=== PATIENT | male | born 1965 | race Caucasian/White ===

== ENCOUNTER → 2016-04-11 | Outpatient (CLI) | payer BC ==
[~2016-04-11] MED LIST: ALL300 PO; ATV1 PO; CLC/300 PO; COLC0.6T54 PO; CYAN10002 IM; CYCL10TA6 PO; CYNI1000 IM; DICY10CA12 PO; FAMO20TA9 PO; LPT10 PO; METO25TA56 PO; MORP1INJ INJ; MORP1INJ IT; ONDA4TAB4 PO; ONDA4TAB54 PO; OXYC-57 PO
--- NOTE | 2016-04-11 09:17 | DIAGNOSTIC IMAGING REPORT ---
MRI OF THE RIGHT SHOULDER WITHOUT CONTRAST CLINICAL HISTORY: Right shoulder pain. Evaluate for rotator cuff tear. COMPARISON STUDY: Right shoulder radiographs September 26, 2015. TECHNIQUE: Utilizing a 1.5 Genevieve magnet, multiplanar, multi echo imaging of the right shoulder was performed without intravenous or intra-articular contrast. FINDINGS: Alignment of the right shoulder is anatomic. There is no joint effusion. There is a small amount of fluid within the subacromial/subdeltoid bursa. There is moderate AC joint arthritis with joint space narrowing, osteophytosis and capsular hypertrophy. There is mild glenohumeral joint arthritis. There is tendinopathy with suspected partial thickness tear of the proximal long head of biceps tendon. There is a high-grade partial-thickness tear of distal supraspinatus. There is no tendon retraction or muscular atrophy. There is tendinopathy with a suspected mild partial thickness articular surface tear of distal infraspinatus. Teres minor is intact. There is tendinopathy of subscapularis with no full-thickness tear. There is a small amount of fluid within the subcoracoid bursa. The glenoid labrum is slightly truncated. No definite tear is identified on this nonarthrogram exam. IMPRESSION: 1. High-grade partial-thickness tear of distal supraspinatus. No tendon retraction or muscular atrophy. 2. Tendinopathy with suspected mild partial thickness articular surface tear of distal infraspinous. Tendinopathy of subscapularis. 3. Moderate AC joint arthritis and mild glenohumeral joint arthritis. 4. Suspected partial thickness tear of the proximal long head of the biceps tendon. Electronically signed by: Weston Driver M.D. 04/11/2016 9:15 AM
== END | disposition home or self-care (01) ==
LOC: C.MRIBC 07:58
PROVIDERS: ATTEND Orthopaedic Surgery
DX: S46.811A Strain of other muscles, fascia and tendons at shoulder and upper arm level, right arm, initial encounter (principal); X58.XXXA Exposure to other specified factors, initial encounter; M19.011 Primary osteoarthritis, right shoulder

== ENCOUNTER 2016-05-23 16:30 | Emergency (ER) | payer BC ==
[~2016-05-23] VITALS: Ht 190.5 cm; Wt 106.1 kg
[~2016-05-23 16:30] MED LIST changes: -ALL300 PO; -CLC/300 PO; -CYAN10002 IM; -CYCL10TA6 PO; -CYNI1000 IM; -MORP1INJ INJ; -ONDA4TAB4 PO; -ONDA4TAB54 PO
[2016-05-23 16:32] VITALS: TEMP 36.6; Ht 190.5 cm; Wt 106.1 kg
--- NOTE | 2016-05-23 17:12 | DIAGNOSTIC IMAGING REPORT ---
RIGHT KNEE 3 VIEWS CLINICAL HISTORY: right knee pain, swelling Right pain. Edema. COMPARISON: None DISCUSSION: Very small joint effusion. No significant fat fluid level. Moderate degenerative change all major joint compartments. There is no evidence for soft tissue swelling. IMPRESSION: Generalized degenerative change. Very small joint effusion. No acute bony abnormality. Electronically signed by: Brad Jones M.D. 05/23/2016 5:11 PM Dictated Date/Time: 05/23/2016 5:10 PM
--- NOTE | 2016-05-23 17:25 | EMERGENCY ROOM VISIT NOTE ---
ED Visit Note First contact with patient: 17:15 I have personally evaluated and examined this patient. I agree with assessment and plan of Annette Murillo PA-C. Right knee effusion. No known injury though admits that knee pops back regularly. No warmth, erythema nor pain. Not consistent with septic joint. No evidence DVT. History of septic joint and he notes this is nothing like that. Well connected with ortho and wishes to follow up with primary ortho doc. Discussed symptoms requiring RTED.
--- NOTE | 2016-05-23 17:29 | EMERGENCY ROOM VISIT NOTE ---
ED Visit Note First contact with patient: 16:39 CHIEF COMPLAINT: knee pain HISTORY OF PRESENT ILLNESS: This 51-year-old male patient presents to the emergency department ambulatory complaining of pain and swelling in the right knee. The patient states this has been ongoing for several days. The patient states that he is on his feet all day every day. The patient denies any other injuries besides their knee. The patient admits to swelling but denies bruising. There is pain diffusely over the knee. He states that the knee gives out on him frequently. They rate the pain as sharp and 3/10. The patient states they are able to walk on it. No numbness or tingling. No previous injuries to this knee. No ankle, foot or hip pain. REVIEW OF SYSTEMS: A 6 system review of systems was completed with positives and pertinent negatives listed in the HPI. ALLERGIES: See nursing notes MEDICATIONS: See nursing notes PMH: Hypertension, traumatic brain injury, gout, GERD SOCIAL HISTORY: The patient lives with family. He does not smoke PHYSICAL EXAM: Vital Signs: Reviewed Nurse's notes, vital signs stable. GENERAL : This is a 51-year-old male, no acute distress, but appears in pain, well- developed, well-nourished. MENTAL STATUS: Alert, oriented to person place and time, and cooperative. MUSCULOSKELETAL: The right knee is moderately swollen. There is no ecchymosis. There is moderate joint effusion present. The patient is tender diffusely over the knee. There is no joint line tenderness. The patella does not subluxate. Range of motion is intact. Strength of the quads and hamstrings is 5/5. Ector's is negative. Tavares's and Anterior Drawer tests are negative for obvious laxity. There is no obvious laxity with varus and valgus stressing. The foot and toes are warm and well-perfused. Dorsalis pedis pulse 2+. Sensation to pain and light touch is intact. Capillary refill less than 2 seconds. EMERGENCY DEPARTMENT COURSE: I examined the patient. X-rays of the right knee were reviewed by myself and read by radiology and reveal small joint effusion and arthritic change. There is no erythema, warmth, fever to suggest infection. There is no pain with joint loading. This may be related to a ligamentous injury or potentially secondary to arthritis. The patient sees Dr. Rose. He should contact the office tomorrow to schedule a follow-up appointment for further evaluation and management. An Sandeep wrap was placed on the knee. The patient was discharged home in good condition. The patient was also seen and examined by who agrees with the assessment and treatment plan. RIGHT KNEE 3 VIEWS CLINICAL HISTORY: right knee pain, swelling Right pain. Edema. COMPARISON: None DISCUSSION: Very small joint effusion. No significant fat fluid level. Moderate degenerative change all major joint compartments. There is no evidence for soft tissue swelling. IMPRESSION: Generalized degenerative change. Very small joint effusion. No acute bony abnormality. 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 (5) S/P appendectomy Status: Resolved (6) S/P cholecystectomy Permanent Comment: laparoscopic February 2011 [facility] [place] Status: Resolved (7) S/P exploratory laparotomy Permanent Comment: July 2010 [facility] [place] Status: Resolved (8) S/P gastric bypass Permanent Comment: mike en Y July 2010 [facility] [place] Status: Chronic (9) S/p knee ligament repair Status: Chronic (10) S/p lumbar spine surgery x 2 Status: Resolved Current/Historical Medications Scheduled Allopurinol (Allopurinol), 300 MG PO DAILY Atorvastatin (Atorvastatin Calcium), 10 MG PO DAILY Cyanocobalamin (Vitamin B-12 Inj), 1,000 MCG IM [id number] Cyclobenzaprine Hcl (Flexeril), 10 MG PO TID Dicyclomine Hcl (Dicyclomine Hcl), 10 MG PO QID Famotidine (Pepcid), 20 MG PO DAILY Morphine Sulfate (Morphine Sulfate), Unknown Dose IT UD Scheduled PRN Colchicine (Colchicine), 0.6 MG PO for gout Lorazepam (Lorazepam), 1 MG PO DAILY PRN for Anxiety Ondansetron Tab (Zofran), 4 MG PO TID PRN for Nausea Oxycodone/Acetaminophen 5MG/325MG (Percocet 5MG/325MG), 1 TABLET PO Q4H PRN for Pain Allergies Coded Allergies: Penicillins (Verified Allergy, Severe, SWELLING--HAD KEFLEX WITHOUT PROBLEM MULT TIMES, 12/05/15) SWELLING--HAD KEFLEX WITHOUT PROBLEM MULT TIMES PER DR ROBERTS [id number] ADM--AJ Erythromycin (Verified Allergy, Intermediate, HIVES, 12/05/15) Indomethacin (Verified Allergy, Intermediate, hives, 12/05/15) Ibuprofen (Verified Allergy, Unknown, unknown, 12/05/15) pt Ketorolac Tromethamine (Verified Adverse Reaction, Mild, nausea, 12/05/15) Vancomycin (Verified Adverse Reaction, Mild, OTHER, 12/05/15) Fentanyl (Verified Adverse Reaction, Unknown, did not tolerate per pt & , 12/05/15) Vital Signs Date Time Temp Pulse Resp B/P Pulse Ox O2 Delivery O2 Flow Rate FiO2 05/23/16 17:50 73 16 108/76 97 Room Air 05/23/16 16:32 36.6 91 20 137/77 93 Room Air Departure Information Impression Primary Impression: Knee effusion, right Dispostion Home / Self-Care Condition GOOD Referrals Arya Suarez M.D. (PCP) Arya Do V.,D.O. Patient Instructions ED Effusion Knee, My [facility] Additional Instructions Ice and elevate knee for swelling and pain. Wear sandeep wrap when up and about. Tylenol arthritis according to package instructions for pain. Follow-up with Orthopedics for further evaluation and treatment - call for appointment. Return with any redness, swelling, warmth, fevers
[2016-05-23 17:50] VITALS: BP 108/76; PULSE 73; O2SAT 97
[2016-05-23] MEDS ORDERED: CYAN10002 IM (19:05)
[2016-05-23] MEDS ORDERED: CYCL10TA6 PO (21:04)
[2016-05-23] MEDS ORDERED: ONDA4TAB4 PO (21:05)
[2016-05-23] MEDS ORDERED: ALL300 PO (21:42)
== END 2016-05-23 17:45 | disposition home or self-care (01) ==
LOC: C.EDB 16:31 → C.EDD 17:45
DX: M25.461 Effusion, right knee (principal); F41.9 Anxiety disorder, unspecified; M54.9 Dorsalgia, unspecified; G89.29 Other chronic pain; K21.9 Gastro-esophageal reflux disease without esophagitis; M10.9 Gout, unspecified; K57.92 Diverticulitis of intestine, part unspecified, without perforation or abscess without bleeding; Z87.442 Personal history of urinary calculi; Z98.84 Bariatric surgery status; Z79.899 Other long term (current) drug therapy

== ENCOUNTER 2016-12-26 20:16 | Emergency (ER) | payer OTHER, BC ==
[~2016-12-26] VITALS: Ht 190.5 cm; Wt 103.9 kg
[~2016-12-26 20:16] MED LIST changes: +ALL300 PO; +CYAN10002 IM; +CYCL10TA6 PO; -METO25TA56 PO; +ONDA4TAB4 PO
[2016-12-26 21:30] VITALS: TEMP 36.7; Ht 190.5 cm; Wt 103.9 kg
[2016-12-26] MEDS ORDERED: OXYCODONE/ACETAMINOPHEN 5-325 TAB PO ONE (22:45)
[2016-12-26] MEDS ORDERED: ONDA4TAB54 PO (23:08)
[2016-12-26] MEDS ORDERED: MORP1INJ INJ (23:08)
[2016-12-26] MEDS ORDERED: CYNI1000 IM (23:08)
--- NOTE | 2016-12-26 23:57 | EMERGENCY ROOM VISIT NOTE ---
History Report prepared by Tatiana: Gab Ervin Under the Supervision of: Dr. Claire Castaneda D.O. First contact with patient: 22:25 Chief Complaint: BACK PAIN Stated Complaint: BACK PAIN- WC History of Present Illness The patient is a 51 year old male who presents to the Emergency Room with complaints of constant back pain beginning 7 hours ago. He currently rates his discomfort a 5/10 in severity. The patient states that he stepped backwards and his right foot caught a tree root. He reports that he fell flat on his back downhill. The patient notes that he has a history of five back surgeries with several metal implants. He denies mental implants to his neck. The patient states that he also has a morphine pump in place. He reports that he has had it for several years, and it has not been changed. The patient notes that he has Percocet in the event that he needs more medication, but he has not taken anything extra for his current discomfort. He states that when he landed, he was extremely short of breath, and the sides of his neck felt tight. The patient reports that he was able to ambulate after his son helped him up. He denies hitting his head, abdominal pain around his pump, nausea, and numbness weakness in legs. Source of History: patient Onset: seven hours ago Position: back Symptom Intensity: 5/10 Timing: constant Associated Symptoms: + neck pain (tightness), + SOB, No nausea, No abdominal pain, No weakness, No numbness Note: Denies: hitting head Review of Systems See HPI for pertinent positives & negatives. A total of 10 systems reviewed and were otherwise negative. 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 (5) S/P appendectomy (6) S/P cholecystectomy (7) S/P exploratory laparotomy (8) S/P gastric bypass (9) S/p knee ligament repair (10) S/p lumbar spine surgery x 2 Family History Cardiac disorder MOTHER Diabetes mellitus FATHER MOTHER Heart disease Hypertension FATHER MOTHER Kidney disease Kidney stones Social History Smoking Status: Never Smoker Alcohol Use: occasionally Marital Status: Housing Status: lives with family Occupation Status: disabled Current/Historical Medications Scheduled Allopurinol (Allopurinol), 300 MG PO DAILY Atorvastatin (Atorvastatin Calcium), 10 MG PO DAILY Cyanocobalamin (Cyanocobalamin), 1,000 MCG IM Q3MO Cyclobenzaprine Hcl (Flexeril), 10 MG PO TID Dicyclomine Hcl (Dicyclomine Hcl), 10 MG PO QID Famotidine (Pepcid), 20 MG PO DAILY Morphine Sulfate (Morphine Sulfate), Unknown Dose INJ DIRECTED Scheduled PRN Colchicine (Colchicine), 0.6 MG PO for gout Lorazepam (Lorazepam), 1 MG PO DAILY PRN for Anxiety Ondansetron (Ondansetron HCl), 4 MG PO TID PRN for Nausea or Vomiting Oxycodone/Acetaminophen 5MG/325MG (Percocet 5MG/325MG), 1 TABLET PO Q4H PRN for Pain Allergies Coded Allergies: Penicillins (Verified Allergy, Severe, SWELLING--HAD KEFLEX WITHOUT PROBLEM MULT TIMES, 12/26/16) SWELLING--HAD KEFLEX WITHOUT PROBLEM MULT TIMES PER DR ROBERTS [id number] ADM--AJ Erythromycin (Verified Allergy, Intermediate, HIVES, 12/26/16) Indomethacin (Verified Allergy, Intermediate, hives, 12/26/16) Ibuprofen (Verified Allergy, Unknown, unknown, 12/26/16) pt Ketorolac Tromethamine (Verified Adverse Reaction, Mild, nausea, 12/26/16) Vancomycin (Verified Adverse Reaction, Mild, OTHER, 12/26/16) Fentanyl (Verified Adverse Reaction, Unknown, did not tolerate per pt & , 12/26/16) Physical Exam Vital Signs Date Time Temp Pulse Resp B/P (MAP) Pulse Ox O2 Delivery O2 Flow Rate FiO2 12/27/16 00:19 61 17 129/76 99 12/26/16 23:13 62 18 128/71 100 Room Air 12/26/16 21:30 36.7 73 20 136/82 100 Room Air Physical Exam HEENT: Head - normocephalic and atraumatic Pupils are equal, round, and reactive to light. Extraocular eye muscles are intact, and sclera are anicteric. Nose - moist nasal mucosa without discharge. Mouth - moist buccal mucosa. Oropharynx is nonerythematous and there is no tonsillar exudate or edema noted. Neck: Supple; no JVD, nuchal rigidity, cervical lymphadenopathy. Heart: Regular rate and rhythm. There is a normal S1 and S2 with no murmurs, clicks, or gallops appreciated. Lungs: Clear to auscultation bilaterally with no wheezes, rales, or rhonchi. Abdomen: Soft, completely nontender, nondistended, with good bowel sounds. There are no palpable pulsatile masses or hepatosplenomegaly. There is no guarding, rigidity, or rebound noted. Back: Surgical incision appears normal, no specific tenderness to palpation. Extremities: No evidence of cyanosis, clubbing, or edema. There are easily palpable peripheral pulses. Skin: warm and dry with good turgor and no rashes. Medical Decision & Procedures ER Provider Diagnostic Interpretation: CT results as stated below per my review and radiologist interpretation: CT T Spine: No acute fracture. Hardware in the lumbar spine. Degenerative changes in spine. Nephrolithiasis. Cholecystectomy Gastric Bypass. Old granulomatous disease. Spinal catheter/lead. Radiologist: Tory Lanier MD Study ready at 2311 and initial results transmitted at 1969. Medications Administered Medications (Trade) Dose Ordered Sig/Antoinette Route Start Time Stop Time Status Last Admin Dose Admin Oxycodone/ Acetaminophen (Percocet 5-325mg Tab) 2 tab NOW ONCE PO 12/26/16 22:45 12/26/16 22:46 DC 12/26/16 22:43 2 TAB Procedure 2245: Ordered Oxycodone/Acetaminophen 2 tab PO ED Course 2225: Past medical records reviewed. The patient was evaluated in room A12B. A complete history and physical exam was performed. 224: Ordered Oxycodone/Acetaminophen 2 tab PO. The patient went for CT scanning of the thoracic spine as described above. 0005: Upon reevaluation, the patient is resting and only felt slightly better with the Percocet. He states that he does not want anything else for pain. I discussed findings and results with him. He verbalized agreement of the treatment plan. The patient was discharged home. Medical Decision The patient is a 51 year old male who presents to the ED with back pain. Differential diagnosis includes dislodged intrathecal pump, thoracic strain, thoracic spinal fracture. This is a 51 -year-old male patient with a long-standing history of back problems and multiple surgeries. Unfortunately, he suffered a fall backwards onto the back and is now having moderate discomfort. The patient's is concerned that his intrathecal pain pump may have been dislodged as a result of the fall. CT scan of the thoracic spine was essentially unremarkable. Head Trauma GCS Score: 15 Impression Primary Impression: Fall Additional Impression: Mid back pain Scribe Attestation The scribe's documentation has been prepared under my direction and personally reviewed by me in its entirety. I confirm that the note above accurately reflects all work, treatment, procedures, and medical decision making performed by me. Departure Information Dispostion Home / Self-Care Referrals Arya Suarez M.D. (PCP) Forms HOME CARE DOCUMENTATION FORM, IMPORTANT VISIT INFORMATION Patient Instructions My [facility] Additional Instructions Rest. You will be sore. Use percocet as directed. Follow up with docs in [facility] if pain persists Problem Qualifiers Primary Impression: Fall Encounter type: initial encounter Qualified Codes: W19.XXXA - Unspecified fall, initial encounter
[2016-12-27 00:19] VITALS: BP 129/76; PULSE 61; O2SAT 99
--- NOTE | 2016-12-27 08:38 | DIAGNOSTIC IMAGING REPORT ---
CT SCAN OF THE THORACIC SPINE WITHOUT IV CONTRAST CLINICAL HISTORY: Trauma. Intrathecal pump catheter. COMPARISON STUDY: CT scan of the thoracic spine dated 07/14/2014. TECHNIQUE: CT scan of the thoracic spine is performed from the lower cervical spine to the upper lumbar spine. Images are reviewed in the axial, sagittal, and coronal planes. IV contrast was not administered for this examination. A dose lowering technique was utilized adhering to the principles of ALARA. CT DOSE: 1096.25 mGy.cm FINDINGS: The skeletal structures are osteopenic. Vertebral body height and alignment are maintained throughout the lumbar spine. There is no evidence of acute fracture or malalignment. The transverse and spinous processes appear intact. Flowing anterior osteophytes are seen in the mid to lower thoracic region. There is a chronic compression deformity of L1. Fusion hardware in the lumbar spine is partially imaged. No lytic or blastic lesions are identified. The visualized posterior ribs appear intact. Intervertebral disc spaces appear maintained. There is no evidence of large disc herniation. Posterior disc bulges are suggested at T1-T2, T4-T5, T5-T6, T6-T7, and T7-T8. There is no CT evidence of high-grade central canal stenosis. An intrathecal catheter is partially visualized. This enters the central canal posteriorly on the left at the level of L1 and courses superiorly to the level of T10. The catheter is intact as visualized. The paraspinous soft tissues are normal as imaged. Cholecystectomy clips are noted and postoperative changes seen in the stomach. There is a tiny hiatal hernia. Bilateral nonobstructing renal calculi are identified. There is a calcified splenic granuloma. Numerous calcified pulmonary granulomas are identified. The lung parenchyma is otherwise clear as imaged. The heart is enlarged. IMPRESSION: 1. There is no evidence of fracture or malalignment involving the thoracic spine. 2. Osteopenia and mild degenerative change as above. 3. An intrathecal catheter is again noted and detailed above. The catheter is intact as visualized. 4. Numerous bilateral nonobstructing renal calculi are identified. Dictated: 12/27/2016 7:18 AM Transcribed: 12/27/2016 8:44 AM [facility] Electronically signed by: Tamir Brunson M.D. 12/27/2016 8:51 AM Dictated Date/Time: 12/27/2016 7:18 AM
== END 2016-12-27 00:19 | disposition home or self-care (01) ==
LOC: C.EDB 20:17 → C.EDA 12-27 00:19
DX: M54.6 Pain in thoracic spine (principal); M54.2 Cervicalgia; R06.02 Shortness of breath; F41.9 Anxiety disorder, unspecified; I10 Essential (primary) hypertension; K21.9 Gastro-esophageal reflux disease without esophagitis; Z79.899 Other long term (current) drug therapy; Z97.8 Presence of other specified devices; Z87.19 Personal history of other diseases of the digestive system; Z87.442 Personal history of urinary calculi; W01.0XXA Fall on same level from slipping, tripping and stumbling without subsequent striking against object, initial encounter; Z82.49 Family history of ischemic heart disease and other diseases of the circulatory system; Z83.3 Family history of diabetes mellitus; Z84.1 Family history of disorders of kidney and ureter

== ENCOUNTER 2017-02-03 06:55 | Emergency (ER) | payer BC, OTHER ==
[~2017-02-03] VITALS: Ht 190.5 cm; Wt 103.9 kg
[~2017-02-03 06:55] MED LIST changes: -CYAN10002 IM; +CYNI1000 IM; +MORP1INJ INJ; -MORP1INJ IT; -ONDA4TAB4 PO; +ONDA4TAB54 PO
[2017-02-03 07:00] VITALS: TEMP 36.8; Ht 190.5 cm; Wt 103.9 kg
[2017-02-03] MEDS ORDERED: LIDOCAINE HCL 2% JELLY 30 ML TUBE EXT ONE (07:29)
[2017-02-03] MEDS ORDERED: SODIUM CHLORIDE 0.9% 1000ML 1,000 ML IV STA (07:30)
[2017-02-03] MEDS ORDERED: LIDOCAINE HCL 2% JELLY 30 ML TUBE EXT STA (07:30)
--- NOTE | 2017-02-03 07:33 | EMERGENCY ROOM VISIT NOTE ---
History Report prepared by Tatiana: Danya Baumann Under the Supervision of: Dr. Jillian Loving M.D. First contact with patient: 07:05 Chief Complaint: KIDNEY STONE Stated Complaint: KIDNEY STONE, UNABLE TO URINATE History of Present Illness The patient is a 51 year old male who presents to the Emergency Room with complaints of persistent difficulty urinating that began this morning. He currently rates his discomfort as a 6/10 in severity. The patient states that he has a history of kidney stones, noting that he last passed several a few months ago. He states that yesterday he passed three stones without pain. The patient states that this morning he developed discomfort in his penis and notes that it feels similar to his previous kidney stones. He states that it feels like he has a stone stuck in his penis and states that it feels like his bladder is full. The patient's states that the patient has a history of a stent to help pass his stones. She states that the patient follows with [facility]. Source of History: patient, spouse/significant other () Onset: this morning Position: other (global) Symptom Intensity: 6/10 Quality: other (difficulty urinating) Timing: other (persistent) Review of Systems See HPI for pertinent positives & negatives. A total of 10 systems reviewed and were otherwise negative. 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 (5) S/P appendectomy (6) S/P cholecystectomy (7) S/P exploratory laparotomy (8) S/P gastric bypass (9) S/p knee ligament repair (10) S/p lumbar spine surgery x 2 Family History Cardiac disorder MOTHER Diabetes mellitus FATHER MOTHER Heart disease Hypertension FATHER MOTHER Kidney disease Kidney stones Social History Smoking Status: Never Smoker Alcohol Use: occasionally Marital Status: Housing Status: lives with family Occupation Status: disabled Current/Historical Medications Scheduled Allopurinol (Allopurinol), 300 MG PO DAILY Atorvastatin (Atorvastatin Calcium), 10 MG PO DAILY Clindamycin HCl (Clindamycin HCl), 300 MG PO TID Cyanocobalamin (Cyanocobalamin), 1,000 MCG IM Q3MO Cyclobenzaprine Hcl (Flexeril), 10 MG PO TID Dicyclomine Hcl (Dicyclomine Hcl), 10 MG PO QID Famotidine (Pepcid), 20 MG PO DAILY Morphine Sulfate (Morphine Sulfate), Unknown Dose INJ DIRECTED Scheduled PRN Colchicine (Colchicine), 0.6 MG PO for gout Lorazepam (Lorazepam), 1 MG PO DAILY PRN for Anxiety Ondansetron (Ondansetron HCl), 4 MG PO TID PRN for Nausea or Vomiting Oxycodone/Acetaminophen 5MG/325MG (Percocet 5MG/325MG), 1 TABLET PO Q4H PRN for Pain Allergies Coded Allergies: Penicillins (Verified Allergy, Severe, SWELLING--HAD KEFLEX WITHOUT PROBLEM MULT TIMES, 02/03/17) SWELLING--HAD KEFLEX WITHOUT PROBLEM MULT TIMES PER DR ROBERTS [id number] ADM--AJ Erythromycin (Verified Allergy, Intermediate, HIVES, 02/03/17) Indomethacin (Verified Allergy, Intermediate, hives, 02/03/17) Ibuprofen (Verified Allergy, Unknown, unknown, 02/03/17) pt Ketorolac Tromethamine (Verified Adverse Reaction, Mild, nausea, 02/03/17) Vancomycin (Verified Adverse Reaction, Mild, OTHER, 02/03/17) Fentanyl (Verified Adverse Reaction, Unknown, did not tolerate per pt & , 02/03/17) Physical Exam Vital Signs Date Time Temp Pulse Resp B/P (MAP) Pulse Ox O2 Delivery O2 Flow Rate FiO2 02/03/17 10:46 69 12 131/78 97 02/03/17 09:05 58 16 143/79 99 02/03/17 07:00 36.8 79 18 150/85 98 Room Air Physical Exam Vital signs reviewed. General: Well-appearing male, in no significant distress. HEENT: No scleral icterus, PERRLA, neck supple. Atraumatic. Cardiovascular: Regular rate and rhythm, no extra sounds. Pulmonary: Clear to auscultation bilaterally, normal work of breathing. Abdomen: Soft, nontender, nondistended, positive bowel sounds. : Palpable stone approximately 2 cm from the tip of the penis, tender. Musculoskeletal: Atraumatic, no peripheral edema. Neurologic: Patient awake alert and oriented x 3, full strength in all 4 extremities. Cranial nerves 2 through 12 grossly intact. Skin: Warm, dry, no rash Medical Decision & Procedures ER Provider Diagnostic Interpretation: Radiology results as stated below per my review and radiologist interpretation: KUB CLINICAL HISTORY: Flank pain. Dysuria. FINDINGS: 2 AP supine abdominal radiographs are correlated with abdominal CT dated 10/15/2015. There is a nonobstructed abdominal bowel gas pattern. Moderate constipation is observed. There are numerous bilateral nonobstructing renal calculi. Stones measure up to 12 mm. There is no radiographic evidence of ureteral stone. Cholecystectomy clips are identified in the right upper quadrant. A neurostimulator device projects over the left lower abdomen. The skeletal structures are osteopenic. There is evidence of lumbar spinal fusion. IMPRESSION: 1. Nonobstructed abdominal bowel gas pattern noting moderate constipation. 2. Bilateral nonobstructing renal calculi are identified. There is no radiographic evidence of ureteral stone. Electronically signed by: Tamir Brunson M.D. 02/03/2017 8:23 AM Dictated Date/Time: 02/03/2017 8:19 AM EXAMINATION: RENAL ULTRASOUND CLINICAL HISTORY: Difficulty urinating, flank pain, penile pain. COMPARISON STUDY: CT scan dated 10/15/2015 FINDINGS: The right kidney measures 12.2 cm. The left kidney measures 10.9 cm. There is no evidence of hydronephrosis. There are multiple bilateral echogenic shadowing foci consistent with calculi. The largest measures 12 mm the right and 10 mm and the left. No bladder abnormalities are visualized. Bilateral ureteral jets were visualized. IMPRESSION : 1. Bilateral nephrolithiasis 2. No evidence of hydronephrosis Electronically signed by: Ismael Doran M.D. 02/03/2017 8:36 AM Dictated Date/Time: 02/03/2017 8:35 AM Laboratory Results 02/03/17 07:15 Red Blood Count 4.07, Mean Corpuscular Volume 83.5, Mean Corpuscular Hemoglobin 27.0, Mean Corpuscular Hemoglobin Concent 32.4, Mean Platelet Volume 9.8, Neutrophils (%) (Auto) 45.8, Lymphocytes (%) (Auto) 38.6, Monocytes (%) (Auto) 10.1, Eosinophils (%) (Auto) 4.9, Basophils (%) (Auto) 0.4, Neutrophils # (Auto ) 2.23, Lymphocytes # (Auto) 1.88, Monocytes # (Auto) 0.49, Eosinophils # (Auto ) 0.24, Basophils # (Auto) 0.02 02/03/17 07:15 Test 02/03/17 07:15 02/03/17 09:10 White Blood Count 4.87 K/uL (4.8-10.8) Red Blood Count 4.07 M/uL (4.7-6.1) Hemoglobin 11.0 g/dL (14.0-18.0) Hematocrit 34.0 % (42-52) Mean Corpuscular Volume 83.5 fL (80-100) Mean Corpuscular Hemoglobin 27.0 pg (25-34) Mean Corpuscular Hemoglobin Concent 32.4 g/dl (32-36) Platelet Count 208 K/uL (130-400) Mean Platelet Volume 9.8 fL (7.4-10.4) Neutrophils (%) (Auto) 45.8 % Lymphocytes (%) (Auto) 38.6 % Monocytes (%) (Auto) 10.1 % Eosinophils (%) (Auto) 4.9 % Basophils (%) (Auto) 0.4 % Neutrophils # (Auto) 2.23 K/uL (1.4-6.5) Lymphocytes # (Auto) 1.88 K/uL (1.2-3.4) Monocytes # (Auto) 0.49 K/uL (0.11-0.59) Eosinophils # (Auto) 0.24 K/uL (0-0.5) Basophils # (Auto) 0.02 K/uL (0-0.2) RDW Standard Deviation 47.6 fL (36.4-46.3) RDW Coefficient of Variation 15.4 % (11.5-14.5) Immature Granulocyte % (Auto) 0.2 % Immature Granulocyte # (Auto) 0.01 K/uL (0.00-0.02) Anion Gap 7.0 mmol/L (3-11) Est Creatinine Clear Calc Drug Dose 118.6 ml/min Estimated GFR () 106.9 Estimated GFR (Non- 92.2 BUN/Creatinine Ratio 10.2 (10-20) Calcium Level 9.0 mg/dl (8.5-10.1) Total Bilirubin 0.7 mg/dl (0.2-1) Direct Bilirubin 0.2 mg/dl (0-0.2) Aspartate Amino Transf (AST/SGOT) 23 U/L (15-37) Alanine Aminotransferase (ALT/SGPT) 16 U/L (12-78) Alkaline Phosphatase 122 U/L (45-117) Total Protein 7.5 gm/dl (6.4-8.2) Albumin 4.0 gm/dl (3.4-5.0) Urine Color YELLOW Urine Appearance CLEAR (CLEAR) Urine pH 7.0 (4.5-7.5) Urine Specific Parsons 1.011 (1.000-1.030) Urine Protein NEG (NEG) Urine Glucose (UA) NEG (NEG) Urine Ketones NEG (NEG) Urine Occult Blood 2+ (NEG) Urine Nitrite NEG (NEG) Urine Bilirubin NEG (NEG) Urine Urobilinogen NEG (NEG) Urine Leukocyte Esterase NEG (NEG) Urine WBC (Auto) 1-5 /hpf (0-5) Urine RBC (Auto) 10-30 /hpf (0-4) Urine Hyaline Casts (Auto) 0 /lpf (0-5) Urine Epithelial Cells (Auto) 0-5 /lpf (0-5) Urine Bacteria (Auto) NEG (NEG) Laboratory results per my review. Medications Administered Medications (Trade) Dose Ordered Sig/Antoinette Route Start Time Stop Time Status Last Admin Dose Admin Lidocaine HCl (Xylocaine Jelly 2%) 30 ml STMy Fashion Database-MED ONCE EXT 02/03/17 07:29 02/03/17 07:30 DC 02/03/17 07:29 30 ML Sodium Chloride 1,000 ml @ 999 mls/hr Q1H1M STAT IV 02/03/17 07:30 02/03/17 08:30 DC 02/03/17 07:30 999 MLS/HR Morphine Sulfate (MoRPHine SULFATE INJ) 4 mg NOW STAT IV 02/03/17 09:22 02/03/17 09:24 DC 02/03/17 09:38 4 MG Ondansetron HCl (Zofran Inj) 4 mg NOW STAT IV 02/03/17 09:22 02/03/17 09:24 DC 02/03/17 09:38 4 MG ED Course 0718: Past medical records reviewed. The patient was evaluated in room A10. A complete history and physical examination was performed. 0729: Ordered Lidocaine HCl 30 ml EXT, Sodium Chloride 1000 ml @ 999 mls/hr IV. 0922: Ordered Zofran Inj 4 mg IV, Morphine Sulfate 4 mg IV. 1047: I reevaluated the patient and he is resting comfortably. I discussed the exam findings with him and I discussed the treatment plan. He verbalized complete understanding and agreement. He is ready to go home. Medical Decision The patient is a 51 year old male who presents to the ED with complaints of difficulty urinating. Differentials include UTI, urinary obstruction, retained stone, trauma This patient was evaluated and appeared to be in no significant distress. IV access was obtained and laboratory work was drawn. The patient was placed on the hr recruiter and found be in a normal sinus rhythm. He was hydrated with normal saline solution. The patient was given lidocaine jelly for the stone that he believes is in the penis. The patient was able to urinate without significant difficulty. Laboratory work is fairly unrevealing. Imaging studies reveal renal calculi without evidence of obstruction. Patient was advised to use ibuprofen as needed for pain. He will continue to drink plenty of fluids. He will follow-up with urology for continued symptoms. He will return to the ER for worsening of symptoms or any medical concerns. Medication Reconcilliation Current Medication List: was personally reviewed by me Blood Pressure Screening Patient's blood pressure: Elevated blood pressure Blood pressure disposition: Elevated BP felt to be situational, Did not require urgent referral Impression Primary Impression: Ureteral colic Additional Impression: Kidney stone Scribe Attestation The scribe's documentation has been prepared under my direction and personally reviewed by me in its entirety. I confirm that the note above accurately reflects all work, treatment, procedures, and medical decision making performed by me. Departure Information Dispostion Home / Self-Care Referrals Arya Suarez M.D. (PCP) Olena Cardoso MD Forms HOME CARE DOCUMENTATION FORM, IMPORTANT VISIT INFORMATION Patient Instructions My [facility] Additional Instructions Diagnosis: Kidney stone, ureteral colic Please drink plenty of clear fluids. Follow-up with your primary care physician this week for reevaluation. Consider follow-up with Dr. Cardoso of urology, please see information below. Ibuprofen 600 mg every 6 hours as needed for pain with food. Return to the emergency department for worsening of symptoms or any medical concerns. Problem Qualifiers
[2017-02-03 07:36] LABS: BASO % 0.4 %; BASO ABS # 0.02 K/uL (0-0.2); COMPLETE YES; EOS % 4.9 %; IG% 0.2 %; LYMPH % 38.6 %; LYMPH ABS # 1.88 K/uL (1.2-3.4); MEAN CELL VOLUME 83.5 fL (80-100); MEAN CORPUSCULAR HGB CONC 32.4 g/dl (32-36); MEAN PLATELET VOLUME 9.8 fL (7.4-10.4); MONO % 10.1 %; NEUT % 45.8 %; PLATELET COUNT 208 K/uL (130-400); RED BLOOD COUNT 4.07 M/uL (4.7-6.1); WHITE BLOOD COUNT 4.87 K/uL (4.8-10.8)
[2017-02-03 07:43] LABS: BUN/CREATININE RATIO 10.2 (10-20); CREATININE 0.94 mg/dl (0.60-1.40); POTASSIUM 3.7 mmol/L (3.5-5.1)
--- NOTE | 2017-02-03 08:25 | DIAGNOSTIC IMAGING REPORT ---
KUB CLINICAL HISTORY: Flank pain. Dysuria. FINDINGS: 2 AP supine abdominal radiographs are correlated with abdominal CT dated 10/15/2015. There is a nonobstructed abdominal bowel gas pattern. Moderate constipation is observed. There are numerous bilateral nonobstructing renal calculi. Stones measure up to 12 mm. There is no radiographic evidence of ureteral stone. Cholecystectomy clips are identified in the right upper quadrant. A neurostimulator device projects over the left lower abdomen. The skeletal structures are osteopenic. There is evidence of lumbar spinal fusion. IMPRESSION: 1. Nonobstructed abdominal bowel gas pattern noting moderate constipation. 2. Bilateral nonobstructing renal calculi are identified. There is no radiographic evidence of ureteral stone. Electronically signed by: Tamir Brunson M.D. 02/03/2017 8:23 AM Dictated Date/Time: 02/03/2017 8:19 AM
[2017-02-03] MEDS ORDERED: CLC/300 PO (08:32)
--- NOTE | 2017-02-03 08:38 | DIAGNOSTIC IMAGING REPORT ---
EXAMINATION: RENAL ULTRASOUND CLINICAL HISTORY: Difficulty urinating, flank pain, penile pain. COMPARISON STUDY: CT scan dated 10/15/2015 FINDINGS: The right kidney measures 12.2 cm. The left kidney measures 10.9 cm. There is no evidence of hydronephrosis. There are multiple bilateral echogenic shadowing foci consistent with calculi. The largest measures 12 mm the right and 10 mm and the left. No bladder abnormalities are visualized. Bilateral ureteral jets were visualized. IMPRESSION : 1. Bilateral nephrolithiasis 2. No evidence of hydronephrosis Electronically signed by: Ismael Doran M.D. 02/03/2017 8:36 AM Dictated Date/Time: 02/03/2017 8:35 AM
[2017-02-03 09:22] LABS: URINE APPEARANCE CLEAR (CLEAR); URINE BILIRUBIN NEG (NEG); URINE COLOR YELLOW; URINE EPITHELIAL CELL AUTO 0-5 /lpf (0-5); URINE NITRITE NEG (NEG); URINE SPECIFIC GRAVITY 1.011 (1.000-1.030); UROBILINOGEN NEG (NEG); ZZUR CULT IF INDIC CLEAN CATCH NO
[2017-02-03] MEDS ORDERED: MoRPHine SULFATE 4 MG/ML 1 ML CARP\\VIAL IV STA (09:22)
[2017-02-03] MEDS ORDERED: ONDANSETRON INJ 2 MG/ML 2 ML VIAL IV STA (09:22)
[2017-02-03 09:26] LABS: MANUAL MICROSCOPIC REQUIRED? NO; REVIEW REQ? NO
[2017-02-03 10:46] VITALS: BP 131/78; PULSE 69; O2SAT 97
== END 2017-02-03 11:06 | disposition home or self-care (01) ==
LOC: C.EDB 06:56 → C.EDA 11:06
DX: N20.0 Calculus of kidney (principal); N23 Unspecified renal colic; R30.0 Dysuria

== ENCOUNTER 2017-05-25 08:44 | Emergency (ER) | payer BC ==
[~2017-05-25] VITALS: Ht 190.5 cm; Wt 100.8 kg
[~2017-05-25 08:44] MED LIST changes: -ALL300 PO; +CLC/300 PO; -CYNI1000 IM; -LPT10 PO; -MORP1INJ INJ; -OXYC-57 PO
--- NOTE | 2017-05-25 09:09 | EMERGENCY ROOM VISIT NOTE ---
History Report prepared by Tatiana: Jayden Pham Under the Supervision of: Dr. Stefan Cuadra M.D. First contact with patient: 09:00 Chief Complaint: CHEST PAIN Stated Complaint: BURNING PAIN IN CHEST History of Present Illness The patient is a 52 year old male who presents to the Emergency Room with complaints of intermittent left-sided chest pain that started upon waking around 2 hours ago this morning. He states that he does not have the pain right now. He describes the pain as a burning. The patient states that nothing in particular seems to bring the pain on. Per the patient's , the patient was having problems with chest pain a couple years ago, and was seen by Dr. Joy , and was put on Lipitor for calcium buildup that was found by a heart catheterization done 2 years ago. The patient did not have stents put in. He says that he has never smoked, and is not a diabetic. He denies any recent heavy lifting. Source of History: patient, spouse/significant other Onset: 2 hours ago Position: chest (left) Symptom Intensity: does not currently have the pain Quality: burning Timing: intermittent Note: Denies recent heavy lifting. Review of Systems See HPI for pertinent positives & negatives. A total of 10 systems reviewed and were otherwise negative. 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 (5) S/P appendectomy (6) S/P cholecystectomy (7) S/P exploratory laparotomy (8) S/P gastric bypass (9) S/p knee ligament repair (10) S/p lumbar spine surgery x 2 Family History Cardiac disorder MOTHER Diabetes mellitus FATHER MOTHER Heart disease Hypertension FATHER MOTHER Kidney disease Kidney stones Social History Smoking Status: Never Smoker Alcohol Use: occasionally Marital Status: Housing Status: lives with family Occupation Status: disabled Current/Historical Medications Scheduled Allopurinol (Allopurinol), 300 MG PO DAILY Atorvastatin (Lipitor), 10 MG PO DAILY Cyanocobalamin (Cyanocobalamin), 1,000 MCG IM Q3MO Dicyclomine Hcl (Dicyclomine Hcl), 10 MG PO TID Famotidine (Pepcid), 20 MG PO BID Ferrous Sulfate (Ferrous Sulfate), 1 TAB PO BID Morphine Sulfate (Morphine Sulfate), Unknown Dose INJ DIRECTED Multivitamins/Minerals (Mvi With Minerals), 1 TAB PO DAILY Scheduled PRN Colchicine (Colchicine), 0.6 MG PO for gout Cyclobenzaprine Hcl (Flexeril), 10 MG PO TID PRN for spasms Lorazepam (Lorazepam), 1 MG PO TID PRN for Anxiety Oxycodone/Acetaminophen 5MG/325MG (Percocet 5MG/325MG), 1 TABLET PO Q4H PRN for Pain Allergies Coded Allergies: Penicillins (Verified Allergy, Severe, SWELLING--HAD KEFLEX WITHOUT PROBLEM MULT TIMES, 05/25/17) SWELLING--HAD KEFLEX WITHOUT PROBLEM MULT TIMES PER DR ROBERTS [id number] ADM--AJ Erythromycin (Verified Allergy, Intermediate, HIVES, 05/25/17) Indomethacin (Verified Allergy, Intermediate, hives, 05/25/17) Ibuprofen (Verified Allergy, Unknown, unknown, 05/25/17) pt Ketorolac Tromethamine (Verified Adverse Reaction, Mild, nausea, 05/25/17) Vancomycin (Verified Adverse Reaction, Mild, OTHER, 05/25/17) Fentanyl (Verified Adverse Reaction, Unknown, did not tolerate per pt & , 05/25/17) Physical Exam Vital Signs Date Time Temp Pulse Resp B/P (MAP) Pulse Ox O2 Delivery O2 Flow Rate FiO2 05/25/17 12:18 61 141/95 100 Nasal Cannula 2.0 05/25/17 11:50 100 Nasal Cannula 2.0 05/25/17 10:54 71 17 139/97 100 Nasal Cannula 2.0 05/25/17 10:00 56 17 146/93 100 Nasal Cannula 2.0 05/25/17 09:30 61 05/25/17 09:26 100 Nasal Cannula 2.0 05/25/17 09:25 100 Nasal Cannula 2.0 05/25/17 09:17 Room Air 05/25/17 08:55 36.8 64 18 169/88 100 Room Air Physical Exam GENERAL: Patient is a pale-appearing well-nourished 52 year old male. HEAD: Normocephalic atraumatic EYES: Ocular movements intact pupils equal and react to light OROPHARYNX mucous membranes are moist no exudates present no erythema or edema present NECK: Supple no nuchal rigidity CHEST: Good equal expansion LUNGS: Clear and equal to auscultation CARDIAC: Normal S1 and S2 ABDOMEN: Soft nontender no guarding BACK: No CVA tenderness EXTREMITIES: No pain upon palpation normal muscle strength in all groups no clubbing cyanosis or edema NEURO: Patient is following commands and answering questions appropriately. Alert and oriented x3 Cranial Nerves 2-12 grossly intact Medical Decision & Procedures ER Provider Diagnostic Interpretation: X-ray results as stated below per interpretation by me and the radiologist: CHEST ONE VIEW PORTABLE CLINICAL HISTORY: Chest pain. COMPARISON STUDY: Chest radiograph December 05, 2015. FINDINGS: Lung volumes are normal. There is no pneumothorax or pleural effusion. There is no consolidation to suggest pneumonia. Pulmonary vascularity is normal. Cardiomediastinal silhouette is unremarkable. IMPRESSION: No acute cardiopulmonary findings. Electronically signed by: Weston Driver M.D. 05/25/2017 9:33 AM Dictated Date/Time: 05/25/2017 9:32 AM Laboratory Results 05/25/17 09:10 Red Blood Count 4.29, Mean Corpuscular Volume 82.8, Mean Corpuscular Hemoglobin 26.6, Mean Corpuscular Hemoglobin Concent 32.1, Mean Platelet Volume 9.2, Neutrophils (%) (Auto) 51.8, Lymphocytes (%) (Auto) 36.8, Monocytes (%) (Auto) 8.3, Eosinophils (%) (Auto) 2.9, Basophils (%) (Auto) 0.2, Neutrophils # (Auto) 2.32, Lymphocytes # (Auto) 1.65, Monocytes # (Auto) 0.37, Eosinophils # (Auto) 0.13, Basophils # (Auto) 0.01 05/25/17 09:10 Test 05/25/17 09:10 05/25/17 09:17 White Blood Count 4.48 K/uL (4.8-10.8) Red Blood Count 4.29 M/uL (4.7-6.1) Hemoglobin 11.4 g/dL (14.0-18.0) Hematocrit 35.5 % (42-52) Mean Corpuscular Volume 82.8 fL (80-100) Mean Corpuscular Hemoglobin 26.6 pg (25-34) Mean Corpuscular Hemoglobin Concent 32.1 g/dl (32-36) Platelet Count 182 K/uL (130-400) Mean Platelet Volume 9.2 fL (7.4-10.4) Neutrophils (%) (Auto) 51.8 % Lymphocytes (%) (Auto) 36.8 % Monocytes (%) (Auto) 8.3 % Eosinophils (%) (Auto) 2.9 % Basophils (%) (Auto) 0.2 % Neutrophils # (Auto) 2.32 K/uL (1.4-6.5) Lymphocytes # (Auto) 1.65 K/uL (1.2-3.4) Monocytes # (Auto) 0.37 K/uL (0.11-0.59) Eosinophils # (Auto) 0.13 K/uL (0-0.5) Basophils # (Auto) 0.01 K/uL (0-0.2) RDW Standard Deviation 51.3 fL (36.4-46.3) RDW Coefficient of Variation 17.0 % (11.5-14.5) Immature Granulocyte % (Auto) 0.0 % Immature Granulocyte # (Auto) 0.00 K/uL (0.00-0.02) Anion Gap 6.0 mmol/L (3-11) Est Creatinine Clear Calc Drug Dose 128.9 ml/min Estimated GFR () 113.9 Estimated GFR (Non- 98.3 BUN/Creatinine Ratio 8.3 (10-20) Calcium Level 8.7 mg/dl (8.5-10.1) Total Bilirubin 1.1 mg/dl (0.2-1) Direct Bilirubin 0.3 mg/dl (0-0.2) Aspartate Amino Transf (AST/SGOT) 26 U/L (15-37) Alanine Aminotransferase (ALT/SGPT) 23 U/L (12-78) Alkaline Phosphatase 126 U/L (45-117) Total Creatine Kinase 104 U/L (39-308) Creatine Kinase MB 1.4 ng/ml (0.5-3.6) Creatine Kinase MB Ratio 1.3 (0-3.0) Troponin I < 0.015 ng/ml (0-0.045) Total Protein 7.1 gm/dl (6.4-8.2) Albumin 3.9 gm/dl (3.4-5.0) Lipase 89 U/L (73-393) Bedside D-Dimer 427 ng/mlFEU (0-450) Bedside Troponin I < 0.030 ng/ml (0-0.045) Labs reviewed by ED physician. Medications Administered Medications (Trade) Dose Ordered Sig/Antoinette Route Start Time Stop Time Status Last Admin Dose Admin Aspirin (Aspirin Chew) 324 mg NOW STAT PO 05/25/17 09:11 05/25/17 09:13 DC 05/25/17 09:23 324 MG Potassium Chloride (Jessica Ciel Elix) 40 meq NOW STAT PO 05/25/17 10:40 05/25/17 10:41 DC 05/25/17 10:54 40 MEQ ECG Per My Interpretation Indication: chest pain Rate (beats per minute): 55 Rhythm: normal sinus Findings: RBBB, other (no ST elevation or depression) ED Course 0903: Past medical records reviewed. The patient was evaluated in room A9B. A complete history and physical examination was performed. 0911: Ordered Aspirin Chew 324 mg PO. 1040: Ordered Jessica Ciel Elix 40 meq PO. 1133: I discussed the patient's case with Dr. Sukhi [facility] hospitalist, he has agreed to evaluate the patient for further management and care. 1135: Upon reexamination the patient is resting. I discussed results and treatment plan with the patient. He verbalizes agreement and understanding. The patient will be evaluated for further management. Medical Decision Differential diagnosis: Etiologies such as cardiac ischemia, aortic dissection, pulmonary embolism, pneumonia, pneumothorax, musculoskeletal, infections, pericarditis, myocarditis , esophageal rupture, gastrointestinal, as well as others were entertained. This is a 52-year-old male who presents emergency department complaining of left -sided chest pain that is worse with exertion. The patient is not having any chest pain here in the emergency department. His normal EKG as well as CK-MB and troponin. He was given 324 mg of aspirin here in the emergency department. His d-dimer is also negative. The patient wishes to be admitted and observed for a full cardiac workup I did discuss the case with the hospitalist service who agreed to admit the patient. Patient and are in agreement with the treatment plan. Medication Reconcilliation Current Medication List: was personally reviewed by me Blood Pressure Screening Patient's blood pressure: Elevated blood pressure Referred to hospitalist. Consults Time Called: 1130 Consulting Physician: Dr. Sukhi Russo hospitalist Returned Call: [phone] I discussed the patient's case with Dr. Sukhi Russo hospitalist, he has agreed to evaluate the patient for further management and care. Impression Primary Impression: Precordial chest pain Scribe Attestation The scribe's documentation has been prepared under my direction and personally reviewed by me in its entirety. I confirm that the note above accurately reflects all work, treatment, procedures, and medical decision making performed by me. Departure Information Dispostion Being Evaluated By Hospitalist Prescriptions Famotidine (PEPCID) 20 Mg Tab 20 MG PO BID, #20 Prov: Gianluca Isbell MD 05/25/17 Multivitamins/Minerals (MVI WITH MINERALS) Tab 1 TAB PO DAILY, #20 TAB Prov: Gianluca Isbell MD 05/25/17 Cyclobenzaprine Hcl (FLEXERIL) 10 Mg Tab 10 MG PO TID Y for spasms, #14 Prov: Gianluca Isbell MD 05/25/17 Lorazepam (Lorazepam) 1 Mg Tab 1 MG PO TID Y for Anxiety, #10 Prov: Gianluca Isbell MD 05/25/17 Dicyclomine Hcl (DICYCLOMINE HCL) 10 Mg Cap 10 MG PO TID, #10 Prov: Gianluca Isbell MD 05/25/17 Referrals Arya Suarez M.D. (PCP) Patient Instructions My [facility]
[2017-05-25] MEDS ORDERED: ASPIRIN 81 MG CHEW PO STA (09:11)
[2017-05-25 09:21] LABS: BASO % 0.2 %; BASO ABS # 0.01 K/uL (0-0.2); EOS % 2.9 %; EOS ABS # 0.13 K/uL (0-0.5); HEMATOCRIT 35.5 % (42-52); HEMOGLOBIN 11.4 g/dL (14.0-18.0); LYMPH % 36.8 %; LYMPH ABS # 1.65 K/uL (1.2-3.4); MEAN CELL VOLUME 82.8 fL (80-100); MEAN CORPUSCULAR HEMOGLOBIN 26.6 pg (25-34); MEAN CORPUSCULAR HGB CONC 32.1 g/dl (32-36); MEAN PLATELET VOLUME 9.2 fL (7.4-10.4); MONO % 8.3 %; MONO ABS # 0.37 K/uL (0.11-0.59); NEUT % 51.8 %; NEUT ABS # 2.32 K/uL (1.4-6.5); PLATELET COUNT 182 K/uL (130-400); RED CELL DISTRIBUTION WIDTH SD 51.3 fL (36.4-46.3); WHITE BLOOD COUNT 4.48 K/uL (4.8-10.8)
--- NOTE | 2017-05-25 09:34 | DIAGNOSTIC IMAGING REPORT ---
CHEST ONE VIEW PORTABLE CLINICAL HISTORY: Chest pain. COMPARISON STUDY: Chest radiograph December 05, 2015. FINDINGS: Lung volumes are normal. There is no pneumothorax or pleural effusion. There is no consolidation to suggest pneumonia. Pulmonary vascularity is normal. Cardiomediastinal silhouette is unremarkable. IMPRESSION: No acute cardiopulmonary findings. Electronically signed by: Weston Driver M.D. 05/25/2017 9:33 AM Dictated Date/Time: 05/25/2017 9:32 AM
[2017-05-25 09:52] LABS: ALBUMIN 3.9 gm/dl (3.4-5.0); ALT/SGPT 23 U/L (12-78); BLOOD UREA NITROGEN 7 mg/dl (7-18); CALCIUM 8.7 mg/dl (8.5-10.1); CARBON DIOXIDE 32 mmol/L (21-32); CREATININE 0.86 mg/dl (0.60-1.40); GLUCOSE 94 mg/dl (70-99); LIPASE 89 U/L (73-393); POTASSIUM 3.2 mmol/L (3.5-5.1); SODIUM 141 mmol/L (136-145)
[2017-05-25 09:58] LABS: ALKALINE PHOSPHATASE 126 U/L (45-117); AST/SGOT 26 U/L (15-37); CKMB 1.4 ng/ml (0.5-3.6); TOTAL PROTEIN 7.1 gm/dl (6.4-8.2)
[2017-05-25] MEDS ORDERED: POTASSIUM CHLORIDE 20 MEQ/15 ML UDC PO STA (10:40)
[2017-05-25 11:50] VITALS: O2SAT 100; Ht 190.5 cm; Wt 100.8 kg
[2017-05-25] MEDS ORDERED: CYCL10TA6 PO (12:24)
[2017-05-25] MEDS ORDERED: ATV1 PO (12:24)
[2017-05-25] MEDS ORDERED: DICY10CA12 PO (12:24)
[2017-05-25] MEDS ORDERED: MULTTAB PO (12:24)
[2017-05-25] MEDS ORDERED: FAMO20TA9 PO (12:25)
[2017-05-25] MEDS ORDERED: OXYCODONE/ACETAMINOPHEN 5-325 TAB PO PRN (12:30)
[2017-05-25] MEDS ORDERED: MAGNESIUM HYDROXIDE SUSP 30 ML UDC PO PRN (12:30)
[2017-05-25] MEDS ORDERED: NITROGLYCERIN 0.4 MG SL PER TAB CHARGE SL PRN (12:30)
[2017-05-25] MEDS ORDERED: COLCHICINE 0.6 MG TAB PO PRN (12:30)
[2017-05-25] MEDS ORDERED: CYCLOBENZAPRINE HCL 10 MG TAB PO PRN (12:30)
[2017-05-25] MEDS ORDERED: LORAZEPAM 1 MG TAB PO PRN (12:30)
[2017-05-25] MEDS ORDERED: ALUMINUM/MAGNESIUM/SIMETH (MAALOX MAX) 30 ML UDC PO PRN (12:30)
[2017-05-25] MEDS ORDERED: ACETAMINOPHEN 325 MG TAB PO PRN (12:30)
[2017-05-25] MEDS ORDERED: ONDANSETRON INJ 2 MG/ML 2 ML VIAL IV PRN (12:30)
--- NOTE | 2017-05-25 13:09 | HISTORY & PHYSICAL EXAMINATION ---
DATE OF ADMISSION: 05/25/2017 CHIEF COMPLAINT: Chest pain. HISTORY OF PRESENT ILLNESS: This is a 52-year-old male with past medical history significant for hypertension, anxiety, gout, history of gastric bypass, history of spinal surgeries, history of CAD, history of iron deficiency anemia, history of GERD, presents with chest pain. The patient was out shoveling the snow and he noticed a left-sided chest pain and burning kind of sensation, about mild to moderate in severity, not associated any radiation, no sweating, no shortness of breath, no dizziness, no blurred visions. The pain lasted about 1 hour. At that time, his checked his blood pressure, it was high, so they decided to come to the ER. By the time they checked in the ER, the pain has subsided. Currently, resting comfortably and hemodynamically stable. Denies any fever, chills, no cough, no headaches, no earache, no ear drainage. No nasal drainage. No difficulty swallowing. No skin rash, no abdominal pain. Appetite is okay. Normal bowel and bladder movements. No blood in the stool, no blood in the urine. No swelling in the legs. ALLERGIES: IBUPROFEN, INDOCIN, KETOROLAC, NEOMYCIN, AND PENICILLIN. PAST MEDICAL HISTORY: As mentioned above. PAST SURGICAL HISTORY: Amputation of the left second finger, endoscopies, lithotripsy, laparoscopic procedure of the liver, laparoscopic gastric restrictive bypass , diagnostic laparoscopy, laparoscopic cholecystectomy with cholangiography, appendectomy, repair of inguinal hernia, repair of the knee ligament and a spinal fusion surgery. MEDICATIONS: The patient is on allopurinol 300 mg p.o. daily, atorvastatin 10 mg p.o. daily, colchicine 0.6 mg p.o. b.i.d. p.r.n., cyclobenzaprine 10 mg p.o. t.i.d. p.r.n., Bentyl 10 mg p.o. t.i.d., Pepcid 20 mg p.o. b.i.d., ferrous sulfate 325 mg p.o. b.i.d., Ativan 1 mg p.o. q. 8 hours p.r.n.,morphine superintendent pipelines sq per pain management, multivitamins 1 tablet daily, OxyIR 5 mg every 4 hours p.r.n., and vitamin B12 injection. FAMILY HISTORY: Significant for father had diabetes, hypertension. Mother has hypertension, diabetes, and heart disorder. SOCIAL HISTORY: Former smoker, quit in 2016. No alcohol use. No drug use. . 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 REVIEW OF SYMPTOMS: As per HPI. Rest of review of symptoms negative. PHYSICAL EXAMINATION: GENERAL: The patient is of moderate build, not in distress. VITAL SIGNS: Temperature 36.8, pulse 71, respiratory rate 17, blood pressure 113/97, oxygen 100% on 2 liters. HEENT: No pallor, no icterus. Pupils equal, round and reactive to light. NECK: No JVD, no neck masses, no carotid bruits. CARDIOVASCULAR: S1, S2 heard, regular rate and rhythm, no murmur, no gallop. RESPIRATORY SYSTEM: Clear to auscultation bilaterally. No wheezing, no crackles. ABDOMEN: Soft, bowel sounds present. Nontender. No distention. CENTRAL NERVOUS SYSTEM: Cranial nerves II-XII grossly intact, nonfocal. EXTREMITIES: No edema, no erythema. LABORATORY DATA: WBC 4.4, hemoglobin 11.4, hematocrit 35.5, platelets 182. Sodium 142, potassium 3.2, chloride 103, bicarbonate 32, BUN 7, creatinine 0.8, serum glucose 94. Calcium 8.7, total bilirubin 0.1, direct bilirubin 0.3, AST 26, ALT 23, alkaline phosphatase 126, total creatinine kinase 104, troponin 1 less than 0.015. Point of care D-dimer 427. IMAGING DATA: Chest x-ray - no acute cardiopulmonary findings. EKG: Normal sinus rhythm, sinus bradycardia, rate of 55, right bundle branch block, no acute ST changes seen. ASSESSMENT AND PLAN: This is a 52-year-old male who presents with chest pain. 1. History of chest pain, rule out acute coronary syndrome, atypical symptom. History of coronary artery disease. The patient had a stress test 2 years ago . Because of his back pain, he does not want to undergo a treadmill and does not want to do dobutamine stress test. Pain most likely musculoskeletal Observe in tele floor, serial cardiac enzymes, echocardiogram, consult cardiology for further recommendations in a.m. 2. History of gout, continue allopurinol. 3. History of hyperlipidemia. Continue Lipitor. Follow fasting lipid profile. 4. History of chronic back pain. Continue home medications of Flexeril and pain medications. 5. Gastroesophageal reflux disease. Continue Pepcid. 6. history of gastric bypass surgery and history of anemia. Continue iron tablets and vitamin B12 injections as directed. 7. Anxiety, on Ativan p.r.n. 8. Deep venous thrombosis prophylaxis, sequential compression devices. DISPOSITION: Observation tele floor. Expect to discharge home and follow up with his family doctor. Level 1 full code. MTDD
[2017-05-25 13:12] VITALS: BP 138/83; PULSE 65; TEMP 36.9; O2SAT 100
[2017-05-25] MEDS ORDERED: IV FLUIDS COMPLETED PRN (14:15)
[2017-05-25] MEDS: DICYCLOMINE HCL 10 MG CAP PO SCH ×2 (15:14→21:06)
[2017-05-25] MEDS: CYCLOBENZAPRINE HCL 10 MG TAB PO SCH ×2 (15:14→21:05)
[2017-05-25 15:27] VITALS: BP 138/87; PULSE 67; TEMP 36.6; O2SAT 100
[2017-05-25 16:00] VITALS: O2SAT 99
[2017-05-25] MEDS: FERROUS SULFATE 325 MG TAB PO SCH (16:50)
[2017-05-25 19:22] VITALS: BP 143/86; PULSE 67; TEMP 37; O2SAT 98
[2017-05-25] MEDS: FAMOTIDINE 20 MG TAB PO SCH (21:07)
[2017-05-26 00:09] VITALS: BP 144/82; PULSE 57; TEMP 36.6; O2SAT 98
[2017-05-26 03:51] VITALS: BP 119/57; PULSE 53; TEMP 36.7; O2SAT 99
[2017-05-26 04:43] LABS: BASO % 0.6 %; BASO ABS # 0.03 K/uL (0-0.2); EOS % 3.8 %; EOS ABS # 0.19 K/uL (0-0.5); HEMATOCRIT 33.1 % (42-52); HEMOGLOBIN 10.5 g/dL (14.0-18.0); LYMPH % 47.7 %; LYMPH ABS # 2.36 K/uL (1.2-3.4); MEAN CELL VOLUME 82.5 fL (80-100); MEAN CORPUSCULAR HEMOGLOBIN 26.2 pg (25-34); MEAN CORPUSCULAR HGB CONC 31.7 g/dl (32-36); MEAN PLATELET VOLUME 9.9 fL (7.4-10.4); MONO % 8.5 %; MONO ABS # 0.42 K/uL (0.11-0.59); NEUT % 39.4 %; NEUT ABS # 1.95 K/uL (1.4-6.5); PLATELET COUNT 173 K/uL (130-400); WHITE BLOOD COUNT 4.95 K/uL (4.8-10.8)
[2017-05-26 05:18] LABS: BLOOD UREA NITROGEN 7 mg/dl (7-18); CALCIUM 8.5 mg/dl (8.5-10.1); CARBON DIOXIDE 30 mmol/L (21-32); CHOLESTEROL 82 mg/dl (0-200); CREATININE 0.83 mg/dl (0.60-1.40); GLUCOSE 96 mg/dl (70-99); LDL CHOLESTEROL CALCULATED 24 mg/dl; POTASSIUM 3.9 mmol/L (3.5-5.1); SODIUM 141 mmol/L (136-145)
[2017-05-26 07:32] VITALS: BP 145/92; PULSE 63; TEMP 36.3; O2SAT 99
[2017-05-26] MEDS: CYCLOBENZAPRINE HCL 10 MG TAB PO SCH (07:33)
[2017-05-26] MEDS: DICYCLOMINE HCL 10 MG CAP PO SCH (07:33)
[2017-05-26] MEDS: FAMOTIDINE 20 MG TAB PO SCH (07:33)
[2017-05-26] MEDS: FERROUS SULFATE 325 MG TAB PO SCH (07:34)
[2017-05-26] MEDS ORDERED: ALLOPURINOL 300 MG TAB PO SCH (09:00)
[2017-05-26] MEDS ORDERED: CEROVITE ADV FORMULA TAB PO SCH (09:00)
[2017-05-26] MEDS ORDERED: ATORVASTATIN 10 MG TAB PO SCH (09:00)
--- NOTE | 2017-05-26 09:56 | ECHOCARDIOGRAM REPORT ---
*NOTICE TO RECEIVING REPUBLICAN AGENCY This information is strictly Confidential and protected under [place] law. [place] law prohibits you from making any further disclosure of this information unless further disclosure is expressly permitted by the written consent of the person to whom it pertains or is authorized by law. A general authorization for the release of medical or other information is not sufficient for this purpose. Hospital accepts no responsibility if the information is made available to any other person, INCLUDING THE PATIENT. Interpretation Summary * Name: CHRISTIAN ROE Study Date: 05/26/2017 06:56 AM BP: 119/57 mmHg * Patient Location: C.2T\S\S230\S\1 HR: 53 * : 1965 (M/d/yyyy) Gender: Male Height: 75 in * Age: 52 yrs Ethnicity: [place] Weight: 232 lb * Ordering Physician: Gianluca Isbell * Referring Physician: Self, Referred * Performed By: Danya Quintana RDCS * * Reason For Study: CHEST PAIN * BSA: 2.3 m2 * -- Conclusions -- * Normal LV chamber size with mild concentric LVH. * Normal LV systolic function, EF 55-60%. * No segmental left ventricular wall motion abnormalities are noted. * Grade II diastolic dysfunction. * Mild left atrial enlargement. * No significant valvular pathology. Procedure Details * A complete two-dimensional transthoracic echocardiogram was performed (2D, M-mode, Doppler and color flow Doppler). Left Ventricle * The left ventricle is normal in size. * There is mild concentric left ventricular hypertrophy. * Ejection Fraction = 55-60%. * Left ventricular systolic function is normal. * No segmental left ventricular wall motion abnormalities are noted. * The left ventricular wall motion is normal. Right Ventricle * The right ventricular cavity size is normal (basal dimension <4.2 cm in right ventricular apical 4-chamber view). * The right ventricular systolic function is normal as assessed by tricuspid annular plane systolic excursion (TAPSE) (normal >1.5 cm). Atria * The left atrium is mildly dilated. * Right atrial size is normal. * No ASD detected; PFO is not assessed. Mitral Valve * The mitral valve is normal in structure and function. Tricuspid Valve * The tricuspid valve is normal in structure and function. Aortic Valve * The aortic valve is normal in structure and function. Pulmonic Valve * The pulmonary valve is not well seen, but the Doppler examination is normal without significant regurgitation or stenosis. Great Vessels * The aortic root and proximal ascending aorta are normal sized. Pericardium/Pleural * There is no pericardial effusion. Left Ventricular Diastolic Function * Diastolic dysfunction, Grade II (pseudonormalization pattern). MMode 2D Measurements and Calculations IVSd 1.0 cm IVSs 1.6 cm LVIDd 5.7 cm LVIDs 4.0 cm LVPWd 1.1 cm LVPWs 1.9 cm IVS/LVPW 0.96 FS 29.7 % EDV(Teich) 158.4 ml ESV(Teich) 69.5 ml EF(Teich) 56.1 % EDV(cubed) 182.7 ml ESV(cubed) 63.4 ml EF(cubed) 65.3 % % IVS thick 52.9 % % LVPW thick 72.6 % LV mass(C)d 243.2 grams LV mass(C)dI 104.0 grams/m\S\2 LV mass(C)s 291.7 grams LV mass(C)sI 124.8 grams/m\S\2 SV(Teich) 88.9 ml SI(Teich) 38.0 ml/m\S\2 SV(cubed) 119.3 ml SI(cubed) 51.0 ml/m\S\2 Ao root diam 3.5 cm Ao root area 9.7 cm\S\2 LA dimension 4.1 cm LA/Ao 1.2 LVAd ap4 39.3 cm\S\2 LVLd ap4 9.7 cm EDV(MOD-sp4) 132.4 ml EDV(sp4-el) 135.3 ml LVAs ap4 23.4 cm\S\2 LVLs ap4 8.3 cm ESV(MOD-sp4) 57.6 ml ESV(sp4-el) 56.6 ml EF(MOD-sp4) 56.5 % EF(sp4-el) 58.2 % LVAd ap2 38.0 cm\S\2 LVLd ap2 9.7 cm EDV(MOD-sp2) 124.9 ml EDV(sp2-el) 127.2 ml LVAs ap2 22.6 cm\S\2 LVLs ap2 8.1 cm ESV(MOD-sp2) 55.2 ml ESV(sp2-el) 53.5 ml EF(MOD-sp2) 55.8 % EF(sp2-el) 58.0 % LVLd %diff -0.26 % EDV(MOD-bp) 129.3 ml LVLs %diff -2.02 % ESV(MOD-bp) 56.4 ml EF(MOD-bp) 56.4 % SV(MOD-sp4) 74.8 ml SI(MOD-sp4) 32.0 ml/m\S\2 SV(MOD-sp2) 69.7 ml SI(MOD-sp2) 29.8 ml/m\S\2 SV(MOD-bp) 72.9 ml SI(MOD-bp) 31.2 ml/m\S\2 SV(sp4-el) 78.7 ml SI(sp4-el) 33.7 ml/m\S\2 SV(sp2-el) 73.7 ml SI(sp2-el) 31.5 ml/m\S\2 Doppler Measurements and Calculations MV E max carlos 48.3 cm/sec MV A max carlos 44.5 cm/sec MV E/A 1.1 MV dec time 0.20 sec Ao V2 max 135.7 cm/sec Ao max PG 7.4 mmHg Ao max PG (full) 4.1 mmHg LV V1 max PG 3.3 mmHg LV V1 max 90.4 cm/sec TR max carlos 194.9 cm/sec
--- NOTE | 2017-05-26 10:04 | Discharge Instructions ---
Discharge Instructions Date of Service May 26, 2017. Admission Reason for Admission: Chest Pain Discharge Discharge Diagnosis / Problem: chest pain Discharge Goals Goal(s): Decrease discomfort, Improve function Activity Recommendations Activity Limitations: resume your previous activity . Instructions / Follow-Up Instructions / Follow-Up FOLLOWUP WITH FAMILY DOCTOR ON May AT 9:45AM Current Hospital Diet Patient's current hospital diet: Regular Diet, AHA Diet (Heart Healthy) Discharge Diet Recommended Diet: AHA Diet (Heart Healthy) Pending Studies Studies pending at discharge: no Laboratory Results Lipid Panel Test 05/26/17 04:13 Range/Units Triglycerides Level 61 0-150 mg/dl Cholesterol Level 82 0-200 mg/dl HDL Cholesterol 46 mg/dl Cholesterol/HDL Ratio 1.8 LDL Cholesterol, Calculated 24 mg/dl Medical Emergencies . Who to Call and When: Medical Emergencies: If at any time you feel your situation is an emergency, please call 911 immediately. . Non-Emergent Contact Non-Emergency issues call your: Primary Care Provider . . "Provider Documentation" section prepared by Gianluca Isbell. . VTE Core Measure Inpt VTE Proph given/why not?: SCD's
--- NOTE | 2017-05-26 10:14 | CARDIOLOGY CONSULTATION ---
DATE OF CONSULTATION: 05/26/2017 CONSULTATION REQUESTED BY: Dr. Isbell. REASON FOR CONSULTATION: Chest pain. HISTORY OF PRESENT ILLNESS: Mr. Thomas is a very pleasant 52-year-old gentleman who presented to [facility] Emergency Department early in the a.m. of 05/25/2017 with a complaint of chest pain. The patient states that he woke up that morning with burning sensation on his left chest. He is able to point to with 1 finger at his 5th rib lateral clavicular line. He states it was just a burning sensation, he did not think much of it. He went out, got on his tractor, did start moving snow and the pain seemed to worsen while he was on the tractor. He denies it being related to movement or deep inhalation, and he denies any associated symptoms with it. Specifically, he is denying any associated shortness of breath, diaphoresis, nausea, radiation of the discomfort, palpitations, lightheadedness, dizziness or syncope. After he got off the tractor, the discomfort persisted and he came into the Emergency Department. The pain resolved before he came into the Emergency Department and has not recurred since. Currently, he states he feels fine and is anxious to be discharged. PAST SURGICAL HISTORY: 1. Cardiac catheterization in 2014, revealing only extraluminal calcification in the LAD. 2. Appendectomy. 3. Finger amputation. 4. Knee surgery. 5. Seven skull fractures. 6. Spinal fusion. 7. Gastric bypass surgery. 8. Multiple upper endoscopies. 9. Hernia repair. MEDICAL ILLNESSES: 1. Nonobstructive coronary artery disease. 2. History of noncardiac chest pain. 3. Tobacco abuse. 4. Chronic pain. 5. Dyslipidemia. 6. GERD. 7. Anxiety. 8. Hypertension. FAMILY HISTORY: Noncontributory. SOCIAL HISTORY: Denies any cigarette use but is a chronic smokeless tobacco user. Denies any alcohol or recreational drug use. He is and lives at home with his who is present during the examination. REVIEW OF SYSTEMS: As per HPI, all other review of systems reviewed and negative at this time. ALLERGIES: 1. ERYTHROMYCIN. 2. FENTANYL. 3. IBUPROFEN. 4. INDOMETHACIN. 5. KETOROLAC. 6. PENICILLIN. 7. VANCOMYCIN. MEDICATIONS AN OUTPATIENT: 1. Atorvastatin 10 mg daily. 2. Morphine infusion. 3. Oxycodone p.r.n. 4. Ativan p.r.n. 5. Pepcid b.i.d. 6. Flexeril p.r.n. 7. Colchicine b.i.d. PHYSICAL EXAMINATION: VITALS: Temperature 36.3, pulse 63, respiratory rate 12, blood pressure 145/92. GENERAL: Awake, alert, oriented x3, in no acute distress. HEENT: Normocephalic, atraumatic. Pupils equal, round and reactive to light and accommodation. Extraocular muscles intact. Anicteric sclerae. Moist mucous membranes. NECK: No JVD, no bruit. CARDIOVASCULAR: Regular. Positive S4. Normal S1 and S2. No S3. No murmurs, rubs or gallops. PULMONARY: Clear to auscultation bilaterally. No rales, rhonchi or wheezing. ABDOMEN: Bowel sounds x4, soft. No rebound, guarding or tenderness. No organomegaly. EXTREMITIES: No clubbing, cyanosis or edema. +2 pedal pulses bilaterally. SKIN: Warm and dry. MUSCULOSKELETAL: Left 5th rib is stuck in exhalation. TEST RESULTS: A 12-lead EKG performed in the Emergency Department, independently reviewed at this time shows sinus bradycardia at 55 beats per minute, normal axis, right bundle-branch block, no signs of active ischemia, no significant change compared to previous study. LABORATORY STUDIES OF SIGNIFICANCE: Troponin negative x4. CPK of 104. A 2D echocardiogram showed normal LV chamber size with mild concentric left ventricular hypertrophy, normal LV systolic function without regional wall motion abnormality, EF 55-60%, no change compared to previous study. IMPRESSION: 1. Chest pain, noncardiac. 2. History of nonobstructive coronary artery disease. 3. Chronic back pain. RECOMMENDATIONS: It is my pleasure to see Mr. Thomas in consultation today. From a cardiac standpoint, given the fact that his ischemic workup has been negative as well as the fact that his left 5th rib is out of place, I do believe his pain is musculoskeletal in nature, so conservative therapy would be recommended. The patient has not been seen by his primary creasing machine operator, Dr. Joy, in 3 years now. I would recommend outpatient followup with Dr. Joy in the next month. Otherwise, no medication changes will be made today. It is okay to discharge the patient to home from a cardiac standpoint.
[2017-05-26 10:37] VITALS: BP 145/92; PULSE 63; TEMP 36.3; O2SAT 99
--- NOTE | 2017-05-26 18:46 | Progress Note ---
Internal Med Progress Note Date of Service: May 26, 2017. Provider Documentation: SUBJECTIVE: resting comfortably no chest pain or sob no nausea wants to be discharged OBJECTIVE: Vital Signs-as noted below Exam: General-alert and oriented. Not in distress ENT-normal hearing Neck-no neck masses Lungs-cta b/l no wheezing or crackles Heart-s1 and s2 heard regular rate and rhythm no murmurs Abdomen-soft bowel sounds present non tender no distension Extremities-no edema no erythema Neuro-alert and awake moves extremities Lab data as noted below. ASSESSMENT & PLAN: This is a 52-year-old male who presents with chest pain. 1. History of chest pain, rule out acute coronary syndrome, atypical symptom. History of coronary artery disease. The patient had a stress test 2 years ago . Because of his back pain, he does not want to undergo a treadmill and does not want to do dobutamine stress test. Pain most likely musculoskeletal serial CE, EKG and echo unremarkable' seen by cardiology and ok for discharge f/u with cardiology as out patient. 2. History of gout, continue allopurinol. 3. History of hyperlipidemia. Continue Lipitor. LDL and HDL are at goal. 4. History of chronic back pain. Continue home medications of Flexeril and pain medications. 5. Gastroesophageal reflux disease. Continue Pepcid. 6. history of gastric bypass surgery and history of anemia. Continue iron tablets and vitamin B12 injections as directed. 7. Anxiety, on Ativan p.r.n. Discharged home Vital Signs: Date Time Temp Pulse Resp B/P (MAP) Pulse Ox O2 Delivery O2 Flow Rate FiO2 05/26/17 10:37 36.3 63 20 99 Room Air 05/26/17 08:00 Room Air 05/26/17 07:32 36.3 63 20 145/92 (109) 99 05/26/17 04:00 Room Air 05/26/17 03:51 36.7 53 18 119/57 (77) 99 Room Air 05/26/17 00:09 36.6 57 16 144/82 (102) 98 Room Air 05/25/17 23:59 Room Air 05/25/17 20:00 Room Air 05/25/17 19:22 37.0 67 18 143/86 (105) 98 Room Air Lab Results: Results Past 24 Hours Test 05/25/17 20:43 05/26/17 04:13 Range/Units Troponin I < 0.015 < 0.015 0-0.045 ng/ml White Blood Count 4.95 4.8-10.8 K/uL Red Blood Count 4.01 4.7-6.1 M/uL Hemoglobin 10.5 14.0-18.0 g/dL Hematocrit 33.1 42-52 % Mean Corpuscular Volume 82.5 80-100 fL Mean Corpuscular Hemoglobin 26.2 25-34 pg Mean Corpuscular Hemoglobin Concent 31.7 32-36 g/dl Platelet Count 173 130-400 K/uL Mean Platelet Volume 9.9 7.4-10.4 fL Neutrophils (%) (Auto) 39.4 % Lymphocytes (%) (Auto) 47.7 % Monocytes (%) (Auto) 8.5 % Eosinophils (%) (Auto) 3.8 % Basophils (%) (Auto) 0.6 % Neutrophils # (Auto) 1.95 1.4-6.5 K/uL Lymphocytes # (Auto) 2.36 1.2-3.4 K/uL Monocytes # (Auto) 0.42 0.11-0.59 K/uL Eosinophils # (Auto) 0.19 0-0.5 K/uL Basophils # (Auto) 0.03 0-0.2 K/uL RDW Standard Deviation 51.0 36.4-46.3 fL RDW Coefficient of Variation 17.0 11.5-14.5 % Immature Granulocyte % (Auto) 0.0 % Immature Granulocyte # (Auto) 0.00 0.00-0.02 K/uL Sodium Level 141 136-145 mmol/L Potassium Level 3.9 3.5-5.1 mmol/L Chloride Level 106 98-107 mmol/L Carbon Dioxide Level 30 21-32 mmol/L Anion Gap 5.0 3-11 mmol/L Blood Urea Nitrogen 7 7-18 mg/dl Creatinine 0.83 0.60-1.40 mg/dl Est Creatinine Clear Calc Drug Dose 133.6 ml/min Estimated GFR () 115.6 Estimated GFR (Non- 99.8 BUN/Creatinine Ratio 8.1 10-20 Random Glucose 96 70-99 mg/dl Calcium Level 8.5 8.5-10.1 mg/dl Magnesium Level 2.2 1.8-2.4 mg/dl Triglycerides Level 61 0-150 mg/dl Cholesterol Level 82 0-200 mg/dl HDL Cholesterol 46 mg/dl LDL Cholesterol, Calculated 24 mg/dl VLDL Cholesterol, Calculated 12 mg/dl Cholesterol/HDL Ratio 1.8
--- NOTE | 2017-05-26 18:48 | Discharge Summary ---
Discharge Summary Date of Service May 26, 2017. Discharge Summary Admission Date: May 25, 2017 at 12:26 Discharge Date: May 26, 2017 Discharge Disposition: Home Principal Diagnosis: CHEST PAIN Secondary Diagnoses/Problems: hypertension, anxiety, gout, history of gastric bypass, history of spinal surgeries, history of CAD, history of iron deficiency anemia, history of GERD Procedures: CXR: No acute cardiopulmonary findings ECHO: Normal LV chamber size with mild concentric LVH. * Normal LV systolic function, EF 55-60%. * No segmental left ventricular wall motion abnormalities are noted. * Grade II diastolic dysfunction. * Mild left atrial enlargement. * No significant valvular pathology Consultations: CARDIOLOGY Medication Reconciliation Continued Medications: Allopurinol (Allopurinol) 300 Mg Tab 300 MG PO DAILY Atorvastatin (Lipitor) 10 Mg Tab 10 MG PO DAILY Colchicine (Colchicine) 0.6 Mg Tab 0.6 MG PO PRN for gout, TAB Cyanocobalamin (Cyanocobalamin) 1,000 Mcg/Ml Inj 1000 MCG IM Q3MO Cyclobenzaprine Hcl (Flexeril) 10 Mg Tab 10 MG PO TID PRN for spasms, #14 Dicyclomine Hcl (Dicyclomine Hcl) 10 Mg Cap 10 MG PO TID, #10 Famotidine (Pepcid) 20 Mg Tab 20 MG PO BID, #20 Ferrous Sulfate (Ferrous Sulfate) 325 Mg Tab 1 TAB PO BID Lorazepam (Lorazepam) 1 Mg Tab 1 MG PO TID PRN for Anxiety, #10 Morphine Sulfate (Morphine Sulfate) Unknown Strength Inj Unknown Dose INJ DIRECTED CONTINUOUS INFUSION PAIN PUMP. Multivitamins/Minerals (Mvi With Minerals) Tab 1 TAB PO DAILY, #20 TAB Oxycodone/Acetaminophen 5MG/325MG (Percocet 5MG/325MG) Tab 1 TABLET PO Q4H PRN for Pain, TAB PAIN Admission Information HPI (per Admitting provider): This is a 52-year-old male with past medical history significant for hypertension, anxiety, gout, history of gastric bypass, history of spinal surgeries, history of CAD, history of iron deficiency anemia, history of GERD, presents with chest pain. The patient was out shoveling the snow and he noticed a left-sided chest pain and burning kind of sensation, about mild to moderate in severity, not associated any radiation, no sweating, no shortness of breath, no dizziness, no blurred visions. The pain lasted about 1 hour. At that time, his checked his blood pressure, it was high, so they decided to come to the ER. By the time they checked in the ER, the pain has subsided. Currently, resting comfortably and hemodynamically stable. Denies any fever, chills, no cough, no headaches, no earache, no ear drainage. No nasal drainage. No difficulty swallowing. No skin rash, no abdominal pain. Appetite is okay. Normal bowel and bladder movements. No blood in the stool, no blood in the urine. No swelling in the legs. Physical Exam (per Admitting): GENERAL: The patient is of moderate build, not in distress. VITAL SIGNS: Temperature 36.8, pulse 71, respiratory rate 17, blood pressure 113/97, oxygen 100% on 2 liters. HEENT: No pallor, no icterus. Pupils equal, round and reactive to light. NECK: No JVD, no neck masses, no carotid bruits. CARDIOVASCULAR: S1, S2 heard, regular rate and rhythm, no murmur, no gallop. RESPIRATORY SYSTEM: Clear to auscultation bilaterally. No wheezing, no crackles. ABDOMEN: Soft, bowel sounds present. Nontender. No distention. CENTRAL NERVOUS SYSTEM: Cranial nerves II-XII grossly intact, nonfocal. EXTREMITIES: No edema, no erythema. Hospital Course This is a 52-year-old male who presents with chest pain. 1. History of chest pain, rule out acute coronary syndrome, atypical symptom. History of coronary artery disease. The patient had a stress test 2 years ago . Because of his back pain, he does not want to undergo a treadmill and does not want to do dobutamine stress test. Pain most likely musculoskeletal serial CE, EKG and echo unremarkable' seen by cardiology and ok for discharge f/u with cardiology as out patient. 2. History of gout, continue allopurinol. 3. History of hyperlipidemia. Continue Lipitor. LDL and HDL are at goal. 4. History of chronic back pain. Continue home medications of Flexeril and pain medications. 5. Gastroesophageal reflux disease. Continue Pepcid. 6. history of gastric bypass surgery and history of anemia. Continue iron tablets and vitamin B12 injections as directed. 7. Anxiety, on Ativan p.r.n. Discharged home Total time spent on discharge = 35MINUTES This includes examination of the patient, discharge planning, medication reconciliation, and communication with other providers. Discharge Instructions Discharge Instructions Date of Service May 26, 2017. Admission Reason for Admission: Chest Pain Discharge Discharge Diagnosis / Problem: chest pain Discharge Goals Goal(s): Decrease discomfort, Improve function Activity Recommendations Activity Limitations: resume your previous activity . Instructions / Follow-Up Instructions / Follow-Up FOLLOWUP WITH FAMILY DOCTOR ON May AT 9:45AM Current Hospital Diet Patient's current hospital diet: Regular Diet, AHA Diet (Heart Healthy) Discharge Diet Recommended Diet: AHA Diet (Heart Healthy) Pending Studies Studies pending at discharge: no Laboratory Results Lipid Panel Test 05/26/17 04:13 Range/Units Triglycerides Level 61 0-150 mg/dl Cholesterol Level 82 0-200 mg/dl HDL Cholesterol 46 mg/dl Cholesterol/HDL Ratio 1.8 LDL Cholesterol, Calculated 24 mg/dl Medical Emergencies . Who to Call and When: Medical Emergencies: If at any time you feel your situation is an emergency, please call 911 immediately. . Non-Emergent Contact Non-Emergency issues call your: Primary Care Provider . . "Provider Documentation" section prepared by Gianluca Isbell. . VTE Core Measure Inpt VTE Proph given/why not?: SCD's
[2017-08-19] MEDS ORDERED: FERR1TAB62 PO (09:47)
[2017-08-19] MEDS ORDERED: OXYC-57 PO (13:54)
[2017-08-19] MEDS ORDERED: LPT10 PO (15:52)
== END 2017-05-26 11:00 | disposition home or self-care (01) ==
LOC: C.EDB 08:46 → EDBEDREQ 12:26 → C.2T 12:26 → ENRESERV 12:41
PROVIDERS: ADMIT Internal Medicine; ATTEND Internal Medicine
DX: R07.9 Chest pain, unspecified (principal); I10 Essential (primary) hypertension; F41.9 Anxiety disorder, unspecified; M10.9 Gout, unspecified; Z98.84 Bariatric surgery status; Z98.890 Other specified postprocedural states; I25.10 Atherosclerotic heart disease of native coronary artery without angina pectoris; K21.9 Gastro-esophageal reflux disease without esophagitis; M54.9 Dorsalgia, unspecified; G89.29 Other chronic pain; Z79.899 Other long term (current) drug therapy; Z90.89 Acquired absence of other organs; Z87.891 Personal history of nicotine dependence; Z88.1 Allergy status to other antibiotic agents; Z88.0 Allergy status to penicillin; Z88.6 Allergy status to analgesic agent; Z83.3 Family history of diabetes mellitus; Z82.49 Family history of ischemic heart disease and other diseases of the circulatory system

== ENCOUNTER 2017-07-17 19:36 | Emergency (ER) | payer BC ==
[~2017-07-17] VITALS: Ht 190.5 cm; Wt 105.3 kg
[~2017-07-17 19:36] MED LIST changes: -CLC/300 PO; +FERR1TAB62 PO; +LPT10 PO; -ONDA4TAB54 PO; +OXYC-57 PO
[2017-07-17 19:40] VITALS: TEMP 36.6; Ht 190.5 cm; Wt 105.3 kg
[2017-07-17] MEDS ORDERED: ATV/1 PO (20:23)
[2017-07-17] MEDS ORDERED: BNTHP PO (20:23)
[2017-07-17] MEDS ORDERED: CYCL10TA6 PO (20:23)
--- NOTE | 2017-07-17 20:40 | DIAGNOSTIC IMAGING REPORT ---
LEFT WRIST 5 VIEWS HISTORY: left wrist pain, recent redness COMPARISON: None. FINDINGS: There is no acute fracture or dislocation. Diffuse soft tissue swelling. No erosions to suggest osteomyelitis. No radiopaque foreign bodies. Small well-corticated ossific density dorsal to the wrist consistent with an old triquetral fracture. Moderate osteoarthritis within the wrist. There is scapholunate widening with collapse of the capitate. This is consistent with scapholunate advanced collapse. IMPRESSION: 1. No acute fractures within the left wrist. 2. 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 3. Diffuse soft tissue swelling. Electronically signed by: Matt Patel M.D. 07/17/2017 8:38 PM Dictated Date/Time: 07/17/2017 8:35 PM
--- NOTE | 2017-07-17 21:29 | DIAGNOSTIC IMAGING REPORT ---
LEFT UPPER EXTREMITY VENOUS DOPPLER HISTORY: left wrist pain radiating up arm COMPARISON STUDY: None. FINDINGS: The left internal jugular vein is patent. There is normal flow within the left subclavian vein. There is normal flow and compressibility within the left axillary, basilic, brachial, radial, ulnar, and visualized cephalic veins. IMPRESSION: No DVT within the left upper extremity. Electronically signed by: Matt Patel M.D. 07/17/2017 9:28 PM Dictated Date/Time: 07/17/2017 9:28 PM
[2017-07-17] MEDS ORDERED: ALL300 PO (21:42)
[2017-07-17 22:07] VITALS: BP 125/82; PULSE 57; O2SAT 97
--- NOTE | 2017-07-17 22:18 | EMERGENCY ROOM VISIT NOTE ---
ED Visit Note First contact with patient: 19:50 CHIEF COMPLAINT: Chronic left wrist pain HISTORY OF PRESENT ILLNESS: This 52-year-old male patient presents to the emergency department, ambulatory, with his , complaining of pain in the left wrist which has been worsening over the past several days. The patient denies any new injury. He does report a history of chronic pain in the left wrist due to surgery and bone graft at one point. He has been having ongoing pain for several weeks, however it began worsening this week and is now radiating up toward the left forearm and upper arm. He describes the pain as sharp and sporadic, and rates a 8/10. He has pain with rest and with movement. There is tenderness. He denies any numbness or paresthesias. He states his fingertips do feel cold. The pain is aggravated with picking up objects and holding them in the left hand. He does have limited range of motion, but states this is chronic. The patient is chronically on a morphine pump for chronic back pain. He does take Percocet as needed, but has not taken this medication or any OTC medications for the wrist pain. The patient does follow with [facility], but has not contacted them for this flareup. The patient is able to move their wrist. There has been no laceration. The patient denies any injury. The patient is able to move their fingers and elbow without difficulty. The patient does report a short episode of redness earlier this week, but states that has improved. REVIEW OF SYSTEMS: A 6 system review of systems was performed with positives and pertinent negatives in the HPI. ALLERGIES: Erythromycin, fentanyl, ibuprofen, indomethacin, vancomycin, penicillin, Toradol MEDICATIONS: Morphine, Percocet, allopurinol, Lipitor, cyanocobalamin, Flexeril , dicyclomine, Ativan, iron PMH: Chronic back pain, osteoarthritis, chronic wrist pain SOCIAL HISTORY: The patient lives locally with family. He denies drug, alcohol , tobacco use. PHYSICAL EXAM: Vital Signs: Reviewed Nurse's notes, vital signs stable. GENERAL : This is a 52-year-old white male, in no acute distress, but appears to be in pain, well-developed, well-nourished. NEURO: Alert and oriented to person place and time. Normal sensation to light and sharp touch. MUSCULOSKELETAL: There is no obvious significant deformity of the left wrist. There is a surgical scar on the anterior aspect of the left wrist. There is tenderness and edema over the distal radius. There is no snuff box tenderness. Range of motion is mildly limited, however the patient states this is normal. There is no tenderness of the elbow, hand or fingers. Power Press Operator strength 5/5. Radial pulse 2+. SKIN: Normal and intact. The hand is warm and well perfused with capillary refill less than 2 seconds. RADIOLOGY: LEFT WRIST 5 VIEWS HISTORY: left wrist pain, recent redness COMPARISON: None. FINDINGS: There is no acute fracture or dislocation. Diffuse soft tissue swelling. No erosions to suggest osteomyelitis. No radiopaque foreign bodies. Small well-corticated ossific density dorsal to the wrist consistent with an old triquetral fracture. Moderate osteoarthritis within the wrist. There is scapholunate widening with collapse of the capitate. This is consistent with scapholunate advanced collapse. IMPRESSION: 1. No acute fractures within the left wrist. 2. 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 3. Diffuse soft tissue swelling. Electronically signed by: Matt Patel M.D. 07/17/2017 8:38 PM Dictated Date/Time: 07/17/2017 8:35 PM LEFT UPPER EXTREMITY VENOUS DOPPLER HISTORY: left wrist pain radiating up arm COMPARISON STUDY: None. FINDINGS: The left internal jugular vein is patent. There is normal flow within the left subclavian vein. There is normal flow and compressibility within the left axillary, basilic, brachial, radial, ulnar, and visualized cephalic veins. IMPRESSION: No DVT within the left upper extremity. Electronically signed by: Matt Patel M.D. 07/17/2017 9:28 PM Dictated Date/Time: 07/17/2017 9:28 PM EMERGENCY DEPARTMENT COURSE: I examined the patient. I did offer pain medication and the patient declines. An X-ray and ultrasound of the left wrist was reviewed by myself and radiologist and showed no acute fractures, but there was evidence for scapholunate advanced collapse with moderate osteoarthritis within the left wrist. There is no DVT noted on ultrasound. I discussed the the patient and his at bedside. The patient's states "I find it strange that there is no fracture". I again questioned whether there was an injury to precipitate a fracture, and they both declined. I encouraged the patient to follow-up outpatient with orthopedic surgeon, and he was agreeable. I did offer her a wrist splint, and while the patient was hesitant, his convinced him to take the splint. A wrist lacer splint was placed under my direction and the position was satisfactory. Neurovascular status rechecked and intact. Discharge instructions reviewed. The patient was discharged home in good condition. I attest that I have personally reviewed the patient's current medication list. Patient was found to have normal blood pressure on screening and does not require follow-up. Etiologies such as soft tissue injury, fracture, dislocation, neurovascular compromise, DVT, cellulitis, osteoarthritis, carpal tunnel syndrome, osteomyelitis, abscess, septic joint, compartment syndrome, as well as others were entertained. DIAGNOSIS: Left wrist pain The chart was completed utilizing [employer] Speech voice recognition software. Grammatical errors, random word insertions, pronoun errors, and incomplete sentences are an occasional consequence of this system due to software limitations, ambient noise, and hardware issues. Any formal questions or concerns about the content, text, or information contained within the body of this dictation should be directly addressed to the provider for clarification. 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 (5) S/P appendectomy Status: Resolved (6) S/P cholecystectomy Permanent Comment: laparoscopic February 2011 [facility] Status: Resolved (7) S/P exploratory laparotomy Permanent Comment: July 2010 [facility] Status: Resolved (8) S/P gastric bypass Permanent Comment: mike en Y July 2010 [facility] Status: Chronic (9) S/p knee ligament repair Status: Chronic (10) S/p lumbar spine surgery x 2 Status: Resolved Current/Historical Medications Scheduled Allopurinol (Allopurinol), 300 MG PO DAILY Atorvastatin (Lipitor), 10 MG PO DAILY Cyanocobalamin (Cyanocobalamin), 1,000 MCG IM Q3MO Dicyclomine HCl (Dicyclomine HCl), 10 MG PO TID Ferrous Sulfate (Ferrous Sulfate), 325 MG PO BID Morphine Sulfate (Morphine Sulfate), 1 DOSE INJ UD Scheduled PRN Cyclobenzaprine Hcl (Flexeril), 10 MG PO TID PRN for Muscle Spasm Lorazepam (Ativan), 1 MG PO TID PRN for Anxiety Oxycodone/Acetaminophen 5MG/325MG (Percocet 5MG/325MG), 1 TABLET PO Q4H PRN for Pain Allergies Coded Allergies: Penicillins (Verified Allergy, Severe, SWELLING--HAD KEFLEX WITHOUT PROBLEM MULT TIMES, 05/25/17) SWELLING--HAD KEFLEX WITHOUT PROBLEM MULT TIMES PER DR ROBERTS [id number] ADM--AJ Erythromycin (Verified Allergy, Intermediate, HIVES, 05/25/17) Indomethacin (Verified Allergy, Intermediate, hives, 05/25/17) Ibuprofen (Verified Allergy, Unknown, unknown, 05/25/17) pt Ketorolac Tromethamine (Verified Adverse Reaction, Mild, nausea, 05/25/17) Vancomycin (Verified Adverse Reaction, Mild, OTHER, 05/25/17) Fentanyl (Verified Adverse Reaction, Unknown, did not tolerate per pt & , 05/25/17) Vital Signs Date Time Temp Pulse Resp B/P (MAP) Pulse Ox O2 Delivery O2 Flow Rate FiO2 07/17/17 22:07 57 12 125/82 97 Room Air 07/17/17 19:40 36.6 78 18 146/86 100 Room Air Departure Information Impression Primary Impression: Left wrist pain Dispostion Home / Self-Care Condition GOOD Referrals Arya Suarez M.D. (PCP) [facility] Patient Instructions ED Sprain Wrist, My [facility] Additional Instructions He was seen in the emergency department today for chronic left wrist pain. As discussed, ultrasound and x-ray were negative for acute causes of your pain. Use your chronic pain medication for breakthrough pain. Ibuprofen(Motrin, Advil) may be used for fever or pain. Use 600mg every six hours as needed. Take with food. Avoid using more than 2400mg in a 24 hour period. Do not use 2400mg per day for more than three consecutive days without physician direction. Prolonged inappropriate use can lead to stomach upset or ulcers. (AND/OR) Acetaminophen(Tylenol) may be used for fever or pain. Use 1000mg every six hours as needed. Avoid using more than 4000mg in a 24 hour period. Ice compresses for 20 minutes at a time four times daily for 2-3 days. Rest and elevate your injury. Use the splint for comfort. Return to the ER immediately for any numbness, tingling, severe pain, extreme swelling in the extremity or as needed. Call [facility], [phone], tomorrow to arrange follow up for your injury. Follow-up with your primary care physician in 2 to 3 days for a recheck of your current condition.
[2017-07-17] MEDS ORDERED: CYNI1000 IM (23:08)
[2017-07-17] MEDS ORDERED: MORP1INJ INJ (23:08)
== END 2017-07-17 22:25 | disposition home or self-care (01) ==
LOC: C.EDB 19:37 → C.EDD 22:25
DX: M19.032 Primary osteoarthritis, left wrist (principal); G89.29 Other chronic pain; M54.9 Dorsalgia, unspecified; I10 Essential (primary) hypertension; K21.9 Gastro-esophageal reflux disease without esophagitis; Z98.890 Other specified postprocedural states; Z79.899 Other long term (current) drug therapy; Z79.891 Long term (current) use of opiate analgesic; Z88.1 Allergy status to other antibiotic agents; Z88.6 Allergy status to analgesic agent; Z88.8 Allergy status to other drugs, medicaments and biological substances; Z88.0 Allergy status to penicillin

== ENCOUNTER 2017-07-23 16:59 | Emergency (ER) | payer BC ==
[~2017-07-23] VITALS: Ht 190.5 cm; Wt 105.9 kg
[~2017-07-23 16:59] MED LIST changes: +ALL300 PO; +ATV/1 PO; -ATV1 PO; +BNTHP PO; -COLC0.6T54 PO; +CYNI1000 IM; -DICY10CA12 PO; -FAMO20TA9 PO; +MORP1INJ INJ
[2017-07-23 17:06] VITALS: BP 153/84; PULSE 91; TEMP 36.8; O2SAT 98; Ht 190.5 cm; Wt 105.9 kg
--- NOTE | 2017-07-23 17:54 | EMERGENCY ROOM VISIT NOTE ---
ED Visit Note First contact with patient: 17:13 CHIEF COMPLAINT: Head injury 1 hour ago HISTORY OF PRESENT ILLNESS: Patient is a 52-year-old male who presents emergency department accompanied by family for evaluation after he sustained a minor head injury about an hour ago. He states that he was feeling his bird feeder. He reports that the wooden top of the bird feeder which weighs about 6 pounds fell roughly 4-5 feet and hit him on the top of the left side of his head. There was no loss of consciousness. He denies any headache, lightheadedness, dizziness vision changes, difficulty with balance, speech or coordination. He reports a very mild 1/10 pain at the site. He applied ice to the area and the swelling has gone down. He has not used any medications for discomfort. He has a remote history of a skull fracture from a work injury in 2003 which did not require any surgical intervention. He is not presently on any blood thinning medications. REVIEW OF SYSTEMS: Review of systems as per HPI. All other systems reviewed were negative. 10 systems reviewed. PMH: Electronic medical records are reviewed and summarized as above/below. See Problem List. SOCIAL HISTORY: Patient lives at home with his family. Non-smoker. PHYSICAL EXAM: Vital Signs: Reviewed Nurse's notes. GCS: 15 CONSTITUTIONAL: Patient is a pleasant, well-appearing 52-year-old male who is awake and alert and in no acute distress. HEENT: Superficial right-sided linear abrasion noted.. Pupils equal, round, reactive to light and accommodation. EOMs intact without nystagmus. Sclera are anicteric. Tympanic membranes intact, with normal landmarks. External canals are clear. No hemotympanum or Paniagua sign. Oral and nasopharynx are clear. No CSF rhinorrhea. Mucous membranes are moist. NECK: Supple, nontender, no lymphadenopathy. Full range of motion. HEART: Regular rate and rhythm, with normal S1 and S2, no murmur or gallop or rub is heard. LUNGS: Breath sounds equal and clear to auscultation without wheezes, rales, or rhonchi heard. SKIN: No lesions or rash, normal skin turgor. EXTREMITIES: No cyanosis, edema, joint tenderness or swelling. No deformity. NEUROLOGICAL: Alert and oriented x4. Cranial nerves 2 through 12, sensation and strength grossly intact. Gait is normal. Patient is able to toe, heel and tandem walk without difficulty. Negative Romberg, and pronator drift. Finger to nose, finger to finger and rapid alternating movements are intact. Immediate , recent and remote memories are intact. Concentration is normal. ED course: The patient was seen and assessed as above. His old records are reviewed. The patient is essentially asymptomatic, but due to the remote history of the skull fracture and cerebral contusion, family brought him to the emergency department for evaluation. After discussion with them, it was felt that the mechanism of injury was low risk for a skull fracture or any acute bleed and it seems reasonable at this time to defer on the CT scan, the patient prefers this and is in agreement. Verbal and written head injury instructions were outlined with the patient and his family members at length however and they are welcome to return to the emergency department at any point if his symptoms change. They were comfortable with this. Medication reconciliation: I attest that I have personally reviewed the patient' s current medication list. Blood pressure screening: Patient was found to have a slightly elevated blood pressure due to circumstances. I do not believe that the patient requires hypertension monitoring. 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 (5) S/P appendectomy Status: Resolved (6) S/P cholecystectomy Permanent Comment: laparoscopic February 2011 [facility] Status: Resolved (7) S/P exploratory laparotomy Permanent Comment: July 2010 [facility] Status: Resolved (8) S/P gastric bypass Permanent Comment: mike en Y July 2010 [facility] Status: Chronic (9) S/p knee ligament repair Status: Chronic (10) S/p lumbar spine surgery x 2 Status: Resolved Current/Historical Medications Scheduled Allopurinol (Allopurinol), 300 MG PO DAILY Atorvastatin (Lipitor), 10 MG PO DAILY Cyanocobalamin (Cyanocobalamin), 1,000 MCG IM Q3MO Dicyclomine HCl (Dicyclomine HCl), 10 MG PO TID Ferrous Sulfate (Ferrous Sulfate), 325 MG PO BID Morphine Sulfate (Morphine Sulfate), 1 DOSE INJ UD Scheduled PRN Cyclobenzaprine Hcl (Flexeril), 10 MG PO TID PRN for Muscle Spasm Lorazepam (Ativan), 1 MG PO TID PRN for Anxiety Oxycodone/Acetaminophen 5MG/325MG (Percocet 5MG/325MG), 1 TABLET PO Q4H PRN for Pain Allergies Coded Allergies: Penicillins (Verified Allergy, Severe, SWELLING--HAD KEFLEX WITHOUT PROBLEM MULT TIMES, 05/25/17) SWELLING--HAD KEFLEX WITHOUT PROBLEM MULT TIMES PER DR ROBERTS [id number] ADM--AJ Erythromycin (Verified Allergy, Intermediate, HIVES, 05/25/17) Indomethacin (Verified Allergy, Intermediate, hives, 05/25/17) Ibuprofen (Verified Allergy, Unknown, unknown, 05/25/17) pt Ketorolac Tromethamine (Verified Adverse Reaction, Mild, nausea, 05/25/17) Vancomycin (Verified Adverse Reaction, Mild, OTHER, 05/25/17) Fentanyl (Verified Adverse Reaction, Unknown, did not tolerate per pt & , 05/25/17) Vital Signs Date Time Temp Pulse Resp B/P (MAP) Pulse Ox O2 Delivery O2 Flow Rate FiO2 07/23/17 17:06 36.8 91 18 153/84 98 Room Air Departure Information Impression Primary Impression: Scalp contusion Referrals Arya Suarez M.D. (PCP) Patient Instructions My [facility] Additional Instructions Tylenol(acetaminophen) may be used for headaches. Use 1000mg every six hours as needed. Avoid using more than 3000mg in a 24 hour period. Avoid anti-inflammatories such as aspirin, ibuprofen, Alleve, naprosyn, Motrin, or Advil as these can interfere with blood clotting and lead to bleeding within the brain after a traumatic injury. Ice as needed for pain and swelling. Continue current medications. Activity as tolerated. Problems could arise over the next 24 to 48 hours. You should not be left alone and MUST go to the hospital immediately if you: -Have a headache that suddenly gets worse. -Are very drowsy or cannot be woken up from sleep. -Can't recognize people or places. -Have repeated vomiting. -Behave unusually, seemed confused, or start acting irritable. -Have a seizure (arms and legs start jerking uncontrollably). -Have weak or numb arms or legs. -Are unsteady on your feet -Experience slurred speech or difficulty speaking. Problem Qualifiers Primary Impression: Scalp contusion Encounter type: initial encounter Qualified Codes: S00.03XA - Contusion of scalp, initial encounter
== END 2017-07-23 17:59 | disposition home or self-care (01) ==
LOC: C.EDB 17:01 → C.EDD 17:59
DX: S00.03XA Contusion of scalp, initial encounter (principal); W20.8XXA Other cause of strike by thrown, projected or falling object, initial encounter; F41.9 Anxiety disorder, unspecified; K21.9 Gastro-esophageal reflux disease without esophagitis; M10.9 Gout, unspecified; Z88.0 Allergy status to penicillin; Z88.8 Allergy status to other drugs, medicaments and biological substances

== ENCOUNTER 2017-08-13 21:38 | Emergency (ER) | payer BC ==
[~2017-08-13] VITALS: Ht 190.5 cm; Wt 103.5 kg
[~2017-08-13 21:38] MED LIST changes: -ALL300 PO; -CYNI1000 IM; -MORP1INJ INJ
[2017-08-13 21:40] VITALS: TEMP 36.6; Ht 190.5 cm; Wt 103.5 kg
[2017-08-13] MEDS ORDERED: ALL300 PO (21:42)
[2017-08-13] MEDS ORDERED: ONDANSETRON INJ 2 MG/ML 2 ML VIAL IV STA (21:49)
[2017-08-13] MEDS ORDERED: MoRPHine SULFATE 4 MG/ML 1 ML CARP\\VIAL IV STA ×2 (21:49→23:28)
[2017-08-13] MEDS ORDERED: SODIUM CHLORIDE 0.9% 1000ML 1,000 ML IV STA (21:49)
[2017-08-13 22:19] LABS: BASO % 0.2 %; BASO ABS # 0.01 K/uL (0-0.2); EOS % 1.8 %; EOS ABS # 0.08 K/uL (0-0.5); HEMATOCRIT 36.3 % (42-52); HEMOGLOBIN 12.2 g/dL (14.0-18.0); LYMPH % 45.6 %; MEAN CELL VOLUME 85.8 fL (80-100); MEAN CORPUSCULAR HEMOGLOBIN 28.8 pg (25-34); MEAN CORPUSCULAR HGB CONC 33.6 g/dl (32-36); MEAN PLATELET VOLUME 9.3 fL (7.4-10.4); MONO % 10.9 %; MONO ABS # 0.48 K/uL (0.11-0.59); NEUT % 41.5 %; NEUT ABS # 1.82 K/uL (1.4-6.5); PLATELET COUNT 176 K/uL (130-400); RED CELL DISTRIBUTION WIDTH CV 15.6 % (11.5-14.5); RED CELL DISTRIBUTION WIDTH SD 49.7 fL (36.4-46.3); WHITE BLOOD COUNT 4.39 K/uL (4.8-10.8)
[2017-08-13 22:36] LABS: CALCIUM 8.6 mg/dl (8.5-10.1); CREATININE 0.91 mg/dl (0.60-1.40); POTASSIUM 3.7 mmol/L (3.5-5.1)
[2017-08-13] MEDS ORDERED: ATV1 PO (22:37)
[2017-08-13 22:39] LABS: TOTAL PROTEIN 7.2 gm/dl (6.4-8.2)
[2017-08-13] MEDS ORDERED: CYNI1000 IM (23:08)
[2017-08-13] MEDS ORDERED: MORP1INJ INJ (23:08)
[2017-08-13] MEDS ORDERED: OPTIRAY 320 IV PRN (23:15)
--- NOTE | 2017-08-14 00:08 | EMERGENCY ROOM VISIT NOTE ---
ED Visit Note First contact with patient: 21:45 This Patient was discussed with the physician assistant director of plant operations, WILLIE Avila. The pertinent historical and physical exam findings were confirmed. I agree with the studies ordered and with the interpretations of these studies. I agree with the disposition and care plan.
--- NOTE | 2017-08-14 00:35 | EMERGENCY ROOM VISIT NOTE ---
History First contact with patient: 21:45 Chief Complaint: ABDOMINAL PAIN Stated Complaint: SEVERE PAIN RIDE SIDE TO KIDNEY AREA Nursing Triage Summary: patient complains of abdominal pain that wraps around right side to kidney that started around 1500 today and has been getting worse History of Present Illness The patient is a 52 year old male who presents to the Emergency Room with complaints of severe right lower quadrant pain that occasionally radiates to his flank described as severe, 9 out of 10. Patient had bowel perforations before and kidney stones but this feels different. He has had gastric bypass, appendectomy, cholecystectomy lithotripsy and bowel surgeries. Patient denies chest pain, dyspnea, fever, chills, cough, congestion, urinary symptoms, testicular pain, penile pain. No injury to the area. Review of Systems An 10 system review of systems was completed with positives and pertinent negatives listed in the HPI. 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 (5) S/P appendectomy (6) S/P cholecystectomy (7) S/P exploratory laparotomy (8) S/P gastric bypass (9) S/p knee ligament repair (10) S/p lumbar spine surgery x 2 Family History Cardiac disorder MOTHER Diabetes mellitus FATHER MOTHER Heart disease Hypertension FATHER MOTHER Kidney disease Kidney stones Social History Smoking Status: Never Smoker Alcohol Use: occasionally Marital Status: Housing Status: lives with family Occupation Status: disabled Current/Historical Medications Scheduled Allopurinol (Allopurinol), 300 MG PO DAILY Atorvastatin (Lipitor), 10 MG PO DAILY Cyanocobalamin (Cyanocobalamin), 1,000 MCG IM Q3MO Dicyclomine HCl (Dicyclomine HCl), 10 MG PO TID Ferrous Sulfate (Ferrous Sulfate), 325 MG PO BID Morphine Sulfate (Morphine Sulfate), 1 DOSE INJ UD Scheduled PRN Cyclobenzaprine Hcl (Flexeril), 10 MG PO TID PRN for Muscle Spasm Lorazepam (Lorazepam), 1 MG PO TID PRN for Anxiety Oxycodone/Acetaminophen 5MG/325MG (Percocet 5MG/325MG), 1 TABLET PO Q4H PRN for Pain Physical Exam Vital Signs Date Time Temp Pulse Resp B/P (MAP) Pulse Ox O2 Delivery O2 Flow Rate FiO2 08/13/17 23:34 62 20 147/81 100 Room Air 08/13/17 22:10 Room Air 08/13/17 21:40 36.6 76 18 140/90 95 Room Air Physical Exam VITALS: Vitals are noted on the nurse's note and reviewed by myself. Vital signs mildly hypertensive GENERAL: Pleasant male who appears in pain, in no acute distress, nondiaphoretic , well-developed well-nourished. SKIN: The skin was without rashes, erythema, edema, or bruising. There is no tenting of the skin. Capillary reflex less than 2 seconds. HEAD: Normocephalic atraumatic. EARS: External auditory canals clear, tympanic membranes pearly brunson without erythema or effusion bilaterally. EYES: Pupils equal round and reactive to light and accommodation. Conjunctivae without injection, sclerae without icterus. Extraocular movements intact. NOSE: Patent, turbinates without inflammation or discharge. MOUTH: Mucous membranes moist. Pharynx without erythema or exudate. Uvula midline. Airway patent. Tongue does not deviate. NECK: Supple without nuchal rigidity. No lymphadenopathy. No thyromegaly. Cervical spine is nontender. No JVD. HEART: Regular rate and rhythm without murmurs gallops or rubs. LUNGS: Clear to auscultation bilaterally without wheezes, rales or rhonchi. No retractions or accessory muscle use. ABDOMEN: Positive bowel sounds x 4. Normal tympanic percussion. Soft, tender to palpation right lower quadrant, without masses or organomegaly. Velez sign negative. No guarding or rebound tenderness. No CVA tenderness MUSCULOSKELETAL: No muscle atrophy, erythema, or edema noted. NEURO: Patient was alert and oriented to person place and time. Normal sensation to light and sharp touch. No focal neurological deficits. Medical Decision & Procedures Laboratory Results 08/13/17 22:00 Red Blood Count 4.23, Mean Corpuscular Volume 85.8, Mean Corpuscular Hemoglobin 28.8, Mean Corpuscular Hemoglobin Concent 33.6, Mean Platelet Volume 9.3, Neutrophils (%) (Auto) 41.5, Lymphocytes (%) (Auto) 45.6, Monocytes (%) (Auto) 10.9, Eosinophils (%) (Auto) 1.8, Basophils (%) (Auto) 0.2, Neutrophils # (Auto ) 1.82, Lymphocytes # (Auto) 2.00, Monocytes # (Auto) 0.48, Eosinophils # (Auto ) 0.08, Basophils # (Auto) 0.01 08/13/17 22:00 Test 08/13/17 22:00 08/13/17 23:18 White Blood Count 4.39 K/uL (4.8-10.8) Red Blood Count 4.23 M/uL (4.7-6.1) Hemoglobin 12.2 g/dL (14.0-18.0) Hematocrit 36.3 % (42-52) Mean Corpuscular Volume 85.8 fL (80-100) Mean Corpuscular Hemoglobin 28.8 pg (25-34) Mean Corpuscular Hemoglobin Concent 33.6 g/dl (32-36) Platelet Count 176 K/uL (130-400) Mean Platelet Volume 9.3 fL (7.4-10.4) Neutrophils (%) (Auto) 41.5 % Lymphocytes (%) (Auto) 45.6 % Monocytes (%) (Auto) 10.9 % Eosinophils (%) (Auto) 1.8 % Basophils (%) (Auto) 0.2 % Neutrophils # (Auto) 1.82 K/uL (1.4-6.5) Lymphocytes # (Auto) 2.00 K/uL (1.2-3.4) Monocytes # (Auto) 0.48 K/uL (0.11-0.59) Eosinophils # (Auto) 0.08 K/uL (0-0.5) Basophils # (Auto) 0.01 K/uL (0-0.2) RDW Standard Deviation 49.7 fL (36.4-46.3) RDW Coefficient of Variation 15.6 % (11.5-14.5) Immature Granulocyte % (Auto) 0.0 % Immature Granulocyte # (Auto) 0.00 K/uL (0.00-0.02) Anion Gap 5.0 mmol/L (3-11) Est Creatinine Clear Calc Drug Dose 120.9 ml/min Estimated GFR () 110.3 Estimated GFR (Non- 95.2 BUN/Creatinine Ratio 10.1 (10-20) Calcium Level 8.6 mg/dl (8.5-10.1) Total Bilirubin 1.0 mg/dl (0.2-1) Direct Bilirubin 0.3 mg/dl (0-0.2) Aspartate Amino Transf (AST/SGOT) 22 U/L (15-37) Alanine Aminotransferase (ALT/SGPT) 21 U/L (12-78) Alkaline Phosphatase 143 U/L (45-117) Total Protein 7.2 gm/dl (6.4-8.2) Albumin 4.0 gm/dl (3.4-5.0) Lipase 106 U/L (73-393) Urine Color DK YELLOW Urine Appearance CLOUDY (CLEAR) Urine pH 5.0 (4.5-7.5) Urine Specific [place] 1.027 (1.000-1.030) Urine Protein 1+ (NEG) Urine Glucose (UA) NEG (NEG) Urine Ketones NEG (NEG) Urine Occult Blood 3+ (NEG) Urine Nitrite NEG (NEG) Urine Bilirubin NEG (NEG) Urine Urobilinogen NEG (NEG) Urine Leukocyte Esterase SMALL (NEG) Urine WBC (Auto) 5-10 /hpf (0-5) Urine RBC (Auto) >30 /hpf (0-4) Urine Hyaline Casts (Auto) 1-5 /lpf (0-5) Urine Epithelial Cells (Auto) 5-10 /lpf (0-5) Urine Bacteria (Auto) NEG (NEG) Medications Administered Medications (Trade) Dose Ordered Sig/Antoinette Route Start Time Stop Time Status Last Admin Dose Admin Sodium Chloride 1,000 ml @ 999 mls/hr Q1H1M STAT IV 08/13/17 21:49 08/13/17 22:49 DC 08/13/17 22:03 999 MLS/HR Ondansetron HCl (Zofran Inj) 4 mg NOW STAT IV 08/13/17 21:49 08/13/17 21:51 DC 08/13/17 22:03 4 MG Morphine Sulfate (MoRPHine SULFATE INJ) 4 mg NOW STAT IV 08/13/17 21:49 08/13/17 21:51 DC 08/13/17 22:03 4 MG Morphine Sulfate (MoRPHine SULFATE INJ) 4 mg NOW STAT IV 08/13/17 23:28 08/13/17 23:29 DC 08/13/17 23:33 4 MG ED Course Prior records/ancillary studies reviewed. Triage Nursing notes reviewed. Additional history obtained from family. The patient's history was concerning for abdominal pain. Differential diagnosis: Etiologies such as diverticulitis, PUD, biliary pathology, UTI, pancreatitis, obstruction, mesenteric ischemia, aortic pathology, infections, inflammatory bowel disease, renal colic, as well as others were entertained. Physical examination findings: As above. ER treatment provided: Morphine, Zofran, IV fluids On reassessment the patient felt better. Diagnostics interpreted by me: The labs revealed mild anemia. Urine with hematuria without UTI Imaging studies: CT ABDOMEN & PELVIS With Contrast: 5 mm calculus at the distal aspect of the right ureter. Additional adjacent ureteral calculus of similar size. Mild upstream dilatation of the collecting system. Small/punctate nonobstructing right and left renal calyceal calculi. Prior cholecystectomy. No appendicitis, colitis, diverticulitis or bowel obstruction. No free air or free fluid. Evidence of prior gastric bypass surgery. Radiologist: Chad Nascimento M.D. Exam and history seem consistent with right ureteral colic. Patient is to kidney stones in the ureter. He is requesting to leave. He was advised to take medicines as directed and was advised to take the Flomax at night daily until stones pass. He was informed of the Flomax can drop his blood pressure. He was advised to follow-up urology in a few days or here in the ER sooner for severe pain, fevers, vomiting, worsening signs or symptoms or as needed. Using shared decision making process, the patient requested to go home versus admission. I felt this is a reasonable option. He was offered admission. Patient was informed to return to the ER mediate for severe pain, fevers, vomiting, worsening signs or symptoms or as needed. He had no UTI. He was afebrile nontoxic. He is tolerating fluids. No leukocytosis. By the evaluation outlined above emergent etiologies such as appendicitis, diverticulitis, PUD, biliary pathology, UTI, pancreatitis, obstruction, mesenteric ischemia, aortic pathology, infections, inflammatory bowel disease, as well as others were deemed relatively unlikely. The pt informed about the findings as listed above. All questions were answered and pleased with the treatment. Return instructions were outlined and the patient was discharged in stable condition. Outpatient prescription management: Oxy IR, Flomax Referral: The patient was referred back to their primary care physician and Urology for follow-up in 2 to 3 days for a recheck of the current condition. Case reviewed with my attending The chart was completed utilizing [employer] Speech voice recognition software. Grammatical errors, random word insertions, pronoun errors, and incomplete sentences are an occassional consequence of this system due to software limitations, ambient noise, and hardware issues. Any formal questions or concerns about the content, text, or information contained within the body of this dictation should be directly addressed to the physician visitor service assistant for clarification. Medical Decision As above [place] Drug Monitoring Program Search Results: patient reviewed within database, see additional documentation (Chronic narcotic and benzo use) Medication Reconcilliation Current Medication List: was personally reviewed by me Blood Pressure Screening Patient's blood pressure: Elevated blood pressure Blood pressure disposition: Referred to PCP Impression Primary Impression: Renal colic on right side Departure Information Dispostion Home / Self-Care Condition GOOD Referrals Arya Suarez M.D. (PCP) Patient Instructions My [facility] Additional Instructions DO NOT drive, drink alcohol, operate machinery, or perform dangerous activities today. You were given medications in the ER that can affect your ability to safely function or operate a vehicle. Oxycodone Immediate Release (OxyIR) 5mg: Take 1-2 pills every four hours for pain. Avoid alcohol, operating machinery or dangerous equipment, working on ladders or roofs, DRIVING, or situations where being under the influence may be dangerous. It is recommended to use an [id number] stool softener such as Colace, 100mg twice daily while taking this medication to avoid constipation. Zofran 4 mg: Take one every six hours as needed for nausea. Avoid alcohol, operating machinery or dangerous equipment, working on ladders or roofs, DRIVING , or situations where being under the influence may be dangerous. Acetaminophen(Tylenol) may be used for fever or pain. Use 1000mg every six hours as needed. Avoid using more than 3000mg in a 24 hour period. This medication can be taken if you need to drive, work, or perform activities which may be dangerous when taking narcotic pain medication. Flomax 0.4 m tablet at night into the stone passes. This can drop your blood pressure and make you lightheaded. Monitor your blood pressure. Stop this if your blood pressure is low such as systolic lower than 100 which is the top number.Any medication can cause an allergic reaction, stop the pills immediately and return to the ER for rash, hives, breathing difficulties, or swelling. Strain your urine and collect all the stones or debris for the urologists. Rest and avoid strenuous activity until your stone passes and symptoms resolve. Drink plenty of fluids. Continue current medications. Return to the ER for worsening abdominal or back pain, vomiting, fevers, passing out, or as needed. Follow up with urology in 2-3 days, call for an appointment.
[2017-08-14] MEDS ORDERED: TAMS0.4C38 PO (00:37)
[2017-08-14] MEDS ORDERED: OXYC1TAB3 PO (00:37)
[2017-08-14] MEDS ORDERED: ONDA4TAB10 SL (00:37)
[2017-08-14 00:45] VITALS: BP 129/65; PULSE 71; O2SAT 100
[2017-08-14] MEDS ORDERED: ONDANSETRON HOME PACK 4MG OD TAB PO ONE (00:45)
[2017-08-14] MEDS ORDERED: OXYCODONE IR HOME PACK PO ONE (00:45)
[2017-08-14] MEDS ORDERED: TAMSULOSIN HCL 0.4 MG CAP PO ONE (00:45)
--- NOTE | 2017-08-14 07:32 | DIAGNOSTIC IMAGING REPORT ---
ABDOMEN AND PELVIS CT WITH IV CONTRAST CT DOSE: 647.14 mGy.cm HISTORY: severe right lower abdominal pain, hx bowel perforation/stones TECHNIQUE: Multiaxial CT images of the abdomen and pelvis were performed following the use of intravenous contrast. A dose lowering technique was utilized adhering to the principles of ALARA. COMPARISON STUDY: Abdomen and pelvis CT 10/15/2015. FINDINGS: Stable small linear scarlike density within the right middle lobe. No pneumoperitoneum. No pneumatosis. Posterior decompression and fusion within the upper lumbar spine. Cholecystectomy. Prior gastric bypass. The liver, pancreas, spleen, and adrenal glands are unremarkable. No retroperitoneal lymphadenopathy. Electronic stimulator pack noted within the left lower quadrant anterior abdominal wall. No bowel wall thickening or obstruction. No retroperitoneal lymphadenopathy. There is a left retroaortic renal vein. Multiple bilateral renal calculi with the largest on the right measuring 12 mm. No left-sided hydronephrosis. Mild right hydronephrosis secondary to 2 adjacent 5 mm stones within the mid right ureter. The bladder is unremarkable. IMPRESSION: 1. Mild right hydronephrosis secondary to 2 adjacent 5 mm stones within the mid right ureter. 2. Bilateral nephrolithiasis. 3. Prior gastric bypass. 4. No bowel wall thickening or obstruction. Electronically signed by: Matt Patel M.D. 08/14/2017 7:31 AM Dictated Date/Time: 08/14/2017 7:25 AM
== END 2017-08-14 00:50 | disposition home or self-care (01) ==
LOC: C.EDB 21:39
DX: N20.1 Calculus of ureter (principal); R03.0 Elevated blood-pressure reading, without diagnosis of hypertension; K21.9 Gastro-esophageal reflux disease without esophagitis; Z98.84 Bariatric surgery status; Z90.49 Acquired absence of other specified parts of digestive tract; Z90.89 Acquired absence of other organs; Z79.899 Other long term (current) drug therapy

== ENCOUNTER 2017-08-19 20:07 | Emergency (ER) | payer BC ==
[~2017-08-19] VITALS: Ht 190.5 cm; Wt 103.0 kg
[~2017-08-19 20:07] MED LIST changes: -ATV/1 PO; -BNTHP PO; -CYCL10TA6 PO; +ONDA4TAB10 SL; +OXYC1TAB3 PO; +TAMS0.4C38 PO
[2017-08-19 20:09] VITALS: BP 131/78; PULSE 76; TEMP 36.5; O2SAT 100; Ht 190.5 cm; Wt 103.0 kg
[2017-08-19] MEDS ORDERED: DOXYCYCLINE HYCLATE 100 MG CAP PO STA (20:21)
[2017-08-19] MEDS ORDERED: CYCL10TA6 PO (20:23)
[2017-08-19] MEDS ORDERED: DOXY-300 PO (20:23)
[2017-08-19] MEDS ORDERED: BNTHP PO (20:23)
--- NOTE | 2017-08-19 20:23 | EMERGENCY ROOM VISIT NOTE ---
History First contact with patient: 20:14 Chief Complaint: BITE Stated Complaint: TICK BITE History of Present Illness The patient is a 52 year old male who presents to the Emergency Room via private vehicle with complaints of "tick bite". The patient states that he noticed a tick today on his right lower back. Family tried to remove this and only removed part of it. He is unsure how long it was in place. He notes his tetanus is up-to-date. There have been no fevers or chills. Review of Systems A complete 10-point Review of Systems was discussed with the patient, with pertinent positives and negatives listed in the History of Present Illness. All remaining Review of Systems questions can be considered negative unless otherwise specified. 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 (5) S/P appendectomy (6) S/P cholecystectomy (7) S/P exploratory laparotomy (8) S/P gastric bypass (9) S/p knee ligament repair (10) S/p lumbar spine surgery x 2 Family History Cardiac disorder MOTHER Diabetes mellitus FATHER MOTHER Heart disease Hypertension FATHER MOTHER Kidney disease Kidney stones Social History Smoking Status: Never Smoker Alcohol Use: occasionally Marital Status: Housing Status: lives with family Occupation Status: disabled Current/Historical Medications Scheduled Allopurinol (Allopurinol), 300 MG PO DAILY Atorvastatin (Lipitor), 10 MG PO DAILY Cyanocobalamin (Cyanocobalamin), 1,000 MCG IM Q3MO Dicyclomine HCl (Dicyclomine HCl), 10 MG PO TID Doxycycline (Monohydrate) (Doxycycline), 100 MG PO Q12 Ferrous Sulfate (Ferrous Sulfate), 325 MG PO DAILY Morphine Sulfate (Morphine Sulfate), 1 DOSE INJ UD Ondasetron Odt (Zofran Odt), 4 MG SL Q6H Tamsulosin Hcl (Flomax), 1 CAP PO DAILY Scheduled PRN Cyclobenzaprine Hcl (Flexeril), 10 MG PO TID PRN for Muscle Spasm Lorazepam (Lorazepam), 1 MG PO TID PRN for Anxiety Oxycodone Immediate Rel Tab (Roxicodone Ir), 1-2 TAB PO Q4H PRN for Severe Pain Oxycodone/Acetaminophen 5MG/325MG (Percocet 5MG/325MG), 1 TABLET PO Q4H PRN for Pain Physical Exam Vital Signs Date Time Temp Pulse Resp B/P (MAP) Pulse Ox O2 Delivery O2 Flow Rate FiO2 08/19/17 20:09 36.5 76 20 131/78 100 Room Air Physical Exam VITAL SIGNS - Vital signs and nursing notes were reviewed. Stable. GENERAL -52-year-old male appearing his stated age who is in no acute distress. Communicates well with provider and answers questions appropriately. SKIN -there is an erythematous rash noted to the posterior aspect of the patient 's right flank. There is retained portion of a tick in the center. This area is larger than 1 cm in diameter. Medical Decision & Procedures Medications Administered Medications (Trade) Dose Ordered Sig/Antoinette Route Start Time Stop Time Status Last Admin Dose Admin Doxycycline Hyclate (Vibramycin Cap) 100 mg ONE STAT PO 08/19/17 20:21 08/19/17 20:22 DC 08/19/17 20:31 100 MG Medical Decision Patient was seen and evaluated as above in room D5. Review was performed of nursing notes and vital signs. After obtaining a thorough history and physical examination consent was obtained and the retained portion of the tick was easily removed with an 18-gauge sterile needle. No skin disruption noted. This was cleansed and dressed with a bacitracin dressing. He will be given 21 days of doxycycline (first dose here) secondary to the amount of erythema surrounding the tick bite. The concern is this could be early erythema migrans. He is to follow with his family doctor. He was educated upon worrisome symptoms which to return. The patient was educated upon management, had questions answered prior to discharge, and was discharged home in good condition. In the evaluation and treatment of this patient the following differential diagnoses were entertained: Erythema migrans, retained tick, Lyme disease, among others. Impression Primary Impression: Tick bite Departure Information Dispostion Home / Self-Care Condition GOOD Prescriptions Doxycycline (Monohydrate) (Doxycycline) 100 Mg Cap 100 MG PO Q12, #41 TABS Prov: Vimal Rosa, TAMAR 08/19/17 Referrals Arya Suarez M.D. (PCP) Patient Instructions Bites Tick, ED Bite Tick Abx Tx, ED Facts Tick, My [facility] Additional Instructions You were seen in the emergency department for a tick bite. Because of the size of the redness I will treat you with a 21 day course of doxycycline in the event that this is the rash associated with Lyme disease. You have been prescribed Doxycycline to be taken as prescribed. This is an antibiotic. All antibiotics have the potential to cause diarrhea. Stop this medication and contact a medical provider if you were to develop any significant adverse side effects including: wheezing, shortness of breath, passing out, vomiting, or a diffuse rash. Always take antibiotics as directed and COMPLETE the ENTIRE course regardless of the improvement of your symptoms. Protect yourself with sunscreen while on this antibiotic as it increases your skin's sensitivity to the light and cause bad sunburns. In addition, you should be sure to take this pill after eating. Make sure the pill is completely swallowed as this medication can cause irritation to the lining of the esophagus. Do NOT drink milk or eat anything with large amounts of Calcium in them 1 hour prior to taking this medication as this will decrease the effectiveness of the medication. Doxycycline 1 tablet every 12 hours. Your given the first tablet here. Please retrieve this from the pharmacy and begin this tomorrow as we discussed. Please call your family doctor to schedule follow-up. They may want to test you for Lyme disease. Please return with any new/concerning symptoms.
[2017-08-19] MEDS ORDERED: ONDA4TAB10 SL (20:27)
[2017-08-19] MEDS ORDERED: ALL300 PO (21:42)
[2017-08-19] MEDS ORDERED: ATV1 PO (22:37)
[2017-08-19] MEDS ORDERED: MORP1INJ INJ (23:08)
[2017-08-19] MEDS ORDERED: CYNI1000 IM (23:08)
== END 2017-08-19 20:31 | disposition home or self-care (01) ==
LOC: C.EDB 20:08 → C.EDD 20:31
DX: S30.860A Insect bite (nonvenomous) of lower back and pelvis, initial encounter (principal); W57.XXXA Bitten or stung by nonvenomous insect and other nonvenomous arthropods, initial encounter; I10 Essential (primary) hypertension; M10.9 Gout, unspecified; Z89.022 Acquired absence of left finger(s); Z90.49 Acquired absence of other specified parts of digestive tract; Z98.84 Bariatric surgery status; Z90.89 Acquired absence of other organs; Z98.890 Other specified postprocedural states; Z83.3 Family history of diabetes mellitus; Z84.1 Family history of disorders of kidney and ureter; Z82.49 Family history of ischemic heart disease and other diseases of the circulatory system; Z79.899 Other long term (current) drug therapy

== ENCOUNTER 2023-11-08 21:08 | Inpatient (IN) ==
--- OUTSIDE RECORDS SUMMARY | 2023-11-08 21:14 | External Medical Summary | Summary of Care ---
Author Name Unknown Organization [facility] [address] [address] Phone [phone] Care Team Providers Care Anesthetic Assistant Name Role Phone Charles Mayer DO Primary Care Provider Encounter Details Date Type Department Care Team (Late st Contact Info) Description 11/03/2023 Telephone Gastroenterology, [facility] [address] [place] [id number] Fern Wetzel MD [address] [place] [address] Allergies Active Allergy Reactions Criticality Noted Date Comments Aspirin 12/17/2018 Other reaction(s): "BLEEDING" S/P GASTRIC BYPASS Fentanyl High 12/17/2018 Other reaction(s): "DID NOT TOLERATE"-patch- "went nuts" Ibuprofen High 12/17/2018 Other reaction(s): per d/t ulcer history Indomethacin 12/26/2009 Indomethacin High 12/17/2018 Other reaction(s): HIVES Ketorolac Low 12/17/2018 Other reaction(s): NAUSEA Neomycin 08/09/2004 blisters Other - Drugs 09/23/2003 "mycins" itching Penicillins 08/09/2004 edema and rash as a teen he had an injection in his arm and the arm swelled. No hives no throat swelling. 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 90 Tab 0 12/05/2014 Active Additional Information Patient taking differently:10 mg Oral TID PRN, Muscle spasms,Indications: daily, Reported on 09/24/2022 promethazine (PHENERGAN) 12.5 MG Tablet TAKE 1 TABLET BY MOUTH EVERY 6 HOURS NEEDED FOR NAUSEA AND VOMITING 10/13/2019 Active Colchicine 0.6 MG Oral Tablet TAKE 1 TABLET BY MOUTH TWICE A DAY 60 Tab 07/11/2020 Active Additional Information Patient not taking.Reported on 10/22/2023 LORazepam 1 MG Oral Tablet (Ativan)Indication s:Chronic chest pain,Anxiety,Spasm of muscle Take 1 Tablet by mouth every 8 hours as needed for Other (severe spasm). 30 Tablet 04/30/2021 Active Docusate Sodium 100 MG Oral Capsule (Colace) Take 1 Capsule by mouth in the morning and 1 Capsule before bedtime. Active Benefiber Oral Powder Take by mouth three times a day with meals. Active Atorvastatin Calcium 10 MG Oral Tablet (Lipitor)Indicatio ns:Elevated cholesterol Take 1 Tablet by mouth in the morning. 100 Tablet 2 02/05/2023 Active Cyclobenzaprine HCl 10 MG Oral Tablet (Flexeril) take one and one-half tablets by mouth in the morning and one and one-half tablets in the evening and one and one-half tablets before bedtime. 405 Tablet 1 03/18/2023 Active Pantoprazole Sodium 40 MG Oral Tablet Delayed Release (Protonix)Indicati ons:Acute gastric ulcer with hemorrhage TAKE ONE TABLET BY MOUTH TWICE A DAY - MORNING AND BEFORE BEDTIME 200 Tablet 1 06/22/2023 5 Active Memantine HCl 10 MG Oral Tablet (Namenda) Take 1 Tablet by mouth in the morning and 1 Tablet before bedtime. 180 Tablet 3 06/24/2023 Active Allopurinol 300 MG Oral Tablet (Zyloprim)Indicati ons:Gout TAKE ONE TABLET BY MOUTH EVERY DAY 100 Tablet 1 10/01/2023 Active Dicyclomine HCl 10 MG Oral Capsule (Bentyl) TAKE ONE CAPSULE BY MOUTH THREE TIMES A DAY IN THE MORNING, AT NOON, AND BEFORE BEDTIME 300 Capsule 3 10/21/2023 5 Active Famotidine 40 MG Oral Tablet (Pepcid)Indication s:Gastroesophageal reflux disease without esophagitis Take 1 Tablet by mouth in the morning. 30 Tablet 11 10/23/2023 Active Zoster Vac Recomb Adjuvanted 50 MCG/0.5ML Intramuscular Suspension Reconstituted (Shingrix)Indicati ons:Need for vaccination for zoster Inject 0.5 mL into a large muscle now and repeat dose in 60 to 180 days 1 Each 1 12/28/2019 4 Discontinu ed(Medicat ion List Clean Up) documented as of this encounter (statuses as of 11/07/2023) Active Problems Problem Noted Date Diagnosed Date History of kidney stones 04/22/2022 Stage 3a chronic kidney disease 02/14/2020 Overview: Per CKD protocol - Per CKD protocol Low ferritin 01/03/2020 History of nonmelanoma skin cancer 10/10/2019 Overview: BCC central nasal dorsum 09/23 Right upper lobe pulmonary nodule 01/21/2019 History of skull fracture 09/24/2018 History of trauma to spine 09/24/2018 Iron deficiency anemia 04/24/2017 Coronary artery disease invo lving [place] heart without angina pectoris 04/18/2016 Incomplete tear of right rotator cuff 04/15/2016 Overview: 04/23 Dr Eduardo guerrero. Anxiety 09/28/2014 Diverticulitis of colon 09/16/2014 Intestinal postoperative nonabsorption 1 CALLAHAN RESEARCH OTHER*[id number] 09/14/2009 ADVANCE DIRECTIVE INFORMATION 01/21/2009 Overview: No, Advance Directive brochure offered , patient declined. MEDICATION USE AGREEMENT 05/19/2008 Overview: See julio GERD (gastroesophageal reflux disease) Gout S/P gastric bypass S/P spinal fusion documented as of this encounter (statuses as of 11/07/2023) Resolved Problems Problem Noted Date Diagnosed Date Resolved Date Kidney disease, chronic, sta ge III (GFR 30-59 ml/min) 11/16/2018 02/17/2020 Overview: Per CKD protocol Well adult exam 04/18/2016 09/24/2018 Overview: ??Need eval hypoglycemia? S/p gastric bypass. Pain mgmt Dr Syed Asencio--[facility] +pain pump 02/22 EGD-Gastric bypass with a normal-sized pouch. One visible staple was removed. Prior Gastrojejunal anastomosis ulcer healed, scar noted with moderate stenosis. Dilated up to 18 mm. 05/25 [facility] [place] dys, normal EF, mild LAE. colonoscopy 5mm polyp PATH adenoma--elizabeth 1y w/2d prep 2014 cardiac cath--mod calc. Start atorvastatin HTN, goal below 140/90 09/29/201502/12 Hypoglycemia 02/03/2015 04/18/2016 Insomnia 09/28/2014 11/28/2014 Spasm of muscle 09/28/2014 04/18/2016 Chest pain 09/16/2014 09/24/2018 Renal calculus 09/16/2014 04/22/2022 Overview: many Coronary atherosclerosis 09/08/2014 Chest pain 09/05/2014 04/18/2016 Exertional shortness of breath 09/05/2014 03/16/2019 Impaired fasting glucose 05/23/2014 Hypoglycemia 05/23/2014 04/18/2016 Sweating abnormality 05/23/2014 017 Hyperglycemia 05/23/2014 04/18/2016 Preop examination 01/15/2013 11/28/2014 Vertigo 01/04/2013 01/13/2013 Abnormal blood sugar 06/16/2012 013 Abdominal pain, epigastric 06/16/2012 1 Body mass index (BMI) of 40.0-44.9 in adult 06/26/2010 10/10/2010 Overview: ICD-10 update of inactive term Backache 03/30/2010 09/24/2018 Encounter for removal of sutures 03/30/2010 04/25/2010 Other specified pre-operative examination 03/07/2010 10/10/2010 Tobacco use disorder 09/18/2009 011 Bariatric Proteinuria Research*[id number] 09/14/2009 12/27/2009 Organic sleep disorder 06/22/200910/10 Morbid obesity, BMI not known 06/22/2009 06/26/2010 Gout 05/08/2009 11/28/2014 History of tobacco use 05/08/200910/10 Sleep apnea 05/08/2009 06/22/2009 HTN, goal below 140/90 06/15/200809/28 JOINT DIS NOS-L-LEG 08/21/2004 03/16/20 HTN, goal below 140/90 09/22 Tobacco use disorder 017 Overview: smokeless 2cans per week documented as of this encounter (statuses as of 11/07/2023) Immunizations Name Administration Dates Next Due COVID-19 mRNA, LNP-s, No Pre serve, 2-Dose Series (Moderna) 09/11/2020,08/14/2020 Diptheria/Tetanus (Adult) 04/08/2005 H1N1 2009 Influenza, IM 04/24/2009 Pneumococcal Polysaccharide PPV23 (Pneumovax) 01/14/2013 Seasonal Influenza Virus Vac cine, Unspecified Formulation 12/24/2019,12/29/2018,01/20/2018,01/07,01/17/2016,01/07/2014,01/14/2013 ,12/27/2011,12/06/2008 Seasonal Influenza, PF, 6 M & above, IM , (FluLaval or Fluzone) 06/24/2023,12/27/2020,12/24/2019,12/29,01/07/2017 Seasonal Influenza, Quadriva lent, No Preserve, IM 01/20/2018,01/17/2016,01/10/2015 Seasonal Influenza, Split, I IV3, With Preserve, Inj 01/07/2014,01/14/2013,12/27/2011,12/06 TDAP (age 10 and older)(Boostrix) 07/15/2012 documented as of this encounter Social History Tobacco Use Types Packs/Day Years Used Date Smoking Tobacco: Never Passive Smoke Exposure: Never Smokeless Tobacco: Current Snuff, Chew Comments:quit 12/2015. Alcohol Use Standard Drinks/Week Comments Yes 0 (1 standard drink = 0.6 oz pur e alcohol) Occasionally PHQ-2 Answer Date Recorded PHQ-2 Score 0 03/16/2019 Hunger Vital Sign Answer Date Recorded Within the past 12 months, y ou worried that your food would run out before you got the money to buy more. Never true 06/17/19 24 Within the past 12 months, t he food you bought just didn't last and you didn't have money to get more. Never true 06/17/2023 Childcare Answer Date Recorded Do you feel overwhelmed with taking care of a child, family member or friend? No 06/17/2023 Does your family need help f inding childcare? (Household - for ages 0-17 years) Not on file 06/17/2023 Clothing Answer Date Recorded Have you been unable to get clothing when it was really needed? No 06/17/2023 Is your family able to get c lothes or diapers when needed? (Household - for ages 0-17 years) Not on file 06/17/2023 Personal Safety Answer Date Recorded Do you feel unsafe or have concerns for your saf ety? No 06/17/2023 Do you have concerns for you r family's safety? (Household - for ages 0-17 years) Not on file 06/17/2023 Utilities Answer Date Recorded Do you have trouble paying y our heating, water, or electric bill? No 06/17/2023 Is your family able to pay t he heat, water, or electric bill? (Household - for ages 0-17 years) Not on file 06/17/2023 Does your family have access to good internet? (Household - for ages 0-17 years) Not on file 06/17/2023 Employment Status Answer Date Recorded Are you unemployed or without regular income? No 06/17/2023 Does the household have a re gular source of income? (Household - for ages 0-17 years) Not on file 06/17/2023 Social Connections Answer Date Recorded How often do you feel lonely or isolated from th ose around you? Never 06/17/2023 Financial Resource Strain Answer Date R ecorded Do you have any trouble payi ng for your medications, or do you think you might in the future? No 06/17/2023 Does your family have troubl e paying for medicine? (Household - for ages 0-17 years) Not on file 06/17/2023 Transportation Needs Answer Date Record ed READ ONLY Do you have troubl e getting a ride to medical visits or work? Never True 06/17/2023 Does your family have a hard time getting a ride to doctors visits? (Household - for ages 0-17 years) Not on file 06/17/2023 Has lack of transportation k ept you from medical appointments, meetings, work, or from getting things needed for daily living? Check all that apply. (Adult - for ages 18 years and over) Not on file 06/17/2023 Do you (or your family) have trouble finding or paying for a ride (transportation)? (Household - for ages 0-17 years) Not on file 06/17/2023 Housing Stability Answer Date Recorded Do you currently live in a s helter or have no steady place to sleep at night? No 06/17/2023 READ ONLY Do you think you a re at risk of becoming homeless? No 06/17/2023 Does your family worry about paying for your home or becoming homeless? (Household - for ages 0-17 years) Not on file 0 06/17/2023 Are you homeless or worried that you might be in the future? (Adult - for ages 18 years and over) Not on file Are you (or your family) lisa eless or worried that you might be in the future? (Household - for ages 0-17 years) Not on file Food Insecurity Answer Date Recorded Do you need food for this week? No 06/17/2023 Are you able to get enough f ood for your family? (Household - for ages 0-17 years) Not on file 06/17/2023 Does your family need food t his week? (Household - for ages 0-17 years) Not on file 06/17/2023 Do you always have enough fo od for your family? (Household - for ages 0-17 years) Not on file 06/17/2023 Sex and Gender Information Value Date Recorded Sex Assigned at Male 09/24/2018 10:21 AM EDT Gender Identity Male 09/24/2018 10:21 AM EDT Sexual Orientation Straight 09/24/2018 10 :21 AM EDT Job Start Date Occupation Industry Not on file Not on file Not on file documented as of this encounter Miscellaneous Notes * Telephone Encounter - Nichelle Herndon OSA - 11/07/2023 8:53 AM EDT Called patient to get set up for Fluoro study.. lmm for patient to call office back to get number to call [facility]. * Telephone Encounter - Nichelle Herndon OSA - 11/03/2023 9:53 AM EDT Faxed order to [facility]. Will call to schedule. * Telephone Encounter - Nichelle Herndon OSA - 11/03/2023 9:53 AM EDT ----- Message from Fern Wetzel MD sent at 11/03/2023 9:10 AM EDT ----- Please schedule video swallow at [facility]. This should not be scheduled at [facility] - should be scheduled at [facility]. documented in this encounter Plan of Treatment Upcoming Encounters Date Type Department Care Team (Late st Contact Info) Description 12/25/2023 1:40 PM EDT Office Visit Neurology [address] [place] [phone] Heather Franklin CRNP [address] [facility] [place] [address] 01/19/2024 1:00 PM EDT Office [facility]ology, [address] [address] [facility] [place] [address] Madisyn Mendoza PA-C [address] [facility] [place] [address] 01/29/2024 9:40 AM EDT Office Visit [facility] [address] [place] [address] Charles Mayer DO [address] [place] [address] Scheduled Procedures Name Priority Associated Diagnoses Date/Ti me ESOPHAGOGASTRODUODENOSCOPY ( EGD), FLEXIBLE, TRANSORAL, DIAGNOSTIC Recall Esophageal reflux Health Maintenance Due Date Last Done Comments Cologuard 2008 Fecal Occult Blood Test 2008 Sigmoidoscopy 2008 Zoster Vaccines (1 of 2) 2013 Colonoscopy 06/03/2018 06/03/2017, 06/03/2017 Colorectal Cancer Screening 06/03/2018 Depression Screening 12/27/2020 12/28/2019 COVID-19 Vaccine (3 - season) 2022 09/11/2020, 08/14/2020 DTaP,Tdap,and Td Vaccines (4 - Td or Tdap) 11/08/2023 11/07/2013, 11/07/2013, 07/15/2012, Additional history exists Influenza Vaccine (FLU shot) (#1) 2023 06/24/2023, 12/27/2020, 12/27/2020, Additional history exists GFR 04/28/2024 10/27/2023, 03/0 09/2023, 08/14/2020, Additional history exists CKD HGB USE SMARTSET 91697 06/10/202406/10, 08/14/2020, 08/14/2020, Additional history exists CKD PHOS USE SMARTSET 09516 06/10/2024 06/11/2023, 0 12/24/2019 Albumin/Creatinine Ratio 06/11/2024 06/12/2023, 0606/2014 Diabetes Screening 10/26/2026 10/27/2023, 0 06/11/2023, 08/14/2020, Additional history exists Pneumococcal Vaccine: Pediatrics (0 to 5 Years) and At-Risk Patients (6 to 64 Years) Aged Out 01/14/2013 No longer eligible based on patient's age to complete this topic RETIRED - COLONOSCOPY-ANNUAL AGES 18-100 Discontinued 06/03/2017, 06/03/2017 HPV (Gardasil) Vaccine Aged Out No lo nger eligible based on patient's age to complete this topic Hepatitis B Vaccine Aged Out No longe r eligible based on patient's age to complete this topic MENINGOCOCCAL (MENACTRA/MENVEO) Aged Out No longer eligible based on patient's age to complete this topic documented as of this encounter Medical Devices Not on filedocumented as of this encounter Advance Directives Documents on File Type Date Recorded 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 No Does the patient have Health Care Power of Attor michael? No * Full Code Date Activated Date Inactivated Comments 02/13/2011 6:09 AM 02/13/2011 5:03 PM This order r eflects the patients wishes and were consensually agreed upon. * Full Code Date Activated Date Inactivated Comments 08/05/2010 8:35 AM 08/06/2010 9:36 PM This order ref lects the patients wishes and were consensually agreed upon. * Full Code Date Activated Date Inactivated Comments 08/02/2010 1:51 PM 08/03/2010 6:19 PM This order r eflects the patients wishes and were consensually agreed upon. * Full Code Date Activated Date Inactivated Comments 07/19/2010 4:11 PM 07/20/2010 9:14 PM This order r eflects the patients wishes and were consensually agreed upon. Care Teams Anesthetic Assistant Relationship Specialty Start Date End Date Charles Mayer DO [address] [place] [address] PCP - General Family Medicine 05/26/23 documented as of this encounter
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
[2023-11-08] MEDS: SODIUM CHLORIDE 0.9% 500 ML IV STA (22:07)
[2023-11-08 22:10] LABS: Basophils # (auto) 0.03 K/uL (0.00-0.20); Basophils % (auto) 0.6 %; Eosinophils % (auto) 1.9 %; Hematocrit (blood only) 33.4 % (42.0-52.0); Hemoglobin 11.4 g/dl (14.0-18.0); Immature Granulocytes # (auto) 0.01 K/uL (0.01-0.20); Immature Granulocytes % (auto) 0.2 %; Lymphocytes # (auto) 1.54 K/uL (1.20-3.40); Lymphocytes % (auto) 28.6 %; Mean Corpuscular Hemoglobin 32.9 pg (25.0-34.0); Mean Corpuscular Hgb Conc 34.1 g/dL (32.0-36.0); Mean Corpuscular Volume 96.3 fL (80.0-100.0); Mean Platelet Volume 8.9 fL (9.4-12.4); Monocytes # (auto) 0.52 K/uL (0.11-0.59); Monocytes % (auto) 9.6 %; Neutrophils # (auto) 3.19 K/uL (1.40-6.50); Neutrophils % (auto) 59.1 %; Platelet Count 228 K/uL (130-400); RDW Coefficient of Variation 13.2 % (11.5-14.5); Red Blood Count 3.47 M/uL (4.70-6.10); White Blood Count 5.39 K/ul (4.8-10.8)
[2023-11-08 22:15] LABS: Appearance Urine Clear (Clear); Bilirubin Urine Negative (Negative); Blood Urine Negative (Negative); Color Urine Yellow; Glucose Urine UA Negative (Negative); Ketones Urine Negative (Negative); Leukocyte Esterase Urine Negative (Negative); Nitrite Urine Negative (Negative); Protein Urine Negative (Negative); Specific Gravity Urine 1.004 (1.000-1.030); Urobilinogen Urine Negative (Negative); pH Urine 5.5 (4.5-7.5)
[2023-11-08 22:28] LABS: Albumin Globulin Ratio 1.5 (0.9-2); Albumin Level 3.4 gm/dl (3.4-5.0); BUN Creatinine Ratio 5.7 (10-20); Bilirubin,Total 0.7 mg/dl (0.2-1.0); Calcium 9.1 mg/dl (8.6-10.3); Creatinine Clr Calc Pharmacy 80.1 ml/min; Est GFR (Non-African American) 75.9 ml/min; Globulin 2.3 gm/dl (2.5-4.0); Magnesium 1.7 mg/dl (1.7-2.4); Potassium 3.7 mmol/L (3.5-5.1); Total Protein 5.7 gm/dl (6.0-8.3)
[2023-11-08 22:36] LABS: Troponin I High Sensitivity 24.2 pg/ml (0-20)
[2023-11-08 23:25] LABS: Partial Thromboplastin Ratio 1.3; Partial Thromboplastin Time 35 Seconds (21-31); Prothrombin Time 10.6 Seconds (9.0-12.0)
[2023-11-09] MEDS: LORazepam 1 MG TAB SL STA (00:29)
--- NOTE | 2023-11-09 00:46 | History & Physical Report ---
Date of Service November 09, 2023 Assessment & Plan (1) Confusion: Plan: 58-year-old male with past medical history significant for gout, right upper lobe pulmonary, CAD, GERD, obesity s/p gastric bypass, GI bleed from gastric bypass, diverticulitis, CKD stage III, iron deficiency anemia, anxiety, history of kidney stones who lives at home with his was brought in because of confusion and agitation and frequent falls. 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 His MMSE 9/30 done by neurology On June 2023 and neurology thinks now he has moderate to severe dementia likely Alzheimer's superimposed on remote TBI contributed from chronic pain and medication side effects and B12 and folate deficiency. Because of history of GI bleed neurology did not want to give cholinesterase inhibitors as they are contraindicated and memantine was added. As per patient knows his name. Sometimes does not know her name. Sometimes does not know that he is in the house. And he was been falling frequently. This is fifth ER visit since September 23 2023 for falls. Last ER visit on November 05 CT scan showed possible pneumonia and right 11th rib fracture possibly subacute and was discharged on Omnicef and doxycycline. At that time had some cough with bloody sputum but that got resolved. No fevers. No nausea /vomiting. No diarrhea or constipation. Micturating okay. Eating okay. No difficulty swallowing as per . Ambulates without support. As per Ativan for agitation was not helping. As per he also drinks 4-5 beers daily and she is trying to cut down. When does not check he drinks more. Currently could tell his name. Knows he is in the hospital. Could tell his 's name. Could tell his date of . Could not remember his daughter's name. Could not tell current dates. Cannot get much history from the patient currently. Confusion Agitation Moderate to severe dementia Frequent falls Ongoing alcoholism contributing Recent multiple falls Monitor in the hospital Psychiatry consult to help with his agitation PT OT when stable Alcoholism Alcohol withdrawal protocol with gabapentin and IV Ativan as needed Banana bag IV thiamine and folic acid Will check vitamin B-12 and folate levels Moderate to severe dementia Continue memantine Monitor for delirium Elevated troponin Will follow serial enzymes and echo If any concerns will consult cardiology Questionable pneumonia recent CAT scan Patient has no cough or fevers Will continue with doxycycline GERD on Pepcid and Protonix Chronic pain Seems to be on morphine pump Gout On allopurinol History of calcific nonobstructive CAD On statin History of gastric bypass surgery Follow vitamin levels DVT prophylaxis Lovenox Disposition Med/telemetry Full code History of Present Illness Chief Complaint: Frequent falls confusion and agitation Primary Care Provider: Charles Mayer DO 58-year-old male with past medical history significant for gout, right upper lobe pulmonary, CAD, GERD, obesity s/p gastric bypass, GI bleed from gastric bypass, diverticulitis, CKD stage III, iron deficiency anemia, anxiety, history of kidney stones who lives at home with his was brought in because of confusion and agitation and frequent falls. 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 His MMSE 9/30 done by neurology On June 2023 and neurology thinks now he has moderate to severe dementia likely Alzheimer's superimposed on remote TBI contributed from chronic pain and medication side effects and B12 and folate deficiency. Because of history of GI bleed neurology did not want to give cholinesterase inhibitors as they are contraindicated and memantine was added. As per patient knows his name. Sometimes does not know her name. Sometimes does not know that he is in the house. And he was been falling frequently. This is fifth ER visit since September 23 2023 for falls. Last ER visit on November 05 CT scan showed possible pneumonia and right 11th rib fracture possibly subacute and was discharged on Omnicef and doxycycline. At that time had some cough with bloody sputum but that got resolved. No fevers. No nausea /vomiting. No diarrhea or constipation. Micturating okay. Eating okay. No difficulty swallowing as per . Ambulates without support. As per Ativan for agitation was not helping. As per he also drinks 4-5 beers daily and she is trying to cut down. When does not check he drinks more. Currently could tell his name. Knows he is in the hospital. Could tell his 's name. Could tell his date of . Could not remember his daughter's name. Could not tell current dates. Cannot get much history from the patient currently. Past medical history. As mentioned above. Past surgical history. Amputation of left second finger. Colonoscopy. EGD. Exploratory laparotomy. ESWL. Laparoscopic procedure liver. Laparoscopic gastric restrictive bypass Mike-en-Y . Laparoscopic cholecystectomy. Appendectomy. Left inguinal hernia repair. Repair of the ligament. Spinal fusion surgery. Social history. . No smoking. Drinks 4-5 beers daily. No drug use. Family history. Father had diabetes. Hypertension. Mother had diabetes, hypertension and heart disorder Allergies Allergy/AdvReac Type Severity Reaction Status Date / Time Penicillins Allergy Severe SEE COMMENT Verified 11/08/23 22:11 erythromycin base Allergy Intermediate Itching Verified 11/08/23 22:11 indomethacin Allergy Intermediate HIVES Verified 11/08/23 22:11 neomycin Allergy Intermediate BLISTERS Verified 11/08/23 22:11 vancomycin Allergy Intermediate ITCHING--ALL Verified 11/08/23 22:11 MYCIN DRUGS fentanyl AdvReac Severe "DID NOT Verified 11/08/23 22:11 TOLERATE"-patch- "went nuts" ibuprofen AdvReac Severe Ulcer Verified 11/08/23 22:11 history ketorolac AdvReac Mild NAUSEA Verified 11/08/23 22:11 aspirin AdvReac Unknown "BLEEDING" Verified 11/08/23 22:11 S/P GASTRIC BYPASS Home Medications Medication Instructions Recorded Confirmed Type allopurinol 300 mg tablet 300 mg PO QAM 01/04/18 11/08/23 History atorvastatin 10 mg tablet 10 mg PO QAM 01/04/18 11/08/23 History pantoprazole 40 mg tablet,delayed 40 mg PO BID 10/02/18 11/08/23 History release Prune-Lax 2 tab PO HS 09/23/23 11/08/23 History colchicine 0.6 mg tablet 0.6 mg PO BID PRN GOUT FLARE UPS 09/23/23 11/08/23 History cyclobenzaprine 10 mg tablet 10 mg PO BID 09/23/23 11/08/23 History docusate sodium 100 mg capsule 200 mg PO BID 09/23/23 11/08/23 History famotidine 40 mg tablet 40 mg PO HS 09/23/23 11/08/23 History lorazepam 1 mg tablet 1 mg PO Q8H PRN Anxiety 09/23/23 11/08/23 History memantine 10 mg tablet 10 mg PO BID 09/23/23 11/08/23 History morphine 5 mg/mL injection solution 0 mg continuous subcutaneous 09/23/23 11/08/23 History infusion CONTINOUS promethazine 12.5 mg tablet 12.5 mg PO Q6H PRN NAUSEA/VOMITING 09/23/23 11/08/23 History ondansetron HCl 4 mg tablet 4 mg PO Q8H PRN nausea and 10/23/23 11/08/23 Rx vomiting #20 tabs zinc sulfate 50 mg zinc (220 mg) 50 mg PO DAILY 11/04/23 11/08/23 History tablet Saccharomyces boulardii 250 mg 250 mg PO BID #20 caps 11/06/23 11/08/23 Rx capsule (Florastor) cefdinir 300 mg capsule 300 mg PO BID 7 days #14 caps 11/06/23 11/08/23 Rx doxycycline hyclate 100 mg tablet 100 mg PO BID 7 days #14 tabs 11/06/23 11/08/23 Rx Past Med/Surg History Problem List (Updated 11/09/23 @ 05:11 by Leslie Waddell PA-C) Frequent falls (Acute) Altered mental status (Acute) Confusion Chest wall muscle strain (Acute) Pneumonia (Acute) Dehydration (Acute) Concussion (Acute) Head injury (Acute) Face lacerations (Acute) Fall (Acute) Right ureteral stone Encounter for pre-operative examination Anemia (Acute) IRON DEFICIENT ANEMIA AND REC'D IV IRON 10/06. Baseline HGB since 2017 ~9 HLD (hyperlipidemia) Gout Back pain FROM ACCIDENT AND 7 DIFFERENT FX AND FUSION GERD (gastroesophageal reflux disease) (Acute) Anxiety History of renal stone (Acute) S/P cysto/litho/stent 10/07 History of diverticulitis of colon remote Medical History (Updated 11/09/23 @ 05:11 by Leslie Waddell PA-C) History of fracture of right ankle Hx of fracture of skull 7 FX AND HAS SOME PROBLEMS WITH MEMORY Gastric ulcer Hydronephrosis B/L per KUB 10/12/18 Surgical History S/P ureteral stent placement History of cystoscopy W/ LITHO/BASKET STONE EXTRACTION - 10/07/18 [facility]. LMA #5. History of surgery on left wrist History of arthroscopy of right shoulder Hx of right knee surgery S/P insertion of intrathecal pump FOLLOW WITH DR LAKIA PACKER FROM [place] History of back surgery UPPER BACK FUSION, 7 DIFFERENT FRACTURES AND MULTIPLE SURGERIES AND IS FUSED multiple revisions H/O inguinal hernia repair H/O lithotripsy S/P exploratory laparotomy (Unknown) 2010 RUPTURED DIVERTICULI S/P appendectomy (Unknown) S/P cholecystectomy (Unknown) S/P gastric bypass mike en y (2011) Family History Mother DM type 2 (diabetes mellitus, type 2) Father DM type 2 (diabetes mellitus, type 2) Social History Smoking Status: Current every day smoker Tobacco Type: Smokeless Tobacco (Dip or Chew) Second Hand Exposure: No; Do You Dip or Chew Tobacco: Yes; Hx Alcohol Use: Yes Alcohol type: beer Hx Substance Use: No Preferred Language: Serbian Communication Ability: Effective Visual Impairment: No 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 Lungs- clear to auscultation no wheezing or crackles Heart- regular rate and rhythm; no murmur, no gallop. Abdomen- normal bowel sounds, soft, nontender, no distension. Extremities- no pretibial edema, no erythema seen. Neuro- alert, oriented x 2; PERRL, no facial palsy; no dysarthria; motor 5/5 bilaterally; co ordination of movements ok Skin- warm & dry Results & Data Results & Data Vital Signs (Past 12 Hours) Vital Signs Temp Pulse Resp BP Pulse Ox O2 Del Method 11/08/23 22:05 71 19 100 Room Air 11/08/23 21:23 81 11/08/23 20:53 99 Room Air 11/08/23 20:53 37.1 C 75 17 130/88 99 Room Air Diagnostic Findings Laboratory Results WBC 5.39 K/ul (4.8-10.8) 11/08/23 21:18 RBC 3.47 M/uL (4.70-6.10) L 11/08/23 21:18 Hgb 11.4 g/dl (14.0-18.0) L 11/08/23 21:18 Hct 33.4 % (42.0-52.0) L 11/08/23 21:18 MCV 96.3 fL (80.0-100.0) 11/08/23 21:18 MCH 32.9 pg (25.0-34.0) 11/08/23 21:18 MCHC 34.1 g/dL (32.0-36.0) 11/08/23 21:18 RDW Std Deviation 47.0 fL (36.4-46.3) H 11/08/23 21:18 RDW Coeff of Rogerio 13.2 % (11.5-14.5) 11/08/23 21:18 Plt Count 228 K/uL (130-400) 11/08/23 21:18 MPV 8.9 fL (9.4-12.4) L 11/08/23 21:18 Immature Gran % (Auto) 0.2 % 11/08/23 21:18 Neut % (Auto) 59.1 % 11/08/23 21:18 Lymph % (Auto) 28.6 % 11/08/23 21:18 Ransom % (Auto) 9.6 % 11/08/23 21:18 Eos % (Auto) 1.9 % 11/08/23 21:18 Baso % (Auto) 0.6 % 11/08/23 21:18 Neut # (Auto) 3.19 K/uL (1.40-6.50) 11/08/23 21:18 Lymph # (Auto) 1.54 K/uL (1.20-3.40) 11/08/23 21:18 Ransom # (Auto) 0.52 K/uL (0.11-0.59) 11/08/23 21:18 Eos # (Auto) 0.10 K/uL (0.00-0.50) 11/08/23 21:18 Baso # (Auto) 0.03 K/uL (0.00-0.20) 11/08/23 21:18 Immature Gran # (Auto) 0.01 K/uL (0.01-0.20) 11/08/23 21:18 PT 10.6 Seconds (9.0-12.0) 11/08/23 22:35 INR 1.0 (0.9-1.1) 11/08/23 22:35 APTT 35 Seconds (21-31) H 11/08/23 22:35 PTT Ratio 1.3 11/08/23 22:35 Sodium 136 mmol/L (136-145) 11/08/23 21:18 Potassium 3.7 mmol/L (3.5-5.1) 11/08/23 21:18 Chloride 100 mmol/L (98-107) 11/08/23 21:18 Carbon Dioxide 30 mmol/L (21-32) 11/08/23 21:18 Anion Gap 6 (3-11) 11/08/23 21:18 BUN 6 mg/dl (6-23) 11/08/23 21:18 Creatinine 1.06 mg/dl (0.6-1.4) 11/08/23 21:18 Est Cr Clr Drug Dosing 80.1 ml/min 11/08/23 21:18 Est GFR ( Amer) 88.0 ml/min 11/08/23 21:18 Est GFR (Non-Af Amer) 75.9 ml/min 11/08/23 21:18 BUN/Creatinine Ratio 5.7 (10-20) L 11/08/23 21:18 Glucose 83 mg/dl (70-99(Fasting)) 11/08/23 21:18 POC Glucose 83 mg/dl (70-99) 11/08/23 21:18 Calcium 9.1 mg/dl (8.6-10.3) 11/08/23 21:18 Magnesium 1.7 mg/dl (1.7-2.4) 11/08/23 21:18 Total Bilirubin 0.7 mg/dl (0.2-1.0) 11/08/23 21:18 AST 14 U/L (13-39) 11/08/23 21:18 ALT 8 U/L (7-52) 11/08/23 21:18 Alkaline Phosphatase 126 U/L (34-104) H 11/08/23 21:18 Troponin I High Sens 27.5 pg/ml (0-20) H 11/08/23 22:35 Total Protein 5.7 gm/dl (6.0-8.3) L 11/08/23 21:18 Albumin 3.4 gm/dl (3.4-5.0) 11/08/23 21:18 Globulin 2.3 gm/dl (2.5-4.0) L 11/08/23 21:18 Albumin/Globulin Ratio 1.5 (0.9-2) 11/08/23 21:18 Urine Color Yellow 11/08/23 21:22 Urine Appearance Clear (Clear) 11/08/23 21:22 Urine pH 5.5 (4.5-7.5) 11/08/23 21:22 Ur Specific [place] 1.004 (1.000-1.030) 11/08/23 21:22 Urine Protein Negative (Negative) 11/08/23 21:22 Urine Glucose (UA) Negative (Negative) 11/08/23 21:22 Urine Ketones Negative (Negative) 11/08/23 21:22 Urine Blood Negative (Negative) 11/08/23 21:22 Urine Nitrite Negative (Negative) 11/08/23 21:22 Urine Bilirubin Negative (Negative) 11/08/23 21:22 Urine Urobilinogen Negative (Negative) 11/08/23 21:22 Ur Leukocyte Esterase Negative (Negative) 11/08/23 21:22 ECG Additional Comments: ECG. Sinus rhythm with PACs at the rate of 76. Junctional ST depression. QTc 470 Code Status & VTE Plan VTE Prophylaxis Plan VTE Prophylaxis will be ordered: Yes
[2023-11-09] MEDS: OLANZapine 10 MG/2.1 ML SDV IM STA ×2 (02:38→19:56)
[2023-11-09] MEDS ORDERED: GABAPENTIN 1200MG ALCOHOL WITHDRAWAL LOAD PO STA (03:32)
[2023-11-09] MEDS ORDERED: LORazepam 2 MG in SYRINGE 1 ML IV PRN (03:32)
[2023-11-09] MEDS ORDERED: POLYETHYLENE (MIRALAX) 17 GM PACK PO PRN (03:32)
[2023-11-09] MEDS ORDERED: Ativan IV Alcohol Withdrawal--Active Protocol IV PRN (03:32)
[2023-11-09] MEDS ORDERED: LORazepam 1 MG in SYRINGE 0.5 ML IV PRN (03:32)
[2023-11-09] MEDS ORDERED: LORazepam 1 MG TAB PO PRN (03:32)
[2023-11-09] MEDS ORDERED: NITROGLYCERIN SL 0.4 MG/TAB TAB SL PRN (03:32)
[2023-11-09] MEDS ORDERED: LORazepam 3 MG in SYRINGE 1.5 ML IV PRN (03:32)
[2023-11-09] MEDS: MULTI-VITAMIN INFUSION 10 ML, THIAMINE HCL 100 MG, FOLIC ACID 1 MG in SODIUM CHLORIDE 0... IV ONE (04:31)
[2023-11-09] MEDS: GABAPENTIN 600 MG TAB PO ONE (04:56)
[2023-11-09] MEDS: DOXYCYCLINE HYCLATE 100 MG CAP PO SCH (05:12)
--- NOTE | 2023-11-09 07:00 | Electrocardiogram Report ---
Test Reason : Blood Pressure : / mmHG Vent. Rate : 076 BPM Atrial Rate : 076 BPM P-R Int : 132 ms QRS Dur : 100 ms QT Int : 418 ms P-R-T Axes : 076 038 061 degrees QTc Int : 470 ms Sinus rhythm with Premature atrial complexes Junctional ST depression, probably normal Incomplete right bundle branch block Borderline ECG When compared with ECG of 06-NOV-2023 16:45, Premature atrial complexes are now Present Confirmed by Mahesh Sebastian ([id number]) on 11/09/2023 6:59:45 AM Referred By: REFERRED SELF Confirmed By:Bry Sebastian
[2023-11-09 07:30] LABS: Basophils # (auto) 0.02 K/uL (0.00-0.20); Basophils % (auto) 0.4 %; Eosinophils # (auto) 0.12 K/uL (0.00-0.50); Eosinophils % (auto) 2.6 %; Hematocrit (blood only) 28.2 % (42.0-52.0); Hemoglobin 9.7 g/dl (14.0-18.0); Immature Granulocytes # (auto) 0.02 K/uL (0.01-0.20); Immature Granulocytes % (auto) 0.4 %; Lymphocytes # (auto) 1.29 K/uL (1.20-3.40); Lymphocytes % (auto) 28.2 %; Mean Corpuscular Hemoglobin 32.2 pg (25.0-34.0); Mean Corpuscular Hgb Conc 34.4 g/dL (32.0-36.0); Mean Corpuscular Volume 93.7 fL (80.0-100.0); Mean Platelet Volume 8.4 fL (9.4-12.4); Monocytes # (auto) 0.57 K/uL (0.11-0.59); Monocytes % (auto) 12.5 %; Neutrophils # (auto) 2.55 K/uL (1.40-6.50); Neutrophils % (auto) 55.9 %; Platelet Count 173 K/uL (130-400); RDW Coefficient of Variation 13.1 % (11.5-14.5); RDW Standard Deviation 44.7 fL (36.4-46.3); Red Blood Count 3.01 M/uL (4.70-6.10); White Blood Count 4.57 K/ul (4.8-10.8)
[2023-11-09 07:40] LABS: Albumin Level 2.8 gm/dl (3.4-5.0); BUN Creatinine Ratio 6.2 (10-20); Bilirubin Direct 0.3 mg/dl (0-0.2); Bilirubin,Total 1.1 mg/dl (0.2-1.0); Creatinine Clr Calc Pharmacy 87.5 ml/min; Est GFR (African American) 97.9 ml/min; Est GFR (Non-African American) 84.5 ml/min; Magnesium 1.7 mg/dl (1.7-2.4); Potassium 3.9 mmol/L (3.5-5.1); Total Protein 4.8 gm/dl (6.0-8.3)
[2023-11-09 07:45] LABS: Troponin I High Sensitivity 18.4 pg/ml (0-20)
--- NOTE | 2023-11-09 08:02 | XRay Report ---
XR chest 1V portable HISTORY: recent pneumonia COMPARISON: Chest 11/06/2023 FINDINGS: No pneumothorax. No pleural effusions. Thoracic spinal fusion hardware is partially visuali zed. The heart is normal in size. No evidence for pulmonary edema. There are small patchy bibasilar d ensities. IMPRESSION: Small patchy bibasilar densities. This may represent atelectasis or a pneumonia. ACT 112: Negative or not required by law. Electronically signed by: Matt Patel M.D. 11/09/2023 8:01 AM
[2023-11-09] MEDS: FOLIC ACID 1 MG in SYRINGE 9.8 ML IV SCH (09:24)
[2023-11-09] MEDS: THIAMINE HCL 100 MG in SYRINGE 9 ML IV SCH (09:24)
[2023-11-09] MEDS: DOCUSATE SODIUM 100 MG CAP PO SCH (09:31)
[2023-11-09] MEDS: CYCLOBENZAPRINE HCL 10 MG TAB PO SCH (09:31)
[2023-11-09] MEDS: ATORVASTATIN 10 MG TAB PO SCH (09:31)
[2023-11-09] MEDS: PANTOprazole 40 MG TAB PO SCH (09:32)
[2023-11-09] MEDS: MEMANTINE HCL 10 MG TAB PO SCH (09:32)
[2023-11-09] MEDS: SACCHAROMYCES BOULARDII 250 MG CAP PO SCH (09:33)
[2023-11-09] MEDS: allopurinoL 300 MG TAB PO SCH (09:33)
[2023-11-09] MEDS: ZINC SULFATE 220 MG CAPSULE PO SCH (09:33)
[2023-11-09] MEDS: ENOXAPARIN INJ 40 MG/0.4 ML SYR SQ SCH (09:37)
[2023-11-09] MEDS: CYANOCOBALAMIN (B-12) 500 MCG TABLET PO SCH (10:59)
[2023-11-09] MEDS: THIAMINE HCL 500 MG in SODIUM CHLORIDE 0.9% 50 ML IV SCH (11:00)
[2023-11-09] MEDS: GABAPENTIN 600 MG TAB PO SCH (13:18)
--- NOTE | 2023-11-09 13:57 | Psychiatric Consultation ---
Date of Consultation November 09, 2023 Impression / Recommendations Impression 58 yo man with a history of TBI, major neurocognitive disorder, gout, CAD, GERD, obesity s/p gastric bypass, diverticulitis, CKD stage III, iron deficiency anemia, anxiety admitted medically for increased confusion and agitation. Psychiatry consulted for medication management recommendations for agitation. Diagnostically consistent with altered mental status with differential including possibility for agitated delirium given increased mood lability, agitation and restlessness since a fall earlier this week versus worsening of neurocognitive disorder with behavioral disturbance. Reported has been diagnosed with Alzheimer's disease, given his young age and rapidity of worsening dementia, would wonder about frontotemporal dementia but defer to neurology. If tearfulness persists could also consider addition of low dose SSRI as co-morbid depression possible, however increased tearfulness and appetite changes are often seen as part of the progression of neurocognitive disorders. Goal in dementia is to avoid medication management of behaviors if possible by maximizing non-pharmacologic strategies for behavioral management. However, given worsening agitation/aggression would consider starting antipsychotic as risk/benefit profile now favors treatment. Note all antipsychotic medications carry black box warning for increased risk of all-cause mortality in setting of dementia. Discussed this with Alisha, she understands this risk, feels benefits outweigh risks at this point given goal of maintaining him in the home environment for as long as possible and that medication to control agitation may help with this. (1) Major neurocognitive disorder as late effect of traumatic brain injury with behavioral disturbance: (2) Altered mental status: Altered mental status type: unspecified Qualified Code(s): R41.82 - Altered mental status, unspecified (3) Head injury: Encounter type: initial encounter Qualified Code(s): S09.90XA - Unspecified injury of head, initial encounter Plan -Recommend initial trial of Seroquel 12.5mg qAM and 50mg HS; if not effective enough but tolerated then morning dose can be titrated up to 25mg qAM or additional mid-day dose of 12.5mg or option for additional 25mg daily prn. HS dose can also be titrated up to 100mg HS if needed to help with sleep/sundowning behaviors. -Option to trial low dose SSRI such as sertraline 25mg daily if tearfulness persists -Continue medical workup to rule out and treat any underlying causes possibly contributing to potential delirium, avoid or limit use of deliriogenic medications (benzodiazepines, opioids, anticholinergics). -Given history of uncertain alcohol use agree with AWSS, would utilize ativan if needed for withdrawal symptoms, otherwise would attempt to avoid for agitation a s this will worsen risk of falls, confusion and can be disinhibiting. -For behavioral emergency: olanzapine 2.5 mg IM x 1 (DO NOT exceed 10mg per 24 hours, check EKG if IM dose required, NEVER co-administer with IM or IV benzodiazepines). Overall, I spent a total of 60 minutes with this case including review of chart records, review of labwork, review of EKG QTc, direct evaluation of the patient at bedside, discussion of the patient with the Nurse and with the hospitalist provider, discussion with the psychiatric liason during clinical rounds, review of collateral historian information from the family and documentation in the electronic health record. Psych History Identifying Data 58 yo man with a history of TBI, major neurocognitive disorder, gout, CAD, GERD, obesity s/p gastric bypass, diverticulitis, CKD stage III, iron deficiency anemia, anxiety admitted medically for increased confusion and agitation. Psychiatry consulted for medication management recommendations for agitation. Chief Complaint sleeping History of Present Illness Kana was admitted for increased agitation at home over the last week following a fall and head injury on 11/04/2023 with ED visits on 11/05/2023 and 11/06/2023 for confusion, injuries from the fall and agitation. Kana required olanzapine 2.5mg IM overnight at about 2am for increased ag itation with subsequent improvement. On my attempt to see him mid-day he was sleeping after getting up to use the bathroom. Therefore recent history provided by his , Alisha, who reports she has POA for medical decisions. Alisha describes remote history of TBI, ~2003, with subsequent lessening of his anger and change in personality for better. However, he then began to develop memory issues with fairly dramatic and rapid worsening of dementia since June. He's been seen by neurology and had neuropsychological testing. Alisha reports frequent sundowning behaviors including that he'll become confused and get up in the middle of the night and pee in the closet or washer and dryer. He has responded well to trazodone for sleep. When he gets agitated and starts to have sundowning symptoms she'll help him get ready for and go to bed and that usually helps. However, since his fall earlier this week he's been increasingly agitated and confused even during the day. He often gets confused about whether or not their home is their home and his appetite has been very low (has lost a significant amount of weight). She also reports he's been crying a lot in recent days. She has been trying to have him taper down on his alcohol use, he often drinks beer, but sometimes he gets upset if she tries to limit his use or he may drink beer if she's out of the house briefly. She's going to start buying him non- alcoholic beer in hopes he won't necessarily recognize the difference and to reduce conflict around her attempts to limit this. She's purchased alarms for the doors in case he wanders at night and he no longer drives nor has access to car keys. She and their daughter secured all the guns and knifes in the home so he has no access to anything. Allergies Allergy/AdvReac Type Severity Reaction Status Date / Time Penicillins Allergy Severe SEE COMMENT Verified 11/08/23 22:11 erythromycin base Allergy Intermediate Itching Verified 11/08/23 22:11 indomethacin Allergy Intermediate HIVES Verified 11/08/23 22:11 neomycin Allergy Intermediate BLISTERS Verified 11/08/23 22:11 vancomycin Allergy Intermediate ITCHING--ALL Verified 11/08/23 22:11 MYCIN DRUGS fentanyl AdvReac Severe "DID NOT Verified 11/08/23 22:11 TOLERATE"-patch- "went nuts" ibuprofen AdvReac Severe Ulcer Verified 11/08/23 22:11 history ketorolac AdvReac Mild NAUSEA Verified 11/08/23 22:11 aspirin AdvReac Unknown "BLEEDING" Verified 11/08/23 22:11 S/P GASTRIC BYPASS Home Medications Medication Instructions Recorded Confirmed Type allopurinol 300 mg tablet 300 mg PO QAM 01/04/18 11/08/23 History atorvastatin 10 mg tablet 10 mg PO QAM 01/04/18 11/08/23 History pantoprazole 40 mg tablet,delayed 40 mg PO BID 10/02/18 11/08/23 History release Prune-Lax 2 tab PO HS 09/23/23 11/08/23 History colchicine 0.6 mg tablet 0.6 mg PO BID PRN GOUT FLARE UPS 09/23/23 11/08/23 History cyclobenzaprine 10 mg tablet 10 mg PO BID 09/23/23 11/08/23 History docusate sodium 100 mg capsule 200 mg PO BID 09/23/23 11/08/23 History famotidine 40 mg tablet 40 mg PO HS 09/23/23 11/08/23 History lorazepam 1 mg tablet 1 mg PO Q8H PRN Anxiety 09/23/23 11/08/23 History memantine 10 mg tablet 10 mg PO BID 09/23/23 11/08/23 History morphine 5 mg/mL injection solution 0 mg continuous subcutaneous 09/23/23 11/08/23 History infusion CONTINOUS promethazine 12.5 mg tablet 12.5 mg PO Q6H PRN NAUSEA/VOMITING 09/23/23 11/08/23 History ondansetron HCl 4 mg tablet 4 mg PO Q8H PRN nausea and 10/23/23 11/08/23 Rx vomiting #20 tabs zinc sulfate 50 mg zinc (220 mg) 50 mg PO DAILY 11/04/23 11/08/23 History tablet Saccharomyces boulardii 250 mg 250 mg PO BID #20 caps 11/06/23 11/08/23 Rx capsule (Florastor) cefdinir 300 mg capsule 300 mg PO BID 7 days #14 caps 11/06/23 11/08/23 Rx doxycycline hyclate 100 mg tablet 100 mg PO BID 7 days #14 tabs 11/06/23 11/08/23 Rx Patient History Medical History (Updated 11/09/23 @ 15:11 by Gila Worrell MD) History of fracture of right ankle Hx of fracture of skull 7 FX AND HAS SOME PROBLEMS WITH MEMORY Gastric ulcer Hydronephrosis B/L per [facility] 10/12/18 Surgical History S/P ureteral stent placement History of cystoscopy W/ LITHO/BASKET STONE EXTRACTION - 10/07/18 [facility]. LMA #5. History of surgery on left wrist History of arthroscopy of right shoulder Hx of right knee surgery S/P insertion of intrathecal pump FOLLOW WITH DR LAKIA PACKER FROM [facility] History of back surgery UPPER BACK FUSION, 7 DIFFERENT FRACTURES AND MULTIPLE SURGERIES AND IS FUSED multiple revisions H/O inguinal hernia repair H/O lithotripsy S/P exploratory laparotomy (Unknown) 2010 RUPTURED DIVERTICULI S/P appendectomy (Unknown) S/P cholecystectomy (Unknown) S/P gastric bypass mike en y (2010) Family History Mother DM type 2 (diabetes mellitus, type 2) Father DM type 2 (diabetes mellitus, type 2) Social History Smoking Status: Current every day smoker Tobacco Type: Smokeless Tobacco (Dip or Chew) Second Hand Exposure: No; Do You Dip or Chew Tobacco: Yes; Hx Alcohol Use: Yes Alcohol type: beer Hx Substance Use: No Preferred Language: Faroese Communication Ability: Impaired Visual Impairment: No Limitations Mold Parter Required: No Beliefs That Will Affect Care: None Current Living Situation: Family Current Living Situation Comment: lives with Feels Safe at Home: Yes Assistive Devices: Walker Physical Exam Psychiatric: Sleeping Vital Signs (Past 24 Hours): Last Vital Signs Temp 37.0 C 11/09/23 04:56 Pulse 65 11/09/23 10:58 Resp 12 11/09/23 10:58 BP 118/86 11/09/23 10:58 Pulse Ox 97 11/09/23 10:58 O2 Del Method Room Air 11/09/23 10:58 Review of Systems Unobtainable due to cognitive status Results & Data (PSY) Medications Administered Allopurinol (Allopurinol 300 Mg Tab) [facility] [place] Stop: 12/09/23 08:59 Last Admin: 11/09/23 09:33 Dose: 300 mg Documented By: TREVER Atorvastatin Calcium (Atorvastatin 10 Mg Tab) 10 mg PO QAM [facility] Stop: 12/09/23 08:59 Last Admin: 11/09/23 09:31 Dose: 10 mg Documented By: TREVER Cyanocobalamin (Cyanocobalamin (B-12) 500 Mcg Tablet) 1,000 mcg PO QAM [facility] Stop: 12/09/23 09:59 Last Admin: 11/09/23 11:03 Dose: Not Given Documented By: TREVER Cyclobenzaprine HCl (Cyclobenzaprine Hcl 10 Mg Tab) 10 mg PO BID [facility] Stop: 12/09/23 08:59 Last Admin: 11/09/23 09:31 Dose: 10 mg Documented By: TREVER Docusate Sodium (Docusate Sodium 100 Mg Cap) 200 mg PO BID [facility] Stop: 12/09/23 08:59 Last Admin: 11/09/23 09:31 Dose: 200 mg Documented By: TREVER Doxycycline Hyclate (Doxycycline Hyclate 100 Mg Cap) 100 mg PO Q12H [facility] Stop: 11/16/23 05:59 Last Admin: 11/09/23 05:12 Dose: 100 mg Documented By: COURTNEY Enoxaparin Sodium (Enoxaparin Inj 40 Mg/0.4 Ml Syr) 40 mg SQ Q24H [facility] Stop: 12/09/23 08:59 Last Admin: 11/09/23 09:37 Dose: 40 mg Documented By: TREVER Gabapentin (Gabapentin 600 Mg Tab) 600 mg PO Q6H [facility] Stop: 11/09/23 18:01 Last Admin: 11/09/23 13:18 Dose: Not Given Documented By: TREVER Folic Acid 1 mg/ Syringe 10 mls @ 5 mls/min IV QAM [facility] Stop: 12/09/23 08:59 Last Admin: 11/09/23 09:24 Dose: 5 mls/min Documented By: TREVER Thiamine HCl 500 mg/ Sodium (Chloride) 55 mls @ 210 mls/hr IV Q8H [facility] Stop: 11/11/23 09:59 Last Infusion: 11/09/23 11:16 Dose: Infused Documented By: Admin: 11/09/23 11:00 Dose: 210 mls/hr Documented By: TREVER Memantine (Memantine Hcl 10 Mg Tab) 10 mg PO BID [facility] Stop: 12/09/23 08:59 Last Admin: 11/09/23 09:32 Dose: 10 mg Documented By: TREVER Pantoprazole Sodium (Pantoprazole 40 Mg Tab) 40 mg PO BID [facility] Stop: 12/09/23 08:59 Last Admin: 11/09/23 09:32 Dose: 40 mg Documented By: TREVER Saccharomyces Boulardii (Saccharomyces Boulardii 250 Mg Cap) 250 mg PO BID [facility] Stop: 12/09/23 08:59 Last Admin: 11/09/23 09:33 Dose: 250 mg Documented By: TREVER Zinc Sulfate (Zinc Sulfate 220 Mg Capsule) 220 mg PO DAILY [facility] Stop: 12/09/23 08:59 Last Admin: 11/09/23 09:33 Dose: 220 mg Documented By: TREVER Coding Level of Care Code 07696 IN/OBS CONSULT LVL 4,60M Diagnoses Major neurocognitive disorder as late effect of traumatic brain injury with behavioral disturbance S06.9X9S; F02.818 Altered mental status R41.82 Altered mental status type: unspecified Head injury S09.90XA Encounter type: initial encounter
--- NOTE | 2023-11-09 15:59 | Communication Note ---
Date of Service: November 09, 2023 Patient seen and examined in the emergency department He was lying on the bed sleeping; not in distress His was at bedside; reported that patient has been calm throughout the day. Vitals are stable and he is saturating well on room air On physical exam; Constitutional: Sleeping; not in any distress Respiratory: Bilateral vesicular breath sound Cardiovascular: RRR, no murmur, no edema Vessels: no JVD or carotid bruit Abdomen: normal bowel sounds, soft, nontender, no hepatosplenomegaly Musculoskeletal: no cyanosis or clubbing, extremities motor strength 5/5 Skin: no rashes, warm and dry normal turgor Neurologic: PERRL, EOMI, accommodation nl, no face palsy, no dysarthria CN's II- XI intact bilaterally and moves all extremities Psychiatric: A+Ox3, euthymic affect Echocardiogram showed EF of 50 to 55%; mild concentric LVH Patient was evaluated by psychiatry; recommend trial of Seroquel. Plan to continue alcohol withdrawal protocol Discussed about patient's rapidly progressive dementia with patient's . She acknowledges that patient has significant cognitive impairment; has recent weight loss as well due to decreased appetite. Discussed CODE STATUS; she reports that she would not want aggressive intervention like chest compression or mechanical ventilation. CODE STATUS changed to DNR/DNI Full progress note to follow tomorrow Please note the above document was generated using voice recognition software. It may contain grammatical, syntax or spelling errors. Any formal questions or concerns about the content, text or information contained within the body of this dictation should be directly addressed to the provider for clarification
[2023-11-09] MEDS: QUEtiapine FUMARATE 25 MG TABLET PO SCH (20:34)
[2023-11-09] MEDS: FAMOTIDINE 40 MG TABLET PO SCH (20:38)
[2023-11-10 06:53] LABS: Basophils # (auto) 0.04 K/uL (0.00-0.20); Basophils % (auto) 0.9 %; Eosinophils # (auto) 0.07 K/uL (0.00-0.50); Eosinophils % (auto) 1.5 %; Hematocrit (blood only) 30.3 % (42.0-52.0); Hemoglobin 10.4 g/dl (14.0-18.0); Immature Granulocytes # (auto) 0.01 K/uL (0.01-0.20); Immature Granulocytes % (auto) 0.2 %; Lymphocytes # (auto) 1.44 K/uL (1.20-3.40); Lymphocytes % (auto) 30.6 %; Mean Corpuscular Hemoglobin 32.4 pg (25.0-34.0); Mean Corpuscular Hgb Conc 34.3 g/dL (32.0-36.0); Mean Corpuscular Volume 94.4 fL (80.0-100.0); Mean Platelet Volume 8.8 fL (9.4-12.4); Monocytes # (auto) 0.51 K/uL (0.11-0.59); Monocytes % (auto) 10.9 %; Neutrophils # (auto) 2.63 K/uL (1.40-6.50); Neutrophils % (auto) 55.9 %; Platelet Count 214 K/uL (130-400); RDW Coefficient of Variation 13.1 % (11.5-14.5); RDW Standard Deviation 45.4 fL (36.4-46.3); Red Blood Count 3.21 M/uL (4.70-6.10)
[2023-11-10 07:09] LABS: BUN Creatinine Ratio 8.6 (10-20); Calcium 8.3 mg/dl (8.6-10.3); Creatinine Clr Calc Pharmacy 87.5 ml/min; Est GFR (African American) 103.1 ml/min; Est GFR (Non-African American) 88.9 ml/min; Potassium 3.5 mmol/L (3.5-5.1)
[2023-11-10] MEDS: GABAPENTIN 600 MG TAB PO SCH (08:29)
--- NOTE | 2023-11-10 09:01 | Hospitalist Progress Note ---
Date of Service November 10, 2023 Assessment & Plan (1) Confusion: Plan: 58-year-old male with past medical history significant for gout, right upper lobe pulmonary, CAD, GERD, obesity s/p gastric bypass, GI bleed from gastric bypass, diverticulitis, CKD stage III, iron deficiency anemia, anxiety, history of kidney stones who lives at home with his was brought in because of confusion and agitation and frequent falls. 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 His MMSE 9/30 done by neurology On June 2023 and neurology thinks now he has moderate to severe dementia likely Alzheimer's superimposed on remote TBI contributed from chronic pain and medication side effects and B12 and folate deficiency. Because of history of GI bleed neurology did not want to give cholinesterase inhibitors as they are contraindicated and memantine was added. As per patient knows his name. Sometimes does not know her name. Sometimes does not know that he is in the house. And he was been falling frequently. This is fifth ER visit since September 23 2023 for falls. Last ER visit on November 05 CT scan showed possible pneumonia and right 11th rib fracture possibly subacute and was discharged on Omnicef and doxycycline. Patient also drinks alcohol daily as well; 4-5 beers a day. He is admitted for dementia with behavioral disorder, possible alcohol withdrawal Major neurocognitive disorder with behavioral disturbance Frequent falls History of traumatic brain injury in the past and recent progression of dementia; diagnosed moderate to severe Alzheimer's dementia. Evaluated by psychiatry; recommended trial of Seroquel. Started on Seroquel 25 mg at night.EKG from today reviewed; QTc of 491. Decrease seroquel to 12.5mg hs. ekg daily. Delirium precaution Continue memantine PT OT eval Alcohol use disorder Possible Alcohol withdrawal As per history, patient drinks alcohol daily Will monitor for any signs and symptoms of alcohol withdrawal Continue gabapentin and Ativan Moderate to severe dementia Continue memantine Monitor for delirium Elevated troponin High sensitive troponin elevated to 24 on admission; down trended and normalized EKG on admission personally reviewed; sinus rhythm with PACs; incomplete right bundle branch block. Echocardiogram shows EF of 50 to 55%; mild concentric LVH Monitor on telemetry GERD on Pepcid and Protonix, continue Chronic pain Seems to be on morphine pump Gout On allopurinol, continue History of calcific nonobstructive CAD On statin, continue History of gastric bypass surgery Vitamin b12 level borderline Started on oral supplement DVT prophylaxis Lovenox Disposition Med/telemetry. PT/OT eval ordered DNR/DNI Time spent evaluating patient, direct bedside care, chart review, placing orders, interpretation of diagnostic studies, discussion with consultants, patient, and family members, as well as other required patient management activities is 50 minutes Please note the above document was generated using voice recognition software. It may contain grammatical, syntax or spelling errors. Any formal questions or concerns about the content, text or information contained within the body of this dictation should be directly addressed to the provider for clarification Admission and Anticipated Discharge Date Admission Date: November 09, 2023 Subjective Patient appears to be calm and cooperative; he is alert and oriented to self and place. He does not appear to be in alcohol withdrawal or delirious No significant events overnight Review of Systems Review of Systems: All systems reviewed & are unremarkable except as noted in Subjective Physical Exam Physical Exam: General- Not in acute distress Lungs- clear to auscultation no wheezing or crackles Heart- regular rate and rhythm; no murmur, no gallop. Abdomen- normal bowel sounds, soft, nontender, no distension. Extremities- no pretibial edema, no erythema seen. Neuro- alert, oriented x 2; PERRL, no facial palsy; no dysarthria; motor 5/5 bilaterally; Skin- warm & dry Results & Data Results & Data Vital Signs (Past 12 Hours) Vital Signs Temp Pulse Pulse Resp BP BP Pulse Ox 11/10/23 07:26 36.4 C L 66 15 125/87 100 11/10/23 05:08 11/10/23 02:29 36.1 C L 66 14 131/99 98 11/09/23 21:42 87 11/09/23 21:09 84 Pulse Ox O2 Del Method O2 Del Method 11/10/23 07:26 Room Air 11/10/23 05:08 94 Room Air 11/10/23 02:29 Room Air 11/09/23 21:42 11/09/23 21:09
--- NOTE | 2023-11-10 17:07 | Electrocardiogram Report ---
Test Reason : Blood Pressure : */* mmHG Vent. Rate : 71 BPM Atrial Rate : 71 BPM P-R Int : 126 ms QRS Dur : 104 ms QT Int : 452 ms P-R-T Axes : 64 18 40 degrees QTcB Int : 491 ms Sinus rhythm with occasional Premature ventricular complexes Low voltage QRS Incomplete right bundle branch block Prolonged QT Abnormal ECG When compared with ECG of 08-NOV-2023 21:12, Premature ventricular complexes are now Present Premature atrial complexes are no longer Present Incomplete right bundle branch block is now Present Confirmed by Mahesh Sebastian ([id number]) on 11/10/2023 5:07:23 PM Referred By: REFERRED SELF Confirmed By: Mahesh Sebastian
[2023-11-10] MEDS: QUEtiapine FUMARATE 25 MG TABLET PO SCH (20:20)
[2023-11-11] MEDS: GABAPENTIN 600 MG TAB PO SCH (09:42)
--- NOTE | 2023-11-11 09:43 | Hospitalist Progress Note ---
Date of Service November 11, 2023 Assessment & Plan (1) Confusion: Plan: 58-year-old male with past medical history significant for gout, right upper lobe pulmonary, CAD, GERD, obesity s/p gastric bypass, GI bleed from gastric bypass, diverticulitis, CKD stage III, iron deficiency anemia, anxiety, history of kidney stones who lives at home with his was brought in because of confusion and agitation and frequent falls. 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 His MMSE 9/30 done by neurology On June 2023 and neurology thinks now he has moderate to severe dementia likely Alzheimer's superimposed on remote TBI contributed from chronic pain and medication side effects and B12 and folate deficiency. Because of history of GI bleed neurology did not want to give cholinesterase inhibitors as they are contraindicated and memantine was added. As per patient knows his name. Sometimes does not know her name. Sometimes does not know that he is in the house. And he was been falling frequently. This is fifth ER visit since September 23 2023 for falls. Last ER visit on November 05 CT scan showed possible pneumonia and right 11th rib fracture possibly subacute and was discharged on Omnicef and doxycycline. Patient also drinks alcohol daily as well; 4-5 beers a day. He is admitted for dementia with behavioral disorder, possible alcohol withdrawal Major neurocognitive disorder with behavioral disturbance Frequent falls History of traumatic brain injury in the past and recent progression of dementia; diagnosed moderate to severe Alzheimer's dementia. Evaluated by psychiatry; recommended trial of Seroquel. Started on Seroquel 25 mg at night.EKG on 11/10/23 showed qtc of 491. Dose of Seroquel decerased to 12.5mg hs. EKG today shows improvement in QTc of 463. Will continue on current of Seroquel for the time being. Delirium precaution Continue memantine PT OT evaluation Alcohol use disorder Possible Alcohol withdrawal As per history, patient drinks alcohol daily Will monitor for any signs and symptoms of alcohol withdrawal Continue gabapentin and Ativan Moderate to severe dementia Continue memantine Monitor for delirium Elevated troponin High sensitive troponin elevated to 24 on admission; down trended and normalized EKG on admission personally reviewed; sinus rhythm with PACs; incomplete right bundle branch block. 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 PT/OT eval ordered. Discussed with patient's over the phone. Plan is to get him to rehab if he qualifies for it. If PT OT do not recommend rehab; patient to go home with family; possibly tomorrow a.m. DNR/DNI Please note the above document was generated using voice recognition software. It may contain grammatical, syntax or spelling errors. Any formal questions or concerns about the content, text or information contained within the body of this dictation should be directly addressed to the provider for clarification Admission and Anticipated Discharge Date Admission Date: November 09, 2023 Subjective Patient seen and examined at bedside. He is calm and composed; no periods of a gitation overnight He is oriented to self and place. Does not appear to be in any distress Review of Systems Review of Systems: All systems reviewed & are unremarkable except as noted in Subjective Physical Exam Physical Exam: General- Not in acute distress Lungs- clear to auscultation no wheezing or crackles Heart- regular rate and rhythm; no murmur, no gallop. Abdomen- normal bowel sounds, soft, nontender, no distension. Extremities- no pretibial edema, no erythema seen. Neuro- alert, oriented x self; PERRL, no facial palsy; no dysarthria; motor 5/5 bilaterally; Skin- warm & dry Results & Data Results & Data Vital Signs (Past 12 Hours) Vital Signs Temp Pulse Pulse Pulse Resp BP Pulse Ox 11/11/23 07:37 36.3 C L 56 L 18 118/82 99 11/11/23 02:44 36.7 C 62 18 128/87 99 11/10/23 23:05 71 11/10/23 22:45 36.7 C 66 18 119/81 98 O2 Del Method 11/11/23 07:37 Room Air 11/11/23 02:44 Room Air 11/10/23 23:05 11/10/23 22:45 Room Air
--- NOTE | 2023-11-11 17:26 | Electrocardiogram Report ---
Test Reason : Blood Pressure : */* mmHG Vent. Rate : 56 BPM Atrial Rate : 56 BPM P-R Int : 130 ms QRS Dur : 102 ms QT Int : 480 ms P-R-T Axes : 60 20 44 degrees QTcB Int : 463 ms Sinus bradycardia Low voltage QRS Right bundle branch block Borderline ECG When compared with ECG of 10-Nov-2023 06:38, Premature ventricular complexes are no longer Present Confirmed by Mahesh Sebastian ([id number]) on 11/11/2023 5:25:41 PM Referred By: REFERRED SELF Confirmed By: Mahesh Sebastian
[2023-11-12] MEDS ORDERED: PROMETHAZINE HCL INJ 25 MG/ML 1 ML VIAL IV PRN (12:14)
--- NOTE | 2023-11-12 12:48 | Fluoroscopy Report ---
FL video swallow CLINICAL HISTORY: assess for aspiration TECHNIQUE: Video fluoroscopy of the pharyngeal region was performed as barium mixtures of varying con sistencies were administered to the patient by the speech pathologist. A formal esophagram was not pe rformed. Comparison: None available at the time of this dictation. FINDINGS: Total fluoroscopy time: 1.47 minutes. Radiation dose: 4.72 mGy. Aspiration was seen within fluids on one swallow. There was no laryngeal vestibular penetration or fr ank tracheal aspiration. Pooling of barium was noted in the bilateral piriform sinuses and valleculae . Esophageal retention is seen with dysmotility. IMPRESSION: 1 instance of aspiration was seen. Dysmotility is seen. Please see the speech pathology report for further details. ACT 112: Negative or not required by law. Electronically signed by: Ritesh Morgan M.D. 11/12/2023 12:46 PM
[2023-11-12] MEDS: PROMETHAZINE 12.5 MG/50.5 ML BAG IV PRN (13:45)
--- NOTE | 2023-11-12 15:46 | Hospitalist Progress Note ---
Date of Service November 12, 2023 Assessment & Plan (1) Confusion: Plan: 58-year-old male with PMH of gout, CAD, GERD, obesity s/p gastric bypass, GI bleed from gastric bypass, diverticulitis, CKD stage III, iron deficiency anemia, anxiety, history of kidney stones who lives at home with his was brought in because of confusion and agitation and frequent falls. Patient had TBI with skull fracture at work in 2003 with subsequent slow progressive memory decline, worsened in late 2022 . His MMSE 9/30 done by neurology On June 2023 and neurology thinks now he has moderate to severe dementia likely Alzheimer's superimposed on remote TBI contributed from chronic pain and medication side effects and B12 and folate deficiency. Because of history of GI bleed neurology did not want to give cholinesterase inhibitors as they are contraindicated and memantine was added. As per patient knows his name. Sometimes does not know her name. Sometimes does not know that he is in the house. And he has been falling frequently. This is fifth ER visit since September 23 2023 for falls. Last ER visit on November 05 CT scan showed possible pneumonia and right 11th rib fracture possibly subacute and was discharged on Omnicef and doxycycline. Patient also drinks alcohol daily as well; 4-5 beers a day. He is admitted for dementia with behavioral disorder, possible alcohol withdrawal. He is being managed for the following: Major neurocognitive disorder with behavioral disturbance Frequent falls History of traumatic brain injury in the past and recent progression of dementia; diagnosed moderate to severe Alzheimer's dementia. B12 level 219, folate 5.02 Evaluated by psychiatry; recommended trial of Seroquel. Started on Seroquel 25 mg at night. EKG on 11/10/23 showed qtc of 491. Dose of Seroquel decreased to 12.5mg hs. EKG 11/10 shows improvement in QTc of 463. Will continue on current of Seroquel for the time being. Repeat EKG 11/12. Delirium precaution Continue memantine PT OT evaluation. c/w folate and b12 supplementation. Alcohol use disorder Possible Alcohol withdrawal As per history, patient drinks alcohol daily Will monitor for any signs and symptoms of alcohol withdrawal Continue gabapentin and Ativan Moderate to severe dementia: Continue memantine. Monitor for delirium Elevated troponin High sensitive troponin elevated to 24 on admission; down trended and normalized EKG on admission personally reviewed; sinus rhythm with PACs; incomplete right bundle branch block. Echocardiogram shows EF of 50 to 55%; mild concentric LVH Pt w/ no chest pain, ACS ruled out. 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 Appreciate recs. f/u imaging chest in 6 weeks. GERD on Pepcid and Protonix, continue Chronic pain: Seems to be on morphine pump Gout: On allopurinol, continue History of calcific nonobstructive CAD: On statin, continue History of gastric bypass surgery: Vitamin b12 level borderline. c/w oral supplement DVT prophylaxis: Lovenox Disposition: pt/ot. cm to assist w/ dc plan. DNR/DNI Please note the above document was generated using voice recognition software. It may contain grammatical, syntax or spelling errors. Any formal questions or concerns about the content, text or information contained within the body of this dictation should be directly addressed to the provider for clarification Admission and Anticipated Discharge Date Admission Date: November 09, 2023 Subjective Patient seen and examined at bedside. He is calm and composed; no periods of agitation overnight He is oriented to self only. Does not appear to be in any distress, denies fever/pain/cough, reports eating ok and m oving bowels ok. Physical Exam Physical Exam: General- Not in acute distress Lungs- clear to auscultation no wheezing or crackles Heart- regular rate and rhythm; no murmur, no gallop. Abdomen- normal bowel sounds, soft, nontender, no distension. Extremities- no pretibial edema, no erythema seen. Neuro- alert, oriented x self; PERRL, no facial palsy; no dysarthria; motor 5/5 bilaterally; Skin- warm & dry Results & Data Results & Data Vital Signs (Past 12 Hours) Vital Signs Temp Pulse Pulse Pulse Resp BP Pulse Ox 11/12/23 15:33 36.5 C 63 18 126/85 98 11/12/23 14:12 54 L 11/12/23 10:44 11/12/23 07:39 36.5 C 58 L 16 132/84 98 11/12/23 04:05 36.5 C 59 L 18 106/68 100 O2 Del Method 11/12/23 15:33 Room Air 11/12/23 14:12 11/12/23 10:44 Room Air 11/12/23 07:39 Room Air 11/12/23 04:05 Room Air
[2023-11-12] MEDS: ACETAMINOPHEN 325 MG TAB PO PRN (22:19)
[2023-11-12] MEDS: GABAPENTIN 600 MG TAB PO SCH (22:20)
[2023-11-13 08:10] LABS: BUN Creatinine Ratio 7.4 (10-20); Calcium 8.3 mg/dl (8.6-10.3); Creatinine Clr Calc Pharmacy 82.4 ml/min; Est GFR (African American) 101.7 ml/min; Est GFR (Non-African American) 87.8 ml/min; Magnesium 1.7 mg/dl (1.7-2.4); Phosphorus 3.2 mg/dl (2.5-4.9); Potassium 3.5 mmol/L (3.5-5.1)
[2023-11-13] MEDS: MAGNESIUM SULFATE / D5W 1 GM/100 ML BAG IV SCH (09:05)
[2023-11-13] MEDS: POTASSIUM CHLORIDE / WTR 10 MEQ/100 ML PLCT IV SCH (09:05)
[2023-11-13] MEDS: metroNIDAZOLE 500 MG TAB PO SCH (09:16)
--- NOTE | 2023-11-13 14:47 | Electrocardiogram Report ---
Test Reason : Blood Pressure : */* mmHG Vent. Rate : 55 BPM Atrial Rate : 55 BPM P-R Int : 136 ms QRS Dur : 150 ms QT Int : 476 ms P-R-T Axes : 61 18 27 degrees QTcB Int : 455 ms Sinus bradycardia Right bundle branch block Abnormal ECG When compared with ECG of 11-Nov-2023 05:30, Right bundle branch block is now Present Confirmed by Mahesh Sebastian ([id number]) on 11/13/2023 2:47:13 PM Referred By: REFERRED SELF Confirmed By: Mahesh Sebastian
--- NOTE | 2023-11-13 15:19 | Hospitalist Progress Note ---
Date of Service November 13, 2023 Assessment & Plan (1) Confusion: Plan: 58-year-old male with PMH of gout, CAD, GERD, obesity s/p gastric bypass, GI bleed from gastric bypass, diverticulitis, CKD stage III, iron deficiency anemia, anxiety, history of kidney stones who lives at home with his was brought in because of confusion and agitation and frequent falls. Patient had TBI with skull fracture at work in 2003 with subsequent slow progressive memory decline, worsened in late 2022 . His MMSE 9/30 done by neurology On June 2023 and neurology thinks now he has moderate to severe dementia likely Alzheimer's superimposed on remote TBI contributed from chronic pain and medication side effects and B12 and folate deficiency. Because of history of GI bleed neurology did not want to give cholinesterase inhibitors as they are contraindicated and memantine was added. As per patient knows his name. Sometimes does not know her name. Sometimes does not know that he is in the house. And he has been falling frequently. This is fifth ER visit since September 23 2023 for falls. Last ER visit on November 05 CT scan showed possible pneumonia and right 11th rib fracture possibly subacute and was discharged on Omnicef and doxycycline. Patient also drinks alcohol daily as well; 4-5 beers a day. He is admitted for dementia with behavioral disorder, possible alcohol withdrawal. He is being managed for the following: Major neurocognitive disorder with behavioral disturbance Frequent falls History of traumatic brain injury in the past and recent progression of dementia; diagnosed moderate to severe Alzheimer's dementia. B12 level 219, folate 5.02 Evaluated by psychiatry; recommended trial of Seroquel. Started on Seroquel 25 mg at night. EKG on 11/10/23 showed qtc of 491. Dose of Seroquel decreased to 12.5mg hs. EKG 11/10 shows improvement in QTc of 463. Will continue on current of Seroquel for the time being. EKG 11/12 w/ QTc of 455. Delirium precaution Continue memantine PT OT evaluation. c/w folate and b12 supplementation. Alcohol use disorder Possible Alcohol withdrawal As per history, patient drinks alcohol daily Will monitor for any signs and symptoms of alcohol withdrawal Continue gabapentin and Ativan Moderate to severe dementia: Continue memantine. Monitor for delirium Elevated troponin High sensitive troponin elevated to 24 on admission; down trended and normalized EKG on admission personally reviewed; sinus rhythm with PACs; incomplete right bundle branch block. Echocardiogram shows EF of 50 to 55%; mild concentric LVH Pt w/ no chest pain, ACS ruled out. 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 Appreciate recs. f/u imaging chest in 6 weeks. GERD on Pepcid and Protonix, continue Chronic pain: Seems to be on morphine pump Gout: On allopurinol, continue History of calcific nonobstructive CAD: On statin, continue History of gastric bypass surgery: Vitamin b12 level borderline. c/w oral supplement DVT prophylaxis: Lovenox Disposition: pt/ot. cm to assist w/ dc plan. pt's states she is unable to care for him at home currently as she has too many things going on at home. Will downgrade to med/surg. DNR/DNI Please note the above document was generated using voice recognition software. It may contain grammatical, syntax or spelling errors. Any formal questions or concerns about the content, text or information contained within the body of this dictation should be directly addressed to the provider for clarification Admission and Anticipated Discharge Date Admission Date: November 09, 2023 Subjective Patient seen and examined at bedside. He is calm and composed; no periods of agitation overnight per RN, eating ok, bm yesterday, 1 episode of small emesis in AM, no further events per rn. He is oriented to self only. Does not appear to be in any distress, denies fever/pain/cough. denies pain. Physical Exam Physical Exam: General- Not in acute distress Lungs- clear to auscultation no wheezing or crackles Heart- regular rate and rhythm; no murmur, no gallop. Abdomen- normal bowel sounds, soft, nontender, no distension. Extremities- no pretibial edema, no erythema seen. Neuro- alert, oriented x self; PERRL, no facial palsy; no dysarthria; motor 5/5 bilaterally; Skin- warm & dry Results & Data Results & Data Vital Signs (Past 12 Hours) Vital Signs Temp Pulse Pulse Pulse Resp BP Pulse Ox 11/13/23 12:59 78 11/13/23 11:46 36.4 C L 58 L 16 124/84 99 11/13/23 07:58 36.5 C 56 L 16 117/79 99 11/13/23 05:46 57 L 11/13/23 05:00 11/13/23 03:40 36.4 C L 61 16 119/82 99 O2 Del Method O2 Del Method 11/13/23 12:59 11/13/23 11:46 Room Air 11/13/23 07:58 Room Air 11/13/23 05:46 11/13/23 05:00 Room Air 11/13/23 03:40 Room Air
[2023-11-14 11:54] VITALS: BP 125/84; RESP 17; TEMP 97.5; O2SAT 93
--- NOTE | 2023-11-14 12:12 | Discharge Summary ---
Date of Service November 14, 2023 Admission HPI Per Admitting Provider 58-year-old male with past medical history significant for gout, right upper lobe pulmonary, CAD, GERD, obesity s/p gastric bypass, GI bleed from gastric bypass, diverticulitis, CKD stage III, iron deficiency anemia, anxiety, history of kidney stones who lives at home with his was brought in because of confusion and agitation and frequent falls. 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 His MMSE 9/30 done by neurology On June 2023 and neurology thinks now he has moderate to severe dementia likely Alzheimer's superimposed on remote TBI contributed from chronic pain and medication side effects and B12 and folate deficiency. Because of history of GI bleed neurology did not want to give cholinesterase inhibitors as they are contraindicated and memantine was added. As per patient knows his name. Sometimes does not know her name. Sometimes does not know that he is in the house. And he was been falling frequently. This is fifth ER visit since September 23 2023 for falls. Last ER visit on November 05 CT scan showed possible pneumonia and right 11th rib fracture possibly subacute and was discharged on Omnicef and doxycycline. At that time had some cough with bloody sputum but that got resolved. No fevers. No nausea /vomiting. No diarrhea or constipation. Micturating okay. Eating okay. No difficulty swallowing as per . Ambulates without support. As per Ativan for agitation was not helping. As per he also drinks 4-5 beers daily and she is trying to cut down. When does not check he drinks more. Currently could tell his name. Knows he is in the hospital. Could tell his 's name. Could tell his date of . Could not remember his daughter's name. Could not tell current dates. Cannot get much history from the patient currently. Past medical history. As mentioned above. Past surgical history. Amputation of left second finger. Colonoscopy. EGD. Exploratory laparotomy. ESWL. Laparoscopic procedure liver. Laparoscopic gastric restrictive bypass Geronimo-[id number] . Laparoscopic cholecystectomy. Appendectomy. Left inguinal hernia repair. Repair of the ligament. Spinal fusion surgery. Social history. . No smoking. Drinks 4-5 beers daily. No drug use. Family history. Father had diabetes. Hypertension. Mother had diabetes, hypertension and heart disorder Admission Exam Per Admitting Provider General- Not in acute distress Head- atraumatic Eyes- PERRL, ENT- oropharynx clear Neck- supple, no JVD. Lungs- clear to auscultation no wheezing or crackles Heart- regular rate and rhythm; no murmur, no gallop. Abdomen- normal bowel sounds, soft, nontender, no distension. Extremities- no pretibial edema, no erythema seen. Neuro- alert, oriented x 2; PERRL, no facial palsy; no dysarthria; motor 5/5 bilaterally; co ordination of movements ok Skin- warm & dry Principal Diagnosis Major neurocognitive disorder with behavioral disturbance Frequent falls Alcohol use disorder Moderate to severe dementia Discharge Exam General- Not in acute distress Lungs- clear to auscultation no wheezing or crackles Heart- regular rate and rhythm; no murmur, no gallop. Abdomen- normal bowel sounds, soft, nontender, no distension. Extremities- no pretibial edema, no erythema seen. Neuro- alert, oriented x self; PERRL, no facial palsy; no dysarthria; motor 5/5 bilaterally; Skin- warm & dry Discharge Data Allergies Allergy/AdvReac Type Severity Reaction Status Date / Time Penicillins Allergy Severe SEE COMMENT Verified 11/08/23 22:11 erythromycin base Allergy Intermediate Itching Verified 11/08/23 22:11 indomethacin Allergy Intermediate HIVES Verified 11/08/23 22:11 neomycin Allergy Intermediate BLISTERS Verified 11/08/23 22:11 vancomycin Allergy Intermediate ITCHING--ALL Verified 11/08/23 22:11 MYCIN DRUGS fentanyl AdvReac Severe "DID NOT Verified 11/08/23 22:11 TOLERATE"-patch- "went nuts" ibuprofen AdvReac Severe Ulcer Verified 11/08/23 22:11 history ketorolac AdvReac Mild NAUSEA Verified 11/08/23 22:11 aspirin AdvReac Unknown "BLEEDING" Verified 11/08/23 22:11 S/P GASTRIC BYPASS Consultations 11/08/23 23:40 ED Decision to Admit Stat 11/09/23 08:00 Consult Psychiatry Routine Ordered Studies 11/12/23 10:30 FL video swallow Routine Hospital Course (1) Confusion: 58-year-old male with PMH of gout, CAD, GERD, obesity s/p gastric bypass, GI bleed from gastric bypass, diverticulitis, CKD stage III, iron deficiency anemia, anxiety, history of kidney stones who lives at home with his was brought in because of confusion and agitation and frequent falls. Patient had TBI with skull fracture at work in 2003 with subsequent slow progressive memory decline, worsened in late 2022 . His MMSE 9/30 done by neurology On June 2023 and neurology thinks now he has moderate to severe dementia likely Alzheimer's superimposed on remote TBI contributed from chronic pain and medication side effects and B12 and folate deficiency. Because of history of GI bleed neurology did not want to give cholinesterase inhibitors as they are contraindicated and memantine was added. As per patient knows his name. Sometimes does not know her name. Sometimes does not know that he is in the house. And he has been falling frequently. This is fifth ER visit since September 23 2023 for falls. Last ER visit on November 05 CT scan showed possible pneumonia and right 11th rib fracture possibly subacute and was discharged on Omnicef and doxycycline. Patient also drinks alcohol daily as well; 4-5 beers a day. He is admitted for dementia with behavioral disorder, possible alcohol withdrawal. He was managed for the following: Major neurocognitive disorder with behavioral disturbance Frequent falls History of traumatic brain injury in the past and recent progression of dementia; diagnosed moderate to severe Alzheimer's dementia. B12 level 219, folate 5.02 Evaluated by psychiatry; recommended trial of Seroquel. Started on Seroquel 25 mg at night. EKG on 11/10/23 showed qtc of 491. Dose of Seroquel decreased to 12.5mg hs. EKG 11/10 shows improvement in QTc of 463. Will continue on current of Seroquel for the time being. EKG 11/12 w/ QTc of 455. Delirium precaution Continue memantine PT OT evaluation. c/w folate and b12 supplementation. will c/w low dose seroquel for now. pt's updated at bedside, encouraged her to set him up with outpatient psychiatry. She voiced understanding. Alcohol use disorder Possible Alcohol withdrawal As per history, patient drinks alcohol daily Monitor for any signs and symptoms of alcohol withdrawal - none noted Moderate to severe dementia: Continue memantine. Monitor for delirium Elevated troponin High sensitive troponin elevated to 24 on admission; down trended and normalized EKG on admission personally reviewed; sinus rhythm with PACs; incomplete right bundle branch block. Echocardiogram shows EF of 50 to 55%; mild concentric LVH Pt w/ no chest pain, ACS ruled out. Questionable pneumonia recent CAT scan Patient has no cough or fevers c/w dox and metron to complete the course. PEDIATRIC DENTAL ASSISTANT evaled; VFSS done 11/11. Appreciate recs. f/u imaging chest in 6 weeks. GERD on Pepcid and Protonix, continue Chronic pain: Seems to be on morphine pump Gout: On allopurinol, continue History of calcific nonobstructive CAD: On statin, continue History of gastric bypass surgery: Vitamin b12 level borderline. c/w oral supplement DVT prophylaxis: Lovenox DNR/DNI Updated patient's at bedside, patient is hemodynamically stable, patient's would like to take him home. She declined home health. Patient is being discharged with following instructions at the point of discharge: Follow-up with your primary care physician within a week time and likely you will need labs CBC/CMP/magnesium/phosphorus. You have progressive dementia, continue to follow-up with your neurology as prior. Seroquel has been added this admission for behavioral disturbances associated with dementia, recommend that you establish and follow-up with psychiatry as an outpatient as discussed at the bedside (with patient's .) Coordinate with your PCP office to set up the referrals. You are also treated for possible pneumonia, you will need repeat CT chest in about 6 weeks time to document resolution. Coordinate with your PCP office to set up the test. Take your medications as prescribed. Please make sure that you are able to get your medications today by calling your pharmacy before you leave the hospital so that your treatment continuity is not broken. Please note the above document was generated using voice recognition software. It may contain grammatical, syntax or spelling errors. Any formal questions or concerns about the content, text or information contained within the body of this dictation should be directly addressed to the provider for clarification Home Health Attestation I certify that this patient is under my care and that I, or a physicians transition assistant working with me, had a face to-face encounter that meets the home health [id number] encounter requirements with this patient. The encounter with the patient was in whole, or in part, for the following medical condition, which is the primary reason for home health care (list medical condition): I certify that, based on my findings, the following services are medically necessary home health services: My clinical findings support the need for the above services because: Further, I certify that my clinical findings support that this patient is homebound (i.e. absences from home require considerable and taxing effort and are for medical reasons or jew services or infrequently or of short duration when for other reasons) because: Certification for Home Health Services: Based on the above findings, I certify that this patient is confined to the home and needs intermittent alf care, physical therapy and/or speech therapy or continues to need occupational therapy. The patient is under my care, and I have initiated the establishment of the plan of care. This patient will be followed by a physician who will periodically review the plan of care. Total Time Total Time Spent Total Time Spent (In Minutes): 45 Discharge Plan Discharge Items Patient Disposition: Home - Self-Care Reason For Visit: CONFUSION/AGITATION, ELEVATED TROPONIN Discharge Diagnosis: Major neurocognitive disorder with behavioral disturbance Frequent falls Alcohol use disorder Moderate to severe dementia Condition on Discharge: Good Activity: Resume your previous activity Non-emergency contact: Primary Care Provider Call non-emergency contact if: you have any medication questions, your symptoms worsen and your temperature is above 101 Follow-up/Referrals: Charles Mayer, DO [Primary Care Provider] - Diet: Heart Healthy Diet Texture: Dental soft (bite-sized) Addtl Attending Provider Instructions: Follow-up with your primary care physician within a week time and likely you will need labs CBC/CMP/magnesium/phosphorus. You have progressive dementia, continue to follow-up with your neurology as prior. Seroquel has been added this admission for behavioral disturbances associated with dementia, recommend that you establish and follow-up with psychiatry as an outpatient as discussed at the bedside (with patient's .) Coordinate with your PCP office to set up the referrals. You are also treated for possible pneumonia, you will need repeat CT chest in about 6 weeks time to document resolution. Coordinate with your PCP office to set up the test. Take your medications as prescribed. Please make sure that you are able to get your medications today by calling your pharmacy before you leave the hospital so that your treatment continuity is not broken. Pending Studies at Discharge: No Stand-Alone Forms: My [employer], Smoking Cessation Medications and DC Order Prescriptions: New metronidazole 500 mg Tablet 500 mg PO TID 4 Days Qty: 12 0RF quetiapine 25 mg Tablet 12.5 mg PO HS Qty: 15 0RF cyanocobalamin (vitamin B-12) 500 mcg Tablet 500 mcg PO QAM Qty: 30 0RF Continued atorvastatin 10 mg tablet 10 mg PO QAM allopurinol 300 mg tablet 300 mg PO QAM pantoprazole 40 mg tablet,delayed release (DR/EC) 40 mg PO BID cyclobenzaprine 10 mg tablet 10 mg PO BID promethazine 12.5 mg Tablet 12.5 mg PO Q6H PRN (Reason: NAUSEA/VOMITING) famotidine 40 mg tablet 40 mg PO HS docusate sodium 100 mg Capsule 200 mg PO BID morphine 5 mg/mL Solution 0 mg continuous subcutaneous infusion CONTINOUS Rx Instructions: DOSING PER PAIN MANAGEMENT. lorazepam 1 mg Tablet 1 mg PO Q8H PRN (Reason: Anxiety) colchicine 0.6 mg Tablet 0.6 mg PO BID PRN (Reason: GOUT FLARE UPS) memantine 10 mg tablet 10 mg PO BID Prune-Lax 2 tab PO HS zinc sulfate 50 mg zinc (220 mg) Tablet 50 mg PO DAILY Saccharomyces boulardii [Florastor] 250 mg capsule 250 mg PO BID Qty: 20 0RF Rx Instructions: Did not start yet, swallow whole doxycycline hyclate 100 mg tablet 100 mg PO BID 3 Days Qty: 6 0RF Rx Instructions: Did not start yet. ondansetron HCl 4 mg tablet 4 mg PO Q8H PRN (Reason: nausea and vomiting) Qty: 20 0RF Discontinued cefdinir 300 mg capsule 300 mg PO BID 7 Days Qty: 14 0RF Rx Instructions: Did not start yet Discharge Orders: Discharge Order (Routine); Ordered 11/14/23 Ordered By: Cally Lambert Admission Data Admit Date/Time: 11/09/23 00:28 Attending Provider: Cally Lambert Admit Provider: Gianluca Isbell Primary Care Provider: Charles Mayer Other Providers: [facility]; Abrahan Rowell [facility]; Gianluca Isbell; Gila Worrell; Dipesh Contreras; Derick Williamson Jr; Lidia Moncada; Fanny Gramajo; Darshan Anders
[2023-11-14 12:23] VITALS: PULSE 71
--- NOTE | 2023-11-19 09:01 | Electrocardiogram Report ---
Test Reason : Blood Pressure : */* mmHG Vent. Rate : 56 BPM Atrial Rate : 56 BPM P-R Int : 130 ms QRS Dur : 100 ms QT Int : 486 ms P-R-T Axes : 65 23 45 degrees QTcB Int : 468 ms Sinus bradycardia Right bundle branch block Abnormal ECG When compared with ECG of 11-Nov-2023 05:30, Nonspecific T wave abnormality no longer evident in Anterior leads Confirmed by Toan Bowen ([id number]) on 11/19/2023 9:00:38 AM Referred By: REFERRED SELF Confirmed By: Toan Bowen
== END 2023-11-14 13:30 | disposition home or self-care (01) | DRG 56 ==
LOC: ED 21:08 → SUATTDRO 11-09 00:28 → EDINP 11-09 00:28 → 2N 11-09 03:33
DX: Z88.6 Allergy status to analgesic agent; S06.0X9A Concussion with loss of consciousness of unspecified duration, initial encounter; S01.112A Laceration without foreign body of left eyelid and periocular area, initial encounter; E78.5 Hyperlipidemia, unspecified; Z88.1 Allergy status to other antibiotic agents; E86.0 Dehydration; G30.9 Alzheimer's disease, unspecified; J18.9 Pneumonia, unspecified organism; Z88.0 Allergy status to penicillin; Z97.8 Presence of other specified devices; S29.011A Strain of muscle and tendon of front wall of thorax, initial encounter; F17.210 Nicotine dependence, cigarettes, uncomplicated; W19.XXXA Unspecified fall, initial encounter; S02.91XS Unspecified fracture of skull, sequela; Z88.8 Allergy status to other drugs, medicaments and biological substances; Z79.899 Other long term (current) drug therapy; Z88.5 Allergy status to narcotic agent; F03.90 Unspecified dementia, unspecified severity, without behavioral disturbance, psychotic disturbance, mood disturbance, and anxiety; S06.9XAS Unspecified intracranial injury with loss of consciousness status unknown, sequela; F10.239 Alcohol dependence with withdrawal, unspecified; G89.29 Other chronic pain; N18.30 Chronic kidney disease, stage 3 unspecified; F02.C11 Dementia in other diseases classified elsewhere, severe, with agitation; M10.9 Gout, unspecified; R79.89 Other specified abnormal findings of blood chemistry; R29.6 Repeated falls; Z87.19 Personal history of other diseases of the digestive system; Z87.39 Personal history of other diseases of the musculoskeletal system and connective tissue; I25.10 Atherosclerotic heart disease of native coronary artery without angina pectoris; Z98.84 Bariatric surgery status

== ENCOUNTER 2023-11-29 23:27 | Inpatient (IN) ==
--- OUTSIDE RECORDS SUMMARY | 2023-11-29 23:35 | External Medical Summary ---
Author Name Unknown Address Unknown Organization [facility] [address] [place] [id number] Laboratory Report Ordering Provider Test Date Status LUBNA MENDEZ 11/25/2023 14:59:43 Final Observation Date Value Abnormality Reference (Units ) Status SYNC LEUKOCYTES IN BLOOD BY AUTOMATED COUNT 11/25/2023 14:59:43 6.48 4.00-10.80 (K/uL) Final Segs 11/25/2023 14:59:43 61.0 40.0-75.0 (%) Final Lymphs % 11/25/2023 14:59:43 27.3 18.0-42.0 (%) Final Monos 11/25/2023 14:59:43 10.8 1.0-11.0 (%) Final Eosinophils 11/25/2023 14:59:43 0.6 0.0-6.0 (%) Final Basos 11/25/2023 14:59:43 0.3 0.0-2.0 (%) Final Absolute Segs 11/25/2023 14:59:43 3.95 1.80-7.70 (K/uL) Final Lymphs, absolute 11/25/2023 14:59:43 1.77 1.00-4.80 (K/ul) Final Monos, Abs 11/25/2023 14:59:43 0.70 0.00-1.10 (K/uL) Final Eos, Abs 11/25/2023 14:59:43 0.04 0.00-0.70 (K/uL) Final Basos, Abs 11/25/2023 14:59:43 0.02 0.00-0.20 (K/uL) Final Performing Location [facility] [address] [place] [id number]
--- OUTSIDE RECORDS SUMMARY | 2023-11-29 23:35 | External Medical Summary ---
Author Name Unknown Address Unknown Organization [id number] [address] [place] [id number] Laboratory Report Ordering Provider Test Date Status LUBNA MENDEZ 11/25/2023 14:59:43 Final Observation Date Value Abnormality Reference (Units ) Status WBC, Total 11/25/2023 14:59:43 6.48 4.00-10.8 0 (K/uL) Final RBC 11/25/2023 14:59:43 3.51 4.50-5.25 (M/uL) Final Hemoglobin 11/25/2023 14:59:43 11.3 Below low normal 14 .0-16.8 (g/dL) Final HCT 11/25/2023 14:59:43 34.5 Below low normal 40. 0-48.4 (%) Final MCV 11/25/2023 14:59:43 98.3 82.0-99.5 (fL) Final MCH 11/25/2023 14:59:43 32.2 27.0-34.0 (pg) Final MCHC 11/25/2023 14:59:43 32.8 32.0-36.0 (g/dL) Final RDW 11/25/2023 14:59:43 13.0 11.5-15.5 (%) Final Platelets 11/25/2023 14:59:43 314 140-400 (K /uL) Final MPV 11/25/2023 14:59:43 9.1 6.6-11.1 ( fL) Final Performing Location [facility] [address] [place] [id number]
--- OUTSIDE RECORDS SUMMARY | 2023-11-29 23:35 | External Medical Summary | Summary of Care ---
Author Name Unknown Organization [facility] Address [address] [address] Phone [phone] Care Team Providers Care Ob/Gyn Name Role Phone Charles Mayer DO Primary Care Provider Reason for Referral * Evaluate & Treat - Unlimited Visits (Within 3 days (urgent)) - Authorized Specialty Diagnoses / Procedures Referred By Heather neves Referred To Contact Psychiatry Diagnoses Hospital discharge follow-up Dementia with psychosis (HCC) Charles Mayer DO [address] [facility] [place] [address] Referral ID Status Reason Start Date Expiration Date Visits Requested Visits Authorized [id number] Authorized Specialty Services Required 11/25/[phone] Question Answer Referral Priority Within 3 days (urgent) Where should this appointment be scheduled? [facility] Is this referral for medication management? Yes Reason for Referral Dementia/Cognitive Impairment Specific Condition: Dementia/Cognitive Impairment with psychiatric complications Reason for Visit * Reason Onset Date Comments Hospital Follow-Up Pt here for H ospital F/u. Per , Alisha, has concerns about dementia, newly diagnosed end of June 2023. tiredness. asking if he should start Trazadone. NEW PATIENT Hospital Follow-Up 11/25/2023 Encounter Details Date Type Department Care Team (Late st Contact Info) Description 11/25/2023 2:20 PM EDT [facility] [address] [place] [address] Charles Mayer DO [address] [place] [address] Hospital discharge follow-up*; Dementia with psychosis (HCC); Idiopathic gout, unspecified chronicity, unspecified site; Coronary artery disease involving morongo coronary artery of morongo heart without angina pectoris; Stage 3a chronic kidney disease; Copper deficiency Allergies Active Allergy Reactions Criticality Noted Date Comments Aspirin 12/17/2018 Other reaction(s): "BLEEDING" S/P GASTRIC BYPASS Erythromycin Base High 11/04/2023 Other Reaction(s): Itching Fentanyl High 12/17/2018 Other reaction(s): "DID NOT TOLERATE"-patch- "went nuts" Ibuprofen High 12/17/2018 Other reaction(s): per md d/t ulcer history Indomethacin 12/26/2009 Indomethacin High [...] as of this encounter (statuses as of 11/25/2023) Medications Medication Sig Dispensed Refills Start Date End Date Status 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 90 Tab 0 5 Active Additional Information Patient taking differently:10 mg Oral TID PRN, Muscle spasms,Indications: daily, Reported on 09/24/2022 promethazine (PHENERGAN) 12.5 MG Tablet TAKE 1 TABLET BY MOUTH EVERY 6 HOURS NEEDED FOR NAUSEA AND VOMITING 0 Active Colchicine 0.6 MG Oral Tablet TAKE 1 TABLET BY MOUTH TWICE A DAY 60 Tab 1 Active Additional Information Patient not taking.Reported on 10/22/2023 LORazepam 1 MG Oral Tablet (Ativan)Indicati ons:Chronic chest pain,Anxiety,Spa sm of muscle Take 1 Tablet by mouth every 8 hours as needed for Other (severe spasm). 30 Tablet 2 Active Additional Information Patient not taking.Reported on 11/25/2023 Docusate Sodium 100 MG Oral Capsule (Colace) Take 1 Capsule by mouth in the morning and 1 Capsule before bedtime. Active Benefiber Oral Powder Take by mouth three times a day with meals. Active Atorvastatin Calcium 10 MG Oral Tablet (Lipitor)Indicat ions:Elevated cholesterol Take 1 Tablet by mouth in the morning. 100 Tablet 2 3 Active Cyclobenzaprine HCl 10 MG Oral Tablet (Flexeril) take one and one-half tablets by mouth in the morning and one and one-half tablets in the evening and one and one-half tablets before bedtime. 405 Tablet 1 3 Active Pantoprazole Sodium 40 MG Oral Tablet Delayed Release (Protonix)Indica tions:Acute gastric ulcer with hemorrhage TAKE ONE TABLET BY MOUTH TWICE A DAY - MORNING AND BEFORE BEDTIME 200 Tablet 1 4 06/22/19 25 Active Memantine HCl 10 MG Oral Tablet (Namenda) Take 1 Tablet by mouth in the morning and 1 Tablet before bedtime. 180 Tablet 3 4 Active Allopurinol 300 MG Oral Tablet (Zyloprim)Indica tions:Gout TAKE ONE TABLET BY MOUTH EVERY DAY 100 Tablet 1 4 Active Dicyclomine HCl 10 MG Oral Capsule (Bentyl) TAKE ONE CAPSULE BY MOUTH THREE TIMES A DAY IN THE MORNING, AT NOON, AND BEFORE BEDTIME 300 Capsule 3 4 10/21/19 25 Active Additional Information Patient not taking.Reported on 11/20/2023 Famotidine 40 MG Oral Tablet (Pepcid)Indicati ons:Gastroesopha geal reflux disease without esophagitis Take 1 Tablet by mouth in the morning. 30 Tablet 11 4 Active metroNIDAZOLE 500 MG Oral Tablet Take 1 Tablet by mouth in the morning and 1 Tablet at noon and 1 Tablet before bedtime. Active Loratadine 10 MG Oral Capsule Take 1 Capsule by mouth in the morning. Active Zinc Acetate 50 MG Oral Capsule Take by mouth. Activ e QUEtiapine Fumarate 25 MG Oral Tablet (SEROquel) Take 1 tablet by mouth at bed time for 2 weeks then increase to 1 tablet by mouth twice daily. 180 Tablet 3 4 Active Copper Caps 2 MG Oral Capsule (copper gluconate)Indica tions:Copper deficiency Take 8 mg of elemental copper each day orally for a week, 6 mg for the second week, 4 mg for the third week, and 2 mg thereafter 180 Capsule 3 4 Active traZODone HCl 50 MG Oral Tablet (Desyrel)Indicat ions:Primary insomnia Take 1/2 to 1 tablet by mouth every evening prior to bedtime as needed for insomnia. 90 Tablet 3 4 11/25/19 24 Discontinued QUEtiapine Fumarate 25 MG Oral Tablet (SEROquel) Take 1 Tablet by mouth at bedtime. 11/25/19 24 Discontinued(Ref ill) documented as of this encounter (statuses as of 11/25/2023) Active Problems Problem Noted Date Diagnosed Date [...] anemia 04/24/2017 Coronary artery disease invo lving morongo heart without angina pectoris 04/18/2016 Incomplete tear of right rotator cuff 04/15/2016 Overview: 04/23 Dr Eduardo guerrero. Anxiety 09/28/2014 Diverticulitis of colon 09/16/2014 Intestinal postoperative nonabsorption 1 [facility] [employer]E[facility] OTHER*[id number] 09/14/2009 ADVANCE DIRECTIVE INFORMATION 01/21/2009 Overview: No, Advance Directive brochure offered , patient declined. MEDICATION USE AGREEMENT 05/19/2008 Overview: See kim GERD (gastroesophageal reflux disease) Gout S/P gastric bypass S/P spinal fusion documented as of this encounter (statuses as of 11/25/2023) Resolved Problems Problem Noted Date Diagnosed Date Resolved Date Kidney disease, chronic, sta ge III (GFR 30-59 ml/min) 11/16/2018 02/17/2020 Overview: Per CKD protocol Well adult exam 04/18/2016 09/24/2018 Overview: ??Need eval hypoglycemia? S/p gastric bypass. Pain mgmt Dr Syed Asencio--[facility] +pain pump 02/22 EGD-Gastric bypass with a [...] Tobacco use disorder 09/18/2009 011 Bariatric Proteinuria Research*[id number] 09/14/2009 12/27/2009 Organic sleep disorder 06/22/200910/10 Morbid obesity, BMI not known 06/22/2009 06/26/2010 Gout 05/08/2009 11/28/2014 History of tobacco use 05/08/200910/10 Sleep apnea 05/08/2009 06/22/2009 HTN, goal below 140/90 06/15/200809/28 JOINT DIS NOS-L-LEG 08/21/2004 03/16/20 19 HTN, goal below 140/90 09/22 Tobacco use disorder 017 Overview: smokeless 2cans per week documented as of this encounter (statuses as of 11/25/2023) Immunizations Name Administration Dates Next Due COVID-19 [...] Exposure: Never Smokeless Tobacco: Current Snuff, Chew Tobacco Cessation:Ready to Q uit: Not Asked; Counseling Given: Not Answered Comments:quit 12/2015. 1 can to regular tobacco to 2 cans of non nicotine which will last a few days or more Alcohol Use Standard Drinks/Week Comments Yes 0 (1 standard drink = 0.6 oz pur e alcohol) Occasionally PHQ-2 Answer Date Recorded PHQ Adult Total Score 17 11/17/2023 Hunger Vital Sign Answer Date Recorded Within the past 12 months, y ou worried that your food would run out before you got the money to buy more. Never true 11/17/19 24 Within the past 12 months, t he food you bought just didn't last and you didn't have money to get more. Never true 11/17/2023 Childcare Answer Date Recorded Do you feel overwhelmed with taking care of a child, family member or friend? No 11/17/2023 Does your family need help f inding childcare? (Household - for ages 0-17 years) Not on file 11/17/2023 Clothing Answer Date Recorded Have you been unable to get clothing when it was really needed? No 11/17/2023 Is your family able to get c lothes or diapers when needed? (Household - for ages 0-17 years) Not on file 11/17/2023 Personal Safety Answer Date Recorded Do you feel unsafe or have concerns for your saf ety? No 11/17/2023 Do you have concerns for you r family's safety? (Household - for ages 0-17 years) Not on file 11/17/2023 Utilities Answer Date Recorded Do you have trouble paying y our heating, water, or electric bill? No 11/17/2023 Is your family able to pay t he heat, water, or electric bill? (Household - for ages 0-17 years) Not on file 11/17/2023 Does your family have access to good internet? (Household - for ages 0-17 years) Not on file 11/17/2023 Employment Status Answer Date Recorded Are you unemployed or without regular income? No 11/17/2023 Does the household have a re gular source of income? (Household - for ages 0-17 years) Not on file 11/17/2023 Social Connections Answer Date Recorded How often do you feel lonely or isolated from those around you? Sometimes 11/17/2023 Financial Resource Strain Answer Date R ecorded Do you have any trouble payi ng for your medications, or do you think you might in the future? No 11/17/2023 Does your family have troubl e paying for medicine? (Household - for ages 0-17 years) Not on file 11/17/2023 Transportation Needs Answer Date Record ed READ ONLY Do you have troubl e getting a ride to medical visits or work? Never True 11/17/2023 Does your family have a hard time getting a ride to doctors visits? (Household - for ages 0-17 years) Not on file 11/17/2023 Has lack of transportation k ept you from medical appointments, meetings, work, or from getting things needed for daily living? Check all that apply. No 11/17/2023 Do you (or your family) have trouble finding or paying for a ride (transportation)? (Household - for ages 0-17 years) Not on file 11/17/2023 Housing Stability Answer Date Recorded Do you currently live in a s helter or have no steady place to sleep at night? No 11/17/2023 READ ONLY Do you think you a re at risk of becoming homeless? No 11/17/2023 Does your family worry about paying for your home or becoming homeless? (Household - for ages 0-17 years) Not on file 0 11/17/2023 Are you homeless or worried that you might be in the future? No 11/17/2023 Are you (or your family) lisa eless or worried that you might be in the future? (Household - for ages 0-17 years) Not on file Food Insecurity Answer Date Recorded Do you need food for this week? No 11/17/2023 Are you able to get enough f ood for your family? (Household - for ages 0-17 years) Not on file 11/17/2023 Does your family need food t his week? (Household - for ages 0-17 years) Not on file 11/17/2023 Do you always have enough fo od for your family? (Household - for ages 0-17 years) Not on file 11/17/2023 Sex and Gender Information Value Date Recorded Sex Assigned at Male 09/24/2018 10:21 AM EDT Gender Identity Male 09/24/2018 10:21 AM EDT Sexual Orientation Straight 09/24/2018 10 :21 AM EDT Job Start Date Occupation Industry Not on file Not on file Not on file documented as of this encounter Last Filed Vital Signs Vital Sign Reading Time Taken Comments Blood Pressure 108/70 11/25/2023 2:22 PM EDT Pulse 95 11/25/2023 2:22 PM EDT Temperature 36.2 C (97.2 F) 11/25/2023 2:22 PM ED T Respiratory Rate 16 11/25/2023 2:22 PM EDT Oxygen Saturation 99% 11/25/2023 2:22 PM EDT Inhaled Oxygen Concentration - - Weight 74.8 kg (165 lb) 11/25/2023 2:22 PM EDT Height - - Body Mass Index 22.38 10/27/2023 11:14 AM EDT documented in this encounter Progress Notes * Charles Mayer, - 11/25/2023 2:28 PM EDT Images from the original note were not included. Assessment and Plan Advise follow-up blood work today along with slow titration of Seroquel to 25 mg at night. Advised follow-up with Psychiatry as well as with Neurology as scheduled. - DISCH MED RECON CUR MED LIS - COMPREHENSIVE METABOLIC PANEL; Future - CBC WITH WBC DIFFERENTIAL; Future - MAGNESIUM; Future - PHOSPHORUS; Future - ADULT/PEDS PSYCHIATRY REFERRAL OP Dementia with psychosis (HCC) - ADULT/PEDS PSYCHIATRY REFERRAL OP Idiopathic gout, unspecified chronicity, unspecified site Stable currently Coronary artery disease involving morongo coronary artery of morongo heart without angina pectoris Stable without chest pain Stage 3a chronic kidney disease stable Copper deficiency - Copper Caps 2 MG Oral Capsule (copper gluconate); Take 8 mg of elemental copper each day orally for a week, 6 mg for the second week, 4 mg for the third week, and 2 mg thereafter History of Present Illness Kana Thomas is a 58 year old male that presents for Hospital Follow-Up (Pt here for Hospital F/u. Per , Alisha, has concerns about dementia, newly diagnosed end of June 2023. tiredness. asking if he should start Trazadone.), NEW PATIENT, and Hospital Follow-Up Patient presents today in follow-up from recent admission to the hospital. Patient was admitted on the 08 of November and discharged on the 13 of November. 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 His memory began to decline and worsened significantly in 2022. His last mini-mental status exam was9/30 points done by Neurology in June of 2023. Patient was admitted for agitation and was found to have aspiration pneumonia. Noted that at the time he was also drinking 4-5 beers daily. He was started on Seroquel prior to discharge, and has improved some with the current dose although there is some room to improve according to . He is now down to drinking 1-2 real beers per day with an additional 1-2 nonalcoholic beers. His agitation symptoms are predominantly in the evening. Physical Exam Vitals: 11/25/23 1422 Temp: 36.2 C (97.2 F) Pulse: 95 Resp: 16 SpO2: 99% BP: 108/70 Wrap-Up Time: Total time today was 45 minutes excluding any time spent in the performance of separately billed services. documented in this encounter Plan of Treatment Upcoming Encounters Date Type Department Care Team (Late st Contact Info) Description 12/25/2023 1:40 PM EDT Office Visit Neurology [address] [place] [phone] Heather Franklin CRNP [address] [facility] [place] [address] 01/19/2024 1:00 PM EDT Office [facility], [place] [address] [facility] [place] [address] Madisyn Mendoza PA-C [address] [facility] [address] 01/29/2024 9:40 AM EDT [facility] [address] [place] [address] Charles Mayer DO [address] [place] [address] Pending Results Name Type Priority Associated Diagnoses Date /Time COMPREHENSIVE METABOLIC PANEL Lab Routine Hospital discharge follow-up 11/25/2023 2:59 PM EDT CBC WITH WBC DIFFERENTIAL Lab Routine Hospital discharge follow-up 11/25/2023 2:59 PM EDT MAGNESIUM Lab Routine Hospital discharge follow-up 11/25/2023 2:59 PM EDT PHOSPHORUS Lab Routine Hospital discharge follow-up 11/25/2023 2:59 PM EDT Scheduled Orders Name Type Priority Associated Diagnoses Orde r Schedule COMPREHENSIVE METABOLIC PANEL Lab Routine Hospital discharge follow-up Expected: 11/25/2023 (Approximate), Expires: 11/24/2024 CBC WITH WBC DIFFERENTIAL Lab Routine Hospital discharge follow-up Expected: 11/25/2023 (Approximate), Expires: 11/24/2024 MAGNESIUM Lab Routine Hospital discharge follow-up Expected: 11/25/2023 (Approximate), Expires: 11/24/2024 PHOSPHORUS Lab Routine Hospital discharge follow-up Expected: 11/25/2023 (Approximate), Expires: 11/24/2024 Scheduled Procedures Name Priority Associated Diagnoses Date/Ti me ESOPHAGOGASTRODUODENOSCOPY ( EGD), FLEXIBLE, TRANSORAL, DIAGNOSTIC Recall Esophageal reflux Scheduled Referrals Name Type Priority Associated Diagnoses Orde r Schedule ADULT/PEDS PSYCHIATRY REFERRAL OP Referral Within 3 days (urgent) Hospital discharge follow-up Dementia with psychosis (HCC) Ordered: 11/25/2023 Health Maintenance Due Date Last Done Comments Cologuard 2008 Fecal Occult Blood Test 2008 Sigmoidoscopy 2008 Zoster Vaccines (1 of 2) 2013 Colonoscopy 06/03/2018 06/03/2017, 06/03/2017 Colorectal Cancer Screening 06/03/2018 COVID-19 Vaccine (3 - 2022- season) 2022 09/11/2020, 08/14/2020 DTaP,Tdap,and Td Vaccines (4 - Td or Tdap) 11/08/2023 11/07/2013, 11/07/2013, 07/15/2012, Additional history exists Influenza Vaccine (FLU shot) (#1) 2023 06/24/2023, 12/27/2020, 12/27/2020, Additional history exists GFR 04/28/2024 10/27/2023, 03/09/2023, 08/14/2020, Additional history exists CKD HGB USE SMARTSET 14073 06/10/202406/10, 08/14/2020, 08/14/2020, Additional history exists CKD PHOS USE SMARTSET 58619 06/10/2024 06/11/2023, 0 12/24/2019 Albumin/Creatinine Ratio 06/11/2024 06/12/2023, 06/0 06/2014 Depression Monitoring 11/16/2024 11/17/2023 Diabetes Screening 10/26/2026 10/27/2023, 0 06/11/2023, 08/14/2020, [...] Not on filedocumented as of this encounter Visit Diagnoses Diagnosis Hospital discharge follow-up- Primary Other follow-up examination Dementia with psychosis (HCC) Other persistent mental disorders due to conditions classified elsewhere Idiopathic gout, unspecified chronicity, unspecified site Coronary artery disease involving morongo coronary artery of morongo heart without angina pectoris Stage 3a chronic kidney disease Copper deficiency Disorders of copper metabolism documented in this encounter Advance Directives Documents on File Type Date Recorded Patient Spring Clipper Expl 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 Care Teams Ob/Gyn Relationship Specialty Start Date End Date Charles Mayer DO [facility] [place] [address] PCP - General Family Medicine 05/26/23 documented as of this encounter
--- OUTSIDE RECORDS SUMMARY | 2023-11-29 23:35 | External Medical Summary | Summary of Care ---
Author Name Unknown Organization [facility] Address [address] [place] [place] [address] Phone [phone] Care Team Providers Care Revenue Analyst Name Role Phone Charles Mayer DO Primary Care Provider Reason for Visit * Reason Comments Outpatient Testing Encounter Details Date Type Department Care Team (Late st Contact Info) Description 11/25/2023 3:00 PM EDT [facility] [address] [facility] [phone] [facility] [address] [facility] [address] Hospital discharge follow-up Allergies Active Allergy Reactions Criticality Noted Date [...] Date End Date Status MORPHINE 5 MG/ML NETWORK SECURITY OFFICER SQ INFUSION (AMBULATORY)Indic ations:MEDICATION USE AGREEMENT Dose morphine per Pain management [...] on 10/22/2023 LORazepam 1 MG Oral Tablet (Ativan)Indicatio ns:Chronic chest pain,Anxiety,Spas m of muscle Take 1 Tablet by mouth every 8 hours as needed for Other (severe spasm). 30 Tablet 04/30/2021 Active Additional Information Patient not taking.Reported on 11/25/2023 Docusate Sodium 100 MG Oral Capsule (Colace) Take 1 Capsule by mouth in the morning and 1 Capsule before bedtime. Active Benefiber Oral Powder Take by mouth three times a day with meals. Active Atorvastatin Calcium 10 MG Oral Tablet (Lipitor)Indicati ons:Elevated cholesterol Take 1 Tablet by mouth in the morning. 100 Tablet 2 02/05/2023 Active Cyclobenzaprine HCl 10 MG Oral Tablet (Flexeril) take one and one-half tablets by mouth in the morning and one and one-half tablets in the evening and one and one-half tablets before bedtime. 405 Tablet 1 03/18/2023 Active Pantoprazole Sodium 40 MG Oral Tablet Delayed Release (Protonix)Indicat ions:Acute gastric ulcer with hemorrhage TAKE ONE TABLET BY MOUTH TWICE A DAY - MORNING AND BEFORE BEDTIME 200 Tablet 1 06/22/2023 06/21/2024 Active Memantine HCl 10 MG Oral Tablet (Namenda) Take 1 Tablet by mouth in the morning and 1 Tablet before bedtime. 180 Tablet 3 06/24/2023 Active Allopurinol 300 MG Oral Tablet (Zyloprim)Indicat ions:Gout TAKE ONE TABLET BY MOUTH EVERY DAY 100 Tablet 1 10/01/2023 Active Dicyclomine HCl 10 MG Oral Capsule (Bentyl) TAKE ONE CAPSULE BY MOUTH THREE TIMES A DAY IN THE MORNING, AT NOON, AND BEFORE BEDTIME 300 Capsule 3 10/21/2023 10/20/2024 Active Additional Information Patient not taking.Reported on 11/20/2023 Famotidine 40 MG Oral Tablet (Pepcid)Indicatio ns:Gastroesophage al reflux disease without esophagitis Take 1 Tablet by mouth in the morning. 30 Tablet 11 10/23/2023 Active metroNIDAZOLE 500 MG Oral Tablet Take [...] by mouth twice daily. 180 Tablet 3 11/25/2023 Active Copper Caps 2 MG Oral Capsule (copper gluconate)Indicat ions:Copper deficiency Take 8 mg of elemental copper each day orally for a week, 6 mg for the second week, 4 mg for the third week, and 2 mg thereafter 180 Capsule 3 11/25/2023 Active documented as of this encounter (statuses as [...] anemia 04/24/2017 Coronary artery disease invo lving [place] heart without angina pectoris 04/18/2016 Incomplete tear of right rotator cuff 04/15/2016 Overview: 04/23 Dr Eduardo guerrero. Anxiety 09/28/2014 Diverticulitis of colon 09/16/2014 Intestinal postoperative nonabsorption 1 CALLAHAN RESEARCH OTHER*[id number] 09/14/2009 ADVANCE DIRECTIVE INFORMATION 01/21/2009 Overview: No, [...] S/p gastric bypass. Pain mgmt Dr Syed Asencio--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 1 can to regular tobacco [...] on file documented as of this encounter Plan of Treatment Upcoming Encounters Date Type Department Care Team (Late st Contact Info) Description 12/25/2023 1:40 PM EDT Office Visit Neurology [place] [address] [place] [phone] Heather Franklin CRNP [address] [facility] [place] [phone] 01/19/2024 1:00 PM EDT Office Visit Gastroenterology, [place] [address] [phone] Madisyn Mendoza PA-C [address] [facility] [place] [address] 01/29/2024 9:40 AM EDT Office Visit Family Practice [facility] [address] [address] Charles Mayer DO [address] [place] [address] Pending Results Name Type Priority Associated Diagnoses Date /Time COMPREHENSIVE METABOLIC PANEL Lab Routine Hospital discharge follow-up 11/25/2023 2:59 PM EDT CBC WITH WBC DIFFERENTIAL Lab Routine Hospital discharge follow-up 11/25/2023 2:59 PM EDT MAGNESIUM Lab Routine Hospital discharge follow-up 11/25/2023 2:59 PM EDT PHOSPHORUS Lab Routine Hospital discharge follow-up 11/25/2023 2:59 PM EDT CBC Lab Routine Hospital discharge follow-up 11/25/2023 2:59 PM EDT DIFFERENTIAL, AUTOMATED Lab Routine Hospital discharge follow-up 11/25/2023 2:59 PM EDT Scheduled Procedures Name Priority Associated Diagnoses Date/Ti me ESOPHAGOGASTRODUODENOSCOPY ( EGD), FLEXIBLE, TRANSORAL, DIAGNOSTIC Recall Esophageal reflux Health Maintenance Due Date Last Done Comments Cologuard 2008 Fecal Occult Blood Test 2008 Sigmoidoscopy 2008 Zoster Vaccines (1 of 2) 2013 Colonoscopy 06/03/2018 06/03/2017, 06/03/2017 Colorectal Cancer Screening 06/03/2018 COVID-19 Vaccine (3 - season) 2022 09/11/2020, 08/14/2020 DTaP,Tdap,and Td Vaccines (4 - Td or Tdap) 11/08/2023 11/07/2013, 11/07/2013, 07/15/2012, Additional history exists Influenza Vaccine (FLU shot) (#1) 2023 06/24/2023, 12/27/2020, 12/27/2020, Additional history exists GFR 04/28/2024 10/27/2023, 03/0 09/2023, 08/14/2020, Additional history exists CKD HGB USE SMARTSET 34529 06/10/202406/10, 08/14/2020, 08/14/2020, Additional history exists CKD PHOS USE SMARTSET 21328 06/10/2024 06/11/2023, 0 12/24/2019 Albumin/Creatinine Ratio 06/11/2024 [...] this encounter Visit Diagnoses Diagnosis Hospital discharge follow-up Other follow-up examination documented in this encounter Advance Directives Documents on File Type Date Recorded 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 Care Teams Revenue Analyst Relationship Specialty Start Date End Date Charles Mayer DO [address] [place] [address] PCP - General Family Medicine 05/26/23 documented as of this encounter
--- OUTSIDE RECORDS SUMMARY | 2023-11-29 23:35 | External Medical Summary | Summary of Care ---
Author Name Unknown Organization [facility] Address [address] [facility] [address] Phone [phone] Care Team Providers Care Harpoon Engagement Planning Operator Name Role Phone Andrea Mayer DO Primary Care Provider Reason for Visit * Reason Comments Medication Refill Encounter Details Date Type Department Care Team (Late st Contact Info) Description 11/26/2023 Refill Family Practice [facility] [address] [place] [address] Kalyani Benjamin DO [address] [place] [address] Elevated cholesterol Allergies Active Allergy Reactions Criticality Noted Date [...] as of this encounter (statuses as of 11/27/2023) Medications Medication Sig Dispensed Refills Start Date End Date Status MORPHINE 5 MG/ML ELECTRICAL SYSTEMS DRAFTER SQ INFUSION (AMBULATORY)Indic ations:MEDICATION USE AGREEMENT Dose [...] three times a day with meals. Active Cyclobenzaprine HCl 10 MG Oral Tablet [...] AND BEFORE BEDTIME 200 Tablet 1 06/22/2023 Active Memantine HCl 10 MG Oral Tablet [...] BEDTIME 300 Capsule 3 10/21/2023 5 Active Additional Information Patient not taking.Reported on [...] (SEROquel) Take 1 tablet by mouth at bedtime for 2 weeks then increase to 1 tablet by mouth twice daily. 180 Tablet 3 11/25/2023 Active Copper Caps 2 MG Oral Capsule (copper gluconate)Indicat ions:Copper deficiency Take 8 mg of elemental copper each day orally for a week, 6 mg for the second week, 4 mg for the third week, and 2 mg thereafter 180 Capsule 3 11/25/2023 Active Atorvastatin Calcium 10 MG Oral Tablet (Lipitor)Indicati ons:Elevated cholesterol Take 1 Tablet by mouth in the morning. 100 Tablet 2 11/27/2023 Active Atorvastatin Calcium 10 MG Oral Tablet (Lipitor)Indicati ons:Elevated cholesterol Take 1 Tablet by mouth in the morning. 100 Tablet 2 02/05/2023 4 Discontinue d(Refill) documented as of this encounter (statuses as of 11/27/2023) Active Problems Problem Noted Date Diagnosed Date [...] anemia 04/24/2017 Coronary artery disease invo lving [place] heart without angina pectoris 04/18/2016 Incomplete tear of right rotator cuff 04/15/2016 Overview: 04/23 Dr Eduardo guerrero. Anxiety 09/28/2014 Diverticulitis of colon 09/16/2014 Intestinal postoperative nonabsorption 1 CALLAHAN RESEARCH OTHER*[id number] 09/14/2009 ADVANCE DIRECTIVE INFORMATION 01/21/2009 Overview: No, Advance Directive brochure offered , patient declined. MEDICATION USE AGREEMENT 05/19/2008 Overview: See kim GERD (gastroesophageal reflux disease) Gout S/P gastric bypass S/P spinal fusion documented as of this encounter (statuses as of 11/27/2023) Resolved Problems Problem Noted Date Diagnosed Date Resolved Date Kidney disease, chronic, sta ge III (GFR 30-59 ml/min) 11/16/2018 02/17/2020 Overview: Per CKD protocol Well adult exam 04/18/2016 09/24/2018 Overview: ??Need eval hypoglycemia? S/p gastric bypass. Pain mgmt Dr Syed Asencio--[facility] +pain pump 02/22 EGD-Gastric bypass [...] Tobacco use disorder 09/18/2009 011 Bariatric Proteinuria Research*[id number] 09/14/2009 12/27/2009 Organic sleep disorder 06/22/200910/10 Morbid obesity, BMI not known 06/22/2009 06/26/2010 Gout 05/08/2009 11/28/2014 History of tobacco use 05/08/200910/10 Sleep apnea 05/08/2009 06/22/2009 HTN, goal below 140/90 06/15/200809/28 JOINT DIS NOS-L-LEG 08/21/2004 03/16/20 19 HTN, goal below 140/90 09/22 Tobacco use disorder 017 Overview: smokeless 2cans per week documented as of this encounter (statuses as of 11/27/2023) Immunizations Name Administration Dates Next Due COVID-19 [...] encounter Miscellaneous Notes * Telephone Encounter - Luly Erickson RPh - 11/27/2023 10:00 AM EDT Signed Prescriptions: Disp Refills Atorvastatin Calcium 10 MG Oral Tablet (Li*100 Ta*2 Sig: Take 1 Tablet by mouth in the morning. Authorizing Provider: ANDREA MAYER Ordering User: LULY ERICKSON Electronically signed by Luly Erickson [facility] at 11/27/2023 10:00 AM EDT * Telephone Encounter - Luly Erickson RP - 11/27/2023 10:00 AM EDT Signed Prescriptions: Disp Refills Atorvastatin Calcium 10 MG Oral Tablet (Li*100 Ta*2 Sig: Take 1 Tablet by mouth in the morning. Authorizing Provider: ANDREA MAYER Ordering User: LULY ERICKSON Electronically signed by Luly Erickson [facility] at 11/27/2023 10:00 AM EDT * Telephone Encounter - Mitali Faye [facility] - 11/26/2023 1:20 PM EDT Did you pend patient's preferred pharmacy and medication before forwarding?yes Pharmacy: [facility] Pending Prescriptions: Disp Refills Atorvastatin Calcium 10 MG Oral Tablet (L*100 Ta*2 Sig: Take 1 Tablet by mouth in the morning. Last Visit: 11/25/2023 (in office), Visit date not found (telemedicine) Next Visit: 01/29/2024 If no future appointments scheduled, and last appointment is greater than a year ago, please schedule patient for a follow-up appointment Last date the medication was ordered: 02/05/23 Is this request for a controlled substance?No Urine Drug Screen:No results found. However, due to the size of the patient record, not all encounters were searched. Please check Results Review for a complete set of results. Patient Phone Numbers Labs: Lab Results Component Value Date/Time CREAT 1.1 11/25/2023 02:59 PM CREAT 1.5 (H) 12/24/2019 01:03 PM POTASSIUM 4.4 11/25/2023 02:59 PM POTASSIUM 4.1 12/24/2019 01:03 PM TSH 1.42 08/14/2020 09:23 AM TSH 1.73 12/29/2018 09:39 AM LDLCALC 35 06/11/2023 09:02 AM LDLCALC 22 12/24/2019 01:03 PM LDLDIRECT NOT APPLICABLE 12/24/2019 01:03 PM ALT 14 11/25/2023 02:59 PM ALT 12 12/24/2019 01:03 PM HGBA1C 5.3 12/29/2018 09:39 AM documented in this encounter Plan of Treatment Upcoming Encounters Date Type Department Care Team (Late st Contact Info) Description 12/25/2023 1:40 PM EDT Office Visit Neurology [place] [address] [place] [phone] Heather Franklin CRNP [address] [facility] [place] [address] 01/29/2024 9:40 AM EDT Office Visit [facility] [address] [place] [address] Andrea Mayer DO [address] [place] [address] Scheduled Procedures Name Priority Associated Diagnoses Date/Ti [...] 06/24/2023, 12/27/2020, 12/27/2020, Additional history exists GFR 05/27/2024 11/25/2023, 10/06, 06/11/2023, Additional history exists Albumin/Creatinine Ratio 06/11/2024 06/12/2023, 06/0 06/2014 Depression Monitoring 11/16/2024 11/17/2023 CKD HGB USE SMARTSET 09211 11/24/202411/24, 11/25/2023, 06/11/2023, Additional history exists CKD PHOS USE SMARTSET 70030 11/24/2024 08/2 , 06/11/2023, 12/24/2019 Diabetes Screening 11/24/2026 11/25/2023, 0 10/27/2023, 06/11/2023, Additional history exists Pneumococcal Vaccine: Pediatrics (0 [...] as of this encounter Visit Diagnoses Diagnosis Elevated cholesterol Pure hypercholesterolemia documented in this encounter Advance Directives Documents on File Type Date Recorded 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 Care Teams Harpoon Engagement Planning Operator Relationship Specialty Start Date End Date Andrea Mayer DO [address] [address] PCP - General Family Medicine 05/26/23 documented as of this encounter
--- OUTSIDE RECORDS SUMMARY | 2023-11-29 23:35 | External Medical Summary ---
Author Name Unknown Address Unknown Organization K01:[facility] [address] [place] [address] Laboratory Report Ordering Provider Test Date Status LUBNA MENDEZ 11/25/2023 14:59:43 Final Observation Date Value Abnormality Reference (Units ) Status Magnesium 11/25/2023 14:59:43 2.3 1.5-2.6 (m g/dL) Final Performing Location [facility] [address] [place] [address]
--- OUTSIDE RECORDS SUMMARY | 2023-11-29 23:35 | External Medical Summary ---
Author Name Unknown Address Unknown Organization K0G:[facility] - [address] [place] [address] Laboratory Report Ordering Provider Test Date Status LUBNA MENDEZ 11/25/2023 14:59:43 Final Observation Date Value Abnormality Reference (Units ) Status BUN 11/25/2023 14:59:43 11 6-20 (mg/dL) Final Creatinine 11/25/2023 14:59:43 1.1 0.6-1.2 (mg/dL) Final Glomerular filtration rate/1.73 sq M.predicted [Volume Rate/Area] in Serum, Plasma or Blood by Creatinine-based formula (CKD-EPI) 11/25/2023 14:59:43 79 >=60 (mL/min) Final eGFR is calculated based on the CKD-EPI 2020 equation. Sodium 11/25/2023 14:59:43 135 135-146 (m mol/L) Final Potassium 11/25/2023 14:59:43 4.4 3.5-5.1 (m mol/L) Final Cl 11/25/2023 14:59:43 98 98-107 (mm ol/L) Final CO2 11/25/2023 14:59:43 27 22-32 (mmo l/L) Final Anion gap 11/25/2023 14:59:43 10 7-15 (mmol /L) Final Glucose 11/25/2023 14:59:43 76 70-120 (mg /dL) Final Albumin 11/25/2023 14:59:43 3.8 3.8-5.0 (g /dL) Final AST (Aspartate aminotransferase) 11/25/2023 14:59:43 26 10-50 (U/L) Fin al Alk Phos 11/25/2023 14:59:43 134 Above high normal 35 -130 (U/L) Final Bilirubin, Total 11/25/2023 14:59:43 0.5 <=1 .2 (mg/dL) Final Calcium 11/25/2023 14:59:43 9.4 8.4-10.2 ( mg/dL) Final Protein 11/25/2023 14:59:43 5.9 Below low normal 6.0 -8.3 (g/dL) Final ALT (Alanine aminotransferase) 11/25/2023 14:59:43 14 10-50 (U/L) Guillermo hylton Performing Location [facility] - [address] [facility] [address]
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
[2023-11-29] MEDS: SODIUM CHLORIDE 0.9% 1,000 ML IV SCH (23:59)
[2023-11-30 00:27] LABS: Basophils # (auto) 0.04 K/uL (0.00-0.20); Basophils % (auto) 0.8 %; Eosinophils # (auto) 0.05 K/uL (0.00-0.50); Eosinophils % (auto) 0.9 %; Hematocrit (blood only) 32.4 % (42.0-52.0); Hemoglobin 10.7 g/dl (14.0-18.0); Immature Granulocytes # (auto) 0.01 K/uL (0.01-0.20); Immature Granulocytes % (auto) 0.2 %; Lymphocytes # (auto) 1.24 K/uL (1.20-3.40); Lymphocytes % (auto) 23.5 %; Mean Corpuscular Hemoglobin 31.8 pg (25.0-34.0); Mean Corpuscular Volume 96.4 fL (80.0-100.0); Mean Platelet Volume 9.5 fL (9.4-12.4); Monocytes # (auto) 0.47 K/uL (0.11-0.59); Monocytes % (auto) 8.9 %; Neutrophils # (auto) 3.47 K/uL (1.40-6.50); Neutrophils % (auto) 65.7 %; Platelet Count 237 K/uL (130-400); RDW Standard Deviation 46.3 fL (36.4-46.3); Red Blood Count 3.36 M/uL (4.70-6.10); White Blood Count 5.28 K/ul (4.8-10.8)
[2023-11-30 00:39] LABS: Prothrombin Time 10.6 Seconds (9.0-12.0)
[2023-11-30 00:47] LABS: Albumin Globulin Ratio 1.4 (0.9-2); Albumin Level 3.4 gm/dl (3.4-5.0); BUN Creatinine Ratio 11.8 (10-20); Bilirubin,Total 0.5 mg/dl (0.2-1.0); Calcium 8.4 mg/dl (8.6-10.3); Creatinine Clr Calc Pharmacy 75.2 ml/min; Est GFR (African American) 84.1 ml/min; Est GFR (Non-African American) 72.6 ml/min; Globulin 2.4 gm/dl (2.5-4.0); Magnesium 1.8 mg/dl (1.7-2.4); Potassium 4.6 mmol/L (3.5-5.1); Total Protein 5.8 gm/dl (6.0-8.3)
[2023-11-30 00:53] LABS: Troponin I High Sensitivity 6.1 pg/ml (0-20)
[2023-11-30 01:02] LABS: Thyroid Stimulating Hormone 1.404 uIu/ml (0.300-4.500)
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
[2023-11-30] MEDS ORDERED: LORazepam 0.5 MG TAB PO PRN (01:42)
[2023-11-30] MEDS: MULTI-VITAMIN INFUSION 10 ML, THIAMINE HCL 100 MG, FOLIC ACID 1 MG in SODIUM CHLORIDE 0... IV ONE (02:02)
[2023-11-30 02:41] LABS: Appearance Urine Clear (Clear); Bilirubin Urine Negative (Negative); Blood Urine Negative (Negative); Color Urine Yellow; Glucose Urine UA Negative (Negative); Ketones Urine Negative (Negative); Leukocyte Esterase Urine Negative (Negative); Nitrite Urine Negative (Negative); Protein Urine Negative (Negative); Specific Gravity Urine 1.004 (1.000-1.030); Urobilinogen Urine Negative (Negative)
[2023-11-30] MEDS: LORazepam 1 MG/1 ML SYR ED Inj Use IV PRN (02:43)
[2023-11-30] MEDS ORDERED: LORazepam 1 MG TAB PO PRN (03:31)
[2023-11-30 04:54] LABS: Basophils # (auto) 0.03 K/uL (0.00-0.20); Basophils % (auto) 0.5 %; Eosinophils # (auto) 0.17 K/uL (0.00-0.50); Hematocrit (blood only) 27.9 % (42.0-52.0); Hemoglobin 9.4 g/dl (14.0-18.0); Immature Granulocytes # (auto) 0.02 K/uL (0.01-0.20); Immature Granulocytes % (auto) 0.4 %; Lymphocytes # (auto) 1.22 K/uL (1.20-3.40); Lymphocytes % (auto) 21.6 %; Mean Corpuscular Hemoglobin 32.1 pg (25.0-34.0); Mean Corpuscular Hgb Conc 33.7 g/dL (32.0-36.0); Mean Corpuscular Volume 95.2 fL (80.0-100.0); Mean Platelet Volume 9.5 fL (9.4-12.4); Monocytes # (auto) 0.53 K/uL (0.11-0.59); Monocytes % (auto) 9.4 %; Neutrophils # (auto) 3.69 K/uL (1.40-6.50); Neutrophils % (auto) 65.1 %; Platelet Count 189 K/uL (130-400); RDW Coefficient of Variation 12.7 % (11.5-14.5); RDW Standard Deviation 44.8 fL (36.4-46.3); Red Blood Count 2.93 M/uL (4.70-6.10); White Blood Count 5.66 K/ul (4.8-10.8)
[2023-11-30 05:06] LABS: BUN Creatinine Ratio 13.7 (10-20); Calcium 8.1 mg/dl (8.6-10.3); Est GFR (African American) 100.4 ml/min; Est GFR (Non-African American) 86.7 ml/min; Potassium 3.8 mmol/L (3.5-5.1)
--- NOTE | 2023-11-30 08:09 | XRay Report ---
XR chest 1V portable HISTORY: Altered mental status, recent pna/rib fx COMPARISON: Chest 11/08/2023. FINDINGS: No pneumothorax. No pleural effusions. The heart is normal in size. Left upper lobe calcifi ed granuloma again noted. Otherwise, the lungs are clear. No acute fractures. IMPRESSION: No acute process. ACT 112: Negative or not required by law. Electronically signed by: Matt Patel M.D. 11/30/2023 8:07 AM
[2023-11-30] MEDS: PANTOprazole 40 MG TAB PO SCH (09:47)
[2023-11-30] MEDS: MEMANTINE HCL 10 MG TAB PO SCH (09:48)
[2023-11-30] MEDS: DOCUSATE SODIUM 100 MG CAP PO SCH (09:48)
[2023-11-30] MEDS: CYCLOBENZAPRINE HCL 10 MG TAB PO SCH (09:48)
[2023-11-30] MEDS: ENOXAPARIN INJ 40 MG/0.4 ML SYR SQ SCH (09:48)
[2023-11-30] MEDS: CYANOCOBALAMIN (B-12) 500 MCG TABLET PO SCH (09:48)
[2023-11-30] MEDS: allopurinoL 300 MG TAB PO SCH (09:48)
[2023-11-30] MEDS: ATORVASTATIN 10 MG TAB PO SCH (09:48)
--- NOTE | 2023-11-30 13:37 | Hospitalist Progress Note ---
Date of Service November 30, 2023 Assessment & Plan (1) Agitation: Plan: Agitation ? Situational DD: Delirium In setting of traumatic brain injury/dementia/alcohol use/Medications UA not suggestive of UTI No other obvious source of infection Normal TSH Currently no signs of alcohol withdrawal Continue home medications Psychiatry consulted Case management to help with discharge planning Monitor for alcohol withdrawal Continue thiamine, folic acid Counseled to quit drinking Chronic Anemia Mild hyponatremia Likely related to alcohol use/B12 deficiency Continue vitamin B12 supplements Sodium levels improved Monitor CBC Nonobstructive CAD Hypertension H/O Gastric bypass Continue home medications Monitor blood pressure Chronic back pain on morphine pump Prediabetes Last HbA1c 5.7 Past tobacco abuse Dementia Continue home medications Reorient frequently to minimize delirium DVT Px: Lovenox SQ Code Status DNR/DNI Admission and Anticipated Discharge Date Admission Date: November 30, 2023 Subjective Patient is seen and examined at bedside Oriented and cooperative during my encounter Intermittently agitated per staff Denies any chest pain, nausea, vomiting, abdominal pain Offers no complaints today Prefers to be discharged home today Discussed with psychiatry today Review of Systems Review of Systems: All systems reviewed & are unremarkable except as noted in Subjective Physical Exam Physical Exam: Physical Exam: Vitals signs as noted above General Appearance:Thin, no apparent distress Head: normocephalic, Atraumatic Eyes: normal inspection, EOMI Neck: supple, Trachea midline Respiratory/Chest: Normal breath sounds, CTA, No accessory muscle use Cardiovascular: S1, S2, No murmur Abdomen/GI:Soft, Non tender, Bowel sounds present Extremities/Musculoskeletal:normal inspection, no edema Neurologic/Psych:AAOX3, grossly no focal neurological deficits Skin: normal color, warm Results & Data Results & Data Vital Signs (Past 12 Hours) Vital Signs Temp Pulse Pulse Resp BP BP Pulse Ox 11/30/23 07:23 54 L 11/30/23 05:41 61 16 114/83 98 11/30/23 03:42 62 13 98 11/30/23 03:32 109/72 11/30/23 03:00 11/30/23 03:00 36.6 C 11/30/23 03:00 11/30/23 02:54 63 13 96 11/30/23 02:30 68 16 119/72 Pulse Ox O2 Del Method O2 Del Method 11/30/23 07:23 11/30/23 05:41 Room Air 11/30/23 03:42 11/30/23 03:32 11/30/23 03:00 Room Air 11/30/23 03:00 11/30/23 03:00 96 Room Air 11/30/23 02:54 11/30/23 02:30 Laboratory Results Short CBC 11/29/23 11/30/23 Range/Units 23:55 03:58 WBC 5.28 5.66 (4.8-10.8) K/ul Hgb 10.7 L 9.4 L (14.0-18.0) g/dl Hct 32.4 L 27.9 L (42.0-52.0) % Plt Count 237 189 (130-400) K/uL BMP 11/29/23 11/30/23 23:55 03:58 Sodium 132 L 136 Potassium 4.6 3.8 Chloride 100 106 Carbon Dioxide 27 25 BUN 13 13 Creatinine 1.10 0.95 Glucose 89 93 Calcium 8.4 L 8.1 L Liver Function 11/29/23 Range/Units 23:55 Total Bilirubin 0.5 (0.2-1.0) mg/dl AST 19 (13-39) U/L ALT 9 (7-52) U/L Alkaline Phosphatase 103 (34-104) U/L Albumin 3.4 (3.4-5.0) gm/dl Urine 11/30/23 Range/Units 02:20 Urine Color Yellow Urine Appearance Clear (Clear) Urine pH 6.0 (4.5-7.5) Ur Specific [place] 1.004 (1.000-1.030) Urine Protein Negative (Negative) Urine Glucose (UA) Negative (Negative)
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
[2023-11-30] MEDS: ARIPiprazole 5 MG TAB PO SCH (16:03)
[2023-11-30] MEDS: ACETAMINOPHEN 325 MG TAB PO PRN (17:40)
[2023-11-30] MEDS ORDERED: [UNRECOGNIZED DRUG - OTHER] PO SCH (21:00)
[2023-11-30] MEDS ORDERED: QUEtiapine FUMARATE 25 MG TABLET PO SCH (21:00)
[2023-11-30] MEDS: MIRTAZAPINE TAB 15 MG TAB PO SCH (22:00)
[2023-11-30] MEDS: FAMOTIDINE 40 MG TABLET PO SCH (22:00)
[2023-12-01 07:02] LABS: Hematocrit (blood only) 31.7 % (42.0-52.0); Hemoglobin 10.3 g/dl (14.0-18.0); Mean Corpuscular Hemoglobin 31.7 pg (25.0-34.0); Mean Corpuscular Hgb Conc 32.5 g/dL (32.0-36.0); Mean Corpuscular Volume 97.5 fL (80.0-100.0); Mean Platelet Volume 9.4 fL (9.4-12.4); Platelet Count 187 K/uL (130-400); RDW Coefficient of Variation 13.1 % (11.5-14.5); Red Blood Count 3.25 M/uL (4.70-6.10)
[2023-12-01 07:23] LABS: BUN Creatinine Ratio 9.4 (10-20); Calcium 8.6 mg/dl (8.6-10.3); Creatinine Clr Calc Pharmacy 70.7 ml/min; Est GFR (African American) 78.1 ml/min; Est GFR (Non-African American) 67.4 ml/min; Potassium 4.3 mmol/L (3.5-5.1)
[2023-12-01] MEDS: MULTIVITAMIN TAB PO SCH (07:43)
[2023-12-01] MEDS: FOLIC ACID 1 MG TAB PO SCH (07:44)
[2023-12-01] MEDS: THIAMINE HCL 100 MG TAB PO SCH (07:44)
--- NOTE | 2023-12-01 17:05 | Hospitalist Progress Note ---
Date of Service December 01, 2023 Assessment & Plan (1) Agitation: Plan: Dementia with behavioral disturbance Delirium In setting of traumatic brain injury/dementia/alcohol use/Medications UA not suggestive of UTI No other obvious source of infection Normal TSH Currently no signs of alcohol withdrawal Appreciate psychiatry input Quetiapine discontinued Continue memantine Started on aripiprazole 2.5 mg daily, plan to increase to 5 mg daily as able Also started on mirtazapine 7.5 mg at bedtime Can use olanzapine as needed for agitation Avoid benzodiazepines--titrate down home Ativan as able Needs follow-up with 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 Monitor for alcohol withdrawal Continue thiamine, folic acid Case management to help with discharge planning Chronic Anemia Mild hyponatremia Likely related to alcohol use/B12 deficiency Continue vitamin B12 supplements Sodium levels improved Monitor CBC Nonobstructive CAD Hypertension H/O Gastric bypass Continue home medications Monitor blood pressure Chronic back pain on morphine pump Prediabetes Last HbA1c 5.7 Past tobacco abuse Dementia Continue home medications Reorient frequently to minimize delirium DVT Px: Lovenox SQ Code Status DNR/DNI Admission and Anticipated Discharge Date Admission Date: November 30, 2023 Subjective Patient is seen and examined at bedside Offers no new complaints today Eager to get discharged Denies any chest pain, dyspnea, nausea, vomiting, abdominal pain Review of Systems Review of Systems: All systems reviewed & are unremarkable except as noted in Subjective Physical Exam Physical Exam: Physical Exam: Vitals signs as noted above General Appearance:Thin, no apparent distress Head: normocephalic, Atraumatic Eyes: normal inspection, EOMI Neck: supple, Trachea midline Respiratory/Chest: Normal breath sounds, CTA, No accessory muscle use Cardiovascular: S1, S2, No murmur Abdomen/GI:Soft, Non tender, Bowel sounds present Extremities/Musculoskeletal:normal inspection, no edema Neurologic/Psych:AAOX3, grossly no focal neurological deficits Skin: normal color, warm Results & Data Results & Data Vital Signs (Past 12 Hours) Vital Signs Temp Pulse Pulse Resp BP BP Pulse Ox 12/01/23 14:49 82 12/01/23 14:13 36.5 C 81 16 121/58 L 97 12/01/23 11:00 36.6 C 69 16 117/50 L 99 12/01/23 07:22 36.5 C 55 L 18 118/77 100 12/01/23 07:17 52 L O2 Del Method 12/01/23 14:49 12/01/23 14:13 Room Air 12/01/23 11:00 Room Air 12/01/23 07:22 Room Air 12/01/23 07:17 Laboratory Results Short CBC 12/01/23 Range/Units 06:21 WBC 4.10 L (4.8-10.8) K/ul Hgb 10.3 L (14.0-18.0) g/dl Hct 31.7 L (42.0-52.0) % Plt Count 187 (130-400) K/uL BMP 12/01/23 06:21 Sodium 141 Potassium 4.3 Chloride 108 H Carbon Dioxide 31 BUN 11 Creatinine 1.17 Glucose 90 Calcium 8.6
[2023-12-01] MEDS: PROMETHAZINE 6.25 MG/50.25 ML BAG IV PRN (18:29)
[2023-12-02] MEDS: LORazepam 1 MG in SYRINGE 0.5 ML IV PRN (02:39)
[2023-12-02] MEDS ORDERED: Ativan IV Alcohol Withdrawal--Active Protocol IV PRN (02:57)
[2023-12-02] MEDS ORDERED: GABAPENTIN 1200MG ALCOHOL WITHDRAWAL LOAD PO STA (02:57)
[2023-12-02] MEDS ORDERED: LORazepam 3 MG in SYRINGE 1.5 ML IV PRN (02:57)
[2023-12-02] MEDS ORDERED: LORazepam 1 MG in SYRINGE 0.5 ML IV PRN (02:57)
--- NOTE | 2023-12-02 02:59 | Communication Note ---
Date of Service: December 02, 2023 Patient with worsening agitation as per RN requiring as needed IV Ativan administration. Gabapentin course, IV Ativan as needed as per SONNY S active protocol.
[2023-12-02] MEDS: GABAPENTIN 600 MG TAB PO ONE (03:42)
[2023-12-02] MEDS: LORazepam 2 MG in SYRINGE 1 ML IV PRN (05:21)
[2023-12-02] MEDS: LORazepam 1 MG in SYRINGE 0.5 ML IV STA (06:00)
[2023-12-02] MEDS: GABAPENTIN 600 MG TAB PO SCH (10:44)
[2023-12-02] MEDS ORDERED: LORazepam 2 MG/1 ML VIAL IV PRN ×2 (15:00→15:01)
--- NOTE | 2023-12-02 17:19 | Hospitalist Progress Note ---
Date of Service December 02, 2023 Assessment & Plan (1) Agitation: Plan: Dementia with behavioral disturbance Delirium In setting of traumatic brain injury/dementia/alcohol use/Medications UA not suggestive of UTI No other obvious source of infection Normal TSH Currently no signs of alcohol withdrawal Appreciate psychiatry input Quetiapine discontinued Continue memantine Started on aripiprazole 2.5 mg daily, plan to increase to 5 mg daily as able Also started on mirtazapine 7.5 mg at bedtime Can use olanzapine as needed for agitation Avoid benzodiazepines--titrate down home Ativan/minimize use to avoid excess sedation Needs follow-up with psychiatry on 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 Continue thiamine, folic acid Case management to help with discharge planning Started on gabapentin protocol Monitor for alcohol withdrawal Chronic Anemia Mild hyponatremia Likely related to alcohol use/B12 deficiency Continue vitamin B12 supplements Sodium levels improved Monitor CBC Nonobstructive CAD Hypertension H/O Gastric bypass Continue home medications Monitor blood pressure Chronic back pain on morphine pump Prediabetes Last HbA1c 5.7 Past tobacco abuse Dementia Continue home medications Reorient frequently to minimize delirium DVT Px: Lovenox SQ Code Status DNR/DNI Admission and Anticipated Discharge Date Admission Date: November 30, 2023 Subjective Patient is seen and examined at bedside Agitated overnight and received Ativan Drowsy this morning during my encounter Oriented to person and place, poor historian today Denies any chest pain, dyspnea, nausea, vomiting, abdominal pain Review of Systems Review of Systems: Other Physical Exam Physical Exam: Physical Exam: Vitals signs as noted above General Appearance:Thin, no apparent distress Head: normocephalic, Atraumatic Eyes: normal inspection, EOMI Neck: supple, Trachea midline Respiratory/Chest: Normal breath sounds, CTA, No accessory muscle use Cardiovascular: S1, S2, No murmur Abdomen/GI:Soft, Non tender, Bowel sounds present Extremities/Musculoskeletal:normal inspection, no edema Neurologic/Psych:AAOX2, grossly no focal neurological deficits Skin: normal color, warm Results & Data Results & Data Vital Signs (Past 12 Hours) Vital Signs Temp Pulse Pulse Resp BP BP Pulse Ox 12/02/23 16:15 36.3 C L 69 18 125/87 99 12/02/23 11:08 35.7 C L 70 18 121/85 100 12/02/23 07:51 36.4 C L 62 18 128/87 100 12/02/23 07:00 77 12/02/23 05:33 36.9 C 78 16 120/76 99 O2 Del Method 12/02/23 16:15 Room Air 12/02/23 11:08 Room Air 12/02/23 07:51 Room Air 12/02/23 07:00 12/02/23 05:33 Room Air
[2023-12-03] MEDS: GABAPENTIN 600 MG TAB PO SCH (00:25)
[2023-12-03 06:09] LABS: Hematocrit (blood only) 33.4 % (42.0-52.0); Hemoglobin 11.2 g/dl (14.0-18.0); Mean Corpuscular Hemoglobin 31.6 pg (25.0-34.0); Mean Corpuscular Hgb Conc 33.5 g/dL (32.0-36.0); Mean Corpuscular Volume 94.4 fL (80.0-100.0); Mean Platelet Volume 9.3 fL (9.4-12.4); Platelet Count 219 K/uL (130-400); RDW Coefficient of Variation 12.9 % (11.5-14.5); RDW Standard Deviation 45.1 fL (36.4-46.3); Red Blood Count 3.54 M/uL (4.70-6.10); White Blood Count 4.78 K/ul (4.8-10.8)
[2023-12-03 06:33] LABS: BUN Creatinine Ratio 10.2 (10-20); Calcium 9.1 mg/dl (8.6-10.3); Creatinine Clr Calc Pharmacy 79.5 ml/min; Est GFR (African American) 96.7 ml/min; Est GFR (Non-African American) 83.5 ml/min
[2023-12-03] MEDS: LORazepam 0.5 MG TAB PO PRN (12:09)
--- NOTE | 2023-12-03 14:03 | Hospitalist Progress Note ---
Date of Service December 03, 2023 Assessment & Plan (1) Agitation: Plan: Dementia with behavioral disturbance Delirium In setting of traumatic brain injury/dementia/alcohol use/Medications UA not suggestive of UTI No other obvious source of infection Normal TSH Currently no signs of alcohol withdrawal Appreciate psychiatry input Quetiapine discontinued Continue memantine Continue aripiprazole 2.5 mg daily started inpatient Also started on mirtazapine 7.5 mg at bedtime Can use olanzapine as needed for agitation Avoid benzodiazepines as much as possible Home lorazepam been weaned off. Currently at 0.5mg q8h prn. Plan to dc if not requiring Continue thiamine, folic acid Continue CIWA protocol Reorient prn Discussed with and CM CM working on placement, nursing home preferably Chronic Anemia Likely related to alcohol use/B12 deficiency Continue vitamin B12 supplements Nonobstructive CAD Hypertension H/O Gastric bypass Continue home medications Monitor blood pressure Chronic back pain on morphine pump Prediabetes Last HbA1c 5.7 DVT Px: Lovenox SQ Code Status DNR/DNI I spent a total of 45 minutes coordinating, documenting and providing care for this patient excluding time spent in performance of separately billed services Admission and Anticipated Discharge Date Admission Date: November 30, 2023 Subjective Patient seen and examined Patient is alert and oriented to person only, confused Follows simple commands Detailed ROS limited due to dementia at bedside noted he had been occasionally hallucinating (visual) seeing people Physical Exam Constitutional: + well hydrated; no acute distress Eyes: PERRL, conjunctivae normal, anicteric sclerae ENMT: external ear and nose normal, oropharynx normal Respiratory: normal respiratory effort, lungs clear to auscultation Cardiovascular: Rate/Rhythm: regular rate and regular rhythm Gastrointestinal (Abdomen): normal bowel sounds, soft, nontender, no hepatosplenomegaly Musculoskeletal: No pedal edema Neurologic: PERRL, EOMI, accommodation nl, no face palsy, no dysarthria Psychiatric: Orientation: alert, oriented to person and cooperative; + not oriented to place and + not oriented to time Confused Results & Data Results & Data Vital Signs (Past 12 Hours) Vital Signs Temp Pulse Pulse Resp BP Pulse Ox O2 Del Method 12/03/23 11:54 36.3 C L 76 18 105/72 93 Room Air 12/03/23 08:16 65 12/03/23 07:26 36.3 C L 59 L 18 132/83 100 Room Air 12/03/23 03:45 36.6 C 63 18 121/79 100 Room Air Laboratory Results Abnormal lab results 12/03/23 Range/Units 05:23 WBC 4.78 L (4.8-10.8) K/ul RBC 3.54 L (4.70-6.10) M/uL Hgb 11.2 L (14.0-18.0) g/dl Hct 33.4 L (42.0-52.0) % MPV 9.3 L (9.4-12.4) fL
[2023-12-03] MEDS: LORazepam 2 MG/1 ML VIAL IV PRN (14:20)
--- NOTE | 2023-12-03 15:40 | Electrocardiogram Report ---
Test Reason : Blood Pressure : */* mmHG Vent. Rate : 72 BPM Atrial Rate : 72 BPM P-R Int : 134 ms QRS Dur : 134 ms QT Int : 416 ms P-R-T Axes : 72 81 64 degrees QTcB Int : 455 ms Normal sinus rhythm Right bundle branch block Right axis deviation Abnormal ECG When compared with ECG of 13-Nov-2023 06:16, there is no significant change Confirmed by Joanna Lucas (Fabio) on 11/30/2023 7:00:46 PM Referred By: REFERRED SELF Confirmed By: Joanna Lucas
[2023-12-03] MEDS: OLANZAPINE 2.5 MG TAB PO PRN (16:31)
[2023-12-03] MEDS: OLANZapine 10 MG/2.1 ML SDV IM STA (17:46)
[2023-12-04] MEDS: GABAPENTIN 600 MG TAB PO SCH (05:27)
[2023-12-04 06:29] LABS: Hematocrit (blood only) 36.5 % (42.0-52.0); Hemoglobin 11.9 g/dl (14.0-18.0); Mean Corpuscular Hemoglobin 31.6 pg (25.0-34.0); Mean Corpuscular Hgb Conc 32.6 g/dL (32.0-36.0); Mean Corpuscular Volume 97.1 fL (80.0-100.0); Mean Platelet Volume 9.5 fL (9.4-12.4); Platelet Count 226 K/uL (130-400); RDW Coefficient of Variation 12.9 % (11.5-14.5); RDW Standard Deviation 46.3 fL (36.4-46.3); Red Blood Count 3.76 M/uL (4.70-6.10); White Blood Count 5.03 K/ul (4.8-10.8)
[2023-12-04 06:49] LABS: BUN Creatinine Ratio 8.6 (10-20); Calcium 9.4 mg/dl (8.6-10.3); Creatinine Clr Calc Pharmacy 66.2 ml/min; Est GFR (African American) 78.9 ml/min; Est GFR (Non-African American) 68.1 ml/min; Magnesium 1.8 mg/dl (1.7-2.4); Phosphorus 3.6 mg/dl (2.5-4.9)
--- NOTE | 2023-12-04 10:05 | Hospitalist Progress Note ---
Date of Service December 04, 2023 Assessment & Plan (1) Agitation: Plan: Dementia with behavioral disturbance Delirium In setting of traumatic brain injury/dementia/alcohol use/Medications UA not suggestive of UTI No other obvious source of infection Normal TSH Currently no signs of alcohol withdrawal Appreciate psychiatry input Quetiapine discontinued Continue memantine Continue aripiprazole, increased to 5mg daily Also started on mirtazapine 7.5 mg at bedtime Can use olanzapine as needed for agitation Avoid benzodiazepines as much as possible Home lorazepam been weaned off. Currently at 0.5mg q8h prn. Plan to dc if not requiring Continue thiamine, folic acid Continue CIWA protocol Reorient prn Patient lacks decision making capacity at this time. It is important to know that patient may have lucid moments. However, based on degree of cognitive impairment and events preceding admission, I recommend deferring health care decision making to his . Discussed with and CM CM working on placement, fdc preferably Chronic Anemia Likely related to alcohol use/B12 deficiency Continue vitamin B12 supplements Nonobstructive CAD Hypertension H/O Gastric bypass Continue home medications Monitor blood pressure Chronic back pain on morphine pump Prediabetes Last HbA1c 5.7 DVT Px: Lovenox SQ Code Status DNR/DNI I spent a total of 45 minutes coordinating, documenting and providing care for this patient excluding time spent in performance of separately billed services Admission and Anticipated Discharge Date Admission Date: November 30, 2023 Subjective Patient seen and examined He was sleeping but arousable Oriented to person only Limited ROS due to confusion Physical Exam Constitutional: + well hydrated; no acute distress Eyes: PERRL, conjunctivae normal, anicteric sclerae ENMT: external ear and nose normal, oropharynx normal Respiratory: normal respiratory effort, lungs clear to auscultation Cardiovascular: Rate/Rhythm: regular rate and regular rhythm Gastrointestinal (Abdomen): normal bowel sounds, soft, nontender, no h epatosplenomegaly Musculoskeletal: No pedal edema Neurologic: PERRL, EOMI, accommodation nl, no face palsy, no dysarthria Psychiatric: Orientation: alert, oriented to person and cooperative; + not oriented to place and + not oriented to time Results & Data Results & Data Vital Signs (Past 12 Hours) Vital Signs Temp Pulse Pulse Resp BP Pulse Ox O2 Del Method 12/04/23 08:24 36.4 C L 56 L 16 117/74 99 Room Air 12/04/23 07:20 59 L 12/04/23 04:00 36.4 C L 62 18 120/80 100 Room Air 12/03/23 23:50 36.2 C L 65 18 121/85 99 Room Air 12/03/23 23:42 72 12/03/23 23:32 36.5 C 65 18 109/62 100 Room Air Laboratory Results Abnormal lab results 12/04/23 Range/Units 05:24 RBC 3.76 L (4.70-6.10) M/uL Hgb 11.9 L (14.0-18.0) g/dl Hct 36.5 L (42.0-52.0) % BUN/Creatinine Ratio 8.6 L (10-20)
[2023-12-04] MEDS: ARIPiprazole 5 MG TAB PO SCH (14:06)
--- NOTE | 2023-12-04 23:06 | Electrocardiogram Report ---
Test Reason : Blood Pressure : */* mmHG Vent. Rate : 56 BPM Atrial Rate : 56 BPM P-R Int : 130 ms QRS Dur : 152 ms QT Int : 486 ms P-R-T Axes : 63 53 43 degrees QTcB Int : 468 ms Sinus bradycardia Right bundle branch block Abnormal ECG When compared with ECG of 29-Nov-2023 23:46, No significant change was found Confirmed by Villa Jeffrey ([id number]) on 12/04/2023 11:06:35 PM Referred By: REFERRED SELF Confirmed By: Villa Jeffrey
[2023-12-05] MEDS: OLANZapine 10 MG/2.1 ML SDV IM STA (05:50)
--- NOTE | 2023-12-05 09:29 | Hospitalist Progress Note ---
Date of Service December 05, 2023 Assessment & Plan (1) Agitation: Plan: Dementia with behavioral disturbance Delirium In setting of traumatic brain injury/dementia/alcohol use/Medications UA not suggestive of UTI No other obvious source of infection Normal TSH Appreciate psychiatry input Quetiapine discontinued Continue memantine Continue aripiprazole, which had been increased to 5mg daily Also started on mirtazapine 7.5 mg at bedtime Can use olanzapine as needed for agitation Avoid benzodiazepines as much as possible Home lorazepam been weaned off. Currently at 0.5mg q8h prn. Plan to dc if not requiring Continue thiamine, folic acid Reorient prn Patient lacks decision making capacity at this time. It is important to know that patient may have lucid moments. However, based on degree of cognitive impairment and events preceding admission, I recommend deferring health care decision making to his . Discussed with and CM CM working on placement, retirement preferably Chronic Anemia Likely related to alcohol use/B12 deficiency Continue vitamin B12 supplements Nonobstructive CAD Hypertension H/O Gastric bypass Continue home medications Monitor blood pressure Chronic back pain on morphine pump reports that the Dr that manages this is Dr Syed Asencio [phone] is recommending weaning him off overtime based on his cognitive decline. Will consult Pain management to assist us with this Prediabetes Last HbA1c 5.7 DVT Px: Lovenox SQ Code Status DNR/DNI I spent a total of 45 minutes coordinating, documenting and providing care for this patient excluding time spent in performance of separately billed services Admission and Anticipated Discharge Date Admission Date: November 30, 2023 Subjective Patient seen and examined Oriented to person only Limited ROS due to cognitive status Physical Exam Constitutional: + well hydrated; no acute distress Eyes: PERRL, conjunctivae normal, anicteric sclerae ENMT: external ear and nose normal, oropharynx normal Respiratory: normal respiratory effort, lungs clear to auscultation Cardiovascular: Rate/Rhythm: regular rate and regular rhythm Gastrointestinal (Abdomen): normal bowel sounds, soft, nontender, no hepatosplenomegaly Musculoskeletal: No pedal edema Neurologic: PERRL, EOMI, accommodation nl, no face palsy, no dysarthria Psychiatric: Orientation: alert, oriented to person and cooperative; + not oriented to place and + not oriented to time Results & Data Results & Data Vital Signs (Past 12 Hours) Vital Signs Temp Pulse Pulse Resp BP BP Pulse Ox 12/05/23 08:57 36.4 C L 61 16 126/87 100 12/05/23 07:19 70 12/05/23 05:29 36.2 C L 71 18 123/86 99 12/05/23 03:37 36.4 C L 69 18 113/72 100 12/04/23 23:54 69 12/04/23 23:22 36.4 C L 72 18 108/74 98 O2 Del Method 12/05/23 08:57 Room Air 12/05/23 07:19 12/05/23 05:29 Room Air 12/05/23 03:37 Room Air 12/04/23 23:54 12/04/23 23:22 Room Air
[2023-12-05] MEDS: GABAPENTIN 600 MG TAB PO SCH (18:24)
--- NOTE | 2023-12-06 09:04 | Hospitalist Progress Note ---
Date of Service December 06, 2023 Assessment & Plan (1) Agitation: Plan: Dementia with behavioral disturbance Delirium In setting of traumatic brain injury/dementia/alcohol use/Medications UA not suggestive of UTI No other obvious source of infection Normal TSH Appreciate psychiatry input Quetiapine discontinued Continue memantine Continue aripiprazole, which had been increased to 5mg daily Also started on mirtazapine 7.5 mg at bedtime Can use olanzapine as needed for agitation Avoid benzodiazepines as much as possible Home lorazepam been weaned off. Currently at 0.5mg q8h prn. Plan to dc if not requiring Continue thiamine, folic acid Reorient prn Patient lacks decision making capacity at this time. It is important to know that patient may have lucid moments. However, based on degree of cognitive impairment and events preceding admission, I recommend deferring health care decision making to his . Discussed with and CM CM working on placement, group home preferably Chronic Anemia Likely related to alcohol use/B12 deficiency Continue vitamin B12 supplements Nonobstructive CAD Hypertension H/O Gastric bypass Continue home medications Monitor blood pressure Chronic back pain on morphine pump On 12/05/23, reported that the Dr that manages this is Dr Syed Asencio [phone] is recommending weaning him off overtime based on his cognitive decline. Pain management consulted to assist us with this Prediabetes Last HbA1c 5.7 DVT Px: Lovenox SQ Code Status DNR/DNI I spent a total of 30 minutes coordinating, documenting and providing care for this patient excluding time spent in performance of separately billed services Admission and Anticipated Discharge Date Admission Date: November 30, 2023 Subjective Patient seen and examined Awake, oriented to person only Limited ROS due to cognitive status Physical Exam Constitutional: + well hydrated; no acute distress Eyes: PERRL, conjunctivae normal, anicteric sclerae ENMT: external ear and nose normal, oropharynx normal Respiratory: normal respiratory effort, lungs clear to auscultation Cardiovascular: Rate/Rhythm: regular rate and regular rhythm Gastrointestinal (Abdomen): normal bowel sounds, soft, nontender, no hepatosplenomegaly Musculoskeletal: No pedal edema Neurologic: PERRL, EOMI, accommodation nl, no face palsy, no dysarthria Psychiatric: Orientation: alert and oriented to person; + not oriented to place and + not oriented to time Results & Data Results & Data Vital Signs (Past 12 Hours) Vital Signs Temp Pulse Pulse Resp BP Pulse Ox O2 Del Method 12/06/23 07:52 36.6 C 66 16 106/75 99 Room Air 12/06/23 07:37 68 12/06/23 03:08 36.8 C 72 18 130/85 99 Room Air 12/05/23 23:22 36.4 C L 86 18 116/74 95 Room Air 12/05/23 21:28 83
[2023-12-07] MEDS: OLANZAPINE 2.5 MG TAB PO STA (05:26)
--- NOTE | 2023-12-07 12:41 | Hospitalist Progress Note ---
Date of Service December 07, 2023 Assessment & Plan (1) Agitation: Plan: Dementia with behavioral disturbance Delirium In setting of traumatic brain injury/dementia/alcohol use/Medications UA not suggestive of UTI No other obvious source of infection Normal TSH Appreciate psychiatry input Quetiapine discontinued Continue memantine Continue aripiprazole, which had been increased to 5mg daily Also started on mirtazapine 7.5 mg at bedtime Can use olanzapine as needed for agitation Avoid benzodiazepines as much as possible Home lorazepam being weaned off. Currently at 0.5mg q8h prn. Plan to dc if not requiring Continue thiamine, folic acid Reorient prn Patient lacks decision making capacity at this time. It is important to know that patient may have lucid moments. However, based on degree of cognitive impairment and events preceding admission, I recommend deferring health care decision making to his . 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 Pain management consulted to assist us with this Prediabetes Last HbA1c 5.7 DVT Px: Lovenox SQ Code Status DNR/DNI I spent a total of 30 minutes coordinating, documenting and providing care for this patient excluding time spent in performance of separately billed services Admission and Anticipated Discharge Date Admission Date: November 30, 2023 Subjective Patient seen and examined Awake and oriented to person. Knew he is in a hospital but not which. Not oriented to time Limited ROS due to cognitive status Eating lunch at bedside Physical Exam Constitutional: + well hydrated; no acute distress Eyes: PERRL, conjunctivae normal, anicteric sclerae ENMT: external ear and nose normal, oropharynx normal Respiratory: normal respiratory effort, lungs clear to auscultation Cardiovascular: Rate/Rhythm: regular rate and regular rhythm Gastrointestinal (Abdomen): normal bowel sounds, soft, nontender, no hepatosplenomegaly Musculoskeletal: No pedal edema Neurologic: PERRL, EOMI, accommodation nl, no face palsy, no dysarthria Psychiatric: Orientation: alert, oriented to person and cooperative Results & Data Results & Data Vital Signs (Past 12 Hours) Vital Signs Temp Pulse Resp BP Pulse Ox O2 Del Method 12/07/23 11:50 36.8 C 78 20 100/67 99 Room Air 12/07/23 07:49 36.6 C 74 20 116/81 94 Room Air 12/07/23 04:34 36.5 C 85 18 109/66 94 Room Air
[2023-12-07] MEDS: MELATONIN 3 MG TAB PO SCH (20:07)
--- NOTE | 2023-12-08 09:47 | Hospitalist Progress Note ---
Date of Service December 08, 2023 Assessment & Plan (1) Agitation: Plan: Dementia with behavioral disturbance Delirium In setting of traumatic brain injury/dementia/alcohol use/Medications UA not suggestive of UTI No other obvious source of infection Normal TSH Appreciate psychiatry input Quetiapine discontinued Continue memantine Continue aripiprazole 5mg daily Also started on mirtazapine 7.5 mg at bedtime Can use olanzapine as needed for agitation Avoid benzodiazepines as much as possible Home lorazepam being weaned off. Currently at 0.5mg q8h prn. Plan to dc if not requiring Continue thiamine, folic acid Reorient prn Patient lacks decision making capacity at this time. It is important to know that patient may have lucid moments. However, based on degree of cognitive impairment and events preceding admission, I recommend deferring health care decision making to his . Discussed with and CM CM working on placement, retirement preferably Chronic Anemia Likely related to alcohol use/B12 deficiency Continue vitamin B12 supplements Nonobstructive CAD Hypertension H/O Gastric bypass Continue home medications Monitor blood pressure Chronic back pain on morphine pump On 12/05/23, reported that the Dr that manages this is Dr Syed Asencio [phone] is recommending weaning him off overtime based on his cognitive decline. Pain management consulted to assist us with this Prediabetes Last HbA1c 5.7 DVT Px: Lovenox SQ Code Status DNR/DNI CM working on placement I spent a total of 30 minutes coordinating, documenting and providing care for this patient excluding time spent in performance of separately billed services Admission and Anticipated Discharge Date Admission Date: November 30, 2023 Subjective Patient seen and examined Alert and oriented to person to person only. No complaints. Cooperative Limited ROS due to cognitive status Physical Exam Constitutional: + well hydrated; no acute distress Eyes: PERRL, conjunctivae normal, anicteric sclerae ENMT: external ear and nose normal, oropharynx normal Respiratory: normal respiratory effort, lungs clear to auscultation Cardiovascular: Rate/Rhythm: regular rate and regular rhythm Gastrointestinal (Abdomen): normal bowel sounds, soft, nontender, no hepatosplenomegaly Musculoskeletal: No pedal edema Neurologic: PERRL, EOMI, accommodation nl, no face palsy, no dysarthria Psychiatric: Orientation: alert, oriented to person and cooperative; + not oriented to place and + not oriented to time Results & Data Results & Data Vital Signs (Past 12 Hours) Vital Signs Temp Pulse Pulse Resp BP Pulse Ox O2 Del Method 12/08/23 08:06 36.4 C L 79 18 135/86 100 Room Air 12/08/23 03:54 36.6 C 62 18 106/69 100 Room Air 12/08/23 00:07 36.9 C 68 18 102/67 99 Room Air 12/07/23 23:56 72
[2023-12-08] MEDS: OLANZapine 5 MG TABLET PO PRN (21:54)
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
[2023-12-09 08:25] LABS: Hematocrit (blood only) 33.2 % (42.0-52.0); Hemoglobin 11.3 g/dl (14.0-18.0); Mean Corpuscular Volume 94.1 fL (80.0-100.0); Mean Platelet Volume 9.8 fL (9.4-12.4); Platelet Count 203 K/uL (130-400); RDW Coefficient of Variation 12.6 % (11.5-14.5); RDW Standard Deviation 43.7 fL (36.4-46.3); Red Blood Count 3.53 M/uL (4.70-6.10); White Blood Count 6.29 K/ul (4.8-10.8)
[2023-12-09 08:31] LABS: BUN Creatinine Ratio 12.5 (10-20); Calcium 8.9 mg/dl (8.6-10.3); Creatinine Clr Calc Pharmacy 60.9 ml/min; Est GFR (Non-African American) 60.4 ml/min; Potassium 3.6 mmol/L (3.5-5.1)
--- NOTE | 2023-12-09 09:24 | Hospitalist Progress Note ---
Date of Service December 09, 2023 Assessment & Plan (1) Agitation: Plan: Dementia with behavioral disturbance Delirium In setting of traumatic brain injury/dementia/alcohol use/Medications UA not suggestive of UTI No other obvious source of infection Normal TSH Appreciate psychiatry input Quetiapine discontinued Continue memantine Continue aripiprazole 5mg daily Also started on mirtazapine 7.5 mg at bedtime Can use olanzapine as needed for agitation. Monitor QTc Avoid benzodiazepines as much as possible Home lorazepam being weaned off. Currently at 0.5mg q8h prn. Plan to dc if not requiring Continue thiamine, folic acid Reorient prn Patient lacks decision making capacity at this time. It is important to know that patient may have lucid moments. However, based on degree of cognitive impairment and events preceding admission, I recommend deferring health care decision making to his . 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 Pain management consulted to assist us with this Prediabetes Last HbA1c 5.7 DVT Px: Lovenox SQ Code Status DNR/DNI CM working on placement I spent a total of 30 minutes coordinating, documenting and providing care for this patient excluding time spent in performance of separately billed services Admission and Anticipated Discharge Date Admission Date: November 30, 2023 Subjective Patient seen and examined Alert and oriented to person to person only. No complaints Cooperative Limited ROS due to cognitive status Physical Exam Constitutional: + well hydrated; no acute distress Eyes: PERRL, conjunctivae normal, anicteric sclerae ENMT: external ear and nose normal, oropharynx normal Respiratory: normal respiratory effort, lungs clear to auscultation Cardiovascular: Rate/Rhythm: regular rate and regular rhythm Gastrointestinal (Abdomen): normal bowel sounds, soft, nontender, no hepatosplenomegaly Musculoskeletal: No pedal edema Neurologic: PERRL, EOMI, accommodation nl, no face palsy, no dysarthria Psychiatric: Orientation: alert, oriented to person and cooperative; + not oriented to place and + not oriented to time Results & Data Results & Data Vital Signs (Past 12 Hours) Vital Signs Temp Pulse Pulse Resp BP Pulse Ox O2 Del Method 12/09/23 07:35 86 12/09/23 07:28 36.7 C 88 18 124/85 100 Room Air 12/09/23 03:07 36.4 C L 78 16 125/87 100 Room Air 12/08/23 23:24 36.4 C L 83 16 137/82 100 Room Air 12/08/23 22:16 77 Laboratory Results Abnormal lab results 12/09/23 Range/Units 07:15 RBC 3.53 L (4.70-6.10) M/uL Hgb 11.3 L (14.0-18.0) g/dl Hct 33.2 L (42.0-52.0) %
--- NOTE | 2023-12-09 15:57 | Electrocardiogram Report ---
Test Reason : Blood Pressure : */* mmHG Vent. Rate : 82 BPM Atrial Rate : 82 BPM P-R Int : 126 ms QRS Dur : 98 ms QT Int : 406 ms P-R-T Axes : 66 39 50 degrees QTcB Int : 474 ms Normal sinus rhythm Nonspecific ST and T wave abnormality Prolonged QT Incomplete right bundle branch block Abnormal ECG Confirmed by Mahesh Sebastian ([id number]) on 12/09/2023 3:56:38 PM Referred By: REFERRED SELF Confirmed By: Mahesh Sebastian
[2023-12-10] MEDS: OLANZapine 10 MG/2.1 ML SDV IM STA (08:41)
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
[2023-12-12 06:24] LABS: Basophils # (auto) 0.04 K/uL (0.00-0.20); Basophils % (auto) 0.8 %; Eosinophils # (auto) 0.12 K/uL (0.00-0.50); Eosinophils % (auto) 2.4 %; Hematocrit (blood only) 34.4 % (42.0-52.0); Hemoglobin 11.2 g/dl (14.0-18.0); Immature Granulocytes # (auto) 0.01 K/uL (0.01-0.20); Immature Granulocytes % (auto) 0.2 %; Lymphocytes # (auto) 2.38 K/uL (1.20-3.40); Lymphocytes % (auto) 46.7 %; Mean Corpuscular Hemoglobin 31.5 pg (25.0-34.0); Mean Corpuscular Hgb Conc 32.6 g/dL (32.0-36.0); Mean Corpuscular Volume 96.9 fL (80.0-100.0); Mean Platelet Volume 9.5 fL (9.4-12.4); Monocytes # (auto) 0.41 K/uL (0.11-0.59); Neutrophils # (auto) 2.14 K/uL (1.40-6.50); Neutrophils % (auto) 41.9 %; Platelet Count 189 K/uL (130-400); RDW Coefficient of Variation 12.9 % (11.5-14.5); RDW Standard Deviation 46.5 fL (36.4-46.3); Red Blood Count 3.55 M/uL (4.70-6.10)
[2023-12-12 06:39] LABS: BUN Creatinine Ratio 12.2 (10-20); Calcium 9.3 mg/dl (8.6-10.3); Est GFR (African American) 73.5 ml/min; Est GFR (Non-African American) 63.4 ml/min; Potassium 4.2 mmol/L (3.5-5.1)
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
[2023-12-12] MEDS: OLANZapine 5 MG TABLET PO SCH (21:29)
[2023-12-13 07:07] LABS: Basophils # (auto) 0.04 K/uL (0.00-0.20); Basophils % (auto) 0.8 %; Eosinophils % (auto) 1.9 %; Hematocrit (blood only) 33.8 % (42.0-52.0); Hemoglobin 11.5 g/dl (14.0-18.0); Immature Granulocytes # (auto) 0.02 K/uL (0.01-0.20); Immature Granulocytes % (auto) 0.4 %; Lymphocytes % (auto) 32.7 %; Mean Corpuscular Hemoglobin 32.3 pg (25.0-34.0); Mean Corpuscular Volume 94.9 fL (80.0-100.0); Mean Platelet Volume 9.7 fL (9.4-12.4); Monocytes # (auto) 0.47 K/uL (0.11-0.59); Neutrophils # (auto) 2.87 K/uL (1.40-6.50); Neutrophils % (auto) 55.2 %; Platelet Count 196 K/uL (130-400); RDW Coefficient of Variation 12.7 % (11.5-14.5); RDW Standard Deviation 44.2 fL (36.4-46.3); Red Blood Count 3.56 M/uL (4.70-6.10)
[2023-12-13 07:33] LABS: BUN Creatinine Ratio 14.4 (10-20); Calcium 9.5 mg/dl (8.6-10.3); Creatinine Clr Calc Pharmacy 64.2 ml/min; Est GFR (African American) 77.3 ml/min; Est GFR (Non-African American) 66.7 ml/min; Potassium 4.7 mmol/L (3.5-5.1)
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
[2023-12-14 06:12] LABS: Basophils # (auto) 0.03 K/uL (0.00-0.20); Basophils % (auto) 0.7 %; Eosinophils # (auto) 0.07 K/uL (0.00-0.50); Eosinophils % (auto) 1.5 %; Hematocrit (blood only) 33.3 % (42.0-52.0); Immature Granulocytes # (auto) 0.01 K/uL (0.01-0.20); Immature Granulocytes % (auto) 0.2 %; Lymphocytes # (auto) 1.44 K/uL (1.20-3.40); Lymphocytes % (auto) 31.6 %; Mean Corpuscular Hemoglobin 31.8 pg (25.0-34.0); Mean Corpuscular Volume 96.2 fL (80.0-100.0); Mean Platelet Volume 9.9 fL (9.4-12.4); Monocytes # (auto) 0.39 K/uL (0.11-0.59); Monocytes % (auto) 8.6 %; Neutrophils # (auto) 2.61 K/uL (1.40-6.50); Neutrophils % (auto) 57.4 %; Platelet Count 213 K/uL (130-400); RDW Coefficient of Variation 12.9 % (11.5-14.5); RDW Standard Deviation 45.3 fL (36.4-46.3); Red Blood Count 3.46 M/uL (4.70-6.10); White Blood Count 4.55 K/ul (4.8-10.8)
[2023-12-14 06:28] LABS: BUN Creatinine Ratio 14.8 (10-20); Calcium 9.3 mg/dl (8.6-10.3); Creatinine Clr Calc Pharmacy 62.1 ml/min; Est GFR (African American) 74.2 ml/min; Potassium 4.7 mmol/L (3.5-5.1)
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
--- NOTE | 2023-12-15 12:47 | Electrocardiogram Report ---
Test Reason : Blood Pressure : */* mmHG Vent. Rate : 83 BPM Atrial Rate : 83 BPM P-R Int : 116 ms QRS Dur : 146 ms QT Int : 408 ms P-R-T Axes : 78 74 66 degrees QTcB Int : 479 ms Normal sinus rhythm Right bundle branch block Abnormal ECG When compared with ECG of 08-Dec-2023 17:35, Right bundle branch block is now Present Confirmed by Toan Bowen ([id number]) on 12/15/2023 12:47:10 PM Referred By: REFERRED SELF Confirmed By: Toan Bowen
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
--- NOTE | 2023-12-16 13:22 | Communication Note ---
Date of Service: December 16, 2023 I spoke with the pt's over the phone today. I answered all of her questions and recommended she work with Dr. Asencio's office to setup [facility] for dose changes and refills of his intrathecal pump. She was provided with [employer] information as well. At the end of the call, she was pleased with outcome and all of her questions were answered.
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
[2023-12-17] MEDS: NICOTINE 14 MG/24 HR PATCH TD SCH (11:47)
--- NOTE | 2023-12-17 13:00 | Electrocardiogram Report ---
Test Reason : Blood Pressure : */* mmHG Vent. Rate : 66 BPM Atrial Rate : 66 BPM P-R Int : 130 ms QRS Dur : 142 ms QT Int : 434 ms P-R-T Axes : 62 55 63 degrees QTcB Int : 454 ms Normal sinus rhythm Right bundle branch block Abnormal ECG When compared with ECG of 14-Dec-2023 16:03, No significant change was found Confirmed by Toan Bowen ([id number]) on 12/17/2023 1:00:16 PM Referred By: REFERRED SELF Confirmed By: Toan Bowen
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
[2023-12-20] MEDS: POLYETHYLENE (MIRALAX) 17 GM PACK PO SCH (15:26)
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
[2023-12-25] MEDS ORDERED: MAGNESIUM HYDROXIDE SUSP 30 ML UDC PO PRN (12:41)
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
[2023-12-28] MEDS: ALUMINUM/MAGNESIUM SUSP 30 ML UDC PO PRN (10:06)
--- NOTE | 2023-12-28 14:34 | XRay Report ---
KUB CLINICAL HISTORY: Lower abdominal pain. COMPARISON STUDY: CT of the abdomen and pelvis November 06, 2023. FINDINGS: Cholecystectomy clips, lumbar spine decompression and fusion and left lower quadrant pump a re incidentally noted. The pump catheter is incompletely imaged on this exam. The bowel gas pattern i s normal. There is a large amount of stool within the rectum and moderate amount of stool within the colon. IMPRESSION: 1. No evidence for a bowel obstruction. 2. Large amount of stool within the rectum and moderate stool within the colon. ACT 112: Negative or not required by law. Electronically signed by: Weston Driver M.D. 12/28/2023 2:33 PM
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
[2023-12-28] MEDS: LACTULOSE SYRUP 30 GM/45 ML UDP PO STA (16:16)
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
[2023-12-30 07:53] VITALS: RESP 18; TEMP 98.4; O2SAT 99
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
[2023-12-30 10:33] VITALS: BP 111/70; PULSE 56
[2023-12-30 11:50] LABS: Influenza A virus by PCR Negative (Neg); Influenza B virus by PCR Negative (Neg); RSV by PCR Negative (Neg); SARS CoV2 RNA(COVID-19) Ceph NEGATIVE (Negative)
== END 2023-12-30 13:08 | DRG 884 ==
LOC: ED 23:27 → EDINP 23:27 → 2N 11-30 03:31 → SUATTDRO 11-30 12:56 → 2N 11-30 18:43

== ENCOUNTER 2024-01-31 21:21 | Inpatient (IN) ==
--- OUTSIDE RECORDS SUMMARY | 2024-01-31 21:27 | External Medical Summary ---
Author Name Unknown Address Unknown Organization K01[place] [place] [address] [facility] [place] [address] Laboratory Report Ordering Provider Test Date Status LUBNA MENDEZ 01/28/2024 11:34:11 Final Observation Date Value Abnormality Reference (Units ) Status Triglyceride 01/28/2024 11:34:11 55 <=174 ( mg/dL) Final Triglyceride Reference Range s (mg/dL):
<150 Acceptable
150-174 Borderline high
175-499 High
>=500 Very high Cholesterol 01/28/2024 11:34:11 124 <200 (mg /dL) Final Total Cholesterol Reference Ranges (mg/dL):
<200 Desirable
200-239 Borderline high
>=240 High HDL 01/28/2024 11:34:11 87 >39 (mg/dL ) Final HDL Cholesterol Reference Ra nges (mg/dL):
>=60 High (Desirable)
<50 Low (Undesirable) For Females
<40 Low (Undesirable) For Males NON-HDL CHOLESTEROL 01/28/2024 11:34:11 37 <=159 (mg/dL) Final Non-HDL Cholesterol Referenc e Range (mg/dL):
<100 Target level for high risk ASCVD patient
<130 Optimal for general population
130-159 Near optimal for general population
160-189 Borderline High
190-219 High
>=220 Very High LDL, (calculated) 01/28/2024 11:34:11 26 <= 129 (mg/dL) Final LDL Cholesterol Reference Ra nges (mg/dL):
<70 Target level for high risk ASCVD patient
<100 Optimal for general population
100-129 Near optimal for general population
130-159 Borderline high
160-189 High
>=190 Very high Performing Location [facility] [place] [address] [facility] [address]
--- OUTSIDE RECORDS SUMMARY | 2024-01-31 21:27 | External Medical Summary ---
Author Name Unknown Address Unknown Organization K01[place] [place] [address] [place] [address] Laboratory Report Ordering Provider Test Date Status LINA CANTU 01/28/2024 11:34:11 Final Observation Date Value Abnormality Reference (Units ) Status MYCODE SPECIMEN-SST 01/28/2024 11:34:11 Freezing of extracted DNA, whole blood and/or serum. Final Performing Location [facility] [place] [address] [place] [address]
--- OUTSIDE RECORDS SUMMARY | 2024-01-31 21:27 | External Medical Summary ---
Author Name Unknown Address Unknown Organization K01:[facility] [place] - [address] [address] Laboratory Report Ordering Provider Test Date Status LBUNA MENDEZ 01/28/2024 11:34:11 Final Observation Date Value Abnormality Reference (Units ) Status Uric Acid 01/28/2024 11:34:11 3.8 3.4-7.0 (m g/dL) Final Performing Location [facility] [place] - [address] [place] [address]
--- OUTSIDE RECORDS SUMMARY | 2024-01-31 21:27 | External Medical Summary | Summary of Care ---
Author Name Unknown Organization [facility] Address [address] [place] [address] Phone [phone] Care Team Providers Care [place] Name Role Phone Charles Mayer Primary Care Provider Reason for Visit * Reason Onset Date Comments Advice 01/26/2024 Encounter Details Date Type Department Care Team (Late st Contact Info) Description 01/26/2024 Telephone Neurology [address] [place] [phone] Services, Scheduling [address] [place] [address] Advice Allergies Active Allergy Reactions Criticality Noted Date [...] as of this encounter (statuses as of 01/29/2024) Medications Medication Sig Dispensed Refills Start Date End Date Status MORPHINE 5 MG/ML DATA INTEGRATION ARCHITECT SQ INFUSION (AMBULATORY)Indic ations:MEDICATION USE AGREEMENT Dose morphine per Pain management 1 Bolus Dosing Unit 5 10/04/2013 Active Pantoprazole Sodium 40 MG Oral Tablet [...] EVERY DAY 100 Tablet 1 10/01/2023 Active Famotidine 40 MG Oral Tablet (Pepcid)Indicatio ns:Gastroesophage al reflux disease without esophagitis Take 1 Tablet by mouth in the morning. 30 Tablet 11 10/23/2023 Active Additional Information Patient taking differently:40 mg Oral Daily(AM),Takes at bedtime, Reported on 01/22/2024 Loratadine 10 MG Oral Capsule Take 1 Capsule by mouth in the morning. Active Zinc Acetate 50 MG Oral Capsule Take 1 Capsule by mouth daily. Active Copper Caps 2 MG Oral Capsule [...] the morning. 100 Tablet 2 11/27/2023 Active Folic Acid 1 MG Oral Tablet Take 1 Tablet by mouth in the morning. 12/30/2023 Active Cyanocobalamin 1000 MCG/ML Injection Kit Inject 1,000 mcg into a large muscle every 30 days. 01/14/2024 Active LORazepam 1 MG Oral Tablet (Ativan) Take 1 Tablet by mouth every 8 hours as needed for Anxiety. 1 Tablet 01/14/2024 Active Cyclobenzaprine HCl 10 MG Oral Tablet Take 1 Tablet by mouth in the morning and 1 Tablet before bedtime. Takes 1 1/2 tabs (15 mg) three times day. 01/14/2024 Active Docusate Sodium 100 MG Oral Capsule (Colace) Take 2 Capsules by mouth in the morning and 2 Capsules before bedtime. 01/14/2024 Active Melatonin 10 MG Oral Tablet Take 1 Tablet by mouth at bedtime. 01/14/2024 Active Thiamine HCl 100 MG Oral Tablet (vitamin B-1) Take 1 Tablet by mouth in the morning. 01/14/2024 Active oxyCODONE 2.5 mg OR TABS Take 1 Tablet by mouth every 4 hours as needed. Takes 5 mg every 4 hours Active Natural Vegetable Laxative Oral Tablet Take by mouth. Takes 2 tabs at bedtime Active Mirtazapine 15 MG Oral Tablet (Remeron) Take 1 Tablet by mouth at bedtime. 30 Tablet 1 01/29/2024 Active OLANZapine 5 MG Oral Tablet (zyPREXA) Take 1 Tablet by mouth at bedtime. 30 Tablet 01/29/2024 Active promethazine (PHENERGAN) 12.5 MG Tablet TAKE 1 TABLET BY MOUTH EVERY 6 HOURS NEEDED FOR NAUSEA AND VOMITING 10/13/2019 4 Discontinue d(Refill) traZODone HCl 50 MG Oral Tablet (Desyrel) Take 1 Tablet by mouth at bedtime. 01/14/2024 4 Discontinue d(Refill) Mirtazapine 15 MG Oral Tablet (Remeron) Take 0.5 Tablets by mouth at bedtime. 01/14/2024 4 Discontinue d(Refill) OLANZapine 5 MG Oral Tablet (zyPREXA) Take 1 Tablet by mouth at bedtime. 01/14/2024 4 Discontinue d(Refill) oxyCODONE-Acetami nophen 5-325 MG Oral Tablet (Percocet) Take 1 Tablet by mouth every 4 hours as needed for Pain, Severe. 1 Tablet 01/14/2024 4 Discontinue d(Refill) documented as of this encounter (statuses as of 01/29/2024) Active Problems Problem Noted Date Diagnosed Date [...] anemia 04/24/2017 Coronary artery disease invo lving [place] heart without angina pectoris 04/18/2016 Incomplete tear of right rotator cuff 04/15/2016 Overview: 04/23 Dr Eduardo guerrero. Anxiety 09/28/2014 Diverticulitis of colon 09/16/2014 Intestinal postoperative nonabsorption 1 [facility]AHAN RESEARCH OTHER*[id number] 09/14/2009 ADVANCE DIRECTIVE INFORMATION 01/21/2009 Overview: No, Advance Directive brochure offered , patient declined. MEDICATION USE AGREEMENT 05/19/2008 Overview: See kim GERD (gastroesophageal reflux disease) Gout S/P gastric bypass S/P spinal fusion documented as of this encounter (statuses as of 01/29/2024) Resolved Problems Problem Noted Date Diagnosed Date Resolved Date Kidney disease, chronic, sta ge III (GFR 30-59 ml/min) 11/16/2018 02/17/2020 Overview: Per CKD protocol Well adult exam 04/18/2016 09/24/2018 Overview: ??Need eval hypoglycemia? S/p gastric bypass. Pain mgmt Dr Syed Asencio--[facility] +pain pump 02/22 EGD-Gastric bypass with [...] Tobacco use disorder 09/18/2009 011 Bariatric Proteinuria Research*[id number] 09/14/2009 12/27/2009 Organic sleep disorder 06/22/200910/10 Morbid obesity, BMI not known 06/22/2009 06/26/2010 Gout 05/08/2009 11/28/2014 History of tobacco use 05/08/200910/10 Sleep apnea 05/08/2009 06/22/2009 HTN, goal below 140/90 06/15/200809/28 JOINT DIS NOS-L-LEG 08/21/2004 03/16/20 19 HTN, goal below 140/90 09/22 Tobacco use disorder 017 Overview: smokeless 2cans per week documented as of this encounter (statuses as of 01/29/2024) Immunizations Name Administration Dates Next Due COVID-19 mRNA, LNP-s, No Pre serve, 2-Dose Series (Moderna) 09/11/2020,08/14/2020 Diptheria/Tetanus (Adult) 04/08/2005 H1N1 2009 Influenza, IM 04/24/2009 Pneumococcal Polysaccharide PPV23 (Pneumovax) 01/14/2013 Seasonal Influenza Vac., MDV , IM, 0.5 mL (Fluzone) 01/07/2014,01/14/2013,12/27/2011,12/06 Seasonal Influenza Virus Vac cine, Unspecified Formulation 12/24/2019,12/29/2018,01/20/2018,01/07,01/17/2016,01/07/2014,01/14/2013 ,12/27/2011,12/06/2008 Seasonal Influenza, PF, 6 M & above, IM , (FluLaval or Fluzone) 06/24/2023,12/27/2020,12/24/2019,12/29,01/07/2017 Seasonal Influenza, Quadriva lent, No Preserve, IM 01/20/2018,01/17/2016,01/10/2015 Seasonal Influenza, Trivalen t, (IIV3), PF, (Fluzone) 01/14/2024 TDAP (age 10 and older)(Boostrix) 07/15/2012 TDAP, Age 7 and older, IM (Adacel) 01/28/2024 documented as of this encounter Social History Tobacco Use Types Packs/Day Years Used Date Smoking Tobacco: Never Passive Smoke Exposure: Never Smokeless Tobacco: Former Snuff, Chew Comments:quit 12/2015. 1 can to regular tobacco to 2 cans of non nicotine which will last a few days or more Alcohol Use Standard Drinks/Week Comments Not Currently 0 (1 standard drink = 0.6 oz pur e alcohol) Occasionally PHQ-2 Answer Date Recorded PHQ Adult Total Score 2 01/22/2024 Hunger Vital Sign Answer Date Recorded Within the past 12 months, y ou worried that your food would run out before you got the money to buy more. Never true 01/22/20 24 Within the past 12 months, t he food you bought just didn't last and you didn't have money to get more. Never true 01/22/2024 Childcare Answer Date Recorded Do you feel overwhelmed with taking care of a child, family member or friend? No 01/22/2024 Does your family need help f inding childcare? (Household - for ages 0-17 years) Not on file 01/22/2024 Clothing Answer Date Recorded Have you been unable to get clothing when it was really needed? No 01/22/2024 Is your family able to get c lothes or diapers when needed? (Household - for ages 0-17 years) Not on file 01/22/2024 Personal Safety Answer Date Recorded Do you feel unsafe or have concerns for your saf ety? No 01/22/2024 Do you have concerns for you r family's safety? (Household - for ages 0-17 years) Not on file 01/22/2024 Utilities Answer Date Recorded Do you have trouble paying y our heating, water, or electric bill? No 01/22/2024 Is your family able to pay t he heat, water, or electric bill? (Household - for ages 0-17 years) Not on file 01/22/2024 Does your family have access to good internet? (Household - for ages 0-17 years) Not on file 01/22/2024 Employment Status Answer Date Recorded Are you unemployed or without regular income? No 01/22/2024 Does the household have a re gular source of income? (Household - for ages 0-17 years) Not on file 01/22/2024 Social Connections Answer Date Recorded How often do you feel lonely or isolated from those around you? Sometimes 01/22/2024 Financial Resource Strain Answer Date R ecorded Do you have any trouble payi ng for your medications, or do you think you might in the future? No 01/22/2024 Does your family have troubl e paying for medicine? (Household - for ages 0-17 years) Not on file 01/22/2024 Transportation Needs Answer Date Record ed READ ONLY Do you have troubl e getting a ride to medical visits or work? Never True 01/22/2024 Does your family have a hard time getting a ride to doctors visits? (Household - for ages 0-17 years) Not on file 01/22/2024 Has lack of transportation k ept you from medical appointments, meetings, work, or from getting things needed for daily living? Check all that apply. No 01/22/2024 Do you (or your family) have trouble finding or paying for a ride (transportation)? (Household - for ages 0-17 years) Not on file 01/22/2024 Housing Stability Answer Date Recorded Do you currently live in a s helter or have no steady place to sleep at night? No 01/22/2024 READ ONLY Do you think you a re at risk of becoming homeless? No 01/22/2024 Does your family worry about paying for your home or becoming homeless? (Household - for ages 0-17 years) Not on file 1 Are you homeless or worried that you might be in the future? No 01/22/2024 Are you (or your family) lisa eless or worried that you might be in the future? (Household - for ages 0-17 years) Not on file Food Insecurity Answer Date Recorded Do you need food for this week? No 01/22/2024 Are you able to get enough f ood for your family? (Household - for ages 0-17 years) Not on file 01/22/2024 Does your family need food t his week? (Household - for ages 0-17 years) Not on file 01/22/2024 Do you always have enough fo od for your family? (Household - for ages 0-17 years) Not on file 01/22/2024 Sex and Gender Information Value Date Recorded Sex Assigned at Male 09/24/2018 10:21 AM EDT Gender Identity Male 09/24/2018 10:21 AM EDT Sexual Orientation Straight 09/24/2018 10 :21 AM EDT Job Start Date Occupation Industry Not on file Not on file Not on file documented as of this encounter Miscellaneous Notes * Telephone Encounter - Myrna Gray CMA - 01/29/2024 12:14 PM EDT Spoke to Alisha and advised of the below message. She verbally understood. * Addendum Note - Juany Franklin CRNP - 01/29/2024 12:11 PM EDTAddended by: JUANY FRANKLIN on: 01/29/2024 12:11 PM Modules accepted: Orders * Telephone Encounter - Fang Shaikh OSA - 01/29/2024 11:40 AM EDT Alisha thomas calling back regarding below please call back today pt will be out of [phone] * Telephone Encounter - Myrna Gray CMA - 01/29/2024 11:36 AM EDT LMOM advising that I was calling to get some more info regarding her questions for Juany Franklin. * Telephone Encounter - Juany Franklin CRNP - 01/28/2024 4:06 PM EDT I do not have time available in my schedule to call spouse directly. Please see what questions she has in regards to the medications and then I can address. * Telephone Encounter - Annette Meadows RN - 01/28/2024 4:03 PM EDT Juany, patient's Alisha had questions for you about adjusting medications. Please call her directly. Thank you! * Telephone Encounter - Juany Franklin CRNP - 01/28/2024 3:38 PM EDT If we increase the mirtazapine dose, this should also help him to sleep. I would recommend increasing the Mirtazapine to 15 mg at bedtime (1 whole tablet). He should wean off of the Trazodone and take 1/2 tablet by mouth at bedtime for 5 days and then stop. If he starts to have trouble sleeping once he is weaned off of the trazodone, we can always consider further increasing the mirtazapine to help more with sleep. I sent the refills to his pharmacy. * Telephone Encounter - Annette Meadows RN - 01/28/2024 10:54 AM EDT Pt saw Dr Mayer today and this CM spoke with them while in the clinic. Juany's message was given to them. They/Alisha is willing to try adjusting medications as recommended by Juany. Her only concern is that the patient does not sleep at night without Trazadone. Alisha also states she will be out of his medications on Friday and needs prescriptions sent in. Please call Alisha to further discuss medication adjustments. * Telephone Encounter - Juany Franklin CRNP - 01/27/2024 12:14 PM EDT It looks like patient is on both Trazodone and mirtazapine. Neither of these medications are optimized, so unsure why he needs both? We could consider weaning off Trazodone and increasing mirtazapine. He's had trouble with his appetite so having mirtazapine on board can help increase appetite. I'm not sure if she would like to try this to help with appetite and possibly simplify medication regimen? * Telephone Encounter - Anabelle Ellison OSA - 01/26/2024 9:53 AM EDT Who is calling: Sguey () Provider patient is established with: Rigoberto What is the concern or issue they are having: requesting to speak with Caren ALFARO regarding patient's medication. Pts phone number for nurse to call back: [phone] documented in this encounter Plan of Treatment Upcoming Encounters Date Type Department Care Team (Late st Contact Info) Description 04/15/2024 9:00 AM EST Office Visit Neurology [address] [place] [address] Juany Franklin CRNP [address] [facility] [place] [address] 10/28/2024 11:40 AM EDT Office Visit Family [facility] [address] [place] [address] Charles Mayer DO [address] [place] [address] Scheduled Procedures Name Priority Associated Diagnoses Date/Ti me ESOPHAGOGASTRODUODENOSCOPY ( EGD), FLEXIBLE, TRANSORAL, DIAGNOSTIC Recall Esophageal reflux Health Maintenance Due Date Last Done Comments Cologuard 2008 Fecal Occult Blood Test 2008 Sigmoidoscopy 2008 Zoster Vaccines (1 of 2) 2013 Colonoscopy 06/03/2018 06/03/2017, 06/03/2017 Colorectal Cancer Screening 06/03/2018 COVID-19 Vaccine ( season) 2023 09/11/2020, 08/14/2020 Albumin/Creatinine Ratio 06/11/2024 06/12/2023, 0606/2014 GFR 07/28/2024 01/28/2024, 11/06, 10/27/2023, Additional history exists CKD HGB USE SMARTSET 69950 11/24/202411/24, 11/25/2023, 06/11/2023, Additional history exists CKD PHOS USE SMARTSET 47101 11/24/202411/06, 06/11/2023, 12/24/2019 Depression Screening 01/21/2025 01/22/2024 Diabetes Screening 01/27/2027 01/28/2024, 0 11/25/2023, 10/27/2023, Additional history exists DTap/Tdap Vaccines (5 - Td or Tdap) 01/27/2034 01/28/2024, 11/07/2013, 11/07/2013, Additional history exists Pneumococcal Vaccine: Pediatrics (0 to 5 Years) and At-Risk Patients (6 to 64 Years) Aged Out 01/14/2013 No longer eligible based on patient's age to complete this topic RETIRED - COLONOSCOPY-ANNUAL AGES 18-100 Discontinued 06/03/2017, 06/03/2017 Influenza Vaccine (FLU shot) Completed 01/14/2024, 06/24/2023, 12/27/2020, Additional history exists HPV (Gardasil) Vaccine Aged Out No lo [...] Documents on File Type Date Recorded Patient [employer] Expl 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 Care Teams [place] Relationship Specialty Start Date End Date Charles Mayer DO [address] [place] [id number] PCP - General Family Medicine 05/26/23 documented as of this encounter
--- OUTSIDE RECORDS SUMMARY | 2024-01-31 21:27 | External Medical Summary ---
Author Name Unknown Address Unknown Organization : Laboratory Report Ordering Provider Test Date Status LUBNA MENDEZ 01/28/2024 11:34:11 Final Observation Date Value Abnormality Reference (Units ) Status Copper 01/28/2024 11:34:11 81 70-175 (mc g/dL) Final This test was developed and its analytical performance
characteristics have been determined by [employer]
[place] It has
not been cleared or approved by the U.S. Food and Drug
Administration. This assay has been validated pursuant
to the CLIA regulations and is used for clinical
purposes.

Test Performed at:
[facility]
[address] [facility] [place] [address]
Matt Francisco M.D., Ph.D.,Director of Laboratories Performing Location
--- OUTSIDE RECORDS SUMMARY | 2024-01-31 21:27 | External Medical Summary | Summary of Care ---
Author Name Unknown Organization [facility] Address [address] [place] [address] Phone [phone] Care Team Providers Care Assistant Cook Name Role Phone Marsha Mayeradin [place] Primary Care Provider Reason for Visit * Reason Onset Date Comments Medication Refill 01/22/2024 Encounter Details Date Type Department Care Team (Late st Contact Info) Description 01/22/2024 Refill Family Practice [facility] [address] [place] [address] Annette Meadows, RN [address] [place] [address] Coronary artery disease involving [place] coronary artery of [place] heart without angina pectoris*; Stage 3a chronic kidney disease; Gastroesophageal reflux disease without esophagitis; Dementia (HCC) Allergies Active Allergy Reactions Criticality Noted Date [...] as of this encounter (statuses as of 01/28/2024) Medications Medication Sig Dispensed Refills Start Date End Date Status MORPHINE 5 MG/ML ONLINE MARKETING COORDINATOR SQ INFUSION (AMBULATORY)Indic ations:MEDICATION USE AGREEMENT Dose [...] bedtime Active Mirtazapine 15 MG Oral Tablet (Remeron)Indicati ons:Coronary artery disease involving [place] coronary artery of [place] heart without angina pectoris,Stage 3a chronic kidney disease (HCC),Gastroesoph ageal reflux disease without esophagitis,Demen tia (HCC) Take 1 Tablet by mouth at bedtime. 90 Tablet 3 01/28/2024 Active OLANZapine 5 MG Oral Tablet (zyPREXA)Indicati ons:Coronary artery disease involving [place] coronary artery of [place] heart without angina pectoris,Stage 3a chronic kidney disease (HCC),Gastroesoph ageal reflux disease without esophagitis,Demen tia (HCC) Take 1 Tablet by mouth at bedtime. 90 Tablet 3 01/28/2024 Active traZODone HCl 50 MG Oral Tablet (Desyrel)Indicati ons:Coronary artery disease involving [place] coronary artery of [place] heart without angina pectoris,Stage 3a chronic kidney disease (HCC),Gastroesoph ageal reflux disease without esophagitis,Demen tia (HCC) Take 1/2 tablet at bedtime for 5 days then stop 90 Tablet 3 01/28/2024 Active promethazine (PHENERGAN) 12.5 MG Tablet TAKE [...] as of this encounter (statuses as of 01/28/2024) Active Problems Problem Noted Date Diagnosed Date [...] anemia 04/24/2017 Coronary artery disease invo lving [place] heart without angina pectoris 04/18/2016 Incomplete tear of right rotator cuff 04/15/2016 Overview: 04/23 Dr Eduardo guerrero. Anxiety 09/28/2014 Diverticulitis of colon 09/16/2014 Intestinal postoperative nonabsorption 1 CALLAHAN RESEARCH OTHER*[id number] 09/14/2009 ADVANCE DIRECTIVE INFORMATION 01/21/2009 Overview: No, Advance Directive brochure offered , patient declined. MEDICATION USE AGREEMENT 05/19/2008 Overview: See kim GERD (gastroesophageal reflux disease) Gout S/P gastric bypass S/P spinal fusion documented as of this encounter (statuses as of 01/28/2024) Resolved Problems Problem Noted Date Diagnosed Date Resolved Date Kidney disease, chronic, sta ge III (GFR 30-59 ml/min) 11/16/2018 02/17/2020 Overview: Per CKD protocol Well adult exam 04/18/2016 09/24/2018 Overview: ??Need eval hypoglycemia? S/p gastric bypass. Pain mgmt Dr Syed Asencio--[facility] +pain pump 02/22 EGD-Gastric bypass with [...] Tobacco use disorder 09/18/2009 011 Bariatric Proteinuria Research*[id number] 09/14/2009 12/27/2009 Organic sleep disorder 06/22/200910/10 Morbid obesity, BMI not known 06/22/2009 06/26/2010 Gout 05/08/2009 11/28/2014 History of tobacco use 05/08/200910/10 Sleep apnea 05/08/2009 06/22/2009 HTN, goal below 140/90 06/15/200809/28 JOINT DIS NOS-L-LEG 08/21/2004 03/16/20 HTN, goal below 140/90 09/22 Tobacco use disorder 017 Overview: smokeless 2cans per week documented as of this encounter (statuses as of 01/28/2024) Immunizations Name Administration Dates Next Due COVID-19 [...] 01/14/2024 TDAP (age 10 and older)(Boostrix) 07/15/2012 documented [...] encounter Miscellaneous Notes * Telephone Encounter - Juany Franklin CRNP - 01/28/2024 4:22 PM EDTSigned Prescriptions: Disp Refills Mirtazapine 15 MG Oral Tablet (Remeron) 90 Tab*3 Sig: Take 1 Tablet by mouth at bedtime.Authorizing Provider: JUANY FRANKLIN OLANZapine 5 MG Oral Tablet (zyPREXA) 90 Tab*3 Sig: Take 1 Tablet by mouth at bedtime.Authorizing Provider: JUANY FRANKLIN traZODone HCl 50 MG Oral Tablet (Desyrel) 90 Tab*3 Sig: Take 1/2 tablet at bedtime for 5 days then stop Authorizing Provider: JUANY FRANKLIN Prescriptions: Disp Refills OLANZapine 5 MG Oral Tablet (zyPREXA) 90 Tab*3 Sig: Take 1 Tablet by mouth at bedtime.Refused By: NIKHIL FLOR for Refusal: Managed by another physician traZODone HCl 50 MG Oral Tablet (Desyrel) 90 Tab*3 Sig: Take 1 Tablet by mouth at bedtime.Refused By: NIKHIL FLOR for Refusal: Managed by another physician Mirtazapine 7.5 MG Oral Tablet (Remeron) 90 Tab*3 Sig: Take 1 Tablet by mouth at bedtime.Refused By: NIKHIL FLOR for Refusal: Managed by another physician Promethazine HCl12.5 MG Oral Tablet (Phen*30 Tab*3 Sig: Take 1 Tablet by mouth every 6 hours as needed for Nausea.Refused By: NIKHIL FLOR for Refusal: Managed by another physician * Telephone Encounter - Caren Julian OSA - 01/27/2024 9:40 AM EDTPending Prescriptions: Disp Refills Mirtazapine 15 MG Oral Tablet (Remeron) 90 Tab*3 Sig: Take 0.5 Tablets by mouth at bedtime. OLANZapine 5 MG Oral Tablet (zyPREXA) 90 Tab*3 Sig: Take 1 Tablet by mouth at bedtime. traZODone HCl 50 MG Oral Tablet (Desyrel) 90 Tab*3 Sig: Take 1 Tablet by mouth at bedtime. Refused Prescriptions: Disp Refi lls OLANZapine 5 MG Oral Tablet (zyPREXA) 90 Tab*3 Sig: Take 1 Tablet by mouth at bedtime. Refused By: NIKHIL FLOR Reason for Refusal: Managed by another physician traZODone HCl 50 MG Oral Tablet (Desyrel) 90 Tab*3 Sig: Take 1 Tablet by mouth at bedtime. Refused By: NIKHIL FLOR Reason for Refusal: Managed by another physician Mirtazapine 7.5 MG Oral Tablet (Remeron) 90 Tab*3 Sig: Take 1 Tablet by mouth at bedtime. Refused By: NIKHIL FLOR Reason for Refusal: Managed by another physician Promethazine HCl 12.5 MG Oral Tablet (Phen*30 Tab*3 Sig: Take 1 Tablet by mouth every 6 hours as needed for Nausea. Refused By: NIKHIL FLOR Reason for Refusal: Managed by another physician * Telephone Encounter - Annette Meadows RN - 01/26/2024 9:05 AM EDT Called Alisha regarding trazadone and mirtazapine prescriptions as requested by Juany ALFARO below. Left message on voice mail for Alisha to call Juany's office directly to discuss these prescriptions for better optimization. * Telephone Encounter - Annette Meadows RN - 01/23/2024 12:49 PM EDTPending Prescriptions: Disp Refills Mirtazapine 15 MG Oral Tablet (Remeron) 90 Tab*3 Sig: Take 0.5 Tablets by mouth at bedtime. OLANZapine 5 MG Oral Tablet (zyPREXA) 90 Tab*3 Sig: Take 1 Tablet by mouth at bedtime. traZODone HCl 50 MG Oral Tablet (Desyrel) 90 Tab*3 Sig: Take 1 Tablet by mouth at bedtime. Refused Prescriptions: Disp Refi lls OLANZapine 5 MG Oral Tablet (zyPREXA) 90 Tab*3 Sig: Take 1 Tablet by mouth at bedtime. Refused By: NIKHIL FLOR Reason for Refusal: Managed by another physician traZODone HCl 50 MG Oral Tablet (Desyrel) 90 Tab*3 Sig: Take 1 Tablet by mouth at bedtime. Refused By: NIKHIL FLOR Reason for Refusal: Managed by another physician Mirtazapine 7.5 MG Oral Tablet (Remeron) 90 Tab*3 Sig: Take 1 Tablet by mouth at bedtime. Refused By: NIKHIL FLOR Reason for Refusal: Managed by another physician Promethazine HCl 12.5 MG Oral Tablet (Phen*30 Tab*3 Sig: Take 1 Tablet by mouth every 6 hours as needed for Nausea. Refused By: NIKHIL FLOR Reason for Refusal: Managed by another physician * Telephone Encounter - Caren Julian OSA - 01/23/2024 10:55 AM EDT Record request faxed successfully to [phone]. * Telephone Encounter - Juany Franklin CRNP - 01/23/2024 10:42 AM EDT Caren, Can you please obtain most recent EKG from [facility] so I am able to review? Annette, I'm unsure why he's on both the Trazodone and mirtazapine?? Neither of these medications are optimized, so unsure why he needs both? We could consider weaning off Trazodone and increasing mirtazapine. He's had trouble with his appetite so having mirtazapine on board would help with that. Please let me know what patient's would like to try. The promethazine prescription will need to be managed by PCP. * Telephone Encounter - Annette Meadows RN - 01/23/2024 10:36 AM EDTPending Prescriptions: Disp Refills Mirtazapine 15 MG Oral Tablet (Remeron) 90 Tab*3 Sig: Take 0.5 Tablets by mouth at bedtime. Promethazine HCl 12.5 MG Oral Tablet (Phe*30 Tab*3 Sig: Take 1 Tablet by mouth every 6 hours as needed for Nausea. OLANZapine 5 MG Oral Tablet (zyPREXA) 90 Tab*3 Sig: Take 1 Tablet by mouth at bedtime. traZODone HCl 50 MG Oral Tablet (Desyrel) 90 Tab*3 Sig: Take 1 Tablet by mouth at bedtime. Refused Prescriptions: Disp Refills OLANZapine 5 MG Oral Tablet (zyPREXA) 90 Tab*3 Sig: Take 1 Tablet by mouth at bedtime. Refused By: NIKHIL FLOR Reason for Refusal: Managed by another physician traZODone HCl 50 MG Oral Tablet (Desyrel) 90 Tab*3 Sig: Take 1 Tablet by mouth at bedtime. Refused By: NIKHIL FLOR Reason for Refusal: Managed by another physician Mirtazapine 7.5 MG Oral Tablet (Remeron) 90 Tab*3 Sig: Take 1 Tablet by mouth at bedtime. Refused By: NIKHIL FLOR Reason for Refusal: Managed by another physician Promethazine HCl 12.5 MG Oral Tablet (Phen*30 Tab*3 Sig: Take 1 Tablet by mouth every 6 hours as needed for Nausea . Refused By: NIKHLI FLOR Reason for Refusal: Managed by another physician * Telephone Encounter - nAnette Meadows RN - 01/23/2024 10:26 AM EDT is requesting 4 prescriptions be sent to [facility]. documented in this encounter Plan of Treatment Upcoming Encounters Date Type Department Care Team (Late st Contact Info) Description 04/15/2024 9:00 AM EST Office Visit Neurology [address] [place] [phone] Juany Franklin CRNP [address] [facility] [place] [address] 10/28/2024 11:40 AM EDT Office Visit Family Practice [facility] [address] [place] [address] Charles Mayer DO [address] [place] [address] Scheduled Procedures Name Priority Associated Diagnoses Date/Ti me ESOPHAGOGASTRODUODENOSCOPY ( EGD), FLEXIBLE, TRANSORAL, DIAGNOSTIC Recall Esophageal reflux Health Maintenance Due Date Last Done Comments Cologuard 2008 Fecal Occult Blood Test 2008 Sigmoidoscopy 2008 Zoster Vaccines (1 of 2) 2013 Colonoscopy 06/03/2018 06/03/2017, 06/03/2017 Colorectal Cancer Screening 06/03/2018 COVID-19 Vaccine ( season) 2023 09/11/2020, 08/14/2020 Albumin/Creatinine Ratio 06/11/2024 06/12/2023, 06/0 06/2014 GFR 07/28/2024 01/28/2024, 11/06, 10/27/2023, Additional history exists CKD HGB USE SMARTSET 01509 11/24/202411/24, 11/25/2023, 06/11/2023, Additional history exists CKD PHOS USE SMARTSET 53160 11/24/202411/06, 06/11/2023, 12/24/2019 Depression Screening 01/21/2025 01/22/2024 [...] as of this encounter Visit Diagnoses Diagnosis Coronary artery disease involving otoe-[place]ou[place] coronary artery of o[place] heart without angina pectoris- Primary Stage 3a chronic kidney disease Gastroesophageal reflux disease without esophagitis Esophageal reflux Dementia (HCC) Dementia, unspecified, without behavioral disturbance documented in this encounter Advance Directives Documents on File Type Date Recorded 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 Care Teams Assistant Cook Relationship Specialty Start Date End Date Charles Mayer DO [address] [place] [address] PCP - General Family Medicine 05/26/23 documented as of this encounter
--- OUTSIDE RECORDS SUMMARY | 2024-01-31 21:27 | External Medical Summary | Summary of Care ---
Author Name Unknown Organization [facility] Address [address] [place] [address] Phone [phone] Care Team Providers Care Alarm Adjuster Name Role Phone Charles Mayer Primary Care Provider Reason for Visit * Reason Onset Date Comments Advice 01/26/2024 Encounter Details Date Type Department Care Team (Late st Contact Info) Description 01/26/2024 Telephone [address]rology [address] [place] [phone] Services, Scheduling [address] [place] [address] Advice Allergies Active Allergy Reactions Criticality Noted [...] Date End Date Status MORPHINE 5 MG/ML LOGISTICS/SHIPPER SQ INFUSION (AMBULATORY)Indic ations:MEDICATION USE AGREEMENT Dose [...] mouth. Takes 2 tabs at bedtime Active promethazine (PHENERGAN) 12.5 MG Tablet TAKE [...] cancer 10/10/2019 Overview: BCC central nasal dorsum 6/19 Right upper lobe pulmonary nodule 01/21/2019 History of skull fracture 09/24/2018 History of trauma to spine 09/24/2018 Iron deficiency anemia 04/24/2017 Coronary artery disease invo lving [place] heart without angina pectoris 04/18/2016 Incomplete tear of right rotator cuff 04/15/2016 Overview: 04/23 Dr Eduardo guerrero. Anxiety 09/28/2014 Diverticulitis of colon 09/16/2014 Intestinal postoperative nonabsorption 1 CALLAHAN RESEARCH OTHER*[id number] 09/14/2009 ADVANCE DIRECTIVE INFORMATION 01/21/2009 Overview: No, [...] S/p gastric bypass. Pain mgmt Dr Syed Asencio--[facility] +pain pump 02/22 EGD-Gastric bypass with [...] Tobacco use disorder 09/18/2009 011 Bariatric Proteinuria Research*[id number] 09/14/2009 12/27/2009 Organic sleep disorder 06/22/200910/10 Morbid [...] No 01/22/2024 Does the household have a [facility] source of income? (Household - for ages [...] encounter Miscellaneous Notes * Telephone Encounter - Fang Shaikh OSA - 01/29/2024 11:40 AM EDT Alisha thomas calling back regarding below please call back today pt will be out of [phone] * Telephone Encounter - Myrna Gray CMA - 01/29/2024 11:36 AM EDT LMOM advising that I was calling to get some more info regarding her questions for Heather Franklin. * Telephone Encounter - Heather Franklin CRNP - 01/28/2024 4:06 PM EDT I do not have time available in my schedule to call spouse directly. Please see what questions she has in regards to the medications and then I can address. * Telephone Encounter - Annette Meadows RN - 01/28/2024 4:03 PM EDT Heather, patient's Alisha had questions for you about adjusting medications. Please call her directly. Thank you! * Telephone Encounter - Heather Franklin CRNP - 01/28/2024 3:38 PM EDT [...] spoke with them while in the clinic. Heather's message was given to them. They/Alisha is willing to try adjusting medications as recommended by Heather. Her only concern is that the patient does not sleep at night without Trazadone. Alisha also states she will be out of his medications on Friday and needs prescriptions sent in. Please call Alisha to further discuss medication adjustments. * Telephone Encounter - Heather Franklin CRNP - 01/27/2024 12:14 PM EDT [...] 01/26/2024 9:53 AM EDT Who is calling: Sugey () Provider patient is established with: Rigoberto What is the concern or issue they are having: requesting to speak with Caren Rigoberto ALFARO regarding patient's medication. Pts phone number for nurse to call back: [phone] documented in this encounter Plan of Treatment Upcoming Encounters Date Type Department Care Team (Late st Contact Info) Description 04/15/2024 9:00 AM EST Office Visit Neurology [address] [place] [phone] Heather Franklin CRNP [address] [facility] [place] [address] 10/28/2024 11:40 AM EDT Office Visit 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 Care Teams Alarm Adjuster Relationship Specialty Start Date End Date Charles Mayer DO [address] [place] [address] PCP - General Family Medicine 05/26/23 documented as of this encounter
--- OUTSIDE RECORDS SUMMARY | 2024-01-31 21:27 | External Medical Summary | Summary of Care ---
Author Name Unknown Organization [facility] Address [address] [place] [address] Phone [phone] Care Team Providers Care Herbologist Name Role Phone Charles aMyer Primary Care Provider Reason for Visit * Reason Onset Date Comments Advice 01/26/2024 Encounter Details Date Type Department Care Team (Late st Contact Info) Description 01/26/2024 Telephone [address]rology [address] [place] [phone] Services, Scheduling [address] [place] [address] Advice Allergies Active Allergy Reactions Criticality Noted [...] Date End Date Status MORPHINE 5 MG/ML FISHER CLAM SQ INFUSION (AMBULATORY)Indic ations:MEDICATION USE AGREEMENT Dose [...] anemia 04/24/2017 Coronary artery disease invo lving [place] heart without angina pectoris 04/18/2016 Incomplete tear of right rotator cuff 04/15/2016 Overview: 04/23 Dr Eduardo guerrero. Anxiety 09/28/2014 Diverticulitis of colon 09/16/2014 Intestinal postoperative nonabsorption 1 CALLAHAN RESEARCH OTHER*[id number] 09/14/2009 ADVANCE DIRECTIVE INFORMATION 01/21/2009 Overview: No, [...] S/p gastric bypass. Pain mgmt Dr Syed Asencio--[facility] +pain pump 02/22 EGD-Gastric bypass with [...] Tobacco use disorder 09/18/2009 011 Bariatric Proteinuria Research*[id number] 09/14/2009 12/27/2009 Organic sleep disorder 06/22/200910/10 Morbid [...] No 01/22/2024 Does the household have a [facility] source [facility] income? (Household - for ages [...] back today pt will be out of [phone] * Telephone Encounter - Myrna Gray CMA [...] phone number for nurse to call back: [phone] documented in this encounter Plan of Treatment Upcoming Encounters Date Type Department Care Team (Late st Contact Info) Description 04/15/2024 9:00 AM EST Office Visit Neurology [address] [place] [phone] Heather Franklin CRNP [address] [facility] [place] [address] 10/28/2024 11:40 AM EDT Office Visit 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 Care Teams Herbologist Relationship Specialty Start Date End Date Charles Mayer DO [address] [place] [address] PCP - General Family Medicine 05/26/23 documented as of this encounter
--- OUTSIDE RECORDS SUMMARY | 2024-01-31 21:27 | External Medical Summary ---
Author Name Unknown Address Unknown Organization K01:[facility] [place] [address] [place] [address] Laboratory Report Ordering Provider Test Date Status LINA CANTU 01/28/2024 11:34:11 Final Observation Date Value Abnormality Reference (Units ) Status MYCODE SPECIMEN-SST 01/28/2024 11:34:11 Freezing of extracted DNA, whole blood and/or serum. Final Performing Location [facility] [place] [address] [place] [address]
--- OUTSIDE RECORDS SUMMARY | 2024-01-31 21:27 | External Medical Summary | Summary of Care ---
Author Name Unknown Organization [facility] Address [address] [place] [address] Phone [phone] Care Team Providers Care Fnps Name Role Phone Charles Mayer Primary Care Provider Reason for Visit * Reason Onset Date Comments Advice 01/26/2024 Encounter Details Date Type Department Care Team (Late st Contact Info) Description 01/26/2024 Telephone Neurology [address] [place] [phone] Services, Scheduling [address] [place] [address] Advice Allergies Active Allergy Reactions Criticality Noted [...] Date End Date Status MORPHINE 5 MG/ML AQUACULTURE FARM MANAGER SQ INFUSION (AMBULATORY)Indic ations:MEDICATION USE AGREEMENT Dose [...] anemia 04/24/2017 Coronary artery disease invo lving [place] heart without angina pectoris 04/18/2016 Incomplete tear of right rotator cuff 04/15/2016 Overview: 04/23 Dr Eduardo guerrero. Anxiety 09/28/2014 Diverticulitis of colon 09/16/2014 Intestinal postoperative nonabsorption 1 CALLAHAN RESEARCH OTHER*[id number] 09/14/2009 ADVANCE DIRECTIVE INFORMATION 01/21/2009 Overview: No, [...] Tobacco use disorder 09/18/2009 011 Bariatric Proteinuria Research*[id number] 09/14/2009 12/27/2009 Organic sleep disorder 06/22/200910/10 Morbid [...] as of this encounter Miscellaneous Notes * Addendum Note - Juany Franklin CRNP - 01/29/2024 12:11 PM EDTAddended by: JUANY FRANKLIN on: 01/29/2024 12:11 PM Modules accepted: Orders * Telephone Encounter - Fang Shaikh OSA - 01/29/2024 11:40 AM EDT Alisha thomas calling back regarding below please call back today pt will be out of [phone] * Telephone Encounter - Myrna rGay CMA - 01/29/2024 11:36 AM EDT LMOM [...] phone number for nurse to call back: [phone] documented in this encounter Plan of Treatment Upcoming Encounters Date Type Department Care Team (Late st Contact Info) Description 04/15/2024 9:00 AM EST Office Visit Neurology [address] [place] [phone] Juany Franklin CRNP [address] [place] [address] 10/28/2024 11:40 AM EDT Office Visit Family [facility] [address] [place] [address] Charles Mayer, [address] [place] [address] Scheduled Procedures Name Priority Associated Diagnoses Date/Ti me ESOPHAGOGASTRODUODENOSCOPY ( EGD), FLEXIBLE, TRANSORAL, DIAGNOSTIC Recall Esophageal reflux Health Maintenance Due Date Last Done Comments Cologuard 2008 Fecal Occult Blood Test 2008 Sigmoidoscopy 2008 Zoster Vaccines (1 of 2) 2013 Colonoscopy 06/03/2018 06/03/2017, 06/03/2017 Colorectal Cancer Screening 06/03/2018 COVID-19 Vaccine ( season) 2023 09/11/2020, 08/14/2020 Albumin/Creatinine Ratio 06/11/2024 06/12/2023, 06/2014 GFR 07/28/2024 01/28/2024, 11/06, 10/27/2023, Additional history exists CKD HGB USE SMARTSET 21724 11/24/202411/24, 11/25/2023, 06/11/2023, Additional history exists CKD PHOS USE SMARTSET 27963 11/24/202411/06, 06/11/2023, 12/24/2019 Depression Screening 01/21/2025 01/22/2024 [...] Documents on File Type Date Recorded 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 Care Teams Fnps Relationship Specialty Start Date End Date Charles Mayer DO [address] [place], [place] [address] [address] PCP - General Family Medicine 05/26/23 documented as of this encounter
--- OUTSIDE RECORDS SUMMARY | 2024-01-31 21:27 | External Medical Summary | Summary of Care ---
Author Name Unknown Organization [facility] Address [address] [place] [place] [address] Phone [phone] Care Team Providers Care Weed Science Research Technician Name Role Phone Charles Mayer DO Primary Care Provider Reason for Visit * Reason Comments Outpatient Testing Encounter Details Date Type Department Care Team (Late st Contact Info) Description 01/28/2024 11:10 AM EDT Laboratory Laboratory, [facility] [address] [facility] [address] [facility] [address] [facility] [address] MyCode Research Other*[id number]; Vascular dementia with agitation, unspecified dementia severity (HCC); Encounter for long-term (current) use of medications; Coronary artery disease involving cherokee coronary artery of cherokee heart without angina pectoris; Idiopathic gout, unspecified chronicity, unspecified site Allergies Active Allergy Reactions Criticality Noted Date [...] Date End Date Status MORPHINE 5 MG/ML CHAIN BUILDER LOOM CONTROL SQ INFUSION (AMBULATORY)Indic ations:MEDICATION USE AGREEMENT Dose [...] Tablet by mouth at bedtime. 01/14/2024 Active traZODone HCl 50 MG Oral Tablet (Desyrel) Take 1 Tablet by mouth at bedtime. 01/14/2024 Active Mirtazapine 15 MG Oral Tablet (Remeron) Take 0.5 Tablets by mouth at bedtime. 01/14/2024 Active OLANZapine 5 MG Oral Tablet (zyPREXA) [...] mouth. Takes 2 tabs at bedtime Active oxyCODONE-Acetami nophen 5-325 MG Oral Tablet (Percocet) Take 1 Tablet by mouth every 4 hours as needed for Pain, Severe. 30 Tablet 01/28/2024 Active Promethazine HCl 12.5 MG Oral Tablet (Phenergan)Indica tions:Vascular dementia with agitation, unspecified dementia severity (HCC) Take 1 Tablet by mouth every 8 hours as needed for Nausea. 30 Tablet 11 01/28/2024 Active Hospital, Clinic, or Other Facility Administered Medication Ordered Dose Route Frequency Start Date End Date Status Vitamin B-12 (Cyanocobalamin) inj 1,000 mcgIndications:B12 deficiency 1000 mcg IM [id number] 01/28/2024 12/29/2024 Active documented as of this encounter (statuses [...] anemia 04/24/2017 Coronary artery disease invo lving cherokee heart without angina pectoris 04/18/2016 Incomplete tear of right rotator cuff 04/15/2016 Overview: 04/23 Dr Eduardo guerrero. Anxiety 09/28/2014 Diverticulitis of colon 09/16/2014 Intestinal postoperative nonabsorption 1 CALLAHAN RESEARCH OTHER*[id number] 09/14/2009 ADVANCE DIRECTIVE INFORMATION 01/21/2009 Overview: No, [...] S/p gastric bypass. Pain mgmt Dr Syed Asencio--[facility] +pain pump 02/22 EGD-Gastric bypass with [...] Tobacco use disorder 09/18/2009 011 Bariatric Proteinuria Research*[id number] 09/14/2009 12/27/2009 Organic sleep disorder 06/22/200910/10 Morbid obesity, BMI not known 06/22/2009 06/26/2010 Gout 05/08/2009 11/28/2014 History of tobacco use 05/08/200910/10 Sleep apnea 05/08/2009 06/22/2009 HTN, goal below 140/90 06/15/200809/28 JOINT DIS NOS-L-LEG 08/21/2004 12/10/20 19 HTN, goal below 140/90 09/22 Tobacco [...] 01/22/2024 Does the household have a re lar source of income? (Household - for ages [...] [place] [phone] Heather Franklin CRNP [address] [place] [address] 10/28/2024 11:40 AM EDT Office Visit Family [facility] [address] [place] [address] Charles Mayer DO [address] [place] [address] Pending Results Name Type Priority Associated Diagnoses Date /Time MYCODE SUBSEQUENT ADULT Lab Routine MyCode Research Other*[id number] 01/28/2024 11:34 AM EDT COPPER, SERUM OR PLASMA Lab Routine Vascular dementia with agitation, unspecified dementia severity (HCC) Encounter for long-term (current) use of medications 01/28/2024 11:34 AM EDT ZINC Lab Routine Encounter for long-term (current) use of medications 01/28/2024 11:34 AM EDT LIPID PANEL WITH DIRECT LDL IF TG IS HIGH Lab Routine Coronary artery disease involving cherokee coronary artery of cherokee heart without angina pectoris 01/28/2024 11:34 AM EDT COMPREHENSIVE METABOLIC PANEL Lab Routine Coronary artery disease involving cherokee coronary artery of cherokee heart without angina pectoris 01/28/2024 11:34 AM EDT URIC ACID Lab Routine Idiopathic gout, unspecified chronicity, unspecified site 01/28/2024 11:34 AM EDT VITAMIN B1 (THIAMINE), BLOOD, LC/MS/MS Lab Routine Vascular dementia with agitation, unspecified dementia severity (HCC) 01/28/2024 11:34 AM EDT MYCODE SST1 Lab Routine MyCode Research Other*[id number] 01/28/2024 11:34 AM EDT MYCODE SST2 Lab Routine MyCode Research Other*[id number] 01/28/2024 11:34 AM EDT Scheduled Procedures Name Priority Associated Diagnoses Date/Ti me ESOPHAGOGASTRODUODENOSCOPY ( EGD), FLEXIBLE, TRANSORAL, DIAGNOSTIC Recall Esophageal reflux Health Maintenance Due Date Last Done Comments Cologuard 2008 Fecal Occult Blood Test 2008 Sigmoidoscopy 2008 Zoster Vaccines (1 of 2) 2013 Colonoscopy 06/03/2018 06/03/2017, 06/03/2017 Colorectal Cancer Screening 06/03/2018 COVID-19 Vaccine ( season) 2023 09/11/2020, 08/14/2020 GFR 05/27/2024 11/25/2023, 10/06, 06/11/2023, Additional history exists Albumin/Creatinine Ratio 06/11/2024 06/12/2023, 06/2014 CKD HGB USE SMARTSET 42407 11/24/202411/24, 11/25/2023, 06/11/2023, Additional history exists CKD PHOS USE SMARTSET 61695 11/24/202411/06, 06/11/2023, 12/24/2019 Depression Screening 01/21/2025 01/22/2024 Diabetes Screening 11/24/2026 11/25/2023, 0 10/27/2023, 06/11/2023, Additional history exists DTap/Tdap Vaccines (5 - [...] as of this encounter Visit Diagnoses Diagnosis MyCode Research Other*[id number] Vascular dementia with agitation, unspecified dementia severity (HCC) Encounter for long-term (current) use of medications Encounter for long-term (current) use of other medications Coronary artery disease involving cherokee coronary artery of cherokee heart without angina pectoris Idiopathic gout, unspecified chronicity, unspecified site documented in this encounter Advance Directives Documents on File Type Date Recorded 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 Care Teams Weed Science Research Technician Relationship Specialty Start Date End Date Charles Mayer DO [address] [place] [address] PCP - General Family Medicine 05/26/23 documented as of this encounter
--- OUTSIDE RECORDS SUMMARY | 2024-01-31 21:27 | External Medical Summary | Summary of Care ---
Author Name Unknown Organization [facility] Address [address] [place] [address] Phone [phone] Care Team Providers Care Edge Stainer Name Role Phone Marsha Mayeradin [place]wn Primary Care Provider Reason for Visit * Reason Onset Date Comments Medication Refill 01/22/2024 Encounter Details Date Type Department Care Team (Late st Contact Info) Description 01/22/2024 Refill Family Practice [facility] [address] [place] [address] Annette Meadows, RN [address] [place] [address] Coronary artery disease involving tolowa dee-ni' coronary artery of tolowa dee-ni' heart without angina pectoris*; Stage 3a chronic [...] Date End Date Status MORPHINE 5 MG/ML CASH POSTING REPRESENTATIVE SQ INFUSION (AMBULATORY)Indic ations:MEDICATION USE AGREEMENT Dose [...] Oral Tablet (Remeron)Indicati ons:Coronary artery disease involving tolowa dee-ni' coronary artery of tolowa dee-ni' heart without angina pectoris,Stage 3a chronic kidney disease (HCC),Gastroesoph ageal reflux disease without esophagitis,Demen tia (HCC) Take 1 Tablet by mouth at bedtime. 90 Tablet 3 01/28/2024 Active OLANZapine 5 MG Oral Tablet (zyPREXA)Indicati ons:Coronary artery disease involving tolowa dee-ni' coronary artery of tolowa dee-ni' heart without angina pectoris,Stage 3a chronic kidney disease (HCC),Gastroesoph ageal reflux disease without esophagitis,Demen tia (HCC) Take 1 Tablet by mouth at bedtime. 90 Tablet 3 01/28/2024 Active traZODone HCl 50 MG Oral Tablet (Desyrel)Indicati ons:Coronary artery disease involving tolowa dee-ni' coronary artery of tolowa dee-ni' heart without angina pectoris,Stage 3a chronic kidney [...] anemia 04/24/2017 Coronary artery disease invo lving tolowa dee-ni' heart without angina pectoris 04/18/2016 Incomplete tear of right rotator cuff 04/15/2016 Overview: 04/23 Dr Eduardo guerrero. Anxiety 09/28/2014 Diverticulitis of colon 09/16/2014 Intestinal postoperative nonabsorption 1 CALLAHAN RESEARCH OTHER*[id number] 09/14/2009 ADVANCE DIRECTIVE INFORMATION 01/21/2009 Overview: No, [...] gastric bypass. Pain mgmt Dr Syed Asencio--[facility] +pain pump 02/22 EGD-Gastric bypass with [...] Tobacco use disorder 09/18/2009 011 Bariatric Proteinuria Research*[id number] 09/14/2009 12/27/2009 Organic sleep disorder 06/22/200910/10 Morbid [...] encounter Miscellaneous Notes * Telephone Encounter - Caren Julian OSA [...] trazadone and mirtazapine prescriptions as requested by Heather ALFARO below. Left message on voice mail for Alisha to call Heather's office directly to discuss these prescriptions for [...] AM EDT Record request faxed successfully to [phone]. * Telephone Encounter - Heather Franklin CRNP - 01/23/2024 10:42 AM EDT Caren, Can you please obtain most recent EKG from [facility] so I am able to review? Annette, [...] as needed for Nausea . Refused By: NIKHIL FLOR Reason for Refusal: Managed by another physician * Telephone Encounter - Annette Meadows RN - 01/23/2024 10:26 AM EDT is requesting 4 prescriptions be sent to [facility]. documented in this encounter Plan of Treatment Upcoming Encounters Date Type Department Care Team (Late st Contact Info) Description 04/15/2024 9:00 AM EST Office Visit Neurology [address] [place] [phone] Heather Franklin CRNP [address] [facility] [place] [address] 10/28/2024 11:40 AM EDT Office Visit [facility] [address] [facility] [place] [address] Charles Mayer DO [address] [place] [address] Scheduled Procedures Name Priority Associated Diagnoses Date/Ti [...] Additional history exists CKD HGB USE SMARTSET 65479 11/24/202411/24, 11/25/2023, 06/11/2023, Additional history exists CKD PHOS USE SMARTSET 59002 11/24/202411/06, 06/11/2023, 12/24/2019 Depression Screening 01/21/2025 01/22/2024 [...] Visit Diagnoses Diagnosis Coronary artery disease involving tolowa dee-ni' coronary artery of tolowa dee-ni' heart without angina pectoris- Primary Stage 3a chronic kidney disease Gastroesophageal reflux disease without esophagitis Esophageal reflux Dementia (HCC) Dementia, unspecified, without behavioral disturbance documented in this encounter Advance Directives Documents on File Type Date Recorded Patient Sky Line Yarder Expl 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 Care Teams Edge Stainer Relationship Specialty Start Date End Date Charles Mayer DO [address] [place] [address] PCP - General Family Medicine 05/26/23 documented as of this encounter
--- OUTSIDE RECORDS SUMMARY | 2024-01-31 21:27 | External Medical Summary ---
Author Name Unknown Address Unknown Organization [facility] [address] [place] [address] Laboratory Report Ordering Provider Test Date Status LUBNA MENDEZ 01/28/2024 11:34:11 Final Observation Date Value Abnormality Reference (Units ) Status BUN 01/28/2024 11:34:11 16 6-20 (mg/dL) Final Creatinine 01/28/2024 11:34:11 1.5 Above high normal 0.6-1.2 (mg/dL) Final Glomerular filtration rate/1.73 sq M.predicted [Volume Rate/Area] in Serum, Plasma or Blood by Creatinine-based formula (CKD-EPI) 01/28/2024 11:34:11 54 Below low normal >=60 (mL/min) Final eGFR is calculated based on the CKD-EPI 2020 equation. Sodium 01/28/2024 11:34:11 139 135-146 (m mol/L) Final Potassium 01/28/2024 11:34:11 4.1 3.5-5.1 (m mol/L) Final Cl 01/28/2024 11:34:11 98 98-107 (mm ol/L) Final CO2 01/28/2024 11:34:11 31 22-32 (mmo l/L) Final Anion gap 01/28/2024 11:34:11 10 7-15 (mmol /L) Final Glucose 01/28/2024 11:34:11 111 70-120 (mg /dL) Final Albumin 01/28/2024 11:34:11 4.1 3.8-5.0 (g /dL) Final AST (Aspartate aminotransferase) 01/28/2024 11:34:11 20 10-50 (U/L) Fin al Alk Phos 01/28/2024 11:34:11 181 Above high normal 35 -130 (U/L) Final Bilirubin, Total 01/28/2024 11:34:11 0.7 <=1 .2 (mg/dL) Final Calcium 01/28/2024 11:34:11 9.6 8.4-10.2 ( mg/dL) Final Protein 01/28/2024 11:34:11 6.4 6.0-8.3 (g /dL) Final ALT (Alanine aminotransferase) 01/28/2024 11:34:11 11 10-50 (U/L) Guillermo hylton Performing Location [facility] [address] [place] [address]
--- OUTSIDE RECORDS SUMMARY | 2024-01-31 21:27 | External Medical Summary | Summary of Care ---
Author Name Unknown Organization [facility] Address [address] [facility] [address] Phone [phone] Care Team Providers Care Skidway Man Name Role Phone Charles Mayer DO Primary Care Provider Reason for Visit * Reason Onset Date Comments Re-Check 6 mo check, B12 inj needed? labs needed? Immunizations 01/28/2024 Encounter Details Date Type Department Care Team (Late st Contact Info) Description 01/28/2024 10:20 AM EDT Office Visit Family Practice [facility] [address] [place] [address] Charles Mayer DO [address] [facility] [place] [address] Vascular dementia with agitation, unspecified dementia severity (HCC)*; Need for ynzcpwvusm-wvpnrrc-te rtussis (Tdap) vaccine; Coronary artery disease involving tatitlek coronary artery of tatitlek heart without angina pectoris; Stage 3a chronic kidney disease; Gastroesophageal reflux disease with esophagitis without hemorrhage; Encounter for long-term (current) use of medications; Idiopathic gout, unspecified chronicity, unspecified site; B12 deficiency Allergies Active Allergy Reactions Criticality Noted [...] Date End Date Status MORPHINE 5 MG/ML DELICATESSEN CLERK SQ INFUSION (AMBULATORY)Indic ations:MEDICATION USE AGREEMENT Dose [...] for Nausea. 30 Tablet 11 01/28/2024 Active promethazine (PHENERGAN) 12.5 MG Tablet TAKE 1 TABLET BY MOUTH EVERY 6 HOURS NEEDED FOR NAUSEA AND VOMITING 10/13/2019 4 Discontinue d(Refill) oxyCODONE-Acetami nophen 5-325 MG Oral Tablet (Percocet) Take 1 Tablet by mouth every 4 hours as needed for Pain, Severe. 1 Tablet 01/14/2024 4 Discontinue d(Refill) Hospital, Clinic, or Other Facility Administered Medication Ordered Dose Route Frequency Start Date End Date Status Vitamin B-12 (Cyanocobalamin) inj 1,000 mcgIndications:B12 deficiency 1000 mcg IM [id number] 01/28/2024 12/29/2024 Active documented as of this [...] anemia 04/24/2017 Coronary artery disease invo lving tatitlek heart without angina pectoris 04/18/2016 Incomplete tear of right rotator cuff 04/15/2016 Overview: 04/23 Dr Eduardo guerrero. Anxiety 09/28/2014 Diverticulitis of colon 09/16/2014 Intestinal postoperative nonabsorption 1 CALLAHAN RESEARCH OTHER*[id number] 09/14/2009 ADVANCE DIRECTIVE INFORMATION 01/21/2009 Overview: No, [...] S/p gastric bypass. Pain mgmt Dr Syed Asencio--[facility] +pain pump 02/22 EGD-Gastric bypass [...] Tobacco use disorder 09/18/2009 011 Bariatric Proteinuria Research*[id number] 09/14/2009 12/27/2009 Organic sleep disorder 06/22/200910/10 Morbid [...] Sign Reading Time Taken Comments Blood Pressure 104/64 01/28/2024 10:21 AM EDT Pulse 88 01/28/2024 10:21 AM EDT Temperature 36.2 C (97.2 F) 01/28/2024 10:21 AM E DT Respiratory Rate 16 01/28/2024 10:21 AM EDT Oxygen Saturation - - Inhaled Oxygen Concentration - - Weight 74.8 kg (165 lb) 01/28/2024 10:21 AM EDT Height - - Body Mass Index 22.38 01/14/2024 8:43 AM EDT documented in this encounter Patient Instructions * Patient Instructions* Shira Tejeda RN - 01/28/2024 10:25 AM EDT ~~PATIENT INSTRUCTIONS FOR TDAP VACCINE~~ Possible side effects of TDAP vaccine, (tetanus shot), are usually mild and can include: 1. Soreness or redness at injection site 2. Low grade fever 3. Body aches You may use a fever / pain reducing medication as needed for these symptoms. LET YOUR DOCTOR KNOW IMMEDIATELY IF YOU HAVE DIFFICULTY BREATHING OR SWALLOWING, EXPERIENCE ITCHINGOF FEET OR HANDS, HAVE SWELLING OF EYES, FACE OR INSIDE OF NOSE. documented in this encounter Progress Notes * Charles Mayer DO - 01/28/2024 10:48 AM EDT Images from the original note were not included. Assessment and Plan Assessment & Plan Dementia Early advanced stage with recent episode of agitation. No new recommendations from neurologist at this time, but ongoing monitoring and management will be helpful -Continue current management. Chronic Pain Morphine pump to be discontinued. Current oral pain management with Oxycodone 5mg BID and Percocet 325mg PRN. Patient reports increased pain. -Continue current pain management. -Refill Percocet 325mg PRN prescription. -Plan to take over pain management after discontinuation of morphine pump. Nicotine Dependence Patient has cravings but is abstinent. Currently on Nicotine patch 7mg. -Continue Nicotine patch 7mg. -Consider halving the patch for a month and then discontinuing. Alcohol Dependence Patient has cravings but is abstinent. -Continue current management. General Health Maintenance -Administer B12 and Tetanus vaccines today. History of Present Illness Kana Thomas is a 58 year old male that presents for Re-Check (6 mo check, B12 inj needed? labs needed?) and Immunizations History of Present Illness The patient, with a history of dementia, alcohol and nicotine dependence, and chronic pain, has been doing well overall, with a recent incident of agitation reported by the caregiver. The agitation occurred late in the evening, possibly due to tiredness and back pain. The patient's memory issues persist, but no significant changes have been noted. The patient's morphine pump, which was managing his chronic pain, is being weaned off, leading to increased pain. Physical Exam Vitals: 01/28/24 1021 Temp: 36.2 C (97.2 F) Pulse: 88 Resp: 16 BP: 104/64 Physical Exam Constitutional: Appearance: Normal appearance. HENT: Head: Normocephalic and atraumatic. Eyes: Extraocular Movements: Extraocular movements intact. Pupils: Pupils are equal, round, and reactive to light. Cardiovascular: Rate and Rhythm: Normal rate. Pulmonary: Effort: Pulmonary effort is normal. Neurological: Mental Status: He is alert. Mental status is at baseline. Wrap-Up Follow Up: Return in about 9 months (around 10/27/2024). Time: Total time today was 30 minutes excluding any time spent in the performance of separately billed services. Text in this note was generated using an ambient documentation service. I discussed the use of a device to record and summarize our discussion today. All persons present during the encounter consented to its use. * Shira Tejeda RN - 01/28/2024 10:25 AM EDT Immunization Administration Documentation Time Out Procedure Performed: Yes Patient Identified (Ask Name/Date of ): Yes Does the patient have a fever greater than 101 degrees today? No Patient allergic to latex? No VFC Stock: No Immunization(s) verified: Yes, Immunization Name: Tdap (Adacel) , VIS Sheet(s) given: Yes Verified Side and Site: Yes Verified Shot(s) with Parent(s)/Patient: Yes Tdap covered under Medicare Part D, prescription order pended for physician to sign. Shira Tejeda, RN documented in this encounter Plan of Treatment Upcoming Encounters Date Type Department Care Team (Late st Contact Info) Description 04/15/2024 9:00 AM EST Office Visit Neurology [address] [place] [phone] Heather Franklin CRNP [address] [facility] [place] [id number] 10/28/2024 11:40 AM EDT Office Visit Family Practice [facility] [address] [place] [address] Charles Mayer DO [address] [place] [address] Pending Results Name Type Priority Associated Diagnoses Date /Time COPPER, SERUM OR PLASMA Lab Routine Vascular dementia with agitation, unspecified dementia severity (HCC) Encounter for long-term (current) use of medications 01/28/2024 11:34 AM EDT ZINC Lab Routine Encounter for long-term (current) use of medications 01/28/2024 11:34 AM EDT LIPID PANEL WITH DIRECT LDL IF TG IS HIGH Lab Routine Coronary artery disease involving tatitlek coronary artery of tatitlek heart without angina pectoris 01/28/2024 11:34 AM EDT COMPREHENSIVE METABOLIC PANEL Lab Routine Coronary artery disease involving tatitlek coronary artery of tatitlek heart without angina pectoris 01/28/2024 11:34 AM EDT URIC ACID Lab Routine Idiopathic gout, unspecified chronicity, unspecified site 01/28/2024 11:34 AM EDT VITAMIN B1 (THIAMINE), BLOOD, LC/MS/MS Lab Routine Vascular dementia with agitation, unspecified dementia severity (HCC) 01/28/2024 11:34 AM EDT Scheduled Orders Name Type Priority Associated Diagnoses Orde r Schedule COPPER, SERUM OR PLASMA Lab Routine Vascular dementia with agitation, unspecified dementia severity (HCC) Encounter for long-term (current) use of medications Expected: 01/28/2024, Expires: 01/27/2025 ZINC Lab Routine Encounter for long-term (current) use of medications Expected: 01/28/2024 (Approximate), Expires: 01/27/2025 LIPID PANEL WITH DIRECT LDL IF TG IS HIGH Lab Routine Coronary artery disease involving tatitlek coronary artery of tatitlek heart without angina pectoris Expected: 01/28/2024, Expires: 01/27/2025 COMPREHENSIVE METABOLIC PANEL Lab Routine Coronary artery disease involving tatitlek coronary artery of tatitlek heart without angina pectoris Expected: 01/28/2024 (Approximate), Expires: 01/27/2025 URIC ACID Lab Routine Idiopathic gout, unspecified chronicity, unspecified site Expected: 01/28/2024 (Approximate), Expires: 01/27/2025 VITAMIN B1 (THIAMINE), BLOOD, LC/MS/MS Lab Routine Vascular dementia with agitation, unspecified dementia severity (HCC) Expected: 01/28/2024, Expires: 01/27/2025 Scheduled Procedures Name Priority Associated Diagnoses Date/Ti [...] 06/11/2024 06/12/2023, 06/2014 CKD HGB USE SMARTSET 72703 11/24/202411/244, 11/25/2023, 06/11/2023, Additional history exists CKD PHOS USE SMARTSET 11191 11/24/2024 08/2 , 06/11/2023, 12/24/2019 Depression Screening 01/21/2025 01/22/2024 Diabetes [...] as of this encounter Visit Diagnoses Diagnosis Vascular dementia with agitation, unspecified dementia severity (HCC)- Primary Need for dmuxsibues-wnhmght-uqpzvrmit (Tdap) vaccine Need for prophylactic vaccination with combined hfrxbenlgt-sqyzgnt-qwjfkwguu (DTP) vaccine Coronary artery disease involving tatitlek coronary artery of tatitlek heart without angina pectoris Stage 3a chronic kidney disease Gastroesophageal reflux disease with esophagitis without hemorrhage Encounter for long-term (current) use of medications Encounter for long-term (current) use of other medications Idiopathic gout, unspecified chronicity, unspecified site B12 deficiency Other B-complex deficiencies documented in this encounter Administered Medications Active Administered Medications - up to 3 most recent administrations Medication Order MAR Action Action Date Dose Rate Site Vitamin B-12 (Cyanocobalamin) inj 1,000 mcg 1,000 mcg, Intramuscular, [id number], First dose on Fri01/28/24 at 1200, Last dose on Fri12/01/24 at 1200, For 12 doses Given 01/28/2024 11:27 AM EDT 1,000 mcg Arm Right Upper documented in this encounter Advance Directives Documents on File Type Date Recorded Patient Social Economist Expl 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 Care Teams Skidway Man Relationship Specialty Start Date End Date Charles Mayer DO [address] [place] [address] PCP - General Family Medicine 05/26/23 documented as of this encounter
--- OUTSIDE RECORDS SUMMARY | 2024-01-31 21:28 | External Medical Summary | Summary of Care ---
Author Name Unknown Organization [facility] Address [address] [facility] [place] [address] Phone [phone] Care Team Providers Care Unit Control Clerk Name Role Phone Charles Mayer DO Primary Care Provider Encounter Details Date Type Department Care Team (Late st Contact Info) Description 01/02/2024 Population Health External Data Unspecified Department Allergies Active Allergy Reactions Criticality Noted Date [...] as of this encounter (statuses as of 01/02/2024) Medications Medication Sig Dispensed Refills Start Date End Date Status MORPHINE 5 MG/ML BUSINESS [employer] EXECUTIVE SQ INFUSION (AMBULATORY)Indic ations:MEDICATION USE AGREEMENT Dose [...] the morning. 100 Tablet 2 11/27/2023 Active documented as of this encounter (statuses as of 01/02/2024) Active Problems Problem Noted Date Diagnosed Date [...] anemia 04/24/2017 Coronary artery disease invo lving [place] [facility] without angina pectoris 04/18/2016 Incomplete tear of right rotator cuff 04/15/2016 Overview: 04/23 Dr Eduardo guerrero. Anxiety 09/28/2014 Diverticulitis of colon 09/16/2014 Intestinal postoperative nonabsorption 1 [facility] [employer]EARCH OTHER*[id number] 09/14/2009 ADVANCE DIRECTIVE INFORMATION 01/21/2009 Overview: No, Advance Directive brochure offered , patient declined. MEDICATION USE AGREEMENT 05/19/2008 Overview: See kim GERD (gastroesophageal reflux disease) Gout S/P gastric bypass S/P spinal fusion documented as of this encounter (statuses as of 01/02/2024) Resolved Problems Problem Noted Date Diagnosed Date Resolved Date Kidney disease, chronic, sta ge III (GFR 30-59 ml/min) 11/16/2018 02/17/2020 Overview: Per CKD protocol Well adult exam 04/18/2016 09/24/2018 Overview: ??Need eval hypoglycemia? S/p gastric bypass. Pain mgmt Dr Syed Asencio--[facility] +pain pump 02/22 EGD-Gastric bypass with [...] Tobacco use disorder 09/18/2009 011 Bariatric Proteinuria Research*[id number] 09/14/2009 12/27/2009 Organic sleep disorder 06/22/200910/10 Morbid obesity, BMI not known 06/22/2009 06/26/2010 Gout 05/08/2009 11/28/2014 History of tobacco use 05/08/200910/10 Sleep apnea 05/08/2009 06/22/2009 HTN, goal below 140/90 06/15/200809/28 JOINT DIS NOS-L-LEG 08/21/2004 03/16/20 19 HTN, goal below 140/90 09/22 Tobacco use disorder 017 Overview: smokeless 2cans per week documented as of this encounter (statuses as of 01/02/2024) Immunizations Name Administration Dates Next Due COVID-19 [...] IM 01/20/2018,01/17/2016,01/10/2015 Seasonal Influenza, Trivalen t, (IIV3), with Preserv, (Fluzone) 01/07/2014,01/14/2013,12/27/2011,12/06 TDAP (age 10 and older)(Boostrix) 07/15/2012 [...] Care Team (Late st Contact Info) Description 01/14/2024 9:00 AM EDT Office Visit Neurology [address] [place] [phone] Heather Farnklin CRNP [address] [facility] [place] [id number] 01/29/2024 9:40 AM EDT Office Visit Family Practice [facility] [address] [place] [address] Charles Mayer DO [address] [place] [id number] Scheduled Procedures Name Priority Associated Diagnoses Date/Ti me ESOPHAGOGASTRODUODENOSCOPY ( EGD), FLEXIBLE, TRANSORAL, DIAGNOSTIC Recall Esophageal reflux Health Maintenance Due Date Last Done Comments Cologuard 2008 Fecal Occult Blood Test 2008 Sigmoidoscopy 2008 Zoster Vaccines (1 of 2) 2013 Colonoscopy 06/03/2018 06/03/2017, 06/03/2017 Colorectal Cancer Screening 06/03/2018 DTap/Tdap Vaccines (4 - Td or Tdap) 11/08/2023 11/07/2013, 11/07/2013, 07/15/2012, Additional history exists COVID-19 Vaccine (3 - season) 2023 09/11/2020, 08/14/2020 Influenza Vaccine (FLU shot) (#1) 2023 06/24/2023, 12/27/2020, 12/27/2020, Additional history exists GFR 05/27/2024 11/25/2023, 10/06, 06/11/2023, Additional history exists Albumin/Creatinine Ratio 06/11/2024 06/12/2023, 06/06/2014 Depression Monitoring 11/16/2024 11/17/2023 CKD HGB USE SMARTSET 80879 11/24/202411/24, 11/25/2023, 06/11/2023, Additional history exists CKD PHOS USE SMARTSET 76756 11/24/202411/06, 06/11/2023, 12/24/2019 Diabetes Screening 11/24/2026 11/25/2023, 0 [...] Documents on File Type Date Recorded 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 Care Teams Unit Control Clerk Relationship Specialty Start Date End Date Charles Mayer DO [address] [facility] [place] [address] PCP - General Family Medicine 05/26/23 documented as of this encounter
--- OUTSIDE RECORDS SUMMARY | 2024-01-31 21:28 | External Medical Summary | Summary of Care ---
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 (HCC)*; Need for prophylactic vaccination and inoculation against influenza Allergies Active Allergy Reactions Criticality Noted Date [...] as of this encounter (statuses as of 01/14/2024) Medications Medication Sig Dispensed Refills Start Date End Date Status MORPHINE 5 MG/ML 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 30 Tablet 11 10/23/2023 Active Loratadine 10 MG Oral Capsule Take [...] the morning and 1 Tablet before bedtime. 01/14/2024 Active Docusate Sodium 100 MG Oral [...] Tablet by mouth at bedtime. 01/14/2024 Active OLANZapine 5 MG Oral Tablet (zyPREXA) Take 1 Tablet by mouth at bedtime. 01/14/2024 Active Thiamine HCl 100 MG Oral Tablet (vitamin B-1) Take 1 Tablet by mouth in the morning. 01/14/2024 Active oxyCODONE-Acetami nophen 5-325 MG Oral Tablet (Percocet) Take 1 Tablet by mouth every 4 hours as needed for Pain, Severe. 1 Tablet 01/14/2024 Active cyclobenzaprine (FLEXERIL) 10 MG Tablet Take 1 Tab by mouth 3 times a day as needed for Muscle spasms. 90 Tab 0 12/05/2014 4 Discontinue d(Refill) Colchicine 0.6 MG Oral Tablet TAKE 1 TABLET BY MOUTH TWICE A DAY 60 Tab 07/11/2020 4 Discontinue d(Medicatio n List Clean Up) Docusate Sodium 100 MG Oral Capsule (Colace) Take 1 Capsule by mouth in the morning and 1 Capsule before bedtime. 4 Discontinue d(Refill) Benefiber Oral Powder Take by mouth three times a day with meals. 4 Discontinue d(Medicatio n List Clean Up) Cyclobenzaprine HCl 10 MG Oral Tablet (Flexeril) take one and one-half tablets by mouth in the morning and one and one-half tablets in the evening and one and one-half tablets before bedtime. 405 Tablet 1 03/18/2023 4 Discontinue d(Medicatio n List Clean Up) Dicyclomine HCl 10 MG Oral Capsule (Bentyl) TAKE ONE CAPSULE BY MOUTH THREE TIMES A DAY IN THE MORNING, AT NOON, AND BEFORE BEDTIME 300 Capsule 3 10/21/2023 4 Discontinue d(Medicatio n List Clean Up) Mupirocin 2 % External Ointment (Bactroban)Indica tions:Skin lesion Apply topically to affected area 3 times a day for 14 days. Apply to affected area. 22 g 1 11/05/2023 4 Discontinue d(Medicatio n List Clean Up) metroNIDAZOLE 500 MG Oral Tablet Take 1 Tablet by mouth in the morning and 1 Tablet at noon and 1 Tablet before bedtime. 4 Discontinue d(Medicatio n List Clean Up) QUEtiapine Fumarate 25 MG Oral Tablet (SEROquel) Take 1 tablet by mouth at bedtime for 2 weeks then increase to 1 tablet by mouth twice daily. 180 Tablet 3 11/25/2023 4 Discontinue d(Medicatio n List Clean Up) Vitamin B-12 500 MCG Oral Tablet (vitamin B-12) Take 1 Tablet by mouth in the morning. In the morning.. 11/14/2023 4 Discontinue d(Medicatio n List Clean Up) Mirtazapine 7.5 MG Oral Tablet (Remeron) Take 1 Tablet by mouth at bedtime. 01/02/2024 4 Discontinue d(Medicatio n List Clean Up) Melatonin 3 MG Oral Tablet Take 1 Tablet by mouth at bedtime. 12/30/2023 4 Discontinue d(Medicatio n List Clean Up) Nicotine 7 MG/24HR Transdermal Patch 24 Hour (Nicoderm CQ) Place 1 Patch topically on the skin daily. 12/30/2023 4 Discontinue d(Medicatio n List Clean Up) OLANZapine 5 MG Oral Tablet (zyPREXA) Take 1 Tablet by mouth at bedtime. 12/30/2023 4 Discontinue d(Medicatio n List Clean Up) traZODone HCl 50 MG Oral Tablet (Desyrel) Take 1 Tablet by mouth as needed. 01/02/2024 4 Discontinue d(Medicatio n List Clean Up) documented as of this encounter (statuses as of 01/14/2024) Active Problems Problem Noted Date Diagnosed Date [...] anemia 04/24/2017 Coronary artery disease invo lving [place] heart without angina pectoris 04/18/2016 Incomplete tear of right rotator cuff 04/15/2016 Overview: 04/23 Dr Eduardo guerrero. Anxiety 09/28/2014 Diverticulitis of colon 09/16/2014 Intestinal postoperative nonabsorption 1 CALLAHAN RESEARCH OTHER*[id number] 09/14/2009 ADVANCE DIRECTIVE INFORMATION 01/21/2009 Overview: No, Advance Directive brochure offered , patient declined. MEDICATION USE AGREEMENT 05/19/2008 Overview: See kim GERD (gastroesophageal reflux disease) Gout S/P gastric bypass S/P spinal fusion documented as of this encounter (statuses as of 01/14/2024) Resolved Problems Problem Noted Date Diagnosed Date Resolved Date Kidney disease, chronic, sta ge III (GFR 30-59 ml/min) 11/16/2018 02/17/2020 Overview: Per CKD protocol Well adult exam 04/18/2016 09/24/2018 Overview: ??Need eval hypoglycemia? S/p gastric bypass. Pain mgmt Dr Syed Asencio--[facility] +pain pump 02/22 EGD-Gastric bypass with a [...] Tobacco use disorder 09/18/2009 011 Bariatric Proteinuria Research*[id number] 09/14/2009 12/27/2009 Organic sleep disorder 06/22/200910/10 Morbid obesity, BMI not known 06/22/2009 06/26/2010 Gout 05/08/2009 11/28/2014 History of tobacco use 05/08/200910/10 Sleep apnea 05/08/2009 06/22/2009 HTN, goal below 140/90 06/15/200809/28 JOINT DIS NOS-L-LEG 08/21/2004 03/16/20 19 HTN, goal below 140/90 09/22 Tobacco use disorder 017 Overview: smokeless 2cans per week documented as of this encounter (statuses as of 01/14/2024) Immunizations Name Administration Dates Next Due COVID-19 [...] Exposure: Never Smokeless Tobacco: Former Snuff, Chew Tobacco Cessation:Counseling Given: Not Answered Comments:quit 12/2015. 1 can [...] Sign Reading Time Taken Comments Blood Pressure 126/73 01/14/2024 8:43 AM EDT Pulse 106 01/14/2024 8:43 AM EDT Temperature 36.6 C (97.8 F) 01/14/2024 8:43 AM ED T Respiratory Rate - - Oxygen Saturation 100% 01/14/2024 8:43 AM EDT Inhaled Oxygen Concentration - - Weight 77 kg (169 lb 12.8 oz) 01/14/2024 8:43 AM EDT Height 182.9 cm (6') 01/14/2024 8:43 AM EDT Body Mass Index 23.03 01/14/2024 8:43 AM EDT documented in this encounter Patient Instructions * Patient Instructions* Heather Franklin CRNP - 01/14/2024 9:10 AM EDT Please double check medication list to ensure his medication list is accurate and review this with his comp field case manager. She can contact me if there are any changes to medication list. Continue memantine 10 mg twice a day as ordered. 3. Please avoid Alcohol intake as this can worsen confusion and increase agitation, hallucinations,delusions and paranoia. 4. Please discuss with PCP at upcoming appointment lab work to check a repeat Folic acid level. Sundowning Late afternoon and early evening can be difficult for some people with dementia. They may experience sundowning--restlessness, agitation, irritability, or confusion that can begin or worsen as daylight begins to fade--often just when tired caregivers need a break. Sundowning can continue into the night, making it hard for people with Dementia to fall asleep and stay in bed. As a result, they and their caregivers may have trouble getting enough sleep and functioning well during the day. Possible Causes The causes of sundowning are not well understood. One possibility is that dementia related brain changes can affect a persons biological clock, leading to confused sleep-wake cycles. This may result in agitation and other sundowning behaviors. Other possible causes of sundowning include: being overly tired unmet needs such as hunger or thirst depression pain boredom Coping with Sundowning Look for signs of sundowning in the late afternoon and early evening. These signs may include increased confusion or anxiety and behaviors such as pacing, wandering, or yelling. If you can, try to find the cause of the persons behavior. If the person with Alzheimers becomes agitated, listen calmly to his or her concerns and frustrations. Try to reassure the person that everything is OK and distract him or her from stressful or upsetting events. You can also try these tips: Reduce noise, clutter, or the number of people in the room. Try to distract the person with a favorite snack, object, or activity. For example, offer a drink, suggest a simple task like folding towels, or turn on a familiar TV show (but not the news or other shows that might be upsetting). Make early evening a quiet time of day. You might play soothing music, read, or go for a walk. You could also have a family member or friend call during this time. Close the curtains or blinds at dusk to minimize shadows and the confusion they may cause. Turn on lights to help minimize shadows. Preventing Sundowning Being too tired can increase late afternoon and early-evening restlessness. Try to avoid this situation by helping the person: go outside or at least sit by the window--exposure to bright light can help reset the persons body clock get physical activity or exercise each day get daytime rest if needed, but keep naps short and not too late in the day get enough rest at night Avoid things that seem to make sundowning worse: Do not serve coffee, cola, or other drinks with caffeine late in the day. Do not serve alcoholic drinks. They may add to confusion and anxiety. Do not plan too many activities during the day. A full schedule can be tiring. If Problems Persist If sundowning continues to be a problem, seek medical advice. A medical exam may identify the causeof sundowning, such as pain, a sleep disorder or other illness, or a medication side effect. If medication is prescribed to help the person to relax and sleep better at night, be sure to find out about possible side effects. Some medications can increase the chances of dizziness, falls, and confusion. Doctors recommend using them only for short periods of time. For more caregiving tips and other resources: Read Caring for a Person with Alzheimers Disease: www.aguila.nih.gov/alzheimers/publication/ nmjlef-yvgxth-jixbhpbrcw-disease Visit www.aguila.nih.gov/alzheimers/topics/caregiving Call the [facility] toll-free: The Alzheimers disease Education and Referral (ADEAR) Center is a service of the National [place] [employer] Aging part of NIH Http://www.aguila.nih.gov/alzheimers/topics/caregiving - Many of the resources on this site are available to your Sánchez or eReader documented in this encounter Progress Notes * Andra Gonzales CMA - 01/14/2024 10:03 AM EDT PRE - ADMINISTRATION DOCUMENTATION Are you experiencing any cold symptoms or fever? No Have you had Guillain-Deep Water Syndrome (an illness that causes paralysis) within the last 6 weeks? No Have you had the flu shot in the past? YES Have you ever had a reaction to the flu shot? No Andra Gonzales CMA, 01/14/2024 10:03 AM Immunization Administration Documentation Time Out Procedure Performed: Yes Patient Identified (Ask Name/Date of ): Yes Does the patient have a fever greater than 101 degrees today? No Patient allergic to latex? No VFC Stock: No Immunization(s) verified: Yes, Immunization Name: Flu, VIS Sheet(s) given: Yes Verified Side and Site: Yes Verified Shot(s) with Parent(s)/Patient: Yes Andra Gonzales CMA * Heather Franklin CRNP - 01/14/2024 8:53 AM EDT Images from the original note were not included. [facility] Memory and Cognition Program Return Visit Patient: Kana Thomas Visit date: 01/14/2024 I last saw the patient on 06/24/2023. He is accompanied by his Sugey . HISTORY OF PRESENT ILLNESS Mr. Kana Thomas is a 58 year old right-handed male with 11 years of education presenting for follow up for moderate to severe dementia (likely Alzheimer's pathology given rapid forgetting) superimposed remote TBI, with contribution from chronic pain and medication side effects (oxycodone- acetaminophen and Flexeril), alcohol use, low B12 and folate deficiency. He is no longer onlorazepam. He has a history significant for anxiety, obesity s/p gastric bypass, coronary artery disease, GI bleed from gastric bypass, iron deficiency anemia, pulmonary nodule, CKD stage 3, CALLAHAN cirrhosis, chronic pain and s/p spinal fusion. Seen by Dr. Hampton for new patient appointment on 06/24/2023, per her note: TBI with skull fracture at work in 2003 with subsequent slow progressive memory decline that significantly worsened in late 2022 early 2023. Now, he needs help with putting his pants on time his shoes rated him as moderate dementia level of functioning. NPI-Q was newman-positive with scores 33 and 33. He has a VH where he sees people, but family just go along with it. Has delusions (e.g. House is not his own, and at his of 37 years to him). He is impulsive depressed, apathetic, anxious, and has mood swings. Appetite is down, weight loss. Previous Cognitive Testin06/24/2023 MMSE 01/[address] Hampton's plan from the last visit was: PLAN 1. Severe late onset dementia with psychotic disturbance, likely etiology Alzheimer's dementia - has history of GI bleed, therefore cholinesterase inhibitors are contraindicated. May consider memantine. Information provided and discussed. It can also help lessen psychiatric symptoms. - ADULT/PEDS NEUROPSYCHOLOGY REFERRAL OP for social science analyst referral to Ms. Cortes - The following resources were provided: Hand out on Understanding behavior changes in dementia, planning for the future, local corporate associate attorney group the can assist with long-term care planning. - family already using appropriate measures with the psychotic symptoms, such as not arguing and going along with it. - given the severity of his back pain, likely will remain on morphine pump and place her on indefinitely. Avoid other cognitively impairing medications like benzodiazepines, barbiturates, anticholinergics, antihistamines, etc. - to establish POA and will share paperwork with Rafaela. 2. Low serum vitamin B12 3. Folic acid deficiency - PCP to manage, has appointment coming up. Repeat labs in about 3 months. 4. Alcohol use - highly encouraged to cut back. Patient likely does not remember he already drink. Advised topoor beer and small glasses and space it out. 5. Chronic nausea - ADULT GASTROENTEROLOGY REFERRAL OP 6. Need for prophylactic vaccination and inoculation against influenza - INFLUENZA VACC, QUAD, PF, 6 MONTHS & UP, 0.5 ML, IM Interval history: [X] Has POA and living will on file in his chart []Folate level- hasn't had repeat folate level yet. He has follow-up with PCP on 01/27/2023 and will discuss this lab work at that time. [X] referral to sarah beth cortes. Patient has been seeing a social science analyst through his PCP office who is now managing his care. [x]GI [id number] with Dr. Wetzel in GI Since last visit with Dr. Hampton, patient had a number of ER visits and hospitalizations at [facility]. He had a numerous ER visit was for falls with head injury, altered mental status, cough and abdominal pain/nausea Admitted to [facility] from 11/08 through 11/14/2023. Per discharge summary: Admitted to [facility] from 11/30/2023 until 12/30/2023 Per Discharge summary: Was discharged to [facility] after hospitalization where he was until about a week ago. decided she wanted to try to bring him home one more time and care for him at home. [facility] recommended that patient stay there for care, but wanted to take him home. states that he's been doing well since he's been home. She did not bring his medications with her today and she's not sure of what medications she's on and what doses. Doesn't think there were any changes made to medications that he was discharged on from most recent hospitalization at [facility]. Attempted to review medication list. Spouse states he is taking Trazodone 50 mg at bedtime (which was not on discharge medications from [facility]). Agitation and behavior has improved since recent hospitalization. They have removed all guns and knives from the home. Patient is supervised at all times and not left alone. is is primary caregiver. Pain medicine specialist in [place] for management of morphine pump. They are in the process of waning him off of Morphine due to his worsening dementia. They have transitioned him to oxycodone-acetaminophen 5/325 mg 1 tablet every 4 hours as needed. He's been taking it twice daily for the last week. ED visits or hospitalizations? Yes, see above. New diagnosis? No Medication changes? Yes Falls? Yes see above ADL and IADLs: FUNCTIONAL ASSESSMENT: From caregiver/family Comments Raiza iADLs Using the Telephone impaired Shopping impaired Food preparation impaired Housekeeping impaired Laundry impaired Transportation impaired Medication management impaired Finances impaired Dickerson ADLs: Bathing impaired Dressing impaired Toileting intact Transferring (bed to chair) intact Continence intact Feeding intact Keeping track of calendars/appointments impaired QDRS 8 cognitive 14 behavioral 22 total NPI-Q 19 severity 34 caregiver distress Raiza iADLs 05/15 Dickerson ADLs 07/11 Cognition: continues to decline Appetite and weight: has good days and bad days. Was doing nutritional protein drink in the hospital, but he didn't like them. He's eating better now that he's home. Sleep: sleeping well with melatonin and trazodone. Doesn't wake up as frequently as he was before. Does take cat naps during the day. Mood: has improved with medication changes. Psychiatric and behavior symptoms: Hallucinations: + more management since recent hospitalization and medication adjustments. Thinks he's taking Olanzapine 5 mg at bedtime, but she's not sure. Delusions: + Paranoia: + OBJECTIVE Medical history, surgical history, social history, allergies and medications updated . Past Medical History: Diagnosis Date Coronary artery disease involving [place] heart without angina pectoris 04/18/2016 Displacement of lumbar intervertebral disc without myelopathy GERD (gastroesophageal reflux disease) Gout History of head injury without skull fracture 09/24/2018 History of trauma to spine 09/24/2018 HTN, goal below 140/90 Incomplete tear of right rotator cuff 04/15/201604/23 Dr Eduardo guerrero. Iron deficiency anemia 04/24/2017 Right upper lobe pulmonary nodule 01/21/2019 S/P gastric bypass S/P spinal fusion Tobacco use disorder smokeless 2cans per week Past Surgical History: Procedure Laterality Date AMPUTATION OF FINGER/THUMB 2001 Amputation Finger/Thumb- Left 2nd finger COLONOSCOPY, DIAGNOSTIC (RECTUM) 06/03/2017 adenomatous polyp, fair prep, repeat 1 yr/COLONOSCOPY FLEXIBLE PROXIMAL DIAGNOSTIC performed by Yadira Dasilva DO at ENDOSCOPY [facility] EGD, FLEXIBLE, DIAGNOSTIC 07/19/2010 UPPER GI ENDOSCOPY DIAGNOSTIC performed by RADHA ARREOLA at [facility] EGD, FLEXIBLE, DIAGNOSTIC 09/10/2011 NORMAL BXS EGD, FLEXIBLE, DIAGNOSTIC 10/11/2011 UPPER GI ENDOSCOPY DIAGNOSTIC performed by Fern Wetzel MD at [facility]COPY [facility] EGD, FLEXIBLE, DIAGNOSTIC 08/31/2014 gastritis w/ intestinal metaplasia/[facility] EGD, FLEXIBLE, DIAGNOSTIC 01/23/2018 gastric ulcerations/[facility] EGD, FLEXIBLE, DIAGNOSTIC 03/17/2018 healed ulcer/ESOPHAGOGASTRODUODENOSCOPY (EGD), FLEXIBLE, TRANSORAL, DIAGNOSTIC performed by Jose F Wolff MD at ENDOSCOPY [facility] EGD, FLEXIBLE, DIAGNOSTIC 01/21/2018 gastric ulcer / INPT [facility] EGD, FLEXIBLE, DIAGNOSTIC 10/27/2023 ESOPHAGOGASTRODUODENOSCOPY (EGD), FLEXIBLE, TRANSORAL, DIAGNOSTIC performed by Kimberlee Wetzel MD at ENDOSCOPY [facility] EXPLORATION OF ABDOMEN 08/02/2010 EXPLORATORY LAPAROTOMY performed by RADHA ARREOLA at [facility] FRACTURE NOS 1993 L wrist FRACTURE NOS 2003 R ankle FRACTURE NOS 2007 7 skull fractures 3 back fractures, crushed ankle from work injury FRAGMENT KIDNEY STONE BY SHOCK WAVE 11-29-2011 ESWL (Extracorporeal Shock Wave Lithotripsy) FRAGMENT KIDNEY STONE BY SHOCK WAVE 02-07-2012 ESWL (Extracorporeal Shock Wave Lithotripsy) LAPAROSCOPE PROCEDURE, LIVER 07/19/2010 UNLISTED LAPAROSCOPIC PROCEDURE LIVER performed by RADHA ARREOLA at [facility] LAPAROSCOPIC GASTRIC BYPASS/JACKIE-EN-Y 07/19/2010 LAPAROSCOPIC GASTRIC RESTRICTIVE BYPASS JACKIE EN Y performed by RADHA ARREOLA at [facility] LAPAROSCOPY DIAGNOSTIC 08/02/2010 LAPAROSCOPY DIAGNOSTIC performed by RADHA ARREOLA at [facility] LAPAROSCOPY, CHOLECYSTECTOMY WITH CHOLANGIOGRAPHY 02/13/2011 LAPAROSCOPIC CHOLECYSTECTOMY WITH CHOLANGIOGRAM performed by RADHA ARREOLA at [facility] MISCELLANEOUS ORDER (HS ONLY) 01/31/2009 Dr Clayton, [facility] REMOVAL OF APPENDIX 1974 Appendectomy REPAIR INITIAL INGUINAL HERNIA REDUCIBLE AGE 5 OR MORE Left 11/01/2015 REPAIR INITIAL INGUINAL HERNIA REDUCIBLE AGE 5 OR MORE performed by Wilfredo Blevins MD at [facility] REPAIR OF KNEE LIGAMENT/CAPSULE 2004 Knee Repair Cruciate Ligament SPINAL FUSION, 6 OR LESS VERT, POST 03/2010 Dr. 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 1 can to regular tobacco to 2 cans of non nicotine which will last a few days or more Vaping Use Vaping status: Never Used Substance and Sexual Activity Alcohol use: Not Currently Comment: Occasionally Drug use: No Sexual activity: Not on file Comment: . 2 children, 1 granddaughter. Other Topics Concern Not on file Social History Narrative Likes buildling guns. [place]/fish in past Social Determinants of Health Financial Resource Strain: Low Risk (11/17/2023) Financial Resource Strain Do you have any trouble paying for your medications, or do you think you might in the future? (Adult - for ages 18 years and over): No Does your family have trouble paying for medicine? (Household - for ages 0-17 years): Not on file Food Insecurity: No Food Insecurity (11/17/2023) Food Insecurity Do you need food for this week? (Adult - for ages 18 years and over): No Are you able to get enough food for your family? (Household - for ages 0-17 years): Not on file Does your family need food this week? (Household - for ages 0-17 years): Not on file Do you always have enough food for your family? (Household - for ages 0-17 years): Not on file Transportation Needs: No Transportation Needs (11/17/2023) Transportation Needs Do you have trouble getting a ride to medical visits or work? (Adult - for ages 18 years and over):Never True Does your family have a hard time getting a ride to doctors visits? (Household - for ages 0-17 years): Not on file Has lack of transportation kept you from medical appointments, meetings, work, or from getting things needed for daily living? Check all that apply. (Adult - for ages 18 years and over): No Do you (or your family) have trouble finding or paying for a ride (transportation)? (Household - for ages 0-17 years): Not on file Social Connections: Socially Integrated (11/17/2023) Social Connections How often do you feel lonely or isolated from those around you? (Adult - for ages 18 years and over): Sometimes Housing Stability: Low Risk (11/17/2023) Housing Stability Do you currently live in a fpc or have no steady place to sleep at night? (Adult - for ages 18 years and over): No Do you think you are at risk of becoming homeless? (Adult - for ages 18 years and over): No Does your family worry about paying for your home or becoming homeless? (Household - for ages 0-17 years): Not on file Are you homeless or worried that you might be in the future? (Adult - for ages 18 years and over): No Are you (or your family) homeless or worried that you might be in the future? (Household - for ages0-17 years): Not on file Family History Problem Relation Name Age of Onset Diabetes Mother Diabetes Father Hypertension Mother Hypertension Father Heart Disorder Mother Review of patient's allergies indicates: Allergen Reactions Erythromycin Base Other Reaction(s): Itching Fentanyl Other reaction(s): "DID NOT TOLERATE"-patch- "went nuts" Ibuprofen Other reaction(s): per md d/t ulcer history Indomethacin Other reaction(s): HIVES Aspirin Other reaction(s): "BLEEDING" S/P GASTRIC BYPASS Indocin [Indomethacin] Neomycin blisters Other - Drugs "mycins" itching Pcn [Penicillins] edema and rash as a teen he had an injection in his arm and the arm swelled. No hives no throat swelling. Tolerated ancef october 2018 no problem Ketorolac Other reaction(s): NAUSEA Vancomycin Other reaction(s): UNKNOWN REACTION Current Outpatient Medications Medication Sig Dispense Refill Allopurinol 300 MG Oral Tablet (Zyloprim) TAKE ONE TABLET BY MOUTH EVERY DAY 100 Tablet 1 Atorvastatin Calcium 10 MG Oral Tablet (Lipitor) Take 1 Tablet by mouth in the morning. 100 Tablet 2 Copper Caps 2 MG Oral Capsule (copper gluconate) Take 8 mg of elemental copper each day orally for a week, 6 mg for the second week, 4 mg for the third week, and 2 mg thereafter 180 Capsule 3 Cyanocobalamin 1000 MCG/ML Injection Kit Inject 1,000 mcg into a large muscle every 30 days. Cyclobenzaprine HCl 10 MG Oral Tablet Take 1 Tablet by mouth in the morning and 1 Tablet before bedtime. Docusate Sodium 100 MG Oral Capsule (Colace) Take 2 Capsules by mouth in the morning and 2 Capsulesbefore bedtime. Famotidine 40 MG Oral Tablet (Pepcid) Take 1 Tablet by mouth in the morning. 30 Tablet 11 Folic Acid 1 MG Oral Tablet Take 1 Tablet by mouth in the morning. Loratadine 10 MG Oral Capsule Take 1 Capsule by mouth in the morning. LORazepam 1 MG Oral Tablet (Ativan) Take 1 Tablet by mouth every 8 hours as needed for Anxiety. 1 Tablet 0 Melatonin 10 MG Oral Tablet Take 1 Tablet by mouth at bedtime. Memantine HCl 10 MG Oral Tablet (Namenda) Take 1 Tablet by mouth in the morning and 1 Tablet beforebedtime. 180 Tablet 3 Mirtazapine 15 MG Oral Tablet (Remeron) Take 1 Tablet by mouth at bedtime. MORPHINE 5 MG/ML NEWS WIRE PHOTO OPERATOR SQ INFUSION (AMBULATORY) Dose morphine per Pain management 1 Bolus Dosing Unit5 OLANZapine 5 MG Oral Tablet (zyPREXA) Take 1 Tablet by mouth at bedtime. oxyCODONE-Acetaminophen 5-325 MG Oral Tablet (Percocet) Take 1 Tablet by mouth every 4 hours as needed for Pain, Severe. 1 Tablet 0 Pantoprazole Sodium 40 MG Oral Tablet Delayed Release (Protonix) TAKE ONE TABLET BY MOUTH TWICE A DAY - MORNING AND BEFORE BEDTIME 200 Tablet 1 promethazine (PHENERGAN) 12.5 MG Tablet TAKE 1 TABLET BY MOUTH EVERY 6 HOURS NEEDED FOR NAUSEA AND VOMITING Thiamine HCl 100 MG Oral Tablet (vitamin B-1) Take 1 Tablet by mouth in the morning. traZODone HCl 50 MG Oral Tablet (Desyrel) Take 1 Tablet by mouth at bedtime. Zinc Acetate 50 MG Oral Capsule Take 1 Capsule by mouth daily. No current facility-administered medications for this visit. LABS: Results for orders placed or performed in visit on 11/25/23 CBC Result Value Ref Range WBC 6.48 4.00 - 10.80 K/uL RBC 3.51 4.50 - 5.25 M/uL HGB 11.3 (L) 14.0 - 16.8 g/dL HCT 34.5 (L) 40.0 - 48.4 % MCV 98.3 82.0 - 99.5 fL MCH 32.2 27.0 - 34.0 pg MCHC 32.8 32.0 - 36.0 g/dL RDW 13.0 11.5 - 15.5 % PLT 314 140 - 400 K/uL MPV 9.1 6.6 - 11.1 fL Results for orders placed or performed in visit on 01/04/19 BASIC METAB PANEL, BMP Result Value Ref Range BUN 17 6 - 20 mg/dL CREATININE 1.5 (H) 0.6 - 1.2 mg/dL EGFR 50.0 (L) >60 SODIUM 141 135 - 146 mmol/L POTASSIUM 4.8 3.5 - 5.1 mmol/L CHLORIDE 101 98 - 107 mmol/L CO2 26 22 - 32 mmol/L ANION GAP 14 7 - 15 mmol/L GLUCOSE 99 70 - 120 mg/dL CALCIUM 10.2 8.4 - 10.2 mg/dL Results for orders placed or performed in visit on 06/11/23 LIPID PANEL WITH DIRECT LDL IF TG IS HIGH Result Value Ref Range Triglycerides 62 <=174 mg/dL Cholesterol 159 <200 mg/dL HDL Cholesterol 112 >39 mg/dL Non-HDL Cholesterol 47 <=159 mg/dL LDL Cholesterol 35 <=129 mg/dL Lab Results Component Value Date/Time HEMOGLOBIN A1C - [facility] 5.3 12/29/2018 09:39 AM HEMOGLOBIN A1C - [facility] 5.4 10/10/2015 10:18 AM HEMOGLOBIN A1C - [facility] 5.4 05/17/2014 10:49 AM Lab Results Component Value Date/Time TSH - [facility] 1.42 08/14/2020 09:23 AM TSH - [facility] 1.73 12/29/2018 09:39 AM TSH - [facility] 2.10 09/24/2018 11:26 AM TSH - [facility] 3.47 09/18/2009 08:06 AM Antinuclear Antibody Pattern, IFA Date Value Ref Range Status 06/19/2005 SPECKLED AND NUCLEOLAR PATTERN Final Antinuclear Antibody Titer, IFA Date Value Ref Range Status 06/19/2005 160 (H) <40 TITER Final Hepatitis C Antibody Date Value Ref Range Status 04/18/2016 NEGATIVE NEG Final No results found for: "LYME" No results found for: "RPR" No results found for: "FTA-ABS" No results found for: "VDRL" Results for orders placed or performed in visit on 06/11/23 VITAMIN B12 Result Value Ref Range Vitamin B12 271 232 - 1,245 pg/mL Results for orders placed or performed in visit on 08/14/20 FOLIC ACID Result Value Ref Range Folic Acid 2.4 (L) >4.5 ng/mL No results found for: "[id number]" No results found for: "[id number]" No results found for: "[id number]" 25OH VITAMIN D TOTAL (ng/mL) Date Value 11/09/2018 47 04/24/2017 33 04/18/2016 25 Vitamin D Level Interpretation deficient: <20 ng/ml insufficient: 20-30 ng/ml normal: 31-100 ng/ml IMAGING STUDIES: Patient had CT imaging of brain during ER visits and hospitalizations at [facility] with showed no acute abnormality. I do not have these images for review. PHYSICAL EXAM Vital signs: BP 126/73 (BP Site: Left Arm, BP Position: Sitting, BP Cuff Size: Regular) | Pulse 106| Temp 36.6 C (97.8 F) (Tympanic) | Ht 1.829 m (6') | Wt 77 kg (169 lb 12.8 oz) | SpO2 100% | BMI 23.03 kg/m | BSA 1.98 m General: Well nourished. Appears as stated age. No acute distress. HEENT: normocephalic, atraumatic. Oral mucosa pink and moist. Neurologic exam Mental status: awake and alert Mini Mental State Exam Question: Answer: Patient is oriented to the year, season, date, day, month? 0 out of 5 (01/14/24899) Patient is oriented to the state, country, town, hospital/clinic, floor? 0 out of 5 (01/14/24899) Patient repeated three words (ex: ball, flag, tree) 3 out of 3 (01/14/24899) Patient counted backwards from 100 by 7's (93, 86, 79, 72, 65) or spelled WORLD backwards (D, L, R,O W) 0 out of 5 (01/14/24899) Patient recalled the three words previously asked (ball, flag, tree) 1 out of 3 (01/14/24899) Patient is able to identify a watch and pencil 1 out of 2 (01/14/24899) Patient is able to repeat "No ifs, ands or buts" 1 out of 1 (01/14/24899) Patient is able to take a piece of paper, fold in half and place on the floor 3 out of 3 (01/14/24899) Patient is able to read and follow directions (show patient card reading "close your eyes") 1 out of 1 (01/14/24899) Patient is able to write a sentence 0 out of 1 (01/14/24899) Patient is able to copy a drawing of intersecting pentagons 0 out of 1 (01/14/24899) Score 10 (01/14/24899) Comments (not recorded) Unable to complete full neurological exam due to time constraints of appointment. ASSESSMENT & PLAN Kana Thomas is a 58 year old right-handed male with 11 years of education presenting for follow up for moderate to severe dementia (likely Alzheimer's pathology given rapid forgetting) superimposed remote TBI, with contribution from chronic pain and medication side effects (oxycodone- acetaminophen and Flexeril), alcohol use, low B12 and folate deficiency. He is no longer on lorazepam. He has a history significant for anxiety, obesity s/p gastric bypass, coronary artery disease, GI bleed from gastric bypass, iron deficiency anemia, pulmonary nodule, CKD stage 3, CALLAHAN cirrhosis, chronic pain and s/p spinal fusion. Seen by Dr. Hampton for new patient appointment on 06/24/2023, per her note: TBI with skull fracture at work in 2003 with subsequent slow progressive memory decline that significantly worsened in late 2022 early 2023. Now, he needs help with putting his pants on time his shoes rated him as moderate dementia level of functioning. NPI-Q was newman-positive with scores 33 and 33. He has a VH where he sees people, but family just go along with it. Has delusions (e.g. House is not his own, and at his of 37 years to him). He is impulsive depressed, apathetic, anxious, and has mood swings. Appetite is down, weight loss. Since last visit, patient established POA and living will and it is now on file. Hasn't had repeat Folic Acid level. He has upcoming follow-up appointment with PCP and plans to discuss having this lab work repeated. Since last visit with Dr. Hampton, patient had a number of ER visits and hospitalizations at [facility]. He had a numerous ER visits for falls with head injury, altered mental status, cough and abdominal pain/nausea Admitted to [facility] from 11/30/2023 until 12/30/2023 for worsening confusion, agitation and psychotic symptoms in the setting of continued ETOH consumption. He did not recognize his and andrea a gun onher and andrea a knife on his daughter. His medications were adjusted and he was discharged to [facility] after hospitalization where he was until about a week ago. decided she wanted to try to bring him home one more time and care for him at home. [facility] recommended that patient stay there for care, but wanted to take him home. states that he's been doing well since he's been home. She did not bring his medications with her today and she's not sure of what medications he's on and what doses. Doesn't think there were any changes made to medications in the [facility]p and that he is still taking medications he was taking when discharged from [facility]. Attempted to review medication list. Spouse states he is taking Trazodone 50 mg at bedtime (which was not on discharge medications from [facility]). Agitation and behavior has improved since recent hospitalization. They have removed all guns and knives from the home. Patient is supervised at all times and not left alone. is is primary caregiver. Pain medicine specialist in [place] for management of morphine pump. They are in the process of waning him off of Morphine due to his worsening dementia. They have transitioned him to oxycodone-acetaminophen 5/325 mg 1 tablet every 4 hours as needed. He's been taking it twice daily for the last week. Patient also started on Lorazepam 1 mg every 8 hours as needed. She uses this sparingly and only ifhe's getting more agitated. Repeat MMSE today 02/03. All IADLs are impaired. ADLs impaired for dressing and bathing but otherwise intact. Spouse rates him at severe dementia level of functioning. Findings are consistent [id number] dementia (likely Alzheimer's pathology given rapid forgetting) superimposed remote TBI, with contribution from chronic pain and medication side effects (oxycodone-acetaminophen, lorazepam and Flexeril), alcohol use, low B12 and folate deficiency. It is difficult for me to provide any further recommendations as I do not now what medications patient is currently taking! Recommended that spouse go home and review current medications and to contact his comp field case manager LUIS Vasquez to update his medication list here. I will also send Annette a message so she can follow-up to ensure our medication list here at [facility] is up to date. Spouse will need to monitor for worsening agitation or psychotic symptoms very closely and contact 911 if there are any severe/emergency symptoms. Patient NEEDS TO AVOID ALCOHOL THIS CAN WORSEN COGNITION AND PSYCHOSIS! May need to consider repeat EKG to monitor QTc with treatment of antipsychotic. Spouse thinks he's currently on olanzapine 5 mg at bedtime, but again is not certain of current medications he's taking. Has lorazepam to take as needed for increasing agitation. Spouse tries to use this sparingly. I diddiscuss risk of taking benzodiazepines and opioids today and risk of respiratory depression. Would recommend they further discuss with PCP the need to have naltrexone on hand to use in the even of anemergency. He's working with pain management to wean off of morphine. Taking percocet 5/325 1 tablet BID for his chronic pain. Reinforced that patient needs 24 hour care/supervision. Monitor food intake and appetite and contact office if continues to lose weight. Avoid cognitive impairing medications, such as benzodiazepines, antihistamines, anticholinergic (e.g.e paroxetine), muscle relaxants, medications used for bladder spasm such as oxybutynin Encouraged cognitively stimulating activities socialization and puzzles. 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 | For: Clinic Visit | Check-out note: Please obtain neuroimagine pictures from patient's recent ER visits and hospitalizations at [facility] Patient Instructions Patient Instructions Please double check medication list to ensure his medication list is accurate and review this with his comp field case manager. She can contact me if there are any changes to medication list. Continue memantine 10 mg twice a day as ordered. 3. Please avoid Alcohol intake as this can worsen confusion and increase agitation, hallucinations,delusions and paranoia. 4. Please discuss with PCP at upcoming appointment lab work to check a repeat Folic acid level. Sundowning Late afternoon and early evening can be difficult for some people with dementia. They may experience sundowning--restlessness, agitation, irritability, or confusion that can begin or worsen as daylight begins to fade--often just when tired caregivers need a break. Sundowning can continue into the night, making it hard for people with Dementia to fall asleep and stay in bed. As a result, they and their caregivers may have trouble getting enough sleep and functioning well during the day. Possible Causes The causes of sundowning are not well understood. One possibility is that dementia related brain changes can affect a persons biological clock, leading to confused sleep-wake cycles. This may result in agitation and other sundowning behaviors. Other possible causes of sundowning include: being overly tired unmet needs such as hunger or thirst depression pain boredom Coping with Sundowning Look for signs of sundowning in the late afternoon and early evening. These signs may include increased confusion or anxiety and behaviors such as pacing, wandering, or yelling. If you can, try to find the cause of the persons behavior. If the person with Alzheimers becomes agitated, listen calmly to his or her concerns and frustrations. Try to reassure the person that everything is OK and distract him or her from stressful or upsetting events. You can also try these tips: Reduce noise, clutter, or the number of people in the room. Try to distract the person with a favorite snack, object, or activity. For example, offer a drink, suggest a simple task like folding towels, or turn on a familiar TV show (but not the news or other shows that might be upsetting). Make early evening a quiet time of day. You might play soothing music, read, or go for a walk. You could also have a family member or friend call during this time. Close the curtains or blinds at dusk to minimize shadows and the confusion they may cause. Turn on lights to help minimize shadows. Preventing Sundowning Being too tired can increase late afternoon and early-evening restlessness. Try to avoid this situation by helping the person: go outside or at least sit by the window--exposure to bright light can help reset the persons body clock get physical activity or exercise each day get daytime rest if needed, but keep naps short and not too late in the day get enough rest at night Avoid things that seem to make sundowning worse: Do not serve coffee, cola, or other drinks with caffeine late in the day. Do not serve alcoholic drinks. They may add to confusion and anxiety. Do not plan too many activities during the day. A full schedule can be tiring. If Problems Persist If sundowning continues to be a problem, seek medical advice. A medical exam may identify the causeof sundowning, such as pain, a sleep disorder or other illness, or a medication side effect. If medication is prescribed to help the person to relax and sleep better at night, be sure to find out about possible side effects. Some medications can increase the chances of dizziness, falls, and confusion. Doctors recommend using them only for short periods of time. For more caregiving tips and other resources: Read Caring for a Person with Alzheimers Disease: www.aguila.nih.gov/alzheimers/publication/ leksdy-txcuys-ksnnrwkhre-disease Visit www.aguila.nih.gov/alzheimers/topics/caregiving Call the [facility] toll-free: The Alzheimers disease Education and Referral (ADEAR) Center is a service of the [employer] [place] [employer] part of [facility] Http://www.aguila.nih.gov/alzheimers/topics/caregiving - Many of the resources on this site are available to your S[facility] or eReader I spent a total of 90 minutes coordinating, documenting, and providing care for this patient excluding time spent in the performance of separately billed services or time spent by another provider/QHP. DOMINIC Garcia Nurse Practitioner Neuroscience [facility] 01/14/2024 documented in this encounter Plan of Treatment Upcoming Encounters Date Type Department Care Team (Late st Contact Info) Description 01/28/2024 10:20 AM EDT Office Visit Family Practice [facility] [address] [place] [id number] Charles Mayer DO [address] [place] [id number] 04/15/2024 9:00 AM EST Office Visit Neurology [address] [place] [phone] Heather Franklin CRNP [address] [facility] [place] [address] Scheduled Procedures Name Priority Associated Diagnoses Date/Ti me ESOPHAGOGASTRODUODENOSCOPY ( EGD), FLEXIBLE, TRANSORAL, DIAGNOSTIC Recall Esophageal reflux Health Maintenance Due Date Last Done Comments Cologuard 2008 Fecal Occult Blood Test 2008 Sigmoidoscopy 2008 Zoster Vaccines (1 of 2) 2013 Colonoscopy 06/03/2018 06/03/2017, 06/03/2017 Colorectal Cancer Screening 06/03/2018 DTap/Tdap Vaccines (4 - Td or Tdap) 11/08/2023 11/07/2013, 11/07/2013, 07/15/2012, Additional history exists COVID-19 Vaccine ( season) 2023 09/11/2020, 08/14/2020 GFR 05/27/2024 11/25/2023, 10/06, 06/11/2023, Additional history exists Albumin/Creatinine Ratio 06/11/2024 06/12/2023, 0606/2014 Depression Monitoring 11/16/2024 11/17/2023 CKD HGB USE SMARTSET 22121 11/24/202411/24, 11/25/2023, 06/11/2023, Additional history exists CKD PHOS USE SMARTSET 15221 11/24/202411/06, 06/11/2023, 12/24/2019 Diabetes Screening 11/24/2026 11/25/2023, [...] as of this encounter Visit Diagnoses Diagnosis 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 Care Teams Manager Tax Relationship Specialty Start Date End Date Charles Mayer DO [address] [place] [id number] PCP - General Family Medicine 05/26/23 documented as of this encounter
--- OUTSIDE RECORDS SUMMARY | 2024-01-31 21:28 | External Medical Summary | Summary of Care ---
Author Name Unknown Organization [facility] Address [address] [place] [address] Phone [phone] Care Team Providers Care Bridge Construction Inspector Name Role Phone Marsha Mayeradin Galloshawn Primary Care Provider Encounter Details Date Type Department Care Team (Late st Contact Info) Description 12/31/2023 Regeneration Operator Care Coordination and Integration [address] [place] [address] Annette Meadows RN [address] [place] [address] Need for case management follow-up* Allergies Active Allergy Reactions Criticality Noted Date [...] as of this encounter (statuses as of 12/31/2023) Medications Medication Sig Dispensed Refills Start Date End Date Status MORPHINE 5 MG/ML WAFER FABRICATION TECHNICIAN SQ INFUSION (AMBULATORY)Indic ations:MEDICATION USE AGREEMENT Dose [...] as of this encounter (statuses as of 12/31/2023) Active Problems Problem Noted Date Diagnosed Date [...] anemia 04/24/2017 Coronary artery disease invo lving [place] heart without angina pectoris 04/18/2016 Incomplete tear of right rotator cuff 04/15/2016 Overview: 04/23 Dr Eduardo guerrero. Anxiety 09/28/2014 Diverticulitis of colon 09/16/2014 Intestinal postoperative nonabsorption 1 CALLAHAN RESEARCH OTHER*[id number] 09/14/2009 ADVANCE DIRECTIVE INFORMATION 01/21/2009 Overview: No, Advance Directive brochure offered , patient declined. MEDICATION USE AGREEMENT 05/19/2008 Overview: See kim GERD (gastroesophageal reflux disease) Gout S/P gastric bypass S/P spinal fusion documented as of this encounter (statuses as of 12/31/2023) Resolved Problems Problem Noted Date Diagnosed Date Resolved Date Kidney disease, chronic, sta ge III (GFR 30-59 ml/min) 11/16/2018 02/17/2020 Overview: Per CKD protocol Well adult exam 04/18/2016 09/24/2018 Overview: ??Need eval hypoglycemia? S/p gastric bypass. Pain mgmt Dr Syed Asencio--[facility] +pain pump 02/22 EGD-Gastric bypass [...] Tobacco use disorder 09/18/2009 011 Bariatric Proteinuria Research*[id number] 09/14/2009 12/27/2009 Organic sleep disorder 06/22/200910/10 Morbid obesity, BMI not known 06/22/2009 06/26/2010 Gout 05/08/2009 11/28/2014 History of tobacco use 05/08/200910/10 Sleep apnea 05/08/2009 06/22/2009 HTN, goal below 140/90 06/15/200809/28 JOINT DIS NOS-L-LEG 08/21/2004 03/16/20 19 HTN, goal below 140/90 09/22 Tobacco use disorder 017 Overview: smokeless 2cans per week documented as of this encounter (statuses as of 12/31/2023) Immunizations Name Administration Dates Next Due COVID-19 [...] on file documented as of this encounter Progress Notes * Annette Meadows RN - 12/31/2023 1:50 PM EDT Encounter created in error documented in this encounter Plan of Treatment Upcoming Encounters Date Type Department Care Team (Late st Contact Info) Description 01/14/2024 9:00 AM EDT Office Visit Neurology [address] [place] [phone] Heather Franklin CRNP [address] [facility] [place] [address] 01/29/2024 9:40 AM EDT Office Visit Family Practice [facility] [address] [place] [address] Charles Mayer DO [address] [place] [address] Scheduled Procedures Name Priority Associated Diagnoses Date/Ti [...] COVID-19 Vaccine ( season) 2023 09/11/2020, 08/14/2020 Influenza Vaccine (FLU shot) (#1) 2023 06/24/2023, 12/27/2020, 12/27/2020, Additional history exists GFR 05/27/2024 11/25/2023, 10/06, 06/11/2023, Additional history exists Albumin/Creatinine Ratio 06/11/2024 06/12/2023, 06/0 06/2014 Depression Monitoring 11/16/2024 11/17/2023 CKD HGB USE SMARTSET 69141 11/24/202411/24, 11/25/2023, 06/11/2023, Additional history exists CKD PHOS USE SMARTSET 50847 11/24/202411/06, 06/11/2023, 12/24/2019 Diabetes Screening 11/24/2026 11/25/2023, [...] as of this encounter Visit Diagnoses Diagnosis Need for case management follow-up- Primary documented in this encounter Advance Directives Documents on File Type Date Recorded Patient Lens Edge Grinder Machine Expl 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 Care Teams Bridge Construction Inspector Relationship Specialty Start Date End Date Charles Mayer DO [facility] [place] [address] PCP - General Family Medicine 05/26/23 documented as of this encounter
--- OUTSIDE RECORDS SUMMARY | 2024-01-31 21:28 | External Medical Summary ---
Author Name Unknown Address Unknown Organization : Laboratory Report Ordering Provider Test Date Status LUBNA MENDEZ 01/28/2024 11:34:11 Final Observation Date Value Abnormality Reference (Units ) Status Zinc, level 01/28/2024 11:34:11 140 Above high normal 60-130 (mcg/dL) Final This test was developed and its analytical performance
characteristics have been determined by [employer] [place], [place]. It has
not been cleared or approved by the U.S. Food and Drug
Administration. This assay has been validated pursuant
to the CLIA regulations and is used for clinical
purposes.

Test Performed at:
[facility]
[address] [place] [address]
Matt Francisco M.D., Ph.D.,Director of Laboratories Performing Location
--- OUTSIDE RECORDS SUMMARY | 2024-01-31 21:28 | External Medical Summary | Summary of Care ---
Author Name Unknown Organization [facility] Address [address] [place] [address] Phone [phone] Care Team Providers Care Broker Name Role Phone Marsha Mayeradin Galloshawn Primary Care Provider Reason for Visit * Reason Onset Date Comments Return Neuro Medication Administration 01/14/2024 Flu an d/or Pneumo Inj Encounter Details Date Type Department Care Team (Late st Contact Info) Description 01/14/2024 9:00 AM EDT Office Visit Neurology [facility] [place] [phone] Heather Franklin CRNP [address] [place] [address] Severe early onset Alzheimer's dementia [...] as of this encounter (statuses as of 01/22/2024) Medications Medication Sig Dispensed Refills Start Date End Date Status MORPHINE 5 MG/ML CHICLE GRINDER FEEDER SQ INFUSION (AMBULATORY)Indic ations:MEDICATION USE AGREEMENT Dose [...] for Pain, Severe. 1 Tablet 01/14/2024 Active Additional Information Patient not taking.Reported on 01/22/2024 cyclobenzaprine (FLEXERIL) 10 MG Tablet Take 1 [...] as of this encounter (statuses as of 01/22/2024) Active Problems Problem Noted Date Diagnosed Date [...] anemia 04/24/2017 Coronary artery disease invo lving [place] heart without angina pectoris 04/18/2016 Incomplete tear of right rotator cuff 04/15/2016 Overview: 04/23 Dr Eduardo guerrero. Anxiety 09/28/2014 Diverticulitis of colon 09/16/2014 Intestinal postoperative nonabsorption 1 CALLAHAN RESEARCH OTHER*[id number] 09/14/2009 ADVANCE DIRECTIVE INFORMATION 01/21/2009 Overview: No, Advance Directive brochure offered , patient declined. MEDICATION USE AGREEMENT 05/19/2008 Overview: See kim GERD (gastroesophageal reflux disease) Gout S/P gastric bypass S/P spinal fusion documented as of this encounter (statuses as of 01/22/2024) Resolved Problems Problem Noted Date Diagnosed Date Resolved Date Kidney disease, chronic, sta ge III (GFR 30-59 ml/min) 11/16/2018 02/17/2020 Overview: Per CKD protocol Well adult exam 04/18/2016 09/24/2018 Overview: ??Need eval hypoglycemia? S/p gastric bypass. Pain mgmt Dr Syed Asencio--[facility] +pain pump 02/22 EGD-Gastric bypass [...] Tobacco use disorder 09/18/2009 011 Bariatric Proteinuria Research*[id number] 09/14/2009 12/27/2009 Organic sleep disorder 06/22/200910/10 Morbid obesity, BMI not known 06/22/2009 06/26/2010 Gout 05/08/2009 11/28/2014 History of tobacco use 05/08/200910/10 Sleep apnea 05/08/2009 06/22/2009 HTN, goal below 140/90 06/15/200809/28 JOINT DIS NOS-L-LEG 08/21/2004 03/16/20 19 HTN, goal below 140/90 09/22 Tobacco use disorder 017 Overview: smokeless 2cans per week documented as of this encounter (statuses as of 01/22/2024) Immunizations Name Administration Dates Next Due COVID-19 [...] is accurate and review this with his telephonic nurse case manager. She can contact me if [...] for a Person with Alzheimers Disease: www.aguila.nih.gov/alzheimers/publication/ hzaofj-fmamhq-zcrongvfve-disease Visit www.aguila.nih.gov/alzheimers/topics/caregiving Call the [facility] toll-free: The Alzheimers disease Education and Referral (ADEAR) Center is a service of the National [place] [employer] [facility] part of [facility] Http://www.aguila.nih.gov/alzheimers/topics/caregiving - Many of the resources on this site are available to your Sánchez or eReader documented in this encounter Progress Notes * Andra Gonzales CMA - 01/14/2024 10:03 AM EDT PRE - ADMINISTRATION DOCUMENTATION Are you experiencing any cold symptoms or fever? No Have you had Guillain-[place] Syndrome (an illness that causes paralysis) within [...] symptoms. - ADULT/PEDS NEUROPSYCHOLOGY REFERRAL OP for long term care social worker referral to Ms. Cortes - The following resources were provided: Hand out on Understanding behavior changes in dementia, planning for the future, local movie theater manager group the can assist with long-term care [...] beth cortes. Patient has been seeing a long term care social worker through his PCP office who is now managing his care. [x]GI [id number] with Dr. Wetzel in GI Since last visit with Dr. Hampton, patient had a number of ER visits and hospitalizations at [facility]. He had a numerous ER visit was for falls with head injury, altered mental status, cough and abdominal pain/nausea Admitted to [facility] from 11/08 through 11/14/2023. Per discharge summary: Admitted to [facility] from 11/30/2023 until 12/30/2023 Per Discharge summary: Was discharged to [facility] after hospitalization where he was until about a week ago. decided she wanted to try to bring him home one more time and care for him at home. [facility] recommended that patient stay there for care, but wanted to take him home. states that he's been doing well since he's been home. She did not bring his medications with her today and she's not sure of what medications she's on and what doses. Doesn't think there were any changes made to medications that he was discharged on from most recent hospitalization at [facility]. Attempted to review medication list. Spouse states he is taking Trazodone 50 mg at bedtime (which was not on discharge medications from [facility]). Agitation and behavior has improved since recent hospitalization. They have removed all guns and knives from the home. Patient is supervised at all times and not left alone. is is primary caregiver. Pain medicine specialist in [place] for management of morphine pump. They are [...] History: Diagnosis Date Coronary artery disease involving [place] heart without angina pectoris 04/18/2016 Displacement of [...] performed by Yadira Dasilva DO at [facility] EGD, FLEXIBLE, DIAGNOSTIC 07/19/2010 UPPER GI ENDOSCOPY DIAGNOSTIC performed by RADHA ARREOLA at [facility] EGD, FLEXIBLE, DIAGNOSTIC 09/10/2011 NORMAL BXS EGD, FLEXIBLE, DIAGNOSTIC 10/11/2011 UPPER GI ENDOSCOPY DIAGNOSTIC performed by Fern Wetzel MD at [facility] EGD, FLEXIBLE, DIAGNOSTIC 08/31/2014 gastritis w/ intestinal metaplasia/[facility] EGD, FLEXIBLE, DIAGNOSTIC 01/23/2018 gastric ulcerations/[facility] EGD, FLEXIBLE, DIAGNOSTIC 03/17/2018 healed ulcer/ESOPHAGOGASTRODUODENOSCOPY (EGD), FLEXIBLE, TRANSORAL, DIAGNOSTIC performed by Jose F Wolff MD at [facility] EGD, FLEXIBLE, DIAGNOSTIC 01/21/2018 gastric ulcer / INPT [facility] EGD, FLEXIBLE, DIAGNOSTIC 10/27/2023 ESOPHAGOGASTRODUODENOSCOPY (EGD), FLEXIBLE, TRANSORAL, DIAGNOSTIC performed by Kimberlee Wetzel MD at [facility] EXPLORATION OF ABDOMEN 08/02/2010 EXPLORATORY LAPAROTOMY performed by RADHA ARREOLA at [facility] FRACTURE NOS 1993 L wrist FRACTURE NOS 2003 R ankle FRACTURE NOS 2007 7 skull fractures 3 back fractures, crushed ankle from work injury FRAGMENT KIDNEY STONE BY SHOCK WAVE 11-29-2011 ESWL (Extracorporeal Shock Wave Lithotripsy) FRAGMENT KIDNEY STONE BY SHOCK WAVE 02-07-2012 ESWL (Extracorporeal Shock Wave Lithotripsy) LAPAROSCOPE PROCEDURE, LIVER 07/19/2010 UNLISTED LAPAROSCOPIC PROCEDURE LIVER performed by RADHA ARREOLA at [facility] LAPAROSCOPIC GASTRIC BYPASS/JACKIE-EN-Y 07/19/2010 LAPAROSCOPIC GASTRIC RESTRICTIVE BYPASS JACKIE EN Y performed by RADHA ARREOLA at [facility] LAPAROSCOPY DIAGNOSTIC 08/02/2010 LAPAROSCOPY DIAGNOSTIC performed by RADHA ARREOLA at [facility] LAPAROSCOPY, CHOLECYSTECTOMY WITH CHOLANGIOGRAPHY 02/13/2011 LAPAROSCOPIC CHOLECYSTECTOMY WITH CHOLANGIOGRAM performed by RADHA ARREOLA at [facility] MISCELLANEOUS ORDER ([facility] ONLY) 01/31/2009 Dr Clayton, [facility] REMOVAL OF APPENDIX 1974 Appendectomy REPAIR INITIAL INGUINAL HERNIA REDUCIBLE AGE 5 OR MORE Left 11/01/2015 REPAIR INITIAL INGUINAL HERNIA REDUCIBLE AGE 5 OR MORE performed by Wilfredo Blevins MD at [facility] REPAIR OF KNEE LIGAMENT/CAPSULE 2004 Knee Repair Cruciate Ligament SPINAL FUSION, 6 OR LESS VERT, POST 03/2010 Dr. 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 MORPHINE 5 MG/ML CHICLE GRINDER FEEDER SQ INFUSION (AMBULATORY) Dose morphine per Pain [...] (L) >4.5 ng/mL No results found for: "[id number]" No results found for: "PMYU68DCM3" No results found for: "[id number]" 25OH VITAMIN D TOTAL (ng/mL) Date Value 11/09/2018 47 04/24/2017 33 04/18/2016 25 Vitamin D Level Interpretation deficient: <20 ng/ml insufficient: 20-30 ng/ml normal: 31-100 ng/ml IMAGING STUDIES: Patient had CT imaging of brain during ER visits and hospitalizations at [facility] with showed no acute abnormality. I do [...] number of ER visits and hospitalizations at [facility]. He had a numerous ER visits for falls with head injury, altered mental status, cough and abdominal pain/nausea Admitted to [facility] from 11/30/2023 until 12/30/2023 for worsening confusion, agitation and psychotic symptoms in the setting of continued ETOH consumption. He did not recognize his and andrea a gun onher and andrea a knife on his daughter. His medications were adjusted and he was discharged to [facility] after hospitalization where he was until about a week ago. decided she wanted to try to bring him home one more time and care for him at home. [facility] recommended that patient stay there for care, but wanted to take him home. states that he's been doing well since he's been home. She did not bring his medications with her today and she's not sure of what medications he's on and what doses. Doesn't think there were any changes made to medications in the prison and that he is still taking medications he was taking when discharged from [facility]. Attempted to review medication list. Spouse states he is taking Trazodone 50 mg at bedtime (which was not on discharge medications from [facility]). Agitation and behavior has improved since recent hospitalization. They have removed all guns and knives from the home. Patient is supervised at all times and not left alone. is is primary caregiver. Pain medicine specialist in [place] for management of morphine pump. They are [...] dementia level of functioning. Findings are consistent vqurwrca-dj-stfgtl dementia (likely Alzheimer's pathology given rapid forgetting) [...] review current medications and to contact his telephonic nurse case manager LUIS Vasquez to update his medication list here. I will also send Annette a message so she can follow-up to ensure our medication list here at [facility] is up to date. Spouse will need [...] patient's recent ER visits and hospitalizations at [facility] Patient Instructions Patient Instructions Please double check medication list to ensure his medication list is accurate and review this with his telephonic nurse case manager. She can contact me if [...] for a Person with Alzheimers Disease: www.aguila.nih.gov/alzheimers/publication/ seqchf-okniao-ynorrdnjkq-disease Visit www.aguila.nih.gov/alzheimers/topics/caregiving Call the [facility] toll-free: The Alzheimers disease Education and Referral (ADEAR) Center is a service of the National [place] part of [facility] Http://www.aguila.nih.gov/alzheimers/topics/caregiving - Many of the resources on this site are available to your Sánchez or eReader I spent a total of 90 minutes coordinating, documenting, and providing care for this patient excluding time spent in the performance of separately billed services or time spent by another provider/QHP. DOMINIC Garcia Nurse Practitioner [facility] 01/14/2024 documented in this encounter Plan of Treatment Upcoming Encounters Date Type Department Care Team (Late st Contact Info) Description 01/28/2024 10:20 AM EDT Office Visit Family Practice [facility] [address] [place] [address] Charles Mayer DO [address] [place] [address] 04/15/2024 9:00 AM EST Office Visit Neurology [address] [place] [phone] Heather Franklin CRNP [address] [place] [address] Scheduled Procedures Name Priority [...] 07/15/2012, Additional history exists COVID-19 Vaccine ( - season) 2023 09/11/2020, 08/14/2020 GFR 05/27/2024 11/25/2023, 10/06, 06/11/2023, Additional history exists Albumin/Creatinine Ratio 06/11/2024 06/12/2023, 06/2014 CKD HGB USE SMARTSET 69619 11/24/202411/24, 11/25/2023, 06/11/2023, Additional history exists CKD PHOS USE SMARTSET 74718 11/24/202411/06, 06/11/2023, 12/24/2019 Depression Screening 01/21/2025 01/22/2024 [...] Documents on File Type Date Recorded Patient Lamina Searcher Expl 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 Care Teams Broker Relationship Specialty Start Date End Date Charles Mayer DO [address] [place] [address] PCP - General Family Medicine 05/26/23 documented as of this encounter
--- OUTSIDE RECORDS SUMMARY | 2024-01-31 21:28 | External Medical Summary | Summary of Care ---
Author Name Unknown Organization [facility] Address [address] [place] [address] Phone [phone] Care Team Providers Care Merchandise Examiner Name Role Phone Mayer Charles Galloshawn Primary Care Provider Reason for Visit * Reason Onset Date Comments Medication Refill 01/02/2024 Encounter Details Date Type Department Care Team (Late st Contact Info) Description 01/02/2024 [facility] [address] Annette Meadows, RN [address] [place] [address] Anxiety*; Chronic chest pain; Spasm of muscle Allergies Active Allergy Reactions Criticality Noted Date [...] Date End Date Status MORPHINE 5 MG/ML ENROLLMENT NURSE SQ INFUSION (AMBULATORY)Indic ations:MEDICATION USE AGREEMENT Dose [...] Additional Information Patient not taking.Reported on 10/22/2023 Docusate Sodium 100 MG Oral Capsule (Colace) [...] the morning. 100 Tablet 2 11/27/2023 Active LORazepam 1 MG Oral Tablet (Ativan)Indicatio ns:Chronic chest pain,Anxiety,Spas m of muscle Take 1 Tablet by mouth every 8 hours as needed for Other (severe spasm). 30 Tablet 01/02/2024 Active LORazepam 1 MG Oral Tablet (Ativan)Indicatio ns:Chronic chest pain,Anxiety,Spas m of muscle Take 1 Tablet by mouth every 8 hours as needed for Other (severe spasm). 30 Tablet 04/30/2021 4 Discontinue d(Refill) documented as of this [...] anemia 04/24/2017 Coronary artery disease invo lving [place] heart without angina pectoris 04/18/2016 Incomplete tear of right rotator cuff 04/15/2016 Overview: 04/23 Dr Eduardo guerrero. Anxiety 09/28/2014 Diverticulitis of colon 09/16/2014 Intestinal postoperative nonabsorption 1 CALLAHAN RESEARCH OTHER*[id number] 09/14/2009 ADVANCE DIRECTIVE INFORMATION 01/21/2009 Overview: No, [...] Tobacco use disorder 09/18/2009 011 Bariatric Proteinuria Research*[id number] 09/14/2009 12/27/2009 Organic sleep disorder 06/22/200910/10 Morbid [...] 11/17/2023 Does the household have a re lar [...] encounter Miscellaneous Notes * Telephone Encounter - Annette Meadows RN - 01/02/2024 11:56 AM EDT Patient's stopped by clinic today, asking to speak with CM. She states she is taking patient out of [facility] TODAY as she is unhappy with their care. She states patient has not been getting all of his medications as ordered, his bed is broken and they have been told they're waiting on parts,he is not aloud to have a chair in his room but has to sit in common area with patients who are yelling/screaming which upsets him, some of his clothing has gone missing and staff says "their lookingfor it", food is "horrible", and has observed other patients not being cared for/ignored. Wifeis very upset about this and is meeting with a pediatric social worker today and then taking patient home. She states patient has been "doing really good" on his current medications and behavior has been stable. states that patient only has 15 days left of intermediate coverage and then she would have to pay out of pocket. She has investigated paying for private duty nurse/caregivers and feels this willbe less expensive. She also has a friend that is a MAINTENANCE MGR who has offered to help her care/stay with patient as needed. has also talked with their son who will have to be available for support as well. I expressed my concerns for the family's safety if patient returns home, based on his history, and states all guns have been removed from the home and all the knives are "under lock and kessler". is requesting a prescription for Ativan for patient. She has all of his other medications but needs to make sure she has Ativan on hand if she should need it to calm patient down. will contact CM later today. documented in this encounter Plan of Treatment Upcoming Encounters Date Type Department Care Team (Late st Contact Info) Description 01/14/2024 9:00 AM EDT Office Visit Neurology [address] [place] [phone] Heather Franklin [facility] [address] [facility] [address] 01/29/2024 9:40 AM EDT Office Visit Family Practice [facility] [address] [place] [id number] Charles Mayer DO [address] [place] [address] Scheduled Procedures Name Priority Associated Diagnoses Date/Ti [...] Monitoring 11/16/2024 11/17/2023 CKD HGB USE SMARTSET 21261 11/24/202411/24, 11/25/2023, 06/11/2023, Additional history exists CKD PHOS USE SMARTSET 53462 11/24/202411/06, 06/11/2023, 12/24/2019 Diabetes Screening 11/24/2026 11/25/2023, [...] as of this encounter Visit Diagnoses Diagnosis Anxiety- Primary Anxiety state, unspecified Chronic chest pain Chest pain, unspecified Spasm of muscle documented in this encounter Advance Directives Documents on File Type Date Recorded Patient Inclusion Manager Expl 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 Care Teams Merchandise Examiner Relationship Specialty Start Date End Date Charles Mayer DO [address] [place] [address] PCP - General Family Medicine 05/26/23 documented as of this encounter
--- OUTSIDE RECORDS SUMMARY | 2024-01-31 21:28 | External Medical Summary | Summary of Care ---
Author Name Unknown Organization [facility] Address [address] [place] [address] Phone [phone] Care Team Providers Care Heavy Duty Custodian Name Role Phone Charles Mayer DO Primary Care Provider Encounter Details Date Type Department Care Team (Late st Contact Info) Description 12/31/2023 Telephone Family Practice [facility] [address] [place] [address] Annette Meadows, RN [address] [place] [address] Allergies Active Allergy Reactions Criticality Noted Date [...] Date End Date Status MORPHINE 5 MG/ML QUALITY COMPLIANCE COORDINATOR SQ INFUSION (AMBULATORY)Indic ations:MEDICATION USE AGREEMENT [...] anemia 04/24/2017 Coronary artery disease invo lving knik heart without angina pectoris 04/18/2016 Incomplete tear of right rotator cuff 04/15/2016 Overview: 04/23 Dr Eduardo guerrero. Anxiety 09/28/2014 Diverticulitis of colon 09/16/2014 Intestinal postoperative nonabsorption 1 CALLAHAN RESEARCH OTHER*[id number] 09/14/2009 ADVANCE DIRECTIVE INFORMATION 01/21/2009 Overview: No, [...] S/p gastric bypass. Pain mgmt Dr Syed Asencio--[facility] +pain pump 02/22 EGD-Gastric bypass with a [...] Tobacco use disorder 09/18/2009 011 Bariatric Proteinuria Research*[id number] 09/14/2009 12/27/2009 Organic sleep disorder 06/22/200910/10 Morbid [...] Telephone Encounter - Annette Meadows RN - 12/31/2023 1:51 PM EDT Patient's Alisha called. She confirms that patient was admitted to LTC in a secure unit at [facility]. She states patient doesn't understand why he's there which is really hard on the family. Emotional support provided. Alisha is requesting a copy of patient's medication list. CM explained that his [facility] med list has not been updated since his hospitalization and that the D/C paperwork from the hospital is more accurate. She verbalized understanding but would like to have a copy. Med list printed and notation made that list is no longer current. will fiber picker later this afternoon. documented in this encounter Plan of Treatment Upcoming Encounters Date Type Department Care Team (Late st Contact Info) Description 01/14/2024 9:00 AM EDT Office Visit Neurology [address] [place] [phone] Heather Franklin CRNP [address] [place] [address] 01/29/2024 9:40 AM EDT Office Visit Family Practice [facility] [address] [place] [address] Charles Mayer DO [address] [place] [address] Scheduled Procedures Name Priority Associated Diagnoses Date/Ti [...] Monitoring 11/16/2024 11/17/2023 CKD HGB USE SMARTSET 18831 11/24/202411/24, 11/25/2023, 06/11/2023, Additional history exists CKD PHOS USE SMARTSET 05780 11/24/202411/06, 06/11/2023, 12/24/2019 Diabetes Screening 11/24/2026 11/25/2023, [...] Documents on File Type Date Recorded Patient Steel Sash Erector Expl 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 Care Teams Heavy Duty Custodian Relationship Specialty Start Date End Date Charles Mayer DO [address] [address] PCP - General Family Medicine 05/26/23 documented as of this encounter
--- OUTSIDE RECORDS SUMMARY | 2024-01-31 21:28 | External Medical Summary | Summary of Care ---
Author Name Unknown Organization [facility] Address [address] [facility] [place] [address] Phone [phone] Care Team Providers Care Certified Orthoptist Name Role Phone Charles Mayer DO Primary Care Provider Encounter Details Date Type Department Care Team (Late st Contact Info) Description 01/01/2024 Population Health External Data Unspecified Department Allergies [...] as of this encounter (statuses as of 01/01/2024) Medications Medication Sig Dispensed Refills Start Date End Date Status MORPHINE 5 MG/ML SUBSORTER SQ INFUSION (AMBULATORY)Indic ations:MEDICATION USE AGREEMENT Dose [...] as of this encounter (statuses as of 01/01/2024) Active Problems Problem Noted Date Diagnosed Date [...] anemia 04/24/2017 Coronary artery disease invo lving [employer] heart without angina pectoris 04/18/2016 Incomplete tear of right rotator cuff 04/15/2016 Overview: 04/23 Dr Eduardo guerrero. Anxiety 09/28/2014 Diverticulitis of colon 09/16/2014 Intestinal postoperative nonabsorption 1 CALLAHAN RESEARCH OTHER*[id number] 09/14/2009 ADVANCE DIRECTIVE INFORMATION 01/21/2009 Overview: No, Advance Directive brochure offered , patient declined. MEDICATION USE AGREEMENT 05/19/2008 Overview: See kim GERD (gastroesophageal reflux disease) Gout S/P gastric bypass S/P spinal fusion documented as of this encounter (statuses as of 01/01/2024) Resolved Problems Problem Noted Date Diagnosed Date Resolved Date Kidney disease, chronic, sta ge III (GFR 30-59 ml/min) 11/16/2018 02/17/2020 Overview: Per CKD protocol Well adult exam 04/18/2016 09/24/2018 Overview: ??Need eval hypoglycemia? S/p gastric bypass. Pain mgmt Dr Syed Asencio--[facility] +pain pump 02/22 EGD-Gastric bypass with [...] Tobacco use disorder 09/18/2009 011 Bariatric Proteinuria Research*[id number] 09/14/2009 12/27/2009 Organic sleep disorder 06/22/200910/10 Morbid obesity, BMI not known 06/22/2009 06/26/2010 Gout 05/08/2009 11/28/2014 History of tobacco use 05/08/200910/10 Sleep apnea 05/08/2009 06/22/2009 HTN, goal below 140/90 06/15/200809/28 JOINT DIS NOS-L-LEG 08/21/2004 03/16/20 19 HTN, goal below 140/90 09/22 Tobacco use disorder 017 Overview: smokeless 2cans per week documented as of this encounter (statuses as of 01/01/2024) Immunizations Name Administration Dates Next Due COVID-19 [...] [address]ell Bon[address] Dr [address] [place] [phone] Heather Franklin CRNP [address] [facility] [place] [address] 01/29/2024 9:40 AM EDT Office Visit Family Practice [facility] [address] [place] [address] Charles Myaer DO [address] [place] [address] Scheduled Procedures Name Priority Associated Diagnoses Date/Ti [...] Monitoring 11/16/2024 11/17/2023 CKD HGB USE SMARTSET 49197 11/24/202411/24, 11/25/2023, 06/11/2023, Additional history exists CKD PHOS USE SMARTSET 98703 11/24/202411/06, 06/11/2023, 12/24/2019 Diabetes Screening 11/24/2026 11/25/2023, [...] Documents on File Type Date Recorded Patient Ager Tender Expl 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 Care Teams Certified Orthoptist Relationship Specialty Start Date End Date Charles Mayer DO [address] [facility] [place] [address] PCP - General Family Medicine 05/26/23 documented as of this encounter
--- NOTE | 2024-01-31 21:29 | Emergency Department Note ---
Impression & Plan BLANCO (acute kidney injury) Admission ED Provider Note HPI: History obtained from bedside RN via EMS report. 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 Per EMS report the patient's was concerned that he might have a urinary tract infection because he also has had some diminished urinary output and seem to be having some trouble urinating. On arrival here to the ED the patient is alert, he is hemodynamically stable and saturating well on room air. Patient is unable to provide me with any history. ROS: - Per HPI Differential Diagnosis: Urinary tract infection, sepsis, acute kidney injury/dehydration, pneumonia, viral upper respiratory infection to include COVID-19, influenza A, amongst other potential pathologies. *Outpatient medications and allergy history reviewed. PE: General: Alert, frail-appearing, no acute distress HEENT: Normocephalic, trachea midline Eyes: Extraocular eye movement is intact, no scleral erythema Pulmonary: Clear to auscultation bilaterally, no wheezing Cardio: Regular rate and rhythm GI: Abdomen is soft to palpation : No suprapubic tenderness MSK: No evidence of trauma or malformation of the extremities, no edema Skin: No evidence of rash Neuro: Alert, no focal deficits Psychiatric: Cooperative INDEPENDENT INTERPRETATIONS: personnel monitor: (As interpreted by myself): - An order was placed for continuous cardiac monitoring - Patient was noted to be in sinus rhythm with a rate of 82 EKG: (As interpreted by myself): Rate: 76 Rhythm: Sinus rhythm Intervals: QRS 144 ms, otherwise within normal limits ST changes: No ST elevation Time: 2131 Chest x-ray: (As interpreted by myself): No acute disease Interventions provided in ED: -IV fluid bolus, IV ceftriaxone Medical Decision Making: IV was established and lab work obtained, patient was placed on personnel monitor. Lab work shows no leukocytosis, hemoglobin is stable at 12.5, platelet count is normal, CMP shows an mildly elevated creatinine of 1.61, otherwise no critical findings are noted. Procalcitonin is low at 0.04, troponin is negative. EKG per my interpretation shows sinus rhythm with a rate of 76 without acute ischemic changes. Urinalysis is noted to be turbid in appearance, therefore not completely reportable. 4+ bacteria are noted. I do have concern for UTI. Patient was treated with IV ceftriaxone. Patient does not have any tenderness in the abdomen on my exam therefore CT imaging was not ordered. Viral panel testing was obtained and is negative. Patient was given IV fluids here in the ED, given acute kidney injury and concern for UTI, he will be admitted to the hospitalist service for further care. Patient's later arrived at the bedside and she is in agreement to this plan. Case was discussed with the on- call hospitalist, Dr. Isbell, and the patient was placed for admission in stable condition. Consultants/Discussions held with other healthcare providers: -Hospitalist, Dr. Isbell Disposition discussion held by myself with: -Patient and patient's at the bedside Diagnosis: 1. Urinary tract infection, acute 2. Acute kidney injury 3. History of dementia/TBI Disposition: Admission Brad Stuart DO Emergency Medicine Past Med/Surg History Problem List (Updated 02/01/24 @ 00:39 by Brad Stuart DO) BLANCO (acute kidney injury) (Acute) Postlaminectomy syndrome of lumbosacral region Hyponatremia (Acute) Dementia (Acute) QT prolongation Delirium due to another medical condition, acute, hyperactive Agitation Alcohol abuse (Acute) AMS (altered mental status) (Acute) Major neurocognitive disorder as late effect of traumatic brain injury with behavioral disturbance Frequent falls (Acute) Altered mental status (Acute) Confusion Right ureteral stone Encounter for pre-operative examination Anemia (Acute) IRON DEFICIENT ANEMIA AND REC'D IV IRON 10/06. Baseline HGB since 2017 ~9 HLD (hyperlipidemia) Gout Back pain FROM ACCIDENT AND 7 DIFFERENT FX AND FUSION GERD (gastroesophageal reflux disease) (Acute) Anxiety History of renal stone (Acute) S/P cysto/litho/stent 10/07 History of diverticulitis of colon remote Medical History (Updated 02/01/24 @ 00:39 by Brad Stuart DO) History of fracture of right ankle Hx of fracture of skull 7 FX AND HAS SOME PROBLEMS WITH MEMORY Gastric ulcer Hydronephrosis B/L per KUB 10/12/18 Surgical History S/P ureteral stent placement History of cystoscopy W/ LITHO/BASKET STONE EXTRACTION - 10/07/18 [facility]. LMA #5. History of surgery on left wrist History of arthroscopy of right shoulder Hx of right knee surgery S/P insertion of intrathecal pump FOLLOW WITH DR LAKIA PACKER FROM [place] [facility] History of back surgery UPPER BACK FUSION, 7 DIFFERENT FRACTURES AND MULTIPLE SURGERIES AND IS FUSED multiple revisions H/O inguinal hernia repair H/O lithotripsy S/P exploratory laparotomy (Unknown) 2010 RUPTURED DIVERTICULI S/P appendectomy (Unknown) S/P cholecystectomy (Unknown) S/P gastric bypass mike en y (2010) Family History Mother DM type 2 (diabetes mellitus, type 2) Father DM type 2 (diabetes mellitus, type 2) Social History Smoking Status: Unknown if ever smoked Tobacco Type: Smokeless Tobacco (Dip or Chew) Second Hand Exposure: No; Do You Dip or Chew Tobacco: Yes; Hx Alcohol Use: Yes Alcohol type: beer Hx Substance Use: No Preferred Language: Occitan Communication Ability: Impaired Visual Impairment: No Limitations Explosive Operator Bomb Required: No Beliefs That Will Affect Care: None Current Living Situation: Spouse Current Living Situation Comment: lives with Feels Safe at Home: Yes Assistive Devices: Walker and Wheelchair Allergies Allergies Allergy/AdvReac Type Severity Reaction Status Date / Time Penicillins Allergy Severe SEE COMMENT Verified 11/30/23 01:21 erythromycin base Allergy Intermediate Itching Verified 11/30/23 01:21 indomethacin Allergy Intermediate HIVES Verified 11/30/23 01:21 neomycin Allergy Intermediate BLISTERS Verified 11/30/23 01:21 vancomycin Allergy Intermediate ITCHING--ALL Verified 11/30/23 01:21 MYCIN DRUGS fentanyl AdvReac Severe "DID NOT Verified 11/30/23 01:21 TOLERATE"-patch- "went nuts" ibuprofen AdvReac Severe Ulcer Verified 11/30/23 01:21 history ketorolac AdvReac Mild NAUSEA Verified 11/30/23 01:21 aspirin AdvReac Unknown "BLEEDING" Verified 11/30/23 01:21 S/P GASTRIC BYPASS Home Meds Home Medications Medication Instructions Recorded Confirmed Vitamin B-12 Injections 1 ea IM .Q 3 MONTHS 11/30/23 11/30/23 Previous Rx's Medication Instructions Recorded Prune-Lax 2 tab PO HS #30 tabs 12/30/23 allopurinol 300 mg tablet 300 mg PO QAM 30 days #30 tabs 12/30/23 atorvastatin 10 mg tablet 10 mg PO QAM 30 days #30 tabs 12/30/23 colchicine 0.6 mg tablet 0.6 mg PO BID PRN GOUT FLARE UPS 12/30/23 #20 tabs cyanocobalamin (vitamin B-12) 500 500 mcg PO QAM 30 days #30 tabs 12/30/23 mcg tablet cyclobenzaprine 10 mg tablet 10 mg PO BID 30 days #60 tabs 12/30/23 docusate sodium 100 mg capsule 200 mg (2 x 100 mg) PO BID 30 days 12/30/23 #120 caps famotidine 40 mg tablet 40 mg PO HS 30 days #30 tabs 12/30/23 melatonin 3 mg tablet 3 mg PO HS #30 tabs 12/30/23 memantine 10 mg tablet 10 mg PO BID 30 days #60 tabs 12/30/23 morphine 5 mg/mL injection solution 1 mg (0.2 mL) continuous 12/30/23 subcutaneous infusion CONTINOUS #25 mL pantoprazole 40 mg tablet,delayed 40 mg PO BID 30 days #60 tabs 12/30/23 release polyethylene glycol 3350 17 gram 17 g PO DAILY #30 ea 12/30/23 oral powder packet (Miralax) zinc sulfate 50 mg zinc (220 mg) 50 mg PO DAILY #30 tabs 12/30/23 tablet Results & Data (ED) Vital Signs Vital Signs - 24 hr 01/31/24 21:05 01/31/24 21:27 01/31/24 21:27 Temperature 36.6 C Temperature Source Oral Pulse Rate 69 Respiratory Rate 16 Respiratory Effort / Characteristics Non-Labored Non-Labored Respiratory Depth Normal Normal Blood Pressure 146/85 H Blood Pressure Mean 105 Pulse Oximetry 98 97 Oxygen Delivery Method Room Air Room Air Sepsis Recent Fever Within 48 Hours No Sepsis New/Unexplained Change in Mental Status No Sepsis Action Taken by Nursing No Action Required 01/31/24 21:30 01/31/24 23:05 Temperature Temperature Source Pulse Rate 77 Respiratory Rate Respiratory Effort / Characteristics Non-Labored Respiratory Depth Normal Blood Pressure Blood Pressure Mean Pulse Oximetry Oxygen Delivery Method Sepsis Recent Fever Within 48 Hours Sepsis New/Unexplained Change in Mental Status Sepsis Action Taken by Nursing Laboratory Data 01/31/24 21:33 01/31/24 21:33 Lab Results 01/31/24 01/31/2424 Range/Units 21:33 21:35 23:00 WBC 5.86 (4.8-10.8) K/ul RBC 4.10 L (4.70-6.10) M/uL Hgb 12.5 L (14.0-18.0) g/dl Hct 37.1 L (42.0-52.0) % MCV 90.5 (80.0-100.0) fL MCH 30.5 (25.0-34.0) pg MCHC 33.7 (32.0-36.0) g/dL RDW Std Deviation 44.0 (36.4-46.3) fL RDW Coeff of Rogerio 13.2 (11.5-14.5) % Plt Count 225 (130-400) K/uL MPV 9.5 (9.4-12.4) fL Immature Gran % (Auto) 0.2 % Neut % (Auto) 71.0 % Lymph % (Auto) 19.5 % [place] % (Auto) 8.7 % Eos % (Auto) 0.3 % Baso % (Auto) 0.3 % Neut # (Auto) 4.16 (1.40-6.50) K/uL Lymph # (Auto) 1.14 L (1.20-3.40) K/uL [place] # (Auto) 0.51 (0.11-0.59) K/uL Eos # (Auto) 0.02 (0.00-0.50) K/uL Baso # (Auto) 0.02 (0.00-0.20) K/uL Immature Gran # (Auto) 0.01 (0.01-0.20) K/uL Sodium 141 (136-145) mmol/L Potassium 4.0 (3.5-5.1) mmol/L Chloride 104 (98-107) mmol/L Carbon Dioxide 30 (21-32) mmol/L Anion Gap 7 (3-11) BUN 18 (6-23) mg/dl Creatinine 1.61 H (0.6-1.4) mg/dl Est Cr Clr Drug Dosing Not Reportable eGFR 48.66 BUN/Creatinine Ratio 11.2 (10-20) Glucose 114 H (70-99(Fasting)) mg/dl Calcium 8.6 (8.6-10.3) mg/dl Total Bilirubin 0.7 (0.2-1.0) mg/dl AST 20 (13-39) U/L ALT 13 (7-52) U/L Alkaline Phosphatase 128 H (34-104) U/L Troponin I High Sens 5.4 (0-20) pg/ml Total Protein 5.9 L (6.0-8.3) gm/dl Albumin 3.6 (3.4-5.0) gm/dl Globulin 2.3 L (2.5-4.0) gm/dl Albumin/Globulin Ratio 1.6 (0.9-2) Lipase 31 (11-82) U/L Procalcitonin 0.04 (0-0.5) ng/ml Urine Color See Comment Urine Appearance Turbid A (Clear) Urine pH Not Reportable Ur Specific [place] 1.021 (1.000-1.030) Urine Protein Not Reportable Urine Glucose (UA) Not Reportable Urine Ketones Not Reportable Urine Blood Not Reportable Urine Nitrite Not Reportable Urine Bilirubin Not Reportable Urine Urobilinogen Not Reportable Ur Leukocyte Esterase Not Reportable Urine RBC 11-20 H (0-2) /hpf Urine WBC 6-10 H (0-5) /hpf Ur Epithelial Cells 0-2 (0-2) /hpf Triple Phos Crystals Present A (None Prsent) Amorphous Sediment Present A (None Prsent) Urine Bacteria 4+ H (None Seen) Adenovirus (PCR) Not Detected (NotDetected) B. pertussis DNA (PCR) Not Detected (NotDetected) B.parapertussis DNA PCR Not Detected (NotDetected) C. pneumoniae DNA (PCR) Not Detected (NotDetected) Coronavirus OC43 (PCR) Not Detected (NotDetected) Coronavirus HKU1 (PCR) Not Detected (NotDetected) Coronavirus 229E (PCR) Not Detected (NotDetected) SARS-CoV-2 (PCR) Not Detected (NotDetected) Coronavirus NL63 (PCR) Not Detected (NotDetected) Human Metapneumovir PCR Not Detected (NotDetected) Influenza Type A (PCR) Not Detected (NotDetected) Influenza Type B (PCR) Not Detected (NotDetected) M. pneumoniae (PCR) Not Detected (NotDetected) Parainfluenza 1 (PCR) Not Detected (NotDetected) Parainfluenza 2 (PCR) Not Detected (NotDetected) Parainfluenza 3 (PCR) Not Detected (NotDetected) Parainfluenza 4 (PCR) Not Detected (NotDetected) RSV (PCR) Not Detected (NotDetected) Entero/Rhino (PCR) Not Detected (NotDetected) Administered Medications Discontinued Medications Sodium Chloride (Nss) 1,000 mls @ 999 mls/hr IV .Q1H1M ONE Stop: 01/31/24 22:50 Last Infusion: 02/01/24 00:10 Dose: Infused Documented By: Admin: 01/31/24 22:09 Dose: 999 mls/hr Documented By: GIAN Ceftriaxone Sodium (Rocephin) 2,000 mg in 50 mls @ 100 mls/hr IV NOW STA Stop: 02/01/24 00:33 Last Admin: 02/01/24 00:16 Dose: 100 mls/hr Documented By: AJAY Discharge Plan Visit Data Chief Complaint: Urinary Symptoms Stated Complaint: URINARY SX, MORE SLEEPY, DECREASED OUTPUT ED Provider: Brad Stuart Discharge Problem: BLANCO (acute kidney injury) Forms Stand Alone Forms: My [facility] jellyfish Prescriptions Prescriptions: No Action Vitamin B-12 Injections 1 ea IM .Q 3 MONTHS Rx Instructions: 1 injection Q3 months per polyethylene glycol 3350 [Miralax] 17 gram Powder In Packet 17 g PO DAILY Qty: 30 0RF melatonin 3 mg Tablet 3 mg PO HS Qty: 30 0RF cyclobenzaprine 10 mg tablet 10 mg PO BID 30 Days Qty: 60 0RF atorvastatin 10 mg tablet 10 mg PO QAM 30 Days Qty: 30 0RF famotidine 40 mg tablet 40 mg PO HS 30 Days Qty: 30 0RF zinc sulfate 50 mg zinc (220 mg) Tablet 50 mg PO DAILY Qty: 30 0RF cyanocobalamin (vitamin B-12) 500 mcg Tablet 500 mcg PO QAM 30 Days Qty: 30 0RF pantoprazole 40 mg tablet,delayed release (DR/EC) 40 mg PO BID 30 Days Qty: 60 0RF docusate sodium 100 mg Capsule 200 mg PO BID 30 Days Qty: 120 0RF morphine 5 mg/mL Solution 1 mg continuous subcutaneous infusion CONTINOUS Qty: 25 0RF Rx Instructions: DOSING PER PAIN MANAGEMENT. allopurinol 300 mg tablet 300 mg PO QAM 30 Days Qty: 30 0RF colchicine 0.6 mg Tablet 0.6 mg PO BID PRN (Reason: GOUT FLARE UPS) Qty: 20 0RF memantine 10 mg tablet 10 mg PO BID 30 Days Qty: 60 0RF Prune-Lax 2 tab PO HS Qty: 30 0RF Referrals Referrals: Charles Mayer DO [Primary Care Provider] -
[2024-01-31 21:59] LABS: Basophils # (auto) 0.02 K/uL (0.00-0.20); Basophils % (auto) 0.3 %; Eosinophils # (auto) 0.02 K/uL (0.00-0.50); Eosinophils % (auto) 0.3 %; Hematocrit (blood only) 37.1 % (42.0-52.0); Hemoglobin 12.5 g/dl (14.0-18.0); Immature Granulocytes # (auto) 0.01 K/uL (0.01-0.20); Immature Granulocytes % (auto) 0.2 %; Lymphocytes # (auto) 1.14 K/uL (1.20-3.40); Lymphocytes % (auto) 19.5 %; Mean Corpuscular Hemoglobin 30.5 pg (25.0-34.0); Mean Corpuscular Hgb Conc 33.7 g/dL (32.0-36.0); Mean Corpuscular Volume 90.5 fL (80.0-100.0); Mean Platelet Volume 9.5 fL (9.4-12.4); Monocytes # (auto) 0.51 K/uL (0.11-0.59); Monocytes % (auto) 8.7 %; Neutrophils # (auto) 4.16 K/uL (1.40-6.50); Platelet Count 225 K/uL (130-400); RDW Coefficient of Variation 13.2 % (11.5-14.5); White Blood Count 5.86 K/ul (4.8-10.8)
[2024-01-31] MEDS: SODIUM CHLORIDE 0.9% 1,000 ML IV ONE (22:09)
[2024-01-31 22:11] LABS: Alanine Aminotransferase 13 U/L (7-52); Albumin Globulin Ratio 1.6 (0.9-2); Albumin Level 3.6 gm/dl (3.4-5.0); Alkaline Phosphatase 128 U/L (34-104); Anion Gap 7 (3-11); Aspartate Aminotransferase 20 U/L (13-39); BUN Creatinine Ratio 11.2 (10-20); Bilirubin,Total 0.7 mg/dl (0.2-1.0); Blood Urea Nitrogen 18 mg/dl (6-23); Calcium 8.6 mg/dl (8.6-10.3); Carbon Dioxide 30 mmol/L (21-32); Chloride 104 mmol/L (98-107); Globulin 2.3 gm/dl (2.5-4.0); Glucose 114 mg/dl (70-99(Fasting)); Lipase 31 U/L (11-82); Sodium 141 mmol/L (136-145); Total Protein 5.9 gm/dl (6.0-8.3)
[2024-01-31 22:17] LABS: Troponin I High Sensitivity 5.4 pg/ml (0-20)
[2024-01-31 22:37] LABS: Adenovirus PCR Not Detected (NotDetected); Bordetella parapertussis PCR Not Detected (NotDetected); Bordetella pertussis PCR Not Detected (NotDetected); Chlamydia pneumoniae PCR Not Detected (NotDetected); Coronavirus 229E PCR Not Detected (NotDetected); Coronavirus CoV-2 (COVID19)PCR Not Detected (NotDetected); Coronavirus HKU1 PCR Not Detected (NotDetected); Coronavirus NL63 PCR Not Detected (NotDetected); Coronavirus OC43PCR Not Detected (NotDetected); Human Metapneumovirus PCR Not Detected (NotDetected); Influenza A PCR Not Detected (NotDetected); Influenza B PCR Not Detected (NotDetected); Mycoplasma pneumoniae PCR Not Detected (NotDetected); Parainfluenza Virus 1 PCR Not Detected (NotDetected); Parainfluenza Virus 2 PCR Not Detected (NotDetected); Parainfluenza Virus 3 PCR Not Detected (NotDetected); Parainfluenza Virus 4 PCR Not Detected (NotDetected); Respiratory Syncytial VirusPCR Not Detected (NotDetected); Rhinovirus/Enterovirus PCR Not Detected (NotDetected)
[2024-02-01 00:02] LABS: Appearance Urine Turbid (Clear); Specific Gravity Urine 1.021 (1.000-1.030)
[2024-02-01 00:08] LABS: Amorphous Sediment Urine Present (None Prsent); Triple Phosphate Crystal Urine Present (None Prsent)
[2024-02-01 00:10] LABS: Bacteria Urine 4+ (None Seen)
[2024-02-01 00:12] LABS: Epithelial Cell Urine 0-2 /hpf (0-2)
[2024-02-01] MEDS: cefTRIAXone SODIUM 2,000 MG/50 ML BAG IV STA (00:16)
--- NOTE | 2024-02-01 01:31 | History & Physical Report ---
Date of Service February 01, 2024 Assessment & Plan (1) Confusion: Plan: 58-year-old male with past medical history significant for gout, right upper lobe pulmonary nodule, CAD, GERD, obesity s/p gastric bypass, GI bleed from gastric bypass, diverticulitis, CKD stage III, iron deficiency anemia, anxiety, history of kidney stones who lives at home with his was brought in because of confusion and found to have UTI. Patient has moderate to advanced dementia. Per patient seems more confused than usual. Last 2- 3 days he was having nausea and has been dry heaving and not eating much. Yesterday they went to [place] as his pain pump has been getting tapered off. His pain pump is getting tapered off because of his dementia. states he has couple more appointments and the pain pump will be completely off. Patient also had increasing back pain with pain pump being tapered off. Since coming from [place] he is sleeping a lot. And last couple of days he was not peeing much and today when he micturated he complained of pain and was crying and also there was blood in the urine which prompted to bring the patient to the ER. Patient can tell his name. Knows he is in the hospital. But could not tell current dates. Currently denies any headache. No chest pain. No shortness of breath. No back pain. No abdominal pain. Ambulates with assistance as per . As per patient currently on oxycodone twice daily and Percocet as needed for pain. Patient has history of alcoholism but states currently not drinking. Used to chew tobacco but currently abstaining it and on nicotine patch . Patient was admitted last month for confusion and agitation and falls and alcoholism. Confusion History of moderate to advanced dementia More confusion than usual as per Has UTI Possible cause of his confusion Empiric Rocephin Gentle fluids Will follow the cultures PT OT when stable Hematuria per Will monitor and consult urology if needed BLANCO Presented with creatinine 1.6 Baseline creatinine around 1 Last 2 days poor oral intake as per because of nausea Will do gentle fluids Avoid nephrotoxic agents Follow repeat labs in a.m. Chronic pain Because of his injury in the past Currently pain pump is getting tapered off because of his dementia Continue pain meds as needed History of dementia History of agitation Continue olanzapine and memantine and Remeron Monitor for delirium Chronic anemia Continue vitamin supplements On B12 shots Nonobstructive CAD Hypertension On statin Monitor blood pressure GERD On famotidine Protonix Gout On allopurinol History of gastric bypass surgery Follow-up with PCP DVT prophylaxis Heparin subcu Disposition Med/telemetry Full code per my discussion with the History of Present Illness Chief Complaint: Confusion, UTI Primary Care Provider: Charles Mayer DO 58-year-old male with past medical history significant for gout, right upper lobe pulmonary nodule, CAD, GERD, obesity s/p gastric bypass, GI bleed from gastric bypass, diverticulitis, CKD stage III, iron deficiency anemia, anxiety, history of kidney stones who lives at home with his was brought in because of confusion and found to have UTI. Patient has moderate to advanced dementia. Per patient seems more confused than usual. Last 2- 3 days he was having nausea and has been dry heaving and not eating much. Yesterday they went to [place] as his pain pump has been getting tapered off. His pain pump is getting tapered off because of his dementia. states he has couple more appointments and the pain pump will be completely off. Patient also had increasing back pain with pain pump being tapered off. Since coming from [place] he is sleeping a lot. And last couple of days he was not peeing much and today when he micturated he complained of pain and was crying and also there was blood in the urine which prompted to bring the patient to the ER. Patient can tell his name. Knows he is in the hospital. But could not tell current dates. Currently denies any headache. No chest pain. No shortness of breath. No back pain. No abdominal pain. Ambulates with assistance as per . As per patient currently on oxycodone twice daily and Percocet as needed for pain. Patient has history of alcoholism but states currently not drinking. Used to chew tobacco but currently abstaining it and on nicotine patch . Patient was admitted last month for confusion and agitation and falls and alcoholism. Past medical history. As mentioned above. Past surgical history. Amputation of the left second finger. Colonoscopy. EGD. Exploratory laparotomy. 7 skull fractures. 3 back fractures. Crush ankle from work injury. Lithotripsy. Laparoscope procedure liver. Laparoscopic gastric [id number] bypass. Diagnostic laparoscopy. Laparoscopic cholecystectomy with cholangiogram. Appendectomy. Repair of inguinal hernia. Repair of cruciate ligament of the knee. Spinal fusion. Social history. . Subcu tobacco currently not chewing. History of alcoholism currently not drinking. No drug use Family history. Father had diabetes. Hypertension. Mother had diabetes. Hypertension. Heart disorder. Allergies Allergy/AdvReac Type Severity Reaction Status Date / Time Penicillins Allergy Severe SEE COMMENT Verified 11/30/23 01:21 erythromycin base Allergy Intermediate Itching Verified 11/30/23 01:21 indomethacin Allergy Intermediate HIVES Verified 11/30/23 01:21 neomycin Allergy Intermediate BLISTERS Verified 11/30/23 01:21 vancomycin Allergy Intermediate ITCHING--ALL Verified 11/30/23 01:21 MYCIN DRUGS fentanyl AdvReac Severe "DID NOT Verified 11/30/23 01:21 TOLERATE"-patch- "went nuts" ibuprofen AdvReac Severe Ulcer Verified 11/30/23 01:21 history ketorolac AdvReac Mild NAUSEA Verified 11/30/23 01:21 aspirin AdvReac Unknown "BLEEDING" Verified 11/30/23 01:21 S/P GASTRIC BYPASS Home Medications Medication Instructions Recorded Confirmed Type allopurinol 300 mg tablet 300 mg PO DAILY 02/01/24 02/01/24 History atorvastatin 10 mg tablet 10 mg PO DAILY 02/01/24 02/01/24 History copper 2 mg tablet 2 mg PO DAILY 02/01/24 02/01/24 History cyclobenzaprine 10 mg tablet 10 mg PO BID 02/01/24 02/01/24 History famotidine 40 mg tablet 40 mg PO DAILY 02/01/24 02/01/24 History folic acid 1 mg tablet 1 mg PO DAILY 02/01/24 02/01/24 History memantine 10 mg tablet 10 mg PO BID 02/01/24 02/01/24 History mirtazapine 15 mg tablet 15 mg PO HS 02/01/24 02/01/24 History olanzapine 5 mg tablet 5 mg PO HS 02/01/24 02/01/24 History oxycodone-acetaminophen 5 mg-325 1 tab PO Q4H PRN Pain 02/01/24 02/01/24 History mg tablet pantoprazole 40 mg tablet,delayed 40 mg PO DAILY 02/01/24 02/01/24 History release promethazine 12.5 mg tablet 12.5 mg PO TID PRN Nausea And 02/01/24 02/01/24 History Vomiting thiamine HCl (vitamin B1) 100 mg 100 mg PO DAILY 02/01/24 02/01/24 History tablet tramadol 50 mg tablet 25 mg PO HS 02/01/24 02/01/24 History Past Med/Surg History Problem List (Updated 02/01/24 @ 01:39 by Gianluca Isbell MD) Confusion BLANCO (acute kidney injury) (Acute) Postlaminectomy syndrome of lumbosacral region Hyponatremia (Acute) Dementia (Acute) QT prolongation Delirium due to another medical condition, acute, hyperactive Agitation Alcohol abuse (Acute) AMS (altered mental status) (Acute) Major neurocognitive disorder as late effect of traumatic brain injury with behavioral disturbance Frequent falls (Acute) Altered mental status (Acute) Confusion Right ureteral stone Encounter for pre-operative examination Anemia (Acute) IRON DEFICIENT ANEMIA AND REC'D IV IRON 10/06. Baseline HGB since 2017 ~9 HLD (hyperlipidemia) Gout Back pain FROM ACCIDENT AND 7 DIFFERENT FX AND FUSION GERD (gastroesophageal reflux disease) (Acute) Anxiety History of renal stone (Acute) S/P cysto/litho/stent 10/07 History of diverticulitis of colon remote Medical History (Updated 02/01/24 @ 01:39 by Gianluca Isbell MD) History of fracture of right ankle Hx of fracture of skull 7 FX AND HAS SOME PROBLEMS WITH MEMORY Gastric ulcer Hydronephrosis B/L per KUB 10/12/18 Surgical History S/P ureteral stent placement History of cystoscopy W/ LITHO/BASKET STONE EXTRACTION - 10/07/18 [facility]. LMA #5. History of surgery on left wrist History of arthroscopy of right shoulder Hx of right knee surgery S/P insertion of intrathecal pump FOLLOW WITH DR LAKIA PACKER FROM [place] History of back surgery UPPER BACK FUSION, 7 DIFFERENT FRACTURES AND MULTIPLE SURGERIES AND IS FUSED multiple revisions H/O inguinal hernia repair H/O lithotripsy S/P exploratory laparotomy (Unknown) 2010 RUPTURED DIVERTICULI S/P appendectomy (Unknown) S/P cholecystectomy (Unknown) S/P gastric bypass mike en y (2010) Family History Mother DM type 2 (diabetes mellitus, type 2) Father DM type 2 (diabetes mellitus, type 2) Social History Smoking Status: Never smoker Tobacco Type: Smokeless Tobacco (Dip or Chew) Second Hand Exposure: No; Do You Dip or Chew Tobacco: Yes; Hx Alcohol Use: No (Previous alcohol use- not currently drinking) Hx Substance Use: No Preferred Language: [place] Communication Ability: Impaired Communication Ability Comment: Unable to write per spouse & reading difficulty Visual Impairment: No Limitations Review Nurse Required: No Beliefs That Will Affect Care: None Current Living Situation: Spouse Current Living Situation Comment: lives with Feels Safe at Home: Yes Safety Concerns: Feels Safe At This Time Assistive Devices: Wheelchair Assistive Devices Comment: Wheelchair when out of house Review of Systems Review of Systems: All systems reviewed & are unremarkable except as noted in HPI & below Physical Exam Physical Exam: General- Not in distress. Head- atraumatic Eyes- PERRL. ENT- oropharynx clear Neck- supple, no JVD. Lungs- clear to auscultation no wheezing or crackles Heart- regular rate and rhythm; no murmur, no gallop. Abdomen- normal bowel sounds, soft, nontender, no distension Extremities- no pretibial edema, no erythema seen Neuro- alert, oriented x 2; PERRL, no facial palsy; no dysarthria; moves extremities Results & Data Results & Data Vital Signs (Past 12 Hours) Vital Signs Temp Pulse Resp BP Pulse Ox O2 Del Method 01/31/24 21:30 77 01/31/24 21:27 97 Room Air 01/31/24 21:05 36.6 C 69 16 146/85 H 98 Room Air Diagnostic Findings Laboratory Results WBC 5.86 K/ul (4.8-10.8) 01/31/24 21:33 RBC 4.10 M/uL (4.70-6.10) L 01/31/24 21:33 Hgb 12.5 g/dl (14.0-18.0) L 01/31/24 21:33 Hct 37.1 % (42.0-52.0) L 01/31/24 21:33 MCV 90.5 fL (80.0-100.0) 01/31/24 21:33 MCH 30.5 pg (25.0-34.0) 01/31/24 21:33 MCHC 33.7 g/dL (32.0-36.0) 01/31/24 21: RDW Std Deviation 44.0 fL (36.4-46.3) 01/31/24 21: RDW Coeff of Rogerio 13.2 % (11.5-14.5) 01/31/24 21: Plt Count 225 K/uL (130-400) 01/31/24 21: MPV 9.5 fL (9.4-12.4) 01/31/24: Immature Gran % (Auto) 0.2 % 01/31/24 21: Neut % (Auto) 71.0 % 01/31/24 21: Lymph % (Auto) 19.5 % 01/31/24: Douglas % (Auto) 8.7 % 01/31/24: Eos % (Auto) 0.3 % 01/31/24: Baso % (Auto) 0.3 % 01/31/24: Neut # (Auto) 4.16 K/uL (1.40-6.50) 01/31/24 21: Lymph # (Auto) 1.14 K/uL (1.20-3.40) L 01/31/24 21: Douglas # (Auto) 0.51 K/uL (0.11-0.59) 01/31/24 21: Eos # (Auto) 0.02 K/uL (0.00-0.50) 01/31/24 21: Baso # (Auto) 0.02 K/uL (0.00-0.20) 01/31/24 21: Immature Gran # (Auto) 0.01 K/uL (0.01-0.20) 01/31/24 21: Sodium 141 mmol/L (136-145) 01/31/24 21: Potassium 4.0 mmol/L (3.5-5.1) 01/31/24 21: Chloride 104 mmol/L (98-107) 01/31/24 21: Carbon Dioxide 30 mmol/L (21-32) 01/31/24 21:33 Anion Gap 7 (3-11) 01/31/24: BUN 18 mg/dl (6-23) 01/31/24 21: Creatinine 1.61 mg/dl (0.6-1.4) H 01/31/24 21:33 Est Cr Clr Drug Dosing Not Reportable 01/31/24 21: eGFR 48.66 01/31/24 21:33 BUN/Creatinine Ratio 11.2 (10-20) 01/31/24 21: Glucose 114 mg/dl (70-99(Fasting)) H 01/31/24 21:33 Calcium 8.6 mg/dl (8.6-10.3) 01/31/24 21:33 Total Bilirubin 0.7 mg/dl (0.2-1.0) 01/31/24 21: AST 20 U/L (13-39) 01/31/24 21: ALT 13 U/L (7-52) 01/31/24 21: Alkaline Phosphatase 128 U/L (34-104) H 01/31/24 21:33 Troponin I High Sens 5.4 pg/ml (0-20) 01/31/24 21: Total Protein 5.9 gm/dl (6.0-8.3) L 01/31/24 21:33 Albumin 3.6 gm/dl (3.4-5.0) 01/31/24 21: Globulin 2.3 gm/dl (2.5-4.0) L 01/31/24 21: Albumin/Globulin Ratio 1.6 (0.9-2) 01/31/24 21:33 Lipase 31 U/L (11-82) 01/31/24 21:33 Procalcitonin 0.04 ng/ml (0-0.5) 01/31/24 21:33 Urine Color See Comment 01/31/24 23:00 Urine Appearance Turbid (Clear) A 01/31/24 23:00 Urine pH Not Reportable 01/31/24 23:00 Ur Specific [place] 1.021 (1.000-1.030) 01/31/24 23:00 Urine Protein Not Reportable 01/31/24 23:00 Urine Glucose (UA) Not Reportable 01/31/24 23:00 Urine Ketones Not Reportable 01/31/24 23:00 Urine Blood Not Reportable 01/31/24 23:00 Urine Nitrite Not Reportable 01/31/24 23:00 Urine Bilirubin Not Reportable 01/31/24 23:00 Urine Urobilinogen Not Reportable 01/31/24 23:00 Ur Leukocyte Esterase Not Reportable 01/31/24 23:00 Urine RBC 11-20 /hpf (0-2) H 01/31/24 23:00 Urine WBC 6-10 /hpf (0-5) H 01/31/24 23:00 Ur Epithelial Cells 0-2 /hpf (0-2) 01/31/24 23:00 Triple Phos Crystals Present (None Prsent) A 01/31/24 23:00 Amorphous Sediment Present (None Prsent) A 01/31/24 23:00 Urine Bacteria 4+ (None Seen) H 01/31/24 23:00 Adenovirus (PCR) Not Detected (NotDetected) 01/31/24 21:35 B. pertussis DNA (PCR) Not Detected (NotDetected) 01/31/24 21:35 B.parapertussis DNA PCR Not Detected (NotDetected) 01/31/24 21:35 C. pneumoniae DNA (PCR) Not Detected (NotDetected) 01/31/24 21:35 Coronavirus OC43 (PCR) Not Detected (NotDetected) 01/31/24 21:35 Coronavirus HKU1 (PCR) Not Detected (NotDetected) 01/31/24 21:35 Coronavirus 229E (PCR) Not Detected (NotDetected) 01/31/24 21:35 SARS-CoV-2 (PCR) Not Detected (NotDetected) 01/31/24 21:35 Coronavirus NL63 (PCR) Not Detected (NotDetected) 01/31/24 21:35 Human Metapneumovir PCR Not Detected (NotDetected) 01/31/24 21:35 Influenza Type A (PCR) Not Detected (NotDetected) 01/31/24 21:35 Influenza Type B (PCR) Not Detected (NotDetected) 01/31/24 21:35 M. pneumoniae (PCR) Not Detected (NotDetected) 01/31/24 21:35 Parainfluenza 1 (PCR) Not Detected (NotDetected) 01/31/24 21:35 Parainfluenza 2 (PCR) Not Detected (NotDetected) 01/31/24 21:35 Parainfluenza 3 (PCR) Not Detected (NotDetected) 01/31/24 21:35 Parainfluenza 4 (PCR) Not Detected (NotDetected) 01/31/24 21:35 RSV (PCR) Not Detected (NotDetected) 01/31/24 21:35 Entero/Rhino (PCR) Not Detected (NotDetected) 01/31/24 21:35 ECG Additional Comments: ECG. Sinus rhythm with occasional PVCs with rate of 76. Right bundle branch block. QTc 495. Code Status & VTE Plan VTE Prophylaxis Plan VTE Prophylaxis will be ordered: Yes
[2024-02-01] MEDS ORDERED: ACETAMINOPHEN 325 MG TAB PO PRN (03:56)
[2024-02-01] MEDS ORDERED: NITROGLYCERIN SL 0.4 MG/TAB TAB SL PRN (03:56)
[2024-02-01] MEDS: SODIUM CHLORIDE 0.9% 1,000 ML IV SCH (04:14)
[2024-02-01 06:10] LABS: Basophils # (auto) 0.03 K/uL (0.00-0.20); Basophils % (auto) 0.5 %; Eosinophils # (auto) 0.08 K/uL (0.00-0.50); Eosinophils % (auto) 1.3 %; Hematocrit (blood only) 34.7 % (42.0-52.0); Hemoglobin 11.2 g/dl (14.0-18.0); Immature Granulocytes # (auto) 0.02 K/uL (0.01-0.20); Immature Granulocytes % (auto) 0.3 %; Lymphocytes # (auto) 1.41 K/uL (1.20-3.40); Lymphocytes % (auto) 22.2 %; Mean Corpuscular Hemoglobin 29.8 pg (25.0-34.0); Mean Corpuscular Hgb Conc 32.3 g/dL (32.0-36.0); Mean Corpuscular Volume 92.3 fL (80.0-100.0); Monocytes # (auto) 0.48 K/uL (0.11-0.59); Monocytes % (auto) 7.5 %; Neutrophils # (auto) 4.34 K/uL (1.40-6.50); Neutrophils % (auto) 68.2 %; Platelet Count 189 K/uL (130-400); RDW Coefficient of Variation 13.2 % (11.5-14.5); RDW Standard Deviation 44.5 fL (36.4-46.3); Red Blood Count 3.76 M/uL (4.70-6.10); White Blood Count 6.36 K/ul (4.8-10.8)
[2024-02-01 06:21] LABS: BUN Creatinine Ratio 11.2 (10-20); Calcium 8.5 mg/dl (8.6-10.3); Creatinine Clr Calc Pharmacy 53.9 ml/min; Magnesium 1.8 mg/dl (1.7-2.4); Potassium 3.6 mmol/L (3.5-5.1)
--- NOTE | 2024-02-01 07:36 | Electrocardiogram Report ---
Test Reason : Blood Pressure : */* mmHG Vent. Rate : 76 BPM Atrial Rate : 76 BPM P-R Int : 132 ms QRS Dur : 144 ms QT Int : 440 ms P-R-T Axes : 68 31 46 degrees QTcB Int : 495 ms Sinus rhythm with occasional Premature ventricular complexes Right bundle branch block Abnormal ECG When compared with ECG of 16-Dec-2023 07:09, Premature ventricular complexes are now Present Confirmed by Mahesh Sebastian ([id number]) on 02/01/2024 7:35:57 AM Referred By: REFERRED SELF Confirmed By: Mahesh Sebastian
--- NOTE | 2024-02-01 08:02 | XRay Report ---
SINGLE VIEW CHEST CLINICAL HISTORY: Generalized weakness. FINDINGS: An AP, portable, upright chest radiograph is compared to study dated 11/29/2023 and correlat ed with chest CT dated 11/06/2023. The heart is enlarged. The pulmonary vasculature is noncongested. Ch ronic interstitial thickening is similar to previous. There is mild bibasilar scarring/atelectasis. A calcified granuloma is seen in the left upper lobe. No airspace consolidation or pleural effusion is identified. No pneumothorax is seen. The bony thorax is grossly intact. Fusion hardware is partially imaged in the lumbar spine. IMPRESSION: Mild cardiomegaly with no active disease in the chest. ACT 112: Negative or not required by law. Electronically signed by: Tamir Brunson M.D. 02/01/2024 8:01 AM
[2024-02-01] MEDS: ATORVASTATIN 10 MG TAB PO SCH (09:00)
[2024-02-01] MEDS: allopurinoL 300 MG TAB PO SCH (09:00)
[2024-02-01] MEDS: FOLIC ACID 1 MG TAB PO SCH (09:01)
[2024-02-01] MEDS: MEMANTINE HCL 10 MG TAB PO SCH (09:01)
[2024-02-01] MEDS: FAMOTIDINE 40 MG TABLET PO SCH (09:01)
[2024-02-01] MEDS: THIAMINE HCL 100 MG TAB PO SCH (09:02)
[2024-02-01] MEDS: PANTOprazole 40 MG TAB PO SCH (09:02)
[2024-02-01] MEDS: NICOTINE 7 MG/24 HR TDSY TD SCH (09:02)
[2024-02-01] MEDS: CYCLOBENZAPRINE HCL 10 MG TAB PO SCH (09:36)
[2024-02-01] MEDS: HEPARIN SOD 5,000 UNIT/0.5 ML VIAL SQ SCH (09:36)
--- NOTE | 2024-02-01 11:38 | Communication Note ---
Date of Service: February 01, 2024 Patient at bedside with . Patient reports doing much better, confirmed by Urinating this morning, more clear and without blood per patient Vs stable labs baseline anemia, cr improved 1.62 to 1.52 this am #Acute complicated UTI Continue abx Follow Urine cx advance diet
[2024-02-01] MEDS: traMADol HCL 50 MG TABLET PO SCH (20:51)
[2024-02-01] MEDS: OLANZapine 5 MG TABLET PO SCH (20:52)
[2024-02-01] MEDS: MIRTAZAPINE TAB 15 MG TAB PO SCH (20:52)
[2024-02-01] MEDS: cefTRIAXone SODIUM 2,000 MG/50 ML BAG IV SCH (22:36)
[2024-02-02 06:34] LABS: Hematocrit (blood only) 34.5 % (42.0-52.0); Hemoglobin 11.2 g/dl (14.0-18.0); Mean Corpuscular Hemoglobin 30.1 pg (25.0-34.0); Mean Corpuscular Hgb Conc 32.5 g/dL (32.0-36.0); Mean Corpuscular Volume 92.7 fL (80.0-100.0); Mean Platelet Volume 9.8 fL (9.4-12.4); Platelet Count 201 K/uL (130-400); RDW Coefficient of Variation 13.2 % (11.5-14.5); RDW Standard Deviation 45.1 fL (36.4-46.3); Red Blood Count 3.72 M/uL (4.70-6.10)
[2024-02-02 06:59] LABS: BUN Creatinine Ratio 11.5 (10-20); Calcium 8.6 mg/dl (8.6-10.3); Potassium 3.6 mmol/L (3.5-5.1)
[2024-02-02] MEDS: ONDANSETRON INJ 2 MG/ML 2 ML VIAL IV PRN (09:51)
--- NOTE | 2024-02-02 14:09 | Hospitalist Progress Note ---
Date of Service February 02, 2024 Assessment & Plan (1) Confusion: Plan: Mr Thomas is 58-year-old male with past medical history significant for gout, right upper lobe pulmonary nodule, CAD, GERD, obesity s/p gastric bypass, GI bleed from gastric bypass, diverticulitis, CKD stage III, iron deficiency anemia, anxiety, history of kidney stones who lives at home with his was brought in because of confusion and found to have UTI. Patient has moderate to advanced dementia. Per patient seems more confused than usual. Last 2- 3 days he was having nausea and has been dry heaving and not eating much. Yesterday they went to [place] as his pain pump has been getting tapered off. #Acute encephalopathy 2/2 infection #Moderate to advanced dementia acute cystitis contributing likely to mental status Possible cause of his confusion Cotninue Rocephin Continue olanzapine and memantine and Remeron Monitor for delirium PT OT when stable #acute complicated cystitis #Gross hematuria 2/2 infection #Acute urinary retention continue CTX at this time Culture with proteus #BLANCO resolved Presented with creatinine 1.6 Baseline creatinine around 1 improved intake Avoid nephrotoxic agents Follow repeat labs in a.m. #Chronic pain Because of his injury in the past Currently pain pump is getting tapered off because of his dementia Continue pain meds as needed #Chronic anemia Continue vitamin supplements On B12 shots #Nonobstructive CAD #Hypertension On statin Monitor blood pressure #GERD On famotidine Protonix #Gout On allopurinol #Prior gastric bypass surgery Follow-up with PCP DVT prophylaxis Heparin subcu Disposition Med/telemetry Full code Admission and Anticipated Discharge Date Admission Date: February 01, 2024 Subjective resting on exam, awakens easily--some confusion upon awakening, but more related to patient trying to gather self upon wakening. Denies chest pain, sob, urination concerns States he feels a bit tired but nothing localized Physical Exam Constitutional: WD/WN, vitals as above Respiratory: normal respiratory effort, lungs clear to auscultation Cardiovascular: RRR, no murmur, no edema Musculoskeletal: no cyanosis or clubbing, extremities motor strength 5/5 Results & Data Results & Data Vital Signs (Past 12 Hours) Vital Signs Temp Pulse Resp BP BP Pulse Ox O2 Del Method 02/02/24 11:41 36.4 C L 79 18 120/78 98 Room Air 02/02/24 07:55 36.5 C 67 17 120/79 99 Room Air 02/02/24 03:39 36.5 C 63 16 110/71 100 Room Air Laboratory Results Short CBC 02/02/24 Range/Units 05:58 WBC 5.60 (4.8-10.8) K/ul Hgb 11.2 L (14.0-18.0) g/dl Hct 34.5 L (42.0-52.0) % Plt Count 201 (130-400) K/uL BMP 02/02/24 05:58 Sodium 141 Potassium 3.6 Chloride 105 Carbon Dioxide 30 BUN 16 Creatinine 1.39 Glucose 80 Calcium 8.6 Medications Administered Home Medications Medication Instructions Recorded Confirmed Last Taken allopurinol 300 mg tablet 300 mg PO DAILY 02/01/24 02/01/24 Unknown atorvastatin 10 mg tablet 10 mg PO DAILY 02/01/24 02/01/24 Unknown copper 2 mg tablet 2 mg PO DAILY 02/01/24 02/01/24 Unknown cyclobenzaprine 10 mg tablet 10 mg PO BID 02/01/24 02/01/24 Unknown famotidine 40 mg tablet 40 mg PO DAILY 02/01/24 02/01/24 Unknown folic acid 1 mg tablet 1 mg PO DAILY 02/01/24 02/01/24 Unknown memantine 10 mg tablet 10 mg PO BID 02/01/24 02/01/24 Unknown mirtazapine 15 mg tablet 15 mg PO HS 02/01/24 02/01/24 Unknown olanzapine 5 mg tablet 5 mg PO HS 02/01/24 02/01/24 Unknown oxycodone-acetaminophen 5 mg-325 1 tab PO Q4H PRN Pain 02/01/24 02/01/24 Unknown mg tablet pantoprazole 40 mg tablet,delayed 40 mg PO DAILY 02/01/24 02/01/24 Unknown release promethazine 12.5 mg tablet 12.5 mg PO TID PRN Nausea And 02/01/24 02/01/24 Unknown Vomiting thiamine HCl (vitamin B1) 100 mg 100 mg PO DAILY 02/01/24 02/01/24 Unknown tablet tramadol 50 mg tablet 25 mg PO HS 02/01/24 02/01/24 Unknown Active Medications Generic Name Dose Route Start Last Admin Trade Name Freq PRN Reason Stop Dose Admin Allopurinol 300 mg 02/01/24 09:00 02/02/24 09:32 Allopurinol 300 Mg Tab PO 03/02/24 08:59 300 mg DAILY CARL Administration Atorvastatin Calcium 10 mg 02/01/24 09:00 02/02/24 09:32 Atorvastatin 10 Mg Tab PO 03/02/24 08:59 10 mg DAILY CARL Administration Cyclobenzaprine HCl 10 mg 02/01/24 09:00 02/02/24 09:36 Cyclobenzaprine Hcl 10 Mg Tab PO 03/02/24 08:59 10 mg BID CARL Administration Famotidine 40 mg 02/01/24 09:00 02/02/24 09:32 Famotidine 40 Mg Tablet PO 03/02/24 08:59 40 mg DAILY CARL Administration Folic Acid 1 mg 02/01/24 09:00 02/02/24 09:32 Folic Acid 1 Mg Tab PO 03/02/24 08:59 1 mg DAILY CARL Administration Heparin Sodium (Porcine) 5,000 units 02/01/24 09:00 02/02/24 09:33 Heparin Sod 5,000 Unit/0.5 Ml Vial SQ 03/02/24 08:59 5,000 units Q12 CARL Administration Ceftriaxone Sodium 2,000 mg in 50 mls @ 100 mls/hr 02/01/24 22:30 02/01/24 23:05 Rocephin IV 02/11/24 22:29 Infused Q24H CARL Infusion Memantine 10 mg 02/01/24 09:00 02/02/24 09:32 Memantine Hcl 10 Mg Tab PO 03/02/24 08:59 10 mg BID CARL Administration Mirtazapine 15 mg 02/01/24 21:00 02/01/24 20:52 Mirtazapine Tab 15 Mg Tab PO 03/02/24 20:59 15 mg HS CARL Administration Miscellaneous 1 each 02/01/24 08:59 02/02/24 09:33 Remove Nicoderm Patch N/A 03/02/24 08:58 1 each [id number] CARL Administration Nicotine 1 patch 02/01/24 09:00 02/02/24 09:32 Nicotine 7 Mg/24 Hr Tdsy TD 03/02/24 08:59 1 patch QAM CARL Administration Olanzapine 5 mg 02/01/24 21:00 02/01/24 20:52 Olanzapine 5 Mg Tablet PO 03/02/24 20:59 5 mg HS CARL Administration Ondansetron HCl 4 mg 02/01/24 03:56 02/02/24 09:51 Ondansetron Inj 2 Mg/Ml 2 Ml Vial IV 03/02/24 03:55 4 mg Q6H PRN Administration Nausea Pantoprazole Sodium 40 mg 02/01/24 09:00 02/02/24 09:32 Pantoprazole 40 Mg Tab PO 03/02/24 08:59 40 mg DAILY CARL Administration Thiamine HCl 100 mg 02/01/24 09:00 02/02/24 09:32 Thiamine Hcl 100 Mg Tab PO 03/02/24 08:59 100 mg DAILY CARL Administration Tramadol HCl 25 mg 02/01/24 21:00 02/01/24 20:51 Tramadol Hcl 50 Mg Tablet PO 03/02/24 20:59 25 mg HS CARL Administration
[2024-02-02] MEDS: POLYETHYLENE (MIRALAX) 17 GM PACK PO PRN (20:57)
[2024-02-03] MEDS: oxyCODONE/ACETAMINOPHEN 5mg/325mg TAB PO PRN (00:01)
[2024-02-03] MEDS: MELATONIN 3 MG TAB PO PRN (00:01)
[2024-02-03 07:28] LABS: Hematocrit (blood only) 32.3 % (42.0-52.0); Hemoglobin 10.8 g/dl (14.0-18.0); Mean Corpuscular Hemoglobin 30.2 pg (25.0-34.0); Mean Corpuscular Hgb Conc 33.4 g/dL (32.0-36.0); Mean Corpuscular Volume 90.2 fL (80.0-100.0); Mean Platelet Volume 10.1 fL (9.4-12.4); Platelet Count 196 K/uL (130-400); RDW Coefficient of Variation 13.1 % (11.5-14.5); RDW Standard Deviation 43.3 fL (36.4-46.3); Red Blood Count 3.58 M/uL (4.70-6.10); White Blood Count 5.24 K/ul (4.8-10.8)
[2024-02-03] MEDS: HYDROmorphone INJ 0.5 MG/0.5 ML SYR IV STA (11:32)
[2024-02-03] MEDS: oxyCODONE HCL IR 5 MG TAB (IMMEDIATE RELEASE) PO SCH (11:33)
--- NOTE | 2024-02-03 12:27 | XRay Report ---
KUB HISTORY: Acute generalized abdominal pain with constipation constipation, abd pain COMPARISON: 12/28/2023 FINDINGS: A pain pump projects over the abdominal left lower quadrant, unchanged. Right upper quadran t surgical clips. Renal shadows are obscured by bowel gas. Moderate to extensive colonic fecal retent ion. Nonobstructive bowel gas pattern. No renal calculi. No ureteral calculi. No pneumoperitoneum or pneumatosis. Degenerative and postoperative changes of the spine. No fracture. IMPRESSION: 1. Nonobstructive bowel gas pattern. 2. Moderate to extensive colonic fecal retention, similar to slightly decreased from prior. ACT 112: Negative or not required by law. The above report was generated using voice recognition software. It may contain grammatical, syntax o r spelling errors. Electronically signed by: Olman Bearden M.D. 02/03/2024 12:25 PM
--- NOTE | 2024-02-03 13:47 | Hospitalist Progress Note ---
Date of Service February 03, 2024 Assessment & Plan (1) Confusion: Plan: Mr Thomas is 58-year-old male with past medical history significant for gout, right upper lobe pulmonary nodule, CAD, GERD, obesity s/p gastric bypass, GI bleed from gastric bypass, diverticulitis, CKD stage III, iron deficiency anemia, anxiety, history of kidney stones who lives at home with his was brought in because of confusion and found to have UTI. Patient has moderate to advanced dementia. Per patient seems more confused than usual. Last 2- 3 days he was having nausea and has been dry heaving and not eating much. Patient doing better, however, with notable acute on chronic pain and abdominal cramping. Discussion with revealed that patient is on scheduled oxy 10mg bid at home and that patient sometimes is not reliable in reporting bowel movements. Symptoms seemed to have resolved with resumption of pain medicine. Plan to dispo tomorrow if symptoms better controlled and bowel movement successful. Will continue on po abx. #Fecal retention Home routine not in place: reports 2 colace in am, prune juice at night Bisacodyl x1 Resume colace in am #Acute on chronic pain Because of his injury in the past Currently pain pump is getting tapered off because of his dementia Patient is on home Oxycodone 10mg BID Continue percocet prn for breakthrough suspect some of the abdominal cramping 2/2 withdrawal as symptoms resolved with resumption of home regimen #Acute encephalopathy 2/2 infection #Moderate to advanced dementia acute cystitis contributing likely to mental status Possible cause of his confusion Cotninue Rocephin Continue olanzapine and memantine and Remeron Monitor for delirium PT OT when stable #acute complicated cystitis #Gross hematuria 2/2 infection #Acute urinary retention continue CTX at this time Culture with proteus #BLANCO resolved Presented with creatinine 1.6 Baseline creatinine around 1 improved intake Avoid nephrotoxic agents Follow repeat labs in a.m. #Chronic anemia Continue vitamin supplements On B12 shots #Nonobstructive CAD #Hypertension On statin Monitor blood pressure #GERD On famotidine Protonix #Gout On allopurinol #Prior gastric bypass surgery Follow-up with PCP DVT prophylaxis Heparin subcu Disposition Med/telemetry Full code Admission and Anticipated Discharge Date Admission Date: February 01, 2024 Subjective Patient with severe back and abdominal pain this morning Reports he feels notable cramping and just generally unwell at bedside--able to clarify home pain regimen while morphine pump being titrated patient is on Oxycodone 10mg BID scheduled, with the percocet prn also doesn't think he had a bowel movement though patient reports bm--concern maybe withdrawal/constipation/chronic pain contributing to patient presentation this am Physical Exam Constitutional: alert, but appears uncomfortable Respiratory: normal respiratory effort, lungs clear to auscultation Cardiovascular: RRR, no murmur, no edema Gastrointestinal (Abdomen): firm RLQ, bulky, no guarding, some tenderness Results & Data Results & Data Vital Signs (Past 12 Hours) Vital Signs Temp Pulse Pulse Resp BP Pulse Ox O2 Del Method 02/03/24 11:25 36.2 C L 87 18 116/73 100 Room Air 02/03/24 07:45 36.3 C L 73 18 141/79 H 100 Room Air 02/03/24 07:30 60 02/03/24 03:17 36.6 C 74 20 116/78 98 Room Air Laboratory Results Short CBC 02/03/24 Range/Units 06:23 WBC 5.24 (4.8-10.8) K/ul Hgb 10.8 L (14.0-18.0) g/dl Hct 32.3 L (42.0-52.0) % Plt Count 196 (130-400) K/uL Medications Administered Home Medications Medication Instructions Recorded Confirmed Last Taken allopurinol 300 mg tablet 300 mg PO DAILY 02/01/24 02/01/24 Unknown atorvastatin 10 mg tablet 10 mg PO DAILY 02/01/24 02/01/24 Unknown copper 2 mg tablet 2 mg PO DAILY 02/01/24 02/01/24 Unknown cyclobenzaprine 10 mg tablet 10 mg PO BID 02/01/24 02/01/24 Unknown famotidine 40 mg tablet 40 mg PO DAILY 02/01/24 02/01/24 Unknown folic acid 1 mg tablet 1 mg PO DAILY 02/01/24 02/01/24 Unknown memantine 10 mg tablet 10 mg PO BID 02/01/24 02/01/24 Unknown mirtazapine 15 mg tablet 15 mg PO HS 02/01/24 02/01/24 Unknown olanzapine 5 mg tablet 5 mg PO HS 02/01/24 02/01/24 Unknown oxycodone-acetaminophen 5 mg-325 1 tab PO Q4H PRN Pain 02/01/24 02/01/24 Unknown mg tablet pantoprazole 40 mg tablet,delayed 40 mg PO DAILY 02/01/24 02/01/24 Unknown release promethazine 12.5 mg tablet 12.5 mg PO TID PRN Nausea And 02/01/24 02/01/24 Unknown Vomiting thiamine HCl (vitamin B1) 100 mg 100 mg PO DAILY 02/01/24 02/01/24 Unknown tablet tramadol 50 mg tablet 25 mg PO HS 02/01/24 02/01/24 Unknown Active Medications Generic Name Dose Route Start Last Admin Trade Name Freq PRN Reason Stop Dose Admin Allopurinol 300 mg 02/01/24 09:00 02/03/24 09:27 Allopurinol 300 Mg Tab PO 03/02/24 08:59 300 mg DAILY CARL Administration Atorvastatin Calcium 10 mg 02/01/24 09:00 02/03/24 09:27 Atorvastatin 10 Mg Tab PO 03/02/24 08:59 10 mg DAILY CARL Administration Cyclobenzaprine HCl 10 mg 02/01/24 09:00 02/03/24 09:31 Cyclobenzaprine Hcl 10 Mg Tab PO 03/02/24 08:59 10 mg BID CARL Administration Famotidine 40 mg 02/01/24 09:00 02/03/24 09:28 Famotidine 40 Mg Tablet PO 03/02/24 08:59 40 mg DAILY CARL Administration Folic Acid 1 mg 02/01/24 09:00 02/03/24 09:27 Folic Acid 1 Mg Tab PO 03/02/24 08:59 1 mg DAILY CARL Administration Heparin Sodium (Porcine) 5,000 units 02/01/24 09:00 02/03/24 09:31 Heparin Sod 5,000 Unit/0.5 Ml Vial SQ 03/02/24 08:59 5,000 units Q12 CARL Administration Ceftriaxone Sodium 2,000 mg in 50 mls @ 100 mls/hr 02/01/24 22:30 02/02/24 21:38 Rocephin IV 02/11/24 22:29 Infused Q24H CARL Infusion Melatonin 3 mg 02/02/24 22:43 02/03/24 00:01 Melatonin 3 Mg Tab PO 03/03/24 22:42 3 mg HS PRN Administration Sleep Memantine 10 mg 02/01/24 09:00 02/03/24 09:27 Memantine Hcl 10 Mg Tab PO 03/02/24 08:59 10 mg BID CARL Administration Mirtazapine 15 mg 02/01/24 21:00 02/02/24 21:01 Mirtazapine Tab 15 Mg Tab PO 03/02/24 20:59 15 mg HS CARL Administration Miscellaneous 1 each 02/01/24 08:59 02/03/24 09:28 Remove Nicoderm Patch N/A 03/02/24 08:58 1 each DAILY@0859 CARL Administration Nicotine 1 patch 02/01/24 09:00 02/03/24 09:28 Nicotine 7 Mg/24 Hr Tdsy TD 03/02/24 08:59 1 patch QAM CARL Administration Olanzapine 5 mg 02/01/24 21:00 02/02/24 21:00 Olanzapine 5 Mg Tablet PO 03/02/24 20:59 5 mg HS CARL Administration Ondansetron HCl 4 mg 02/01/24 03:56 02/02/24 20:57 Ondansetron Inj 2 Mg/Ml 2 Ml Vial IV 03/02/24 03:55 4 mg Q6H PRN Administration Nausea Oxycodone HCl 10 mg 02/03/24 11:15 02/03/24 11:33 Oxycodone Hcl Ir 5 Mg Tab (Immediate Release) PO 02/17/24 11:14 10 mg BID CARL Administration Oxycodone/Acetaminophen 1 tab 02/01/24 03:56 02/03/24 09:31 Oxycodone/Acetaminophen 5mg/325mg Tab PO 02/15/24 03:55 1 tab Q4H PRN Administration Pain Pantoprazole Sodium 40 mg 02/01/24 09:00 02/03/24 09:27 Pantoprazole 40 Mg Tab PO 03/02/24 08:59 40 mg DAILY CARL Administration Polyethylene Glycol 17 gm 02/01/24 03:56 02/02/24 20:57 Polyethylene (Miralax) 17 Gm Pack PO 03/02/24 03:55 17 gm DAILY PRN Administration Constipation Thiamine HCl 100 mg 02/01/24 09:00 02/03/24 09:27 Thiamine Hcl 100 Mg Tab PO 03/02/24 08:59 100 mg DAILY CARL Administration Tramadol HCl 25 mg 02/01/24 21:00 02/02/24 20:59 Tramadol Hcl 50 Mg Tablet PO 03/02/24 20:59 25 mg HS CARL Administration
[2024-02-03] MEDS: DICYCLOMINE HCL 10 MG CAP PO ONE (14:00)
[2024-02-03] MEDS: bisacodyL 5 MG TABEC PO ONE (14:00)
[2024-02-04] MEDS: cefTRIAXone SODIUM 2,000 MG/50 ML BAG IV SCH (13:15)
[2024-02-04] MEDS: DOCUSATE SODIUM 100 MG CAP PO SCH (13:16)
--- NOTE | 2024-02-04 13:48 | XRay Report ---
XR KUB/Abdomen 1 view CLINICAL HISTORY: Constipation TECHNIQUE: 1 view of the abdomen was obtained. Comparison: Comparison is made to abdomen radiograph 02/03/2024 FINDINGS: Stable hardware. Degenerative changes are seen in the visualized skeleton. The bowel gas pattern is n onobstructive. A moderate amount of stool is noted within the large bowel. IMPRESSION: Moderate stool burden without evidence of fecal impaction. ACT 112: Negative or not required by law. Electronically signed by: Ritesh Morgan M.D. 02/04/2024 1:47 PM
--- NOTE | 2024-02-04 15:33 | Hospitalist Progress Note ---
Date of Service February 04, 2024 Assessment & Plan (1) Confusion: Plan: Mr Thomas is 58-year-old male with past medical history significant for gout, right upper lobe pulmonary nodule, CAD, GERD, obesity s/p gastric bypass, GI bleed from gastric bypass, diverticulitis, CKD stage III, iron deficiency anemia, anxiety, history of kidney stones who lives at home with his was brought in because of confusion and found to have UTI. Patient has moderate to advanced dementia. Per patient seems more confused than usual. Last 2- 3 days he was having nausea and has been dry heaving and not eating much. Fecal retention --KUB:Nonobstructive bowel gas pattern. Moderate to extensive colonic fecal retention, similar to slightly decreased from prior. Continue bowel regimen Encouraged to ambulate Acute on chronic pain Currently pain pump is getting tapered off because of his dementia Patient is on home Oxycodone 10mg BID Continue percocet prn for breakthrough Acute metabolic encephalopathy Moderate to advanced dementia Urinary tract infection--POA Urine culture grew Proteus Blood cultures negative to date Continue Rocephin Continue olanzapine and memantine and Remeron Monitor for delirium Reorient frequently BLANCO Creatinine levels improved with IV fluids Encourage to increase oral fluid intake Monitor renal function Avoid nephrotoxic agents as able Chronic anemia Hemoglobin at baseline Continue vitamin supplements On B12 shots Nonobstructive CAD Hypertension On statin Monitor blood pressure GERD On famotidine, Protonix Gout On allopurinol Prior gastric bypass surgery Follow-up with PCP DVT Px: Heparin SQ CODE STATUS Full code Disposition Plan to discharge home as able Admission and Anticipated Discharge Date Admission Date: February 01, 2024 Subjective Patient is seen and examined at bedside States having nausea intermittently Less abdominal pain KUB today consistent with moderate constipation Denies any chest pain, dyspnea Poor historian Review of Systems Review of Systems: All systems reviewed & are unremarkable except as noted in Subjective Physical Exam Physical Exam: Physical Exam: Vitals signs as noted above General Appearance: Thin, frail, no apparent distress Head: normocephalic, Atraumatic Eyes: normal inspection, EOMI Neck: supple, Trachea midline Respiratory/Chest: Normal breath sounds, CTA, No accessory muscle use Cardiovascular: S1, S2, No murmur Abdomen/GI:Soft, mild tender, Bowel sounds present Extremities/Musculoskeletal:normal inspection, no edema Neurologic/Psych: Alert, awake, grossly no focal neurological deficits,+ dementia Skin: normal color, warm Results & Data Results & Data Vital Signs (Past 12 Hours) Vital Signs Temp Pulse Pulse Resp BP Pulse Ox O2 Del Method 02/04/24 12:54 36.4 C L 90 16 121/74 99 Room Air 02/04/24 08:16 36.5 C 105 H 16 132/92 97 Room Air 02/04/24 08:00 Room Air 02/04/24 07:27 62
[2024-02-04] MEDS: bisacodyL 5 MG TABEC PO ONE ×2 (18:33→18:34)
[2024-02-05] MEDS: bisacodyL 5 MG TABEC PO PRN (12:25)
--- NOTE | 2024-02-05 15:15 | Hospitalist Progress Note ---
Date of Service February 05, 2024 Assessment & Plan (1) Confusion: Plan: Mr Thomas is 58-year-old male with past medical history significant for gout, right upper lobe pulmonary nodule, CAD, GERD, obesity s/p gastric bypass, GI bleed from gastric bypass, diverticulitis, CKD stage III, iron deficiency anemia, anxiety, history of kidney stones who lives at home with his was brought in because of confusion and found to have UTI. Patient has moderate to advanced dementia. Per patient seems more confused than usual. Last 2- 3 days he was having nausea and has been dry heaving and not eating much. Fecal retention --KUB:Nonobstructive bowel gas pattern. Moderate to extensive colonic fecal retention, similar to slightly decreased from prior. Continue bowel regimen Encouraged to ambulate Added senna, enema as needed Monitor and replete electrolytes as needed Will consider Relistor if no improvement Acute on chronic pain Currently pain pump is getting tapered off because of his dementia Patient is on home Oxycodone 10mg BID Continue percocet prn for breakthrough Acute metabolic encephalopathy Moderate to advanced dementia Urinary tract infection--POA Urine culture grew Proteus Blood cultures negative to date Continue Rocephin Continue olanzapine and memantine and Remeron Monitor for delirium Reorient frequently BLANCO Creatinine levels improved with IV fluids Encourage to increase oral fluid intake Monitor renal function Avoid nephrotoxic agents as able Chronic anemia Hemoglobin at baseline Continue vitamin supplements On B12 shots Nonobstructive CAD Hypertension On statin Monitor blood pressure GERD On famotidine, Protonix Gout On allopurinol Prior gastric bypass surgery Follow-up with PCP DVT Px: Heparin SQ CODE STATUS Full code Disposition Plan to discharge home as able Admission and Anticipated Discharge Date Admission Date: February 01, 2024 Subjective Patient is seen and examined at bedside No significant abdominal pain today Still constipated Poor historian Denies any chest pain, dyspnea Review of Systems Review of Systems: All systems reviewed & are unremarkable except as noted in Subjective Physical Exam Physical Exam: Physical Exam: Vitals signs as noted above General Appearance: Thin, frail, no apparent distress Head: normocephalic, Atraumatic Eyes: normal inspection, EOMI Neck: supple, Trachea midline Respiratory/Chest: Normal breath sounds, CTA, No accessory muscle use Cardiovascular: S1, S2, No murmur Abdomen/GI:Soft, non tender, Bowel sounds present Extremities/Musculoskeletal:normal inspection, no edema Neurologic/Psych: Alert, awake, grossly no focal neurological deficits,+ dementia Skin: normal color, warm Results & Data Results & Data Vital Signs (Past 12 Hours) Vital Signs Temp Pulse Pulse Pulse Resp BP Pulse Ox 02/05/24 13:12 111 H 02/05/24 11:26 36.3 C L 81 18 112/74 99 02/05/24 07:57 36.3 C L 91 H 18 122/86 99 02/05/24 05:43 73 02/05/24 03:41 36.4 C L 71 18 125/84 96 O2 Del Method 02/05/24 13:12 02/05/24 11:26 Room Air 02/05/24 07:57 Room Air 02/05/24 05:43 02/05/24 03:41 Room Air
[2024-02-05] MEDS: SENNA 8.6 MG TAB PO SCH (19:51)
[2024-02-06 07:17] LABS: BUN Creatinine Ratio 8.5 (10-20); Calcium 9.2 mg/dl (8.6-10.3); Creatinine Clr Calc Pharmacy 50.5 ml/min; Magnesium 2.1 mg/dl (1.7-2.4); Potassium 3.8 mmol/L (3.5-5.1)
[2024-02-06] MEDS: SODIUM CHLORIDE 0.9% 1,000 ML IV ONE (10:49)
--- NOTE | 2024-02-06 15:02 | Hospitalist Progress Note ---
Date of Service February 06, 2024 Assessment & Plan (1) Confusion: Plan: Mr Thomas is 58-year-old male with past medical history significant for gout, right upper lobe pulmonary nodule, CAD, GERD, obesity s/p gastric bypass, GI bleed from gastric bypass, diverticulitis, CKD stage III, iron deficiency anemia, anxiety, history of kidney stones who lives at home with his was brought in because of confusion and found to have UTI. Patient has moderate to advanced dementia. Per patient seems more confused than usual. Last 2- 3 days he was having nausea and has been dry heaving and not eating much. Fecal retention --KUB:Nonobstructive bowel gas pattern. Moderate to extensive colonic fecal retention, similar to slightly decreased from prior. Continue bowel regimen Encouraged to ambulate Added senna, enema as needed Monitor and replete electrolytes as needed Minimize narcotic use as able Gentle IV fluids, replace electrolytes as needed Acute on chronic pain Currently pain pump is getting tapered off because of his dementia Patient is on home Oxycodone 10mg BID Minimize narcotics as able Acute metabolic encephalopathy Moderate to advanced dementia Urinary tract infection--POA Urine culture grew Proteus Blood cultures negative Continue Rocephin Continue olanzapine and memantine and Remeron Monitor for delirium Reorient frequently BLANCO Cr 1.7 today Will give gentle IV fluids Encourage to increase oral fluid intake Monitor renal function Avoid nephrotoxic agents as able Chronic anemia Hemoglobin at baseline Continue vitamin supplements On B12 shots Nonobstructive CAD Hypertension On statin Monitor blood pressure GERD On famotidine, Protonix Gout On allopurinol Prior gastric bypass surgery Follow-up with PCP DVT Px: Heparin SQ CODE STATUS Full code Disposition Plan to discharge home as able Admission and Anticipated Discharge Date Admission Date: February 01, 2024 Subjective Patient is seen and examined at bedside Subjectively feels well No bowel movement today Noted rising creatinine today Abdominal pain better Poor historian due to dementia Denies any chest pain, dyspnea, nausea, vomiting Review of Systems Review of Systems: All systems reviewed & are unremarkable except as noted in Subjective Physical Exam Physical Exam: Physical Exam: Vitals signs as noted above General Appearance: Thin, frail, no apparent distress Head: normocephalic, Atraumatic Eyes: normal inspection, EOMI Neck: supple, Trachea midline Respiratory/Chest: Normal breath sounds, CTA, No accessory muscle use Cardiovascular: S1, S2, No murmur Abdomen/GI:Soft, non tender, Bowel sounds present Extremities/Musculoskeletal:normal inspection, no edema Neurologic/Psych: Alert, awake, grossly no focal neurological deficits,+ dementia Skin: normal color, warm Results & Data Results & Data Vital Signs (Past 12 Hours) Vital Signs Temp Pulse Pulse Resp BP BP Pulse Ox 02/06/24 12:00 36.4 C L 71 12 126/85 100 02/06/24 09:12 36.3 C L 75 16 130/87 100 02/06/24 05:39 68 O2 Del Method 02/06/24 12:00 Room Air 02/06/24 09:12 Room Air 02/06/24 05:39 Laboratory Results [facility] 02/06/24 06:06 Sodium 141 Potassium 3.8 Chloride 102 Carbon Dioxide 33 H BUN 15 Creatinine 1.76 H Glucose 89 Calcium 9.2
[2024-02-06 23:34] VITALS: TEMP 97.9
[2024-02-07 07:13] VITALS: BP 119/79; RESP 15; O2SAT 98
[2024-02-07 09:19] LABS: BUN Creatinine Ratio 9.1 (10-20); Calcium 9.1 mg/dl (8.6-10.3); Creatinine Clr Calc Pharmacy 54.5 ml/min; Potassium 4.3 mmol/L (3.5-5.1)
--- NOTE | 2024-02-07 11:13 | Hospitalist Progress Note ---
Date of Service February 07, 2024 Assessment & Plan (1) Confusion: Plan: Mr Thomas is 58-year-old male with past medical history significant for gout, right upper lobe pulmonary nodule, CAD, GERD, obesity s/p gastric bypass, GI bleed from gastric bypass, diverticulitis, CKD stage III, iron deficiency anemia, anxiety, history of kidney stones who lives at home with his was brought in because of confusion and found to have UTI. Patient has moderate to advanced dementia. Per patient seems more confused than usual. Last 2- 3 days he was having nausea and has been dry heaving and not eating much. Fecal retention --KUB:Nonobstructive bowel gas pattern. Moderate to extensive colonic fecal retention, similar to slightly decreased from prior. Encouraged to ambulate Added senna, enema as needed Monitor and replete electrolytes as needed Minimize narcotic use as able Received IV fluids Resolved with enema yesterday Plan to continue bowel regimen Advised to minimize narcotic use Plan to discharge home today Acute on chronic pain Currently pain pump is getting tapered off because of his dementia Patient is on home Oxycodone 10mg BID Minimize narcotics as able Acute metabolic encephalopathy Moderate to advanced dementia Urinary tract infection--POA Urine culture grew Proteus Blood cultures negative Continue Rocephin Continue olanzapine and memantine and Remeron Monitor for delirium Reorient frequently Mental status back to baseline CKD II Baseline ~ 1.5 Received gentle IV fluids Encourage to increase oral fluid intake Monitor renal function Avoid nephrotoxic agents as able Chronic anemia Hemoglobin at baseline Continue vitamin supplements On B12 shots Nonobstructive CAD Hypertension On statin Monitor blood pressure GERD On famotidine, Protonix Gout On allopurinol Prior gastric bypass surgery Follow-up with PCP DVT Px: Heparin SQ CODE STATUS Full code Disposition Home Admission and Anticipated Discharge Date Admission Date: February 01, 2024 Subjective Patient is seen and examined at bedside Patient had a very large bowel movement after enema yesterday Nausea, vomiting, abdominal pain resolved Discussed with patient's over the phone Offers no new complaints today Plan to be discharged home today Review of Systems Review of Systems: All systems reviewed & are unremarkable except as noted in Subjective Physical Exam Physical Exam: Physical Exam: Vitals signs as noted above General Appearance: Thin, frail, no apparent distress Head: normocephalic, Atraumatic Eyes: normal inspection, EOMI Neck: supple, Trachea midline Respiratory/Chest: Normal breath sounds, CTA, No accessory muscle use Cardiovascular: S1, S2, No murmur Abdomen/GI:Soft, non tender, Bowel sounds present Extremities/Musculoskeletal:normal inspection, no edema Neurologic/Psych: Alert, awake, grossly no focal neurological deficits,+ dementia Skin: normal color, warm Results & Data Results & Data Vital Signs (Past 12 Hours) Vital Signs Temp Pulse Pulse Resp BP BP Pulse Ox 02/07/24 07:13 36.6 C 68 15 119/79 98 02/07/24 07:00 64 02/06/24 23:32 36.6 C 68 14 136/83 97 O2 Del Method 02/07/24 07:13 Room Air 02/07/24 07:00 02/06/24 23:32 Room Air Laboratory Results [facility] 02/07/24 08:01 Sodium 141 Potassium 4.3 Chloride 104 Carbon Dioxide 31 BUN 15 Creatinine 1.64 H Glucose 90 Calcium 9.1
--- NOTE | 2024-02-07 11:21 | Discharge Summary ---
Date of Service February 07, 2024 Admission HPI Per Admitting Provider 58-year-old male with past medical history significant for gout, right upper lobe pulmonary nodule, CAD, GERD, obesity s/p gastric bypass, GI bleed from gastric bypass, diverticulitis, CKD stage III, iron deficiency anemia, anxiety, history of kidney stones who lives at home with his was brought in because of confusion and found to have UTI. Patient has moderate to advanced dementia. Per patient seems more confused than usual. Last 2- 3 days he was having nausea and has been dry heaving and not eating much. Yesterday they went to [place] as his pain pump has been getting tapered off. His pain pump is getting tapered off because of his dementia. states he has couple more appointments and the pain pump will be completely off. Patient also had increasing back pain with pain pump being tapered off. Since coming from [place] he is sleeping a lot. And last couple of days he was not peeing much and today when he micturated he complained of pain and was crying and also there was blood in the urine which prompted to bring the patient to the ER. Patient can tell his name. Knows he is in the hospital. But could not tell current dates. Currently denies any headache. No chest pain. No shortness of breath. No back pain. No abdominal pain. Ambulates with assistance as per . As per patient currently on oxycodone twice daily and Percocet as needed for pain. Patient has history of alcoholism but states currently not drinking. Used to chew tobacco but currently abstaining it and on nicotine patch . Patient was admitted last month for confusion and agitation and falls and alcoholism. Past medical history. As mentioned above. Past surgical history. Amputation of the left second finger. Colonoscopy. EGD. Exploratory laparotomy. 7 skull fractures. 3 back fractures. Crush ankle from work injury. Lithotripsy. Laparoscope procedure liver. Laparoscopic gastric [place] bypass. Diagnostic laparoscopy. Laparoscopic cholecystectomy with cholangiogram. Appendectomy. Repair of inguinal hernia. Repair of cruciate ligament of the knee. Spinal fusion. Social history. . Subcu tobacco currently not chewing. History of alcoholism currently not drinking. No drug use Family history. Father had diabetes. Hypertension. Mother had diabetes. Hypertension. Heart disorder. Admission Exam Per Admitting Provider General- Not in distress. Head- atraumatic Eyes- PERRL. ENT- oropharynx clear Neck- supple, no JVD. Lungs- clear to auscultation no wheezing or crackles Heart- regular rate and rhythm; no murmur, no gallop. Abdomen- normal bowel sounds, soft, nontender, no distension Extremities- no pretibial edema, no erythema seen Neuro- alert, oriented x 2; PERRL, no facial palsy; no dysarthria; moves extremities Principal Diagnosis Acute metabolic encephalopathy Urinary tract infection Fecal retention Discharge Data Allergies Allergy/AdvReac Type Severity Reaction Status Date / Time Penicillins Allergy Severe SEE COMMENT Verified 11/30/23 01:21 erythromycin base Allergy Intermediate Itching Verified 11/30/23 01:21 indomethacin Allergy Intermediate HIVES Verified 11/30/23 01:21 neomycin Allergy Intermediate BLISTERS Verified 11/30/23 01:21 vancomycin Allergy Intermediate ITCHING--ALL Verified 11/30/23 01:21 MYCIN DRUGS fentanyl AdvReac Severe "DID NOT Verified 11/30/23 01:21 TOLERATE"-patch- "went nuts" ibuprofen AdvReac Severe Ulcer Verified 11/30/23 01:21 history ketorolac AdvReac Mild NAUSEA Verified 11/30/23 01:21 aspirin AdvReac Unknown "BLEEDING" Verified 11/30/23 01:21 S/P GASTRIC BYPASS Consultations 02/01/24 00:22 ED Decision to Admit Stat Procedures Performed Laboratory Results WBC 5.24 K/ul (4.8-10.8) 02/03/24 06:23 RBC 3.58 M/uL (4.70-6.10) L 02/03/24 06:23 Hgb 10.8 g/dl (14.0-18.0) L 02/03/24 06:23 Hct 32.3 % (42.0-52.0) L 02/03/24 06:23 MCV 90.2 fL (80.0-100.0) 02/03/24 06:23 MCH 30.2 pg (25.0-34.0) 02/03/24 06:23 MCHC 33.4 g/dL (32.0-36.0) 02/03/24 06:23 RDW Std Deviation 43.3 fL (36.4-46.3) 02/03/24 06:23 RDW Coeff of Rogerio 13.1 % (11.5-14.5) 02/03/24 06:23 Plt Count 196 K/uL (130-400) 02/03/24 06:23 MPV 10.1 fL (9.4-12.4) 02/03/24 06:23 Immature Gran % (Auto) 0.3 % 02/01/24 05:38 Neut % (Auto) 68.2 % 02/01/24 05:38 Lymph % (Auto) 22.2 % 02/01/24 05:38 Long % (Auto) 7.5 % 02/01/24 05:38 Eos % (Auto) 1.3 % 02/01/24 05:38 Baso % (Auto) 0.5 % 02/01/24 05:38 Neut # (Auto) 4.34 K/uL (1.40-6.50) 02/01/24 05:38 Lymph # (Auto) 1.41 K/uL (1.20-3.40) 02/01/24 05:38 Long # (Auto) 0.48 K/uL (0.11-0.59) 02/01/24 05:38 Eos # (Auto) 0.08 K/uL (0.00-0.50) 02/01/24 05:38 Baso # (Auto) 0.03 K/uL (0.00-0.20) 02/01/24 05:38 Immature Gran # (Auto) 0.02 K/uL (0.01-0.20) 02/01/24 05:38 Sodium 141 mmol/L (136-145) 02/07/24 08:01 Potassium 4.3 mmol/L (3.5-5.1) 02/07/24 08:01 Chloride 104 mmol/L (98-107) 02/07/24 08:01 Carbon Dioxide 31 mmol/L (21-32) 02/07/24 08:01 Anion Gap 6 (3-11) 02/07/24 08:01 BUN 15 mg/dl (6-23) 02/07/24 08:01 Creatinine 1.64 mg/dl (0.6-1.4) H 02/07/24 08:01 Est Cr Clr Drug Dosing 54.5 ml/min 02/07/24 08:01 eGFR 47.59 02/07/24 08:01 BUN/Creatinine Ratio 9.1 (10-20) L 02/07/24 08:01 Glucose 90 mg/dl (70-99(Fasting)) 02/07/24 08:01 Calcium 9.1 mg/dl (8.6-10.3) 02/07/24 08:01 Magnesium 2.1 mg/dl (1.7-2.4) 02/06/24 06:06 Total Bilirubin 0.7 mg/dl (0.2-1.0) 01/31/24 21:33 AST 20 U/L (13-39) 01/31/24 21:33 ALT 13 U/L (7-52) 01/31/24 21:33 Alkaline Phosphatase 128 U/L (34-104) H 01/31/24 21:33 Troponin I High Sens 5.4 pg/ml (0-20) 01/31/24 21:33 Total Protein 5.9 gm/dl (6.0-8.3) L 01/31/24 21:33 Albumin 3.6 gm/dl (3.4-5.0) 01/31/24 21:33 Globulin 2.3 gm/dl (2.5-4.0) L 01/31/24 21:33 Albumin/Globulin Ratio 1.6 (0.9-2) 01/31/24 21:33 Lipase 31 U/L (11-82) 01/31/24 21:33 Procalcitonin 0.04 ng/ml (0-0.5) 01/31/24 21:33 Urine Color See Comment 01/31/24 23:00 Urine Appearance Turbid (Clear) A 01/31/24 23:00 Urine pH Not Reportable 01/31/24 23:00 Ur Specific [place] 1.021 (1.000-1.030) 01/31/24 23:00 Urine Protein Not Reportable 01/31/24 23:00 Urine Glucose (UA) Not Reportable 01/31/24 23:00 Urine Ketones Not Reportable 01/31/24 23:00 Urine Blood Not Reportable 01/31/24 23:00 Urine Nitrite Not Reportable 01/31/24 23:00 Urine Bilirubin Not Reportable 01/31/24 23:00 Urine Urobilinogen Not Reportable 01/31/24 23:00 Ur Leukocyte Esterase Not Reportable 01/31/24 23:00 Urine RBC 11-20 /hpf (0-2) H 01/31/24 23:00 Urine WBC 6-10 /hpf (0-5) H 01/31/24 23:00 Ur Epithelial Cells 0-2 /hpf (0-2) 01/31/24 23:00 Triple Phos Crystals Present (None Prsent) A 01/31/24 23:00 Amorphous Sediment Present (None Prsent) A 01/31/24 23:00 Urine Bacteria 4+ (None Seen) H 01/31/24 23:00 Adenovirus (PCR) Not Detected (NotDetected) 01/31/24 21:35 B. pertussis DNA (PCR) Not Detected (NotDetected) 01/31/24 21:35 B.parapertussis DNA PCR Not Detected (NotDetected) 01/31/24 21:35 C. pneumoniae DNA (PCR) Not Detected (NotDetected) 01/31/24 21:35 Coronavirus OC43 (PCR) Not Detected (NotDetected) 01/31/24 21:35 Coronavirus HKU1 (PCR) Not Detected (NotDetected) 01/31/24 21:35 Coronavirus 229E (PCR) Not Detected (NotDetected) 01/31/24 21:35 SARS-CoV-2 (PCR) Not Detected (NotDetected) 01/31/24 21:35 Coronavirus NL63 (PCR) Not Detected (NotDetected) 01/31/24 21:35 Human Metapneumovir PCR Not Detected (NotDetected) 01/31/24 21:35 Influenza Type A (PCR) Not Detected (NotDetected) 01/31/24 21:35 Influenza Type B (PCR) Not Detected (NotDetected) 01/31/24 21:35 M. pneumoniae (PCR) Not Detected (NotDetected) 01/31/24 21:35 Parainfluenza 1 (PCR) Not Detected (NotDetected) 01/31/24 21:35 Parainfluenza 2 (PCR) Not Detected (NotDetected) 01/31/24 21:35 Parainfluenza 3 (PCR) Not Detected (NotDetected) 01/31/24 21:35 Parainfluenza 4 (PCR) Not Detected (NotDetected) 01/31/24 21:35 RSV (PCR) Not Detected (NotDetected) 01/31/24 21:35 Entero/Rhino (PCR) Not Detected (NotDetected) 01/31/24 21:35 Impressions Chest X-Ray 01/31/24 21:29 SINGLE VIEW CHEST CLINICAL HISTORY: Generalized weakness. FINDINGS: An AP, portable, upright chest radiograph is compared to study dated 11/29/2023 and correlated with chest CT dated 11/06/2023. The heart is enlarged. The pulmonary vasculature is noncongested. Chronic interstitial thickening is similar to previous. There is mild bibasilar scarring/atelectasis. A calcified granuloma is seen in the left upper lobe. No airspace consolidation or pleural effusion is identified. No pneumothorax is seen. The bony thorax is grossly intact. Fusion hardware is partially imaged in the lumbar spine. IMPRESSION: Mild cardiomegaly with no active disease in the chest. ACT 112: Negative or not required by law. Electronically signed by: Tamir Brunson M.D. 02/01/2024 8:01 AM KUB X-Ray 02/04/24 12:24 XR KUB/Abdomen 1 view CLINICAL HISTORY: Constipation TECHNIQUE: 1 view of the abdomen was obtained. Comparison: Comparison is made to abdomen radiograph 02/03/2024 FINDINGS: Stable hardware. Degenerative changes are seen in the visualized skeleton. The bowel gas pattern is nonobstructive. A moderate amount of stool is noted within the large bowel. IMPRESSION: Moderate stool burden without evidence of fecal impaction. ACT 112: Negative or not required by law. Electronically signed by: Ritesh Morgan M.D. 02/04/2024 1:47 PM Hospital Course (1) Confusion: Mr Thomas is 58-year-old male with past medical history significant for gout, right upper lobe pulmonary nodule, CAD, GERD, obesity s/p gastric bypass, GI bleed from gastric bypass, diverticulitis, CKD stage III, iron deficiency anemia, anxiety, history of kidney stones who lives at home with his was brought in because of confusion and found to have UTI. Patient has moderate to advanced dementia. Per patient seems more confused than usual. Last 2- 3 days he was having nausea and has been dry heaving and not eating much. Fecal retention --KUB:Nonobstructive bowel gas pattern. Moderate to extensive colonic fecal retention, similar to slightly decreased from prior. Encouraged to ambulate Added senna, enema as needed Monitor and replete electrolytes as needed Minimize narcotic use as able Received IV fluids Resolved with enema yesterday Plan to continue bowel regimen Advised to minimize narcotic use Plan to discharge home today Acute on chronic pain Currently pain pump is getting tapered off because of his dementia Patient is on home Oxycodone 10mg BID Minimize narcotics as able Acute metabolic encephalopathy Moderate to advanced dementia Urinary tract infection--POA Urine culture grew Proteus Blood cultures negative Continue Rocephin Continue olanzapine and memantine and Remeron Monitor for delirium Reorient frequently Mental status back to baseline CKD II Baseline ~ 1.5 Received gentle IV fluids Encourage to increase oral fluid intake Monitor renal function Avoid nephrotoxic agents as able Chronic anemia Hemoglobin at baseline Continue vitamin supplements On B12 shots Nonobstructive CAD Hypertension On statin Monitor blood pressure GERD On famotidine, Protonix Gout On allopurinol Prior gastric bypass surgery Follow-up with PCP DVT Px: Heparin SQ CODE STATUS Full code Disposition Home Total Time Total Time Spent Total Time Spent (In Minutes): 38 minutes Discharge Plan Discharge Items Patient Disposition: Home - Self-Care Reason For Visit: CONFUSION , UTI, BLANCO Discharge Diagnosis: Acute metabolic encephalopathy Urinary tract infection Fecal retention Activity: Per Instructions section Exercise/Sports: Gradually increase as tolerated Non-emergency contact: Primary Care Provider Call non-emergency contact if: you have any medication questions, your symptoms worsen, your pain is concerning for you and you have a fever Follow-up/Referrals: Charles Mayer DO [Primary Care Provider] - (Date & Time 02/09/2024 1:20 PM Provider Charles Mayer DO Department Family [facility] ) Diet: Regular Addtl Attending Provider Instructions: Follow-up with your primary care physician Dr. Charles Mayer on 02/09/2024 1:20 PM -- Complete the antibiotic course cefdinir for 3 more days as prescribed Seek immediate medical attention if your symptoms reoccur or worsen Please take all medications as instructed on discharge list below. Please call if you have any questions or problems. You can reach a [facility] hospitalist on duty at [facility] 24 hours a day by calling [phone] Pending Studies at Discharge: No Stand-Alone Forms: [facility], Smoking Cessation Medications and DC Order Prescriptions: New polyethylene glycol 3350 [Miralax] 17 gram Powder In Packet 17 g PO DAILY PRN (Reason: constipation) Qty: 30 0RF cefdinir 300 mg Capsule 300 mg PO BID Qty: 7 0RF docusate sodium 100 mg Capsule 100 mg PO BID Qty: 60 0RF Rx Instructions: hold taking it if you develop diarrhea Continued cyclobenzaprine 10 mg tablet 10 mg PO BID atorvastatin 10 mg tablet 10 mg PO DAILY promethazine 12.5 mg tablet 12.5 mg PO TID PRN (Reason: Nausea And Vomiting) famotidine 40 mg tablet 40 mg PO DAILY olanzapine 5 mg tablet 5 mg PO HS thiamine HCl (vitamin B1) 100 mg Tablet 100 mg PO DAILY tramadol 50 mg tablet 25 mg PO HS oxycodone-acetaminophen 5-325 mg tablet 1 tab PO Q4H PRN (Reason: Pain) pantoprazole 40 mg tablet,delayed release (DR/EC) 40 mg PO DAILY folic acid 1 mg Tablet 1 mg PO DAILY allopurinol 300 mg tablet 300 mg PO DAILY mirtazapine 15 mg tablet 15 mg PO HS memantine 10 mg tablet 10 mg PO BID copper 2 mg Tablet 2 mg PO DAILY Discharge Orders: Discharge Order (Routine); Ordered 02/07/24 Ordered By: Zhou Valdivia Admission Data Admit Date/Time: 02/01/24 01:06 Attending Provider: Zhou Valdivia Admit Provider: Gianluca Isbell Primary Care Provider: Charles Mayer Other Providers: Gianluca Isbell
[2024-02-07 11:31] VITALS: PULSE 71
[2024-02-07] MEDS: CEFDINIR 300 MG CAP PO SCH (14:07)
== END 2024-02-07 18:00 | disposition home or self-care (01) | DRG 689 ==
LOC: ED 21:21 → 2N 02-01 01:06 → SUATTDRO 02-01 01:06 → 2N 02-01 03:33

== ENCOUNTER 2024-02-12 23:12 | Observation (INO) ==
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
[2024-02-13 00:20] LABS: Basophils # (auto) 0.05 K/uL (0.00-0.20); Basophils % (auto) 0.8 %; Eosinophils # (auto) 0.07 K/uL (0.00-0.50); Eosinophils % (auto) 1.1 %; Hematocrit (blood only) 38.3 % (42.0-52.0); Hemoglobin 12.2 g/dl (14.0-18.0); Immature Granulocytes # (auto) 0.02 K/uL (0.01-0.20); Immature Granulocytes % (auto) 0.3 %; Lymphocytes # (auto) 1.76 K/uL (1.20-3.40); Lymphocytes % (auto) 28.2 %; Mean Corpuscular Hemoglobin 29.7 pg (25.0-34.0); Mean Corpuscular Hgb Conc 31.9 g/dL (32.0-36.0); Mean Corpuscular Volume 93.2 fL (80.0-100.0); Mean Platelet Volume 9.6 fL (9.4-12.4); Monocytes # (auto) 0.55 K/uL (0.11-0.59); Monocytes % (auto) 8.8 %; Neutrophils # (auto) 3.79 K/uL (1.40-6.50); Neutrophils % (auto) 60.8 %; Platelet Count 277 K/uL (130-400); RDW Coefficient of Variation 13.8 % (11.5-14.5); RDW Standard Deviation 46.7 fL (36.4-46.3); Red Blood Count 4.11 M/uL (4.70-6.10); White Blood Count 6.24 K/ul (4.8-10.8)
[2024-02-13 00:30] LABS: Base Excess VBG 3.9 mEq/L; HCO3 VBG 30 mmol/L; Oxygen Saturation VBG 63.8 %; PCO2 VBG 51 mmHg (38-50); PO2 VBG 39 mmHg; pH VBG 7.38 (7.36-7.41)
[2024-02-13 00:32] LABS: Albumin Level 4.2 gm/dl (3.4-5.0); BUN Creatinine Ratio 10.1 (10-20); Bilirubin Direct 0.1 mg/dl (0-0.2); Bilirubin,Total 0.5 mg/dl (0.2-1.0); Calcium 9.4 mg/dl (8.6-10.3); Creatinine Clr Calc Pharmacy 56.9 ml/min; Magnesium 2.2 mg/dl (1.7-2.4); Potassium 4.4 mmol/L (3.5-5.1); Total Protein 7.1 gm/dl (6.0-8.3)
[2024-02-13 00:39] LABS: Troponin I High Sensitivity 7.7 pg/ml (0-20)
[2024-02-13 00:51] LABS: INR 0.9 (0.9-1.1); Partial Thromboplastin Time 27 Seconds (21-31); Prothrombin Time 10.1 Seconds (9.0-12.0)
[2024-02-13 01:39] LABS: Appearance Urine Clear (Clear); Bacteria Urine Automated None Seen (None Seen); Bilirubin Urine Negative (Negative); Blood Urine Negative (Negative); Cast Urine Automated 0-2 /lpf (0-2); Color Urine Yellow; Epithelial Cell Urine Auto 0-2 /hpf (0-2); Glucose Urine UA Negative (Negative); Ketones Urine Negative (Negative); Leukocyte Esterase Urine Trace (Negative); Nitrite Urine Negative (Negative); Protein Urine Negative (Negative); RBC Urine Automated 0-2 /hpf (0-2); Specific Gravity Urine 1.007 (1.000-1.030); Urobilinogen Urine Negative (Negative); WBC Urine Automated 0-5 /hpf (0-5)
--- NOTE | 2024-02-13 02:28 | XRay Report ---
EXAM: XR chest 1V portable CLINICAL HISTORY: [facility] INPATIENT TECHNIQUE: An X-ray image of the chest is obtained in AP projection. Costophrenic angles are not included, Previously seen normal. COMPARISON: 01/31/2024. FINDINGS: Pulmonary Parenchyma: Lungs are clear bilaterally. No evidence of consolidation, collapse, or focal opacities. No pulmonary nodules are identified. No evidence of pleural effusion or pleural thickening. Heart and Mediastinum: Heart size and shape are normal. No mediastinal widening or masses. No hilar or mediastinal lymphadenopathy. Bony Thorax: Bony thorax appears intact without fractures or deformities. Soft Tissues: Soft tissues overlying the chest wall are unremarkable. Fixation of the lower thoracic and upper lumbar spine noted. IMPRESSION: 1. No acute cardiopulmonary abnormalities are identified. 2. No consolidation, pneumothorax, or pleural effusion. 3. No interval changes. Electronically signed by Ben Lindsay 02-13-2024 02:27 AM
--- NOTE | 2024-02-13 02:42 | CT Scan Report ---
EXAM: CT head/brain wo con CLINICAL HISTORY: [facility] INPATIENT TECHNIQUE: An axial non-contrast CT scan of the brain was performed from the skull base to the high parietal region with multiple reformats. One of the following dose reduction techniques was utilized for this exam: Automated exposure control, adjustment of the mA and/or kV according to patient size, and use of iterative reconstruction. COMPARISON: CT Head/Brain dated 11/06/2023, 11/05/2023 and 11/04/2023. FINDINGS: Stable age-related brain atrophic changes and chronic microvascular isclemic changes. No evidence of acute infarct, hemorrhage, or mass effect. Still noted subtle nonspecific hyperdensity within the pituitary gland. No evidence of subarachnoid hemorrhage or extra-axial fluid collections. The cerebellum and brainstem show normal size and signal. Normal appearance of the globes, optic nerves, and extraocular muscles. Clear paranasal sinuses. Clear mastoid air cells. Normal skull morphology. IMPRESSION: 1. No acute intracranial hemorrhage or established territorial infarction. MRI is recommended for further evaluation if clinically indicated. 2. Stable age-related brain atrophic changes and chronic microvascular ischemic changes. Electronically signed by Ben Lindsay 02-13-2024 02:42 AM
[2024-02-13] MEDS: SODIUM CHLORIDE 0.9% 1,000 ML IV SCH (03:18)
--- NOTE | 2024-02-13 03:45 | History & Physical Report ---
Date of Service February 13, 2024 Assessment & Plan (1) Encephalopathy: Plan: Delirium on dementia History traumatic brain injury Recurrent admissions Patient predisposed to delirium given home narcotics and neuropsychotropic medications given comorbidities. ARF, improving from blood work from recent confinement nonobstructive CAD as per records hypertension, stable hx gastric bypass chronic back pain on narcotics chronic anemia, hemoglobin better than baseline possibly from mild hemoconcentration prediabetes, hemoglobin A1c of 5.7 from 2018 past tobacco/alcohol abuse. OBS Medical telemetry Zyprexa as needed for agitation not amenable to behavioral management Palliative care consult to discuss goals of care with patient/family given recurrent admissions DVT prophylaxis. Heparin subcu DNR as per patient's prior directives as per . Patient requesting updates providers. Ms. Sugey Thomas, contact #[phone]. Text document was generated using Intellikine recognition software. It may contain grammatical or spelling errors. Kindly contact undersigned for clarification of any documentation item in question. History of Present Illness Chief Complaint: Weakness, confusion as per patient Primary Care Provider: Charles Mayer, History obtained from patient, family, and records. Limited history from patient secondary to dementia and agitation. Medical history significant for nonobstructive CAD as per records, hypertension, GERD, history gastric bypass, chronic back pain on narcotics, urolithiasis, chronic anemia (baseline hemoglobin 9-11), prediabetes, dementia, history traumatic brain injury, past tobacco/alcohol abuse. Monthly admissions since November 2023. Recent confinement January 31 to February 07, 2024 for confusion attributed to UTI. Serum creatinine 1.6 at time of discharge. Patient discharged on cefdinir course. Patient noted to be more confused than usual the last 2 days. Eating okay as per patient . Denies headache, chest pain, SOB. Patient brought to ER for evaluation. Medical History as above Surgical History : Finger amputation, ex lap, lithotripsy, gastric bypass, cholecystectomy, appendectomy, hernia repair, back surgery, knee surgery Family History : Heart disease, diabetes, kidney disease Personal/Social history : Past tobacco abuse, alcohol abuse, disabled Allergies Allergy/AdvReac Type Severity Reaction Status Date / Time Penicillins Allergy Severe SEE COMMENT Verified 11/30/23 01:21 erythromycin base Allergy Intermediate Itching Verified 11/30/23 01:21 indomethacin Allergy Intermediate HIVES Verified 11/30/23 01:21 neomycin Allergy Intermediate BLISTERS Verified 11/30/23 01:21 vancomycin Allergy Intermediate ITCHING--ALL Verified 11/30/23 01:21 MYCIN DRUGS fentanyl AdvReac Severe "DID NOT Verified 11/30/23 01:21 TOLERATE"-patch- "went nuts" ibuprofen AdvReac Severe Ulcer Verified 11/30/23 01:21 history ketorolac AdvReac Mild NAUSEA Verified 11/30/23 01:21 aspirin AdvReac Unknown "BLEEDING" Verified 11/30/23 01:21 S/P GASTRIC BYPASS Home Medications Medication Instructions Recorded Confirmed Type allopurinol 300 mg tablet 300 mg PO DAILY 02/01/24 02/13/24 History atorvastatin 10 mg tablet 10 mg PO DAILY 02/01/24 02/13/24 History copper 2 mg tablet 2 mg PO DAILY 02/01/24 02/13/24 History cyclobenzaprine 10 mg tablet 10 mg PO BID 02/01/24 02/13/24 History famotidine 40 mg tablet 40 mg PO DAILY 02/01/24 02/13/24 History folic acid 1 mg tablet 1 mg PO DAILY 02/01/24 02/13/24 History memantine 10 mg tablet 10 mg PO BID 02/01/24 02/13/24 History mirtazapine 15 mg tablet 15 mg PO HS 02/01/24 02/13/24 History olanzapine 5 mg tablet 5 mg PO HS 02/01/24 02/13/24 History oxycodone-acetaminophen 5 mg-325 1 tab PO Q4H PRN Pain 02/01/24 02/13/24 History mg tablet pantoprazole 40 mg tablet,delayed 40 mg PO DAILY 02/01/24 02/13/24 History release promethazine 12.5 mg tablet 12.5 mg PO TID PRN Nausea And 02/01/24 02/13/24 History Vomiting thiamine HCl (vitamin B1) 100 mg 100 mg PO DAILY 02/01/24 02/13/24 History tablet docusate sodium 100 mg capsule 100 mg PO BID #60 caps 02/07/24 02/13/24 Rx polyethylene glycol 3350 17 gram 17 g PO DAILY PRN constipation #30 02/07/24 02/13/24 Rx oral powder packet (Miralax) ea oxycodone 5 mg tablet 5 mg PO BID 02/13/24 02/13/24 History Past Med/Surg History Problem List (Updated 02/13/24 @ 05:59 by Alexi Merrill MD) Encephalopathy Confusion BLANCO (acute kidney injury) (Acute) Postlaminectomy syndrome of lumbosacral region Hyponatremia (Acute) Dementia (Acute) QT prolongation Delirium due to another medical condition, acute, hyperactive Agitation Alcohol abuse (Acute) AMS (altered mental status) (Acute) Major neurocognitive disorder as late effect of traumatic brain injury with behavioral disturbance Frequent falls (Acute) Altered mental status (Acute) Confusion Right ureteral stone Encounter for pre-operative examination Anemia (Acute) IRON DEFICIENT ANEMIA AND REC'D IV IRON 10/06. Baseline HGB since 2017 ~9 HLD (hyperlipidemia) Gout Back pain FROM ACCIDENT AND 7 DIFFERENT FX AND FUSION GERD (gastroesophageal reflux disease) (Acute) Anxiety History of renal stone (Acute) S/P cysto/litho/stent 10/07 History of diverticulitis of colon remote Medical History (Updated 02/13/24 @ 05:59 by Alexi Merrill MD) History of fracture of right ankle Hx of fracture of skull 7 FX AND HAS SOME PROBLEMS WITH MEMORY Gastric ulcer Hydronephrosis B/L per KUB 10/12/18 Surgical History S/P ureteral stent placement History of cystoscopy W/ LITHO/BASKET STONE EXTRACTION - 10/07/18 [facility]. LMA #5. History of surgery on left wrist History of arthroscopy of right shoulder Hx of right knee surgery S/P insertion of intrathecal pump FOLLOW WITH DR LAKIA PACKER FROM [facility] History of back surgery UPPER BACK FUSION, 7 DIFFERENT FRACTURES AND MULTIPLE SURGERIES AND IS FUSED multiple revisions H/O inguinal hernia repair H/O lithotripsy S/P exploratory laparotomy (Unknown) 2010 RUPTURED DIVERTICULI S/P appendectomy (Unknown) S/P cholecystectomy (Unknown) S/P gastric bypass mike en y (2010) Family History Mother DM type 2 (diabetes mellitus, type 2) Father DM type 2 (diabetes mellitus, type 2) Social History Smoking Status: Never smoker Tobacco Type: Smokeless Tobacco (Dip or Chew) Second Hand Exposure: No; Do You Dip or Chew Tobacco: Yes; Hx Alcohol Use: No (Previous alcohol use- not currently drinking) Hx Substance Use: No Preferred Language: Citizen Of The [place] Communication Ability: Impaired Communication Ability Comment: Unable to write per spouse & reading difficulty Visual Impairment: No Limitations Truss Maker Required: No Beliefs That Will Affect Care: None Current Living Situation: Spouse Current Living Situation Comment: lives with Feels Safe at Home: Yes Assistive Devices: None Review of Systems Review of Systems: Could not be reliably obtained secondary to dementia Physical Exam Physical Exam: GENERAL: Demented, no respiratory distress, chronically ill SKIN: Dark skin, warm HEENT: Alopecia, pale palpebral conjunctivae, no ptosis, dry buccal mucosa NECK : Supple, no tenderness CHEST : CTA, no chest wall tenderness HEART : RRR, no obvious murmurs ABDOMEN: Some distention, healed incisional scars, nontender EXTREMITIES : No LE swelling/tenderness, no other conspicuous deformities noted NEUROLOGIC : Demented, no facial asymmetry, no other gross focality Results & Data Results & Data Vital Signs (Past 12 Hours) Vital Signs Temp Pulse Pulse Resp BP BP Pulse Ox 02/13/24 03:00 36.9 C 65 14 118/79 98 02/13/24 02:00 64 16 120/84 98 02/13/24 01:13 65 16 117/78 100 02/13/24 00:30 65 16 125/83 100 02/12/24 23:55 100 02/12/24 23:46 67 02/12/24 23:37 68 16 133/76 100 02/12/24 23:36 100 02/12/24 23:14 36.4 C L 74 129/84 99 O2 Del Method 02/13/24 03:00 Room Air 02/13/24 02:00 Room Air 02/13/24 01:13 Room Air 02/13/24 00:30 Room Air 02/12/24 23:55 Room Air 02/12/24 23:46 02/12/24 23:37 Room Air 02/12/24 23:36 Room Air 02/12/24 23:14 Room Air Laboratory Results Laboratory Results WBC 6.24 K/ul (4.8-10.8) 02/12/24 23:45 RBC 4.11 M/uL (4.70-6.10) L 02/12/24 23:45 Hgb 12.2 g/dl (14.0-18.0) L 02/12/24 23:45 Hct 38.3 % (42.0-52.0) L 02/12/24 23:45 MCV 93.2 fL (80.0-100.0) 02/12/24 23:45 MCH 29.7 pg (25.0-34.0) 02/12/24 23:45 MCHC 31.9 g/dL (32.0-36.0) L 02/12/24 23:45 RDW Std Deviation 46.7 fL (36.4-46.3) H 02/12/24 23:45 RDW Coeff of Rogerio 13.8 % (11.5-14.5) 02/12/24 23:45 Plt Count 277 K/uL (130-400) 02/12/24 23:45 MPV 9.6 fL (9.4-12.4) 02/12/24 23:45 Immature Gran % (Auto) 0.3 % 02/12/24 23:45 Neut % (Auto) 60.8 % 02/12/24 23:45 Lymph % (Auto) 28.2 % 02/12/24 23:45 [place] % (Auto) 8.8 % 02/12/24 23:45 Eos % (Auto) 1.1 % 02/12/24 23:45 Baso % (Auto) 0.8 % 02/12/24 23:45 Neut # (Auto) 3.79 K/uL (1.40-6.50) 02/12/24 23:45 Lymph # (Auto) 1.76 K/uL (1.20-3.40) 02/12/24 23:45 [place] # (Auto) 0.55 K/uL (0.11-0.59) 02/12/24 23:45 Eos # (Auto) 0.07 K/uL (0.00-0.50) 02/12/24 23:45 Baso # (Auto) 0.05 K/uL (0.00-0.20) 02/12/24 23:45 Immature Gran # (Auto) 0.02 K/uL (0.01-0.20) 02/12/24 23:45 PT 10.1 Seconds (9.0-12.0) 02/12/24 23:45 INR 0.9 (0.9-1.1) 02/12/24 23:45 APTT 27 Seconds (21-31) 02/12/24 23:45 PTT Ratio 1.0 02/12/24 23:45 VBG pH 7.38 (7.36-7.41) 02/13/24 00:17 VBG pCO2 51 mmHg (38-50) H 02/13/24 00:17 VBG pO2 39 mmHg 02/13/24 00:17 VBG HCO3 30 mmol/L 02/13/24 00:17 VBG O2 Saturation 63.8 % 02/13/24 00:17 VBG Base Excess 3.9 mEq/L 02/13/24 00:17 Sodium 139 mmol/L (136-145) 02/12/24 23:45 Potassium 4.4 mmol/L (3.5-5.1) 02/12/24 23:45 Chloride 100 mmol/L (98-107) 02/12/24 23:45 Carbon Dioxide 30 mmol/L (21-32) 02/12/24 23:45 Anion Gap 9 (3-11) 02/12/24 23:45 BUN 16 mg/dl (6-23) 02/12/24 23:45 Creatinine 1.59 mg/dl (0.6-1.4) H 02/12/24 23:45 Est Cr Clr Drug Dosing 56.9 ml/min 02/12/24 23:45 eGFR 49.39 02/12/24 23:45 BUN/Creatinine Ratio 10.1 (10-20) 02/12/24 23:45 Glucose 105 mg/dl (70-99(Fasting)) H 02/12/24 23:45 Lactate 1.4 mmol/L (0.4-2.0) 02/13/24 00:14 Calcium 9.4 mg/dl (8.6-10.3) 02/12/24 23:45 Magnesium 2.2 mg/dl (1.7-2.4) 02/12/24 23:45 Total Bilirubin 0.5 mg/dl (0.2-1.0) 02/12/24 23:45 Direct Bilirubin 0.1 mg/dl (0-0.2) 02/12/24 23:45 AST 25 U/L (13-39) 02/12/24 23:45 ALT 18 U/L (7-52) 02/12/24 23:45 Alkaline Phosphatase 100 U/L (34-104) 02/12/24 23:45 Ammonia 12.0 umol/L (18-72) L 02/13/24 01:09 Troponin I High Sens 7.7 pg/ml (0-20) 02/12/24 23:45 Total Protein 7.1 gm/dl (6.0-8.3) 02/12/24 23:45 Albumin 4.2 gm/dl (3.4-5.0) 02/12/24 23:45 Procalcitonin 0.04 ng/ml (0-0.5) 02/12/24 23:45 Urine Color Yellow 02/13/24 01:16 Urine Appearance Clear (Clear) 02/13/24 01:16 Urine pH 7.0 (4.5-7.5) 02/13/24 01:16 Ur Specific [place] 1.007 (1.000-1.030) 02/13/24 01:16 Urine Protein Negative (Negative) 02/13/24 01:16 Urine Glucose (UA) Negative (Negative) 02/13/24 01:16 Urine Ketones Negative (Negative) 02/13/24 01:16 Urine Blood Negative (Negative) 02/13/24 01:16 Urine Nitrite Negative (Negative) 02/13/24 01:16 Urine Bilirubin Negative (Negative) 02/13/24 01:16 Urine Urobilinogen Negative (Negative) 02/13/24 01:16 Ur Leukocyte Esterase Trace (Negative) H 02/13/24 01:16 Urine WBC (Auto) 0-5 /hpf (0-5) 02/13/24 01:16 Urine RBC (Auto) 0-2 /hpf (0-2) 02/13/24 01:16 U Hyaline Cast (Auto) 0-2 /lpf (0-2) 02/13/24 01:16 U Epithel Cells (Auto) 0-2 /hpf (0-2) 02/13/24 01:16 Urine Bacteria (Auto) None Seen (None Seen) 02/13/24 01:16 Impressions Chest X-Ray 02/12/24 23:36 EXAM: XR chest 1V portable CLINICAL HISTORY: [facility] INPATIENT TECHNIQUE: An X-ray image of the chest is obtained in AP projection. Costophrenic angles are not included, Previously seen normal. COMPARISON: 01/31/2024. FINDINGS: Pulmonary Parenchyma: Lungs are clear bilaterally. No evidence of consolidation, collapse, or focal opacities. No pulmonary nodules are identified. No evidence of pleural effusion or pleural thickening. Heart and Mediastinum: Heart size and shape are normal. No mediastinal widening or masses. No hilar or mediastinal lymphadenopathy. Bony Thorax: Bony thorax appears intact without fractures or deformities. Soft Tissues: Soft tissues overlying the chest wall are unremarkable. Fixation of the lower thoracic and upper lumbar spine noted. IMPRESSION: 1. No acute cardiopulmonary abnormalities are identified. 2. No consolidation, pneumothorax, or pleural effusion. 3. No interval changes. Electronically signed by Ben Lindsay 02-13-2024 02:[address] 02/12/24 23:36 EXAM: CT head/brain wo con CLINICAL HISTORY: [facility] INPATIENT TECHNIQUE: An axial non-contrast CT scan of the brain was performed from the skull base to the high parietal region with multiple reformats. One of the following dose reduction techniques was utilized for this exam: Automated exposure control, adjustment of the mA and/or kV according to patient size, and use of iterative reconstruction. COMPARISON: CT Head/Brain dated 11/06/2023, 11/05/2023 and 11/04/2023. FINDINGS: Stable age-related brain atrophic changes and chronic microvascular isclemic changes. No evidence of acute infarct, hemorrhage, or mass effect. Still noted subtle nonspecific hyperdensity within the pituitary gland. No evidence of subarachnoid hemorrhage or extra-axial fluid collections. The cerebellum and brainstem show normal size and signal. Normal appearance of the globes, optic nerves, and extraocular muscles. Clear paranasal sinuses. Clear mastoid air cells. Normal skull morphology. IMPRESSION: 1. No acute intracranial hemorrhage or established territorial infarction. MRI is recommended for further evaluation if clinically indicated. 2. Stable age-related brain atrophic changes and chronic microvascular ischemic changes. Electronically signed by Ben Lindsay 02-13-2024 02:42 AM Diagnostic Findings EKG as per my interpretation : Rate 70, NSR, normal axis, RBBB, no ischemia
[2024-02-13] MEDS ORDERED: OLANZapine 10 MG/2.1 ML SDV IM PRN (04:20)
[2024-02-13] MEDS ORDERED: oxyCODONE HCL IR 5 MG TAB (IMMEDIATE RELEASE) PO PRN (04:21)
[2024-02-13] MEDS ORDERED: PROMETHAZINE 6.25 MG/50.25 ML BAG IV PRN (04:21)
[2024-02-13] MEDS ORDERED: ACETAMINOPHEN 500 MG TAB PO PRN (04:21)
[2024-02-13] MEDS ORDERED: POLYETHYLENE (MIRALAX) 17 GM PACK PO PRN (05:28)
[2024-02-13] MEDS: HEPARIN SOD 5,000 UNIT/0.5 ML VIAL SQ SCH (06:03)
--- OUTSIDE RECORDS SUMMARY | 2024-02-13 08:59 | External Medical Summary | Summary of Care ---
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 Takes 2 tabs at bedtime Active traZODone HCl 50 MG Oral Tablet (Desyrel)Indicati ons:Coronary artery disease involving galena coronary artery of galena heart without angina pectoris,Stage 3a chronic kidney disease (HCC),Gastroesoph ageal reflux disease without esophagitis,Demen tia (HCC) Take one-half tablet by mouth at bedtime for 5 days then stop 90 Tablet 3 01/28/2024 Active oxyCODONE-Acetami nophen 5-325 MG Oral Tablet (Percocet) Take 1 Tablet by mouth every 4 hours as needed for Pain, Severe. 30 Tablet 01/28/2024 Active Promethazine HCl 12.5 MG Oral Tablet (Phenergan)Indica tions:Vascular dementia with agitation, unspecified dementia severity (HCC) Take 1 Tablet by mouth every 8 hours as needed for Nausea. 30 Tablet 11 01/28/2024 Active Mirtazapine 15 MG Oral Tablet (Remeron) Take 1 Tablet by mouth at bedtime. 30 Tablet 1 01/29/2024 Active OLANZapine 5 MG Oral Tablet (zyPREXA) Take 1 Tablet by mouth at bedtime. 30 Tablet 01/29/2024 Active Hospital, Clinic, or Other Facility Administered Medication Ordered Dose Route Frequency Start Date End Date Status Vitamin B-12 (Cyanocobalamin) inj 1,000 mcgIndications:B12 deficiency 1000 mcg IM [id number] 01/28/2024 12/29/2024 Active documented as of this encounter (statuses as of 02/03/2024) Active Problems Problem Noted Date Diagnosed Date [...] anemia 04/24/2017 Coronary artery disease invo lving galena heart without angina pectoris 04/18/2016 Incomplete tear of right rotator cuff 04/15/2016 Overview: 04/23 Dr Eduardo guerrero. Anxiety 09/28/2014 Diverticulitis of colon 09/16/2014 Intestinal postoperative nonabsorption 1 CALLAHAN RESEARCH OTHER*[id number] 09/14/2009 ADVANCE DIRECTIVE INFORMATION 01/21/2009 Overview: No, Advance Directive brochure offered , patient declined. MEDICATION USE AGREEMENT 05/19/2008 Overview: See kim GERD (gastroesophageal reflux disease) Gout S/P gastric bypass S/P spinal fusion documented as of this encounter (statuses as of 02/03/2024) Resolved Problems Problem Noted Date Diagnosed Date [...] Tobacco use disorder 09/18/2009 011 Bariatric Proteinuria Research*[id number] 09/14/2009 12/27/2009 Organic sleep disorder 06/22/200910/10 Morbid obesity, BMI not known 06/22/2009 06/26/2010 Gout 05/08/2009 11/28/2014 History of tobacco use 05/08/200910/10 Sleep apnea 05/08/2009 06/22/2009 HTN, goal below 140/90 06/15/200809/28 JOINT DIS NOS-L-LEG 08/21/2004 03/16/20 19 HTN, goal below 140/90 09/22 Tobacco use disorder 017 Overview: smokeless 2cans per week documented as of this encounter (statuses as of 02/03/2024) Immunizations Name Administration Dates Next Due COVID-19 [...] [place] [id number] Heather Franklin [facility] [address] [facility] [address] 10/28/2024 11:40 AM EDT Office Visit Family [facility] [address] 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 Care Teams Assistant Strength Coach Relationship Specialty Start Date End Date Charles Mayer DO [address] [place] [id number] PCP - General Family Medicine 05/26/23 documented as of this encounter
--- OUTSIDE RECORDS SUMMARY | 2024-02-13 09:01 | External Medical Summary ---
Author Name Unknown Address Unknown Organization : Laboratory Report Ordering Provider Test Date Status LUBNA MENDEZ 01/28/2024 11:34:11 Final Observation Date Value Abnormality Reference (Units ) Status Thiamine [Moles/volume] in Blood 01/28/2024 11:34:11 103 78-185 (nmol/L) Final Vitamin supplementation with in 24 hours prior to
blood draw may affect the accuracy of the results.
This test was developed and its analytical performance
characteristics have been determined by [facility] [employer] [place], [place]. It has
not been cleared or approved by the U.S. Food and Drug
Administration. This assay has been validated pursuant
to the CLIA regulations and is used for clinical
purposes.

Test Performed at:
[facility]
[id number] [facility]
[place] [address]
Matt Francisco M.D., Ph.D.,Director of Laboratories Performing Location
[2024-02-13 10:15] LABS: Basophils # (auto) 0.04 K/uL (0.00-0.20); Basophils % (auto) 0.9 %; Eosinophils # (auto) 0.09 K/uL (0.00-0.50); Eosinophils % (auto) 1.9 %; Hematocrit (blood only) 38.7 % (42.0-52.0); Hemoglobin 12.2 g/dl (14.0-18.0); Immature Granulocytes # (auto) 0.01 K/uL (0.01-0.20); Immature Granulocytes % (auto) 0.2 %; Lymphocytes # (auto) 1.55 K/uL (1.20-3.40); Lymphocytes % (auto) 33.3 %; Mean Corpuscular Hemoglobin 29.6 pg (25.0-34.0); Mean Corpuscular Hgb Conc 31.5 g/dL (32.0-36.0); Mean Corpuscular Volume 93.9 fL (80.0-100.0); Mean Platelet Volume 9.6 fL (9.4-12.4); Monocytes # (auto) 0.25 K/uL (0.11-0.59); Monocytes % (auto) 5.4 %; Neutrophils # (auto) 2.71 K/uL (1.40-6.50); Neutrophils % (auto) 58.3 %; Platelet Count 264 K/uL (130-400); RDW Standard Deviation 47.8 fL (36.4-46.3); Red Blood Count 4.12 M/uL (4.70-6.10); White Blood Count 4.65 K/ul (4.8-10.8)
[2024-02-13 10:34] LABS: BUN Creatinine Ratio 8.8 (10-20); Creatinine Clr Calc Pharmacy 56.5 ml/min; Potassium 4.4 mmol/L (3.5-5.1)
[2024-02-13] MEDS: FOLIC ACID 1 MG TAB PO SCH (10:37)
[2024-02-13] MEDS: CYCLOBENZAPRINE HCL 10 MG TAB PO SCH (10:37)
[2024-02-13] MEDS: FAMOTIDINE 40 MG TABLET PO SCH (10:37)
[2024-02-13] MEDS: allopurinoL 300 MG TAB PO SCH (10:37)
[2024-02-13] MEDS: PANTOprazole 40 MG TAB PO SCH (10:37)
[2024-02-13] MEDS: MEMANTINE HCL 10 MG TAB PO SCH (10:37)
[2024-02-13] MEDS: ATORVASTATIN 10 MG TAB PO SCH (10:38)
[2024-02-13] MEDS: THIAMINE HCL 100 MG TAB PO SCH (10:38)
[2024-02-13] MEDS: DOCUSATE SODIUM 100 MG CAP PO SCH (10:38)
[2024-02-13] MEDS: oxyCODONE HCL IR 5 MG TAB (IMMEDIATE RELEASE) PO SCH ×2 (12:56→21:19)
--- NOTE | 2024-02-13 13:41 | Electrocardiogram Report ---
Test Reason : Blood Pressure : */* mmHG Vent. Rate : 68 BPM Atrial Rate : 68 BPM P-R Int : 142 ms QRS Dur : 138 ms QT Int : 438 ms P-R-T Axes : 53 37 41 degrees QTcB Int : 465 ms Normal sinus rhythm Right bundle branch block Abnormal ECG When compared with ECG of 31-Jan-2024 21:31, Premature ventricular complexes are no longer Present T wave amplitude has increased in Anterior leads Confirmed by Toan Bowen ([id number]) on 02/13/2024 1:40:44 PM Referred By: Confirmed By: Toan Bowen
--- NOTE | 2024-02-13 14:34 | Communication Note ---
Date of Service: February 13, 2024 Patient evaluated at bedside with reports increasing issues with retention meds reconcilled with Exam RRR, mild confusion, reoriented NO other clear etiology for confusion, UA wnl Cr elevated, question if patient with chronic retention given history from #BLANCO ?urinary retention, perhaps bph US renal/bladder repeat BMP Encourage po, discontinue IVF rest of plan per HP
--- NOTE | 2024-02-13 15:37 | Ultrasound Report ---
RENAL ULTRASOUND CLINICAL HISTORY: Acute kidney injury. COMPARISON STUDY: CT of the abdomen and pelvis November 06, 2023. KUB February 04, 2024. TECHNIQUE: Sonography of the kidneys and the urinary bladder was performed. FINDINGS: This exam is compromised by suboptimal penetration. The right kidney is not visualized. Of note, the right kidney was shown to be moderately atrophic on CT of November 06, 2023. There is no left hydronephrosis. The left kidney measures 10.8 cm in maximal dimension. Bladder is suboptimally assess ed given underdistention. IMPRESSION: 1. Exam compromised by suboptimal penetration. No left hydronephrosis. 2. Right kidney is obscured on this exam. ACT 112: Negative or not required by law. Electronically signed by: Weston Driver M.D. 02/13/2024 3:36 PM
[2024-02-13] MEDS ORDERED: traMADol HCL 50 MG TABLET PO SCH (21:00)
[2024-02-13] MEDS: OLANZapine 5 MG TABLET PO SCH (21:19)
[2024-02-13] MEDS: MIRTAZAPINE TAB 15 MG TAB PO SCH (21:19)
[2024-02-13] MEDS: TAMSULOSIN HCL 0.4 MG CAP PO SCH (21:49)
--- OUTSIDE RECORDS SUMMARY | 2024-02-14 01:44 | External Medical Summary | Summary of Care ---
Author Name Unknown Organization [facility] [address] [address] Phone [phone] Care Team Providers Care Magazine Supervisor Name Role Phone Andrea Mayer DO Primary Care Provider Reason for Visit * Reason Onset Date Comments Medication Refill 02/12/2024 Encounter Details Date Type Department Care Team (Late st Contact Info) Description 02/12/2024 Refill Family Practice [facility] [address] [place] [address] Andrea Mayer DO [address] [place] [address] Allergies Active Allergy Reactions Criticality Noted Date [...] as of this encounter (statuses as of 02/13/2024) Medications MORPHINE 5 MG/ML CYBER ANALYST SQ INFUSION (AMBULATORY)Ind ications:MEDICA TION USE AGREEMENT Dose morphine per Pain management 1 Bolus Dosing Unit 5 4 Active Pantoprazole Sodium 40 MG Oral Tablet Delayed Release (Protonix)Indic ations:Acute gastric ulcer with hemorrhage TAKE ONE TABLET BY MOUTH TWICE A DAY - MORNING AND BEFORE BEDTIME 200 Tablet 1 10/02/2023 12:11 PM EDT 4 025 Active Memantine HCl 10 MG Oral Tablet (Namenda) Take 1 Tablet by mouth in the morning and 1 Tablet before bedtime. 180 Tablet 3 09/19/2023 7:41 AM EDT 4 Active Allopurinol 300 MG Oral Tablet (Zyloprim)Indic ations:Gout TAKE ONE TABLET BY MOUTH EVERY DAY 100 Tablet 1 10/02/2023 12:11 PM EDT 4 Active Famotidine 40 MG Oral Tablet (Pepcid)Indicat ions:Gastroesop hageal reflux disease without esophagitis Take 1 Tablet by mouth in the morning. 30 Tablet 11 4 Active Additional Information Patient taking differently:40 mg Oral Daily(AM),Takes at bedtime, Reported on 01/22/2024 Loratadine 10 MG Oral Capsule Take 1 Capsule by mouth in the morning. Active Zinc Acetate 50 MG Oral Capsule Take 1 Capsule by mouth daily. Active Copper Caps 2 MG Oral Capsule (copper gluconate)Indic ations:Copper deficiency Take 8 mg of elemental copper each day orally for a week, 6 mg for the second week, 4 mg for the third week, and 2 mg thereafter 180 Capsule 3 4 Active Atorvastatin Calcium 10 MG Oral Tablet (Lipitor)Indica tions:Elevated cholesterol Take 1 Tablet by mouth in the morning. 100 Tablet 2 11/28/2023 11:31 AM EDT 4 Active Folic Acid 1 MG Oral Tablet Take 1 Tablet by mouth in the morning. 4 Active Cyanocobalamin 1000 MCG/ML Injection Kit Inject 1,000 mcg into a large muscle every 30 days. 4 Active LORazepam 1 MG Oral Tablet (Ativan) Take 1 Tablet by mouth every 8 hours as needed for Anxiety. 1 Tablet 4 Active Cyclobenzaprine HCl 10 MG Oral Tablet Take 1 Tablet by mouth in the morning and 1 Tablet before bedtime. Takes 1 1/2 tabs (15 mg) three times day. 4 Active Docusate Sodium 100 MG Oral Capsule (Colace) Take 2 Capsules by mouth in the morning and 2 Capsules before bedtime. 4 Active Melatonin 10 MG Oral Tablet Take 1 Tablet by mouth at bedtime. 4 Active Thiamine HCl 100 MG Oral Tablet (vitamin B-1) Take 1 Tablet by mouth in the morning. 4 Active oxyCODONE 2.5 mg OR TABS Take 1 Tablet by mouth every 4 hours as needed. Takes 5 mg every 4 hours Active Natural Vegetable Laxative Oral Tablet Take by mouth. Takes 2 tabs at bedtime Active traZODone HCl 50 MG Oral Tablet (Desyrel)Indica tions:Coronary artery disease involving [place] river coronary artery of little river heart without angina pectoris,Stage 3a chronic kidney disease (HCC),Gastroeso phageal reflux disease without esophagitis,Dem entia (HCC) Take one-half tablet by mouth at bedtime for 5 days then stop 90 Tablet 3 4 Active Promethazine HCl 12.5 MG Oral Tablet (Phenergan)[place] cations:Vascula r dementia with agitation, unspecified dementia severity (HCC) Take 1 Tablet by mouth every 8 hours as needed for Nausea. 30 Tablet 11 4 Active Mirtazapine 15 MG Oral Tablet (Remeron) Take 1 Tablet by mouth at bedtime. 30 Tablet 1 4 Active OLANZapine 5 MG Oral Tablet (zyPREXA) Take 1 Tablet by mouth at bedtime. 30 Tablet 4 Active Cefdinir 300 MG Oral Capsule (Omnicef) Take 1 Capsule by mouth in the morning and 1 Capsule before bedtime. Active Polyethylene Glycol 3350 17 GM Oral Packet (MiraLax) Take 1 Packet by mouth in the morning. As needed . Active oxyCODONE-Aceta minophen 5-325 MG Oral Tablet (Percocet) Take 1 Tablet by mouth every 4 hours as needed for Pain, Severe. 30 Tablet 4 Active oxyCODONE-Aceta minophen 5-325 MG Oral Tablet (Percocet) Take 1 Tablet by mouth every 4 hours as needed for Pain, Severe. 30 Tablet 4 024 Discontin ued(Refil l) Hospital, Clinic, or Other Facility Administered Medication Ordered Dose Route Frequency Start Date End Date Status Vitamin B-12 (Cyanocobalamin) inj 1,000 mcgIndications:B12 deficiency 1000 mcg IM [id number] 01/28/2024 12/29/2024 Active documented as of this encounter (statuses as of 02/13/2024) Active Problems Problem Noted Date Diagnosed Date History of kidney stones 04/22/2022 Stage 3a chronic kidney disease 02/14/2020 Overview: Per CKD protocol - Per CKD protocol Low ferritin 01/03/2020 History of nonmelanoma skin cancer 10/10/2019 Overview (10/10/2019): BCC central nasal dorsum 09/23 Right upper lobe pulmonary nodule 01/21/2019 History of skull fracture 09/24/2018 History of trauma to spine 09/24/2018 Iron deficiency anemia 04/24/2017 Coronary artery disease invo lving little river heart without angina pectoris 04/18/2016 Incomplete tear of right rotator cuff 04/15/2016 Overview (04/15/2016): 04/23 Dr Eduardo guerrero. Anxiety 09/28/2014 Diverticulitis of colon 09/16/2014 Intestinal postoperative nonabsorption 1 [facility]AHAN RESEARCH OTHER*[id number] 09/14/2009 MEDICATION USE AGREEMENT 05/19/2008 Overview (05/19/2008): See kim GERD (gastroesophageal reflux disease) Gout S/P gastric bypass S/P spinal fusion documented as of this encounter (statuses as of 02/13/2024) Resolved Problems Problem Noted Date Diagnosed Date Resolved Date Kidney disease, chronic, sta ge III (GFR 30-59 ml/min) 11/16/2018 02/17/2020 Overview: Per CKD protocol Well adult exam 04/18/2016 09/24/2018 Overview (06/01/2018): ??Need eval hypoglycemia? S/p gastric bypass. Pain mgmt Dr Syed Asencio--[facility] +pain pump 02/22 EGD-Gastric bypass [...] pain 09/16/2014 09/24/2018 Renal calculus 09/16/2014 04/22/2022 Overview (04/24/2017): many Coronary atherosclerosis 09/08/2014 Chest pain 09/05/2014 04/18/2016 Exertional shortness of breath 09/05/2014 03/16/2019 Impaired fasting glucose 05/23/2014 Hypoglycemia 05/23/2014 04/18/2016 Sweating abnormality 05/23/2014 017 Hyperglycemia 05/23/2014 04/18/2016 Preop examination 01/15/2013 11/28/2014 Vertigo 01/04/2013 01/13/2013 Abnormal blood sugar 06/16/2012 013 Abdominal pain, epigastric 06/16/2012 1 Body mass index (BMI) of 40.0-44.9 in adult 06/26/2010 10/10/2010 Overview (07/18/2015): ICD-10 update of inactive term Backache 03/30/2010 09/24/2018 Encounter for removal of sutures 03/30/2010 04/25/2010 Other specified pre-operative examination 03/07/2010 10/10/2010 Tobacco use disorder 09/18/2009 011 Bariatric Proteinuria Research*[id number] 09/14/2009 12/27/2009 Organic sleep disorder 06/22/200910/10 Morbid obesity, BMI not known 06/22/2009 06/26/2010 Gout 05/08/2009 11/28/2014 History of tobacco use 05/08/200910/10 Sleep apnea 05/08/2009 06/22/2009 ADVANCE DIRECTIVE INFORMATION 01/21/2009 02/09/2024 Overview (01/21/2009): No, Advance Directive brochure offered , patient declined. 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 Authorizing Provider: ANDREA MAYER * Telephone Encounter - Arya Gomez [facility] - 02/13/2024 10:44 AM EST Pending Prescriptions: Disp Refills oxyCODONE-Acetaminophen 5-325 MG Oral Tabl*30 Tab*0 Sig: Take 1 Tablet by mouth every 4 hours as needed for Pain, Severe. * Telephone Encounter - Arya Gomez RP - 02/13/2024 10:43 AM EST Please see patient comment. Patient comment: Can yan please do a 90 day supply Note: As prescription is a controlled substance did NOT pend dose change. Thank you, Arya Gomez PharmD Clinical Pharmacist [facility] ([facility]) [phone] 02/13/2024, 10:43 AM * Telephone Encounter - Arya Gomez RP - 02/13/2024 10:42 AM EST I have reviewed the patients controlled substance dispensing history in the Prescription Drug Monitoring Program in compliance with the [facility] regulations before prescribing a controlled substance. PDMP checked on 02/13/2024. Pending Prescriptions: Disp Refills oxyCODONE-Acetaminophen 5-325 MG Oral Tab*30 Tab*0 Sig: Take 1 Tablet by mouth every 4 hours as needed for Pain, Severe. Last Visit: 01/28/2024 (in office), Visit date not found (telemedicine) Next Visit: 02/16/2024 Date medication was last filled: 01/28/2024 Date medication is due for refill: 02/01/2024 [facility]acy: [id number] [address] [facility] Is this request for a controlled substance? Yes and Urine Drug Screen Not completed Toxicology results: No results found. However, due to the size of the patient record, not all encounters were searched.Please check Results Review for a complete set of results. Please approve if appropriate. Thank you, Arya Gomez PharmD Clinical Pharmacist [facility] ([facility]) [phone] 02/13/2024, 10:42 AM documented in this encounter Plan of Treatment Upcoming Encounters Date Type Department Care Team ([facility] Contact Info) Description 02/16/2024 11:00 AM EST Office Visit [facility] [address] [place] [address] Andrea Mayer, DO [address] [place] [address] 04/15/2024 9:00 AM EST Office Visit Neurology [address] [place] [phone] Heather Franklin CRNP [address] [facility] [place] [id number] 10/28/2024 11:40 AM EDT Office Visit Family Practice [facility] [address] [place] [address] Andrea Mayer, DO [address] [place] [address] Scheduled Procedures Name Priority Associated Diagnoses Date/Ti [...] Additional history exists CKD HGB USE SMARTSET 41452 11/24/202411/24, 11/25/2023, 06/11/2023, Additional history exists CKD PHOS USE SMARTSET 25637 11/24/202411/06, 06/11/2023, 12/24/2019 Depression Screening 01/21/2025 01/22/2024 [...] Documents on File Type Date Recorded 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 Care Teams Magazine Supervisor Relationship Specialty Start Date End Date Andrea Mayer DO [address] [place] [address] PCP - General Family Medicine 05/26/23 documented as of this encounter
[2024-02-14 08:02] LABS: BUN Creatinine Ratio 10.3 (10-20); Calcium 9.7 mg/dl (8.6-10.3); Creatinine Clr Calc Pharmacy 53.1 ml/min; Potassium 4.3 mmol/L (3.5-5.1)
--- NOTE | 2024-02-14 10:46 | Discharge Summary ---
Discharge Summary Date of Service February 14, 2024 Principal Dx & Hospital Course #1 = Principal Diagnosis (1) Encephalopathy: Mr Thomas is 58-year-old male with past medical history significant for gout, right upper lobe pulmonary nodule, CAD, GERD, obesity s/p gastric bypass, GI bleed from gastric bypass, diverticulitis, CKD stage III, iron deficiency anemia, anxiety, history of kidney stones who lives at home with his was brought in because of confusion. Infectious work up was negative. reports urinary hesitancy and frequency, suspected BPH. Encouraged family to follow up with PCP and request palliative consult. On day of discharge, patient at baseline and agreeable to plan. #Acute encephalopathy, resolved #Moderate to advanced dementia no signs of infection, question if dementia progressing continue memantine bid recommended palliative OP follow up No signs on ongoing infection #LUTS start tamsulosin qhs #CKD III cr seemingly around 1.5-1.6 US with atrophic right kidney counselled patient on avoiding nsaids #Chronic anemia Continue vitamin supplements On B12 shots #Nonobstructive CAD #Hypertension On statin Monitor blood pressure, stable #GERD On famotidine Protonix #Gout On allopurinol #Prior gastric bypass surgery Follow-up with PCP Notes For Next Care Provider Medication Changes From Visit Start tamsulosin 0.4 qhs Admission HPI Per Admitting Provider History obtained from patient, family, and records. Limited history from patient secondary to dementia and agitation. Medical history significant for nonobstructive CAD as per records, hypertension, GERD, history gastric bypass, chronic back pain on narcotics, urolithiasis, chr onic anemia (baseline hemoglobin 9-11), prediabetes, dementia, history traumatic brain injury, past tobacco/alcohol abuse. Monthly admissions since November 2023. Recent confinement January 31 to February 07, 2024 for confusion attributed to UTI. Serum creatinine 1.6 at time of discharge. Patient discharged on cefdinir course. Patient noted to be more confused than usual the last 2 days. Eating okay as per patient . Denies headache, chest pain, SOB. Patient brought to ER for evaluation. Medical History as above Surgical History : Finger amputation, ex lap, lithotripsy, gastric bypass, cholecystectomy, appendectomy, hernia repair, back surgery, knee surgery Family History : Heart disease, diabetes, kidney disease Personal/Social history : Past tobacco abuse, alcohol abuse, disabled Admission Exam Per Admitting Provider General- Not in distress. Head- atraumatic Eyes- PERRL. ENT- oropharynx clear Neck- supple, no JVD. Lungs- clear to auscultation no wheezing or crackles Heart- regular rate and rhythm; no murmur, no gallop. Abdomen- normal bowel sounds, soft, nontender, no distension Extremities- no pretibial edema, no erythema seen Neuro- alert, oriented x 2; PERRL, no facial palsy; no dysarthria; moves ext remities Discharge Exam Constitutional WD/WN, vitals as above Respiratory normal respiratory effort, lungs clear to auscultation Cardiovascular RRR, no murmur, no edema Updated Medication List Medication Instructions Recorded Confirmed Type allopurinol 300 mg tablet 300 mg PO DAILY 02/01/24 02/13/24 History atorvastatin 10 mg tablet 10 mg PO DAILY 02/01/24 02/13/24 History copper 2 mg tablet 2 mg PO DAILY 02/01/24 02/13/24 History cyclobenzaprine 10 mg tablet 10 mg PO BID 02/01/24 02/13/24 History famotidine 40 mg tablet 40 mg PO DAILY 02/01/24 02/13/24 History folic acid 1 mg tablet 1 mg PO DAILY 02/01/24 02/13/24 History memantine 10 mg tablet 10 mg PO BID 02/01/24 02/13/24 History mirtazapine 15 mg tablet 15 mg PO HS 02/01/24 02/13/24 History olanzapine 5 mg tablet 5 mg PO HS 02/01/24 02/13/24 History oxycodone-acetaminophen 5 mg-325 1 tab PO Q4H PRN Pain 02/01/24 02/13/24 History mg tablet pantoprazole 40 mg tablet,delayed 40 mg PO DAILY 02/01/24 02/13/24 History release promethazine 12.5 mg tablet 12.5 mg PO TID PRN Nausea And 02/01/24 02/13/24 History Vomiting thiamine HCl (vitamin B1) 100 mg 100 mg PO DAILY 02/01/24 02/13/24 History tablet docusate sodium 100 mg capsule 100 mg PO BID #60 caps 02/07/24 02/13/24 Rx oxycodone 5 mg tablet 10 mg PO BID 02/13/24 02/13/24 History tamsulosin 0.4 mg capsule 0.4 mg PO HS 30 days #30 caps 02/14/24 Rx Hospital Stay Data Consultations 02/13/24 03:02 ED Decision to Admit Stat 02/13/24 04:22 Consult Palliative Care Routine Diagnostic Imagining Performed 02/12/24 23:36 CT head/brain wo con Stat 02/13/24 14:22 US Kidney Bladder [US renal/blad retro comp] Routine Pending Results Patient Have Any Pending Studies at Discharge: No Discharge Instructions Given to Patient (Per Discharging Provider) You were admitted for concerns of confusion, however, there was nothing in our work up that revealed any clear eitology outside of concern for progressive dementia. You were noted to have an elevated creatinine, signs of declining renal function. This number has remained stable for months and is your new baseline. You have chronic kidney disease stage 3a. Your imaging revealed a "shrinking" right kidney, which is likely related to ongoing vascular disease and is chronic in nature. It is important to avoid NSAIDS (ibuprofen, naproxen). It is strongly recommended you follow up with your PCP and discuss Palliative Care as an outpatient referral You also reported straining with urination. You were started on tamsulosin 0.4mg at bedtime (flomax) to help ease urination. Total Time Total Time Spent Total Time Spent (In Minutes): 35
[2024-02-14 11:43] VITALS: BP 107/70; RESP 20; TEMP 97.7; O2SAT 100
[2024-02-14 14:36] VITALS: PULSE 71
== END 2024-02-14 14:50 | disposition home or self-care (01) ==
LOC: ED 23:12 → 2N 23:12

== ENCOUNTER 2024-02-25 20:27 | Observation (INO) ==
[2024-02-25 21:28] LABS: Basophils # (auto) 0.03 K/uL (0.00-0.20); Basophils % (auto) 0.5 %; Eosinophils # (auto) 0.01 K/uL (0.00-0.50); Eosinophils % (auto) 0.2 %; Hematocrit (blood only) 34.7 % (42.0-52.0); Hemoglobin 11.3 g/dl (14.0-18.0); Immature Granulocytes # (auto) 0.02 K/uL (0.01-0.20); Immature Granulocytes % (auto) 0.4 %; Lymphocytes # (auto) 1.65 K/uL (1.20-3.40); Lymphocytes % (auto) 30.2 %; Mean Corpuscular Hemoglobin 29.4 pg (25.0-34.0); Mean Corpuscular Hgb Conc 32.6 g/dL (32.0-36.0); Mean Corpuscular Volume 90.4 fL (80.0-100.0); Mean Platelet Volume 10.2 fL (9.4-12.4); Monocytes # (auto) 0.64 K/uL (0.11-0.59); Monocytes % (auto) 11.7 %; Neutrophils # (auto) 3.11 K/uL (1.40-6.50); Platelet Count 231 K/uL (130-400); RDW Coefficient of Variation 13.4 % (11.5-14.5); RDW Standard Deviation 45.1 fL (36.4-46.3); Red Blood Count 3.84 M/uL (4.70-6.10); White Blood Count 5.46 K/ul (4.8-10.8)
[2024-02-25 21:42] LABS: Troponin I High Sensitivity 6.3 pg/ml (0-20)
[2024-02-25 21:55] LABS: Partial Thromboplastin Time 28 Seconds (21-31); Prothrombin Time 11.1 Seconds (9.0-12.0)
[2024-02-25 22:04] LABS: Albumin Globulin Ratio 1.7 (0.9-2); Albumin Level 3.8 gm/dl (3.4-5.0); BUN Creatinine Ratio 9.6 (10-20); Calcium 8.8 mg/dl (8.6-10.3); Creatinine Clr Calc Pharmacy 66.5 ml/min; Globulin 2.2 gm/dl (2.5-4.0); Potassium 3.4 mmol/L (3.5-5.1)
--- NOTE | 2024-02-25 22:17 | Emergency Department Note ---
History of Present Illness General Chief Complaint: Chest Pain Stated Complaint: CHEST PAIN Time Seen by Provider: 02/25/24 21:02 Source: family History of Present Illness Provider Complaint: chest pain Onset (ago): hour(s) 1 Duration: now resolved Onset: during rest Pain Location: substernal Pain Radiation: none Severity: moderate Current Pain Intensity: 0 Quality: + dull Relieved By: + nothing Exacerbated By: + nothing Associated symptoms: + nausea; no dyspnea, no syncope, no palpitations, no fever or no cough Home Medications Medication Instructions Recorded Confirmed Type allopurinol 300 mg tablet 300 mg PO DAILY 02/01/24 02/13/24 History atorvastatin 10 mg tablet 10 mg PO DAILY 02/01/24 02/13/24 History copper 2 mg tablet 2 mg PO DAILY 02/01/24 02/13/24 History cyclobenzaprine 10 mg tablet 10 mg PO BID 02/01/24 02/13/24 History famotidine 40 mg tablet 40 mg PO DAILY 02/01/24 02/13/24 History folic acid 1 mg tablet 1 mg PO DAILY 02/01/24 02/13/24 History memantine 10 mg tablet 10 mg PO BID 02/01/24 02/13/24 History mirtazapine 15 mg tablet 15 mg PO HS 02/01/24 02/13/24 History olanzapine 5 mg tablet 5 mg PO HS 02/01/24 02/13/24 History oxycodone-acetaminophen 5 mg-325 1 tab PO Q4H PRN Pain 02/01/24 02/13/24 History mg tablet pantoprazole 40 mg tablet,delayed 40 mg PO DAILY 02/01/24 02/13/24 History release promethazine 12.5 mg tablet 12.5 mg PO TID PRN Nausea And 02/01/24 02/13/24 History Vomiting thiamine HCl (vitamin B1) 100 mg 100 mg PO DAILY 02/01/24 02/13/24 History tablet docusate sodium 100 mg capsule 100 mg PO BID #60 caps 02/07/24 02/13/24 Rx oxycodone 5 mg tablet 10 mg PO BID 02/13/24 02/13/24 History tamsulosin 0.4 mg capsule 0.4 mg PO HS 30 days #30 caps 02/14/24 Rx Allergies Allergy/AdvReac Type Severity Reaction Status Date / Time Penicillins Allergy Severe SEE COMMENT Verified 11/30/23 01:21 erythromycin base Allergy Intermediate Itching Verified 11/30/23 01:21 indomethacin Allergy Intermediate HIVES Verified 11/30/23 01:21 neomycin Allergy Intermediate BLISTERS Verified 11/30/23 01:21 vancomycin Allergy Intermediate ITCHING--ALL Verified 11/30/23 01:21 MYCIN DRUGS fentanyl AdvReac Severe "DID NOT Verified 11/30/23 01:21 TOLERATE"-patch- "went nuts" ibuprofen AdvReac Severe Ulcer Verified 11/30/23 01:21 history ketorolac AdvReac Mild NAUSEA Verified 11/30/23 01:21 aspirin AdvReac Unknown "BLEEDING" Verified 11/30/23 01:21 S/P GASTRIC BYPASS Past Med/Surg History Problem List (Updated 02/25/24 @ 22:29 by Ethan Chan MD) Chest pain (Acute) Encephalopathy Confusion BLANCO (acute kidney injury) (Acute) Postlaminectomy syndrome of lumbosacral region Hyponatremia (Acute) Dementia (Acute) QT prolongation Delirium due to another medical condition, acute, hyperactive Agitation Alcohol abuse (Acute) AMS (altered mental status) (Acute) Major neurocognitive disorder as late effect of traumatic brain injury with behavioral disturbance Frequent falls (Acute) Altered mental status (Acute) Confusion Right ureteral stone Encounter for pre-operative examination Anemia (Acute) IRON DEFICIENT ANEMIA AND REC'D IV IRON 10/06. Baseline HGB since 2017 ~9 HLD (hyperlipidemia) Gout Back pain FROM ACCIDENT AND 7 DIFFERENT FX AND FUSION GERD (gastroesophageal reflux disease) (Acute) Anxiety History of renal stone (Acute) S/P cysto/litho/stent 10/07 History of diverticulitis of colon remote Medical History (Updated 02/25/24 @ 22:29 by Ethan Chan MD) History of fracture of right ankle Hx of fracture of skull 7 FX AND HAS SOME PROBLEMS WITH MEMORY Gastric ulcer Hydronephrosis B/L per [facility] 10/12/18 Surgical History S/P ureteral stent placement History of cystoscopy W/ LITHO/BASKET STONE EXTRACTION - 10/07/18 [facility], [place]. LMA #5. History of surgery on left wrist History of arthroscopy of right shoulder Hx of right knee surgery S/P insertion of intrathecal pump FOLLOW WITH DR LAKIA APCKER FROM [place] History of back surgery UPPER BACK FUSION, 7 DIFFERENT FRACTURES AND MULTIPLE SURGERIES AND IS FUSED multiple revisions H/O inguinal hernia repair H/O lithotripsy S/P exploratory laparotomy (Unknown) 2010 RUPTURED DIVERTICULI S/P appendectomy (Unknown) S/P cholecystectomy (Unknown) S/P gastric bypass mike en y (2011) Family History Mother DM type 2 (diabetes mellitus, type 2) Father DM type 2 (diabetes mellitus, type 2) Social History Smoking Status: Never smoker Tobacco Type: Smokeless Tobacco (Dip or Chew) Second Hand Exposure: No; Do You Dip or Chew Tobacco: Yes; Hx Alcohol Use: No Hx Substance Use: No Preferred Language: Syriac Communication Ability: Impaired Communication Ability Comment: Unable to write per spouse & reading difficulty Visual Impairment: No Limitations Supervisor Rod Placing Required: No Beliefs That Will Affect Care: None Current Living Situation: Spouse Current Living Situation Comment: lives with Feels Safe at Home: Yes Assistive Devices: Wheelchair Physical Exam Vital Signs Vital Signs - 24 hr 02/25/24 20:43 02/25/24 20:51 02/25/24 21:02 Temperature 36.4 C L Temperature Source Oral Pulse Rate 66 69 Pulse Rate [Apical] Pulse Rhythm [Apical] Pulse Strength [Apical] Respiratory Rate 18 Respiratory Effort / Characteristics Non-Labored Spontaneous Respiratory Depth Normal Blood Pressure 114/76 Blood Pressure [Right Arm] Blood Pressure Mean 88 Blood Pressure Mean [Right Arm] Pulse Oximetry 100 99 Oxygen Delivery Method Room Air Room Air Sepsis Recent Fever Within 48 Hours No Sepsis New/Unexplained Change in Mental Status No Sepsis Action Taken by Nursing No Action Required 02/25/24 21:02 02/25/24 21:02 Temperature Temperature Source Pulse Rate Pulse Rate [Apical] 60 Pulse Rhythm [Apical] Regular Pulse Strength [Apical] Normal Respiratory Rate 16 Respiratory Effort / Characteristics Non-Labored Respiratory Depth Normal Blood Pressure Blood Pressure [Right Arm] 112/72 Blood Pressure Mean Blood Pressure Mean [Right Arm] 85 Pulse Oximetry 99 Oxygen Delivery Method Room Air Room Air Sepsis Recent Fever Within 48 Hours Sepsis New/Unexplained Change in Mental Status Sepsis Action Taken by Nursing Physical Exam GENERAL: oriented to person, place, and time. appears well-developed and well- nourished. She does not appear distressed. HENT: Exam performed. -Head: Normocephalic and atraumatic. -Right Ear: External ear normal. No mastoid erythema -Left Ear: External ear normal. No mastoid erythema -Mouth/Throat: The oropharynx is clear and moist. No trismus in the jaw. No dental abscesses or uvula swelling. No oropharyngeal exudate or tonsillar abscesses. EYES: Conjunctivae and EOM are normal.Right eye exhibits no discharge. Left eye exhibits no discharge. No scleral icterus. NECK: Normal range of motion. Neck supple. No JVD present. No tracheal deviation and normal range of motion present. CV: Normal rate, regular rhythm, normal heart sounds and intact distal pulses. There is no peripheral edema. Palpable radial pulses bue. PULM/CHEST: Effort normal and breath sounds normal. No respiratory distress. No stridor. no wheezes.no rales. -Chest Wall: no tenderness to palpation ABD: The abdomen is soft. Bowel sounds are normal. no distension. No mass is present. There is no tenderness. There is no rebound, no guarding, no Velez's sign and no tenderness at McBurney's point. Rovsig negative MUSC/SKEL: Normal range of motion. There is no peripheral edema, tenderness or deformity. NEURO: Motor and sensation grossly intact. SKIN: Skin is warm and dry. not diaphoretic. PSYCH: normal mood and affect. Behavior is normal. Judgment and thought content normal. Course Course 2101: The patient was evaluated in room B9. A complete history and physical exam was performed Cardiac monitoring: An order was placed for continuous cardiac monitoring. The monitor shows a rate of 70 with sinus rhythm interpreted by me 2228: Vital signs stable. Labs and imaging unremarkable with the exception of glucose of 67. Patient tolerating p.o. No chest pain at this time. Patient will be admitted for chest pain rule out ACS. Discussed with Dr. Skuhi Russo hospitalist who will evaluate the patient for admission. Medical Decision Making Laboratory Data Attestation: I reviewed the patient's lab results. 02/25/24 20:40 02/25/24 20:40 Labs: Lab Results 02/25/24 Range/Units 20:40 WBC 5.46 (4.8-10.8) K/ul RBC 3.84 L (4.70-6.10) M/uL Hgb 11.3 L (14.0-18.0) g/dl Hct 34.7 L (42.0-52.0) % MCV 90.4 (80.0-100.0) fL MCH 29.4 (25.0-34.0) pg MCHC 32.6 (32.0-36.0) g/dL RDW Std Deviation 45.1 (36.4-46.3) fL RDW Coeff of Rogerio 13.4 (11.5-14.5) % Plt Count 231 (130-400) K/uL MPV 10.2 (9.4-12.4) fL Immature Gran % (Auto) 0.4 % Neut % (Auto) 57.0 % Lymph % (Auto) 30.2 % Benson % (Auto) 11.7 % Eos % (Auto) 0.2 % Baso % (Auto) 0.5 % Neut # (Auto) 3.11 (1.40-6.50) K/uL Lymph # (Auto) 1.65 (1.20-3.40) K/uL Benson # (Auto) 0.64 H (0.11-0.59) K/uL Eos # (Auto) 0.01 (0.00-0.50) K/uL Baso # (Auto) 0.03 (0.00-0.20) K/uL Immature Gran # (Auto) 0.02 (0.01-0.20) K/uL PT 11.1 (9.0-12.0) Seconds INR 1.0 (0.9-1.1) APTT 28 (21-31) Seconds PTT Ratio 1.0 Sodium 139 (136-145) mmol/L Potassium 3.4 L (3.5-5.1) mmol/L Chloride 103 (98-107) mmol/L Carbon Dioxide 28 (21-32) mmol/L Anion Gap 8 (3-11) BUN 13 (6-23) mg/dl Creatinine 1.36 (0.6-1.4) mg/dl Est Cr Clr Drug Dosing 66.5 ml/min eGFR 59.58 BUN/Creatinine Ratio 9.6 L (10-20) Glucose 67 L (70-99(Fasting)) mg/dl Calcium 8.8 (8.6-10.3) mg/dl Total Bilirubin 1.0 (0.2-1.0) mg/dl AST 16 (13-39) U/L ALT 10 (7-52) U/L Alkaline Phosphatase 106 H (34-104) U/L Troponin I High Sens 6.3 (0-20) pg/ml Total Protein 6.0 (6.0-8.3) gm/dl Albumin 3.8 (3.4-5.0) gm/dl Globulin 2.2 L (2.5-4.0) gm/dl Albumin/Globulin Ratio 1.7 (0.9-2) Lipase 24 (11-82) U/L Imaging Data Chest x-ray: Attestation: I personally reviewed and interpreted this imaging study as follows: My impression: Chest x-ray negative. Airway clear. No pneumothorax. No consolidation. No cardiomegaly or cephalization.. No free air under the diaphragm. No fractures of the skeletal structures. ECG Data Attestation: I personally reviewed and interpreted this ECG as follows: Indication: chest pain Rate (beats per minute): 70 Rhythm: normal sinus Findings: no ST depression, no ST elevation or no prolonged QT MDM Narrative 2102: The patient was evaluated in room B9. A complete history and physical exam was performed Cardiac monitoring: An order was placed for continuous cardiac monitoring. The monitor shows a rate of 70 with sinus rhythm interpreted by me 2228: Vital signs stable. Labs and imaging unremarkable with the exception of glucose of 67. Patient tolerating p.o. No chest pain at this time. Patient will be admitted for chest pain rule out ACS. Discussed with Dr. Sukhi Russo hospitalist who will evaluate the patient for admission. Impression & Plan Chest pain Discharge Plan Visit Data Chief Complaint: Chest Pain Stated Complaint: CHEST PAIN ED Provider: Ethan Chan Discharge Problem: Chest pain Patient Disposition: Being Evaluated by Hospitalist Forms Stand Alone Forms: My [facility] [employer] Prescriptions Prescriptions: No Action oxycodone 5 mg tablet 10 mg PO BID tamsulosin 0.4 mg Capsule 0.4 mg PO HS 30 Days Qty: 30 0RF cyclobenzaprine 10 mg tablet 10 mg PO BID atorvastatin 10 mg tablet 10 mg PO DAILY promethazine 12.5 mg tablet 12.5 mg PO TID PRN (Reason: Nausea And Vomiting) famotidine 40 mg tablet 40 mg PO DAILY olanzapine 5 mg tablet 5 mg PO HS thiamine HCl (vitamin B1) 100 mg Tablet 100 mg PO DAILY oxycodone-acetaminophen 5-325 mg tablet 1 tab PO Q4H PRN (Reason: Pain) pantoprazole 40 mg tablet,delayed release (DR/EC) 40 mg PO DAILY folic acid 1 mg Tablet 1 mg PO DAILY allopurinol 300 mg tablet 300 mg PO DAILY mirtazapine 15 mg tablet 15 mg PO HS memantine 10 mg tablet 10 mg PO BID copper 2 mg Tablet 2 mg PO DAILY docusate sodium 100 mg Capsule 100 mg PO BID Qty: 60 0RF Rx Instructions: hold taking it if you develop diarrhea Referrals Referrals: Charles Mayer DO [Primary Care Provider] - Discharge Problem: Chest pain Qualifiers: Chest pain type: unspecified Qualified Code(s): R07.9 - Chest pain, unspecified
--- NOTE | 2024-02-26 | History & Physical Report ---
Date of Service February 25, 2024 Assessment & Plan (1) Chest pain: Plan: 58-year-old male with past medical history significant for gout, dementia, history of CAD, history of right upper lobe pulmonary nodule, GERD, status post gastric bypass, history of diverticulitis, CKD stage III, iron deficiency anemia, spinal fusion surgery, history of skull fracture, history of kidney stones who lives at home with his comes because of chest pain. Patient says he had episode of chest pain for brief period today. Currently no chest pain. Currently denies shortness of breath. No cough. No fevers. No headache. No dizziness. No nausea or abdominal pain. Normal bowel and bladder movements. States he ambulates without support. Hemodynamics are okay. Patient is currently alert and oriented x 3 and able to give his history. Chest pain Currently resolved Initial troponin 6.3 Monitoring med telemetry Repeat EKG and serial cardiac enzymes and echo Consult cardiology in a.m. for further recommendations History of dementia Moderate to advanced Continue memantine Monitor for delirium Hyperlipidemia On statin History of gout Allopurinol GERD On famotidine and Protonix Chronic anemia Continue vitamin supplements History of gastric bypass On B12 shots History of nonobstructive CAD On statin BPH On Flomax CKD stage III Creatinine 1.3 Will follow labs DVT prophylaxis SCDs for now Disposition Observation med telemetry Full code History of Present Illness Chief Complaint: Chest pain Primary Care Provider: Charles Mayer DO 58-year-old male with past medical history significant for gout, dementia, history of CAD, history of right upper lobe pulmonary nodule, GERD, status post gastric bypass, history of diverticulitis, CKD stage III, iron deficiency anemia, spinal fusion surgery, history of skull fracture, history of kidney stones who lives at home with his comes because of chest pain. Patient says he had episode of chest pain for brief period today. Currently no chest pain. Currently denies shortness of breath. No cough. No fevers. No headache. No dizziness. No nausea or abdominal pain. Normal bowel and bladder movements. States he ambulates without support. Hemodynamics are okay. Patient is currently alert and oriented x 3 and able to give his history. Past med history. As mentioned above Past surgical history. Amputation of left second finger. Colonoscopy. EGD. Exploratory laparotomy. ESWL. Laparoscopic gastric bypass Mike-en-Y. Diagnostic laparoscopy. Laparoscopic cholecystectomy. Appendectomy. Repair of inguinal hernia left side. Repair of knee ligament. Spinal fusion surgery. Upper GI endoscopy. Social history. . No smoking. Alcohol occasional. No drug use. Family history. Father had diabetes. Hypertension. Mother had diabetes. Hypertension. Allergies Allergy/AdvReac Type Severity Reaction Status Date / Time Penicillins Allergy Severe SEE COMMENT Verified 11/30/23 01:21 erythromycin base Allergy Intermediate Itching Verified 11/30/23 01:21 indomethacin Allergy Intermediate HIVES Verified 11/30/23 01:21 neomycin Allergy Intermediate BLISTERS Verified 11/30/23 01:21 vancomycin Allergy Intermediate ITCHING--ALL Verified 11/30/23 01:21 MYCIN DRUGS fentanyl AdvReac Severe "DID NOT Verified 11/30/23 01:21 TOLERATE"-patch- "went nuts" ibuprofen AdvReac Severe Ulcer Verified 11/30/23 01:21 history ketorolac AdvReac Mild NAUSEA Verified 11/30/23 01:21 aspirin AdvReac Unknown "BLEEDING" Verified 11/30/23 01:21 S/P GASTRIC BYPASS Home Medications Medication Instructions Recorded Confirmed Type cyclobenzaprine 10 mg tablet 10 mg PO BID 02/01/24 02/25/24 History famotidine 40 mg tablet 40 mg PO HS 02/01/24 02/25/24 History folic acid 1 mg tablet 1 mg PO QAM 02/01/24 02/25/24 History memantine 10 mg tablet 10 mg PO AMHS 02/01/24 02/25/24 History mirtazapine 15 mg tablet 15 mg PO HS 02/01/24 02/25/24 History olanzapine 5 mg tablet 5 mg PO HS 02/01/24 02/25/24 History oxycodone-acetaminophen 5 mg-325 1 tab PO Q4H PRN pain,severe 02/01/24 02/25/24 History mg tablet pantoprazole 40 mg tablet,delayed 40 mg PO AMHS 02/01/24 02/25/24 History release promethazine 12.5 mg tablet 12.5 mg PO TID PRN Nausea 02/01/24 02/25/24 History thiamine HCl (vitamin B1) 100 mg 100 mg PO QAM 02/01/24 02/25/24 History tablet tamsulosin 0.4 mg capsule 0.4 mg PO HS 30 days #30 caps 02/14/24 02/25/24 Rx allopurinol 300 mg tablet 300 mg PO DAILY 02/25/24 02/25/24 History atorvastatin 10 mg tablet 10 mg PO QAM 02/25/24 02/25/24 History cefdinir 300 mg capsule 300 mg PO BID 02/25/24 02/25/24 History cyanocobalamin (vitamin B-12) 1,000 mcg IM .EVERY 4 WEEKS 02/25/24 02/25/24 History 1,000 mcg/mL injection solution docusate sodium 100 mg capsule 200 mg PO AMHS 02/25/24 02/25/24 History loratadine 10 mg tablet 10 mg PO QAM 02/25/24 02/25/24 History lorazepam 1 mg tablet 1 mg PO Q8 PRN Anxiety 02/25/24 02/25/24 History melatonin 10 mg tablet 10 mg PO HS 02/25/24 02/25/24 History morphine 5 mg/mL injection solution 0 mg continuous subcutaneous 02/25/24 02/25/24 History infusion .WEANING OFF oxycodone 10 mg tablet 10 mg PO AMHS 02/25/24 02/25/24 History polyethylene glycol 3350 17 gram 17 g PO QAM PRN constiopation 02/25/24 02/25/24 History oral powder packet (Miralax) trazodone 50 mg tablet 25 mg PO HS PRN Insomnia 02/25/24 02/25/24 History zinc acetate 50 mg (zinc) capsule 50 mg PO DAILY 02/25/24 02/25/24 History Past Med/Surg History Problem List (Updated 02/25/24 @ 22:29 by Ethan Chan MD) Chest pain (Acute) Encephalopathy Confusion BLANCO (acute kidney injury) (Acute) Postlaminectomy syndrome of lumbosacral region Hyponatremia (Acute) Dementia (Acute) QT prolongation Delirium due to another medical condition, acute, hyperactive Agitation Alcohol abuse (Acute) AMS (altered mental status) (Acute) Major neurocognitive disorder as late effect of traumatic brain injury with behavioral disturbance Frequent falls (Acute) Altered mental status (Acute) Confusion Right ureteral stone Encounter for pre-operative examination Anemia (Acute) IRON DEFICIENT ANEMIA AND REC'D IV IRON 10/06. Baseline HGB since 2017 ~9 HLD (hyperlipidemia) Gout Back pain FROM ACCIDENT AND 7 DIFFERENT FX AND FUSION GERD (gastroesophageal reflux disease) (Acute) Anxiety History of renal stone (Acute) S/P cysto/litho/stent 10/07 History of diverticulitis of colon remote Medical History (Updated 02/25/24 @ 22:29 by Ethan Chan MD) History of fracture of right ankle Hx of fracture of skull 7 FX AND HAS SOME PROBLEMS WITH MEMORY Gastric ulcer Hydronephrosis B/L per [facility] 10/12/18 Surgical History S/P ureteral stent placement History of cystoscopy W/ LITHO/BASKET STONE EXTRACTION - 10/07/18 [facility]. LMA #5. History of surgery on left wrist History of arthroscopy of right shoulder Hx of right knee surgery S/P insertion of intrathecal pump FOLLOW WITH DR LAKIA PACKER FROM [place] History of back surgery UPPER BACK FUSION, 7 DIFFERENT FRACTURES AND MULTIPLE SURGERIES AND IS FUSED multiple revisions H/O inguinal hernia repair H/O lithotripsy S/P exploratory laparotomy (Unknown) 2010 RUPTURED DIVERTICULI S/P appendectomy (Unknown) S/P cholecystectomy (Unknown) S/P gastric bypass mike en y (2010) Family History Mother DM type 2 (diabetes mellitus, type 2) Father DM type 2 (diabetes mellitus, type 2) Social History Smoking Status: Never smoker Tobacco Type: Smokeless Tobacco (Dip or Chew) Second Hand Exposure: No; Do You Dip or Chew Tobacco: Yes; Hx Alcohol Use: No Hx Substance Use: No Preferred Language: Vietnamese Communication Ability: Effective Communication Ability Comment: Unable to write per spouse & reading difficulty Visual Impairment: No Limitations Public Relations Analyst Required: No Beliefs That Will Affect Care: None Current Living Situation: Spouse Current Living Situation Comment: lives with Other Information That Helps Us Care for You: No Feels Safe at Home: Yes Safety Concerns: Feels Safe At This Time Assistive Devices: Wheelchair Review of Systems Review of Systems: All systems reviewed & are unremarkable except as noted in HPI & below Physical Exam Physical Exam: General- Not in distress Head- atraumatic Eyes- PERRL. ENT- oropharynx clear Neck- supple, no JVD. Lungs- clear to auscultation no wheezing or crackles. Heart- regular rate and rhythm; no murmur, no gallop. Abdomen- normal bowel sounds, soft, nontender, no distension Extremities- no pretibial edema, no erythema seen Neuro- alert, oriented x 3; PERRL, E no facial palsy; no dysarthria; moves extremities Results & Data Results & Data Vital Signs (Past 12 Hours) Vital Signs Temp Pulse Pulse Resp BP BP Pulse Ox 02/25/24 21:02 02/25/24 21:02 60 16 112/72 99 02/25/24 21:02 99 02/25/24 20:51 69 02/25/24 20:43 36.4 C L 66 18 114/76 100 O2 Del Method 02/25/24 21:02 Room Air 02/25/24 21:02 Room Air 02/25/24 21:02 Room Air 02/25/24 20:51 02/25/24 20:43 Room Air Diagnostic Findings Laboratory Results WBC 5.46 K/ul (4.8-10.8) 02/25/24 20:40 RBC 3.84 M/uL (4.70-6.10) L 02/25/24 20:40 Hgb 11.3 g/dl (14.0-18.0) L 02/25/24 20:40 Hct 34.7 % (42.0-52.0) L 02/25/24 20:40 MCV 90.4 fL (80.0-100.0) 02/25/24 20:40 MCH 29.4 pg (25.0-34.0) 02/25/24 20:40 MCHC 32.6 g/dL (32.0-36.0) 02/25/24 20:40 RDW Std Deviation 45.1 fL (36.4-46.3) 02/25/24 20:40 RDW Coeff of Rogerio 13.4 % (11.5-14.5) 02/25/24 20:40 Plt Count 231 K/uL (130-400) 02/25/24 20:40 MPV 10.2 fL (9.4-12.4) 02/25/24 20:40 Immature Gran % (Auto) 0.4 % 02/25/24 20:40 Neut % (Auto) 57.0 % 02/25/24 20:40 Lymph % (Auto) 30.2 % 02/25/24 20:40 Faulkner % (Auto) 11.7 % 02/25/24 20:40 Eos % (Auto) 0.2 % 02/25/24 20:40 Baso % (Auto) 0.5 % 02/25/24 20:40 Neut # (Auto) 3.11 K/uL (1.40-6.50) 02/25/24 20:40 Lymph # (Auto) 1.65 K/uL (1.20-3.40) 02/25/24 20:40 Faulkner # (Auto) 0.64 K/uL (0.11-0.59) H 02/25/24 20:40 Eos # (Auto) 0.01 K/uL (0.00-0.50) 02/25/24 20:40 Baso # (Auto) 0.03 K/uL (0.00-0.20) 02/25/24 20:40 Immature Gran # (Auto) 0.02 K/uL (0.01-0.20) 02/25/24 20:40 PT 11.1 Seconds (9.0-12.0) 02/25/24 20:40 INR 1.0 (0.9-1.1) 02/25/24 20:40 APTT 28 Seconds (21-31) 02/25/24 20:40 PTT Ratio 1.0 02/25/24 20:40 Sodium 139 mmol/L (136-145) 02/25/24 20:40 Potassium 3.4 mmol/L (3.5-5.1) L 02/25/24 20:40 Chloride 103 mmol/L (98-107) 02/25/24 20:40 Carbon Dioxide 28 mmol/L (21-32) 02/25/24 20:40 Anion Gap 8 (3-11) 02/25/24 20:40 BUN 13 mg/dl (6-23) 02/25/24 20:40 Creatinine 1.36 mg/dl (0.6-1.4) 02/25/24 20:40 Est Cr Clr Drug Dosing 66.5 ml/min 02/25/24 20:40 eGFR 59.58 02/25/24 20:40 BUN/Creatinine Ratio 9.6 (10-20) L 02/25/24 20:40 Glucose 67 mg/dl (70-99(Fasting)) L 02/25/24 20:40 Calcium 8.8 mg/dl (8.6-10.3) 02/25/24 20:40 Total Bilirubin 1.0 mg/dl (0.2-1.0) 02/25/24 20:40 AST 16 U/L (13-39) 02/25/24 20:40 ALT 10 U/L (7-52) 02/25/24 20:40 Alkaline Phosphatase 106 U/L (34-104) H 02/25/24 20:40 Troponin I High Sens 6.3 pg/ml (0-20) 02/25/24 20:40 Total Protein 6.0 gm/dl (6.0-8.3) 02/25/24 20:40 Albumin 3.8 gm/dl (3.4-5.0) 02/25/24 20:40 Globulin 2.2 gm/dl (2.5-4.0) L 02/25/24 20:40 Albumin/Globulin Ratio 1.7 (0.9-2) 02/25/24 20:40 Lipase 24 U/L (11-82) 02/25/24 20:40 ECG Additional Comments: ECG. Normal sinus rhythm rate of 70. Incomplete right bundle branch block. Junctional ST depression. Prolonged QTc at 486 Code Status & VTE Plan VTE Prophylaxis Plan VTE Prophylaxis will be ordered: Yes (1) Chest pain Chest pain type: unspecified Qualified Code(s): R07.9 - Chest pain, unspecified
[2024-02-26] MEDS ORDERED: NITROGLYCERIN SL 0.4 MG/TAB TAB SL PRN (00:21)
[2024-02-26] MEDS ORDERED: ACETAMINOPHEN 325 MG TAB PO PRN (00:21)
[2024-02-26] MEDS ORDERED: POLYETHYLENE (MIRALAX) 17 GM PACK PO PRN ×2 (00:21→01:28)
[2024-02-26] MEDS ORDERED: LORazepam 1 MG TAB PO PRN (00:21)
[2024-02-26] MEDS ORDERED: oxyCODONE/ACETAMINOPHEN 5mg/325mg TAB PO PRN (00:21)
--- NOTE | 2024-02-26 00:46 | XRay Report ---
Exam(s): XR CXR 1 VIEW EXAM: XR Chest, 1 View CLINICAL HISTORY: Reason for exam: Chest pain, nonspecific. TECHNIQUE: Frontal views of the chest. COMPARISON: 01/19/2018 FINDINGS: Lungs: No consolidation. Pleural space: No pleural effusion is seen. No pneumothorax. Heart: The heart is normal in size.. Mediastinum: Unremarkable. . Bones/joints: There are postoperative and degenerative changes in the spine.. IMPRESSION: No acute pulmonary disease. Electronically signed by: Sarath Tran MD 02/26/24 00:45 AM
[2024-02-26 01:21] VITALS: TEMP 98.4
[2024-02-26] MEDS: MIRTAZAPINE TAB 15 MG TAB PO ONE (01:58)
[2024-02-26] MEDS: traZODone HCL 50 MG TAB PO PRN (01:58)
[2024-02-26 04:53] LABS: Basophils # (auto) 0.04 K/uL (0.00-0.20); Basophils % (auto) 0.6 %; Eosinophils % (auto) 1.5 %; Hemoglobin 10.9 g/dl (14.0-18.0); Immature Granulocytes # (auto) 0.01 K/uL (0.01-0.20); Immature Granulocytes % (auto) 0.2 %; Lymphocytes # (auto) 2.45 K/uL (1.20-3.40); Lymphocytes % (auto) 37.1 %; Mean Corpuscular Hemoglobin 29.4 pg (25.0-34.0); Mean Corpuscular Volume 88.9 fL (80.0-100.0); Mean Platelet Volume 9.8 fL (9.4-12.4); Monocytes # (auto) 0.61 K/uL (0.11-0.59); Monocytes % (auto) 9.2 %; Neutrophils % (auto) 51.4 %; Platelet Count 221 K/uL (130-400); RDW Coefficient of Variation 13.7 % (11.5-14.5); RDW Standard Deviation 44.3 fL (36.4-46.3); Red Blood Count 3.71 M/uL (4.70-6.10); White Blood Count 6.61 K/ul (4.8-10.8)
[2024-02-26 05:06] LABS: BUN Creatinine Ratio 10.4 (10-20); Calcium 8.9 mg/dl (8.6-10.3); Creatinine Clr Calc Pharmacy 67.5 ml/min; Magnesium 1.7 mg/dl (1.7-2.4); Potassium 3.5 mmol/L (3.5-5.1)
[2024-02-26 05:10] LABS: Troponin I High Sensitivity 8.1 pg/ml (0-20)
[2024-02-26] MEDS: CYCLOBENZAPRINE HCL 10 MG TAB PO SCH (08:47)
[2024-02-26] MEDS: oxyCODONE HCL IR 5 MG TAB (IMMEDIATE RELEASE) PO SCH (08:47)
[2024-02-26] MEDS: CEFDINIR 300 MG CAP PO SCH (08:48)
[2024-02-26] MEDS: DOCUSATE SODIUM 100 MG CAP PO SCH (08:48)
[2024-02-26] MEDS: ATORVASTATIN 10 MG TAB PO SCH (08:48)
[2024-02-26] MEDS: allopurinoL 300 MG TAB PO SCH (08:48)
[2024-02-26] MEDS: FOLIC ACID 1 MG TAB PO SCH (08:49)
[2024-02-26] MEDS: THIAMINE HCL 100 MG TAB PO SCH (08:49)
[2024-02-26] MEDS: LORATADINE 10 MG TAB PO SCH (08:49)
[2024-02-26] MEDS: ZINC SULFATE 220 MG CAPSULE PO SCH (08:49)
[2024-02-26] MEDS: PANTOprazole 40 MG TAB PO SCH (08:49)
[2024-02-26] MEDS: MEMANTINE HCL 10 MG TAB PO SCH (08:49)
--- NOTE | 2024-02-26 09:55 | Cardiology Consultation ---
Date of Consultation February 26, 2024 Assessment & Plan (1) Chest pain: (2) Dementia: Transient chest discomfort in the setting of dementia. EKG performed overnight without acute ischemic changes. High sensitive troponin negative x 2 thus far. I have requested a third troponin level to be drawn at 10 AM which is 6 hours since his previous measurement. A repeat EKG was requested. Echocardiogram was ordered by the admitting team and will be performed/interpreted. If echocardiogram findings are stable, will plan to advance diet and consider discharge later today. Discussed with spouse, Alisha by phone as noted. History of Present Illness Attending Physician: Maurizio John MD History of Present Illness Mr Thomas Is a 58-year-old male seen in cardiology consultation per the request of Dr. Isbell for the evaluation of chest discomfort. History obtained per review of his chart as well as by telephone interview with his spouse, Alisha, as the patient is not able to provide history due to his underlying dementia. The patient has an apparent history of traumatic brain injury and progressive dementia. He has been in the hospital with multiple issues including confusion and complex UTI, seen on a monthly basis dating back to September of this year. Last evening he was at a [employer] event with his spouse and had returned to her and told her he did not feel well. There were several paramedics that were onsite and the patient was assessed. Due to his cognitive impairment he was unable to provide a very good history but he apparently grasped his chest and upper abdomen and was noted to be hot and perspiring heavily. He was therefore brought to the emergency department for further evaluation. At present he has no complaints. He does not have any recollection of last night's events. Telemetry reveals sinus rhythm in the 60s. Allergies Allergy/AdvReac Type Severity Reaction Status Date / Time Penicillins Allergy Severe SEE COMMENT Verified 11/30/23 01:21 erythromycin base Allergy Intermediate Itching Verified 11/30/23 01:21 indomethacin Allergy Intermediate HIVES Verified 11/30/23 01:21 neomycin Allergy Intermediate BLISTERS Verified 11/30/23 01:21 vancomycin Allergy Intermediate ITCHING--ALL Verified 11/30/23 01:21 MYCIN DRUGS fentanyl AdvReac Severe "DID NOT Verified 11/30/23 01:21 TOLERATE"-patch- "went nuts" ibuprofen AdvReac Severe Ulcer Verified 11/30/23 01:21 history ketorolac AdvReac Mild NAUSEA Verified 11/30/23 01:21 aspirin AdvReac Unknown "BLEEDING" Verified 11/30/23 01:21 S/P GASTRIC BYPASS Home Medications Medication Instructions Recorded Confirmed Type cyclobenzaprine 10 mg tablet 10 mg PO BID 02/01/24 02/25/24 History famotidine 40 mg tablet 40 mg PO HS 02/01/24 02/25/24 History folic acid 1 mg tablet 1 mg PO QAM 02/01/24 02/25/24 History memantine 10 mg tablet 10 mg PO AMHS 02/01/24 02/25/24 History mirtazapine 15 mg tablet 15 mg PO HS 02/01/24 02/25/24 History olanzapine 5 mg tablet 5 mg PO HS 02/01/24 02/25/24 History oxycodone-acetaminophen 5 mg-325 1 tab PO Q4H PRN pain,severe 02/01/24 02/25/24 History mg tablet pantoprazole 40 mg tablet,delayed 40 mg PO AMHS 02/01/24 02/25/24 History release promethazine 12.5 mg tablet 12.5 mg PO TID PRN Nausea 02/01/24 02/25/24 History thiamine HCl (vitamin B1) 100 mg 100 mg PO QAM 02/01/24 02/25/24 History tablet tamsulosin 0.4 mg capsule 0.4 mg PO HS 30 days #30 caps 02/14/24 02/25/24 Rx allopurinol 300 mg tablet 300 mg PO DAILY 02/25/24 02/25/24 History atorvastatin 10 mg tablet 10 mg PO QAM 02/25/24 02/25/24 History cefdinir 300 mg capsule 300 mg PO BID 02/25/24 02/25/24 History cyanocobalamin (vitamin B-12) 1,000 mcg IM .EVERY 4 WEEKS 02/25/24 02/25/24 History 1,000 mcg/mL injection solution docusate sodium 100 mg capsule 200 mg PO AMHS 02/25/24 02/25/24 History loratadine 10 mg tablet 10 mg PO QAM 02/25/24 02/25/24 History lorazepam 1 mg tablet 1 mg PO Q8 PRN Anxiety 02/25/24 02/25/24 History melatonin 10 mg tablet 10 mg PO HS 02/25/24 02/25/24 History morphine 5 mg/mL injection solution 0 mg continuous subcutaneous 02/25/24 02/25/24 History infusion .WEANING OFF oxycodone 10 mg tablet 10 mg PO AMHS 02/25/24 02/25/24 History polyethylene glycol 3350 17 gram 17 g PO QAM PRN constiopation 02/25/24 02/25/24 History oral powder packet (Miralax) trazodone 50 mg tablet 25 mg PO HS PRN Insomnia 02/25/24 02/25/24 History zinc acetate 50 mg (zinc) capsule 50 mg PO DAILY 02/25/24 02/25/24 History Patient History Medical History History of fracture of right ankle Hx of fracture of skull 7 FX AND HAS SOME PROBLEMS WITH MEMORY Gastric ulcer Hydronephrosis B/L per [facility] 10/12/18 Surgical History S/P ureteral stent placement History of cystoscopy W/ LITHO/BASKET STONE EXTRACTION - 10/07/18 [facility]. LMA #5. History of surgery on left wrist History of arthroscopy of right shoulder Hx of right knee surgery S/P insertion of intrathecal pump FOLLOW WITH DR LAKIA PACKER FROM [place] History of back surgery UPPER BACK FUSION, 7 DIFFERENT FRACTURES AND MULTIPLE SURGERIES AND IS FUSED multiple revisions H/O inguinal hernia repair H/O lithotripsy S/P exploratory laparotomy (Unknown) 2010 RUPTURED DIVERTICULI S/P appendectomy (Unknown) S/P cholecystectomy (Unknown) S/P gastric bypass mike en y (2010) Family History Mother DM type 2 (diabetes mellitus, type 2) Father DM type 2 (diabetes mellitus, type 2) Social History Smoking Status: Never smoker Tobacco Type: Smokeless Tobacco (Dip or Chew) Second Hand Exposure: No; Do You Dip or Chew Tobacco: Yes; Hx Alcohol Use: No Hx Substance Use: No Preferred Language: Bruneian Communication Ability: Effective Communication Ability Comment: Unable to write per spouse & reading difficulty Visual Impairment: No Limitations Director Mba Required: No Beliefs That Will Affect Care: None Current Living Situation: Spouse Current Living Situation Comment: lives with Other Information That Helps Us Care for You: No Feels Safe at Home: Yes Safety Concerns: Feels Safe At This Time Assistive Devices: Wheelchair Review of Systems Review of Systems: All systems reviewed & are unremarkable except as noted in HPI & below Physical Exam Physical Exam: General:No acute distress Eyes: conjunctiva are pink and non-injected, sclera clear Neck: normal jugular venous pulse, no hepatojugular reflux Chest: normal shape and normal respiratory effort Lungs: clear to auscultation and percussion Cardiac Exam: - regular heart sounds, no murmurs, rubs, or gallops, no jugular venous distention Abdomen: abdomen soft, non-tender, no abnormal masses and no hepatosplenomegaly Musculoskeletal: no gait disturbance, no weakness Extremities: no edema and no cyanosis Neuro:awake, conversant,Unable to provide history due to cognitive impairment, no focal weakness Results & Data Vital Signs (Past 12 Hours) Vital Signs Temp Pulse Pulse Resp BP Pulse Ox Pulse Ox 02/26/24 09:18 60 16 02/26/24 09:00 118/82 02/26/24 09:00 118/82 02/26/24 08:54 63 16 02/26/24 08:05 63 17 99 02/26/24 07:08 65 13 98 02/26/24 06:30 58 L 13 108/71 97 02/26/24 05:26 58 L 17 98 02/26/24 05:00 117/76 02/26/24 04:00 59 L 12 113/79 96 02/26/24 02:00 55 L 15 118/83 97 02/26/24 01:09 141/65 H 02/26/24 01:05 36.9 C 76 16 100 02/26/24 01:05 99 02/26/24 00:30 117/79 99 02/26/24 00:03 62 17 109/68 98 02/25/24 23:10 61 18 107/72 100 O2 Del Method O2 Del Method 02/26/24 09:18 02/26/24 09:00 02/26/24 09:00 02/26/24 08:54 02/26/24 08:05 Room Air 02/26/24 07:08 Room Air 02/26/24 06:30 Room Air 02/26/24 05:26 Room Air 02/26/24 05:00 02/26/24 04:00 Room Air 02/26/24 02:00 Room Air 02/26/24 01:09 02/26/24 01:05 Room Air 02/26/24 01:05 Room Air 02/26/24 00:30 Room Air 02/26/24 00:03 Room Air 02/25/24 23:10 Laboratory Results Cardiac Enzymes 02/25/24 02/26/24 Range/Units 20:40 04:31 AST 16 (13-39) U/L Troponin I High Sens 6.3 8.1 (0-20) pg/ml Coagulation 02/25/24 Range/Units 20:40 PT 11.1 (9.0-12.0) Seconds APTT 28 (21-31) Seconds CBC 02/25/24 02/26/24 Range/Units 20:40 04:31 WBC 5.46 6.61 (4.8-10.8) K/ul RBC 3.84 L 3.71 L (4.70-6.10) M/uL Hgb 11.3 L 10.9 L (14.0-18.0) g/dl Hct 34.7 L 33.0 L (42.0-52.0) % Plt Count 231 221 (130-400) K/uL Neut # (Auto) 3.11 3.40 (1.40-6.50) K/uL Lymph # (Auto) 1.65 2.45 (1.20-3.40) K/uL [place] # (Auto) 0.64 H 0.61 H (0.11-0.59) K/uL Eos # (Auto) 0.01 0.10 (0.00-0.50) K/uL Baso # (Auto) 0.03 0.04 (0.00-0.20) K/uL Comprehensive Metabolic Panel 02/25/24 02/26/24 Range/Units 20:40 04:31 Sodium 139 143 (136-145) mmol/L Potassium 3.4 L 3.5 (3.5-5.1) mmol/L Chloride 103 108 H (98-107) mmol/L Carbon Dioxide 28 30 (21-32) mmol/L BUN 13 14 (6-23) mg/dl Creatinine 1.36 1.34 (0.6-1.4) mg/dl Glucose 67 L 100 H (70-99(Fasting)) mg/dl Calcium 8.8 8.9 (8.6-10.3) mg/dl AST 16 (13-39) U/L ALT 10 (7-52) U/L Alkaline Phosphatase 106 H (34-104) U/L Total Protein 6.0 (6.0-8.3) gm/dl Albumin 3.8 (3.4-5.0) gm/dl Intake and Output 02/25/24 02/26/24 02/26/24 22:59 06:59 14:59 Other: Weight 81.4 kg 81.4 kg Weight Measurement Method Built in [facility] Built in [facility] Diagnostic Findings EKG performed 02/25/2024 and interpreted independently: Sinus rhythm at 70 bpm, incomplete right bundle branch block, mild nonspecific repolarization abnormalities. Compared to the previous tracing performed 02/12/2024 the QRS duration is mildly increased. (1) Chest pain Chest pain type: unspecified Qualified Code(s): R07.9 - Chest pain, unspecified
--- NOTE | 2024-02-26 11:55 | Communication Note ---
Date of Service: February 26, 2024 Repeat EKG performed this morning at 958 revealed sinus rhythm at 63 bpm, incomplete right bundle branch block pattern, corrected QT interval 458 ms. QRS morphology more consistent with incomplete right bundle branch block pattern than septal NH. No significant repolarization abnormalities. Third troponin this morning negative. High-sensitivity troponin negative x 3. Resting echocardiogram revealed normal LVEF and normal wall motion. No significant valvular disease. LVEF in the range of 55 to 60% Recommendations: No further cardiac testing felt to be indicated at present. Dietary order placed. Patient stable from a cardiac perspective for discharge.
--- NOTE | 2024-02-26 15:25 | Discharge Summary ---
Date of Service February 26, 2024 Admission HPI Per Admitting Provider 58-year-old male with past medical history significant for gout, dementia, history of CAD, history of right upper lobe pulmonary nodule, GERD, status post gastric bypass, history of diverticulitis, CKD stage III, iron deficiency anemia, spinal fusion surgery, history of skull fracture, history of kidney stones who lives at home with his comes because of chest pain. Patient says he had episode of chest pain for brief period today. Currently no chest pain. Currently denies shortness of breath. No cough. No fevers. No headache. No dizziness. No nausea or abdominal pain. Normal bowel and bladder movements. States he ambulates without support. Hemodynamics are okay. Patient is currently alert and oriented x 3 and able to give his history. Past med history. As mentioned above Past surgical history. Amputation of left second finger. Colonoscopy. EGD. Exploratory laparotomy. ESWL. Laparoscopic gastric bypass [place]. Diagnostic laparoscopy. Laparoscopic cholecystectomy. Appendectomy. Repair of inguinal hernia left side. Repair of knee ligament. Spinal fusion surgery. Upper GI endoscopy. Social history. . No smoking. Alcohol occasional. No drug use. Family history. Father had diabetes. Hypertension. Mother had diabetes. Hypertension. Admission Exam Per Admitting Provider General- Not in distress Head- atraumatic Eyes- PERRL. ENT- oropharynx clear Neck- supple, no JVD. Lungs- clear to auscultation no wheezing or crackles. Heart- regular rate and rhythm; no murmur, no gallop. Abdomen- normal bowel sounds, soft, nontender, no distension Extremities- no pretibial edema, no erythema seen Neuro- alert, oriented x 3; PERRL, E no facial palsy; no dysarthria; moves extremities Principal Diagnosis Chest pain Discharge Exam General- slim M in NAD Eyes- EOMI, PERRL. Neck- supple, no JVD. Lungs- clear to auscultation no wheezing or crackles. Heart- regular rate and rhythm; no murmur, no gallop. Abdomen- normal bowel sounds, soft, nontender, no distension Extremities- no pretibial edema, no erythema seen Neuro- awake and alert, no facial palsy;able to answer simple questions appropriately but difficult to provide whole history - this seems baseline, moves extremities Discharge Data Allergies Allergy/AdvReac Type Severity Reaction Status Date / Time Penicillins Allergy Severe SEE COMMENT Verified 11/30/23 01:21 erythromycin base Allergy Intermediate Itching Verified 11/30/23 01:21 indomethacin Allergy Intermediate HIVES Verified 11/30/23 01:21 neomycin Allergy Intermediate BLISTERS Verified 11/30/23 01:21 vancomycin Allergy Intermediate ITCHING--ALL Verified 11/30/23 01:21 MYCIN DRUGS fentanyl AdvReac Severe "DID NOT Verified 11/30/23 01:21 TOLERATE"-patch- "went nuts" ibuprofen AdvReac Severe Ulcer Verified 11/30/23 01:21 history ketorolac AdvReac Mild NAUSEA Verified 11/30/23 01:21 aspirin AdvReac Unknown "BLEEDING" Verified 11/30/23 01:21 S/P GASTRIC BYPASS Consultations 02/25/24 22:17 ED Decision to Admit Stat 02/26/24 08:00 Consult Cardiology Routine Hospital Course (1) Chest pain: 58 yo M with PMH significant for gout, dementia, history of CAD, history of rig ht upper lobe pulmonary nodule, GERD, status post gastric bypass, history of diverticulitis, CKD stage III, iron deficiency anemia, spinal fusion surgery, history of skull fracture, history of kidney stones who lives at home with his comes because of chest pain. Patient says he had episode of chest pain for brief period today. Currently no chest pain. Currently denies shortness of breath. No cough. No fevers. No headache. No dizziness. No nausea or abdominal pain. Normal bowel and bladder movements. States he ambulates without support. Hemodynamics are okay. Patient is currently alert and oriented x 3 and able to give his history. Chest pain Currently resolved Initial troponin 6.3, repeat troponin negative Monitoring med telemetry Repeat EKG unremarkable, and reviewed by cardiology Echo obtained Cardiology consulted and discussed with Per cardiology - Repeat EKG performed this morning at 958 revealed sinus rhythm at 63 bpm, incomplete right bundle branch block pattern, corrected QT interval 458 ms. QRS morphology more consistent with incomplete right bundle branch block pattern than septal VT. No significant repolarization abnormalities. Third troponin this morning negative. High-sensitivity troponin negative x 3. Resting echocardiogram revealed normal LVEF and normal wall motion. No significant valvular disease. LVEF in the range of 55 to 60% Recommendations: No further cardiac testing felt to be indicated at present. Patient stable from a cardiac perspective for discharge. History of dementia Moderate to advanced Continue memantine Monitor for delirium Hyperlipidemia On statin History of gout Allopurinol GERD On famotidine and Protonix Chronic anemia Continue vitamin supplements History of gastric bypass On B12 shots History of nonobstructive CAD On statin BPH On Flomax CKD stage III Creatinine 1.3 Total Time Total Time Spent Total Time Spent (In Minutes): 40 Discharge Plan Discharge Items Patient Disposition: Home - Self-Care Reason For Visit: CHEST PAIN Discharge Diagnosis: Chest pain Activity: Per Instructions section Non-emergency contact: Primary Care Provider Call non-emergency contact if: you have any medication questions and your symptoms worsen Follow-up/Referrals: Charles Mayer DO [Primary Care Provider] - (Date & Time 03/01/2024 1:20 PM Provider Charles Mayer DO [facility] ) Diet: Heart Healthy Addtl Attending Provider Instructions: Follow up with your primary care doctor, the appointment was scheduled for you for 03/01/2024. Pending Studies at Discharge: No Stand-Alone Forms: My [facility] [place], Smoking Cessation Medications and DC Order Prescriptions: New potassium chloride 10 mEq Tablet,Er Particles/Crystals 10 meq PO DAILY Qty: 14 0RF magnesium oxide 400 mg (241.3 mg magnesium) Tablet 400 mg PO QAM Qty: 14 0RF Continued tamsulosin 0.4 mg Capsule 0.4 mg PO HS 30 Days Qty: 30 0RF allopurinol 300 mg tablet 300 mg PO DAILY trazodone 50 mg tablet 25 mg PO HS PRN (Reason: Insomnia) oxycodone 10 mg tablet 10 mg PO AMHS cefdinir 300 mg capsule 300 mg PO BID Rx Instructions: end date 02/26/2024 cyanocobalamin (vitamin B-12) [Vitamin B-12] 1,000 mcg/mL Solution 1,000 mcg IM .EVERY 4 WEEKS lorazepam 1 mg tablet 1 mg PO Q8 PRN (Reason: Anxiety) docusate sodium 100 mg capsule 200 mg PO AMHS Rx Instructions: hold taking it if you develop diarrhea melatonin 10 mg Tablet 10 mg PO HS atorvastatin 10 mg tablet 10 mg PO QAM zinc acetate 50 mg (zinc) Capsule 50 mg PO DAILY polyethylene glycol 3350 [Miralax] 17 gram Powder In Packet 17 g PO QAM PRN (Reason: constiopation) morphine 5 mg/mL Solution 0 mg continuous subcutaneous infusion .WEANING OFF Rx Instructions: pain clinic currently weaning pt off with 1 week left...per loratadine 10 mg Tablet 10 mg PO QAM cyclobenzaprine 10 mg tablet 10 mg PO BID promethazine 12.5 mg tablet 12.5 mg PO TID PRN (Reason: Nausea) famotidine 40 mg tablet 40 mg PO HS olanzapine 5 mg tablet 5 mg PO HS thiamine HCl (vitamin B1) 100 mg Tablet 100 mg PO QAM oxycodone-acetaminophen 5-325 mg tablet 1 tab PO Q4H PRN (Reason: pain,severe) pantoprazole 40 mg tablet,delayed release (DR/EC) 40 mg PO AMHS folic acid 1 mg Tablet 1 mg PO QAM mirtazapine 15 mg tablet 15 mg PO HS memantine 10 mg tablet 10 mg PO AMHS Discharge Orders: Discharge Order (Routine); Ordered 02/26/24 Ordered By: Maurizio John Admission Data Admit Date/Time: 02/25/24 23:31 Attending Provider: Maurizio John Admit Provider: Gianluca Isbell Primary Care Provider: Charles Mayer Other Providers: Gianluca Isbell; Derick Joy
[2024-02-26 15:34] VITALS: RESP 18
[2024-02-26 16:04] VITALS: O2SAT 100
[2024-02-26 16:19] VITALS: BP 123/85; PULSE 66
[2024-02-26] MEDS ORDERED: MELATONIN 3 MG TAB PO SCH (21:00)
[2024-02-26] MEDS ORDERED: TAMSULOSIN HCL 0.4 MG CAP PO SCH (21:00)
[2024-02-26] MEDS ORDERED: FAMOTIDINE 40 MG TABLET PO SCH (21:00)
[2024-02-26] MEDS ORDERED: MIRTAZAPINE TAB 15 MG TAB PO SCH (21:00)
[2024-02-26] MEDS ORDERED: OLANZapine 5 MG TABLET PO SCH (21:00)
--- OUTSIDE RECORDS SUMMARY | 2024-02-26 23:22 | External Medical Summary | Summary of Care ---
Author Name Unknown Organization [facility] Address [address] [place] [address] Phone [phone] Care Team Providers Care Resident Care Aide Name Role Phone Marsha Mayeradin Galloshawn Primary Care Provider Reason for Visit * Reason Onset Date Comments [facility]: Engagement 02/23/2024 Encounter Details Date Type Department Care Team (Late st Contact Info) Description 02/23/2024 Telephone [facility], [facility] [address] [place] [address] Aure Garcia, JALIL [address] [place] [address] [facility]: Engagement Allergies Active Allergy Reactions Criticality Noted Date [...] as of this encounter (statuses as of 02/23/2024) Medications MORPHINE 5 MG/ML EARTH MOVING MACHINE OPERATOR SQ INFUSION (AMBULATORY)[place] cations:MEDICATI ON USE AGREEMENT Dose morphine per Pain management 1 Bolus Dosing Unit 5 4 Active Pantoprazole Sodium 40 MG Oral Tablet Delayed Release (Protonix)Indica tions:Acute gastric ulcer with hemorrhage TAKE ONE TABLET BY MOUTH TWICE A DAY - MORNING AND BEFORE BEDTIME 200 Tablet 1 10/02/2023 12:11 PM EDT 4 06/22/19 25 Active Memantine HCl 10 MG Oral Tablet (Namenda) Take 1 Tablet by mouth in the morning and 1 Tablet before bedtime. 180 Tablet 3 09/19/2023 7:41 AM EDT 4 Active Allopurinol 300 MG Oral Tablet (Zyloprim)Indica tions:Gout TAKE ONE TABLET BY MOUTH EVERY DAY 100 Tablet 1 10/02/2023 12:11 PM EDT 4 Active Famotidine 40 MG Oral Tablet (Pepcid)Indicati ons:Gastroesopha geal reflux disease without esophagitis Take 1 Tablet by mouth in the morning. 30 Tablet 11 4 Active Additional Information Patient taking differently:40 mg Oral Daily(AM),Takes at bedtime, Reported on 02/16/2024 Loratadine 10 MG Oral Capsule Take 1 [...] by mouth in the morning. 4 Active Natural Vegetable Laxative Oral Tablet Take by mouth. Takes 2 tabs at bedtime Active traZODone HCl 50 MG Oral Tablet (Desyrel)Indicat ions:Coronary artery disease involving [place] coronary artery of [place] heart without angina pectoris,Stage 3a chronic kidney disease (HCC),Gastroesop hageal reflux disease without esophagitis,Oscar ntia (HCC) Take one-half tablet by mouth at bedtime for 5 days then stop 90 Tablet 3 4 Active Additional Information Patient not taking.Reported on 02/16/2024 Promethazine HCl 12.5 MG Oral Tablet (Phenergan)Indic ations:Vascular dementia with agitation, unspecified dementia severity (HCC) Take 1 Tablet by mouth every 8 hours as needed for Nausea. 30 Tablet 11 4 Active Mirtazapine 15 MG Oral Tablet (Remeron) Take 1 Tablet by mouth at bedtime. 30 Tablet 1 4 Active OLANZapine 5 MG Oral Tablet (zyPREXA) Take 1 Tablet by mouth at bedtime. 30 Tablet 4 Active Polyethylene Glycol 3350 17 GM Oral Packet (MiraLax) Take 1 Packet by mouth in the morning. As needed . Active oxyCODONE-Acetam inophen 5-325 MG Oral Tablet (Percocet) Take 1 Tablet by mouth every 4 hours as needed for Pain, Severe. 30 Tablet 4 Active Tamsulosin HCl 0.4 MG Oral Capsule (Flomax) Take 1 Capsule by mouth in the morning. Active oxyCODONE HCl 10 MG Oral Tablet (Roxicodone)[place] cations:Other chronic pain Take 1 Tablet by mouth in the morning and 1 Tablet before bedtime. 60 Tablet 02/17/2024 7:53 AM EST 4 Active Cefdinir 300 MG Oral Capsule (Omnicef)Indicat ions:Infective urethritis Take 1 Capsule by mouth in the morning and 1 Capsule before bedtime. Do all this for 10 days. 20 Capsule 4 02/26/20 24 Active Hospital, Clinic, or Other Facility Administered Medication Ordered Dose Route Frequency Start Date End Date Status Vitamin B-12 (Cyanocobalamin) inj 1,000 mcgIndications:B12 deficiency 1000 mcg IM [id number] 01/28/2024 12/29/2024 Active documented as of this encounter (statuses as of 02/23/2024) Active Problems Problem Noted Date Diagnosed Date [...] anemia 04/24/2017 Coronary artery disease invo lving [place] heart without angina pectoris 04/18/2016 Incomplete tear of right rotator cuff 04/15/2016 Overview (04/15/2016): 04/23 Dr Eduardo guerrero. Anxiety 09/28/2014 Diverticulitis of colon 09/16/2014 Intestinal postoperative nonabsorption 1 CALLAHAN RESEARCH OTHER*[id number] 09/14/2009 MEDICATION USE AGREEMENT 05/19/2008 Overview (05/19/2008): See julio GERD (gastroesophageal reflux disease) Gout S/P gastric bypass S/P spinal fusion documented as of this encounter (statuses as of 02/23/2024) Resolved Problems Problem Noted Date Diagnosed Date Resolved Date Kidney disease, chronic, sta ge III (GFR 30-59 ml/min) 11/16/2018 02/17/2020 Overview: Per CKD protocol Well adult exam 04/18/2016 09/24/2018 Overview (06/01/2018): ??Need eval hypoglycemia? S/p gastric bypass. 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 She was not aware the referral was at home. Please assist with scheduling at the office. JALIL Arvizu * Telephone Encounter - Aure Garcia OSA - 02/23/2024 10:18 AM EST Lmom for patients family member to call back. Looking to schedule enrollment. Ann Martinez ok'd to enrollment so [facility] palliative can see him Can offer: 02/27/24 with MAGDALENA Arthur 03/23/24 with Gregg Rosen PA-C Provided call back number of [phone] JALIL Arvizu documented in this encounter Plan of Treatment Upcoming Encounters Date Type Department Care Team (Late st Contact Info) Description 04/15/2024 9:00 AM EST Office Visit Neurology [address] [place], [place] [address] Heather Franklin CRNP [address] [facility] [place] [address] 05/20/2024 1:40 PM EST Office Visit [facility] [address] [place] [address] Charles Mayer, DO [address] [place] [address] 10/28/2024 11:40 AM EDT Office Visit [facility] [address] [place] [address] Charles Mayer, DO [address] [facility] [place] [address] Scheduled Procedures Name Priority Associated Diagnoses Date/Ti [...] Additional history exists CKD HGB USE SMARTSET 58097 11/24/202411/24, 11/25/2023, 06/11/2023, Additional history exists CKD PHOS USE SMARTSET 68597 11/24/202411/06, 06/11/2023, 12/24/2019 Depression Screening 01/21/2025 01/22/2024 [...] Documents on File Type Date Recorded Patient Sterilizer Operator Expl 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 Care Teams Resident Care Aide Relationship Specialty Start Date End Date Charles Mayer DO [address] [place] [address] PCP - General Family Medicine 05/26/23 documented as of this encounter
--- OUTSIDE RECORDS SUMMARY | 2024-02-26 23:22 | External Medical Summary | Summary of Care ---
Author Name Unknown Organization [facility] Address [address] [place] [address] Phone [phone] Care Team Providers Care Product Specialist Name Role Phone Marsha Mayeradin Galloshawn Primary Care Provider Reason for Visit * Reason Onset Date Comments [facility]: Engagement 02/23/2024 Encounter Details Date Type Department Care Team (Late st Contact Info) Description 02/23/2024 Telephone [facility], [facility] [address] [place] [address] Aure Garcia, JALIL [address] [place] [address] [facility]: Engagement Allergies [...] as of this encounter (statuses as of 02/24/2024) Medications MORPHINE 5 MG/ML USER EXPERIENCE ANALYST SQ INFUSION (AMBULATORY)Ind ications:MEDICA TION USE [...] mouth. Takes 2 tabs at bedtime Active Promethazine HCl 12.5 MG Oral Tablet (Phenergan)[place] cations:[place]ascul[place] r dementia with agitation, unspecified dementia severity (HCC) Take 1 Tablet by mouth every 8 hours as needed for Nausea. 30 Tablet 11 4 Active Mirtazapine 15 MG Oral Tablet (Remeron) Take 1 Tablet by mouth at bedtime. 30 Tablet 1 4 Active Polyethylene Glycol 3350 17 GM [...] Active oxyCODONE HCl 10 MG Oral Tablet (Roxicodone)Ind ications:Other chronic pain Take 1 Tablet by mouth in the morning and 1 Tablet before bedtime. 60 Tablet 02/17/2024 7:53 AM EST 4 Active Cefdinir 300 MG Oral Capsule (Omnicef)Indica tions:Infective urethritis Take 1 Capsule by mouth in the morning and 1 Capsule before bedtime. Do all this for 10 days. 20 Capsule 4 024 Active traZODone HCl 50 MG Oral Tablet (Desyrel)Indica tions:Coronary artery disease involving [place] coronary artery of [place] heart without angina pectoris,Stage 3a chronic kidney disease (HCC),Gastroeso phageal reflux disease without esophagitis,[place] ent[place] (HCC) Take one-half tablet by mouth at bedtime for 5 days then stop 90 Tablet 3 4 024 Discontin ued(Refil l) OLANZapine 5 MG Oral Tablet (zyPREXA) Take 1 Tablet by mouth at bedtime. 30 Tablet 4 024 Discontin ued(Refil l) Hospital, Clinic, or Other Facility Administered Medication Ordered Dose Route Frequency Start Date End Date Status Vitamin B-12 (Cyanocobalamin) inj 1,000 mcgIndications:B12 deficiency 1000 mcg IM [id number] 01/28/2024 12/29/2024 Active documented as of this encounter (statuses as of 02/24/2024) Active Problems Problem Noted Date Diagnosed Date [...] anemia 04/24/2017 Coronary artery disease invo lving [place] heart without angina pectoris 04/18/2016 Incomplete tear of right rotator cuff 04/15/2016 Overview (04/15/2016): 04/23 Dr Eduardo guerrero. Anxiety 09/28/2014 Diverticulitis of colon 09/16/2014 Intestinal postoperative nonabsorption 1 CALLAHAN RESEARCH OTHER*[id number] 09/14/2009 MEDICATION USE AGREEMENT 05/19/2008 Overview (05/19/2008): See kim GERD (gastroesophageal reflux disease) Gout S/P gastric bypass S/P spinal fusion documented as of this encounter (statuses as of 02/24/2024) Resolved Problems Problem Noted Date Diagnosed Date Resolved Date Kidney disease, chronic, sta ge III (GFR 30-59 ml/min) 11/16/2018 02/17/2020 Overview: Per CKD protocol Well adult exam 04/18/2016 09/24/2018 Overview (06/01/2018): ??Need eval hypoglycemia? S/p gastric bypass. 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 Ann Martinez ok'd to enrollment so [facility] palliative can see him Can offer: 02/27/24 with MAGDALENA Arthur 03/23/24 with Gregg oRsen PA-C Provided call back number of [phone] JALIL Arvizu documented in this encounter Plan of Treatment Upcoming Encounters Date Type Department Care Team (Late st Contact Info) Description 04/15/2024 9:00 AM EST Office Visit Neurology [address] [place] [phone] Heather Franklin CRNP [address] [facility] [place] [id number] 05/20/2024 1:40 PM EST Office Visit [facility] [address] [place] [address] Charles Mayer, DO [address] [place] [address] 10/28/2024 11:40 AM EDT Office Visit [facility] [address] [place] [address] Charles Mayer, [address] [facility] [place] [address] Scheduled Procedures Name Priority Associated Diagnoses Date/Ti [...] Additional history exists CKD HGB USE SMARTSET 52148 11/24/202411/24, 11/25/2023, 06/11/2023, Additional history exists CKD PHOS USE SMARTSET 26752 11/24/2024 08/, 06/11/2023, 12/24/2019 Depression Screening 01/21/2025 01/22/2024 Diabetes [...] Documents on File Type Date Recorded Patient Market Development Specialist Expl 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 Care Teams Product Specialist Relationship Specialty Start Date End Date Charles Mayer DO [address] [place] [address] PCP - General Family Medicine 05/26/23 documented as of this encounter
--- OUTSIDE RECORDS SUMMARY | 2024-02-26 23:22 | External Medical Summary | Summary of Care ---
Author Name Unknown Organization [facility] Address [address] [place] [address] Phone [phone] Care Team Providers Care Chief Information Security Officer Name Role Phone Marsha Mayeradin Galloshawn Primary Care Provider Reason for Visit * Reason Onset Date Comments [facility]: Engagement 02/23/2024 Encounter Details Date Type Department Care Team (Late st Contact Info) Description 02/23/2024 Telephone [facility], [facility] [address] [place] [address] Aure Garcia, JALIL [address] [place] [address] [facility]: Engagement Allergies [...] as of 02/24/2024) Medications MORPHINE 5 MG/ML CONTINUOUS DRYOUT OPERATOR HELPER SQ INFUSION (AMBULATORY)Ind ications:MEDICA TION USE AGREEMENT [...] BY MOUTH EVERY DAY 100 Tablet 1 02/24/2024 11:00 AM EST 4 Active Famotidine 40 MG Oral Tablet (Pepcid)Indicat ions:Gastroesop hageal reflux disease without esophagitis Take 1 Tablet by mouth in the morning. 30 Tablet 11 02/24/2024 11:00 AM EST 4 Active Additional Information Patient taking differently:40 [...] Oral Tablet (Desyrel)Indica tions:Coronary artery disease involving [place] coronary artery of [place] heart without angina pectoris,Stage 3a chronic kidney [...] inj 1,000 mcgIndications:B12 deficiency 1000 mcg IM [id number] 01/28/2024 12/29/2024 Active documented as of this [...] Coronary artery disease invo lving [place] heart without angina pectoris 04/18/2016 Incomplete tear of right rotator cuff 04/15/2016 Overview (04/15/2016): 04/23 Dr Eduardo guerrero. Anxiety 09/28/2014 Diverticulitis of colon 09/16/2014 Intestinal postoperative nonabsorption 1 CALLAHAN RESEARCH OTHER*[id number] 09/14/2009 MEDICATION USE AGREEMENT 05/19/2008 Overview (05/19/2008): [...] S/p gastric bypass. 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 Ann Martinez ok'd to enrollment so [facility] palliative can see him Can offer: 02/27/24 with MAGDALENA Arthur 03/23/24 with Gregg Rosen PA-C Provided call back number of [phone] JALIL Arvizu documented in this encounter Plan of Treatment Upcoming Encounters Date Type Department Care Team (Late st Contact Info) Description 03/10/2024 1:00 PM EST Office Visit Palliative Medicine [facility] [address] [place] [address] Josseline Post MD [address] [place] [address] 04/15/2024 9:00 AM EST Office Visit Neurology [address] [place] [address] Heather Franklin CRNP [address] [place] [address] 05/20/2024 1:40 PM EST Office Visit [facility] [address] [facility] [place] [address] Charles Mayer, [address] [place] [address] 10/28/2024 11:40 AM EDT Office Visit [facility] [address] [facility] [place] [address] Charles Mayer, [address] [place] [address] Scheduled Procedures Name Priority Associated Diagnoses Date/Ti [...] Additional history exists CKD HGB USE SMARTSET 95235 11/24/202411/24, 11/25/2023, 06/11/2023, Additional history exists CKD PHOS USE SMARTSET 65759 11/24/202411/06, 06/11/2023, 12/24/2019 Depression Screening 01/21/2025 01/22/2024 [...] Documents on File Type Date Recorded Patient Polystyrene Bead Molder Expl 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 Care Teams Chief Information Security Officer Relationship Specialty Start Date End Date Charles Mayer DO [address] [place] [address] PCP - General Family Medicine 05/26/23 documented as of this encounter
--- OUTSIDE RECORDS SUMMARY | 2024-02-26 23:22 | External Medical Summary | Summary of Care ---
Author Name Unknown Organization [facility] Address [address] [place] [facility] [place] [address] Phone [phone] Care Team Providers Care Lathe Scalper Operator Name Role Phone Charles Mayer DO Primary Care Provider Encounter Details Date Type Department Care Team (Late st Contact Info) Description 02/16/2024 Population Health External Data Unspecified Department Allergies [...] as of this encounter (statuses as of 02/16/2024) Medications MORPHINE 5 MG/ML RESIDENTIAL MORTGAGE MANAGER SQ INFUSION (AMBULATORY)[place] cations:MEDICATI ON USE AGREEMENT [...] Oral Tablet (Desyrel)Indicat ions:Coronary artery disease involving [place] coronary artery of [place] heart without angina pectoris,Stage 3a chronic kidney disease (HCC),Gastroesop hageal reflux disease without esophagitis,Oscar ntia (HCC) Take one-half tablet by mouth at bedtime for 5 days then stop 90 Tablet 3 4 Active Promethazine HCl 12.5 MG Oral Tablet (Phenergan)Indic [...] for Pain, Severe. 30 Tablet 4 Active Hospital, Clinic, or Other Facility Administered Medication Ordered Dose Route Frequency Start Date End Date Status Vitamin B-12 (Cyanocobalamin) inj 1,000 mcgIndications:B12 deficiency 1000 mcg IM [id number] 01/28/2024 12/29/2024 Active documented as of this encounter (statuses as of 02/16/2024) Active Problems Problem Noted Date Diagnosed Date [...] anemia 04/24/2017 Coronary artery disease invo lving [place] heart without angina pectoris 04/18/2016 Incomplete tear of right rotator cuff 04/15/2016 Overview (04/15/2016): 04/23 Dr Eduardo guerrero. Anxiety 09/28/2014 Diverticulitis of colon 09/16/2014 Intestinal postoperative nonabsorption 1 CALLAHAN RESEARCH OTHER*[id number] 09/14/2009 MEDICATION USE AGREEMENT 05/19/2008 Overview (05/19/2008): See kim GERD (gastroesophageal reflux disease) Gout S/P gastric bypass S/P spinal fusion documented as of this encounter (statuses as of 02/16/2024) Resolved Problems Problem Noted Date Diagnosed Date Resolved Date Kidney disease, chronic, sta ge III (GFR 30-59 ml/min) 11/16/2018 02/17/2020 Overview: Per CKD protocol Well adult exam 04/18/2016 09/24/2018 Overview (06/01/2018): ??Need eval hypoglycemia? S/p gastric bypass. 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 Not on file Not on file documented as of this encounter Plan of Treatment Upcoming Encounters Date Type Department Care Team (Late st Contact Info) Description 02/16/2024 11:00 AM EST [facility] [place] [address] Charles Mayer, [address] [facility] [place] [address] 04/15/2024 9:00 AM EST Office Visit Neurology [address], [place] [address] Heather Franklin, BANQUET SUPERVISOR [address] [place] [address] 10/28/2024 11:40 AM EDT Office Visit [facility] [address] [place] [address] Charles Mayer, [address] [facility] [place] [address] Scheduled Procedures Name Priority Associated Diagnoses Date/Ti me ESOPHAGOGASTRODUODENOSCOPY ( EGD), FLEXIBLE, TRANSORAL, DIAGNOSTIC Recall Esophageal reflux Health Maintenance Due Date Last Done Comments Cologuard 2008 Fecal Occult Blood Test 2008 Sigmoidoscopy 2008 Zoster Vaccines (1 of 2) 2013 Colonoscopy 06/03/2018 06/03/2017, 06/03/2017 Colorectal Cancer Screening 06/03/2018 COVID-19 Vaccine ( season) 2023 09/11/2020, 08/14/2020 Albumin/Creatinine Ratio 06/11/2024 06/12/2023, 0606/2014 GFR 07/28/2024 01/28/2024, 08/, 10/27/2023, Additional history exists CKD HGB USE SMARTSET 25927 11/24/202411/24, 11/25/2023, 06/11/2023, Additional history exists CKD PHOS USE SMARTSET 18429 11/24/2024 08/2 , 06/11/2023, 12/24/2019 Depression Screening [...] Documents on File Type Date Recorded Patient Director Of Property Management Expl 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 Care Teams Lathe Scalper Operator Relationship Specialty Start Date End Date Charles Mayer DO [address] [place] [address] PCP - General Family Medicine 05/26/23 documented as of this encounter
--- OUTSIDE RECORDS SUMMARY | 2024-02-26 23:22 | External Medical Summary | Summary of Care ---
Author Name Unknown Organization [facility] Address [address] [place] [place] [address] Phone [phone] Care Team Providers Care Substation Operator Name Role Phone Charles Mayer DO Primary Care Provider Reason for Referral * Evaluate & Treat - Unlimited Visits (Within 10 days (routine)) - Authorized Specialty Diagnoses / Procedures Referred By Contnic t Referred To Contact Hospice and Palliative Medicine / Palliative Medicine Diagnoses Dementia with psychosis (HCC) Vascular dementia without behavioral disturbance, psychotic disturbance, mood disturbance, or anxiety, unspecified dementia severity (HCC) Charles Mayer DO [address] [facility] [[email or web address]] [place] [address] Phone: tel: fax: Referral ID Status Reason Start Date Expiration Date Visits Requested Visits Authorized [id number] Authorized Specialty Services Required 4 [phone] Question Answer Referral Priority Within 10 days (routine) Where should this appointment be scheduled? [facility] Reason for Referral: Neurological Disease Palliative Medicine To Address: Pain & Symptom Management Referral Location [facility] - Palliative Care (Available only for P) Reason for Visit * Reason Comments Hospital Follow-Up Pt here for Hosp F/u . D/C from [facility] on 02/14/2024 for UTI. Encounter Details Date Type Department Care Team (Late st Contact Info) Description 02/16/2024 11:00 AM EST Office Visit Family Practice [facility] [address] [place] [address] Charles Mayer DO [address] [place] [address] Dementia with psychosis (HCC)*; Vascular dementia without behavioral disturbance, psychotic disturbance, mood disturbance, or anxiety, unspecified dementia severity (HCC); Idiopathic gout, unspecified chronicity, unspecified site; Need for case management follow-up; Coronary artery disease involving [place] coronary artery of [place] heart without angina pectoris; Other chronic pain; Infective urethritis Allergies Active Allergy Reactions Criticality Noted Date [...] as of 02/16/2024) Medications MORPHINE 5 MG/ML DESIGN ENGINEER SQ INFUSION (AMBULATORY)In dications:MEDI CATION USE AGREEMENT Dose morphine per Pain management 1 Bolus Dosing Unit 5 10/05/19 14 Active Pantoprazole Sodium 40 MG Oral Tablet Delayed Release (Protonix)[place] cations:Acute gastric ulcer with hemorrhage TAKE ONE TABLET BY MOUTH TWICE A DAY - MORNING AND BEFORE BEDTIME 200 Tablet 1 4 12:11 PM EDT 06/22/19 24 025 Active Memantine HCl 10 MG Oral Tablet (Namenda) Take 1 Tablet by mouth in the morning and 1 Tablet before bedtime. 180 Tablet 3 4 7:41 AM EDT 06/24/19 24 Active Allopurinol 300 MG Oral Tablet (Zyloprim)[place] cations:Gout TAKE ONE TABLET BY MOUTH EVERY DAY 100 Tablet 1 4 12:11 PM EDT 10/01/19 24 Active Famotidine 40 MG Oral Tablet (Pepcid)Indica tions:Gastroes ophageal reflux disease without esophagitis Take 1 Tablet by mouth in the morning. 30 Tablet 11 10/23/19 24 Active Additional Information Patient taking differently:40 mg Oral Daily(AM),Takes at bedtime, Reported on 02/16/2024 Loratadine 10 MG Oral Capsule Take 1 Capsule by mouth in the morning. Active Zinc Acetate 50 MG Oral Capsule Take 1 Capsule by mouth daily. Active Copper Caps 2 MG Oral Capsule (copper gluconate)[place] cations:Copper deficiency Take 8 mg of elemental copper each day orally for a week, 6 mg for the second week, 4 mg for the third week, and 2 mg thereafter 180 Capsule 3 11/25/19 24 Active Atorvastatin Calcium 10 MG Oral Tablet (Lipitor)Indic ations:Elevate d cholesterol Take 1 Tablet by mouth in the morning. 100 Tablet 2 4 11:31 AM EDT 11/27/19 24 Active Folic Acid 1 MG Oral Tablet Take 1 Tablet by mouth in the morning. 12/30/19 Active Cyanocobalamin 1000 MCG/ML Injection Kit Inject 1,000 mcg into a large muscle every 30 days. 01/14/20 Active LORazepam 1 MG Oral Tablet (Ativan) Take 1 Tablet by mouth every 8 hours as needed for Anxiety. 1 Tablet 01/14/20 Active Cyclobenzaprin e HCl 10 MG Oral Tablet Take 1 Tablet by mouth in the morning and 1 Tablet before bedtime. Takes 1 1/2 tabs (15 mg) three times day. 01/14/20 Active Docusate Sodium 100 MG Oral Capsule (Colace) Take 2 Capsules by mouth in the morning and 2 Capsules before bedtime. 01/14/20 Active Melatonin 10 MG Oral Tablet Take 1 Tablet by mouth at bedtime. 01/14/20 Active Thiamine HCl 100 MG Oral Tablet (vitamin B-1) Take 1 Tablet by mouth in the morning. 01/14/20 Active Natural Vegetable Laxative Oral Tablet Take by mouth. Takes 2 tabs at bedtime Active traZODone HCl 50 MG Oral Tablet (Desyrel)Indic ations:Coronar y artery disease involving [place] coronary artery of [place] heart without angina pectoris,Stage 3a chronic kidney disease (HCC),Gastroes ophageal reflux disease without esophagitis,De mentia ([facility]) Take one-half tablet by mouth at bedtime for 5 days then stop 90 Tablet 3 01/28/20 Active Additional Information Patient not taking.Reported on 02/16/2024 Promethazine HCl 12.5 MG Oral Tablet (Phenergan)Ind ications:Vascu lar dementia with agitation, unspecified dementia severity ([facility]) Take 1 Tablet by mouth every 8 hours as needed for Nausea. 30 Tablet 11 01/28/20 Active Mirtazapine 15 MG Oral Tablet (Remeron) Take 1 Tablet by mouth at bedtime. 30 Tablet 1 01/29/20 Active OLANZapine 5 MG Oral Tablet (zyPREXA) Take 1 Tablet by mouth at bedtime. 30 Tablet 01/29/20 Active Polyethylene Glycol 3350 17 GM Oral Packet (MiraLax) Take 1 Packet by mouth in the morning. As needed . Active oxyCODONE-Acet aminophen 5-325 MG Oral Tablet (Percocet) Take 1 Tablet by mouth every 4 hours as needed for Pain, Severe. 30 Tablet 02/13/20 Active Tamsulosin HCl 0.4 MG Oral Capsule (Flomax) Take 1 Capsule by mouth in the morning. Active oxyCODONE HCl 10 MG Oral Tablet (Roxicodone)In dications:Othe r chronic pain Take 1 Tablet by mouth in the morning and 1 Tablet before bedtime. 60 Tablet 02/16/20 24 Active Cefdinir 300 MG Oral Capsule (Omnicef)Indic ations:Infecti ve urethritis Take 1 Capsule by mouth in the morning and 1 Capsule before bedtime. Do all this for 10 days. 20 Capsule 02/16/20 24 Active oxyCODONE 2.5 mg OR TABS Take 1 Tablet by mouth every 4 hours as needed. Takes 5 mg every 4 hours 11/11/2 024 Discontinued Cefdinir 300 MG Oral Capsule (Omnicef) Take 1 Capsule by mouth in the morning and 1 Capsule before bedtime. 024 Discontinued(M edication List Clean Up) Hospital, Clinic, or Other Facility Administered Medication Ordered Dose Route Frequency Start Date End Date Status Vitamin B-12 (Cyanocobalamin) inj 1,000 mcgIndications:B12 deficiency 1000 mcg IM [id number] 01/28/2024 12/29/2024 Active documented as of this [...] anemia 04/24/2017 Coronary artery disease invo lving [place] heart without angina pectoris 04/18/2016 Incomplete tear of right rotator cuff 04/15/2016 Overview (04/15/2016): 04/23 Dr Eduardo guerrero. Anxiety 09/28/2014 Diverticulitis of colon 09/16/2014 Intestinal postoperative nonabsorption 1 CALLAHAN RESEARCH OTHER*[id number] 09/14/2009 MEDICATION USE AGREEMENT 05/19/2008 Overview (05/19/2008): [...] S/p gastric bypass. Pain mgmt Dr Syed Asencio--[facility] +pain pump 02/22 EGD-Gastric bypass [...] Tobacco use disorder 09/18/2009 011 Bariatric Proteinuria Research*[id number] 09/14/2009 12/27/2009 Organic sleep disorder 06/22/200910/10 Morbid [...] money to buy more. 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 Not on file Not on file documented as of this encounter Last Filed Vital Signs Vital Sign Reading Time Taken Comments Blood Pressure 106/68 02/16/2024 10:55 AM EST Pulse 95 02/16/2024 10:55 AM EST Temperature 36.5 C (97.7 F) 02/16/2024 10:[address] Respiratory Rate 16 02/16/2024 10:55 AM EST Oxygen Saturation 96% 02/16/2024 10:55 AM EST Inhaled Oxygen Concentration - - Weight 75.9 kg (167 lb 6 oz) 02/16/2024 10:55 AM EST Height - - Body Mass Index 22.7 01/14/2024 8:43 AM EDT documented in this encounter Progress Notes * Charles Mayer, - 02/16/2024 10:56 AM EST Images from the original note were not included. Assessment and Plan Assessment & Plan Hospital Discharge/UTI-sepsis Improved now after abx therapy Is doing well eating and drinking at home Having BMs more regularly And seems to be urinating normally now as well Chronic Kidney Disease (Stage 3) Recent hospitalization due to UTI, possibly related to urinary retention. -Provide prescription for the same antibiotic used in the hospital for patient to have on hand. -Start Flomax to improve urinary flow and monitor for effectiveness over the next month. Dementia Progressing, with recent confusion related to UTI. -Consider follow-up with neurology to assess need for medication adjustment, but also work on improving constipation to help improve urinary retention which should help as well -Initiate palliative care consult to focus on improving quality of life and managing symptoms. Pain Management Weaning off pain pump, currently on OxyContin twice a day with Percocet for breakthrough pain. -Continue current regimen and monitor for effectiveness and side effects. -Provide prescription for OxyContin to be sent to mail order pharmacy. Constipation Possible contributing factor to urinary retention and UTI. -Continue Senokot for bowel regulation. Follow-up -Check in three months or sooner if any issues arise. -Initiate palliative care consult. -Consider follow-up with neurology for dementia management. History of Present Illness Kana Thomas is a 58 year old male that presents for Hospital Follow-Up (Pt here for Hosp F/u. D/C from [facility] on 02/14/2024 for UTI.) History of Present Illness Lemuel, a patient with stage three chronic kidney disease, recently experienced a severe urinary tract infection (UTI) that nearly turned septic. The UTI was likely due to urinary retention caused by his kidney disease. He was hospitalized and treated with antibiotics. His caregiver, Sugey, noticed his symptoms early on, including difficulty urinating and increased confusion. However, the severity of the infection escalated quickly, leading to hospitalization. Lemuel also has a pain pump, which is currently being weaned off. He is taking OxyContin twice a dayfor pain management. Despite these measures, he still experiences significant pain. He also has constipation, which may be contributing to his urinary issues. Sugey is actively involved in Lemuel's care and is keen on keeping him at home for as long as possible. He is open to the idea of palliative care to improve Lemuel's quality of life and manage his symptoms better. Physical Exam Vitals: 02/16/24 1055 Temp: 36.5 C (97.7 F) Pulse: 95 Resp: 16 SpO2: 96% BP: 106/68 Physical Exam Constitutional: Appearance: Normal appearance. HENT: Head: Normocephalic and atraumatic. Eyes: Extraocular Movements: Extraocular movements intact. Pupils: Pupils are equal, round, and reactive to light. Neurological: General: No focal deficit present. Mental Status: He is alert. Mental status is at baseline. Psychiatric: Behavior: Behavior normal. Wrap-Up Time: Total time today was 44 minutes excluding any time spent in the performance of separately billed services. Text in this note was generated using an Wickr documentation service. I discussed the use of a device to record and summarize our discussion today. All persons present during the encounter consented to its use. documented in this encounter Plan of Treatment Upcoming Encounters Date Type Department Care Team (Late st Contact Info) Description 04/15/2024 9:00 AM EST Office Visit Neurology [address] [place] [phone] Heather Franklin, CHILD CENTER ASSISTANT [address] [facility] [place] [address] 05/20/2024 1:40 PM EST Office Visit [facility] [address] [place] [address] Charles Mayer, DO [address] [place] [address] 10/28/2024 11:40 AM EDT Office Visit [facility] [address] [place] [address] Charles Mayer, [address] [facility] [[email or web address]] [place] [address] Scheduled Procedures Name Priority Associated Diagnoses Date/Ti me ESOPHAGOGASTRODUODENOSCOPY ( EGD), FLEXIBLE, TRANSORAL, DIAGNOSTIC Recall Esophageal reflux Scheduled Referrals Name Type Priority Associated Diagnoses Orde r Schedule PALLIATIVE CARE REFERRAL OP Referral Within 10 days (routine) Dementia with psychosis (HCC) Vascular dementia without behavioral disturbance, psychotic disturbance, mood disturbance, or anxiety, unspecified dementia severity (HCC) Ordered: 02/16/2024 Health Maintenance Due Date Last Done Comments Cologuard 2008 Fecal Occult Blood Test 2008 Sigmoidoscopy 2008 Zoster Vaccines (1 of 2) 2013 Colonoscopy 06/03/2018 06/03/2017, 06/03/2017 Colorectal Cancer Screening 06/03/2018 COVID-19 Vaccine ( season) 2023 09/11/2020, 08/14/2020 Albumin/Creatinine Ratio 06/11/2024 06/12/2023, 0606/2014 GFR 07/28/2024 01/28/2024, 11/06, 10/27/2023, Additional history exists CKD HGB USE SMARTSET 91976 11/24/202411/24, 11/25/2023, 06/11/2023, Additional history exists CKD PHOS USE SMARTSET 88144 11/24/202411/06, 06/11/2023, 12/24/2019 Depression Screening 01/21/2025 01/22/2024 [...] as of this encounter Visit Diagnoses Diagnosis Dementia with psychosis (HCC)- Primary Other persistent mental disorders due to conditions classified elsewhere Vascular dementia without behavioral disturbance, psychotic disturbance, mood disturbance, or anxiety, unspecified dementia severity (HCC) Idiopathic gout, unspecified chronicity, unspecified site Need for case management follow-up Coronary artery disease involving [place] coronary artery of [place] heart without angina pectoris Other chronic pain Infective urethritis Urethritis, unspecified documented in this encounter Advance Directives Documents on File Type Date Recorded Patient Speech And Language Clinician Expl anation Advance Directives and Living Will [...] 6:09 AM 02/13/2011 5:03 PM This order reflects the patients wishes [...] and were consensually agreed upon. Care Teams Substation Operator Relationship Specialty Start Date End Date Charles Mayer DO [address] [place] [address] PCP - General Family Medicine 05/26/23 documented as of this encounter
--- OUTSIDE RECORDS SUMMARY | 2024-02-26 23:22 | External Medical Summary | Summary of Care ---
Author Name Unknown Organization [facility] Address [address] [facility] [address] Phone [phone] Care Team Providers Care Security Systems Specialist Name Role Phone Charles Mayer DO Primary Care Provider Reason for Visit * Reason Onset Date Comments Advice 02/23/2024 Encounter Details Date Type Department Care Team (Late st Contact Info) Description 02/23/2024 Telephone Family Practice [facility] [address] [place] [id number] Charles Mayer DO [address] [place] [address] Advice Allergies Active Allergy Reactions Criticality Noted [...] as of 02/24/2024) Medications MORPHINE 5 MG/ML KELP GATHERER SQ INFUSION (AMBULATORY)Ind ications:MEDICA TION USE AGREEMENT [...] Oral Tablet (Desyrel)Indica tions:Coronary artery disease involving [place] coronary artery of [place] heart without angina pectoris,Stage 3a chronic kidney disease (HCC),Gastroeso phageal reflux disease without esophagitis,Dem entia (HCC) Take one-half tablet by mouth at bedtime as needed for insomnia 90 Tablet 3 4 Active traZODone HCl 50 MG Oral Tablet (Desyrel)Indica tions:Coronary artery disease involving [place] coronary artery of [place] heart without angina pectoris,Stage 3a chronic kidney disease (HCC),Gastroeso phageal reflux disease without esophagitis,Dem entia (HCC) Take one-half tablet by mouth at bedtime for 5 days then stop 90 Tablet 3 4 024 Discontin ued(Refil l) Hospital, Clinic, or Other Facility Administered Medication Ordered Dose Route Frequency Start Date End Date Status Vitamin B-12 (Cyanocobalamin) inj 1,000 mcgIndications:B12 deficiency 1000 mcg IM [id number] 01/28/2024 12/29/2024 Active documented as of this [...] anemia 04/24/2017 Coronary artery disease invo lving [place] heart without angina pectoris 04/18/2016 Incomplete tear of right rotator cuff 04/15/2016 Overview (04/15/2016): 04/23 Dr Eduardo guerrero. Anxiety 09/28/2014 Diverticulitis of colon 09/16/2014 Intestinal postoperative nonabsorption 1 SINDY RESEARCH OTHER*[id number] 09/14/2009 MEDICATION USE AGREEMENT 05/19/2008 Overview (05/19/2008): [...] S/p gastric bypass. 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 Directions state to take for 5 days but rx was written for 90 tabs with 3 refills. [facility] clarify [facility] Thank you, Nohemy Aquino CPhT [employer] [facility] 02/23/2024, 1:47 PM documented in this encounter Plan of Treatment Upcoming Encounters Date Type Department Care Team (Late st Contact Info) Description 04/15/2024 9:00 AM EST Office Visit Neurology [address] [place] [phone] Heather Franklin CRNP [address] [facility] [place] [address] 05/20/2024 1:40 PM EST Office Visit [facility] [address] [place] [address] Charles Mayer, DO [address] [place] [address] 10/28/2024 11:40 AM EDT Office Visit [facility] [address] [place] [address] Charles Mayer, DO [address] [place] [address] Scheduled Procedures Name Priority Associated Diagnoses Date/Ti [...] Additional history exists CKD HGB USE SMARTSET 71502 11/24/202411/24, 11/25/2023, 06/11/2023, Additional history exists CKD PHOS USE SMARTSET 07152 11/24/202411/06, 06/11/2023, 12/24/2019 Depression Screening 01/21/2025 01/22/2024 [...] Visit Diagnoses Diagnosis Coronary artery disease involving [place] coronary artery of [place] heart without angina pectoris Stage 3a chronic kidney disease Gastroesophageal reflux disease without esophagitis Esophageal reflux Dementia (HCC) Dementia, unspecified, without behavioral disturbance documented in this encounter Advance Directives Documents on File Type Date Recorded Patient [place] Roofer Expl 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 Care Teams Security Systems Specialist Relationship Specialty Start Date End Date Charles Mayer DO [address] [place] [address] PCP - General Family Medicine 05/26/23 documented as of this encounter
--- OUTSIDE RECORDS SUMMARY | 2024-02-26 23:22 | External Medical Summary | Summary of Care ---
Author Name Unknown Organization [facility] Address [address] [place] [address] Phone [phone] Care Team Providers Care Community Support Worker Name Role Phone Marsha Mayeradin [place] Primary Care Provider Reason for Visit * Reason Onset Date Comments [facility]: Engagement 02/23/2024 Encounter Details Date Type Department Care Team (Late st Contact Info) Description 02/23/2024 Telephone [facility], [facility] [address] [place] [address] Aure Garcia, JAILL [address] [place] [address] [facility]: Engagement Allergies [...] as of 02/23/2024) Medications MORPHINE 5 MG/ML FLAVORING OIL FILTERER SQ INFUSION (AMBULATORY)[place] cations:MEDICATI ON USE AGREEMENT [...] Oral Tablet (Desyrel)Indicat ions:Coronary artery disease involving [place] coronary artery of [place] heart without angina pectoris,Stage 3a chronic kidney [...] inj 1,000 mcgIndications:B12 deficiency 1000 mcg IM [id number] 01/28/2024 12/29/2024 Active documented as of this [...] anemia 04/24/2017 Coronary artery disease invo lving [place] heart without angina pectoris 04/18/2016 Incomplete tear of right rotator cuff 04/15/2016 Overview (04/15/2016): 04/23 Dr Eduardo guerrero. Anxiety 09/28/2014 Diverticulitis of colon 09/16/2014 Intestinal postoperative nonabsorption 1 CALLAHAN RESEARCH OTHER*[id number] 09/14/2009 MEDICATION USE AGREEMENT 05/19/2008 Overview (05/19/2008): [...] S/p gastric bypass. 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 Looking to schedule enrollment. Ann Martinez ok'd to enrollment so [facility] palliative can see him Can offer: 02/27/24 with MAGDALENA Arthur 03/23/24 with Gregg Rosen PA-C Provided call back number of [phone] JALIL Arvizu documented in this encounter Plan of Treatment Upcoming Encounters Date Type Department Care Team (Late st Contact Info) Description 04/15/2024 9:00 AM EST Office Visit Neurology [address] [place] [phone] Heather Franklin CRNP [address] [facility] [place] [address] 05/20/2024 1:40 PM EST Office Visit Family Practice [facility] [address] [place] [address] Charles Mayer, DO [address] [place] [address] 10/28/2024 11:40 AM EDT Office Visit [facility] [address] [place] [address] Charles Mayer, DO [address] [place] [address] Scheduled Procedures Name Priority Associated Diagnoses Date/Ti [...] Additional history exists CKD HGB USE SMARTSET 43004 11/24/202411/24, 11/25/2023, 06/11/2023, Additional history exists CKD PHOS USE SMARTSET 93263 11/24/202411/06, 06/11/2023, 12/24/2019 Depression Screening 01/21/2025 01/22/2024 [...] Documents on File Type Date Recorded Patient Ad Setter Expl anation Advance Directives and Living Will [...] 8:35 AM 08/06/2010 9:36 PM This order re flects the patients wishes and were consensually agreed upon. * Full Code Date Activated Date Inactivated Comments 08/02/2010 1:51 PM 08/03/2010 6:19 PM This order r eflects the patients wishes and were consensually agreed upon. * Full Code Date Activated Date Inactivated Comments 07/19/2010 4:11 PM 07/20/2010 9:14 PM This order r eflects the patients wishes and were consensually agreed upon. Care Teams Community Support Worker Relationship Specialty Start Date End Date Charles Mayer DO [address] [place] [address] PCP - General Family Medicine 05/26/23 documented as of this encounter
--- NOTE | 2024-02-27 05:51 | Electrocardiogram Report ---
Test Reason : Blood Pressure : */* mmHG Vent. Rate : 70 BPM Atrial Rate : 70 BPM P-R Int : 138 ms QRS Dur : 144 ms QT Int : 450 ms P-R-T Axes : 61 46 51 degrees QTcB Int : 486 ms Normal sinus rhythm Right bundle branch block Abnormal ECG When compared with ECG of 12-Feb-2024 23:37, No significant change Confirmed by Villa Jeffrey ([id number]) on 02/27/2024 5:50:31 AM Referred By: REFERRED SELF Confirmed By: Villa Jeffrey
--- NOTE | 2024-02-27 05:51 | Electrocardiogram Report ---
Test Reason : Blood Pressure : */* mmHG Vent. Rate : 63 BPM Atrial Rate : 63 BPM P-R Int : 134 ms QRS Dur : 144 ms QT Int : 448 ms P-R-T Axes : 53 52 64 degrees QTcB Int : 458 ms Normal sinus rhythm Right bundle branch block Cannot rule out Anterior infarct Abnormal ECG When compared with ECG of 25-Feb-2024 20:33, Anterior infarct is now Present Confirmed by Villa Jeffrey ([id number]) on 02/27/2024 5:51:24 AM Referred By: REFERRED SELF Confirmed By: Villa Jeffrey
[2024-02-27] MEDS ORDERED: MAGNESIUM OXIDE 400 MG TAB PO SCH (09:00)
[2024-02-27] MEDS ORDERED: POTASSIUM CHLORIDE 10 MEQ TABCR PO SCH (09:00)
== END 2024-02-26 16:19 | disposition home or self-care (01) ==
LOC: ED 20:27 → EDINP 20:27

== ENCOUNTER 2024-03-08 22:50 | Observation (INO) ==
--- NOTE | 2024-03-09 00:13 | Emergency Department Note ---
Impression & Plan Altered mental status ED Provider Note NAME: CHRISTIAN ROE AGE: 58 SEX: Male INFORMANT: Patient and ED PROVIDER(S): Josh Singh MD CHIEF COMPLAINT: Change in mental status PLAN: Disposition: Admitted Outpatient prescription management: none Referral: None MEDICAL DECISION MAKING: Patient present because of a change in mental status. He was awake and answering questions relatively appropriately. He denied any pain. No meningeal findings. He was afebrile. He was in urinary retention and Newman catheter was placed. Urinalysis did not reveal findings consistent with UTI. CT imaging was ordered. Old ischemic findings noted but no acute issues discovered. Patient's ECG did not show any acute ST elevation. Mild junctional ST depression present. Patient's procalcitonin, magnesium, white blood cell count, TSH, troponin were unremarkable. Creatinine was minimally elevated compared to prior. BioFire testing negative. was concerned about UTI given the change in mental status. Currently patient is doing relatively well however the exact etiology of this abrupt change is not obvious. Discussed further evaluation and management in the hospital. Patient and are in agreement. Consultation was made with Dr. Alexi Merrill, [facility] hospitalist service. Case discussed and diagnostics were reviewed. Patient was evaluated in the ER and admitted for further management Care/management discussed with: manager of training and development Level of care consideration(s): After review of the information above and other included data, I feel the patient requires escalation of care to admission. Triage Nursing notes: reviewed and agree them. Vital Signs: reviewed and remarkable for no significant abnormalities Additional History obtained from: none Chronic Medical/Social Conditions affecting care: Dementia, GERD Prior/ Outside/ External records reviewed: none Differential Diagnosis: Infection, hypoglycemia, electrolyte abnormalities, overdose, toxicologic, cardiac sources, intracerebral event, neurologic, trauma, as well as other pathologies. Diagnostics, independently interpreted by me: ECG: Twelve-lead ECG reveals normal sinus rhythm at 61 beats per minute. No evidence of pericarditis, ischemia, ectopy, or dysrhythmia. Incomplete right bundle branch block. Cardiac Monitoring: Cardiac monitoring ordered by me: The patient was placed on continuous cardiac monitoring and observed. It revealed a normal sinus rhythm at 66 beats per minute without ectopy or evidence of dysrhythmia. Medical decision rules: none Imaging studies: Head CT: A noncontrast CT scan of the head was performed and was negative for tumor, fracture, intracranial hemorrhage, or other acute pathology. Chest x-ray. Findings: A chest x-ray was performed and revealed no pneumothorax, effusion, infiltrate, pulmonary edema, free air under the diaphragm, or wide mediastinum. Impression: No acute disease. HPI: 58 year old Male history of CAD, history of right upper lobe pulmonary nodule, GERD, status post gastric bypass, history of diverticulitis, CKD stage III, iron deficiency anemia, spinal fusion surgery, history of skull fracture who arrives for evaluation of change in mental status. This started today per the and is persisting. The patient also notes the following associated symptoms, fatigue and urinary symptoms. The patient has been given no medication for relieving factors. Current pain is rated as 0/10. is concerned as the patient has a history of UTI. She notes he was very agitated. He had a rash in his armpits this morning which she thought was new. Pt denies LOC, headache, fevers, chills, diaphoresis, visual changes, neck pain, chest pain, breathing difficulties, nausea, vomiting, abdominal pain, melena, hematochezia, numbness, weakness, lymphadenopathy, or other complaints. . PAST MEDICAL HISTORY: See Below, CKD, UTI PAST SURGICAL HISTORY: See Below, SOCIAL HISTORY: See Below, HOME MEDICATIONS: See Below ALLERGIES: See Below VITALS: See Below PHYSICAL EXAMINATION: GENERAL: Awake, tired appearing, in no distress HENT: Normocephalic, atraumatic. Oropharynx unremarkable. EYES: Normal conjunctiva. Sclera non-icteric. NECK: Inspection normal. Non-tender. Supple. No nuchal rigidity. FROM. No masses. RESPIRATORY: Clear to auscultation. No wheezes. No rales. Normal respiratory effort. CARDIAC: Normal rate. Normal rhythm. No murmurs. No rubs. Extremities warm and well perfused. Pulses equal. No JVD. GI: Soft, non-distended. No tenderness to palpation. No rebound or guarding. No masses. RECTAL: Deferred. MUSCULOSKELETAL: Atraumatic. Chest examination reveals no tenderness. No joint edema. LOWER EXTREMITIES: Calves are equal size bilaterally and non-tender. No edema. No discoloration. NEURO: Mildly confused sensorium. No sensory or motor deficits noted. Speech normal. SKIN: There is a mild erythematous rash noted in the axilla without sloughing or urticaria. No petechia, purpura or jaundice noted. PROCEDURES: none CRITICAL CARE: none OBSERVATION NOTE: none Past Med/Surg History Problem List (Updated 03/09/24 @ 08:02 by Josh Singh MD) Urinary retention Chest pain (Acute) Encephalopathy Postlaminectomy syndrome of lumbosacral region Hyponatremia (Acute) Dementia (Acute) QT prolongation Delirium due to another medical condition, acute, hyperactive Agitation Alcohol abuse (Acute) AMS (altered mental status) (Acute) Major neurocognitive disorder as late effect of traumatic brain injury with behavioral disturbance Frequent falls (Acute) Altered mental status (Acute) Confusion Right ureteral stone Encounter for pre-operative examination Anemia (Acute) IRON DEFICIENT ANEMIA AND REC'D IV IRON 10/06. Baseline HGB since 2017 ~9 HLD (hyperlipidemia) Gout Back pain FROM ACCIDENT AND 7 DIFFERENT FX AND FUSION GERD (gastroesophageal reflux disease) (Acute) Anxiety History of renal stone (Acute) S/P cysto/litho/stent 10/07 History of diverticulitis of colon remote Medical History (Updated 03/09/24 @ 08:02 by Josh Singh MD) History of fracture of right ankle Hx of fracture of skull 7 FX AND HAS SOME PROBLEMS WITH MEMORY Gastric ulcer Hydronephrosis B/L per [facility] 10/12/18 Surgical History S/P ureteral stent placement History of cystoscopy W/ LITHO/BASKET STONE EXTRACTION - 10/07/18 [facility]. LMA #5. History of surgery on left wrist History of arthroscopy of right shoulder Hx of right knee surgery S/P insertion of intrathecal pump FOLLOW WITH DR LAKIA PACKER FROM [place] History of back surgery UPPER BACK FUSION, 7 DIFFERENT FRACTURES AND MULTIPLE SURGERIES AND IS FUSED multiple revisions H/O inguinal hernia repair H/O lithotripsy S/P exploratory laparotomy (Unknown) 2010 RUPTURED DIVERTICULI S/P appendectomy (Unknown) S/P cholecystectomy (Unknown) S/P gastric bypass mike en y (2010) Family History Mother DM type 2 (diabetes mellitus, type 2) Father DM type 2 (diabetes mellitus, type 2) Social History Smoking Status: Never smoker Tobacco Type: Smokeless Tobacco (Dip or Chew) Second Hand Exposure: No; Do You Dip or Chew Tobacco: Yes; Hx Alcohol Use: No Hx Substance Use: No Preferred Language: Togolese Communication Ability: Effective Communication Ability Comment: Unable to write per spouse & reading difficulty Visual Impairment: No Limitations Mobility Scooter Repairer Required: No Beliefs That Will Affect Care: None Current Living Situation: Spouse Current Living Situation Comment: lives with Feels Safe at Home: Yes Safety Concerns: Feels Safe At This Time Assistive Devices: None Allergies Allergies Allergy/AdvReac Type Severity Reaction Status Date / Time Penicillins Allergy Severe SEE COMMENT Verified 03/09/24 03:24 erythromycin base Allergy Intermediate Itching Verified 03/09/24 03:24 indomethacin Allergy Intermediate HIVES Verified 03/09/24 03:24 neomycin Allergy Intermediate BLISTERS Verified 03/09/24 03:24 vancomycin Allergy Intermediate ITCHING--ALL Verified 03/09/24 03:24 MYCIN DRUGS fentanyl AdvReac Severe "DID NOT Verified 03/09/24 03:24 TOLERATE"-patch- "went nuts" ibuprofen AdvReac Severe Ulcer Verified 03/09/24 03:24 history ketorolac AdvReac Mild NAUSEA Verified 03/09/24 03:24 aspirin AdvReac Unknown "BLEEDING" Verified 03/09/24 03:24 S/P GASTRIC BYPASS Home Meds Home Medications Medication Instructions Recorded Confirmed cyclobenzaprine 10 mg tablet 10 mg PO BID 02/01/24 03/09/24 famotidine 40 mg tablet 40 mg PO HS 02/01/24 03/09/24 memantine 10 mg tablet 10 mg PO AMHS 02/01/24 03/09/24 mirtazapine 15 mg tablet 15 mg PO HS 02/01/24 03/09/24 olanzapine 5 mg tablet 5 mg PO HS 02/01/24 03/09/24 oxycodone-acetaminophen 5 mg-325 1 tab PO Q4H PRN pain,severe 02/01/24 03/09/24 mg tablet pantoprazole 40 mg tablet,delayed 40 mg PO AMHS 02/01/24 03/09/24 release promethazine 12.5 mg tablet 12.5 mg PO TID PRN Nausea 02/01/24 03/09/24 allopurinol 300 mg tablet 300 mg PO DAILY 02/25/24 03/09/24 atorvastatin 10 mg tablet 10 mg PO QAM 02/25/24 03/09/24 cyanocobalamin (vitamin B-12) 1,000 mcg IM .EVERY 4 WEEKS 02/25/24 03/09/24 1,000 mcg/mL injection solution docusate sodium 100 mg capsule 200 mg PO AMHS 02/25/24 03/09/24 loratadine 10 mg tablet 10 mg PO QAM 02/25/24 03/09/24 lorazepam 1 mg tablet 1 mg PO Q8 PRN Anxiety 02/25/24 03/09/24 melatonin 10 mg tablet 10 mg PO HS 02/25/24 03/09/24 morphine 5 mg/mL injection solution 0 mg continuous subcutaneous 02/25/24 03/09/24 infusion .WEANING OFF oxycodone 10 mg tablet 10 mg PO AMHS 02/25/24 03/09/24 trazodone 50 mg tablet 25 mg PO HS PRN Insomnia 02/25/24 03/09/24 zinc acetate 50 mg (zinc) capsule 50 mg PO DAILY 02/25/24 03/09/24 copper 2 mg PO DAILY 03/09/24 03/09/24 Previous Rx's Medication Instructions Recorded tamsulosin 0.4 mg capsule 0.4 mg PO HS 30 days #30 caps 02/14/24 magnesium oxide 400 mg (241.3 mg 400 mg PO QAM #14 tabs 02/26/24 magnesium) tablet potassium chloride 10 mEq 10 meq PO DAILY #14 tabs 02/26/24 tablet,extended release(part/cryst) Results & Data (ED) Vital Signs Vital Signs - 24 hr 03/08/24 22:54 03/08/24 23:16 03/08/24 23:17 Temperature 36.7 C Temperature Source Temporal Artery Scan Pulse Rate 82 69 Pulse Rate [Right Finger] 70 Pulse Rhythm Pulse Rhythm [Right Finger] Regular Pulse Strength [Right Finger] Normal Respiratory Rate 16 13 Respiratory Effort / Characteristics Non-Labored Non-Labored Respiratory Depth Normal Normal Respiratory Pattern Regular Regular Blood Pressure 130/85 Blood Pressure [Right Arm] 129/79 Blood Pressure Mean 100 Blood Pressure Mean [Right Arm] 95 Blood Pressure Position [Right Arm] Lying Pulse Oximetry 98 99 Oxygen Delivery Method Room Air Room Air Sepsis Recent Fever Within 48 Hours No Sepsis New/Unexplained Change in Mental Status N/A Sepsis Action Taken by Nursing No Action Required 03/09/24 00:14 03/09/24 00:24 03/09/24 01:42 Temperature Temperature Source Pulse Rate 62 61 Pulse Rate [Right Finger] 58 L Pulse Rhythm Regular Regular Pulse Rhythm [Right Finger] Regular Pulse Strength [Right Finger] Normal Respiratory Rate 16 Respiratory Effort / Characteristics Respiratory Depth Respiratory Pattern Blood Pressure Blood Pressure [Right Arm] 120/76 Blood Pressure Mean Blood Pressure Mean [Right Arm] 90 Blood Pressure Position [Right Arm] Lying Pulse Oximetry 96 99 97 Oxygen Delivery Method Room Air Room Air Room Air Sepsis Recent Fever Within 48 Hours Sepsis New/Unexplained Change in Mental Status Sepsis Action Taken by Nursing 03/09/24 03:00 03/09/24 03:12 Temperature Temperature Source Pulse Rate 58 L 63 Pulse Rate [Right Finger] Pulse Rhythm Pulse Rhythm [Right Finger] Pulse Strength [Right Finger] Respiratory Rate 18 Respiratory Effort / Characteristics Respiratory Depth Respiratory Pattern Blood Pressure 105/75 Blood Pressure [Right Arm] Blood Pressure Mean 85 Blood Pressure Mean [Right Arm] Blood Pressure Position [Right Arm] Pulse Oximetry 100 Oxygen Delivery Method Sepsis Recent Fever Within 48 Hours Sepsis New/Unexplained Change in Mental Status Sepsis Action Taken by Nursing Laboratory Data 03/09/24 06:03 03/09/24 06:03 Lab Results 03/09/24 03/09/24 03/09/24 Range/Units 00:14 00:16 00:55 WBC 5.52 (4.8-10.8) K/ul RBC 4.16 L (4.70-6.10) M/uL Hgb 12.1 L (14.0-18.0) g/dl Hct 37.4 L (42.0-52.0) % MCV 89.9 (80.0-100.0) fL MCH 29.1 (25.0-34.0) pg MCHC 32.4 (32.0-36.0) g/dL RDW Std Deviation 46.3 (36.4-46.3) fL RDW Coeff of Rogerio 14.0 (11.5-14.5) % Plt Count 195 (130-400) K/uL MPV 10.2 (9.4-12.4) fL Immature Gran % (Auto) 0.4 % Neut % (Auto) 51.6 % Lymph % (Auto) 37.5 % [place] % (Auto) 8.9 % Eos % (Auto) 1.1 % Baso % (Auto) 0.5 % Neut # (Auto) 2.85 (1.40-6.50) K/uL Lymph # (Auto) 2.07 (1.20-3.40) K/uL [place] # (Auto) 0.49 (0.11-0.59) K/uL Eos # (Auto) 0.06 (0.00-0.50) K/uL Baso # (Auto) 0.03 (0.00-0.20) K/uL Immature Gran # (Auto) 0.02 (0.01-0.20) K/uL Sodium 137 (136-145) mmol/L Potassium 4.0 (3.5-5.1) mmol/L Chloride 100 (98-107) mmol/L Carbon Dioxide 31 (21-32) mmol/L Anion Gap 6 (3-11) BUN 16 (6-23) mg/dl Creatinine 1.59 H (0.6-1.4) mg/dl Est Cr Clr Drug Dosing 55.6 ml/min eGFR 49.39 BUN/Creatinine Ratio 10.1 (10-20) Glucose 107 H (70-99(Fasting)) mg/dl Calcium 9.0 (8.6-10.3) mg/dl Magnesium 1.9 (1.7-2.4) mg/dl Total Bilirubin 0.9 (0.2-1.0) mg/dl AST 19 (13-39) U/L ALT 14 (7-52) U/L Alkaline Phosphatase 114 H (34-104) U/L Troponin I High Sens 6.7 (0-20) pg/ml Total Protein 6.2 (6.0-8.3) gm/dl Albumin 4.2 (3.4-5.0) gm/dl Globulin 2.0 L (2.5-4.0) gm/dl Albumin/Globulin Ratio 2.1 H (0.9-2) Procalcitonin (0-0.5) ng/ml TSH 3.240 (0.300-4.500) uIu/ml Urine Color Yellow Urine Appearance Clear (Clear) Urine pH 6.5 (4.5-7.5) Ur Specific Jordan 1.014 (1.000-1.030) Urine Protein Negative (Negative) Urine Glucose (UA) Negative (Negative) Urine Ketones Negative (Negative) Urine Blood Negative (Negative) Urine Nitrite Negative (Negative) Urine Bilirubin Negative (Negative) Urine Urobilinogen Negative (Negative) Ur Leukocyte Esterase Negative (Negative) Adenovirus (PCR) Not Detected (NotDetected) B. pertussis DNA (PCR) Not Detected (NotDetected) B.parapertussis DNA PCR Not Detected (NotDetected) C. pneumoniae DNA (PCR) Not Detected (NotDetected) Coronavirus OC43 (PCR) Not Detected (NotDetected) Coronavirus HKU1 (PCR) Not Detected (NotDetected) Coronavirus 229E (PCR) Not Detected (NotDetected) SARS-CoV-2 (PCR) Not Detected (NotDetected) Coronavirus NL63 (PCR) Not Detected (NotDetected) Human Metapneumovir PCR Not Detected (NotDetected) Influenza Type A (PCR) Not Detected (NotDetected) Influenza Type B (PCR) Not Detected (NotDetected) M. pneumoniae (PCR) Not Detected (NotDetected) Parainfluenza 1 (PCR) Not Detected (NotDetected) Parainfluenza 2 (PCR) Not Detected (NotDetected) Parainfluenza 3 (PCR) Not Detected (NotDetected) Parainfluenza 4 (PCR) Not Detected (NotDetected) RSV (PCR) Not Detected (NotDetected) Entero/Rhino (PCR) Not Detected (NotDetected) 03/09/24 Range/Units 01:33 WBC (4.8-10.8) K/ul RBC (4.70-6.10) M/uL Hgb (14.0-18.0) g/dl Hct (42.0-52.0) % MCV (80.0-100.0) fL MCH (25.0-34.0) pg MCHC (32.0-36.0) g/dL RDW Std Deviation (36.4-46.3) fL RDW Coeff of Rogerio (11.5-14.5) % Plt Count (130-400) K/uL MPV (9.4-12.4) fL Immature Gran % (Auto) % Neut % (Auto) % Lymph % (Auto) % [place] % (Auto) % Eos % (Auto) % Baso % (Auto) % Neut # (Auto) (1.40-6.50) K/uL Lymph # (Auto) (1.20-3.40) K/uL [place] # (Auto) (0.11-0.59) K/uL Eos # (Auto) (0.00-0.50) K/uL Baso # (Auto) (0.00-0.20) K/uL Immature Gran # (Auto) (0.01-0.20) K/uL Sodium (136-145) mmol/L Potassium (3.5-5.1) mmol/L Chloride (98-107) mmol/L Carbon Dioxide (21-32) mmol/L Anion Gap (3-11) BUN (6-23) mg/dl Creatinine (0.6-1.4) mg/dl Est Cr Clr Drug Dosing ml/min eGFR BUN/Creatinine Ratio (10-20) Glucose (70-99(Fasting)) mg/dl Calcium (8.6-10.3) mg/dl Magnesium (1.7-2.4) mg/dl Total Bilirubin (0.2-1.0) mg/dl AST (13-39) U/L ALT (7-52) U/L Alkaline Phosphatase (34-104) U/L Troponin I High Sens (0-20) pg/ml Total Protein (6.0-8.3) gm/dl Albumin (3.4-5.0) gm/dl Globulin (2.5-4.0) gm/dl Albumin/Globulin Ratio (0.9-2) Procalcitonin < 0.02 (0-0.5) ng/ml TSH (0.300-4.500) uIu/ml Urine Color Urine Appearance (Clear) Urine pH (4.5-7.5) Ur Specific Jordan (1.000-1.030) Urine Protein (Negative) Urine Glucose (UA) (Negative) Urine Ketones (Negative) Urine Blood (Negative) Urine Nitrite (Negative) Urine Bilirubin (Negative) Urine Urobilinogen (Negative) Ur Leukocyte Esterase (Negative) Adenovirus (PCR) (NotDetected) B. pertussis DNA (PCR) (NotDetected) B.parapertussis DNA PCR (NotDetected) C. pneumoniae DNA (PCR) (NotDetected) Coronavirus OC43 (PCR) (NotDetected) Coronavirus HKU1 (PCR) (NotDetected) Coronavirus 229E (PCR) (NotDetected) SARS-CoV-2 (PCR) (NotDetected) Coronavirus NL63 (PCR) (NotDetected) Human Metapneumovir PCR (NotDetected) Influenza Type A (PCR) (NotDetected) Influenza Type B (PCR) (NotDetected) M. pneumoniae (PCR) (NotDetected) Parainfluenza 1 (PCR) (NotDetected) Parainfluenza 2 (PCR) (NotDetected) Parainfluenza 3 (PCR) (NotDetected) Parainfluenza 4 (PCR) (NotDetected) RSV (PCR) (NotDetected) Entero/Rhino (PCR) (NotDetected) Administered Medications Acetaminophen (Acetaminophen 325 Mg Tab) 650 mg PO QID PRN PRN Reason: pain/fever Stop: 04/08/24 04:03 Last Admin: 03/09/24 04:47 Dose: 650 mg Documented By: YULIA Clotrimazole (Clotrimazole 1% Cr 15 Gm Tube) 1 appln EXT BID CARL Stop: 04/08/24 04:09 Last Admin: 03/09/24 05:58 Dose: 1 appln Documented By: MARQUITA Sodium Chloride (Nss) 1,000 mls @ 100 mls/hr IV .Q10H ONE Stop: 03/09/24 13:29 Last Admin: 03/09/24 04:43 Dose: 100 mls/hr Documented By: YULIA Imaging Data Radiologist's Impression: Chest X-Ray 03/09/24 00:14 EXAM: XR chest 1V portable CLINICAL HISTORY: AMS TIA TECHNIQUE: An X-ray image of the chest is obtained in AP projection. COMPARISON: 02/25/2024 CR. FINDINGS: Slight rotation of the patient. Pulmonary Parenchyma: Prominent bronchovascular markings. Lungs are clear bilaterally. No evidence of consolidation, collapse, or focal opacities. No pulmonary nodules are identified. No evidence of pleural effusion or pleural thickening. Heart and Mediastinum: Heart size and shape are normal. No mediastinal widening or masses. No hilar or mediastinal lymphadenopathy. Bony Thorax: The bony thorax appears intact without fractures or deformities. Soft Tissues: Soft tissues overlying the chest wall are unremarkable. IMPRESSION: 1. No consolidation, pneumothorax or pleural effusion. 2. No acute cardiopulmonary abnormalities are identified. 3. No interval changes. Electronically signed by Ben Lindsay 03-09-2024 02:05 AM Abdomen/Pelvis CT 03/09/24 00:28 EXAM: CT abd pelvis wo con CLINICAL HISTORY: urinary retention, AMS TECHNIQUE: Non-contrast CT of the abdomen and pelvis was performed, with the following protocol: axial images, and reconstructed coronal and sagittal images. One of the following dose reduction techniques was utilized for this exam: Automated exposure control, adjustment of the mA and/or kV according to patient size, and use of iterative reconstruction. COMPARISON: 11/06/2023 CT. FINDINGS: Abdomen: Liver: Normal in size, shape, and density. No focal lesions, cysts, or masses were identified. Gallbladder and Biliary System: The gallbladder is surgically removed. Pancreas: Pancreatic head, body, and tail are visualized and appear normal in size and density. No pancreatic masses or calcifications were noted. Spleen: Normal in size, shape, and density. No splenic lesions or masses were identified. Kidneys and Adrenal Glands: The left kidney is normal in size, shape, and position. Cortical thickness is within normal limits. a non-obstructing calculus measuring 4mm in the left kidney lower pole. The right kidney is smaller in size. a non-obstructing tiny 1 mm calculus are noted in the right kidney lower pole. No renal hydronephrosis. Adrenal glands are unremarkable. A gastric bypass was noted. Pelvis: Urinary Bladder: empty with a catheter within it. Prostate: Normal in size and contour. No masses or abnormal thickening. Seminal Vesicles: Normal appearance without abnormal enlargement or mass. Peritoneal and Retroperitoneal Structures: No free fluid or abnormal fluid collections were identified within the abdomen or pelvis. No lymphadenopathy was noted. Bowel: Fecal load distending the newman colon. The visualized bowel loops are normal in caliber and appearance. No evidence of bowel obstruction or wall thickening. Bones and Soft Tissues: Severe spondylotic changes were noted. A left nerve stimulation device is noted with a wire extending into the spinal canal. remarkable regression of the right lower lung lobe consolidation IMPRESSION: 1. No interval changes of the abdominal findings in comparison with CT on 11/06/2023. 2. A non-obstructing calculus measuring 4mm in the left kidney lower pole. 3. Status of cholecystectomy and gastric bypass. 4. The right kidney is smaller in size 5. Urinary Bladder: empty with a catheter within it. 6. A left nerve stimulation device is noted with a wire extending into the spinal canal. 7. Remarkable regression of the right lower lung lobe consolidation Electronically signed by Ben Lindsay 03-09-2024 02:[address] 03/09/24 00:28 EXAM: CT head/brain wo con CLINICAL HISTORY: urinary retention, AMS TECHNIQUE: Axial non-contrast CT scan of the brain was performed from the skull base to the high parietal region with multiple reformats. One of the following dose reduction techniques were utilized for this exam: Automated exposure control, adjustment of the mA and/or kV according to patient size, use of iterative reconstruction. COMPARISON: 02/12/2024. FINDINGS: There are ill-defined hypodense areas noted in the cortical and subcortical in the bilateral frontal lobe and the left anterior temporal lobe suggesting chronic infarction versus old contusion There are tiny ill-defined hypodense areas noted in the periventricular region bilaterally, suggestive of mild-moderate microvascular ischemic changes. No established acute territorial infarction was identified. No evidence of intracerebral hemorrhage. No extra axial hematoma. No midline shifts or deformity. The ventricular system, cortical sulci, and basal cisterns are prominent and consistent with senile changes The pineal gland and the optic chiasm are unremarkable. The osseous structures in the skull are unremarkable. IMPRESSION: 1. No interval change in comparison with CT on 02/12/2024. 2. 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 3. Stable mild-moderate microvascular ischemic changes and brain involutional changes. Electronically signed by Ben Lindsay 03-09-2024 02:23 AM Discharge Plan Visit Data Chief Complaint: Urinary Symptoms Stated Complaint: UTI, CONFUSED, BACK PAIN, AGGITATED ED Provider: Josh Singh Discharge Problem: Altered mental status Patient Disposition: Admitted As Inpatient Discharge Instructions Interventions: ED Discharge Assessment Last Done: 03/09/24 05:02
[2024-03-09 00:33] LABS: Basophils # (auto) 0.03 K/uL (0.00-0.20); Basophils % (auto) 0.5 %; Eosinophils # (auto) 0.06 K/uL (0.00-0.50); Eosinophils % (auto) 1.1 %; Hematocrit (blood only) 37.4 % (42.0-52.0); Hemoglobin 12.1 g/dl (14.0-18.0); Immature Granulocytes # (auto) 0.02 K/uL (0.01-0.20); Immature Granulocytes % (auto) 0.4 %; Lymphocytes # (auto) 2.07 K/uL (1.20-3.40); Lymphocytes % (auto) 37.5 %; Mean Corpuscular Hemoglobin 29.1 pg (25.0-34.0); Mean Corpuscular Hgb Conc 32.4 g/dL (32.0-36.0); Mean Corpuscular Volume 89.9 fL (80.0-100.0); Mean Platelet Volume 10.2 fL (9.4-12.4); Monocytes # (auto) 0.49 K/uL (0.11-0.59); Monocytes % (auto) 8.9 %; Neutrophils # (auto) 2.85 K/uL (1.40-6.50); Neutrophils % (auto) 51.6 %; Platelet Count 195 K/uL (130-400); RDW Standard Deviation 46.3 fL (36.4-46.3); Red Blood Count 4.16 M/uL (4.70-6.10); White Blood Count 5.52 K/ul (4.8-10.8)
[2024-03-09 00:52] LABS: Thyroid Stimulating Hormone 3.24 uIu/ml (0.300-4.500); Troponin I High Sensitivity 6.7 pg/ml (0-20)
[2024-03-09 00:59] LABS: Albumin Globulin Ratio 2.1 (0.9-2); Albumin Level 4.2 gm/dl (3.4-5.0); BUN Creatinine Ratio 10.1 (10-20); Bilirubin,Total 0.9 mg/dl (0.2-1.0); Creatinine Clr Calc Pharmacy 55.6 ml/min; Magnesium 1.9 mg/dl (1.7-2.4); Total Protein 6.2 gm/dl (6.0-8.3)
[2024-03-09 01:23] LABS: Appearance Urine Clear (Clear); Bilirubin Urine Negative (Negative); Blood Urine Negative (Negative); Color Urine Yellow; Glucose Urine UA Negative (Negative); Ketones Urine Negative (Negative); Leukocyte Esterase Urine Negative (Negative); Nitrite Urine Negative (Negative); Protein Urine Negative (Negative); Specific Gravity Urine 1.014 (1.000-1.030); Urobilinogen Urine Negative (Negative); pH Urine 6.5 (4.5-7.5)
[2024-03-09 01:55] LABS: Adenovirus PCR Not Detected (NotDetected); Bordetella parapertussis PCR Not Detected (NotDetected); Bordetella pertussis PCR Not Detected (NotDetected); Chlamydia pneumoniae PCR Not Detected (NotDetected); Coronavirus 229E PCR Not Detected (NotDetected); Coronavirus CoV-2 (COVID19)PCR Not Detected (NotDetected); Coronavirus HKU1 PCR Not Detected (NotDetected); Coronavirus NL63 PCR Not Detected (NotDetected); Coronavirus OC43PCR Not Detected (NotDetected); Human Metapneumovirus PCR Not Detected (NotDetected); Influenza A PCR Not Detected (NotDetected); Influenza B PCR Not Detected (NotDetected); Mycoplasma pneumoniae PCR Not Detected (NotDetected); Parainfluenza Virus 1 PCR Not Detected (NotDetected); Parainfluenza Virus 2 PCR Not Detected (NotDetected); Parainfluenza Virus 3 PCR Not Detected (NotDetected); Parainfluenza Virus 4 PCR Not Detected (NotDetected); Respiratory Syncytial VirusPCR Not Detected (NotDetected); Rhinovirus/Enterovirus PCR Not Detected (NotDetected)
--- NOTE | 2024-03-09 02:05 | XRay Report ---
EXAM: XR chest 1V portable CLINICAL HISTORY: AMS [facility] TECHNIQUE: An X-ray image of the chest is obtained in AP projection. COMPARISON: 02/25/2024 CR. FINDINGS: Slight rotation of the patient. Pulmonary Parenchyma: Prominent bronchovascular markings. Lungs are clear bilaterally. No evidence of consolidation, collapse, or focal opacities. No pulmonary nodules are identified. No evidence of pleural effusion or pleural thickening. Heart and Mediastinum: Heart size and shape are normal. No mediastinal widening or masses. No hilar or mediastinal lymphadenopathy. Bony Thorax: The bony thorax appears intact without fractures or deformities. Soft Tissues: Soft tissues overlying the chest wall are unremarkable. IMPRESSION: 1. No consolidation, pneumothorax or pleural effusion. 2. No acute cardiopulmonary abnormalities are identified. 3. No interval changes. Electronically signed by Ben Lindsay 03-09-2024 02:05 AM
--- NOTE | 2024-03-09 02:24 | CT Scan Report ---
EXAM: CT head/brain wo con CLINICAL HISTORY: urinary retention, AMS TECHNIQUE: Axial non-contrast CT scan of the brain was performed from the skull base to the high parietal region with multiple reformats. One of the following dose reduction techniques were utilized for this exam: Automated exposure control, adjustment of the mA and/or kV according to patient size, use of iterative reconstruction. COMPARISON: 02/12/2024. FINDINGS: There are ill-defined hypodense areas noted in the cortical and subcortical in the bilateral frontal lobe and the left anterior temporal lobe suggesting chronic infarction versus old contusion There are tiny ill-defined hypodense areas noted in the periventricular region bilaterally, suggestive of mild-moderate microvascular ischemic changes. No established acute territorial infarction was identified. No evidence of intracerebral hemorrhage. No extra axial hematoma. No midline shifts or deformity. The ventricular system, cortical sulci, and basal cisterns are prominent and consistent with senile changes The pineal gland and the optic chiasm are unremarkable. The osseous structures in the skull are unremarkable. IMPRESSION: 1. No interval change in comparison with CT on 02/12/2024. 2. 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 3. Stable mild-moderate microvascular ischemic changes and brain involutional changes. Electronically signed by Ben Lindsay 03-09-2024 02:23 AM
--- NOTE | 2024-03-09 02:44 | CT Scan Report ---
EXAM: CT abd pelvis wo con CLINICAL HISTORY: urinary retention, AMS TECHNIQUE: Non-contrast CT of the abdomen and pelvis was performed, with the following protocol: axial images, and reconstructed coronal and sagittal images. One of the following dose reduction techniques was utilized for this exam: Automated exposure control, adjustment of the mA and/or kV according to patient size, and use of iterative reconstruction. COMPARISON: 11/06/2023 CT. FINDINGS: Abdomen: Liver: Normal in size, shape, and density. No focal lesions, cysts, or masses were identified. Gallbladder and Biliary System: The gallbladder is surgically removed. Pancreas: Pancreatic head, body, and tail are visualized and appear normal in size and density. No pancreatic masses or calcifications were noted. Spleen: Normal in size, shape, and density. No splenic lesions or masses were identified. Kidneys and Adrenal Glands: The left kidney is normal in size, shape, and position. Cortical thickness is within normal limits. a non-obstructing calculus measuring 4mm in the left kidney lower pole. The right kidney is smaller in size. a non-obstructing tiny 1 mm calculus are noted in the right kidney lower pole. No renal hydronephrosis. Adrenal glands are unremarkable. A gastric bypass was noted. Pelvis: Urinary Bladder: empty with a catheter within it. Prostate: Normal in size and contour. No masses or abnormal thickening. Seminal Vesicles: Normal appearance without abnormal enlargement or mass. Peritoneal and Retroperitoneal Structures: No free fluid or abnormal fluid collections were identified within the abdomen or pelvis. No lymphadenopathy was noted. Bowel: Fecal load distending the newman colon. The visualized bowel loops are normal in caliber and appearance. No evidence of bowel obstruction or wall thickening. Bones and Soft Tissues: Severe spondylotic changes were noted. A left nerve stimulation device is noted with a wire extending into the spinal canal. remarkable regression of the right lower lung lobe consolidation IMPRESSION: 1. No interval changes of the abdominal findings in comparison with CT on 11/06/2023. 2. A non-obstructing calculus measuring 4mm in the left kidney lower pole. 3. Status of cholecystectomy and gastric bypass. 4. The right kidney is smaller in size 5. Urinary Bladder: empty with a catheter within it. 6. A left nerve stimulation device is noted with a wire extending into the spinal canal. 7. Remarkable regression of the right lower lung lobe consolidation Electronically signed by Ben Lindsay 03-09-2024 02:44 AM
[2024-03-09 03:14] VITALS: RESP 18
--- NOTE | 2024-03-09 03:58 | History & Physical Report ---
Date of Service March 09, 2024 Assessment & Plan (1) Encephalopathy: Plan: Encephalopathy: Delirium on dementia History traumatic brain injury Recurrent admissions Multifactorial ARF, urinary retention home narcotics and neuropsychotropic medications hx nonobstructive CAD as per records hypertension, BP on the lower side hx gastric bypass chronic back pain on narcotics chronic anemia, hemoglobin better than baseline possibly from mild hemoconcentration prediabetes, hemoglobin A1c of 5.7 from 2018 Bilateral axillary rash ? Fungal etiology past tobacco/alcohol abuse. OBS Medical telemetry Baseline UA monitor creatinine response to IVF Maintain Newman catheter, continue Flomax Urology consult Re: Urinary retention Palliative care consult to discuss goals of care with patient/family given recurrent admissions (Patient unable to see provider during prior admissions. Patient was set to see outpatient palliative care provider tomorrow as per as per PCP recommendations. Topical antifungal trial for bilateral axillary rash DVT prophylaxis. SCDs DNR as per patient's prior directives as per . Patient requesting updates providers. Ms. Sugey Thomas, contact #[phone]. Text document was generated using [employer] voice recognition software. It may contain grammatical or spelling errors. Kindly contact undersigned for clarification of any documentation item in question. History of Present Illness Chief Complaint: Confusion, back pain Primary Care Provider: Charles Mayer, History obtained from patient, family, and records. Limited history from patient secondary to dementia. Medical history significant for nonobstructive CAD as per records, hypertension, GERD, history gastric bypass, chronic back pain on narcotics, urolithiasis, chronic anemia (baseline hemoglobin 9-11), prediabetes, dementia, history traumatic brain injury, past tobacco/alcohol abuse. Monthly admissions since November 2023. Recent confinement 2 weeks ago for chest pain No cardiac testing as per cardiology. Patient with worsening confusion last couple of days. Complaining of back pain. Denies headache, chest pain, SOB. Patient found to have an unusual rash under both armpits as per . Not itchy as per patient. No exposure to new chemicals or soaps. No fever, no chills. Patient brought to ER for evaluation. Patient noted to have urinary retention with bladder residual of greater than 500 cc. Newman catheter placed at the ER. Medical History as above Surgical History : Finger amputation, ex lap, lithotripsy, gastric bypass, cholecystectomy, appendectomy, hernia repair, back surgery, knee surgery Family History : Heart disease, diabetes, kidney disease Personal/Social history : Past tobacco/alcohol abuse, disabled Allergies Allergy/AdvReac Type Severity Reaction Status Date / Time Penicillins Allergy Severe SEE COMMENT Verified 03/09/24 03:24 erythromycin base Allergy Intermediate Itching Verified 03/09/24 03:24 indomethacin Allergy Intermediate HIVES Verified 03/09/24 03:24 neomycin Allergy Intermediate BLISTERS Verified 03/09/24 03:24 vancomycin Allergy Intermediate ITCHING--ALL Verified 03/09/24 03:24 MYCIN DRUGS fentanyl AdvReac Severe "DID NOT Verified 03/09/24 03:24 TOLERATE"-patch- "went nuts" ibuprofen AdvReac Severe Ulcer Verified 03/09/24 03:24 history ketorolac AdvReac Mild NAUSEA Verified 03/09/24 03:24 aspirin AdvReac Unknown "BLEEDING" Verified 03/09/24 03:24 S/P GASTRIC BYPASS Home Medications Medication Instructions Recorded Confirmed Type cyclobenzaprine 10 mg tablet 10 mg PO BID 02/01/24 03/09/24 History famotidine 40 mg tablet 40 mg PO HS 02/01/24 03/09/24 History memantine 10 mg tablet 10 mg PO [facility] 02/01/24 03/09/24 History mirtazapine 15 mg tablet 15 mg PO HS 02/01/24 03/09/24 History olanzapine 5 mg tablet 5 mg PO HS 02/01/24 03/09/24 History oxycodone-acetaminophen 5 mg-325 1 tab PO Q4H PRN pain,severe 02/01/24 03/09/24 History mg tablet pantoprazole 40 mg tablet,delayed 40 mg PO [facility] 02/01/24 03/09/24 History release promethazine 12.5 mg tablet 12.5 mg PO TID PRN Nausea 02/01/24 03/09/24 History tamsulosin 0.4 mg capsule 0.4 mg PO HS 30 days #30 caps 02/14/24 03/09/24 Rx allopurinol 300 mg tablet 300 mg PO DAILY 02/25/24 03/09/24 History atorvastatin 10 mg tablet 10 mg PO QAM 02/25/24 03/09/24 History cyanocobalamin (vitamin B-12) 1,000 mcg IM .EVERY 4 WEEKS 02/25/24 03/09/24 History 1,000 mcg/mL injection solution docusate sodium 100 mg capsule 200 mg PO [facility] 02/25/24 03/09/24 History loratadine 10 mg tablet 10 mg PO QAM 02/25/24 03/09/24 History lorazepam 1 mg tablet 1 mg PO Q8 PRN Anxiety 02/25/24 03/09/24 History melatonin 10 mg tablet 10 mg PO HS 02/25/24 03/09/24 History morphine 5 mg/mL injection solution 0 mg continuous subcutaneous 02/25/24 03/09/24 History infusion .WEANING OFF oxycodone 10 mg tablet 10 mg PO [facility] 02/25/24 03/09/24 History trazodone 50 mg tablet 25 mg PO HS PRN Insomnia 02/25/24 03/09/24 History zinc acetate 50 mg (zinc) capsule 50 mg PO DAILY 02/25/24 03/09/24 History magnesium oxide 400 mg (241.3 mg 400 mg PO QAM #14 tabs 02/26/24 03/09/24 Rx magnesium) tablet potassium chloride 10 mEq 10 meq PO DAILY #14 tabs 02/26/24 03/09/24 Rx tablet,extended release(part/cryst) copper 2 mg PO DAILY 03/09/24 03/09/24 History Past Med/Surg History Problem List (Updated 03/09/24 @ 09:47 by Staci Wilcox MD) CKD stage 3b, GFR 30-44 ml/min BPH (benign prostatic hyperplasia) Vascular dementia Urinary retention Chest pain (Acute) Encephalopathy Postlaminectomy syndrome of lumbosacral region Hyponatremia (Acute) Dementia (Acute) QT prolongation Delirium due to another medical condition, acute, hyperactive Agitation Alcohol abuse (Acute) AMS (altered mental status) (Acute) Major neurocognitive disorder as late effect of traumatic brain injury with behavioral disturbance Frequent falls (Acute) Altered mental status (Acute) Confusion Right ureteral stone Encounter for pre-operative examination Anemia (Acute) IRON DEFICIENT ANEMIA AND REC'D IV IRON 10/06. Baseline HGB since 2017 ~9 HLD (hyperlipidemia) Gout Back pain FROM ACCIDENT AND 7 DIFFERENT FX AND FUSION GERD (gastroesophageal reflux disease) (Acute) Anxiety History of renal stone (Acute) S/P cysto/litho/stent 10/07 History of diverticulitis of colon remote Medical History (Updated 03/09/24 @ 09:47 by Staci Wilcox MD) History of fracture of right ankle Hx of fracture of skull 7 FX AND HAS SOME PROBLEMS WITH MEMORY Gastric ulcer Hydronephrosis B/L per [facility] 10/12/18 Surgical History S/P ureteral stent placement History of cystoscopy W/ LITHO/BASKET STONE EXTRACTION - 10/07/18 [facility]. LMA #5. History of surgery on left wrist History of arthroscopy of right shoulder Hx of right knee surgery S/P insertion of intrathecal pump FOLLOW WITH DR LAKIA PACKER FROM [place] History of back surgery UPPER BACK FUSION, 7 DIFFERENT FRACTURES AND MULTIPLE SURGERIES AND IS FUSED multiple revisions H/O inguinal hernia repair H/O lithotripsy S/P exploratory laparotomy (Unknown) 2010 RUPTURED DIVERTICULI S/P appendectomy (Unknown) S/P cholecystectomy (Unknown) S/P gastric bypass mike en y (2010) Family History Mother DM type 2 (diabetes mellitus, type 2) Father DM type 2 (diabetes mellitus, type 2) Social History Smoking Status: Never smoker Tobacco Type: Smokeless Tobacco (Dip or Chew) Second Hand Exposure: No; Do You Dip or Chew Tobacco: Yes; Hx Alcohol Use: No Hx Substance Use: No Preferred Language: Thai Communication Ability: Effective Communication Ability Comment: Unable to write per spouse & reading difficulty Visual Impairment: No Limitations Interactive Media Director Required: No Beliefs That Will Affect Care: None Current Living Situation: Spouse Current Living Situation Comment: lives with Feels Safe at Home: Yes Safety Concerns: Feels Safe At This Time Assistive Devices: None Review of Systems Review of Systems: Could not be reliably obtained secondary to dementia Physical Exam Physical Exam: GENERAL: Demented, no respiratory distress, chronically ill SKIN: Dark skin, warm HEENT: Alopecia, pale palpebral conjunctivae, no ptosis, dry buccal mucosa NECK : Supple, no tenderness CHEST : CTA, no chest wall tenderness HEART : RRR, no obvious murmurs ABDOMEN: Some distention, healed incisional scars, nontender EXTREMITIES : Papular lesions over both axillary areas, no LE swelling/tenderness, no other conspicuous deformities noted NEUROLOGIC : Demented, no facial asymmetry, no other gross focality Results & Data Results & Data Vital Signs (Past 12 Hours) Vital Signs Temp Pulse Pulse Resp BP BP Pulse Ox 03/09/24 03:12 63 03/09/24 03:00 58 L 18 105/75 100 03/09/24 01:42 58 L 120/76 97 03/09/24 00:24 61 16 99 03/09/24 00:14 62 96 03/08/24 23:17 70 13 129/79 99 03/08/24 23:16 69 03/08/24 22:54 36.7 C 82 16 130/85 98 O2 Del Method 03/09/24 03:12 03/09/24 03:00 03/09/24 01:42 Room Air 03/09/24 00:24 Room Air 03/09/24 00:14 Room Air 03/08/24 23:17 Room Air 03/08/24 23:16 03/08/24 22:54 Room Air Laboratory Results Laboratory Results WBC 5.52 K/ul (4.8-10.8) 03/09/24 00:14 RBC 4.16 M/uL (4.70-6.10) L 03/09/24 00:14 Hgb 12.1 g/dl (14.0-18.0) L 03/09/24 00:14 Hct 37.4 % (42.0-52.0) L 03/09/24 00:14 MCV 89.9 fL (80.0-100.0) 03/09/24 00:14 MCH 29.1 pg (25.0-34.0) 03/09/24 00:14 MCHC 32.4 g/dL (32.0-36.0) 03/09/24 00:14 RDW Std Deviation 46.3 fL (36.4-46.3) 03/09/24 00:14 RDW Coeff of Rogerio 14.0 % (11.5-14.5) 03/09/24 00:14 Plt Count 195 K/uL (130-400) 03/09/24 00:14 MPV 10.2 fL (9.4-12.4) 03/09/24 00:14 Immature Gran % (Auto) 0.4 % 03/09/24 00:14 Neut % (Auto) 51.6 % 03/09/24 00:14 Lymph % (Auto) 37.5 % 03/09/24 00:14 [place] % (Auto) 8.9 % 03/09/24 00:14 Eos % (Auto) 1.1 % 03/09/24 00:14 Baso % (Auto) 0.5 % 03/09/24 00:14 Neut # (Auto) 2.85 K/uL (1.40-6.50) 03/09/24 00:14 Lymph # (Auto) 2.07 K/uL (1.20-3.40) 03/09/24 00:14 [place] # (Auto) 0.49 K/uL (0.11-0.59) 03/09/24 00:14 Eos # (Auto) 0.06 K/uL (0.00-0.50) 03/09/24 00:14 Baso # (Auto) 0.03 K/uL (0.00-0.20) 03/09/24 00:14 Immature Gran # (Auto) 0.02 K/uL (0.01-0.20) 03/09/24 00:14 Sodium 137 mmol/L (136-145) 03/09/24 00:14 Potassium 4.0 mmol/L (3.5-5.1) 03/09/24 00:14 Chloride 100 mmol/L (98-107) 03/09/24 00:14 Carbon Dioxide 31 mmol/L (21-32) 03/09/24 00:14 Anion Gap 6 (3-11) 03/09/24 00:14 BUN 16 mg/dl (6-23) 03/09/24 00:14 Creatinine 1.59 mg/dl (0.6-1.4) H 03/09/24 00:14 Est Cr Clr Drug Dosing 55.6 ml/min 03/09/24 00:14 eGFR 49.39 03/09/24 00:14 BUN/Creatinine Ratio 10.1 (10-20) 03/09/24 00:14 Glucose 107 mg/dl (70-99(Fasting)) H 03/09/24 00:14 Calcium 9.0 mg/dl (8.6-10.3) 03/09/24 00:14 Magnesium 1.9 mg/dl (1.7-2.4) 03/09/24 00:14 Total Bilirubin 0.9 mg/dl (0.2-1.0) 03/09/24 00:14 AST 19 U/L (13-39) 03/09/24 00:14 ALT 14 U/L (7-52) 03/09/24 00:14 Alkaline Phosphatase 114 U/L (34-104) H 03/09/24 00:14 Troponin I High Sens 6.7 pg/ml (0-20) 03/09/24 00:14 Total Protein 6.2 gm/dl (6.0-8.3) 03/09/24 00:14 Albumin 4.2 gm/dl (3.4-5.0) 03/09/24 00:14 Globulin 2.0 gm/dl (2.5-4.0) L 03/09/24 00:14 Albumin/Globulin Ratio 2.1 (0.9-2) H 03/09/24 00:14 Procalcitonin < 0.02 ng/ml (0-0.5) 03/09/24 01:33 TSH 3.240 uIu/ml (0.300-4.500) 03/09/24 00:14 Urine Color Yellow 03/09/24 00:55 Urine Appearance Clear (Clear) 03/09/24 00:55 Urine pH 6.5 (4.5-7.5) 03/09/24 00:55 Ur Specific [place] 1.014 (1.000-1.030) 03/09/24 00:55 Urine Protein Negative (Negative) 03/09/24 00:55 Urine Glucose (UA) Negative (Negative) 03/09/24 00:55 Urine Ketones Negative (Negative) 03/09/24 00:55 Urine Blood Negative (Negative) 03/09/24 00:55 Urine Nitrite Negative (Negative) 03/09/24 00:55 Urine Bilirubin Negative (Negative) 03/09/24 00:55 Urine Urobilinogen Negative (Negative) 03/09/24 00:55 Ur Leukocyte Esterase Negative (Negative) 03/09/24 00:55 Adenovirus (PCR) Not Detected (NotDetected) 03/09/24 00:16 B. pertussis DNA (PCR) Not Detected (NotDetected) 03/09/24 00:16 B.parapertussis DNA PCR Not Detected (NotDetected) 03/09/24 00:16 C. pneumoniae DNA (PCR) Not Detected (NotDetected) 03/09/24 00:16 Coronavirus OC43 (PCR) Not Detected (NotDetected) 03/09/24 00:16 Coronavirus HKU1 (PCR) Not Detected (NotDetected) 03/09/24 00:16 Coronavirus 229E (PCR) Not Detected (NotDetected) 03/09/24 00:16 SARS-CoV-2 (PCR) Not Detected (NotDetected) 03/09/24 00:16 Coronavirus NL63 (PCR) Not Detected (NotDetected) 03/09/24 00:16 Human Metapneumovir PCR Not Detected (NotDetected) 03/09/24 00:16 Influenza Type A (PCR) Not Detected (NotDetected) 03/09/24 00:16 Influenza Type B (PCR) Not Detected (NotDetected) 03/09/24 00:16 M. pneumoniae (PCR) Not Detected (NotDetected) 03/09/24 00:16 Parainfluenza 1 (PCR) Not Detected (NotDetected) 03/09/24 00:16 Parainfluenza 2 (PCR) Not Detected (NotDetected) 03/09/24 00:16 Parainfluenza 3 (PCR) Not Detected (NotDetected) 03/09/24 00:16 Parainfluenza 4 (PCR) Not Detected (NotDetected) 03/09/24 00:16 RSV (PCR) Not Detected (NotDetected) 03/09/24 00:16 Entero/Rhino (PCR) Not Detected (NotDetected) 03/09/24 00:16 Impressions Chest X-Ray 03/09/24 00:14 EXAM: XR chest 1V portable CLINICAL HISTORY: [facility] TECHNIQUE: An X-ray image of the chest is obtained in AP projection. COMPARISON: 02/25/2024 CR. FINDINGS: Slight rotation of the patient. Pulmonary Parenchyma: Prominent bronchovascular markings. Lungs are clear bilaterally. No evidence of consolidation, collapse, or focal opacities. No pulmonary nodules are identified. No evidence of pleural effusion or pleural thickening. Heart and Mediastinum: Heart size and shape are normal. No mediastinal widening or masses. No hilar or mediastinal lymphadenopathy. Bony Thorax: The bony thorax appears intact without fractures or deformities. Soft Tissues: Soft tissues overlying the chest wall are unremarkable. IMPRESSION: 1. No consolidation, pneumothorax or pleural effusion. 2. No acute cardiopulmonary abnormalities are identified. 3. No interval changes. Electronically signed by Ben Lindsay 03-09-2024 02:05 AM Abdomen/Pelvis CT 03/09/24 00:28 EXAM: CT abd pelvis wo con CLINICAL HISTORY: urinary retention, AMS TECHNIQUE: Non-contrast CT of the abdomen and pelvis was performed, with the following protocol: axial images, and reconstructed coronal and sagittal images. One of the following dose reduction techniques was utilized for this exam: Automated exposure control, adjustment of the mA and/or kV according to patient size, and use of iterative reconstruction. COMPARISON: 11/06/2023 CT. FINDINGS: Abdomen: Liver: Normal in size, shape, and density. No focal lesions, cysts, or masses were identified. Gallbladder and Biliary System: The gallbladder is surgically removed. Pancreas: Pancreatic head, body, and tail are visualized and appear normal in size and density. No pancreatic masses or calcifications were noted. Spleen: Normal in size, shape, and density. No splenic lesions or masses were identified. Kidneys and Adrenal Glands: The left kidney is normal in size, shape, and position. Cortical thickness is within normal limits. a non-obstructing calculus measuring 4mm in the left kidney lower pole. The right kidney is smaller in size. a non-obstructing tiny 1 mm calculus are noted in the right kidney lower pole. No renal hydronephrosis. Adrenal glands are unremarkable. A gastric bypass was noted. Pelvis: Urinary Bladder: empty with a catheter within it. Prostate: Normal in size and contour. No masses or abnormal thickening. Seminal Vesicles: Normal appearance without abnormal enlargement or mass. Peritoneal and Retroperitoneal Structures: No free fluid or abnormal fluid collections were identified within the abdomen or pelvis. No lymphadenopathy was noted. Bowel: Fecal load distending the newman colon. The visualized bowel loops are normal in caliber and appearance. No evidence of bowel obstruction or wall thickening. Bones and Soft Tissues: Severe spondylotic changes were noted. A left nerve stimulation device is noted with a wire extending into the spinal canal. remarkable regression of the right lower lung lobe consolidation IMPRESSION: 1. No interval changes of the abdominal findings in comparison with CT on 11/06/2023. 2. A non-obstructing calculus measuring 4mm in the left kidney lower pole. 3. Status of cholecystectomy and gastric bypass. 4. The right kidney is smaller in size 5. Urinary Bladder: empty with a catheter within it. 6. A left nerve stimulation device is noted with a wire extending into the spinal canal. 7. Remarkable regression of the right lower lung lobe consolidation Electronically signed by Ben Lindsay 03-09-2024 02:[address] 03/09/24 00:28 EXAM: CT head/brain wo con CLINICAL HISTORY: urinary retention, AMS TECHNIQUE: Axial non-contrast CT scan of the brain was performed from the skull base to the high parietal region with multiple reformats. One of the following dose reduction techniques were utilized for this exam: Automated exposure control, adjustment of the mA and/or kV according to patient size, use of iterative reconstruction. COMPARISON: 02/12/2024. FINDINGS: There are ill-defined hypodense areas noted in the cortical and subcortical in the bilateral frontal lobe and the left anterior temporal lobe suggesting chronic infarction versus old contusion There are tiny ill-defined hypodense areas noted in the periventricular region bilaterally, suggestive of mild-moderate microvascular ischemic changes. No established acute territorial infarction was identified. No evidence of intracerebral hemorrhage. No extra axial hematoma. No midline shifts or deformity. The ventricular system, cortical sulci, and basal cisterns are prominent and consistent with senile changes The pineal gland and the optic chiasm are unremarkable. The osseous structures in the skull are unremarkable. IMPRESSION: 1. No interval change in comparison with CT on 02/12/2024. 2. 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 3. Stable mild-moderate microvascular ischemic changes and brain involutional changes. Electronically signed by Ben Lindsay 03-09-2024 02:23 AM Diagnostic Findings EKG as per my interpretation :
[2024-03-09] MEDS ORDERED: traZODone HCL 50 MG TAB PO PRN (04:01)
[2024-03-09] MEDS ORDERED: oxyCODONE HCL IR 5 MG TAB (IMMEDIATE RELEASE) PO PRN (04:04)
[2024-03-09] MEDS ORDERED: TAMSULOSIN HCL 0.4 MG CAP PO SCH ×2 (04:05→21:00)
[2024-03-09] MEDS: SODIUM CHLORIDE 0.9% 1,000 ML IV ONE (04:43)
[2024-03-09] MEDS: ACETAMINOPHEN 325 MG TAB PO PRN (04:47)
--- NOTE | 2024-03-09 05:50 | Urology Consultation ---
Date of Consultation March 09, 2024 Assessment & Plan (1) Urinary retention: Patient has been admitted on the hospitalist service. From a urologic perspective we recommend the following: It appears that the patient had urinary retention and a Newman catheter has been placed Patient takes Flomax as an outpatient would recommend continuing this medication It does not appear as though the patient has a urinary tract infection and therefore antibiotics have not been initiated Would recommend following serial labs Would recommend maintaining Newman catheter for several days at which time a voiding trial can be attempted Additional recommendations with forthcoming based on his clinical course as it unfolds History of Present Illness Reason for Consultation: Urinary retention Attending Physician: Alexi Merrill MD History of Present Illness This is a 58-year-old male who was brought to the emergency department by his family secondary to change of mental status. According reports to the emergency room physician the of the patient stated that his altered mental status began in the past 24 hours and got progressively worse. There is also noted that the patient seems somewhat fatigued along with dysuria. The emergency department patient was found to have urinary retention and Newman catheter was p laced. Upon my visit with the patient at the bedside he did not report any dysuria, fevers, shakes, or chills. He denies any back pain. He denies any nausea, vomiting, or abdominal pain. He does feel as though his urine stream has been weak over the past several days. He admits that he cannot tell if he empties his bladder completely when he urinates. In the emergency department patient has had labs and imaging which independent reviewed. A CT scan of the head showed the patient had showed microvascular ischemic changes with bilateral frontal lobe and left anterior temporal lobe infarctions which appear to be chronic. The chest x-ray showed no evidence of pneumonia. A CT scan of the abdomen pelvis showed the patient had a nonobstructing kidney stone in the left renal pole. Labs included a CBC her white blood cell count platelet count were normal. Hemoglobin and hematocrit were 12.1 and 37.4. Chemistry profile showed sodium and potassium were normal. His BUN was normal and his creatinine was elevated at 1.5. Urinalysis was not indicative of infection. A bio fire panel was sent and was negative for all viruses tested. At the time of my interview the patient was resting comfortably in bed he was no distress. Allergies Allergy/AdvReac Type Severity Reaction Status Date / Time Penicillins Allergy Severe SEE COMMENT Verified 03/09/24 03:24 erythromycin base Allergy Intermediate Itching Verified 03/09/24 03:24 indomethacin Allergy Intermediate HIVES Verified 03/09/24 03:24 neomycin Allergy Intermediate BLISTERS Verified 03/09/24 03:24 vancomycin Allergy Intermediate ITCHING--ALL Verified 03/09/24 03:24 MYCIN DRUGS fentanyl AdvReac Severe "DID NOT Verified 03/09/24 03:24 TOLERATE"-patch- "went nuts" ibuprofen AdvReac Severe Ulcer Verified 03/09/24 03:24 history ketorolac AdvReac Mild NAUSEA Verified 03/09/24 03:24 aspirin AdvReac Unknown "BLEEDING" Verified 03/09/24 03:24 S/P GASTRIC BYPASS Home Medications Medication Instructions Recorded Confirmed Type cyclobenzaprine 10 mg tablet 10 mg PO BID 02/01/24 03/09/24 History famotidine 40 mg tablet 40 mg PO HS 02/01/24 03/09/24 History memantine 10 mg tablet 10 mg PO AMHS 02/01/24 03/09/24 History mirtazapine 15 mg tablet 15 mg PO HS 02/01/24 03/09/24 History olanzapine 5 mg tablet 5 mg PO HS 02/01/24 03/09/24 History oxycodone-acetaminophen 5 mg-325 1 tab PO Q4H PRN pain,severe 02/01/24 03/09/24 History mg tablet pantoprazole 40 mg tablet,delayed 40 mg PO AMHS 02/01/24 03/09/24 History release promethazine 12.5 mg tablet 12.5 mg PO TID PRN Nausea 02/01/24 03/09/24 History tamsulosin 0.4 mg capsule 0.4 mg PO HS 30 days #30 caps 02/14/24 03/09/24 Rx allopurinol 300 mg tablet 300 mg PO DAILY 02/25/24 03/09/24 History atorvastatin 10 mg tablet 10 mg PO QAM 02/25/24 03/09/24 History cyanocobalamin (vitamin B-12) 1,000 mcg IM .EVERY 4 WEEKS 02/25/24 03/09/24 History 1,000 mcg/mL injection solution docusate sodium 100 mg capsule 200 mg PO AMHS 02/25/24 03/09/24 History loratadine 10 mg tablet 10 mg PO QAM 02/25/24 03/09/24 History lorazepam 1 mg tablet 1 mg PO Q8 PRN Anxiety 02/25/24 03/09/24 History melatonin 10 mg tablet 10 mg PO HS 02/25/24 03/09/24 History morphine 5 mg/mL injection solution 0 mg continuous subcutaneous 02/25/24 03/09/24 History infusion .WEANING OFF oxycodone 10 mg tablet 10 mg PO AMHS 02/25/24 03/09/24 History trazodone 50 mg tablet 25 mg PO HS PRN Insomnia 02/25/24 03/09/24 History zinc acetate 50 mg (zinc) capsule 50 mg PO DAILY 02/25/24 03/09/24 History magnesium oxide 400 mg (241.3 mg 400 mg PO QAM #14 tabs 02/26/24 03/09/24 Rx magnesium) tablet potassium chloride 10 mEq 10 meq PO DAILY #14 tabs 02/26/24 03/09/24 Rx tablet,extended release(part/cryst) copper 2 mg PO DAILY 03/09/24 03/09/24 History Patient History Medical History (Updated 03/09/24 @ 05:48 by Erwin Holt PA-C) History of fracture of right ankle Hx of fracture of skull 7 FX AND HAS SOME PROBLEMS WITH MEMORY Gastric ulcer Hydronephrosis B/L per [facility] 10/12/18 Surgical History S/P ureteral stent placement History of cystoscopy W/ LITHO/BASKET STONE EXTRACTION - 10/07/18 [facility]. LMA #5. History of surgery on left wrist History of arthroscopy of right shoulder Hx of right knee surgery S/P insertion of intrathecal pump FOLLOW WITH DR LAKIA PACKER FROM [place] History of back surgery UPPER BACK FUSION, 7 DIFFERENT FRACTURES AND MULTIPLE SURGERIES AND IS FUSED multiple revisions H/O inguinal hernia repair H/O lithotripsy S/P exploratory laparotomy (Unknown) 2010 RUPTURED DIVERTICULI S/P appendectomy (Unknown) S/P cholecystectomy (Unknown) S/P gastric bypass mike en y (2010) Family History Mother DM type 2 (diabetes mellitus, type 2) Father DM type 2 (diabetes mellitus, type 2) Social History Smoking Status: Never smoker Tobacco Type: Smokeless Tobacco (Dip or Chew) Second Hand Exposure: No; Do You Dip or Chew Tobacco: Yes; Hx Alcohol Use: No Hx Substance Use: No Preferred Language: [place] Communication Ability: Effective Communication Ability Comment: Unable to write per spouse & reading difficulty Visual Impairment: No Limitations Melter Clerk Required: No Beliefs That Will Affect Care: None Current Living Situation: Spouse Current Living Situation Comment: lives with Feels Safe at Home: Yes Assistive Devices: Wheelchair Review of Systems Review of Systems: All systems reviewed & are unremarkable except as noted in HPI & below Physical Exam Constitutional: WD/WN, vitals as above Eyes: no conjunctival abnormality ENMT: Ears: no hearing impairment and no external ear abnormality Mouth: no oropharynx abnormality Neck: trachea midline Respiratory: Patient appeared to be breathing comfortably. He was not wheezing. No accessory muscle was noted. Use Cardiovascular: Rate/Rhythm: regular rate and regular rhythm Gastrointestinal (Abdomen): Soft, nondistended, nonrigid, nontender to palpation Musculoskeletal: No calf tenderness Skin: no rashes Neurologic: moves all extremities Genitourinary: No CVA tenderness with percussion bilaterally. The urinary catheter is in place and is patent and draining clear yellow urine Results & Data Vital Signs (Past 12 Hours) Vital Signs Temp Pulse Pulse Resp BP BP Pulse Ox 03/09/24 05:20 36.5 C 68 18 125/84 100 03/09/24 04:30 68 18 104/55 L 100 03/09/24 04:06 57 L 16 93/53 L 98 03/09/24 03:12 63 03/09/24 03:00 58 L 18 105/75 100 03/09/24 01:42 58 L 120/76 97 03/09/24 00:24 61 16 99 03/09/24 00:14 62 96 03/08/24 23:17 70 13 129/79 99 03/08/24 23:16 69 03/08/24 22:54 36.7 C 82 16 130/85 98 O2 Del Method 03/09/24 05:20 Room Air 03/09/24 04:30 03/09/24 04:06 03/09/24 03:12 03/09/24 03:00 03/09/24 01:42 Room Air 03/09/24 00:24 Room Air 03/09/24 00:14 Room Air 03/08/24 23:17 Room Air 03/08/24 23:16 03/08/24 22:54 Room Air PG Care Time/CCT Total # of Minutes Spent Total Time Spent with Patient: Total time spent is greater than 50% in coordination of care (as documented) at patient's floor/unit and/or counseling patient: Coding Level of Care Code 09738 INT INP/OBS CARE 3/75MIN Diagnoses Urinary retention R33.9
[2024-03-09] MEDS: CLOTRIMAZOLE 1% CR 15 GM TUBE EXT SCH (05:58)
[2024-03-09 06:46] LABS: Basophils # (auto) 0.03 K/uL (0.00-0.20); Basophils % (auto) 0.6 %; Hematocrit (blood only) 32.8 % (42.0-52.0); Hemoglobin 10.8 g/dl (14.0-18.0); Immature Granulocytes # (auto) 0.01 K/uL (0.01-0.20); Immature Granulocytes % (auto) 0.2 %; Lymphocytes # (auto) 2.11 K/uL (1.20-3.40); Lymphocytes % (auto) 42.6 %; Mean Corpuscular Hemoglobin 29.5 pg (25.0-34.0); Mean Corpuscular Hgb Conc 32.9 g/dL (32.0-36.0); Mean Corpuscular Volume 89.6 fL (80.0-100.0); Mean Platelet Volume 10.5 fL (9.4-12.4); Monocytes # (auto) 0.42 K/uL (0.11-0.59); Monocytes % (auto) 8.5 %; Neutrophils # (auto) 2.28 K/uL (1.40-6.50); Neutrophils % (auto) 46.1 %; Platelet Count 169 K/uL (130-400); Red Blood Count 3.66 M/uL (4.70-6.10); White Blood Count 4.95 K/ul (4.8-10.8)
[2024-03-09 06:50] LABS: BUN Creatinine Ratio 9.9 (10-20); Calcium 8.7 mg/dl (8.6-10.3); Creatinine Clr Calc Pharmacy 54.2 ml/min
[2024-03-09 07:53] VITALS: TEMP 97.9; O2SAT 96
[2024-03-09] MEDS: PANTOprazole 40 MG TAB PO SCH (09:08)
[2024-03-09] MEDS: MEMANTINE HCL 10 MG TAB PO SCH (09:08)
[2024-03-09] MEDS: allopurinoL 300 MG TAB PO SCH (09:09)
[2024-03-09] MEDS: ATORVASTATIN 10 MG TAB PO SCH (09:09)
[2024-03-09] MEDS: LORATADINE 10 MG TAB PO SCH (09:09)
[2024-03-09] MEDS: CYCLOBENZAPRINE HCL 10 MG TAB PO SCH (09:09)
[2024-03-09] MEDS: DOCUSATE SODIUM 100 MG CAP PO SCH (09:10)
[2024-03-09] MEDS: oxyCODONE HCL IR 5 MG TAB (IMMEDIATE RELEASE) PO SCH (09:11)
--- NOTE | 2024-03-09 09:51 | Discharge Summary ---
Discharge Summary Date of Service March 09, 2024 Principal Dx & Hospital Course #1 = Principal Diagnosis (1) Encephalopathy: Encephalopathy: Delirium on dementia History traumatic brain injury Recurrent admissions Multifactorial ARF, urinary retention home narcotics and neuropsychotropic medications hx nonobstructive CAD as per records hypertension, BP on the lower side hx gastric bypass chronic back pain on narcotics chronic anemia, hemoglobin better than baseline possibly from mild hemoconcentration prediabetes, hemoglobin A1c of 5.7 from 2018 Bilateral axillary rash ? Fungal etiology past tobacco/alcohol abuse. OBS Medical telemetry Baseline UA monitor creatinine response to IVF Maintain Newman catheter, continue Flomax Urology consult Re: Urinary retention Palliative care consult to discuss goals of care with patient/family given r ecurrent admissions (Patient unable to see provider during prior admissions. Patient was set to see outpatient palliative care provider tomorrow as per as per PCP recommendations. Topical antifungal trial for bilateral axillary rash DVT prophylaxis. SCDs DNR as per patient's prior directives as per . Patient requesting updates providers. Ms. Sugey Thomas, contact #[phone]. Text document was generated using [employer] voice recognition software. It may contain grammatical or spelling errors. Kindly contact undersigned for clarification of any documentation item in question. (2) Urinary retention: (3) Vascular dementia: (4) BPH (benign prostatic hyperplasia): (5) CKD stage 3b, GFR 30-44 ml/min: Notes For Next Care Provider Medication Changes From Visit None Admission HPI Per Admitting Provider Patient was admitted to the hospital with some mild alteration in his cognitive impairment, CT of the head was showing evidence of what appears to be vascular dementia mainly involving frontal lobes, urine dipstick did not show any evidence of UTI, Newman catheter was introduced and bladder was emptied, patient was seen by urology and recommended to have Newman catheter as outpatient until patient seen urology as outpatient later and have a voiding trial done, patient was seen and examined, clinically stable, he had minimal nausea and vomited once but do not see any acute events, on exam it was unremarkable. Overall I feel that with Newman catheter in place, with return of his kidney function to normal he will continue to improve. He had mild BLANCO superimposed on his CKD stage III on admission which is believed to be secondary to worsening BPH and bladder neck obstruction. Patient is clinically stable for discharge home with follow-up as outpatient. Nursing staff will educate family on how to care for the Newman catheter at home. Medical History as above Surgical History : Finger amputation, ex lap, lithotripsy, gastric bypass, cholecystectomy, appendectomy, hernia repair, back surgery, knee surgery Family History : Heart disease, diabetes, kidney disease Personal/Social history : Past tobacco/alcohol abuse, disabled Discharge Exam VITALS: Reviewed. WEIGHT/BMI reviewed. GEN: Healthy appearing, well-developed, NAD. NECK: Supple, with no masses. CV: RRR, no m/r/g. LUNGS: CTAB, no w/r/c. ABD: Soft, NT/ND, NBS, no masses or organomegaly. : Newman catheter in place, urine is clear MSK: No deformities, Normal gait. EXT: No clubbing, cyanosis, or edema. NEURO: Ambulating with no limitations. Normal muscle strength and tone. No focal deficits. Updated Medication List Medication Instructions Recorded Confirmed Type cyclobenzaprine 10 mg tablet 10 mg PO BID 02/01/24 03/09/24 History famotidine 40 mg tablet 40 mg PO HS 02/01/24 03/09/24 History memantine 10 mg tablet 10 mg PO AMHS 02/01/24 03/09/24 History mirtazapine 15 mg tablet 15 mg PO HS 02/01/24 03/09/24 History olanzapine 5 mg tablet 5 mg PO HS 02/01/24 03/09/24 History oxycodone-acetaminophen 5 mg-325 1 tab PO Q4H PRN pain,severe 02/01/24 03/09/24 History mg tablet pantoprazole 40 mg tablet,delayed 40 mg PO AMHS 02/01/24 03/09/24 History release promethazine 12.5 mg tablet 12.5 mg PO TID PRN Nausea 02/01/24 03/09/24 History tamsulosin 0.4 mg capsule 0.4 mg PO HS 30 days #30 caps 02/14/24 03/09/24 Rx allopurinol 300 mg tablet 300 mg PO DAILY 02/25/24 03/09/24 History atorvastatin 10 mg tablet 10 mg PO QAM 02/25/24 03/09/24 History cyanocobalamin (vitamin B-12) 1,000 mcg IM .EVERY 4 WEEKS 02/25/24 03/09/24 History 1,000 mcg/mL injection solution docusate sodium 100 mg capsule 200 mg PO AMHS 02/25/24 03/09/24 History loratadine 10 mg tablet 10 mg PO QAM 02/25/24 03/09/24 History lorazepam 1 mg tablet 1 mg PO Q8 PRN Anxiety 02/25/24 03/09/24 History melatonin 10 mg tablet 10 mg PO HS 02/25/24 03/09/24 History morphine 5 mg/mL injection solution 0 mg continuous subcutaneous 02/25/24 03/09/24 History infusion .WEANING OFF oxycodone 10 mg tablet 10 mg PO AMHS 02/25/24 03/09/24 History trazodone 50 mg tablet 25 mg PO HS PRN Insomnia 02/25/24 03/09/24 History zinc acetate 50 mg (zinc) capsule 50 mg PO DAILY 02/25/24 03/09/24 History magnesium oxide 400 mg (241.3 mg 400 mg PO QAM #14 tabs 02/26/24 03/09/24 Rx magnesium) tablet potassium chloride 10 mEq 10 meq PO DAILY #14 tabs 02/26/24 03/09/24 Rx tablet,extended release(part/cryst) copper 2 mg PO DAILY 03/09/24 03/09/24 History Additional Medication Comments Current Inpatient Medications Acetaminophen (Acetaminophen 325 Mg Tab) 650 mg PO QID PRN PRN Reason: pain/fever Stop: 04/08/24 04:03 Last Admin: 03/09/24 04:47 Dose: 650 mg Allopurinol (Allopurinol 300 Mg Tab) 300 mg PO DAILY [facility] Stop: 04/08/24 08:59 Last Admin: 03/09/24 09:09 Dose: 300 mg Atorvastatin Calcium (Atorvastatin 10 Mg Tab) 10 mg PO QAM [facility] Stop: 04/08/24 08:59 Last Admin: 03/09/24 09:09 Dose: 10 mg Clotrimazole (Clotrimazole 1% Cr 15 Gm Tube) 1 appln EXT BID [facility] Stop: 04/08/24 04:09 Last Admin: 03/09/24 05:58 Dose: 1 appln Cyanocobalamin (Cyanocobalamin 1000 Mcg/Ml Vial) 1,000 mcg IM Q28D@0900 [facility] Stop: 04/08/24 04:14 Cyclobenzaprine HCl (Cyclobenzaprine Hcl 10 Mg Tab) 10 mg PO BID [facility] Stop: 04/08/24 08:59 Last Admin: 03/09/24 09:09 Dose: 10 mg Docusate Sodium (Docusate Sodium 100 Mg Cap) 200 mg PO AMHS [facility] Stop: 04/08/24 08:59 Last Admin: 03/09/24 09:10 Dose: 200 mg Famotidine (Famotidine 40 Mg Tablet) 40 mg PO HS [facility] Stop: 04/08/24 20:59 Sodium Chloride (Nss) 1,000 mls @ 100 mls/hr IV .Q10H ONE Stop: 03/09/24 13:29 Last Admin: 03/09/24 04:43 Dose: 100 mls/hr Promethazine HCl (Phenergan) 6.25 mg in 50.25 mls @ 201 mls/hr IV Q6H PRN PRN Reason: Nausea And Vomiting Stop: 04/08/24 04:03 Loratadine (Loratadine 10 Mg Tab) 10 mg PO QAM [facility] Stop: 04/08/24 08:59 Last Admin: 03/09/24 09:09 Dose: 10 mg Melatonin (Melatonin 3 Mg Tab) 9 mg PO HS [facility] Stop: 04/08/24 20:59 Memantine (Memantine Hcl 10 Mg Tab) 10 mg PO BID [facility] Stop: 04/08/24 08:59 Last Admin: 03/09/24 09:08 Dose: 10 mg Mirtazapine (Mirtazapine Tab 15 Mg Tab) 15 mg PO HS [facility] Stop: 04/08/24 20:59 Olanzapine (Olanzapine 5 Mg Tablet) 5 mg PO HS [facility] Stop: 04/08/24 20:59 Oxycodone HCl (Oxycodone Hcl Ir 5 Mg Tab (Immediate Release)) 10 mg PO BID [facility] Stop: 03/23/24 08:59 Last Admin: 03/09/24 09:11 Dose: 10 mg Oxycodone HCl (Oxycodone Hcl Ir 5 Mg Tab (Immediate Release)) 5 mg PO Q4H PRN PRN Reason: Pain Stop: 03/23/24 04:03 Pantoprazole Sodium (Pantoprazole 40 Mg Tab) 40 mg PO BID [facility] Stop: 04/08/24 08:59 Last Admin: 03/09/24 09:08 Dose: 40 mg Tamsulosin HCl (Tamsulosin Hcl 0.4 Mg Cap) 0.4 mg PO HS [facility] Stop: 04/08/24 20:59 Trazodone HCl (Trazodone Hcl 50 Mg Tab) 25 mg PO HS PRN PRN Reason: Insomnia Stop: 04/08/24 04:00 Hospital Stay Data Consultations 03/09/24 04:04 Consult Urology Routine 03/09/24 04:57 ED Decision to Admit Stat 03/09/24 05:32 Consult Palliative Care Routine Procedures Performed Newman catheter insertion Diagnostic Imagining Performed 03/09/24 00:28 CT Abd and Pelvis [CT abd pelvis wo con] Stat CT head/brain wo con Stat Pending Results Patient Have Any Pending Studies at Discharge: No Discharge Instructions Given to Patient (Per Discharging Provider) Patient to follow-up with urology as outpatient Total Time Total Time Spent Total Time Spent (In Minutes): 45 minutes
[2024-03-09] MEDS: PROMETHAZINE 6.25 MG/50.25 ML BAG IV PRN (10:49)
[2024-03-09 12:26] VITALS: BP 125/84; PULSE 68
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
--- NOTE | 2024-03-09 14:03 | Electrocardiogram Report ---
Test Reason : Blood Pressure : */* mmHG Vent. Rate : 61 BPM Atrial Rate : 61 BPM P-R Int : 132 ms QRS Dur : 110 ms QT Int : 460 ms P-R-T Axes : 57 37 62 degrees QTcB Int : 463 ms Normal sinus rhythm Incomplete right bundle branch block Borderline ECG When compared with ECG of 26-Feb-2024 09:54, Criteria for Anterior infarct are no longer Present Confirmed by Toan Bowen ([id number]) on 03/09/2024 2:03:11 PM Referred By: REFERRED SELF Confirmed By: Toan Bowen
[2024-03-09] MEDS ORDERED: OLANZapine 5 MG TABLET PO SCH (21:00)
[2024-03-09] MEDS ORDERED: FAMOTIDINE 40 MG TABLET PO SCH (21:00)
[2024-03-09] MEDS ORDERED: MELATONIN 3 MG TAB PO SCH (21:00)
[2024-03-09] MEDS ORDERED: MIRTAZAPINE TAB 15 MG TAB PO SCH (21:00)
--- OUTSIDE RECORDS SUMMARY | 2024-03-10 03:50 | External Medical Summary | Summary of Care ---
Author Name Unknown Organization [facility] Address [address] [place] [address] Phone [phone] Care Team Providers Care Title I Teacher Name Role Phone Andrea Mayer DO Primary Care Provider Reason for Referral * Medication Prior Authorization - Closed Specialty Diagnoses / Procedures Referred By Contac t Referred To Contact Diagnoses History of trauma to spine Andrea Mayer DO [address] [place] [address] Phone: tel: fax: Referral ID Status Reason Start Date Expiration Date Visits Re quested Visits Authorized [id number] Closed [phone] Reason for Visit * Reason Onset Date Comments Medication Refill 03/02/2024 Encounter Details Date Type Department Care Team (Late st Contact Info) Description 03/02/2024 Refill Family Practice [facility] [address] [place] [address] Annette Meadows RN [address] [place] [address] History of trauma to spine* Allergies Active Allergy Reactions Criticality Noted Date [...] as of this encounter (statuses as of 03/02/2024) Medications MORPHINE 5 MG/ML HOTEL ADMINISTRATIVE ASSISTANT SQ INFUSION (AMBULATORY)Ind ications:MEDICA TION USE AGREEMENT Dose morphine per Pain management 1 Bolus Dosing Unit 5 4 Active Pantoprazole Sodium 40 MG Oral Tablet Delayed Release (Protonix)Indic ations:Acute gastric ulcer with hemorrhage TAKE ONE TABLET BY MOUTH TWICE A DAY - MORNING AND BEFORE BEDTIME 200 Tablet 1 10/02/2023 12:11 PM EDT 4 025 Active Allopurinol 300 MG Oral Tablet (Zyloprim)Indic [...] in the morning. As needed . Active Tamsulosin HCl 0.4 MG Oral Capsule (Flomax) Take 1 Capsule by mouth in the morning. Active oxyCODONE HCl 10 MG Oral Tablet (Roxicodone)Ind ications:Other chronic pain Take 1 Tablet by mouth in the morning and 1 Tablet before bedtime. 60 Tablet 02/17/2024 7:53 AM EST 4 Active OLANZapine 5 MG Oral Tablet (zyPREXA) Take 1 Tablet by mouth at bedtime. 30 Tablet 02/24/2024 5:27 PM EST 4 Active traZODone HCl 50 MG Oral Tablet (Desyrel)Indica tions:Coronary artery disease involving robinson coronary artery of robinson heart without angina pectoris,Stage 3a chronic kidney disease (HCC),Gastroeso phageal reflux disease without esophagitis,Dem entia (HCC) Take one-half tablet by mouth at bedtime as needed for insomnia 90 Tablet 3 02/25/2024 9:37 AM EST 4 Active Potassium Chloride ER 10 MEQ Oral Capsule Extended Release Take by mouth. Activ e Magnesium 400 MG Oral Tablet Take by mouth. Active oxyCODONE-Aceta minophen 5-325 MG Oral Tablet (Percocet)Indic ations:History of trauma to spine Take 1 Tablet by mouth every 4 [...] inj 1,000 mcgIndications:B12 deficiency 1000 mcg IM [id number] 01/28/2024 12/29/2024 Active documented as of this encounter (statuses as of 03/02/2024) Active Problems Problem Noted Date Diagnosed Date [...] anemia 04/24/2017 Coronary artery disease invo lving robinson heart without angina pectoris 04/18/2016 Incomplete tear of right rotator cuff 04/15/2016 Overview (04/15/2016): 04/23 Dr Eduardo guerrero. Anxiety 09/28/2014 Diverticulitis of colon 09/16/2014 Intestinal postoperative nonabsorption 1 CALLAHAN RESEARCH OTHER*[id number] 09/14/2009 MEDICATION USE AGREEMENT 05/19/2008 Overview (05/19/2008): See kim GERD (gastroesophageal reflux disease) Gout S/P gastric bypass S/P spinal fusion documented as of this encounter (statuses as of 03/02/2024) Resolved Problems Problem Noted Date Diagnosed Date [...] Tobacco use disorder 09/18/2009 011 Bariatric Proteinuria Research*[id number] 09/14/2009 12/27/2009 Organic sleep disorder 06/22/200910/10 Morbid [...] as of this encounter (statuses as of 03/02/2024) Immunizations Name Administration Dates Next Due COVID-19 [...] No 01/22/2024 Does the household have a [facility] source of income? 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 * Telephone Encounter - Annette Meadows RN - 03/02/2024 10:42 AM EST Spoke with Alisha. She states patient has constant back pain at a rate of 9 on 1/10 scale. She states he takes percocet every 4 hours because the oxycodone does not last very long. She's wondering if oxycodone can be adjusted so he needs less percocet throughout the day. documented in this encounter Plan of Treatment Upcoming Encounters Date Type Department Care Team (Late st Contact Info) Description 03/09/2024 2:20 PM EST Office Visit Family Practice [facility] [address] [place] [address] Andrea Mayer DO [address] [facility] [address] 03/10/2024 1:00 PM EST Office Visit Palliative Medicine [facility] [address] [place] [address] Josseline Post MD [address] [place] [address] 04/15/2024 9:00 AM EST Office Visit Neurology [address] [place] [phone] Heather Franklin CRNP 100 [facility] [place] [id number] 05/20/2024 1:40 PM EST Office Visit [facility] [address] [place] [address] Andrea Mayer, DO [address] [place] [address] 10/28/2024 11:40 AM EDT Office Visit [facility] [address] [place] [address] Andrea Mayer, DO [address] [place] [address] Scheduled Procedures Name Priority Associated Diagnoses Date/Ti [...] Additional history exists CKD HGB USE SMARTSET 80717 11/24/202411/24, 11/25/2023, 06/11/2023, Additional history exists CKD PHOS USE SMARTSET 62765 11/24/202411/06, 06/11/2023, 12/24/2019 Depression Screening 01/21/2025 01/22/2024 [...] as of this encounter Visit Diagnoses Diagnosis History of trauma to spine- Primary documented in this encounter Advance Directives Documents on File Type Date Recorded Patient Appointment Manager Expl 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 Care Teams Title I Teacher Relationship Specialty Start Date End Date Andrea Mayer DO [address] [place] [address] PCP - General Family Medicine 05/26/23 documented as of this encounter
--- OUTSIDE RECORDS SUMMARY | 2024-03-10 03:50 | External Medical Summary | Summary of Care ---
Author Name Unknown Organization [facility] Address [address] [place] [address] Phone [phone] Care Team Providers Care Cement Boat And Barge Loader Name Role Phone Charles Mayer DO Primary Care Provider Reason for Referral * Medication Prior Authorization - Closed Specialty Diagnoses / Procedures Referred By Contac t Referred To Contact Diagnoses History of trauma to spine Charles Mayer DO [address] [place] [address] Phone: tel: fax: Referral ID Status Reason Start Date Expiration Date Visits Re quested Visits Authorized [id number] Closed [phone] Reason for Visit * Reason Onset Date Comments Medication Refill 03/02/2024 Encounter Details Date Type Department Care Team (Late st Contact Info) Description 03/02/2024 Refill Family Practice [facility] [address] [place] [address] Annette Meadows RN [address] [place] [address] History of trauma to spine* [...] as of 03/02/2024) Medications MORPHINE 5 MG/ML TECHNOLOGY CONSULTANT SQ INFUSION (AMBULATORY)Ind ications:MEDICA TION USE AGREEMENT [...] Oral Tablet (Desyrel)Indica tions:Coronary artery disease involving [place] coronary artery of [place] heart without angina pectoris,Stage 3a chronic kidney [...] inj 1,000 mcgIndications:B12 deficiency 1000 mcg IM [id number] 01/28/2024 12/29/2024 Active documented as of this [...] anemia 04/24/2017 Coronary artery disease invo lving [place] ir[place] heart without angina pectoris 04/18/2016 Incomplete tear of right rotator cuff 04/15/2016 Overview (04/15/2016): 04/23 Dr Eduardo guerrero. Anxiety 09/28/2014 Diverticulitis of colon 09/16/2014 Intestinal postoperative nonabsorption 1 CALLAHAN RESEARCH OTHER*[id number] 09/14/2009 MEDICATION USE AGREEMENT 05/19/2008 Overview (05/19/2008): [...] S/p gastric bypass. Pain mgmt Dr Syed Asencio--[facility] +pain pump 02/22 EGD-Gastric bypass with a [...] Tobacco use disorder 09/18/2009 011 Bariatric Proteinuria Research*[id number] 09/14/2009 12/27/2009 Organic sleep disorder 06/22/200910/10 Morbid [...] No 01/22/2024 Does the household have a [facility] source [facility]? 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 [address] [place] [phone] Josseline Post MD [address] [place] [address] 04/15/2024 9:00 AM EST Office Visit Neurology [address] [place] [phone] Heather Franklin CRNP [address] [place], [place] [phone] 05/20/2024 1:40 PM EST Office Visit [facility] [address] [place] [address] Charles Mayer, [address] [place] [address] 10/28/2024 11:40 AM EDT Office Visit [facility] [address] [place] [address] Charles Mayer DO [address] [place] [address] Scheduled Procedures Name Priority Associated Diagnoses Date/Ti [...] Additional history exists CKD HGB USE SMARTSET 04612 11/24/202411/24, 11/25/2023, 06/11/2023, Additional history exists CKD PHOS USE SMARTSET 83497 11/24/202411/06, 06/11/2023, 12/24/2019 Depression Screening 01/21/2025 01/22/2024 [...] Documents on File Type Date Recorded Patient Coil Builder Expl 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 Care Teams Cement Boat And Barge Loader Relationship Specialty Start Date End Date Charles Mayer DO [address] [place] [address] PCP - General Family Medicine 05/26/23 documented as of this encounter
--- OUTSIDE RECORDS SUMMARY | 2024-03-10 03:50 | External Medical Summary | Summary of Care ---
Author Name Unknown Organization [facility] Address [address] [place] [address] Phone [phone] Care Team Providers Care Family Services Worker Name Role Phone Charles Mayer DO Primary Care Provider Reason for Visit * Reason Comments Medication Refill Encounter Details Date Type Department Care Team (Late st Contact Info) Description 03/02/2024 Refill Family Practice [facility] [address] [facility] [place] [address] Heather Franklin CRNP [address] [place] [address] Coronary artery disease involving [place] coronary artery of [place] heart without angina pectoris; Stage 3a chronic [...] as of this encounter (statuses as of 03/08/2024) Medications MORPHINE 5 MG/ML DEVELOPER ADVISOR SQ INFUSION (AMBULATORY)[place] cations:MEDICATI ON USE AGREEMENT Dose morphine per Pain management 1 Bolus Dosing Unit 5 4 Active Pantoprazole Sodium 40 MG Oral Tablet Delayed Release (Protonix)Indica tions:Acute gastric ulcer with hemorrhage TAKE ONE TABLET BY MOUTH TWICE A DAY - MORNING AND BEFORE BEDTIME 200 Tablet 1 10/02/2023 12:11 PM EDT 4 06/22/19 25 Active Allopurinol 300 MG Oral Tablet (Zyloprim)Indica [...] Oral Tablet (Desyrel)Indicat ions:Coronary artery disease involving [place] coronary artery of [place] heart without angina pectoris,Stage 3a chronic kidney disease (HCC),Gastroesop hageal reflux disease without esophagitis,Oscar ntia (HCC) Take one-half tablet by mouth at bedtime as needed for insomnia 90 Tablet 3 02/25/2024 9:37 AM EST 4 Active Potassium Chloride ER 10 MEQ Oral Capsule Extended Release Take by mouth. Active Magnesium 400 MG Oral Tablet Take by mouth. Act pernell oxyCODONE-Acetam inophen 5-325 MG Oral Tablet (Percocet)Indica tions:History of trauma to spine Take 1 Tablet by mouth every 4 hours as needed for Pain, Severe. 30 Tablet 4 Active Hospital, Clinic, or Other Facility Administered Medication Ordered Dose Route Frequency Start Date End Date Status Vitamin B-12 (Cyanocobalamin) inj 1,000 mcgIndications:B12 deficiency 1000 mcg IM [id number] 01/28/2024 12/29/2024 Active documented as of this encounter (statuses as of 03/08/2024) Active Problems Problem Noted Date Diagnosed Date [...] Coronary artery disease invo lving [place] heart without angina pectoris 04/18/2016 Incomplete tear of right rotator cuff 04/15/2016 Overview (04/15/2016): 04/23 Dr Eduardo guerrero. Anxiety 09/28/2014 Diverticulitis of colon 09/16/2014 Intestinal postoperative nonabsorption 1 CALLAHAN RESEARCH OTHER*[id number] 09/14/2009 MEDICATION USE AGREEMENT 05/19/2008 Overview (05/19/2008): See kim GERD (gastroesophageal reflux disease) Gout S/P gastric bypass S/P spinal fusion documented as of this encounter (statuses as of 03/08/2024) Resolved Problems Problem Noted Date Diagnosed Date Resolved Date Kidney disease, chronic, sta ge III (GFR 30-59 ml/min) 11/16/2018 02/17/2020 Overview: Per CKD protocol Well adult exam 04/18/2016 09/24/2018 Overview (06/01/2018): ??Need eval hypoglycemia? S/p gastric bypass. 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 Please review and approve if appropriate. Pending Prescriptions: Disp Refills Mirtazapine 15 MG Oral Tablet (Remeron) 100 Ta*1 Sig: Take 1 Tablet by mouth at bedtime. Last Visit: 02/16/2024 (in office), Visit date not found (telemedicine) 03/09/2024 If no future appointments scheduled, and last appointment is greater than a year ago, please schedule patient for an appointment Last date the medication was ordered: 01/29/24 Patient Phone Numbers Labs: Lab Results Component Value Date/Time CREAT 1.5 (H) 01/28/2024 11:34 AM CREAT 1.5 (H) 12/24/2019 01:03 PM POTASSIUM 4.1 01/28/2024 11:34 AM POTASSIUM 4.1 12/24/2019 01:03 PM TSH 1.42 08/14/2020 09:23 AM TSH 1.73 12/29/2018 09:39 AM LDL 26 01/28/2024 11:34 AM LDL 22 12/24/2019 01:03 PM LDL NOT APPLICABLE 12/24/2019 01:03 PM ALT 11 01/28/2024 11:34 AM ALT 12 12/24/2019 01:03 PM HGBA1C 5.3 12/29/2018 09:39 AM * Telephone Encounter - Porsha Austin CPhT - 03/08/2024 11:24 AM ESTNo prescriptions requested or ordered in this encounter * Telephone Encounter - Heather Franklin CRNP - 03/03/2024 3:30 PM ESTPending Prescriptions: Disp Refills Mirtazapine 15 MG Oral Tablet (Remeron) 90 Tab*3 Sig: Take 1 Tablet by mouth at bedtime. * Telephone Encounter - Porsha Austin CPhT - 03/03/2024 1:12 PM EST MO to check on status of mirtazipine. Thank you, Porsha Austin CPhT II Window Shade Installer [facility] 03/03/2024, 1:12 PM * Telephone Encounter - Heather Franklin CRNP - 03/03/2024 9:47 AM EST I still haven't received a response since I received the last request for a refill for this medication I recommended doing the following when prescription was last sent in: I would recommend increasing the Mirtazapine to [...] I sent the refills to his pharmacy. Have they done the above as recommended? Unfortunately I will not be able to continue to provide refills for these medications if is unable to provide information and communicate with the office. I'm concerned about compliance with medication which could lead to worsening of his mood/psychiatric symptoms, resulting and significant safety concerns like those that resulted in his most recent hospitalization. Please confirm the above and I will send refills if appropriate. * Telephone Encounter - Yuval Botello RPh - 03/03/2024 8:55 AM EST Pending Prescriptions: Disp Refills Mirtazapine 15 MG Oral Tablet (Remeron) 90 Tab*3 Sig: Take 1 Tablet by mouth at bedtime. Electronically signed by Yuval Botello [facility] at 03/03/2024 8:55 AM EST * Telephone Encounter - Ila Oro OSA - 03/02/2024 12:16 PM ESTPending Prescriptions: Disp Refills Mirtazapine 15 MG Oral Tablet (Remeron) 90 Tab*3 Sig: Take 1 Tablet by mouth at bedtime. * Telephone Encounter - Bev Bess LPN - 03/02/2024 9:53 AM ESTPending Prescriptions: Disp Refills Mirtazapine 15 MG Oral Tablet (Remeron) 90 Tab*3 Sig: Take 1 Tablet by mouth at bedtime. * Telephone Encounter - Alecia Patel CPhT - 03/02/2024 9:45 AM EST Did you pend patient's preferred pharmacy and medication before forwarding?yes Pharmacy: [email or web address] Pending Prescriptions: Disp Refills Mirtazapine 15 MG Oral Tablet (Remeron) 90 Tab*3 Sig: Take 1 Tablet by mouth at bedtime. Last Visit: 02/16/2024 (in office), Visit date not found (telemedicine) Next Visit: 05/20/2024 If no future appointments scheduled, and last appointment is greater than a year ago, please schedule patient for a follow-up appointment Last date the medication was ordered: 01/29/24 Is this request for a controlled substance?No Urine Drug Screen:No results found. However, due to the size of the patient record, not all encounters were searched. Please check Results Review for a complete set of results. Patient Phone Numbers Labs: Lab Results Component Value Date/Time CREAT 1.5 (H) 01/28/2024 11:34 AM CREAT 1.5 (H) 12/24/2019 01:03 PM POTASSIUM 4.1 01/28/2024 11:34 AM POTASSIUM 4.1 12/24/2019 01:03 PM TSH 1.42 08/14/2020 09:23 AM TSH 1.73 12/29/2018 09:39 AM LDL 26 01/28/2024 11:34 AM LDL 22 12/24/2019 01:03 PM LDL NOT APPLICABLE 12/24/2019 01:03 PM ALT 11 01/28/2024 11:34 AM ALT 12 12/24/2019 01:03 PM HGBA1C 5.3 12/29/2018 09:39 AM documented in this encounter Plan of Treatment Upcoming Encounters Date Type Department Care Team (Late st Contact Info) Description 03/09/2024 2:20 PM EST [facility] Visit [facility] [address] [facility] [address] Charles [facility] [place] [address] 03/10/2024 1:00 PM EST Office Visit Palliative Medicine [facility] [address] [place] [phone] Josseline Post MD [address] [facility] [place] [address] 04/15/2024 9:00 AM EST Office Visit Neurology [address] [place] [phone] Heather Franklin CRNP 100 [facility] [place] [address] 05/20/2024 1:40 PM EST Office Visit [facility] [address] [place] [address] Charles Mayer, DO [address] [place] [address] 10/28/2024 11:40 AM EDT Office Visit [facility] [address] [place] [address] Charles Mayer, DO [address] [place] [address] Scheduled Procedures Name Priority Associated Diagnoses Date/Ti [...] Additional history exists CKD HGB USE SMARTSET 26610 11/24/202411/24, 11/25/2023, 06/11/2023, Additional history exists CKD PHOS USE SMARTSET 07309 11/24/2024 08, 06/11/2023, 12/24/2019 Depression Screening 01/21/2025 01/22/2024 Diabetes [...] Visit Diagnoses Diagnosis Coronary artery disease involving [place] coronary artery of [place] heart without angina pectoris Stage 3a chronic kidney disease Gastroesophageal reflux disease without esophagitis Esophageal reflux Dementia (HCC) Dementia, unspecified, without behavioral disturbance documented in this encounter Advance Directives Documents on File Type Date Recorded Patient Access Clerk Expl 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 Care Teams Family Services Worker Relationship Specialty Start Date End Date Charles Mayer DO [address] [place] [address] PCP - General Family Medicine 05/26/23 documented as of this encounter
--- OUTSIDE RECORDS SUMMARY | 2024-03-10 03:50 | External Medical Summary | Summary of Care ---
Author Name Unknown Organization [facility] Address [address] [place] [address] Phone [phone] Care Team Providers Care Hyperion Administrator Name Role Phone Charles Mayer DO Primary Care Provider Reason for Visit * Reason Comments Medication Refill Encounter Details Date Type Department Care Team (Late st Contact Info) Description 03/02/2024 Refill Family Practice [facility] [address] [facility] [place] [address] Heather Franklin CRNP [address] [place] [address] Coronary artery disease involving [place] coronary artery of [place] heart without angina pectoris; Stage 3a chronic [...] as of 03/08/2024) Medications MORPHINE 5 MG/ML TIRE SHOP MANAGER SQ INFUSION (AMBULATORY)[place] cations:MEDICATI ON USE [...] Oral Tablet (Desyrel)Indicat ions:Coronary artery disease involving [place] coronary artery of [place] heart without angina pectoris,Stage 3a chronic kidney [...] inj 1,000 mcgIndications:B12 deficiency 1000 mcg IM [id number] 01/28/2024 12/29/2024 Active documented as of this [...] anemia 04/24/2017 Coronary artery disease invo lving [place] heart without angina pectoris 04/18/2016 Incomplete tear of right rotator cuff 04/15/2016 Overview (04/15/2016): 04/23 Dr Eduardo guerrero. Anxiety 09/28/2014 Diverticulitis of colon 09/16/2014 Intestinal postoperative nonabsorption 1 CALLAHAN RESEARCH OTHER*[id number] 09/14/2009 MEDICATION USE AGREEMENT 05/19/2008 Overview (05/19/2008): [...] S/p gastric bypass. 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 Thank you, Porsha Austin CPhT II Clinical Statistics Manager [facility] ([facility]) 03/03/2024, 1:12 [...] mouth at bedtime. * Telephone Encounter - Ila Oro OSA [...] preferred pharmacy and medication before forwarding?yes Pharmacy: [facility] Pending Prescriptions: Disp Refills [...] Description 03/09/2024 2:20 PM EST [facility] [address] [facility] [address] Charles [facility] [place] [address] 03/10/2024 1:00 PM EST Office Visit Palliative Medicine [facility] [address] [place] [phone] Josseline Post MD [address] [facility] [place] [address] 04/15/2024 9:00 AM EST Office Visit Neurology [address] [place] [phone] Heather Franklin CRNP 100 [facility] [place] [address] 05/20/2024 1:40 PM EST Office Visit [facility] [address] [place] [address] Charles Mayer, DO [address] [place] [address] 10/28/2024 11:40 AM EDT Office Visit [facility] [address] [place] [address] Charles Mayer, DO [address] [place] [address] Scheduled Procedures Name Priority Associated Diagnoses Date/Ti [...] Additional history exists CKD HGB USE SMARTSET 54591 11/24/202411/24, 11/25/2023, 06/11/2023, Additional history exists CKD PHOS USE SMARTSET 45711 11/24/2024 08, 06/11/2023, 12/24/2019 Depression Screening 01/21/2025 [...] Visit Diagnoses Diagnosis Coronary artery disease involving [place] coronary artery of [place] heart without angina pectoris Stage 3a chronic kidney disease Gastroesophageal reflux disease without esophagitis Esophageal reflux Dementia (HCC) Dementia, unspecified, without behavioral disturbance documented in this encounter Advance Directives Documents on File Type Date Recorded Patient Brand Marketing Coordinator Expl 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 Care Teams Hyperion Administrator Relationship Specialty Start Date End Date Charles Mayer DO [address] [place] [address] PCP - General Family Medicine 05/26/23 documented as of this encounter
--- OUTSIDE RECORDS SUMMARY | 2024-03-10 03:50 | External Medical Summary | Summary of Care ---
Author Name Unknown Organization [facility] Address [address] [place] [facility] [place] [address] Phone [phone] Care Team Providers Care Sample Grader Name Role Phone Moreno Charles Walden DO Primary Care Provider Encounter Details Date Type Department Care Team (Late st Contact Info) Description 03/01/2024 Population Health External Data Unspecified Department Allergies [...] as of this encounter (statuses as of 03/01/2024) Medications MORPHINE 5 MG/ML HAM STRIPPER SQ INFUSION (AMBULATORY)[place] cations:MEDICATI ON USE AGREEMENT [...] Oral Tablet (Desyrel)Indicat ions:Coronary artery disease involving [place] coronary artery of [place] heart without angina pectoris,Stage 3a chronic kidney disease (HCC),Gastroesop hageal reflux disease without esophagitis,Oscar ntia (HCC) Take one-half tablet by mouth at bedtime as needed for insomnia 90 Tablet 3 02/25/2024 9:37 AM EST 4 Active Hospital, Clinic, or Other Facility Administered Medication Ordered Dose Route Frequency Start Date End Date Status Vitamin B-12 (Cyanocobalamin) inj 1,000 mcgIndications:B12 deficiency 1000 mcg IM [id number] 01/28/2024 12/29/2024 Active documented as of this encounter (statuses as of 03/01/2024) Active Problems Problem Noted Date Diagnosed Date [...] 09/16/2014 Intestinal postoperative nonabsorption 1 CALLAHAN RESEARCH OTHER*[id number] 09/14/2009 MEDICATION USE AGREEMENT 05/19/2008 Overview (05/19/2008): See kim GERD (gastroesophageal reflux disease) Gout S/P gastric bypass S/P spinal fusion documented as of this encounter (statuses as of 03/01/2024) Resolved Problems Problem Noted Date Diagnosed Date [...] Tobacco use disorder 09/18/2009 011 Bariatric Proteinuria Research*[id number] 09/14/2009 12/27/2009 Organic sleep disorder 06/22/200910/10 Morbid [...] as of this encounter (statuses as of 03/01/2024) Immunizations Name Administration Dates Next Due COVID-19 [...] 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 Not on file Not on file documented as of this encounter Plan of Treatment Upcoming Encounters Date Type Department Care Team (Late st Contact Info) Description 03/01/2024 1:20 PM EST Office Visit [facility] [address] [place] [address] Charles Mayer DO [address] [place] [address] 03/10/2024 1:00 PM EST Office Visit Palliative Medicine [facility] [address] [facility] [place] [phone] Josseline Post MD [address] [place] [address] 04/15/2024 9:00 AM EST Office Visit Neurology [address] [place] [address] Heather Franklin CRNP [address] [place] [address] 05/20/2024 1:40 PM EST Office Visit [facility] [address] [place] [address] Charles Mayer DO [address] [place] [address] 10/28/2024 11:40 AM EDT Office Visit [facility] [address] [place] [address] Charles Mayer, DO [address] [place] [address] Scheduled Procedures Name Priority Associated Diagnoses Date/Ti [...] Additional history exists CKD HGB USE SMARTSET 41353 11/24/202411/24, 11/25/2023, 06/11/2023, Additional history exists CKD PHOS USE SMARTSET 36445 11/24/202411/06, 06/11/2023, 12/24/2019 Depression Screening 01/21/2025 01/22/2024 [...] Documents on File Type Date Recorded Patient Clerical Support Specialist Expl 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 Care Teams Sample Grader Relationship Specialty Start Date End Date Charles Mayer DO [address] [place] [address] PCP - General Family Medicine 05/26/23 documented as of this encounter
--- OUTSIDE RECORDS SUMMARY | 2024-03-10 05:17 | External Medical Summary | Summary of Care ---
Author Name Unknown Organization [facility] Address [address] [place] [address] Phone [phone] Care Team Providers Care Custom Framing Specialist Name Role Phone Charles Mayer DO Primary Care Provider Reason for Visit * Reason Comments Medication Refill Encounter Details Date Type Department Care Team (Late st Contact Info) Description 03/02/2024 Refill Family Practice [facility] 132 [facility] [place] [address] Juany Franklin CRNP [address] [place] [address] Coronary artery disease involving [place] coronary artery of [place] heart without angina pectoris; Stage 3a chronic [...] as of 03/08/2024) Medications MORPHINE 5 MG/ML LEAD WELDER SQ INFUSION (AMBULATORY)[place] cations:MEDICATI ON USE AGREEMENT [...] Oral Tablet (Desyrel)Indicat ions:Coronary artery disease involving [place] coronary artery of [place] heart without angina pectoris,Stage 3a chronic kidney disease (HCC),Gastroesop hageal reflux disease without esophagitis,Oscar ntia (HCC) Take one-half tablet by mouth at bedtime as needed for insomnia 90 Tablet 3 03/08/2024 12:00 PM EST 4 Active Potassium Chloride ER 10 [...] inj 1,000 mcgIndications:B12 deficiency 1000 mcg IM [id number] 01/28/2024 12/29/2024 Active documented as of this [...] anemia 04/24/2017 Coronary artery disease invo lving [place] heart without angina pectoris 04/18/2016 Incomplete tear of right rotator cuff 04/15/2016 Overview (04/15/2016): 04/23 Dr Eduardo guerrero. 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 Not on file Not on file documented as of this encounter Miscellaneous Notes * Telephone Encounter - Juany Franklin CRNP - 03/08/2024 4:10 PM ESTRefused Prescriptions: Disp Refills Mirtazapine 15 MG Oral Tablet (Remeron) 100 Ta*1 Sig: Take 1 Tablet by mouth at bedtime.Refused By: JUANY FRANKLIN for Refusal: Patient Should Contact Provider First * Addendum Note - Juany Franklin CRNP - 03/08/2024 4:10 PM ESTAddended by: JUANY FRANKLIN on: 03/08/2024 04:10 PM Modules accepted: Orders * Telephone Encounter - Juany Franklin CRNP - 03/08/2024 4:08 PM EST I still haven't received a response [...] refills if appropriate. * Telephone Encounter - Ila Oro OSA - 03/08/2024 12:36 PM ESTPending Prescriptions: Disp Refills Mirtazapine 15 MG Oral Tablet (Remeron) 100 Ta*1 Sig: Take 1 Tablet by mouth at bedtime. * Addendum Note - Porsha Austin CPhT [...] in this encounter * Telephone Encounter - Juany Franklin CRNP - 03/03/2024 3:30 PM ESTPending Prescriptions: Disp Refills Mirtazapine 15 MG Oral Tablet (Remeron) 90 Tab*3 Sig: Take 1 Tablet by mouth at bedtime. * Telephone Encounter - Porsha Austin CPhT - 03/03/2024 1:12 PM EST MO to check on status of mirtazipine. Thank you, Porsha Austin CPhT II Nailer Machine [facility] ([facility]) 03/03/2024, 1:12 PM * Telephone Encounter - Juany Franklin CRNP - 03/03/2024 9:47 AM EST [...] appropriate. * Telephone Encounter - Yuval Botello [facility] - 03/03/2024 8:55 AM EST Pending Prescriptions: [...] preferred pharmacy and medication before forwarding?yes Pharmacy: [facility] Pending Prescriptions: Disp Refills [...] 03/09/2024 2:20 PM EST Office Visit Family [facility] [address] [place] [address] Charles Mayer DO [address] [place] [address] 03/10/2024 1:00 PM EST Office Visit Palliative Medicine [facility] [address] [place] [address] Josseline Post MD [address] [facility] [place] [address] 04/15/2024 9:00 AM EST Office Visit Neurology [address] [place] [phone] Juany Franklin CRNP 100 [facility] [place] [address] 05/20/2024 1:40 PM EST Office Visit [facility] [address] [facility] [place] [address] Charles Mayer, DO [address] [facility] [address] 10/28/2024 11:40 AM EDT Office Visit [facility] 132 [facility] [place] [address] Charles Mayer, DO [facility] [address] Scheduled Procedures Name Priority Associated Diagnoses Date/Ti [...] Additional history exists CKD HGB USE SMARTSET 09010 11/24/202411/24, 11/25/2023, 06/11/2023, Additional history exists CKD PHOS USE SMARTSET 04872 11/24/202411/06, 06/11/2023, 12/24/2019 Depression Screening 01/21/2025 01/22/2024 [...] Visit Diagnoses Diagnosis Coronary artery disease involving [place] coronary artery of [place] heart without angina pectoris Stage 3a chronic kidney disease Gastroesophageal reflux disease without esophagitis Esophageal reflux Dementia (HCC) Dementia, unspecified, without behavioral disturbance documented in this encounter Advance Directives Documents on File Type Date Recorded Patient Business Office Associate Expl 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 Care Teams Custom Framing Specialist Relationship Specialty Start Date End Date Charles Mayer DO [address] [place] [address] PCP - General Family Medicine 05/26/23 documented as of this encounter
[2024-03-13 13:50] LABS: A calco-baum cmplx NotReported Not Detected (NotDetected); Bact fragilis Not Reported Not Detected (NotDetected); Blood Culture Id Panel PCR Panel Negative (NotDetected); C auris Not Reported Not Detected (NotDetected); Calbicans Not Reported Not Detected (NotDetected); Candida glabrata Not Reported Not Detected (NotDetected); Candida krusei Not Reported Not Detected (NotDetected); Cneoformans/gatti Not Reported Not Detected (NotDetected); Cparapsilosis Not Reported Not Detected (NotDetected); E cloacae compx Not Reported Not Detected (NotDetected); Efaecalis Not Reported Not Detected (NotDetected); Efaecium Not Reported Not Detected (NotDetected); Enterobacterales Not Reported Not Detected (NotDetected); Escherichia coli Not Reported Not Detected (NotDetected); H influenzae Not Reported Not Detected (NotDetected); K aerogenes Not Reported Not Detected (NotDetected); Koxytoca Not Reported Not Detected (NotDetected); Kpneumoniae grp Not Reported Not Detected (NotDetected); Lmonocyt Not Reported Not Detected (NotDetected); N meningitidis Not Reported Not Detected (NotDetected); P aeruginosa Not Reported Not Detected (NotDetected); Proteus spp Not Reported Not Detected (NotDetected); Salmonella spp Not Reported Not Detected (NotDetected); Staph lugdunensis Not Reported Not Detected (NotDetected); Staph spp. Not Reported Not Detected (NotDetected); Staphaureus Not Reported Not Detected (NotDetected); Staphepi Not Reported Not Detected (NotDetected); Stenmaltophilia Not Reported Not Detected (NotDetected); Strep agal(GrpB) Not Reported Not Detected (NotDetected); Strep pneum Not Reported Not Detected (NotDetected); Strep pyog (GrpA) Not Reported Not Detected (NotDetected); Strep spp Not Reported Not Detected (NotDetected)
[2024-04-04] MEDS ORDERED: CYANOCOBALAMIN 1000 MCG/ML VIAL IM SCH (09:00)
== END 2024-03-09 14:00 | disposition home or self-care (01) ==
LOC: 2N 22:50 → ED 22:50 → SUATTDRO 03-09 03:59 → 2N 03-09 05:02

== ENCOUNTER 2024-03-25 23:34 | Inpatient (IN) ==
[2024-03-26 00:29] LABS: Basophils # (auto) 0.01 K/uL (0.00-0.20); Basophils % (auto) 0.1 %; Hematocrit (blood only) 37.8 % (42.0-52.0); Hemoglobin 12.5 g/dl (14.0-18.0); Immature Granulocytes # (auto) 0.04 K/uL (0.01-0.20); Immature Granulocytes % (auto) 0.3 %; Lymphocytes # (auto) 0.56 K/uL (1.20-3.40); Lymphocytes % (auto) 4.8 %; Mean Corpuscular Hemoglobin 29.3 pg (25.0-34.0); Mean Corpuscular Hgb Conc 33.1 g/dL (32.0-36.0); Mean Corpuscular Volume 88.7 fL (80.0-100.0); Mean Platelet Volume 9.8 fL (9.4-12.4); Monocytes # (auto) 0.99 K/uL (0.11-0.59); Monocytes % (auto) 8.4 %; Neutrophils # (auto) 10.17 K/uL (1.40-6.50); Neutrophils % (auto) 86.4 %; Platelet Count 196 K/uL (130-400); RDW Coefficient of Variation 14.9 % (11.5-14.5); RDW Standard Deviation 48.2 fL (36.4-46.3); Red Blood Count 4.26 M/uL (4.70-6.10); White Blood Count 11.77 K/ul (4.8-10.8)
[2024-03-26 00:41] LABS: Amorphous Sediment Urine Present (None Prsent); Appearance Urine Turbid (Clear); Bacteria Urine Automated 4+ (None Seen); Bilirubin Urine Negative (Negative); Blood Urine Negative (Negative); Cast Urine Automated >20 /lpf (0-2); Color Urine Dark Yellow; Glucose Urine UA Negative (Negative); Ketones Urine Trace (Negative); Leukocyte Esterase Urine 3+ (Negative); Nitrite Urine Positive (Negative); Protein Urine 1+ (Negative); Specific Gravity Urine 1.023 (1.000-1.030); Triple Phosphate Crystal Urine Present (None Prsent); Urobilinogen Urine Negative (Negative); WBC Urine Automated >50 /hpf (0-5); pH Urine 8.5 (4.5-7.5)
[2024-03-26 00:48] LABS: Albumin Level 3.9 gm/dl (3.4-5.0); BUN Creatinine Ratio 13.8 (10-20); Bilirubin Direct 0.4 mg/dl (0-0.2); Bilirubin,Total 1.4 mg/dl (0.2-1.0); Calcium 8.9 mg/dl (8.6-10.3); Magnesium 1.4 mg/dl (1.7-2.4); Potassium 3.2 mmol/L (3.5-5.1); Total Protein 6.5 gm/dl (6.0-8.3)
[2024-03-26 00:54] LABS: Troponin I High Sensitivity 10.5 pg/ml (0-20)
[2024-03-26] MEDS: ACETAMINOPHEN 500 MG TAB PO STA (01:02)
[2024-03-26] MEDS: cefTRIAXone SODIUM 2,000 MG/50 ML BAG IV STA (01:03)
[2024-03-26] MEDS: POTASSIUM CHLORIDE / WTR 10 MEQ/100 ML PLCT IV ONE (01:11)
[2024-03-26] MEDS: MAGNESIUM SULFATE / D5W 1 GM/100 ML BAG IV STA (01:12)
[2024-03-26 01:16] LABS: Adenovirus PCR Not Detected (NotDetected); Bordetella parapertussis PCR Not Detected (NotDetected); Bordetella pertussis PCR Not Detected (NotDetected); Chlamydia pneumoniae PCR Not Detected (NotDetected); Coronavirus 229E PCR Not Detected (NotDetected); Coronavirus CoV-2 (COVID19)PCR Not Detected (NotDetected); Coronavirus HKU1 PCR Not Detected (NotDetected); Coronavirus NL63 PCR Not Detected (NotDetected); Coronavirus OC43PCR Not Detected (NotDetected); Human Metapneumovirus PCR Not Detected (NotDetected); Influenza A PCR Not Detected (NotDetected); Influenza B PCR Not Detected (NotDetected); Mycoplasma pneumoniae PCR Not Detected (NotDetected); Parainfluenza Virus 1 PCR Not Detected (NotDetected); Parainfluenza Virus 2 PCR Not Detected (NotDetected); Parainfluenza Virus 3 PCR Not Detected (NotDetected); Parainfluenza Virus 4 PCR Not Detected (NotDetected); Respiratory Syncytial VirusPCR Not Detected (NotDetected); Rhinovirus/Enterovirus PCR Not Detected (NotDetected)
--- NOTE | 2024-03-26 01:25 | XRay Report ---
EXAM: XR chest 1V portable CLINICAL HISTORY: SEPSIS F TECHNIQUE: Radiograph of chest was acquired. COMPARISON: Prior radiograph dated February,. FINDINGS: The lungs are clear and well-expanded with no pulmonary infiltrate or pleural effusion. The cardiomediastinal silhouette is within normal limits. No acute osseous abnormality. IMPRESSION: 1. No acute cardiopulmonary disease. Electronically signed by Farooq Dougherty 03-26-2024 01:25 AM
[2024-03-26] MEDS: SODIUM CHLORIDE 0.9% 1,000 ML IV SCH ×2 (01:45→05:56)
[2024-03-26] MEDS: SODIUM CHLORIDE 0.9% 500 ML IV ONE (02:14)
[2024-03-26] MEDS ORDERED: ACETAMINOPHEN 325 MG TAB PO PRN (04:58)
[2024-03-26] MEDS ORDERED: NITROGLYCERIN SL 0.4 MG/TAB TAB SL PRN (04:58)
[2024-03-26] MEDS ORDERED: POLYETHYLENE (MIRALAX) 17 GM PACK PO PRN (04:58)
--- NOTE | 2024-03-26 05:00 | Emergency Department Note ---
Impression & Plan Sepsis, Acute UTI, Hypokalemia, Hypomagnesemia admit to the [facility] ED Provider Note NAME: CHRISTIAN ROE AGE: 58 SEX: Male INFORMANT: Patient ED PROVIDER(S): Claire Castaneda DO CHIEF COMPLAINT: Altered mental status PLAN: Disposition: admit to the [facility] MEDICAL DECISION MAKING: This is a 58-year-old male patient with dementia and a chronic indwelling Newman catheter who was at [facility] when he began to feel unwell. His explains that he was shaking and confused and had an episode of unresponsiveness in the car. She explains that they were at the urologist office when she voiced some concerns about his urine. She notes that he has not been well for the past 2 days. He has been weak and has had decreased appetite. They had tried to collect a urine over the past 2 days but it has been contaminated. Patient had a fever for EMS. Laboratory studies revealed a white blood cell count of 11.7. Lactate was 1.1. Procalcitonin was 2.14. The patient was hypokalemic and hypomagnesemic. H&H were stable. BUN and creatinine were normal. Patient's urine appeared to be infected and he was treated for sepsis. He was treated with Tylenol, IV magnesium, IV potassium, IV Rocephin, and a total IV normal saline replacement of 2500 mL. His 30 mL/kg requirement for actual body weight would be 2346 mL. I discussed the case with the [facility] service and they will evaluate for further inpatient care. The patient remained hemodynamically stable while in the emergency department. I kept his abreast of the situation. Care/management discussed with: manager of global and [facility] Triage Nursing notes: reviewed and agree with them. Vital Signs: reviewed and remarkable for fever Additional History obtained from: The patient's who is at the bedside Chronic Medical/Social Conditions affecting care: Dementia; chronic indwelling Newman catheter Prior/ Outside/ External records reviewed: Previous admission to the hospital; previous urinalysis and culture and sensitivities Differential Diagnosis: Sepsis, septic shock, UTI, pneumonia, COVID, dehydration, BLANCO, hypoglycemia Diagnostics, independently interpreted by me: ECG: sinus tachycardia at a rate of 102 with a right bundle branch block. There is no ST segment elevation or signs of ischemia. There is no ectopy. Cardiac Monitoring: Normal sinus rhythm at a rate of 80 Imaging studies: Portable chest x-ray: No acute pulmonary infiltrates or opacities per my interpretation HPI: 58 year old Male arrives for evaluation of altered mental status and shaking. Patient was at [facility] when he began to feel unwell and had an episode of altered mental status and shaking according to the patient's . The patient has a history of dementia with an indwelling Newman catheter. The was concerned he may be developing a urinary tract infection.. PAST MEDICAL HISTORY: See Below, PAST SURGICAL HISTORY: See Below, SOCIAL HISTORY: See Below, HOME MEDICATIONS: See list ALLERGIES: See list VITALS: See Below PHYSICAL EXAMINATION: HEENT: Head - normocephalic and atraumatic. Pupils are equal, round, and reactive to light. Extraocular eye muscles are intact, and sclera are anicteric. Nose -dry nasal mucosa without discharge. Mouth -dry buccal mucosa. Oropharynx is nonerythematous and there is no tonsillar exudate or edema noted. Neck: Supple; no JVD, nuchal rigidity, cervical lymphadenopathy Heart: Regular rate and rhythm. There is a normal S1 and S2 with no murmurs, clicks, or gallops appreciated. Lungs: Clear to auscultation bilaterally with no wheezes, rales, or rhonchi. Abdomen: Soft, completely nontender, nondistended, with good bowel sounds. There are no palpable pulsatile masses or hepatosplenomegaly. There is no guarding, rigidity, or rebound noted. Extremities: No evidence of cyanosis, clubbing, or edema. There are easily palpable peripheral pulses. Skin: warm and dry with good turgor and no rashes. emergency department treatment: monitoring tech, IV ceftriaxone IV K rider, IV magnesium, oral Tylenol, IV normal saline bolus Emergency department course: The patient was evaluated in room B-9. A complete history and physical was performed A septic protocol was performed. Newman catheter was exchanged and a urine specimen was obtained. Blood cultures were obtained. A bio fire was obtained through nasal swab. A portable chest x-ray was performed. An order was placed for continuous cardiac monitoring. The patient was in a normal sinus rhythm at a rate of 80. A twelve-lead EKG was obtained. Patient was given a dose of Tylenol and bolused with IV normal saline solution. He was started on IV potassium and magnesium replacement. He was given a dose of IV Rocephin. I discussed the case with the [facility] Hospitalist and they will evaluate for further inpatient care. I have personally spent greater than 50 minutes of critical care time in the direct management of this patient. This includes bedside care, interpretation of diagnostic studies, and testing, discussion with consultants, patient, and family members, and other required patient management activities. This 50 minutes is in excess of all separately billable procedures. Past Med/Surg History Problem List (Updated 03/26/24 @ 05:00 by Claire Castaneda DO) Hypomagnesemia (Acute) Hypokalemia (Acute) Acute UTI (Acute) Sepsis (Acute) Discussion about advance care planning held with family member Palliative care by specialist Dementia with behavioral disturbance Weakness generalized CKD stage 3b, GFR 30-44 ml/min BPH (benign prostatic hyperplasia) Vascular dementia Urinary retention Chest pain (Acute) Encephalopathy Postlaminectomy syndrome of lumbosacral region Hyponatremia (Acute) Dementia (Acute) QT prolongation Delirium due to another medical condition, acute, hyperactive Agitation Alcohol abuse (Acute) AMS (altered mental status) (Acute) Major neurocognitive disorder as late effect of traumatic brain injury with behavioral disturbance Frequent falls (Acute) Altered mental status (Acute) Confusion Right ureteral stone Encounter for pre-operative examination Anemia (Acute) IRON DEFICIENT ANEMIA AND REC'D IV IRON 10/06. Baseline HGB since 2017 ~9 HLD (hyperlipidemia) Gout Back pain FROM ACCIDENT AND 7 DIFFERENT FX AND FUSION GERD (gastroesophageal reflux disease) (Acute) Anxiety History of renal stone (Acute) S/P cysto/litho/stent 10/07 History of diverticulitis of colon remote Medical History (Updated 03/26/24 @ 05:00 by Claire Castaneda DO) History of fracture of right ankle Hx of fracture of skull 7 FX AND HAS SOME PROBLEMS WITH MEMORY Gastric ulcer Hydronephrosis B/L per KUB 10/12/18 Surgical History S/P ureteral stent placement History of cystoscopy W/ LITHO/BASKET STONE EXTRACTION - 10/07/18 [facility]. LMA #5. History of surgery on left wrist History of arthroscopy of right shoulder Hx of right knee surgery S/P insertion of intrathecal pump FOLLOW WITH DR LAKIA PACKER FROM [place] History of back surgery UPPER BACK FUSION, 7 DIFFERENT FRACTURES AND MULTIPLE SURGERIES AND IS FUSED multiple revisions H/O inguinal hernia repair H/O lithotripsy S/P exploratory laparotomy (Unknown) 2010 RUPTURED DIVERTICULI S/P appendectomy (Unknown) S/P cholecystectomy (Unknown) S/P gastric bypass mike en y (2010) Family History Mother DM type 2 (diabetes mellitus, type 2) Father DM type 2 (diabetes mellitus, type 2) Social History Smoking Status: Never smoker Tobacco Type: Smokeless Tobacco (Dip or Chew) Second Hand Exposure: No; Do You Dip or Chew Tobacco: Yes; Hx Alcohol Use: No Hx Substance Use: No Preferred Language: Sinhala Communication Ability: Effective Communication Ability Comment: Unable to write per spouse & reading difficulty Visual Impairment: No Limitations Manager Audit Required: No Beliefs That Will Affect Care: None Current Living Situation: Spouse Current Living Situation Comment: lives with Feels Safe at Home: Yes Assistive Devices: None Allergies Allergies Allergy/AdvReac Type Severity Reaction Status Date / Time Penicillins Allergy Severe SEE COMMENT Verified 03/09/24 03:24 erythromycin base Allergy Intermediate Itching Verified 03/09/24 03:24 indomethacin Allergy Intermediate HIVES Verified 03/09/24 03:24 neomycin Allergy Intermediate BLISTERS Verified 03/09/24 03:24 vancomycin Allergy Intermediate ITCHING--ALL Verified 03/09/24 03:24 MYCIN DRUGS fentanyl AdvReac Severe "DID NOT Verified 03/09/24 03:24 TOLERATE"-patch- "went nuts" ibuprofen AdvReac Severe Ulcer Verified 03/09/24 03:24 history ketorolac AdvReac Mild NAUSEA Verified 03/09/24 03:24 aspirin AdvReac Unknown "BLEEDING" Verified 03/09/24 03:24 S/P GASTRIC BYPASS Home Meds Home Medications Medication Instructions Recorded Confirmed allopurinol 300 mg tablet 300 mg PO DAILY 03/26/24 03/26/24 atorvastatin 10 mg tablet 10 mg PO DAILY 03/26/24 03/26/24 cyclobenzaprine 10 mg tablet 10 mg PO BID 03/26/24 03/26/24 docusate sodium 100 mg capsule 200 mg PO BID 03/26/24 03/26/24 (Colace) famotidine 40 mg tablet 40 mg PO HS 03/26/24 03/26/24 loratadine 10 mg tablet 10 mg PO DAILY 03/26/24 03/26/24 lorazepam 1 mg tablet (Ativan) 1 mg PO TID PRN Anxiety 03/26/24 03/26/24 melatonin 10 mg tablet 10 mg PO HS PRN Insomnia 03/26/24 03/26/24 memantine 10 mg tablet 10 mg PO BID 03/26/24 03/26/24 mirtazapine 30 mg tablet 30 mg PO HS 03/26/24 03/26/24 morphine 15 mg tablet,extended 15 mg PO BID 03/26/24 03/26/24 release olanzapine 5 mg tablet 5 mg PO HS 03/26/24 03/26/24 pantoprazole 40 mg tablet,delayed 40 mg PO BID 03/26/24 03/26/24 release promethazine 12.5 mg tablet 12.5 mg PO TID PRN Nausea And 03/26/24 03/26/24 Vomiting tamsulosin 0.4 mg capsule 0.4 mg PO DAILY 03/26/24 03/26/24 Results & Data (ED) Vital Signs Vital Signs - 24 hr 03/25/24 23:39 03/25/24 23:42 03/25/24 23:45 Temperature 37.6 C H Temperature Source Oral Pulse Rate 102 H 98 H 102 H Pulse Rate from SpO2 Sensor 99 H Respiratory Rate 18 18 Respiratory Effort / Characteristics Non-Labored Spontaneous Respiratory Depth Normal Blood Pressure 124/89 124/89 Blood Pressure Mean 100 100 Pulse Oximetry 94 95 Oxygen Delivery Method Room Air Sepsis Recent Fever Within 48 Hours No Sepsis New/Unexplained Change in Mental Status No Sepsis Action Taken by Nursing No Action Required 03/26/24 00:03 03/26/24 00:36 03/26/24 01:09 Temperature Temperature Source Pulse Rate 93 H 93 H 88 Pulse Rate from SpO2 Sensor 93 H 94 H 88 Respiratory Rate 17 16 19 Respiratory Effort / Characteristics Respiratory Depth Blood Pressure 104/66 106/73 109/74 Blood Pressure Mean 78 84 85 Pulse Oximetry 97 95 96 Oxygen Delivery Method Sepsis Recent Fever Within 48 Hours Sepsis New/Unexplained Change in Mental Status Sepsis Action Taken by Nursing 03/26/24 01:39 03/26/24 02:00 03/26/24 03:06 Temperature Temperature Source Pulse Rate 87 83 75 Pulse Rate from SpO2 Sensor 88 83 77 Respiratory Rate 18 15 15 Respiratory Effort / Characteristics Respiratory Depth Blood Pressure 98/68 L 94/62 L 115/72 Blood Pressure Mean 78 72 86 Pulse Oximetry 96 96 98 Oxygen Delivery Method Sepsis Recent Fever Within 48 Hours Sepsis New/Unexplained Change in Mental Status Sepsis Action Taken by Nursing 03/26/24 03:54 03/26/24 04:06 Temperature Temperature Source Pulse Rate 73 73 Pulse Rate from SpO2 Sensor 74 Respiratory Rate 13 Respiratory Effort / Characteristics Respiratory Depth Blood Pressure 103/67 Blood Pressure Mean 79 Pulse Oximetry 99 Oxygen Delivery Method Sepsis Recent Fever Within 48 Hours Sepsis New/Unexplained Change in Mental Status Sepsis Action Taken by Nursing Laboratory Data 03/26/24 07:49 03/26/24 07:49 Lab Results 03/26/24 03/26/24 03/26/24 Range/Units 00:02 00:07 00:14 WBC 11.77 H (4.8-10.8) K/ul RBC 4.26 L (4.70-6.10) M/uL Hgb 12.5 L (14.0-18.0) g/dl Hct 37.8 L (42.0-52.0) % MCV 88.7 (80.0-100.0) fL MCH 29.3 (25.0-34.0) pg MCHC 33.1 (32.0-36.0) g/dL RDW Std Deviation 48.2 H (36.4-46.3) fL RDW Coeff of Rogerio 14.9 H (11.5-14.5) % Plt Count 196 (130-400) K/uL MPV 9.8 (9.4-12.4) fL Immature Gran % (Auto) 0.3 % Neut % (Auto) 86.4 % Lymph % (Auto) 4.8 % Caswell % (Auto) 8.4 % Eos % (Auto) 0.0 % Baso % (Auto) 0.1 % Neut # (Auto) 10.17 H (1.40-6.50) K/uL Lymph # (Auto) 0.56 L (1.20-3.40) K/uL [place]well # (Auto) 0.99 H (0.11-0.59) K/uL Eos # (Auto) 0.00 (0.00-0.50) K/uL Baso # (Auto) 0.01 (0.00-0.20) K/uL Immature Gran # (Auto) 0.04 (0.01-0.20) K/uL Sodium 139 (136-145) mmol/L Potassium 3.2 L (3.5-5.1) mmol/L Chloride 103 (98-107) mmol/L Carbon Dioxide 26 (21-32) mmol/L Anion Gap 10 (3-11) BUN 19 (6-23) mg/dl Creatinine 1.38 (0.6-1.4) mg/dl Est Cr Clr Drug Dosing 63.0 ml/min eGFR 58.54 BUN/Creatinine Ratio 13.8 (10-20) Glucose 112 H (70-99(Fasting)) mg/dl Lactate 1.1 (0.4-2.0) mmol/L Calcium 8.9 (8.6-10.3) mg/dl Magnesium 1.4 L (1.7-2.4) mg/dl Total Bilirubin 1.4 H (0.2-1.0) mg/dl Direct Bilirubin 0.4 H (0-0.2) mg/dl AST 17 (13-39) U/L ALT 11 (7-52) U/L Alkaline Phosphatase 128 H (34-104) U/L Troponin I High Sens 10.5 (0-20) pg/ml Total Protein 6.5 (6.0-8.3) gm/dl Albumin 3.9 (3.4-5.0) gm/dl Procalcitonin 2.14 H (0-0.5) ng/ml Urine Color Dark Yellow Urine Appearance Turbid A (Clear) Urine pH 8.5 H (4.5-7.5) Ur Specific [place] 1.023 (1.000-1.030) Urine Protein 1+ H (Negative) Urine Glucose (UA) Negative (Negative) Urine Ketones Trace H (Negative) Urine Blood Negative (Negative) Urine Nitrite Positive A (Negative) Urine Bilirubin Negative (Negative) Urine Urobilinogen Negative (Negative) Ur Leukocyte Esterase 3+ H (Negative) Urine WBC (Auto) >50 H (0-5) /hpf Urine RBC (Auto) 3-5 H (0-2) /hpf U Hyaline Cast (Auto) >20 H (0-2) /lpf U Epithel Cells (Auto) 6-10 H (0-2) /hpf Urine Bacteria (Auto) 4+ H (None Seen) Triple Phos Crystals Present A (None Prsent) Amorphous Sediment Present A (None Prsent) Adenovirus (PCR) Not Detected (NotDetected) B. pertussis DNA (PCR) Not Detected (NotDetected) B.parapertussis DNA PCR Not Detected (NotDetected) C. pneumoniae DNA (PCR) Not Detected (NotDetected) Coronavirus OC43 (PCR) Not Detected (NotDetected) Coronavirus HKU1 (PCR) Not Detected (NotDetected) Coronavirus 229E (PCR) Not Detected (NotDetected) SARS-CoV-2 (PCR) Not Detected (NotDetected) Coronavirus NL63 (PCR) Not Detected (NotDetected) Human Metapneumovir PCR Not Detected (NotDetected) Influenza Type A (PCR) Not Detected (NotDetected) Influenza Type B (PCR) Not Detected (NotDetected) M. pneumoniae (PCR) Not Detected (NotDetected) Parainfluenza 1 (PCR) Not Detected (NotDetected) Parainfluenza 2 (PCR) Not Detected (NotDetected) Parainfluenza 3 (PCR) Not Detected (NotDetected) Parainfluenza 4 (PCR) Not Detected (NotDetected) RSV (PCR) Not Detected (NotDetected) Entero/Rhino (PCR) Not Detected (NotDetected) P. aeruginosa (PCR) (NotDetected) blaIMP Car res Gene PCR (NotDetected) KPC-Carbap Res Gene PCR (NotDetected) blaNDM Car Res Gene PCR (NotDetected) blaVIM Car Res Gene PCR (NotDetected) CTX-M Gene Resistance (PCR) (NotDetected) Bld Cult ID Panel PCR (NotDetected) 03/26/24 Range/Units 01:01 WBC (4.8-10.8) K/ul RBC (4.70-6.10) M/uL Hgb (14.0-18.0) g/dl Hct (42.0-52.0) % MCV (80.0-100.0) fL MCH (25.0-34.0) pg MCHC (32.0-36.0) g/dL RDW Std Deviation (36.4-46.3) fL RDW Coeff of Rogerio (11.5-14.5) % Plt Count (130-400) K/uL MPV (9.4-12.4) fL Immature Gran % (Auto) % Neut % (Auto) % Lymph % (Auto) % [place] % (Auto) % Eos % (Auto) % Baso % (Auto) % Neut # (Auto) (1.40-6.50) K/uL Lymph # (Auto) (1.20-3.40) K/uL [place] # (Auto) (0.11-0.59) K/uL Eos # (Auto) (0.00-0.50) K/uL Baso # (Auto) (0.00-0.20) K/uL Immature Gran # (Auto) (0.01-0.20) K/uL Sodium (136-145) mmol/L Potassium (3.5-5.1) mmol/L Chloride (98-107) mmol/L Carbon Dioxide (21-32) mmol/L Anion Gap (3-11) BUN (6-23) mg/dl Creatinine (0.6-1.4) mg/dl Est Cr Clr Drug Dosing ml/min eGFR BUN/Creatinine Ratio (10-20) Glucose (70-99(Fasting)) mg/dl Lactate (0.4-2.0) mmol/L Calcium (8.6-10.3) mg/dl Magnesium (1.7-2.4) mg/dl Total Bilirubin (0.2-1.0) mg/dl Direct Bilirubin (0-0.2) mg/dl AST (13-39) U/L ALT (7-52) U/L Alkaline Phosphatase (34-104) U/L Troponin I High Sens (0-20) pg/ml Total Protein (6.0-8.3) gm/dl Albumin (3.4-5.0) gm/dl Procalcitonin (0-0.5) ng/ml Urine Color Urine Appearance (Clear) Urine pH (4.5-7.5) Ur Specific [place] (1.000-1.030) Urine Protein (Negative) Urine Glucose (UA) (Negative) Urine Ketones (Negative) Urine Blood (Negative) Urine Nitrite (Negative) Urine Bilirubin (Negative) Urine Urobilinogen (Negative) Ur Leukocyte Esterase (Negative) Urine WBC (Auto) (0-5) /hpf Urine RBC (Auto) (0-2) /hpf U Hyaline Cast (Auto) (0-2) /lpf U Epithel Cells (Auto) (0-2) /hpf Urine Bacteria (Auto) (None Seen) Triple Phos Crystals (None Prsent) Amorphous Sediment (None Prsent) Adenovirus (PCR) (NotDetected) B. pertussis DNA (PCR) (NotDetected) B.parapertussis DNA PCR (NotDetected) C. pneumoniae DNA (PCR) (NotDetected) Coronavirus OC43 (PCR) (NotDetected) Coronavirus HKU1 (PCR) (NotDetected) Coronavirus 229E (PCR) (NotDetected) SARS-CoV-2 (PCR) (NotDetected) Coronavirus NL63 (PCR) (NotDetected) Human Metapneumovir PCR (NotDetected) Influenza Type A (PCR) (NotDetected) Influenza Type B (PCR) (NotDetected) M. pneumoniae (PCR) (NotDetected) Parainfluenza 1 (PCR) (NotDetected) Parainfluenza 2 (PCR) (NotDetected) Parainfluenza 3 (PCR) (NotDetected) Parainfluenza 4 (PCR) (NotDetected) RSV (PCR) (NotDetected) Entero/Rhino (PCR) (NotDetected) P. aeruginosa (PCR) DETECTED A (NotDetected) blaIMP Car res Gene PCR Not Detected (NotDetected) KPC-Carbap Res Gene PCR Not Detected (NotDetected) blaNDM Car Res Gene PCR Not Detected (NotDetected) blaVIM Car Res Gene PCR Not Detected (NotDetected) CTX-M Gene Resistance (PCR) Not Detected (NotDetected) Bld Cult ID Panel PCR See PCR Comment (NotDetected) Administered Medications Allopurinol (Allopurinol 300 Mg Tab) 300 mg PO DAILY CARL Stop: 04/25/24 08:59 Last Admin: 03/26/24 08:59 Dose: 300 mg Documented By: EMELINA Atorvastatin Calcium (Atorvastatin 10 Mg Tab) 10 mg PO DAILY CARL Stop: 04/25/24 08:59 Last Admin: 03/26/24 08:59 Dose: 10 mg Documented By: EMELINA Cyclobenzaprine HCl (Cyclobenzaprine Hcl 10 Mg Tab) 10 mg PO BID CARL Stop: 04/25/24 08:59 Last Admin: 03/26/24 22:06 Dose: 10 mg Documented By: [id number] Admin: 03/26/24 08:59 Dose: 10 mg Documented By: EMELINA Docusate Sodium (Docusate Sodium 100 Mg Cap) 200 mg PO BID CARL Stop: 04/25/24 08:59 Last Admin: 03/26/24 22:09 Dose: 200 mg Documented By: [id number] Admin: 03/26/24 08:58 Dose: 200 mg Documented By: EMELINA Famotidine (Famotidine 40 Mg Tablet) 40 mg PO HS [facility] Stop: 04/25/24 20:59 Last Admin: 03/26/24 22:05 Dose: 40 mg Documented By: [id number] Cefepime HCl (Maxipime 2000mg) 2,000 mg in 20 mls @ 5 mls/min IV Q8H [facility]; Protocol Stop: 04/05/24 22:59 Last Admin: 03/27/24 06:37 Dose: 5 mls/min Documented By: [id number] Admin: 03/26/24 23:42 Dose: 5 mls/min Documented By: [id number] Loratadine (Loratadine 10 Mg Tab) 10 mg PO DAILY CARL Stop: 04/25/24 08:59 Last Admin: 03/26/24 08:59 Dose: 10 mg Documented By: EMELINA Memantine (Memantine Hcl 10 Mg Tab) 10 mg PO BID CARL Stop: 04/25/24 08:59 Last Admin: 03/26/24 22:06 Dose: 10 mg Documented By: [id number] Admin: 03/26/24 08:59 Dose: 10 mg Documented By: EMELINA Mirtazapine (Mirtazapine Tab 15 Mg Tab) 30 mg PO [facility] Stop: 04/25/24 20:59 Last Admin: 03/26/24 22:06 Dose: 30 mg Documented By: [id number] Olanzapine (Olanzapine 5 Mg Tablet) 5 mg PO HS CARL Stop: 04/25/24 20:59 Last Admin: 03/26/24 22:07 Dose: 5 mg Documented By: [id number] Pantoprazole Sodium (Pantoprazole 40 Mg Tab) 40 mg PO BID CARL Stop: 04/25/24 08:59 Last Admin: 03/26/24 22:07 Dose: 40 mg Documented By: [id number] Admin: 03/26/24 08:59 Dose: 40 mg Documented By: EMELINA Tamsulosin HCl (Tamsulosin Hcl 0.4 Mg Cap) 0.4 mg PO DAILY CARL Stop: 04/25/24 08:59 Last Admin: 03/26/24 08:59 Dose: 0.4 mg Documented By: EMELINA Discontinued Medications Acetaminophen (Acetaminophen 500 Mg Tab) 1,000 mg PO NOW STA Stop: 03/26/24 00:49 Last Admin: 03/26/24 01:02 Dose: 1,000 mg Documented By: Magnesium Sulfate/Dextrose (Magnesium Sulfate / D5w) 1 gm in 100 mls @ 100 mls/hr IV NOW STA Stop: 03/26/24 01:50 Last Infusion: 03/26/24 02:15 Dose: Infused Documented By: Admin: 03/26/24 01:12 Dose: 100 mls/hr Documented By: Potassium Chloride (K Roscoe / Wtr) 10 meq in 100 mls @ 100 mls/hr IV ONE ONE Stop: 03/26/24 01:49 Last Infusion: 03/26/24 02:15 Dose: Infused Documented By: Admin: 03/26/24 01:11 Dose: 100 mls/hr Documented By: Ceftriaxone Sodium (Rocephin) 2,000 mg in 50 mls @ 100 mls/hr IV NOW STA Stop: 03/26/24 01:24 Last Infusion: 03/26/24 01:48 Dose: Infused Documented By: Admin: 03/26/24 01:03 Dose: 100 mls/hr Documented By: Sodium Chloride (Nss) 500 mls @ 999 mls/hr IV .Q31M ONE Stop: 03/26/24 01:42 Last Infusion: 03/26/24 03:56 Dose: Infused Documented By: Admin: 03/26/24 02:14 Dose: 999 mls/hr Documented By: JOEY Sodium Chloride (Nss) 1,000 mls @ 999 mls/hr IV .Q1H1M CARL Stop: 03/26/24 03:15 Last Infusion: 03/26/24 03:56 Dose: Infused Documented By: Admin: 03/26/24 02:13 Dose: 999 mls/hr Documented By: Infusion: 03/26/24 01:45 Dose: Infused Documented By: Admin: 03/26/24 01:45 Dose: 999 mls/hr Documented By: JOEY Sodium Chloride (Nss) 1,000 mls @ 100 mls/hr IV .Q10H CARL Stop: 03/27/24 00:57 Last Infusion: 03/27/24 04:35 Dose: Infused Documented By: [id number] Admin: 03/26/24 15:31 Dose: 100 mls/hr Documented By: Infusion: 03/26/24 15:31 Dose: Infused Documented By: Infusion: 03/26/24 12:27 Dose: 100 mls/hr Documented By: Admin: 03/26/24 05:56 Dose: 100 mls/hr Documented By: [email or web address] Ceftriaxone Sodium (Rocephin) 2,000 mg in 50 mls @ 100 mls/hr IV Q24H CARL Stop: 04/05/24 22:29 Last Admin: 03/26/24 23:29 Dose: Not Given Documented By: [id number] Magnesium Sulfate/Dextrose (Magnesium Sulfate / D5w) 1 gm in 100 mls @ 50 mls/hr IV ONE ONE Stop: 03/26/24 10:44 Last Infusion: 03/26/24 11:15 Dose: Infused Documented By: Admin: 03/26/24 08:57 Dose: 50 mls/hr Documented By: EMELINA Potassium Chloride (Potassium Chloride 20 Meq/15 Ml Udc) 40 meq PO NOW STA Stop: 03/26/24 05:51 Last Admin: 03/26/24 06:38 Dose: 40 meq Documented By: [email or web address] Imaging Data Radiologist's Impression: Chest X-Ray 03/25/24 23:59 EXAM: XR chest 1V portable CLINICAL HISTORY: SEPSIS JMF TECHNIQUE: Radiograph of chest was acquired. COMPARISON: Prior radiograph dated February,. FINDINGS: The lungs are clear and well-expanded with no pulmonary infiltrate or pleural effusion. The cardiomediastinal silhouette is within normal limits. No acute osseous abnormality. IMPRESSION: 1. No acute cardiopulmonary disease. Electronically signed by Farooq Dougherty 03-26-2024 01:25 AM Discharge Plan Visit Data Chief Complaint: Altered Mental Status Stated Complaint: AMS ED Provider: Claire Castaneda Discharge Problem: Sepsis, Acute UTI, Hypokalemia, Hypomagnesemia Patient Disposition: Admitted As Inpatient Discharge Instructions Interventions: ED Discharge Assessment Last Done: 03/26/24 04:58
--- NOTE | 2024-03-26 05:39 | History & Physical Report ---
Date of Service March 26, 2024 Assessment & Plan (1) Encephalopathy: Plan: 58-year-old male with past medical history significant for gout, dementia, history of traumatic brain injury, history of CAD, history of right upper lobe pulmonary nodule, GERD, status post gastric bypass, history of diverticulitis, CKD stage III, iron deficiency anemia, spinal fusion surgery, history of skull fracture, history of kidney stones who lives at home with his was brought in because of confusion. Patient was recently in the hospital for confusion and BLANCO and urinary retention and was status post Newman catheter. As per last couple of days patient was not feeling well. His appetite has been down and feeling nauseous and urine was smelling foul. Saw urology yesterday and as per urology advised to continue Newman until May and as patient is getting sick plan was to get urine cultures. After going home when he started to play bingo patient became very shaky more confused and seemed somewhat unresponsive with just staring and was having chills and was brought in here. Currently patient is more awake and alert and able to answer questions. In the ER he spiked temperature and blood pressure was soft. Currently denies any headache. Vision is okay. No runny nose or sore throat. No cough. Denies chest pain or shortness of breath. Denies nausea currently. No abdominal pain. Moving bowels okay.As per his he usually ambulates with support at home but today was very weak to ambulate. Altered mental status Encephalopathy Possible early sepsis with fever, leukocytosis and soft blood pressures UA is positive, Elevated procalcitonin Mild elevated total bilirubin-will follow need to change Newman after antibiotics In ER received Rocephin which will be continued IV fluids Will follow the cultures Will closely monitor hemodynamics Urinary retention On Newman On Flomax Follow-up with urology History of dementia History of traumatic brain injury On memantine Monitor for delirium Hyperlipidemia On statin GERD History of GI bleed On famotidine and Protonix History of gout On allopurinol Chronic anemia History of gastric bypass On vitamin B12 shots History of nonobstructive CAD On statin CKD stage III Present creatinine 1.3 Will follow labs Chronic pain Spinal fusion Currently on morphine ER 15 mg twice daily, will hold until patient is more awake DVT prophylaxis Heparin subcu Disposition Telemetry Full code. History of Present Illness Chief Complaint: Altered mental status Primary Care Provider: Charles Mayer, DO 58-year-old male with past medical history significant for gout, dementia, history of traumatic brain injury, history of CAD, history of right upper lobe pulmonary nodule, GERD, status post gastric bypass, history of diverticulitis, CKD stage III, iron deficiency anemia, spinal fusion surgery, history of skull fracture, history of kidney stones who lives at home with his was brought in because of confusion. Patient was recently in the hospital for confusion and BLANCO and urinary retention and was status post Newman catheter. As per last couple of days patient was not feeling well. His appetite has been down and feeling nauseous and urine was smelling foul. Saw urology yesterday and as per urology advised to continue Newman until May and as patient is getting sick plan was to get urine cultures. After going home when he started to play bingo patient became very shaky more confused and seemed somewhat unresponsive with just staring and was having chills and was brought in here. Currently patient is more awake and alert and able to answer questions. In the ER he spiked temperature and blood pressure was soft. Currently denies any headache. Vision is okay. No runny nose or sore throat. No cough. Denies chest pain or shortness of breath. Denies nausea currently. No abdominal pain. Moving bowels okay.As per his he usually ambulates with support at home but today was very weak to ambulate. Past med history. As mentioned above Past surgical history. Amputation of left second finger. Colonoscopy. EGD. Exploratory laparotomy. ESWL. Laparoscopic gastric bypass Geronimo-[place]. Diagnostic laparoscopy. Laparoscopic cholecystectomy. Appendectomy. Repair of inguinal hernia left side. Repair of knee ligament. Spinal fusion surgery. Upper GI endoscopy. Social history. . No smoking. Alcohol occasional. No drug use. Family history. Father had diabetes. Hypertension. Mother had diabetes. Hypertension. Allergies Allergy/AdvReac Type Severity Reaction Status Date / Time Penicillins Allergy Severe SEE COMMENT Verified 03/09/24 03:24 erythromycin base Allergy Intermediate Itching Verified 03/09/24 03:24 indomethacin Allergy Intermediate HIVES Verified 03/09/24 03:24 neomycin Allergy Intermediate BLISTERS Verified 03/09/24 03:24 vancomycin Allergy Intermediate ITCHING--ALL Verified 03/09/24 03:24 MYCIN DRUGS fentanyl AdvReac Severe "DID NOT Verified 03/09/24 03:24 TOLERATE"-patch- "went nuts" ibuprofen AdvReac Severe Ulcer Verified 03/09/24 03:24 history ketorolac AdvReac Mild NAUSEA Verified 03/09/24 03:24 aspirin AdvReac Unknown "BLEEDING" Verified 03/09/24 03:24 S/P GASTRIC BYPASS Home Medications Medication Instructions Recorded Confirmed Type allopurinol 300 mg tablet 300 mg PO DAILY 03/26/24 03/26/24 History atorvastatin 10 mg tablet 10 mg PO DAILY 03/26/24 03/26/24 History cyclobenzaprine 10 mg tablet 10 mg PO BID 03/26/24 03/26/24 History docusate sodium 100 mg capsule 200 mg PO BID 03/26/24 03/26/24 History (Colace) famotidine 40 mg tablet 40 mg PO HS 03/26/24 03/26/24 History loratadine 10 mg tablet 10 mg PO DAILY 03/26/24 03/26/24 History lorazepam 1 mg tablet (Ativan) 1 mg PO TID PRN Anxiety 03/26/24 03/26/24 History melatonin 10 mg tablet 10 mg PO HS PRN Insomnia 03/26/24 03/26/24 History memantine 10 mg tablet 10 mg PO BID 03/26/24 03/26/24 History mirtazapine 30 mg tablet 30 mg PO HS 03/26/24 03/26/24 History morphine 15 mg tablet,extended 15 mg PO BID 03/26/24 03/26/24 History release olanzapine 5 mg tablet 5 mg PO HS 03/26/24 03/26/24 History pantoprazole 40 mg tablet,delayed 40 mg PO BID 03/26/24 03/26/24 History release promethazine 12.5 mg tablet 12.5 mg PO TID PRN Nausea And 03/26/24 03/26/24 History Vomiting tamsulosin 0.4 mg capsule 0.4 mg PO DAILY 03/26/24 03/26/24 History Past Med/Surg History Problem List (Updated 03/26/24 @ 05:00 by Claire Castaneda DO) Hypomagnesemia (Acute) Hypokalemia (Acute) Acute UTI (Acute) Sepsis (Acute) Discussion about advance care planning held with family member Palliative care by specialist Dementia with behavioral disturbance Weakness generalized CKD stage 3b, GFR 30-44 ml/min BPH (benign prostatic hyperplasia) Vascular dementia Urinary retention Chest pain (Acute) Encephalopathy Postlaminectomy syndrome of lumbosacral region Hyponatremia (Acute) Dementia (Acute) QT prolongation Delirium due to another medical condition, acute, hyperactive Agitation Alcohol abuse (Acute) AMS (altered mental status) (Acute) Major neurocognitive disorder as late effect of traumatic brain injury with behavioral disturbance Frequent falls (Acute) Altered mental status (Acute) Confusion Right ureteral stone Encounter for pre-operative examination Anemia (Acute) IRON DEFICIENT ANEMIA AND REC'D IV IRON 10/06. Baseline HGB since 2017 ~9 HLD (hyperlipidemia) Gout Back pain FROM ACCIDENT AND 7 DIFFERENT FX AND FUSION GERD (gastroesophageal reflux disease) (Acute) Anxiety History of renal stone (Acute) S/P cysto/litho/stent 10/07 History of diverticulitis of colon remote Medical History (Updated 03/26/24 @ 05:00 by Claire Castaneda DO) History of fracture of right ankle Hx of fracture of skull 7 FX AND HAS SOME PROBLEMS WITH MEMORY Gastric ulcer Hydronephrosis B/L per [facility] 10/12/18 Surgical History S/P ureteral stent placement History of cystoscopy W/ LITHO/BASKET STONE EXTRACTION - 10/07/18 [facility]. LMA #5. History of surgery on left wrist History of arthroscopy of right shoulder Hx of right knee surgery S/P insertion of intrathecal pump FOLLOW WITH DR LAKIA PACKER FROM [place] History of back surgery UPPER BACK FUSION, 7 DIFFERENT FRACTURES AND MULTIPLE SURGERIES AND IS FUSED multiple revisions H/O inguinal hernia repair H/O lithotripsy S/P exploratory laparotomy (Unknown) 2010 RUPTURED DIVERTICULI S/P appendectomy (Unknown) S/P cholecystectomy (Unknown) S/P gastric bypass geronimo en y (2010) Family History Mother DM type 2 (diabetes mellitus, type 2) Father DM type 2 (diabetes mellitus, type 2) Social History Smoking Status: Never smoker Tobacco Type: Smokeless Tobacco (Dip or Chew) Second Hand Exposure: No; Do You Dip or Chew Tobacco: Yes; Hx Alcohol Use: No Hx Substance Use: No Preferred Language: Upper Sorbian Communication Ability: Effective Communication Ability Comment: Unable to write per spouse & reading difficulty Visual Impairment: No Limitations Endless [employer] 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 Head- atraumatic Eyes- PERRL. ENT- oropharynx clear Neck- supple, no JVD. Lungs- clear to auscultation no wheezing or crackles. Heart- regular rhythm; no murmur, no gallop. Abdomen- normal bowel sounds, soft, nontender, no distension. Extremities- no pretibial edema, no erythema seen Neuro- alert, oriented x 2; PERRL, no facial palsy; no dysarthria; moves extremities. Results & Data Results & Data Vital Signs (Past 12 Hours) Vital Signs Temp Pulse Resp BP Pulse Ox O2 Del Method 03/26/24 04:06 73 13 103/67 99 03/26/24 03:54 73 03/26/24 03:06 75 15 115/72 98 03/26/24 02:00 83 15 94/62 L 96 03/26/24 01:39 87 18 98/68 L 96 03/26/24 01:09 88 19 109/74 96 03/26/24 00:36 93 H 16 106/73 95 03/26/24 00:03 93 H 17 104/66 97 03/25/24 23:45 37.6 C H 102 H 18 124/89 95 Room Air 03/25/24 23:42 98 H 18 124/89 94 03/25/24 23:39 102 H Diagnostic Findings Laboratory Results WBC 11.77 K/ul (4.8-10.8) H 03/26/24 00:02 RBC 4.26 M/uL (4.70-6.10) L 03/26/24 00:02 Hgb 12.5 g/dl (14.0-18.0) L 03/26/24 00:02 Hct 37.8 % (42.0-52.0) L 03/26/24 00:02 MCV 88.7 fL (80.0-100.0) 03/26/24 00:02 MCH 29.3 pg (25.0-34.0) 03/26/24 00:02 MCHC 33.1 g/dL (32.0-36.0) 03/26/24 00:02 RDW Std Deviation 48.2 fL (36.4-46.3) H 03/26/24 00:02 RDW Coeff of Rogerio 14.9 % (11.5-14.5) H 03/26/24 00:02 Plt Count 196 K/uL (130-400) 03/26/24 00:02 MPV 9.8 fL (9.4-12.4) 03/26/24 00:02 Immature Gran % (Auto) 0.3 % 03/26/24 00:02 Neut % (Auto) 86.4 % 03/26/24 00:02 Lymph % (Auto) 4.8 % 03/26/24 00:02 [place] % (Auto) 8.4 % 03/26/24 00:02 Eos % (Auto) 0.0 % 03/26/24 00:02 Baso % (Auto) 0.1 % 03/26/24 00:02 Neut # (Auto) 10.17 K/uL (1.40-6.50) H 03/26/24 00:02 Lymph # (Auto) 0.56 K/uL (1.20-3.40) L 03/26/24 00:02 [place] # (Auto) 0.99 K/uL (0.11-0.59) H 03/26/24 00:02 Eos # (Auto) 0.00 K/uL (0.00-0.50) 03/26/24 00:02 Baso # (Auto) 0.01 K/uL (0.00-0.20) 03/26/24 00:02 Immature Gran # (Auto) 0.04 K/uL (0.01-0.20) 03/26/24 00:02 Sodium 139 mmol/L (136-145) 03/26/24 00:02 Potassium 3.2 mmol/L (3.5-5.1) L 03/26/24 00:02 Chloride 103 mmol/L (98-107) 03/26/24 00:02 Carbon Dioxide 26 mmol/L (21-32) 03/26/24 00:02 Anion Gap 10 (3-11) 03/26/24 00:02 BUN 19 mg/dl (6-23) 03/26/24 00:02 Creatinine 1.38 mg/dl (0.6-1.4) 03/26/24 00:02 Est Cr Clr Drug Dosing 63.0 ml/min 03/26/24 00:02 eGFR 58.54 03/26/24 00:02 BUN/Creatinine Ratio 13.8 (10-20) 03/26/24 00:02 Glucose 112 mg/dl (70-99(Fasting)) H 03/26/24 00:02 Lactate 1.1 mmol/L (0.4-2.0) 03/26/24 00:02 Calcium 8.9 mg/dl (8.6-10.3) 03/26/24 00:02 Magnesium 1.4 mg/dl (1.7-2.4) L 03/26/24 00:02 Total Bilirubin 1.4 mg/dl (0.2-1.0) H 03/26/24 00:02 Direct Bilirubin 0.4 mg/dl (0-0.2) H 03/26/24 00:02 AST 17 U/L (13-39) 03/26/24 00:02 ALT 11 U/L (7-52) 03/26/24 00:02 Alkaline Phosphatase 128 U/L (34-104) H 03/26/24 00:02 Troponin I High Sens 10.5 pg/ml (0-20) 03/26/24 00:02 Total Protein 6.5 gm/dl (6.0-8.3) 03/26/24 00:02 Albumin 3.9 gm/dl (3.4-5.0) 03/26/24 00:02 Procalcitonin 2.14 ng/ml (0-0.5) H 03/26/24 00:02 Urine Color Dark Yellow 03/26/24 00:07 Urine Appearance Turbid (Clear) A 03/26/24 00:07 Urine pH 8.5 (4.5-7.5) H 03/26/24 00:07 Ur Specific [place] 1.023 (1.000-1.030) 03/26/24 00:07 Urine Protein 1+ (Negative) H 03/26/24 00:07 Urine Glucose (UA) Negative (Negative) 03/26/24 00:07 Urine Ketones Trace (Negative) H 03/26/24 00:07 Urine Blood Negative (Negative) 03/26/24 00:07 Urine Nitrite Positive (Negative) A 03/26/24 00:07 Urine Bilirubin Negative (Negative) 03/26/24 00:07 Urine Urobilinogen Negative (Negative) 03/26/24 00:07 Ur Leukocyte Esterase 3+ (Negative) H 03/26/24 00:07 Urine WBC (Auto) >50 /hpf (0-5) H 03/26/24 00:07 Urine RBC (Auto) 3-5 /hpf (0-2) H 03/26/24 00:07 U Hyaline Cast (Auto) >20 /lpf (0-2) H 03/26/24 00:07 U Epithel Cells (Auto) 6-10 /hpf (0-2) H 03/26/24 00:07 Urine Bacteria (Auto) 4+ (None Seen) H 03/26/24 00:07 Triple Phos Crystals Present (None Prsent) A 03/26/24 00:07 Amorphous Sediment Present (None Prsent) A 03/26/24 00:07 Adenovirus (PCR) Not Detected (NotDetected) 03/26/24 00:14 B. pertussis DNA (PCR) Not Detected (NotDetected) 03/26/24 00:14 B.parapertussis DNA PCR Not Detected (NotDetected) 03/26/24 00:14 C. pneumoniae DNA (PCR) Not Detected (NotDetected) 03/26/24 00:14 Coronavirus OC43 (PCR) Not Detected (NotDetected) 03/26/24 00:14 Coronavirus HKU1 (PCR) Not Detected (NotDetected) 03/26/24 00:14 Coronavirus 229E (PCR) Not Detected (NotDetected) 03/26/24 00:14 SARS-CoV-2 (PCR) Not Detected (NotDetected) 03/26/24 00:14 Coronavirus NL63 (PCR) Not Detected (NotDetected) 03/26/24 00:14 Human Metapneumovir PCR Not Detected (NotDetected) 03/26/24 00:14 Influenza Type A (PCR) Not Detected (NotDetected) 03/26/24 00:14 Influenza Type B (PCR) Not Detected (NotDetected) 03/26/24 00:14 M. pneumoniae (PCR) Not Detected (NotDetected) 03/26/24 00:14 Parainfluenza 1 (PCR) Not Detected (NotDetected) 03/26/24 00:14 Parainfluenza 2 (PCR) Not Detected (NotDetected) 03/26/24 00:14 Parainfluenza 3 (PCR) Not Detected (NotDetected) 03/26/24 00:14 Parainfluenza 4 (PCR) Not Detected (NotDetected) 03/26/24 00:14 RSV (PCR) Not Detected (NotDetected) 03/26/24 00:14 Entero/Rhino (PCR) Not Detected (NotDetected) 03/26/24 00:14 Impressions Chest X-Ray 03/25/24 23:59 EXAM: XR chest 1V portable CLINICAL HISTORY: SEPSIS JMF TECHNIQUE: Radiograph of chest was acquired. COMPARISON: Prior radiograph dated February,. FINDINGS: The lungs are clear and well-expanded with no pulmonary infiltrate or pleural effusion. The cardiomediastinal silhouette is within normal limits. No acute osseous abnormality. IMPRESSION: 1. No acute cardiopulmonary disease. Electronically signed by Farooq Dougherty 03-26-2024 01:25 AM ECG Additional Comments: ECG. Sinus tachycardia rate of 102. Right bundle branch block. Code Status & VTE Plan VTE Prophylaxis Plan VTE Prophylaxis will be ordered: Yes
[2024-03-26] MEDS: POTASSIUM CHLORIDE 20 MEQ/15 ML UDC PO STA (06:38)
[2024-03-26 08:31] LABS: Calcium 8.1 mg/dl (8.6-10.3); Creatinine Clr Calc Pharmacy 66.3 ml/min; Magnesium 1.7 mg/dl (1.7-2.4); Potassium 4.1 mmol/L (3.5-5.1)
[2024-03-26 08:37] LABS: Basophils # (auto) 0.03 K/uL (0.00-0.20); Basophils % (auto) 0.2 %; Eosinophils # (auto) 0.02 K/uL (0.00-0.50); Eosinophils % (auto) 0.1 %; Hematocrit (blood only) 31.1 % (42.0-52.0); Hemoglobin 10.2 g/dl (14.0-18.0); Immature Granulocytes # (auto) 0.09 K/uL (0.01-0.20); Immature Granulocytes % (auto) 0.5 %; Lymphocytes % (auto) 6.5 %; Mean Corpuscular Hemoglobin 29.9 pg (25.0-34.0); Mean Corpuscular Hgb Conc 32.8 g/dL (32.0-36.0); Mean Corpuscular Volume 91.2 fL (80.0-100.0); Mean Platelet Volume 9.9 fL (9.4-12.4); Monocytes # (auto) 1.35 K/uL (0.11-0.59); Monocytes % (auto) 7.9 %; Neutrophils # (auto) 14.43 K/uL (1.40-6.50); Neutrophils % (auto) 84.8 %; Platelet Count 167 K/uL (130-400); RDW Coefficient of Variation 15.1 % (11.5-14.5); RDW Standard Deviation 50.2 fL (36.4-46.3); Red Blood Count 3.41 M/uL (4.70-6.10); White Blood Count 17.02 K/ul (4.8-10.8)
[2024-03-26] MEDS: MAGNESIUM SULFATE / D5W 1 GM/100 ML BAG IV ONE (08:57)
[2024-03-26] MEDS: DOCUSATE SODIUM 100 MG CAP PO SCH (08:58)
[2024-03-26] MEDS: LORATADINE 10 MG TAB PO SCH (08:59)
[2024-03-26] MEDS: TAMSULOSIN HCL 0.4 MG CAP PO SCH (08:59)
[2024-03-26] MEDS: allopurinoL 300 MG TAB PO SCH (08:59)
[2024-03-26] MEDS: ATORVASTATIN 10 MG TAB PO SCH (08:59)
[2024-03-26] MEDS: CYCLOBENZAPRINE HCL 10 MG TAB PO SCH (08:59)
[2024-03-26] MEDS: PANTOprazole 40 MG TAB PO SCH (08:59)
[2024-03-26] MEDS: MEMANTINE HCL 10 MG TAB PO SCH (08:59)
--- NOTE | 2024-03-26 09:06 | Communication Note ---
Date of Service: March 26, 2024 Patient was seen and examined, he is generally doing well, he did not appear confused to me but rather he was a little frances and weak appearing, continue with IV hydration, empirical ceftriaxone for UTI. Patient does not have any BLANCO, I would not see any rational for Newman catheter so I would prefer to change that to condom catheter. Follow with results of urine culture. Monitor WBC count.
--- OUTSIDE RECORDS SUMMARY | 2024-03-26 10:41 | External Medical Summary ---
Author Name Unknown Address Unknown Organization [id number]:[facility] – [place] - [address] [place] [id number] Laboratory Report Ordering Provider Test Date Status LUBNA MENDEZ 03/24/2024 12:22:45 Final Observation Date Value Abnormality Reference (Units) Status Bacteria identified in Specimen by Culture 03/24/2024 12:22:45 Multiple brett suggests contamination or colonization. Clinical correlation needed. Consider repeat testing if symptoms worsen. Final Test: Culture, Urine, Quanti tative
Specimen Source: Urine, Catheter
Specimen Type: Urine
Specimen Date: 03/24/2024 1222
Result Date: 03/25/2024 1325
Result Status: Final result
Resulting Lab: [facility] – [place]
[address]
[facility] [id number]

CULTURE

Multiple brett suggests contamination or colonization. Clinical correlation
needed. Consider repeat testing if symptoms worsen.

null Performing Location [facility] – [place], [place] - [address] [place] [id number]
--- OUTSIDE RECORDS SUMMARY | 2024-03-26 10:41 | External Medical Summary | Summary of Care ---
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 [facility] Does patient have multiple co-morbid conditions? Yes Does patient have [facility] insurance? Yes Comments Is referral coming from Care Coordination and Integration? Yes Best source of contact for the patient:Family member: Alisha Patient has remote monitoring device(s): No Connectivity in the home: Yes Encounter Details Date Type Department Care Team (Late st Contact Info) Description 03/22/2024 Telephone Family Practice [facility] [address] [place] [address] Charles Mayer DO [address] [place] [address] Allergies Active Allergy Reactions Criticality Noted Date [...] as of this encounter (statuses as of 03/25/2024) Medications Pantoprazole Sodium 40 MG Oral Tablet Delayed Release (Protonix)[place] cations:Acute gastric ulcer with hemorrhage TAKE ONE TABLET BY MOUTH TWICE A DAY - MORNING AND BEFORE BEDTIME 200 Tablet 1 4 12:11 PM EDT 06/22/19 24 025 Active Allopurinol 300 MG Oral Tablet (Zyloprim)[place] cations:Gout TAKE ONE TABLET BY MOUTH EVERY DAY 100 Tablet 1 4 11:00 AM EST 10/01/19 24 Active Famotidine 40 MG Oral Tablet (Pepcid)Indica tions:Gastroes ophageal reflux disease without esophagitis Take 1 Tablet by mouth in the morning. 30 Tablet 11 4 11:00 AM EST 10/23/19 24 Active Additional Information Patient taking [...] Tablet 2 4 11:31 AM EDT 11/27/19 Active Folic Acid 1 MG Oral Tablet Take 1 Tablet by mouth in the morning. 12/30/19 Active Cyanocobalamin 1000 MCG/ML Injection Kit Inject 1,000 mcg into a large muscle every 30 days. 01/14/20 24 Active LORazepam 1 MG Oral Tablet (Ativan) Take 1 Tablet by mouth every 8 hours as needed for Anxiety. 1 Tablet 01/14/20 Active Docusate Sodium 100 MG Oral [...] Active Promethazine HCl 12.5 MG Oral Tablet (Phenergan)Ind ications:Vascu lar dementia with agitation, unspecified dementia severity (HCC) Take 1 Tablet by mouth every 8 hours as needed for Nausea. 30 Tablet 11 01/28/20 24 Active Polyethylene Glycol 3350 17 GM Oral Packet (MiraLax) Take 1 Packet by mouth in the morning. As needed . Active OLANZapine 5 MG Oral Tablet (zyPREXA) Take 1 Tablet by mouth at bedtime. 30 Tablet 4 5:27 PM EST 02/23/20 24 Active Potassium Chloride ER 10 MEQ Oral Capsule Extended Release Take by mouth. Activ e Magnesium 400 MG Oral Tablet Take by mouth. Active Acetaminophen 500 MG Oral Tablet (Tylenol) Take 2 Tablets by mouth 3 times a day as needed (pain). Active Cyclobenzaprin e HCl 10 MG Oral Tablet (Flexeril)[place] cations:Other chronic pain Take 1 Tablet by mouth in the morning and 1 Tablet before bedtime. 60 Tablet 3 4 2:23 PM EST 03/17/20 24 Active Memantine HCl 10 MG Oral Tablet (Namenda)Indic ations:Other chronic pain Take 1 Tablet by mouth in the morning and 1 Tablet before bedtime. 60 Tablet 3 4 2:23 PM EST 03/17/20 24 Active Tamsulosin HCl 0.4 MG Oral Capsule (Flomax)Indica tions:Other chronic pain Take 1 Capsule by mouth in the morning. 30 Capsule 3 4 2:23 PM EST 03/17/20 24 Active oxyCODONE HCl ER 10 MG Oral Tablet ER 12 Hour Abuse-Deterren t (OxyCONTIN)Ind ications:Other chronic pain Take 1 Tablet by mouth in the morning and 1 Tablet before bedtime. 60 Tablet 03/17/20 24 Active Mirtazapine 30 MG Oral Tablet (Remeron) Take 1 Tablet by mouth at bedtime. 30 Tablet 1 4 2:23 PM EST 03/18/20 24 Active Morphine Sulfate ER 15 MG Oral Tablet Extended Release (MS Contin)Indicat ions:Other chronic pain Take 1 Tablet by mouth in the morning and 1 Tablet before bedtime. 60 Tablet 4 3:15 PM EST 03/22/20 24 Active oxyCODONE-Acet aminophen 5-325 MG Oral Tablet (Percocet)[place] cations:Histor y of trauma to spine Take 1 Tablet by mouth every 4 hours as needed for Pain, Severe. 30 Tablet 03/02/20 24 024 Discontinued(R efill) Morphine Sulfate 15 MG Oral Tablet (Msir)Indicati ons:Other chronic pain Take 1 Tablet by mouth in the morning and 1 Tablet before bedtime. 60 Tablet 03/22/20 24 024 Discontinued Hospital, Clinic, or Other Facility Administered Medication Ordered Dose Route Frequency Start Date End Date Status Vitamin B-12 (Cyanocobalamin) inj 1,000 mcgIndications:B12 deficiency 1000 mcg IM [id number] 01/28/2024 12/29/2024 Active documented as of this encounter (statuses as of 03/25/2024) Active Problems Problem Noted Date Diagnosed Date [...] anemia 04/24/2017 Coronary artery disease invo lving koi heart without angina pectoris 04/18/2016 Incomplete tear of right rotator cuff 04/15/2016 Overview (04/15/2016): 04/23 Dr Eduardo guerrero. Anxiety 09/28/2014 Diverticulitis of colon 09/16/2014 Intestinal postoperative nonabsorption 1 [facility] OTHER*[id number] 09/14/2009 MEDICATION USE AGREEMENT 05/19/2008 Overview (05/19/2008): See kim GERD (gastroesophageal reflux disease) Gout S/P gastric bypass S/P spinal fusion documented as of this encounter (statuses as of 03/25/2024) Resolved Problems Problem Noted Date Diagnosed Date Resolved Date Kidney disease, chronic, sta ge III (GFR 30-59 ml/min) 11/16/2018 02/17/2020 Overview: Per CKD protocol Well adult exam 04/18/2016 09/24/2018 Overview (06/01/2018): ??Need eval hypoglycemia? S/p gastric bypass. [facility] EGD-Gastric bypass with a [...] Tobacco use disorder 09/18/2009 011 Bariatric Proteinuria Research*[id number] 09/14/2009 12/27/2009 Organic sleep disorder 06/22/200910/10 Morbid obesity, BMI not known 06/22/2009 06/26/2010 Gout 05/08/2009 11/28/2014 History of tobacco use 05/08/200910/10 Sleep apnea 05/08/2009 06/22/2009 ADVANCE DIRECTIVE INFORMATION 01/21/2009 02/09/2024 Overview (01/21/2009): No, Advance Directive brochure offered , patient declined. 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 Not on file Not on file documented as of this encounter Miscellaneous Notes * Telephone Encounter - Charles Mayer, DO - 03/22/2024 3:37 PM EST Ms documented in this encounter Plan of Treatment Upcoming Encounters Date Type Department Care Team (Late st Contact Info) Description 03/25/2024 1:00 PM EST Office Visit Urology [facility] [address] [place] [address] Ruth Anguiano PA-C [address] [place] [place] [address] [phone] 03/29/2024 11:00 AM EST Office Visit [facility] [address] [facility] [place] [address] Charles Mayer DO [address] [facility] [place] [address] 04/14/2024 9:00 AM EST Office Visit Palliative Medicine [facility] [address] [place] [address] Josseline Post MD [address] [place] [address] 04/15/2024 9:00 AM EST Office Visit Neurology [address] [place] [address] Heather Franklin CRNP [address] [place] [address] 05/20/2024 1:40 PM EST Office Visit [facility] [address] [facility] [place] [address] Charles Mayer DO [address] [facility] [place] [address] 10/28/2024 11:40 AM EDT Office Visit Family Practice [facility] [address] [place] [address] Charles Mayer DO [address] [place] [address] Scheduled Procedures Name Priority Associated Diagnoses Date/Ti me ESOPHAGOGASTRODUODENOSCOPY ( EGD), FLEXIBLE, TRANSORAL, DIAGNOSTIC Recall Esophageal reflux Scheduled Referrals Name Type Priority Associated Diagnoses Orde r Schedule [facility] RE[facility]ERRAL OP Referral Within 10 days (routine) 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, psychotic disturbance, mood disturbance, or anxiety (HCC) Ordered: 03/25/2024 Health Maintenance Due Date Last Done Comments Cologuard 2008 Fecal Occult Blood Test 2008 Sigmoidoscopy 2008 Zoster Vaccines (1 of 2) 2013 Colonoscopy 06/03/2018 06/03/2017, 06/03/2017 Colorectal Cancer Screening 06/03/2018 COVID-19 Vaccine ( season) 2023 09/11/2020, 08/14/2020 Albumin/Creatinine Ratio 06/11/2024 06/12/2023, 0606/2014 GFR 07/28/2024 01/28/2024, 11/06, 10/27/2023, Additional history exists CKD HGB USE SMARTSET 15445 11/24/202411/24, 11/25/2023, 06/11/2023, Additional history exists CKD PHOS USE SMARTSET 45336 11/24/2024 08, 06/11/2023, 12/24/2019 Depression Screening 01/21/2025 [...] as of this encounter Visit Diagnoses Diagnosis Other chronic pain- Primary 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 Care Teams Transit Driver Relationship Specialty Start Date End Date Charles Mayer DO [address] [place] [address] PCP - General Family Medicine 05/26/23 documented as of this encounter
--- OUTSIDE RECORDS SUMMARY | 2024-03-26 10:41 | External Medical Summary | Summary of Care ---
Author Name Unknown Organization [facility] Address [address] [address] Phone [phone] Care Team Providers Care Food Products Sales Representative Name Role Phone Andrea Mayer DO Primary Care Provider Reason for Referral * Medication Prior Authorization - Denied Specialty Diagnoses / Procedures Referred By Heather neves Referred To Contact Diagnoses Other chronic pain Andrea Mayer DO [address] [place] [address] Phone: tel: fax: Referral ID Status Reason Start Date Expiration Date Visits Re quested Visits Authorized [id number] Denied 999 999 Reason for Visit * Reason Onset Date Comments Medication Pre-auth 03/17/2024 Oxycodone ER 10mg Encounter Details Date Type Department Care Team (Late st Contact Info) Description 03/17/2024 Telephone Family Practice [facility] [address] [place] [address] Andrea Mayer DO [address] [place] [address] Medication Pre-auth (Oxycodone ER 10mg) Allergies Active Allergy Reactions Criticality Noted Date [...] as of this encounter (statuses as of 03/22/2024) Medications Pantoprazole Sodium 40 MG Oral Tablet [...] 2 mg thereafter 180 Capsule 3 11/25/19 Active Atorvastatin Calcium 10 MG Oral Tablet [...] 30 Tablet 4 5:27 PM EST 02/23/20 Active Potassium Chloride ER 10 MEQ Oral Capsule Extended Release Take by mouth. Activ e Magnesium 400 MG Oral Tablet Take by mouth. Active oxyCODONE-Acet aminophen 5-325 MG Oral Tablet (Percocet)[place] cations:Histor y of trauma to spine Take 1 Tablet by mouth every 4 hours as needed for Pain, Severe. 30 Tablet 03/02/20 24 Active Acetaminophen 500 MG Oral Tablet (Tylenol) Take 2 Tablets by mouth 3 times a day as needed (pain). Active oxyCODONE HCl ER 10 MG Oral Tablet ER 12 Hour Abuse-Deterren t (OxyCONTIN)Ind ications:Other chronic pain Take 1 Tablet by mouth in the morning and 1 Tablet before bedtime. 60 Tablet 03/17/20 Active MORPHINE 5 MG/ML PHYSICIST [employer] SQ INFUSION (AMBULATORY)In dications:MEDI CATION USE AGREEMENT Dose morphine per Pain management 1 Bolus Dosing Unit 5 10/05/19 14 024 Discontinued Cyclobenzaprin e HCl 10 MG Oral Tablet Take 1 Tablet by mouth in the morning and 1 Tablet before bedtime. Takes 1 1/2 tabs (15 mg) three times day. 01/14/20 24 024 Discontinued(R efill) Tamsulosin HCl 0.4 MG Oral Capsule (Flomax) Take 1 Capsule by mouth in the morning. Discontinued(R efill) oxyCODONE HCl 10 MG Oral Tablet (Roxicodone)In dications:Othe r chronic pain Take 1 Tablet by mouth in the morning and 1 Tablet before bedtime. 60 Tablet 4 7:53 AM EST 02/16/20 24 Discontinued Mirtazapine 15 MG Oral Tablet (Remeron) Take 1 Tablet by mouth at bedtime. 30 Tablet 1 03/17/20 24 Discontinued Hospital, Clinic, or Other Facility Administered Medication Ordered Dose Route Frequency Start Date End Date Status Vitamin B-12 (Cyanocobalamin) inj 1,000 mcgIndications:B12 deficiency 1000 mcg IM [id number] 01/28/2024 12/29/2024 Active documented as of this encounter (statuses as of 03/22/2024) Active Problems Problem Noted Date Diagnosed Date [...] anemia 04/24/2017 Coronary artery disease invo lving crow heart without angina pectoris 04/18/2016 Incomplete tear of right rotator cuff 04/15/2016 Overview (04/15/2016): 04/23 Dr Eduardo guerrero. Anxiety 09/28/2014 Diverticulitis of colon 09/16/2014 Intestinal postoperative nonabsorption 1 [employer] OTHER*[id number] 09/14/2009 MEDICATION USE AGREEMENT 05/19/2008 Overview (05/19/2008): See kim GERD (gastroesophageal reflux disease) Gout S/P gastric bypass S/P spinal fusion documented as of this encounter (statuses as of 03/22/2024) Resolved Problems Problem Noted Date Diagnosed Date Resolved Date Kidney disease, chronic, sta ge III (GFR 30-59 ml/min) 11/16/2018 02/17/2020 Overview: Per CKD protocol Well adult exam 04/18/2016 09/24/2018 Overview (06/01/2018): ??Need eval hypoglycemia? S/p gastric bypass. Pain mgmt Dr Syed Asencio--[facility] +pain pump 02/22 EGD-Gastric bypass with a [...] Tobacco use disorder 09/18/2009 011 Bariatric Proteinuria Research*[id number] 09/14/2009 12/27/2009 Organic sleep disorder 06/22/200910/10 Morbid [...] as of this encounter (statuses as of 03/22/2024) Immunizations Name Administration Dates Next Due COVID-19 [...] No 01/22/2024 Does the household have a [facility] source of income? 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 Thank you! * Telephone Encounter - Janell Jenkins CPhT - 03/22/2024 1:16 PM EST Spouse calling in she is asking for an alternative to Oxycontin ER to be sent to the [facility] pharmacy at [facility]. She stated the insurance will not pay for the Oxycontin ER. She is asking high priority. Thank you, Janell Jenkins CPhT [facility] 03/22/2024,1:19 PM * Telephone Encounter - Amanda Dawn ditch rider - 03/22/2024 8:14 AM EST P calling to advise Do not see medical record documentation of therapeutic failure on, intolerance to, or contraindication to two formulary long-acting opioids Formulary alternatives include: Short-Acting Opioids: acetaminophen-codeine, hydrocodoneAPAP, hydromorphone, morphine immediate release, oxycodone- APAP, oxycodone immediate release, tramadol Long-Acting Opioids: buprenorphine patch, fentanyl patch (12.5 mcg/hr, 25 mcg/hr, 50 mcg/hr,75 mcg/hr, 100 mcg/hr), morphine extended release, tramadol ER Quantity limits apply Amanda Elam [facility] 03/22/2024,8:15 AM * Telephone Encounter - Flavia Harkins LPN - 03/19/2024 3:48 PM EST Notes faxed * Telephone Encounter - Janell Jenkins CPhT - 03/19/2024 9:14 AM EST Patients insurance would like to inform the office that Oxycodone is requiring additional information: failure to other longterm opioids. Prior authorization entered in [facility] at [facility]. EOC# [id number] Please send to [facility] before 4 pm. Thank you, Janell Jenkins CPhT [facility] 03/19/2024,9:14 AM * Telephone Encounter - Amanda Cortez PHARM Tech - 03/18/2024 4:11 PM EST Patients insurance would like to inform the office that oxycodone ER 10mg is requiring additional information: if pt has tried and failed two other longterm opioids . Prior authorization entered in [facility] at [facility]. EOC# [id number] Please send to [facility] before end of day tomorrow 03-19-24. Thank you, Amanda Cortez CPhT [facility] 03/18/2024, 4:11 PM * Telephone Encounter - Marilyn Cerna CPhT - 03/18/2024 9:10 AM EST Pharmacy calling to inform doctor that the patient's insurance will not pay for this medication without a completed prior authorization. Did confirm this information with the pharmacy. Pt's current insurance information is as follows: Patient name: Kana Thomas ID number: [id number] BIN number: [id number] PCN number: [id number] Group number: [id number] Subscriber name: Kana Thomas Primary or Secondary Insurance:Primary Medication: oxycodone ER 10mg Reason for Request: [place] required Pharmacy and phone number: [facility] [phone] Rx plan and phone number: [facility] [phone] Is this a new medication for the patient? No. How did the patient obtain the medication on the lastfill? It was covered last time on this same insurance. What alternative medications does the pharmacy have in stock?: Thank you, Marilyn Cerna CPhT [facility] 03/18/2024, 9:11 AM documented in this encounter Plan of Treatment Upcoming Encounters Date Type Department Care Team (Late st Contact Info) Description 03/25/2024 1:00 PM EST Office Visit Urology Reji Haines [address] [address] Ruth Gonsales PA-C [address] [address] 03/29/2024 11:00 AM EST Office Visit [facility] [address] [facility] [place] [address] Andrea Mayer, [address] [facility] [place] [address] 04/14/2024 9:00 AM EST Office Visit Palliative Medicine [facility] [address] [place] [id number] Josseline Post MD [address] [facility] [place] [id number] 04/15/2024 9:00 AM EST Office Visit Neurology [address] [place] [address] Heather Franklin CRNP 100 [facility] [place] [id number] 05/20/2024 1:40 PM EST Office Visit [facility] [address] [facility] [place] [address] Andrea Mayer, [address] [facility] [place] [address] 10/28/2024 11:40 AM EDT Office Visit Family [facility] [address] [place] [address] Andrea Mayer, [address] [place] [address] Scheduled Procedures Name Priority Associated Diagnoses Date/Ti [...] Additional history exists CKD HGB USE SMARTSET 92504 11/24/202411/24, 11/25/2023, 06/11/2023, Additional history exists CKD PHOS USE SMARTSET 51271 11/24/202411/06, 06/11/2023, 12/24/2019 Depression Screening 01/21/2025 01/22/2024 [...] Visit Diagnoses Diagnosis Other chronic pain- Primary documented in this encounter Advance Directives Documents on File Type Date Recorded Patient Loan Clerk Expl 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 Care Teams Food Products Sales Representative Relationship Specialty Start Date End Date Andrea Mayer DO [address] [address] PCP - General Family Medicine 05/26/23 documented as of this encounter
--- OUTSIDE RECORDS SUMMARY | 2024-03-26 10:41 | External Medical Summary | Summary of Care ---
Author Name Unknown Organization [facility] Address [address] [place] [address] Phone [phone] Care Team Providers Care Social Science Instructor Name Role Phone Marsha Mayeradin Galloshawn Primary Care Provider Reason for Visit * Reason Onset Date Comments [facility]: Screening 03/25/2024 Encounter Details Date Type Department Care Team (Late st Contact Info) Description 03/25/2024 Telephone [facility], [place] [address] [place] [address] [place] [address] Jaonna Hair, HOSE OPERATOR [address] [place] [address] [place] [id number] [facility]: Screening Allergies Active Allergy Reactions Criticality Noted Date [...] needed for Anxiety. 1 Tablet 4 Active Docusate Sodium 100 MG Oral [...] for Nausea. 30 Tablet 11 4 Active Polyethylene Glycol 3350 17 GM Oral Packet (MiraLax) Take 1 Packet by mouth in the morning. As needed . Active OLANZapine 5 MG Oral Tablet (zyPREXA) Take 1 Tablet by mouth at bedtime. 30 Tablet 02/24/2024 5:27 PM EST 4 Active Potassium Chloride ER 10 MEQ Oral Capsule Extended Release Take by mouth. Active Magnesium 400 MG Oral Tablet Take by mouth. Act pernell Acetaminophen 500 MG Oral Tablet (Tylenol) Take 2 Tablets by mouth 3 times a day as needed (pain). Active Cyclobenzaprine HCl 10 MG Oral Tablet (Flexeril)Indica tions:Other chronic pain Take 1 Tablet by mouth in the morning and 1 Tablet before bedtime. 60 Tablet 3 03/18/2024 2:23 PM EST 4 Active Memantine HCl 10 MG Oral Tablet (Namenda)Indicat ions:Other chronic pain Take 1 Tablet by mouth in the morning and 1 Tablet before bedtime. 60 Tablet 3 03/18/2024 2:23 PM EST 4 Active Tamsulosin HCl 0.4 MG Oral Capsule (Flomax)Indicati ons:Other chronic pain Take 1 Capsule by mouth in the morning. 30 Capsule 3 03/18/2024 2:23 PM EST 4 Active oxyCODONE HCl ER 10 MG Oral Tablet ER 12 Hour Abuse-Deterrent (OxyCONTIN)Indic ations:Other chronic pain Take 1 Tablet by mouth in the morning and 1 Tablet before bedtime. 60 Tablet 4 Active Mirtazapine 30 MG Oral Tablet (Remeron) Take 1 Tablet by mouth at bedtime. 30 Tablet 1 03/18/2024 2:23 PM EST 4 Active oxyCODONE-Acetam inophen 5-325 MG Oral Tablet (Percocet)Indica tions:History of trauma to spine Take 1 Tablet by mouth every 4 hours as needed for Pain, Severe. 30 Tablet 03/24/2024 2:35 PM EST 4 Active Morphine Sulfate ER 15 MG Oral Tablet Extended Release (MS Contin)Indicatio ns:Other chronic pain Take 1 Tablet by mouth in the morning and 1 Tablet before bedtime. 60 Tablet 03/23/2024 3:15 PM EST 4 Active Hospital, Clinic, or Other Facility Administered Medication Ordered Dose Route Frequency Start Date End Date Status Vitamin B-12 (Cyanocobalamin) inj 1,000 mcgIndications:B12 deficiency 1000 mcg IM [id number] 01/28/2024 12/29/2024 Active documented as of this [...] anemia 04/24/2017 Coronary artery disease invo lving [place] heart without angina pectoris 04/18/2016 Incomplete tear of right rotator cuff 04/15/2016 Overview (04/15/2016): 04/23 Dr Eduardo guerrero. Anxiety 09/28/2014 Diverticulitis of colon 09/16/2014 Intestinal postoperative nonabsorption 1 CALLAHAN RESEARCH OTHER*[id number] 09/14/2009 MEDICATION USE AGREEMENT 05/19/2008 Overview (05/19/2008): [...] S/p gastric bypass. 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 A review of this chart was completed and: documented in this encounter Plan of Treatment Upcoming Encounters Date Type Department Care Team (Late st Contact Info) Description 03/29/2024 11:00 AM EST Office Visit Family Practice [facility] [address] [place] [address] Charles Mayer DO [address] [place] [address] 04/14/2024 9:00 AM EST Office Visit Palliative Medicine [facility] [address] [place], [place] [address] Josseline Post MD [address] [place] [address] [place] [address] 04/15/2024 9:00 AM EST Office Visit Neurology [address] [place] [phone] Heather Franklin, BUSINESS EXCELLENCE LEADER [address] [facility] [place], [place] [id number] 05/20/2024 1:40 PM EST Office Visit [facility] [address] [facility] [place] [address] Charles Mayer, DO [address] [facility] [place] [address] 10/28/2024 11:40 AM EDT Office Visit [facility] [address] [facility] [place] [address] Charles Mayer, [address] [facility] [place] [address] Scheduled Procedures Name Priority Associated Diagnoses Date/Ti [...] Additional history exists CKD HGB USE SMARTSET 79557 11/24/202411/24, 11/25/2023, 06/11/2023, Additional history exists CKD PHOS USE SMARTSET 38420 11/24/2024 08/2 , 06/11/2023, 12/24/2019 Depression Screening [...] Documents on File Type Date Recorded Patient Formula Mixer Expl 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 Care Teams Social Science Instructor Relationship Specialty Start Date End Date Charles Mayer DO [address] [place] [address] PCP - General Family Medicine 05/26/23 documented as of this encounter
--- OUTSIDE RECORDS SUMMARY | 2024-03-26 10:41 | External Medical Summary | Summary of Care ---
Author Name Unknown Organization [facility] Address [address] [place] [address] Phone [phone] Care Team Providers Care Analog Device Designer Name Role Phone Charles Mayer DO Primary Care Provider Reason for Visit * Reason Comments Outpatient Testing Encounter Details Date Type Department Care Team (Late st Contact Info) Description 03/24/2024 12:20 PM EST Laboratory [facility], [facility] [address] Kun [facility] Drop [facility] [address] [facility] [place] [address] Dysuria Allergies Active Allergy Reactions Criticality Noted Date [...] as of this encounter (statuses as of 03/24/2024) Medications Pantoprazole Sodium 40 MG Oral Tablet [...] for Pain, Severe. 30 Tablet 4 Active Morphine Sulfate ER 15 MG Oral Tablet Extended Release (MS Contin)Indicatio ns:Other chronic pain Take 1 Tablet by mouth in the morning and 1 Tablet before bedtime. 60 Tablet 03/23/2024 3:15 PM EST 4 Active Hospital, Clinic, or Other Facility Administered Medication Ordered Dose Route Frequency Start Date End Date Status Vitamin B-12 (Cyanocobalamin) inj 1,000 mcgIndications:B12 deficiency 1000 mcg IM [id number] 01/28/2024 12/29/2024 Active documented as of this encounter (statuses as of 03/24/2024) Active Problems Problem Noted Date Diagnosed Date [...] anemia 04/24/2017 Coronary artery disease invo lving [place] heart without angina pectoris 04/18/2016 Incomplete tear of right rotator cuff 04/15/2016 Overview (04/15/2016): 04/23 Dr Eduardo guerrero. Anxiety 09/28/2014 Diverticulitis of colon 09/16/2014 Intestinal postoperative nonabsorption 1 CALLAHAN RESEARCH OTHER*[id number] 09/14/2009 MEDICATION USE AGREEMENT 05/19/2008 Overview (05/19/2008): See julio GERD (gastroesophageal reflux disease) Gout S/P gastric bypass S/P spinal fusion documented as of this encounter (statuses as of 03/24/2024) Resolved Problems Problem Noted Date Diagnosed Date Resolved Date Kidney disease, chronic, sta ge III (GFR 30-59 ml/min) 11/16/2018 02/17/2020 Overview: Per CKD protocol Well adult exam 04/18/2016 09/24/2018 Overview (06/01/2018): ??Need eval hypoglycemia? S/p gastric bypass. 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 Not on file Not on file documented as of this encounter Plan of Treatment Upcoming Encounters Date Type Department Care Team (Late st Contact Info) Description 03/25/2024 1:00 PM EST Office Visit Urology Reji [address]aines [address] [place] [address] Ruth Gonsales PA-C [address] [place] [address] 03/29/2024 11:00 AM EST Office Visit Family Practice [facility] [address] [place] [address] Charles Mayer DO [address] [place] [address] 04/14/2024 9:00 AM EST Office Visit Palliative Medicine [facility] [address] [place], [place] [phone] Josseline Post MD [address] [place] [address] [place] [address] 04/15/2024 9:00 AM EST Office Visit Neurology [address] [place], [place] [address] Heather Franklin CRNP [address] [facility] [place] [address] 05/20/2024 1:40 PM EST Office Visit [facility] [address] [place] [address] Charles Mayer, DO [address] [facility] [place] [address] 10/28/2024 11:40 AM EDT Office Visit [facility] [address] [place] [address] Charles Mayer, DO [address] [facility] [place] [address] Pending Results Name Type Priority Associated Diagnoses Date /Time CULTURE, URINE, QUANTITATIVE Lab Routine Dysuria 03/24/2024 12:22 PM EST Scheduled Procedures Name Priority Associated Diagnoses Date/Ti ia ESOPHAGOGASTRODUODENOSCOPY ( EGD), FLEXIBLE, TRANSORAL, DIAGNOSTIC Recall Esophageal reflux Health Maintenance Due Date Last Done Comments Cologuard 2008 Fecal Occult Blood Test 2008 Sigmoidoscopy 2008 Zoster Vaccines (1 of 2) 2013 Colonoscopy 06/03/2018 06/03/2017, 06/03/2017 Colorectal Cancer Screening 06/03/2018 COVID-19 Vaccine ( season) 2023 09/11/2020, 08/14/2020 Albumin/Creatinine Ratio 06/11/2024 06/12/2023, 06/2014 GFR 07/28/2024 01/28/2024, 11/06, 10/27/2023, Additional history exists CKD HGB USE SMARTSET 94761 11/24/202411/24, 11/25/2023, 06/11/2023, Additional history exists CKD PHOS USE SMARTSET 20296 11/24/2024 08/2 , 06/11/2023, 12/24/2019 Depression Screening [...] as of this encounter Visit Diagnoses Diagnosis Dysuria documented in this encounter Advance Directives Documents on File Type Date Recorded Patient Hot Packer Expl 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 Care Teams Analog Device Designer Relationship Specialty Start Date End Date Charles Mayer DO [address] [place] [address] PCP - General Family Medicine 05/26/23 documented as of this encounter
--- OUTSIDE RECORDS SUMMARY | 2024-03-26 10:41 | External Medical Summary | Summary of Care ---
Author Name Unknown Organization [facility] [address] [facility] [address] Phone [phone] Care Team Providers Care Naturalization Examiner Name Role Phone Andrea Mayer DO Primary Care Provider Reason for Referral * Medication Prior Authorization - Denied Specialty Diagnoses / Procedures Referred By Heather neves Referred To Contact Diagnoses Other chronic pain Andrea Mayer DO [address] [place] [address] Phone: tel: fax: Referral ID Status Reason Start Date Expiration Date Visits Re quested Visits Authorized [id number] Denied 999 999 Reason for Visit * Reason Onset Date Comments Medication Pre-auth 03/17/2024 Oxycodone ER 10mg Encounter Details Date Type Department Care Team (Late st Contact Info) Description 03/17/2024 Telephone Family Practice [facility] [address] [place] [address] Andrea Mayer DO [address] [place] [address] Medication Pre-auth (Oxycodone ER 10mg) Allergies Active [...] 60 Tablet 03/17/20 Active MORPHINE 5 MG/ML CAPSULE INSPECTOR SQ INFUSION (AMBULATORY)In dications:MEDI CATION USE AGREEMENT [...] 1 Capsule by mouth in the morning. 024 Discontinued(R efill) oxyCODONE HCl 10 MG Oral Tablet (Roxicodone)In dications:Othe r chronic pain Take 1 Tablet by mouth in the morning and 1 Tablet before bedtime. 60 Tablet 4 7:53 AM EST 02/16/20 24 024 Discontinued oxyCODONE-Acet aminophen 5-325 MG Oral Tablet (Percocet)[place] cations:Histor y of trauma to spine Take 1 Tablet by mouth every 4 hours as needed for Pain, Severe. 30 Tablet 03/02/20 24 024 Discontinued(R efill) Mirtazapine 15 MG Oral Tablet (Remeron) Take 1 Tablet by mouth at bedtime. 30 Tablet 1 03/17/20 24 Discontinued Morphine Sulfate 15 MG Oral Tablet (Msir)Indicati ons:Other chronic pain Take 1 Tablet by mouth in the morning and 1 Tablet before bedtime. 60 Tablet 03/22/20 24 024 Discontinued Hospital, Clinic, or Other Facility Administered Medication Ordered Dose Route Frequency Start Date End Date Status Vitamin B-12 (Cyanocobalamin) inj 1,000 mcgIndications:B12 deficiency 1000 mcg IM [id number] 01/28/2024 12/29/2024 Active documented as of this [...] anemia 04/24/2017 Coronary artery disease invo lving [place] heart without angina pectoris 04/18/2016 Incomplete tear of right rotator cuff 04/15/2016 Overview (04/15/2016): 04/23 Dr Eduardo guerrero. Anxiety 09/28/2014 Diverticulitis of colon 09/16/2014 Intestinal postoperative nonabsorption 1 CALLAHAN RESEARCH OTHER*[id number] 09/14/2009 MEDICATION USE AGREEMENT 05/19/2008 Overview (05/19/2008): [...] S/p gastric bypass. 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 She stated the insurance will not pay for the Oxycontin ER. She is asking high priority. Thank you, Janell Jenkins CPhT Control Area Operator [facility] 03/22/2024,1:19 PM * Telephone Encounter - Amanda Dawn study lead - 03/22/2024 8:14 AM EST [facility] calling to advise Do not see medical [...] tramadol ER Quantity limits apply Amanda Elam Control Area Operator III [facility] 03/22/2024,8:15 AM * Telephone Encounter - Flavia Harkins LPN - 03/19/2024 3:48 PM EST Notes faxed * Telephone Encounter - Janell Jenkins CPhT - 03/19/2024 9:14 AM EST Patients insurance would like to inform the office that Oxycodone is requiring additional information: 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 Prior authorization entered in [employer] at [facility]. EOC# [id number] Please send to [facility] before 4 pm. Thank you, Janell Jenkins CPhT Control Area Operator [facility] 03/19/2024,9:14 AM * Telephone Encounter - Amanda Cortez study lead - 03/18/2024 4:11 PM EST Patients insurance would like to inform the office that oxycodone ER 10mg is requiring additional information: if pt has tried and failed two other [facility] opioids . Prior authorization entered in [employer] at [facility]. EOC# [id number] Please send to [facility] before end of day tomorrow 03-19-24. Thank you, Amanda Cortez CPhT Control Area Operator II [facility] 03/18/2024, 4:11 PM * Telephone Encounter - Marilyn Cerna CPhT - 03/18/2024 9:10 AM EST Pharmacy calling to inform doctor that the patient's insurance will not pay for this medication without a completed prior authorization. Did confirm this information with the pharmacy. Pt's current insurance information is as follows: Patient name: Kana Thomas ID number: [id number] BIN number: [id number] PCN number: [id number] Group number: [id number] Subscriber name: Kana Thomas Primary or Secondary Insurance:Primary Medication: oxycodone ER 10mg Reason for Request: [place] required [facility] [phone] Rx plan and phone number: [facility] [phone] Is this a new medication for the patient? No. How did the patient obtain the medication on the lastfill? It was covered last time on this same insurance. What alternative medications does the pharmacy have in stock?: Thank you, Marilyn Cerna CPhT Control Area Operator [facility] 03/18/2024, 9:11 AM documented in this encounter Plan of Treatment Upcoming Encounters Date Type Department Care Team (Late st Contact Info) Description 03/25/2024 1:00 PM EST Office Visit Urology Reji Haines [address] [place] [address] Ruth Gonsales PA-C [address] [place] [address] 03/29/2024 11:00 AM EST Office Visit Family Practice [facility] [address] [place] [address] Andrea Mayer DO [address] [place] [address] 04/14/2024 9:00 AM EST Office Visit Palliative Medicine [facility] [address] [facility] [place] [phone] Josseline Post MD [address] [facility] [place] [address] 04/15/2024 9:00 AM EST Office Visit Neurology [address] [place], [place] [address] Heather Franklin CRNP [address] [facility] [place] [address] 05/20/2024 1:40 PM EST Office Visit [facility] [address] [place] [address] Andrea Mayer, DO [address] [facility] [place] [address] 10/28/2024 11:40 AM EDT Office Visit [facility] [address] [place] [address] Andrea Mayer, [address] [facility] [address] Scheduled Procedures Name Priority Associated Diagnoses Date/Ti [...] Additional history exists CKD HGB USE SMARTSET 61051 11/24/202411/24, 11/25/2023, 06/11/2023, Additional history exists CKD PHOS USE SMARTSET 26837 11/24/2024 08/2 , 06/11/2023, 12/24/2019 Depression Screening [...] Documents on File Type Date Recorded Patient Program Project Analyst Expl 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 Care Teams Naturalization Examiner Relationship Specialty Start Date End Date Andrea Mayer DO [address] [place] [address] PCP - General Family Medicine 05/26/23 documented as of this encounter
--- OUTSIDE RECORDS SUMMARY | 2024-03-26 10:41 | External Medical Summary | Summary of Care ---
Author Name Unknown Organization [facility] Address [address] [place] [address] Phone [phone] Care Team Providers Care Decontaminator Name Role Phone Andrea Mayer DO Primary Care Provider Reason for Visit * Reason Onset Date Comments Medication Refill 03/22/2024 Encounter Details Date Type Department Care Team (Late st Contact Info) Description 03/22/2024 Refill Family Practice [facility] [address] [place] [address] Andrea Mayer DO [address] [place] [address] History of trauma to spine Allergies Active Allergy Reactions Criticality Noted Date [...] as of this encounter (statuses as of 03/23/2024) Medications Pantoprazole Sodium 40 MG Oral Tablet [...] Active Cyclobenzaprine HCl 10 MG Oral Tablet (Flexeril)Indic ations:Other chronic pain Take 1 Tablet by mouth in the morning and 1 Tablet before bedtime. 60 Tablet 3 03/18/2024 2:23 PM EST 4 Active Memantine HCl 10 MG Oral Tablet (Namenda)Indica tions:Other chronic pain Take 1 Tablet by mouth in the morning and 1 Tablet before bedtime. 60 Tablet 3 03/18/2024 2:23 PM EST 4 Active Tamsulosin HCl 0.4 MG Oral Capsule (Flomax)Indicat ions:Other chronic pain Take 1 Capsule by mouth in the morning. 30 Capsule 3 03/18/2024 2:23 PM EST 4 Active oxyCODONE HCl ER 10 MG Oral Tablet ER 12 Hour Abuse-Deterrent (OxyCONTIN)[place] cations:Other chronic pain Take 1 Tablet by mouth in the morning and 1 Tablet before bedtime. 60 Tablet 4 Active Mirtazapine 30 MG Oral Tablet (Remeron) Take 1 Tablet by mouth at bedtime. 30 Tablet 1 03/18/2024 2:23 PM EST 4 Active oxyCODONE-Aceta minophen 5-325 MG Oral [...] inj 1,000 mcgIndications:B12 deficiency 1000 mcg IM [id number] 01/28/2024 12/29/2024 Active documented as of this encounter (statuses as of 03/23/2024) Active Problems Problem Noted Date Diagnosed Date [...] anemia 04/24/2017 Coronary artery disease invo lving [place] heart without angina pectoris 04/18/2016 Incomplete tear of right rotator cuff 04/15/2016 Overview (04/15/2016): 04/23 Dr Eduardo guerrero. Anxiety 09/28/2014 Diverticulitis of colon 09/16/2014 Intestinal postoperative nonabsorption 1 CALLAHAN RESEARCH OTHER*[id number] 09/14/2009 MEDICATION USE AGREEMENT 05/19/2008 Overview (05/19/2008): See kim GERD (gastroesophageal reflux disease) Gout S/P gastric bypass S/P spinal fusion documented as of this encounter (statuses as of 03/23/2024) Resolved Problems Problem Noted Date Diagnosed Date [...] Tobacco use disorder 09/18/2009 011 Bariatric Proteinuria Research*[id number] 09/14/2009 12/27/2009 Organic sleep disorder 06/22/200910/10 Morbid [...] as of this encounter (statuses as of 03/23/2024) Immunizations Name Administration Dates Next Due COVID-19 [...] 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 Authorizing Provider: ANDREA MAYER * Telephone Encounter - Arya Zabala [facility] - 03/23/2024 12:41 PM EST Pending Prescriptions: Disp Refills oxyCODONE-Acetaminophen 5-325 MG Oral Tabl*30 Tab*0 Sig: Take 1 Tablet by mouth every 4 hours as needed for Pain, Severe. * Telephone Encounter - Arya Zabala [facility] - 03/23/2024 12:41 PM EST I have reviewed the patients controlled substance dispensing history in the Prescription Drug Monitoring Program in compliance with the [facility] regulations before prescribing a controlled substance. PDMP checked on 03/23/2024. Pending Prescriptions: Disp Refills oxyCODONE-Acetaminophen 5-325 MG Oral Tab*30 Tab*0 Sig: Take 1 Tablet by mouth every 4 hours as needed for Pain, Severe. Last Visit: 02/16/2024 (in office), Visit date not found (telemedicine) Next Visit: 03/29/2024 Date medication was last filled: 03/02/24 Date medication is due for refill: 03/06/24 Pharmacy: [facility] Is this request for a controlled substance? Yes and Urine Drug Screen Not completed Toxicology results: No results found. However, due to the size of the patient record, not all encounters were searched.Please check Results Review for a complete set of results. Please approve if appropriate. Thanks, Arya Zabala, PharmD Clinical Pharmacist [facility] ([facility]) [phone] 03/23/2024, 12:41 PM * Telephone Encounter - Janell Jenkins CPhT - 03/22/2024 1:20 PM EST Did you pend patient's preferred pharmacy and medication before forwarding?yes Pharmacy: [facility] Pending Prescriptions: Disp Refills oxyCODONE-Acetaminophen 5-325 MG Oral Tab*30 Tab*0 Sig: Take 1 Tablet by mouth every 4 hours as needed for Pain, Severe. Last Visit: 02/16/2024 (in office), Visit date not found (telemedicine) Next Visit: 03/29/2024 If no future appointments scheduled, and last appointment is greater than a year ago, please schedule patient for a follow-up appointment Last date the medication was ordered: 03/02/2024 Is this request for a controlled substance?Yes, What was the last refill date 03/02/2024 w/ quantity 30 and dosage 5-325 and Urine Drug Screen Not completed Urine Drug Screen:No results found. However, due [...] [address] [place] [address] Ruth Gonsales PA-C [address] [place] [address] 03/29/2024 11:00 AM EST Office Visit Family [facility] [address] [address] Andrea Mayer DO [address] [place] [address] 04/14/2024 9:00 AM EST Office Visit Palliative Medicine [facility] [address] [place] [address] Josseline Post MD [address] [facility] [place] [address] 04/15/2024 9:00 AM EST Office Visit Neurology [address], [place] [phone] Heather Franklin CRNP [address] [facility] [place] [id number] 05/20/2024 1:40 PM EST Office Visit [facility] [address] [facility] [place] [address] Andrea Mayer, DO [address] [facility] [place] [address] 10/28/2024 11:40 AM EDT Office Visit [facility] [address] [facility] [place] [address] Andrea Mayer, DO [address] [facility] [place] [address] Scheduled Procedures Name Priority Associated Diagnoses Date/Ti [...] Additional history exists CKD HGB USE SMARTSET 19834 11/24/202411/24, 11/25/2023, 06/11/2023, Additional history exists CKD PHOS USE SMARTSET 13620 11/24/202411/06, 06/11/2023, 12/24/2019 Depression Screening 01/21/2025 01/22/2024 [...] Visit Diagnoses Diagnosis History of trauma to spine documented in this encounter Advance Directives Documents on File Type Date Recorded Patient Substance Abuse Services Director Expl 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 Care Teams Decontaminator Relationship Specialty Start Date End Date Andrea Mayer DO [address] [place] [address] PCP - General Family Medicine 05/26/23 documented as of this encounter
--- OUTSIDE RECORDS SUMMARY | 2024-03-26 10:41 | External Medical Summary | Summary of Care ---
Author Name Unknown Organization [facility] Address [address] [place] [address] Phone [phone] Care Team Providers Care Plumbing Contractor Name Role Phone Charles Mayer DO Primary Care Provider Encounter Details Date Type Department Care Team (Late st Contact Info) Description 03/24/2024 Orders Only Family Practice [facility] [address] [place] [address] Charles Mayer DO [address] [place] [address] Dysuria* Allergies Active Allergy Reactions Criticality Noted Date [...] inj 1,000 mcgIndications:B12 deficiency 1000 mcg IM [id number] 01/28/2024 12/29/2024 Active documented as of this [...] anemia 04/24/2017 Coronary artery disease invo lving [place] heart without angina pectoris 04/18/2016 Incomplete tear of right rotator cuff 04/15/2016 Overview (04/15/2016): 04/23 Dr Eduardo guerrero. 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 Not on file documented as of this encounter Plan of Treatment Upcoming Encounters Date Type Department Care Team (Late st Contact Info) Description 03/25/2024 1:00 PM EST Office Visit Urology Reji [facility]aines [address] [place] [address] Ruth Gonsales PA-C [address] [place] [address] 03/29/2024 11:00 AM EST Office Visit Family Practice [facility] [address] [address] Charles Mayer DO [address] [place] [address] 04/14/2024 9:00 AM EST Office Visit Palliative Medicine [facility] [address] [place] [address] Josseline Post MD [address] [facility] [place] [address] 04/15/2024 9:00 AM EST Office Visit Neurology [address] [place] [phone] Heather Franklin, DOMINIC [address] [facility] [place] [address] 05/20/2024 1:40 PM EST Office Visit [facility] [place] [address] Chrales Mayer, DO [address] [facility] [place] [address] 10/28/2024 11:40 AM EDT Office Visit [facility] [address] [facility] [place] [address] Charles Mayer, DO [address] [facility] [address] Pending Results Name Type Priority Associated Diagnoses Date /Time CULTURE, URINE, QUANTITATIVE Lab Routine Dysuria 03/24/2024 12:22 PM EST Scheduled Orders Name Type Priority Associated Diagnoses Orde r Schedule CULTURE, URINE, QUANTITATIVE Lab Routine Dysuria Expected: 03/24/2024, Expires: 03/24/2025 Scheduled Procedures Name Priority Associated Diagnoses Date/Ti me ESOPHAGOGASTRODUODENOSCOPY ( EGD), FLEXIBLE, TRANSORAL, DIAGNOSTIC Recall Esophageal reflux Health Maintenance Due Date Last Done Comments Cologuard 2008 Fecal Occult Blood Test 2008 Sigmoidoscopy 2008 Zoster Vaccines (1 of 2) 2013 Colonoscopy 06/03/2018 06/03/2017, 06/03/2017 Colorectal Cancer Screening 06/03/2018 COVID-19 Vaccine ( season) 2023 09/11/2020, 08/14/2020 Albumin/Creatinine Ratio 06/11/2024 06/12/2023, 06/06/2014 GFR 07/28/2024 01/28/2024, 08/, 10/27/2023, Additional history exists CKD HGB USE SMARTSET 60087 11/24/202411/24, 11/25/2023, 06/11/2023, Additional history exists CKD PHOS USE SMARTSET 08614 11/24/2024 08/2 , 06/11/2023, 12/24/2019 Depression Screening [...] as of this encounter Visit Diagnoses Diagnosis Dysuria- Primary documented in this encounter Advance Directives Documents on File Type Date Recorded Patient Site Supervising Technical Operator Expl 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 Care Teams Plumbing Contractor Relationship Specialty Start Date End Date Charles Mayer DO [address] [place] [address] PCP - General Family Medicine 05/26/23 documented as of this encounter
--- OUTSIDE RECORDS SUMMARY | 2024-03-26 10:41 | External Medical Summary | Summary of Care ---
Author Name Unknown Organization [facility] Address [address] [facility] [address] Phone [phone] Care Team Providers Care Airline Stewardess Name Role Phone Andrea Mayer DO Primary Care Provider Reason for Referral * Medication Prior Authorization - Denied Specialty Diagnoses / Procedures Referred By Hetaher neves Referred To Contact Diagnoses Other chronic pain Andrea Mayer DO [address] [place] [address] Phone: tel: fax: Referral ID Status Reason Start Date Expiration Date Visits Re quested Visits Authorized [id number] Denied 999 999 Reason for Visit * Reason Onset Date Comments Medication Pre-auth 03/17/2024 Oxycodone ER 10mg Encounter Details Date Type Department Care Team (Late st Contact Info) Description 03/17/2024 Telephone Family Practice [facility] [address] [place] [address] Andrea Mayer DO [address] [place] [address] Medication Pre-auth (Oxycodone ER 10mg) Allergies Active [...] before bedtime. 60 Tablet 03/17/20 24 Active Morphine Sulfate 15 MG Oral Tablet (Msir)Indicati ons:Other chronic pain Take 1 Tablet by mouth in the morning and 1 Tablet before bedtime. 60 Tablet 03/22/20 24 Active MORPHINE 5 MG/ML RENTAL CLERK TOOL AND EQUIPMENT SQ INFUSION (AMBULATORY)In dications:MEDI CATION USE AGREEMENT [...] 7:53 AM EST 02/16/20 24 024 Discontinued Mirtazapine 15 MG Oral Tablet (Remeron) Take 1 Tablet by mouth at bedtime. 30 Tablet 1 03/17/20 24 024 Discontinued Hospital, Clinic, or Other Facility Administered Medication Ordered Dose Route Frequency Start Date End Date Status Vitamin B-12 (Cyanocobalamin) inj 1,000 mcgIndications:B12 deficiency 1000 mcg IM [id number] 01/28/2024 12/29/2024 Active documented as of this [...] anemia 04/24/2017 Coronary artery disease invo lving [place] heart without angina pectoris 04/18/2016 Incomplete tear of right rotator cuff 04/15/2016 Overview (04/15/2016): 04/23 Dr Eduardo guerrero. Anxiety 09/28/2014 Diverticulitis of colon 09/16/2014 Intestinal postoperative nonabsorption 1 CALLAHAN RESEARCH OTHER*[id number] 09/14/2009 MEDICATION USE AGREEMENT 05/19/2008 Overview (05/19/2008): [...] S/p gastric bypass. 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 She stated the insurance will not pay for the Oxycontin ER. She is asking high priority. Thank you, Janell Jenkins CPhT Transportation Inspector [facility] ([facility]) 03/22/2024,1:19 PM * Telephone Encounter - Amanda Dawn bottled beverage inspector - 03/22/2024 8:14 AM EST P calling [...] extended release, tramadol ER Quantity limits apply Thanks, Amanda Dawn Transportation Inspector III [facility] ([facility]) 03/22/2024,8:15 AM * Telephone Encounter - Flavia Harkins LPN - 03/19/2024 3:48 PM EST Notes faxed * Telephone Encounter - Janell Jenkins CPhT - 03/19/2024 9:14 AM EST Patients insurance would like to inform the office that Oxycodone is requiring additional information: failure to other termite treater helper opioids. Prior authorization entered in [employer] at [facility]. EOC# [id number] Please send to [facility] before 4 pm. Thank you, Janell Jenkins CPhT Transportation Inspector [facility] ([facility]) 03/19/2024,9:14 AM * Telephone Encounter - Amanda Cortez bottled beverage inspector - 03/18/2024 4:11 PM EST Patients insurance would like to inform the office that oxycodone ER 10mg is requiring additional information: if pt has tried and failed two other termite treater helper opioids . Prior authorization entered in [employer] at [facility]. EOC# [id number] Please send to [facility] before end of day tomorrow 03-19-24. Thank you, Amanda Cortez CPhT Transportation Inspector II [facility] ([facility]) 03/18/2024, 4:11 PM * Telephone Encounter - Marilyn Cerna CPhT - 03/18/2024 9:10 AM EST Pharmacy calling to inform doctor that the patient's insurance will not pay for this medication without a completed prior authorization. Did confirm this information with the pharmacy. Pt's current insurance information is as follows: Patient name: Kana Thomas ID number: [id number] BIN number: [id number] PCN number: [id number] Group number: [id number] Subscriber name: Kana Thomas Primary or Secondary Insurance:Primary Medication: oxycodone ER 10mg Reason for Request: [place] required Pharmacy and phone number: [facility] [phone] Rx plan and phone number: [facility] [phone] Is this a new medication for the patient? No. How did the patient obtain the medication on the lastfill? It was covered last time on this same insurance. What alternative medications does the pharmacy have in stock?: Thank you, Marilyn Cerna CPhT Transportation Inspector [facility] ([facility]) 03/18/2024, 9:11 AM documented in this encounter Plan of Treatment Upcoming Encounters Date Type Department Care Team (Late st Contact Info) Description 03/25/2024 1:00 PM EST Office Visit Urology eRji Haines [address] [place] [address] Ruth Gonsales PA-C [address] [place] [address] 03/29/2024 11:00 AM EST Office Visit Family Practice [facility] [address] [address] Andrea Mayer DO [address] [place] [address] 04/14/2024 9:00 AM EST Office [facility] [address] [facility] [phone] Josseline Post MD [address] [facility] [place] [address] 04/15/2024 9:00 AM EST Office Visit Neurology [address] [place] [address] Heather Franklin CRNP [address] [facility] [place] [phone] 05/20/2024 1:40 PM EST Office Visit [facility] [address] [place] [address] Andrea Mayer, DO [address] [place] [address] 10/28/2024 11:40 AM EDT Office Visit [facility] [address] [place] [address] Andrea Mayer, DO [address] [place] [address] Scheduled Procedures Name Priority Associated Diagnoses Date/Ti [...] Additional history exists CKD HGB USE SMARTSET 96107 11/24/202411/24, 11/25/2023, 06/11/2023, Additional history exists CKD PHOS USE SMARTSET 68366 11/24/2024 08/2 , 06/11/2023, 12/24/2019 Depression Screening [...] Documents on File Type Date Recorded Patient Machine Shorthand Teacher Expl 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 Care Teams Airline Stewardess Relationship Specialty Start Date End Date Andrea Mayer DO [address] [place] [address] PCP - General Family Medicine 05/26/23 documented as of this encounter
--- OUTSIDE RECORDS SUMMARY | 2024-03-26 10:42 | External Medical Summary | Summary of Care ---
Author Name Unknown Organization [facility] Address [address] [place] [address] Phone [phone] Care Team Providers Care Backend Java Developer Name Role Phone Charles Mayer DO Primary Care Provider Reason for Visit * Reason Comments Medication Refill Encounter Details Date Type Department Care Team (Late st Contact Info) Description 03/02/2024 Refill Family Practice [facility] [address] [facility] [place] [address] Juany Franklin CRNP [address] [place] [address] Coronary artery disease involving wilton coronary artery of wilton heart without angina pectoris; Stage 3a chronic [...] as of this encounter (statuses as of 03/18/2024) Medications Pantoprazole Sodium 40 MG Oral Tablet [...] Tablet by mouth in the morning. 12/30/19 24 Active Cyanocobalamin 1000 MCG/ML Injection Kit Inject [...] Pain, Severe. 30 Tablet 03/02/20 24 Active Mirtazapine 30 MG Oral Tablet (Remeron) Take 1 Tablet by mouth at bedtime. 30 Tablet 1 4 2:23 PM EST 03/18/20 24 Active MORPHINE 5 MG/ML RISK MANAGEMENT SPECIALIST SQ INFUSION (AMBULATORY)In dications:MEDI CATION USE AGREEMENT Dose morphine per Pain management 1 Bolus Dosing Unit 5 10/05/19 14 024 Discontinued Cyclobenzaprin e HCl 10 MG Oral Tablet Take 1 Tablet by mouth in the morning and 1 Tablet before bedtime. Takes 1 1/2 tabs (15 mg) three times day. 01/14/20 24 024 Discontinued(R efill) Mirtazapine 15 MG Oral Tablet (Remeron) Take 1 Tablet by mouth at bedtime. 30 Tablet 1 01/29/20 24 024 Discontinued(R efill) Tamsulosin HCl 0.4 MG Oral Capsule (Flomax) Take 1 Capsule by mouth in the morning. 024 Discontinued(R efill) oxyCODONE HCl 10 MG Oral Tablet (Roxicodone)In dications:Othe r chronic pain Take 1 Tablet by mouth in the morning and 1 Tablet before bedtime. 60 Tablet 4 7:53 AM EST 02/16/20 24 024 Discontinued traZODone HCl 50 MG Oral Tablet (Desyrel)Indic ations:Coronar y artery disease involving wilton coronary artery of [place] heart without angina pectoris,Stage 3a chronic kidney disease (HCC),Gastroes ophageal reflux disease without esophagitis,De mentia (HCC) Take one-half tablet by mouth at bedtime as needed for insomnia 90 Tablet 3 4 12:00 PM EST 02/24/20 24 024 Discontinued(P atient preference/dis continuation) Hospital, Clinic, or Other Facility Administered Medication Ordered Dose Route Frequency Start Date End Date Status Vitamin B-12 (Cyanocobalamin) inj 1,000 mcgIndications:B12 deficiency 1000 mcg IM [id number] 01/28/2024 12/29/2024 Active documented as of this encounter (statuses as of 03/18/2024) Active Problems Problem Noted Date Diagnosed Date [...] anemia 04/24/2017 Coronary artery disease invo lving [place] heart without angina pectoris 04/18/2016 Incomplete tear of right rotator cuff 04/15/2016 Overview (04/15/2016): 04/23 Dr Eduardo guerrero. Anxiety 09/28/2014 Diverticulitis of colon 09/16/2014 Intestinal postoperative nonabsorption 1 CALLAHAN RESEARCH OTHER*[id number] 09/14/2009 MEDICATION USE AGREEMENT 05/19/2008 Overview (05/19/2008): See kim GERD (gastroesophageal reflux disease) Gout S/P gastric bypass S/P spinal fusion documented as of this encounter (statuses as of 03/18/2024) Resolved Problems Problem Noted Date Diagnosed Date [...] Tobacco use disorder 09/18/2009 011 Bariatric Proteinuria Research*[id number] 09/14/2009 12/27/2009 Organic sleep disorder 06/22/200910/10 Morbid [...] as of this encounter (statuses as of 03/18/2024) Immunizations Name Administration Dates Next Due COVID-19 [...] 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 Appears he's had numerous hospitalizations since I last saw him. Admitted to [facility] from to 02/07/2024 for treatment of acute metabolic encephalopathy and UTI. Admitted again from 02/10 through 02/14/2024 or treatment of increased confusion. Infectious work-up negative. Recommended he follow-up with PCP and request a Palliative Care consult. Admitted again to [facility] from 02/24 through 02/26/2024 for evaluation of chest pain. Cardiac work-up unremarkable and recommended he be discharged home and follow-up with CArdiology. Seen by Dr. Joy at [facility] cardiology. Was admitted to [facility] again from 03/09/2024 through 03/09/2024 for increased confusion and urinary retention with mild BLANCO, parra catheter placed and recommended he follow-up with urology. I'm concerned about patients repeated hospitalizations since I last saw him on 01/14/2024 (4 hospitalizations in the last 2 months). Palliative care is now involved. I will reach out to patient's nurse case management Annette Meadows to see ifhe would qualify for additional services (possibly [facility]?). * Addendum Note - uJany Franklin CRNP - 03/18/2024 8:07 AM ESTAddended by: JUANY FRANKLIN on: 03/18/2024 08:07 AM Modules accepted: Orders * Telephone Encounter [...] mirtazipine. Thank you, Porsha Austin CPhT II [employer] Specialist [facility] ([facility]) 03/03/2024, 1:12 [...] appropriate. * Telephone Encounter - Yuval Botello [facility] - 03/03/2024 8:55 AM EST Pending Prescriptions: [...] preferred pharmacy and medication before forwarding?yes Pharmacy: [facility] Pending Prescriptions: Disp Refills [...] PM EST Office Visit Urology Reji Haines [address] [place] [address] Ruth Gonsales PA-C [place] [address] 03/29/2024 11:00 AM EST Office Visit [facility] [address] [place] [address] Charles Mayer, [address] [place] [address] 04/14/2024 9:00 AM EST Office Visit Palliative Medicine [facility] [address] [place] [phone] Josseline Post MD [address] [place] [address] 04/15/2024 9:00 AM EST Office Visit Neurology [address] [place] [address] Juany Franklin CRNP [address] [place] [address] 05/20/2024 1:40 PM EST Office Visit [facility] [address] [place] [address] Charles Mayer, [address] [place] [address] 10/28/2024 11:40 AM EDT Office Visit [facility] [address] [place] [address] Charles Mayer DO [address] [facility] [place] [address] Scheduled Procedures Name Priority Associated Diagnoses Date/Ti [...] Additional history exists CKD HGB USE SMARTSET 02097 11/24/202411/24, 11/25/2023, 06/11/2023, Additional history exists CKD PHOS USE SMARTSET 03866 11/24/202411/06, 06/11/2023, 12/24/2019 Depression Screening 01/21/2025 01/22/2024 [...] Visit Diagnoses Diagnosis Coronary artery disease involving wilton coronary artery of w[place] heart without angina pectoris Stage 3a chronic kidney disease Gastroesophageal reflux disease without esophagitis Esophageal reflux Dementia (HCC) Dementia, unspecified, without behavioral disturbance documented in this encounter Advance Directives Documents on File Type Date Recorded Patient Pier Master Expl 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 Care Teams Backend Java Developer Relationship Specialty Start Date End Date Charles Mayer DO [address] [place] [address] PCP - General Family Medicine 05/26/23 documented as of this encounter
--- OUTSIDE RECORDS SUMMARY | 2024-03-26 10:42 | External Medical Summary | Summary of Care ---
Author Name Unknown Organization [facility] Address [address] [address] Phone [phone] Care Team Providers Care Foreman Or Supervisor And Operator Name Role Phone Charles Mayer DO Primary Care Provider Reason for Referral * Medication Prior Authorization - Pending Review Specialty Diagnoses / Procedures Referred By Heather neves Referred To Contact Diagnoses Other chronic pain Charles Mayer DO [address] [place] [address] Phone: tel: fax: Referral ID Status Reason Start Date Expiration Date V isits Requested Visits Authorized [id number] Pending Review 999 999 Reason for Visit * Reason Onset Date Comments Medication Pre-auth 03/17/2024 Oxycodone ER 10mg Encounter Details Date Type Department Care Team (Late st Contact Info) Description 03/17/2024 Telephone Family Practice [facility] [address] [place] [address] Charles Mayer DO [address] [place] [address] Medication Pre-auth (Oxycodone ER 10mg) Allergies Active [...] as of this encounter (statuses as of 03/19/2024) Medications Pantoprazole Sodium 40 MG Oral Tablet [...] Copper Caps 2 MG Oral Capsule (copper gluconate)Hcina cations:Copper deficiency Take 8 mg of elemental [...] before bedtime. 60 Tablet 03/17/20 24 Active MORPHINE 5 MG/ML ROUGH PLANER TENDER SQ INFUSION (AMBULATORY)In dications:MEDI CATION USE AGREEMENT [...] inj 1,000 mcgIndications:B12 deficiency 1000 mcg IM [id number] 01/28/2024 12/29/2024 Active documented as of this encounter (statuses as of 03/19/2024) Active Problems Problem Noted Date Diagnosed Date [...] anemia 04/24/2017 Coronary artery disease invo lving [place] heart without angina pectoris 04/18/2016 Incomplete tear of right rotator cuff 04/15/2016 Overview (04/15/2016): 04/23 Dr Eduardo guerrero. Anxiety 09/28/2014 Diverticulitis of colon 09/16/2014 Intestinal postoperative nonabsorption 1 CALLAHAN RESEARCH OTHER*[id number] 09/14/2009 MEDICATION USE AGREEMENT 05/19/2008 Overview (05/19/2008): See kim GERD (gastroesophageal reflux disease) Gout S/P gastric bypass S/P spinal fusion documented as of this encounter (statuses as of 03/19/2024) Resolved Problems Problem Noted Date Diagnosed Date Resolved Date Kidney disease, chronic, sta ge III (GFR 30-59 ml/min) 11/16/2018 02/17/2020 Overview: Per CKD protocol Well adult exam 04/18/2016 09/24/2018 Overview (06/01/2018): ??Need eval hypoglycemia? S/p gastric bypass. Pain mgmt Dr Syed Asencio--[facility] +pain pump 02/22 EGD-Gastric bypass [...] Tobacco use disorder 09/18/2009 011 Bariatric Proteinuria Research*[id number] 09/14/2009 12/27/2009 Organic sleep disorder 06/22/200910/10 Morbid [...] as of this encounter (statuses as of 03/19/2024) Immunizations Name Administration Dates Next Due COVID-19 [...] No 01/22/2024 Does the household have a [facility] source of income? 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 Prior authorization entered in Prompt[facility] at [facility]. EOC# [id number] Please send to [facility] before 4 pm. Thank you, Janell Jenkins CPhT Absorber Operator [facility] ([facility]) 03/19/2024,9:14 AM * Telephone Encounter - Amanda Cortez PHARM Tech - 03/18/2024 4:11 PM EST Patients insurance would like to inform the office that oxycodone ER 10mg is requiring additional information: if pt has tried and failed two other senior care opioids . Prior authorization entered in PromptPA at [facility]. EOC# [id number] Please send to [facility] before end of day tomorrow 03-19-24. Thank you, Amanda Cortez CPhT Absorber Operator II [facility] ([facility]) 03/18/2024, 4:11 PM * Telephone Encounter - Marilyn Cerna CPhT - 03/18/2024 9:10 AM EST Pharmacy calling to inform doctor that the patient's insurance will not pay for this medication without a completed prior authorization. Did confirm this information with the pharmacy. Pt's current insurance information is as follows: Patient name: Kana Thomas ID number: [id number] BIN number: [id number] PCN number: [id number] Group number: [id number] Subscriber name: Kana Thomas Primary or Secondary Insurance:Primary Medication: oxycodone ER 10mg Reason for Request: [place] required Pharmacy and phone number: [facility] [phone] Rx plan and phone number: [facility] [phone] Is this a new medication for the patient? No. How did the patient obtain the medication on the lastfill? It was covered last time on this same insurance. What alternative medications does the pharmacy have in stock?: Thank you, Marilyn Cerna CPhT Absorber Operator [facility] ([facility]) 03/18/2024, 9:11 AM documented in this encounter Plan of Treatment Upcoming Encounters Date Type Department Care Team (Late st Contact Info) Description 03/25/2024 1:00 PM EST Office Visit Urology Reji Haines [address] [place] [address] Ruth Gonsales PA-C [address] [place] [address] 03/29/2024 11:00 AM EST Office Visit [facility] [address] [place] [address] Charles Mayer, [address] [place] [address] 04/14/2024 9:00 AM EST Office Visit Palliative Medicine [facility] [address] [place] [phone] Josseline Post MD [address] [facility] [place] [id number] 04/15/2024 9:00 AM EST Office Visit Neurology [address] [place] [address] Heather Franklin CRNP [address] [place] [address] 05/20/2024 1:40 PM EST Office Visit [facility] [address] [place] [address] Charles Mayer, [address] [place] [address] 10/28/2024 11:40 AM EDT Office Visit [facility] [address] [place] [address] Charles Mayer, DO [address] [place] [address] Scheduled Procedures Name Priority Associated Diagnoses Date/Ti [...] Additional history exists CKD HGB USE SMARTSET 42282 11/24/202411/24, 11/25/2023, 06/11/2023, Additional history exists CKD PHOS USE SMARTSET 50017 11/24/202411/06, 06/11/2023, 12/24/2019 Depression Screening 01/21/2025 01/22/2024 [...] Documents on File Type Date Recorded Patient Doctor Of Nursing Practice Expl 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 Care Teams Foreman Or Supervisor And Operator Relationship Specialty Start Date End Date Charles Mayer DO [address] [place] [address] PCP - General Family Medicine 05/26/23 documented as of this encounter
--- OUTSIDE RECORDS SUMMARY | 2024-03-26 10:42 | External Medical Summary | Summary of Care ---
Author Name Unknown Organization [facility] Address [address] [facility] [address] Phone [phone] Care Team Providers Care Corporate Travel Coordinator Name Role Phone Charles Mayer DO Primary Care Provider Reason for Referral * Medication Prior Authorization - Pending Review Specialty Diagnoses / Procedures Referred By Heather neves Referred To Contact Diagnoses Other chronic pain Charles Mayer DO [address] [place] [address] Phone: tel: fax: Referral ID Status Reason Start Date Expiration Date V isits Requested Visits Authorized [id number] Pending Review 999 999 Reason for Visit * Reason Onset Date Comments Medication Pre-auth 03/17/2024 Oxycodone ER 10mg Encounter Details Date Type Department Care Team (Late st Contact Info) Description 03/17/2024 Telephone Family Practice [facility] [address] [place] [address] Charles Mayer DO [address] [place] [address] Medication Pre-auth (Oxycodone ER 10mg) Allergies Active [...] Tablet 03/17/20 24 Active MORPHINE 5 MG/ML STUDENT EDUCATION SPECIALIST SQ INFUSION (AMBULATORY)In dications:MEDI CATION USE [...] inj 1,000 mcgIndications:B12 deficiency 1000 mcg IM [id number] 01/28/2024 12/29/2024 Active documented as of this [...] anemia 04/24/2017 Coronary artery disease invo lving [place] heart without angina pectoris 04/18/2016 Incomplete tear of right rotator cuff 04/15/2016 Overview (04/15/2016): 04/23 Dr Eduardo guerrero. Anxiety 09/28/2014 Diverticulitis of colon 09/16/2014 Intestinal postoperative nonabsorption 1 CALLAHAN RESEARCH OTHER*[id number] 09/14/2009 MEDICATION USE AGREEMENT 05/19/2008 Overview (05/19/2008): [...] Tobacco use disorder 09/18/2009 011 Bariatric Proteinuria Research*[id number] 09/14/2009 12/27/2009 Organic sleep disorder 06/22/200910/10 Morbid [...] No 01/22/2024 Does the household have a [facility] source of income? 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 Prior authorization entered in Prom[facility]PA at [facility]. EOC# [id number] Please send to [facility] before 4 pm. Thank you, Janell Jenkins CPhT [employer]ed Circuit Boards Contact Printer [facility] ([facility]) 03/19/2024,9:14 AM * Telephone Encounter - Amanda Cortez air director - 03/18/2024 4:11 PM EST Patients insurance would like to inform the office that oxycodone ER 10mg is requiring additional information: if pt has tried and failed two other halfway opioids . Prior authorization entered in Noom at [facility]. EOC# [id number] Please send to [facility] before end of day tomorrow 03-19-24. Thank you, Amanda Cortez CPhT [employer] Boards Contact Printer II [facility]) 03/18/2024, 4:11 PM * Telephone Encounter - Marilyn Cerna CPhT - 03/18/2024 9:10 AM EST Pharmacy calling to inform doctor that the patient's insurance will not pay for this medication without a completed prior authorization. Did confirm this information with the pharmacy. Pt's current insurance information is as follows: Patient name: Kana Thomas ID number: [id number] BIN number: [id number] PCN number: [id number] Group number: [id number] Subscriber name: Kana Thomas Primary or Secondary Insurance:Primary Medication: oxycodone ER 10mg Reason for Request: [place] required Pharmacy and phone number: [facility] [phone] Rx plan and phone number: [facility] [phone] Is this a new medication for the patient? No. How did the patient obtain the medication on the lastfill? It was covered last time on this same insurance. What alternative medications does the pharmacy have in stock?: Thank you, Marilyn Cerna CPhT [employer] Boards Contact Printer [facility]) 03/18/2024, 9:11 AM documented in this encounter Plan of Treatment Upcoming Encounters Date Type Department Care Team (Late st Contact Info) Description 03/25/2024 1:00 PM EST Office Visit Urology Reji Haines [address] [place] [address] [address] Ruth Gonsales PA-C [address] [place] [address] 03/29/2024 11:00 AM EST Office Visit Family Practice [facility] [address] [place] [address] Charles Mayer DO [address] [place] [address] 04/14/2024 9:00 AM EST Office Visit Palliative [facility] [address] [facility] [phone] Josseline Post MD [address] [facility] [place] [address] 04/15/2024 9:00 AM EST Office Visit Neurology [address] [place] [address] Heather Franklin CRNP [address] [facility] [place] [address] 05/20/2024 1:40 PM EST Office Visit [facility] [address] [place] [address] Charles Mayer, DO [address] [place] [address] 10/28/2024 11:40 AM EDT Office Visit [facility] [address] [place] [address] Charles Mayer, DO [address] [facility] [place] [address] Scheduled Procedures Name Priority Associated Diagnoses Date/Ti me ESOPHAGOGASTRODUODENOSCOPY ( EGD), FLEXIBLE, TRANSORAL, DIAGNOSTIC Recall Esophageal reflux Health Maintenance Due Date Last Done Comments Cologuard 2008 Fecal Occult Blood Test 2008 Sigmoidoscopy 2008 Zoster Vaccines (1 of 2) 2013 Colonoscopy 06/03/2018 06/03/2017, 06/03/2017 Colorectal Cancer Screening 06/03/2018 COVID-19 Vaccine ( season) 2023 09/11/2020, 08/14/2020 Albumin/Creatinine Ratio 06/11/2024 06/12/2023, 0606/2014 GFR 07/28/2024 01/28/2024, 08, 10/27/2023, Additional history exists CKD HGB USE SMARTSET 44488 11/24/202411/24, 11/25/2023, 06/11/2023, Additional history exists CKD PHOS USE SMARTSET 79215 11/24/2024 08/2 , 06/11/2023, 12/24/2019 Depression Screening [...] Documents on File Type Date Recorded Patient Nuclear Technologist Expl 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 Care Teams Corporate Travel Coordinator Relationship Specialty Start Date End Date Charles Mayer DO [address] [place] [address] PCP - General Family Medicine 05/26/23 documented as of this encounter
--- OUTSIDE RECORDS SUMMARY | 2024-03-26 10:42 | External Medical Summary | Summary of Care ---
Author Name Unknown Organization [facility] Address [address] [place] [address] Phone [phone] Care Team Providers Care Vacuum Technician Name Role Phone Charles Mayer DO Primary Care Provider Reason for Visit * Reason Comments Medication Refill Encounter Details Date Type Department Care Team (Late st Contact Info) Description 03/02/2024 Refill Family Practice [facility] [address] [facility] [place] [address] Juany Franklin CRNP [address] [place] [address] Coronary artery disease involving nikolai coronary artery of nikolai heart without angina pectoris; Stage 3a chronic [...] EST 03/18/20 24 Active MORPHINE 5 MG/ML DAY CAMP COUNSELOR SQ INFUSION (AMBULATORY)In dications:MEDI CATION USE AGREEMENT [...] Tablet (Desyrel)Indic ations:Coronar y artery disease involving nikolai coronary artery of nikolai heart without angina pectoris,Stage 3a chronic kidney [...] inj 1,000 mcgIndications:B12 deficiency 1000 mcg IM [id number] 01/28/2024 12/29/2024 Active documented as of this [...] anemia 04/24/2017 Coronary artery disease invo lving nikolai heart without angina pectoris 04/18/2016 Incomplete tear of right rotator cuff 04/15/2016 Overview (04/15/2016): 04/23 Dr Eduardo guerrero. Anxiety 09/28/2014 Diverticulitis of colon 09/16/2014 Intestinal postoperative nonabsorption 1 CALLAHAN RESEARCH OTHER*[id number] 09/14/2009 MEDICATION USE AGREEMENT 05/19/2008 Overview (05/19/2008): [...] bypass. Pain mgmt Dr Syed Asencio--[facility] +pain pump 02/22 EGD-Gastric bypass with [...] Tobacco use disorder 09/18/2009 011 Bariatric Proteinuria Research*[id number] 09/14/2009 12/27/2009 Organic sleep disorder 06/22/200910/10 Morbid [...] since I last saw him. Admitted to [facility] from to 02/07/2024 for treatment of acute metabolic encephalopathy and UTI. Admitted again from 02/10 through 02/14/2024 or treatment of increased confusion. Infectious work-up negative. Recommended he follow-up with PCP and request a Palliative Care consult. Admitted again to [facility] from 02/24 through 02/26/2024 for evaluation of chest pain. Cardiac work-up unremarkable and recommended he be discharged home and follow-up with CArdiology. Seen by Dr. Joy at [facility] cardiology. Was admitted to [facility] again from 03/09/2024 through 03/09/2024 for increased confusion and urinary retention with mild BLANCO, parra catheter placed and recommended he follow-up with urology. I'm concerned about patients repeated hospitalizations since I last saw him on 01/14/2024 (4 hospitalizations in the last 2 months). Palliative care is now involved. I will reach out to patient's caser Annette Meadows to see ifhe would qualify for additional services (possibly [facility]?). * Addendum Note - Juany Franklin CRNP - 03/18/2024 8:07 AM ESTAddended [...] mirtazipine. Thank you, Porsha Austin CPhT II Audio/Video Technician [facility] 03/03/2024, 1:12 [...] appropriate. * Telephone Encounter - Yuval Botello [facility] - 03/03/2024 8:55 AM EST Pending Prescriptions: [...] preferred pharmacy and medication before forwarding?yes Pharmacy: [facility] Pending Prescriptions: Disp Refills [...] [place] [address] [address] Ruth Gonsales PA-C [place] [address] 03/29/2024 11:00 AM EST Office Visit [facility] [address] [place] [address] Charles Mayer, [address] [place] [address] 04/14/2024 9:00 AM EST Office Visit Palliative Medicine [facility] [address] [place] [phone] Josseline Post MD [address] [place] [address] 04/15/2024 9:00 AM EST Office Visit Neurology [address] [place] [address] Juany Franklin CRNP [address] [place] [address] 05/20/2024 1:40 PM EST Office Visit [facility] [address] [place] [address] Charles Mayer, [address] [place] [address] 10/28/2024 11:40 AM EDT Office Visit [facility] [address] [place] [address] Charles Mayer DO [address] [facility] [place] [address] Scheduled Procedures Name Priority Associated Diagnoses Date/Ti [...] Additional history exists CKD HGB USE SMARTSET 83230 11/24/202411/24, 11/25/2023, 06/11/2023, Additional history exists CKD PHOS USE SMARTSET 04182 11/24/202411/06, 06/11/2023, 12/24/2019 Depression Screening 01/21/2025 01/22/2024 [...] Visit Diagnoses Diagnosis Coronary artery disease involving nikolai coronary artery of nikolai heart without angina pectoris Stage 3a chronic kidney disease Gastroesophageal reflux disease without esophagitis Esophageal reflux Dementia (HCC) Dementia, unspecified, without behavioral disturbance documented in this encounter Advance Directives Documents on File Type Date Recorded Patient Tank Assembler Expl 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 Care Teams Vacuum Technician Relationship Specialty Start Date End Date Charles Mayer DO [address] [place] [address] PCP - General Family Medicine 05/26/23 documented as of this encounter
--- OUTSIDE RECORDS SUMMARY | 2024-03-26 10:42 | External Medical Summary | Summary of Care ---
Author Name Unknown Organization [facility] Address [address] [address] Phone [phone] Care Team Providers Care Clinical Exercise Physiologist Name Role Phone Charles Mayer DO Primary Care Provider Reason for Referral * Medication Prior Authorization - Denied Specialty Diagnoses / Procedures Referred By Heather neves Referred To Contact Diagnoses Other chronic pain Charles Mayer DO [address] [place] [address] Phone: tel: fax: Referral ID Status Reason Start Date Expiration Date Visits Re quested Visits Authorized [id number] Denied 999 999 Reason for Visit * Reason Onset Date Comments Medication Pre-auth 03/17/2024 Oxycodone ER 10mg Encounter Details Date Type Department Care Team (Late st Contact Info) Description 03/17/2024 Telephone Family Practice [facility] [address] [place] [address] Charles Mayer DO [address] [place] [address] Medication Pre-auth (Oxycodone ER 10mg) Allergies Active [...] 60 Tablet 03/17/20 Active MORPHINE 5 MG/ML CABINET FINISHER SQ INFUSION (AMBULATORY)In dications:MEDI CATION USE AGREEMENT [...] inj 1,000 mcgIndications:B12 deficiency 1000 mcg IM [id number] 01/28/2024 12/29/2024 Active documented as of this [...] anemia 04/24/2017 Coronary artery disease invo lving [place] heart without angina pectoris 04/18/2016 Incomplete tear of right rotator cuff 04/15/2016 Overview (04/15/2016): 04/23 Dr Eduardo guerrero. Anxiety 09/28/2014 Diverticulitis of colon 09/16/2014 Intestinal postoperative nonabsorption 1 CALLAHAN RESEARCH OTHER*[id number] 09/14/2009 MEDICATION USE AGREEMENT 05/19/2008 Overview (05/19/2008): [...] Tobacco use disorder 09/18/2009 011 Bariatric Proteinuria Research*[id number] 09/14/2009 12/27/2009 Organic sleep disorder 06/22/200910/10 Morbid [...] No 01/22/2024 Does the household have a [facility] source [facility] income? 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 She stated the insurance will not pay for the Oxycontin ER. She is asking high priority. Thank you, Janell Jenkins CPhT [employer] Former [facility] 03/22/2024,1:19 PM * Telephone Encounter - Amanda Dawn embedded systems software engineer - 03/22/2024 8:14 AM EST [facility] calling to advise Do not see medical record documentation of therapeutic failure on, intolerance to, or contraindication to two formulary long-acting opioids Formulary alternatives include: Short-Acting Opioids: acetaminophen-codeine, hydrocodoneAPAP, hydromorphone, morphine immediate release, oxycodone- APAP, oxycodone immediate release, tramadol Long-Acting Opioids: buprenorphine patch, fentanyl patch (12.5 mcg/hr, 25 mcg/hr, 50 mcg/hr,75 mcg/hr, 100 mcg/hr), morphine extended release, tramadol ER Quantity limits apply ThanksAmanda [employer] Former III [facility]) 03/22/2024,8:15 AM * Telephone Encounter - Flavia Harkins LPN - 03/19/2024 3:48 PM EST Notes faxed * Telephone Encounter - Janell Jenkins CPhT - 03/19/2024 9:14 AM EST Patients insurance would like to inform the office that Oxycodone is requiring additional information: failure to other long-term opioids. Prior authorization entered in PromptPA at [facility]. EOC# [id number] Please send to [facility] before 4 pm. Thank you, Janell Jenkins CPhT [employer] Former [facility] 03/19/2024,9:14 AM * Telephone Encounter - Amanda Cortez PHARM Tech - 03/18/2024 4:11 PM EST Patients insurance would like to inform the office that oxycodone ER 10mg is requiring additional information: if pt has tried and failed two other watermelon harvesting supervisor opioids . Prior authorization entered in PromptPA at [facility]. EOC# [id number] Please send to [facility] before end of day tomorrow 03-19-24. Thank you, Amanda Cortez CPhT [employer] Former II [facility] 03/18/2024, 4:11 PM * Telephone Encounter - Marilyn Cerna CPhT - 03/18/2024 9:10 AM EST Pharmacy calling to inform doctor that the patient's insurance will not pay for this medication without a completed prior authorization. Did confirm this information with the pharmacy. Pt's current insurance information is as follows: Patient name: Kana Thomas ID number: [id number] BIN number: [id number] PCN number: [id number] Group number: [id number] Subscriber name: Kana Thomas Primary or Secondary Insurance:Primary Medication: oxycodone ER 10mg Reason for Request: [place] required Pharmacy and phone number: [facility] [phone] Rx plan and phone number: [facility] [phone] Is this a new medication for the patient? No. How did the patient obtain the medication on the lastfill? It was covered last time on this same insurance. What alternative medications does the pharmacy have in stock?: Thank you, Marilyn Cerna CPhT [employer] Former [facility] 03/18/2024, 9:11 AM documented in this encounter Plan of Treatment Upcoming Encounters Date Type Department Care Team (Late st Contact Info) Description 03/25/2024 1:00 PM EST Office Visit Urology Reji Haines [address] [place] [address] [address] Ruth Gonsales PA-C [address] [place] [address] 03/29/2024 11:00 AM EST Office Visit [facility] [address] [place] [address] Charles Maeyr, DO [address] [place] [address] 04/14/2024 9:00 AM EST Office Visit Palliative Medicine [facility] [address] [phone] Josseline Post MD [address] [place] [address] 04/15/2024 9:00 AM EST Office Visit Neurology [address] [place] [address] Heather Franklin CRNP [address] [place], [place] [phone] 05/20/2024 1:40 PM EST Office Visit [facility] [address] [place] [address] Charles Mayer, [address] [place] [address] 10/28/2024 11:40 AM EDT Office Visit [facility] [address] [place] [address] Charles Mayer, [address] [place] [address] Scheduled Procedures Name Priority Associated Diagnoses Date/Ti [...] Additional history exists CKD HGB USE SMARTSET 76046 11/24/202411/24, 11/25/2023, 06/11/2023, Additional history exists CKD PHOS USE SMARTSET 79787 11/24/202411/06, 06/11/2023, 12/24/2019 Depression Screening 01/21/2025 01/22/2024 [...] Documents on File Type Date Recorded Patient Environmental Resource Specialist Expl 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 Care Teams Clinical Exercise Physiologist Relationship Specialty Start Date End Date Charles Mayer DO [address] [place] [address] PCP - General Family Medicine 05/26/23 documented as of this encounter
--- OUTSIDE RECORDS SUMMARY | 2024-03-26 10:42 | External Medical Summary | Summary of Care ---
Author Name Unknown Organization [facility] Address [address] [address] Phone [phone] Care Team Providers Care Proof Reader Name Role Phone Charles Mayer DO Primary Care Provider Reason for Referral * Medication Prior Authorization - Denied Specialty Diagnoses / Procedures Referred By Heather neves Referred To Contact Diagnoses Other chronic pain Charles Mayer DO [address] [place] [address] Phone: tel: fax: Referral ID Status Reason Start Date Expiration Date Visits Re quested Visits Authorized [id number] Denied 999 999 Reason for Visit * Reason Onset Date Comments Medication Pre-auth 03/17/2024 Oxycodone ER 10mg Encounter Details Date Type Department Care Team (Late st Contact Info) Description 03/17/2024 Telephone Family Practice [facility] [address] [place] [address] Charles Mayer DO [address] [place] [address] Medication Pre-auth (Oxycodone ER 10mg) Allergies Active [...] Sodium 40 MG Oral Tablet Delayed Release (Protonix)Hcina cations:Acute gastric ulcer with hemorrhage TAKE ONE [...] 60 Tablet 03/17/20 Active MORPHINE 5 MG/ML ASSEMBLY LINE INSPECTOR SQ INFUSION (AMBULATORY)In dications:MEDI CATION USE [...] inj 1,000 mcgIndications:B12 deficiency 1000 mcg IM [id number] 01/28/2024 12/29/2024 Active documented as of this [...] anemia 04/24/2017 Coronary artery disease invo lving [place] heart without angina pectoris 04/18/2016 Incomplete tear of right rotator cuff 04/15/2016 Overview (04/15/2016): 04/23 Dr Eduardo guerrero. Anxiety 09/28/2014 Diverticulitis of colon 09/16/2014 Intestinal postoperative nonabsorption 1 CALLAHAN RESEARCH OTHER*[id number] 09/14/2009 MEDICATION USE AGREEMENT 05/19/2008 Overview (05/19/2008): [...] bypass. Pain mgmt Dr Syed Asencio--[facility] +pain pump 02/22 EGD-Gastric bypass with [...] Tobacco use disorder 09/18/2009 011 Bariatric Proteinuria Research*[id number] 09/14/2009 12/27/2009 Organic sleep disorder 06/22/200910/10 Morbid [...] No 01/22/2024 Does the household have a [facility]? 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 She stated the insurance will not pay for the Oxycontin ER. She is asking high priority. Thank you, Janell Jenkins CPhT Safety Supervisor [facility] 03/22/2024,1:19 PM * Telephone Encounter - Amanda Dawn bible reader - 03/22/2024 8:14 AM EST [facility] calling to advise Do not see [...] release, tramadol ER Quantity limits apply ThanksAmanda Safety Supervisor III [facility]) 03/22/2024,8:15 AM * Telephone Encounter - Flavia Harkins LPN - 03/19/2024 3:48 PM EST Notes faxed * Telephone Encounter - Janell Jenkins CPhT - 03/19/2024 9:14 AM EST Patients insurance would like to inform the office that Oxycodone is requiring additional information: failure to other half-way opioids. Prior authorization entered in PromptPA at [facility]. EOC# [id number] Please send to [facility] before 4 pm. Thank you, Janell Jenkins CPhT Safety Supervisor [facility] 03/19/2024,9:14 AM * Telephone Encounter - Amanda Cortez PHARM Tech - 03/18/2024 4:11 PM EST Patients insurance would like to inform the office that oxycodone ER 10mg is requiring additional information: if pt has tried and failed two other buttermaker continuous churn opioids . Prior authorization entered in PromptPA at [facility]. EOC# [id number] Please send to [facility] before end of day tomorrow 03-19-24. Thank you, Amanda Cortez CPhT Safety Supervisor II [facility] 03/18/2024, 4:11 PM * Telephone Encounter - Marilyn Cerna CPhT - 03/18/2024 9:10 AM EST Pharmacy calling to inform doctor that the patient's insurance will not pay for this medication without a completed prior authorization. Did confirm this information with the pharmacy. Pt's current insurance information is as follows: Patient name: Kana Thomas ID number: [id number] BIN number: [id number] PCN number: [id number] Group number: [id number] Subscriber name: Kana Thomas Primary or Secondary Insurance:Primary Medication: oxycodone ER 10mg Reason for Request: [place] required Pharmacy and phone number: [facility] [phone] Rx plan and phone number: [facility] [phone] Is this a new medication for the patient? No. How did the patient obtain the medication on the lastfill? It was covered last time on this same insurance. What alternative medications does the pharmacy have in stock?: Thank you, Marilyn Cerna CPhT Safety Supervisor [facility] 03/18/2024, 9:11 AM documented in this encounter Plan of Treatment Upcoming Encounters Date Type Department Care Team (Late st Contact Info) Description 03/25/2024 1:00 PM EST Office Visit Urology eRji Haines [address] [address] Ruth Gonsales PA-C [address] [place] [address] 03/29/2024 11:00 AM EST Office Visit [facility] [address] [place] [address] Charles Mayer, DO [address] [place] [address] 04/14/2024 9:00 AM EST Office Visit Palliative Medicine [facility] [address] [place] [phone] Josseline Post MD [address] [place] [address] 04/15/2024 9:00 AM EST Office Visit Neurology [address] [place] [address] Heather Franklin CRNP [address] [place], [place] [phone] 05/20/2024 1:40 PM EST Office Visit [facility] [address] [place] [address] Charles Mayer, [address] [place] [address] 10/28/2024 11:40 AM EDT Office Visit [facility] [address] [place] [address] Charles Mayer, [address] [place] [address] Scheduled Procedures Name Priority Associated Diagnoses Date/Ti [...] Additional history exists CKD HGB USE SMARTSET 66717 11/24/202411/24, 11/25/2023, 06/11/2023, Additional history exists CKD PHOS USE SMARTSET 11035 11/24/202411/06, 06/11/2023, 12/24/2019 Depression Screening 01/21/2025 01/22/2024 [...] Documents on File Type Date Recorded Patient Record Changer Tester Expl 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 Care Teams Proof Reader Relationship Specialty Start Date End Date Charles Mayer DO [address] [address] PCP - General Family Medicine 05/26/23 documented as of this encounter
--- OUTSIDE RECORDS SUMMARY | 2024-03-26 10:42 | External Medical Summary | Summary of Care ---
Author Name Unknown Organization [facility] Address [address] [facility] [facility] [address] Phone [phone] Care Team Providers Care Fuel Efficient Aircraft Designer Name Role Phone Charles Mayer DO Primary Care Provider Reason for Referral * Medication Prior Authorization - Pending Review Specialty Diagnoses / Procedures Referred By Heather neves Referred To Contact Diagnoses Other chronic pain Charles Mayer DO [address] [place] [address] Phone: tel: fax: Referral ID Status Reason Start Date Expiration Date V isits Requested Visits Authorized [id number] Pending Review 999 999 Reason for Visit * Reason Onset Date Comments Medication Pre-auth 03/17/2024 Oxycodone ER 10mg Encounter Details Date Type Department Care Team (Late st Contact Info) Description 03/17/2024 Telephone Family Practice [facility] [address] [place] [address] Charles Mayer DO [address] [place] [address] Medication Pre-auth (Oxycodone ER 10mg) Allergies Active [...] Tablet 03/17/20 24 Active MORPHINE 5 MG/ML REINFORCING BAR SETTER SQ INFUSION (AMBULATORY)In dications:MEDI CATION USE AGREEMENT [...] inj 1,000 mcgIndications:B12 deficiency 1000 mcg IM [id number] 01/28/2024 12/29/2024 Active documented as of this [...] anemia 04/24/2017 Coronary artery disease invo lving [place] heart without angina pectoris 04/18/2016 Incomplete tear of right rotator cuff 04/15/2016 Overview (04/15/2016): 04/23 Dr Eduardo guerrero. Anxiety 09/28/2014 Diverticulitis of colon 09/16/2014 Intestinal postoperative nonabsorption 1 CALLAHAN RESEARCH OTHER*[id number] 09/14/2009 MEDICATION USE AGREEMENT 05/19/2008 Overview (05/19/2008): [...] Tobacco use disorder 09/18/2009 011 Bariatric Proteinuria Research*[id number] 09/14/2009 12/27/2009 Organic sleep disorder 06/22/200910/10 Morbid [...] No 01/22/2024 Does the household have a [facility] source of income? 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 Prior authorization entered in PromptPA at [facility]. EOC# [id number] Please send to [facility] before end of day tomorrow 03-19-24. Thank you, Amanda Cortez CPhT Drill Operator Automatic II [facility] ([facility]) 03/18/2024, 4:11 PM * Telephone Encounter - Marilyn Cerna CPhT - 03/18/2024 9:10 AM EST Pharmacy calling to inform doctor that the patient's insurance will not pay for this medication without a completed prior authorization. Did confirm this information with the pharmacy. Pt's current insurance information is as follows: Patient name: Kana Thomas ID number: [id number] BIN number: [id number] PCN number: [id number] Group number: [id number] Subscriber name: Kana Thomas Primary or Secondary Insurance:Primary Medication: oxycodone ER 10mg Reason for Request: [place] required Pharmacy and phone number: [facility] [phone] Rx plan and phone number: [facility] [phone] Is this a new medication for the patient? No. How did the patient obtain the medication on the lastfill? It was covered last time on this same insurance. What alternative medications does the pharmacy have in stock?: Thank you, Marilyn Cerna CPhT Drill Operator Automatic [facility] ([facility]) 03/18/2024, 9:11 AM documented in this encounter Plan of Treatment Upcoming Encounters Date Type Department Care Team (Late st Contact Info) Description 03/25/2024 1:00 PM EST Office Visit Urology Reji Haines [address] [place] [address] Ruth Gonsales PA-C [address] [place] [address] 03/29/2024 11:00 AM EST Office Visit [facility] [address] [place] [place] [address] Charles Mayer DO [address] [place] [address] 04/14/2024 9:00 AM EST Office Visit Palliative Medicine [facility] [address] [place] [address] Josseline Post MD 400 [facility] [place] [address] 04/15/2024 9:00 AM EST Office Visit Neurology [address] [place] [address] Heather Franklin CRNP 100 [facility] [place] [id number] 05/20/2024 1:40 PM EST Office Visit [facility] [address] [facility] [place] [address] Charles Mayer, 132 [facility] [place] [address] 10/28/2024 11:40 AM EDT Office Visit [facility] 132 [facility] [place] [address] Charles Mayer, [address] [facility] [address] Scheduled Procedures Name Priority Associated Diagnoses Date/Ti [...] Additional history exists CKD HGB USE SMARTSET 57969 11/24/202411/24, 11/25/2023, 06/11/2023, Additional history exists CKD PHOS USE SMARTSET 62878 11/24/202411/06, 06/11/2023, 12/24/2019 Depression Screening 01/21/2025 01/22/2024 [...] Documents on File Type Date Recorded Patient Retail Commission Sales Associate Expl 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 Care Teams Fuel Efficient Aircraft Designer Relationship Specialty Start Date End Date Charles Mayer DO [address] [place] [address] PCP - General Family Medicine 05/26/23 documented as of this encounter
--- OUTSIDE RECORDS SUMMARY | 2024-03-26 10:42 | External Medical Summary | Summary of Care ---
Author Name Unknown Organization [facility] Address [address] [facility] [address] Phone [phone] Care Team Providers Care Ground Crew Lines Person Name Role Phone Charles Mayer DO Primary Care Provider Reason for Referral * Medication Prior Authorization - Pending Review Specialty Diagnoses / Procedures Referred By Heather neves Referred To Contact Diagnoses Other chronic pain Charles Mayer DO [address] [place] [address] Phone: tel: fax: Referral ID Status Reason Start Date Expiration Date V isits Requested Visits Authorized [id number] Pending Review 999 999 Reason for Visit * Reason Onset Date Comments Medication Pre-auth 03/17/2024 Oxycodone ER 10mg Encounter Details Date Type Department Care Team (Late st Contact Info) Description 03/17/2024 Telephone Family Practice [facility] [address] [place] [address] Charles Mayer DO [address] [place] [address] Medication Pre-auth (Oxycodone ER 10mg) Allergies Active [...] Tablet 03/17/20 24 Active MORPHINE 5 MG/ML SALESPERSON FASHION ACCESSORIES SQ INFUSION (AMBULATORY)In dications:MEDI CATION USE AGREEMENT [...] inj 1,000 mcgIndications:B12 deficiency 1000 mcg IM [id number] 01/28/2024 12/29/2024 Active documented as of this [...] anemia 04/24/2017 Coronary artery disease invo lving [place] heart without angina pectoris 04/18/2016 Incomplete tear of right rotator cuff 04/15/2016 Overview (04/15/2016): 04/23 Dr Eduardo guerrero. Anxiety 09/28/2014 Diverticulitis of colon 09/16/2014 Intestinal postoperative nonabsorption 1 CALLAHAN RESEARCH OTHER*[id number] 09/14/2009 MEDICATION USE AGREEMENT 05/19/2008 Overview (05/19/2008): [...] S/p gastric bypass. Pain mgmt Dr Syed Asencio--[facility] +pain pump 02/22 EGD-Gastric bypass [...] Tobacco use disorder 09/18/2009 011 Bariatric Proteinuria Research*[id number] 09/14/2009 12/27/2009 Organic sleep disorder 06/22/200910/10 Morbid [...] Does the household have a [facility] source of income? 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 Prior authorization entered in PromptPA at [facility]. EOC# [id number] Please send to [facility] before 4 pm. Thank you, Janell Jenkins CPhT Employment Recruiter [facility] ([facility]) 03/19/2024,9:14 AM * Telephone Encounter - Amanda Cortez PHARM Tech - 03/18/2024 4:11 PM EST Patients insurance would like to inform the office that oxycodone ER 10mg is requiring additional information: if pt has tried and failed two other manager intermediate opioids . Prior authorization entered in PromptPA at [facility]. EOC# [id number] Please send to [facility] before end of day tomorrow 03-19-24. Thank you, Amanda Cortez CPhT Employment Recruiter II [facility] ([facility]) 03/18/2024, 4:11 PM * Telephone Encounter - Marilyn Cerna CPhT - 03/18/2024 9:10 AM EST Pharmacy calling to inform doctor that the patient's insurance will not pay for this medication without a completed prior authorization. Did confirm this information with the pharmacy. Pt's current insurance information is as follows: Patient name: Kana Thomas ID number: [id number] BIN number: [id number] PCN number: [id number] Group number: [id number] Subscriber name: Kana Thomas Primary or Secondary Insurance:Primary Medication: oxycodone ER 10mg Reason for Request: [place] required Pharmacy and phone number: [facility] [phone] Rx plan and phone number: [facility] [phone] Is this a new medication for the patient? No. How did the patient obtain the medication on the lastfill? It was covered last time on this same insurance. What alternative medications does the pharmacy have in stock?: Thank you, Marilyn Cerna CPhT Employment Recruiter [facility] ([facility]) 03/18/2024, 9:11 AM documented in this encounter Plan of Treatment Upcoming Encounters Date Type Department Care Team (Late st Contact Info) Description 03/25/2024 1:00 PM EST Office Visit Urology Reji Haines [address] [place] [address] Ruth Gonsales PA-C [address] [place] [address] 03/29/2024 11:00 AM EST Office Visit [facility] 132 [facility] [place] [address] Charles Mayer, DO 132 [facility] [place] [address] 04/14/2024 9:00 AM EST Office Visit Palliative Medicine [facility] [address] [place] [phone] Josseline Post MD 400 [place] [address] 04/15/2024 9:00 AM EST Office Visit Neurology [address] [place] [address] Heather Franklin CRNP 100 [place], [place] [address] 05/20/2024 1:40 PM EST Office Visit [facility] [address] [place] [address] Charles Mayer, 132 [facility] [place] [address] 10/28/2024 11:40 AM EDT Office Visit [facility] [address] [place] [address] Charles Mayer, [address] [place] [address] Scheduled Procedures Name Priority Associated Diagnoses Date/Ti me ESOPHAGOGASTRODUODENOSCOPY ( EGD), FLEXIBLE, TRANSORAL, DIAGNOSTIC Recall Esophageal reflux Health Maintenance Due Date Last Done Comments Cologuard 2008 Fecal Occult Blood Test 2008 Sigmoidoscopy 2008 Zoster Vaccines (1 of 2) 2013 Colonoscopy 06/03/2018 06/03/2017, 06/03/2017 Colorectal Cancer Screening 06/03/2018 COVID-19 Vaccine ( season) 2023 09/11/2020, 08/14/2020 Albumin/Creatinine Ratio 06/11/2024 06/12/2023, 060 06/2014 GFR 07/28/2024 01/28/2024, 11/06, 10/27/2023, Additional history exists CKD HGB USE SMARTSET 44218 11/24/202411/24, 11/25/2023, 06/11/2023, Additional history exists CKD PHOS USE SMARTSET 46637 11/24/202411/06, 06/11/2023, 12/24/2019 Depression Screening 01/21/2025 01/22/2024 [...] Documents on File Type Date Recorded Patient 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 Care Teams Ground Crew Lines Person Relationship Specialty Start Date End Date Charles Mayer DO [address] [place] [address] PCP - General Family Medicine 05/26/23 documented as of this encounter
--- OUTSIDE RECORDS SUMMARY | 2024-03-26 10:43 | External Medical Summary | Summary of Care ---
Author Name Unknown Organization [facility] Address [address] [place] [address] Phone [phone] Care Team Providers Care Medical Practitioners Name Role Phone Charles Mayer DO Primary Care Provider Reason for Visit * Reason Onset Date Comments Medication Refill 03/17/2024 Encounter Details Date Type Department Care Team (Late st Contact Info) Description 03/17/[address] [facility] [address] [facility] [place] [address] Annette Meadows RN [address] [place] [address] Other chronic pain* Allergies Active Allergy Reactions Criticality Noted Date [...] as of this encounter (statuses as of 03/17/2024) Medications Pantoprazole Sodium 40 MG Oral Tablet [...] for Pain, Severe. 30 Tablet 4 Active Acetaminophen 500 MG Oral Tablet (Tylenol) Take 2 Tablets by mouth 3 times a day as needed (pain). Active Mirtazapine 15 MG Oral Tablet (Remeron) Take 1 Tablet by mouth at bedtime. 30 Tablet 1 4 Active Cyclobenzaprine HCl 10 MG Oral Tablet (Flexeril)Indic ations:Other chronic pain Take 1 Tablet by mouth in the morning and 1 Tablet before bedtime. Takes 1 1/2 tabs (15 mg) three times day. 60 Tablet 3 4 Active Memantine HCl 10 MG Oral Tablet (Namenda)Indica tions:Other chronic pain Take 1 Tablet by mouth in the morning and 1 Tablet before bedtime. 60 Tablet 3 4 Active Tamsulosin HCl 0.4 MG Oral Capsule (Flomax)Indicat ions:Other chronic pain Take 1 Capsule by mouth in the morning. 30 Capsule 3 4 Active Cyclobenzaprine HCl 10 MG Oral Tablet Take 1 Tablet by mouth in the morning and 1 Tablet before bedtime. Takes 1 1/2 tabs (15 mg) three times day. 4 024 Discontin ued(Refil l) Tamsulosin HCl 0.4 MG Oral Capsule (Flomax) Take 1 Capsule by mouth in the morning. 024 Discontin ued(Refil l) Hospital, Clinic, or Other Facility Administered Medication Ordered Dose Route Frequency Start Date End Date Status Vitamin B-12 (Cyanocobalamin) inj 1,000 mcgIndications:B12 deficiency 1000 mcg IM [id number] 01/28/2024 12/29/2024 Active documented as of this encounter (statuses as of 03/17/2024) Active Problems Problem Noted Date Diagnosed Date [...] 04/24/2017 Coronary artery disease invo lving [place] heart without angina pectoris 04/18/2016 Incomplete tear of right rotator cuff 04/15/2016 Overview (04/15/2016): 04/23 Dr Eduardo guerrero. Anxiety 09/28/2014 Diverticulitis of colon 09/16/2014 Intestinal postoperative nonabsorption 1 CALLAHAN RESEARCH OTHER*[id number] 09/14/2009 MEDICATION USE AGREEMENT 05/19/2008 Overview (05/19/2008): See kim GERD (gastroesophageal reflux disease) Gout S/P gastric bypass S/P spinal fusion documented as of this encounter (statuses as of 03/17/2024) Resolved Problems Problem Noted Date Diagnosed Date [...] Tobacco use disorder 09/18/2009 011 Bariatric Proteinuria Research*[id number] 09/14/2009 12/27/2009 Organic sleep disorder 06/22/200910/10 Morbid [...] as of this encounter (statuses as of 03/17/2024) Immunizations Name Administration Dates Next Due COVID-19 [...] 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 [address] [place] [address] Charles Mayer DO [address] [place] [address] 04/14/2024 9:00 AM EST Office Visit Palliative Medicine [facility] 200 [facility] [place] [address] Josseline Post MD 400 [facility] [place] [address] 04/15/2024 9:00 AM EST Office Visit Neurology [address] [place] [address] Heather Franklin CRNP [address] [place] [address] 05/20/2024 1:40 PM EST Office Visit [facility] [address] [place] [address] Charles Mayer, [address] [place] [address] 10/28/2024 11:40 AM EDT Office Visit [facility] [address] [place] [address] Charles Mayer, DO [address] [place] [address] Scheduled Procedures Name Priority Associated Diagnoses Date/Ti [...] Additional history exists CKD HGB USE SMARTSET 23159 11/24/202411/24, 11/25/2023, 06/11/2023, Additional history exists CKD PHOS USE SMARTSET 99097 11/24/202411/06, 06/11/2023, 12/24/2019 Depression Screening 01/21/2025 01/22/2024 [...] Documents on File Type Date Recorded Patient Installation Helper Expl 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 Care Teams Medical Practitioners Relationship Specialty Start Date End Date Charles Mayer DO [address] [place] [address] PCP - General Family Medicine 05/26/23 documented as of this encounter
--- OUTSIDE RECORDS SUMMARY | 2024-03-26 10:43 | External Medical Summary | Summary of Care ---
Author Name Unknown Organization [facility] Address [address] [facility] [address] Phone [phone] Care Team Providers Care Industrial Manufacturing Technician Name Role Phone Charles Mayer DO Primary Care Provider Reason for Referral * Medication Prior Authorization - Pending Review Specialty Diagnoses / Procedures Referred By Heather neves Referred To Contact Diagnoses Other chronic pain Charles Mayer DO [address] [place] [address] Phone: tel: fax: Referral ID Status Reason Start Date Expiration Date V isits Requested Visits Authorized [id number] Pending Review [phone] Reason for Visit * Reason Onset Date Comments Medication Pre-auth 03/17/2024 Oxycodone ER 10mg Encounter Details Date Type Department Care Team (Late st Contact Info) Description 03/17/2024 Telephone Family Practice [facility] [address] [place] [address] Charles Mayer DO [address] [place] [address] Medication Pre-auth (Oxycodone ER 10mg) Allergies Active [...] Tablet 03/17/20 24 Active MORPHINE 5 MG/ML TRAFFIC DIVISION COMMANDING OFFICER SQ INFUSION (AMBULATORY)In dications:MEDI CATION USE AGREEMENT [...] inj 1,000 mcgIndications:B12 deficiency 1000 mcg IM [id number] 01/28/2024 12/29/2024 Active documented as of this [...] anemia 04/24/2017 Coronary artery disease invo lving [place] heart without angina pectoris 04/18/2016 Incomplete tear of right rotator cuff 04/15/2016 Overview (04/15/2016): 04/23 Dr Eduardo guerrero. Anxiety 09/28/2014 Diverticulitis of colon 09/16/2014 Intestinal postoperative nonabsorption 1 CALLAHAN RESEARCH OTHER*[id number] 09/14/2009 MEDICATION USE AGREEMENT 05/19/2008 Overview (05/19/2008): [...] S/p gastric bypass. Pain mgmt Dr Syed Asencio--[facility] +pain pump 02/22 EGD-Gastric bypass [...] Tobacco use disorder 09/18/2009 011 Bariatric Proteinuria Research*[id number] 09/14/2009 12/27/2009 Organic sleep disorder 06/22/200910/10 Morbid [...] No 01/22/2024 Does the household have a [facility] source [facility] income? 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 Did confirm this information with the pharmacy. Pt's current insurance information is as follows: Patient name: Kana Thomas ID number: [id number] BIN number: [id number] PCN number: [id number] Group number: [id number] Subscriber name: Kana Thomas Primary or Secondary Insurance:Primary Medication: oxycodone ER 10mg Reason for Request: [place] required Pharmacy and phone number: [facility] [phone] Rx plan and phone number: [facility] [phone] Is this a new medication for the patient? No. How did the patient obtain the medication on the lastfill? It was covered last time on this same insurance. What alternative medications does the pharmacy have in stock?: Thank you, Marilyn Cerna CPhT Utilization Reviewer [facility] ([facility]) 03/18/2024, 9:11 AM documented in this encounter Plan of Treatment Upcoming Encounters Date Type Department Care Team (Late st Contact Info) Description 03/25/2024 1:00 PM EST Office Visit Urology Reji Haines [address] [place] [address] Ruth Gonsales PA-C [address] [place] [address] 03/29/2024 11:00 AM EST Office Visit Family Practice [facility] [address] [place] [address] Charles Mayer DO [address] [place] [address] 04/14/2024 9:00 AM EST Office Visit Palliative Medicine [facility] [address] [place] [address] Josseline Post MD 400 [facility] [place] [address] 04/15/2024 9:00 AM EST Office Visit Neurology [address] [place] [address] Heather Franklin CRNP 100 [facility] [place] [id number] 05/20/2024 1:40 PM EST Office Visit [facility] [address] [place] [address] Charles Mayer, DO [address] [place] [address] 10/28/2024 11:40 AM EDT Office Visit [facility] [address] [place] [address] Charles Mayer, DO [address] [place] [address] Scheduled Procedures Name Priority Associated Diagnoses Date/Ti [...] Additional history exists CKD HGB USE SMARTSET 84544 11/24/202411/24, 11/25/2023, 06/11/2023, Additional history exists CKD PHOS USE SMARTSET 78333 11/24/202411/06, 06/11/2023, 12/24/2019 Depression Screening 01/21/2025 01/22/2024 [...] Documents on File Type Date Recorded Patient Physical Therapy Instructor Expl 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 Care Teams Industrial Manufacturing Technician Relationship Specialty Start Date End Date Charles Mayer DO [address] [place] [address] PCP - General Family Medicine 05/26/23 documented as of this encounter
--- OUTSIDE RECORDS SUMMARY | 2024-03-26 10:43 | External Medical Summary | Summary of Care ---
Author Name Unknown Organization [facility] Address [address] [place] [address] Phone [phone] Care Team Providers Care Trapper Bird Name Role Phone Charles Mayer DO Primary Care Provider Reason for Visit * Reason Onset Date Comments Medication Refill 03/15/2024 Encounter Details Date Type Department Care Team (Late st Contact Info) Description 03/15/2024 Refill Neurology, [facility] [address] [place] [address] Juany Franklin CRNP [address] [place] [address] Allergies Active Allergy Reactions Criticality [...] this encounter (statuses as of 03/17/2024) Medications MORPHINE 5 MG/ML FOOTWEAR SALES COORDINATOR SQ INFUSION (AMBULATORY)Ind ications:MEDICA TION USE AGREEMENT [...] at bedtime. 30 Tablet 1 4 Active Mirtazapine 15 MG Oral Tablet (Remeron) Take 1 Tablet by mouth at bedtime. 30 Tablet 1 4 024 Discontin ued(Refil l) traZODone HCl 50 MG Oral Tablet (Desyrel)Indica tions:Coronary artery disease involving akiak coronary artery of akiak heart without angina pectoris,Stage 3a chronic kidney disease (HCC),Gastroeso phageal reflux disease without esophagitis,Dem entia (HCC) Take one-half tablet by mouth at bedtime as needed for insomnia 90 Tablet 3 03/08/2024 12:00 PM EST 4 024 Discontin ued(Patie nt preferenc e/discont inuation) Hospital, Clinic, or Other Facility Administered Medication Ordered Dose Route Frequency Start Date End Date Status Vitamin B-12 (Cyanocobalamin) inj 1,000 mcgIndications:B12 deficiency 1000 mcg IM [id number] 01/28/2024 12/29/2024 Active documented as of this [...] anemia 04/24/2017 Coronary artery disease invo lving akiak heart without angina pectoris 04/18/2016 Incomplete tear of right rotator cuff 04/15/2016 Overview (04/15/2016): 04/23 Dr Eduardo guerrero. Anxiety 09/28/2014 Diverticulitis of colon 09/16/2014 Intestinal postoperative nonabsorption 1 CALLAHAN RESEARCH OTHER*[id number] 09/14/2009 MEDICATION USE AGREEMENT 05/19/2008 Overview (05/19/2008): [...] S/p gastric bypass. 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 Trazodone removed from mediation list. * Telephone Encounter - Ila Oro OSA - 03/17/2024 6:57 AM ESTPending Prescriptions: Disp Refills Mirtazapine 15 MG Oral Tablet (Remeron) 30 Tab*1 Sig: Take 1 Tablet by mouth at bedtime. * Telephone Encounter - Bev Bess LPN - 03/16/2024 2:46 PM ESTPending Prescriptions: Disp Refills Mirtazapine 15 MG Oral Tablet (Remeron) 30 Tab*1 Sig: Take 1 Tablet by mouth at bedtime. * Telephone Encounter - Esther Del Rosario PHARM Tech - 03/16/2024 2:36 PM EST Patient is up to date for office visits. Pt's sent MyG to nurse while on phone with me. She sts he is taking 15MG and no longer taking traZODone HCl 50 MG Oral Tablet (Desyrel). She sts he is out of meds and needs jaymie Pending Prescriptions: Disp Refills Mirtazapine 15 MG Oral Tablet (Remeron) 30 Tab*1 Sig: Take 1 Tablet by mouth at bedtime. Last Visit: 06/24/2023 (in office), Visit date not found (telemedicine) Next Visit: 03/22/2024 If no future appointments scheduled, and last appointment is greater than a year ago, please schedule patient for a follow-up appointment Last date the medication was ordered: 01/29/2024 Pharmacy: [facility] Is this request for a controlled substance?No it is not controlled. Urine Drug Screen:No results found. However, due [...] 12/29/2018 09:39 AM * Telephone Encounter - Juany Franklin CRNP - 03/15/2024 2:25 PM EST We have reached out numerous time to clarify what dose he's currently taking of these medications. Most recent attempt to contact spouse about his medications was on 03/08/2024. I recommended doing the following when prescription [...] I sent the refills to his pharmacy. Has he weaned off of the Trazodone since the mirtazapine dose was increased from 7.5 mg to 15 mg?? If not then he needs to wean off of it as recommended above. We have been contacting the spouse by phone and by [employer], but have no received a response. Unfortunately I will not be able to [...] refills if appropriate. * Telephone Encounter - Roopa Torres CMA - 03/15/2024 1:31 PM EST Patient and , Alisha, came to nurse station asking for Remeron/Mirtazapine 15 mg to be refilled. He only has 2 days of medication left and needs it filled jaymie. Alisha said she wants a 90 day refill script sent to [facility] this time because of quicker access for pickup. In the future she would like a 90 day script sent to [facility]. If there are any questions please call Alisha at [phone]. Patient is a patient of Juany Franklin. documented in this encounter Plan of Treatment Upcoming Encounters Date Type Department Care Team (Late st Contact Info) Description 04/05/2024 11:30 AM EST Office Visit Urology [facility] [address] [place] [address] Ruth Gonsales PA-C [address] [place] [address] 04/14/2024 9:00 AM EST Office Visit [facility] [address] [place] [address] Josseline Post MD [address] [place] [address] 04/15/2024 9:00 AM EST Office Visit Neurology [address] [place] [address] Juany Franklin, MAIL ORDER SORTER [address] [facility] [place] [address] 05/20/2024 1:40 PM EST Office Visit [facility] [address] [place] [address] Charles Mayer, [address] [place] [address] 10/28/2024 11:40 AM EDT Office Visit [facility] [address] [facility] [place] [address] Charles Mayer, [address] [place] [address] Scheduled Procedures Name Priority Associated Diagnoses Date/Ti [...] Additional history exists CKD HGB USE SMARTSET 91431 11/24/202411/24, 11/25/2023, 06/11/2023, Additional history exists CKD PHOS USE SMARTSET 27117 11/24/2024 08/2 , 06/11/2023, 12/24/2019 Depression Screening [...] Documents on File Type Date Recorded Patient Aged Or Disabled Carer Expl 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 Care Teams Trapper Bird Relationship Specialty Start Date End Date Charles Mayer DO [address] [place] [address] PCP - General Family Medicine 05/26/23 documented as of this encounter
--- OUTSIDE RECORDS SUMMARY | 2024-03-26 10:43 | External Medical Summary | Summary of Care ---
Author Name Unknown Organization [facility] Address [address] [place] [address] Phone [phone] Care Team Providers Care County Administrator Name Role Phone Marsha Mayeradin [place]wn Primary Care Provider Encounter Details Date Type Department Care Team (Late st Contact Info) Description 03/17/2024 Documentation General Internal Medicine [address] [place] [address] Carmen Arreola DO [address] [place] [address] Allergies Active Allergy Reactions Criticality Noted Date [...] the morning. 30 Capsule 3 4 Active oxyCODONE HCl ER 10 MG Oral Tablet ER 12 Hour Abuse-Deterrent (OxyCONTIN)Indic ations:Other chronic pain Take 1 Tablet by mouth in the morning and 1 Tablet before bedtime. 60 Tablet 4 Active Hospital, Clinic, or Other Facility Administered Medication Ordered Dose Route Frequency Start Date End Date Status Vitamin B-12 (Cyanocobalamin) inj 1,000 mcgIndications:B12 deficiency 1000 mcg IM [id number] 01/28/2024 12/29/2024 Active documented as of this [...] anemia 04/24/2017 Coronary artery disease invo lving burns pai[place] heart without angina pectoris 04/18/2016 Incomplete tear of right rotator cuff 04/15/2016 Overview (04/15/2016): 04/23 Dr Eduardo guerrero. Anxiety 09/28/2014 Diverticulitis of colon 09/16/2014 Intestinal postoperative nonabsorption 1 CALLAHAN RESEARCH OTHER*[id number] 09/14/2009 MEDICATION USE AGREEMENT 05/19/2008 Overview (05/19/2008): [...] gastric bypass. Pain mgmt Dr Syed Asencio--[facility] +pain pump 02/22 EGD-Gastric bypass with a [...] Tobacco use disorder 09/18/2009 011 Bariatric Proteinuria Research*[id number] 09/14/2009 12/27/2009 Organic sleep disorder 06/22/200910/10 Morbid [...] [address] [place] [address] Ruth Gonsales PA-C [address] [place] [address] 03/29/2024 11:00 AM EST Office Visit [facility] 132 [place] [address] Charles Mayer DO [address] [place] [address] 04/14/2024 9:00 AM EST Office Visit Palliative Medicine [facility] [address] [place] [address] Josseline Post MD 400 [facility] [place] [address] 04/15/2024 9:00 AM EST Office Visit Neurology [address] [place] [address] Heather Franklin CRNP 100 [facility] [place] [address] 05/20/2024 1:40 PM EST Office Visit [facility] 132 [facility] [place] [address] Charles Mayer, DO [address] [place] [address] 10/28/2024 11:40 AM EDT Office Visit Family Practice [facility] [address] [place] [address] Charles Mayer, DO [address] [place] [address] Scheduled Procedures Name Priority Associated Diagnoses Date/Ti [...] Additional history exists CKD HGB USE SMARTSET 53291 11/24/202411/24, 11/25/2023, 06/11/2023, Additional history exists CKD PHOS USE SMARTSET 72582 11/24/202411/06, 06/11/2023, 12/24/2019 Depression Screening 01/21/2025 01/22/2024 [...] Documents on File Type Date Recorded Patient Web Pressman Expl 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 Care Teams County Administrator Relationship Specialty Start Date End Date Charles Mayer DO [address] [place] [address] PCP - General Family Medicine 05/26/23 documented as of this encounter
--- OUTSIDE RECORDS SUMMARY | 2024-03-26 10:43 | External Medical Summary | Summary of Care ---
Author Name Unknown Organization [facility] Address [address] [place] [address] Phone [phone] Care Team Providers Care Commissions Coordinator Name Role Phone Andrea Mayer DO Primary Care Provider Reason for Visit * Reason Onset Date Comments Medication Refill 03/17/2024 Encounter Details Date Type Department Care Team (Late st Contact Info) Description 03/17/2024 Refill Family Practice [facility] [address] [facility] [place] [address] Annette Meadows RN [address] [place] [address] Other chronic pain* Allergies Active [...] inj 1,000 mcgIndications:B12 deficiency 1000 mcg IM [id number] 01/28/2024 12/29/2024 Active documented as of this [...] anemia 04/24/2017 Coronary artery disease invo lving kenaitze heart without angina pectoris 04/18/2016 Incomplete tear of right rotator cuff 04/15/2016 Overview (04/15/2016): 04/23 Dr Eduardo guerrero. 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 Takes 1 1/2 tabs (15 mg) three times day.Authorizing Provider: ANDREA MAYER Memantine HCl 10 MG Oral Tablet (Namenda) 60 Tab*3 Sig: Take 1 Tablet by mouth in the morning and 1 Tablet before bedtime.AuthorizingProvider: ANDREA MAYER Tamsulosin HCl 0.4 MG Oral Capsule (Flomax)30 Cap*3 Sig: Take 1 Capsule by mouth in the morning.Authorizing Provider: ANDREA MAYER documented in this encounter Plan of Treatment Upcoming Encounters Date Type Department Care Team (Late st Contact Info) Description 03/25/2024 1:00 PM EST Office Visit Urology [facility] [address] [place] [address] Ruth Gonsales PA-C [address] [place] [address] 03/29/2024 11:00 AM EST Office Visit [facility] 132 [facility] [place] [address] Andrea Mayer, DO 132 [facility] [place] [address] 04/14/2024 9:00 AM EST Office Visit Palliative Medicine [facility] 200 [place] [address] Josseline Post MD 400 [facility] [place] [place] [address] 04/15/2024 9:00 AM EST Office Visit Neurology [address] [place] [address] Heather Franklin CRNP [address] [place], [place] [address] 05/20/2024 1:40 PM EST Office Visit [facility] 132 [facility] [place] [address] Andrea Mayer, DO 132 [facility] [place] [address] 10/28/2024 11:40 AM EDT Office Visit [facility] [address] [place] [address] Andrea Mayer, DO [address] [place] [address] Scheduled Procedures Name Priority Associated Diagnoses Date/Ti [...] Additional history exists CKD HGB USE SMARTSET 39117 11/24/202411/24, 11/25/2023, 06/11/2023, Additional history exists CKD PHOS USE SMARTSET 81190 11/24/202411/06, 06/11/2023, 12/24/2019 Depression Screening 01/21/2025 01/22/2024 [...] Documents on File Type Date Recorded 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 Care Teams Commissions Coordinator Relationship Specialty Start Date End Date Andrea Mayer DO [address] [place] [address] PCP - General Family Medicine 05/26/23 documented as of this encounter
--- OUTSIDE RECORDS SUMMARY | 2024-03-26 10:43 | External Medical Summary | Summary of Care ---
Author Name Unknown Organization [facility] Address [address] [facility] [address] Phone [phone] Care Team Providers Care Tailercpa Name Role Phone Charles Mayer DO Primary Care Provider Reason for Referral * Medication Prior Authorization - Pending Review Specialty Diagnoses / Procedures Referred By Contnic t Referred To Contact Diagnoses Other chronic pain Charles Mayer DO [address] [place] [address] Phone: tel: fax: Referral ID Status Reason Start Date Expiration Date V isits Requested Visits Authorized [id number] Pending Review [phone] Encounter Details Date Type Department Care Team (Late st Contact Info) Description 03/17/2024 Telephone Family Practice [facility] [address] [place] [address] Charles Mayer DO [address] [place] [address] Allergies Active Allergy Reactions Criticality Noted Date [...] mouth at bedtime. 30 Tablet 1 03/17/20 Active oxyCODONE HCl ER 10 MG Oral Tablet ER 12 Hour Abuse-Deterren t (OxyCONTIN)Ind ications:Other chronic pain Take 1 Tablet by mouth in the morning and 1 Tablet before bedtime. 60 Tablet 03/17/20 Active MORPHINE 5 MG/ML GENERAL STUDIES PROGRAM CHAIR SQ INFUSION (AMBULATORY)In dications:MEDI CATION USE AGREEMENT [...] 4 7:53 AM EST 02/16/20 24 Discontinued Hospital, Clinic, or Other Facility Administered Medication Ordered Dose Route Frequency Start Date End Date Status Vitamin B-12 (Cyanocobalamin) inj 1,000 mcgIndications:B12 deficiency 1000 mcg IM [id number] 01/28/2024 12/29/2024 Active documented as of this [...] 09/16/2014 Intestinal postoperative nonabsorption 1 CALLAHAN RESEARCH OTHER*[id number] 09/14/2009 MEDICATION USE AGREEMENT 05/19/2008 Overview (05/19/2008): [...] Tobacco use disorder 09/18/2009 011 Bariatric Proteinuria Research*[id number] 09/14/2009 12/27/2009 Organic sleep disorder 06/22/200910/10 Morbid [...] 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 Not on file documented as of this encounter Plan of Treatment Upcoming Encounters Date Type Department Care Team (Late st Contact Info) Description 03/25/2024 1:00 PM EST Office Visit Urology [facility] [address] [place] [address] Ruth Gonsales PA-C [address] [place] [address] 03/29/2024 11:00 AM EST Office Visit Family Practice [facility] [address] [place] [address] Cahrles Mayer DO [address] [place] [address] 04/14/2024 9:00 AM EST Office Visit Palliative Medicine [facility] [address] [place] [address] Josseline Post MD 400 [facility] [place] [address] 04/15/2024 9:00 AM EST Office Visit Neurology [address] [place] [address] Heather Franklin CRNP 100 [place] [address] 05/20/2024 1:40 PM EST Office Visit [facility] [address] [facility] [place] [address] Charles Mayer, DO 132 [facility] [place] [address] 10/28/2024 11:40 AM EDT Office Visit [facility] 132 [facility] [place] [address] Charles Mayer, 132 [facility] [place] [address] Scheduled Procedures Name Priority Associated Diagnoses Date/Ti [...] Additional history exists CKD HGB USE SMARTSET 73746 11/24/202411/24, 11/25/2023, 06/11/2023, Additional history exists CKD PHOS USE SMARTSET 72282 11/24/202411/06, 06/11/2023, 12/24/2019 Depression Screening 01/21/2025 01/22/2024 [...] Documents on File Type Date Recorded 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 Care Teams Tailercpa Relationship Specialty Start Date End Date Charles Mayer DO [address] [place] [address] PCP - General Family Medicine 05/26/23 documented as of this encounter
--- OUTSIDE RECORDS SUMMARY | 2024-03-26 10:43 | External Medical Summary | Summary of Care ---
Author Name Unknown Organization [facility] Address [address] [place] [address] Phone [phone] Care Team Providers Care Body Stylist Name Role Phone Charles Mayer DO Primary Care Provider Reason for Visit * Reason Comments Medication Refill Encounter Details Date Type Department Care Team (Late st Contact Info) Description 03/02/2024 Refill Family Practice [facility] 132 [facility] [place] [address] Juany Franklin CRNP [address] [place] [address] Coronary artery disease involving northwestern shoshone coronary artery of northwestern shoshone heart without angina pectoris; Stage 3a chronic [...] needed for Pain, Severe. 30 Tablet 03/02/20 Active Mirtazapine 30 MG Oral Tablet (Remeron) Take 1 Tablet by mouth at bedtime. 30 Tablet 1 03/18/20 24 Active MORPHINE 5 MG/ML MACHINE DESIGN TEACHER SQ INFUSION (AMBULATORY)In dications:MEDI CATION USE AGREEMENT [...] Tablet (Desyrel)Indic ations:Coronar y artery disease involving northwestern shoshone coronary artery of northwestern shoshone heart without angina pectoris,Stage 3a chronic kidney [...] inj 1,000 mcgIndications:B12 deficiency 1000 mcg IM [id number] 01/28/2024 12/29/2024 Active documented as of this [...] anemia 04/24/2017 Coronary artery disease invo lving northwestern shoshone heart without angina pectoris 04/18/2016 Incomplete tear of right rotator cuff 04/15/2016 Overview (04/15/2016): 04/23 Dr Eduardo guerrero. Anxiety 09/28/2014 Diverticulitis of colon 09/16/2014 Intestinal postoperative nonabsorption 1 CALLAHAN RESEARCH OTHER*[id number] 09/14/2009 MEDICATION USE AGREEMENT 05/19/2008 Overview (05/19/2008): [...] S/p gastric bypass. 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 Thank you, Porsha Austin CPhT II Molding Machine Operator [facility] 03/03/2024, 1:12 [...] appropriate. * Telephone Encounter - Yuval Botello RP - 03/03/2024 8:55 AM EST Pending Prescriptions: [...] preferred pharmacy and medication before forwarding?yes Pharmacy: [facility] Pending Prescriptions: Disp Refills [...] [address] [place] [address] Ruth Gonsales PA-C [address] [place] [address] 03/29/2024 11:00 AM EST Office Visit [facility] 132 [facility] [place] [address] Charles Mayer, 132 [facility] [place] [address] 04/14/2024 9:00 AM EST Office Visit Palliative Medicine [facility] [address] [place] [address] Josseline Post MD 400 [facility] [place] [address] 04/15/2024 9:00 AM EST Office Visit Neurology [address] [place] [address] Juany Franklin CRNP 100 [place] [address] 05/20/2024 1:40 PM EST Office Visit [facility] [address] [place] [address] Charles Mayer, [address] [place] [address] 10/28/2024 11:40 AM EDT Office Visit [facility] [address] [place] [address] Charles Mayer, [address] [place] [address] Scheduled Procedures Name Priority Associated Diagnoses Date/Ti [...] Additional history exists CKD HGB USE SMARTSET 19973 11/24/202411/24, 11/25/2023, 06/11/2023, Additional history exists CKD PHOS USE SMARTSET 46910 11/24/202411/06, 06/11/2023, 12/24/2019 Depression Screening 01/21/2025 01/22/2024 [...] Visit Diagnoses Diagnosis Coronary artery disease involving northwestern shoshone coronary artery of northwestern shoshone heart without angina pectoris Stage 3a chronic kidney disease Gastroesophageal reflux disease without esophagitis Esophageal reflux Dementia (HCC) Dementia, unspecified, without behavioral disturbance documented in this encounter Advance Directives Documents on File Type Date Recorded Patient Nurse Instructor Expl 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 Care Teams Body Stylist Relationship Specialty Start Date End Date Charles Mayer DO [facility] [place] [address] PCP - General Family Medicine 05/26/23 documented as of this encounter
--- OUTSIDE RECORDS SUMMARY | 2024-03-26 10:44 | External Medical Summary | Summary of Care ---
Author Name Unknown Organization [facility] Address [address] [place] [address] Phone [phone] Care Team Providers Care Abstract Clerk Name Role Phone Andrea Mayer DO Primary Care Provider Reason for Visit * Reason Onset Date Comments Appointment 03/09/2024 Order Request 03/09/2024 Encounter Details Date Type Department Care Team (Late st Contact Info) Description 03/09/2024 Telephone Urology, [facility] [address] [place] [address] Services, Scheduling [address] [place] [address] Appointment; Order Request Allergies Active Allergy Reactions Criticality Noted Date [...] as of this encounter (statuses as of 03/16/2024) Medications MORPHINE 5 MG/ML TECHNICAL AGRONOMIST SQ INFUSION (AMBULATORY)[place] cations:MEDICATI ON USE AGREEMENT [...] Oral Tablet (Desyrel)Indicat ions:Coronary artery disease involving [place] coronary artery of [place] heart without angina pectoris,Stage 3a chronic kidney [...] inj 1,000 mcgIndications:B12 deficiency 1000 mcg IM [id number] 01/28/2024 12/29/2024 Active documented as of this encounter (statuses as of 03/16/2024) Active Problems Problem Noted Date Diagnosed Date [...] anemia 04/24/2017 Coronary artery disease invo lving hamilton heart without angina pectoris 04/18/2016 Incomplete tear of right rotator cuff 04/15/2016 Overview (04/15/2016): 04/23 Dr Eduardo guerrero. Anxiety 09/28/2014 Diverticulitis of colon 09/16/2014 Intestinal postoperative nonabsorption 1 CALLAHAN RESEARCH OTHER*[id number] 09/14/2009 MEDICATION USE AGREEMENT 05/19/2008 Overview (05/19/2008): See kim GERD (gastroesophageal reflux disease) Gout S/P gastric bypass S/P spinal fusion documented as of this encounter (statuses as of 03/16/2024) Resolved Problems Problem Noted Date Diagnosed Date [...] Tobacco use disorder 09/18/2009 011 Bariatric Proteinuria Research*[id number] 09/14/2009 12/27/2009 Organic sleep disorder 06/22/200910/10 Morbid [...] as of this encounter (statuses as of 03/16/2024) Immunizations Name Administration Dates Next Due COVID-19 [...] 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 * Telephone Encounter - Danya Sheikh LPN - 03/11/2024 3:00 PM EST Patient's stopped in to get catheter supplies. Instructions and supplies given. Patient's wifeis reporting dark yellow, strong smelling urine. is concerned for possible UTI recurrence. Patient has not been seen by urology yet, so I cannot place order. Is Dr Mayer willing to order this? Please call with advise. Thank you Danya Sheikh LPN * Telephone Encounter - Erin Hendrix OSA - 03/09/2024 4:[address] Velarde had opening on Mar 11 in [place]. I spoke to patient's and they took that appt. * Telephone Encounter - Erin Hendrix OSA - 03/09/2024 3:43 PM EST I spoke to Patient's and told explain message below. Told her we unfortunately don't have an appointment in that time frame. I did tell her there is a walk in clinic is [place] , if they wantedto stay with [facility]. Pt's understood and thanked me. * Telephone Encounter - Danya Sheikh LPN - 03/09/2024 3:35 PM EST Correct. Patient must be seen by a urology provider before nursing can remove the catheter. Alternatively, patient can go back to ER to have it removed, or follow up with [facility]. Or, go to an outlying [facility] Urology clinic if he cannot be seen here within 1 week (per triage list). Thank you Annette * Telephone Encounter - Erin Hendrix OSA - 03/09/2024 3:16 PM EST Patient was last seen by Dr. Cardoso five years ago. If catheter was placed by cortez gorman, they would have to see provider before anything, correct? Please advise. Thank you! * Telephone Encounter - Porsha Bates OSA - 03/09/2024 2:56 PM EST Pt robin calling in for TOV within 2-3 days. PT was D/C today from [facility] with a catheter. They thought pt had uti but his kidney function decreased so they are saying it is urinary retention. No openings Please advise documented in this encounter Plan of Treatment Upcoming Encounters Date Type Department Care Team (Late st Contact Info) Description 04/05/2024 11:30 AM EST Office Visit Urology e[facility] [address] [place] [address] Ruth Gonsales PA-C [address] [place] [address] 04/14/2024 9:00 AM EST Office Visit Palliative Medicine [facility] [address] [place] [phone] Josseline Post MD [address] [facility] [place] [address] 04/15/2024 9:00 AM EST Office Visit Neurology [address] [place] [address] Heather Franklin CRNP [address] [place] [address] 05/20/2024 1:40 PM EST Office Visit [facility] [address] [place] [address] Andrea Mayer DO [address] [place] [address] 10/28/2024 11:40 AM EDT Office Visit [facility] [address] [place] [address] Andrea Mayer, [address] [place] [address] Scheduled Orders Name Type Priority Associated Diagnoses Orde r Schedule CULTURE, URINE, QUANTITATIVE Lab Routine Dysuria Expected: 03/16/2024, Expires: 03/16/2025 Scheduled Procedures Name Priority Associated Diagnoses Date/Ti [...] Additional history exists CKD HGB USE SMARTSET 37184 11/24/202411/24, 11/25/2023, 06/11/2023, Additional history exists CKD PHOS USE SMARTSET 21624 11/24/202411/06, 06/11/2023, 12/24/2019 Depression Screening 01/21/2025 01/22/2024 [...] Documents on File Type Date Recorded 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 Care Teams Abstract Clerk Relationship Specialty Start Date End Date Andrea Mayer DO [address] [place] [address] PCP - General Family Medicine 05/26/23 documented as of this encounter
--- OUTSIDE RECORDS SUMMARY | 2024-03-26 10:44 | External Medical Summary | Summary of Care ---
Author Name Unknown Organization [facility] Address [address] [place] [address] Phone [phone] Care Team Providers Care Pig Conveyor Operator Name Role Phone Charles Mayer DO Primary Care Provider Reason for Visit * Reason Onset Date Comments Appointment 03/09/2024 Order Request 03/09/2024 Encounter Details Date Type Department Care Team (Late st Contact Info) Description 03/09/2024 Telephone Urology, [facility] [address] [place] [address] Services, Scheduling [address] [place] [address] Appointment; Order Request Allergies Active Allergy Reactions [...] as of this encounter (statuses as of 03/15/2024) Medications MORPHINE 5 MG/ML PHYSICAL PLANT EMPLOYEE SQ INFUSION (AMBULATORY)[place] cations:MEDICATI ON USE AGREEMENT [...] Oral Tablet (Desyrel)Indicat ions:Coronary artery disease involving [place] coronary artery of [place] heart without angina pectoris,Stage 3a chronic kidney [...] inj 1,000 mcgIndications:B12 deficiency 1000 mcg IM [id number] 01/28/2024 12/29/2024 Active documented as of this encounter (statuses as of 03/15/2024) Active Problems Problem Noted Date Diagnosed Date [...] anemia 04/24/2017 Coronary artery disease invo lving [place] heart without angina pectoris 04/18/2016 Incomplete tear of right rotator cuff 04/15/2016 Overview (04/15/2016): 04/23 Dr Eduardo guerrero. Anxiety 09/28/2014 Diverticulitis of colon 09/16/2014 Intestinal postoperative nonabsorption 1 CALLAHAN RESEARCH OTHER*[id number] 09/14/2009 MEDICATION USE AGREEMENT 05/19/2008 Overview (05/19/2008): See kim GERD (gastroesophageal reflux disease) Gout S/P gastric bypass S/P spinal fusion documented as of this encounter (statuses as of 03/15/2024) Resolved Problems Problem Noted Date Diagnosed Date Resolved Date Kidney disease, chronic, sta ge III (GFR 30-59 ml/min) 11/16/2018 02/17/2020 Overview: Per CKD protocol Well adult exam 04/18/2016 09/24/2018 Overview (06/01/2018): ??Need eval hypoglycemia? S/p gastric bypass. 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 I spoke to patient's and they took that appt. * Telephone Encounter - Erin Hendrix OSA - 03/09/2024 3:43 PM EST I spoke to Patient's and told explain message below. Told her we unfortunately don't have an appointment in that time frame. I did tell her there is a walk in clinic is [place] , if they wantedto stay with [facility]. Pt's understood and thanked me. * Telephone Encounter - Danya Sheikh LPN - 03/09/2024 3:35 PM EST Correct. Patient must be seen by a urology provider before nursing can remove the catheter. Alternatively, patient can go back to ER to have it removed, or follow up with [facility]. Or, go to an [facility] Urology clinic if he cannot be seen here within 1 week (per triage list). Thank you Annette * Telephone Encounter - Erin Hendrix OSA - 03/09/2024 3:16 PM EST Patient was last seen by Dr. Cradoso five years ago. If catheter was placed by cortez lino, they would have to see provider before anything, correct? Please advise. Thank you! * Telephone Encounter - Porsha Bates OSA - 03/09/2024 2:56 PM EST Pt robin calling in for TOV within 2-3 days. PT was D/C today from [facility] with a catheter. They thought pt had uti but his kidney function decreased so they are saying it is urinary retention. No openings Please advise documented in this encounter Plan of Treatment Upcoming Encounters Date Type Department Care Team (Late st Contact Info) Description 03/17/2024 9:00 AM EST Office Visit [place] [address] [place] [address] Charles Mayer, [address] [place] [address] 04/05/2024 11:30 AM EST Office Visit Urology Reji Haines [address] [place] [address] Ruth Gonsales PA-C [address] [place] [address] 04/15/2024 9:00 AM EST Office Visit Neurology [address], [place] [phone] Heather Franklin CRNP [address] [facility] [place], [place] [phone] 05/20/2024 1:40 PM EST Office Visit [place] [address] [place] [address] Charles Mayer, 132 [facility] [place] [address] 10/28/2024 11:40 AM EDT Office Visit [place] [facility] [address] [place] [address] Charles Mayer, [address] [facility] [address] Scheduled Procedures Name Priority Associated Diagnoses Date/Ti [...] Additional history exists CKD HGB USE SMARTSET 20984 11/24/202411/24, 11/25/2023, 06/11/2023, Additional history exists CKD PHOS USE SMARTSET 16551 11/24/202411/06, 06/11/2023, 12/24/2019 Depression Screening 01/21/2025 01/22/2024 [...] Documents on File Type Date Recorded Patient Cold Roller Expl 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 Care Teams Pig Conveyor Operator Relationship Specialty Start Date End Date Charles Mayer DO [address] [place] [address] PCP - General Family Medicine 05/26/23 documented as of this encounter
--- OUTSIDE RECORDS SUMMARY | 2024-03-26 10:44 | External Medical Summary | Summary of Care ---
Author Name Unknown Organization [facility] Address [address] [place] [address] Phone [phone] Care Team Providers Care Mergers And Acquisitions Consultant Name Role Phone Andrea Mayer DO Primary Care Provider Reason for Visit * Reason Onset Date Comments Appointment 03/09/2024 Order Request 03/09/2024 Encounter Details Date Type Department Care Team (Late st Contact Info) Description 03/09/2024 Telephone Urology, [facility] [address] [facility] [place] [address] Services, Scheduling [address] [place] [address] Appointment; Order Request Allergies Active Allergy Reactions [...] as of 03/16/2024) Medications MORPHINE 5 MG/ML CUSTOMS AND BORDER PROTECTION INSPECTOR SQ INFUSION (AMBULATORY)[place] cations:MEDICATI ON USE AGREEMENT [...] Oral Tablet (Desyrel)Indicat ions:Coronary artery disease involving tejon coronary artery of tejon heart without angina pectoris,Stage 3a chronic kidney [...] inj 1,000 mcgIndications:B12 deficiency 1000 mcg IM [id number] 01/28/2024 12/29/2024 Active documented as of this [...] anemia 04/24/2017 Coronary artery disease invo lving tejon heart without angina pectoris 04/18/2016 Incomplete tear of right rotator cuff 04/15/2016 Overview (04/15/2016): 04/23 Dr Eduardo guerrero. Anxiety 09/28/2014 Diverticulitis of colon 09/16/2014 Intestinal postoperative nonabsorption 1 CALLAHAN RESEARCH OTHER*[id number] 09/14/2009 MEDICATION USE AGREEMENT 05/19/2008 Overview (05/19/2008): [...] gastric bypass. 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 I spoke to patient's and they took that appt. * Telephone Encounter - Erin Hendrix OSA - 03/09/2024 3:43 PM EST I spoke to Patient's and told explain message below. Told her we unfortunately don't have an appointment in that time frame. I did tell her there is a walk in clinic is [place] , if they wantedto stay with [facility]. Pt's understood and thanked me. * Telephone Encounter - Danya Sheikh LPN - 03/09/2024 3:35 PM EST Correct. Patient must be seen by a urology provider before nursing can remove the catheter. Alternatively, patient can go back to ER to have it removed, or follow up with [facility]. [facility] if he cannot be [...] 2-3 days. PT was D/C today from [facility] with a catheter. They thought pt had uti but his kidney function decreased so they are saying it is urinary retention. No openings Please advise documented in this encounter Plan of Treatment Upcoming Encounters Date Type Department Care Team (Late st Contact Info) Description 03/17/2024 9:00 AM EST Office Visit [facility] [address] [place] [address] Andrea Mayer, DO [address] [place] [address] 04/05/2024 11:30 AM EST Office Visit Urology Reji Haines [address] [place] [address] Ruth Gonsales PA-C [address] [place], [place] [id number] 04/14/2024 9:00 AM EST Office Visit Palliative Medicine [facility] [address] [place] [address] Josseline Post MD 400 [facility] [place] [address] 04/15/2024 9:00 AM EST Office Visit Neurology [address] [place] [address] Heather Franklin CRNP 100 [facility] [address] 05/20/2024 1:40 PM EST Office Visit [facility] [address] [place] [address] Andrea Mayer, [address] [place] [address] 10/28/2024 11:40 AM EDT Office Visit Family Practice [facility] [address] [place] [address] Andrea Mayer DO [address] [place] [address] Scheduled Orders Name Type Priority Associated Diagnoses [...] Additional history exists CKD HGB USE SMARTSET 22867 11/24/202411/24, 11/25/2023, 06/11/2023, Additional history exists CKD PHOS USE SMARTSET 90056 11/24/202411/06, 06/11/2023, 12/24/2019 Depression Screening 01/21/2025 01/22/2024 [...] Documents on File Type Date Recorded Patient Lands Resource Manager Expl 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 Care Teams Mergers And Acquisitions Consultant Relationship Specialty Start Date End Date Andrea Mayer DO [address] [place] [address] PCP - General Family Medicine 05/26/23 documented as of this encounter
--- OUTSIDE RECORDS SUMMARY | 2024-03-26 10:44 | External Medical Summary | Summary of Care ---
Author Name Unknown Organization [facility] Address [address] [place] [address] Phone [phone] Care Team Providers Care Glass Wool Blanket Machine Feeder Name Role Phone Charles Mayer DO Primary Care Provider Reason for Visit * Reason Comments Medication Refill Encounter Details Date Type Department Care Team (Late st Contact Info) Description 03/02/2024 Refill Family Practice [facility] 132 [facility] [place] [address] Juany Franklin CRNP [address] [place] [address] Coronary artery disease involving [place] coronary artery of [place] heart without angina pectoris; Stage 3a chronic [...] as of 03/16/2024) Medications MORPHINE 5 MG/ML CHAPLAIN SQ INFUSION (AMBULATORY)[place] cations:MEDICATI ON USE AGREEMENT [...] Oral Tablet (Desyrel)Indicat ions:Coronary artery disease involving [place] coronary artery of [place] heart without angina pectoris,Stage 3a chronic kidney [...] inj 1,000 mcgIndications:B12 deficiency 1000 mcg IM [id number] 01/28/2024 12/29/2024 Active documented as of this [...] anemia 04/24/2017 Coronary artery disease invo lving [place] heart without angina pectoris 04/18/2016 Incomplete tear of right rotator cuff 04/15/2016 Overview (04/15/2016): 04/23 Dr Eduardo guerrero. Anxiety 09/28/2014 Diverticulitis of colon 09/16/2014 Intestinal postoperative nonabsorption 1 CALLAHAN RESEARCH OTHER*[id number] 09/14/2009 MEDICATION USE AGREEMENT 05/19/2008 Overview (05/19/2008): [...] S/p gastric bypass. 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 Thank you, Porsha Austin CPhT II Telephone Operator Receptionist [facility] ([facility]) 03/03/2024, 1:12 [...] appropriate. * Telephone Encounter - Yuval Botello [facility] - 03/03/2024 8:55 AM EST Pending Prescriptions: [...] preferred pharmacy and medication before forwarding?yes Pharmacy: [facility] Pending Prescriptions: Disp Refills [...] [address] [place] [address] Ruth Gonsales PA-C [address] [place] [address] 04/14/2024 9:00 AM EST Office Visit Palliative Medicine [facility] [address] [place] [address] Josseline Post MD [address] [place] [address] 04/15/2024 9:00 AM EST Office Visit Neurology [address] [place] [address] Juany Franklin CRNP [address] [place], [place] [id number] 05/20/2024 1:40 PM EST Office [facility] [address] [facility] [address] Charles Mayer, DO 132 [facility] [place] [address] 10/28/2024 11:40 AM EDT Office Visit [facility] [address] [facility] [address] Charles Mayer, [address] [facility] [place] [address] Scheduled Procedures Name Priority Associated Diagnoses Date/Ti [...] Additional history exists CKD HGB USE SMARTSET 32901 11/24/202411/24, 11/25/2023, 06/11/2023, Additional history exists CKD PHOS USE SMARTSET 32769 11/24/202411/06, 06/11/2023, 12/24/2019 Depression Screening 01/21/2025 01/22/2024 [...] Visit Diagnoses Diagnosis Coronary artery disease involving [place] coronary artery of [place] heart without angina pectoris Stage 3a chronic kidney disease Gastroesophageal reflux disease without esophagitis Esophageal reflux Dementia (HCC) Dementia, unspecified, without behavioral disturbance documented in this encounter Advance Directives Documents on File Type Date Recorded Patient Residential Program Worker Expl 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 Care Teams Glass Wool Blanket Machine Feeder Relationship Specialty Start Date End Date Charles Mayer DO [address] [place] [address] PCP - General Family Medicine 05/26/23 documented as of this encounter
--- OUTSIDE RECORDS SUMMARY | 2024-03-26 10:44 | External Medical Summary | Summary of Care ---
Author Name Unknown Organization [facility] Address [address] [place] [address] Phone [phone] Care Team Providers Care Middle Card Tender Name Role Phone Charles Mayer DO Primary Care Provider Reason for Visit * Reason Comments Outpatient Testing Encounter Details Date Type Department Care Team (Late st Contact Info) Description 03/17/2024 7:40 AM EST Laboratory Laboratory, [address] [phone] Av, Specimen Drop Off [address] [phone] Other iron deficiency anemia; S/P gastric bypass; Dysuria Allergies Active Allergy Reactions Criticality Noted [...] as of 03/17/2024) Medications MORPHINE 5 MG/ML PADDOCK JUDGE SQ INFUSION (AMBULATORY)Ind ications:MEDICA TION USE AGREEMENT [...] Oral Tablet (Desyrel)Indica tions:Coronary artery disease involving [place] coronary artery of [place] heart without angina pectoris,Stage 3a chronic kidney [...] inj 1,000 mcgIndications:B12 deficiency 1000 mcg IM [id number] 01/28/2024 12/29/2024 Active documented as of this [...] anemia 04/24/2017 Coronary artery disease invo lving [place] heart without angina pectoris 04/18/2016 Incomplete tear of right rotator cuff 04/15/2016 Overview (04/15/2016): 04/23 Dr Eduardo guerrero. Anxiety 09/28/2014 Diverticulitis of colon 09/16/2014 Intestinal postoperative nonabsorption 1 CALLAHAN RESEARCH OTHER*[id number] 09/14/2009 MEDICATION USE AGREEMENT 05/19/2008 Overview (05/19/2008): [...] S/p gastric bypass. 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 Not on file Not on file documented as of this encounter Miscellaneous Notes * Addendum Note - Leona Vu TECH - 03/17/2024 7:54 AM ESTAddended by: LEONA VU on: 03/17/2024 07:54 AM Modules accepted: Orders documented in this encounter Plan of Treatment Upcoming Encounters Date Type Department Care Team (Late st Contact Info) Description 04/05/2024 11:30 AM EST Office Visit Urology Reji Haines [address] [place] [address] Ruth Gonsales PA-C [address] [place] [address] 04/14/2024 9:00 AM EST Office Visit Palliative Medicine [facility] [address] [place] [address] Josseline Post MD [address] [place] [address] 04/15/2024 9:00 AM EST Office Visit Neurology [address], [place] [phone] Heather Franklin, PHYSICIAN SCIENTIST [address] [facility] [place] [address] 05/20/2024 1:40 PM EST Office Visit [facility] [address] [facility] [address] Charles Mayer, DO [address] [facility] [place] [address] 10/28/2024 11:40 AM EDT Office Visit [facility] [address] [facility] [place] [address] Charles Mayer, DO [address] [place] [address] Pending Results Name Type Priority Associated Diagnoses Date /Time COPPER, SERUM OR PLASMA Lab Routine Other iron deficiency anemia S/P gastric bypass 03/17/2024 7:32 AM EST ZINC Lab Routine Other iron deficiency anemia S/P gastric bypass 03/17/2024 7:32 AM EST CULTURE, URINE, QUANTITATIVE Lab Routine Dysuria 03/17/2024 7:32 AM EST Scheduled Orders Name Type Priority Associated Diagnoses Orde r Schedule EXTRA TUBES Lab Routine Ordered: 03/07 EXTRA URINE Lab Routine Ordered: 03/07 Scheduled Procedures Name Priority Associated Diagnoses Date/Ti me ESOPHAGOGASTRODUODENOSCOPY ( EGD), FLEXIBLE, TRANSORAL, DIAGNOSTIC Recall Esophageal reflux Health Maintenance Due Date Last Done Comments Cologuard 2008 Fecal Occult Blood Test 2008 Sigmoidoscopy 2008 Zoster Vaccines (1 of 2) 2013 Colonoscopy 06/03/2018 06/03/2017, 06/03/2017 Colorectal Cancer Screening 06/03/2018 COVID-19 Vaccine ( season) 2023 09/11/2020, 08/14/2020 Albumin/Creatinine Ratio 06/11/2024 06/12/2023, 06/06/2014 GFR 07/28/2024 01/28/2024, 11/06, 10/27/2023, Additional history exists CKD HGB USE SMARTSET 66603 11/24/202411/24, 11/25/2023, 06/11/2023, Additional history exists CKD PHOS USE SMARTSET 01353 11/24/2024 08, 06/11/2023, 12/24/2019 Depression Screening 01/21/2025 [...] of this encounter Visit Diagnoses Diagnosis Other iron deficiency anemia S/P gastric bypass Bariatric surgery status Dysuria documented in this encounter Advance Directives Documents on File Type Date Recorded Patient Gate Clerk Expl 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 Care Teams Middle Card Tender Relationship Specialty Start Date End Date Charles Mayer DO [address] [place] [address] PCP - General Family Medicine 05/26/23 documented as of this encounter
--- OUTSIDE RECORDS SUMMARY | 2024-03-26 10:44 | External Medical Summary ---
Author Name Unknown Address Unknown Organization : Laboratory Report Ordering Provider Test Date Status BLAKE LAWSON 03/17/2024 07:32:56 Final Observation Date Value Abnormality Reference (Units ) Status Copper 03/17/2024 07:32:56 81 70-175 (mc g/dL) Final This test was developed and its analytical performance
characteristics have been determined by [employer] [place], [place]. It has
not been cleared or approved by the U.S. Food and Drug
Administration. This assay has been validated pursuant
to the CLIA regulations and is used for clinical
purposes.

Test Performed at:
[facility]
[address] [facility] [address]
Matt Francisco M.D., Ph.D.,Director of Laboratories Performing Location
--- OUTSIDE RECORDS SUMMARY | 2024-03-26 10:44 | External Medical Summary ---
Author Name Unknown Address Unknown Organization K01:[facility] - [address] [place] [id number] Laboratory Report Ordering Provider Test Date Status LUBNA MENDEZ 03/17/2024 07:32:56 Final Observation Date Value Abnormality Reference (Units) Status Bacteria identified in Specimen by Culture 03/17/2024 07:32:56 Multiple brett suggests contamination or colonization. Clinical correlation needed. Consider repeat testing if symptoms worsen. Final Test: Culture, Urine, Quanti tative
Specimen Source: Urine, Catheter
Specimen Type: Urine
Specimen Date: 03/17/2024731
Result Date: 03/18/20241008
Result Status: Final result
Resulting Lab: [facility]
[address]
[facility] [address]

CULTURE

Multiple brett suggests contamination or colonization. Clinical correlation
needed. Consider repeat testing if symptoms worsen.

null Performing Location LAB[facility]ATORY [facility] - [address] [place] [id number]
--- OUTSIDE RECORDS SUMMARY | 2024-03-26 10:44 | External Medical Summary | Summary of Care ---
Author Name Unknown Organization [facility] Address [address] [place] [address] Phone [phone] Care Team Providers Care Cto Name Role Phone Charles Mayer DO Primary Care Provider Reason for Visit * Reason Onset Date Comments Advice 03/11/2024 Encounter Details Date Type Department Care Team (Late st Contact Info) Description 03/11/2024 Telephone Urology Reji Haines [address] [place] [address] Services, Scheduling [address] [place] [address] Advice Allergies Active Allergy Reactions Criticality Noted [...] as of this encounter (statuses as of 03/12/2024) Medications MORPHINE 5 MG/ML ELECTRONICS TECHNOLOGY INSTRUCTOR SQ INFUSION (AMBULATORY)[place] cations:MEDICATI ON USE AGREEMENT [...] Oral Tablet (Desyrel)Indicat ions:Coronary artery disease involving [place] coronary artery of [place] heart without angina pectoris,Stage 3a chronic kidney disease (HCC),Gastroesop hageal reflux disease without esophagitis,Oscar ntia ([facility]) Take one-half tablet by mouth at bedtime [...] times a day as needed (pain). Active Hospital, Clinic, or Other Facility Administered Medication Ordered Dose Route Frequency Start Date End Date Status Vitamin B-12 (Cyanocobalamin) inj 1,000 mcgIndications:B12 deficiency 1000 mcg IM [id number] 01/28/2024 12/29/2024 Active documented as of this encounter (statuses as of 03/12/2024) Active Problems Problem Noted Date Diagnosed Date [...] anemia 04/24/2017 Coronary artery disease invo lving [place] heart without angina pectoris 04/18/2016 Incomplete tear of right rotator cuff 04/15/2016 Overview (04/15/2016): 04/23 Dr Eduardo guerrero. Anxiety 09/28/2014 Diverticulitis of colon 09/16/2014 Intestinal postoperative nonabsorption 1 CALLAHAN RESEARCH OTHER*[id number] 09/14/2009 MEDICATION USE AGREEMENT 05/19/2008 Overview (05/19/2008): See kim GERD (gastroesophageal reflux disease) Gout S/P gastric bypass S/P spinal fusion documented as of this encounter (statuses as of 03/12/2024) Resolved Problems Problem Noted Date Diagnosed Date Resolved Date Kidney disease, chronic, sta ge III (GFR 30-59 ml/min) 11/16/2018 02/17/2020 Overview: Per CKD protocol Well adult exam 04/18/2016 09/24/2018 Overview (06/01/2018): ??Need eval hypoglycemia? S/p gastric bypass. 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 She had concern for the patients penis/urethra, he is sore around the catheter site, she is using Vaseline to help with the irration. She was advised to continue Vaseline- lightly, Azo for urinary symptoms, and to hydrate with water/Gatorades. Will call if she has further questions/concerns, Josefa norwood LPN * Telephone Encounter - Tasha Gant OSA - 03/11/2024 8:26 AM EST Pt Sugey calling - could not make appt today due to bad roads/weather would like to speak to someone about catheter Transferred call to [facility] documented in this encounter Plan of Treatment Upcoming Encounters Date Type Department Care Team (Late st Contact Info) Description 03/17/2024 9:00 AM EST Office Visit [facility] [address] [place] [address] Charles Mayer DO [address] [facility] [place] [address] 04/05/2024 11:30 AM EST Office Visit Urology Reji Haines [address] [place] [address] Ruth Gonsales PA-C [address] [place] [phone] 04/15/2024 9:00 AM EST Office Visit Neurology [address] [place] [phone] Heather Franklin CRNP [address] [facility] [place] [address] 05/20/2024 1:40 PM EST Office Visit [facility] [address] [place] [address] Charles Mayer, DO [address] [place] [address] 10/28/2024 11:40 AM EDT Office Visit [facility] [address] [place] [address] Charles Mayer, DO [address] [place] [address] Scheduled Procedures Name Priority Associated Diagnoses Date/Ti [...] Additional history exists CKD HGB USE SMARTSET 02674 11/24/202411/24, 11/25/2023, 06/11/2023, Additional history exists CKD PHOS USE SMARTSET 46963 11/24/202411/06, 06/11/2023, 12/24/2019 Depression Screening 01/21/2025 01/22/2024 [...] Documents on File Type Date Recorded Patient Customs Inspector Expl 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 Care Teams Cto Relationship Specialty Start Date End Date Charles Mayer DO [address] [place] [address] PCP - General Family Medicine 05/26/23 documented as of this encounter
--- OUTSIDE RECORDS SUMMARY | 2024-03-26 10:44 | External Medical Summary ---
Author Name Unknown Address Unknown Organization : Laboratory Report Ordering Provider Test Date Status BLAKE LAWSON 03/17/2024 07:32:56 Final Observation Date Value Abnormality Reference (Units ) Status Zinc, level 03/17/2024 07:32:56 80 60-130 ( mcg/dL) Final This test was developed and its analytical performance
characteristics have been determined by [employer] [place], [place]. It has
not been cleared or approved by the U.S. Food and Drug
Administration. This assay has been validated pursuant
to the CLIA regulations and is used for clinical
purposes.

Test Performed at:
[facility] [place]
[address] [facility] [place] [address]
Matt Francisco M.D., Ph.D.,Director of Laboratories Performing Location
--- OUTSIDE RECORDS SUMMARY | 2024-03-26 10:44 | External Medical Summary | Summary of Care ---
Author Name Unknown Organization [facility] Address [address] [place] [address] Phone [phone] Care Team Providers Care Senior Database Engineer Name Role Phone Charles Mayer DO Primary Care Provider Reason for Visit * Reason Comments Outpatient Testing Encounter Details Date Type Department Care Team (Late st Contact Info) Description 03/17/2024 7:40 AM EST Laboratory Laboratory, [address] [phone] Av, Specimen Drop Off [address] [phone] Other iron deficiency anemia; S/P gastric bypass; [...] as of 03/17/2024) Medications MORPHINE 5 MG/ML METAL WINDOW SCREEN ASSEMBLER SQ INFUSION (AMBULATORY)Ind ications:MEDICA TION USE AGREEMENT [...] Oral Tablet (Desyrel)Indica tions:Coronary artery disease involving [place] coronary artery of [place] heart without angina pectoris,Stage 3a chronic kidney [...] inj 1,000 mcgIndications:B12 deficiency 1000 mcg IM [id number] 01/28/2024 12/29/2024 Active documented as of this [...] anemia 04/24/2017 Coronary artery disease invo lving [place] heart without angina pectoris 04/18/2016 Incomplete tear of right rotator cuff 04/15/2016 Overview (04/15/2016): 04/23 Dr Eduardo guerrero. 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 [address] Josseline Post MD [address] [place], [place] [address] [address] 04/15/2024 9:00 AM EST Office Visit Neurology [address] [place] [phone] Heather Franklin CRNP [address] [facility] [place] [address] 05/20/2024 1:40 PM EST Office Visit [facility] [address] [place] [address] Charles Mayer, DO [address] [place] [address] 10/28/2024 11:40 AM EDT Office Visit [facility] [address] [place] [address] Charles Mayer, DO [address] [place] [address] Pending Results Name Type Priority Associated Diagnoses Date /Time COPPER, SERUM OR PLASMA Lab Routine Other iron deficiency anemia S/P gastric bypass 03/17/2024 7:32 AM EST ZINC Lab Routine Other iron deficiency anemia S/P gastric bypass 03/17/2024 7:32 AM EST CULTURE, URINE, QUANTITATIVE Lab Routine Dysuria 03/17/2024 7:32 AM EST Scheduled Procedures Name Priority Associated Diagnoses [...] Additional history exists CKD HGB USE SMARTSET 12455 11/24/202411/24, 11/25/2023, 06/11/2023, Additional history exists CKD PHOS USE SMARTSET 31715 11/24/2024 08/2 , 06/11/2023, 12/24/2019 Depression Screening [...] Documents on File Type Date Recorded Patient Unattended Ground Sensor Specialist Expl 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 Care Teams Senior Database Engineer Relationship Specialty Start Date End Date Charles Mayer DO [address] [place] [address] PCP - General Family Medicine 05/26/23 documented as of this encounter
--- OUTSIDE RECORDS SUMMARY | 2024-03-26 10:45 | External Medical Summary | Summary of Care ---
Author Name Unknown Organization [facility] Address [address] [place] [address] Phone [phone] Care Team Providers Care Quantitative Analyst Name Role Phone Charles Mayer DO Primary Care Provider Reason for Visit * Reason Onset Date Comments Appointment 03/09/2024 Encounter Details Date Type Department Care Team (Late st Contact Info) Description 03/09/2024 Telephone Urology, [facility] [address] [place], [place] [phone] Services, Scheduling [address] [place] [address] Appointment Allergies Active Allergy Reactions Criticality Noted Date [...] as of this encounter (statuses as of 03/09/2024) Medications MORPHINE 5 MG/ML INDIAN BLANKET WEAVER SQ INFUSION (AMBULATORY)[place] cations:MEDICATI ON USE AGREEMENT [...] Oral Tablet (Desyrel)Indicat ions:Coronary artery disease involving [place] coronary artery of [place] heart without angina pectoris,Stage 3a chronic kidney disease (HCC),Gastroesop hageal reflux disease without esophagitis,Oscar ntia ([facility]) Take one-half tablet by mouth [...] inj 1,000 mcgIndications:B12 deficiency 1000 mcg IM [id number] 01/28/2024 12/29/2024 Active documented as of this encounter (statuses as of 03/09/2024) Active Problems Problem Noted Date Diagnosed Date [...] anemia 04/24/2017 Coronary artery disease invo lving [place] heart without angina pectoris 04/18/2016 Incomplete tear of right rotator cuff 04/15/2016 Overview (04/15/2016): 04/23 Dr Eduardo guerrero. Anxiety 09/28/2014 Diverticulitis of colon 09/16/2014 Intestinal postoperative nonabsorption 1 CALLAHAN RESEARCH OTHER*[id number] 09/14/2009 MEDICATION USE AGREEMENT 05/19/2008 Overview (05/19/2008): See kim GERD (gastroesophageal reflux disease) Gout S/P gastric bypass S/P spinal fusion documented as of this encounter (statuses as of 03/09/2024) Resolved Problems Problem Noted Date Diagnosed Date [...] Tobacco use disorder 09/18/2009 011 Bariatric Proteinuria Research*[id number] 09/14/2009 12/27/2009 Organic sleep disorder 06/22/200910/10 Morbid [...] as of this encounter (statuses as of 03/09/2024) Immunizations Name Administration Dates Next Due COVID-19 [...] 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 Told her we unfortunately don't have an appointment in that time frame. I did tell her there is a walk in clinic is [place] , if they wantedto stay with [facility]. Pt's understood and thanked me. * Telephone Encounter - Danya Sheikh LPN - 03/09/2024 3:35 PM EST Correct. Patient must be seen by a urology provider before nursing can remove the catheter. Alternatively, patient can go back to ER to have it removed, or follow up with [facility]. Or, go to an outlying [facility] Urology clinic if he cannot be [...] was D/C today from [facility] with a catheter. They thought pt had uti but his kidney function decreased so they are saying it is urinary retention. No openings Please advise documented in this encounter Plan of Treatment Upcoming Encounters Date Type Department Care Team (Late st Contact Info) Description 03/10/2024 1:00 PM EST Office Visit Palliative Medicine [facility] [address] [place] [phone] Josseline Post MD [address] [place] [address] 04/15/2024 9:00 AM EST Office Visit Neurology [address] [place] [address] Heather Franklin CRNP [address] [place] [address] 05/20/2024 1:40 PM EST Office Visit [facility] [address] [place] [address] Charles Mayer, DO [address] [place] [address] 10/28/2024 11:40 AM EDT Office Visit [facility] [address] [place] [address] Charles Mayer, [address] [place] [address] Scheduled Procedures Name Priority Associated Diagnoses Date/Ti [...] Additional history exists CKD HGB USE SMARTSET 78014 11/24/202411/24, 11/25/2023, 06/11/2023, Additional history exists CKD PHOS USE SMARTSET 13440 11/24/202411/06, 06/11/2023, 12/24/2019 Depression Screening 01/21/2025 01/22/2024 [...] Documents on File Type Date Recorded Patient Micropaleontologist Expl 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 Care Teams Quantitative Analyst Relationship Specialty Start Date End Date Charles Mayer DO [address] [place] [address] PCP - General Family Medicine 05/26/23 documented as of this encounter
--- OUTSIDE RECORDS SUMMARY | 2024-03-26 10:45 | External Medical Summary | Summary of Care ---
Author Name Unknown Organization [facility] Address [address] [place] [address] Phone [phone] Care Team Providers Care Paramedic Name Role Phone Charles Mayer DO Primary Care Provider Reason for Visit * Reason Onset Date Comments Advice 03/09/2024 Encounter Details Date Type Department Care Team (Late st Contact Info) Description 03/09/2024 Telephone Family Medicine [address] [phone] Kaleb Griffin MD [address] [place] [address] [place] [phone] Advice Allergies Active Allergy Reactions Criticality Noted [...] as of this encounter (statuses as of 03/10/2024) Medications MORPHINE 5 MG/ML ANCHORER SQ INFUSION (AMBULATORY)[place] cations:MEDICATI ON USE AGREEMENT [...] Oral Tablet (Desyrel)Indicat ions:Coronary artery disease involving [place] coronary artery of [place] heart without angina pectoris,Stage 3a chronic kidney disease (HCC),Gastroesop hageal reflux disease without esophagitis,Oscar ntia ([facility]) Take one-half tablet by mouth [...] inj 1,000 mcgIndications:B12 deficiency 1000 mcg IM [id number] 01/28/2024 12/29/2024 Active documented as of this encounter (statuses as of 03/10/2024) Active Problems Problem Noted Date Diagnosed Date [...] anemia 04/24/2017 Coronary artery disease invo lving [place] heart without angina pectoris 04/18/2016 Incomplete tear of right rotator cuff 04/15/2016 Overview (04/15/2016): 04/23 Dr Eduardo guerrero. Anxiety 09/28/2014 Diverticulitis of colon 09/16/2014 Intestinal postoperative nonabsorption 1 CALLAHAN RESEARCH OTHER*[id number] 09/14/2009 MEDICATION USE AGREEMENT 05/19/2008 Overview (05/19/2008): See kim GERD (gastroesophageal reflux disease) Gout S/P gastric bypass S/P spinal fusion documented as of this encounter (statuses as of 03/10/2024) Resolved Problems Problem Noted Date Diagnosed Date Resolved Date Kidney disease, chronic, sta ge III (GFR 30-59 ml/min) 11/16/2018 02/17/2020 Overview: Per CKD protocol Well adult exam 04/18/2016 09/24/2018 Overview (06/01/2018): ??Need eval hypoglycemia? S/p gastric bypass. 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 Patient is having low abdominal pain with nausea. Patient admitted to the hospital for urinary retention and was placed on a urinary catheter Due to recent catheter insertion with a new onset of abdominal pain advise ER evaluation Pts agreed with the recommendation documented in this encounter Plan of Treatment Upcoming Encounters Date Type Department Care Team (Late st Contact Info) Description 03/10/2024 1:00 PM EST Office Visit Palliative Medicine [facility] [address] [place] [address] Josseline Post MD [address] [place] [address] [place] [address] 03/11/2024 8:00 AM EST Office Visit Urology Reji Haines [address] [place] [address] Nicolás Velarde MD [address] [place] [address] 04/15/2024 9:00 AM EST Office Visit Neurology [address] [place], [place] [phone] Heather Franklin, DOMINIC [address] [place] [address] 05/20/2024 1:40 PM EST Office Visit [facility] [place] [address] [place] [address] Charles Mayer, DO [address] [place] [address] 10/28/2024 11:40 AM EDT Office Visit [facility] [place] [address] [place] [address] Charles Mayer, DO [address] [facility] [place] [address] Scheduled Procedures Name Priority Associated Diagnoses Date/Ti [...] Additional history exists CKD HGB USE SMARTSET 34927 11/24/202411/24, 11/25/2023, 06/11/2023, Additional history exists CKD PHOS USE SMARTSET 40168 11/24/202411/06, 06/11/2023, 12/24/2019 Depression Screening 01/21/2025 01/22/2024 [...] Documents on File Type Date Recorded Patient Weigher Alloy Expl 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 Care Teams Paramedic Relationship Specialty Start Date End Date Charles Mayer DO [address] [place] [address] PCP - General Family Medicine 05/26/23 documented as of this encounter
--- OUTSIDE RECORDS SUMMARY | 2024-03-26 10:45 | External Medical Summary | Summary of Care ---
Author Name Unknown Organization [facility] Address [address] [place] [address] Phone [phone] Care Team Providers Care Windows Application Administrator Name Role Phone Charles Mayer DO Primary Care Provider Encounter Details Date Type Department Care Team (Late st Contact Info) Description 03/11/2024 Population Health External Data Unspecified Department Allergies [...] as of this encounter (statuses as of 03/11/2024) Medications MORPHINE 5 MG/ML SUPERVISOR UNDERWRITING CLERKS SQ INFUSION (AMBULATORY)[place] cations:MEDICATI ON USE AGREEMENT [...] Oral Tablet (Desyrel)Indicat ions:Coronary artery disease involving [place] coronary artery of [place] heart without angina pectoris,Stage 3a chronic kidney [...] inj 1,000 mcgIndications:B12 deficiency 1000 mcg IM [id number] 01/28/2024 12/29/2024 Active documented as of this encounter (statuses as of 03/11/2024) Active Problems Problem Noted Date Diagnosed Date [...] anemia 04/24/2017 Coronary artery disease invo lving [place] heart without angina pectoris 04/18/2016 Incomplete tear of right rotator cuff 04/15/2016 Overview (04/15/2016): 04/23 Dr Eduardo guerrero. Anxiety 09/28/2014 Diverticulitis of colon 09/16/2014 Intestinal postoperative nonabsorption 1 CALLAHAN RESEARCH OTHER*[id number] 09/14/2009 MEDICATION USE AGREEMENT 05/19/2008 Overview (05/19/2008): See kim GERD (gastroesophageal reflux disease) Gout S/P gastric bypass S/P spinal fusion documented as of this encounter (statuses as of 03/11/2024) Resolved Problems Problem Noted Date Diagnosed Date [...] Tobacco use disorder 09/18/2009 011 Bariatric Proteinuria Research*[id number] 09/14/2009 12/27/2009 Organic sleep disorder 06/22/200910/10 Morbid [...] as of this encounter (statuses as of 03/11/2024) Immunizations Name Administration Dates Next Due COVID-19 [...] 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 Not on file documented as of this encounter Plan of Treatment Upcoming Encounters Date Type Department Care Team (Late st Contact Info) Description 03/17/2024 9:00 AM EST Office Visit [facility] [address] [place] [address] Charles Mayer, [address] [place] [address] 04/15/2024 9:00 AM EST Office Visit Neurology [address] [address] [place] [phone] Heather Franklin, DOMINIC [address] [facility] [place] [phone] 05/20/2024 1:40 PM EST Office Visit [facility] [address] [place] [address] Charles Mayer DO [address] [place] [address] 10/28/2024 11:40 AM EDT Office Visit [facility] [address] [place] [address] Charles Mayer DO [address] [place] [address] Scheduled Procedures Name Priority Associated Diagnoses Date/Ti [...] Additional history exists CKD HGB USE SMARTSET 85610 11/24/202411/24, 11/25/2023, 06/11/2023, Additional history exists CKD PHOS USE SMARTSET 38989 11/24/202411/06, 06/11/2023, 12/24/2019 Depression Screening 01/21/2025 01/22/2024 [...] Documents on File Type Date Recorded Patient Library Services Dean Expl 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 Care Teams Windows Application Administrator Relationship Specialty Start Date End Date Charles Mayer DO [address] [place] [address] PCP - General Family Medicine 05/26/23 documented as of this encounter
--- OUTSIDE RECORDS SUMMARY | 2024-03-26 10:45 | External Medical Summary | Summary of Care ---
Author Name Unknown Organization [facility] Address [address] [place] [address] Phone [phone] Care Team Providers Care Marketing Operations Intern Name Role Phone Charles Mayer DO Primary Care Provider Reason for Visit * Reason Onset Date Comments Appointment 03/09/2024 Encounter Details Date Type Department Care Team (Late st Contact Info) Description 03/09/2024 Telephone Urology, [facility] [address] [place], [place] [id number] Services, Scheduling [address] [place] [address] Appointment Allergies Active Allergy Reactions Criticality Noted [...] as of 03/11/2024) Medications MORPHINE 5 MG/ML KICKBOXING INSTRUCTOR SQ INFUSION (AMBULATORY)[place] cations:MEDICATI ON USE [...] Oral Tablet (Desyrel)Indicat ions:Coronary artery disease involving [place] coronary artery of [place] heart without angina pectoris,Stage 3a chronic kidney disease (HCC),Gastroesop hageal reflux disease without esophagitis,Oscar ntia ([facility]) Take one-half tablet by mouth at bedtime [...] inj 1,000 mcgIndications:B12 deficiency 1000 mcg IM [id number] 01/28/2024 12/29/2024 Active documented as of this [...] anemia 04/24/2017 Coronary artery disease invo lving [place] heart without angina pectoris 04/18/2016 Incomplete tear of right rotator cuff 04/15/2016 Overview (04/15/2016): 04/23 Dr Eduardo guerrero. 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 I spoke to patient's and they took that appt. * Telephone Encounter - Erin Hendrix OSA - 03/09/2024 3:43 PM EST I spoke to Patient's and told explain message below. Told her we unfortunately don't have an appointment in that time frame. I did tell her there is a walk in clinic is [place] , if they wantedto stay with [facility]. Pt's understood and thanked me. * Telephone Encounter - Danya Sheikh LPN - 03/09/2024 3:35 PM EST Correct. Patient must be seen by a urology provider before nursing can remove the catheter. Alternatively, patient can go back to ER to have it removed, or follow up with [facility]. Or, go to an [facility]rology clinic if he cannot be [...] 2-3 days. PT was D/C today from [facility] with a catheter. They thought pt had uti but his kidney function decreased so they are saying it is urinary retention. No openings Please advise documented in this encounter Plan of Treatment Upcoming Encounters Date Type Department Care Team (Late st Contact Info) Description 03/17/2024 9:00 AM EST Office Visit [facility] [address] [place] [address] Charles Mayer, [address] [place] [address] 04/05/2024 11:30 AM EST Office Visit Urology Reji Haines [address] [place] [address] Ruth Gonsales PA-C [address] [place] [address] 04/15/2024 9:00 AM EST Office Visit Neurology [address] [place] [phone] Heather Franklin, DOMIN[place] [address] [place] [phone] 05/20/2024 1:40 PM EST Office Visit [facility] [address] [place] [address] Charles Mayer, DO [address] [facility] [place] [address] 10/28/2024 11:40 AM EDT Office Visit [facility] [address] [place] [address] Charles Mayer, DO [address] [facility] [place] [address] Scheduled Procedures Name Priority Associated Diagnoses Date/Ti [...] Additional history exists CKD HGB USE SMARTSET 21845 11/24/202411/24, 11/25/2023, 06/11/2023, Additional history exists CKD PHOS USE SMARTSET 38301 11/24/2024 08, 06/11/2023, 12/24/2019 Depression Screening 01/21/2025 [...] Documents on File Type Date Recorded Patient Health Science Instructor Expl 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 Care Teams Marketing Operations Intern Relationship Specialty Start Date End Date Charles Mayer DO [address] [place] [address] PCP - General Family Medicine 05/26/23 documented as of this encounter
--- OUTSIDE RECORDS SUMMARY | 2024-03-26 10:45 | External Medical Summary | Summary of Care ---
Author Name Unknown Organization [facility] Address [address] [place] [address] Phone [phone] Care Team Providers Care Test Equipment Mechanic Name Role Phone Charles Mayer DO Primary Care Provider Reason for Visit * Reason Onset Date Comments Appointment 03/09/2024 Encounter Details Date Type Department Care Team (Late st Contact Info) Description 03/09/2024 Telephone Urology, [facility] [address] [place], [place] [phone] Services, Scheduling [address] [place] [address] Appointment Allergies Active Allergy Reactions Criticality Noted [...] as of 03/09/2024) Medications MORPHINE 5 MG/ML PLATE GLASS INSTALLER HELPER SQ INFUSION (AMBULATORY)[place] cations:MEDICATI ON USE AGREEMENT [...] Oral Tablet (Desyrel)Indicat ions:Coronary artery disease involving [place] coronary artery of [place] heart without angina pectoris,Stage 3a chronic kidney disease (HCC),Gastroesop hageal reflux disease without esophagitis,Oscar ntia ([facility]) Take one-half tablet by mouth at [...] inj 1,000 mcgIndications:B12 deficiency 1000 mcg IM [id number] 01/28/2024 12/29/2024 Active documented as of this [...] anemia 04/24/2017 Coronary artery disease invo lving [place] heart without angina pectoris 04/18/2016 Incomplete tear of right rotator cuff 04/15/2016 Overview (04/15/2016): 04/23 Dr Eduardo guerrero. Anxiety 09/28/2014 Diverticulitis of colon 09/16/2014 Intestinal postoperative nonabsorption 1 CALLAHAN RESEARCH OTHER*[id number] 09/14/2009 MEDICATION USE AGREEMENT 05/19/2008 Overview (05/19/2008): [...] S/p gastric bypass. 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 Velarde had opening on Mar 11 in [place]. I spoke to patient's and they took that appt. * Telephone Encounter - Erin Hendrix OSA - 03/09/2024 3:43 PM EST I spoke to Patient's and told explain message below. Told her we unfortunately don't have an appointment in that time frame. I did tell her there is a walk in clinic is [place] , if they wantedto stay with [facility]. Pt's understood and thanked me. * Telephone Encounter - Danya Sheikh LPN - 03/09/2024 3:35 PM EST Correct. Patient must be seen by a urology provider before nursing can remove the catheter. Alternatively, patient can go back to ER to have it removed, or follow up with [facility]. Or, go to an outlying [facility] Urology clinic if he cannot be seen [...] 2-3 days. PT was D/C today from [facility] with a catheter. They thought pt had uti but his kidney function decreased so they are saying it is urinary retention. No openings Please advise documented in this encounter Plan of Treatment Upcoming Encounters Date Type Department Care Team (Late st Contact Info) Description 03/10/2024 1:00 PM EST Office Visit Palliative Medicine [facility] [address] [place] [address] Josseline Post MD [address] [facility] [place] [address] 03/11/2024 8:00 AM EST Office Visit Urology Reji Haines [address] [facility] [address] [place] [address] Nicolás Velarde MD [address] [place] [address] 04/15/2024 9:00 AM EST Office Visit Neurology [place] [address] [place] [phone] Heather Franklin CRNP [address] [facility] [place] [id number] 05/20/2024 1:40 PM EST Office Visit [facility] [address] [place] [address] Charles Mayer, DO [address] [place] [address] 10/28/2024 11:40 AM EDT Office Visit [facility] [address] [place] [address] Charles Mayer, DO [address] [place] [address] Scheduled Procedures Name Priority Associated Diagnoses Date/Ti [...] Additional history exists CKD HGB USE SMARTSET 83539 11/24/202411/24, 11/25/2023, 06/11/2023, Additional history exists CKD PHOS USE SMARTSET 63227 11/24/202411/06, 06/11/2023, 12/24/2019 Depression Screening 01/21/2025 01/22/2024 [...] Documents on File Type Date Recorded Patient Multi Punch Operator Expl 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 Care Teams Test Equipment Mechanic Relationship Specialty Start Date End Date Charles Mayer DO [address] [place] [address] PCP - General Family Medicine 05/26/23 documented as of this encounter
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
--- NOTE | 2024-03-26 21:38 | Electrocardiogram Report ---
Test Reason : Blood Pressure : */* mmHG Vent. Rate : 102 BPM Atrial Rate : 102 BPM P-R Int : 124 ms QRS Dur : 152 ms QT Int : 372 ms P-R-T Axes : * 65 13 degrees QTcB Int : 484 ms Sinus tachycardia Right bundle branch block Abnormal ECG When compared with ECG of 09-Mar-2024 00:23, Vent. rate has increased by 41 bpm Right bundle branch block has replaced Incomplete right bundle branch block Confirmed by Villa Jeffrey ([id number]) on 03/26/2024 9:38:30 PM Referred By: REFERRED SELF Confirmed By: Villa Jeffrey
[2024-03-26] MEDS: FAMOTIDINE 40 MG TABLET PO SCH (22:05)
[2024-03-26] MEDS: MIRTAZAPINE TAB 15 MG TAB PO SCH (22:06)
[2024-03-26] MEDS: OLANZapine 5 MG TABLET PO SCH (22:07)
[2024-03-26 22:40] LABS: A calco-baum cmplx NotReported Not Detected (NotDetected); Bact fragilis Not Reported Not Detected (NotDetected); Blood Culture Id Panel See PCR Comment (NotDetected); C auris Not Reported Not Detected (NotDetected); CTX-M Resistant Gene Not Detected (NotDetected); Calbicans Not Reported Not Detected (NotDetected); Candida glabrata Not Reported Not Detected (NotDetected); Candida krusei Not Reported Not Detected (NotDetected); Cneoformans/gatti Not Reported Not Detected (NotDetected); Cparapsilosis Not Reported Not Detected (NotDetected); E cloacae compx Not Reported Not Detected (NotDetected); Efaecalis Not Reported Not Detected (NotDetected); Efaecium Not Reported Not Detected (NotDetected); Enterobacterales Not Reported Not Detected (NotDetected); Escherichia coli Not Reported Not Detected (NotDetected); H influenzae Not Reported Not Detected (NotDetected); IMP Resistant Gene Not Detected (NotDetected); K aerogenes Not Reported Not Detected (NotDetected); KPC Resistant Gene Not Detected (NotDetected); Koxytoca Not Reported Not Detected (NotDetected); Kpneumoniae grp Not Reported Not Detected (NotDetected); Lmonocyt Not Reported Not Detected (NotDetected); N meningitidis Not Reported Not Detected (NotDetected); NDM Resistant Gene Not Detected (NotDetected); P aeruginosa Not Reported DETECTED (NotDetected); Proteus spp Not Reported Not Detected (NotDetected); Salmonella spp Not Reported Not Detected (NotDetected); Staph lugdunensis Not Reported Not Detected (NotDetected); Staph spp. Not Reported Not Detected (NotDetected); Staphaureus Not Reported Not Detected (NotDetected); Staphepi Not Reported Not Detected (NotDetected); Stenmaltophilia Not Reported Not Detected (NotDetected); Strep agal(GrpB) Not Reported Not Detected (NotDetected); Strep pneum Not Reported Not Detected (NotDetected); Strep pyog (GrpA) Not Reported Not Detected (NotDetected); Strep spp Not Reported Not Detected (NotDetected); VIM Resistant Gene Not Detected (NotDetected)
[2024-03-26 22:51] LABS: Pseudomonas aeruginosa DETECTED (NotDetected)
[2024-03-26] MEDS: cefTRIAXone SODIUM 2,000 MG/50 ML BAG IV SCH (23:29)
[2024-03-26] MEDS: CEFEPIME 2000MG 2,000 MG/20 ML SYR IV SCH (23:42)
[2024-03-27 07:12] LABS: Basophils # (auto) 0.03 K/uL (0.00-0.20); Basophils % (auto) 0.3 %; Eosinophils # (auto) 0.03 K/uL (0.00-0.50); Eosinophils % (auto) 0.3 %; Hematocrit (blood only) 31.5 % (42.0-52.0); Hemoglobin 10.2 g/dl (14.0-18.0); Immature Granulocytes # (auto) 0.07 K/uL (0.01-0.20); Immature Granulocytes % (auto) 0.7 %; Lymphocytes # (auto) 0.71 K/uL (1.20-3.40); Lymphocytes % (auto) 7.1 %; Mean Corpuscular Hemoglobin 29.2 pg (25.0-34.0); Mean Corpuscular Hgb Conc 32.4 g/dL (32.0-36.0); Mean Corpuscular Volume 90.3 fL (80.0-100.0); Mean Platelet Volume 9.8 fL (9.4-12.4); Monocytes # (auto) 0.59 K/uL (0.11-0.59); Monocytes % (auto) 5.9 %; Neutrophils # (auto) 8.53 K/uL (1.40-6.50); Neutrophils % (auto) 85.7 %; Platelet Count 154 K/uL (130-400); RDW Coefficient of Variation 15.4 % (11.5-14.5); RDW Standard Deviation 50.4 fL (36.4-46.3); Red Blood Count 3.49 M/uL (4.70-6.10); White Blood Count 9.96 K/ul (4.8-10.8)
[2024-03-27 07:28] LABS: Albumin Level 3.1 gm/dl (3.4-5.0); BUN Creatinine Ratio 12.4 (10-20); Bilirubin Direct 0.2 mg/dl (0-0.2); Bilirubin,Total 0.8 mg/dl (0.2-1.0); Calcium 8.5 mg/dl (8.6-10.3); Creatinine Clr Calc Pharmacy 68.1 ml/min; Potassium 3.3 mmol/L (3.5-5.1); Total Protein 5.5 gm/dl (6.0-8.3)
--- NOTE | 2024-03-27 09:38 | Hospitalist Progress Note ---
Date of Service March 27, 2024 Assessment & Plan (1) Catheter-associated urinary tract infection: Plan: I was unaware of the history of his catheter insertion, I realized that the catheter was put in prior to this ED visit and so this then can be catheter ind uced. With the presence of gram-negative bacteria and questionable Pseudomonas, continue with cefepime, await finalization of blood and culture results. (2) Gram-negative bacteremia: Plan: Continue with cefepime, await sensitivity results. Probably originating from urinary source. Patient is hemodynamically stable, afebrile overnight with resolved leukocytosis, his WBC count was 17,000 on admission which has now improved to 9. (3) Chronic gout: Plan: Clinically doing well, continue with home dose of allopurinol 300 mg daily (4) Hyperlipidemia: Plan: Continue with Lipitor 10 mg daily. (5) Dementia: Plan: This is probably due to underlying traumatic brain injury that he had at this age of 58, I do not see any other contributing factor. Continue with home dose of Namenda. (6) BPH (benign prostatic hyperplasia): Plan: Newman catheter was placed prior to this hospitalization as outpatient, continue with Flomax. Plan Continue empirical cefepime, await finalization of blood culture sensitivity and also urine culture results. Keep Newman in place because of retention. Admission and Anticipated Discharge Date Admission Date: March 26, 2024 Subjective Patient is a 58-year-old gentleman with history of dementia, traumatic brain injury, coronary artery disease, pulmonary nodule, CKD stage III and gout who was brought to the hospital because of reportedly confusion. Prior to this patient had been seen by urology and had Newman catheter placed I recommended to this remain in place. Patient was found to have evidence of urinary tract infection on the urinalysis, empirically was placed on ceftriaxone, the result of blood culture showed presence of Pseudomonas, treatment was then changed to cefepime Patient was seen and examined today, he seems to have somewhat improved since yesterday. He is more awake. Physical Exam Physical Exam: VITALS: Reviewed. WEIGHT/BMI reviewed. GEN: Healthy appearing, well-developed, NAD. I feel that his mental status is now back to baseline. NECK: Supple, with no masses. CV: RRR, no m/r/g. LUNGS: CTAB, no w/r/c. ABD: Soft, NT/ND, NBS, no masses or organomegaly. : Newman catheter is in place. SKIN: Warm, well perfused. No skin rashes or abnormal lesions. EXT: No clubbing, cyanosis, or edema. NEURO: No focal deficit Results & Data Results & Data Vital Signs (Past 12 Hours) Vital Signs Temp Pulse Pulse Resp BP BP Pulse Ox 03/27/24 07:55 36.7 C 94 H 18 118/78 98 03/27/24 07:28 75 03/27/24 03:03 36.6 C 86 18 112/71 98 03/26/24 22:36 36.8 C 82 18 98/64 L 97 03/26/24 22:15 77 O2 Del Method 03/27/24 07:55 Room Air 03/27/24 07:28 03/27/24 03:03 Room Air 03/26/24 22:36 Room Air 03/26/24 22:15 Laboratory Results Laboratory Results - last 24 hr 03/26/24 03/27/24 01:01 06:50 WBC 9.96 RBC 3.49 L Hgb 10.2 L Hct 31.5 L MCV 90.3 MCH 29.2 MCHC 32.4 RDW Std Deviation 50.4 H RDW Coeff of Rogerio 15.4 H Plt Count 154 MPV 9.8 Immature Gran % (Auto) 0.7 Neut % (Auto) 85.7 Lymph % (Auto) 7.1 [place] % (Auto) 5.9 Eos % (Auto) 0.3 Baso % (Auto) 0.3 Neut # (Auto) 8.53 H Lymph # (Auto) 0.71 L [place] # (Auto) 0.59 Eos # (Auto) 0.03 Baso # (Auto) 0.03 Immature Gran # (Auto) 0.07 Sodium 142 Potassium 3.3 L Chloride 111 H Carbon Dioxide 25 Anion Gap 6 BUN 16 Creatinine 1.29 Est Cr Clr Drug Dosing 68.1 eGFR 63.48 BUN/Creatinine Ratio 12.4 Glucose 106 H Calcium 8.5 L Total Bilirubin 0.8 D Direct Bilirubin 0.2 AST 12 L ALT 9 Alkaline Phosphatase 97 Total Protein 5.5 L Albumin 3.1 L P. aeruginosa (PCR) DETECTED A blaIMP Car res Gene PCR Not Detected KPC-Carbap Res Gene PCR Not Detected blaNDM Car Res Gene PCR Not Detected blaVIM Car Res Gene PCR Not Detected CTX-M Gene Resistance (PCR) Not Detected Bld Cult ID Panel PCR See PCR Comment Medications Administered Current Inpatient Medications Acetaminophen (Acetaminophen 325 Mg Tab) 650 mg PO Q4H PRN PRN Reason: Pain or Fever Stop: 04/25/24 04:57 Allopurinol (Allopurinol 300 Mg Tab) 300 mg PO DAILY [facility] Stop: 04/25/24 08:59 Last Admin: 03/26/24 08:59 Dose: 300 mg Atorvastatin Calcium (Atorvastatin 10 Mg Tab) 10 mg PO DAILY [facility] Stop: 04/25/24 08:59 Last Admin: 03/26/24 08:59 Dose: 10 mg Cyclobenzaprine HCl (Cyclobenzaprine Hcl 10 Mg Tab) 10 mg PO BID [facility] Stop: 04/25/24 08:59 Last Admin: 03/26/24 22:06 Dose: 10 mg Docusate Sodium (Docusate Sodium 100 Mg Cap) 200 mg PO BID [facility] Stop: 04/25/24 08:59 Last Admin: 03/26/24 22:09 Dose: 200 mg Famotidine (Famotidine 40 Mg Tablet) 40 mg PO HS [facility] Stop: 04/25/24 20:59 Last Admin: 03/26/24 22:05 Dose: 40 mg Cefepime HCl (Maxipime 2000mg) 2,000 mg in 20 mls @ 5 mls/min IV Q8H [facility]; Protocol Stop: 04/05/24 22:59 Last Admin: 03/27/24 06:37 Dose: 5 mls/min Loratadine (Loratadine 10 Mg Tab) 10 mg PO DAILY [facility] Stop: 04/25/24 08:59 Last Admin: 03/26/24 08:59 Dose: 10 mg Memantine (Memantine Hcl 10 Mg Tab) 10 mg PO BID [facility] Stop: 04/25/24 08:59 Last Admin: 03/26/24 22:06 Dose: 10 mg Mirtazapine (Mirtazapine Tab 15 Mg Tab) 30 mg PO HS [facility] Stop: 04/25/24 20:59 Last Admin: 03/26/24 22:06 Dose: 30 mg Nitroglycerin (Nitroglycerin Sl 0.4 Mg/Tab Tab) 0.4 mg SL Q5M PRN PRN Reason: Chest Pain Stop: 04/25/24 04:57 Olanzapine (Olanzapine 5 Mg Tablet) 5 mg PO HS [facility] Stop: 04/25/24 20:59 Last Admin: 03/26/24 22:07 Dose: 5 mg Pantoprazole Sodium (Pantoprazole 40 Mg Tab) 40 mg PO BID [facility] Stop: 04/25/24 08:59 Last Admin: 03/26/24 22:07 Dose: 40 mg Polyethylene Glycol (Polyethylene (Miralax) 17 Gm Pack) 17 gm PO DAILY PRN PRN Reason: Constipation Stop: 04/25/24 04:57 Tamsulosin HCl (Tamsulosin Hcl 0.4 Mg Cap) 0.4 mg PO DAILY [facility] Stop: 04/25/24 08:59 Last Admin: 03/26/24 08:59 Dose: 0.4 mg (3) Chronic gout Gout site: unspecified site Gout etiology: idiopathic Presence of tophus: without tophus Qualified Code(s): M1A.00X0 - Idiopathic chronic gout, unspecified site, without tophus (tophi) (4) Hyperlipidemia Hyperlipidemia type: mixed hyperlipidemia Qualified Code(s): E78.2 - Mixed hyperlipidemia (5) Dementia Dementia type: associated with other underlying disease Dementia severity: moderate Dementia behavioral or psychological symptom: without behavioral, psychotic, or mood disturbance or anxiety Qualified Code(s): F02.B0 - Dementia in other diseases classified elsewhere, moderate, without behavioral disturbance, psychotic disturbance, mood disturbance, and anxiety (6) BPH (benign prostatic hyperplasia) Lower urinary tract symptom presence: symptoms present Lower urinary tract symptom detail: urinary retention Qualified Code(s): N40.1 - Benign prostatic hyperplasia with lower urinary tract symptoms; R33.8 - Other retention of urine
[2024-03-28 07:37] VITALS: BP 112/73; RESP 15; TEMP 97.7; O2SAT 99
--- NOTE | 2024-03-28 11:10 | Discharge Summary ---
Discharge Summary Date of Service March 28, 2024 Principal Dx & Hospital Course #1 = Principal Diagnosis (1) Catheter-associated urinary tract infection: (2) Gram-negative bacteremia: (3) Chronic gout: (4) Hyperlipidemia: (5) Dementia: (6) BPH (benign prostatic hyperplasia): Notes For Next Care Provider Medication Changes From Visit Levaquin 750 mg daily for 7 days During the course of antibiotic treatment I recommended his olanzapine be reduced to half a pill, equivalent to 2.5 mg at night Admission HPI Per Admitting Provider Patient is a 58-year-old gentleman with history of dementia, traumatic brain injury, coronary artery disease, pulmonary nodule, CKD stage III and gout who was brought to the hospital because of reportedly confusion. Prior to this patient had been seen by urology and had Newman catheter placed I recommended to this remain in place. Patient was found to have evidence of urinary tract i nfection on the urinalysis, empirically was placed on ceftriaxone, the result of blood culture showed presence of Pseudomonas, treatment was then changed to cefepime, the result of culture showed newman sensitivity of the Pseudomonas, patient continued to do well for the past 48 hours with no fever. Decision was made to transition to oral treatment, continue with Levaquin 750 mg daily for 7 days total, I recommend patient's olanzapine to be reduced to 2.5 mg during the course of treatment, after completion, he can resume the previous 5 mg dose. Updated Medication List Medication Instructions Recorded Confirmed Type allopurinol 300 mg tablet 300 mg PO DAILY 03/26/24 03/26/24 History atorvastatin 10 mg tablet 10 mg PO DAILY 03/26/24 03/26/24 History cyclobenzaprine 10 mg tablet 10 mg PO BID 03/26/24 03/26/24 History docusate sodium 100 mg capsule 200 mg PO BID 03/26/24 03/26/24 History (Colace) famotidine 40 mg tablet 40 mg PO HS 03/26/24 03/26/24 History loratadine 10 mg tablet 10 mg PO DAILY 03/26/24 03/26/24 History lorazepam 1 mg tablet (Ativan) 1 mg PO TID PRN Anxiety 03/26/24 03/26/24 History melatonin 10 mg tablet 10 mg PO HS PRN Insomnia 03/26/24 03/26/24 History memantine 10 mg tablet 10 mg PO BID 03/26/24 03/26/24 History mirtazapine 30 mg tablet 30 mg PO HS 03/26/24 03/26/24 History morphine 15 mg tablet,extended 15 mg PO BID 03/26/24 03/26/24 History release olanzapine 5 mg tablet 5 mg PO HS 03/26/24 03/26/24 History pantoprazole 40 mg tablet,delayed 40 mg PO BID 03/26/24 03/26/24 History release promethazine 12.5 mg tablet 12.5 mg PO TID PRN Nausea And 03/26/24 03/26/24 History Vomiting tamsulosin 0.4 mg capsule 0.4 mg PO DAILY 03/26/24 03/26/24 History levofloxacin 750 mg tablet 750 mg PO DAILY 7 days #7 tabs 03/28/24 Rx Hospital Stay Data Consultations 03/26/24 02:22 ED Decision to Admit Stat Pending Results Patient Have Any Pending Studies at Discharge: No Discharge Instructions Given to Patient (Per Discharging Provider) I recommended during the course of antibiotic treatment patient's olanzapine be reduced to half a pill equal to 2.5 mg at night. Thereafter upon completion of the course of treatment, he can resume 5 mg dose at night. Total Time Total Time Spent Total Time Spent (In Minutes): More than 35 minutes
[2024-03-28 11:11] VITALS: PULSE 74
== END 2024-03-28 12:08 | disposition home or self-care (01) | DRG 698 ==
LOC: ED 23:34 → EDINP 03-26 04:40 → 2N 03-26 04:58

== ENCOUNTER 2024-05-11 20:05 | Inpatient (IN) ==
[2024-05-11 21:24] LABS: Appearance Urine Cloudy (Clear); Bacteria Urine Automated 4+ (None Seen); Bilirubin Urine Negative (Negative); Blood Urine Trace (Negative); Color Urine Dark Yellow; Epithelial Cell Urine Auto 0-2 /hpf (0-2); Glucose Urine UA Negative (Negative); Ketones Urine Negative (Negative); Leukocyte Esterase Urine 2+ (Negative); Nitrite Urine Positive (Negative); Protein Urine Trace (Negative); Specific Gravity Urine 1.021 (1.000-1.030); Urobilinogen Urine Positive (Negative); WBC Urine Automated >50 /hpf (0-5); pH Urine 6.5 (4.5-7.5)
[2024-05-11 21:26] LABS: Calcium Oxalate Crystals Urine Present (None Prsent)
--- NOTE | 2024-05-11 21:33 | Emergency Department Note ---
Impression & Plan Confusion, Acute UTI, Influenza A ED Provider Note Provider: Kulwinder Farley MD CHIEF COMPLAINT: Change in mental status HISTORY OF PRESENT ILLNESS: Patient is a 59-year-old gentleman history of dementia, chronic Newman with history of UTI, CKD presenting here today from home reportedly more altered than normal. Patient denies pain but not a good historian. Family/ report at baseline report he seemed more confused and had foul-smelling urine today. No fevers reported or trauma. Fever of 100. Had 2 episodes of chills while out today on errands at a restaurant. Did have an appetite this evening. Has been hydrating. No falls or trauma. Patient himself denies chest pain shortness of breath or abdominal pain. No back pain reported. Newman catheter last changed on April 20 and has urology follow-up in approximately 10 days. PAST MEDICAL HISTORY: As noted above MEDICATIONS: Reviewed home medications SOCIAL HISTORY: Lives at home with PHYSICAL EXAM: GENERAL: alert and oriented in no acute distress on stretcher fatigued in appearance with at bedside provides additional history Head: normocephalic and atraumatic EYES: No injection, discharge or icterus. EOMI. NECK: Trachea midline. Supple. ENT: Mucous membranes pink and moist. LUNGS: Airway patent. No retractions without tachypnea HEART: Regular rate and rhythm. No chest wall tenderness ABDOMEN: Soft and non-tender, without guarding or rebound. No abdominal masses appreciable, chronic indwelling Newman noted SKIN: Acyanotic, warm, dry, without rashes EXTREMITIES: Without swelling, tenderness or deformity NEUROLOGICAL: No focal deficits. No aphasia. No facial droop or slurred speech. EK bpm normal sinus rhythm. No PVC or PAC. No acute ST segment elevation with an incomplete right bundle branch block. Slight slurring of the lateral T waves. QTc 481. CONTINUOUS CARDIAC MONITORING: was ordered and showed a heart rate of 60s to 80s bpm in normal sinus rhythm Patient's laboratory studies and imaging reviewed. Differential includes Infection, dehydration, metabolic abnormality, hypo/hyperglycemia, electrolyte disturbance, anemia, hypoxia, cardiac sources, intracerebral event, toxicologic, neurologic, as well as other pathologies. IMPRESSION/MEDICAL DECISION MAKING: Patient with baseline dementia however reportedly more altered. History of chronic indwelling Newman and urine sample appears contaminated. Will replace. Blood work obtained. Reviewed prior microbiology. Will cover broadly with cefepime given Pseudomonas history as well as daptomycin. Does not appear septic at this time. No signs of acute renal dysfunction. No significant back pain or abdominal pain and doubt kidney stone. Incidentally does test also test positive for influenza A. Both of these infections could be contributing some increased confusion and fever and chills reported at home. Not hypoxic and do not believe he needs Tamiflu at this point. No again focal deficits I doubt meningitis or CVA at this time. Discussed with . Given his microbiology history, reports some confusion, and both a positive urine and flu study, discussed with him further observation here and continued IV antibiotics. Discussed with the hospitalist here for further care. DIAGNOSIS: Acute UTI, influenza, confusion DISPOSITION: Hospitalist will evaluate. Patient and updated at bedside Past Med/Surg History Problem List (Updated 05/11/24 @ 22:46 by Kulwinder Farley M.D.) Influenza A (Acute) Acute UTI (Acute) Gram-negative bacteremia BPH (benign prostatic hyperplasia) Dementia Hyperlipidemia Chronic gout Catheter-associated urinary tract infection (Acute) Hypomagnesemia (Acute) Hypokalemia (Acute) Acute UTI (Acute) Sepsis (Acute) Discussion about advance care planning held with family member Palliative care by specialist Dementia with behavioral disturbance Weakness generalized CKD stage 3b, GFR 30-44 ml/min BPH (benign prostatic hyperplasia) Vascular dementia Urinary retention Chest pain (Acute) Encephalopathy Postlaminectomy syndrome of lumbosacral region Hyponatremia (Acute) Dementia (Acute) QT prolongation Delirium due to another medical condition, acute, hyperactive Agitation Alcohol abuse (Acute) AMS (altered mental status) (Acute) Major neurocognitive disorder as late effect of traumatic brain injury with behavioral disturbance Frequent falls (Acute) Altered mental status (Acute) Confusion Right ureteral stone Encounter for pre-operative examination Anemia (Acute) IRON DEFICIENT ANEMIA AND REC'D IV IRON 10/06. Baseline HGB since 2017 ~9 HLD (hyperlipidemia) Gout Back pain FROM ACCIDENT AND 7 DIFFERENT FX AND FUSION GERD (gastroesophageal reflux disease) (Acute) Anxiety History of renal stone (Acute) S/P cysto/litho/stent 10/07 History of diverticulitis of colon remote Medical History (Updated 05/11/24 @ 22:46 by Kulwinder Farley M.D.) History of fracture of right ankle Hx of fracture of skull 7 FX AND HAS SOME PROBLEMS WITH MEMORY Gastric ulcer Hydronephrosis B/L per [facility] 10/12/18 Surgical History S/P ureteral stent placement History of cystoscopy W/ LITHO/BASKET STONE EXTRACTION - 10/07/18 [facility]. LMA #5. History of surgery on left wrist History of arthroscopy of right shoulder Hx of right knee surgery S/P insertion of intrathecal pump FOLLOW WITH DR LAKIA PACKER FROM [place] History of back surgery UPPER BACK FUSION, 7 DIFFERENT FRACTURES AND MULTIPLE SURGERIES AND IS FUSED multiple revisions H/O inguinal hernia repair H/O lithotripsy S/P exploratory laparotomy (Unknown) 2010 RUPTURED DIVERTICULI S/P appendectomy (Unknown) S/P cholecystectomy (Unknown) S/P gastric bypass mike en y (2010) Family History Mother DM type 2 (diabetes mellitus, type 2) Father DM type 2 (diabetes mellitus, type 2) Social History Smoking Status: Never smoker Tobacco Type: Smokeless Tobacco (Dip or Chew) Second Hand Exposure: No; Do You Dip or Chew Tobacco: Yes; Hx Alcohol Use: No Hx Substance Use: No Preferred Language: Nepali Communication Ability: Effective Communication Ability Comment: Unable to write per spouse & reading difficulty Visual Impairment: No Limitations Security Services Specialist Required: No Beliefs That Will Affect Care: None Current Living Situation: Spouse Current Living Situation Comment: lives with Feels Safe at Home: Yes Assistive Devices: Wheelchair Allergies Allergies Allergy/AdvReac Type Severity Reaction Status Date / Time Penicillins Allergy Severe SEE COMMENT Verified 03/09/24 03:24 erythromycin base Allergy Intermediate Itching Verified 03/09/24 03:24 indomethacin Allergy Intermediate HIVES Verified 03/09/24 03:24 neomycin Allergy Intermediate BLISTERS Verified 03/09/24 03:24 vancomycin Allergy Intermediate ITCHING--ALL Verified 03/09/24 03:24 MYCIN DRUGS fentanyl AdvReac Severe "DID NOT Verified 03/09/24 03:24 TOLERATE"-patch- "went nuts" ibuprofen AdvReac Severe Ulcer Verified 03/09/24 03:24 history ketorolac AdvReac Mild NAUSEA Verified 03/09/24 03:24 aspirin AdvReac Unknown "BLEEDING" Verified 03/09/24 03:24 S/P GASTRIC BYPASS Home Meds Home Medications Medication Instructions Recorded Confirmed allopurinol 300 mg tablet 300 mg PO DAILY 03/26/24 04/22/24 atorvastatin 10 mg tablet 10 mg PO DAILY 03/26/24 04/22/24 cyclobenzaprine 10 mg tablet 10 mg PO BID 03/26/24 04/22/24 docusate sodium 100 mg capsule 200 mg PO BID 03/26/24 04/22/24 (Colace) famotidine 40 mg tablet 40 mg PO HS 03/26/24 04/22/24 loratadine 10 mg tablet 10 mg PO DAILY 03/26/24 04/22/24 lorazepam 1 mg tablet (Ativan) 1 mg PO TID PRN Anxiety 03/26/24 04/22/24 melatonin 10 mg tablet 10 mg PO HS PRN Insomnia 03/26/24 04/22/24 memantine 10 mg tablet 10 mg PO BID 03/26/24 04/22/24 mirtazapine 30 mg tablet 30 mg PO HS 03/26/24 04/22/24 morphine 15 mg tablet,extended 15 mg PO BID 03/26/24 04/22/24 release olanzapine 5 mg tablet 5 mg PO HS 03/26/24 04/22/24 pantoprazole 40 mg tablet,delayed 40 mg PO BID 03/26/24 04/22/24 release promethazine 12.5 mg tablet 12.5 mg PO TID PRN Nausea And 03/26/24 04/22/24 Vomiting tamsulosin 0.4 mg capsule 0.4 mg PO DAILY 03/26/24 04/22/24 Previous Rx's Medication Instructions Recorded lidocaine 5 % topical patch 1 patch topical DAILY PRN pain #15 04/07/24 ea Results & Data (ED) Vital Signs Vital Signs - 24 hr 05/11/24 20:13 05/11/24 20:16 05/11/24 20:16 Temperature 36.8 C Temperature Source Oral Pulse Rate 84 84 Pulse Rate [Apical] Pulse Rhythm Pulse Rhythm [Apical] Pulse Strength [Apical] Respiratory Rate 20 Respiratory Effort / Characteristics Non-Labored Spontaneous Respiratory Depth Normal Respiratory Pattern Regular Blood Pressure 112/81 Blood Pressure [Right Arm] Blood Pressure Mean 91 Blood Pressure Mean [Right Arm] Blood Pressure Position [Right Arm] Pulse Oximetry 98 98 Oxygen Delivery Method Room Air Room Air Sepsis Recent Fever Within 48 Hours Yes Sepsis New/Unexplained Change in Mental Status Yes Sepsis Action Taken by Nursing No Action Required 05/11/24 20:16 05/11/24 21:22 05/11/24 22:14 Temperature Temperature Source Pulse Rate 86 Pulse Rate [Apical] 84 63 Pulse Rhythm Regular Pulse Rhythm [Apical] Regular Regular Pulse Strength [Apical] Normal Normal Respiratory Rate 20 18 20 Respiratory Effort / Characteristics Non-Labored Spontaneous Non-Labored Spontaneous Respiratory Depth Normal Normal Respiratory Pattern Regular Regular Blood Pressure Blood Pressure [Right Arm] 112/81 107/78 Blood Pressure Mean Blood Pressure Mean [Right Arm] 91 87 Blood Pressure Position [Right Arm] Lying Lying Pulse Oximetry 98 94 94 Oxygen Delivery Method Room Air Room Air Room Air Sepsis Recent Fever Within 48 Hours Sepsis New/Unexplained Change in Mental Status Sepsis Action Taken by Nursing 05/12/24 00:13 Temperature Temperature Source Pulse Rate 66 Pulse Rate [Apical] Pulse Rhythm Pulse Rhythm [Apical] Pulse Strength [Apical] Respiratory Rate Respiratory Effort / Characteristics Respiratory Depth Respiratory Pattern Blood Pressure Blood Pressure [Right Arm] Blood Pressure Mean Blood Pressure Mean [Right Arm] Blood Pressure Position [Right Arm] Pulse Oximetry Oxygen Delivery Method Sepsis Recent Fever Within 48 Hours Sepsis New/Unexplained Change in Mental Status Sepsis Action Taken by Nursing Laboratory Data 05/11/24 21:13 05/11/24 21:13 Lab Results 05/11/24 05/11/24 Range/Units 20:55 21:13 WBC 6.03 (4.8-10.8) K/ul RBC 3.91 L (4.70-6.10) M/uL Hgb 11.2 L (14.0-18.0) g/dl Hct 34.2 L (42.0-52.0) % MCV 87.5 (80.0-100.0) fL MCH 28.6 (25.0-34.0) pg MCHC 32.7 (32.0-36.0) g/dL RDW Std Deviation 48.8 H (36.4-46.3) fL RDW Coeff of Rogerio 15.1 H (11.5-14.5) % Plt Count 173 (130-400) K/uL MPV 10.3 (9.4-12.4) fL Immature Gran % (Auto) 0.3 % Neut % (Auto) 75.3 % Lymph % (Auto) 13.6 % [place] % (Auto) 10.6 % Eos % (Auto) 0.0 % Baso % (Auto) 0.2 % Neut # (Auto) 4.54 (1.40-6.50) K/uL Lymph # (Auto) 0.82 L (1.20-3.40) K/uL [place] # (Auto) 0.64 H (0.11-0.59) K/uL Eos # (Auto) 0.00 (0.00-0.50) K/uL Baso # (Auto) 0.01 (0.00-0.20) K/uL Immature Gran # (Auto) 0.02 (0.01-0.20) K/uL Sodium 137 (136-145) mmol/L Potassium 3.9 (3.5-5.1) mmol/L Chloride 100 (98-107) mmol/L Carbon Dioxide 32 (21-32) mmol/L Anion Gap 5 (3-11) BUN 17 (6-23) mg/dl Creatinine 1.31 (0.6-1.4) mg/dl Est Cr Clr Drug Dosing 63.1 ml/min eGFR 61.93 BUN/Creatinine Ratio 13.0 (10-20) Glucose 106 H (70-99(Fasting)) mg/dl Calcium 8.9 (8.6-10.3) mg/dl Total Bilirubin 1.0 (0.2-1.0) mg/dl AST 19 (13-39) U/L ALT 11 (7-52) U/L Alkaline Phosphatase 115 H (34-104) U/L Troponin I High Sens 8.4 (0-20) pg/ml Total Protein 6.5 (6.0-8.3) gm/dl Albumin 3.9 (3.4-5.0) gm/dl Globulin 2.6 (2.5-4.0) gm/dl Albumin/Globulin Ratio 1.5 (0.9-2) TSH 1.404 (0.300-4.500) uIu/ml Urine Color Dark Yellow Urine Appearance Cloudy A (Clear) Urine pH 6.5 (4.5-7.5) Ur Specific [place] 1.021 (1.000-1.030) Urine Protein Trace H (Negative) Urine Glucose (UA) Negative (Negative) Urine Ketones Negative (Negative) Urine Blood Trace H (Negative) Urine Nitrite Positive A (Negative) Urine Bilirubin Negative (Negative) Urine Urobilinogen Positive H (Negative) Ur Leukocyte Esterase 2+ H (Negative) Urine WBC (Auto) >50 H (0-5) /hpf Urine RBC (Auto) 11-20 H (0-2) /hpf U Hyaline Cast (Auto) 3-5 H (0-2) /lpf U Epithel Cells (Auto) 0-2 (0-2) /hpf Urine Bacteria (Auto) 4+ H (None Seen) Calcium Oxalate Crystal Present A (None Prsent) SARS-CoV-2 (PCR) NEGATIVE (Negative) Influenza Type A (PCR) Positive A (Neg) Influenza Type B (PCR) Negative (Neg) RSV (RT-PCR) Negative (Neg) Administered Medications Daptomycin 450 mg/ Syringe 9 mls @ 4.5 mls/min IV Q24H CRAL; Protocol Stop: 05/13/24 22:14 Last Admin: 05/11/24 23:05 Dose: 4.5 mls/min Documented By: KMMalcolm Discontinued Medications Cefepime HCl (Maxipime 2000mg) 2,000 mg in 20 mls @ 5 mls/min IV NOW STA; Protocol Stop: 05/11/24 22:11 Last Admin: 05/11/24 22:19 Dose: 5 mls/min Documented By: [facility] Imaging Data Radiologist's Impression: Chest X-Ray 05/11/24 20:57 Exam(s): XR CXR 1 VIEW EXAM: XR Chest, 1 View CLINICAL HISTORY: Reason for exam: , ams. TECHNIQUE: Frontal view of the chest. COMPARISON: Prior chest x-ray from April 07, 2024. FINDINGS: Lungs: Mild to moderate peribronchial thickening of the central lower lobe bronchi with increased interstitial opacities in the lower lobes.. No consolidation. Pleural space: Unremarkable. No pneumothorax. Heart: Unremarkable. No cardiomegaly. Mediastinum: Unremarkable. Normal mediastinal contour. Bones/joints: Mild dextroscoliosis. Status post fusion of the proximal lumbar spine. No acute fracture. IMPRESSION: Bronchitis, which may be of infectious or inflammatory etiologies. No consolidation or pleural effusion. Electronically signed by: Jennifer Paris MD 05/11/24 22:09 PM Discharge Plan Visit Data Chief Complaint: Altered Mental Status Stated Complaint: POSSIBLE UTI, MORE ALTERED THAN NORMAL ED Provider: Kulwinder Farley Discharge Problem: Confusion, Acute UTI, Influenza A Patient Disposition: Being Evaluated by Hospitalist Forms Stand Alone Forms: My [facility] Prescriptions Prescriptions: No Action lidocaine 5 % adhesive patch,medicated 1 patch TOP DAILY PRN (Reason: pain) Qty: 15 0RF Rx Instructions: leave on most painful area for 12 hrs cyclobenzaprine 10 mg tablet 10 mg PO BID atorvastatin 10 mg tablet 10 mg PO DAILY promethazine 12.5 mg tablet 12.5 mg PO TID PRN (Reason: Nausea And Vomiting) famotidine 40 mg tablet 40 mg PO HS olanzapine 5 mg tablet 5 mg PO HS tamsulosin 0.4 mg capsule 0.4 mg PO DAILY pantoprazole 40 mg tablet,delayed release (DR/EC) 40 mg PO BID mirtazapine 30 mg tablet 30 mg PO HS morphine 15 mg tablet extended release 15 mg PO BID allopurinol 300 mg tablet 300 mg PO DAILY memantine 10 mg tablet 10 mg PO BID docusate sodium [Colace] 100 mg Capsule 200 mg PO BID lorazepam [Ativan] 1 mg Tablet 1 mg PO TID PRN (Reason: Anxiety) melatonin 10 mg Tablet 10 mg PO HS PRN (Reason: Insomnia) loratadine 10 mg Tablet 10 mg PO DAILY Referrals Referrals: Charles Mayer DO [Primary Care Provider] -
[2024-05-11 21:47] LABS: Albumin Globulin Ratio 1.5 (0.9-2); Albumin Level 3.9 gm/dl (3.4-5.0); Calcium 8.9 mg/dl (8.6-10.3); Creatinine Clr Calc Pharmacy 63.1 ml/min; Globulin 2.6 gm/dl (2.5-4.0); Potassium 3.9 mmol/L (3.5-5.1); Total Protein 6.5 gm/dl (6.0-8.3)
[2024-05-11 21:48] LABS: Basophils # (auto) 0.01 K/uL (0.00-0.20); Basophils % (auto) 0.2 %; Hematocrit (blood only) 34.2 % (42.0-52.0); Hemoglobin 11.2 g/dl (14.0-18.0); Immature Granulocytes # (auto) 0.02 K/uL (0.01-0.20); Immature Granulocytes % (auto) 0.3 %; Lymphocytes # (auto) 0.82 K/uL (1.20-3.40); Lymphocytes % (auto) 13.6 %; Mean Corpuscular Hemoglobin 28.6 pg (25.0-34.0); Mean Corpuscular Hgb Conc 32.7 g/dL (32.0-36.0); Mean Corpuscular Volume 87.5 fL (80.0-100.0); Mean Platelet Volume 10.3 fL (9.4-12.4); Monocytes # (auto) 0.64 K/uL (0.11-0.59); Monocytes % (auto) 10.6 %; Neutrophils # (auto) 4.54 K/uL (1.40-6.50); Neutrophils % (auto) 75.3 %; Platelet Count 173 K/uL (130-400); RDW Coefficient of Variation 15.1 % (11.5-14.5); RDW Standard Deviation 48.8 fL (36.4-46.3); Red Blood Count 3.91 M/uL (4.70-6.10); White Blood Count 6.03 K/ul (4.8-10.8)
[2024-05-11 21:53] LABS: Troponin I High Sensitivity 8.4 pg/ml (0-20)
[2024-05-11 22:02] LABS: Thyroid Stimulating Hormone 1.404 uIu/ml (0.300-4.500)
--- NOTE | 2024-05-11 22:10 | XRay Report ---
Exam(s): XR CXR 1 VIEW EXAM: XR Chest, 1 View CLINICAL HISTORY: Reason for exam: , ams. TECHNIQUE: Frontal view of the chest. COMPARISON: Prior chest x-ray from April 07, 2024. FINDINGS: Lungs: Mild to moderate peribronchial thickening of the central lower lobe bronchi with increased interstitial opacities in the lower lobes.. No consolidation. Pleural space: Unremarkable. No pneumothorax. Heart: Unremarkable. No cardiomegaly. Mediastinum: Unremarkable. Normal mediastinal contour. Bones/joints: Mild dextroscoliosis. Status post fusion of the proximal lumbar spine. No acute fracture. IMPRESSION: Bronchitis, which may be of infectious or inflammatory etiologies. No consolidation or pleural effusion. Electronically signed by: Jennifer Paris MD 05/11/24 22:09 PM
[2024-05-11 22:11] LABS: Influenza A virus by PCR Positive (Neg); Influenza B virus by PCR Negative (Neg); RSV by PCR Negative (Neg); SARS CoV2 RNA(COVID-19) Ceph NEGATIVE (Negative)
[2024-05-11] MEDS: CEFEPIME 2000MG 2,000 MG/20 ML SYR IV STA (22:19)
[2024-05-11] MEDS: DAPTOmycin 450 MG in SYRINGE 0 ML IV SCH (23:05)
[2024-05-12] MEDS: ONDANSETRON INJ 2 MG/ML 2 ML VIAL IV STA (01:27)
--- NOTE | 2024-05-12 02:44 | History & Physical Report ---
Date of Service May 12, 2024 Assessment & Plan (1) AMS (altered mental status): Plan: 59-year-old male with past medical history significant for gout, dementia, history of traumatic brain injury, history of CAD, history of right upper lobe pulmonary nodule, GERD, status post gastric bypass, history of diverticulitis, CKD stage III, iron deficiency anemia, spinal fusion surgery, history of skull fracture, history of kidney stones who lives at home with his was brought in because of confusion and found to have UTI and flu. As per since last Friday patient getting confused and it was getting progressively worsening. He was seeing things and talking to people. Today he had temperature spike. And urine was also foul-smelling and was brought to the ER. In the ER he was found to UTI and also flu. As per no cough. His appetite is down. No nausea or vomiting. Patient had diarrhea about a week ago. But last 2 days he did not move his bowels per . Patient is alert and awake and oriented to name only. Patient denies any headache. Denies chest pain. Denies shortness of breath. Denies cough. Denies abdominal pain. Hemodynamics are okay. Altered mental status Acute UTI Influenza Monitor Acute UTI ER started on Dapto and cefepime which we will be continued Gentle fluids Follow cultures Influenza Droplet precautions Tamiflu Supportive care Hx of Urinary retention s/p Newman On Flomax Follow-up with urology History of dementia History of traumatic brain injury On memantine Monitor for delirium Hyperlipidemia On statin, hold while on Dapto GERD History of GI bleed On famotidine and Protonix History of gout On allopurinol Chronic anemia History of gastric bypass On vitamin B12 shots Hemoglobin 11.2 History of nonobstructive CAD On statin CKD stage III Present creatinine 1.3 Will follow labs Chronic pain Spinal fusion Currently on morphine ER 15 mg twice daily, will hold if patient gets drowsy DVT prophylaxis Lovenox Disposition Med/telemetry CODE STATUS DNR/DNI as per my discussion with History of Present Illness Chief Complaint: Altered mental status, UTI, flu Primary Care Provider: Charles Mayer DO 59-year-old male with past medical history significant for gout, dementia, history of traumatic brain injury, history of CAD, history of right upper lobe pulmonary nodule, GERD, status post gastric bypass, history of diverticulitis, CKD stage III, iron deficiency anemia, spinal fusion surgery, history of skull fracture, history of kidney stones who lives at home with his was brought in because of confusion and found to have UTI and flu. As per since last Friday patient getting confused and it was getting progressively worsening. He was seeing things and talking to people. Today he had temperature spike. And urine was also foul-smelling and was brought to the ER. In the ER he was found to UTI and also flu. As per no cough. His appetite is down. No nausea or vomiting. Patient had diarrhea about a week ago. But last 2 days he did not move his bowels per . Patient is alert and awake and oriented to name only. Patient denies any headache. Denies chest pain. Denies shortness of breath. Denies cough. Denies abdominal pain. Hemodynamics are okay. Past medical history. As mentioned above. Past surgical history. Amputation of left second finger. Colonoscopy. EGD. Exploratory laparotomy. ESWL. Laparoscopic gastric bypass Mike-en-Y. Diagnostic laparoscopy. Laparoscopic cholecystectomy. Appendectomy. Repair of inguinal hernia left side. Repair of knee ligament. Spinal fusion surgery. Upper GI endoscopy. Social history. . No smoking. Alcohol occasional. No drug use. Family history. Father had diabetes. Hypertension. Mother had diabetes. Hypertension. Allergies Allergy/AdvReac Type Severity Reaction Status Date / Time Penicillins Allergy Severe SEE COMMENT Verified 03/09/24 03:24 erythromycin base Allergy Intermediate Itching Verified 03/09/24 03:24 indomethacin Allergy Intermediate HIVES Verified 03/09/24 03:24 neomycin Allergy Intermediate BLISTERS Verified 03/09/24 03:24 vancomycin Allergy Intermediate ITCHING--ALL Verified 03/09/24 03:24 MYCIN DRUGS fentanyl AdvReac Severe "DID NOT Verified 03/09/24 03:24 TOLERATE"-patch- "went nuts" ibuprofen AdvReac Severe Ulcer Verified 03/09/24 03:24 history ketorolac AdvReac Mild NAUSEA Verified 03/09/24 03:24 aspirin AdvReac Unknown "BLEEDING" Verified 03/09/24 03:24 S/P GASTRIC BYPASS Home Medications Medication Instructions Recorded Confirmed Type allopurinol 300 mg tablet 300 mg PO DAILY 05/12/24 05/12/24 History atorvastatin 10 mg tablet 10 mg PO DAILY 05/12/24 05/12/24 History cyclobenzaprine 10 mg tablet 10 mg PO BID 05/12/24 05/12/24 History famotidine 40 mg tablet 40 mg PO HS 05/12/24 05/12/24 History loratadine 10 mg tablet 10 mg PO DAILY 05/12/24 05/12/24 History lorazepam 1 mg tablet 1 mg PO TID PRN Anxiety 05/12/24 05/12/24 History melatonin 10 mg tablet 10 mg PO HS PRN Insomnia 05/12/24 05/12/24 History memantine 10 mg tablet 10 mg PO BID 05/12/24 05/12/24 History mirtazapine 30 mg tablet 30 mg PO HS 05/12/24 05/12/24 History morphine 15 mg tablet,extended 15 mg PO BID 05/12/24 05/12/24 History release olanzapine 5 mg tablet 5 mg PO HS 05/12/24 05/12/24 History pantoprazole 40 mg tablet,delayed 40 mg PO BID 05/12/24 05/12/24 History release tamsulosin 0.4 mg capsule 0.4 mg PO DAILY 05/12/24 05/12/24 History trazodone 50 mg tablet 50 mg PO HS 05/12/24 05/12/24 History Past Med/Surg History Problem List (Updated 05/12/24 @ 03:35 by Gibran aPnda) AMS (altered mental status) Influenza A (Acute) Acute UTI (Acute) Gram-negative bacteremia BPH (benign prostatic hyperplasia) Dementia Hyperlipidemia Chronic gout Catheter-associated urinary tract infection (Acute) Hypomagnesemia (Acute) Hypokalemia (Acute) Acute UTI (Acute) Sepsis (Acute) Discussion about advance care planning held with family member Palliative care by specialist Dementia with behavioral disturbance Weakness generalized CKD stage 3b, GFR 30-44 ml/min BPH (benign prostatic hyperplasia) Vascular dementia Urinary retention Chest pain (Acute) Encephalopathy Postlaminectomy syndrome of lumbosacral region Hyponatremia (Acute) Dementia (Acute) QT prolongation Delirium due to another medical condition, acute, hyperactive Agitation Alcohol abuse (Acute) AMS (altered mental status) (Acute) Major neurocognitive disorder as late effect of traumatic brain injury with behavioral disturbance Frequent falls (Acute) Altered mental status (Acute) Confusion Right ureteral stone Encounter for pre-operative examination Anemia (Acute) IRON DEFICIENT ANEMIA AND REC'D IV IRON 10/06. Baseline HGB since 2017 ~9 HLD (hyperlipidemia) Gout Back pain FROM ACCIDENT AND 7 DIFFERENT FX AND FUSION GERD (gastroesophageal reflux disease) (Acute) Anxiety History of renal stone (Acute) S/P cysto/litho/stent 10/07 History of diverticulitis of colon remote Medical History (Updated 05/12/24 @ 03:35 by Gibran Panda) History of fracture of right ankle Hx of fracture of skull 7 FX AND HAS SOME PROBLEMS WITH MEMORY Gastric ulcer Hydronephrosis B/L per KUB 10/12/18 Surgical History S/P ureteral stent placement History of cystoscopy W/ LITHO/BASKET STONE EXTRACTION - 10/07/18 [facility]. LMA #5. History of surgery on left wrist History of arthroscopy of right shoulder Hx of right knee surgery S/P insertion of intrathecal pump FOLLOW WITH DR LAKIA PACKER FROM [place] History of back surgery UPPER BACK FUSION, 7 DIFFERENT FRACTURES AND MULTIPLE SURGERIES AND IS FUSED multiple revisions H/O inguinal hernia repair H/O lithotripsy S/P exploratory laparotomy (Unknown) 2010 RUPTURED DIVERTICULI S/P appendectomy (Unknown) S/P cholecystectomy (Unknown) S/P gastric bypass mike en y (2010) Family History Mother DM type 2 (diabetes mellitus, type 2) Father DM type 2 (diabetes mellitus, type 2) Social History Smoking Status: Never smoker Tobacco Type: Smokeless Tobacco (Dip or Chew) Second Hand Exposure: No; Do You Dip or Chew Tobacco: No; Tobacco Cessation Education Requested by Patient: No Hx Alcohol Use: No Hx Substance Use: No Preferred Language: Belarusian Communication Ability: Effective Communication Ability Comment: Unable to write per spouse & reading difficulty Visual Impairment: No Limitations Furnace Erector Required: No Beliefs That Will Affect Care: None Current Living Situation: Spouse Current Living Situation Comment: lives with Other Information That Helps Us Care for You: No Feels Safe at Home: Yes Safety Concerns: Feels Safe At This Time Assistive Devices: Wheelchair Review of Systems Review of Systems: All systems reviewed & are unremarkable except as noted in HPI & below Physical Exam Physical Exam: General- Not in acute distress Head- atraumatic Eyes- PERRL. ENT- oropharynx clear Neck- supple, no JVD. Lungs- clear to auscultation no wheezing or crackles Heart- regular rhythm; no murmur, no gallop. Abdomen- normal bowel sounds, soft, nontender, no distension Extremities- no pretibial edema, no erythema seen Neuro- alert, oriented x 1; PERRL, no facial palsy; no dysarthria; moves extremities Results & Data Results & Data Vital Signs (Past 12 Hours) Vital Signs Temp Pulse Pulse Resp BP BP Pulse Ox 05/12/24 01:00 82 15 116/67 93 05/12/24 00:13 66 05/12/24 00:03 62 14 98 05/12/24 00:00 111/76 05/11/24 23:30 117/75 05/11/24 23:15 67 15 98 05/11/24 23:00 68 15 100 05/11/24 22:14 63 20 107/78 94 05/11/24 21:22 86 18 94 05/11/24 20:16 84 20 112/81 98 05/11/24 20:16 98 05/11/24 20:16 36.8 C 84 20 112/81 98 05/11/24 20:13 84 O2 Del Method 05/12/24 01:00 Room Air 05/12/24 00:13 05/12/24 00:03 Room Air 05/12/24 00:00 05/11/24 23:30 05/11/24 23:15 05/11/24 23:00 05/11/24 22:14 Room Air 05/11/24 21:22 Room Air 05/11/24 20:16 Room Air 05/11/24 20:16 Room Air 05/11/24 20:16 Room Air 05/11/24 20:13 Diagnostic Findings Laboratory Results WBC 6.03 K/ul (4.8-10.8) 05/11/24 21:13 RBC 3.91 M/uL (4.70-6.10) L 05/11/24 21:13 Hgb 11.2 g/dl (14.0-18.0) L 05/11/24 21:13 Hct 34.2 % (42.0-52.0) L 05/11/24 21:13 MCV 87.5 fL (80.0-100.0) 05/11/24 21:13 MCH 28.6 pg (25.0-34.0) 05/11/24 21:13 MCHC 32.7 g/dL (32.0-36.0) 05/11/24 21:13 RDW Std Deviation 48.8 fL (36.4-46.3) H 05/11/24 21:13 RDW Coeff of Rogerio 15.1 % (11.5-14.5) H 05/11/24 21:13 Plt Count 173 K/uL (130-400) 05/11/24 21:13 MPV 10.3 fL (9.4-12.4) 05/11/24 21:13 Immature Gran % (Auto) 0.3 % 05/11/24 21: Neut % (Auto) 75.3 % 05/11/24 21: Lymph % (Auto) 13.6 % 05/11/24 21: Titus % (Auto) 10.6 % 05/11/24 21:13 Eos % (Auto) 0.0 % 05/11/24 21:13 Baso % (Auto) 0.2 % 05/11/24 21:13 Neut # (Auto) 4.54 K/uL (1.40-6.50) 05/11/24 21: Lymph # (Auto) 0.82 K/uL (1.20-3.40) L 05/11/24 21:13 Titus # (Auto) 0.64 K/uL (0.11-0.59) H 05/11/24 21:13 Eos # (Auto) 0.00 K/uL (0.00-0.50) 05/11/24 21:13 Baso # (Auto) 0.01 K/uL (0.00-0.20) 05/11/24 21: Immature Gran # (Auto) 0.02 K/uL (0.01-0.20) 05/11/24 21:13 Sodium 137 mmol/L (136-145) 05/11/24 21:13 Potassium 3.9 mmol/L (3.5-5.1) 05/11/24 21: Chloride 100 mmol/L (98-107) 05/11/24 21:13 Carbon Dioxide 32 mmol/L (21-32) 05/11/24 21:13 Anion Gap 5 (3-11) 05/11/24 21:13 BUN 17 mg/dl (6-23) 05/11/24 21:13 Creatinine 1.31 mg/dl (0.6-1.4) 05/11/24 21:13 Est Cr Clr Drug Dosing 63.1 ml/min 05/11/24 21:13 eGFR 61.93 05/11/24 21:13 BUN/Creatinine Ratio 13.0 (10-20) 05/11/24 21:13 Glucose 106 mg/dl (70-99(Fasting)) H 05/11/24 21:13 Calcium 8.9 mg/dl (8.6-10.3) 05/11/24 21:13 Total Bilirubin 1.0 mg/dl (0.2-1.0) 05/11/24 21:13 AST 19 U/L (13-39) 05/11/24 21:13 ALT 11 U/L (7-52) 05/11/24 21:13 Alkaline Phosphatase 115 U/L (34-104) H 05/11/24 21:13 Troponin I High Sens 8.4 pg/ml (0-20) 05/11/24 21:13 Total Protein 6.5 gm/dl (6.0-8.3) 05/11/24 21:13 Albumin 3.9 gm/dl (3.4-5.0) 05/11/24 21:13 Globulin 2.6 gm/dl (2.5-4.0) 05/11/24 21:13 Albumin/Globulin Ratio 1.5 (0.9-2) 05/11/24 21:13 TSH 1.404 uIu/ml (0.300-4.500) 05/11/24 21:13 Urine Color Dark Yellow 05/11/24 20:55 Urine Appearance Cloudy (Clear) A 05/11/24 20:55 Urine pH 6.5 (4.5-7.5) 05/11/24 20:55 Ur Specific Converse 1.021 (1.000-1.030) 05/11/24 20:55 Urine Protein Trace (Negative) H 05/11/24 20:55 Urine Glucose (UA) Negative (Negative) 05/11/24 20:55 Urine Ketones Negative (Negative) 05/11/24 20:55 Urine Blood Trace (Negative) H 05/11/24 20:55 Urine Nitrite Positive (Negative) A 05/11/24 20:55 Urine Bilirubin Negative (Negative) 05/11/24 20:55 Urine Urobilinogen Positive (Negative) H 05/11/24 20:55 Ur Leukocyte Esterase 2+ (Negative) H 05/11/24 20:55 Urine WBC (Auto) >50 /hpf (0-5) H 05/11/24 20:55 Urine RBC (Auto) 11-20 /hpf (0-2) H 05/11/24 20:55 U Hyaline Cast (Auto) 3-5 /lpf (0-2) H 05/11/24 20:55 U Epithel Cells (Auto) 0-2 /hpf (0-2) 05/11/24 20:55 Urine Bacteria (Auto) 4+ (None Seen) H 05/11/24 20:55 Calcium Oxalate Crystal Present (None Prsent) A 05/11/24 20:55 SARS-CoV-2 (PCR) NEGATIVE (Negative) 05/11/24 21:13 Influenza Type A (PCR) Positive (Neg) A 05/11/24 21:13 Influenza Type B (PCR) Negative (Neg) 05/11/24 21:13 RSV (RT-PCR) Negative (Neg) 05/11/24 21:13 Impressions Chest X-Ray 05/11/24 20:57 Exam(s): XR CXR 1 VIEW EXAM: XR Chest, 1 View CLINICAL HISTORY: Reason for exam: , ams. TECHNIQUE: Frontal view of the chest. COMPARISON: Prior chest x-ray from April 07, 2024. FINDINGS: Lungs: Mild to moderate peribronchial thickening of the central lower lobe bronchi with increased interstitial opacities in the lower lobes.. No consolidation. Pleural space: Unremarkable. No pneumothorax. Heart: Unremarkable. No cardiomegaly. Mediastinum: Unremarkable. Normal mediastinal contour. Bones/joints: Mild dextroscoliosis. Status post fusion of the proximal lumbar spine. No acute fracture. IMPRESSION: Bronchitis, which may be of infectious or inflammatory etiologies. No consolidation or pleural effusion. Electronically signed by: Jennifer Paris MD 05/11/24 22:09 PM ECG Additional Comments: ECG. Normal sinus rhythm rate 72. Incomplete right bundle branch block. Junctional ST depression probably normal. No significant change was found. Code Status & VTE Plan VTE Prophylaxis Plan VTE Prophylaxis will be ordered: Yes
[2024-05-12] MEDS ORDERED: NITROGLYCERIN SL 0.4 MG/TAB TAB SL PRN (03:37)
[2024-05-12] MEDS ORDERED: ACETAMINOPHEN 325 MG TAB PO PRN (03:37)
[2024-05-12] MEDS: OSELTAMIVIR PHOSPHATE 75 MG CAP PO STA (04:19)
[2024-05-12] MEDS: SODIUM CHLORIDE 0.9% 1,000 ML IV SCH (04:19)
[2024-05-12] MEDS: CEFEPIME 2000MG 2,000 MG/20 ML SYR IV SCH (05:50)
--- OUTSIDE RECORDS SUMMARY | 2024-05-12 06:45 | External Medical Summary | Summary of Care ---
Author Name Unknown Organization [facility] Address [address] [place] [address] Phone [phone] Care Team Providers Care Cigar Maker Name Role Phone Marsha Mayerr Iram Primary Care Provider Reason for Visit * Reason Onset Date Comments Appointment 05/11/2024 Encounter Details Date Type Department Care Team (Late st Contact Info) Description 05/11/2024 Telephone [facility], [place] [address] [place] [address] Sloan Au JALIL [address] [place] [address] Appointment Allergies Active Allergy Reactions Criticality Noted Date Comments Aspirin 12/17/2018 Other reaction(s): "BLEEDING" S/P GASTRIC BYPASS Erythromycin Base High 11/04/2023 Other Reaction(s): Itching Fentanyl High 12/17/2018 Other reaction(s): "DID NOT TOLERATE"-patch- "went nuts" Ibuprofen High 12/17/2018 Other reaction(s): per d/t ulcer history Indomethacin 12/26/2009 Indomethacin High 12/17/2018 Other reaction(s): HIVES Ketorolac Low 12/17/2018 Other reaction(s): NAUSEA Lidocaine 04/14/2024 Neomycin 08/09/2004 blisters Other - Drugs 09/23/2003 "mycins" itching Penicillins 08/09/2004 edema and rash as a teen he had an injection in his arm and the arm swelled. No hives no throat swelling. Tolerated ancef october 2018 no problem Vancomycin Low 12/17/2018 Other reaction(s): UNKNOWN REACTION documented as of this encounter (statuses as of 05/11/2024) Medications Pantoprazole Sodium 40 MG Oral Tablet [...] mg Oral Daily(AM),Takes at bedtime, Reported on 04/26/2024 Loratadine 10 MG Oral Capsule Take 1 Capsule by mouth in the morning. Active Atorvastatin Calcium 10 MG Oral Tablet (Lipitor)Indicat ions:Elevated cholesterol Take 1 Tablet by mouth in the morning. 100 Tablet 2 11/28/2023 11:31 AM EDT 4 Active Cyanocobalamin 1000 MCG/ML Injection Kit Inject 1,000 mcg into a large muscle every 30 days. 4 Active LORazepam 1 MG Oral Tablet (Ativan) Take 1 Tablet by mouth every 8 hours as needed for Anxiety. 1 Tablet 4 Active Melatonin 10 MG Oral Tablet [...] in the morning. As needed . Active Acetaminophen 500 MG Oral Tablet (Tylenol) [...] 1 Tablet before bedtime. 60 Tablet 3 04/20/2024 11:36 AM EST 4 Active Tamsulosin HCl 0.4 MG Oral Capsule (Flomax)Indicati ons:Other chronic pain Take 1 Capsule by mouth in the morning. 30 Capsule 3 04/20/2024 11:36 AM EST 4 Active oxyCODONE HCl ER 10 MG Oral Tablet ER 12 Hour Abuse-Deterrent (OxyCONTIN)Indic ations:Other chronic pain Take 1 Tablet by mouth in the morning and 1 Tablet before bedtime. 60 Tablet 4 Active Additional Information Patient not taking.Reported on 04/26/2024 oxyCODONE-Acetam inophen 5-325 MG Oral Tablet (Percocet)Indica tions:History of trauma to spine Take 1 Tablet by mouth every 4 hours as needed for Pain, Severe. 30 Tablet 03/24/2024 2:35 PM EST 4 Active levoFLOXacin 750 MG Oral Tablet Take 1 Tablet by mouth in the morning. For 7 days. . Active Mirtazapine 30 MG Oral Tablet (Remeron) Take 1 Tablet by mouth at bedtime. 90 Tablet 04/15/2024 6:38 PM EST 4 Active OLANZapine 5 MG Oral Tablet (zyPREXA) Take 1 Tablet by mouth at bedtime. 90 Tablet 04/08/2024 8:22 AM EST 4 Active traZODone HCl 50 MG Oral Tablet (Desyrel)Indicat ions:Coronary artery disease involving oneida coronary artery of oneida heart without angina pectoris,Stage 3a chronic kidney disease (HCC),Gastroesop hageal reflux disease without esophagitis,Oscar ntia (HCC) Take one-half tablet by mouth at bedtime as needed for insomnia 90 Tablet 3 5 Active Dexcom G7 Analytical Lead DeviceIndication s:Severe dementia associated with other underlying disease, with other behavioral disturbance (HCC),Impaired fasting blood sugar Use as directed. Use to monitor blood sugar daily 1 Each 1 5 Active Dexcom G7 SensorIndication s:Severe dementia associated with other underlying disease, with other behavioral disturbance (HCC),Impaired fasting blood sugar Use as directed every 10 days. 12 Each 3 5 Active levoFLOXacin 750 MG Oral Tablet (Levaquin) take 1 tablet (750 mg) orally daily for 6 days 6 Tablet 04/22/2024 12:16 PM EST 5 Active Morphine Sulfate ER 15 MG Oral Tablet Extended Release (MS Contin)Indicatio ns:Other chronic pain Take 1 Tablet by mouth in the morning and 1 Tablet before bedtime. 60 Tablet 05/05/2024 3:53 PM EST 5 Active oxyCODONE HCl 10 MG Oral Tablet (Roxicodone)[place] cations:Other chronic pain Take 1 Tablet by mouth in the morning and 1 Tablet before bedtime. 60 Tablet 5 Active Hospital, Clinic, or Other Facility Administered Medication Ordered Dose Route Frequency Start Date End Date Status Vitamin B-12 (Cyanocobalamin) inj 1,000 mcgIndications:B12 deficiency 1000 mcg IM [id number] 01/28/2024 12/29/2024 Active documented as of this encounter (statuses as of 05/11/2024) Active Problems Problem Noted Date Diagnosed Date [...] anemia 04/24/2017 Coronary artery disease invo lving oneida heart without angina pectoris 04/18/2016 Incomplete tear of right rotator cuff 04/15/2016 Overview (04/15/2016): 04/23 Dr Eduardo guerrero. Anxiety 09/28/2014 Diverticulitis of colon 09/16/2014 Intestinal postoperative nonabsorption 1 [facility] OTHER*[id number] 09/14/2009 MEDICATION USE AGREEMENT 05/19/2008 Overview (05/19/2008): See kim GERD (gastroesophageal reflux disease) Gout S/P gastric bypass S/P spinal fusion documented as of this encounter (statuses as of 05/11/2024) Resolved Problems Problem Noted Date Diagnosed Date Resolved Date Kidney disease, chronic, sta ge III (GFR 30-59 ml/min) 11/16/2018 02/17/2020 Overview: Per CKD protocol Well adult exam 04/18/2016 09/24/2018 Overview (06/01/2018): ??Need eval hypoglycemia? S/p gastric bypass. Pain mgmt Dr Syed Asencio--[facility] +pain pump 02/22 EGD-Gastric [...] Tobacco use disorder 09/18/2009 011 Bariatric Proteinuria Research*[id number] 09/14/2009 12/27/2009 Organic sleep disorder 06/22/200910/10 Morbid [...] as of this encounter (statuses as of 05/11/2024) Immunizations Name Administration Dates Next Due COVID-19 [...] the money to buy more. Never true 05/10/19 25 Within the past 12 months, t he food you bought just didn't last and you didn't have money to get more. Never true 05/10/2024 Childcare Answer Date Recorded Do you feel overwhelmed with taking care of a child, family member or friend? No 05/10/2024 Does your family need help f inding childcare? (Household - for ages 0-17 years) Not on file 05/10/2024 Clothing Answer Date Recorded Have you been unable to get clothing when it was really needed? No 05/10/2024 Is your family able to get c lothes or diapers when needed? (Household - for ages 0-17 years) Not on file 05/10/2024 Personal Safety Answer Date Recorded Do you feel unsafe or have concerns for your saf ety? No 05/10/2024 Do you have concerns for you r family's safety? (Household - for ages 0-17 years) Not on file 05/10/2024 Utilities Answer Date Recorded Do you have trouble paying y our heating, water, or electric bill? No 05/10/2024 Is your family able to pay t he heat, water, or electric bill? (Household - for ages 0-17 years) Not on file 05/10/2024 Does your family have access to good internet? (Household - for ages 0-17 years) Not on file 05/10/2024 Employment Status Answer Date Recorded Are you unemployed or without regular income? No 05/10/2024 Does the [facility] have a [facility] source [facility] income? (Household - for ages 0-17 years) Not on file 05/10/2024 Social Connections Answer Date Recorded How often do you feel lonely or isolated from th ose around you? Never 05/10/2024 Financial Resource Strain Answer Date R ecorded Do you have any trouble payi ng for your medications, or do you think you might in the future? No 05/10/2024 Does your family have troubl e paying for medicine? (Household - for ages 0-17 years) Not on file 05/10/2024 Transportation Needs Answer Date Record ed READ ONLY Do you have troubl e getting a ride to medical visits or work? Never True 05/10/2024 Does your family have a hard time getting a ride to doctors visits? (Household - for ages 0-17 years) Not on file 05/10/2024 Has lack of transportation k ept you from medical appointments, meetings, work, or from getting things needed for daily living? Check all that apply. No 05/10/2024 Do you (or your family) have trouble finding or paying for a ride (transportation)? (Household - for ages 0-17 years) Not on file 05/10/2024 Housing Stability Answer Date Recorded Do you currently live in a s helter or have no steady place to sleep at night? No 05/10/2024 READ ONLY Do you think you a re at risk of becoming homeless? No 05/10/2024 Does your family worry about paying for your home or becoming homeless? (Household - for ages 0-17 years) Not on file 0 05/10/2024 Are you homeless or worried that you might be in the future? No 05/10/2024 Are you (or your family) lisa eless or worried that you might be in the future? (Household - for ages 0-17 years) Not on file Food Insecurity Answer Date Recorded Do you need food for this week? No 05/10/2024 Are you able to get enough f ood for your family? (Household - for ages 0-17 years) Not on file 05/10/2024 Does your family need food t his week? (Household - for ages 0-17 years) Not on file 05/10/2024 Do you always have enough fo od for your family? 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 Please reach out to to ensure set up.Make visit if need be. documented in this encounter Plan of Treatment Upcoming Encounters Date Type Department Care Team (Late st Contact Info) Description 05/12/2024 10:00 AM EST Scheduled Telephone [facility], [facility] [address] [place] [address] Coordinator, [employer] [facility] [employer] [facility] [place] [address] 05/13/2024 5:00 PM EST Scheduled Telephone Care Coordination and Integration [address] [place] [address] Olena Shcultz, Community Health Development Associate [address] [place] [address] 05/20/2024 1:40 PM EST Office Visit Family Practice [facility] [address] [place] [address] Charles Mayer DO [address] [facility] [place] [address] 05/20/2024 3:40 PM EST Office Visit Neurology [address] [place] [address] Naresh Hampton DO [address] [place] [address] 05/21/2024 3:00 PM EST Office Visit Urology Reji Haines [address] [place] [address] Ruth Anguiano PA-C [address] [address] 05/25/2024 8:30 AM EST Home Visit [facility], [facility] [address] [place] [address] Meghna Ramon, LUIS [address] [place] [address] 06/03/2024 9:00 AM EST Home Visit [facility], [facility] [address] [place] [address] Gregg Rosen PA-C [address] [place] [address] 10/28/2024 11:40 AM EDT Office Visit Family [facility] [address] [place] [address] Charles Mayer DO [address] [place] [address] Scheduled Procedures Name Priority Associated Diagnoses Date/Ti me ESOPHAGOGASTRODUODENOSCOPY ( EGD), FLEXIBLE, TRANSORAL, DIAGNOSTIC Recall Esophageal reflux Health Maintenance Due Date Last Done Comments Cologuard 2008 Fecal Occult Blood Test 2008 Sigmoidoscopy 2008 Zoster Vaccines (1 of 2) 2013 Pneumococcal Vaccine: 50+ Years (2 of 2 - PCV) 01/14/2014 01/14/2013 Colonoscopy 06/03/2018 06/03/2017, 06/03/2017 Colorectal Cancer Screening 06/03/2018 COVID-19 Vaccine ( season) 2023 09/11/2020, 08/14/2020 Albumin/Creatinine Ratio 06/11/2024 06/12/2023, 06/06/2014 GFR 10/22/2024 04/24/2024, 01/06, 11/25/2023, Additional history exists CKD PHOS USE SMARTSET 74073 11/24/202411/06, 06/11/2023, 12/24/2019 Depression Screening 01/21/2025 01/22/2024 CKD HGB USE SMARTSET 40930 04/24/202504/24, 04/24/2024, 11/25/2023, Additional history exists Diabetes Screening 04/24/2027 04/24/2024, 1 , 11/25/2023, Additional history exists DTap/Tdap Vaccines (5 - Td or Tdap) 01/27/2034 01/28/2024, 11/07/2013, 11/07/2013, Additional history exists RETIRED - COLONOSCOPY-ANNUAL AGES 18-100 Discontinued 06/03/2017, [...] Documents on File Type Date Recorded Patient Candles Pourer Expl 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 Care Teams Cigar Maker Relationship Specialty Start Date End Date Charles Mayer DO [address] [place] [address] PCP - General Family Medicine 05/26/23 documented as of this encounter
--- OUTSIDE RECORDS SUMMARY | 2024-05-12 06:45 | External Medical Summary | Summary of Care ---
Author Name Unknown Organization [facility] Address [address] [place] [address] Phone [phone] Care Team Providers Care Meat Boner Name Role Phone Charles Mayer Primary Care Provider Reason for Visit * Reason Onset Date Comments [facility]: Maintenance 05/10/2024 Encounter Details Date Type Department Care Team (Late st Contact Info) Description 05/10/2024 Telephone [facility], [address] [place] [address] Aure Garcia, [facility] [address] [place] [address] [facility]: Maintenance Allergies Active Allergy Reactions Criticality Noted Date [...] Oral Tablet (Desyrel)Indicat ions:Coronary artery disease involving cata[place] coronary artery of [place]ata[place] heart without angina pectoris,Stage 3a chronic kidney disease (HCC),Gastroesop hageal reflux disease without esophagitis,Oscar ntia (HCC) Take one-half tablet by mouth at bedtime as needed for insomnia 90 Tablet 3 5 Active Dexcom G7 Embedded Systems Engineer DeviceIndication s:Severe dementia associated with other underlying [...] inj 1,000 mcgIndications:B12 deficiency 1000 mcg IM [id number] 01/28/2024 12/29/2024 Active documented as of this [...] anemia 04/24/2017 Coronary artery disease invo lving catawba heart without angina pectoris 04/18/2016 Incomplete tear of right rotator cuff 04/15/2016 Overview (04/15/2016): 04/23 Dr Eduardo guerrero. 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 [facility] accepted order this morning. CGM was canceled due to patient not being eligible, they spoke with this morning. JALIL Arvizu documented in this encounter Plan of Treatment Upcoming Encounters Date Type Department Care Team (Late st Contact Info) Description 05/12/2024 10:00 AM EST Scheduled Telephone [facility], [facility] [address] [place] [address] Coordinator, Miguelito Benedict [facility] [address] [place] [address] 05/20/2024 1:40 PM EST Office Visit Family [facility] [address] [place] [address] Charles Mayer, [address] [place] [address] 05/20/2024 3:40 PM EST Office Visit Neurology [address] [place] [address] Naresh Hampton, DO [address] [facility] [place] [id number] 05/21/2024 3:00 PM EST Office Visit Urology Reji Haines [address] [facility] [address] [address] Ruth Anguiano PA-C [address] [address] 05/25/2024 8:30 AM EST Home Visit [facility], [facility] [address] [address] Meghna Ramon, LUIS [address] [place] [address] 06/03/2024 9:00 AM EST Home Visit [facility], [facility] [address] [place] [address] Gregg Rosen PA-C [address] [place] [address] 10/28/2024 11:40 AM EDT Office Visit Family [facility] [address] [place] [address] Charles Mayer, DO [address] [place] [address] Scheduled Procedures Name Priority Associated Diagnoses Date/Ti [...] 08/14/2020 Albumin/Creatinine Ratio 06/11/2024 06/12/2023, 06/2014 GFR 10/22/2024 04/24/2024, 01/06, 11/25/2023, Additional history exists CKD PHOS USE SMARTSET 18428 11/24/202411/06, 06/11/2023, 12/24/2019 Depression Screening 01/21/2025 01/22/2024 CKD HGB USE SMARTSET 47472 04/24/202504/24, 04/24/2024, 11/25/2023, Additional history exists Diabetes [...] Documents on File Type Date Recorded Patient Shallot Packer Expl 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 Care Teams Meat Boner Relationship Specialty Start Date End Date Charles Mayer DO [address] [place] [address] PCP - General Family Medicine 05/26/23 documented as of this encounter
--- OUTSIDE RECORDS SUMMARY | 2024-05-12 06:45 | External Medical Summary | Summary of Care ---
Author Name Unknown Organization [facility] Address [address] [place] [address] Phone [phone] Care Team Providers Care Christian Science Practitioner Name Role Phone Andrea Mayer DO Primary Care Provider Reason for Visit * Reason Comments Medication Refill Encounter Details Date Type Department Care Team (Late st Contact Info) Description 05/06/2024 Refill Family Practice [facility] [address] [place] [address] Andrea Mayer DO [address] [place] [address] Other chronic pain Allergies Active Allergy Reactions Criticality Noted Date [...] as of this encounter (statuses as of 05/10/2024) Medications Pantoprazole Sodium 40 MG Oral Tablet [...] Additional Information Patient not taking.Reported on 04/26/2024 oxyCODONE-Aceta minophen 5-325 MG Oral Tablet (Percocet)Indic [...] Oral Tablet (Desyrel)Indica tions:Coronary artery disease involving [place] coronary artery of [place] heart without angina pectoris,Stage 3a chronic kidney disease (HCC),Gastroeso phageal reflux disease without esophagitis,Dem entia (HCC) Take one-half tablet by mouth at bedtime as needed for insomnia 90 Tablet 3 5 Active Dexcom G7 Landcare Facilitator DeviceIndicatio ns:Severe dementia associated with other underlying disease, with other behavioral disturbance (HCC),Impaired fasting blood sugar Use as directed. Use to monitor blood sugar daily 1 Each 1 5 Active Dexcom G7 SensorIndicatio ns:Severe dementia associated with other underlying disease, with other behavioral disturbance (HCC),Impaired fasting blood sugar Use as directed every 10 days. 12 Each 3 5 Active levoFLOXacin 750 MG Oral Tablet (Levaquin) take 1 tablet (750 mg) orally daily for 6 days 6 Tablet 04/22/2024 12:16 PM EST 5 Active Morphine Sulfate ER 15 MG Oral Tablet Extended Release (MS Contin)Indicati ons:Other chronic pain Take 1 Tablet by mouth in the morning and 1 Tablet before bedtime. 60 Tablet 05/05/2024 3:53 PM EST 5 Active oxyCODONE HCl 10 MG Oral Tablet (Roxicodone)Ind ications:Other chronic pain Take 1 Tablet by mouth in the morning and 1 Tablet before bedtime. 60 Tablet 5 Active Zinc Acetate 50 MG Oral Capsule Take 1 Capsule by mouth daily. 025 Discontin ued(Medic ation List Clean Up) Potassium Chloride ER 10 MEQ Oral Capsule Extended Release Take by mouth. 025 Discontin ued(Medic ation List Clean Up) predniSONE 20 MG Oral Tablet (Deltasone) 1 Tablet. 5 025 Discontin ued(Medic ation List Clean Up) Hospital, Clinic, or Other Facility Administered Medication Ordered Dose Route Frequency Start Date End Date Status Vitamin B-12 (Cyanocobalamin) inj 1,000 mcgIndications:B12 deficiency 1000 mcg IM [id number] 01/28/2024 12/29/2024 Active documented as of this encounter (statuses as of 05/10/2024) Active Problems Problem Noted Date Diagnosed Date [...] 04/24/2017 Coronary artery disease invo lving [place] heart without angina pectoris 04/18/2016 Incomplete tear of right rotator cuff 04/15/2016 Overview (04/15/2016): 04/23 Dr Eduardo guerrero. Anxiety 09/28/2014 Diverticulitis of colon 09/16/2014 Intestinal postoperative nonabsorption 1 CALLAHAN RESEARCH OTHER*[id number] 09/14/2009 MEDICATION USE AGREEMENT 05/19/2008 Overview (05/19/2008): See kim GERD (gastroesophageal reflux disease) Gout S/P gastric bypass S/P spinal fusion documented as of this encounter (statuses as of 05/10/2024) Resolved Problems Problem Noted Date Diagnosed Date [...] Tobacco use disorder 09/18/2009 011 Bariatric Proteinuria Research*[id number] 09/14/2009 12/27/2009 Organic sleep disorder 06/22/200910/10 Morbid [...] as of this encounter (statuses as of 05/10/2024) Immunizations Name Administration Dates Next Due COVID-19 [...] No 05/10/2024 Does the household have a [facility] source of income? 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 Authorizing Provider: ANDREA MAYER * Telephone Encounter - Paula Seo LPN - 05/08/2024 9:23 AM ESTPending Prescriptions: Disp Refills oxyCODONE HCl 10 MG Oral Tablet (Roxicodon*60 Tab*0 Sig: Take 1 Tablet by mouth in the morning and 1 Tablet before bedtime. * Telephone Encounter - Paula Seo LPN - 05/08/2024 9:20 AM EST Did you pend patient's preferred pharmacy and medication before forwarding?yes Pharmacy: [facility] Pending Prescriptions: Disp Refills oxyCODONE HCl 10 MG Oral Tablet (Roxicodo*60 Tab*0 Sig: Take 1 Tablet by mouth in the morning and 1 Tablet before bedtime. Last Visit: 04/14/2024 (in office), Visit date not found (telemedicine) Next Visit: 05/20/2024 If no future appointments scheduled, and last appointment is greater than a year ago, please schedule patient for a follow-up appointment Last date the medication was ordered: 03/17/24 Is this request for a controlled substance?Yes, What was the last refill date 12/11/24 w/ quantity 60 and dosage 10 mg and Urine Drug Screen Not completed Urine Drug Screen:No results found. However, due to the size of the patient record, not all encounters were searched. Please check Results Review for a complete set of results. Patient Phone Numbers Labs: Lab Results Component Value Date/Time CREAT 1.3 (H) 04/24/2024 03:56 PM CREAT 1.5 (H) 12/24/2019 01:03 PM POTASSIUM 4.1 04/24/2024 03:56 PM POTASSIUM 4.1 12/24/2019 01:03 PM TSH 1.42 08/14/2020 09:23 AM TSH 1.73 12/29/2018 09:39 AM LDL 26 01/28/2024 11:34 AM LDL 22 12/24/2019 01:03 PM LDL NOT APPLICABLE 12/24/2019 01:03 PM ALT 14 04/24/2024 03:56 PM ALT 12 12/24/2019 01:03 PM HGBA1C 5.3 12/29/2018 09:39 AM documented in this encounter Plan of Treatment Upcoming Encounters Date Type Department Care Team (Late st Contact Info) Description 05/12/2024 10:00 AM EST Scheduled Telephone [facility] [place] [address] [address] Coordinator, [facility] [address] [address] 05/20/2024 1:40 PM EST Office Visit Family [facility] [address] [address] Andrea Mayer DO [address] [address] 05/20/2024 3:40 PM EST Office Visit Neurology [address], [place] [address] Naresh Hampton DO [address] [place] [address] 05/21/2024 3:00 PM EST Office Visit Urology Reji Haines [address] [address] Ruth nAguiano PA-C [address] [address] 05/25/2024 8:30 AM EST [facility] [address] [place] [address] Meghna Ramon RN [address] [place] [address] 06/03/2024 9:00 AM EST [facility] Visit [facility] [address] [place] [address] Gregg Rosen [facility]C [facility] [place] [address] 10/28/2024 11:40 AM EDT Office Visit Family Practice [facility] [address] [place] [address] Andrea Mayer DO [address] [facility] [place] [address] Scheduled Procedures Name Priority Associated Diagnoses Date/Ti [...] Additional history exists CKD PHOS USE SMARTSET 44363 11/24/202411/06, 06/11/2023, 12/24/2019 Depression Screening 01/21/2025 01/22/2024 CKD HGB USE SMARTSET 96507 04/24/202504/24, 04/24/2024, 11/25/2023, Additional history exists Diabetes [...] this encounter Visit Diagnoses Diagnosis Other chronic pain documented in this encounter Advance Directives Documents on File Type Date Recorded 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 Care Teams Christian Science Practitioner Relationship Specialty Start Date End Date Andrea Mayer DO [address] [address] PCP - General Family Medicine 05/26/23 documented as of this encounter
--- OUTSIDE RECORDS SUMMARY | 2024-05-12 06:46 | External Medical Summary | Summary of Care ---
Author Name Unknown Organization [facility] Address [address] [place] [address] Phone [phone] Care Team Providers Care Adult Literacy Instructor Name Role Phone Charles Mayer DO Primary Care Provider Encounter Details Date Type Department Care Team (Late st Contact Info) Description 04/24/2024 CardioDiagnostic Study Unspecified Department Dipesh Chavira DO [address] [place] [address] [place] [id number] EKG Report Allergies Active Allergy Reactions Criticality Noted Date [...] as of this encounter (statuses as of 04/27/2024) Medications Pantoprazole Sodium 40 MG Oral Tablet [...] Take 1 Capsule by mouth daily. Active Atorvastatin Calcium 10 MG Oral Tablet [...] in the morning. As needed . Active Potassium Chloride ER 10 MEQ Oral Capsule Extended Release Take by mouth. Active Acetaminophen 500 MG [...] Tablet 04/08/2024 8:22 AM EST 4 Active predniSONE 20 MG Oral Tablet (Deltasone) 1 Tablet. 5 Active traZODone HCl 50 MG Oral Tablet (Desyrel)Indicat ions:Coronary artery disease involving [place] coronary artery of [place] heart without angina pectoris,Stage 3a chronic kidney disease (HCC),Gastroesop hageal reflux disease without esophagitis,Oscar ntia (HCC) Take one-half tablet by mouth at bedtime as needed for insomnia 90 Tablet 3 5 Active Dexcom G7 Machined Parts Quality Inspector DeviceIndication s:Severe dementia associated with other underlying [...] days 6 Tablet 04/22/2024 12:16 PM EST Active Hospital, Clinic, or Other Facility Administered Medication Ordered Dose Route Frequency Start Date End Date Status Vitamin B-12 (Cyanocobalamin) inj 1,000 mcgIndications:B12 deficiency 1000 mcg IM [id number] 01/28/2024 12/29/2024 Active documented as of this encounter (statuses as of 04/27/2024) Active Problems Problem Noted Date Diagnosed Date [...] anemia 04/24/2017 Coronary artery disease invo lving [place] heart without angina pectoris 04/18/2016 Incomplete tear of right rotator cuff 04/15/2016 Overview (04/15/2016): 04/23 Dr Eduardo guerrero. Anxiety 09/28/2014 Diverticulitis of colon 09/16/2014 Intestinal postoperative nonabsorption 1 SINDY RESEARCH OTHER*[id number] 09/14/2009 MEDICATION USE AGREEMENT 05/19/2008 Overview (05/19/2008): See kim GERD (gastroesophageal reflux disease) Gout S/P gastric bypass S/P spinal fusion documented as of this encounter (statuses as of 04/27/2024) Resolved Problems Problem Noted Date Diagnosed Date [...] Tobacco use disorder 09/18/2009 011 Bariatric Proteinuria Research*[id number] 09/14/2009 12/27/2009 Organic sleep disorder 06/22/200910/10 Morbid [...] as of this encounter (statuses as of 04/27/2024) Immunizations Name Administration Dates Next Due COVID-19 [...] 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 Not on file Not on file documented as of this encounter Procedure Notes * Dorian Harris DO - 04/24/2024 3:37 PM ESTAssociated Order(s): EKG REPORT REASON FOR STUDY: ABD PAIN CONCLUSIONS: Normal sinus rhythm Low voltage QRS, consider pulmonary disease, pericardial effusion, or normal variant Incomplete right bundle branch block When compared with ECG of 16-Mar-2019 13:21, QRS duration has decreased Ventricular Rate: 67 Atrial Rate: 67 NE Interval: 132 QRS Duration: 106 QT/QTc: 446/471 ms P-R-T [place]: 52 : 24 : 51 degrees documented in this encounter Plan of Treatment Upcoming Encounters Date Type Department Care Team (Late st Contact Info) Description 04/28/2024 8:45 AM EST Scheduled Telephone [facility], [facility] [address] [facility] [place] [address] [facility] Nurse [facility] [address] [place] [address] 04/29/2024 11:00 AM EST [facility] [address] [place] [address] Gregg Rosen PA-C [address] [place] [address] 05/10/2024 8:30 AM EST [facility] Visit [facility] [address] [place] [address] Meghna Ramon RN [address] [place] [address] 05/20/2024 1:40 PM EST Office Visit Family Practice [facility] [address] [facility] [place] [address] Charles Mayer DO [address] [facility] [place] [address] 05/20/2024 3:40 PM EST Office Visit Neurology [address] [place] [address] Naresh Hampton, DO [address] [place] [facility] [place] [address] 05/21/2024 3:00 PM EST Office Visit Urology Reji Haines [address] [place] [address] Ruth Anguiano PA-C [address] [address] 06/03/2024 9:00 AM EST [facility] Visit [facility], [facility] [address] [facility] [place] [address] Gregg Rosen PA-C [address] [place] [address] 10/28/2024 11:40 AM EDT Office Visit Family [facility] [address] [place] [address] Charles Mayer DO [address] [place] [address] Scheduled Procedures Name Priority Associated Diagnoses Date/Ti [...] Additional history exists CKD PHOS USE SMARTSET 01689 11/24/202411/06, 06/11/2023, 12/24/2019 Depression Screening 01/21/2025 01/22/2024 CKD HGB USE SMARTSET 13919 04/24/202504/24, 04/24/2024, 11/25/2023, Additional history exists Diabetes [...] Not on filedocumented as of this encounter Procedures Procedure Name Priority Date/Time Associated Diagnosis Comments EKG REPORT 04/24/2024 3:37 PM EST documented in this encounter Results * EKG REPORT (04/24/2024 3:37 PM EST) 04/24/2024 3:37 PM EST Narrative Procedure Note Dorian Harris, DO - 04/24/2024 3:37 PM EST REASON FOR STUDY: ABD PAIN CONCLUSIONS: Normal sinus rhythm Low voltage QRS, consider pulmonary disease, pericardial effusion, ornormal variant Incomplete right bundle branch block When compared with ECG of 16-Mar-2019 13:21, QRS duration has decreased Ventricular Rate: 67 Atrial Rate: 67 NE Interval: 132 QRS Duration: 106 QT/QTc: 446/471 ms P-R-T [place]: 52 : 24 : 51 degrees Dipesh Chavira DO EKG Final Resu lt documented in this encounter Advance Directives Documents on File Type Date Recorded Patient Renewals Manager Expl 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 Care Teams Adult Literacy Instructor Relationship Specialty Start Date End Date Charles Mayer DO [address] [place] [address] PCP - General Family Medicine 05/26/23 documented as of this encounter
--- OUTSIDE RECORDS SUMMARY | 2024-05-12 06:46 | External Medical Summary | Summary of Care ---
Author Name Unknown Organization [facility] Address [address] [place] [address] Phone [phone] Care Team Providers Care Wire Winding Machine Operator Name Role Phone Charles Mayer DO Primary Care Provider Reason for Visit * Reason Comments Medication Refill Encounter Details Date Type Department Care Team (Late st Contact Info) Description 05/05/2024 Refill Family Practice [facility] [address] [place] [address] Charles Mayer DO [address] [place] [address] History of trauma to spine Allergies Active [...] as of this encounter (statuses as of 05/06/2024) Medications Pantoprazole Sodium 40 MG Oral Tablet [...] Oral Tablet (Desyrel)Indicat ions:Coronary artery disease involving [place] coronary artery of [place] heart without angina pectoris,Stage 3a chronic kidney disease (HCC),Gastroesop hageal reflux disease without esophagitis,Oscar ntia (HCC) Take one-half tablet by mouth at bedtime as needed for insomnia 90 Tablet 3 5 Active Dexcom G7 Merchandise Clerk DeviceIndication s:Severe dementia associated with other underlying [...] Tablet 05/05/2024 3:53 PM EST 5 Active Hospital, Clinic, or Other Facility Administered Medication Ordered Dose Route Frequency Start Date End Date Status Vitamin B-12 (Cyanocobalamin) inj 1,000 mcgIndications:B12 deficiency 1000 mcg IM [id number] 01/28/2024 12/29/2024 Active documented as of this encounter (statuses as of 05/06/2024) Active Problems Problem Noted Date Diagnosed Date [...] 04/24/2017 Coronary artery disease invo lving [place] heart without angina pectoris 04/18/2016 Incomplete tear of right rotator cuff 04/15/2016 Overview (04/15/2016): 04/23 Dr Eduardo guerrero. Anxiety 09/28/2014 Diverticulitis of colon 09/16/2014 Intestinal postoperative nonabsorption 1 CALLAHAN RESEARCH OTHER*[id number] 09/14/2009 MEDICATION USE AGREEMENT 05/19/2008 Overview (05/19/2008): See kim GERD (gastroesophageal reflux disease) Gout S/P gastric bypass S/P spinal fusion documented as of this encounter (statuses as of 05/06/2024) Resolved Problems Problem Noted Date Diagnosed Date [...] Tobacco use disorder 09/18/2009 011 Bariatric Proteinuria Research*[id number] 09/14/2009 12/27/2009 Organic sleep disorder 06/22/200910/10 Morbid [...] as of this encounter (statuses as of 05/06/2024) Immunizations Name Administration Dates Next Due COVID-19 [...] 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 * Telephone Encounter - Yonatan Garcia RPh - 05/05/2024 3:50 PM EST I have reviewed the patients controlled substance dispensing history in the Prescription Drug Monitoring Program in compliance with the [facility] regulations before prescribing a controlled substance. PDMP checked on 05/05/2024. Pending Prescriptions: Disp Refills oxyCODONE-Acetaminophen 5-325 MG Oral Tabl*30 Tab*0 Sig: Take 1 Tablet by mouth every 4 hours as needed for Pain, Severe. Last Visit: 04/14/2024 (in office), Visit date not found (telemedicine) Next Visit: 05/20/2024 Date medication was last filled: 03-24-24 Date medication is due for refill: 03-29-24 Pharmacy: [facility] Is this request for a controlled substance? and Urine Drug Screen Not completed Toxicology results: No results found. However, due to the size of the patient record, not all encounters were searched.Please check Results Review for a complete set of results. Please approve if appropriate. Yonatan Garcia, Yusuf.Ph. Clinical Pharmacist [facility] [address] [place] [address], [facility] [address] [address] MC: [phone] [id number] 05/05/2024,3:50 PM documented in this encounter Plan of Treatment Upcoming Encounters Date Type Department Care Team (Late Contact Info) Description 05/10/2024 8:30 AM EST [facility], [facility] [address] [place] [address] Meghna Ramon, RN [address] [place] [address] 05/20/2024 1:40 PM EST Office Visit [facility] [address] [place] [address] Charles Mayer, DO [address] [address] 05/20/2024 3:40 PM EST Office Visit Neurology [address] [place] [address] Naresh Hampton, DO [address] [facility] [place] [id number] 05/21/2024 3:00 PM EST Office Visit Urology Reji Haines [address] [address] [address] Ruth Anguiano PA-C [address] [address] 06/03/2024 9:00 AM EST [facility] Visit [facility], [facility] [address] [place] [address] Gregg Rosen PA-C [address] [place] [address] 10/28/2024 11:40 AM EDT Office Visit [facility] [address] [address] Charles Mayer, DO [address] [place] [address] Scheduled Procedures Name Priority Associated Diagnoses Date/Ti [...] Additional history exists CKD PHOS USE SMARTSET 03138 11/24/202411/06, 06/11/2023, 12/24/2019 Depression Screening 01/21/2025 01/22/2024 CKD HGB USE SMARTSET 81098 04/24/202504/24, 04/24/2024, 11/25/2023, Additional history exists Diabetes [...] Documents on File Type Date Recorded Patient Deliver Driver Expl 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 Care Teams Wire Winding Machine Operator Relationship Specialty Start Date End Date Charles Mayer DO [address] [address] PCP - General Family Medicine 05/26/23 documented as of this encounter
--- OUTSIDE RECORDS SUMMARY | 2024-05-12 06:46 | External Medical Summary | Summary of Care ---
Author Name Unknown Organization [facility] Address [address] [place] [address] Phone [phone] Care Team Providers Care Social Security Assessor Name Role Phone Charles Mayer DO Primary Care Provider Reason for Visit * Reason Onset Date Comments [facility]: Maintenance 04/27/2024 Encounter Details Date Type Department Care Team (Late st Contact Info) Description 04/27/2024 8:45 AM EST Scheduled Telephone [facility], [address] [place] [address] [facility], Nurse [address] [place] [address] Allergies Active Allergy Reactions Criticality Noted Date [...] Oral Tablet (Desyrel)Indicat ions:Coronary artery disease involving [place] coronary artery of [place] heart without angina pectoris,Stage 3a chronic kidney disease (HCC),Gastroesop hageal reflux disease without esophagitis,Oscar ntia (HCC) Take one-half tablet by mouth at bedtime as needed for insomnia 90 Tablet 3 5 Active Dexcom G7 Hand I Cutter DeviceIndication s:Severe dementia associated with other underlying [...] inj 1,000 mcgIndications:B12 deficiency 1000 mcg IM [id number] 01/28/2024 12/29/2024 Active documented as of this [...] anemia 04/24/2017 Coronary artery disease invo lving [place] heart without angina pectoris 04/18/2016 Incomplete tear of right rotator cuff 04/15/2016 Overview (04/15/2016): 04/23 Dr Eduardo guerrero. 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 Objective: 04/26/2024 1:35 PM 04/24/2024 7:25 PM 04/24/2024 7:00 PM 04/24/2024 6:00 PM 04/24/2024 4:00 PM VITALS ACROSS ENCOUNTERS BP 104/70 111/74 110/75 111/66 100/74 Pulse 80 70 70 70 67 Remote Patient Monitoring: NONE Oxygen Needs: NO supplemental oxygen needs identified DME Needs: NO DME needs identified Medications: No medication or dose adjustments made during acute episode Subjective: Condition Status: Symptoms resolved and back to baseline Current Concerns: Spoke to , Sugey who reports that patient is doing very well today. Has quite a bit of urineoutput with increasing fluids. He is eating/drinking well. No confusion, no fever/chills or other concerns today. Confirmed provider home visit for tomorrow. Reinforced to call [facility] with any questions/concerns. Disposition: Issue resolved. All appropriate follow up scheduled. Future Visits Scheduled: Future Appointments-next 60 days Date/Time Provider Specialty Dept Phone 04/28/2024 8:[address] [facility], Nurse [facility] [phone] 04/29/2024 11:00 AM Gregg Rosen PA-C [facility] [phone] 05/10/2024 8:30 AM Meghna Ramon RN [facility] [phone] 05/20/2024 1:40 PM (Arrive by 1:25 PM) Charles Mayer DO Family Medicine [phone] 05/20/2024 3:40 PM (Arrive by 3:25 PM) Naresh Hampton DO Neurology [phone] 05/21/2024 3:00 PM (Arrive by 2:45 PM) Ruth Anguiano PA-C Urology [phone] 06/03/2024 9:00 AM Gregg Rosen PA-C [facility] [phone] 10/28/2024 11:40 AM (Arrive by 11:25 AM) Charles Mayer DO Family Medicine [phone] Olena Meadows RN documented in this encounter Plan of Treatment Upcoming Encounters Date Type Department Care Team (Late st Contact Info) Description 04/28/2024 8:45 AM EST Scheduled Telephone [facility], [facility] [address] [place] [address] [facility], Nurse [facility] [address] [place] [address] 04/29/2024 11:00 AM EST Home Visit [facility], [facility] [address] [place] [address] Gregg Rosen PA-C [address] [place] [address] 05/10/2024 8:30 AM EST Home Visit [facility], [facility] [address] [place] [address] Meghna Ramon RN [address] [place] [address] 05/20/2024 1:40 PM EST Office Visit Family Practice [facility] [address] [place] [address] Cahrles Mayer DO [address] [facility] [place] [address] 05/20/2024 3:40 PM EST Office Visit Neurology [address] [place] [phone] Naresh Hampton, DO [address] [facility] [place] [address] 05/21/2024 3:00 PM EST Office Visit Urology Reji Haines [address] [place] [address] Ruth Anguiano PA-C [address] [place] [address] [address] 06/03/2024 9:00 AM EST Home Visit [facility] [place], [facility] [address] [place] [address] Gregg Rosen PA-C [address] [place] [address] 10/28/2024 11:40 AM EDT Office Visit Family [facility] [address] [place] [address] Charles Mayer DO [address] [place] [address] Scheduled Procedures Name Priority Associated Diagnoses Date/Ti [...] Albumin/Creatinine Ratio 06/11/2024 06/12/2023, 06/0 06/2014 GFR 10/22/2024 04/24/2024, 01/06, 11/25/2023, Additional history exists CKD PHOS USE SMARTSET 59097 11/24/202411/06, 06/11/2023, 12/24/2019 Depression Screening 01/21/2025 01/22/2024 CKD HGB USE SMARTSET 69144 04/24/202504/24, 04/24/2024, 11/25/2023, Additional history exists Diabetes [...] Documents on File Type Date Recorded 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 Care Teams Social Security Assessor Relationship Specialty Start Date End Date Charles Mayer DO [address] [place] [address] PCP - General Family Medicine 05/26/23 documented as of this encounter
--- OUTSIDE RECORDS SUMMARY | 2024-05-12 06:46 | External Medical Summary | Summary of Care ---
Author Name Unknown Organization [facility] Address [address] [place] [address] Phone [phone] Care Team Providers Care Shop Assistant Name Role Phone Charles Mayer DO Primary Care Provider Encounter Details Date Type Department Care Team (Late st Contact Info) Description 04/20/2024 Orders Only Family Practice [facility] [address] [facility] [place] [address] Annette Meadows, RN [address] [place] [address] Need for case management follow-up*; History of skull fracture; Generalized weakness Allergies Active Allergy Reactions Criticality Noted Date [...] as of this encounter (statuses as of 04/30/2024) Medications Pantoprazole Sodium 40 MG Oral Tablet [...] 4 11:31 AM EDT 11/27/19 24 Active Cyanocobalamin 1000 MCG/ML Injection Kit Inject 1,000 mcg into a large muscle every 30 days. 01/14/20 24 Active LORazepam 1 MG Oral Tablet (Ativan) Take 1 Tablet by mouth every 8 hours as needed for Anxiety. 1 Tablet 01/14/20 24 Active Melatonin 10 MG Oral Tablet Take [...] Extended Release Take by mouth. Activ e Acetaminophen 500 MG Oral Tablet (Tylenol) Take [...] 1 Tablet before bedtime. 60 Tablet 3 5 11:36 AM EST 03/17/20 24 Active Tamsulosin HCl 0.4 MG Oral Capsule (Flomax)Indica tions:Other chronic pain Take 1 Capsule by mouth in the morning. 30 Capsule 3 5 11:36 AM EST 03/17/20 24 Active oxyCODONE HCl ER 10 MG Oral Tablet ER 12 Hour Abuse-Deterren t (OxyCONTIN)Ind ications:Other chronic pain Take 1 Tablet by mouth in the morning and 1 Tablet before bedtime. 60 Tablet 03/17/20 24 Active Additional Information Patient not taking.Reported on 04/26/2024 oxyCODONE-Acet aminophen 5-325 MG Oral Tablet (Percocet)[place] cations:Histor y of trauma to spine Take 1 Tablet by mouth every 4 hours as needed for Pain, Severe. 30 Tablet 4 2:35 PM EST 03/23/20 24 Active levoFLOXacin 750 MG Oral Tablet Take 1 Tablet by mouth in the morning. For 7 days. . Active Mirtazapine 30 MG Oral Tablet (Remeron) Take 1 Tablet by mouth at bedtime. 90 Tablet 5 6:38 PM EST 04/05/20 24 Active OLANZapine 5 MG Oral Tablet (zyPREXA) Take 1 Tablet by mouth at bedtime. 90 Tablet 5 8:22 AM EST 04/05/20 24 Active predniSONE 20 MG Oral Tablet (Deltasone) 1 Tablet. 04/08/19 Active traZODone HCl 50 MG Oral Tablet (Desyrel)Indic ations:Coronar y artery disease involving [place] coronary artery of [place] heart without angina pectoris,Stage 3a chronic kidney disease (HCC),Gastroes ophageal reflux disease without esophagitis,De mentia (HCC) Take one-half tablet by mouth at bedtime as needed for insomnia 90 Tablet 3 04/19/19 Active Dexcom G7 Cake Press Operator Helper DeviceIndicati ons:Severe dementia associated with other underlying disease, with other behavioral disturbance (HCC),Impaired fasting blood sugar Use as directed. Use to monitor blood sugar daily 1 Each 1 04/19/19 Active Dexcom G7 SensorIndicati ons:Severe dementia associated with other underlying disease, with other behavioral disturbance (HCC),Impaired fasting blood sugar Use as directed every 10 days. 12 Each 3 04/19/19 Active Copper Caps 2 MG Oral Capsule (copper gluconate)[place] cations:Copper deficiency Take 8 mg of elemental copper each day orally for a week, 6 mg for the second week, 4 mg for the third week, and 2 mg thereafter 180 Capsule 3 11/25/19 24 025 Discontinued(M edication List Clean Up) Folic Acid 1 MG Oral Tablet Take 1 Tablet by mouth in the morning. 12/30/19 24 025 Discontinued(M edication List Clean Up) Magnesium 400 MG Oral Tablet Take by mouth. 025 Discontinued(M edication List Clean Up) Morphine Sulfate ER 15 MG Oral Tablet Extended Release (MS Contin)Indicat ions:Other chronic pain Take 1 Tablet by mouth in the morning and 1 Tablet before bedtime. 60 Tablet 4 3:15 PM EST 03/22/20 24 025 Discontinued(R efill) Sulfamethoxazo le-Trimethopri m 800-160 MG Oral Tablet (Bactrim DS) Take 1 Tablet by mouth in the morning and 1 Tablet before bedtime. Do all this for 5 days. Until gone. 10 Tablet 5 1:23 PM EST 04/15/19 25 025 Bath/Shower SeatIndication s:Need for case management follow-up,Hist ory of skull fracture,Gener alized weakness Use bath/shower chair as directed 1 Each 04/20/19 025 Discontinued Hospital, Clinic, or Other Facility Administered Medication Ordered Dose Route Frequency Start Date End Date Status Vitamin B-12 (Cyanocobalamin) inj 1,000 mcgIndications:B12 deficiency 1000 mcg IM [id number] 01/28/2024 12/29/2024 Active documented as of this encounter (statuses as of 04/30/2024) Active Problems Problem Noted Date Diagnosed Date [...] anemia 04/24/2017 Coronary artery disease invo lving [place] heart without angina pectoris 04/18/2016 Incomplete tear of right rotator cuff 04/15/2016 Overview (04/15/2016): 04/23 Dr Eduardo guerrero. Anxiety 09/28/2014 Diverticulitis of colon 09/16/2014 Intestinal postoperative nonabsorption 1 CALLAHAN RESEARCH OTHER*[id number] 09/14/2009 MEDICATION USE AGREEMENT 05/19/2008 Overview (05/19/2008): See kim GERD (gastroesophageal reflux disease) Gout S/P gastric bypass S/P spinal fusion documented as of this encounter (statuses as of 04/30/2024) Resolved Problems Problem Noted Date Diagnosed Date [...] Tobacco use disorder 09/18/2009 011 Bariatric Proteinuria Research*[id number] 09/14/2009 12/27/2009 Organic sleep disorder 06/22/200910/10 Morbid [...] as of this encounter (statuses as of 04/30/2024) Immunizations Name Administration Dates Next Due COVID-19 [...] 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 Not on file Not on file documented as of this encounter Plan of Treatment Upcoming Encounters Date Type Department Care Team (Late st Contact Info) Description 05/10/2024 8:30 AM EST Home Visit [facility], [facility] [address] [address] Meghna Ramon RN [address] [place] [address] 05/20/2024 1:40 PM EST Office Visit Family Practice [facility] [address] [place] [address] Charles Mayer, DO [address] [facility] [place] [address] 05/20/2024 3:40 PM EST Office Visit Neurology [address] [place] [phone] Naresh Hampton, DO [address] [facility] [address] [place] [id number] 05/21/2024 3:00 PM EST Office Visit Urology Reji Haines [address] [place] [address] Ruth Anguiano PA-C [address] [place] [address] [address] 06/03/2024 9:00 AM EST Home Visit [facility], [facility] [address] [place] [address] Gregg Rsoen PA-C [address] [place] [address] 10/28/2024 11:40 AM EDT Office Visit Family [facility] [address] [place] [address] Charles Mayer DO [address] [place] [address] Scheduled Procedures Name Priority Associated Diagnoses Date/Ti [...] 08/14/2020 Albumin/Creatinine Ratio 06/11/2024 06/12/2023, 0606/2014 GFR 10/22/2024 04/24/2024, 01/06, 11/25/2023, Additional history exists CKD PHOS USE SMARTSET 75829 11/24/202411/06, 06/11/2023, 12/24/2019 Depression Screening 01/21/2025 01/22/2024 CKD HGB USE SMARTSET 55197 04/24/202504/24, 04/24/2024, 11/25/2023, Additional history exists Diabetes [...] Diagnosis Need for case management follow-up- Primary History of skull fracture Personal history of traumatic fracture Generalized weakness Other malaise and fatigue documented in this encounter Advance Directives Documents on File Type Date Recorded 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 * Full Code Date Activated Date Inactivated Comments 07/19/2010 4:11 PM 07/20/2010 9:14 PM This order r eflects the patients wishes and were consensually agreed upon. Care Teams Shop Assistant Relationship Specialty Start Date End Date Charles Mayer DO [facility] [place] [address] PCP - General Family Medicine 05/26/23 documented as of this encounter
--- OUTSIDE RECORDS SUMMARY | 2024-05-12 06:46 | External Medical Summary | Summary of Care ---
Author Name Unknown Organization [facility] Address [address] [place] [address] Phone [phone] Care Team Providers Care Clinical Laboratory Aides Teacher Name Role Phone Charles Mayer DO Primary Care Provider Reason for Visit * Reason Onset Date Comments Home Monitoring Orders Only 05/10/2024 Encounter Details Date Type Department Care Team (Late st Contact Info) Description 05/10/2024 Home Monitoring Family Practice [facility] [address] [place] [address] Charles Mayer DO [address] [place] [address] Coronary artery disease involving [place] coronary artery of [place] heart without angina pectoris* Allergies Active Allergy Reactions Criticality Noted Date [...] Oral Tablet (Desyrel)Indicat ions:Coronary artery disease involving [place] coronary artery of [place] heart without angina pectoris,Stage 3a chronic kidney disease (HCC),Gastroesop hageal reflux disease without esophagitis,Oscar ntia (HCC) Take one-half tablet by mouth at bedtime as needed for insomnia 90 Tablet 3 5 Active Dexcom G7 Computer Scientist DeviceIndication s:Severe dementia associated with other underlying [...] 6 Tablet 04/22/2024 12:16 PM EST Active Morphine Sulfate ER 15 MG Oral Tablet Extended Release (MS Contin)Indicatio ns:Other chronic pain Take 1 Tablet by mouth in the morning and 1 Tablet before bedtime. 60 Tablet 05/05/2024 3:53 PM EST 5 Active Hospital, Clinic, or Other Facility Administered Medication Ordered Dose Route Frequency Start Date End Date Status Vitamin B-12 (Cyanocobalamin) inj 1,000 mcgIndications:B12 deficiency 1000 mcg IM [id number] 01/28/2024 12/29/2024 Active documented as of this [...] anemia 04/24/2017 Coronary artery disease invo lving [place] heart without angina pectoris 04/18/2016 Incomplete tear of right rotator cuff 04/15/2016 Overview (04/15/2016): 04/23 Dr Eduardo guerrero. Anxiety 09/28/2014 Diverticulitis of colon 09/16/2014 Intestinal postoperative nonabsorption 1 CALLAHAN RESEARCH OTHER*[id number] 09/14/2009 MEDICATION USE AGREEMENT 05/19/2008 Overview (05/19/2008): [...] Tobacco use disorder 09/18/2009 011 Bariatric Proteinuria Research*[id number] 09/14/2009 12/27/2009 Organic sleep disorder 06/22/200910/10 Morbid [...] No 05/10/2024 Does the household have a [facility] source of income? 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 The case management director has also provided the patient with instruction and education regarding the program. Current health to assist with initial device set-up. Delivery Method: Vendor supplied Patient understands that this monitoring should not be used as a replacement for emergency and/or urgent care. If patient experiences any urgent symptoms, they are aware to call their global manager for additional instructions. In emergency situations, they will either call 911 or report directly to the ED for further evaluation. documented in this encounter Plan of Treatment Upcoming Encounters Date Type Department Care Team (Late st Contact Info) Description 05/12/2024 10:00 AM EST Scheduled Telephone [facility] [place], [facility] [address] [place] [address] Coordinator, [place] [address] [place] [address] 05/20/2024 1:40 PM EST Office Visit Family [facility] [address] [place] [address] Charles Mayer DO [address] [place] [address] 05/20/2024 3:40 PM EST Office Visit Neurology [address] [place] [phone] Naresh Hampton, [address] [facility] [place] [phone] 05/21/2024 3:00 PM EST Office Visit Urology Reji Haines [address] [place] [address] Ruth Anguiano PA-C [address] [place] [address] [address] 05/25/2024 8:30 AM EST Home Visit [facility], [facility] [address] [place] [address] Meghna Ramon, [place] [address] [place] [address] 06/03/2024 9:00 AM EST Home Visit [facility] at [facility] [address] [place] [address] Gregg Rosen PA-C [address] [place] [address] 10/28/2024 11:40 AM EDT Office Visit [facility] [address] [place] [address] Charles Mayer DO [address] [place] [address] Scheduled Procedures Name Priority Associated Diagnoses Date/Ti [...] Additional history exists CKD PHOS USE SMARTSET 19026 11/24/202411/06, 06/11/2023, 12/24/2019 Depression Screening 01/21/2025 01/22/2024 CKD HGB USE SMARTSET 15035 04/24/202504/24, 04/24/2024, 11/25/2023, Additional history exists Diabetes [...] Visit Diagnoses Diagnosis Coronary artery disease involving [place] coronary artery of [place] heart without angina pectoris- Primary documented in this encounter Advance Directives Documents on File Type Date Recorded 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 Care Teams Clinical Laboratory Aides Teacher Relationship Specialty Start Date End Date Charles Mayer DO [address] [place] [address] PCP - General Family Medicine 05/26/23 documented as of this encounter
--- OUTSIDE RECORDS SUMMARY | 2024-05-12 06:46 | External Medical Summary | Summary of Care ---
Author Name Unknown Organization [facility] Address [address] [place] [address] Phone [phone] Care Team Providers Care Diamond Driller Name Role Phone Charles Mayer DO Primary Care Provider Encounter Details Date Type Department Care Team (Late st Contact Info) Description 04/28/2024 Orders Only PATIENT PORTAL DO NOT DELETE THIS DEPT USED BY [place] [id number] Allergies Active Allergy Reactions Criticality Noted Date [...] as of this encounter (statuses as of 04/28/2024) Medications Pantoprazole Sodium 40 MG Oral Tablet [...] 90 Tablet 3 5 Active Dexcom G7 Metal Sorter DeviceIndication s:Severe dementia associated with other underlying [...] inj 1,000 mcgIndications:B12 deficiency 1000 mcg IM [id number] 01/28/2024 12/29/2024 Active documented as of this encounter (statuses as of 04/28/2024) Active Problems Problem Noted Date Diagnosed Date [...] 09/16/2014 Intestinal postoperative nonabsorption 1 CALLAHAN RESEARCH OTHER*[id number] 09/14/2009 MEDICATION USE AGREEMENT 05/19/2008 Overview (05/19/2008): See kim GERD (gastroesophageal reflux disease) Gout S/P gastric bypass S/P spinal fusion documented as of this encounter (statuses as of 04/28/2024) Resolved Problems Problem Noted Date Diagnosed Date Resolved Date Kidney disease, chronic, sta ge III (GFR 30-59 ml/min) 11/16/2018 02/17/2020 Overview: Per CKD protocol Well adult exam 04/18/2016 09/24/2018 Overview (06/01/2018): ??Need eval hypoglycemia? S/p gastric bypass. 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 Not on file documented as of this encounter Plan of Treatment Upcoming Encounters Date Type Department Care Team (Late st Contact Info) Description 04/28/2024 8:45 AM EST Scheduled Telephone [facility] [address] [address] [facility], Nurse [facility] [address] [place] [address] 04/29/2024 11:00 AM EST [facility] Visit [facility] [address] [address] Gregg Rosen PA-C [address] [place] [address] 05/10/2024 8:30 AM EST Home Visit [facility], [facility] [address] [place] [address] Meghna Ramon, LU[place] [address] [place] [address] 05/20/2024 1:40 PM EST Office Visit [facility] [address] [place] [address] Charles Mayer, DO [address] [place] [address] 05/20/2024 3:40 PM EST Office Visit Neurology [address] [place] [phone] Naresh Hampton, DO [address] [facility] [address] [place] [address] 05/21/2024 3:00 PM EST Office Visit Urology Reji Haines [address] [place] [address] Ruth Anguiano PA-C [address] [place] [address] 06/03/2024 9:00 AM EST [facility] Visit [facility] [place], [facility] [address] [place] [address] Gregg Rosen PA-C [address] [place] [address] 10/28/2024 11:40 AM EDT Office Visit [facility] [address] [place] [address] Charles Mayer, DO [address] [address] Scheduled Procedures Name Priority Associated Diagnoses Date/Ti [...] Additional history exists CKD PHOS USE SMARTSET 83622 11/24/202411/06, 06/11/2023, 12/24/2019 Depression Screening 01/21/2025 01/22/2024 CKD HGB USE SMARTSET 55032 04/24/202504/24, 04/24/2024, 11/25/2023, Additional history exists Diabetes [...] Documents on File Type Date Recorded Patient Clinical Rn Manager Expl 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 Care Teams Diamond Driller Relationship Specialty Start Date End Date Charles Mayer DO [address] [place] [address] PCP - General Family Medicine 05/26/23 documented as of this encounter
--- OUTSIDE RECORDS SUMMARY | 2024-05-12 06:46 | External Medical Summary | Summary of Care ---
Author Name Unknown Organization [facility] Address [address] [place] [address] Phone [phone] Care Team Providers Care Pool Servicer Name Role Phone Charles Mayer DO Primary Care Provider Reason for Visit * Reason Onset Date Comments [facility]: Maintenance 04/28/2024 Encounter Details Date Type Department Care Team (Late st Contact Info) Description 04/28/2024 8:45 AM EST Scheduled Telephone [facility], [address] [place] [address] [facility], Nurse [address] [place] [address] Allergies Active Allergy Reactions Criticality Noted Date [...] Oral Tablet (Desyrel)Indicat ions:Coronary artery disease involving [place] coronary artery of [place] heart without angina pectoris,Stage 3a chronic kidney disease (HCC),Gastroesop hageal reflux disease without esophagitis,Oscar ntia (HCC) Take one-half tablet by mouth at bedtime as needed for insomnia 90 Tablet 3 5 Active Dexcom G7 Garage Attendant DeviceIndication s:Severe dementia associated with other underlying [...] inj 1,000 mcgIndications:B12 deficiency 1000 mcg IM [id number] 01/28/2024 12/29/2024 Active documented as of this [...] 09/16/2014 Intestinal postoperative nonabsorption 1 CALLAHAN RESEARCH OTHER*[id number] 09/14/2009 MEDICATION USE AGREEMENT 05/19/2008 Overview (05/19/2008): [...] gastric bypass. 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 He is eating/drinking well. No confusion, no fever/chills or other concerns today. Confirmed provider home visit for tomorrow. Reinforced to call [facility] with any questions/concerns. Disposition: Issue resolved. All appropriate follow up scheduled. Future Visits Scheduled: Future Appointments-next 60 days Date/Time Provider Specialty Dept Phone 04/28/2024 8:45 AM [facility], Nurse Miguelito Benedict [facility] [phone] 04/29/2024 11:00 AM Gregg Rosen PA-C [facility] [phone] 05/10/2024 8:30 AM Meghna Ramon RN [facility] [phone] 05/20/2024 1:40 PM (Arrive by 1:25 PM) Charles Mayer DO Family Medicine [phone] 05/20/2024 3:40 PM (Arrive by 3:25 PM) Naresh Hampton DO Neurology [phone] 05/21/2024 3:00 PM (Arrive by 2:45 PM) Ruth Anguiano PA-C Urology [phone] 06/03/2024 9:00 AM Gregg Rosen PA-C [facility] [phone] 10/28/2024 11:40 AM (Arrive by 11:25 AM) Charles Mayer DO Family Medicine [phone] Olena Meadows RN documented in this encounter Plan of Treatment Upcoming Encounters Date Type Department Care Team (Late st Contact Info) Description 04/29/2024 11:00 AM EST Home Visit [facility], [facility] [address] [place] [address] Gregg Rosen PA-C [address] [place] [address] 05/10/2024 8:30 AM EST Home Visit [facility], [facility] [address] [place] [address] Meghna Ramon, [place] [address] [place] [address] 05/20/2024 1:40 PM EST Office Visit Family Practice [facility] [address] [place] [address] Charles Mayer DO [address] [place] [address] 05/20/2024 3:40 PM EST Office Visit Neurology [address] [place] [address] Naresh Hampton, DO [address] [facility] [place] [id number] 05/21/2024 3:00 PM EST Office Visit UrologReji Hollingsworth [address] [place] [address] Ruth Anguiano PA-C [address] [place] [address] [address] 06/03/2024 9:00 AM EST Home Visit [facility], [facility] [address] [place] [address] Gregg Rosen PA-C [address] [place] [address] 10/28/2024 11:40 AM EDT Office Visit Family [facility] [address] [place] [address] Charles Mayer, [address] [place] [address] Scheduled Procedures Name Priority Associated Diagnoses Date/Ti [...] Additional history exists CKD PHOS USE SMARTSET 19135 11/24/202411/06, 06/11/2023, 12/24/2019 Depression Screening 01/21/2025 01/22/2024 CKD HGB USE SMARTSET 68453 04/24/202504/24, 04/24/2024, 11/25/2023, Additional history exists Diabetes [...] Documents on File Type Date Recorded Patient Stock Sorter Expl 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 Care Teams Pool Servicer Relationship Specialty Start Date End Date Charles Mayer DO [address] [place] [address] PCP - General Family Medicine 05/26/23 documented as of this encounter
--- OUTSIDE RECORDS SUMMARY | 2024-05-12 06:47 | External Medical Summary | Summary of Care ---
Author Name Unknown Organization [facility] Address [address] [place] [address] Phone [phone] Care Team Providers Care Milk Vendor Name Role Phone Charles Mayer DO Primary Care Provider Reason for Visit * Reason Onset Date Comments [facility]: Maintenance 04/26/2024 Encounter Details Date Type Department Care Team (Late st Contact Info) Description 04/26/2024 11:00 AM EST Scheduled Telephone [facility], [address] [place] [address] [facility], Nurse [address] [place] [address] Allergies Active Allergy Reactions Criticality Noted Date [...] as of this encounter (statuses as of 04/26/2024) Medications Pantoprazole Sodium 40 MG Oral Tablet [...] mg Oral Daily(AM),Takes at bedtime, Reported on 04/14/2024 Loratadine 10 MG Oral Capsule Take 1 [...] hours as needed for Anxiety. 1 Tablet 10/09/202 4 Active Melatonin 10 MG Oral Tablet [...] Tablet before bedtime. 60 Tablet 4 Active oxyCODONE-Acetam inophen 5-325 MG Oral [...] Tablet 03/23/2024 3:15 PM EST 4 Active levoFLOXacin 750 MG [...] Oral Tablet (Desyrel)Indicat ions:Coronary artery disease involving [place] coronary artery of [place] heart without angina pectoris,Stage 3a chronic kidney disease (HCC),Gastroesop hageal reflux disease without esophagitis,Oscar ntia (HCC) Take one-half tablet by mouth at bedtime as needed for insomnia 90 Tablet 3 5 Active Dexcom G7 Automatic Presser DeviceIndication s:Severe dementia associated with other underlying [...] Tablet 04/22/2024 12:16 PM EST 5 Active Hospital, Clinic, or Other Facility Administered Medication Ordered Dose Route Frequency Start Date End Date Status Vitamin B-12 (Cyanocobalamin) inj 1,000 mcgIndications:B12 deficiency 1000 mcg IM [id number] 01/28/2024 12/29/2024 Active documented as of this encounter (statuses as of 04/26/2024) Active Problems Problem Noted Date Diagnosed Date [...] anemia 04/24/2017 Coronary artery disease invo lving [place] heart without angina pectoris 04/18/2016 Incomplete tear of right rotator cuff 04/15/2016 Overview (04/15/2016): 04/23 Dr Eduardo guerrero. Anxiety 09/28/2014 Diverticulitis of colon 09/16/2014 Intestinal postoperative nonabsorption 1 CALLAHAN RESEARCH OTHER*[id number] 09/14/2009 MEDICATION USE AGREEMENT 05/19/2008 Overview (05/19/2008): See kim GERD (gastroesophageal reflux disease) Gout S/P gastric bypass S/P spinal fusion documented as of this encounter (statuses as of 04/26/2024) Resolved Problems Problem Noted Date Diagnosed Date [...] Tobacco use disorder 09/18/2009 011 Bariatric Proteinuria Research*[id number] 09/14/2009 12/27/2009 Organic sleep disorder 06/22/200910/10 Morbid [...] as of this encounter (statuses as of 04/26/2024) Immunizations Name Administration Dates Next Due COVID-19 [...] 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 Not on file Not on file documented as of this encounter Miscellaneous Notes * Telephone Encounter - Olena Meadows RN - 04/26/2024 8:56 AM EST [facility] Telephonic Nurse Follow-Up Call [facility] Subprogram: No data was found Follow Up Call Type: Routine follow up call / Status Check Acute issue requiring follow-up call: Other: ED follow up for constipation Objective: 04/24/2024 7:25 PM 04/24/2024 7:00 PM 04/24/2024 6:00 PM 04/24/2024 4:00 PM 04/24/2024 2:31 PM VITALS ACROSS ENCOUNTERS BP 111/74 110/75 111/66 100/74 107/73 Pulse 70 70 70 67 88 Remote Patient Monitoring: NONE Oxygen Needs: NO supplemental oxygen needs identified DME Needs: NO DME needs identified Medications: New medication(s) added: Levaquin 750mg, 1 tab po daily x 6 days starting 04/22/24. Subjective: Condition Status: bowels are back to baseline. Moving daily. Pt with decrease in urine output Current Concerns: Pt on for follow up call due to being in ED 04/22/24 for constipation. Pt's reports that patient's bowels are moving. He has had several large Bms since ED visit. Her concern today is that there is not any urine in the bag from overnight. There is urine in the tubing. Urine is light in color and appears, "normal" per . Pt is sleeping and not in any distress. Bladder is not distended/hard. She thinks pt is drinking enough, but hasn't really been keeping track and unsure how much fluid he has had in. Denies fever/chills, no changes in mental status, taking and tolerating the antibiotic. checked to make sure no kinks in the tubing. She called home health agency and they are to call her back. Asking if pt should go back to ED or urology clinic. Recommended that when pt gets awake this morning, to push oral fluids. As long as pt is not having any discomfort around bladder, start with increasing fluids. Will call later this morning to check status of urinary output. Disposition: Routed to [facility] and/or [facility] Care Team for further advice Future Visits Scheduled: Future Appointments-next 60 days Date/Time Provider Specialty Dept Phone 04/26/2024 11:00 AM [facility], Nurse Miguelito [facility] [phone] 04/29/2024 11:00 AM Gregg Rosen PA-C [facility] [phone] 05/10/2024 8:30 AM Meghna Ramon, RN [facility] [phone] 05/20/2024 1:40 PM (Arrive by 1:25 PM) Charles Mayer DO Family Medicine [phone] 05/20/2024 3:40 PM (Arrive by 3:25 PM) Naresh Hampton DO Neurology [phone] 05/21/2024 3:00 PM (Arrive by 2:45 PM) Ruth Anguiano PA-C Urology [phone] 06/03/2024 9:00 AM Gregg Rosen PA-C [facility] [phone] 10/28/2024 11:40 AM (Arrive by 11:25 AM) Charles Mayer DO Family Medicine [phone] Olena Meadows RN documented in this encounter Plan of Treatment Upcoming Encounters Date Type Department Care Team (Late st Contact Info) Description 04/29/2024 11:00 AM EST [facility] Visit [facility] [place], [facility] [address] [place] [address] Gregg Rosen PA-C [address] [place] [address] 05/10/2024 8:30 AM EST Home Visit [facility], [facility] [address] [place] [address] Meghna Ramon, RN [address] [place] [address] 05/20/2024 1:40 PM EST Office Visit Family Practice [facility] [address] [place] [address] Charles Mayer, [address] [place] [address] 05/20/2024 3:40 PM EST Office Visit Neurology [address] [place] [address] Naresh Hampton, DO [address] [place], [place] [id number] 05/21/2024 3:00 PM EST Office Visit Urology Reji Haines [address] [place] [address] Ruth Anguiano PA-C [address] [place] [address] 06/03/2024 9:00 AM EST Home Visit [facility] [address] [place] [address] Gregg Rosen PA-C [address] [place] [address] 10/28/2024 11:40 AM EDT Office Visit Family Practice [facility] [address] [place] [address] Charles Mayer, [address] [place] [address] Scheduled Procedures Name Priority Associated Diagnoses Date/Ti [...] Additional history exists CKD PHOS USE SMARTSET 43780 11/24/202411/06, 06/11/2023, 12/24/2019 Depression Screening 01/21/2025 01/22/2024 CKD HGB USE SMARTSET 78894 04/24/202504/24, 04/24/2024, 11/25/2023, Additional history exists Diabetes [...] Documents on File Type Date Recorded Patient Interventional Radiologist Expl 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 Care Teams Milk Vendor Relationship Specialty Start Date End Date Charles Mayer DO [address] [place] [address] PCP - General Family Medicine 05/26/23 documented as of this encounter
--- OUTSIDE RECORDS SUMMARY | 2024-05-12 06:47 | External Medical Summary | Summary of Care ---
Author Name Unknown Organization [facility] Address [address] [place] [address] Phone [phone] Care Team Providers Care Pipe Fitter Welding Name Role Phone Andrea Mayer DO Primary Care Provider Reason for Visit * Reason Comments Medication Refill Encounter Details Date Type Department Care Team (Late st Contact Info) Description 04/25/2024 Refill Family Practice [facility] [address] [place] [address] Andrea Mayer DO [address] [place] [address] Other chronic pain; Stage 3a chronic kidney disease (HCC) Allergies Active Allergy Reactions Criticality Noted [...] Oral Tablet (Desyrel)Indica tions:Coronary artery disease involving [place] coronary artery of [place] heart without angina pectoris,Stage 3a chronic kidney disease (HCC),Gastroeso phageal reflux disease without esophagitis,Dem entia (HCC) Take one-half tablet by mouth at bedtime as needed for insomnia 90 Tablet 3 5 Active Dexcom G7 Tube Blower DeviceIndicatio ns:Severe dementia associated with other underlying [...] Tablet before bedtime. 60 Tablet 5 Active Copper Caps 2 MG Oral Capsule (copper gluconate)Indic ations:Copper deficiency Take 8 mg of elemental copper each day orally for a week, 6 mg for the second week, 4 mg for the third week, and 2 mg thereafter 180 Capsule 3 4 025 Discontin ued(Medic ation List Clean Up) Folic Acid 1 MG Oral Tablet Take 1 Tablet by mouth in the morning. 4 025 Discontin ued(Medic ation List Clean Up) Magnesium 400 MG Oral Tablet Take by mouth. 025 Discontin ued(Medic ation List Clean Up) Morphine Sulfate ER 15 MG Oral Tablet Extended Release (MS Contin)Indicati ons:Other chronic pain Take 1 Tablet by mouth in the morning and 1 Tablet before bedtime. 60 Tablet 03/23/2024 3:15 PM EST 4 025 Discontin ued(Refil l) Hospital, Clinic, or Other Facility Administered Medication Ordered Dose Route Frequency Start Date End Date Status Vitamin B-12 (Cyanocobalamin) inj 1,000 mcgIndications:B12 deficiency 1000 mcg IM [id number] 01/28/2024 12/29/2024 Active documented as of this [...] anemia 04/24/2017 Coronary artery disease invo lving [place] heart without angina pectoris 04/18/2016 Incomplete tear of right rotator cuff 04/15/2016 Overview (04/15/2016): 04/23 Dr Eduardo guerrero. 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 Authorizing Provider: ANDREA MAYER * Telephone Encounter - Stefan De [facility] - 04/26/2024 1:31 PM EST Pending Prescriptions: Disp Refills Morphine Sulfate ER 15 MG Oral Tablet Exte*60 Tab*0 Sig: Take 1 Tablet by mouth in the morning and 1 Tablet before bedtime. * Telephone Encounter - Stefan De [facility] - 04/26/2024 1:31 PM EST I have reviewed the patients controlled substance dispensing history in the Prescription Drug Monitoring Program in compliance with the [facility] regulations before prescribing a controlled substance. PDMP checked on 04/26/2024. Pending Prescriptions: Disp Refills Morphine Sulfate ER 15 MG Oral Tablet Ext*60 Tab*0 Sig: Take 1 Tablet by mouth in the morning and 1 Tablet before bedtime. Last Visit: 04/14/2024 (in office), Visit date not found (telemedicine) Next Visit: 05/20/2024 Date medication was last filled: 03/23 Date medication is due for refill: 04/21 Pharmacy: [facility] Is this request for a controlled substance? Yes and Urine Drug Screen Not completed Toxicology results: No results found. However, due to the size of the patient record, not all encounters were searched.Please check Results Review for a complete set of results. Please approve if appropriate. ThanksStefan PharmD Clinical Pharmacist [facility] ([facility]) [phone] 04/26/2024,1:31 PM documented in this encounter Plan of Treatment Upcoming Encounters Date Type Department Care Team (Late st Contact Info) Description 04/28/2024 8:45 AM EST Scheduled Telephone [facility], [facility] [address] [address] [facility], Nurse [facility] [address] [address] 04/29/2024 11:00 AM EST Home Visit [facility], [facility] [address] [address] Gregg Rosen PA-C [address] [place] [address] 05/10/2024 8:30 AM EST Home Visit [facility], [facility] [address] [address] Meghna Ramon, [place] [address] [address] 05/20/2024 1:40 PM EST Office Visit [facility] [address] [place] [address] Andrea Mayer, [address] [place] [address] 05/20/2024 3:40 PM EST Office Visit Neurology [address] [place] [address] Naresh Hampton, DO [address] [place] [address] 05/21/2024 3:00 PM EST Office Visit Urology Reji Haines [address] [facility] [address] [place] [address] [address] Ruth Anguiano PA-C [address] [place] [address] 06/03/2024 9:00 AM EST Home Visit [facility] [address] [place] [address] Gregg Rosen PA-C [address] [place] [address] 10/28/2024 11:40 AM EDT Office Visit Family Practice [facility] [address] [place] [address] Andrea Mayer, [address] [place] [address] Scheduled Orders Name Type Priority Associated Diagnoses Orde r Schedule ALBUMIN / CREATININE RATIO, URINE Lab Routine Stage 3a chronic kidney disease (HCC) Expected: 04/26/2024, Expires: 04/26/2025 Scheduled Procedures Name Priority Associated Diagnoses Date/Ti [...] Additional history exists CKD PHOS USE SMARTSET 01465 11/24/202411/06, 06/11/2023, 12/24/2019 Depression Screening 01/21/2025 01/22/2024 CKD HGB USE SMARTSET 06247 04/24/202504/24, 04/24/2024, 11/25/2023, Additional history exists Diabetes [...] encounter Visit Diagnoses Diagnosis Other chronic pain Stage 3a chronic kidney disease (HCC) documented in this encounter Advance Directives Documents on File Type Date Recorded Patient Automatic Beading Lathe Operator Expl 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 Care Teams Pipe Fitter Welding Relationship Specialty Start Date End Date Andrea Mayer DO [address] [place] [address] PCP - General Family Medicine 05/26/23 documented as of this encounter
--- OUTSIDE RECORDS SUMMARY | 2024-05-12 06:47 | External Medical Summary | Summary of Care ---
Author Name Unknown Organization [facility] Address [address] [place] [address] Phone [phone] Care Team Providers Care Language Assistant Name Role Phone Marsha Mayerr Iram Primary Care Provider Encounter Details Date Type Department Care Team (Late st Contact Info) Description 04/26/2024 Population Health External Data Unspecified Department Allergies [...] Oral Tablet (Desyrel)Indicat ions:Coronary artery disease involving [place] coronary artery of [place] heart without angina pectoris,Stage 3a chronic kidney disease (HCC),Gastroesop hageal reflux disease without esophagitis,Oscar ntia (HCC) Take one-half tablet by mouth at bedtime as needed for insomnia 90 Tablet 3 5 Active Dexcom G7 Health Aide DeviceIndication s:Severe dementia associated with other underlying [...] inj 1,000 mcgIndications:B12 deficiency 1000 mcg IM [id number] 01/28/2024 12/29/2024 Active documented as of this [...] anemia 04/24/2017 Coronary artery disease invo lving [place] heart without angina pectoris 04/18/2016 Incomplete tear of right rotator cuff 04/15/2016 Overview (04/15/2016): 04/23 Dr Eduardo guerrero. 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 Not on file Not on file documented as of this encounter Plan of Treatment Upcoming Encounters Date Type Department Care Team (Late st Contact Info) Description 04/26/2024 11:00 AM EST [facility] [address] [address] [facility], Nurse [place] [address] [place] [address] 04/29/2024 11:00 AM EST [facility] Visit [facility] [address] [address] Gregg Rosen PA-C [address] [place] [address] 05/10/2024 8:30 AM EST [facility] Visit [facility], [facility] [address] [place] [address] Meghna Ramon, [place] [address] [place] [address] 05/20/2024 1:40 PM EST Office Visit [facility] [address] [place] [address] Charles Mayer, [address] [place] [address] 05/20/2024 3:40 PM EST Office Visit Neurology [address] [place] [address] Naresh Hampton, DO [address] [facility] [place] [id number] 05/21/2024 3:00 PM EST Office Visit UrologReji Hollingsworth [address] [place] [address] Ruth Anguiano PA-C [address] [address] 06/03/2024 9:00 AM EST Home Visit [facility], [facility] [address] [place] [address] Gregg Rosen PA-C [address] [place] [address] 10/28/2024 11:40 AM EDT Office Visit [facility] [address] [place] [address] Charles Mayer, [address] [place] [address] Scheduled Procedures Name Priority Associated Diagnoses Date/Ti [...] Additional history exists CKD PHOS USE SMARTSET 06482 11/24/202411/06, 06/11/2023, 12/24/2019 Depression Screening 01/21/2025 01/22/2024 CKD HGB USE SMARTSET 61100 04/24/202504/24, 04/24/2024, 11/25/2023, Additional history exists Diabetes [...] Documents on File Type Date Recorded Patient Smooth Plater Expl 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 Care Teams Language Assistant Relationship Specialty Start Date End Date Charles Mayer DO [address] [place] [address] PCP - General Family Medicine 05/26/23 documented as of this encounter
--- OUTSIDE RECORDS SUMMARY | 2024-05-12 06:47 | External Medical Summary | Summary of Care ---
Author Name Unknown Organization [facility] Address [address] [place] [address] Phone [phone] Care Team Providers Care Product Communications Manager Name Role Phone Charles Mayer DO Primary Care Provider Reason for Visit * Reason Onset Date Comments [facility]: Maintenance 04/26/2024 Encounter Details Date Type Department Care Team (Late st Contact Info) Description 04/26/2024 11:00 AM EST Scheduled Telephone [facility], [address] [place] [address] [facility], Nurse [address] [place] [address] Allergies Active Allergy Reactions Criticality Noted Date [...] Oral Tablet (Desyrel)Indicat ions:Coronary artery disease involving [place] coronary artery of [place] heart without angina pectoris,Stage 3a chronic kidney disease (HCC),Gastroesop hageal reflux disease without esophagitis,Oscar ntia (HCC) Take one-half tablet by mouth at bedtime as needed for insomnia 90 Tablet 3 5 Active Dexcom G7 Paraffiner DeviceIndication s:Severe dementia associated with other underlying [...] inj 1,000 mcgIndications:B12 deficiency 1000 mcg IM [id number] 01/28/2024 12/29/2024 Active documented as of this [...] anemia 04/24/2017 Coronary artery disease invo lving gulkana heart without angina pectoris 04/18/2016 Incomplete tear of right rotator cuff 04/15/2016 Overview (04/15/2016): 04/23 Dr Eduardo guerrero. 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 Anxious that patient has had only 50 ml of urine output since 930. Pt has had18 oz of fluid in. Pt denies any discomfort until pressed on abdomen around umbilicus and thenhe had some tenderness. Pt's asking if she should take him somewhere like ED. Advised that we can schedule a nurse visit for assessment today after speaking with RNCM. Acute home visit scheduled. * Telephone Encounter - Olena Meadows RN - 04/26/2024 8:56 AM EST [facility] Telephonic Nurse Follow-Up Call [facility] Subprogram: No data was found Follow [...] status of urinary output. Disposition: Routed to [facility] and/or [facility] Care Team for further advice Future Visits Scheduled: Future Appointments-next 60 days Date/Time Provider Specialty Dept Phone 04/26/2024 11:00 AM [facility], Nurse Miguelito Benedict [facility] [phone] 04/29/2024 11:00 AM Gregg Rosen PA-C [facility] [phone] 05/10/2024 8:30 AM Meghna Ramon, LUIS [facility] [phone] 05/20/2024 1:40 PM (Arrive by 1:25 PM) Charles Mayer DO Family Medicine [phone] 05/20/2024 3:40 PM (Arrive by 3:25 PM) Naresh Hampton DO Neurology [phone] 05/21/2024 3:00 PM (Arrive by 2:45 PM) Ruth Anguiano PA-C Urology [phone] 06/03/2024 9:00 AM Gregg Rosen PA-C [facility] [phone] 10/28/2024 11:40 AM (Arrive by 11:25 AM) Charles Mayer DO Family Medicine [phone] Olena Meadows RN documented in this encounter Plan of Treatment Upcoming Encounters Date Type Department Care Team (Late st Contact Info) Description 04/26/2024 2:30 PM EST Home Visit [facility], [facility] [address] [place] [address] Meghna RamonLUIS [address] [place] [address] 04/27/2024 8:45 AM EST Scheduled Telephone [facility], [facility] [address] [place], [place] [address] [facility], Nurse [facility] [address] [place] [address] 04/28/2024 8:45 AM EST Scheduled Telephone [facility], [facility] [address] [place] [address] [facility], Nurse [facility] [address] [place] [address] 04/29/2024 11:00 AM EST Home Visit [facility], [facility] [address] [place] [address] Gregg Rosen PA-C [address] [place] [address] 05/10/2024 8:30 AM EST Home Visit [facility], [facility] [address] [place] [address] Meghna Ramon RN [address] [place] [address] 05/20/2024 1:40 PM EST Office Visit Family Practice [facility] [address] [place] [address] Charles Mayer DO [address] [place] [address] 05/20/2024 3:40 PM EST Office Visit Neurology [address] [place] [address] Naresh Hampton, DO [address] [place] [address] 05/21/2024 3:00 PM EST Office Visit Urology Reji Haines [address] [place] [address] Ruth Anguiano PA-C [address] [place] [address] 06/03/2024 9:00 AM EST [facility] [address] [place] [address] Gregg Rosen PA-C [address] [place] [address] 10/28/2024 11:40 AM EDT Office Visit Family [facility] [address] [place] [address] Charles Mayer DO [address] [facility] [place] [address] Scheduled Procedures Name Priority Associated Diagnoses Date/Ti [...] Albumin/Creatinine Ratio 06/11/2024 06/12/2023, 060 06/2014 GFR 10/22/2024 04/24/2024, 01/06, 11/25/2023, Additional history exists CKD PHOS USE SMARTSET 27471 11/24/2024 08/2 , 06/11/2023, 12/24/2019 Depression Screening 01/21/2025 01/22/2024 CKD HGB USE SMARTSET 21779 04/24/202504/24, 04/24/2024, 11/25/2023, Additional history exists Diabetes [...] Documents on File Type Date Recorded Patient Cae Engineer 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 Care Teams Product Communications Manager Relationship Specialty Start Date End Date Charles Mayer DO [address] [place] [address] PCP - General Family Medicine 05/26/23 documented as of this encounter
--- OUTSIDE RECORDS SUMMARY | 2024-05-12 06:47 | External Medical Summary | Summary of Care ---
Author Name Unknown Organization [facility] Address [address] [place] [address] Phone [phone] Care Team Providers Care Last Turner Name Role Phone Charles Mayershawn Primary Care Provider Encounter Details Date Type Department Care Team (Late st Contact Info) Description 04/26/2024 2:30 PM EST [facility] Visit [facility], [facility] 132 [facility] [place] [address] Meghna Ramon, LUIS 132 [facility] [place] [address] Allergies Active Allergy Reactions Criticality Noted Date [...] Oral Tablet (Desyrel)Indica tions:Coronary artery disease involving tolowa dee-ni' coronary artery of tolowa dee-ni' heart without angina pectoris,Stage 3a chronic kidney disease (HCC),Gastroeso phageal reflux disease without esophagitis,Dem entia (HCC) Take one-half tablet by mouth at bedtime as needed for insomnia 90 Tablet 3 5 Active Dexcom G7 Sound Printer DeviceIndicatio ns:Severe dementia associated with other underlying [...] Tablet 04/22/2024 12:16 PM EST 5 Active Copper Caps 2 MG Oral [...] inj 1,000 mcgIndications:B12 deficiency 1000 mcg IM [id number] 01/28/2024 12/29/2024 Active documented as of this [...] 09/16/2014 Intestinal postoperative nonabsorption 1 CALLAHAN RESEARCH OTHER*[id number] 09/14/2009 MEDICATION USE AGREEMENT 05/19/2008 Overview (05/19/2008): [...] Tobacco use disorder 09/18/2009 011 Bariatric Proteinuria Research*[id number] 09/14/2009 12/27/2009 Organic sleep disorder 06/22/200910/10 Morbid [...] 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 Not on file Not on file documented as of this encounter Last Filed Vital Signs Vital Sign Reading Time Taken Comments Blood Pressure 104/70 04/26/2024 1:35 PM EST Pulse 80 04/26/2024 1:35 PM EST Temperature 35.7 C (96.3 F) 04/26/2024 1:35 PM ES T Respiratory Rate 18 04/26/2024 1:35 PM EST Oxygen Saturation 95% 04/26/2024 1:35 PM EST Inhaled Oxygen Concentration - - Weight - - Height - - Body Mass Index - - documented in this encounter Progress Notes * Meghna Ramon, LUIS - 04/26/2024 1:26 PM EST Current Concerns: Patient seen for acute visit- called in to report parra catheter was not draining since this am. Upon arrival- patient laying in be- parra intact draining light chandan urine- pushing fluids. Approximately- 600ml in bag. No abdominal distention noted- abdomen flat. Denies discomfort. Currently being treated for UTI- has two days left per . Bottle out medication review- Epic reflects current medication regimen. Patient alert and talkative. and patient very pleasant. Patient alert and oriented x 2. VS wnl Lungs clear bilaterally Denies sob No LE edema noted Denies pain Appetite good Taking fluids well. Scheduled for enrollment visit- Gregg Rosen PA-C 04/29/24. Discussed [facility] with and patient. Magnet provided with [facility]#. Encouraged to call with medical concerns. Physical Exam: Physical Exam Constitutional: Appearance: Normal appearance. Cardiovascular: Rate and Rhythm: Normal rate and regular rhythm. Pulses: Normal pulses. Pulmonary: Effort: Pulmonary effort is normal. Breath sounds: Normal breath sounds. Abdominal: General: Bowel sounds are normal. Palpations: Abdomen is soft. Musculoskeletal: General: Normal range of motion. Skin: General: Skin is warm and dry. Capillary Refill: Capillary refill takes 2 to 3 seconds. Neurological: General: No focal deficit present. Mental Status: He is alert and oriented to person, place, and time. Psychiatric: Mood and Affect: Mood normal. Behavior: Behavior normal. Review of Systems: Review of Systems Constitutional: Negative. Respiratory: Negative. Cardiovascular: Negative. Gastrointestinal: Negative. Genitourinary: Negative. Parra catheter intact. Maintained by urology. Musculoskeletal: Positive for gait problem. Skin: Negative. Hematological: Negative. Psychiatric/Behavioral: Negative. Care Plan Goal Progress: Orders Placed: No orders of the defined types were placed in this encounter. Medications Given: Care Gaps: Care Gaps Care gaps closed this contact: Education (04/26/241703) Type of education: Clinical/disease (04/26/241703) documented in this encounter Plan of Treatment Upcoming Encounters Date Type Department Care Team (Late st Contact Info) Description 04/27/2024 8:45 AM EST Scheduled Telephone [facility], [facility] [address] [place] [address] [facility], Nurse [facility] [address] [place] [address] 04/28/2024 8:45 AM EST Scheduled Telephone [facility], [facility] [address] [place] [address] [facility], Nurse [facility] [address] [place] [address] 04/29/2024 11:00 AM EST Home Visit [facility], [facility] [address] [place] [address] Gregg Rosen PA-C [address] [place] [address] 05/10/2024 8:30 AM EST Home Visit [facility], [facility] [address] [place] [address] Meghna Ramon RN [address] [place] [address] 05/20/2024 1:40 PM EST Office Visit Family [facility] [address] [place] [address] Charles Mayer, [address] [place] [address] 05/20/2024 3:40 PM EST Office Visit Neurology [address] [place] [address] Naresh Hampton, DO [address] [place] [address] 05/21/2024 3:00 PM EST Office Visit Urology Reji Haines [address] [facility] [address] [place] [address] Ruth Anguiano PA-C [address] [place] [address] 06/03/2024 9:00 AM EST Home Visit [facility] [address] [place] [address] Gregg Rosen PA-C [address] [place] [address] 10/28/2024 11:40 AM EDT Office Visit Family Practice [facility] [address] [place] [address] Charles Mayer, 132 [facility] [place] [address] Scheduled Procedures Name Priority Associated Diagnoses Date/Ti [...] Additional history exists CKD PHOS USE SMARTSET 15070 11/24/202411/06, 06/11/2023, 12/24/2019 Depression Screening 01/21/2025 01/22/2024 CKD HGB USE SMARTSET 06393 04/24/202504/24, 04/24/2024, 11/25/2023, Additional history exists Diabetes [...] Documents on File Type Date Recorded Patient Slubber Hand Expl 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 Care Teams Last Turner Relationship Specialty Start Date End Date Charles Mayer DO [address] [place] [address] PCP - General Family Medicine 05/26/23 documented as of this encounter
--- OUTSIDE RECORDS SUMMARY | 2024-05-12 06:48 | External Medical Summary | Summary of Care ---
Author Name Unknown Organization [facility] Address [address] [place] [address] Phone [phone] Care Team Providers Care Supervisor Fusing Room Name Role Phone Charles Mayer DO Primary Care Provider Reason for Visit * Reason Onset Date Comments [facility]: Maintenance 04/25/2024 Encounter Details Date Type Department Care Team (Late st Contact Info) Description 04/25/2024 Telephone [facility], [facility] [address] [facility] [place] [address] Estela Sykes RN [address] [facility] [place] [address] [facility]: Maintenance Allergies Active Allergy [...] as of this encounter (statuses as of 04/25/2024) Medications Pantoprazole Sodium 40 MG Oral Tablet [...] Oral Tablet (Desyrel)Indicat ions:Coronary artery disease involving [place] coronary artery of [place] heart without angina pectoris,Stage 3a chronic kidney disease (HCC),Gastroesop hageal reflux disease without esophagitis,Oscar ntia (HCC) Take one-half tablet by mouth at bedtime as needed for insomnia 90 Tablet 3 5 Active Dexcom G7 Organ Pipe Voicer DeviceIndication s:Severe dementia associated with other underlying [...] inj 1,000 mcgIndications:B12 deficiency 1000 mcg IM [id number] 01/28/2024 12/29/2024 Active documented as of this encounter (statuses as of 04/25/2024) Active Problems Problem Noted Date Diagnosed Date [...] anemia 04/24/2017 Coronary artery disease invo lving [place] heart without angina pectoris 04/18/2016 Incomplete tear of right rotator cuff 04/15/2016 Overview (04/15/2016): 04/23 Dr Eduardo guerrero. Anxiety 09/28/2014 Diverticulitis of colon 09/16/2014 Intestinal postoperative nonabsorption 1 CALLAHAN RESEARCH OTHER*[id number] 09/14/2009 MEDICATION USE AGREEMENT 05/19/2008 Overview (05/19/2008): See kim GERD (gastroesophageal reflux disease) Gout S/P gastric bypass S/P spinal fusion documented as of this encounter (statuses as of 04/25/2024) Resolved Problems Problem Noted Date Diagnosed Date [...] Tobacco use disorder 09/18/2009 011 Bariatric Proteinuria Research*[id number] 09/14/2009 12/27/2009 Organic sleep disorder 06/22/200910/10 Morbid [...] as of this encounter (statuses as of 04/25/2024) Immunizations Name Administration Dates Next Due COVID-19 [...] 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 Not on file Not on file documented as of this encounter Miscellaneous Notes * Telephone Encounter - Estela Sykes RN - 04/25/2024 3:35 PM EST [facility] ED [employer] Notification Date: 04/25/2024 Time: 3:35 PM [facility] Subprogram: No data was found [facility] Episode Start Date: No linked episodes [facility] Enrollment Status: Currently Enrolled Action Taken on [employer] Alert and Outcome of ED Visit: Review ONLY: Phone Call Follow Up ONLY Scheduled Estela Sykes, RN documented in this encounter Plan of Treatment Upcoming Encounters Date Type Department Care Team (Late st Contact Info) Description 04/26/2024 11:00 AM EST Scheduled Telephone [facility], [facility] [address] [place] [address] [place], Nurse [facility] [address] [place] [address] 04/29/2024 11:00 AM EST Home Visit [facility], [facility] [address] [place] [address] Gregg Rosen PA-C [address] [place] [address] 05/10/2024 8:30 AM EST Home Visit [facility], [facility] [address] [place] [address] Meghna Ramon RN [address] [place] [address] 05/20/2024 1:40 PM EST Office Visit Family Practice [facility] [address] [place] [address] Charles Mayer DO [address] [place] [address] 05/20/2024 3:40 PM EST Office Visit Neurology [address] [place], [place] [address] Naresh Hampton, DO [address] [place] [address] 05/21/2024 3:00 PM EST Office Visit Urology Reji Haines [address] [place] [address] Ruth Anguiano PA-C [address] [place] [address] 06/03/2024 9:00 AM EST Home Visit [facility] [address] [place] [address] Gregg Rosen PA-C [address] [place] [address] 10/28/2024 11:40 AM EDT Office Visit Family Practice [facility] [address] [place] [address] Charles Mayer DO [address] [place] [address] Scheduled Procedures Name Priority Associated Diagnoses Date/Ti [...] Additional history exists CKD PHOS USE SMARTSET 18538 11/24/202411/06, 06/11/2023, 12/24/2019 Depression Screening 01/21/2025 01/22/2024 CKD HGB USE SMARTSET 07879 04/24/202504/24, 04/24/2024, 11/25/2023, Additional history exists Diabetes [...] Documents on File Type Date Recorded 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 Care Teams Supervisor Fusing Room Relationship Specialty Start Date End Date Charles Mayer DO [address] [place] [address] PCP - General Family Medicine 05/26/23 documented as of this encounter
--- OUTSIDE RECORDS SUMMARY | 2024-05-12 06:48 | External Medical Summary | Summary of Care ---
Author Name Unknown Organization [facility] Address [address] [place] [address] Phone [phone] Care Team Providers Care Monogram Operator Name Role Phone Charles Mayer DO Primary Care Provider Reason for Visit * Reason Onset Date Comments [facility]: Maintenance 04/25/2024 Encounter Details Date Type Department Care Team (Late st Contact Info) Description 04/25/2024 9:00 AM EST Scheduled Telephone [facility], [address] [place] [address] [facility], Nurse [address] [place] [address] Allergies Active Allergy Reactions Criticality Noted Date [...] Oral Tablet (Desyrel)Indicat ions:Coronary artery disease involving [place] coronary artery of [place]ary[place] heart without angina pectoris,Stage 3a chronic kidney disease (HCC),Gastroesop hageal reflux disease without esophagitis,Oscar ntia (HCC) Take one-half tablet by mouth at bedtime as needed for insomnia 90 Tablet 3 5 Active Dexcom G7 Oncology Coordinator DeviceIndication s:Severe dementia associated with other underlying [...] inj 1,000 mcgIndications:B12 deficiency 1000 mcg IM [id number] 01/28/2024 12/29/2024 Active documented as of this [...] anemia 04/24/2017 Coronary artery disease invo lving [place] heart without angina pectoris 04/18/2016 Incomplete tear of right rotator cuff 04/15/2016 Overview (04/15/2016): 04/23 Dr Eduardo guerrero. 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 Not on file Not on file documented as of this encounter Miscellaneous Notes * Telephone Encounter - Mitali Georges RN - 04/25/2024 9:57 AM EST SITUATION: ED f/u for constipation BACKGROUND: [facility] ED yesterday for abdominal pain CT abdomen indicated ''diffuse constipation with significant gas but otherwise no signs of acute obstruction by my interpretation'' D/c home Continues to take abx for UTI as prescribed by [facility] Was negative for UTI in ER yesterday Had BM at hospital last night ASSESSMENT: T/c to Had extremely large bm last evening when got home Reports feeling ''so much better'' TREATMENT/PLAN: Continue with Miralax tid, prune lax tabs at night May add Senna bid prn Has Palliative Care f/u apt 04/29 NOTE: Alisha states that their experience at [facility], ''was wonderful, they could not have been any nicer, we were so pleased and will be going there if needed in the future'' documented in this encounter Plan of Treatment Upcoming Encounters Date Type Department Care Team (Late st Contact Info) Description 04/29/2024 11:00 AM EST [facility] Visit [facility] [place], [facility] [address] [place] [address] Gregg Rosen PA-C [address] [place] [address] 05/10/2024 8:30 AM EST [facility] Visit [facility] [place], [facility] [address] [place] [address] Meghna Ramon, LUIS [address] [place] [address] 05/20/2024 1:40 PM EST Office Visit Family Practice [facility] [address] [place] [address] Charles Mayer DO [address] [place] [address] 05/20/2024 3:40 PM EST Office Visit Neurology [address] [place] [address] Naresh Hampton, [address] [place] [address] 05/21/2024 3:00 PM EST Office Visit Urology Reji Haines [address] [place] [address] Ruth Anguiano PA-C [address] [place] [address] 06/03/2024 9:00 AM EST Home Visit [facility] [address] [place] [address] Gregg Rosen PA-C [address] [place] [address] 10/28/2024 11:40 AM EDT Office Visit Family Practice [facility] [address] [place] [address] Charles Mayer DO [address] [place] [address] Scheduled Procedures Name Priority Associated Diagnoses Date/Ti [...] Ratio 06/11/2024 06/12/2023, 06/2014 GFR 10/22/2024 04/24/2024, 1006/2023, 11/25/2023, Additional history exists CKD PHOS USE SMARTSET 06222 11/24/202411/06, 06/11/2023, 12/24/2019 Depression Screening 01/21/2025 01/22/2024 CKD HGB USE SMARTSET 75111 04/24/202504/24, 04/24/2024, 11/25/2023, Additional history exists Diabetes [...] Documents on File Type Date Recorded Patient Manager Commercial Sales Expl 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 Care Teams Monogram Operator Relationship Specialty Start Date End Date Charles Mayer DO [address] [place] [address] PCP - General Family Medicine 05/26/23 documented as of this encounter
--- OUTSIDE RECORDS SUMMARY | 2024-05-12 06:48 | External Medical Summary ---
Author Name Unknown Address Unknown Organization [id number]:[facility] - [address] [facility] [place] [id number] Laboratory Report Ordering Provider Test Date Status MARIA ELENA TRUJILLO 04/24/2024 18:32:20 Final Observation Date Value Abnormality Reference (Units ) Status Color of Urine by Auto 04/24/2024 18:32:20 Yellow Light Yellow, Yellow, Dark Yellow Final Clarity, Urine 04/24/2024 18:32:20 Clear Clear Final Glucose [Mass/volume] in Urine by Automated test strip 04/24/2024 18:32:20 Negative Negative (mg/dL) Final Bilirubin.total [Presence] in Urine by Automated test strip 04/24/2024 18:32:20 Negative Negative Final Ketones [Mass/volume] in Urine by Automated test strip 04/24/2024 18:32:20 Negative Negative (mg/dL) Final Specific gravity, Urine 04/24/2024 18:32:20 1.057 Above high normal 1.003-1.030 Final Hemoglobin [Presence] in Urine by Automated test strip 04/24/2024 18:32:20 Large Abnormal Negative Final pH, Urine 04/24/2024 18:32:20 6.5 5.0-7.5 (Units) Final Protein [Mass/volume] in Urine by Automated test strip 04/24/2024 18:32:20 30 Abnormal Negative (mg/dL) Final Urobilinogen [Mass/volume] in Urine by Automated test strip 04/24/2024 18:32:20 1.0 0.2, 1.0 (mg/dL) Final Nitrite [Presence] in Urine by Automated test strip 04/24/2024 18:32:20 Negative Negative Final Leukocyte esterase [Presence] in Urine by Automated test strip 04/24/2024 18:32:20 Small Abnormal Negative Final RBC, Urine 04/24/2024 18:32:20 50+ Abnormal 0-2 (/HPF) Final WBC, Urine 04/24/2024 18:32:20 0-2 0-2 (/HPF) Final Bacteria [#/area] in Urine sediment by Microscopy high power field 04/24/2024 18:32:20 26-50 Abnormal 0-25 (/HPF) Final CULTURE, URINE - [facility] 04/24/2024 18:32:20 Final Quantitative urine culture t o be performed Performing Location LAB[facility]ATORY [facility] - [address] [place] [phone]
--- OUTSIDE RECORDS SUMMARY | 2024-05-12 06:48 | External Medical Summary | Summary of Care ---
Author Name Unknown Organization [facility] Address [address] [place] [address] Phone [phone] Care Team Providers Care Barrel Maker Name Role Phone Charles Mayer DO Primary Care Provider Reason for Visit * Reason Comments Abdominal Pain RLQ, decreased urina ry output with catether * Auth/Cert Specialty Diagnoses / Procedures Referred By Heather t Referred To Contact [address] [address] Phone: tel:[phone] [facility] ([facility]) [address] [place] [address] Phone: tel: fax: Referral ID Status Reason Start Date Expiration Date Visits Re quested Visits Authorized [id number] Encounter Details Date Type Department Care Team (Late st Contact Info) Description 04/24/2024 2:57 PM EST - 04/24/2024 7:40 PM EST Emergency [facility] ([facility]) [address] [place], [place] [id number] Dipesh Chavira DO [address] [place] [address] [phone] Constipation, unspecified constipation type (Primary Dx); Generalized abdominal pain Discharge Disposition: Home - Self Care Allergies Active Allergy Reactions Criticality Noted Date [...] Oral Tablet (Desyrel)Indicat ions:Coronary artery disease involving robinson coronary artery of robinson heart without angina pectoris,Stage 3a chronic kidney disease (HCC),Gastroesop hageal reflux disease without esophagitis,Oscar ntia (HCC) Take one-half tablet by mouth at bedtime as needed for insomnia 90 Tablet 3 5 Active Dexcom G7 Partner Cco DeviceIndication s:Severe dementia associated with other underlying disease, with other behavioral disturbance (HCC),Impaired fasting blood sugar Use as directed. 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 Not on file Not on file documented as of this encounter Last Filed Vital Signs Vital Sign Reading Time Taken Comments Blood Pressure 111/74 04/24/2024 7:25 PM EST Pulse 70 04/24/2024 7:25 PM EST Temperature 36.7 C (98.1 F) 04/24/2024 6:00 PM ES T Respiratory Rate 12 04/24/2024 7:25 PM EST Oxygen Saturation 100% 04/24/2024 7:25 PM EST Inhaled Oxygen Concentration - - Weight - - Height - - Body Mass Index - - documented in this encounter Discharge Instructions * Discharge Instructions* Dipesh Chavira DO - 04/24/2024 7:08 PM EST You may try taking 2-3 capfulls of miralax twice a day to see if this helps improve your constipation. documented in this encounter ED Notes * Dipesh Chavira DO - 04/24/2024 6:51 PM EST HISTORY OF PRESENT ILLNESS Kana Thomas is a 59 year old male who presents to the ED for evaluation of Abdominal Pain (RLQ, decreased urinary output with catether). The patient was seen at 04/24/24 1531. According to the patient's and the patient the patient reportedly recently he has been experiencing a diffuseabdominal pain. The patient has a history of chronic indwelling Newman catheter and was recently started on antibiotics for treatment of a potential urinary tract infection. The patient's 's feelsshe also has noticed some distention in the right side of the patient's abdomen. This abdominal pain prompted her to bring the patient to the ER for further evaluation. She reports recently she has been giving the patient MiraLax and he has not had a significant bowel movement Abdominal Pain Review of Systems Gastrointestinal: Positive for abdominal pain. The patient's allergies, past history, and medications were reviewed. PHYSICAL EXAM Initial Vitals (see all): BP 107/73 | Pulse 88 | Resp 18 | Temp 98.6 | O2 100 %, Room Air, None | Weight 73.94 kg | Height 190.5 cm | BMI 20.37 kg/m2 Initial Pain Assessment (see all): 6 (severe pain)/10, Pressure, location: lower abd ([facility] Adult Scale 0-10 (18 years and older)) Physical Exam Vitals and nursing note reviewed. Constitutional: General: He is not in acute distress. Appearance: He is well-developed. He is not diaphoretic. HENT: Nose: Nose normal. Eyes: Pupils: Pupils are equal, round, and reactive to light. Cardiovascular: Rate and Rhythm: Normal rate and regular rhythm. Heart sounds: Normal heart sounds. No murmur heard. No friction rub. No gallop. Pulmonary: Effort: Pulmonary effort is normal. Breath sounds: Normal breath sounds. No rales. Abdominal: General: Bowel sounds are normal. There is distension. Palpations: Abdomen is soft. Tenderness: There is generalized abdominal tenderness. Musculoskeletal: Cervical back: Normal range of motion and neck supple. Neurological: Mental Status: He is alert and oriented to person, place, and time. PROCEDURES AND TREATMENTS ED Orders | ED Results MEDICAL DECISION MAKING Nursing notes and vital signs were reviewed. ED Course as of 04/25/24 0717 Sat Apr 24, 2024 1659 CBC and CMP generally unremarkable [DM] 1659 Lactate: 0.7 [DM] 1755 CT abdomen pelvis shows diffuse constipation with significant gas in intestine in his but otherwise no signs of acute obstruction by my interpretation. [DM] ED Course User Index [DM] Dipesh Chavira, Differential Diagnoses Based on my history, physical exam, and evaluation, the differential includes, but is not limited, to the following diagnoses: UTI, appendicitis, colitis, enteritis. Patient found to be well appearing in no significant distress with benign physical exam. Chronic COVID catheter in place but patient noted to have distended abdomen with diffuse tenderness to palpation. Given patient's history further labs were performed that were found to be generally unremarkable. Normal CBC with no significant elevation in lactate. CT abdomen pelvis showed diffuse likely chronic constipation. Patient without signs of cauda equina syndrome otherwise. Patient given soapsuds enema with significant bowel movement and improvement of patient's symptoms. Urinalysis performed thatshowed no significant signs of infection. Patient's symptoms likely secondary to constipation. Patient's family advised of further symptomatic care to continue at home reasons return to the ER. Amount and/or Complexity of Data Reviewed Labs: ordered. Decision-making details documented in ED Course. Radiology: ordered. Risk Prescription drug management. Clinical Impressions Constipation, unspecified constipation type Generalized abdominal pain Disposition Discharged. The patient's condition at disposition was: stable. Dipesh Chavira * Ashley Aguilera RN - 04/24/2024 3:03 PM EST Patient brought in by due to not feeling well, stated he has dementia and was telling her how he does not feel well so she knows he does not feel well currently. A few days ago had an appointment at [facility] and they changed catheter, diagnosed with UTI. [facility] and did a UA culture is still pending. stated that his urinary output is decreased than normal and his catheter seems to be out further since last night. Patient stated he has a lot of lower abd pressure, stated he is slightly bloated. documented in this encounter Miscellaneous Notes * Pt Handout (on AVS) - Dipesh Chavira DO - 04/24/2024 7:08 PM EST Images from the original note were not included. 12958 Treating Constipation Constipation is a common and often uncomfortable problem. Constipation means you have bowel movements fewer than 3 times per week. Or that you strain to pass hard, dry stool. It can last a short time. Or it can be a problem that never seems to go away. The good news is that it can often be treated and controlled. Eat more fiber One of the best ways to help treat constipation is to increase your fiber intake. You can do this either through diet or by using fiber supplements. Fiber (in whole grains, fruits, and vegetables) adds bulk and absorbs water to soften the stool. This helps the stool pass through the colon more easily. When you increase your fiber intake, do it slowly to prevent side effects such as bloating. Alsoincrease the amount of water that you drink. Eating more of these foods can add fiber to your diet: High-fiber cereals Whole grains, bran, and brown rice Vegetables such as carrots, broccoli, and greens Fresh fruits (especially apples, pears, and dried fruits such as raisins and apricots) Nuts and legumes (especially beans such as lentils, kidney beans, and maharaj beans) Set a good routine Go to the bathroom when you feel you need to. Don?t ignore the urge to have a bowel movement. Set aside time after meals to go to the bathroom. Get physically active Exercise helps improve the working of your colon which helps ease constipation. Try to get some physical activity every day. If you haven?t been active for a while, talk with your healthcare providerbefore starting again. Consider other choices Laxatives. Your healthcare provider may suggest an mcsu-onp-rudnqke product to help ease your constipation. They may suggest using bulk-forming products or laxatives. Laxatives are common and safeif used as directed. Follow directions carefully when using them. See your provider for new constipation or long-term constipation. This is to rule out other causes such as certain medicines or otherhealth conditions. See your provider if you have rectal bleeding. Pelvic floor training. Biofeedback and pelvic physical therapy (PT) may be helpful. They can help if you have pelvic floor problems that may be lead to constipation. For biofeedback, the healthcare provider puts sensors in and outside your anus. This helps you learn how to find and relax the muscles during a bowel movement so you don't get constipated. With PT, you'll learn exercises to help have normal bowel movements and prevent constipation. You may be taught different positions to use tokeep from straining during a bowel movement. Last Reviewed Date: 2021 00:00:00 [id number] [employer]. All rights reserved. This information is not intended as a substitute for professional medical care. Always follow your healthcare professional's instructions. documented in this encounter Plan of Treatment Upcoming Encounters Date Type Department Care Team (Late st Contact Info) Description 04/25/2024 9:00 AM EST Scheduled Telephone [facility] [address] [place] [address] [facility], Nurse [facility] [address] [facility] [place] [address] 04/29/2024 11:00 AM EST Home Visit [facility], [facility] [address] [place] [address] Gregg Rosen PA-C [address] [place] [address] 05/10/2024 8:30 AM EST Home Visit [facility], [facility] [address] [place] [address] Meghna Ramon, LUIS [address] [place] [address] 05/20/2024 1:40 PM EST Office Visit Family Practice [facility] [address] [place] [address] Charles Mayer DO [address] [place] [address] 05/20/2024 3:40 PM EST Office Visit Neurology [address] [place] [address] Naresh Hampton DO [address] [place] [address] 05/21/2024 3:00 PM EST Office Visit Urology Reji Haines [address] [facility] [address] [place] [phone] Ruth Anguiano PA-C [address] [place] [address] 06/03/2024 9:00 AM EST Home Visit [facility] [place], [facility] [address] [place] [address] Gregg Rosen PA-C [address] [place] [address] 10/28/2024 11:40 AM EDT Office Visit Family [facility] [address] [place] [address] Charles Mayer DO [address] [place] [phone] Pending Results Name Type Priority Associated Diagnoses Date /Time CULTURE, URINE, QUANTITATIVE Lab STAT 04/24/2024 6:32 PM EST Scheduled Orders Name Type Priority Associated Diagnoses Orde r Schedule CULTURE, URINE, QUANTITATIVE Lab STAT One Time for 1 Occurrences starting 04/24/2024 until 04/24/2024 Scheduled Procedures Name Priority Associated Diagnoses Date/Ti [...] Additional history exists CKD PHOS USE SMARTSET 77523 11/24/2024 08/2 , 06/11/2023, 12/24/2019 Depression Screening 01/21/2025 01/22/2024 CKD HGB USE SMARTSET 92840 04/24/202504/24, 04/24/2024, 11/25/2023, Additional history exists Diabetes [...] Procedure Name Priority Date/Time Associated Diagnosis Comments URINALYSIS, REFLEX TO CULTURE STAT 04/24/2024 6:32 PM EST URINALYSIS, REFLEX TO CULTURE (CUP ONLY) STAT 04/24/2024 6:32 PM EST URINALYSIS, REFLEX TO CULTURE (NOT FOR NEUTROPENIC PATIENTS) STAT 04/24/2024 6:[address] ABD/PELVIS W IV CONTRAST - WO ORAL CONTRAST STAT 04/24/2024 4:41 PM EST LACTATE, WHOLE BLOOD WITH REFLEX IF ABNORMAL STAT 04/24/2024 3:56 PM EST DIFFERENTIAL, AUTOMATED STAT 04/24/2024 3:56 PM EST COMPREHENSIVE METABOLIC PANEL STAT 04/24/2024 3:56 PM EST CBC STAT 04/24/2024 3:56 PM EST CBC STAT 04/24/2024 3:56 PM EST DIFFERENTIAL, TECHNOLOGIST REVIEW Routine 04/24/2024 3:56 PM EST documented in this encounter Results * (ABNORMAL) URINALYSIS, REFLEX TO CULTURE (04/24/2024 6:32 PM EST) Color, Urine Yellow Light Yellow, Yellow, Dark Yellow 04/24/2024 6:55 PM EST LABORATORY [facility] Clarity, Urine Clear Clear 04/24/2024 6:55 PM EST [facility] Glucose, Urine Negative Negative mg/dL 04/24/2024 6:55 PM EST [facility] Bilirubin, Urine Negative Negative 04/24/2024 6:55 PM EST [facility] Ketone, Urine Negative Negative mg/dL 04/24/2024 6:55 PM EST [facility] Specific [place], Urine 1.057(H) 1.003 - 1.030 04/24/2024 6:55 PM EST [facility] Blood, Urine Large(A) Negative 04/24/2024 6:55 PM EST [facility]ORY [facility] pH, Urine 6.5 5.0 - 7.5 Units 04/24/2024 6:55 PM EST [facility] Protein, Urine 30(A) Negative mg/dL 04/24/2024 6:55 PM EST [facility] Urobilinogen, Urine 1.0 0.2, 1.0 mg/dL 04/24/2024 6:55 PM EST [facility] Nitrite, Urine Negative Negative 04/24/2024 6:55 PM EST [facility] Esterase, Urine Small(A) Negative 04/24/2024 6:55 PM EST [facility] RBC, Urine 50+(A) 0 - 2 /HPF 04/24/2024 6:55 PM EST [facility] WBC, Urine 0-2 0 - 2 /HPF 04/24/2024 6:55 PM EST [facility] Bacteria, Urine 26-50(A) 0 - 25 /HPF 04/24/2024 6:55 PM EST [facility] Culture, Urine 04/24/2024 6:55 PM EST [facility] Comment:Quantitative urine c ulture to be performed Urine Urine specimen obtained by clean catch procedure / Unknown Non-blood Collection / Unknown 04/24/2024 6:32 PM EST 04/24/2024 6:51 PM EST Dipesh Chavira LAB URINE ORDERABLES Final Result Performing Organization Address [facility] de Phone Number LABORATORY [address] [address] * URINALYSIS, REFLEX TO CULTURE (CUP ONLY) (04/24/2024 6:32 PM EST) Urinalysis, Reflex to Culture Specimen Specimen collected and received 04/24/2024 6:53 PM EST [facility] Urine Urine specimen obtained by clean catch procedure / Unknown Non-blood Collection / Unknown 04/24/2024 6:32 PM EST 04/24/2024 6:51 PM EST Dipesh Chavira LAB URINE ORDERABLES Final Result Performing Organization Address [facility] Phone Number LABORATORY [address] [address] * CT ABD/PELVIS W IV CONTRAST - WO ORAL CONTRAST (04/24/2024 4:41 PM EST) Anatomical Region Laterality Modality Body, Abdomen, Pelvis Computed T omography 04/24/2024 4:26 PM EST Impressions 04/24/2024 5:13 PM EST IMPRESSION: 1. Severe diffuse fecal retention, may be related to the severe lumbar stenosis and possibly cauda equina syndrome. No obstructive bowel lesion identified. Consideration for stercoral colitis with large rectal stool ball and mild perirectal stranding. 2. Previous gastric bypass, incompletely assessed without oral contrast. Central mesenteric swirling similar dating back to the 2019 exam. Internal hernia remains a consideration. Recommend repeating the exam with both oral and IV contrast if patient is clinically stable, once improved fecal retention. 3. Atrophic right kidney. 4. Two left lower pole nonobstructive stones, largest 5 mm. THIS DOCUMENT HAS BEEN ELECTRONICALLY SIGNED BY JAZMÍN ATWOOD MD Narrative 04/24/2024 5:13 PM EST PROCEDURE INFORMATION: Exam: CT Abdomen And Pelvis With Contrast Exam date and time: 04/24/2024 4:26 PM Age: 59 years old Clinical indication: Abdominal pain; Localized; Lower; Additional info: Lower abdominal pain, fever at home. TECHNIQUE: Imaging protocol: Computed tomography of the abdomen and pelvis with contrast. Radiation optimization: All CT scans at this facility use at least one of these dose optimization techniques: automated exposure control; mA and/or kV adjustment per patient size (includes targeted exams where dose is matched to clinical indication); or iterative reconstruction. Contrast material: ISOVUE 370; Contrast volume: 80 ml; Contrast route: INTRAVENOUS (IV); COMPARISON: 1. CT ABDOMEN PELVIS WITH(Adult) 10/31/2023 1:[address] ABD/PELVIS W IV AND W ORAL CONTRAST 09/25/2018 8:42 AM 3. US RENAL 12/14/2018 8:30 AM FINDINGS: Tubes, catheters and devices: Spinal cord stimulator. Streak artifact from generator pack projecting over the left lower quadrant anterior abdominal wall. Lungs: Mild bibasal hypoventilation and minimal scarring right lung base. Coronary arteries: Heavy coronary artery calcification. Diaphragm: Small hiatal hernia. Liver: Fatty liver. Gallbladder and biliary ducts: Previous cholecystectomy. Pancreas: Atrophic pancreas. Spleen: Calcific splenic granulomata. Adrenal glands: Normal. No mass. Kidneys and ureters: Symmetric renal enhancement. Atrophic right kidney. Nonobstructive 4 and 5 mm left lower pole renal calculi. No hydronephrosis. Stomach and bowel: Previous gastric bypass with antecolic Geronimo limb, incompletely assessed without oral contrast. Concern for internal hernia with segregated small bowel loops in the left midabdomen, could represent a Macario hernia. Redundant stool-filled colon. No definite volvulus. Severe diffuse fecal retention with large rectal stool ball and perirectal soft tissue stranding. Appendix: Appendix not visualized. Intraperitoneal space: Central mesenteric whirling, not significantly changed since the 2019 exam. No definite vascular occlusion or pneumatosis. Vasculature: Retroaortic left renal vein. Lymph nodes: Unremarkable. No enlarged lymph nodes. Urinary bladder: Minimally distended urinary bladder, decompressed with a Newman catheter. Reproductive: Nonenlarged prostate. Bones/joints: Lumbar hardware unchanged. Old healed right posterior rib fractures. Severe degenerative disc disease L4/L5 and L5/S1 cause bilateral lateral recess and subarticular stenosis and severe canal stenosis. Soft tissues: Unremarkable. Procedure Note Jazmín Atwood MD - 04/24/2024 PROCEDURE INFORMATION: Exam: CT Abdomen And Pelvis With Contrast Exam date and time: 04/24/2024 4:26 PM Age: 59 years old Clinical indication: Abdominal pain; Localized; Lower; Additional info:Lower abdominal pain, fever at home. TECHNIQUE: Imaging protocol: Computed tomography of the abdomen and pelvis withcontrast. Radiation optimization: All CT scans at this facility use at least one ofthese dose optimization techniques: automated exposure control; mA and/or kV adjustment per patient size (includes targeted exams where dose is matchedto clinical indication); or iterative reconstruction. Contrast material: ISOVUE 370; Contrast volume: 80 ml; Contrast route: INTRAVENOUS (IV); COMPARISON: 1. CT ABDOMEN PELVIS WITH(Adult) 10/31/2023 1:[address] ABD/PELVIS W IV AND W ORAL CONTRAST 09/25/2018 8:42 AM 3. US RENAL 12/14/2018 8:30 AM FINDINGS: Tubes, catheters and devices: Spinal cord stimulator. Streak artifact from generator pack projecting over the left lower quadrant anterior abdominalwall. Lungs: Mild bibasal hypoventilation and minimal scarring right lung base. Coronary arteries: Heavy coronary artery calcification. Diaphragm: Small hiatal hernia. Liver: Fatty liver. Gallbladder and biliary ducts: Previous cholecystectomy. Pancreas: Atrophic pancreas. Spleen: Calcific splenic granulomata. Adrenal glands: Normal. No mass. Kidneys and ureters: Symmetric renal enhancement. Atrophic right kidney. Nonobstructive 4 and 5 mm left lower pole renal calculi. Nohydronephrosis. Stomach and bowel: Previous gastric bypass with antecolic Geronimo limb, incompletely assessed without oral contrast. Concern for internal herniawith segregated small bowel loops in the left midabdomen, could represent aPeterson hernia. Redundant stool-filled colon. No definite volvulus. Severe diffuse fecal retention with large rectal stool ball and perirectal soft tissue stranding. Appendix: Appendix not visualized. Intraperitoneal space: Central mesenteric whirling, not significantlychanged since the 2019 exam. No definite vascular occlusion or pneumatosis. Vasculature: Retroaortic left renal vein. Lymph nodes: Unremarkable. No enlarged lymph nodes. Urinary bladder: Minimally distended urinary bladder, decompressed with aFoley catheter. Reproductive: Nonenlarged prostate. Bones/joints: Lumbar hardware unchanged. Old healed right posterior rib fractures. Severe degenerative disc disease L4/L5 and L5/S1 causebilateral lateral recess and subarticular stenosis and severe canal stenosis. Soft tissues: Unremarkable. IMPRESSION IMPRESSION: 1. Severe diffuse fecal retention, may be related to the severe lumbar stenosis and possibly cauda equina syndrome. No obstructive bowel lesion identified. Consideration for stercoral colitis with large rectal stoolball and mild perirectal stranding. 2. Previous gastric bypass, incompletely assessed without oral contrast. Central mesenteric swirling similar dating back to the 2019 exam. Internal hernia remains a consideration. Recommend repeating the exam with bothoral and IV contrast if patient is clinically stable, once improved fecalretention. 3. Atrophic right kidney. 4. Two left lower pole nonobstructive stones, largest 5 mm. THIS DOCUMENT HAS BEEN ELECTRONICALLY SIGNED BY JAZMÍN ATWOOD MD Dipesh Chavira DO RAD CT Final Resu lt * (ABNORMAL) DIFFERENTIAL, TECHNOLOGIST REVIEW (04/24/2024 3:56 PM EST) Pathologist [facility] 04/24/2024 4:12 PM EST LAB[facility] Reactive Lymphocytes Present(A ) None Seen 04/24/2024 4:12 PM EST [facility] Blood Venous blood specimen / Unknown Venipuncture / Unknown 04/24/2024 3:56 PM EST 04/24/2024 4:00 PM EST Dipesh Chavira DO LAB BLOOD ORDERABLES Final Result LAB[facility]ATORY [place] [address] [place] [address] * (ABNORMAL) DIFFERENTIAL, AUTOMATED (04/24/2024 3:56 PM EST) Pathologist [facility] WBC 8.36 4.00 - 10.80 K/uL 04/24/2024 4:12 PM EST [facility] Neutrophils % 73.0 40.0 - 75.0 % 04/24/2024 4:12 PM EST [facility]ORY [facility] Lymphocytes % 16.9(L) 18.0 - 42.0 % 04/24/2024 4:12 PM EST [facility] Monocytes % 9.4 1.0 - 11.0 % 04/24/2024 4:12 PM EST [facility] Eosinophils % 0.5 0.0 - 6.0 % 04/24/2024 4:12 PM EST [facility] Basophils % 0.2 0.0 - 2.0 % 04/24/2024 4:12 PM EST [facility] Absolute Neutrophils 6.10 1.80 - 7.70 K/uL 04/24/2024 4:12 PM EST [facility] Absolute Lymphocytes 1.41 1.00 - 4.80 K/ul 04/24/2024 4:12 PM EST [facility] Absolute Monocytes 0.79 0.00 - 1.10 K/uL 04/24/2024 4:12 PM EST [facility] Absolute Eosinophils 0.04 0.00 - 0.70 K/uL 04/24/2024 4:12 PM EST [facility] Absolute Basophils 0.02 0.00 - 0.20 K/uL 04/24/2024 4:12 PM EST [facility] Blood Venous blood specimen / Unknown Venipuncture / Unknown 04/24/2024 3:56 PM EST 04/24/2024 4:00 PM EST Dipesh Chavira DO LAB BLOOD ORDERABLES Final Result Performing Organization Address City/State/[facility] Co de Phone Number LABORATORY [place] [address] [place] [address] * (ABNORMAL) CBC (04/24/2024 3:56 PM EST) [facility] WBC 8.36 4.00 - 10.80 K/uL 04/24/2024 4:12 PM EST [facility] RBC 3.72 4.50 - 5.25 M/uL 04/24/2024 4:12 PM EST [facility] HGB 10.7(L) 14.0 - 16.8 g/dL 04/24/2024 4:12 PM EST [facility] HCT 34.1(L) 40.0 - 48.4 % 04/24/2024 4:12 PM EST [facility] MCV 91.7 82.0 - 99.5 fL 04/24/2024 4:12 PM EST [facility] MCH 28.8 27.0 - 34.0 pg 04/24/2024 4:12 PM EST [facility] MCHC 31.4 32.0 - 36.0 g/dL 04/24/2024 4:12 PM EST [facility] RDW 15.3 11.5 - 15.5 % 04/24/2024 4:12 PM EST [facility] PLT 241 140 - 400 K/uL 04/24/2024 4:12 PM EST [facility] MPV 8.9 6.6 - 11.1 fL 04/24/2024 4:12 PM EST [facility] Blood Venous blood specimen / Unknown Venipuncture / Unknown 04/24/2024 3:56 PM EST 04/24/2024 4:00 PM EST Dipesh Chavira DO LAB BLOOD ORDERABLES Final Result Performing Organization Address City/[facility]/ZIP Co de Phone Number LABORATORY [address] [address] * LACTATE, WHOLE BLOOD WITH REFLEX IF ABNORMAL (04/24/2024 3:56 PM EST) Lactate 0.7 0.4 - 2.0 mmol/L 04/24/2024 4:12 PM EST [facility] Blood Venous blood specimen / Unknown Venipuncture / Unknown 04/24/2024 3:56 PM EST 04/24/2024 4:00 PM EST Dipesh Chavira DO LAB BLOOD ORDERABLES Final Result Performing Organization Address City/[facility]/ZIP Co de Phone Number LABORATORY [address] [address] * (ABNORMAL) COMPREHENSIVE METABOLIC PANEL (04/24/2024 3:56 PM EST) BUN 13 6 - 20 mg/dL 04/24/2024 4:20 PM EST [facility] CREATININE 1.3(H) 0.6 - 1.2 mg/dL 04/24/2024 4:20 PM EST [facility] EGFR 60 >=60 mL/min 04/24/2024 4:20 PM EST [facility] Comment:eGFR is calculated b ased on the CKD-EPI 2020 equation. SODIUM 136 135 - 146 mmol/L 04/24/2024 4:20 PM EST [facility] POTASSIUM 4.1 3.5 - 5.1 mmol/L 04/24/2024 4:20 PM EST [facility] CHLORIDE 100 98 - 107 mmol/L 04/24/2024 4:20 PM EST [facility] CO2 26 22 - 32 mmol/L 04/24/2024 4:20 PM EST [facility] ANION GAP 10 7 - 15 mmol/L 04/24/2024 4:20 PM EST [facility] GLUCOSE 103 70 - 120 mg/dL 04/24/2024 4:20 PM EST [facility] Albumin 3.6(L) 3.8 - 5.0 g/dL 04/24/2024 4:20 PM EST [facility] AST 24 10 - 50 U/L 04/24/2024 4:20 PM EST [facility] Alkaline Phosphatase 123 35 - 130 U/L 04/24/2024 4:20 PM EST [facility] Bilirubin, Total 0.6 <=1.2 mg/dL 04/24/2024 4:20 PM EST [facility] CALCIUM 9.3 8.4 - 10.2 mg/dL 04/24/2024 4:20 PM EST [facility] Protein 6.1 6.0 - 8.3 g/dL 04/24/2024 4:20 PM EST [facility] ALT 14 10 - 50 U/L 04/24/2024 4:20 PM EST [facility] Blood Venous blood specimen / Unknown Venipuncture / Unknown 04/24/2024 3:56 PM EST 04/24/2024 4:00 PM EST Dipesh Chavira DO LAB BLOOD ORDERABLES Final Result [facility] [place] [id number] [place] [phone] documented in this encounter Visit Diagnoses Diagnosis Constipation, unspecified constipation type- Primary Generalized abdominal pain Abdominal pain, generalized documented in this encounter Administered Medications Inactive Administered Medications - up to 3 most recent administrations Medication Order MAR Action Action Date Dose Rate Site Iopamidol (Isovue 370) inj 80 mL 80 mL, Intravenous, ONCE, On 04/24/24 at 1715, For 1 dose, Radiology Medication Routing (Non-IR) Given 04/24/2024 5:15 PM EST 80 mL NSS 0.9% 1,000 mL bolus infusion Peripheral IV, at 1,000 mL/hr Administer over 60 Minutes, Administer entire volume within 60 minutes or less., ONCE, 1 dose, On 04/24/24 at 1630 New Bag 04/24/2024 5:29 PM EST 1,000 mL 1000 mL/hr soap solution enema 1 Enema 1 Enema, Rectal, ONCE, On 04/24/24 at 1830, For 1 dose Given 04/24/2024 6:30 PM EST 1 Enema documented in this encounter Active and Recently Administered Medications Times are shown in EST. Scheduled Medication Order 04/22/2024 04/23/2024 04/24/2024 Iopamidol (Isovue 370) inj 80 mL (COMPLETED) 80 mL, Intravenous, ONCE, On 04/24/24 at 1715, For 1 dose, Radiology Medication Routing (Non-IR) 1715 (Given - Provid er: Radha Jasso, RT (R)) NSS 0.9% 1,000 mL bolus infusion (COMPLETED) Peripheral IV, at 1,000 mL/hr Administer over 60 Minutes, Administer entire volume within 60 minutes or less., ONCE, 1 dose, On 04/24/24 at 1630 1729 (New Bag - Prov ider: Dorys Penny, LUIS)1815 (Stopped - Provider: Dorys Penny RN) soap solution enema 1 Enema (COMPLETED) 1 Enema, Rectal, ONCE, On 04/24/24 at 1830, For 1 dose 1830 (Given - Provid er: Dorys Penny RN) documented in this encounter Advance Directives Documents on File Type Date Recorded 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 Care Teams Barrel Maker Relationship Specialty Start Date End Date Charles Mayer DO [address] [place] [address] PCP - General Family Medicine 05/26/23 documented as of this encounter
--- OUTSIDE RECORDS SUMMARY | 2024-05-12 06:48 | External Medical Summary ---
Author Name Unknown Address Unknown Organization K01:LABORATORY [facility] - [address] [place] [address] Laboratory Report Ordering Provider Test Date Status MARIA ELENA TRUJILLO 04/24/2024 18:32:20 Final Observation Date Value Abnormality Reference (Units) Status Bacteria identified in Specimen by Culture 04/24/2024 18:32:20 No significant growth Final Test: Culture, Urine, Quanti tative
Specimen Source: Urine, Clean Catch
Specimen Type: Urine
Specimen Date: 04/24/2024 1832
Result Date: 04/26/2024 1251
Result Status: Final result
Resulting Lab: [facility]
[address]
[place] [address]

CULTURE

No significant growth

null Performing Location LABORATORY [facility] - [address] [place] [address]
--- OUTSIDE RECORDS SUMMARY | 2024-05-12 06:49 | External Medical Summary | Summary of Care ---
Author Name Unknown Organization [facility] Address [address] [place] [address] Phone [phone] Care Team Providers Care Workforce Management Manager Name Role Phone Charles Mayershawn Primary Care Provider Encounter Details Date Type Department Care Team (Late st Contact Info) Description 04/22/2024 1:00 PM EST [facility] [address] [facility] [place] [address] [facility] Nurse Urology [facility] [address] [place] [facility] [place] [address] Arrived Allergies Active Allergy Reactions Criticality Noted Date [...] as of this encounter (statuses as of 04/22/2024) Medications Pantoprazole Sodium 40 MG Oral Tablet [...] Oral Tablet (Desyrel)Indicat ions:Coronary artery disease involving [place] coronary artery of [place] heart without angina pectoris,Stage 3a chronic kidney disease (HCC),Gastroesop hageal reflux disease without esophagitis,Oscar ntia (HCC) Take one-half tablet by mouth at bedtime as needed for insomnia 90 Tablet 3 5 Active Dexcom G7 Engineering Aide DeviceIndication s:Severe dementia associated with other [...] inj 1,000 mcgIndications:B12 deficiency 1000 mcg IM [id number] 01/28/2024 12/29/2024 Active documented as of this encounter (statuses as of 04/22/2024) Active Problems Problem Noted Date Diagnosed Date [...] 09/16/2014 Intestinal postoperative nonabsorption 1 CALLAHAN RESEARCH OTHER*[id number] 09/14/2009 MEDICATION USE AGREEMENT 05/19/2008 Overview (05/19/2008): See kim GERD (gastroesophageal reflux disease) Gout S/P gastric bypass S/P spinal fusion documented as of this encounter (statuses as of 04/22/2024) Resolved Problems Problem Noted Date Diagnosed Date [...] Tobacco use disorder 09/18/2009 011 Bariatric Proteinuria Research*[id number] 09/14/2009 12/27/2009 Organic sleep disorder 06/22/200910/10 Morbid obesity, BMI not known 06/22/2009 06/26/2010 Gout 05/08/2009 11/28/2014 History of tobacco use 05/08/200910/10 Sleep apnea 05/08/2009 06/22/2009 ADVANCE DIRECTIVE INFORMATION 01/21/2009 02/09/2024 Overview (01/21/2009): No, Advance Directive brochure offered , patient declined. 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 Current indwelling catheter removed. Patient prepped with betadine and # 16 coudet parra catheter with 10 ml balloon inserted without difficulty and connected to overnight bag for return of clear urine with brown flecks Patient tolerated the procedure. To return in 1 month for catheter change. documented in this encounter Plan of Treatment Upcoming Encounters Date Type Department Care Team (Late st Contact Info) Description 04/29/2024 11:00 AM EST Home Visit [facility] at [facility] [address] [place] [address] Gregg Rosen PA-C 132 [facility] [place] [address] 05/10/2024 8:30 AM EST Home Visit Rafaela at [facility] [address] [place] [address] Meghna Ramon RN [address] [place] [address] 05/20/2024 1:40 PM EST Office Visit Family Practice [facility] [address] [place] [address] Charles Mayer DO 132 [facility] [place] [address] 05/20/2024 3:40 PM EST Office Visit Neurology [address] [place] [phone] Naresh Hampton, DO [address] [facility] [place] [id number] 05/21/2024 3:00 PM EST Office Visit Urology Reji Haines [address] [place] [address] Ruth Anguiano PA-C [address] [address] 06/03/2024 9:00 AM EST Home Visit Rafaela at [facility] [address] [place] [address] Gregg Rosen PA-C [address] [place] [address] 10/28/2024 11:40 AM EDT Office Visit Family [facility] [address] [place] [address] Charles Mayer DO [address] [place] [address] Scheduled Procedures Name Priority Associated Diagnoses Date/Ti [...] Additional history exists CKD HGB USE SMARTSET 03403 11/24/202411/24, 11/25/2023, 06/11/2023, Additional history exists CKD PHOS USE SMARTSET 44837 11/24/202411/06, 06/11/2023, 12/24/2019 Depression Screening 01/21/2025 01/22/2024 [...] as of this encounter Visit Diagnoses Diagnosis Retention of urine- Primary Retention of urine, unspecified documented in this encounter Advance Directives Documents on File Type Date Recorded Patient Client Care Consultant Expl 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 Care Teams Workforce Management Manager Relationship Specialty Start Date End Date Charles Mayer DO [address] [place] [address] PCP - General Family Medicine 05/26/23 documented as of this encounter
--- OUTSIDE RECORDS SUMMARY | 2024-05-12 06:49 | External Medical Summary ---
Author Name Unknown Address Unknown Organization K1G:[facility]ATORY [facility] - [facility] [address] Laboratory Report Ordering Provider Test Date Status MARIA ELENA TRUJILLO 04/24/2024 15:56:11 Final Observation Date Value Abnormality Reference (Units ) Status SYNC LEUKOCYTES IN BLOOD BY AUTOMATED COUNT 04/24/2024 15:56:11 8.36 4.00-10.80 (K/uL) Final Segs 04/24/2024 15:56:11 73.0 40.0-75.0 (%) Final Lymphs % 04/24/2024 15:56:11 16.9 Below low normal 18.0-42.0 (%) Final Monos 04/24/2024 15:56:11 9.4 1.0-11.0 (%) Final Eosinophils 04/24/2024 15:56:11 0.5 0.0-6.0 (%) Final Basos 04/24/2024 15:56:11 0.2 0.0-2.0 (%) Final Absolute Segs 04/24/2024 15:56:11 6.10 1.80-7.70 (K/uL) Final Lymphs, absolute 04/24/2024 15:56:11 1.41 1.00-4.80 (K/ul) Final Monos, Abs 04/24/2024 15:56:11 0.79 0.00-1.10 (K/uL) Final Eos, Abs 04/24/2024 15:56:11 0.04 0.00-0.70 (K/uL) Final Basos, Abs 04/24/2024 15:56:11 0.02 0.00-0.20 (K/uL) Final Performing Location [facility] [address]
--- OUTSIDE RECORDS SUMMARY | 2024-05-12 06:49 | External Medical Summary ---
Author Name Unknown Address Unknown Organization K1G:LABORATORY [facility] - [address] [place] [id number] Laboratory Report Ordering Provider Test Date Status MARIA ELENA TRUJILLO 04/24/2024 15:56:11 Final Observation Date Value Abnormality Reference (Units ) Status WBC, Total 04/24/2024 15:56:11 8.36 4.00-10.8 0 (K/uL) Final RBC 04/24/2024 15:56:11 3.72 4.50-5.25 (M/uL) Final Hemoglobin 04/24/2024 15:56:11 10.7 Below low normal 14 .0-16.8 (g/dL) Final HCT 04/24/2024 15:56:11 34.1 Below low normal 40. 0-48.4 (%) Final MCV 04/24/2024 15:56:11 91.7 82.0-99.5 (fL) Final MCH 04/24/2024 15:56:11 28.8 27.0-34.0 (pg) Final MCHC 04/24/2024 15:56:11 31.4 32.0-36.0 (g/dL) Final RDW 04/24/2024 15:56:11 15.3 11.5-15.5 (%) Final Platelets 04/24/2024 15:56:11 241 140-400 (K /uL) Final MPV 04/24/2024 15:56:11 8.9 6.6-11.1 ( fL) Final Performing Location LABORATORY [facility] - [address] [facility] [address]
--- OUTSIDE RECORDS SUMMARY | 2024-05-12 06:49 | External Medical Summary ---
Author Name Unknown Address Unknown Organization K1G:[facility]ATORY [facility] - [address] [facility] [place] [address] Laboratory Report Ordering Provider Test Date Status MARIA ELENA TRUJILLO 04/24/2024 15:56:11 Final Observation Date Value Abnormality Reference (Units ) Status BUN 04/24/2024 15:56:11 13 6-20 (mg/dL) Final Creatinine 04/24/2024 15:56:11 1.3 Above high normal 0.6-1.2 (mg/dL) Final Glomerular filtration rate/1.73 sq M.predicted [Volume Rate/Area] in Serum, Plasma or Blood by Creatinine-based formula (CKD-EPI) 04/24/2024 15:56:11 60 >=60 (mL/min) Final eGFR is calculated based on the CKD-EPI 2020 equation. Sodium 04/24/2024 15:56:11 136 135-146 (m mol/L) Final Potassium 04/24/2024 15:56:11 4.1 3.5-5.1 (m mol/L) Final Cl 04/24/2024 15:56:11 100 98-107 (mm ol/L) Final CO2 04/24/2024 15:56:11 26 22-32 (mmo l/L) Final Anion gap 04/24/2024 15:56:11 10 7-15 (mmol /L) Final Glucose 04/24/2024 15:56:11 103 70-120 (mg /dL) Final Albumin 04/24/2024 15:56:11 3.6 Below low normal 3.8 -5.0 (g/dL) Final AST (Aspartate aminotransferase) 04/24/2024 15:56:11 24 10-50 (U/L) Fin al Alk Phos 04/24/2024 15:56:11 123 35-130 (U/ L) Final Bilirubin, Total 04/24/2024 15:56:11 0.6 <=1 .2 (mg/dL) Final Calcium 04/24/2024 15:56:11 9.3 8.4-10.2 ( mg/dL) Final Protein 04/24/2024 15:56:11 6.1 6.0-8.3 (g /dL) Final ALT (Alanine aminotransferase) 04/24/2024 15:56:11 14 10-50 (U/L) Guillermo hylton Performing Location LABORATORY [address] [address]
--- OUTSIDE RECORDS SUMMARY | 2024-05-12 06:49 | External Medical Summary | Summary of Care ---
Author Name Unknown Organization [facility] Address [address] [place] [address] Phone [phone] Care Team Providers Care Mri Tech Name Role Phone Charles Mayershawn Primary Care Provider Encounter Details Date Type Department Care Team (Late st Contact Info) Description 04/22/2024 1:00 PM EST [facility] [address] [facility] [place] [address] [facility] Nurse Urology [facility] [address] [facility] [address] Arrived Allergies Active Allergy Reactions Criticality Noted [...] Oral Tablet (Desyrel)Indicat ions:Coronary artery disease involving [place] coronary artery of [place] heart without angina pectoris,Stage 3a chronic kidney disease (HCC),Gastroesop hageal reflux disease without esophagitis,Oscar ntia (HCC) Take one-half tablet by mouth at bedtime as needed for insomnia 90 Tablet 3 5 Active Dexcom G7 Wire Bender DeviceIndication s:Severe dementia associated with other underlying [...] inj 1,000 mcgIndications:B12 deficiency 1000 mcg IM [id number] 01/28/2024 12/29/2024 Active documented as of this [...] anemia 04/24/2017 Coronary artery disease invo lving s[place]qualmie heart without angina pectoris 04/18/2016 Incomplete tear of right rotator cuff 04/15/2016 Overview (04/15/2016): 04/23 Dr Eduardo guerrero. Anxiety 09/28/2014 Diverticulitis of colon 09/16/2014 Intestinal postoperative nonabsorption 1 CALLAHAN RESEARCH OTHER*[id number] 09/14/2009 MEDICATION USE AGREEMENT 05/19/2008 Overview (05/19/2008): [...] S/p gastric bypass. 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 Not [...] 11:00 AM EST Home Visit Rafaela at [facility] [address] [place] [address] Gregg Rosen PA-C 132 [facility] [place] [address] 05/10/2024 8:30 AM EST Home Visit Rafaela at [facility] [address] [place] [address] Meghna Ramon RN [address] [place] [address] 05/20/2024 1:40 PM EST Office Visit Family Practice [facility] [address] [place] [address] Charles Mayer DO 132 [facility] [place] [address] 05/20/2024 3:40 PM EST Office Visit Neurology [address] [place] [phone] Naresh Hampton, DO [address] [facility] [place] [address] 05/21/2024 3:00 PM EST Office Visit Urology Reji Haines [address] [place] [address] Ruth Anguiano PA-C [address] [address] 06/03/2024 9:00 AM EST Home Visit Rafaela at [facility] [address] [place] [address] Gregg Rosen PA-C [address] [place] [address] 10/28/2024 11:40 AM EDT Office Visit Family [facility] [address] [place] [address] Charles Mayer DO [address] [place] [address] Scheduled Procedures Name Priority Associated Diagnoses Date/Ti [...] Additional history exists CKD HGB USE SMARTSET 61802 11/24/202411/24, 11/25/2023, 06/11/2023, Additional history exists CKD PHOS USE SMARTSET 50489 11/24/202411/06, 06/11/2023, 12/24/2019 Depression Screening 01/21/2025 01/22/2024 [...] Documents on File Type Date Recorded Patient Desktop Support Specialist Expl 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 Care Teams Mri Tech Relationship Specialty Start Date End Date Charles Mayer DO [address] [place] [address] PCP - General Family Medicine 05/26/23 documented as of this encounter
[2024-05-12 07:30] LABS: Basophils # (auto) 0.02 K/uL (0.00-0.20); Basophils % (auto) 0.4 %; Eosinophils # (auto) 0.08 K/uL (0.00-0.50); Eosinophils % (auto) 1.5 %; Hematocrit (blood only) 30.9 % (42.0-52.0); Immature Granulocytes # (auto) 0.02 K/uL (0.01-0.20); Immature Granulocytes % (auto) 0.4 %; Lymphocytes # (auto) 1.49 K/uL (1.20-3.40); Lymphocytes % (auto) 28.7 %; Mean Corpuscular Hemoglobin 28.5 pg (25.0-34.0); Mean Corpuscular Hgb Conc 32.4 g/dL (32.0-36.0); Monocytes # (auto) 0.75 K/uL (0.11-0.59); Monocytes % (auto) 14.4 %; Neutrophils # (auto) 2.84 K/uL (1.40-6.50); Neutrophils % (auto) 54.6 %; Platelet Count 161 K/uL (130-400); RDW Coefficient of Variation 15.4 % (11.5-14.5); RDW Standard Deviation 49.3 fL (36.4-46.3); Red Blood Count 3.51 M/uL (4.70-6.10)
[2024-05-12 07:33] LABS: BUN Creatinine Ratio 14.5 (10-20); Calcium 8.9 mg/dl (8.6-10.3); Creatinine Clr Calc Pharmacy 66.6 ml/min; Magnesium 1.8 mg/dl (1.7-2.4); Potassium 3.9 mmol/L (3.5-5.1)
[2024-05-12] MEDS: MoRPHine SULFATE CR 15 MG TABCR PO SCH (08:50)
[2024-05-12] MEDS: MEMANTINE HCL 10 MG TAB PO SCH (08:50)
[2024-05-12] MEDS: LORATADINE 10 MG TAB PO SCH (08:50)
[2024-05-12] MEDS: PANTOprazole 40 MG TAB PO SCH (08:50)
[2024-05-12] MEDS: allopurinoL 300 MG TAB PO SCH (08:50)
[2024-05-12] MEDS: OSELTAMIVIR PHOSPHATE 75 MG CAP PO SCH (08:50)
[2024-05-12] MEDS: ENOXAPARIN INJ 40 MG/0.4 ML SYR SQ SCH (08:51)
[2024-05-12] MEDS: TAMSULOSIN HCL 0.4 MG CAP PO SCH (08:51)
--- NOTE | 2024-05-12 08:59 | Electrocardiogram Report ---
Test Reason : Blood Pressure : */* mmHG Vent. Rate : 72 BPM Atrial Rate : 72 BPM P-R Int : 128 ms QRS Dur : 112 ms QT Int : 440 ms P-R-T Axes : 50 13 38 degrees QTcB Int : 481 ms Normal sinus rhythm Low voltage QRS Incomplete right bundle branch block Prolonged QT Abnormal ECG When compared with ECG of 22-Apr-2024 00:23, QRS duration has decreased Confirmed by Clyde Bartholomew ([id number]) on 05/12/2024 8:59:28 AM Referred By: REFERRED SELF Confirmed By: Clyde Bartholomew
[2024-05-12] MEDS: ADVANCED PROBIOTIC 625 MG CAPSULE PO SCH (10:53)
[2024-05-12] MEDS: MIRTAZAPINE TAB 15 MG TAB PO SCH (21:08)
[2024-05-12] MEDS: FAMOTIDINE 40 MG TABLET PO SCH (21:08)
[2024-05-12] MEDS: OLANZapine 5 MG TABLET PO SCH (21:09)
[2024-05-12] MEDS: traZODone HCL 50 MG TAB PO SCH (21:09)
--- NOTE | 2024-05-13 18:20 | Hospitalist Progress Note ---
Date of Service May 13, 2024 Assessment & Plan (1) AMS (altered mental status): Plan: Per admitting service notes with addendum: 59-year-old male with past medical history significant for gout, dementia, history of traumatic brain injury, history of CAD, history of right upper lobe pulmonary nodule, GERD, status post gastric bypass, history of diverticulitis, CKD stage III, iron deficiency anemia, spinal fusion surgery, history of skull fracture, history of kidney stones who lives at home with his was brought in because of confusion and found to have UTI and flu. As per since last Friday patient getting confused and it was getting progressively worsening. He was seeing things and talking to people. Today he had temperature spike. And urine was also foul-smelling and was brought to the ER. In the ER he was found to UTI and also flu. As per no cough. His appetite is down. No nausea or vomiting. Patient had diarrhea about a week ago. But last 2 days he did not move his bowels per . Patient is alert and awake and oriented to name only. Patient denies any headache. Denies chest pain. Denies shortness of breath. Denies cough. Denies abdominal pain. Hemodynamics are okay. Altered mental status Possible toxic metabolic encephalopathy secondary to urinary tract infection, influenza infection Mental status improving, mostly back to baseline Acute UTI, Catheter associated Urine culture: Positive Pseudomonas, Enterococcus Continue daptomycin plus cefepime Will consult ID Influenza Droplet precautions Tamiflu Supportive care Hx of Urinary retention s/p Newman On Flomax Follow-up with urology History of dementia History of traumatic brain injury On memantine Monitor for delirium Hyperlipidemia On statin, hold while on Dapto GERD History of GI bleed On famotidine and Protonix History of gout On allopurinol Chronic anemia History of gastric bypass On vitamin B12 shots Hemoglobin 11.2 History of nonobstructive CAD On statin CKD stage III Present creatinine 1.3 Will follow labs Chronic pain Spinal fusion Currently on morphine ER 15 mg twice daily, will hold if patient gets drowsy DVT prophylaxis Lovenox Disposition Med/telemetry CODE STATUS DNR/DNI as per my discussion with Admission and Anticipated Discharge Date Admission Date: May 12, 2024 Subjective Follow-up for UTI, influenza infection, etc. Seen resting in bed, comfortable, not in distress In good spirits States he feels okay overall Denies shortness of breath, has intermittent dry cough, no chest pain Denies abdominal pain, urinary symptoms, fevers or chills No other new symptoms Review of Systems Review of Systems: all noted and negative except for above Physical Exam Physical Exam: General- oriented x 3, not in distress, speaks in sentences with no effort or accessory muscle use Eyes- anicteric Neck- no JVD Lungs- clear breath sounds bilaterally, no rales/wheezes Heart- normal rate, regular rhythm; no murmurs Abdomen- normal bowel sounds, nondistended, soft, nontender Catheter in place: Yellow urine noted Extremities- no pretibial edema, no calf tenderness Neuro- alert, oriented x 3; no gross focal neurologic deficits Skin- warm & dry Results & Data Results & Data Vital Signs (Past 12 Hours) Vital Signs Temp Pulse Pulse Pulse Resp BP BP 05/13/24 16:56 73 05/13/24 15:39 05/13/24 15:00 36.5 C 73 16 124/80 05/13/24 13:00 74 12 114/78 05/13/24 12:00 77 12 93/56 L 05/13/24 10:00 36.9 C 80 17 107/68 05/13/24 08:01 56 L Pulse Ox O2 Del Method 05/13/24 16:56 05/13/24 15:39 Room Air 05/13/24 15:00 96 Room Air 05/13/24 13:00 96 Room Air 05/13/24 12:00 96 Room Air 05/13/24 10:00 96 Room Air 05/13/24 08:01 all noted and reviewed including below
[2024-05-14] MEDS: LORazepam 1 MG TAB PO PRN (12:58)
[2024-05-14] MEDS: PROMETHAZINE 12.5 MG/50.5 ML BAG IV PRN (16:38)
--- NOTE | 2024-05-14 16:39 | Hospitalist Progress Note ---
Date of Service May 14, 2024 Assessment & Plan (1) AMS (altered mental status): Plan: Per admitting service notes with addendum: 59-year-old male with past medical history significant for gout, dementia, history of traumatic brain injury, history of CAD, history of right upper lobe pulmonary nodule, GERD, status post gastric bypass, history of diverticulitis, CKD stage III, iron deficiency anemia, spinal fusion surgery, history of skull fracture, history of kidney stones who lives at home with his was brought in because of confusion and found to have UTI and flu. As per since last Friday patient getting confused and it was getting progressively worsening. He was seeing things and talking to people. Today he had temperature spike. And urine was also foul-smelling and was brought to the ER. In the ER he was found to UTI and also flu. As per no cough. His appetite is down. No nausea or vomiting. Patient had diarrhea about a week ago. But last 2 days he did not move his bowels per . Patient is alert and awake and oriented to name only. Patient denies any headache. Denies chest pain. Denies shortness of breath. Denies cough. Denies abdominal pain. Hemodynamics are okay. Altered mental status Possible toxic metabolic encephalopathy secondary to urinary tract infection, influenza infection Mental status improving, mostly back to baseline Acute UTI, Catheter associated Urine culture: Positive Pseudomonas, Enterococcus Continue daptomycin plus cefepime Will consult ID 05/14 Stable Continue IV Dapto plus cefepime Awaiting ID recommendation Influenza Droplet precautions Tamiflu Supportive care 05/14 stable from respiratory standpoint Hx of Urinary retention s/p Newman On Flomax Follow-up with urology History of dementia History of traumatic brain injury On memantine Monitor for delirium Hyperlipidemia On statin, hold while on Dapto GERD History of GI bleed On famotidine and Protonix History of gout On allopurinol Chronic anemia History of gastric bypass On vitamin B12 shots Hemoglobin 11.2--> 10 monitor History of nonobstructive CAD On statin CKD stage III Present creatinine 1.3 Will follow labs Chronic pain Spinal fusion Currently on morphine ER 15 mg twice daily, will hold if patient gets drowsy DVT prophylaxis Lovenox Disposition pending CODE STATUS DNR/DNI as per my discussion with Admission and Anticipated Discharge Date Admission Date: May 12, 2024 Subjective For UTI, influenza, etc. Seen resting in bed, comfortable, not in distress Feels fine overall Denies shortness of breath, cough, abdominal pain, fevers or chills, problems with the Newman catheter Denies ear pain or problems with hearing Review of Systems Review of Systems: all noted and negative except for above Physical Exam Physical Exam: General- oriented x 3, not in distress, speaks in sentences with no effort or accessory muscle use Eyes- anicteric Neck- no JVD Lungs- clear breath sounds bilaterally Heart- normal rate, regular rhythm; no murmurs Abdomen- normal bowel sounds, nondistended, soft, nontender Extremities- no pretibial edema, no calf tenderness Neuro- alert, oriented x 3; no gross focal neurologic deficits Skin- warm & dry Results & Data Results & Data Vital Signs (Past 12 Hours) Vital Signs Temp Pulse Pulse Resp BP Pulse Ox O2 Del Method 05/14/24 15:41 36.4 C L 92 H 18 122/86 100 Room Air 05/14/24 15:08 92 H 05/14/24 11:02 36.4 C L 98 H 18 119/79 100 Room Air 05/14/24 07:18 67 05/14/24 07:09 36.5 C 78 18 128/83 100 Room Air all noted and reviewed including below
[2024-05-15] MEDS ORDERED: OLANZapine 10 MG/2.1 ML SDV IM PRN (01:23)
[2024-05-15] MEDS: OLANZapine 10 MG/2.1 ML SDV IM STA (01:58)
--- NOTE | 2024-05-15 14:39 | Hospitalist Progress Note ---
Date of Service May 15, 2024 Assessment & Plan (1) AMS (altered mental status): Plan: Per admitting service notes with addendum: 59-year-old male with past medical history significant for gout, dementia, history of traumatic brain injury, history of CAD, history of right upper lobe pulmonary nodule, GERD, status post gastric bypass, history of diverticulitis, CKD stage III, iron deficiency anemia, spinal fusion surgery, history of skull fracture, history of kidney stones who lives at home with his was brought in because of confusion and found to have UTI and flu. As per since last Friday patient getting confused and it was getting progressively worsening. He was seeing things and talking to people. Today he had temperature spike. And urine was also foul-smelling and was brought to the ER. In the ER he was found to UTI and also flu. As per no cough. His appetite is down. No nausea or vomiting. Patient had diarrhea about a week ago. But last 2 days he did not move his bowels per . Patient is alert and awake and oriented to name only. Patient denies any headache. Denies chest pain. Denies shortness of breath. Denies cough. Denies abdominal pain. Hemodynamics are okay. Altered mental status Possible toxic metabolic encephalopathy secondary to urinary tract infection, influenza infection Mental status improving, mostly back to baseline Acute UTI, Catheter associated Urine culture: Positive Pseudomonas, Enterococcus Continue daptomycin plus cefepime Will consult ID 05/14 Stable Continue IV Dapto plus cefepime Awaiting ID recommendation 05/15 remains stable no new issues continue IV Abx awaiting ID recommendations Influenza Droplet precautions Tamiflu Supportive care 05/15 stable from respiratory standpoint Hx of Urinary retention s/p Parra On Flomax Follow-up with urology History of dementia History of traumatic brain injury On memantine Monitor for delirium Hyperlipidemia On statin, hold while on Dapto GERD History of GI bleed On famotidine and Protonix History of gout On allopurinol Chronic anemia History of gastric bypass On vitamin B12 shots Hemoglobin 11.2--> 10 monitor History of nonobstructive CAD On statin CKD stage III Present creatinine 1.3 Will follow labs Chronic pain Spinal fusion Currently on morphine ER 15 mg twice daily, will hold if patient gets drowsy DVT prophylaxis Lovenox Disposition pending CODE STATUS DNR/DNI as per my discussion with Admission and Anticipated Discharge Date Admission Date: May 12, 2024 Subjective ff up for UTI, etc seen resting in bed, comfortable states he feels fine overall no problems with breathing no abdominal pain, fever/chills, problems with parra no other new symptoms Review of Systems Review of Systems: all noted and negative except for above Physical Exam Physical Exam: General- oriented x 3, not in distress, speaks in sentences with no effort or accessory muscle use Eyes- anicteric Neck- no JVD Lungs- clear breath sounds bilaterally, no rales/wheezes Heart- normal rate, regular rhythm; no murmurs Abdomen- normal bowel sounds, nondistended, soft, nontender Extremities- no pretibial edema, no calf tenderness Neuro- alert, oriented x 3; no gross focal neurologic deficits Skin- warm & dry Results & Data Results & Data Vital Signs (Past 12 Hours) Vital Signs Temp Pulse Pulse Resp BP Pulse Ox O2 Del Method 05/15/24 11:10 36.8 C 87 16 121/75 99 Room Air 05/15/24 08:00 Room Air 05/15/24 07:43 36.8 C 71 16 133/83 100 Room Air 05/15/24 07:21 64 all noted and reviewed including below
--- NOTE | 2024-05-16 15:05 | Hospitalist Progress Note ---
Date of Service May 16, 2024 Assessment & Plan (1) AMS (altered mental status): Plan: Per admitting service notes with addendum: 59-year-old male with past medical history significant for gout, dementia, history of traumatic brain injury, history of CAD, history of right upper lobe pulmonary nodule, GERD, status post gastric bypass, history of diverticulitis, CKD stage III, iron deficiency anemia, spinal fusion surgery, history of skull fracture, history of kidney stones who lives at home with his was brought in because of confusion and found to have UTI and flu. As per since last Friday patient getting confused and it was getting progressively worsening. He was seeing things and talking to people. Today he had temperature spike. And urine was also foul-smelling and was brought to the ER. In the ER he was found to UTI and also flu. As per no cough. His appetite is down. No nausea or vomiting. Patient had diarrhea about a week ago. But last 2 days he did not move his bowels per . Patient is alert and awake and oriented to name only. Patient denies any headache. Denies chest pain. Denies shortness of breath. Denies cough. Denies abdominal pain. Hemodynamics are okay. Altered mental status Possible toxic metabolic encephalopathy secondary to urinary tract infection, influenza infection Mental status improving, mostly back to baseline Acute UTI, Catheter associated Urine culture: Positive Pseudomonas, Enterococcus Continue daptomycin plus cefepime Will consult ID 05/14 Stable Continue IV Dapto plus cefepime Awaiting ID recommendation 05/15 remains stable no new issues continue IV Abx awaiting ID recommendations 05/16 Stable Continue IV antibiotics ID recommendations pending for antibiotic management Influenza Droplet precautions Tamiflu Supportive care 05/16 stable from respiratory standpoint Hx of Urinary retention s/p Newman On Flomax Follow-up with urology History of dementia History of traumatic brain injury On memantine Monitor for delirium Hyperlipidemia On statin, hold while on Dapto GERD History of GI bleed On famotidine and Protonix History of gout On allopurinol Chronic anemia History of gastric bypass On vitamin B12 shots Hemoglobin 11.2--> 10 monitor History of nonobstructive CAD On statin CKD stage III Present creatinine 1.3 Will follow labs Chronic pain Spinal fusion Currently on morphine ER 15 mg twice daily, will hold if patient gets drowsy DVT prophylaxis Lovenox Disposition pending CODE STATUS DNR/DNI as per my discussion with Admission and Anticipated Discharge Date Admission Date: May 12, 2024 Subjective Follow-up for UTI, flu, etc. Seen resting in bedside chair, comfortable, not in distress States he feels fine overall Denies shortness of breath, cough No abdominal pain, nausea vomiting, problems with his Newman catheter No fevers or chills No other new symptom Review of Systems Review of Systems: all noted and negative except for above Physical Exam Physical Exam: General- oriented x 3, not in distress, speaks in sentences with no effort or accessory muscle use Eyes- anicteric Neck- no JVD Lungs- clear BS BL Heart- normal rate, regular rhythm; no murmurs Abdomen- normal bowel sounds, nondistended, soft, nontender Newman catheter: Yellow urine Extremities- no pretibial edema, no calf tenderness Neuro- alert, oriented x 3; no gross focal neurologic deficits Skin- warm & dry Results & Data Results & Data Vital Signs (Past 12 Hours) Vital Signs Temp Pulse Pulse Resp BP BP Pulse Ox 05/16/24 11:25 36.7 C 115 H 20 101/64 98 05/16/24 07:58 05/16/24 07:46 36.5 C 66 16 128/86 100 05/16/24 07:09 60 O2 Del Method 05/16/24 11:25 Room Air 05/16/24 07:58 Room Air 05/16/24 07:46 Room Air 05/16/24 07:09 all noted and reviewed including below
--- NOTE | 2024-05-17 15:48 | Infectious Disease Consult ---
Date of Service May 17, 2024 Telehealth Information I performed this visit using a real-time telehealth connection between my location and the patients location ([facility]). After connecting through interactive tele-video, patient was identified by name and date of and/or wristband check.Patient (or authorized healthcare sales representatives) was informed that this was a telemedicine visit and it was being conducted confidentially over secure lines. My office door was closed and no one else was present in the room with me.Patient (or authorized healthcare sales representatives) provided consent to proceed with the visit, expressed an understanding of privacy and security of the telemedicine visit, and gave permission to have a hospital sales representatives in the room in order to assist with the visit and to conduct portions of the visit, as needed. I informed the patient (or authorized healthcare sales representatives) that I reviewed their record and presented the opportunity for them to ask any questions regarding the visit today. The patient agreed to participate. Assessment & Plan (1) Catheter-associated urinary tract infection: (2) Influenza A: (3) AMS (altered mental status): (4) Dementia with behavioral disturbance: Plan - Please continue on IV cefepime and start oral Linezolid 600 mg BID. - When ready for discharge, can step down IV cefepime to oral BACTRIM DS BID along with Linezolid 600 mg PO BID to complete a course of 14 days (For Linezolid, start counting from today and for bactrim, include the cefepime days). History of Present Illness History of Present Illness Mr. Thomas is a 59-year-old man with medical history of dementia, traumatic brain injury, neurogenic bladder with chronic indwelling Newman catheter, CAD, CKD stage 3, and nephrolithiasis who was admitted to [facility] on 05/12/2024 because of acute encephalopathy. On presentation, all of his vitals were within normal limits. Initial workup showed no leukocytosis, UA with more than 50 WBCs and 4+ bacteria, and RVP positive for influenza type a. Chest x-ray on presentation was suggestive of bronchitis without any consolidations. Urine culture grew Pseudomonas and ampicillin susceptible E faecalis. ID team was consulted for further recommendations and to help guide antibiotic treatment. Allergies Allergy/AdvReac Type Severity Reaction Status Date / Time Penicillins Allergy Severe SEE COMMENT Verified 03/09/24 03:24 erythromycin base Allergy Intermediate Itching Verified 03/09/24 03:24 indomethacin Allergy Intermediate HIVES Verified 03/09/24 03:24 neomycin Allergy Intermediate BLISTERS Verified 03/09/24 03:24 vancomycin Allergy Intermediate ITCHING--ALL Verified 03/09/24 03:24 MYCIN DRUGS fentanyl AdvReac Severe "DID NOT Verified 03/09/24 03:24 TOLERATE"-patch- "went nuts" ibuprofen AdvReac Severe Ulcer Verified 03/09/24 03:24 history ketorolac AdvReac Mild NAUSEA Verified 03/09/24 03:24 aspirin AdvReac Unknown "BLEEDING" Verified 03/09/24 03:24 S/P GASTRIC BYPASS Home Medications Medication Instructions Recorded Confirmed Type allopurinol 300 mg tablet 300 mg PO DAILY 05/12/24 05/12/24 History atorvastatin 10 mg tablet 10 mg PO DAILY 05/12/24 05/12/24 History cyclobenzaprine 10 mg tablet 10 mg PO BID 05/12/24 05/12/24 History famotidine 40 mg tablet 40 mg PO HS 05/12/24 05/12/24 History loratadine 10 mg tablet 10 mg PO DAILY 05/12/24 05/12/24 History lorazepam 1 mg tablet 1 mg PO TID PRN Anxiety 05/12/24 05/12/24 History melatonin 10 mg tablet 10 mg PO HS PRN Insomnia 05/12/24 05/12/24 History memantine 10 mg tablet 10 mg PO BID 05/12/24 05/12/24 History mirtazapine 30 mg tablet 30 mg PO HS 05/12/24 05/12/24 History morphine 15 mg tablet,extended 15 mg PO BID 05/12/24 05/12/24 History release olanzapine 5 mg tablet 5 mg PO HS 05/12/24 05/12/24 History pantoprazole 40 mg tablet,delayed 40 mg PO BID 05/12/24 05/12/24 History release tamsulosin 0.4 mg capsule 0.4 mg PO DAILY 05/12/24 05/12/24 History trazodone 50 mg tablet 50 mg PO HS 05/12/24 05/12/24 History Patient History Medical History (Updated 05/12/24 @ 03:35 by Background Daemon) History of fracture of right ankle Hx of fracture of skull 7 FX AND HAS SOME PROBLEMS WITH MEMORY Gastric ulcer Hydronephrosis B/L per [facility] 10/12/18 Surgical History S/P ureteral stent placement History of cystoscopy W/ LITHO/BASKET STONE EXTRACTION - 10/07/18 [facility]. LMA #5. History of surgery on left wrist History of arthroscopy of right shoulder Hx of right knee surgery S/P insertion of intrathecal pump FOLLOW WITH DR LAKIA PACKER FROM [place] History of back surgery UPPER BACK FUSION, 7 DIFFERENT FRACTURES AND MULTIPLE SURGERIES AND IS FUSED multiple revisions H/O inguinal hernia repair H/O lithotripsy S/P exploratory laparotomy (Unknown) 2010 RUPTURED DIVERTICULI S/P appendectomy (Unknown) S/P cholecystectomy (Unknown) S/P gastric bypass mike en y (2010) Family History Mother DM type 2 (diabetes mellitus, type 2) Father DM type 2 (diabetes mellitus, type 2) Social History Smoking Status: Never smoker Tobacco Type: Smokeless Tobacco (Dip or Chew) Second Hand Exposure: No; Do You Dip or Chew Tobacco: No; Tobacco Cessation Education Requested by Patient: No Hx Alcohol Use: No Hx Substance Use: No Preferred Language: [place] Communication Ability: Impaired Communication Ability Comment: Unable to write per spouse & reading difficulty Visual Impairment: No Limitations Security Coordinator Required: No Beliefs That Will Affect Care: None Current Living Situation: Spouse Current Living Situation Comment: lives with Other Information That Helps Us Care for You: No Feels Safe at Home: Yes Safety Concerns: Feels Safe At This Time Assistive Devices: Walker and Wheelchair Results & Data Vital Signs (Past 12 Hours) Vital Signs Temp Pulse Pulse Resp BP Pulse Ox O2 Del Method 05/17/24 15:30 36.8 C 71 20 134/86 98 Room Air 05/17/24 13:47 61 05/17/24 11:24 36.7 C 83 20 98/59 L 99 Room Air 05/17/24 08:00 Room Air 05/17/24 07:42 36.6 C 73 20 118/74 97 Room Air 05/17/24 07:30 61 Laboratory Results Microbiology: 05/11: Urine straight cath culture growing Pseudomonas fluorescens and Enterococcus faecalis Diagnostic Findings Imaging: Chest x-ray on 05/11: Bronchitis, which may be of infectious or inflammatory etiologies. No consolidation or pleural effusion. (1) Catheter-associated urinary tract infection Encounter type: initial encounter Indwelling urinary catheter type: indwelling urethral catheter Qualified Code(s): T83.511A - Infection and inflammatory reaction due to indwelling urethral catheter, initial encounter; N39.0 - Urinary tract infection, site not specified
--- NOTE | 2024-05-17 17:17 | Hospitalist Progress Note ---
Date of Service May 17, 2024 delayed entry date of service noted above Assessment & Plan (1) AMS (altered mental status): Plan: Per admitting service notes with addendum: 59-year-old male with past medical history significant for gout, dementia, history of traumatic brain injury, history of CAD, history of right upper lobe pulmonary nodule, GERD, status post gastric bypass, history of diverticulitis, CKD stage III, iron deficiency anemia, spinal fusion surgery, history of skull fracture, history of kidney stones who lives at home with his was brought in because of confusion and found to have UTI and flu. As per since last Friday patient getting confused and it was getting progressively worsening. He was seeing things and talking to people. Today he had temperature spike. And urine was also foul-smelling and was brought to the ER. In the ER he was found to UTI and also flu. As per no cough. His appetite is down. No nausea or vomiting. Patient had diarrhea about a week ago. But last 2 days he did not move his bowels per . Patient is alert and awake and oriented to name only. Patient denies any headache. Denies chest pain. Denies shortness of breath. Denies cough. Denies abdominal pain. Hemodynamics are okay. Altered mental status Possible toxic metabolic encephalopathy secondary to urinary tract infection, influenza infection Mental status improving, mostly back to baseline Acute UTI, Catheter associated Urine culture: Positive Pseudomonas, Enterococcus Continue daptomycin plus cefepime Will consult ID 05/14 Stable Continue IV Dapto plus cefepime Awaiting ID recommendation 05/15 remains stable no new issues continue IV Abx awaiting ID recommendations 05/16 Stable Continue IV antibiotics ID recommendations pending for antibiotic management 05/17 ID recommendations noted Will discuss with ID regarding linezolid as patient is taking mirtazapine and trazodone Influenza Droplet precautions Tamiflu Supportive care 05/16 stable from respiratory standpoint 05/17 Remained stable Hx of Urinary retention s/p Newman On Flomax Follow-up with urology History of dementia History of traumatic brain injury On memantine Monitor for delirium Hyperlipidemia On statin, hold while on Dapto GERD History of GI bleed On famotidine and Protonix History of gout On allopurinol Chronic anemia History of gastric bypass On vitamin B12 shots Hemoglobin 11.2--> 10 monitor History of nonobstructive CAD On statin CKD stage III Present creatinine 1.3 Will follow labs Chronic pain Spinal fusion Currently on morphine ER 15 mg twice daily, will hold if patient gets drowsy DVT prophylaxis Lovenox Disposition pending CODE STATUS DNR/DNI as per my discussion with Admission and Anticipated Discharge Date Admission Date: May 12, 2024 Subjective Follow-up for UTI, etc. Seen resting in bed, comfortable, not in distress Feels fine overall No new symptom Review of Systems Review of Systems: all noted and negative except for above Physical Exam Physical Exam: General- oriented x 2, not in distress, speaks in sentences with no effort or accessory muscle use Eyes- anicteric Neck- no JVD Lungs- clear breath sounds bilaterally Heart- normal rate, regular rhythm; no murmurs Abdomen- normal bowel sounds, nondistended, soft, nontender Extremities- no pretibial edema, no calf tenderness Neuro- alert, oriented x 2; no gross focal neurologic deficits Skin- warm & dry Results & Data Results & Data Vital Signs (Past 12 Hours) Vital Signs Temp Pulse Pulse Resp BP Pulse Ox O2 Del Method 05/17/24 15:30 36.8 C 71 20 134/86 98 Room Air 05/17/24 13:47 61 05/17/24 11:24 36.7 C 83 20 98/59 L 99 Room Air 05/17/24 08:00 Room Air 05/17/24 07:42 36.6 C 73 20 118/74 97 Room Air 05/17/24 07:30 61 all noted and reviewed including below
[2024-05-18 10:02] LABS: Basophils # (auto) 0.01 K/uL (0.00-0.20); Basophils % (auto) 0.2 %; Eosinophils % (auto) 2.4 %; Hematocrit (blood only) 36.5 % (42.0-52.0); Hemoglobin 11.4 g/dl (14.0-18.0); Immature Granulocytes # (auto) 0.01 K/uL (0.01-0.20); Immature Granulocytes % (auto) 0.2 %; Lymphocytes # (auto) 1.53 K/uL (1.20-3.40); Mean Corpuscular Hemoglobin 27.9 pg (25.0-34.0); Mean Corpuscular Hgb Conc 31.2 g/dL (32.0-36.0); Mean Corpuscular Volume 89.2 fL (80.0-100.0); Mean Platelet Volume 10.3 fL (9.4-12.4); Monocytes # (auto) 0.16 K/uL (0.11-0.59); Monocytes % (auto) 3.9 %; Neutrophils # (auto) 2.32 K/uL (1.40-6.50); Neutrophils % (auto) 56.3 %; Platelet Count 174 K/uL (130-400); RDW Coefficient of Variation 15.1 % (11.5-14.5); RDW Standard Deviation 49.3 fL (36.4-46.3); Red Blood Count 4.09 M/uL (4.70-6.10); White Blood Count 4.13 K/ul (4.8-10.8)
[2024-05-18 10:18] LABS: BUN Creatinine Ratio 21.4 (10-20); Calcium 9.2 mg/dl (8.6-10.3); Creatinine Clr Calc Pharmacy 61.1 ml/min; Potassium 3.7 mmol/L (3.5-5.1)
[2024-05-18] MEDS: LINEZOLID 600 MG TAB PO SCH (12:26)
--- NOTE | 2024-05-18 17:28 | Hospitalist Progress Note ---
Date of Service May 18, 2024 Assessment & Plan (1) AMS (altered mental status): Plan: Per admitting service notes with addendum: 59-year-old male with past medical history significant for gout, dementia, history of traumatic brain injury, history of CAD, history of right upper lobe pulmonary nodule, GERD, status post gastric bypass, history of diverticulitis, CKD stage III, iron deficiency anemia, spinal fusion surgery, history of skull fracture, history of kidney stones who lives at home with his was brought in because of confusion and found to have UTI and flu. As per since last Friday patient getting confused and it was getting progressively worsening. He was seeing things and talking to people. Today he had temperature spike. And urine was also foul-smelling and was brought to the ER. In the ER he was found to UTI and also flu. As per no cough. His appetite is down. No nausea or vomiting. Patient had diarrhea about a week ago. But last 2 days he did not move his bowels per . Patient is alert and awake and oriented to name only. Patient denies any headache. Denies chest pain. Denies shortness of breath. Denies cough. Denies abdominal pain. Hemodynamics are okay. Altered mental status Possible toxic metabolic encephalopathy secondary to urinary tract infection, influenza infection Mental status improving, mostly back to baseline Acute UTI, Catheter associated Urine culture: Positive Pseudomonas, Enterococcus Continue daptomycin plus cefepime Will consult ID 05/14 Stable Continue IV Dapto plus cefepime Awaiting ID recommendation 05/15 remains stable no new issues continue IV Abx awaiting ID recommendations 05/16 Stable Continue IV antibiotics ID recommendations pending for antibiotic management 05/17 ID recommendations noted Will discuss with ID regarding linezolid as patient is taking mirtazapine and trazodone 05/[address] Busch Since patient is improving with cefepime, will not need linezolid anymore Transition from cefepime to Bactrim to complete 14-day course Influenza Droplet precautions Tamiflu Supportive care 05/16 stable from respiratory standpoint 05/17 Remained stable Hx of Urinary retention s/p [place] On Flomax Follow-up with urology History of dementia History of traumatic brain injury On memantine Monitor for delirium Hyperlipidemia On statin, hold while on Dapto GERD History of GI bleed On famotidine and Protonix History of gout On allopurinol Chronic anemia History of gastric bypass On vitamin B12 shots Hemoglobin 11.2--> 10 monitor History of nonobstructive CAD On statin CKD stage III Present creatinine 1.3 Will follow labs Chronic pain Spinal fusion Currently on morphine ER 15 mg twice daily, will hold if patient gets drowsy DVT prophylaxis Lovenox Disposition pending CODE STATUS DNR/DNI as per my discussion with Admission and Anticipated Discharge Date Admission Date: May 12, 2024 Subjective Follow-up for UTI, etc. Seen resting in bed, comfortable, not in distress States he feels fine No shortness of breath, abdominal pain No other new symptom Review of Systems Review of Systems: all noted and negative except for above Physical Exam Physical Exam: General- oriented x 3, not in distress, speaks in sentences with no effort or accessory muscle use Eyes- anicteric Neck- no JVD Lungs- clear breath sounds bilaterally, No wheezing, crackles Heart- normal rate, regular rhythm; no murmurs Abdomen- normal bowel sounds, nondistended, soft, nontender Extremities- no pretibial edema, no calf tenderness Neuro- alert, oriented x 3; no gross focal neurologic deficits Skin- warm & dry Results & Data Results & Data Vital Signs (Past 12 Hours) Vital Signs Temp Pulse Pulse Resp BP Pulse Ox O2 Del Method 05/18/24 15:42 36.7 C 77 18 104/67 98 Room Air 05/18/24 15:03 90 05/18/24 11:21 37.1 C 107 H 18 100/68 97 Room Air 05/18/24 07:58 36.6 C 64 18 127/80 100 Room Air 05/18/24 07:13 59 L all noted and reviewed including below
[2024-05-18] MEDS ORDERED: MELATONIN 3 MG TAB PO SCH (18:00)
[2024-05-18] MEDS: SULFAMETHOXAZOLE/TRIMETHOPRIM DS 800/160MG TAB PO SCH (20:19)
[2024-05-18] MEDS: MIRTAZAPINE TAB 15 MG TAB PO SCH (20:19)
[2024-05-18 23:06] VITALS: O2SAT 99
[2024-05-19 07:54] VITALS: RESP 16; TEMP 98.2
[2024-05-19 10:29] VITALS: BP 101/64; PULSE 80
--- NOTE | 2024-05-19 22:37 | Discharge Summary ---
Discharge Summary Date of Service May 19, 2024 Principal Dx & Hospital Course #1 = Principal Diagnosis (1) AMS (altered mental status): Per admitting service notes with addendum: 59-year-old male with past medical history significant for gout, dementia, history of traumatic brain injury, history of CAD, history of right upper lobe pulmonary nodule, GERD, status post gastric bypass, history of diverticulitis, CKD stage III, iron deficiency anemia, spinal fusion surgery, history of skull fracture, history of kidney stones who lives at home with his was brought in because of confusion and found to have UTI and flu. As per since last Friday patient getting confused and it was getting progressively worsening. He was seeing things and talking to people. Today he had temperature spike. And urine was also foul-smelling and was brought to the ER. In the ER he was found to UTI and also flu. As per no cough. His appetite is down. No nausea or vomiting. Patient had diarrhea about a week ago. But last 2 days he did not move his bowels per . Patient is alert and awake and oriented to name only. Patient denies any headache. Denies chest pain. Denies shortness of breath. Denies cough. Denies abdominal pain. Hemodynamics are okay. Altered mental status Possible toxic metabolic encephalopathy secondary to urinary tract infection, influenza infection Mental status improving, mostly back to baseline Acute UTI, Catheter associated Urine culture: Positive Pseudomonas, Enterococcus Continue daptomycin plus cefepime Will consult ID 05/14 Stable Continue IV Dapto plus cefepime Awaiting ID recommendation 05/15 remains stable no new issues continue IV Abx awaiting ID recommendations 05/16 Stable Continue IV antibiotics ID recommendations pending for antibiotic management 05/17 ID recommendations noted Will discuss with ID regarding linezolid as patient is taking mirtazapine and trazodone 05/[address] Busch Since patient is improving with cefepime, will not need linezolid anymore Transition from cefepime to Bactrim to complete 14-day course Influenza Droplet precautions Tamiflu Supportive care 05/16 stable from respiratory standpoint 05/17 Remained stable Hx of Urinary retention s/p Newman On Flomax Follow-up with urology History of dementia History of traumatic brain injury On memantine Monitor for delirium Hyperlipidemia On statin, hold while on Dapto GERD History of GI bleed On famotidine and Protonix History of gout On allopurinol Chronic anemia History of gastric bypass On vitamin B12 shots Hemoglobin 11.2--> 10 monitor History of nonobstructive CAD On statin CKD stage III Present creatinine 1.3 Will follow labs Chronic pain Spinal fusion Currently on morphine ER 15 mg twice daily, will hold if patient gets drowsy DVT prophylaxis Lovenox Disposition pending CODE STATUS DNR/DNI as per my discussion with Admission HPI Per Admitting Provider 59-year-old male with past medical history significant for gout, dementia, history of traumatic brain injury, history of CAD, history of right upper lobe pulmonary nodule, GERD, status post gastric bypass, history of diverticulitis, CKD stage III, iron deficiency anemia, spinal fusion surgery, history of skull fracture, history of kidney stones who lives at home with his was brought in because of confusion and found to have UTI and flu. As per since last Friday patient getting confused and it was getting progressively worsening. He was seeing things and talking to people. Today he had temperature spike. And urine was also foul-smelling and was brought to the ER. In the ER he was found to UTI and also flu. As per no cough. His appetite is down. No nausea or vomiting. Patient had diarrhea about a week ago. But last 2 days he did not move his bowels per . Patient is alert and awake and oriented to name only. Patient denies any headache. Denies chest pain. Denies shortness of breath. Denies cough. Denies abdominal pain. Hemodynamics are okay. Past medical history. As mentioned above. Past surgical history. Amputation of left second finger. Colonoscopy. EGD. Exploratory laparotomy. ESWL. Laparoscopic gastric bypass [place]. Diagnostic laparoscopy. Laparoscopic cholecystectomy. Appendectomy. Repair of inguinal hernia left side. Repair of knee ligament. Spinal fusion surgery. Upper GI endoscopy. Social history. . No smoking. Alcohol occasional. No drug use. Family history. Father had diabetes. Hypertension. Mother had diabetes. Hypertension. Updated Medication List Medication Instructions Recorded Confirmed Type allopurinol 300 mg tablet 300 mg PO DAILY 05/12/24 05/12/24 History atorvastatin 10 mg tablet 10 mg PO DAILY 05/12/24 05/12/24 History cyclobenzaprine 10 mg tablet 10 mg PO BID 05/12/24 05/12/24 History famotidine 40 mg tablet 40 mg PO HS 05/12/24 05/12/24 History loratadine 10 mg tablet 10 mg PO DAILY 05/12/24 05/12/24 History lorazepam 1 mg tablet 1 mg PO TID PRN Anxiety 05/12/24 05/12/24 History melatonin 10 mg tablet 10 mg PO HS PRN Insomnia 05/12/24 05/12/24 History memantine 10 mg tablet 10 mg PO BID 05/12/24 05/12/24 History mirtazapine 30 mg tablet 30 mg PO HS 05/12/24 05/12/24 History morphine 15 mg tablet,extended 15 mg PO BID 05/12/24 05/12/24 History release olanzapine 5 mg tablet 5 mg PO HS 05/12/24 05/12/24 History pantoprazole 40 mg tablet,delayed 40 mg PO BID 05/12/24 05/12/24 History release tamsulosin 0.4 mg capsule 0.4 mg PO DAILY 05/12/24 05/12/24 History trazodone 50 mg tablet 50 mg PO HS 05/12/24 05/12/24 History L.acidop,casei,lactis,rham-B.lact,ita 1 cap PO DAILY 30 days #30 caps 05/19/24 Rx 625 mg (10 billion cell) capsule (Advanced Probiotic) sulfamethoxazole 800 1 tab PO Q12 7 days #14 tabs 05/19/24 Rx mg-trimethoprim 160 mg tablet (Bactrim DS) Hospital Stay Data Consultations 05/11/24 22:28 ED Decision to Admit Stat 05/14/24 08:25 Consult Infectious Diseases Routine Pending Results Patient Have Any Pending Studies at Discharge: No Discharge Instructions Given to Patient (Per Discharging Provider) PLEASE REFER TO YOUR NEW MEDICATION LIST AND FOLLOW INSTRUCTIONS CAREFULLY. YOUR NEW MEDICATIONS INCLUDE: Bactrim-antibiotic for urinary tract infection Please drink plenty of water. Do not use medications under the class of NSAIDs including ibuprofen, naproxen, etc. as this can cause kidney injury while taking Bactrim. PLEASE CALL YOUR PRIMARY CARE PHYSICIAN OR RETURN TO THE ER IF WITH WORSENING OF SYMPTOMS, INCLUDING Changes in mental status, fevers or chills, abdominal pain, nausea vomiting, etc. FOLLOW UP WITH PRIMARY CARE PHYSICIAN OUTLINED ABOVE.
== END 2024-05-19 12:37 | disposition home or self-care (01) | DRG 698 ==
LOC: ED 20:05 → SUATTDRO 05-12 02:33 → EDINP 05-12 02:33 → 2W 05-13 14:56

== ENCOUNTER 2024-06-05 14:43 | Inpatient (IN) ==
--- OUTSIDE RECORDS SUMMARY | 2024-06-05 14:51 | External Medical Summary | Summary of Care ---
Author Name Unknown Organization [facility] Address [address] [place] [address] Phone [phone] Care Team Providers Care Fashion Supervisor Name Role Phone Charles Mayershawn Primary Care Provider Encounter Details Date Type Department Care Team (Late st Contact Info) Description 06/01/2024 10:00 AM EST [facility] Visit [facility] [address] [facility] [place] [address] Meghna Ramon, LUIS [address] [facility] [place] [address] Allergies Active Allergy Reactions Criticality Noted Date [...] as of this encounter (statuses as of 06/03/2024) Medications Pantoprazole Sodium 40 MG Oral Tablet [...] mouth in the morning. 30 Tablet 11 06/02/2024 10:42 AM EST 4 Active Additional Information Patient taking differently:40 mg Oral Daily(AM),Takes at bedtime, Reported on 05/25/2024 Loratadine 10 MG Oral Capsule Take 1 Capsule by mouth in the morning. Active Atorvastatin Calcium 10 MG Oral Tablet (Lipitor)Indicat ions:Elevated cholesterol Take 1 Tablet by mouth in the morning. 100 Tablet 2 06/02/2024 10:42 AM EST 4 Active Cyanocobalamin 1000 MCG/ML Injection Kit Inject 1,000 mcg into a large muscle every 30 days. 4 Active LORazepam 1 MG Oral Tablet (Ativan) Take 1 Tablet by mouth every 8 hours as needed for Anxiety. 1 Tablet 4 Active Additional Information Patient not taking.Reported on 05/25/2024 Melatonin 10 MG Oral Tablet Take 1 [...] 1 Tablet before bedtime. 60 Tablet 3 05/25/2024 2:56 PM EST 4 Active Memantine HCl 10 MG Oral Tablet (Namenda)Indicat ions:Other chronic pain Take 1 Tablet by mouth in the morning and 1 Tablet before bedtime. 60 Tablet 3 04/20/2024 11:36 AM EST 4 Active Tamsulosin HCl 0.4 MG Oral Capsule (Flomax)Indicati ons:Other chronic pain Take 1 Capsule by mouth in the morning. 30 Capsule 3 04/20/2024 11:36 AM EST 4 Active levoFLOXacin 750 MG Oral [...] Oral Tablet (Desyrel)Indicat ions:Coronary artery disease involving pauma coronary artery of pauma heart without angina pectoris,Stage 3a chronic kidney disease (HCC),Gastroesop hageal reflux disease without esophagitis,Oscar ntia (HCC) Take one-half tablet by mouth at bedtime as needed for insomnia 90 Tablet 3 06/02/2024 10:42 AM EST 5 Active Dexcom G7 Ferryboat Deckhand DeviceIndication s:Severe dementia associated with other underlying disease, with other behavioral disturbance (HCC),Impaired fasting blood sugar Use as directed. Use to monitor blood sugar daily 1 Each 1 5 Active Dexcom G7 SensorIndication s:Severe dementia associated with other underlying disease, with other behavioral disturbance (HCC),Impaired fasting blood sugar Use as directed every 10 days. 12 Each 3 5 Active Probiotic 250 MG Oral Capsule take 1 capsule orally daily for 30 days 30 Capsule 1 05/19/2024 1:01 PM EST 5 Active Sulfamethoxazole -Trimethoprim 800-160 MG Oral Tablet (Bactrim DS) take 1 tablet by mouth every twelve hours for 7 days 14 Tablet 05/19/2024 1:01 PM EST 5 Active Sterile Water for Irrigation Irrigation Solution Irrigate parra once daily and as needed 1000 mL 5 5 Active oxyCODONE-Acetam inophen 5-325 MG Oral Tablet (Percocet)Indica tions:History of trauma to spine Take 1 Tablet by mouth every 4 hours as needed for Pain, Severe. 30 Tablet 05/25/2024 2:56 PM EST 5 Active Morphine Sulfate ER 15 MG Oral Tablet Extended Release (MS Contin)Indicatio ns:Other chronic pain Take 1 Tablet by mouth in the morning and 1 Tablet at noon and 1 Tablet in the evening. 90 Tablet 05/25/2024 2:56 PM EST 5 Active Hospital, Clinic, or Other Facility Administered Medication Ordered Dose Route Frequency Start Date End Date Status Vitamin B-12 (Cyanocobalamin) inj 1,000 mcgIndications:B12 deficiency 1000 mcg IM [id number] 01/28/2024 12/29/2024 Active documented as of this encounter (statuses as of 06/03/2024) Active Problems Problem Noted Date Diagnosed Date Opioid dependence, uncomplicated 05/25/2024 Heart failure 05/25/2024 Unspecified dementia, unspec ified severity, with other behavioral disturbance 05/25/2024 Vascular dementia 05/25/2024 Vascular dementia 05/25/2024 Stage 3 chronic kidney disease 05/25/2024 Essential (primary) hypertension 05/25/2024 Hyperlipidemia 05/25/2024 Generalized anxiety disorder 05/25/2024 History of kidney stones 04/22/2022 Stage 3a chronic kidney disease 02/14/2020 Overview: Per CKD protocol - Per CKD protocol Low ferritin 01/03/2020 History of nonmelanoma skin cancer 10/10/2019 Overview (10/10/2019): BCC central nasal dorsum 09/23 Right upper lobe pulmonary nodule 01/21/2019 History of skull fracture 09/24/2018 History of trauma to spine 09/24/2018 Iron deficiency anemia 04/24/2017 Coronary artery disease invo lving pauma heart without angina pectoris 04/18/2016 Incomplete tear of right rotator cuff 04/15/2016 Overview (04/15/2016): 04/23 Dr Eduardo guerrero. Anxiety 09/28/2014 Diverticulitis of colon 09/16/2014 [facility] OTHER*[id number] 09/14/2009 MEDICATION USE AGREEMENT 05/19/2008 Overview (05/19/2008): See kim GERD (gastroesophageal reflux disease) Gout S/P gastric bypass S/P spinal fusion documented as of this encounter (statuses as of 06/03/2024) Resolved Problems Problem Noted Date Diagnosed Date [...] 06/16/2012 013 Abdominal pain, epigastric 06/16/2012 1 Intestinal postoperative nonabsorption 09/10/2010 05/25/2024 Body mass index (BMI) of 40.0-44.9 in adult 06/26/2010 10/10/2010 Overview (07/18/2015): ICD-10 update of inactive term Backache 03/30/2010 09/24/2018 Encounter for removal of sutures 03/30/2010 04/25/2010 Other specified pre-operative examination 03/07/2010 10/10/2010 Tobacco use disorder 09/18/2009 011 Bariatric Proteinuria Research*[id number] 09/14/2009 12/27/2009 Organic sleep disorder 06/22/200910/10 Morbid [...] as of this encounter (statuses as of 06/03/2024) Immunizations Name Administration Dates Next Due COVID-19 [...] 05/10/2024 Does the household have a re gular [...] ages 0-17 years) Not on file 05/10/2024 Food Insecurity Answer Date Recorded Within the past 12 months, y ou worried that your food would run out before you got the money to buy more. Never true 05/10/19 25 Within the past 12 months, t he food you bought just didn't last and you didn't have money to get more. Never true 05/10/2024 Do you need food for this week? No 05/10/2024 Sex and Gender Information Value Date [...] Sign Reading Time Taken Comments Blood Pressure 120/80 06/01/2024 1:09 PM EST Pulse 82 06/01/2024 1:09 PM EST Temperature 35.6 C (96.1 F) 06/01/2024 1:09 PM ES T Respiratory Rate 18 06/01/2024 1:09 PM EST Oxygen Saturation 94% 06/01/2024 1:09 PM EST Inhaled Oxygen Concentration - - Weight - - Height - - Body Mass Index - - documented in this encounter Progress Notes * Meghna Ramon RN - 06/01/2024 1:03 PM EST Current Concerns: Patient seen for follow up- Alzheimer's dementia, CKD, recurrent UTI's- parra catheter, CAD Upon arrival, states he just woke up. States he had her up late last night- patient restless. Reports mild back pain. VS wnl Lungs clear bilaterally No sob noted No LE edema noted Urine clear yellow- prara intact Encourage to call with concerns of UTI. Voices understanding. Bowels wnl Appetite fair- weight loss of 7lbs Taking fluids well Physical Exam: Physical Exam Constitutional: Appearance: Normal appearance. Cardiovascular: Rate and Rhythm: Regular rhythm. Tachycardia present. Pulses: Normal pulses. Pulmonary: Effort: Pulmonary effort is normal. Breath sounds: Normal breath sounds. Abdominal: General: Bowel sounds are normal. Palpations: Abdomen is soft. Skin: General: Skin is warm and dry. Capillary Refill: Capillary refill takes 2 to 3 seconds. Neurological: General: No focal deficit present. Mental Status: He is alert. Mental status is at baseline. Psychiatric: Mood and Affect: Mood normal. Behavior: Behavior normal. Review of Systems: Review of Systems Constitutional: Negative. Respiratory: Negative. Cardiovascular: Negative. Gastrointestinal: Negative. Genitourinary: Negative. Musculoskeletal: Positive for gait problem. Skin: Negative. Hematological: Negative. Psychiatric/Behavioral: Negative. Care Plan Goal Progress: Patient will remain free of falls. (Progressing) Start: 05/10/24 Expected End: 09/07/24 Orders Placed: No orders of the defined types were placed in this encounter. Medications Given: Care Gaps: Care Gaps Care gaps closed this contact: Education (06/01/241651) Type of education: Clinical/disease (06/01/241651) documented in this encounter Plan of Treatment Upcoming Encounters Date Type Department Care Team (Late st Contact Info) Description 06/03/2024 11:00 AM EST Office Visit Neurology [address] [place] [phone] Naresh Hampton, DO [address] [place] [id number] 06/10/2024 1:00 PM EST Office Visit Urology Reji Haines [address] [place] [address] Ruth Anguiano PA-C [address] [place] [address] 06/15/2024 3:00 PM EDT Home Visit [facility] [place] [address] [place] [address] Gregg Rosen PA-C [address] [place] [address] 06/29/2024 3:00 PM EDT Home Visit [facility] [place] [address] [address] Meghna Ramon, [place] [address] [phone] 10/28/2024 11:40 AM EDT Office Visit Family [facility] [address] [place] [id number] Charles Mayer, [address] [place] [address] Scheduled Procedures Name Priority Associated Diagnoses Date/Ti [...] Additional history exists CKD PHOS USE SMARTSET 71668 11/24/202411/06, 06/11/2023, 12/24/2019 Depression Screening 01/21/2025 01/22/2024 CKD HGB USE SMARTSET [id number] 04/24/202504/24, 04/24/2024, 11/25/2023, Additional history exists Diabetes [...] on patient's age to complete this topic Meningitis B Vaccine (Bexsero/Trumemba) Aged Out No longer eligible based on patient's age to complete this topic documented as of this encounter Medical Devices Not on filedocumented as of this encounter Advance Directives Documents on File Type Date Recorded 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 Care Teams Fashion Supervisor Relationship Specialty Start Date End Date Charles Mayer DO [address] [place] [address] PCP - General Family Medicine 05/26/23 documented as of this encounter
--- OUTSIDE RECORDS SUMMARY | 2024-06-05 14:51 | External Medical Summary | Summary of Care ---
Author Name Unknown Organization [facility] Address [address] [place] [address] Phone [phone] Care Team Providers Care Lease Broker Name Role Phone Charles Mayershawn Primary Care Provider Encounter Details Date Type Department Care Team (Late st Contact Info) Description 05/25/2024 8:30 AM EST Home Visit [facility], [facility] [address] [facility] [place] [address] Meghna Ramon, LUIS [address] [facility] [place] [address] Allergies Active Allergy Reactions Criticality Noted Date [...] as of this encounter (statuses as of 05/26/2024) Medications Pantoprazole Sodium 40 MG Oral Tablet [...] needed for Anxiety. 1 Tablet 01/14/20 Active Additional Information Patient not taking.Reported on [...] Tablet before bedtime. 60 Tablet 3 5 2:56 PM EST 03/17/20 24 Active Memantine HCl [...] 5 11:36 AM EST 03/17/20 24 Active levoFLOXacin 750 MG Oral Tablet [...] 5 8:22 AM EST 04/05/20 24 Active traZODone HCl 50 MG Oral Tablet (Desyrel)Indic ations:Coronar y artery disease involving coquille coronary artery of coquille heart without angina pectoris,Stage 3a chronic kidney disease (HCC),Gastroes ophageal reflux disease without esophagitis,De mentia (HCC) Take one-half tablet by mouth at bedtime as needed for insomnia 90 Tablet 3 5 12:10 PM EST 04/19/19 25 Active Dexcom G7 Porter Baggage DeviceIndicati ons:Severe dementia associated with other underlying disease, with other behavioral disturbance (HCC),Impaired fasting blood sugar Use as directed. Use to monitor blood sugar daily 1 Each 04/19/19 25 Active Dexcom G7 SensorIndicati ons:Severe dementia associated with other underlying disease, with other behavioral disturbance (HCC),Impaired fasting blood sugar Use as directed every 10 days. 12 Each 3 04/19/19 25 Active Probiotic 250 MG Oral Capsule take 1 capsule orally daily for 30 days 30 Capsule 1 5 1:01 PM EST 05/19/19 25 Active Sulfamethoxazo le-Trimethopri m 800-160 MG Oral Tablet (Bactrim DS) take 1 tablet by mouth every twelve hours for 7 days 14 Tablet 5 1:01 PM EST 05/19/19 25 Active Sterile Water for Irrigation Irrigation Solution Irrigate parra once daily and as needed 1000 mL 5 05/20/19 25 Active oxyCODONE-Acet aminophen 5-325 MG Oral Tablet (Percocet)[place] cations:Histor y of trauma to spine Take 1 Tablet by mouth every 4 hours as needed for Pain, Severe. 30 Tablet 5 2:56 PM EST 05/24/19 25 Active oxyCODONE HCl ER 10 MG Oral Tablet ER 12 Hour Abuse-Deterren t (OxyCONTIN)Ind ications:Other chronic pain Take 1 Tablet by mouth in the morning and 1 Tablet before bedtime. 60 Tablet 03/17/20 24 025 Discontinued(M edication List Clean Up) levoFLOXacin 750 MG Oral Tablet (Levaquin) take 1 tablet (750 mg) orally daily for 6 days 6 Tablet 5 12:16 PM EST 04/22/19 25 025 Discontinued(M edication List Clean Up) Morphine Sulfate ER 15 MG Oral Tablet Extended Release (MS Contin)Indicat ions:Other chronic pain Take 1 Tablet by mouth in the morning and 1 Tablet before bedtime. 60 Tablet 5 3:53 PM EST 04/27/19 25 025 Discontinued(R efill) oxyCODONE HCl 10 MG Oral Tablet (Roxicodone)In dications:Othe r chronic pain Take 1 Tablet by mouth in the morning and 1 Tablet before bedtime. 60 Tablet 5 1:01 PM EST 05/10/19 25 025 Discontinued Hospital, Clinic, or Other Facility Administered Medication Ordered Dose Route Frequency Start Date End Date Status Vitamin B-12 (Cyanocobalamin) inj 1,000 mcgIndications:B12 deficiency 1000 mcg IM [id number] 01/28/2024 12/29/2024 Active documented as of this encounter (statuses as of 05/26/2024) Active Problems Problem Noted Date Diagnosed Date [...] anemia 04/24/2017 Coronary artery disease invo lving coquille heart without angina pectoris 04/18/2016 Incomplete tear of right rotator cuff 04/15/2016 Overview (04/15/2016): 04/23 Dr Eduardo guerrero. Anxiety 09/28/2014 Diverticulitis of colon 09/16/2014 [facility] OTHER*[id number] 09/14/2009 MEDICATION USE AGREEMENT 05/19/2008 Overview (05/19/2008): See kim GERD (gastroesophageal reflux disease) Gout S/P gastric bypass S/P spinal fusion documented as of this encounter (statuses as of 05/26/2024) Resolved Problems Problem Noted Date Diagnosed Date [...] Tobacco use disorder 09/18/2009 011 Bariatric Proteinuria Research*[id number] 09/14/2009 12/27/2009 Organic sleep disorder 06/22/200910/10 Morbid [...] as of this encounter (statuses as of 05/26/2024) Immunizations Name Administration Dates Next Due COVID-19 [...] 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 Not on file Not on file documented as of this encounter Last Filed Vital Signs Vital Sign Reading Time Taken Comments Blood Pressure 102/62 05/25/2024 12:28 PM EST Pulse 102 05/25/2024 12:28 PM EST Temperature 36 C (96.8 F) 05/25/2024 12:28 PM EST Respiratory Rate 18 05/25/2024 12:28 PM EST Oxygen Saturation 94% 05/25/2024 12:28 PM EST Inhaled Oxygen Concentration - - Weight - - Height - - Body Mass Index - - documented in this encounter Progress Notes * Meghna Ramon RN - 05/25/2024 12:20 PM EST Current Concerns: Patient seen for LA NENA#1- s/p [facility] stay 05/11/24- UTI- pseudomonas/enterococcus Discharged home on 05/19 with - with Bactrim and probiotic x 1 month. Follow up with urology in one month 06/10/24- for residual urine test to see if they can discontinue parra catheter. Also to discuss circumcision with urology. Has PCP follow up today. Patient alert- oriented x 1- baseline reports he has not had a bowel movement since discharge. Patient to initiate Miralax and senokot today after PCP appointment. Also, discussed starting to incorporate apple juice/ prune juice into diet. VS wnl Lungs clear bilaterally No sob No edema. Parra catheter draining clear yellow urine. Symptoms of UTI- change in mental status, change in color of urine. Appetite decreasing- encourage frequent meals Fluids encouraged does report patient has been complaining of back pain. Pain meds reviewed.Encouraged to discuss with PCP today. Physical Exam: Physical Exam Constitutional: Appearance: Normal appearance. Cardiovascular: Rate and Rhythm: Regular rhythm. Tachycardia present. Pulses: Normal pulses. Pulmonary: Effort: Pulmonary effort is normal. Breath sounds: Normal breath sounds. Abdominal: General: Bowel sounds are normal. Palpations: Abdomen is soft. Musculoskeletal: General: Normal range of motion. Skin: General: Skin is warm and dry. Capillary Refill: Capillary refill takes 2 to 3 seconds. Neurological: Mental Status: He is alert. Mental status is at baseline. Psychiatric: Mood and Affect: Mood normal. Behavior: Behavior normal. Review of Systems: Review of Systems Constitutional: Negative. Respiratory: Negative. Cardiovascular: Negative. Gastrointestinal: Negative. Genitourinary: Negative. Musculoskeletal: Positive for back pain. Skin: Negative. Neurological: Positive for weakness. Hematological: Negative. Psychiatric/Behavioral: Negative. Care Plan Goal Progress: Patient will remain free of falls. (Progressing) Start: 05/10/24 Expected End: 09/07/24 Patient will remain free from infection. (Not Progressing) Start: 05/13/24 Expected End: 09/10/24 Goal Note Recent utilization [facility]- patient is uncircumcised. to discuss with urology. Discussed parra catheter care. Orders Placed: No orders of the defined types were placed in this encounter. Medications Given: Care Gaps: Care Gaps Care gaps closed this contact: Education (05/25/241709) Type of education: Clinical/disease (05/25/241709) documented in this encounter Plan of Treatment Upcoming Encounters Date Type Department Care Team (Late st Contact Info) Description 06/01/2024 10:00 AM EST Home Visit [facility] [place], [address] [place] [address] Meghna Ramon, RN [address] [place] [address] 06/03/2024 9:00 AM EST Home Visit [facility], [facility] [address] [place] [address] Gregg Rosen PA-C [address] [place] [address] 06/03/2024 11:00 AM EST Office Visit Neurology [address] [place] [address] Naresh Hampton, DO [address] [place] [id number] 06/10/2024 1:00 PM EST Office Visit Urology Reji Haines [address] [place] [address] Ruth Anguiano PA-C [address] [place] [address] 10/28/2024 11:40 AM EDT Office Visit Family Practice [facility] [address] [place] [address] Charles Mayer, [address] [facility] [place] [address] Scheduled Procedures Name Priority Associated Diagnoses Date/Ti [...] Additional history exists CKD PHOS USE SMARTSET 03755 11/24/202411/06, 06/11/2023, 12/24/2019 Depression Screening 01/21/2025 01/22/2024 CKD HGB USE SMARTSET 95271 04/24/202504/24, 04/24/2024, 11/25/2023, Additional history exists Diabetes [...] Documents on File Type Date Recorded 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 Care Teams Lease Broker Relationship Specialty Start Date End Date Charles Mayer DO [address] [place] [address] PCP - General Family Medicine 05/26/23 documented as of this encounter
--- OUTSIDE RECORDS SUMMARY | 2024-06-05 14:52 | External Medical Summary | Summary of Care ---
Author Name Unknown Organization [facility] Address [address] [place] [address] Phone [phone] Care Team Providers Care Auger Press Operator Name Role Phone Charles Mayer DO Primary Care Provider Reason for Visit * Reason Onset Date Comments Status Check 05/24/2024 Encounter Details Date Type Department Care Team (Late st Contact Info) Description 05/24/2024 Telephone Family Practice [facility] [address] [place] [address] Charles Mayer DO [address] [place] [address] Status Check Allergies Active Allergy Reactions Criticality Noted Date [...] as of this encounter (statuses as of 05/24/2024) Medications Pantoprazole Sodium 40 MG Oral Tablet [...] Additional Information Patient not taking.Reported on 04/26/2024 levoFLOXacin 750 MG Oral Tablet Take 1 [...] Oral Tablet (Desyrel)Indica tions:Coronary artery disease involving chickaloon coronary artery of chickaloon heart without angina pectoris,Stage 3a chronic kidney disease (HCC),Gastroeso phageal reflux disease without esophagitis,Dem entia (HCC) Take one-half tablet by mouth at bedtime as needed for insomnia 90 Tablet 3 05/24/2024 12:10 PM EST 5 Active Dexcom G7 Group Sales Representative DeviceIndicatio ns:Severe dementia associated with other underlying [...] and 1 Tablet before bedtime. 60 Tablet 05/19/2024 1:01 PM EST 5 Active Probiotic 250 MG Oral Capsule take 1 capsule orally daily for 30 days 30 Capsule 1 05/19/2024 1:01 PM EST 5 Active Sulfamethoxazol e-Trimethoprim 800-160 MG Oral Tablet (Bactrim DS) take 1 tablet by mouth every twelve hours for 7 days 14 Tablet 05/19/2024 1:01 PM EST 5 Active Sterile Water for Irrigation Irrigation Solution Irrigate parra once daily and as needed 1000 mL 5 5 Active oxyCODONE-Aceta minophen 5-325 MG Oral Tablet (Percocet)Indic ations:History of trauma to spine Take 1 Tablet by mouth every 4 hours as needed for Pain, Severe. 30 Tablet 03/24/2024 2:35 PM EST 4 025 Discontin ued(Refil l) Hospital, Clinic, or Other Facility Administered Medication Ordered Dose Route Frequency Start Date End Date Status Vitamin B-12 (Cyanocobalamin) inj 1,000 mcgIndications:B12 deficiency 1000 mcg IM [id number] 01/28/2024 12/29/2024 Active documented as of this encounter (statuses as of 05/24/2024) Active Problems Problem Noted Date Diagnosed Date [...] anemia 04/24/2017 Coronary artery disease invo lving chickaloon heart without angina pectoris 04/18/2016 Incomplete tear of right rotator cuff 04/15/2016 Overview (04/15/2016): 04/23 Dr Eduardo guerrero. Anxiety 09/28/2014 Diverticulitis of colon 09/16/2014 Intestinal postoperative nonabsorption 1 [employer] OTHER*[id number] 09/14/2009 MEDICATION USE AGREEMENT 05/19/2008 Overview (05/19/2008): See kim GERD (gastroesophageal reflux disease) Gout S/P gastric bypass S/P spinal fusion documented as of this encounter (statuses as of 05/24/2024) Resolved Problems Problem Noted Date Diagnosed Date Resolved Date Kidney disease, chronic, sta ge III (GFR 30-59 ml/min) 11/16/2018 02/17/2020 Overview: Per CKD protocol Well adult exam 04/18/2016 09/24/2018 Overview (06/01/2018): ??Need eval hypoglycemia? S/p gastric bypass. Pain mgmt Dr Syed Asencio--[facility] +pain pump 02/22 EGD-Gastric bypass with a [...] Tobacco use disorder 09/18/2009 011 Bariatric Proteinuria Research*[id number] 09/14/2009 12/27/2009 Organic sleep disorder 06/22/200910/10 Morbid [...] as of this encounter (statuses as of 05/24/2024) Immunizations Name Administration Dates Next Due COVID-19 [...] No 05/10/2024 Does the household have a [facility] source of income? 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 Informed pt that RX is available at their pharmacy. Pt verbalized understanding and stated they will check with their pharmacy regarding this medication. And cyclobenzaprine at [facility]. Thank You, Marlene Reed [facility] Recycle Coordinator III [facility] 05/24/2024, 12:28 PM documented in this encounter Plan of Treatment Upcoming Encounters Date Type Department Care Team (Late st Contact Info) Description 05/25/2024 8:30 AM EST Home Visit [facility] at [facility] [address] [place] [address] Meghna Ramon RN [address] [place] [address] 05/25/2024 2:20 PM EST Office Visit Family Practice [facility] [address] [place] [address] Charles Mayer DO [address] [place] [address] 06/03/2024 9:00 AM EST Home Visit is[facility] at [facility] [address] [place] [address] Gregg Rosen PA-C [address] [place] [address] 06/03/2024 11:00 AM EST Office Visit Neurology [address] [place], [place] [address] Naresh Hampton, DO [address] [place] [id number] 06/10/2024 1:00 PM EST Office Visit [facility]rology Reji Haines [address] [facility] [address] [place] [address] Ruth Anguiano PA-C [address] [place] [address] 10/28/2024 11:40 AM EDT Office Visit Family Practice [facility] [address] [place] [address] Charles Mayer, [address] [place] [address] Scheduled Procedures Name Priority Associated Diagnoses Date/Ti [...] Additional history exists CKD PHOS USE SMARTSET 15202 11/24/202411/06, 06/11/2023, 12/24/2019 Depression Screening 01/21/2025 01/22/2024 CKD HGB USE SMARTSET 05671 04/24/202504/24, 04/24/2024, 11/25/2023, Additional history exists Diabetes [...] Documents on File Type Date Recorded 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 Care Teams Auger Press Operator Relationship Specialty Start Date End Date Charles Mayer DO [address] [place] [address] PCP - General Family Medicine 05/26/23 documented as of this encounter
--- OUTSIDE RECORDS SUMMARY | 2024-06-05 14:52 | External Medical Summary | Summary of Care ---
Author Name Unknown Organization [facility] Address [address] [place] [address] Phone [phone] Care Team Providers Care Auto Parts Clerk Name Role Phone Charles Mayer DO Primary Care Provider Reason for Visit * Reason Comments Hospital Follow-Up Pt here for Hosp F/U . Pt admitted to [facility] on 05/12/2024 and discharged on 05/19/2024 for Positive Psudomonas, Enterococcus. Pt to finish Bactrim tomorrow, continues probiotics. Per , off of pain pump since April, having more complaints of back pain per . Pt takes morphine 15 mg twice daily and percocet for breakthrough tim. Encounter Details Date Type Department Care Team (Latest Contact Info) Description 05/25/2024 2:20 PM EST Office Visit [facility] [address] [place] [address] Charles Mayer DO [address] [place] [address] Hospital discharge follow-up*; Alzheimer's disease (HCC); Opioid dependence, uncomplicated (HCC); Heart failure, unspecified HF chronicity, unspecified heart failure type (HCC); Stage 3 chronic kidney disease, unspecified whether stage 3a or 3b CKD (HCC); Essential (primary) hypertension; Atherosclerosis of [place] coronary artery without angina pectoris, unspecified whether [place] or transplanted heart; Hyperlipidemia, unspecified hyperlipidemia type; Generalized anxiety disorder; Coronary artery disease involving [place] coronary artery of [place] heart without angina pectoris; History of trauma to spine; Other chronic pain; At risk for falls Allergies Active Allergy Reactions Criticality Noted Date [...] as of this encounter (statuses as of 05/25/2024) Medications Pantoprazole Sodium 40 MG Oral Tablet [...] 2 4 11:31 AM EDT 11/27/19 Active Cyanocobalamin 1000 MCG/ML Injection Kit Inject [...] for Nausea. 30 Tablet 11 01/28/20 Active Polyethylene Glycol 3350 17 GM Oral [...] Tablet (Desyrel)Indic ations:Coronar y artery disease involving [place] coronary artery of [place] heart without angina pectoris,Stage 3a chronic kidney disease (HCC),Gastroes ophageal reflux disease without esophagitis,De mentia (HCC) Take one-half tablet by mouth at bedtime as needed for insomnia 90 Tablet 3 5 12:10 PM EST 04/19/19 25 Active Dexcom G7 Nut Process Helper DeviceIndicati ons:Severe dementia associated with other underlying disease, with other behavioral disturbance (HCC),Impaired fasting blood sugar Use as directed. Use to monitor blood sugar daily 1 Each 1 04/19/19 25 Active Dexcom G7 SensorIndicati ons:Severe [...] 5 2:56 PM EST 05/24/19 25 Active Morphine Sulfate ER 15 MG Oral Tablet Extended Release (MS Contin)Indicat ions:Other chronic pain Take 1 Tablet by mouth in the morning and 1 Tablet at noon and 1 Tablet in the evening. 90 Tablet 5 2:56 PM EST 05/25/19 25 Active Morphine Sulfate ER 15 MG Oral [...] inj 1,000 mcgIndications:B12 deficiency 1000 mcg IM [id number] 01/28/2024 12/29/2024 Active documented as of this encounter (statuses as of 05/25/2024) Active Problems Problem Noted Date Diagnosed Date [...] anemia 04/24/2017 Coronary artery disease invo lving [place] heart without angina pectoris 04/18/2016 Incomplete tear of right rotator cuff 04/15/2016 Overview (04/15/2016): 04/23 Dr Eduardo guerrero. Anxiety 09/28/2014 Diverticulitis of colon 09/16/2014 [employer]AN RESEARCH OTHER*[id number] 09/14/2009 MEDICATION USE AGREEMENT 05/19/2008 Overview (05/19/2008): See kim GERD (gastroesophageal reflux disease) Gout S/P gastric bypass S/P spinal fusion documented as of this encounter (statuses as of 05/25/2024) Resolved Problems Problem Noted Date Diagnosed Date [...] Tobacco use disorder 09/18/2009 011 Bariatric Proteinuria Research*[id number] 09/14/2009 12/27/2009 Organic sleep disorder 06/22/200910/10 Morbid [...] as of this encounter (statuses as of 05/25/2024) Immunizations Name Administration Dates Next Due COVID-19 [...] Sign Reading Time Taken Comments Blood Pressure 102/76 05/25/2024 2:11 PM EST Pulse 96 05/25/2024 2:11 PM EST Temperature 36.2 C (97.1 F) 05/25/2024 2:11 PM ES T Respiratory Rate 16 05/25/2024 2:11 PM EST Oxygen Saturation 96% 05/25/2024 2:11 PM EST Inhaled Oxygen Concentration - - Weight 71 kg (156 lb 8 oz) 05/25/2024 2:11 PM ES T Height - - Body Mass Index 19.56 04/14/2024 10:20 AM EST documented in this encounter Progress Notes * Marsha Mayerr Iram, DO - 05/25/2024 2:17 PM EST Images from the original note were not included. Assessment and Plan Assessment & Plan Urinary Tract Infections/Hospital Discharge Recurrent UTIs with rapid onset of symptoms including change in urine color and odor, and confusion. Discussed potential contributing factors including indwelling catheter and uncircumcised status. -Continue current UTI management plan. -Discuss potential circumcision with urology at next appointment to reduce UTI risk. Chronic Pain/Opiod dependance Increased pain requiring more frequent use of Percocet. -Increase morphine to 15mg three times a day to maintain consistent pain control and decrease percocet use. -Continue use of Percocet as needed, hopefully less than 1 per day. Constipation Recent overcorrection of bowel regimen leading to diarrhea, now constipated. -Resume Miralax and Senokot, starting slow to avoid diarrhea. -Incorporate prunes or prune juice into daily diet for additional fiber. Alzheimer's Dementia Progressing Decreasing oral intake And having increased confusion at times Has balance issues and weakness Which is causing ambulatory disfunction And difficult with ADLs Now needs someone to help with all bathing And to reduce fall risk would advise using Shower chair in the shower/tub Atherosclerosis of coronary Stable without reports of chest pain Or increased GALLAGHER Stage 3 CKD Continue to monitor Weight Loss Unintentional weight loss of 7 pounds. Likely related to progression of dementia and variable appetite. -Monitor weight and nutritional intake. -Discuss changes with neurologist at next appointment. History of Present Illness Kana Thomas is a 59 year old male that presents for Hospital Follow-Up (Pt here for Hosp F/U. Pt admitted to [facility] on 05/12/2024 and discharged on 05/19/2024 for Positive Psudomonas, Enterococcus. Pt to finish Bactrim tomorrow, continues probiotics. Per , off of pain pump since April, having more complaints of back pain per . Pt takes morphine 15 mg twice daily and percocet for breakthrough tim./) History of Present Illness The patient, with a history of Alzheimer's disease and recurrent UTIs, has been experiencing rapid changes in urine color and odor, indicative of UTIs. The caregiver notes that these changes occur within an hour, leading to confusion in the patient. The patient has a catheter due to bladder emptying issues, which may be contributing to the recurrent UTIs. The patient also has a history of back pain, managed with a pain pump and Percocet. The patient's pain has been increasing recently, leading to increased use of Percocet. The patient has also been experiencing weight loss, with a loss of seven pounds noted. Despite this, the patient's appetite varies, with some days of good eating and others of poor intake. The patient's Alzheimer's disease symptoms are also worsening, with the caregivernoting increased difficulty in managing daily activities. Physical Exam Vitals: 05/25/24 1411 Temp: 97.1 F (36.2 C) Pulse: 96 Resp: 16 SpO2: 96% BP: 102/76 Physical Exam Constitutional: Appearance: Normal appearance. HENT: Head: Normocephalic and atraumatic. Eyes: Extraocular Movements: Extraocular movements intact. Pupils: Pupils are equal, round, and reactive to light. Cardiovascular: Rate and Rhythm: Normal rate. Pulmonary: Effort: Pulmonary effort is normal. Skin: General: Skin is warm and dry. Neurological: Mental Status: He is alert. He is disoriented. Motor: Weakness present. Gait: Gait abnormal. Psychiatric: Mood and Affect: Mood normal. Behavior: Behavior normal. Wrap-Up Follow Up: Return in about 6 months (around 11/22/2024). Time: Total time today was 44 minutes excluding any time spent in the performance of separately billed services. Text in this note was generated using an [employer] documentation service. I discussed the use of a device to record and summarize our discussion today. All persons present during the encounter consented to its use. documented in this encounter Plan of Treatment Upcoming Encounters Date Type Department Care Team (Late st Contact Info) Description 06/01/2024 10:00 AM EST Home Visit [facility] at [address] [place] [id number] Meghna Ramon, LUIS [address] [place] [address] 06/03/2024 9:00 AM EST [facility] Visit [facility] [address] [place] [address] Gregg Rosen PA-C [address] [place] [address] 06/03/2024 11:00 AM EST Office Visit Neurology [address] [place] [address] Naresh Hampton, DO [address] [place] [id number] 06/10/2024 1:00 PM EST Office Visit Urology Reji Hainse [address] [place] [address] Ruth Anguiano PA-C [address] [place] [address] 10/28/2024 11:40 AM EDT Office Visit Family Practice [facility] [address] [place] [address] Charles Mayer, [address] [place] [address] Scheduled Procedures Name Priority Associated Diagnoses Date/Ti [...] Additional history exists CKD PHOS USE SMARTSET 69277 11/24/202411/06, 06/11/2023, 12/24/2019 Depression Screening 01/21/2025 01/22/2024 CKD HGB USE SMARTSET 93588 04/24/202504/24, 04/24/2024, 11/25/2023, Additional history exists Diabetes [...] Hospital discharge follow-up- Primary Other follow-up examination Alzheimer's disease (HCC) Alzheimer's disease Opioid dependence, uncomplicated (HCC) Heart failure, unspecified HF chronicity, unspecified heart failure type (HCC) Stage 3 chronic kidney disease, unspecified whether stage 3a or 3b CKD (HCC) Essential (primary) hypertension Unspecified essential hypertension Atherosclerosis of [place] coronary artery without angina pectoris, unspecified whether [place] or transplanted heart Hyperlipidemia, unspecified hyperlipidemia type Generalized anxiety disorder Coronary artery disease involving [place] coronary artery of [place] heart without angina pectoris History of trauma to spine Other chronic pain At risk for falls Personal history of fall documented in this encounter Advance Directives Documents on File Type Date Recorded Patient Management Associate Expl 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 Care Teams Auto Parts Clerk Relationship Specialty Start Date End Date Charles Mayer DO [address] [place] [address] PCP - General Family Medicine 05/26/23 documented as of this encounter
--- OUTSIDE RECORDS SUMMARY | 2024-06-05 14:52 | External Medical Summary | Summary of Care ---
Author Name Unknown Organization [facility] Address [address] [place] [address] Phone [phone] Care Team Providers Care Alteration Worker Name Role Phone Andrea Mayer DO Primary Care Provider Reason for Referral * Medication Prior Authorization - Pending Review Specialty Diagnoses / Procedures Referred By Contnic t Referred To Contact Diagnoses History of trauma to spine Andrea Mayer DO [address] [place] [address] Phone: tel: fax: Referral ID Status Reason Start Date Expiration Date V isits Requested Visits Authorized [id number] Pending Review [phone] Reason for Visit * Reason Onset Date Comments Medication Refill 05/24/2024 Encounter Details Date Type Department Care Team (Late st Contact Info) Description 05/24/2024 Refill Family Practice [facility] [address] [place] [address] Andrea Mayer DO [address] [place] [address] History of trauma to spine Allergies Active [...] Oral Tablet (Desyrel)Indica tions:Coronary artery disease involving [place] coronary artery of [place] heart without angina pectoris,Stage 3a chronic kidney disease (HCC),Gastroeso phageal reflux disease without esophagitis,Dem entia (HCC) Take one-half tablet by mouth at bedtime as needed for insomnia 90 Tablet 3 05/24/2024 12:10 PM EST 5 Active Dexcom G7 Plate Slitter And Inspector DeviceIndicatio ns:Severe dementia associated with other underlying [...] needed for Pain, Severe. 30 Tablet 5 Active oxyCODONE-Aceta minophen 5-325 MG Oral [...] inj 1,000 mcgIndications:B12 deficiency 1000 mcg IM [id number] 01/28/2024 12/29/2024 Active documented as of this [...] anemia 04/24/2017 Coronary artery disease invo lving [place] heart without angina pectoris 04/18/2016 Incomplete tear of right rotator cuff 04/15/2016 Overview (04/15/2016): 04/23 Dr Eduardo guerrero. Anxiety 09/28/2014 Diverticulitis of colon 09/16/2014 Intestinal postoperative nonabsorption 1 [employer] RESEARCH OTHER*[id number] 09/14/2009 MEDICATION USE AGREEMENT 05/19/2008 Overview (05/19/2008): [...] Tobacco use disorder 09/18/2009 011 Bariatric Proteinuria Research*[id number] 09/14/2009 12/27/2009 Organic sleep disorder 06/22/200910/10 Morbid [...] money to buy more. 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 ThanksAmanda Director Of Physician Practices III [facility] ([facility]) 05/24/2024,1:24 PM * Telephone Encounter - Andrea Mayer DO - 05/24/2024 1:03 PM EST Signed Prescriptions: Disp Refills oxyCODONE-Acetaminophen 5-325 MG Oral Tabl*30 Tab*0 Sig: Take 1 Tablet by mouth every 4 hours as needed for Pain, Severe. Authorizing Provider: ANDREA MAYER * Telephone Encounter - Bibiana Barrios RPh - 05/24/2024 12:40 PM ESTPending Prescriptions: Disp Refills oxyCODONE-Acetaminophen 5-325 MG Oral Tabl*30 Tab*0 Sig: Take 1 Tablet by mouth every 4 hours as needed for Pain, Severe. * Telephone Encounter - Bibiana Barrios RPh - 05/24/2024 12:39 PM EST I have reviewed the patients controlled substance dispensing history in the Prescription Drug Monitoring Program in compliance with the [facility] regulations before prescribing a controlled substance. PDMP checked on 05/24/2024. Pending Prescriptions: Disp Refills oxyCODONE-Acetaminophen 5-325 MG Oral Tab*30 Tab*0 Sig: Take 1 Tablet by mouth every 4 hours as needed for Pain, Severe. Last Visit: 04/14/2024 (in office), Visit date not found (telemedicine) Next Visit: 05/25/2024 Date medication was last filled: 03/24/25 Date medication is due for refill: 03/28/25 Pharmacy: [facility] Is this request for a controlled substance? Yes and Urine Drug Screen Not completed Toxicology results: No results found. However, due to the size of the patient record, not all encounters were searched.Please check Results Review for a complete set of results. Please approve if appropriate. Thanks, Bibiana Barrios PharmD Clinical Pharmacist [facility] ([facility]) [phone] 05/24/2024, 12:39 PM * Telephone Encounter - Marlene Reed PHARM Tech - 05/24/2024 12:26 PM EST Pt has one left. Did you pend patient's preferred pharmacy and medication before forwarding?yes Pharmacy: [facility] Pending Prescriptions: Disp Refills oxyCODONE-Acetaminophen 5-325 MG Oral Tab*30 Tab*0 Sig: Take 1 Tablet by mouth every 4 hours as needed for Pain, Severe. Last Visit: 04/14/2024 (in office), Visit date not found (telemedicine) Next Visit: 05/25/2024 If no future appointments scheduled, and last appointment is greater than a year ago, please schedule patient for a follow-up appointment Last date the medication was ordered: 03/23 Is this request for a controlled substance?Yes, What was the last refill date 03/23 w/ quantity 30 and dosage prn and Urine Drug Screen Not completed Urine [...] Description 05/25/2024 8:30 AM EST Home Visit [facility] [address] [place] [address] Meghna Ramon, LU[place] [address] [place] [address] 05/25/2024 2:20 PM EST Office Visit [facility] [address] [place] [address] Andrea Mayer, [address] [place] [address] 06/03/2024 9:00 AM EST Home Visit [facility] [address] [place] [address] Gregg Rosen PA-C [address] [place] [address] 06/03/2024 11:00 AM EST Office Visit Neurology [address] [place], [place] [address] Naresh Hampton, DO [address] [facility] [place] [address] 06/10/2024 1:00 PM EST Office Visit Urology Reji Haines [address] [place] [address] Ruth Anguiano PA-C [address] [place] [address] 10/28/2024 11:40 AM EDT Office Visit [facility] [address] [place] [address] Andrea Mayer, [address] [place] [address] Scheduled Procedures Name Priority Associated Diagnoses Date/Ti [...] Additional history exists CKD PHOS USE SMARTSET 87415 11/24/202411/06, 06/11/2023, 12/24/2019 Depression Screening 01/21/2025 01/22/2024 CKD HGB USE SMARTSET 44892 04/24/202504/24, 04/24/2024, 11/25/2023, Additional history exists Diabetes [...] Documents on File Type Date Recorded 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 Care Teams Alteration Worker Relationship Specialty Start Date End Date Andrea Mayer DO [address] [place] [address] PCP - General Family Medicine 05/26/23 documented as of this encounter
--- OUTSIDE RECORDS SUMMARY | 2024-06-05 14:52 | External Medical Summary | Summary of Care ---
Author Name Unknown Organization [facility] Address [address] [place] [address] Phone [phone] Care Team Providers Care Moving Picture Producer Name Role Phone Charles Mayer DO Primary Care Provider Encounter Details Date Type Department Care Team (Late st Contact Info) Description 05/18/2024 Telephone Urology Reji [address]aines [address] [place] [address] Services, Scheduling [address] [place] [address] Allergies Active Allergy Reactions Criticality Noted Date [...] as of this encounter (statuses as of 05/20/2024) Medications Pantoprazole Sodium 40 MG Oral Tablet [...] Oral Tablet (Desyrel)Indicat ions:Coronary artery disease involving [place] coronary artery of [place] heart without angina pectoris,Stage 3a chronic kidney disease (HCC),Gastroesop hageal reflux disease without esophagitis,Oscar ntia (HCC) Take one-half tablet by mouth at bedtime as needed for insomnia 90 Tablet 3 5 Active Dexcom G7 Director Medical Affairs DeviceIndication s:Severe dementia associated with other underlying [...] Sterile Water for Irrigation Irrigation Solution Irrigate parar once daily and as needed 1000 mL 5 5 Active Hospital, Clinic, or Other Facility Administered Medication Ordered Dose Route Frequency Start Date End Date Status Vitamin B-12 (Cyanocobalamin) inj 1,000 mcgIndications:B12 deficiency 1000 mcg IM [id number] 01/28/2024 12/29/2024 Active documented as of this encounter (statuses as of 05/20/2024) Active Problems Problem Noted Date Diagnosed Date [...] anemia 04/24/2017 Coronary artery disease invo lving [place] heart without angina pectoris 04/18/2016 Incomplete tear of right rotator cuff 04/15/2016 Overview (04/15/2016): 04/23 Dr Eduardo guerrero. Anxiety 09/28/2014 Diverticulitis of colon 09/16/2014 Intestinal postoperative nonabsorption 1 [employer] OTHER*[id number] 09/14/2009 MEDICATION USE AGREEMENT 05/19/2008 Overview (05/19/2008): See kim GERD (gastroesophageal reflux disease) Gout S/P gastric bypass S/P spinal fusion documented as of this encounter (statuses as of 05/20/2024) Resolved Problems Problem Noted Date Diagnosed Date Resolved Date Kidney disease, chronic, sta ge III (GFR 30-59 ml/min) 11/16/2018 02/17/2020 Overview: Per CKD protocol Well adult exam 04/18/2016 09/24/2018 Overview (06/01/2018): ??Need eval hypoglycemia? S/p gastric bypass. Pain mgmt Dr Syed Asencio--[facility] +pain pump 02/22 EGD-Gastric bypass [...] Tobacco use disorder 09/18/2009 011 Bariatric Proteinuria Research*[id number] 09/14/2009 12/27/2009 Organic sleep disorder 06/22/200910/10 Morbid [...] as of this encounter (statuses as of 05/20/2024) Immunizations Name Administration Dates Next Due COVID-19 [...] No 05/10/2024 Does the household have a [facility] source of income? 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 Rx sent. * Telephone Encounter - Nancy Denton MED ASSIST - 05/20/2024 11:47 AM EST Pt's called stating she was getting notifications for appt jeancarlos. I did cancel appt and let her know we are doing 06/10 instead. She also asked about a script for sterile water to be sent to [facility]. * Telephone Encounter - Lacey Sepulveda LPN - 05/18/2024 2:50 PM EST Called patient's (patient is still admitted). They changed parra catheter [facility]. She states they are trying to get him off IV antibiotics and switch to oral antibiotics prior to discharge. As long as the bacteria "responds" to oral medications. Appointment rescheduled for 06/10/24 at 1pm (waiting for spot to open but it has been requested. * Telephone Encounter - Maria Luisa Anguiano PA-C - 05/18/2024 12:17 PM EST Recommend rescheduling patient for 1 month from now. Okay to cancel appointment on Friday. We can discuss interim health and treatment goals at that time. I would ensure catheter was changed at hospital and/or every 30 days. Thanks! * Telephone Encounter - Vianney Swanson LPN - 05/18/2024 11:07 AM EST Pt scheduled for 8 wk f/u on 05/21/24. Do you want to push it out since last was admitted? * Telephone Encounter - Fang Lozano OSA - 05/18/2024 11:04 AM EST Patient has been at [facility] week for a UTI - Patient is due for an office visit withMaria Luisa on Friday for a void trial, but since he has been in the hospital is asking if they should keep this appt or not. Please advise and contact back at [phone]. documented in this encounter Plan of Treatment Upcoming Encounters Date Type Department Care Team (Late st Contact Info) Description 05/25/2024 8:30 AM EST Home Visit [facility] [address] [place] [address] Meghna Ramon RN [address] [place] [address] 05/25/2024 2:20 PM EST Office Visit Family Practice [facility] [address] [place] [address] Charles Mayer DO [address] [place] [address] 06/03/2024 9:00 AM EST [facility] [place] [address] [place] [address] Gregg Rosen PA-C [address] [place] [address] 06/03/2024 11:00 AM EST Office Visit Neurology [address], [place] [address] Naresh Hampton, DO [address] [facility] [place] [address] 10/28/2024 11:40 AM EDT Office Visit [facility] [address] [place] [address] Charles Mayer, [address] [place] [address] Scheduled Procedures Name Priority Associated Diagnoses Date/Ti [...] Additional history exists CKD PHOS USE SMARTSET 99826 11/24/202411/06, 06/11/2023, 12/24/2019 Depression Screening 01/21/2025 01/22/2024 CKD HGB USE SMARTSET 31331 04/24/202504/24, 04/24/2024, 11/25/2023, Additional history exists Diabetes [...] Documents on File Type Date Recorded Patient Cd Technician Expl 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 Care Teams Moving Picture Producer Relationship Specialty Start Date End Date Charles Mayer DO [address] [place] [address] [place] [address] PCP - General Family Medicine 05/26/23 documented as of this encounter
--- OUTSIDE RECORDS SUMMARY | 2024-06-05 14:52 | External Medical Summary | Summary of Care ---
Author Name Unknown Organization [facility] Address [address] [place] [address] Phone [phone] Care Team Providers Care Programming Manager Name Role Phone Charles Mayer DO Primary Care Provider Reason for Visit * Reason Onset Date Comments Status Check 05/24/2024 Encounter Details Date Type Department Care Team (Late st Contact Info) Description 05/24/2024 Telephone Family Practice [facility] [address] [place] [address] Charles Mayer DO [address] [place] [address] Status Check Allergies Active Allergy Reactions Criticality [...] Oral Tablet (Desyrel)Indica tions:Coronary artery disease involving [place] coronary artery of [place] heart without angina pectoris,Stage 3a chronic kidney disease (HCC),Gastroeso phageal reflux disease without esophagitis,Dem entia (HCC) Take one-half tablet by mouth at bedtime as needed for insomnia 90 Tablet 3 05/24/2024 12:10 PM EST 5 Active Dexcom G7 Electronic Design Engineer DeviceIndicatio ns:Severe dementia associated with other underlying [...] inj 1,000 mcgIndications:B12 deficiency 1000 mcg IM [id number] 01/28/2024 12/29/2024 Active documented as of this [...] anemia 04/24/2017 Coronary artery disease invo lving [place] heart without angina pectoris 04/18/2016 Incomplete tear of right rotator cuff 04/15/2016 Overview (04/15/2016): 04/23 Dr Eduardo guerrero. Anxiety 09/28/2014 Diverticulitis of colon 09/16/2014 Intestinal postoperative nonabsorption 1 CALLAHAN RESEARCH OTHER*[id number] 09/14/2009 MEDICATION USE AGREEMENT 05/19/2008 Overview (05/19/2008): [...] S/p gastric bypass. Pain mgmt Dr Syed Asencio--[facility] +pain pump 02/22 EGD-Gastric [...] Tobacco use disorder 09/18/2009 011 Bariatric Proteinuria Research*[id number] 09/14/2009 12/27/2009 Organic sleep disorder 06/22/200910/10 Morbid [...] No 05/10/2024 Does the household have a [facility] source of income? 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 Informed pt that RX is available at their pharmacy. Pt verbalized understanding and stated they will check with their pharmacy regarding this medication. And cyclobenzaprine at [facility]. Thank You, Marlene Reed [facility] Aircraft Launch And Recovery Technician III [facility] Services ([facility]) 05/24/2024, 12:28 PM documented in this encounter Plan of Treatment Upcoming Encounters Date Type Department Care Team (Late st Contact Info) Description 05/25/2024 8:30 AM EST Home Visit Rafaela at [facility] [address] [address] Meghna Ramon RN [address] [address] 05/25/2024 2:20 PM EST Office Visit Family Practice [facility] [address] [address] Charles Mayer DO [address] [address] 06/03/2024 9:00 AM EST Home Visit ising at [facility] [address] [place] [address] Gregg Rosen PA-C [address] [place] [address] 06/03/2024 11:00 AM EST Office Visit Neurology [address], [place] [address] Naresh Hampton, DO [address] [place] [id number] 06/10/2024 1:00 PM EST Office Visit Urology Reji Haines [address] [facility] [address] [address] Ruth Anguiano PA-C [address] [address] 10/28/2024 11:40 AM EDT Office Visit Family Practice [facility] [address] [place] [address] Charles Mayer, [address] [place] [address] Scheduled Procedures Name Priority Associated Diagnoses Date/Ti [...] Additional history exists CKD PHOS USE SMARTSET 25621 11/24/202411/06, 06/11/2023, 12/24/2019 Depression Screening 01/21/2025 01/22/2024 CKD HGB USE SMARTSET 83928 04/24/202504/24, 04/24/2024, 11/25/2023, Additional history exists Diabetes [...] Documents on File Type Date Recorded Patient Mold Shaker Expl 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 Care Teams Programming Manager Relationship Specialty Start Date End Date Charles Mayer DO [address] [place] [address] PCP - General Family Medicine 05/26/23 documented as of this encounter
--- OUTSIDE RECORDS SUMMARY | 2024-06-05 14:52 | External Medical Summary | Summary of Care ---
Author Name Unknown Organization [facility] Address [address] [place] [address] Phone [phone] Care Team Providers Care Pouch Making Machine Operator Name Role Phone Charles Mayer DO Primary Care Provider Encounter Details Date Type Department Care Team (Late st Contact Info) Description 05/18/2024 Telephone Urology Reji Haines [address] [place] [address] Services, Scheduling [address] [place] [address] Allergies Active Allergy Reactions Criticality Noted Date [...] Oral Tablet (Desyrel)Indicat ions:Coronary artery disease involving [place] coronary artery of [place] heart without angina pectoris,Stage 3a chronic kidney disease (HCC),Gastroesop hageal reflux disease without esophagitis,Oscar ntia (HCC) Take one-half tablet by mouth at bedtime as needed for insomnia 90 Tablet 3 5 Active Dexcom G7 Welfare Specialist DeviceIndication s:Severe dementia associated with other underlying [...] inj 1,000 mcgIndications:B12 deficiency 1000 mcg IM [id number] 01/28/2024 12/29/2024 Active documented as of this [...] anemia 04/24/2017 Coronary artery disease invo lving [place] heart without angina pectoris 04/18/2016 Incomplete tear of right rotator cuff 04/15/2016 Overview (04/15/2016): 04/23 Dr Eduardo guerrero. Anxiety 09/28/2014 Diverticulitis of colon 09/16/2014 Intestinal postoperative nonabsorption 1 CALLAHAN RESEARCH OTHER*[id number] 09/14/2009 MEDICATION USE AGREEMENT 05/19/2008 Overview (05/19/2008): [...] Tobacco use disorder 09/18/2009 011 Bariatric Proteinuria Research*[id number] 09/14/2009 12/27/2009 Organic sleep disorder 06/22/200910/10 Morbid [...] No 05/10/2024 Does the household have a [facility] source of income? (Household - for [...] for sterile water to be sent to [facility]. * Telephone Encounter - Lacey Sepulveda LPN - 05/18/2024 2:50 PM EST Called patient's (patient is still admitted). [facility]. She states they are trying to get [...] 11:04 AM EST Patient has been at [facility] since last week for a UTI - Patient is due for an office visit withMaria Luisa on Friday for a void trial, but since he has been in the hospital is asking if they should keep this appt or not. Please advise and contact back at [phone]. documented in this encounter Plan of Treatment Upcoming Encounters Date Type Department Care Team (Late st Contact Info) Description 05/25/2024 8:30 AM EST Home Visit Rafaela at [facility] [address] [address] Meghna Ramon RN [address] [place] [address] 05/25/2024 2:20 PM EST Office Visit Family Practice [facility] [address] [address] Charles Mayer DO [address] [address] 06/03/2024 9:00 AM EST Home Visit [facility] [place] [address] [address] Gregg Rosen PA-C [address] [address] 06/03/2024 11:00 AM EST Office Visit Neurology [address], [place] [address] Naresh Hampton, DO [address] [facility] [place] [address] 10/28/2024 11:40 AM EDT Office Visit [facility] [address] [place] [address] Charles aMyer, [address] [place] [address] Scheduled Procedures Name Priority Associated Diagnoses Date/Ti [...] Additional history exists CKD PHOS USE SMARTSET 63889 11/24/202411/06, 06/11/2023, 12/24/2019 Depression Screening 01/21/2025 01/22/2024 CKD HGB USE SMARTSET 51238 04/24/202504/24, 04/24/2024, 11/25/2023, Additional history exists Diabetes [...] Documents on File Type Date Recorded Patient Digital Strategy Manager Expl 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 Care Teams Pouch Making Machine Operator Relationship Specialty Start Date End Date Charles Mayer DO [address] [place] [address] [place] [address] PCP - General Family Medicine 05/26/23 documented as of this encounter
--- OUTSIDE RECORDS SUMMARY | 2024-06-05 14:52 | External Medical Summary | Summary of Care ---
Author Name Unknown Organization [facility] Address [address] [place] [address] Phone [phone] Care Team Providers Care Personal Financial Representative Name Role Phone Charles Mayer DO Primary Care Provider Encounter Details Date Type Department Care Team (Late st Contact Info) Description 05/18/2024 Telephone Urology Reji Haines [address] [place] [address] Services, Scheduling [address] [place] [address] Allergies Active Allergy Reactions Criticality Noted Date [...] (Desyrel)Indicat ions:Coronary artery disease involving [place] coronary artery of [place] heart without angina pectoris,Stage 3a chronic kidney disease (HCC),Gastroesop hageal reflux disease without esophagitis,Oscar ntia (HCC) Take one-half tablet by mouth at bedtime as needed for insomnia 90 Tablet 3 5 Active Dexcom G7 Plans Examiner DeviceIndication s:Severe dementia associated with other underlying [...] inj 1,000 mcgIndications:B12 deficiency 1000 mcg IM [id number] 01/28/2024 12/29/2024 Active documented as of this [...] Coronary artery disease invo lving [place] heart without angina pectoris 04/18/2016 Incomplete tear of right rotator cuff 04/15/2016 Overview (04/15/2016): 04/23 Dr Eduardo guerrero. Anxiety 09/28/2014 Diverticulitis of colon 09/16/2014 Intestinal postoperative nonabsorption 1 CALLAHAN RESEARCH OTHER*[id number] 09/14/2009 MEDICATION USE AGREEMENT 05/19/2008 Overview (05/19/2008): [...] Tobacco use disorder 09/18/2009 011 Bariatric Proteinuria Research*[id number] 09/14/2009 12/27/2009 Organic sleep disorder 06/22/200910/10 Morbid [...] No 05/10/2024 Does the household have a [facility] source of income? 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 * Telephone Encounter - Lacey Sepulveda LPN - 05/18/2024 2:50 PM EST Called patient's (patient is still admitted). They [facility] parra [facility]. She states they are trying to [...] 11:04 AM EST Patient has been at [facility] since last week for a UTI - Patient is due for an office visit withMaria Luisa on Friday for a void trial, but since he has been in the hospital is asking if they should keep this appt or not. Please advise and contact back at [phone]. documented in this encounter Plan of Treatment Upcoming Encounters Date Type Department Care Team (Late st Contact Info) Description 05/20/2024 3:20 PM EST Scheduled Telephone Care Coordination and Integration [address] [place] [address] Olena Schultz, Community Health Telecommunications Consultant [address] [place] [address] 05/25/2024 8:30 AM EST [facility] [address] [address] Meghna Ramon, [place] [address] [place] [address] 05/25/2024 2:20 PM EST Office Visit Family Practice [facility] [address] [address] Charles Mayer DO [address] [place] [address] 06/03/2024 9:00 AM EST [facility] [place] [address] [facility] [place] [address] Gregg Rosen PA-C [address] [place] [address] 06/03/2024 11:00 AM EST Office Visit Neurology [address], [place] [address] Naresh Hampton, DO [address] [place] [address] 10/28/2024 11:40 AM EDT Office Visit Family [facility] [address] [place] [address] Charles Mayer, DO [address] [place] [address] Scheduled Procedures Name Priority Associated Diagnoses Date/Ti [...] Additional history exists CKD PHOS USE SMARTSET 21264 11/24/202411/06, 06/11/2023, 12/24/2019 Depression Screening 01/21/2025 01/22/2024 CKD HGB USE SMARTSET 55355 04/24/202504/24, 04/24/2024, 11/25/2023, Additional history exists Diabetes [...] Documents on File Type Date Recorded Patient Pharmacy Laboratory Technician Expl 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 Care Teams Personal Financial Representative Relationship Specialty Start Date End Date Charles Mayer DO [address] [place] [address] PCP - General Family Medicine 05/26/23 documented as of this encounter
--- OUTSIDE RECORDS SUMMARY | 2024-06-05 14:52 | External Medical Summary | Summary of Care ---
Author Name Unknown Organization [facility] Address [address] [place] [address] Phone [phone] Care Team Providers Care Production Control Supervisor Name Role Phone Andrea Mayer DO Primary Care Provider Reason for Referral * Medication Prior Authorization - Pending Review Specialty Diagnoses / Procedures Referred By Contnic t Referred To Contact Diagnoses History of trauma to spine Andrea Mayer DO [address] [place] [address] Phone: tel: fax: Referral ID Status Reason Start Date Expiration Date V isits Requested Visits Authorized [id number] Pending Review [id number] Reason for Visit * Reason Onset Date Comments Medication Refill 05/24/2024 Encounter Details Date Type Department Care Team (Late st Contact Info) Description 05/24/2024 Refill Family Practice [facility] [address] [place] [address] Andrea Mayer DO [address] [place] [address] History of trauma to spine Allergies Active [...] 12:10 PM EST 5 Active Dexcom G7 Kennel Manager DeviceIndicatio ns:Severe dementia associated with other underlying [...] inj 1,000 mcgIndications:B12 deficiency 1000 mcg IM [id number] 01/28/2024 12/29/2024 Active documented as of this [...] 09/16/2014 Intestinal postoperative nonabsorption 1 CALLAHAN RESEARCH OTHER*[id number] 09/14/2009 MEDICATION USE AGREEMENT 05/19/2008 Overview (05/19/2008): [...] gastric bypass. 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 ThanksAmanda Ed Case Manager III [facility] ([facility]) 05/24/2024,1:24 [...] Drug Monitoring Program in compliance with the [facility] regulations before prescribing a controlled substance. PDMP checked on 05/24/2024. Pending Prescriptions: Disp Refills oxyCODONE-Acetaminophen 5-325 MG Oral Tab*30 Tab*0 Sig: Take 1 Tablet by mouth every 4 hours as needed for Pain, Severe. Last Visit: 04/14/2024 (in office), Visit date not found (telemedicine) Next Visit: 05/25/2024 Date medication was last filled: 03/24/25 Date medication is due for refill: 03/28/25 Pharmacy: [facility] Is this request for a controlled substance? Yes and Urine Drug Screen Not completed Toxicology results: No results found. However, due to the size of the patient record, not all encounters were searched.Please check Results Review for a complete set of results. Please approve if appropriate. Thanks, Bibiana Barrios PharmD Clinical Pharmacist [facility] Services ([facility]) [phone] 05/24/2024, 12:39 PM * Telephone Encounter - Marlene Reed PHARM Tech - 05/24/2024 12:26 PM EST Pt has one left. Did you pend patient's preferred pharmacy and medication before forwarding?yes Pharmacy: [facility] Pending Prescriptions: Disp Refills oxyCODONE-Acetaminophen 5-325 [...] AM EST [facility] [address] [address] Meghna Ramon, LU[place] [address] [address] 05/25/2024 2:20 PM EST Office Visit [facility] [address] [address] Andrea Mayer, [address] [address] 06/03/2024 9:00 AM EST [facility] Visit [facility] [address] [place] [address] Gregg Rosen PA-C [address] [address] 06/03/2024 11:00 AM EST Office Visit Neurology [address], [place] [address] Naresh Hampton, DO [address] [facility] [place] [address] 06/10/2024 1:00 PM EST Office Visit Urology Reji Haines [address] [place] [address] Ruth Anguiano PA-C [address] [place] [address] 10/28/2024 11:40 AM EDT Office Visit [facility] [address] [address] Andrea Mayer, [address] [place] [address] Scheduled Procedures Name Priority Associated Diagnoses Date/Ti [...] Additional history exists CKD PHOS USE SMARTSET 56855 11/24/202411/06, 06/11/2023, 12/24/2019 Depression Screening 01/21/2025 01/22/2024 CKD HGB USE SMARTSET 50295 04/24/202504/24, 04/24/2024, 11/25/2023, Additional history exists Diabetes [...] Documents on File Type Date Recorded Patient Sound Effects Supervisor Expl 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 Care Teams Production Control Supervisor Relationship Specialty Start Date End Date Andrea Mayer DO [address] [address] PCP - General Family Medicine 05/26/23 documented as of this encounter
--- OUTSIDE RECORDS SUMMARY | 2024-06-05 14:52 | External Medical Summary | Summary of Care ---
Author Name Unknown Organization [facility] Address [address] [place] [address] Phone [phone] Care Team Providers Care Lorry Weigher Name Role Phone Charles Mayer Primary Care Provider Encounter Details Date Type Department Care Team (Late st Contact Info) Description 05/20/2024 3:20 PM EST Scheduled Telephone Care Coordination and Integration [address] [place], [place] [phone] Olena Schultz, Community Health Screedman/Laborer [address], [place] [id number] Allergies Active Allergy Reactions Criticality Noted Date [...] Oral Tablet (Desyrel)Indicat ions:Coronary artery disease involving [place] coronary artery of [place] heart without angina pectoris,Stage 3a chronic kidney disease (HCC),Gastroesop hageal reflux disease without esophagitis,Oscar ntia (HCC) Take one-half tablet by mouth at bedtime as needed for insomnia 90 Tablet 3 5 Active Dexcom G7 Extermination Inspector DeviceIndication s:Severe dementia associated with other [...] Tablet 05/19/2024 1:01 PM EST 5 Active Hospital, Clinic, or Other Facility Administered Medication Ordered Dose Route Frequency Start Date End Date Status Vitamin B-12 (Cyanocobalamin) inj 1,000 mcgIndications:B12 deficiency 1000 mcg IM [id number] 01/28/2024 12/29/2024 Active documented as of this [...] anemia 04/24/2017 Coronary artery disease invo lving [place] heart without angina pectoris 04/18/2016 Incomplete tear of right rotator cuff 04/15/2016 Overview (04/15/2016): 04/23 Dr Eduardo guerrero. Anxiety 09/28/2014 Diverticulitis of colon 09/16/2014 Intestinal postoperative nonabsorption 1 CALLAHAN RESEARCH OTHER*[id number] 09/14/2009 MEDICATION USE AGREEMENT 05/19/2008 Overview (05/19/2008): [...] S/p gastric bypass. 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 reported that patient was in the hospital and just got home yesterday and they are not ready to set it up yetdue to his hospitalization and with just getting home yesterday. reported that she called [facility] and reported this and plans to call back tomorrow to get it set up and to schedule someone to com e out and help set it up if needed. is not able to set up today due to appointments and being out of the house today. This CHW encouraged patient to reach out if assistance is needed for [facility] equipment set up. Olena Schultz- Community Health Worker 1 Support Services/[facility] [employer] [email or web address] documented in this encounter Plan of Treatment Upcoming Encounters Date Type Department Care Team (Late st Contact Info) Description 05/25/2024 8:30 AM EST [facility] [address] [address] Meghna Ramon RN [address] [address] 05/25/2024 2:20 PM EST Office Visit Family Practice [facility] [address] [address] Charles Mayer DO [address] [place] [address] 06/03/2024 9:00 AM EST [facility] [place] [address] [facility] [place] [address] Gregg Rosen PA-C [address] [place] [address] 06/03/2024 11:00 AM EST Office Visit Neurology [address], [place] [address] Naresh Hampton, DO [address] [place] [address] 10/28/2024 11:40 AM EDT Office Visit [facility] [address] [place] [address] Charles Mayer, DO [address] [place] [address] Scheduled Procedures Name Priority Associated Diagnoses Date/Ti [...] Additional history exists CKD PHOS USE SMARTSET 54589 11/24/202411/06, 06/11/2023, 12/24/2019 Depression Screening 01/21/2025 01/22/2024 CKD HGB USE SMARTSET 20167 04/24/202504/24, 04/24/2024, 11/25/2023, Additional history exists Diabetes [...] Documents on File Type Date Recorded Patient Hook Puller Expl 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 Care Teams Lorry Weigher Relationship Specialty Start Date End Date Charles Mayer DO [address] [place] [address] PCP - General Family Medicine 05/26/23 documented as of this encounter
--- OUTSIDE RECORDS SUMMARY | 2024-06-05 14:53 | External Medical Summary | Summary of Care ---
Author Name Unknown Organization [facility] Address [address] [place] [address] Phone [phone] Care Team Providers Care Technology Services Manager Name Role Phone Charles Mayer Primary Care Provider Reason for Visit * Reason Onset Date Comments Appointment 05/17/2024 Encounter Details Date Type Department Care Team (Late st Contact Info) Description 05/17/2024 Telephone Neurology Chad Joyner, [place] [address] [place] [phone] Services, Scheduling [address] [place] [address] Appointment Allergies Active Allergy Reactions Criticality Noted [...] as of this encounter (statuses as of 05/18/2024) Medications Pantoprazole Sodium 40 MG Oral Tablet [...] Oral Tablet (Desyrel)Indicat ions:Coronary artery disease involving [place] coronary artery of [place] heart without angina pectoris,Stage 3a chronic kidney disease (HCC),Gastroesop hageal reflux disease without esophagitis,Oscar ntia (HCC) Take one-half tablet by mouth at bedtime as needed for insomnia 90 Tablet 3 5 Active Dexcom G7 Advisor Consultant DeviceIndication s:Severe dementia associated with other underlying [...] inj 1,000 mcgIndications:B12 deficiency 1000 mcg IM [id number] 01/28/2024 12/29/2024 Active documented as of this encounter (statuses as of 05/18/2024) Active Problems Problem Noted Date Diagnosed Date [...] anemia 04/24/2017 Coronary artery disease invo lving [place] heart without angina pectoris 04/18/2016 Incomplete tear of right rotator cuff 04/15/2016 Overview (04/15/2016): 04/23 Dr Eduardo guerrero. Anxiety 09/28/2014 Diverticulitis of colon 09/16/2014 Intestinal postoperative nonabsorption 1 CALLAHAN RESEARCH OTHER*[id number] 09/14/2009 MEDICATION USE AGREEMENT 05/19/2008 Overview (05/19/2008): See kim GERD (gastroesophageal reflux disease) Gout S/P gastric bypass S/P spinal fusion documented as of this encounter (statuses as of 05/18/2024) Resolved Problems Problem Noted Date Diagnosed Date Resolved Date Kidney disease, chronic, sta ge III (GFR 30-59 ml/min) 11/16/2018 02/17/2020 Overview: Per CKD protocol Well adult exam 04/18/2016 09/24/2018 Overview (06/01/2018): ??Need eval hypoglycemia? S/p gastric bypass. Pain mgmt Dr Syed Asencio--[facility] +pain pump 02/22 EGD-Gastric bypass with [...] Tobacco use disorder 09/18/2009 011 Bariatric Proteinuria Research*[id number] 09/14/2009 12/27/2009 Organic sleep disorder 06/22/200910/10 Morbid [...] as of this encounter (statuses as of 05/18/2024) Immunizations Name Administration Dates Next Due COVID-19 [...] No 05/10/2024 Does the household have a [facility] source of income? 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 Hampton What is the concern or issue they are having: pt calling in pt has an acute appt scheduled for05/20/[address] Hampton pt states pt is currently in hospital and is not sure when he will get out, asking if you can give her a call to reschedule this appt Phone number for nurse to call back: [phone] Verify Pharmacy information is correct. Form to be used for established patients only (not new patients) Clinic has 24-48 hours to respond to caller. If caller is calling back before timeframe with any changes in condition/issues reported, update TEand re-route to appropriate pool If caller is calling back before timeframe- update TE- no need to re-route [facility] Neurology Pool- [facility] Neuro Transfer And Line Up Worker- [id number] (All messages get sent to the [facility]) Neurology Pool Numbers- [place] and [facility] patients - follow normal process Ops req [facility] Neurology ([place])- [id number] Ops req [place] Neurology ([place]- [facility] and [facility] clinics Only)- [id number] Neurosurgery Pool Numbers- [place] patients- follow normal process Ops req Neurosurgery [facility] ([place])- [id number] Ops req Neurosurgery [facility] ([place] Only) [id number] documented in this encounter Plan of Treatment Upcoming Encounters Date Type Department Care Team (Late st Contact Info) Description 05/20/2024 3:20 PM EST Scheduled Telephone Care Coordination and Integration [address] [place] [address] Olena Schlutz Community [facility] Electric Sealing Machine Operator [address] [place] [address] 05/21/2024 3:00 PM EST Office Visit Urology Reji Haines [address] [address] Ruth Anguiano PA-C [address] [address] 05/25/2024 8:30 AM EST [facility], [facility] [address] [place] [address] Meghna Ramon, LU[place] [address] [place] [address] 06/03/2024 9:00 AM EST [facility] Visit [facility], [facility] [address] [place] [address] Gregg Rosen PA-C [address] [place] [address] 06/03/2024 11:00 AM EST Office Visit Neurology [address] [place] [address] Naresh Hampton, DO [address] [facility] [place] [id number] 10/28/2024 11:40 AM EDT Office Visit Family Practice [facility] [address] [place] [address] Charles Mayer DO [address] [place] [address] Scheduled Procedures Name Priority Associated Diagnoses Date/Ti [...] Additional history exists CKD PHOS USE SMARTSET 70043 11/24/202411/06, 06/11/2023, 12/24/2019 Depression Screening 01/21/2025 01/22/2024 CKD HGB USE SMARTSET 80306 04/24/202504/24, 04/24/2024, 11/25/2023, Additional history exists Diabetes [...] Documents on File Type Date Recorded Patient Emergency Management Director Expl 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 Care Teams Technology Services Manager Relationship Specialty Start Date End Date Charles Mayer DO [address] [address] PCP - General Family Medicine 05/26/23 documented as of this encounter
--- OUTSIDE RECORDS SUMMARY | 2024-06-05 14:53 | External Medical Summary | Summary of Care ---
Author Name Unknown Organization [facility] Address [address] [place] [address] Phone [phone] Care Team Providers Care Technical Sales Representatives Name Role Phone Charles Mayer DO Primary Care Provider Encounter Details Date Type Department Care Team (Late st Contact Info) Description 04/29/2024 11:00 AM EST [facility] Visit [facility], [facility] [address] [place] [address] Gregg Rosen PA-C [address] [facility] [place] [address] Allergies Active Allergy Reactions Criticality Noted Date [...] as of this encounter (statuses as of 05/15/2024) Medications Pantoprazole Sodium 40 MG Oral Tablet [...] Oral Tablet (Desyrel)Indicat ions:Coronary artery disease involving [place] coronary artery of [place] heart without angina pectoris,Stage 3a chronic kidney disease (HCC),Gastroesop hageal reflux disease without esophagitis,Oscar ntia (HCC) Take one-half tablet by mouth at bedtime as needed for insomnia 90 Tablet 3 5 Active Dexcom G7 Bathhouse Keeper DeviceIndication s:Severe dementia associated with other underlying [...] inj 1,000 mcgIndications:B12 deficiency 1000 mcg IM [id number] 01/28/2024 12/29/2024 Active documented as of this encounter (statuses as of 05/15/2024) Active Problems Problem Noted Date Diagnosed Date [...] 09/16/2014 Intestinal postoperative nonabsorption 1 CALLAHAN RESEARCH OTHER*[id number] 09/14/2009 MEDICATION USE AGREEMENT 05/19/2008 Overview (05/19/2008): See kim GERD (gastroesophageal reflux disease) Gout S/P gastric bypass S/P spinal fusion documented as of this encounter (statuses as of 05/15/2024) Resolved Problems Problem Noted Date Diagnosed Date [...] Tobacco use disorder 09/18/2009 011 Bariatric Proteinuria Research*[id number] 09/14/2009 12/27/2009 Organic sleep disorder 06/22/200910/10 Morbid [...] as of this encounter (statuses as of 05/15/2024) Immunizations Name Administration Dates Next Due COVID-19 [...] 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 Not on file documented as of this encounter Plan of Treatment Upcoming Encounters Date Type Department Care Team (Late st Contact Info) Description 05/20/2024 1:40 PM EST Office Visit Family Practice [facility] [address] [address] Charles Mayer, [address] [address] 05/20/2024 3:20 PM EST Scheduled Telephone Care Coordination and Integration [address] [place] [address] Olena Schultz, Community Health Satellite Dish Technician [address] [place] [address] 05/20/2024 3:40 PM EST Office Visit Neurology [address] [place] [address] Naresh Hampton DO [address] [place] [address] 05/21/2024 3:00 PM EST Office Visit UrologReji Hollingsworth [address] [facility] [address] [address] Ruth Anguiano PA-C [address] [address] 05/25/2024 8:30 AM EST [facility] [place], [facility] [address] [address] Meghna Ramon, LUIS [address] [place] [address] 06/03/2024 9:00 AM EST Home Visit [facility] [place], [facility] [address] [address] Gregg Rosen PA-C [address] [place] [address] 10/28/2024 11:40 AM EDT Office Visit Family Practice [facility] [address] [address] Charles Mayer, [address] [place] [address] Scheduled Procedures Name Priority Associated Diagnoses Date/Ti [...] Additional history exists CKD PHOS USE SMARTSET 84622 11/24/202411/06, 06/11/2023, 12/24/2019 Depression Screening 01/21/2025 01/22/2024 CKD HGB USE SMARTSET 37253 04/24/202504/24, 04/24/2024, 11/25/2023, Additional history exists Diabetes [...] Documents on File Type Date Recorded Patient Machinist Supervisor Expl 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 Care Teams Technical Sales Representatives Relationship Specialty Start Date End Date Charles Mayer DO [address] [address] PCP - General Family Medicine 05/26/23 documented as of this encounter
--- OUTSIDE RECORDS SUMMARY | 2024-06-05 14:53 | External Medical Summary | Summary of Care ---
Author Name Unknown Organization [facility] Address [address] [place] [address] Phone [phone] Care Team Providers Care Sole Molding Machine Operator Name Role Phone Charles Mayer DO Primary Care Provider Reason for Visit * Reason Onset Date Comments [facility]: Maintenance 05/14/2024 Encounter Details Date Type Department Care Team (Late st Contact Info) Description 05/14/2024 9:30 AM EST Scheduled Telephone [facility], [facility] [address] [facility] [place] [address] Coordinator, [facility] [address] [facility] [place] [address] Allergies Active Allergy Reactions Criticality Noted Date [...] as of this encounter (statuses as of 05/14/2024) Medications Pantoprazole Sodium 40 MG Oral Tablet [...] Oral Tablet (Desyrel)Indicat ions:Coronary artery disease involving [place] coronary artery of [place] heart without angina pectoris,Stage 3a chronic kidney disease (HCC),Gastroesop hageal reflux disease without esophagitis,Oscar ntia (HCC) Take one-half tablet by mouth at bedtime as needed for insomnia 90 Tablet 3 5 Active Dexcom G7 Manager Etl DeviceIndication s:Severe dementia associated with other underlying [...] inj 1,000 mcgIndications:B12 deficiency 1000 mcg IM [id number] 01/28/2024 12/29/2024 Active documented as of this encounter (statuses as of 05/14/2024) Active Problems Problem Noted Date Diagnosed Date [...] anemia 04/24/2017 Coronary artery disease invo lving [place] heart without angina pectoris 04/18/2016 Incomplete tear of right rotator cuff 04/15/2016 Overview (04/15/2016): 04/23 Dr Eduardo guerrero. Anxiety 09/28/2014 Diverticulitis of colon 09/16/2014 Intestinal postoperative nonabsorption 1 CALLAHAN RESEARCH OTHER*[id number] 09/14/2009 MEDICATION USE AGREEMENT 05/19/2008 Overview (05/19/2008): See kim GERD (gastroesophageal reflux disease) Gout S/P gastric bypass S/P spinal fusion documented as of this encounter (statuses as of 05/14/2024) Resolved Problems Problem Noted Date Diagnosed Date [...] Tobacco use disorder 09/18/2009 011 Bariatric Proteinuria Research*[id number] 09/14/2009 12/27/2009 Organic sleep disorder 06/22/200910/10 Morbid [...] as of this encounter (statuses as of 05/14/2024) Immunizations Name Administration Dates Next Due COVID-19 [...] 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 Call placed to [employer] [phone] and spoke with Fang who reported contact was made with pt's on 05/11 and there was a cost of $57.50 for this item. Pt's chose to cancel the order. documented in this encounter Plan of Treatment Upcoming Encounters Date Type Department Care Team (Late st Contact Info) Description 05/20/2024 1:40 PM EST Office Visit [facility] [address] [place] [address] Charles Mayer, [address] [place] [address] 05/20/2024 3:20 PM EST Scheduled Telephone Care Coordination and Integration [address] [facility] [place] [address] Olena Schultz, Community Health Oncology Nurse [address] [place] [address] 05/20/2024 3:40 PM EST Office Visit Neurology [address] [place] [address] Naresh Hampton, [address] [place], [place] [id number] 05/21/2024 3:00 PM EST Office Visit Urology Reji Haines [address] [address] Ruth Anguiano PA-C [address] [address] 05/25/2024 8:30 AM EST Home Visit [facility] [address] [place] [address] Meghna Ramon, LUIS [address] [place] [address] 06/03/2024 9:00 AM EST [facility] Visit [facility], [facility] [address] [place] [address] Gregg Rosen PA-C [address] [place] [address] 10/28/2024 11:40 AM EDT Office Visit [facility] [address] [place] [address] Charles Mayer DO [address] [place] [address] Scheduled Procedures Name Priority Associated Diagnoses Date/Ti [...] Additional history exists CKD PHOS USE SMARTSET 90684 11/24/202411/06, 06/11/2023, 12/24/2019 Depression Screening 01/21/2025 01/22/2024 CKD HGB USE SMARTSET 21601 04/24/202504/24, 04/24/2024, 11/25/2023, Additional history exists Diabetes [...] Documents on File Type Date Recorded Patient Onsite Health Coach Expl 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 Care Teams Sole Molding Machine Operator Relationship Specialty Start Date End Date Charles Mayer DO [address] [address] PCP - General Family Medicine 05/26/23 documented as of this encounter
--- OUTSIDE RECORDS SUMMARY | 2024-06-05 14:53 | External Medical Summary | Summary of Care ---
Author Name Unknown Organization [facility] Address [address] [place] [address] Phone [phone] Care Team Providers Care Gas Pumping Station Operator Name Role Phone Charles Mayer DO Primary Care Provider Encounter Details Date Type Department Care Team (Late st Contact Info) Description 05/18/2024 Telephone Urology Reji Haines [address] [place] [address] Services, Scheduling [address] [place] [address] Allergies Active Allergy Reactions Criticality Noted Date [...] Oral Tablet (Desyrel)Indicat ions:Coronary artery disease involving [place] coronary artery of [place] heart without angina pectoris,Stage 3a chronic kidney disease (HCC),Gastroesop hageal reflux disease without esophagitis,Oscar ntia (HCC) Take one-half tablet by mouth at bedtime as needed for insomnia 90 Tablet 3 5 Active Dexcom G7 Film Splicer DeviceIndication s:Severe dementia associated with other underlying [...] inj 1,000 mcgIndications:B12 deficiency 1000 mcg IM [id number] 01/28/2024 12/29/2024 Active documented as of this [...] anemia 04/24/2017 Coronary artery disease invo lving [place] heart without angina pectoris 04/18/2016 Incomplete tear of right rotator cuff 04/15/2016 Overview (04/15/2016): 04/23 Dr Eduardo guerrero. Anxiety 09/28/2014 Diverticulitis of colon 09/16/2014 Intestinal postoperative nonabsorption 1 CALLAHAN RESEARCH OTHER*[id number] 09/14/2009 MEDICATION USE AGREEMENT 05/19/2008 Overview (05/19/2008): [...] Tobacco use disorder 09/18/2009 011 Bariatric Proteinuria Research*[id number] 09/14/2009 12/27/2009 Organic sleep disorder 06/22/200910/10 Morbid [...] No 05/10/2024 Does the household have a [facility] source [facility]? 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 [facility] parra [facility]. She states they are trying to get him off IV antibiotics and switch to oral antibiotics prior to discharge. As long as the bacteria "responds" to oral medications. Appointment rescheduled for 06/10/24 at 1pm (waiting for spot to open but it has been requested. * Telephone Encounter - Ruth Anguiano PA-C - 05/18/2024 12:17 PM EST [...] 11:04 AM EST Patient has been at [facility] since last week for a UTI - Patient is due for an office visit withGina on Friday for a void trial, but since he has been in the hospital is asking if they should keep this appt or not. Please advise and contact back at [phone]. documented in this encounter Plan of Treatment Upcoming Encounters Date Type Department Care Team (Late st Contact Info) Description 05/20/2024 3:20 PM EST Scheduled Telephone Care Coordination and Integration [address] [place] [address] Olena Schultz, Community Health Inspector And Hand Packager [address] [place] [address] 05/21/2024 3:00 PM EST Office Visit Urology Reji Haines [address] [address] Ruth Anguiano PA-C [address] [place] [address] 05/25/2024 8:30 AM EST [facility], [facility] [address] [facility] [place] [address] Meghna Ramon, LUIS [address] [place] [address] 06/03/2024 9:00 AM EST [facility] Visit [facility], [facility] [address] [place] [address] Gregg Rosen PA-C [facility] [place] [address] 06/03/2024 11:00 AM EST Office Visit Neurology [address], [place] [address] Naresh Hampton, DO [address] [facility] [place], [place] [address] 10/28/2024 11:40 AM EDT Office Visit [facility] [address] [place] [address] Charles Mayer, [address] [place] [address] Scheduled Procedures Name Priority Associated Diagnoses Date/Ti me ESOPHAGOGASTRODUODENOSCOPY ( EGD), FLEXIBLE, TRANSORAL, DIAGNOSTIC Recall Esophageal reflux Health Maintenance Due Date Last Done Comments Cologuard 2008 Fecal Occult Blood Test 2008 Sigmoidoscopy 2008 Zoster Vaccines (1 of 2) 2013 Pneumococcal Vaccine: 50+ Years (2 of 2 - PCV) 01/14/2014 01/14/2013 Colonoscopy 06/03/2018 06/03/2017, 06/03/2017 Colorectal Cancer Screening 06/03/2018 COVID-19 Vaccine (2023- season) 2023 09/11/2020, 08/14/2020 Albumin/Creatinine Ratio 06/11/2024 06/12/2023, 06/0 06/2014 GFR 10/22/2024 04/24/2024, 01/06, 11/25/2023, Additional history exists CKD PHOS USE SMARTSET 56055 11/24/202411/06, 06/11/2023, 12/24/2019 Depression Screening 01/21/2025 01/22/2024 CKD HGB USE SMARTSET 95466 04/24/202504/24, 04/24/2024, 11/25/2023, Additional history exists Diabetes [...] Documents on File Type Date Recorded Patient Patternmaker Metal Bench Expl 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 Care Teams Gas Pumping Station Operator Relationship Specialty Start Date End Date Charles Mayer DO [address] [place] [address] PCP - General Family Medicine 05/26/23 documented as of this encounter
--- OUTSIDE RECORDS SUMMARY | 2024-06-05 14:53 | External Medical Summary | Summary of Care ---
Author Name Unknown Organization [facility] Address [address] [place] [address] Phone [phone] Care Team Providers Care Die Casting Machine Setter Name Role Phone Charles Mayer DO Primary Care Provider Encounter Details Date Type Department Care Team (Late st Contact Info) Description 05/18/2024 Telephone Urology Reji Haines [address] [place] [address] Services, Scheduling [address] [place] [address] Allergies Active Allergy Reactions Criticality Noted Date [...] as of this encounter (statuses as of 05/19/2024) Medications Pantoprazole Sodium 40 MG Oral Tablet [...] Oral Tablet (Desyrel)Indicat ions:Coronary artery disease involving [place] coronary artery of [place] heart without angina pectoris,Stage 3a chronic kidney disease (HCC),Gastroesop hageal reflux disease without esophagitis,Oscar ntia (HCC) Take one-half tablet by mouth at bedtime as needed for insomnia 90 Tablet 3 5 Active Dexcom G7 Instrument Fitter DeviceIndication s:Severe dementia associated with other underlying [...] inj 1,000 mcgIndications:B12 deficiency 1000 mcg IM [id number] 01/28/2024 12/29/2024 Active documented as of this encounter (statuses as of 05/19/2024) Active Problems Problem Noted Date Diagnosed Date [...] anemia 04/24/2017 Coronary artery disease invo lving [place] heart without angina pectoris 04/18/2016 Incomplete tear of right rotator cuff 04/15/2016 Overview (04/15/2016): 04/23 Dr Eduardo guerrero. Anxiety 09/28/2014 Diverticulitis of colon 09/16/2014 Intestinal postoperative nonabsorption 1 CALLAHAN RESEARCH OTHER*[id number] 09/14/2009 MEDICATION USE AGREEMENT 05/19/2008 Overview (05/19/2008): See kim GERD (gastroesophageal reflux disease) Gout S/P gastric bypass S/P spinal fusion documented as of this encounter (statuses as of 05/19/2024) Resolved Problems Problem Noted Date Diagnosed Date Resolved Date Kidney disease, chronic, sta ge III (GFR 30-59 ml/min) 11/16/2018 02/17/2020 Overview: Per CKD protocol Well adult exam 04/18/2016 09/24/2018 Overview (06/01/2018): ??Need eval hypoglycemia? S/p gastric bypass. Pain mgmt Dr Syed Asencio--[facility] +pain pump 02/22 EGD-Gastric bypass [...] Tobacco use disorder 09/18/2009 011 Bariatric Proteinuria Research*[id number] 09/14/2009 12/27/2009 Organic sleep disorder 06/22/200910/10 Morbid [...] as of this encounter (statuses as of 05/19/2024) Immunizations Name Administration Dates Next Due COVID-19 [...] No 05/10/2024 Does the household have a [facility] source of income? 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 They changed parra catheter after [facility]. She states they are trying to [...] 11:04 AM EST Patient has been at [facility] since last week for a UTI - Patient is due for an office visit withGina on Friday for a void trial, but since he has been in the hospital is asking if they should keep this appt or not. Please advise and contact back at [phone]. documented in this encounter Plan of Treatment Upcoming Encounters Date Type Department Care Team (Late st Contact Info) Description 05/20/2024 3:20 PM EST Scheduled Telephone Care Coordination and Integration [address] [place] [address] Olena Schultz, Community Health Perinatal Specialist [address] [place] [address] 05/21/2024 3:00 PM EST Office Visit Urology Reji Haines [address] [place] [address] Ruth Anguiano PA-C [address] [place] [address] 05/25/2024 8:30 AM EST [facility] Visit [facility], [facility] [address] [facility] [place] [address] Meghna Ramon, LUIS [address] [place] [address] 06/03/2024 9:00 AM EST Home Visit [facility], [facility] [address] [place] [address] Gregg Rosen [facility]-C [facility] [place] [address] 06/03/2024 11:00 AM EST Office Visit Neurology [address], [place] [address] Naresh Hampton, DO [address] [facility] [place], [place] [address] 10/28/2024 11:40 AM EDT Office Visit Family [facility] [address] [place] [address] Charles Mayer, [address] [place] [address] Scheduled Procedures Name Priority Associated Diagnoses Date/Ti [...] Additional history exists CKD PHOS USE SMARTSET 51724 11/24/202411/06, 06/11/2023, 12/24/2019 Depression Screening 01/21/2025 01/22/2024 CKD HGB USE SMARTSET 67198 04/24/202504/24, 04/24/2024, 11/25/2023, Additional history exists Diabetes [...] Documents on File Type Date Recorded Patient Commodity Buyer Expl 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 Care Teams Die Casting Machine Setter Relationship Specialty Start Date End Date Charles Mayer DO [address] [place] [address] PCP - General Family Medicine 05/26/23 documented as of this encounter
--- OUTSIDE RECORDS SUMMARY | 2024-06-05 14:53 | External Medical Summary | Summary of Care ---
Author Name Unknown Organization [facility] Address [address] [place] [address] Phone [phone] Care Team Providers Care Quality Control Tech Name Role Phone Marsha Mayeradin Gall[place]wn Primary Care Provider Reason for Visit * Reason Onset Date Comments [facility]: Screening 02/17/2024 Encounter Details Date Type Department Care Team (Late st Contact Info) Description 02/17/2024 Telephone [facility] [place] [address] [place] [address] Queenie Singh LPN [address] [place] [address] [facility]: Screening Allergies Active Allergy [...] 1 Tablet by mouth at bedtime. 01/14/20 24 Active Thiamine HCl 100 MG Oral Tablet (vitamin B-1) Take 1 Tablet by mouth in the morning. 01/14/20 24 Active Natural Vegetable Laxative Oral Tablet Take [...] in the morning. As needed . Active MORPHINE 5 MG/ML DELI COOK SQ INFUSION (AMBULATORY)In dications:MEDI CATION USE AGREEMENT Dose morphine per Pain management 1 Bolus Dosing Unit 5 10/05/19 14 024 Discontinued Memantine HCl 10 MG Oral Tablet (Namenda) Take 1 Tablet by mouth in the morning and 1 Tablet before bedtime. 180 Tablet 3 4 7:41 AM EDT 06/24/19 24 024 Discontinued(P atient preference/dis continuation) Zinc Acetate 50 MG Oral Capsule Take 1 Capsule by mouth daily. 025 Discontinued(M edication List Clean Up) Copper Caps 2 MG Oral Capsule (copper [...] 24 025 Discontinued(M edication List Clean Up) Cyclobenzaprin e HCl 10 MG Oral Tablet Take 1 Tablet by mouth in the morning and 1 Tablet before bedtime. Takes 1 1/2 tabs (15 mg) three times day. 01/14/20 24 024 Discontinued(R efill) Docusate Sodium 100 MG Oral Capsule (Colace) Take 2 Capsules by mouth in the morning and 2 Capsules before bedtime. 01/14/20 24 025 Discontinued traZODone HCl 50 MG Oral Tablet (Desyrel)Indic ations:Coronar y artery disease involving [place] coronary artery of [place] heart without angina pectoris,Stage 3a chronic kidney disease (HCC),Gastroes ophageal reflux disease without esophagitis,De mentia (HCC) Take one-half tablet by mouth at bedtime for 5 days then stop 90 Tablet 3 01/28/20 24 024 Discontinued(R efill) Mirtazapine 15 MG Oral Tablet (Remeron) Take 1 Tablet by mouth at bedtime. 30 Tablet 1 01/29/20 24 024 Discontinued(R efill) OLANZapine 5 MG Oral Tablet (zyPREXA) Take 1 Tablet by mouth at bedtime. 30 Tablet 01/29/20 24 024 Discontinued(R efill) oxyCODONE-Acet aminophen 5-325 MG Oral Tablet (Percocet) Take 1 Tablet by mouth every 4 hours as needed for Pain, Severe. 30 Tablet 02/13/20 24 024 Discontinued(R efill) Tamsulosin HCl 0.4 MG Oral Capsule (Flomax) Take 1 Capsule by mouth in the morning. 024 Discontinued(R efill) oxyCODONE HCl 10 MG Oral Tablet (Roxicodone)In dications:Othe r chronic pain Take 1 Tablet by mouth in the morning and 1 Tablet before bedtime. 60 Tablet 4 7:53 AM EST 02/16/20 24 024 Discontinued Cefdinir 300 MG Oral Capsule (Omnicef)Indic ations:Infecti ve urethritis Take 1 Capsule by mouth in the morning and 1 Capsule before bedtime. Do all this for 10 days. 20 Capsule 02/16/20 024 Hospital, Clinic, or Other Facility Administered Medication Ordered Dose Route Frequency Start Date End Date Status Vitamin B-12 (Cyanocobalamin) inj 1,000 mcgIndications:B12 deficiency 1000 mcg IM [id number] 01/28/2024 12/29/2024 Active documented as of this [...] anemia 04/24/2017 Coronary artery disease invo lving [place] heart without angina pectoris 04/18/2016 Incomplete tear of right rotator cuff 04/15/2016 Overview (04/15/2016): 04/23 Dr Eduardo guerrero. Anxiety 09/28/2014 Diverticulitis of colon 09/16/2014 Intestinal postoperative nonabsorption 1 CALLAHAN RESEARCH OTHER*[id number] 09/14/2009 MEDICATION USE AGREEMENT 05/19/2008 Overview (05/19/2008): [...] S/p gastric bypass. 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 A review of this chart was completed and: Under review with leadership Referring care team was notified via : Epic communication Queenie Singh LPN [facility] 02/17/2024,10:27 AM documented in this encounter Plan of Treatment Upcoming Encounters Date Type Department Care Team (Late st Contact Info) Description 05/20/2024 3:20 PM EST Scheduled Telephone Care Coordination and Integration [address] [place] [address] Olena Schultz, Community Health Email Marketing Coordinator [address] [facility] [place] [address] 05/21/2024 3:00 PM EST Office Visit Urology Reji Haines [address] [facility] [address] [place] [address] Ruth Anguiano PA-C [address] [place] [address] 05/25/2024 8:30 AM EST Home Visit [facility], [facility] [address] [place] [address] Meghna Ramon RN [address] [place] [address] 06/03/2024 9:00 AM EST Home Visit [facility], [facility] [address] [place] [address] Gregg Rosen PA-C [address] [place] [address] 06/03/2024 11:00 AM EST Office Visit Neurology [address] [place] [address] Naresh Hampton, DO [address] [place], [place] [address] 10/28/2024 11:40 AM EDT Office Visit Family [facility] [address] [place] [address] Charles Mayer, DO [address] [place] [address] Scheduled Procedures Name Priority Associated Diagnoses Date/Ti [...] Additional history exists CKD PHOS USE SMARTSET 02218 11/24/202411/06, 06/11/2023, 12/24/2019 Depression Screening 01/21/2025 01/22/2024 CKD HGB USE SMARTSET 00809 04/24/202504/24, 04/24/2024, 11/25/2023, Additional history exists Diabetes [...] Documents on File Type Date Recorded Patient Report Specialist Expl 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 Care Teams Quality Control Tech Relationship Specialty Start Date End Date Charles Mayer DO [address] [place] [address] PCP - General Family Medicine 05/26/23 documented as of this encounter
--- OUTSIDE RECORDS SUMMARY | 2024-06-05 14:53 | External Medical Summary | Summary of Care ---
Author Name Unknown Organization [facility] Address [address] [place] [address] Phone [phone] Care Team Providers Care Calender Roll Press Operator Name Role Phone Charles Mayer Primary Care Provider Reason for Visit * Reason Onset Date Comments [facility]: Maintenance 05/19/2024 Encounter Details Date Type Department Care Team (Late st Contact Info) Description 05/19/2024 Telephone [facility], [facility] 132 [facility] [place] [address] Mckenzie Hopson, AJ [address] [facility] [id number]: Maintenance Allergies Active Allergy [...] Oral Tablet (Desyrel)Indicat ions:Coronary artery disease involving [place] coronary artery of [place] heart without angina pectoris,Stage 3a chronic kidney disease (HCC),Gastroesop hageal reflux disease without esophagitis,Oscar ntia (HCC) Take one-half tablet by mouth at bedtime as needed for insomnia 90 Tablet 3 5 Active Dexcom G7 Technical Architect DeviceIndication s:Severe dementia associated with other underlying [...] inj 1,000 mcgIndications:B12 deficiency 1000 mcg IM [id number] 01/28/2024 12/29/2024 Active documented as of this [...] anemia 04/24/2017 Coronary artery disease invo lving [place] heart without angina pectoris 04/18/2016 Incomplete tear of right rotator cuff 04/15/2016 Overview (04/15/2016): 04/23 Dr Eduardo guerrero. Anxiety 09/28/2014 Diverticulitis of colon 09/16/2014 Intestinal postoperative nonabsorption 1 CALLAHAN RESEARCH OTHER*[id number] 09/14/2009 MEDICATION USE AGREEMENT 05/19/2008 Overview (05/19/2008): [...] Tobacco use disorder 09/18/2009 011 Bariatric Proteinuria Research*[id number] 09/14/2009 12/27/2009 Organic sleep disorder 06/22/200910/10 Morbid [...] No 05/10/2024 Does the household have a [facility] source of income? 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 Not on file Not on file documented as of this encounter Miscellaneous Notes * Telephone Encounter - Mckenzie Hopson LPN - 05/19/2024 3:36 PM EST Patient d/c from [facility] today TT to [facility] whiting can worker to schedule LA NENA Friday with Meghna Ramon documented in this encounter Plan of Treatment Upcoming Encounters Date Type Department Care Team (Late st Contact Info) Description 05/20/2024 3:20 PM EST Scheduled Telephone Care Coordination and Integration [address] [place] [address] Olena Schultz, Community Health Rug Dry Room Attendant [address] [place] [address] 05/21/2024 3:00 PM EST Office Visit Urology Reji Haines [address] [place] [address] Ruth Anguiano PA-C [address] [place] [address] 05/25/2024 8:30 AM EST [facility] Visit [facility] [address] [place] [address] Meghna Ramon, LUIS [address] [place] [address] 05/25/2024 2:20 PM EST Office Visit Family Practice [facility] [address] [place] [address] Charles Mayer DO [address] [place] [address] 06/03/2024 9:00 AM EST [facility] [address] [place] [address] Gregg Rosen PA-C [address] [place] [address] 06/03/2024 11:00 AM EST Office Visit Neurology [address] [place] [address] Naresh Hampton, DO [address] [place] [address] 10/28/2024 11:40 AM EDT Office Visit Family Practice [facility] [address] [place] [address] Charles Mayer DO [address] [place] [address] Scheduled Procedures Name Priority Associated Diagnoses Date/Ti [...] Additional history exists CKD PHOS USE SMARTSET 09824 11/24/202411/06, 06/11/2023, 12/24/2019 Depression Screening 01/21/2025 01/22/2024 CKD HGB USE SMARTSET 23755 04/24/202504/24, 04/24/2024, 11/25/2023, Additional history exists Diabetes [...] on File Type Date Recorded Patient Director Account Management Expl 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 Care Teams Calender Roll Press Operator Relationship Specialty Start Date End Date Charles Mayer DO [address] [place] [address] PCP - General Family Medicine 05/26/23 documented as of this encounter
--- OUTSIDE RECORDS SUMMARY | 2024-06-05 14:53 | External Medical Summary | Summary of Care ---
Author Name Unknown Organization [facility] Address [address] [place] [address] Phone [phone] Care Team Providers Care Manager Testing Name Role Phone Charles Mayer Primary Care Provider Encounter Details Date Type Department Care Team (Late st Contact Info) Description 05/17/2024 Orders Only Outcomes Research Department [address] [place], [place] [id number] Sugey Howard CHRA MyCode Research Other*[id number] Allergies Active Allergy Reactions Criticality Noted Date [...] as of this encounter (statuses as of 05/17/2024) Medications Pantoprazole Sodium 40 MG Oral Tablet [...] Oral Tablet (Desyrel)Indicat ions:Coronary artery disease involving [place] coronary artery of [place] heart without angina pectoris,Stage 3a chronic kidney disease (HCC),Gastroesop hageal reflux disease without esophagitis,Oscar ntia (HCC) Take one-half tablet by mouth at bedtime as needed for insomnia 90 Tablet 3 5 Active Dexcom G7 Relief Worker DeviceIndication s:Severe dementia associated with other underlying [...] inj 1,000 mcgIndications:B12 deficiency 1000 mcg IM [id number] 01/28/2024 12/29/2024 Active documented as of this encounter (statuses as of 05/17/2024) Active Problems Problem Noted Date Diagnosed Date [...] anemia 04/24/2017 Coronary artery disease invo lving [place] heart without angina pectoris 04/18/2016 Incomplete tear of right rotator cuff 04/15/2016 Overview (04/15/2016): 04/23 Dr Eduardo guerrero. Anxiety 09/28/2014 Diverticulitis of colon 09/16/2014 Intestinal postoperative nonabsorption 1 CALLAHAN RESEARCH OTHER*[id number] 09/14/2009 MEDICATION USE AGREEMENT 05/19/2008 Overview (05/19/2008): See kim GERD (gastroesophageal reflux disease) Gout S/P gastric bypass S/P spinal fusion documented as of this encounter (statuses as of 05/17/2024) Resolved Problems Problem Noted Date Diagnosed Date [...] Tobacco use disorder 09/18/2009 011 Bariatric Proteinuria Research*[id number] 09/14/2009 12/27/2009 Organic sleep disorder 06/22/200910/10 Morbid [...] as of this encounter (statuses as of 05/17/2024) Immunizations Name Administration Dates Next Due COVID-19 [...] No 05/10/2024 Does the household have a [facility] source of income? 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 [address] [place] [address] Charles Mayer, [address] [place] [address] 05/20/2024 3:20 PM EST Scheduled Telephone Care Coordination and Integration [address] [place] [address] Olena Schultz Community Health Hydroelectric Production Manager [address] [place] [address] 05/20/2024 3:40 PM EST Office Visit Neurology [address] [place] [address] Naresh Hampton DO [address] [place], [place] [address] 05/21/2024 3:00 PM EST Office Visit Urology Reji Haines [address] [place] [address] Ruth Anguiano PA-C [address] [place] [address] 05/25/2024 8:30 AM EST [facility] Visit [facility] [address] [place] [address] Meghna Ramon, LUIS [address] [place] [address] 06/03/2024 9:00 AM EST [facility] Visit [facility] [place], [facility] [address] [place] [address] Gregg Rosen PA-C [address] [place] [address] 10/28/2024 11:40 AM EDT Office Visit Family Practice [facility] [address] [place] [address] Charles Mayer, [address] [place] [address] Scheduled Orders Name Type Priority Associated Diagnoses Orde r Schedule MYCODE SUBSEQUENT ADULT Lab Routine MyCode Research Other*[id number] Every 6 Months for 2 Occurrences starting 05/17/2024 until 06/06/2025 Scheduled Procedures Name Priority Associated Diagnoses Date/Ti [...] Additional history exists CKD PHOS USE SMARTSET 90008 11/24/202411/06, 06/11/2023, 12/24/2019 Depression Screening 01/21/2025 01/22/2024 CKD HGB USE SMARTSET 35641 04/24/202504/24, 04/24/2024, 11/25/2023, Additional history exists Diabetes [...] this encounter Visit Diagnoses Diagnosis MyCode Research Other*[id number] documented in this encounter Advance Directives Documents on File Type Date Recorded Patient Clerical Assistant Expl anation Advance Directives and Living Will [...] were consensually agreed upon. Care Teams Manager Testing Relationship Specialty Start Date End Date Charles Mayer DO [address] [place] [address] PCP - General Family Medicine 05/26/23 documented as of this encounter
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
--- OUTSIDE RECORDS SUMMARY | 2024-06-05 14:54 | External Medical Summary | Summary of Care ---
Author Name Unknown Organization [facility] Address [address] [place] [address] Phone [phone] Care Team Providers Care Supervisor Labor Gang Name Role Phone Charles Mayer DO Primary Care Provider Reason for Visit * Reason Onset Date Comments [facility]: Maintenance 05/12/2024 Encounter Details Date Type Department Care Team (Late st Contact Info) Description 05/12/2024 Telephone [facility], [address] [id number] Olena Meadows RN [address] [place] [address] [facility]: Maintenance Allergies Active Allergy [...] as of this encounter (statuses as of 05/12/2024) Medications Pantoprazole Sodium 40 MG Oral Tablet [...] Oral Tablet (Desyrel)Indicat ions:Coronary artery disease involving [place] coronary artery of belk[place] heart without angina pectoris,Stage 3a chronic kidney disease (HCC),Gastroesop hageal reflux disease without esophagitis,Oscar ntia (HCC) Take one-half tablet by mouth at bedtime as needed for insomnia 90 Tablet 3 5 Active Dexcom G7 Service Establishment Attendant DeviceIndication s:Severe dementia associated with other [...] inj 1,000 mcgIndications:B12 deficiency 1000 mcg IM [id number] 01/28/2024 12/29/2024 Active documented as of this encounter (statuses as of 05/12/2024) Active Problems Problem Noted Date Diagnosed Date [...] anemia 04/24/2017 Coronary artery disease invo lving belk[place]ski heart without angina pectoris 04/18/2016 Incomplete tear of right rotator cuff 04/15/2016 Overview (04/15/2016): 04/23 Dr Eduardo guerrero. Anxiety 09/28/2014 Diverticulitis of colon 09/16/2014 Intestinal postoperative nonabsorption 1 CALLAHAN RESEARCH OTHER*[id number] 09/14/2009 MEDICATION USE AGREEMENT 05/19/2008 Overview (05/19/2008): See kim GERD (gastroesophageal reflux disease) Gout S/P gastric bypass S/P spinal fusion documented as of this encounter (statuses as of 05/12/2024) Resolved Problems Problem Noted Date Diagnosed Date [...] Tobacco use disorder 09/18/2009 011 Bariatric Proteinuria Research*[id number] 09/14/2009 12/27/2009 Organic sleep disorder 06/22/200910/10 Morbid [...] as of this encounter (statuses as of 05/12/2024) Immunizations Name Administration Dates Next Due COVID-19 [...] Telephone Encounter - Olena Meadows RN - 05/12/2024 9:[address] [place] EMR, patient admitted 05/12/24 with AMS, Acute UTI. Added to shared [facility] hospital list. documented in this encounter Plan of Treatment Upcoming Encounters Date Type Department Care Team (Late st Contact Info) Description 05/13/2024 5:00 PM EST Scheduled Telephone Care Coordination and [facility] [address] [facility] [place] [address] Olena Schultz Community Health Coil Binder [address] [facility] [place] [address] 05/14/2024 9:30 AM EST Scheduled Telephone [facility], [facility] [address] [facility] [place] [address] Coordinator, [facility] [address] [facility] [place] [address] 05/20/2024 1:40 PM EST Office Visit Family Practice [facility] [address] [facility] [place] [address] Charles Mayer, [address] [facility] [place] [address] 05/20/2024 3:40 PM EST Office Visit Neurology [address] [place] [phone] Naresh Hampton DO [address] [facility] [place] [address] 05/21/2024 3:00 PM EST Office Visit Urology Reji Haines [address] [place] [address] Ruth Anguiano PA-C [address] [place] [address] 05/25/2024 8:30 AM EST [facility] Visit [facility], [facility] [address] [place] [address] Meghna Ramon, LUIS [address] [place] [address] 06/03/2024 9:00 AM EST Home Visit [facility], [facility] [address] [place] [address] Gregg Rosen PA-C [address] [place] [address] 10/28/2024 11:40 AM EDT Office Visit Family Practice [facility] [address] [place] [address] Charles Mayer DO [address] [place] [address] Scheduled Procedures Name Priority Associated Diagnoses Date/Ti [...] Additional history exists CKD PHOS USE SMARTSET 57241 11/24/202411/06, 06/11/2023, 12/24/2019 Depression Screening 01/21/2025 01/22/2024 CKD HGB USE SMARTSET 18083 04/24/202504/24, 04/24/2024, 11/25/2023, Additional history exists Diabetes [...] Documents on File Type Date Recorded 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 Care Teams Supervisor Labor Gang Relationship Specialty Start Date End Date Charles Mayer DO [address] [place] [address] PCP - General Family Medicine 05/26/23 documented as of this encounter
--- OUTSIDE RECORDS SUMMARY | 2024-06-05 14:54 | External Medical Summary | Summary of Care ---
Author Name Unknown Organization [facility] Address [address] [place] [address] Phone [phone] Care Team Providers Care Mine Promotor Name Role Phone Marsha Mayerr Iram Primary Care Provider Encounter Details Date Type Department Care Team (Late st Contact Info) Description 05/14/2024 Population Health External Data Unspecified Department Allergies [...] Oral Tablet (Desyrel)Indicat ions:Coronary artery disease involving [place] coronary artery of [place] heart without angina pectoris,Stage 3a chronic kidney disease (HCC),Gastroesop hageal reflux disease without esophagitis,Oscar ntia ([facility]) Take one-half tablet by mouth at bedtime as needed for insomnia 90 Tablet 3 5 Active Dexcom G7 Top Steep Tender DeviceIndication s:Severe dementia associated with other underlying [...] inj 1,000 mcgIndications:B12 deficiency 1000 mcg IM [id number] 01/28/2024 12/29/2024 Active documented as of this [...] anemia 04/24/2017 Coronary artery disease invo lving [place] heart without angina pectoris 04/18/2016 Incomplete tear of right rotator cuff 04/15/2016 Overview (04/15/2016): 04/23 Dr Eduardo guerrero. 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 Not on file documented as of this encounter Plan of Treatment Upcoming Encounters Date Type Department Care Team (Late st Contact Info) Description 05/14/2024 9:30 AM EST Scheduled Telephone [facility], [facility] [address] [place] [address] Coordinator, [facility] [address] [place] [address] 05/20/2024 1:40 PM EST Office Visit [facility] [address] [place] [address] Charles Mayer, DO [address] [place] [address] 05/20/2024 3:20 PM EST Scheduled Telephone Care Coordination and Integration [address] [place] [address] Olena Schultz Community [facility] Banking Services Advisor [address] [place] [address] 05/20/2024 3:40 PM EST Office Visit Neurology [address] [place] [phone] Naresh Hampton DO [address] [place] [address] 05/21/2024 3:00 PM EST Office Visit Urology Reji Haines [address] [facility] [address] [place] [address] Ruth Anguiano PA-C [address] [place] [address] 05/25/2024 8:30 AM EST [facility] Visit [facility], [facility] [address] [place] [address] Meghna Ramon RN [address] [place] [address] 06/03/2024 9:00 AM EST Home Visit [facility], [facility] [address] [place] [address] Gregg Rosen PA-C [address] [place] [address] 10/28/2024 11:40 AM EDT Office Visit [facility] [address] [place] [address] Charles Mayer, [address] [place] [address] Scheduled Procedures Name Priority Associated Diagnoses Date/Ti [...] Additional history exists CKD PHOS USE SMARTSET 77502 11/24/202411/06, 06/11/2023, 12/24/2019 Depression Screening 01/21/2025 01/22/2024 CKD HGB USE SMARTSET 51008 04/24/202504/24, 04/24/2024, 11/25/2023, Additional history exists Diabetes [...] Documents on File Type Date Recorded 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 Care Teams Mine Promotor Relationship Specialty Start Date End Date Charles Mayer DO [address] [place] [address] PCP - General Family Medicine 05/26/23 documented as of this encounter
--- OUTSIDE RECORDS SUMMARY | 2024-06-05 14:54 | External Medical Summary | Summary of Care ---
Author Name Unknown Organization [facility] Address [address] [place] [address] Phone [phone] Care Team Providers Care Kitchen And Counter Worker Name Role Phone Charles Mayer DO Primary Care Provider Reason for Visit * Reason Onset Date Comments [facility]: Maintenance 05/12/2024 Encounter Details Date Type Department Care Team (Late st Contact Info) Description 05/12/2024 Telephone [facility], [address] [id number] Olena Meadows RN [facility] [place] [address] [facility]: Maintenance Allergies Active [...] Oral Tablet (Desyrel)Indicat ions:Coronary artery disease involving [place] coronary artery of [place] heart without angina pectoris,Stage 3a chronic kidney disease (HCC),Gastroesop hageal reflux disease without esophagitis,Oscar ntia (HCC) Take one-half tablet by mouth at bedtime as needed for insomnia 90 Tablet 3 5 Active Dexcom G7 Carton Stamper DeviceIndication s:Severe dementia associated with other underlying [...] inj 1,000 mcgIndications:B12 deficiency 1000 mcg IM [id number] 01/28/2024 12/29/2024 Active documented as of this [...] anemia 04/24/2017 Coronary artery disease invo lving [place] heart without angina pectoris 04/18/2016 Incomplete tear of right rotator cuff 04/15/2016 Overview (04/15/2016): 04/23 Dr Eduardo guerrero. Anxiety 09/28/2014 Diverticulitis of colon 09/16/2014 Intestinal postoperative nonabsorption 1 CALLAHAN RESEARCH OTHER*[id number] 09/14/2009 MEDICATION USE AGREEMENT 05/19/2008 Overview (05/19/2008): [...] S/p gastric bypass. 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 Not on file Not on file documented as of this encounter Plan of Treatment Upcoming Encounters Date Type Department Care Team (Late st Contact Info) Description 05/13/2024 5:00 PM EST Scheduled Telephone Care Coordination and Integration [address] [place] [address] Olena Schultz, Community Health Vest Tailor [address] [place] [address] 05/14/2024 9:30 AM EST Scheduled Telephone [facility], [facility] [address] [facility] [place] [address] Coordinator, [facility] [address] [facility] [place] [address] 05/20/2024 1:40 PM EST Office Visit Family [facility] [address] [facility] [place] [address] Charles Mayer DO [address] [facility] [place] [address] 05/20/2024 3:40 PM EST Office Visit Neurology [address] [place] [phone] Naresh Hampton DO [address] [place], [place] [id number] 05/21/2024 3:00 PM EST Office Visit Urology Reji Haines [address] [place] [address] Ruth Anguiano PA-C [address] [place] [address] 05/25/2024 8:30 AM EST [facility] Visit [facility], [facility] [address] [place] [address] Meghna Ramon, LUIS [address] [facility] [place] [address] 06/03/2024 9:00 AM EST [facility] [address] [place] [address] Gregg Rosen PA-C [address] [place] [address] 10/28/2024 11:40 AM EDT Office Visit [facility] [address] [place] [address] Charles Mayer DO [address] [place] [address] Scheduled Procedures Name Priority Associated Diagnoses Date/Ti [...] Additional history exists CKD PHOS USE SMARTSET 60939 11/24/202411/06, 06/11/2023, 12/24/2019 Depression Screening 01/21/2025 01/22/2024 CKD HGB USE SMARTSET 42233 04/24/202504/24, 04/24/2024, 11/25/2023, Additional history exists Diabetes [...] Documents on File Type Date Recorded Patient Monkey Trainer Expl 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 Care Teams Kitchen And Counter Worker Relationship Specialty Start Date End Date Charles Mayer DO [facility] [place] [address] PCP - General Family Medicine 05/26/23 documented as of this encounter
--- OUTSIDE RECORDS SUMMARY | 2024-06-05 14:54 | External Medical Summary | Summary of Care ---
Author Name Unknown Organization [facility] Address [address] [place] [address] Phone [phone] Care Team Providers Care Manager Oracle Database Name Role Phone Charles Mayer DO Primary Care Provider Reason for Visit * Reason Onset Date Comments [facility]: Maintenance 05/12/2024 Encounter Details Date Type Department Care Team (Late st Contact Info) Description 05/12/2024 10:00 AM EST Scheduled Telephone [facility], [facility] [address] [facility] [place] [address] Coordinator, [facility] [address] [facility] [place] [address] Allergies Active Allergy Reactions Criticality Noted Date [...] Oral Tablet (Desyrel)Indicat ions:Coronary artery disease involving red lake coronary artery of red lake heart without angina pectoris,Stage 3a chronic kidney disease (HCC),Gastroesop hageal reflux disease without esophagitis,Oscar ntia (HCC) Take one-half tablet by mouth at bedtime as needed for insomnia 90 Tablet 3 5 Active Dexcom G7 Orthopedic Nurse Practitioner DeviceIndication s:Severe dementia associated with other underlying [...] inj 1,000 mcgIndications:B12 deficiency 1000 mcg IM [id number] 01/28/2024 12/29/2024 Active documented as of this [...] anemia 04/24/2017 Coronary artery disease invo lving red lake heart without angina pectoris 04/18/2016 Incomplete tear of right rotator cuff 04/15/2016 Overview (04/15/2016): 04/23 Dr Eduardo guerrero. Anxiety 09/28/2014 Diverticulitis of colon 09/16/2014 Intestinal postoperative nonabsorption 1 CALLAHAN RESEARCH OTHER*[id number] 09/14/2009 MEDICATION USE AGREEMENT 05/19/2008 Overview (05/19/2008): [...] Pain mgmt Dr Syed Asencio--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 Call placed to and spoke with Yakelin who reported the order was accepted by [facility] [phone] today. CONVEYOR TECHNICIAN asked if everything was uploaded that was needed. Yakelin stated they sent everything they received to the supplier and if the supplier needs anything they will reach out. F/u call scheduled 05/14. documented in this encounter Plan of Treatment Upcoming Encounters Date Type Department Care Team (Late st Contact Info) Description 05/13/2024 5:00 PM EST Scheduled Telephone [facility] Coordination [facility] Integration [address] [place] [address] Olena Schultz, [facility] [address] [place] [address] 05/14/2024 9:30 AM EST Scheduled Telephone [facility] [place], [facility] [address] [facility] [place] [address] Coordinator, [facility] [address] [facility] [place] [address] 05/20/2024 1:40 PM EST Office Visit Family Practice [facility] [address] [facility] [place] [address] Charles Mayer, [address] [facility] [place] [address] 05/20/2024 3:40 PM EST Office Visit Neurology Chantell Bon[address] [place] [phone] Naresh Hampton DO [address] [place] [address] 05/21/2024 3:00 PM EST Office Visit Urology Reji Haines [address] [place] [address] Ruth Anguiano PA-C [address] [place] [address] 05/25/2024 8:30 AM EST Home Visit [facility], [facility] [address] [place] [address] Meghna Ramon, LUIS [address] [place] [address] 06/03/2024 9:00 AM EST Home Visit [facility], [facility] [address] [place] [address] Gregg Rosen PA-C [address] [place] [address] 10/28/2024 11:40 AM EDT Office Visit Family Practice [facility] [address] [place] [address] Charles Mayer DO [address] [place] [address] Scheduled Procedures Name Priority Associated Diagnoses Date/Ti [...] Additional history exists CKD PHOS USE SMARTSET 95625 11/24/202411/06, 06/11/2023, 12/24/2019 Depression Screening 01/21/2025 01/22/2024 CKD HGB USE SMARTSET 25115 04/24/202504/24, 04/24/2024, 11/25/2023, Additional history exists Diabetes [...] Documents on File Type Date Recorded 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 Care Teams Manager Oracle Database Relationship Specialty Start Date End Date Charles Mayer DO [address] [place] [address] PCP - General Family Medicine 05/26/23 documented as of this encounter
--- NOTE | 2024-06-05 15:21 | Emergency Department Note ---
Impression & Plan Dislodged Newman catheter, Dementia, Acute UTI (urinary tract infection) ED Provider Note ED Provider Note NAME: CHRISTIAN ROE AGE:59 SEX: Male : 1965 ARRIVES VIA: Private vehicle INFORMANT: Patient, family ED PROVIDER(s): Atiya Hernandez DO CHIEF COMPLAINT: Accidental dislodgment of Newman catheter HPI: This is a 59-year-old male presents emergency department due to concern for an accidental dislodgment of his Newman catheter. Family states he was getting up and accidentally tugged on the leg fastener for the tubing which pulled on the catheter itself. The states she noticed a small hole in that area of the Newman catheter although did not notice any leakage of urine and did not notice any blood. Patient has a history of recurrent urinary tract infections and has had an indwelling Newman catheter for quite some time. She denies noting any fevers or chills and states he had not complained of any abdominal pain or worsening back pain. He does have a history of chronic back pain. She was concern for recurrent infection additionally as he did "not seem himself" for the last 2 or 3 days. She states this is how his UIT's usually start. She also noted that his urine appeared darker the last few days. No other recent change in medications, no change in diet, no change in stools. She did contact the home health nurse regarding the Newman catheter and was instructed to come here for additional evaluation. PAST MEDICAL HISTORY:See Below PAST SURGICAL HISTORY:See Below FAMILY HISTORY:See Below SOCIAL HISTORY:See Below HOME MEDICATIONS:See Below ALLERGIES:See Below VITALS:See Below PHYSICAL EXAMINATION: GENERAL: alert, unwell appearing, no distress, non-toxic EYE EXAM: normal conjunctiva, PERRL and EOM's grossly intact OROPHARYNX: no exudate, no erythema, lips, buccal mucosa, and tongue normal and mucous membranes are moist NECK: supple, no nuchal rigidity, no adenopathy, non-tender LUNGS: Clear to auscultation. Normal chest wall mechanics, no w/r/r HEART: no murmurs, S1 normal and S2 normal ABDOMEN: abdomen soft, non-tender, normo-active bowel sounds, no masses, no rebound or guarding. : Circumcised, no obvious blood at the urethral meatus, no leakage of urine from out around the catheter tubing, a small hole was noted where the Newman catheter is clamped into the adhesive attachment on the proximal anterior left lower extremity BACK: Back is symmetrical on inspection and there is no deformity, no midline tenderness, no CVA tenderness. SKIN: no rashes, petechiae, orbruising UPPER EXTREMITIES: upper extremities are grossly normal. FROM, nml pulses b/l. LOWER EXTREMITIES: No pitting edema. FROM, nml pulses b/l. NEURO EXAM: Normal sensorium, cranial nerves II-XII grossly intact, normal speech, no facial droop,nogross weakness of arms, no gross weakness of legs. Gross sensation intact. No ataxia. Vital Signs: reviewed and remarkable Differential Diagnosis: Dislodged Newman catheter, complication of Newman catheter, UTI, BLANCO, dehydration, pyelonephritis, bacteremia/sepsis, bladder stone, ureterolithiasis, as well as others were considered MEDICAL DECISION MAKING: This is a 59-year-old male presents emergency department with family bedside due to concern for possible dislodgment of his Newman catheter and concern for evolving urinary tract infection. Patient with extensive urologic history and does have a diagnosis of dementia. He was afebrile and hemodynamically stable. Patient's Newman catheter was noted to be in place however did have a small hole in the catheter tubing. This catheter was removed and a new catheter replaced by nursing staff at bedside. After further discussion with family due to their concern for mild evolving confusion which is similar to prior episodes of urinary tract infection and patient's prior history of complicated infections occasionally with progression into sepsis, we opted to perform labs. A new urine specimen was collected and sent additionally. The patient was afebrile and hemodynamically stable. He had no leukocytosis and no evidence of BLANCO. Unfortunately after review of prior cultures, patient would need specific IV antibiotics in order to cover the prior organisms that have previously grown. This was discussed with patient and family at bedside. Case discussed with the hospitalist team for additional evaluation and management. Consultation(s): 1699: Discussed with ED PharmacistTonie. 1814: Discussed with Dr. Richard, [facility] hospitalist team, for additional evaluation and management. ER Treatment Provided: See below Diagnostics Interpreted By Me: -Cardiac Monitoring: An order was placed for continuous cardiac monitoring. The monitor shows a rate of 66 with normal sinus rhythm. -Laboratory studies: As stated above and show below. Triage Nursing Note Reviewed Prior/Outside Records Reviewed -prior urine cultures reviewed Past Med/Surg History Problem List (Updated 06/05/24 @ 20:58 by Background Daemon) Acute UTI (urinary tract infection) (Acute) Dislodged Newman catheter (Acute) AMS (altered mental status) Influenza A (Acute) Acute UTI (Acute) Gram-negative bacteremia BPH (benign prostatic hyperplasia) Dementia (Acute) Hyperlipidemia Chronic gout Catheter-associated urinary tract infection (Acute) Hypomagnesemia (Acute) Hypokalemia (Acute) Acute UTI (Acute) Sepsis (Acute) Discussion about advance care planning held with family member Palliative care by specialist Dementia with behavioral disturbance Weakness generalized CKD stage 3b, GFR 30-44 ml/min BPH (benign prostatic hyperplasia) Vascular dementia Urinary retention Chest pain (Acute) Encephalopathy Postlaminectomy syndrome of lumbosacral region Hyponatremia (Acute) Dementia (Acute) QT prolongation Delirium due to another medical condition, acute, hyperactive Agitation Alcohol abuse (Acute) AMS (altered mental status) (Acute) Major neurocognitive disorder as late effect of traumatic brain injury with behavioral disturbance Frequent falls (Acute) Altered mental status (Acute) Confusion Right ureteral stone Encounter for pre-operative examination Anemia (Acute) IRON DEFICIENT ANEMIA AND REC'D IV IRON 10/06. Baseline HGB since 2017 ~9 HLD (hyperlipidemia) Gout Back pain FROM ACCIDENT AND 7 DIFFERENT FX AND FUSION GERD (gastroesophageal reflux disease) (Acute) Anxiety History of renal stone (Acute) S/P cysto/litho/stent 10/07 History of diverticulitis of colon remote Medical History (Updated 06/05/24 @ 20:58 by Background Daemon) History of fracture of right ankle Hx of fracture of skull 7 FX AND HAS SOME PROBLEMS WITH MEMORY Gastric ulcer Hydronephrosis B/L per [facility] 10/12/18 Surgical History S/P ureteral stent placement History of cystoscopy W/ LITHO/BASKET STONE EXTRACTION - 10/07/18 [facility]. LMA #5. History of surgery on left wrist History of arthroscopy of right shoulder Hx of right knee surgery S/P insertion of intrathecal pump FOLLOW WITH DR LAKIA PACKER FROM [facility] History of back surgery UPPER BACK FUSION, 7 DIFFERENT FRACTURES AND MULTIPLE SURGERIES AND IS FUSED multiple revisions H/O inguinal hernia repair H/O lithotripsy S/P exploratory laparotomy (Unknown) 2010 RUPTURED DIVERTICULI S/P appendectomy (Unknown) S/P cholecystectomy (Unknown) S/P gastric bypass mike en y (2010) Family History Mother DM type 2 (diabetes mellitus, type 2) Father DM type 2 (diabetes mellitus, type 2) Social History Smoking Status: Never smoker Tobacco Type: Smokeless Tobacco (Dip or Chew) Second Hand Exposure: No; Do You Dip or Chew Tobacco: No; Tobacco Cessation Education Requested by Patient: No Hx Alcohol Use: No Hx Substance Use: No Preferred Language: Polish Communication Ability: Effective Communication Ability Comment: Unable to write per spouse & reading difficulty Visual Impairment: No Limitations Tank Processor Required: No Beliefs That Will Affect Care: None Current Living Situation: Spouse Current Living Situation Comment: lives with Other Information That Helps Us Care for You: No Feels Safe at Home: Yes Safety Concerns: Feels Safe At This Time Assistive Devices: Walker and Wheelchair Allergies Allergies Allergy/AdvReac Type Severity Reaction Status Date / Time Penicillins Allergy Severe SEE COMMENT Verified 03/09/24 03:24 erythromycin base Allergy Intermediate Itching Verified 03/09/24 03:24 indomethacin Allergy Intermediate HIVES Verified 03/09/24 03:24 neomycin Allergy Intermediate BLISTERS Verified 03/09/24 03:24 vancomycin Allergy Intermediate ITCHING--ALL Verified 03/09/24 03:24 MYCIN DRUGS fentanyl AdvReac Severe "DID NOT Verified 03/09/24 03:24 TOLERATE"-patch- "went nuts" ibuprofen AdvReac Severe Ulcer Verified 03/09/24 03:24 history ketorolac AdvReac Mild NAUSEA Verified 03/09/24 03:24 aspirin AdvReac Unknown "BLEEDING" Verified 03/09/24 03:24 S/P GASTRIC BYPASS Home Meds Home Medications Medication Instructions Recorded Confirmed allopurinol 300 mg tablet 300 mg PO DAILY 05/12/24 06/05/24 atorvastatin 10 mg tablet 10 mg PO DAILY 05/12/24 06/05/24 cyclobenzaprine 10 mg tablet 10 mg PO BID 05/12/24 06/05/24 famotidine 40 mg tablet 40 mg PO HS 05/12/24 06/05/24 loratadine 10 mg tablet 10 mg PO DAILY 05/12/24 06/05/24 lorazepam 1 mg tablet 1 mg PO TID PRN Anxiety 05/12/24 06/05/24 melatonin 10 mg tablet 10 mg PO HS PRN Insomnia 05/12/24 06/05/24 memantine 10 mg tablet 10 mg PO BID 05/12/24 06/05/24 mirtazapine 30 mg tablet 30 mg PO HS 05/12/24 06/05/24 morphine 15 mg tablet,extended 15 mg PO BID 05/12/24 06/05/24 release olanzapine 5 mg tablet 5 mg PO HS 05/12/24 06/05/24 pantoprazole 40 mg tablet,delayed 40 mg PO BID 05/12/24 06/05/24 release tamsulosin 0.4 mg capsule 0.4 mg PO DAILY 05/12/24 06/05/24 trazodone 50 mg tablet 50 mg PO HS 05/12/24 06/05/24 oxycodone 10 mg tablet 10 mg PO UD PRN Pain 06/05/24 06/05/24 oxycodone-acetaminophen 5 mg-325 1 tab PO UD 06/05/24 06/05/24 mg tablet Previous Rx's Medication Instructions Recorded L.acidop,casei,lactis,rham-B.lact,ita 1 cap PO DAILY 30 days #30 caps 05/19/24 625 mg (10 billion cell) capsule (Advanced Probiotic) Results & Data (ED) Vital Signs Vital Signs - 24 hr 06/05/24 17:37 Pulse Rate [Apical] 64 Pulse Rhythm [Apical] Regular Pulse Strength [Apical] Normal Respiratory Rate 16 Respiratory Effort / Characteristics Non-Labored Spontaneous Respiratory Depth Normal Respiratory Pattern Regular Blood Pressure [Right Arm] 118/77 Blood Pressure Mean [Right Arm] 90 Blood Pressure Position [Right Arm] Lying Pulse Oximetry 100 Oxygen Delivery Method Room Air Laboratory Data 06/05/24 16:26 06/05/24 16:26 Lab Results 06/05/24 06/05/24 06/05/24 Range/Units 15:48 16:25 16:26 WBC Cancelled 3.04 L RBC Cancelled 3.80 L Hgb Cancelled 10.7 L Hct Cancelled 33.1 L MCV Cancelled 87.1 MCH Cancelled 28.2 MCHC Cancelled 32.3 RDW Std Deviation Cancelled 47.8 H RDW Coeff of Rogerio Cancelled 15.0 H Plt Count Cancelled 218 MPV Cancelled 9.8 Immature Gran % (Auto) Cancelled 0.0 Neut % (Auto) Cancelled 49.4 Lymph % (Auto) Cancelled 39.1 [place] % (Auto) Cancelled 9.5 Eos % (Auto) Cancelled 1.3 Baso % (Auto) Cancelled 0.7 Neut # (Auto) Cancelled 1.50 Lymph # (Auto) Cancelled 1.19 L [place] # (Auto) Cancelled 0.29 Eos # (Auto) Cancelled 0.04 Baso # (Auto) Cancelled 0.02 Immature Gran # (Auto) Cancelled 0.00 L Absolute Nucleated RBC Cancelled Nucleated RBC % (auto) Cancelled Neutrophils % (Manual) Cancelled Band Neutrophils % Cancelled Lymphocytes % (Manual) Cancelled Prolymphocyte % Cancelled Reactive Lymphs % (Man) Cancelled Monocytes % (Manual) Cancelled Eosinophils % (Manual) Cancelled Basophils % (Manual) Cancelled Metamyelocytes % (Man) Cancelled Myelocytes % (Man) Cancelled Promyelocytes % (Man) Cancelled Blast Cells % (Manual) Cancelled Plasma Cell % (Manual) Cancelled Other Cells % Cancelled Nucleated RBC % Cancelled Neutrophils # (Manual) Cancelled Band Neutrophils # Cancelled Total Absolute Neuts Cancelled Lymphocytes # (Manual) Cancelled Prolymphocyte # Cancelled Reactive Lymphs # Cancelled Total Abs Lymphocytes Cancelled Monocytes # (Manual) Cancelled Eosinophils # (Manual) Cancelled Basophils # (Manual) Cancelled Metamyelocytes # (Man) Cancelled Myelocytes # (Manual) Cancelled Promyelocytes # (Man) Cancelled Blast Cells # (Man) Cancelled Plasma Cell # (Manual) Cancelled Other Cells # Cancelled Nucleated RBCs # (Man) Cancelled Hypersegmented Neuts Cancelled Hyposegmented Neuts Cancelled Hypogranular Neuts Cancelled Large Granular Lymphs Cancelled # Lrg Granular Lymphs Cancelled Hairy Cells Cancelled Smudge Cells Cancelled Toxic Granulation Cancelled Toxic Vacuolation Cancelled Dohle Bodies Cancelled Richy Rods Cancelled Platelet Estimate Cancelled Hypogranular Platelets Cancelled Giant Platelets Cancelled Platelet Satelliting Cancelled RBC Morphology Cancelled Polychromasia Cancelled Hypochromasia Cancelled Poikilocytosis Cancelled Basophilic Stippling Cancelled Anisocytosis Cancelled Microcytosis Cancelled Macrocytosis Cancelled Spherocytes Cancelled Pappenheimer Bodies Cancelled Sickle Cells Cancelled Target Cells Cancelled Tear Drop Cells Cancelled Ovalocytes Cancelled Stomatocytes Cancelled Jennings-Bear Grass Bodies Cancelled Echinocytes Cancelled Acanthocytes (Spur) Cancelled Rouleaux Cancelled RBC Agglutinates Cancelled Schistocytes Cancelled Sezary Cell Cancelled Sodium 137 (136-145) mmol/L Potassium TNP 4.1 Chloride 104 (98-107) mmol/L Carbon Dioxide 30 (21-32) mmol/L Anion Gap 3 (3-11) BUN 19 (6-23) mg/dl Creatinine 1.21 (0.6-1.4) mg/dl Est Cr Clr Drug Dosing Not Reportable eGFR 68.12 BUN/Creatinine Ratio 15.7 (10-20) Glucose 121 H (70-99(Fasting)) mg/dl Calcium 9.2 (8.6-10.3) mg/dl Total Bilirubin 0.8 (0.2-1.0) mg/dl AST TNP 18 ALT 12 (7-52) U/L Alkaline Phosphatase 122 H (34-104) U/L Total Protein 6.0 (6.0-8.3) gm/dl Albumin 3.9 (3.4-5.0) gm/dl Globulin 2.1 L (2.5-4.0) gm/dl Albumin/Globulin Ratio 1.9 (0.9-2) Procalcitonin Cancelled < 0.02 Blood Parasites ID Cancelled Administered Medications Allopurinol (Allopurinol 300 Mg Tab) 300 mg PO DAILY CARL Stop: 07/06/24 08:59 Last Admin: 06/06/24 09:54 Dose: 300 mg Documented By: EDH Enoxaparin Sodium (Enoxaparin Inj 40 Mg/0.4 Ml Syr) 40 mg SQ Q24H CARL Stop: 07/05/24 20:59 Last Admin: 06/05/24 21:52 Dose: 40 mg Documented By: ELOISE Famotidine (Famotidine 40 Mg Tablet) 40 mg PO HS CARL Stop: 07/05/24 21:02 Last Admin: 06/05/24 21:53 Dose: 40 mg Documented By: ELOISE Sodium Chloride (Nss) 1,000 mls @ 80 mls/hr IV .[id number] [facility] Stop: 06/06/24 18:59 Last Admin: 06/06/24 09:54 Dose: 80 mls/hr Documented By: Infusion: 06/06/24 09:54 Dose: Infused Documented By: Admin: 06/05/24 22:09 Dose: 80 mls/hr Documented By: ELOISE Daptomycin 500 mg/ Syringe 10 mls @ 5 mls/min IV Q24H [facility]; Protocol Stop: 06/07/24 20:59 Last Admin: 06/05/24 21:52 Dose: 5 mls/min Documented By: ELOISE Cefepime HCl (Maxipime 2000mg) 1,000 mg in 10 mls @ 5 mls/min IV Q8H [facility] Stop: 06/08/24 01:59 Last Admin: 06/06/24 17:30 Dose: 5 mls/min Documented By: Admin: 06/06/24 09:55 Dose: 5 mls/min Documented By: Admin: 06/06/24 02:18 Dose: 5 mls/min Documented By: ELOISE Lactobacillus Acidophilus (Advanced Probiotic 625 Mg Capsule) 625 mg PO DAILY [facility] Stop: 07/06/24 08:59 Last Admin: 06/06/24 09:54 Dose: 625 mg Documented By: TERRANCE Memantine (Memantine Hcl 10 Mg Tab) 10 mg PO BID [facility] Stop: 07/05/24 21:02 Last Admin: 06/06/24 09:54 Dose: 10 mg Documented By: Admin: 06/05/24 21:53 Dose: 10 mg Documented By: ELOISE Morphine Sulfate (Morphine Sulfate Cr 15 Mg Tabcr) 15 mg PO BID [facility] Stop: 06/19/24 21:02 Last Admin: 06/06/24 09:55 Dose: 15 mg Documented By: Admin: 06/05/24 22:09 Dose: 15 mg Documented By: ELOISE Olanzapine (Olanzapine 5 Mg Tablet) 5 mg PO HS [facility] Stop: 07/05/24 21:02 Last Admin: 06/05/24 21:54 Dose: 5 mg Documented By: LAWANDAA Ondansetron HCl (Ondansetron Inj 2 Mg/Ml 2 Ml Vial) 4 mg IV Q6H PRN PRN Reason: Nausea Stop: 07/05/24 18:38 Last Admin: 06/06/24 12:11 Dose: 4 mg Documented By: TERRANCE Pantoprazole Sodium (Pantoprazole 40 Mg Tab) 40 mg PO BID CARL Stop: 07/05/24 21:02 Last Admin: 06/06/24 09:55 Dose: 40 mg Documented By: Admin: 06/05/24 21:53 Dose: 40 mg Documented By: LAWANDAA Tamsulosin HCl (Tamsulosin Hcl 0.4 Mg Cap) 0.4 mg PO DAILY CARL Stop: 07/06/24 08:59 Last Admin: 06/06/24 09:55 Dose: 0.4 mg Documented By: TERRANCE Trazodone HCl (Trazodone Hcl 50 Mg Tab) 50 mg PO HS CARL Stop: 07/05/24 21:02 Last Admin: 06/05/24 21:54 Dose: 50 mg Documented By: ELOISE Discontinued Medications Cyclobenzaprine HCl (Cyclobenzaprine Hcl 10 Mg Tab) 10 mg PO BID CARL Stop: 07/05/24 21:02 Last Admin: 06/05/24 21:53 Dose: 10 mg Documented By: LRA Sodium Chloride (Nss) 500 mls @ 999 mls/hr IV .Q31M ONE Stop: 06/05/24 15:41 Last Infusion: 06/05/24 16:32 Dose: Infused Documented By: Admin: 06/05/24 16:06 Dose: 999 mls/hr Documented By: SRL Cefepime HCl (Maxipime 2000mg) 2,000 mg in 20 mls @ 5 mls/min IV NOW STA; Protocol Stop: 06/05/24 17:13 Last Admin: 06/05/24 17:24 Dose: 5 mls/min Documented By: SUMA Lidocaine HCl (Lidocaine 2% Jelly 5 Ml Tube) 5 ml EXT NOW ONE Stop: 06/05/24 15:12 Last Admin: 06/05/24 16:06 Dose: 5 ml Documented By: SRL Mirtazapine (Mirtazapine Tab 15 Mg Tab) 30 mg PO HS CARL Stop: 07/05/24 21:02 Last Admin: 06/05/24 21:54 Dose: 30 mg Documented By: LRA Miscellaneous (Patient's Height &/Or Weight Needed) 1 each N/A NOW STA Stop: 06/05/24 17:26 Last Admin: 06/05/24 18:00 Dose: Not Given Documented By: MNE Discharge Plan Visit Data Chief Complaint: Catheter Replacement Stated Complaint: CATH NEEDS CHANGED/POSSIBLY PULLED OUT SOME ED Provider: Atiya Hernandez Discharge Problem: Dislodged Newman catheter, Dementia, Acute UTI (urinary tract infection) Patient Disposition: Home - Self-Care Discharge Instructions Interventions: ED Discharge Assessment Last Done: 06/05/24 20:27
[2024-06-05] MEDS: SODIUM CHLORIDE 0.9% 500 ML IV ONE (16:06)
[2024-06-05] MEDS: LIDOCAINE 2% JELLY 5 ML TUBE EXT ONE (16:06)
[2024-06-05 16:30] LABS: Appearance Urine Clear (Clear); Bilirubin Urine Negative (Negative); Blood Urine 2+ (Negative); Cast Urine Automated 0-2 /lpf (0-2); Color Urine Yellow; Epithelial Cell Urine Auto 0-2 /hpf (0-2); Glucose Urine UA Negative (Negative); Ketones Urine Negative (Negative); Leukocyte Esterase Urine 2+ (Negative); Nitrite Urine Positive (Negative); Protein Urine Negative (Negative); Specific Gravity Urine 1.012 (1.000-1.030); Urobilinogen Urine Negative (Negative); pH Urine 5.5 (4.5-7.5)
[2024-06-05 16:47] LABS: Bacteria Urine Automated 1+ (None Seen)
[2024-06-05 16:57] LABS: Alanine Aminotransferase 12 U/L (7-52); Albumin Globulin Ratio 1.9 (0.9-2); Albumin Level 3.9 gm/dl (3.4-5.0); Alkaline Phosphatase 122 U/L (34-104); Anion Gap 3 (3-11); BUN Creatinine Ratio 15.7 (10-20); Bilirubin,Total 0.8 mg/dl (0.2-1.0); Blood Urea Nitrogen 19 mg/dl (6-23); Calcium 9.2 mg/dl (8.6-10.3); Carbon Dioxide 30 mmol/L (21-32); Chloride 104 mmol/L (98-107); Globulin 2.1 gm/dl (2.5-4.0); Glucose 121 mg/dl (70-99(Fasting)); Sodium 137 mmol/L (136-145)
[2024-06-05 17:15] LABS: Basophils # (auto) 0.02 K/uL (0.00-0.20); Basophils % (auto) 0.7 %; Eosinophils # (auto) 0.04 K/uL (0.00-0.50); Eosinophils % (auto) 1.3 %; Hematocrit (blood only) 33.1 % (42.0-52.0); Hemoglobin 10.7 g/dl (14.0-18.0); Lymphocytes # (auto) 1.19 K/uL (1.20-3.40); Lymphocytes % (auto) 39.1 %; Mean Corpuscular Hemoglobin 28.2 pg (25.0-34.0); Mean Corpuscular Hgb Conc 32.3 g/dL (32.0-36.0); Mean Corpuscular Volume 87.1 fL (80.0-100.0); Mean Platelet Volume 9.8 fL (9.4-12.4); Monocytes # (auto) 0.29 K/uL (0.11-0.59); Monocytes % (auto) 9.5 %; Neutrophils % (auto) 49.4 %; Platelet Count 218 K/uL (130-400); Potassium 4.1 mmol/L (3.5-5.1); RDW Standard Deviation 47.8 fL (36.4-46.3); White Blood Count 3.04 K/ul (4.8-10.8)
[2024-06-05] MEDS: CEFEPIME 2000MG 2,000 MG/20 ML SYR IV STA (17:24)
[2024-06-05] MEDS ORDERED: DAPTOmycin 525 MG in SYRINGE 0 ML IV SCH (17:45)
[2024-06-05] MEDS: Patient's HEIGHT &/or WEIGHT Needed STA (18:00)
--- NOTE | 2024-06-05 18:50 | History & Physical Report ---
Date of Service June 05, 2024 Assessment & Plan (1) Acute UTI (urinary tract infection): Plan: #AMS likely 2/2 MDR UTI, with previous history if similar admissions -abx per pharmacy and ED discussion -ID consult tomorrow per protocol for further evaluation based on culture results -fluid resuscitation -monitor VS #Gout #Severe dementia #TBI, Spinal fusion, skull fracture #Nephrolithiasis #LUC #CAD, GERD -home meds IVF Regular diet DVT ppx History of Present Illness Primary Care Provider: Charles Mayer, DO 59M pmh MDR UTI, gout, severe dementia, TBI, CAD, RUL pulmonary nodule, GERD, gastric bypass, diverticulitis, CKD3, LUC, spinal fusion, skull fracture, nephrolithiasis who presents to the ED with AMS and dislodged parra tube. Patient has been increasingly confused per in the last 3-4 days, which is his usual symptom of UTI. Patient with admissions in the past for similar presentations. History of significant MDR UTIs in the past. This AM patient's states patient tugged at parra and she noted a small hole in the tube, for which the home health nurse recommended ED evaluation. Given the history of MDR, admission is recommended for ID consultation as well as appropriate abx choice. Pharmacist and ED physician discussed previous cultures before initiation of current regimen. On my evaluation patient is AAOx0, though states he has no current complaints, including fever, chills, abd pain, any other issues. Allergies Allergy/AdvReac Type Severity Reaction Status Date / Time Penicillins Allergy Severe SEE COMMENT Verified 03/09/24 03:24 erythromycin base Allergy Intermediate Itching Verified 03/09/24 03:24 indomethacin Allergy Intermediate HIVES Verified 03/09/24 03:24 neomycin Allergy Intermediate BLISTERS Verified 03/09/24 03:24 vancomycin Allergy Intermediate ITCHING--ALL Verified 03/09/24 03:24 MYCIN DRUGS fentanyl AdvReac Severe "DID NOT Verified 03/09/24 03:24 TOLERATE"-patch- "went nuts" ibuprofen AdvReac Severe Ulcer Verified 03/09/24 03:24 history ketorolac AdvReac Mild NAUSEA Verified 03/09/24 03:24 aspirin AdvReac Unknown "BLEEDING" Verified 03/09/24 03:24 S/P GASTRIC BYPASS Home Medications Medication Instructions Recorded Confirmed Type allopurinol 300 mg tablet 300 mg PO DAILY 05/12/24 06/05/24 History atorvastatin 10 mg tablet 10 mg PO DAILY 05/12/24 06/05/24 History cyclobenzaprine 10 mg tablet 10 mg PO BID 05/12/24 06/05/24 History famotidine 40 mg tablet 40 mg PO HS 05/12/24 06/05/24 History loratadine 10 mg tablet 10 mg PO DAILY 05/12/24 06/05/24 History lorazepam 1 mg tablet 1 mg PO TID PRN Anxiety 05/12/24 06/05/24 History melatonin 10 mg tablet 10 mg PO HS PRN Insomnia 05/12/24 06/05/24 History memantine 10 mg tablet 10 mg PO BID 05/12/24 06/05/24 History mirtazapine 30 mg tablet 30 mg PO HS 05/12/24 06/05/24 History morphine 15 mg tablet,extended 15 mg PO BID 05/12/24 06/05/24 History release olanzapine 5 mg tablet 5 mg PO HS 05/12/24 06/05/24 History pantoprazole 40 mg tablet,delayed 40 mg PO BID 05/12/24 06/05/24 History release tamsulosin 0.4 mg capsule 0.4 mg PO DAILY 05/12/24 06/05/24 History trazodone 50 mg tablet 50 mg PO HS 05/12/24 06/05/24 History L.acidop,casei,lactis,rham-B.lact,ita 1 cap PO DAILY 30 days #30 caps 05/19/24 06/05/24 Rx 625 mg (10 billion cell) capsule (Advanced Probiotic) oxycodone 10 mg tablet 10 mg PO UD PRN Pain 06/05/24 06/05/24 History oxycodone-acetaminophen 5 mg-325 1 tab PO UD 06/05/24 06/05/24 History mg tablet Past Med/Surg History Problem List (Updated 06/05/24 @ 17:41 by Atiya Hernandez DO) Acute UTI (urinary tract infection) (Acute) Dislodged Parra catheter (Acute) AMS (altered mental status) Influenza A (Acute) Acute UTI (Acute) Gram-negative bacteremia BPH (benign prostatic hyperplasia) Dementia (Acute) Hyperlipidemia Chronic gout Catheter-associated urinary tract infection (Acute) Hypomagnesemia (Acute) Hypokalemia (Acute) Acute UTI (Acute) Sepsis (Acute) Discussion about advance care planning held with family member Palliative care by specialist Dementia with behavioral disturbance Weakness generalized CKD stage 3b, GFR 30-44 ml/min BPH (benign prostatic hyperplasia) Vascular dementia Urinary retention Chest pain (Acute) Encephalopathy Postlaminectomy syndrome of lumbosacral region Hyponatremia (Acute) Dementia (Acute) QT prolongation Delirium due to another medical condition, acute, hyperactive Agitation Alcohol abuse (Acute) AMS (altered mental status) (Acute) Major neurocognitive disorder as late effect of traumatic brain injury with behavioral disturbance Frequent falls (Acute) Altered mental status (Acute) Confusion Right ureteral stone Encounter for pre-operative examination Anemia (Acute) IRON DEFICIENT ANEMIA AND REC'D IV IRON 10/06. Baseline HGB since 2017 ~9 HLD (hyperlipidemia) Gout Back pain FROM ACCIDENT AND 7 DIFFERENT FX AND FUSION GERD (gastroesophageal reflux disease) (Acute) Anxiety History of renal stone (Acute) S/P cysto/litho/stent 10/07 History of diverticulitis of colon remote Medical History (Updated 06/05/24 @ 17:41 by Atiya Hernandez DO) History of fracture of right ankle Hx of fracture of skull 7 FX AND HAS SOME PROBLEMS WITH MEMORY Gastric ulcer Hydronephrosis B/L per [facility] 10/12/18 Surgical History S/P ureteral stent placement History of cystoscopy W/ LITHO/BASKET STONE EXTRACTION - 10/07/18 [facility]. LMA #5. History of surgery on left wrist History of arthroscopy of right shoulder Hx of right knee surgery S/P insertion of intrathecal pump FOLLOW WITH DR LAKIA PACKER FROM [place] History of back surgery UPPER BACK FUSION, 7 DIFFERENT FRACTURES AND MULTIPLE SURGERIES AND IS FUSED multiple revisions H/O inguinal hernia repair H/O lithotripsy S/P exploratory laparotomy (Unknown) 2010 RUPTURED DIVERTICULI S/P appendectomy (Unknown) S/P cholecystectomy (Unknown) S/P gastric bypass mike en y (2010) Family History Mother DM type 2 (diabetes mellitus, type 2) Father DM type 2 (diabetes mellitus, type 2) Social History Smoking Status: Never smoker Tobacco Type: Smokeless Tobacco (Dip or Chew) Second Hand Exposure: No; Do You Dip or Chew Tobacco: No; Hx Alcohol Use: No Hx Substance Use: No Preferred Language: Lithuanian Communication Ability: Impaired Communication Ability Comment: Unable to write per spouse & reading difficulty Visual Impairment: No Limitations Outreach Team Member Required: No Beliefs That Will Affect Care: None Current Living Situation: Spouse Current Living Situation Comment: lives with Feels Safe at Home: Yes Assistive Devices: Walker and Wheelchair Review of Systems Constitutional: no fever, no chills, no body aches and no malaise Gastrointestinal: no abdominal pain, no nausea and no vomiting Genitourinary: no dysuria, no urinary frequency or no post-void dribbling Physical Exam Constitutional: well developed and well nourished Respiratory: normal respiratory effort, lungs clear to auscultation Gastrointestinal (Abdomen): normal bowel sounds, soft, nontender, no hepatosplenomegaly Genitourinary: Parra in place Results & Data Results & Data Vital Signs (Past 12 Hours) Vital Signs Temp Pulse Pulse Resp BP BP Pulse Ox 06/05/24 17:37 64 16 118/77 100 06/05/24 14:51 36.4 C L 83 16 116/79 94 O2 Del Method 06/05/24 17:37 Room Air 06/05/24 14:51 Room Air Laboratory Results Abnormal lab results 06/05/24 06/05/24 06/05/24 Range/Units 15:48 16:26 Unknown WBC 3.04 L (4.8-10.8) K/ul RBC 3.80 L (4.70-6.10) M/uL Hgb 10.7 L (14.0-18.0) g/dl Hct 33.1 L (42.0-52.0) % RDW Std Deviation 47.8 H (36.4-46.3) fL RDW Coeff of Rogerio 15.0 H (11.5-14.5) % Lymph # (Auto) 1.19 L (1.20-3.40) K/uL Immature Gran # (Auto) 0.00 L (0.01-0.20) K/uL Glucose 121 H (70-99(Fasting)) mg/dl Alkaline Phosphatase 122 H (34-104) U/L Globulin 2.1 L (2.5-4.0) gm/dl Urine Blood 2+ H (Negative) Urine Nitrite Positive A (Negative) Ur Leukocyte Esterase 2+ H (Negative) Urine WBC (Auto) 6-10 H (0-5) /hpf Urine RBC (Auto) 11-20 H (0-2) /hpf Urine Bacteria (Auto) 1+ H (None Seen)
[2024-06-05] MEDS ORDERED: CEFEPIME 500MG 500 MG/5 ML SYR IV STA (18:52)
[2024-06-05] MEDS ORDERED: oxyCODONE/ACETAMINOPHEN 5mg/325mg TAB PO SCH (21:03)
[2024-06-05] MEDS ORDERED: oxyCODONE HCL IR 5 MG TAB (IMMEDIATE RELEASE) PO PRN (21:03)
[2024-06-05] MEDS ORDERED: LORazepam 1 MG TAB PO PRN (21:03)
[2024-06-05] MEDS ORDERED: MELATONIN 3 MG TAB PO PRN (21:11)
[2024-06-05] MEDS: DAPTOmycin 500 MG in SYRINGE 0 ML IV SCH (21:52)
[2024-06-05] MEDS: ENOXAPARIN INJ 40 MG/0.4 ML SYR SQ SCH (21:52)
[2024-06-05] MEDS: CYCLOBENZAPRINE HCL 10 MG TAB PO SCH (21:53)
[2024-06-05] MEDS: PANTOprazole 40 MG TAB PO SCH (21:53)
[2024-06-05] MEDS: MEMANTINE HCL 10 MG TAB PO SCH (21:53)
[2024-06-05] MEDS: FAMOTIDINE 40 MG TABLET PO SCH (21:53)
[2024-06-05] MEDS: OLANZapine 5 MG TABLET PO SCH (21:54)
[2024-06-05] MEDS: traZODone HCL 50 MG TAB PO SCH (21:54)
[2024-06-05] MEDS: MIRTAZAPINE TAB 15 MG TAB PO SCH (21:54)
[2024-06-05] MEDS: MoRPHine SULFATE CR 15 MG TABCR PO SCH (22:09)
[2024-06-05] MEDS: SODIUM CHLORIDE 0.9% 1,000 ML IV SCH (22:09)
[2024-06-06] MEDS: CEFEPIME 1000MG 1,000 MG/10 ML SYR IV SCH (02:18)
[2024-06-06] MEDS ORDERED: ATORVASTATIN 10 MG TAB PO SCH (09:00)
[2024-06-06] MEDS ORDERED: LORATADINE 10 MG TAB PO SCH (09:00)
[2024-06-06] MEDS: ADVANCED PROBIOTIC 625 MG CAPSULE PO SCH (09:54)
[2024-06-06] MEDS: allopurinoL 300 MG TAB PO SCH (09:54)
[2024-06-06] MEDS: TAMSULOSIN HCL 0.4 MG CAP PO SCH (09:55)
[2024-06-06] MEDS: ONDANSETRON INJ 2 MG/ML 2 ML VIAL IV PRN (12:11)
--- NOTE | 2024-06-06 12:25 | Hospitalist Progress Note ---
Date of Service June 06, 2024 Assessment & Plan (1) Acute UTI (urinary tract infection): (2) Dislodged Newman catheter: (3) Dementia: (4) Catheter-associated urinary tract infection: (5) Dementia with behavioral disturbance: Plan #Acute Metabolic Encephalopathy likely 2/2 MDR UTI #Severe Dementia -mentation much improved this morning Plan: -abx per pharmacy and ED discussion -awaiting sensitivities -delirium precautions -limit anticholinergic medications -PT/OT ordered -decrease mirtazapine to 15mg to promote sleep/wake cycle (less activating at this dose if taking at night) -decrease melatonin to 3mg nightly (per recent geriatric literature) #Chronic Pain Syndrome #TBI with Spinal Fusion -patient on opioid therapies which are likely worsening mentation -noted increase opioid prescriptions over past few months, likely coinciding with worsening mentation -unclear reason for long acting pain medications Plan: -decrease oxycodone to 5mg -titrate off of MS contin outpatient, likely causing worsening activation due to serotinergic properties -stop cyclobenzaprine -stop ativan as not prescribed outpatient and likely to make agitation worse in long run #Gout #Severe dementia #TBI, Spinal fusion, skull fracture #Nephrolithiasis #LUC #CAD, GERD -home meds Feeding/fluids: regular Analgesia: oxycodone, MS contin Sedation: na Thromboprophylaxis: lovenox Head up position: na Ulcer prophylaxis: na Glycemic control: na Spontaneous breathing trial: na Bowel care: miralax prn Indwelling catheter removal: dislodged Deescalation of antibiotics: await sensitivites I spent a total of 55 minutes in direct patient care, including [id number] time with the patient and/or family, reviewing medical records, ordering and reviewing diagnostic tests, and coordinating care with other healthcare providers. This time includes: history taking, physical examination, medical decision making, counseling, ECG interpretation, imaging interpretation, lab interpretation, orders, and education, excluding time spent in the performance of separately billed services. Admission and Anticipated Discharge Date Admission Date: June 05, 2024 Subjective patient seen and examined at bedside. Patient mentation is much better this morning. Is alert and oriented to self, place, not so much to time. He states he is very comfortable at this time. Review of Systems Review of Systems: CONSTITUTIONAL: Patient denies fevers, chills, sweats and weight changes. EYES: Patient denies any visual symptoms. EARS, NOSE, AND THROAT: No difficulties with hearing. No symptoms of rhinitis or sore throat. CARDIOVASCULAR: Patient denies chest pains, palpitations, orthopnea and paroxysmal nocturnal dyspnea. RESPIRATORY: No dyspnea on exertion, no wheezing or cough. GI: No nausea, vomiting, diarrhea, constipation, abdominal pain, hematochezia or melena. : No urinary hesitancy or dribbling. No nocturia or urinary frequency. No abnormal urethral discharge. MUSCULOSKELETAL: No myalgias or arthralgias. NEUROLOGIC: No chronic headaches, no seizures. Patient denies numbness, tingling or weakness. PSYCHIATRIC: Patient denies problems with mood disturbance. No problems with a nxiety. ENDOCRINE: No excessive urination or excessive thirst. DERMATOLOGIC: Patient denies any rashes or skin changes. Physical Exam Physical Exam: Gen: A&O 2 NAD HEENT: NCAT, EOMI, not icteric. External ears normal. No rhinorrhea. Moist mucous membranes. Neck: Supple, full range of motion, no observable masses, No meningeal sign. Lungs: No Respiratory distress. CV: RRR, no edema. Abdomen: Soft, nondistended, No rebound tenderness. MSK: No joint swelling, no redness. Skin: No rashes, petechiae, lesions. Normal color per patient. Neuro: Normal Gait, Grossly intact. Results & Data Results & Data Vital Signs (Past 12 Hours) Vital Signs Temp Pulse Resp BP Pulse Ox O2 Del Method 06/06/24 07:47 36.3 C L 67 18 125/80 100 Room Air Laboratory Results -personally reviewed, complex UTI noted awaiting sensitivities Medications Administered Allopurinol (Allopurinol 300 Mg Tab) 300 mg PO DAILY [facility] Stop: 07/06/24 08:59 Last Admin: 06/06/24 09:54 Dose: 300 mg Documented By: EDH Enoxaparin Sodium (Enoxaparin Inj 40 Mg/0.4 Ml Syr) 40 mg SQ Q24H CARL Stop: 07/05/24 20:59 Last Admin: 06/05/24 21:52 Dose: 40 mg Documented By: LRA Famotidine (Famotidine 40 Mg Tablet) 40 mg PO HS CARL Stop: 07/05/24 21:02 Last Admin: 06/05/24 21:53 Dose: 40 mg Documented By: ELOISE Sodium Chloride (Nss) 1,000 mls @ 80 mls/hr IV .[id number] [facility] Stop: 06/06/24 18:59 Last Admin: 06/06/24 09:54 Dose: 80 mls/hr Documented By: Infusion: 06/06/24 09:54 Dose: Infused Documented By: Admin: 06/05/24 22:09 Dose: 80 mls/hr Documented By: ELOISE Daptomycin 500 mg/ Syringe 10 mls @ 5 mls/min IV Q24H [facility]; Protocol Stop: 06/07/24 20:59 Last Admin: 06/05/24 21:52 Dose: 5 mls/min Documented By: ELOISE Cefepime HCl (Maxipime 2000mg) 1,000 mg in 10 mls @ 5 mls/min IV Q8H [facility] Stop: 06/08/24 01:59 Last Admin: 06/06/24 09:55 Dose: 5 mls/min Documented By: Admin: 06/06/24 02:18 Dose: 5 mls/min Documented By: ELOISE Lactobacillus Acidophilus (Advanced Probiotic 625 Mg Capsule) 625 mg PO DAILY [facility] Stop: 07/06/24 08:59 Last Admin: 06/06/24 09:54 Dose: 625 mg Documented By: TERRANCE Memantine (Memantine Hcl 10 Mg Tab) 10 mg PO BID [facility] Stop: 07/05/24 21:02 Last Admin: 06/06/24 09:54 Dose: 10 mg Documented By: Admin: 06/05/24 21:53 Dose: 10 mg Documented By: ELOISE Mirtazapine (Mirtazapine Tab 15 Mg Tab) 30 mg PO HS [facility] Stop: 07/05/24 21:02 Last Admin: 06/05/24 21:54 Dose: 30 mg Documented By: ELOISE Morphine Sulfate (Morphine Sulfate Cr 15 Mg Tabcr) 15 mg PO BID [facility] Stop: 06/19/24 21:02 Last Admin: 06/06/24 09:55 Dose: 15 mg Documented By: Admin: 06/05/24 22:09 Dose: 15 mg Documented By: LAWANDAA Olanzapine (Olanzapine 5 Mg Tablet) 5 mg PO [facility] Stop: 07/05/24 21:02 Last Admin: 06/05/24 21:54 Dose: 5 mg Documented By: ELOISE Ondansetron HCl (Ondansetron Inj 2 Mg/Ml 2 Ml Vial) 4 mg IV Q6H PRN PRN Reason: Nausea Stop: 07/05/24 18:38 Last Admin: 06/06/24 12:11 Dose: 4 mg Documented By: TERRANCE Pantoprazole Sodium (Pantoprazole 40 Mg Tab) 40 mg PO BID [facility] Stop: 07/05/24 21:02 Last Admin: 06/06/24 09:55 Dose: 40 mg Documented By: Admin: 06/05/24 21:53 Dose: 40 mg Documented By: ELOISE Tamsulosin HCl (Tamsulosin Hcl 0.4 Mg Cap) 0.4 mg PO DAILY [facility] Stop: 07/06/24 08:59 Last Admin: 06/06/24 09:55 Dose: 0.4 mg Documented By: ETRRANCE Trazodone HCl (Trazodone Hcl 50 Mg Tab) 50 mg PO HS [facility] Stop: 07/05/24 21:02 Last Admin: 06/05/24 21:54 Dose: 50 mg Documented By: ELOISE (4) Catheter-associated urinary tract infection Encounter type: initial encounter Indwelling urinary catheter type: indwelling urethral catheter Qualified Code(s): T83.511A - Infection and inflammatory reaction due to indwelling urethral catheter, initial encounter; N39.0 - Urinary tract infection, site not specified
[2024-06-06] MEDS ORDERED: oxyCODONE HCL IR 5 MG TAB (IMMEDIATE RELEASE) PO PRN (12:29)
[2024-06-06] MEDS ORDERED: POLYETHYLENE (MIRALAX) 17 GM PACK PO PRN (12:37)
[2024-06-06] MEDS: MIRTAZAPINE TAB 15 MG TAB PO SCH (20:36)
[2024-06-06] MEDS: MELATONIN 3 MG TAB PO PRN (20:37)
[2024-06-07 07:42] VITALS: RESP 18
[2024-06-07 11:51] VITALS: BP 108/68; PULSE 90; TEMP 98.4; O2SAT 98
--- NOTE | 2024-06-07 17:14 | Discharge Summary ---
Discharge Summary Date of Service June 07, 2024 Principal Dx & Hospital Course #1 = Principal Diagnosis (1) Acute UTI (urinary tract infection): (2) Dislodged Parra catheter: (3) Dementia: (4) Catheter-associated urinary tract infection: (5) Dementia with behavioral disturbance: Plan #Acute Metabolic Encephalopathy likely 2/2 MDR UTI #Severe Dementia -mentation much improved this morning Plan: -abx per pharmacy and ED discussion -awaiting sensitivities -delirium precautions -limit anticholinergic medications -PT/OT ordered -continue mirtazapine to 15mg to promote sleep/wake cycle (less activating at this dose if taking at night) -continue melatonin to 3mg nightly (per recent geriatric literature) #Chronic Pain Syndrome #TBI with Spinal Fusion -patient on opioid therapies which are likely worsening mentation -noted increase opioid prescriptions over past few months, likely coinciding with worsening mentation -unclear reason for long acting pain medications Plan: -decrease oxycodone to 5mg -titrate off of MS contin outpatient, likely causing worsening activation due to serotinergic properties #Gout #Severe dementia #TBI, Spinal fusion, skull fracture #Nephrolithiasis #LUC #CAD, GERD -home meds Notes For Next Care Provider 59M pmh MDR UTI, gout, severe dementia, TBI, CAD, RUL pulmonary nodule, GERD, gastric bypass, diverticulitis, CKD3, LUC, spinal fusion, skull fracture, nephrolithiasis who presents to the ED with AMS and dislodged parra tube. On admission to medicine, patient mentation improved. Discussed with at length, UTI unlikely cause of symptoms given minimal growth on cultures. Likely is patient is having progressive dementia, which has now likely progressed to severe stage. made medication adjustments to help decrease activation and improve sleep. Patient will need memory unit soon, discussed with case management who provided resources. Medication Changes From Visit -seroquel prn, decreased mirtazapine, decreased melatonin Admission HPI Per Admitting Provider 59M pmh MDR UTI, gout, severe dementia, TBI, CAD, RUL pulmonary nodule, GERD, gastric bypass, diverticulitis, CKD3, LUC, spinal fusion, skull fracture, nephrolithiasis who presents to the ED with AMS and dislodged parra tube. Patient has been increasingly confused per in the last 3-4 days, which is his usual symptom of UTI. Patient with admissions in the past for similar presentations. History of significant MDR UTIs in the past. This AM patient's states patient tugged at parra and she noted a small hole in the tube, for which the home health nurse recommended ED evaluation. Given the history of MDR, admission is recommended for ID consultation as well as appropriate abx choice. Pharmacist and ED physician discussed previous cultures before initiation of current regimen. On my evaluation patient is AAOx0, though states he has no current complaints, including fever, chills, abd pain, any other issues. Discharge Exam Gen: A&O 1 NAD HEENT: NCAT, EOMI, not icteric. External ears normal. No rhinorrhea. Moist mucous membranes. Neck: Supple, full range of motion, no observable masses, No meningeal sign. Lungs: No Respiratory distress. CV: RRR, no edema. Abdomen: Soft, nondistended, No rebound tenderness. MSK: No joint swelling, no redness. Skin: No rashes, petechiae, lesions. Normal color per patient. Neuro: Normal Gait, Grossly intact. Updated Medication List Medication Instructions Recorded Confirmed Type allopurinol 300 mg tablet 300 mg PO DAILY 05/12/24 06/05/24 History atorvastatin 10 mg tablet 10 mg PO DAILY 05/12/24 06/05/24 History cyclobenzaprine 10 mg tablet 10 mg PO BID 05/12/24 06/05/24 History famotidine 40 mg tablet 40 mg PO HS 05/12/24 06/05/24 History loratadine 10 mg tablet 10 mg PO DAILY 05/12/24 06/05/24 History lorazepam 1 mg tablet 1 mg PO TID PRN Anxiety 05/12/24 06/05/24 History memantine 10 mg tablet 10 mg PO BID 05/12/24 06/05/24 History morphine 15 mg tablet,extended 15 mg PO BID 05/12/24 06/05/24 History release olanzapine 5 mg tablet 5 mg PO HS 05/12/24 06/05/24 History pantoprazole 40 mg tablet,delayed 40 mg PO BID 05/12/24 06/05/24 History release tamsulosin 0.4 mg capsule 0.4 mg PO DAILY 05/12/24 06/05/24 History trazodone 50 mg tablet 50 mg PO HS 05/12/24 06/05/24 History L.acidop,casei,lactis,rham-B.lact,ita 1 cap PO DAILY 30 days #30 caps 25 06/05/24 Rx 625 mg (10 billion cell) capsule (Advanced Probiotic) oxycodone 10 mg tablet 10 mg PO UD PRN Pain 06/05/24 06/05/24 History melatonin 3 mg tablet 3 mg PO HS sleep #30 tabs 06/07/24 Rx mirtazapine 15 mg tablet 15 mg PO HS #30 tabs 06/07/24 Rx nitrofurantoin 100 mg PO BID 5 days #10 caps 06/07/24 Rx monohydrate/macrocrystals 100 mg capsule (Macrobid) quetiapine 25 mg tablet (Seroquel) 25 mg PO HS PRN agitation #10 tabs 06/07/24 Rx Hospital Stay Data Consultations 06/05/24 17:40 ED Decision to Admit Stat Pending Results Patient Have Any Pending Studies at Discharge: No Discharge Instructions Given to Patient (Per Discharging Provider) 1. Please take medications as prescribed. 2. Follow up with PCP, neurology, consider following up with geriatrics. 3. Start process for applying for memory care. 4. Can utilize seroquel prn for refractory agitation. Total Time Total Time Spent Total Time Spent (In Minutes): I spent a total of 45 minutes in direct patient care, including [id number] time with the patient and/or family, reviewing medical records, ordering and reviewing diagnostic tests, and coordinating care with other healthcare providers. This time includes: history taking, physical examination, medical decision making, counseling, ECG interpretation, imaging interpretation, lab interpretation, orders, and education, excluding time spent in the performance of separately billed services.
== END 2024-06-07 14:32 | disposition home or self-care (01) | DRG 698 ==
LOC: ED 14:43 → 3W 18:39 → SUATTDRO 18:39 → 3W 20:27

== ENCOUNTER 2024-06-26 16:01 | Inpatient (IN) ==
--- OUTSIDE RECORDS SUMMARY | 2024-06-26 16:10 | External Medical Summary | Summary of Care ---
Author Name Unknown Organization [facility] Address [address] [place] [address] Phone [phone] Care Team Providers Care It Analyst Name Role Phone Charles Mayer DO Primary Care Provider Reason for Visit * Reason Comments Outpatient Testing Encounter Details Date Type Department Care Team (Late st Contact Info) Description 06/17/2024 2:30 PM EDT Laboratory Laboratory, [facility] [address] [place] [phone] [facility] [address] [place] [address] Retention of urine Allergies Active Allergy Reactions Criticality Noted Date [...] as of this encounter (statuses as of 06/17/2024) Medications Pantoprazole Sodium 40 MG Oral Tablet Delayed Release (Protonix)Indicat ions:Acute gastric ulcer with hemorrhage TAKE ONE TABLET BY MOUTH TWICE A DAY - MORNING AND BEFORE BEDTIME 200 Tablet 1 10/02/2023 12:11 PM EDT 4 025 Active Allopurinol 300 MG Oral Tablet (Zyloprim)Indicat ions:Gout TAKE ONE TABLET BY MOUTH EVERY DAY 100 Tablet 1 02/24/2024 11:00 AM EST 4 Active Famotidine 40 MG Oral Tablet (Pepcid)Indicatio ns:Gastroesophage al reflux disease without esophagitis Take 1 Tablet by mouth in the morning. 30 Tablet 11 06/02/2024 10:42 AM EST 4 Active Additional Information Patient taking differently:40 mg Oral Daily(AM),Takes at bedtime, Reported on 06/17/2024 Loratadine 10 MG Oral Capsule Take 1 Capsule by mouth in the morning. Active Thiamine HCl 100 MG Oral Tablet [...] times a day as needed (pain). Active Memantine HCl 10 MG Oral Tablet (Namenda)Indicati ons:Other chronic pain Take 1 Tablet by mouth in the morning and 1 Tablet before bedtime. 60 Tablet 3 04/20/2024 11:36 AM EST 4 Active Tamsulosin HCl 0.4 MG Oral Capsule (Flomax)Indicatio ns:Other chronic pain Take 1 Capsule by mouth in the morning. 30 Capsule 3 04/20/2024 11:36 AM EST 4 Active OLANZapine 5 MG Oral Tablet (zyPREXA) Take 1 Tablet by mouth at bedtime. 90 Tablet 04/08/2024 8:22 AM EST 4 Active traZODone HCl 50 MG Oral Tablet (Desyrel)Indicati ons:Coronary artery disease involving [place] coronary artery of [place] heart without angina pectoris,Stage 3a chronic kidney disease (HCC),Gastroesoph ageal reflux disease without esophagitis,Demen tia (HCC) Take one-half tablet by mouth at bedtime as needed for insomnia 90 Tablet 3 06/02/2024 10:42 AM EST 5 Active Dexcom G7 Costume Design Teacher DeviceIndications :Severe dementia associated with other underlying disease, with other behavioral disturbance (HCC),Impaired fasting blood sugar Use as directed. Use to monitor blood sugar daily 1 Each 1 5 Active Dexcom G7 SensorIndications :Severe dementia associated with other underlying disease, with other behavioral disturbance (HCC),Impaired fasting blood sugar Use as directed every 10 days. 12 Each 3 5 Active Probiotic 250 MG Oral Capsule take 1 capsule orally daily for 30 days 30 Capsule 1 05/19/2024 1:01 PM EST 5 Active Sterile Water for Irrigation Irrigation Solution Irrigate parra once daily and as needed 1000 mL 5 5 Active Morphine Sulfate ER 15 MG Oral Tablet Extended Release (MS Contin)Indication s:Other chronic pain Take 1 Tablet by mouth in the morning and 1 Tablet at noon and 1 Tablet in the evening. 90 Tablet 05/25/2024 2:56 PM EST 5 Active Melatonin 3 MG Oral Tablet take 1 tablet by mouth at bedtime for sleep 100 Tablet 06/07/2024 3:18 PM EST 5 Active Mirtazapine 15 MG Oral Tablet (Remeron) take 1 tablet by mouth at bedtime 30 Tablet 06/07/2024 3:18 PM EST 5 Active QUEtiapine Fumarate 25 MG Oral Tablet (SEROquel) take 1 tablet by mouth at bedtime As Needed for agitation 10 Tablet 06/07/2024 3:18 PM EST 5 Active Finasteride 5 MG Oral Tablet (Proscar) Take 1 Tablet by mouth in the morning. 90 Tablet 3 06/10/2024 3:02 PM EST 5 Active oxyCODONE-Acetami nophen 5-325 MG Oral Tablet (Percocet)Indicat ions:History of trauma to spine Take 1 Tablet by mouth every 4 hours as needed for Pain, Severe. 30 Tablet 06/16/2024 11:25 AM EDT 5 Active Morphine Sulfate ER 30 MG Oral Tablet Extended Release (MS Contin)Indication s:Opioid dependence, uncomplicated (HCC),S/P spinal fusion Take 1 Tablet by mouth in the morning and 1 Tablet before bedtime. 60 Tablet 5 Active Hospital, Clinic, or Other Facility Administered Medication Ordered Dose Route Frequency Start Date End Date Status Vitamin B-12 (Cyanocobalamin) inj 1,000 mcgIndications:B12 deficiency 1000 mcg IM [id number] 06/17/2024 03/22/2027 Active documented as of this encounter (statuses as of 06/17/2024) Active Problems Problem Noted Date Diagnosed Date Chronic kidney disease, stage 3b 06/17/2024 Hypertensive heart disease w ith heart failure and stage 3 chronic kidney disease 06/14/2024 Opioid dependence, uncomplicated 05/25/2024 Heart failure 05/25/2024 Unspecified dementia, unspec ified severity, with other behavioral disturbance 05/25/2024 Vascular dementia 05/25/2024 Essential (primary) hypertension 05/25/2024 Hyperlipidemia 05/25/2024 [...] Coronary artery disease invo lving [place] heart without angina pectoris 04/18/2016 Anxiety 09/28/2014 Diverticulitis of colon 09/16/2014 [facility] OTHER*[id number] 09/14/2009 MEDICATION USE AGREEMENT 05/19/2008 Overview (05/19/2008): See kim GERD (gastroesophageal reflux disease) Gout S/P gastric bypass S/P spinal fusion documented as of this encounter (statuses as of 06/17/2024) Resolved Problems Problem Noted Date Diagnosed Date Resolved Date Stage 3 chronic kidney disease 05/25/2024 06/17/2024 Kidney disease, chronic, sta ge III (GFR 30-59 ml/min) 11/16/2018 02/17/2020 Overview: Per CKD protocol Well adult exam 04/18/2016 09/24/2018 Overview (06/01/2018): ??Need eval hypoglycemia? S/p gastric bypass. Pain mgmt Dr Syed Asencio--[facility] +pain pump 02/22 EGD-Gastric bypass with a normal-sized pouch. One visible staple was removed. Prior Gastrojejunal anastomosis ulcer healed, scar noted with moderate stenosis. Dilated up to 18 mm. 05/25 TTE Gr II [place] dys, normal EF, mild LAE. colonoscopy 5mm polyp PATH adenoma--elizabeth 1y w/2d prep 2014 cardiac cath--mod calc. Start atorvastatin Incomplete tear of right rotator cuff 04/15/2016 06/14/2024 Overview (04/15/2016): 04/23 Dr Eduardo guerrero. HTN, goal below 140/90 09/29/201502/12 Hypoglycemia 02/03/2015 [...] Tobacco use disorder 09/18/2009 011 Bariatric Proteinuria Research*[id number] 09/14/2009 12/27/2009 Organic sleep disorder 06/22/200910/10 Morbid [...] as of this encounter (statuses as of 06/17/2024) Immunizations Name Administration Dates Next Due COVID-19 [...] 05/10/2024 Transportation Needs Answer Date Record ed Do you have trouble getting a ride to medical visits or work? (Adult - for ages 18 years and over) Not on file 05/10/2024 Does your family have a hard [...] place to sleep at night? No 05/10/2024 Do you think you are at risk of becoming homeless? 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 Not on file Not on file documented as of this encounter Plan of Treatment Upcoming Encounters Date Type Department Care Team (Late st Contact Info) Description 06/22/2024 11:30 AM EDT Home Visit [facility], [facility] [address] [place] [address] Meghna Ramon, RN [address] [place] [address] 06/24/2024 1:00 PM EDT Nurse Only Urology, [facility] [address] [place] [address] [facility] Nurse Urology [facility] [address] [place] [address] 06/29/2024 3:00 PM EDT [facility] Visit [facility], [facility] [address] [address] Meghna Ramon, LUIS [address] [place] [address] 09/10/2024 2:00 PM EDT Office Visit [facility]rologReji Hollingsworth [address] [place] [address] Ruth Anguiano PA-C [address] [place] [address] 10/28/2024 11:40 AM EDT Office Visit Family Practice [facility] [address] [place] [address] Charles Mayer DO [address] [place] [address] Pending Results Name Type Priority Associated Diagnoses Date /Time PSA Lab Routine Retention of urine 06/17/2024 2:36 PM EDT Scheduled Procedures Name Priority Associated [...] Additional history exists CKD PHOS USE SMARTSET 85239 11/24/202411/06, 06/11/2023, 12/24/2019 Depression Screening 01/21/2025 01/22/2024 CKD HGB USE SMARTSET 50517 04/24/202504/24, 04/24/2024, 11/25/2023, Additional history exists Diabetes [...] this encounter Visit Diagnoses Diagnosis Retention of urine Retention of urine, unspecified documented in this encounter Advance Directives Documents on File Type Date Recorded 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 Care Teams It Analyst Relationship Specialty Start Date End Date Charles Mayer DO [facility] [place] [address] PCP - General Family Medicine 05/26/23 documented as of this encounter
--- OUTSIDE RECORDS SUMMARY | 2024-06-26 16:10 | External Medical Summary | Summary of Care ---
Author Name Unknown Organization [facility] Address [address] [facility] [address] Phone [phone] Care Team Providers Care Metal Ceiling Builder Name Role Phone Charles Mayer DO Primary Care Provider Reason for Referral * Medication Prior Authorization - Pending Review Specialty Diagnoses / Procedures Referred By Contnic t Referred To Contact Diagnoses Opioid dependence, uncomplicated (HCC) S/P spinal fusion Charles Mayer DO [address] [place] [address] Phone: tel: fax: Referral ID Status Reason Start Date Expiration Date V isits Requested Visits Authorized [id number] Pending Review [phone] Reason for Visit * Reason Comments Hospital Follow-Up Pt here for Hosp F/u , seen at [facility] for UTI, finished abx. Pt feeling better per pt's . Per , Hospitalist recommends placing pt in Memory Care unit/Facility. Encounter Details Date Type Department Care Team (Latest Contact Info) Description 06/17/2024 1:40 PM EDT Office Visit [facility] [address] [place] [address] Charles Mayer DO [address] [place] [address] Hypertensive heart disease with heart failure and stage 3a chronic kidney disease, unspecified heart failure type (HCC)*; Heart failure, unspecified HF chronicity, unspecified heart failure type (HCC); Coronary artery disease involving [place] heart without angina pectoris, unspecified vessel or lesion type; Unspecified dementia, unspecified severity, with other behavioral disturbance (HCC); Vascular dementia, unspecified dementia severity, unspecified whether behavioral, psychotic, or mood disturbance or anxiety (HCC); Opioid dependence, uncomplicated (HCC); S/P spinal fusion; B12 deficiency; Moderate 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); Chronic kidney disease, stage 3b (HCC) Allergies Active Allergy Reactions Criticality Noted [...] 1 4 12:11 PM EDT 06/22/19 24 2024 Active Allopurinol 300 MG Oral Tablet (Zyloprim)Indica tions:Gout TAKE ONE TABLET BY MOUTH EVERY DAY 100 Tablet 1 4 11:00 AM EST 10/01/19 24 Active Famotidine 40 MG Oral Tablet (Pepcid)Indicati ons:Gastroesopha geal reflux disease without esophagitis Take 1 Tablet by mouth in the morning. 30 Tablet 11 5 10:42 AM EST 10/23/19 24 Active Additional Information [...] 5 11:36 AM EST 03/17/20 24 Active OLANZapine 5 MG Oral Tablet (zyPREXA) Take 1 Tablet by mouth at bedtime. 90 Tablet 5 8:22 AM EST 04/05/20 24 Active traZODone HCl 50 MG Oral Tablet (Desyrel)Indicat ions:Coronary artery disease involving [place] coronary artery of [place] heart without angina pectoris,Stage 3a chronic kidney disease (HCC),Gastroesop hageal reflux disease without esophagitis,Oscar ntia (HCC) Take one-half tablet by mouth at bedtime as needed for insomnia 90 Tablet 3 5 10:42 AM EST 04/19/19 25 Active Dexcom G7 Accounting Systems Analyst DeviceIndication s:Severe dementia associated with other underlying disease, with other behavioral disturbance (HCC),Impaired fasting blood sugar Use as directed. Use to monitor blood sugar daily 1 Each 1 04/19/19 25 Active Dexcom G7 SensorIndication s:Severe dementia associated [...] needed 1000 mL 5 05/20/19 25 Active Morphine Sulfate ER 15 MG Oral Tablet Extended Release (MS Contin)Indicatio ns:Other chronic pain Take 1 Tablet by mouth in the morning and 1 Tablet at noon and 1 Tablet in the evening. 90 Tablet 5 2:56 PM EST 05/25/19 25 Active Melatonin 3 MG Oral Tablet take 1 tablet by mouth at bedtime for sleep 100 Tablet 5 3:18 PM EST 06/08/19 25 Active Mirtazapine 15 MG Oral Tablet (Remeron) take 1 tablet by mouth at bedtime 30 Tablet 5 3:18 PM EST 06/08/19 25 Active QUEtiapine Fumarate 25 MG Oral Tablet (SEROquel) take 1 tablet by mouth at bedtime As Needed for agitation 10 Tablet 5 3:18 PM EST 06/08/19 25 Active Finasteride 5 MG Oral Tablet (Proscar) Take 1 Tablet by mouth in the morning. 90 Tablet 3 5 3:02 PM EST 06/11/19 25 Active oxyCODONE-Acetam inophen 5-325 MG Oral Tablet (Percocet)Indica tions:History of trauma to spine Take 1 Tablet by mouth every 4 hours as needed for Pain, Severe. 30 Tablet 5 11:25 AM EDT 06/16/19 25 Active Morphine Sulfate ER 30 MG Oral Tablet Extended Release (MS Contin)Indicatio ns:Opioid dependence, uncomplicated (HCC),S/P spinal fusion Take 1 Tablet by mouth in the morning and 1 Tablet before bedtime. 60 Tablet 06/18/19 Active Atorvastatin Calcium 10 MG Oral Tablet (Lipitor)Indicat ions:Elevated cholesterol Take 1 Tablet by mouth in the morning. 100 Tablet 2 5 10:42 AM EST 11/27/192024 Discontinued Cyanocobalamin 1000 MCG/ML Injection Kit Inject 1,000 mcg into a large muscle every 30 days. 01/14/20 24 2024 Discontinued LORazepam 1 MG Oral Tablet (Ativan) Take 1 Tablet by mouth every 8 hours as needed for Anxiety. 1 Tablet 01/14/20 24 2024 Discontinued Cyclobenzaprine HCl 10 MG Oral Tablet (Flexeril)Indica tions:Other chronic pain Take 1 Tablet by mouth in the morning and 1 Tablet before bedtime. 60 Tablet 3 2:56 PM EST 03/17/202024 Discontinued Nitrofurantoin Monohyd Macro 100 MG Oral Capsule (Macrobid) take 1 capsule by mouth twice a day for 5 days; must administer with a meal/food 10 Capsule 3:18 PM EST 06/08/192024 Discontinued Hospital, Clinic, or Other Facility Administered Medication Ordered Dose Route Frequency Start Date End Date Status Vitamin B-12 (Cyanocobalamin) inj 1,000 mcgIndications:B12 deficiency 1000 mcg IM [id number] 06/17/2024 03/22/2027 Active Vitamin B-12 (Cyanocobalamin) inj 1,000 mcgIndications:B12 deficiency 1000 mcg IM [id number] 01/28/2024 06/17/2024 Discontinued documented as of this encounter (statuses as [...] anemia 04/24/2017 Coronary artery disease invo lving [place] heart without angina pectoris 04/18/2016 Anxiety 09/28/2014 Diverticulitis of colon 09/16/2014 [facility] OTHER*[id number] 09/14/2009 MEDICATION USE AGREEMENT 05/19/2008 Overview (05/19/2008): [...] Tobacco use disorder 09/18/2009 011 Bariatric Proteinuria Research*[id number] 09/14/2009 12/27/2009 Organic sleep disorder 06/22/200910/10 Morbid [...] 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 Assessment and Plan Assessment & Plan Hospital discharge/UTI Improved overall mentation Balancing mentation with pain control Which is a difficult balance F/u with urology and continue to manage UTIs Chronic Pain with Opioid Dependence Severe chronic back pain persists despite current opioid regimen. Increased morphine dose to improve pain control. Discussed risks of higher opioid doses and discontinued Flexeril due to inefficacy and potential confusion. - Increase morphine to 30 mg twice daily. - Continue Percocet as needed for breakthrough pain. - Discontinue Flexeril, statin, and MS contin 15mg dose - Use Tylenol for additional pain control, not exceeding 3000 mg daily. Alzheimer's Dementia Progressing dementia with increased sleep and potential worsening mentation. Awaiting neurologist'sinput. Discussed memory care support and planning. - Continue Namenda 10 mg until further evaluation by neurology. - Coordinate with [facility] for memory care support and planning. Atherosclerosis of Coronary Arteries Decision to discontinue atorvastatin to reduce medication burden as it is not immediately beneficial. - Discontinue atorvastatin. Prostate Enlargement Monitoring required for prostate management. - Perform blood work for PSA levels. Vitamin B12 Deficiency Due for B12 injection to maintain neurologic function. - Administer B12 injection. History of Present Illness Kana Thomas is a 59 year old male that presents for Hospital Follow-Up (Pt here for Hosp F/u, seen at [facility] for UTI, finished abx. Pt feeling better per pt's . Per , Hospitalist recommends placing pt in Memory Care unit/Facility.) History of Present Illness The patient, with a history of dementia and chronic back pain, is reported to be experiencing worsening symptoms. The caregiver reports that the patient's back pain has been severe despite increased doses of pain medication, including morphine and Percocet. The patient's pain is described as constant throughout the day, with increased discomfort in the afternoon and evening. The caregiver also reports that the patient's dementia is progressing, with the patient sleeping more than usual. The patient is currently on multiple medications, including morphine, Percocet, finasteride for prostate issues, Ativan, melatonin, Namenda for dementia, and Phenergan for nausea. The caregiver is considering discontinuing some medications, such as atorvastatin for cholesterol and Flexeril for back pain, to reduce the patient's overall medication load. Physical Exam Vitals: 06/17/24 1352 Temp: 96 F (35.6 C) Pulse: 81 SpO2: 96% Physical Exam Constitutional: Appearance: Normal appearance. HENT: Head: Normocephalic and atraumatic. Eyes: Extraocular Movements: Extraocular movements intact. Pupils: Pupils are equal, round, and reactive to light. Neurological: General: No focal deficit present. Mental Status: He is alert and oriented to person, place, and time. Psychiatric: Mood and Affect: Mood normal. Behavior: Behavior normal. Wrap-Up Time: Total time today was 44 minutes excluding any time spent in the performance of separately billed services. .attest Text in this note was generated using an ambient documentation service. I discussed the use of a device to record and summarize our discussion today. All persons present during the encounter consented to its use. documented in this encounter Nursing Notes * Tatyana Stock LPN - 06/17/2024 1:51 PM EDT The patient has been properly identified by confirmation of name and date of . Chief Complaint Patient presents with Hospital Follow-Up Pt here for Hosp F/u, seen at [facility] for UTI, finished abx. Pt feeling better per pt's . documented in this encounter Plan of Treatment Upcoming Encounters Date Type Department Care Team (Late st Contact Info) Description 06/22/2024 11:30 AM EDT Home Visit [facility] [place] [address] [address] Meghna Ramon, RN [address] [place] [address] 06/24/2024 1:00 PM EDT Nurse Only Urology, [facility] [address] [address] [facility] Nurse Urology [facility] [address] [place] [address] 06/29/2024 3:00 PM EDT Home Visit [facility] [place], [facility] [address] [address] Meghna Ramon, RN [address] [place] [address] 09/10/2024 2:00 PM EDT Office Visit Urology Reji Haines [address] [place] [address] Ruth Anguiano PA-C [address] [address] 10/28/2024 11:40 AM EDT Office Visit Family Practice [facility] [address] [place] [address] Charles Mayershawn, DO [address] [place] [address] Scheduled Procedures Name Priority Associated Diagnoses Date/Ti [...] Additional history exists CKD PHOS USE SMARTSET 22159 11/24/202411/06, 06/11/2023, 12/24/2019 Depression Screening 01/21/2025 01/22/2024 CKD HGB USE SMARTSET 29615 04/24/202504/24, 04/24/2024, 11/25/2023, Additional history exists Diabetes [...] as of this encounter Visit Diagnoses Diagnosis Hypertensive heart disease with heart failure and stage 3a chronic kidney disease, unspecified heart failure type (HCC)- Primary Heart failure, unspecified HF chronicity, unspecified heart failure type (HCC) Coronary artery disease involving [place] heart without angina pectoris, unspecified vessel or lesion type Unspecified dementia, unspecified severity, with other behavioral disturbance (HCC) Vascular dementia, unspecified dementia severity, unspecified whether behavioral, psychotic, or mood disturbance or anxiety (HCC) Opioid dependence, uncomplicated (HCC) S/P spinal fusion Arthrodesis status B12 deficiency Other B-complex deficiencies Moderate 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) Chronic kidney disease, stage 3b (HCC) documented in this encounter Administered Medications Active Administered Medications - up to 3 most recent administrations Medication Order MAR Action Action Date Dose Rate Site Vitamin B-12 (Cyanocobalamin) inj 1,000 mcg 1,000 mcg, Intramuscular, [id number], First dose on [place] 06/17/24 at 1445, Last dose on [place] 12/28/26 at 1445, For 12 dosesIndications:B12 deficiency Given 06/17/2024 2:21 PM EDT 1,000 mcg Deltoid Left Upper documented in this encounter Advance Directives Documents on File Type Date Recorded 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 Care Teams Metal Ceiling Builder Relationship Specialty Start Date End Date Charles Mayer DO [address] [facility] [place] [address] PCP - General Family Medicine 05/26/23 documented as of this encounter
--- OUTSIDE RECORDS SUMMARY | 2024-06-26 16:10 | External Medical Summary | Summary of Care ---
Author Name Unknown Organization [facility] Address [address] [place] [address] Phone [phone] Care Team Providers Care Marriage And Family Therapist Name Role Phone Charles Mayer DO Primary Care Provider Encounter Details Date Type Department Care Team (Late st Contact Info) Description 06/18/2024 Telephone Urology Reji Haines [address] [place] [address] Ruth Anguiano PA-C [address] [place] [address] Allergies Active Allergy Reactions Criticality Noted Date [...] as of this encounter (statuses as of 06/18/2024) Medications Pantoprazole Sodium 40 MG Oral Tablet [...] Oral Tablet (Desyrel)Indicati ons:Coronary artery disease involving qawalangin coronary artery of qawalangin heart without angina pectoris,Stage 3a chronic kidney disease (HCC),Gastroesoph ageal reflux disease without esophagitis,Demen tia (HCC) Take one-half tablet by mouth at bedtime as needed for insomnia 90 Tablet 3 06/02/2024 10:42 AM EST 5 Active Dexcom G7 Tipple Repairer DeviceIndications :Severe dementia associated with other underlying [...] inj 1,000 mcgIndications:B12 deficiency 1000 mcg IM [id number] 06/17/2024 03/22/2027 Active documented as of this encounter (statuses as of 06/18/2024) Active Problems Problem Noted Date Diagnosed Date [...] lving qawalangin heart without angina pectoris 04/18/2016 Anxiety 09/28/2014 Diverticulitis of colon 09/16/2014 CALLAHAN RESEARCH OTHER*[id number] 09/14/2009 MEDICATION USE AGREEMENT 05/19/2008 Overview (05/19/2008): See kim GERD (gastroesophageal reflux disease) Gout S/P gastric bypass S/P spinal fusion documented as of this encounter (statuses as of 06/18/2024) Resolved Problems Problem Noted Date Diagnosed Date [...] Tobacco use disorder 09/18/2009 011 Bariatric Proteinuria Research*[id number] 09/14/2009 12/27/2009 Organic sleep disorder 06/22/200910/10 Morbid [...] as of this encounter (statuses as of 06/18/2024) Immunizations Name Administration Dates Next Due COVID-19 [...] 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 Thanks! documented in this encounter Plan of Treatment Upcoming Encounters Date Type Department Care Team (Late st Contact Info) Description 06/22/2024 11:30 AM EDT [facility] [address] [place] [address] Meghna Ramon, RN [address] [place] [address] 06/24/2024 1:00 PM EDT Nurse Only Urology, [facility] [address] [place] [address] [place], Nurse Urology [facility] [address] [place] [address] 06/29/2024 3:00 PM EDT [facility] Visit [facility] [address] [place] [address] Meghna Ramon, RN [address] [place] [address] 09/10/2024 2:00 PM EDT Office Visit Urology Reji Haines [address] [place] [address] Ruth Anguiano PA-C [address] [place] [address] 10/28/2024 11:40 AM EDT Office Visit Family [facility] [address] [place] [address] Charles Mayer DO [address] [place] [address] Scheduled Procedures Name Priority Associated Diagnoses Date/Ti [...] Additional history exists CKD PHOS USE SMARTSET 63723 11/24/202411/06, 06/11/2023, 12/24/2019 Depression Screening 01/21/2025 01/22/2024 CKD HGB USE SMARTSET 50073 04/24/202504/24, 04/24/2024, 11/25/2023, Additional history exists Diabetes [...] on File Type Date Recorded Patient Digital Media Manager Expl 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 Care Teams Marriage And Family Therapist Relationship Specialty Start Date End Date Charles Mayer DO [address] [place] [address] PCP - General Family Medicine 05/26/23 documented as of this encounter
--- OUTSIDE RECORDS SUMMARY | 2024-06-26 16:10 | External Medical Summary | Summary of Care ---
Author Name Unknown Organization [facility] Address [address] [facility] [facility] [address] Phone [phone] Care Team Providers Care Appeals Representative Name Role Phone Charles Mayer DO Primary Care Provider Reason for Referral * Medication Prior Authorization - Pending Review Specialty Diagnoses / Procedures Referred By Contnic t Referred To Contact Diagnoses Opioid dependence, uncomplicated (HCC) S/P spinal fusion Charles Mayer DO [address] [place] [address] Phone: tel: fax: Referral ID Status Reason Start Date Expiration Date V isits Requested Visits Authorized [id number] Pending Review [phone] Reason for Visit * Reason Comments Hospital Follow-Up Pt here for Hosp F/u , seen at [facility] for UTI, finished abx. Pt feeling better per pt's . Per , Hospitalist recommends placing pt in Memory Care unit/Facility. 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, unspecified heart failure type (HCC)*; Heart failure, unspecified HF chronicity, unspecified heart failure type (HCC); Coronary artery disease involving bois forte heart without angina pectoris, unspecified vessel or [...] Oral Tablet (Desyrel)Indicat ions:Coronary artery disease involving bois forte coronary artery of bois forte heart without angina pectoris,Stage 3a chronic kidney disease (HCC),Gastroesop hageal reflux disease without esophagitis,Oscar ntia (HCC) Take one-half tablet by mouth at bedtime as needed for insomnia 90 Tablet 3 5 10:42 AM EST 04/19/19 25 Active Dexcom G7 Superintendent Fish Hatchery DeviceIndication s:Severe dementia associated with other underlying [...] inj 1,000 mcgIndications:B12 deficiency 1000 mcg IM [id number] 06/17/2024 03/22/2027 Active Vitamin B-12 (Cyanocobalamin) inj 1,000 mcgIndications:B12 deficiency 1000 mcg IM [id number] 01/28/2024 06/17/2024 Discontinued documented as of this [...] anemia 04/24/2017 Coronary artery disease invo lving bois forte heart without angina pectoris 04/18/2016 Anxiety 09/28/2014 Diverticulitis of colon 09/16/2014 CALLAHAN RESEARCH OTHER*[id number] 09/14/2009 MEDICATION USE AGREEMENT 05/19/2008 Overview (05/19/2008): [...] Tobacco use disorder 09/18/2009 011 Bariatric Proteinuria Research*[id number] 09/14/2009 12/27/2009 Organic sleep disorder 06/22/200910/10 Morbid [...] 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 - Coordinate with [facility] for memory care support and planning. Atherosclerosis [...] (Pt here for Hosp F/u, seen at [facility] for UTI, finished abx. Pt feeling [...] Pt here for Hosp F/u, seen at [facility] for UTI, finished abx. Pt feeling better per pt's . documented in this encounter Plan of Treatment Upcoming Encounters Date Type Department Care Team (Late st Contact Info) Description 06/22/2024 11:30 AM EDT Home Visit [facility] at [place], [facility] [address] [place] [address] Meghna Ramon, RN [address] [place] [address] 06/24/2024 1:00 PM EDT Nurse Only Urology, [facility] [address] [place] [address] [facility] Nurse Urology [facility] [address] [place] [address] 06/29/2024 3:00 PM EDT Home Visit [facility] [place] [address] [place] [address] Meghna Ramon, RN [address] [place] [address] 09/10/2024 2:00 PM EDT Office Visit Urology Reji Haines [address] [place] [address] Ruth Anguiano PA-C [address] [place] [address] 10/28/2024 11:40 AM EDT Office Visit Family Practice [facility] [address] [place] [address] Charles Mayershawn, DO [address] [place] [address] Scheduled Procedures Name Priority Associated Diagnoses Date/Ti [...] Additional history exists CKD PHOS USE SMARTSET 68828 11/24/202411/06, 06/11/2023, 12/24/2019 Depression Screening 01/21/2025 01/22/2024 CKD HGB USE SMARTSET 28226 04/24/202504/24, 04/24/2024, 11/25/2023, Additional history exists Diabetes [...] failure type (HCC) Coronary artery disease involving bois forte heart without angina pectoris, unspecified vessel or [...] (Cyanocobalamin) inj 1,000 mcg 1,000 mcg, Intramuscular, [id number], First dose on Carey 06/17/24 at 1445, Last dose on Carey 12/28/26 at 1445, For 12 dosesIndications:B12 deficiency Given 06/17/2024 2:21 PM EDT 1,000 mcg Deltoid Left Upper documented in this encounter Advance Directives Documents on File Type Date Recorded Patient Frozen Food Selector Expl 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 Care Teams Appeals Representative Relationship Specialty Start Date End Date Charles Mayer DO [address] [place] [address] PCP - General Family Medicine 05/26/23 documented as of this encounter
--- OUTSIDE RECORDS SUMMARY | 2024-06-26 16:10 | External Medical Summary | Summary of Care ---
Author Name Unknown Organization [facility] Address [address] [place] [address] Phone [phone] Care Team Providers Care Printing Pressman Name Role Phone Charles Mayer Primary Care Provider Reason for Visit * Reason Onset Date Comments Advice 06/25/2024 Encounter Details Date Type Department Care Team (Late st Contact Info) Description 06/25/2024 Telephone Access Center, [place] [address] [facility] *DO NOT REMOVE THIS DEPARTMENT* [place] [address] Services, Scheduling [address] [place] [address] Advice Allergies Active Allergy Reactions Criticality Noted [...] as of this encounter (statuses as of 06/25/2024) Medications Pantoprazole Sodium 40 MG Oral Tablet Delayed Release (Protonix)Indicat ions:Acute gastric ulcer with hemorrhage TAKE ONE TABLET BY MOUTH TWICE A DAY - MORNING AND BEFORE BEDTIME 200 Tablet 1 10/02/2023 12:11 PM EDT 4 Active Allopurinol 300 MG Oral Tablet (Zyloprim)Indicat [...] Oral Tablet (Desyrel)Indicati ons:Coronary artery disease involving sleetmute coronary artery of sleetmute heart without angina pectoris,Stage 3a chronic kidney disease (HCC),Gastroesoph ageal reflux disease without esophagitis,Demen tia (HCC) Take one-half tablet by mouth at bedtime as needed for insomnia 90 Tablet 3 06/02/2024 10:42 AM EST 5 Active Dexcom G7 Ophthalmology Assistant DeviceIndications :Severe dementia associated with other underlying [...] and 1 Tablet before bedtime. 60 Tablet 06/18/2024 2:59 PM EDT Active Hospital, Clinic, or Other Facility Administered Medication Ordered Dose Route Frequency Start Date End Date Status Vitamin B-12 (Cyanocobalamin) inj 1,000 mcgIndications:B12 deficiency 1000 mcg IM [id number] 06/17/2024 03/22/2027 Active documented as of this encounter (statuses as of 06/25/2024) Active Problems Problem Noted Date Diagnosed Date [...] anemia 04/24/2017 Coronary artery disease invo lving sleetmute heart without angina pectoris 04/18/2016 Anxiety 09/28/2014 Diverticulitis of colon 09/16/2014 BEULAH RESEARCH OTHER*[id number] 09/14/2009 MEDICATION USE AGREEMENT 05/19/2008 Overview (05/19/2008): See kim GERD (gastroesophageal reflux disease) Gout S/P gastric bypass S/P spinal fusion documented as of this encounter (statuses as of 06/25/2024) Resolved Problems Problem Noted Date Diagnosed Date [...] Tobacco use disorder 09/18/2009 011 Bariatric Proteinuria Research*[id number] 09/14/2009 12/27/2009 Organic sleep disorder 06/22/200910/10 Morbid [...] as of this encounter (statuses as of 06/25/2024) Immunizations Name Administration Dates Next Due COVID-19 [...] 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 She states she will be picking up medication tomorrow. * Telephone Encounter - Kiah Benítez OSA - 06/25/2024 2:00 PM EDT Pts called in and asks to be called back she need to discuss pts catheter supplies and she maybe reached at [phone] documented in this encounter Plan of Treatment Upcoming Encounters Date Type Department Care Team (Late st Contact Info) Description 06/29/2024 3:00 PM EDT Home Visit [facility] [place] [address] [place] [address] Meghna Ramon RN [address] [place] [address] 07/01/2024 2:30 PM EDT Nurse Only Urology, [facility] [address] [place] [address] Nurse Julia Alvarado [address] [place] [address] 09/10/2024 2:00 PM EDT Office Visit Urology Reji Haines [address] [place] [address] Ruth Anguiano PA-C [address] [place] [address] 10/28/2024 11:40 AM EDT Office Visit Family Practice [facility] [address] [place] [address] Charles Mayer, [address] [place] [address] Scheduled Procedures Name Priority Associated Diagnoses Date/Ti [...] Additional history exists CKD PHOS USE SMARTSET 46510 11/24/202411/06, 06/11/2023, 12/24/2019 Depression Screening 01/21/2025 01/22/2024 CKD HGB USE SMARTSET 42501 04/24/202504/24, 04/24/2024, 11/25/2023, Additional history exists Diabetes [...] Documents on File Type Date Recorded Patient Check Services Clerk Expl 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 Care Teams Printing Pressman Relationship Specialty Start Date End Date Charles Mayer DO [address] [place] [address] PCP - General Family Medicine 05/26/23 documented as of this encounter
--- OUTSIDE RECORDS SUMMARY | 2024-06-26 16:10 | External Medical Summary | Summary of Care ---
Author Name Unknown Organization [facility] Address [address] [place] [address] Phone [phone] Care Team Providers Care Lithographers Printer Name Role Phone Charles Mayer Primary Care Provider Reason for Visit * Reason Onset Date Comments Advice 06/23/2024 Bad day Encounter Details Date Type Department Care Team (Late st Contact Info) Description 06/23/2024 Telephone Care Coordination and Integration [address] [place], [place] [phone] Annette Meadows RN [address] [place], [place] [phone] Advice () Allergies Active Allergy Reactions Criticality Noted Date [...] as of this encounter (statuses as of 06/23/2024) Medications Pantoprazole Sodium 40 MG Oral Tablet [...] Oral Tablet (Desyrel)Indicati ons:Coronary artery disease involving c[place]o coronary artery of caddo heart without angina pectoris,Stage 3a chronic kidney disease (HCC),Gastroesoph ageal reflux disease without esophagitis,Demen tia (HCC) Take one-half tablet by mouth at bedtime as needed for insomnia 90 Tablet 3 06/02/2024 10:42 AM EST 5 Active Dexcom G7 Construction Producer DeviceIndications :Severe dementia associated with other underlying [...] bedtime. 60 Tablet 06/18/2024 2:59 PM EDT 5 Active Hospital, Clinic, or Other Facility Administered Medication Ordered Dose Route Frequency Start Date End Date Status Vitamin B-12 (Cyanocobalamin) inj 1,000 mcgIndications:B12 deficiency 1000 mcg IM [id number] 06/17/2024 03/22/2027 Active documented as of this encounter (statuses as of 06/23/2024) Active Problems Problem Noted Date Diagnosed Date [...] anemia 04/24/2017 Coronary artery disease invo lving caddo heart without angina pectoris 04/18/2016 Anxiety 09/28/2014 Diverticulitis of colon 09/16/2014 CALLAHAN RESEARCH OTHER*[id number] 09/14/2009 MEDICATION USE AGREEMENT 05/19/2008 Overview (05/19/2008): See kim GERD (gastroesophageal reflux disease) Gout S/P gastric bypass S/P spinal fusion documented as of this encounter (statuses as of 06/23/2024) Resolved Problems Problem Noted Date Diagnosed Date Resolved Date Stage 3 chronic kidney disease 05/25/2024 06/17/2024 Kidney disease, chronic, sta ge III (GFR 30-59 ml/min) 11/16/2018 02/17/2020 Overview: Per CKD protocol Well adult exam 04/18/2016 09/24/2018 Overview (06/01/2018): ??Need eval hypoglycemia? S/p gastric bypass. 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 He is no longer followed by CM but is followed by [facility] however this CM spoke with her. She states patient is having a "really bad day". He has been agitated since he woke up this morning. He's been calling her names and saying she doesn't take care of him. She states she does not argueback but has been trying to redirect him. She denies any threats of physical harm to himself or her/daughter and states if he does that he's going straight to the hospital as she will not put up withthat again. She is asking if she should give him the seroquel and what the side effects are. Side effects were reviewed with her and how medication is prescribed. She verbalized understanding. Advised Alisha to reach out to the [facility] nurse Nila to discuss giving this today as she has been following patient for over a month now. She said she has Nila's cell phone number and will call her when she leaves the clinic today. She is also asking about memory care placement for patient. She said she was told by Palliative [facility]urology at [facility] that patient will continue to progress quickly and he has to be placed as she canno longer manage him at home. She will discuss this with [facility] nurse as well. Reminded Alisha that priorto his transition to [facility], this CM had faxed documentation to [facility] to be put on waiting list. She will call them to check on status of placement. Dr Mayer and SUSHIL Dotson. documented in this encounter Plan of Treatment Upcoming Encounters Date Type Department Care Team (Late st Contact Info) Description 06/24/2024 1:00 PM EDT Nurse Only UrologyTomás Guildhall [address] [place] [address] Nurse Christiano Urologmarlene Johnson [address] [place] [address] 06/29/2024 3:00 PM EDT Home Visit [facility] [place], [facility] [address] [place] [address] Meghna Ramon, RN [address] [place] [address] 09/10/2024 2:00 PM EDT Office Visit Urology Reji Haines [address] [place] [address] Ruth Anguiano PA-C [address] [place] [address] 10/28/2024 11:40 AM EDT Office Visit [facility] [address] [place] [address] Charles Mayer DO [address] [place] [address] Scheduled Procedures Name Priority Associated Diagnoses Date/Ti [...] Additional history exists CKD PHOS USE SMARTSET 87377 11/24/20242 , 06/11/2023, 12/24/2019 Depression Screening 01/21/2025 01/22/2024 CKD HGB USE SMARTSET 79514 04/24/202504/24, 04/24/2024, 11/25/2023, Additional history exists Diabetes [...] Documents on File Type Date Recorded Patient Gyroscope Technician Expl 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 Care Teams Lithographers Printer Relationship Specialty Start Date End Date Charles Mayer DO [address] [place] [address] PCP - General Family Medicine 05/26/23 documented as of this encounter
--- OUTSIDE RECORDS SUMMARY | 2024-06-26 16:10 | External Medical Summary | Summary of Care ---
Author Name Unknown Organization [facility] Address [address] [place] [address] Phone [phone] Care Team Providers Care Ecological Modeler Name Role Phone Marsha Mayeradin Galloshawn Primary Care Provider Reason for Visit * Reason Onset Date Comments Appointment 06/24/2024 Nurse visit TOV Encounter Details Date Type Department Care Team (Late st Contact Info) Description 06/24/2024 Telephone Urology, [facility] [address] [facility] [place] [address] Services, Scheduling [address] [place] [address] Appointment (Nurse visit TOV) Allergies Active Allergy Reactions Criticality Noted Date [...] as of this encounter (statuses as of 06/24/2024) Medications Pantoprazole Sodium 40 MG Oral Tablet [...] Oral Tablet (Desyrel)Indicati ons:Coronary artery disease involving [place] coronary artery of [place] heart without angina pectoris,Stage 3a chronic kidney disease (HCC),Gastroesoph ageal reflux disease without esophagitis,Demen tia (HCC) Take one-half tablet by mouth at bedtime as needed for insomnia 90 Tablet 3 06/02/2024 10:42 AM EST 5 Active Dexcom G7 Java Spring Developer DeviceIndications :Severe dementia associated with other underlying [...] inj 1,000 mcgIndications:B12 deficiency 1000 mcg IM [id number] 06/17/2024 03/22/2027 Active documented as of this encounter (statuses as of 06/24/2024) Active Problems Problem Noted Date Diagnosed Date [...] anemia 04/24/2017 Coronary artery disease invo lving [place] heart without angina pectoris 04/18/2016 Anxiety 09/28/2014 Diverticulitis of colon 09/16/2014 [employer]WALL RESEARCH OTHER*[id number] 09/14/2009 MEDICATION USE AGREEMENT 05/19/2008 Overview (05/19/2008): See kim GERD (gastroesophageal reflux disease) Gout S/P gastric bypass S/P spinal fusion documented as of this encounter (statuses as of 06/24/2024) Resolved Problems Problem Noted Date Diagnosed Date Resolved Date Stage 3 chronic kidney disease 05/25/2024 06/17/2024 Kidney disease, chronic, sta ge III (GFR 30-59 ml/min) 11/16/2018 02/17/2020 Overview: Per CKD protocol Well adult exam 04/18/2016 09/24/2018 Overview (06/01/2018): ??Need eval hypoglycemia? S/p gastric bypass. 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 Rescheduled to July 01. * Telephone Encounter - Tasha Gant OSA - 06/24/2024 11:23 AM EDT Patients wbradley Brito called had to cancel appt 06/24/24 pt has dementia and is having an episode today- pleae call her with a reschedule date documented in this encounter Plan of Treatment Upcoming Encounters Date Type Department Care Team (Late st Contact Info) Description 06/29/2024 3:00 PM EDT Home Visit [facility] [address] [place] [address] Meghna Ramon, RN [address] [place] [address] 07/01/2024 2:30 PM EDT Nurse Only Urology, [facility] [address] [place] [address] Nurse Christiano Urologmarlene Johnson [address] [place] [address] 09/10/2024 2:00 PM EDT Office Visit Urology Reji Haines [address] [place] [address] Ruth Anguiano PA-C [address] [place] [place] [address] 10/28/2024 11:40 AM EDT Office Visit Family Practice [facility] [address] [place] [address] Charles Mayer, DO [address] [place] [address] Scheduled Procedures Name Priority Associated Diagnoses Date/Ti [...] Additional history exists CKD PHOS USE SMARTSET 89736 11/24/202411/06, 06/11/2023, 12/24/2019 Depression Screening 01/21/2025 01/22/2024 CKD HGB USE SMARTSET 37012 04/24/202504/24, 04/24/2024, 11/25/2023, Additional history exists Diabetes [...] Documents on File Type Date Recorded Patient Radio Time Sales Supervisor Expl 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 Care Teams Ecological Modeler Relationship Specialty Start Date End Date Charles Mayer DO [address] [place] [address] PCP - General Family Medicine 05/26/23 documented as of this encounter
--- OUTSIDE RECORDS SUMMARY | 2024-06-26 16:11 | External Medical Summary | Summary of Care ---
Author Name Unknown Organization [facility] Address [address] [facility] [place] [address] Phone [phone] Care Team Providers Care Field Artillery Radar Operator Name Role Phone Andrea Mayer DO Primary Care Provider Reason for Referral * Medication Prior Authorization - Pending Review Specialty Diagnoses / Procedures Referred By Contnic t Referred To Contact Diagnoses History of trauma to spine Andrea Mayer DO [address] [place] [address] Phone: tel: fax: Referral ID Status Reason Start Date Expiration Date V isits Requested Visits Authorized [id number] Pending Review [phone] Reason for Visit * Reason Onset Date Comments Medication Refill 06/14/2024 Encounter Details Date Type Department Care Team (Late st Contact Info) Description 06/14/2024 Refill Family Practice [facility] [address] [place] [address] Andrea Mayer DO [address] [place] [address] History of trauma to spine Allergies Active [...] as of this encounter (statuses as of 06/15/2024) Medications Pantoprazole Sodium 40 MG Oral Tablet [...] Additional Information Patient not taking.Reported on 05/25/2024 Thiamine HCl 100 MG Oral Tablet (vitamin [...] Oral Tablet (Desyrel)Indica tions:Coronary artery disease involving [place] coronary artery of [place] heart without angina pectoris,Stage 3a chronic kidney disease (HCC),Gastroeso phageal reflux disease without esophagitis,Dem entia (HCC) Take one-half tablet by mouth at bedtime as needed for insomnia 90 Tablet 3 06/02/2024 10:42 AM EST 5 Active Dexcom G7 Insurance Claim Representative DeviceIndicatio ns:Severe dementia associated with other [...] Tablet 06/07/2024 3:18 PM EST 5 Active Nitrofurantoin Monohyd Macro 100 MG Oral Capsule (Macrobid) take 1 capsule by mouth twice a day for 5 days; must administer with a meal/food 10 Capsule 06/07/2024 3:18 PM EST 5 Active QUEtiapine Fumarate 25 MG Oral Tablet (SEROquel) take 1 tablet by mouth at bedtime As Needed for agitation 10 Tablet 06/07/2024 3:18 PM EST 5 Active Finasteride 5 MG Oral Tablet (Proscar) Take 1 Tablet by mouth in the morning. 90 Tablet 3 06/10/2024 3:02 PM EST 5 Active oxyCODONE-Aceta minophen 5-325 MG Oral Tablet (Percocet)Indic ations:History of trauma to spine Take 1 Tablet by mouth every 4 hours as needed for Pain, Severe. 30 Tablet 5 Active oxyCODONE-Aceta minophen 5-325 MG Oral Tablet (Percocet)Indic ations:History of trauma to spine Take 1 Tablet by mouth every 4 hours as needed for Pain, Severe. 30 Tablet 05/25/2024 2:56 PM EST 025 Discontin ued(Refil l) Hospital, Clinic, or Other Facility Administered Medication Ordered Dose Route Frequency Start Date End Date Status Vitamin B-12 (Cyanocobalamin) inj 1,000 mcgIndications:B12 deficiency 1000 mcg IM [id number] 01/28/2024 12/29/2024 Active documented as of this encounter (statuses as of 06/15/2024) Active Problems Problem Noted Date Diagnosed Date Hypertensive heart disease w ith heart failure and stage 3 chronic kidney disease 06/14/2024 Opioid dependence, uncomplicated 05/25/2024 Heart failure 05/25/2024 Unspecified dementia, unspec ified severity, with other behavioral disturbance 05/25/2024 Vascular dementia 05/25/2024 Stage 3 chronic [...] anemia 04/24/2017 Coronary artery disease invo lving [place] heart without angina pectoris 04/18/2016 Anxiety 09/28/2014 Diverticulitis of colon 09/16/2014 [employer]AN RESEARCH OTHER*[id number] 09/14/2009 MEDICATION USE AGREEMENT 05/19/2008 Overview (05/19/2008): See kim GERD (gastroesophageal reflux disease) Gout S/P gastric bypass S/P spinal fusion documented as of this encounter (statuses as of 06/15/2024) Resolved Problems Problem Noted Date Diagnosed Date [...] Tobacco use disorder 09/18/2009 011 Bariatric Proteinuria Research*[id number] 09/14/2009 12/27/2009 Organic sleep disorder 06/22/200910/10 Morbid [...] as of this encounter (statuses as of 06/15/2024) Immunizations Name Administration Dates Next Due COVID-19 [...] 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 Not on file Not on file documented as of this encounter Miscellaneous Notes * Telephone Encounter - Umm Davenport CPhT - 06/15/2024 3:03 PM EDT Jennifer calling from [employer] [facility] to advise office oxycodone-acetaminophen does not need a prior auth Thank you, Umm Davenport CPhT Cardiology Nurse III [facility] [address] [place] [address], [address] [place] [address] [phone] * Telephone Encounter - Andrea Mayer DO - 06/15/2024 2:53 PM EDT Signed Prescriptions: Disp Refills oxyCODONE-Acetaminophen 5-325 MG Oral Tabl*30 Tab*0 Sig: Take 1 Tablet by mouth every 4 hours as needed for Pain, Severe. Authorizing Provider: ANDREA MAYER * Telephone Encounter - Kiley Laboy [facility] - 06/15/2024 2:51 PM EDT Pending Prescriptions: Disp Refills oxyCODONE-Acetaminophen 5-325 MG Oral Tabl*30 Tab*0 Sig: Take 1 Tablet by mouth every 4 hours as needed for Pain, Severe. * Telephone Encounter - Kiley Laboy [facility] - 06/15/2024 2:51 PM EDT I have reviewed the patients controlled substance dispensing history in the Prescription Drug Monitoring Program in compliance with the [facility] regulations before prescribing a controlled substance. PDMP checked on 06/15/2024. Pending Prescriptions: Disp Refills oxyCODONE-Acetaminophen 5-325 MG Oral Tab*30 Tab*0 Sig: Take 1 Tablet by mouth every 4 hours as needed for Pain, Severe. Last Visit: 05/25/2024 (in office), Visit date not found (telemedicine) Next Visit: 06/17/2024 Date medication was last filled: 05/25/24 Date medication is due for refill: 05/29/24 Pharmacy: [facility] Is this request for a controlled substance? Yes and Urine Drug Screen Not completed Toxicology results: No results found. However, due to the size of the patient record, not all encounters were searched.Please check Results Review for a complete set of results. Please approve if appropriate. Thank You Kiley Laboy PharmD Clinical Pharmacist [facility] [phone] / [phone] 06/15/2024, 2:51 PM * Telephone Encounter - Nohemy Aquino PHARM Tech - 06/14/2024 10:18 AM EDT Did you pend patient's preferred pharmacy and medication before forwarding?yes Pharmacy: [facility] Pending Prescriptions: Disp Refills oxyCODONE-Acetaminophen 5-325 MG Oral Tab*30 Tab*0 Sig: Take 1 Tablet by mouth every 4 hours as needed for Pain, Severe. Last Visit: 05/25/2024 (in office), Visit date not found (telemedicine) Next Visit: 06/17/2024 If no future appointments scheduled, and last appointment is greater than a year ago, please schedule patient for a follow-up appointment Last date the medication was ordered: 05/24/24 Is this request for a controlled substance?Yes, What was the last refill date 05/24/24 w/ quantity 30 and dosage 5-325 and [...] Team (Late st Contact Info) Description 06/17/2024 1:40 PM EDT Office Visit Family Practice [facility] [address] [place] [address] Andrea Mayer DO [address] [place] [address] 06/22/2024 11:30 AM EDT [facility] Visit [facility] [place] [address] [place] [address] Meghna Ramon RN [address] [place] [address] 06/24/2024 1:00 PM EDT Nurse Only Urology, [facility] [address] [place] [address] [place], Nurse Urology [facility] [address] [place] [address] 06/29/2024 3:00 PM EDT Home Visit [facility] [place] [address] [place] [address] Meghna Ramon, RN [address] [place] [address] 09/10/2024 2:00 PM EDT Office Visit Urology Reji Haines [address] [place] [address] Ruth Anguiano PA-C [address] [place] [address] 10/28/2024 11:40 AM EDT Office Visit Family [facility] [address] [place] [address] Andrea Mayer DO [address] [place] [address] Scheduled Procedures Name Priority Associated Diagnoses Date/Ti [...] Additional history exists CKD PHOS USE SMARTSET 46839 11/24/202411/06, 06/11/2023, 12/24/2019 Depression Screening 01/21/2025 01/22/2024 CKD HGB USE SMARTSET 79711 04/24/202504/24, 04/24/2024, 11/25/2023, Additional history exists Diabetes [...] Documents on File Type Date Recorded 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 Care Teams Field Artillery Radar Operator Relationship Specialty Start Date End Date Andrea Mayer DO [address] [place] [address] PCP - General Family Medicine 05/26/23 documented as of this encounter
--- OUTSIDE RECORDS SUMMARY | 2024-06-26 16:11 | External Medical Summary ---
Author Name Unknown Address Unknown Organization K01:[facility] [place] - [address] [place] [address] Laboratory Report Ordering Provider Test Date Status JEANINE GLASS 06/17/2024 14:36:01 Final Observation Date Value Abnormality Reference (Units ) Status PSA 06/17/2024 14:36:01 0.25 <4.10 (ng/ mL) Final Performing Location [facility] - [address] [place] [address]
--- OUTSIDE RECORDS SUMMARY | 2024-06-26 16:11 | External Medical Summary | Summary of Care ---
Author Name Unknown Organization [facility] Address [address] [place] [address] Phone [phone] Care Team Providers Care Residential Mortgage Manager Name Role Phone Charles Mayershawn Primary Care Provider Encounter Details Date Type Department Care Team (Late st Contact Info) Description 06/11/2024 1:30 PM EST [facility] [address] [facility] [place] [address] Meghna Ramon, LU[place] [address] [facility] [place] [address] Allergies Active Allergy Reactions Criticality Noted Date [...] Oral Tablet (Desyrel)Indica tions:Coronary artery disease involving [place] coronary artery of [place] heart without angina pectoris,Stage 3a chronic kidney disease (HCC),Gastroeso phageal reflux disease without esophagitis,Dem entia (HCC) Take one-half tablet by mouth at bedtime as needed for insomnia 90 Tablet 3 06/02/2024 10:42 AM EST 5 Active Dexcom G7 Ocean Lifeguard DeviceIndicatio ns:Severe dementia associated with other underlying [...] 3 06/10/2024 3:02 PM EST 5 Active Melatonin 10 MG Oral Tablet Take 1 Tablet by mouth at bedtime. 4 025 Discontin ued(Medic ation List Clean Up) levoFLOXacin 750 MG Oral Tablet Take 1 Tablet by mouth in the morning. For 7 days. . 025 Discontin ued(Medic ation List Clean Up) Mirtazapine 30 MG Oral Tablet (Remeron) Take 1 Tablet by mouth at bedtime. 90 Tablet 04/15/2024 6:38 PM EST 4 025 Discontin ued(Medic ation List Clean Up) Sulfamethoxazol e-Trimethoprim 800-160 MG Oral Tablet (Bactrim DS) take 1 tablet by mouth every twelve hours for 7 days 14 Tablet 05/19/2024 1:01 PM EST 025 Discontin ued(Medic ation List Clean Up) Hospital, Clinic, or Other Facility Administered Medication Ordered Dose Route Frequency Start Date End Date Status Vitamin B-12 (Cyanocobalamin) inj 1,000 mcgIndications:B12 deficiency 1000 mcg IM [id number] 01/28/2024 12/29/2024 Active documented as of this [...] anemia 04/24/2017 Coronary artery disease invo lving [place] heart without angina pectoris 04/18/2016 Anxiety 09/28/2014 Diverticulitis of colon 09/16/2014 [facility]AN RESEARCH OTHER*[id number] 09/14/2009 MEDICATION USE AGREEMENT 05/19/2008 Overview (05/19/2008): [...] gastric bypass. 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 Not on file Not on file documented as of this encounter Last Filed Vital Signs Vital Sign Reading Time Taken Comments Blood Pressure 101/62 06/11/2024 1:04 PM EST Pulse 92 06/11/2024 1:04 PM EST Temperature 35.8 C (96.4 F) 06/11/2024 1:04 PM ES T Respiratory Rate 18 06/11/2024 1:04 PM EST Oxygen Saturation 99% 06/11/2024 1:04 PM EST Inhaled Oxygen Concentration - - Weight - - Height - - Body Mass Index - - documented in this encounter Progress Notes * Meghna Ramon RN - 06/11/2024 12:43 PM EST Current Concerns: Patient seen for [facility] NENA#1- [facility]- patient pulled catheter penitentiary out/ treated for UTI- Macrobid- 2 doses left PCP- Friday Palliative- 06/15 Medical history- Alzheimer's dementia, CKD, recurrent UTI's- parra catheter, CAD Reports doing well. Denies pain VS wnl Lungs clear bilaterally Denies sob No LE edema Parra intact draining clear yellow urine. Bowels wnl Appetite fair Taking fluids well encouraged to call [facility] with concerns of UTI- has voiding trial scheduled with urology upon completion of ABT. interested in placing patient in Memory care facility. Has information provided by [facility]. Reports she is going to start making phone calls. Physical Exam: Physical Exam Constitutional: Appearance: Normal [...] gait problem. Skin: Negative. Hematological: Negative. Psychiatric/Behavioral: Positive for confusion. Care Plan Goal Progress: Patient will remain free of falls. (Progressing) Start: 05/10/24 Expected End: 09/07/24 Patient will remain free from infection. (Not Progressing) Start: 05/13/24 Expected End: 09/10/24 Goal Note Repeated utilization d/t frequent UTI's- parra catheter- uncircumsized- Orders Placed: No orders of the defined types were placed in this encounter. Medications Given: Care Gaps: Care Gaps Care gaps closed this contact: Education (06/14/241731) Type of education: Clinical/disease (06/14/241731) documented in this encounter Plan of Treatment Upcoming Encounters Date Type Department Care Team (Late st Contact Info) Description 06/15/2024 3:00 PM EDT [facility] [address] [place] [address] Gregg Rosen PA-C [address] [place] [address] 06/17/2024 1:40 PM EDT Office Visit Family Practice [facility] [address] [place] [address] Charles Mayer DO [address] [place] [address] 06/22/2024 11:30 AM EDT [facility] Visit [facility] [address] [place] [address] Meghna Ramon, LU[place] [address] [place] [address] 06/24/2024 1:00 PM EDT Nurse Only Urology, [facility] [address] [place] [address] [facility], Nurse Urology [facility] [address] [place] [address] 06/29/2024 3:00 PM EDT [facility] Visit [facility], [facility] [address] [place] [address] Meghna Ramon, RN [address] [place] [address] 09/10/2024 2:00 PM EDT Office Visit Urology Reji Haines [address] [place] [address] Ruth Anguiano PA-C [address] [place] [place] [address] 10/28/2024 11:40 AM EDT Office Visit Family Practice [facility] [address] [place] [address] Charles Mayer DO [address] [place] [address] Scheduled Procedures Name Priority Associated Diagnoses Date/Ti [...] Additional history exists CKD PHOS USE SMARTSET 66145 11/24/202411/06, 06/11/2023, 12/24/2019 Depression Screening 01/21/2025 01/22/2024 CKD HGB USE SMARTSET 07878 04/24/202504/24, 04/24/2024, 11/25/2023, Additional history exists Diabetes [...] Documents on File Type Date Recorded Patient Operations And Maintenance Technican Expl 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 Care Teams Residential Mortgage Manager Relationship Specialty Start Date End Date Charles Mayer DO [address] [place] [address] PCP - General Family Medicine 05/26/23 documented as of this encounter
--- OUTSIDE RECORDS SUMMARY | 2024-06-26 16:11 | External Medical Summary | Summary of Care ---
Author Name Unknown Organization [facility] Address [address] [facility] [place] [address] Phone [phone] Care Team Providers Care Manager Strategic Marketing Name Role Phone Andrea Mayer DO Primary Care Provider Reason for Referral * Medication Prior Authorization - Pending Review Specialty Diagnoses / Procedures Referred By Contnic t Referred To Contact Diagnoses History of trauma to spine Andrea Mayer DO [address] [place] [address] Phone: tel: fax: Referral ID Status Reason Start Date Expiration Date V isits Requested Visits Authorized [id number] Pending Review 999 999 Reason for Visit * Reason Onset Date Comments Medication Refill 06/14/2024 Encounter Details Date Type Department Care Team (Late st Contact Info) Description 06/14/2024 Refill Family Practice [facility] [address] [place] [address] Andrea Mayer DO [address] [place] [address] History of trauma to spine Allergies Active [...] Oral Tablet (Desyrel)Indica tions:Coronary artery disease involving united [place]ow[place] coronary artery of united [place] heart without angina pectoris,Stage 3a chronic kidney disease (HCC),Gastroeso phageal reflux disease without esophagitis,Dem entia (HCC) Take one-half tablet by mouth at bedtime as needed for insomnia 90 Tablet 3 06/02/2024 10:42 AM EST 5 Active Dexcom G7 Harness And Bag Inspector DeviceIndicatio ns:Severe dementia associated with other [...] inj 1,000 mcgIndications:B12 deficiency 1000 mcg IM [id number] 01/28/2024 12/29/2024 Active documented as of this [...] anemia 04/24/2017 Coronary artery disease invo lving united keetoowah heart without angina pectoris 04/18/2016 Anxiety 09/28/2014 Diverticulitis of colon 09/16/2014 [facility] OTHER*[id number] 09/14/2009 MEDICATION USE AGREEMENT 05/19/2008 Overview (05/19/2008): [...] Tobacco use disorder 09/18/2009 011 Bariatric Proteinuria Research*[id number] 09/14/2009 12/27/2009 Organic sleep disorder 06/22/200910/10 Morbid [...] 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 PDMP checked on 06/15/2024. Pending Prescriptions: Disp Refills oxyCODONE-Acetaminophen 5-325 MG Oral Tab*30 Tab*0 Sig: Take 1 Tablet by mouth every 4 hours as needed for Pain, Severe. Last Visit: 05/25/2024 (in office), Visit date not found (telemedicine) Next Visit: 06/17/2024 Date medication was last filled: 05/25/24 Date medication is due for refill: 05/29/24 Pharmacy: [facility] Is this request for a controlled substance? Yes and Urine Drug Screen Not completed Toxicology results: No results found. However, due to the size of the patient record, not all encounters were searched.Please check Results Review for a complete set of results. Please approve if appropriate. Thank You Kiley Laboy PharmD Clinical Pharmacist [facility] [phone] / [phone] 06/15/2024, 2:51 PM * Telephone Encounter - Nohemy Aquino PHARM Tech - 06/14/2024 10:18 AM EDT Did you pend patient's preferred pharmacy and medication before forwarding?yes Pharmacy: [facility] Pending Prescriptions: Disp Refills oxyCODONE-Acetaminophen [...] 1:40 PM EDT Office Visit Family Practice [facility] [address] [place] [address] Andrea Mayer DO [address] [place] [address] 06/22/2024 11:30 AM EDT [facility] [place] [address] [place] [address] Meghna Ramon RN [address] [place] [address] 06/24/2024 1:00 PM EDT Nurse Only Urology, [facility] [address] [place] [address] [place], Nurse Urology [facility] [address] [place] [address] 06/29/2024 3:00 PM EDT [facility] Visit [facility] [place], [facility] [address] [place] [address] Meghna Ramon, RN [address] [place] [address] 09/10/2024 2:00 PM EDT Office Visit Urology Reji Haines [address] [place] [address] Ruth Anguiano PA-C [address] [place] [address] 10/28/2024 11:40 AM EDT Office Visit Family [facility] [address] [place] [address] Andrea Mayer DO [address] [place] [address] Scheduled Procedures Name Priority Associated Diagnoses Date/Ti [...] Additional history exists CKD PHOS USE SMARTSET 68674 11/24/202411/06, 06/11/2023, 12/24/2019 Depression Screening 01/21/2025 01/22/2024 CKD HGB USE SMARTSET 34996 04/24/202504/24, 04/24/2024, 11/25/2023, Additional history exists Diabetes [...] Documents on File Type Date Recorded Patient Object Oriented Programmer Expl anation Advance Directives and Living Will [...] were consensually agreed upon. Care Teams Manager Strategic Marketing Relationship Specialty Start Date End Date Andrea Mayer DO [address] [place] [address] PCP - General Family Medicine 05/26/23 documented as of this encounter
--- OUTSIDE RECORDS SUMMARY | 2024-06-26 16:11 | External Medical Summary | Summary of Care ---
Author Name Unknown Organization [facility] Address [address] [place] [address] Phone [phone] Care Team Providers Care Book Critic Name Role Phone Mayer Charles Galloshawn Primary Care Provider Encounter Details Date Type Department Care Team (Late st Contact Info) Description 03/17/2024 Telephone Urology, [place] [address] [place] [address] Services, [facility] [address] [place] [address] Allergies Active Allergy Reactions Criticality Noted Date [...] 3 04/20/2024 11:36 AM EST 4 Active Hospital, Clinic, or Other Facility Administered Medication Ordered Dose Route Frequency Start Date End Date Status Vitamin B-12 (Cyanocobalamin) inj 1,000 mcgIndications:B12 deficiency 1000 mcg IM [id number] 01/28/2024 12/29/2024 Active documented as of this [...] anemia 04/24/2017 Coronary artery disease invo lving [place] heart without angina pectoris 04/18/2016 Anxiety 09/28/2014 Diverticulitis of colon 09/16/2014 [facility] OTHER*[id number] 09/14/2009 MEDICATION USE AGREEMENT 05/19/2008 Overview (05/19/2008): [...] Tobacco use disorder 09/18/2009 011 Bariatric Proteinuria Research*[id number] 09/14/2009 12/27/2009 Organic sleep disorder 06/22/200910/10 Morbid [...] No 05/10/2024 Does the household have a [facility] source of income? 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 Patient has a catheter. He keeps pulling at the catheter. Urology Reji told spouse to contact [facility] to see if he should use the walk in clinic. documented in this encounter Plan of Treatment Upcoming Encounters Date Type Department Care Team (Late st Contact Info) Description 06/17/2024 1:40 PM EDT Office Visit Family Practice [facility] [address] [place] [address] Charles Mayer DO [address] [place] [address] 06/22/2024 11:30 AM EDT Home Visit [facility] [place], [facility] [address] [place] [address] Meghna Ramon, LUIS [address] [place] [address] 06/24/2024 1:00 PM EDT Nurse Only Urology, [facility] [address] [place] [address] [place], Nurse Urology [facility] [address] [place] [address] 06/29/2024 3:00 PM EDT [facility] Visit [facility] [address] [place] [address] Meghna Ramon, RN [address] [place] [address] 09/10/2024 2:00 PM EDT Office Visit Reji [facility]ell [address] [place] [address] Ruth Anguiano PA-C [address] [place] [address] 10/28/2024 11:40 AM EDT Office Visit [facility] [address] [place] [address] Charles Mayer DO [address] [place] [address] Scheduled Procedures Name Priority Associated Diagnoses Date/Ti [...] Additional history exists CKD PHOS USE SMARTSET 30909 11/24/202411/06, 06/11/2023, 12/24/2019 Depression Screening 01/21/2025 01/22/2024 CKD HGB USE SMARTSET 03443 04/24/202504/24, 04/24/2024, 11/25/2023, Additional history exists Diabetes [...] Documents on File Type Date Recorded Patient Antenna Installer Expl 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 Care Teams Book Critic Relationship Specialty Start Date End Date Charles Mayer DO [address] [place] [address] PCP - General Family Medicine 05/26/23 documented as of this encounter
--- OUTSIDE RECORDS SUMMARY | 2024-06-26 16:11 | External Medical Summary | Summary of Care ---
Author Name Unknown Organization [facility] Address [address] [place] [address] Phone [phone] Care Team Providers Care Health Safety Engineer Name Role Phone Charles Mayer Primary Care Provider Reason for Visit * Reason Onset Date Comments [facility]: Engagement 06/15/2024 Encounter Details Date Type Department Care Team (Late st Contact Info) Description 06/15/2024 Telephone [facility], [place] [address] [place] [phone] Verona Peoples, [facility] [address] [place] [address] [facility]: Engagement Allergies [...] Oral Tablet (Desyrel)Indicat ions:Coronary artery disease involving absentee-shawnee coronary artery of absentee-shawnee heart without angina pectoris,Stage 3a chronic kidney disease (HCC),Gastroesop hageal reflux disease without esophagitis,Oscar ntia (HCC) Take one-half tablet by mouth at bedtime as needed for insomnia 90 Tablet 3 06/02/2024 10:42 AM EST 5 Active Dexcom G7 Financial Services Representative DeviceIndication s:Severe dementia associated with other underlying [...] 3 06/10/2024 3:02 PM EST 5 Active Hospital, Clinic, or Other Facility Administered Medication Ordered Dose Route Frequency Start Date End Date Status Vitamin B-12 (Cyanocobalamin) inj 1,000 mcgIndications:B12 deficiency 1000 mcg IM [id number] 01/28/2024 12/29/2024 Active documented as of this [...] anemia 04/24/2017 Coronary artery disease invo lving absentee-shawnee heart without angina pectoris 04/18/2016 Anxiety 09/28/2014 Diverticulitis of colon 09/16/2014 [facility] [employer] OTHER*[id number] 09/14/2009 MEDICATION USE AGREEMENT 05/19/2008 Overview (05/19/2008): [...] gastric bypass. 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 documented in this encounter Plan of Treatment Upcoming Encounters Date Type Department Care Team (Late st Contact Info) Description 06/17/2024 1:40 PM EDT Office Visit Family Practice [facility] [address] [place] [address] Charles Mayer DO [address] [place] [address] 06/22/2024 11:30 AM EDT Home Visit [facility] [address] [place] [address] Meghna Ramon RN [address] [place] [address] 06/24/2024 1:00 PM EDT Nurse Only Urology, [facility] [address] [place] [address] AlvaradoNurse jay Urology [facility] [address] [place] [address] 06/29/2024 3:00 PM EDT Home Visit [facility] at [facility], [facility] [address] [place] [address] Meghna Ramon, LUIS [address] [place] [address] 09/10/2024 2:00 PM EDT Office Visit Urology Reji Haines [address] [place] [address] Ruth Anguiano PA-C [address] [place] [address] 10/28/2024 11:40 AM EDT Office Visit Family Practice [facility] [address] [place] [address] Charles Mayer DO [address] [place] [address] Scheduled Procedures Name Priority Associated Diagnoses Date/Ti [...] Additional history exists CKD PHOS USE SMARTSET 78550 11/24/2024 08/2 , 06/11/2023, 12/24/2019 Depression Screening 01/21/2025 01/22/2024 CKD HGB USE SMARTSET 35996 04/24/202504/24, 04/24/2024, 11/25/2023, Additional history exists Diabetes [...] Documents on File Type Date Recorded 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 Care Teams Health Safety Engineer Relationship Specialty Start Date End Date Charles Mayer DO [address] [place] [address] PCP - General Family Medicine 05/26/23 documented as of this encounter
--- OUTSIDE RECORDS SUMMARY | 2024-06-26 16:11 | External Medical Summary | Summary of Care ---
Author Name Unknown Organization [facility] Address [address] [place] [address] Phone [phone] Care Team Providers Care Custom Furrier Name Role Phone Charles Mayer DO Primary Care Provider Reason for Visit * Reason Comments Follow Up Encounter Details Date Type Department Care Team (Late st Contact Info) Description 06/10/2024 1:00 PM EST Office Visit Urology Reji Haines [address] [place] [address] Ruth Anguiano PA-C [address] [place] [address] Recurrent UTI*; Retention of urine Allergies Active Allergy Reactions [...] as of this encounter (statuses as of 06/11/2024) Medications Pantoprazole Sodium 40 MG Oral Tablet [...] Oral Tablet (Desyrel)Indicat ions:Coronary artery disease involving eyak coronary artery of eyak heart without angina pectoris,Stage 3a chronic kidney disease (HCC),Gastroesop hageal reflux disease without esophagitis,Oscar ntia (HCC) Take one-half tablet by mouth at bedtime as needed for insomnia 90 Tablet 3 06/02/2024 10:42 AM EST 5 Active Dexcom G7 Traffic Police Officer DeviceIndication s:Severe dementia associated with other underlying [...] 90 Tablet 3 06/10/2024 3:02 PM EST Active Hospital, Clinic, or Other Facility Administered Medication Ordered Dose Route Frequency Start Date End Date Status Vitamin B-12 (Cyanocobalamin) inj 1,000 mcgIndications:B12 deficiency 1000 mcg IM [id number] 01/28/2024 12/29/2024 Active documented as of this encounter (statuses as of 06/11/2024) Active Problems Problem Noted Date Diagnosed Date [...] anemia 04/24/2017 Coronary artery disease invo lving eyak heart without angina pectoris 04/18/2016 Incomplete tear of right rotator cuff 04/15/2016 Overview (04/15/2016): 04/23 Dr Eduardo guerrero. Anxiety 09/28/2014 Diverticulitis of colon 09/16/2014 [employer] RESEARCH OTHER*[id number] 09/14/2009 MEDICATION USE AGREEMENT 05/19/2008 Overview (05/19/2008): See kim GERD (gastroesophageal reflux disease) Gout S/P gastric bypass S/P spinal fusion documented as of this encounter (statuses as of 06/11/2024) Resolved Problems Problem Noted Date Diagnosed Date [...] Tobacco use disorder 09/18/2009 011 Bariatric Proteinuria Research*[id number] 09/14/2009 12/27/2009 Organic sleep disorder 06/22/200910/10 Morbid [...] as of this encounter (statuses as of 06/11/2024) Immunizations Name Administration Dates Next Due COVID-19 [...] 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 Hospitalized recently. Has parra catheter in place, TOV? Parra draining well. Urine is clear and yellow. Currently on antibiotic for possible UTI. documented in this encounter Plan of Treatment Upcoming Encounters Date Type Department Care Team (Late st Contact Info) Description 06/11/2024 1:30 PM EST Home Visit [facility] [address] [place] [address] Meghna Ramon RN [address] [place] [address] 06/14/2024 10:20 AM EDT Office Visit Family Practice [facility] [address] [place] [address] Charles Mayer, DO [address] [place] [address] 06/15/2024 3:00 PM EDT [facility], [facility] [address] [place] [address] Gregg Rosen PA-C [address] [place] [address] 06/24/2024 1:00 PM EDT Nurse Only Urology, [facility] [address] [place] [address] AlvaradoNurse Urology [facility] [address] [place] [address] 06/29/2024 3:00 PM EDT [facility] Visit [facility], [facility] [address] [place] [address] Meghna Ramon, LUIS [address] [place] [address] 09/10/2024 2:00 PM EDT Office Visit Urology Reji Haines [address] [facility] [address] [place] [address] Ruth Anguiano PA-C [address] [place] [address] 10/28/2024 11:40 AM EDT Office Visit Family Practice [facility] [address] [place] [address] Charles Mayer, DO [address] [place] [address] Scheduled Orders Name Type Priority Associated Diagnoses Orde r Schedule PSA Lab Routine Retention of urine Expected: 06/10/2024, Expires: Scheduled Procedures Name Priority Associated Diagnoses Date/Ti [...] Additional history exists CKD PHOS USE SMARTSET 33089 11/24/202411/06, 06/11/2023, 12/24/2019 Depression Screening 01/21/2025 01/22/2024 CKD HGB USE SMARTSET 17198 04/24/202504/24, 04/24/2024, 11/25/2023, Additional history exists Diabetes [...] as of this encounter Visit Diagnoses Diagnosis Recurrent UTI- Primary Urinary tract infection, site not specified Retention of urine Retention of urine, unspecified documented in this encounter Advance Directives Documents on File Type Date Recorded 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 Care Teams Custom Furrier Relationship Specialty Start Date End Date Charles Mayer DO [address] [place] [address] PCP - General Family Medicine 05/26/23 documented as of this encounter
--- OUTSIDE RECORDS SUMMARY | 2024-06-26 16:11 | External Medical Summary | Summary of Care ---
Author Name Unknown Organization [facility] Address [address] [place] [address] Phone [phone] Care Team Providers Care Shot Examiner Name Role Phone Charles Mayer DO Primary Care Provider Reason for Visit * Reason Onset Date Comments Home Monitoring Orders Only 06/11/2024 Encounter Details Date Type Department Care Team (Late st Contact Info) Description 06/11/2024 Home Monitoring Family Practice [facility] [address] [place] [address] Charles Mayer DO [address] [place] [address] Heart failure, unspecified HF chronicity, unspecified heart failure type (HCC)* Allergies Active Allergy Reactions Criticality Noted Date [...] Oral Tablet (Desyrel)Indicat ions:Coronary artery disease involving torres martinez coronary artery of torres martinez heart without angina pectoris,Stage 3a chronic kidney disease (HCC),Gastroesop hageal reflux disease without esophagitis,Oscar ntia (HCC) Take one-half tablet by mouth at bedtime as needed for insomnia 90 Tablet 3 06/02/2024 10:42 AM EST 5 Active Dexcom G7 Phlebotomy Director DeviceIndication s:Severe dementia associated with other underlying [...] inj 1,000 mcgIndications:B12 deficiency 1000 mcg IM [id number] 01/28/2024 12/29/2024 Active documented as of this [...] anemia 04/24/2017 Coronary artery disease invo lving torres martinez heart without angina pectoris 04/18/2016 Incomplete tear of right rotator cuff 04/15/2016 Overview (04/15/2016): 04/23 Dr Eduardo guerrero. Anxiety 09/28/2014 Diverticulitis of colon 09/16/2014 [employer]AN RESEARCH OTHER*[id number] 09/14/2009 MEDICATION USE AGREEMENT 05/19/2008 Overview (05/19/2008): [...] Tobacco use disorder 09/18/2009 011 Bariatric Proteinuria Research*[id number] 09/14/2009 12/27/2009 Organic sleep disorder 06/22/200910/10 Morbid [...] as of this encounter Progress Notes * Laura Colby OSA - 06/11/2024 1:06 PM EST Patient has been discharged from the [employer] home monitoring program due to Pleasedischarge the patient from [facility]. Device(s) to be discontinued: BP cuf, Spo2 due to does not think it will be beneficial. Attention: Case owners- Please go into RPM Smartform and unclick the appropriate RPM Thank you. documented in this encounter Plan of Treatment Upcoming Encounters Date Type Department Care Team (Late st Contact Info) Description 06/14/2024 10:20 AM EDT Office Visit Family Practice [facility] [address] [address] Charles Mayer DO [address] [place] [address] 06/15/2024 3:00 PM EDT [facility] Visit [facility] [place], [facility] [address] [address] Gregg Rosen PA-C [address] [place] [address] 06/22/2024 11:30 AM EDT [facility] Visit [facility] [address] [place] [address] Meghna Ramon, RN [address] [place] [address] 06/24/2024 1:00 PM EDT Nurse Only Urology, [facility] [address] [place] [address] [facility] Nurse Urology [facility] [address] [place] [address] 06/29/2024 3:00 PM EDT Home Visit [facility], [facility] [address] [place] [address] Meghna Ramon, LUIS [address] [place] [address] 09/10/2024 2:00 PM EDT Office Visit Urology Reji Haines [address] [place] [address] Ruth Anguiano PA-C [address] [place] [address] 10/28/2024 11:40 AM EDT Office Visit Family Practice [facility] [address] [place] [address] Charles Mayer DO [address] [place] [address] Scheduled Procedures Name Priority Associated Diagnoses Date/Ti [...] Additional history exists CKD PHOS USE SMARTSET 84424 11/24/202411/06, 06/11/2023, 12/24/2019 Depression Screening 01/21/2025 01/22/2024 CKD HGB USE SMARTSET 20479 04/24/202504/24, 04/24/2024, 11/25/2023, Additional history exists Diabetes [...] as of this encounter Visit Diagnoses Diagnosis Heart failure, unspecified HF chronicity, unspecified heart failure type (HCC)- Primary documented in this encounter Advance Directives Documents on File Type Date Recorded Patient Psychiatric Rn Expl 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 Care Teams Shot Examiner Relationship Specialty Start Date End Date Charles Mayer DO [address] [place] [address] PCP - General Family Medicine 05/26/23 documented as of this encounter
--- OUTSIDE RECORDS SUMMARY | 2024-06-26 16:11 | External Medical Summary | Summary of Care ---
Author Name Unknown Organization [facility] Address [address] [facility] [place] [address] Phone [phone] Care Team Providers Care Tugboat Mate Name Role Phone Andrea Mayer DO Primary Care Provider Reason for Referral * Medication Prior Authorization - Pending Review Specialty Diagnoses / Procedures Referred By Contnic t Referred To Contact Diagnoses History of trauma to spine Andrea Mayer DO [address] [place] [address] Phone: tel: fax: Referral ID Status Reason Start Date Expiration Date V isits Requested Visits Authorized [id number] Pending Review [phone] Reason for Visit * Reason Onset Date Comments Medication Refill 06/14/2024 Encounter Details Date Type Department Care Team (Late st Contact Info) Description 06/14/2024 Refill Family Practice [facility] [address] [place] [address] Andrea Mayer DO [address] [place] [address] History of trauma to spine Allergies Active [...] Oral Tablet (Desyrel)Indica tions:Coronary artery disease involving ugashik coronary artery of ugashik heart without angina pectoris,Stage 3a chronic kidney disease (HCC),Gastroeso phageal reflux disease without esophagitis,Dem entia (HCC) Take one-half tablet by mouth at bedtime as needed for insomnia 90 Tablet 3 06/02/2024 10:42 AM EST 5 Active Dexcom G7 Plastics Plater DeviceIndicatio ns:Severe dementia associated with other underlying [...] inj 1,000 mcgIndications:B12 deficiency 1000 mcg IM [id number] 01/28/2024 12/29/2024 Active documented as of this [...] anemia 04/24/2017 Coronary artery disease invo lving ugashik heart without angina pectoris 04/18/2016 Anxiety 09/28/2014 Diverticulitis of colon 09/16/2014 [facility] OTHER*[id number] 09/14/2009 MEDICATION USE AGREEMENT 05/19/2008 Overview (05/19/2008): [...] bypass. 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 Not on file documented as of this encounter Miscellaneous Notes * Telephone Encounter - Umm Davenport CPhT - 06/15/2024 3:03 PM EDT Jennifer calling from [facility] to advise office oxycodone-acetaminophen does not need a prior auth Thank you, Umm Davenport CPhT Childcare Center Administrator III [facility] [address] [place] [address], [address] [place] [address] [phone] * Telephone Encounter - Andrea Mayer DO - 06/15/2024 2:53 PM EDT Signed Prescriptions: Disp Refills oxyCODONE-Acetaminophen 5-325 MG Oral Tabl*30 Tab*0 Sig: Take 1 Tablet by mouth every 4 hours as needed for Pain, Severe. Authorizing Provider: ANDREA MAYER * Telephone Encounter - Kiley Laboy [facility] - 06/15/2024 2:51 PM EDT Pending Prescriptions: Disp Refills oxyCODONE-Acetaminophen 5-325 MG Oral Tabl*30 Tab*0 Sig: Take 1 Tablet by mouth every 4 hours as needed for Pain, Severe. * Telephone Encounter - Kiley Laboy [facility] - 06/15/2024 2:51 PM EDT I have reviewed the patients controlled substance dispensing history in the Prescription Drug Monitoring Program in compliance with the [facility] regulations before prescribing a controlled substance. PDMP checked on 06/15/2024. Pending Prescriptions: Disp Refills oxyCODONE-Acetaminophen 5-325 MG Oral Tab*30 Tab*0 Sig: Take 1 Tablet by mouth every 4 hours as needed for Pain, Severe. Last Visit: 05/25/2024 (in office), Visit date not found (telemedicine) Next Visit: 06/17/2024 Date medication was last filled: 05/25/24 Date medication is due for refill: 05/29/24 Pharmacy: [facility] Is this request for a controlled substance? Yes and Urine Drug Screen Not completed Toxicology results: No results found. However, due to the size of the patient record, not all encounters were searched.Please check Results Review for a complete set of results. Please approve if appropriate. Thank You Kiley Laboy PharmD Clinical Pharmacist [facility] [phone] / [phone] 06/15/2024, 2:51 PM * Telephone Encounter - Nohemy Aquino PHARM Tech - 06/14/2024 10:18 AM EDT Did you pend patient's preferred pharmacy and medication before forwarding?yes Pharmacy: [facility] Pending Prescriptions: Disp Refills oxyCODONE-Acetaminophen 5-325 [...] 1:40 PM EDT Office Visit Family Practice [facility] [address] [place] [address] Andrea Mayer DO [address] [place] [address] 06/22/2024 11:30 AM EDT [facility] Visit [facility] [place], [facility] [address] [place] [address] Meghna Ramon RN [address] [place] [address] 06/24/2024 1:00 PM EDT Nurse Only Urology, [facility] [address] [place] [address] [place], Nurse Urology [facility] [address] [place] [address] 06/29/2024 3:00 PM EDT [facility] Visit [facility] [place], [facility] [address] [place] [address] Meghna Ramon, RN [address] [place] [address] 09/10/2024 2:00 PM EDT Office Visit Urology Reji Haines [address] [place] [address] Ruth Anguiano PA-C [address] [place] [address] 10/28/2024 11:40 AM EDT Office Visit Family [facility] [address] [place] [address] Andrea Mayer DO [address] [place] [address] Scheduled Procedures Name Priority Associated Diagnoses Date/Ti [...] Additional history exists CKD PHOS USE SMARTSET 61864 11/24/202411/06, 06/11/2023, 12/24/2019 Depression Screening 01/21/2025 01/22/2024 CKD HGB USE SMARTSET 20339 04/24/202504/24, 04/24/2024, 11/25/2023, Additional history exists Diabetes [...] Documents on File Type Date Recorded 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 Care Teams Tugboat Mate Relationship Specialty Start Date End Date Andrea Mayer DO [address] [place] [address] PCP - General Family Medicine 05/26/23 documented as of this encounter
--- OUTSIDE RECORDS SUMMARY | 2024-06-26 16:12 | External Medical Summary | Summary of Care ---
Author Name Unknown Organization [facility] Address [address] [place] [address] Phone [phone] Care Team Providers Care Commercial Management Accountant Name Role Phone Charles Mayer DO Primary Care Provider Reason for Visit * Reason Onset Date Comments [facility]: Maintenance 06/06/2024 Encounter Details Date Type Department Care Team (Late st Contact Info) Description 06/06/2024 8:45 AM EST Scheduled Telephone [facility], [address] [place] [address] [facility], Nurse [address] [place] [address] Allergies Active Allergy Reactions Criticality Noted Date [...] as of this encounter (statuses as of 06/07/2024) Medications Pantoprazole Sodium 40 MG Oral Tablet [...] 10:42 AM EST 5 Active Dexcom G7 Survey Manager DeviceIndication s:Severe dementia associated with other underlying [...] inj 1,000 mcgIndications:B12 deficiency 1000 mcg IM [id number] 01/28/2024 12/29/2024 Active documented as of this encounter (statuses as of 06/07/2024) Active Problems Problem Noted Date Diagnosed Date [...] 09/28/2014 Diverticulitis of colon 09/16/2014 [facility] OTHER*[id number] 09/14/2009 MEDICATION USE AGREEMENT 05/19/2008 Overview (05/19/2008): See kim GERD (gastroesophageal reflux disease) Gout S/P gastric bypass S/P spinal fusion documented as of this encounter (statuses as of 06/07/2024) Resolved Problems Problem Noted Date Diagnosed Date [...] Tobacco use disorder 09/18/2009 011 Bariatric Proteinuria Research*[id number] 09/14/2009 12/27/2009 Organic sleep disorder 06/22/200910/10 Morbid [...] as of this encounter (statuses as of 06/07/2024) Immunizations Name Administration Dates Next Due COVID-19 [...] No 05/10/2024 Does the household have a [facility] source of income? (Household - for [...] Telephone Encounter - Joanna Hair LPN - 06/07/2024 7:55 AM EST On hospital list to follow d/c * Telephone Encounter - Mitali Georges RN - 06/06/2024 8:57 AM EST Spoke with , Alisha Pt currently inpt at [facility] for UTI States being seen by Infectious Dx documented in this encounter Plan of Treatment Upcoming Encounters Date Type Department Care Team (Late st Contact Info) Description 06/10/2024 1:00 PM EST Office Visit Urology Reji Haines [address] [place] [address] Ruth Anguiano PA-C [address] [place] [address] 06/15/2024 3:00 PM EDT [facility] Visit [facility] [address] [place] [address] Gregg Rosen PA-C [address] [place] [address] 06/29/2024 3:00 PM EDT Home Visit [facility] [address] [place] [address] Meghna Ramon, [place] [address] [place] [address] 10/28/2024 11:40 AM EDT Office Visit Family Practice [facility] [address] [place] [address] Charles Mayer DO [address] [place] [address] Scheduled Procedures Name Priority Associated Diagnoses Date/Ti [...] Additional history exists CKD PHOS USE SMARTSET 98081 11/24/202411/06, 06/11/2023, 12/24/2019 Depression Screening 01/21/2025 01/22/2024 CKD HGB USE SMARTSET 42981 04/24/202504/24, 04/24/2024, 11/25/2023, Additional history exists Diabetes [...] on File Type Date 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 Care Teams Commercial Management Accountant Relationship Specialty Start Date End Date Charles Mayer DO [address] [place] [address] PCP - General Family Medicine 05/26/23 documented as of this encounter
--- OUTSIDE RECORDS SUMMARY | 2024-06-26 16:12 | External Medical Summary | Summary of Care ---
Author Name Unknown Organization [facility] Address [address] [place] [address] Phone [phone] Care Team Providers Care Personalized Living Assistant Name Role Phone Charles Mayer DO Primary Care Provider Reason for Visit * Reason Onset Date Comments [facility]: Maintenance 06/06/2024 Encounter Details Date Type Department Care Team (Late st Contact Info) Description 06/06/2024 8:45 AM EST Scheduled Telephone [facility], [address] [place] [address] [facility], Nurse [address] [place] [address] Allergies Active Allergy Reactions Criticality Noted Date [...] as of this encounter (statuses as of 06/06/2024) Medications Pantoprazole Sodium 40 MG Oral Tablet [...] Oral Tablet (Desyrel)Indicat ions:Coronary artery disease involving yuhaaviatam coronary artery of yuhaaviatam heart without angina pectoris,Stage 3a chronic kidney disease (HCC),Gastroesop hageal reflux disease without esophagitis,Oscar ntia (HCC) Take one-half tablet by mouth at bedtime as needed for insomnia 90 Tablet 3 06/02/2024 10:42 AM EST 5 Active Dexcom G7 Compliance Vice President DeviceIndication s:Severe dementia associated with other underlying [...] inj 1,000 mcgIndications:B12 deficiency 1000 mcg IM [id number] 01/28/2024 12/29/2024 Active documented as of this encounter (statuses as of 06/06/2024) Active Problems Problem Noted Date Diagnosed Date [...] anemia 04/24/2017 Coronary artery disease invo lving yuhaaviatam heart without angina pectoris 04/18/2016 Incomplete tear of right rotator cuff 04/15/2016 Overview (04/15/2016): 04/23 Dr Eduardo guerrero. Anxiety 09/28/2014 Diverticulitis of colon 09/16/2014 [facility] OTHER*[id number] 09/14/2009 MEDICATION USE AGREEMENT 05/19/2008 Overview (05/19/2008): See kim GERD (gastroesophageal reflux disease) Gout S/P gastric bypass S/P spinal fusion documented as of this encounter (statuses as of 06/06/2024) Resolved Problems Problem Noted Date Diagnosed Date Resolved Date Kidney disease, chronic, sta ge III (GFR 30-59 ml/min) 11/16/2018 02/17/2020 Overview: Per CKD protocol Well adult exam 04/18/2016 09/24/2018 Overview (06/01/2018): ??Need eval hypoglycemia? S/p gastric bypass. 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 Not on file Not on file documented as of this encounter Miscellaneous Notes * Telephone Encounter - Mitali Georges RN - 06/06/2024 8:57 AM EST Spoke with , Alisha Pt currently inpt at [facility] for UTI States being seen by Infectious Dx documented in this encounter Plan of Treatment Upcoming Encounters Date Type Department Care Team (Late st Contact Info) Description 06/10/2024 1:00 PM EST Office Visit Urology Reji Haines [address] [place] [address] Ruth Anguiano PA-C [address] [place] [address] 06/15/2024 3:00 PM EDT Home Visit [facility] at [facility] [address] [place] [address] Gregg Rosen PA-C [address] [place] [address] 06/29/2024 3:00 PM EDT Home Visit [facility] at [facility] [address] [place] [address] Meghna Ramon, LUIS [address] [place] [address] 10/28/2024 11:40 AM EDT Office Visit Family Practice [facility] [address] [place] [address] Charles Mayer DO [address] [place] [address] Scheduled Procedures Name Priority Associated Diagnoses Date/Ti [...] Additional history exists CKD PHOS USE SMARTSET 73874 11/24/202411/06, 06/11/2023, 12/24/2019 Depression Screening 01/21/2025 01/22/2024 CKD HGB USE SMARTSET 34645 04/24/202504/24, 04/24/2024, 11/25/2023, Additional history exists Diabetes [...] Documents on File Type Date Recorded 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 Care Teams Personalized Living Assistant Relationship Specialty Start Date End Date Charles Mayer DO [address] [place] [address] PCP - General Family Medicine 05/26/23 documented as of this encounter
--- OUTSIDE RECORDS SUMMARY | 2024-06-26 16:12 | External Medical Summary | Summary of Care ---
Author Name Unknown Organization [facility] Address [address] [place] [address] Phone [phone] Care Team Providers Care Keg Inspector Name Role Phone Charles Mayer Primary Care Provider Reason for Visit * Reason Onset Date Comments [facility]: Engagement 06/08/2024 Encounter Details Date Type Department Care Team (Late st Contact Info) Description 06/08/2024 Telephone [facility], [place] [address] [place] [phone] Verona Peoples, [facility] [address] [place] [address] [facility]: Engagement Allergies [...] as of this encounter (statuses as of 06/09/2024) Medications Pantoprazole Sodium 40 MG Oral Tablet [...] Oral Tablet (Desyrel)Indicat ions:Coronary artery disease involving nisqually coronary artery of nisqually heart without angina pectoris,Stage 3a chronic kidney disease (HCC),Gastroesop hageal reflux disease without esophagitis,Oscar ntia (HCC) Take one-half tablet by mouth at bedtime as needed for insomnia 90 Tablet 3 06/02/2024 10:42 AM EST 5 Active Dexcom G7 Clinical Rehab Liaison DeviceIndication s:Severe dementia associated with other underlying [...] Tablet 06/07/2024 3:18 PM EST 5 Active Hospital, Clinic, or Other Facility Administered Medication Ordered Dose Route Frequency Start Date End Date Status Vitamin B-12 (Cyanocobalamin) inj 1,000 mcgIndications:B12 deficiency 1000 mcg IM [id number] 01/28/2024 12/29/2024 Active documented as of this encounter (statuses as of 06/09/2024) Active Problems Problem Noted Date Diagnosed Date [...] lving nisqually heart without angina pectoris 04/18/2016 Incomplete tear of right rotator cuff 04/15/2016 Overview (04/15/2016): 04/23 Dr Eduardo guerrero. Anxiety 09/28/2014 Diverticulitis of colon 09/16/2014 [facility] OTHER*[id number] 09/14/2009 MEDICATION USE AGREEMENT 05/19/2008 Overview (05/19/2008): See kim GERD (gastroesophageal reflux disease) Gout S/P gastric bypass S/P spinal fusion documented as of this encounter (statuses as of 06/09/2024) Resolved Problems Problem Noted Date Diagnosed Date Resolved Date Kidney disease, chronic, sta ge III (GFR 30-59 ml/min) 11/16/2018 02/17/2020 Overview: Per CKD protocol Well adult exam 04/18/2016 09/24/2018 Overview (06/01/2018): ??Need eval hypoglycemia? S/p gastric bypass. Pain mgmt Dr Syed Asencio--[facility] +pain pump 02/22 EGD-Gastric bypass with [...] Tobacco use disorder 09/18/2009 011 Bariatric Proteinuria Research*[id number] 09/14/2009 12/27/2009 Organic sleep disorder 06/22/200910/10 Morbid [...] as of this encounter (statuses as of 06/09/2024) Immunizations Name Administration Dates Next Due COVID-19 [...] encounter Miscellaneous Notes * Telephone Encounter - Veroan Peoples OSA - 06/08/2024 4:28 PM EST TT request to set up TOC1, appt set for 06/11, lmom documented in this encounter Plan of Treatment Upcoming Encounters Date Type Department Care Team (Late st Contact Info) Description 06/10/2024 1:00 PM EST Office Visit Urology Reji Haines [address] [place] [address] Ruth Anguiano PA-C [address] [place] [address] 06/11/2024 1:30 PM EST Home Visit [facility] [address] [place] [address] Meghna Ramon, LUIS [address] [place] [address] 06/14/2024 10:20 AM EDT Office Visit [facility] [address] [place] [address] Charles Mayer, DO [address] [place] [address] 06/15/2024 3:00 PM EDT [facility], [facility] [address] [place] [address] Gregg Rosen PA-C [address] [place] [address] 06/29/2024 3:00 PM EDT [facility] Visit [facility], [facility] [address] [address] Meghna Ramon RN [address] [place] [address] 10/28/2024 11:40 AM EDT Office Visit [facility] [address] [place] [address] Charles Mayer, DO [address] [place] [address] Scheduled Procedures Name Priority Associated Diagnoses Date/Ti [...] Additional history exists CKD PHOS USE SMARTSET 68748 11/24/2024 08, 06/11/2023, 12/24/2019 Depression Screening 01/21/2025 01/22/2024 CKD HGB USE SMARTSET 04008 04/24/202504/24, 04/24/2024, 11/25/2023, Additional history exists Diabetes [...] Documents on File Type Date Recorded 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 No * Full Code Date Activated Date [...] and were consensually agreed upon. Care Teams Keg Inspector Relationship Specialty Start Date End Date Charles Mayer DO [address] [place] [address] PCP - General Family Medicine 05/26/23 documented as of this encounter
--- OUTSIDE RECORDS SUMMARY | 2024-06-26 16:12 | External Medical Summary | Summary of Care ---
Author Name Unknown Organization [facility] Address [address] [place] [address] Phone [phone] Care Team Providers Care Circular Saw Operator Name Role Phone Charles Mayer DO Primary Care Provider Reason for Visit * Reason Onset Date Comments [facility]: Maintenance 06/08/2024 Encounter Details Date Type Department Care Team (Late st Contact Info) Description 06/08/2024 Telephone [facility], [facility] [address] [facility] [place] [address] Rubina Malcolm LPN [address] [facility] [place] [address] [facility]: Maintenance Allergies Active Allergy [...] Oral Tablet (Desyrel)Indicat ions:Coronary artery disease involving kalispel coronary artery of k[place] heart without angina pectoris,Stage 3a chronic kidney disease (HCC),Gastroesop hageal reflux disease without esophagitis,Oscar ntia (HCC) Take one-half tablet by mouth at bedtime as needed for insomnia 90 Tablet 3 06/02/2024 10:42 AM EST 5 Active Dexcom G7 Paper Bundler DeviceIndication s:Severe dementia associated with other underlying [...] inj 1,000 mcgIndications:B12 deficiency 1000 mcg IM [id number] 01/28/2024 12/29/2024 Active documented as of this [...] anemia 04/24/2017 Coronary artery disease invo lving kalispel heart without angina pectoris 04/18/2016 Incomplete tear of right rotator cuff 04/15/2016 Overview (04/15/2016): 04/23 Dr Eduardo guerrero. Anxiety 09/28/2014 Diverticulitis of colon 09/16/2014 [facility] [employer] OTHER*[id number] 09/14/2009 MEDICATION USE AGREEMENT 05/19/2008 Overview (05/19/2008): [...] gastric bypass. 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 Not on file Not on file documented as of this encounter Miscellaneous Notes * Telephone Encounter - Rubina Malcolm LPN - 06/08/2024 4:25 PM EST Pt D/C from [facility] TT sent [facility] benefits clerk for [place] [employer] appt documented in this encounter Plan of Treatment Upcoming Encounters Date Type Department Care Team (Late st Contact Info) Description 06/10/2024 1:00 PM EST Office Visit Urology Reji Haines [address] [place] [address] Ruth Anguiano PA-C [address] [place] [address] 06/11/2024 1:30 PM EST Home Visit [facility] at [facility] [address] [place] [address] Meghna Ramon, LUIS [address] [place] [address] 06/14/2024 10:20 AM EDT Office Visit [facility] [address] [place] [address] Charles Mayer, DO [address] [place] [address] 06/15/2024 3:00 PM EDT [facility], [facility] [address] [place] [address] Gregg Rosen PA-C [address] [place] [address] 06/29/2024 3:00 PM EDT [facility] Visit [facility], [facility] [address] [place] [address] Meghna Ramon RN [address] [place] [address] 10/28/2024 11:40 AM EDT Office Visit [facility] [address] [place] [address] Charles Mayer, DO [address] [place] [address] Scheduled Procedures Name Priority Associated Diagnoses Date/Ti [...] Additional history exists CKD PHOS USE SMARTSET 03800 11/24/202411/06, 06/11/2023, 12/24/2019 Depression Screening 01/21/2025 01/22/2024 CKD HGB USE SMARTSET 73560 04/24/202504/24, 04/24/2024, 11/25/2023, Additional history exists Diabetes [...] Documents on File Type Date Recorded Patient Final Inspector Movement Assembly Expl 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 Care Teams Circular Saw Operator Relationship Specialty Start Date End Date Charles Mayer DO [address] [place] [address] PCP - General Family Medicine 05/26/23 documented as of this encounter
[2024-06-26 16:44] LABS: Basophils # (auto) 0.02 K/uL (0.00-0.20); Basophils % (auto) 0.5 %; Eosinophils # (auto) 0.02 K/uL (0.00-0.50); Eosinophils % (auto) 0.5 %; Hematocrit (blood only) 36.8 % (42.0-52.0); Hemoglobin 11.8 g/dl (14.0-18.0); Immature Granulocytes # (auto) 0.01 K/uL (0.01-0.20); Immature Granulocytes % (auto) 0.2 %; Lymphocytes # (auto) 0.81 K/uL (1.20-3.40); Lymphocytes % (auto) 18.4 %; Mean Corpuscular Hemoglobin 28.1 pg (25.0-34.0); Mean Corpuscular Hgb Conc 32.1 g/dL (32.0-36.0); Mean Corpuscular Volume 87.6 fL (80.0-100.0); Mean Platelet Volume 9.7 fL (9.4-12.4); Monocytes # (auto) 0.37 K/uL (0.11-0.59); Monocytes % (auto) 8.4 %; Neutrophils # (auto) 3.17 K/uL (1.40-6.50); Platelet Count 211 K/uL (130-400); RDW Coefficient of Variation 16.4 % (11.5-14.5); RDW Standard Deviation 51.8 fL (36.4-46.3)
[2024-06-26 17:10] LABS: Alanine Aminotransferase 13 U/L (7-52); Albumin Globulin Ratio 1.7 (0.9-2); Alkaline Phosphatase 134 U/L (34-104); Anion Gap 5 (3-11); Aspartate Aminotransferase 18 U/L (13-39); BUN Creatinine Ratio 15.1 (10-20); Bilirubin,Total 0.8 mg/dl (0.2-1.0); Blood Urea Nitrogen 19 mg/dl (6-23); Calcium 9.3 mg/dl (8.6-10.3); Carbon Dioxide 30 mmol/L (21-32); Chloride 109 mmol/L (98-107); Globulin 2.3 gm/dl (2.5-4.0); Glucose 110 mg/dl (70-99(Fasting)); Potassium 3.7 mmol/L (3.5-5.1); Sodium 144 mmol/L (136-145); Total Protein 6.3 gm/dl (6.0-8.3)
[2024-06-26 17:16] LABS: Appearance Urine Turbid (Clear); Bacteria Urine Automated 4+ (None Seen); Bilirubin Urine 1+ (Negative); Blood Urine Trace (Negative); Calcium Oxalate Crystals Urine Present (None Prsent); Color Urine Orange; Glucose Urine UA Negative (Negative); Ketones Urine Trace (Negative); Leukocyte Esterase Urine 2+ (Negative); Nitrite Urine Positive (Negative); Protein Urine Trace (Negative); Specific Gravity Urine 1.024 (1.000-1.030); Urobilinogen Urine Negative (Negative); WBC Urine Automated 21-50 /hpf (0-5); pH Urine 5.5 (4.5-7.5)
--- NOTE | 2024-06-26 18:24 | Emergency Department Note ---
Impression & Plan Altered mental status, Acute UTI ED Provider Note NAME: CHRISTIAN ROE AGE: 59 SEX: Male INFORMANT: Patient and ED PROVIDER(S): Josh Singh MD CHIEF COMPLAINT: Change in mental status PLAN: Disposition: Admitted Outpatient prescription management: none Referral: None MEDICAL DECISION MAKING: Patient present because of change in mental status. He has a history of UTI. His urinalysis was abnormal. The patient had unremarkable CBC and chemistry panel. He was given a dose of IV cefepime. Discussed the patient's status at home with his . She is concerned about her ability to take care of him given his change in this has prompted admissions in the past. Discussed admission with the patient's and she is very much in agreement. [facility] Patient was evaluated in the ER and admitted for further management. Care/management discussed with: gym manager Level of care consideration(s): After review of the information above and other included data, I feel the patient requires escalation of care to admission Triage Nursing notes: reviewed and agree them. Vital Signs: reviewed and remarkable for no significant abnormalities Additional History obtained from: Patient's Chronic Medical/Social Conditions affecting care: Dementia Prior/ Outside/ External records reviewed: none Differential Diagnosis: Infection, hypoglycemia, electrolyte abnormalities, overdose, toxicologic, cardiac sources, intracerebral event, neurologic, trauma, as well as other pathologies. Diagnostics, independently interpreted by me: ECG: none Cardiac Monitoring: Cardiac monitoring ordered by me: The patient was placed on continuous cardiac monitoring and observed. It revealed a normal sinus rhythm at 68 beats per minute without ectopy or evidence of dysrhythmia. Medical decision rules: none Imaging studies: CT scan of the abdomen pelvis reveals renal stones but no evidence of obstructive process. I refer you to the EMR for further details. HPI: 59 year old Male arrives for evaluation of change in mental status. This started to worsen this week per the and is causing him to be very difficult at home. was concerned because he has a history of UTI and this causes changes in mental status. The also notes the following associated symptoms, dark urine in his Newman bag. The patient has been given no medication for relieving factors. Current pain is rated as 0/10. denies any falls or trauma. Pt denies LOC, headache, fevers, chills, neck pain, chest pain, breathing difficulties, nausea, vomiting, abdominal pain, hematochezia, weakness, or other complaints.. PAST MEDICAL HISTORY: See Below, UTI, dementia, bacteremia PAST SURGICAL HISTORY: See Below, SOCIAL HISTORY: See Below, HOME MEDICATIONS: See Below ALLERGIES: See Below VITALS: See Below PHYSICAL EXAMINATION: GENERAL: Awake, alert, nontoxic-appearing, in no distress HENT: Normocephalic, atraumatic. Oropharynx unremarkable. EYES: Normal conjunctiva. Sclera non-icteric. PERRLA. EOMI. NECK: Inspection normal. Non-tender. Supple. No nuchal rigidity. FROM. No masses. RESPIRATORY: Clear to auscultation. No wheezes. No rales. Normal respiratory effort. CARDIAC: Normal rate. Normal rhythm. No murmurs. No rubs. Extremities warm and well perfused. Pulses equal. No JVD. GI: Soft, non-distended. No tenderness to palpation. No rebound or guarding. No masses. MUSCULOSKELETAL: Atraumatic. Chest examination reveals no tenderness. The back is symmetrical on inspection without obvious abnormality. There is no CVA tenderness to palpation. No joint edema. LOWER EXTREMITIES: Calves are equal size bilaterally and non-tender. No edema. No discoloration. NEURO: Demented sensorium. No focal sensory or motor deficits noted. SKIN: No rash or jaundice noted. PROCEDURES: none CRITICAL CARE: none OBSERVATION NOTE: none Past Med/Surg History Problem List (Updated 06/26/24 @ 18:24 by Josh Singh MD) Acute UTI (urinary tract infection) (Acute) Dislodged Newman catheter (Acute) AMS (altered mental status) (Acute) Influenza A (Acute) Gram-negative bacteremia BPH (benign prostatic hyperplasia) Dementia (Acute) Hyperlipidemia Chronic gout Catheter-associated urinary tract infection (Acute) Hypomagnesemia (Acute) Hypokalemia (Acute) Acute UTI (Acute) Sepsis (Acute) Discussion about advance care planning held with family member Palliative care by specialist Dementia with behavioral disturbance Weakness generalized CKD stage 3b, GFR 30-44 ml/min BPH (benign prostatic hyperplasia) Vascular dementia Urinary retention Chest pain (Acute) Encephalopathy Postlaminectomy syndrome of lumbosacral region Hyponatremia (Acute) Dementia (Acute) QT prolongation Delirium due to another medical condition, acute, hyperactive Agitation Alcohol abuse (Acute) AMS (altered mental status) (Acute) Major neurocognitive disorder as late effect of traumatic brain injury with behavioral disturbance Frequent falls (Acute) Altered mental status (Acute) Confusion Right ureteral stone Encounter for pre-operative examination Anemia (Acute) IRON DEFICIENT ANEMIA AND REC'D IV IRON 10/06. Baseline HGB since 2017 ~9 HLD (hyperlipidemia) Gout Back pain FROM ACCIDENT AND 7 DIFFERENT FX AND FUSION GERD (gastroesophageal reflux disease) (Acute) Anxiety History of renal stone (Acute) S/P cysto/litho/stent 10/07 History of diverticulitis of colon remote Medical History (Updated 06/26/24 @ 18:24 by Josh Singh MD) History of fracture of right ankle Hx of fracture of skull 7 FX AND HAS SOME PROBLEMS WITH MEMORY Gastric ulcer Hydronephrosis B/L per [facility] 10/12/18 Surgical History S/P ureteral stent placement History of cystoscopy W/ LITHO/BASKET STONE EXTRACTION - 10/07/18 [facility]. LMA #5. History of surgery on left wrist History of arthroscopy of right shoulder Hx of right knee surgery S/P insertion of intrathecal pump FOLLOW WITH DR LAKIA PACKER FROM [place] History of back surgery UPPER BACK FUSION, 7 DIFFERENT FRACTURES AND MULTIPLE SURGERIES AND IS FUSED multiple revisions H/O inguinal hernia repair H/O lithotripsy S/P exploratory laparotomy (Unknown) 2010 RUPTURED DIVERTICULI S/P appendectomy (Unknown) S/P cholecystectomy (Unknown) S/P gastric bypass mike en y (2010) Family History Mother DM type 2 (diabetes mellitus, type 2) Father DM type 2 (diabetes mellitus, type 2) Social History Smoking Status: Never smoker Tobacco Type: Smokeless Tobacco (Dip or Chew) Second Hand Exposure: No; Do You Dip or Chew Tobacco: No; Hx Alcohol Use: No Hx Substance Use: No Preferred Language: Trinidadian Communication Ability: Impaired Communication Ability Comment: Unable to write per spouse & reading difficulty Visual Impairment: No Limitations Industrial Security Analyst Required: No Beliefs That Will Affect Care: None Current Living Situation: Spouse Current Living Situation Comment: lives with Feels Safe at Home: Yes Assistive Devices: None Allergies Allergies Allergy/AdvReac Type Severity Reaction Status Date / Time Penicillins Allergy Severe SEE COMMENT Verified 03/09/24 03:24 erythromycin base Allergy Intermediate Itching Verified 03/09/24 03:24 indomethacin Allergy Intermediate HIVES Verified 03/09/24 03:24 neomycin Allergy Intermediate BLISTERS Verified 03/09/24 03:24 vancomycin Allergy Intermediate ITCHING--ALL Verified 03/09/24 03:24 MYCIN DRUGS fentanyl AdvReac Severe "DID NOT Verified 03/09/24 03:24 TOLERATE"-patch- "went nuts" ibuprofen AdvReac Severe Ulcer Verified 03/09/24 03:24 history ketorolac AdvReac Mild NAUSEA Verified 03/09/24 03:24 aspirin AdvReac Unknown "BLEEDING" Verified 03/09/24 03:24 S/P GASTRIC BYPASS Home Meds Home Medications Medication Instructions Recorded Confirmed allopurinol 300 mg tablet 300 mg PO DAILY 05/12/24 06/26/24 famotidine 40 mg tablet 40 mg PO HS 05/12/24 06/26/24 memantine 10 mg tablet 10 mg PO BID 05/12/24 06/26/24 olanzapine 5 mg tablet 5 mg PO HS 05/12/24 06/26/24 pantoprazole 40 mg tablet,delayed 40 mg PO BID 05/12/24 06/26/24 release tamsulosin 0.4 mg capsule 0.4 mg PO DAILY 05/12/24 06/26/24 trazodone 50 mg tablet 50 mg PO HS 05/12/24 06/26/24 acetaminophen 500 mg tablet 500 mg PO Q4H PRN Pain 06/26/24 06/26/24 finasteride 5 mg tablet 5 mg PO DAILY 06/26/24 06/26/24 morphine 30 mg tablet,extended 30 mg PO TID 06/26/24 06/26/24 release oxycodone-acetaminophen 5 mg-325 1 tab PO Q4H 06/26/24 06/26/24 mg tablet Previous Rx's Medication Instructions Recorded melatonin 3 mg tablet 3 mg PO HS sleep #30 tabs 06/07/24 mirtazapine 15 mg tablet 15 mg PO HS #30 tabs 06/07/24 quetiapine 25 mg tablet (Seroquel) 25 mg PO HS PRN agitation #10 tabs 06/07/24 Results & Data (ED) Vital Signs Vital Signs - 24 hr 06/26/24 16:12 06/26/24 17:38 06/26/24 18:01 Temperature 36.6 C Temperature Source Temporal Artery Scan Pulse Rate 106 H 67 Pulse Rate [Apical] 66 Pulse Rhythm [Apical] Regular Pulse Strength [Apical] Normal Respiratory Rate 18 14 Respiratory Effort / Characteristics Non-Labored Spontaneous Non-Labored Spontaneous Respiratory Depth Normal Normal Respiratory Pattern Regular Regular Blood Pressure 110/73 Blood Pressure [Right Arm] 114/80 Blood Pressure Mean 85 Blood Pressure Mean [Right Arm] 91 Blood Pressure Position Sitting Blood Pressure Position [Right Arm] Pulse Oximetry 96 98 Oxygen Delivery Method Room Air Room Air Sepsis Recent Fever Within 48 Hours No Sepsis New/Unexplained Change in Mental Status N/A Sepsis Action Taken by Nursing No Action Required 06/26/24 19:00 Temperature Temperature Source Pulse Rate Pulse Rate [Apical] 68 Pulse Rhythm [Apical] Regular Pulse Strength [Apical] Normal Respiratory Rate 14 Respiratory Effort / Characteristics Non-Labored Respiratory Depth Normal Respiratory Pattern Regular Blood Pressure Blood Pressure [Right Arm] 112/75 Blood Pressure Mean Blood Pressure Mean [Right Arm] 87 Blood Pressure Position Blood Pressure Position [Right Arm] Lying Pulse Oximetry 98 Oxygen Delivery Method Room Air Sepsis Recent Fever Within 48 Hours Sepsis New/Unexplained Change in Mental Status Sepsis Action Taken by Nursing Laboratory Data 06/26/24 16:19 06/26/24 16:19 Lab Results 06/26/24 Range/Units 16:19 WBC 4.40 L (4.8-10.8) K/ul RBC 4.20 L (4.70-6.10) M/uL Hgb 11.8 L (14.0-18.0) g/dl Hct 36.8 L (42.0-52.0) % MCV 87.6 (80.0-100.0) fL MCH 28.1 (25.0-34.0) pg MCHC 32.1 (32.0-36.0) g/dL RDW Std Deviation 51.8 H (36.4-46.3) fL RDW Coeff of Rogerio 16.4 H (11.5-14.5) % Plt Count 211 (130-400) K/uL MPV 9.7 (9.4-12.4) fL Immature Gran % (Auto) 0.2 % Neut % (Auto) 72.0 % Lymph % (Auto) 18.4 % [place] % (Auto) 8.4 % Eos % (Auto) 0.5 % Baso % (Auto) 0.5 % Neut # (Auto) 3.17 (1.40-6.50) K/uL Lymph # (Auto) 0.81 L (1.20-3.40) K/uL [place] # (Auto) 0.37 (0.11-0.59) K/uL Eos # (Auto) 0.02 (0.00-0.50) K/uL Baso # (Auto) 0.02 (0.00-0.20) K/uL Immature Gran # (Auto) 0.01 (0.01-0.20) K/uL Sodium 144 (136-145) mmol/L Potassium 3.7 (3.5-5.1) mmol/L Chloride 109 H (98-107) mmol/L Carbon Dioxide 30 (21-32) mmol/L Anion Gap 5 (3-11) BUN 19 (6-23) mg/dl Creatinine 1.26 (0.6-1.4) mg/dl Est Cr Clr Drug Dosing Not Reportable eGFR 64.89 BUN/Creatinine Ratio 15.1 (10-20) Glucose 110 H (70-99(Fasting)) mg/dl Calcium 9.3 (8.6-10.3) mg/dl Total Bilirubin 0.8 (0.2-1.0) mg/dl AST 18 (13-39) U/L ALT 13 (7-52) U/L Alkaline Phosphatase 134 H (34-104) U/L Total Protein 6.3 (6.0-8.3) gm/dl Albumin 4.0 (3.4-5.0) gm/dl Globulin 2.3 L (2.5-4.0) gm/dl Albumin/Globulin Ratio 1.7 (0.9-2) Urine Color [place] Urine Appearance Turbid A (Clear) Urine pH 5.5 (4.5-7.5) Ur Specific [place] 1.024 (1.000-1.030) Urine Protein Trace H (Negative) Urine Glucose (UA) Negative (Negative) Urine Ketones Trace H (Negative) Urine Blood Trace H (Negative) Urine Nitrite Positive A (Negative) Urine Bilirubin 1+ H (Negative) Urine Urobilinogen Negative (Negative) Ur Leukocyte Esterase 2+ H (Negative) Urine WBC (Auto) 21-50 H (0-5) /hpf Urine RBC (Auto) 11-20 H (0-2) /hpf U Hyaline Cast (Auto) 3-5 H (0-2) /lpf U Epithel Cells (Auto) 3-5 H (0-2) /hpf Urine Bacteria (Auto) 4+ H (None Seen) Calcium Oxalate Crystal Present A (None Prsent) Administered Medications Acetaminophen (Acetaminophen 325 Mg Tab) 325 mg PO Q4H CARL Stop: 07/26/24 21:50 Last Admin: 06/26/24 22:24 Dose: 325 mg Documented By: JESSIE Docusate Sodium (Docusate Sodium 100 Mg Cap) 100 mg PO BID CARL Stop: 07/26/24 21:50 Last Admin: 06/26/24 22:25 Dose: 100 mg Documented By: JESSIE Hydrocortisone (Hydrocortisone Hc 2.5% Crm 30gm Tube) 1 appln EXT Q12 CARL Stop: 07/26/24 20:59 Last Admin: 06/26/24 22:25 Dose: 1 appln Documented By: JESSIE Linezolid (Linezolid 600 Mg Tab) 600 mg PO BID [facility] Stop: 06/28/24 20:59 Last Admin: 06/26/24 22:25 Dose: 600 mg Documented By: JESSIE Melatonin (Melatonin 3 Mg Tab) 3 mg PO HS [facility] Stop: 07/26/24 21:50 Last Admin: 06/26/24 22:25 Dose: 3 mg Documented By: JESSIE Morphine Sulfate (Morphine Sulfate Cr 15 Mg Tabcr) 30 mg PO TID CARL Stop: 07/10/24 22:14 Last Admin: 06/26/24 22:24 Dose: 30 mg Documented By: JESSIE Oxycodone/Acetaminophen (Oxycodone/Acetaminophen 5mg/325mg Tab) 1 tab PO Q4H [facility] Stop: 07/10/24 22:14 Last Admin: 06/26/24 22:44 Dose: 1 tab Documented By: JESSIE Trazodone HCl (Trazodone Hcl 50 Mg Tab) 50 mg PO HS [facility] Stop: 07/26/24 21:50 Last Admin: 06/26/24 22:24 Dose: 50 mg Documented By: KLW Discontinued Medications Cefepime HCl (Maxipime 2000mg) 2,000 mg in 20 mls @ 5 mls/min IV NOW STA; Protocol Stop: 06/26/24 18:21 Last Admin: 06/26/24 18:30 Dose: 5 mls/min Documented By: KMO Imaging Data Radiologist's Impression: Abdomen/Pelvis CT 06/26/24 17:11 EXAM: CT abd pelvis wo con CLINICAL HISTORY: Hematuria. TECHNIQUE: Non-contrast CT of the abdomen and pelvis was performed, with the following protocol: axial images, and reconstructed coronal and sagittal images. No intravenous contrast was administered. One of the following dose reduction techniques was utilized for this exam: Automated exposure control, adjustment of the mA and/or kV according to patient size, and use of iterative reconstruction. DLP: 827.78 mGy-cm, CTDI: 15.9 mGy. COMPARISON: CT dated 04/22/2024. FINDINGS: Abdomen: Liver: Normal in size, shape, and density. No focal lesions, cysts, or masses were identified. Gallbladder and Biliary System: The gallbladder is post operative. Pancreas: Pancreatic head, body, and tail are visualized and appear normal in size and density. No pancreatic masses or calcifications were noted. Spleen: Normal in size, shape, and density. No splenic lesions or masses were identified. Kidneys and Adrenal Glands: Mild progression in size of previously described renal stones, currently of 11 mm on left side, with about 480 Hu density. Right kidney is smaller as compared to left. No renal calculi or hydronephrosis. Adrenal glands are unremarkable. Abdominal Aorta and Vessels: The abdominal aorta and major branches are patent without evidence of an aneurysm or significant atherosclerosis. Pelvis: Urinary Bladder: is empty with Enwman's bulb insitu. Prostate: Normal in size and contour. No masses or abnormal thickening. Seminal Vesicles: Normal appearance without abnormal enlargement or mass. Peritoneal and Retroperitoneal Structures: No free fluid or abnormal fluid collections were identified within the abdomen or pelvis. No lymphadenopathy was noted. Bowel: The visualized bowel loops are normal in caliber and appearance. Fecal-loaded large bowel loops are seen. Post gastric bypass surgery changes are seen in upper abdomen. Bones and Soft Tissues: Pelvic bones and soft tissues are unremarkable. No fractures or abnormal masses were identified. Spinal nerve stimulation device is seen in situ with device in left anterior abdominal wall and catheter extending intrathecally. Diffuse osteopenic and degenerative changes are seen in spine with posterior fixation screws from the L1-L3 level. Mild anterior wedge collapse of L1 vertebra. IMPRESSION: 1. Mild progression in size of previously described renal stones, currently of 11 mm on left side, with about 480 Hu density. 2. Stable other findings. Electronically signed by Adam Singer 06-26-2024 6:31 PM Discharge Plan Visit Data Chief Complaint: Urinary Symptoms Stated Complaint: ?UTI,DEMENTIA,HAS CATHETER ED Provider: Josh Singh Discharge Problem: Altered mental status, Acute UTI Patient Disposition: Admitted As Inpatient Discharge Instructions Interventions: ED Discharge Assessment Last Done: 06/26/24 20:39
[2024-06-26] MEDS: CEFEPIME 2000MG 2,000 MG/20 ML SYR IV STA (18:30)
--- NOTE | 2024-06-26 18:32 | CT Scan Report ---
EXAM: CT abd pelvis wo con CLINICAL HISTORY: Hematuria. TECHNIQUE: Non-contrast CT of the abdomen and pelvis was performed, with the following protocol: axial images, and reconstructed coronal and sagittal images. No intravenous contrast was administered. One of the following dose reduction techniques was utilized for this exam: Automated exposure control, adjustment of the mA and/or kV according to patient size, and use of iterative reconstruction. DLP: 827.78 mGy-cm, CTDI: 15.9 mGy. COMPARISON: CT dated 04/22/2024. FINDINGS: Abdomen: Liver: Normal in size, shape, and density. No focal lesions, cysts, or masses were identified. Gallbladder and Biliary System: The gallbladder is post operative. Pancreas: Pancreatic head, body, and tail are visualized and appear normal in size and density. No pancreatic masses or calcifications were noted. Spleen: Normal in size, shape, and density. No splenic lesions or masses were identified. Kidneys and Adrenal Glands: Mild progression in size of previously described renal stones, currently of 11 mm on left side, with about 480 Hu density. Right kidney is smaller as compared to left. No renal calculi or hydronephrosis. Adrenal glands are unremarkable. Abdominal Aorta and Vessels: The abdominal aorta and major branches are patent without evidence of an aneurysm or significant atherosclerosis. Pelvis: Urinary Bladder: is empty with Newman's bulb insitu. Prostate: Normal in size and contour. No masses or abnormal thickening. Seminal Vesicles: Normal appearance without abnormal enlargement or mass. Peritoneal and Retroperitoneal Structures: No free fluid or abnormal fluid collections were identified within the abdomen or pelvis. No lymphadenopathy was noted. Bowel: The visualized bowel loops are normal in caliber and appearance. Fecal-loaded large bowel loops are seen. Post gastric bypass surgery changes are seen in upper abdomen. Bones and Soft Tissues: Pelvic bones and soft tissues are unremarkable. No fractures or abnormal masses were identified. Spinal nerve stimulation device is seen in situ with device in left anterior abdominal wall and catheter extending intrathecally. Diffuse osteopenic and degenerative changes are seen in spine with posterior fixation screws from the L1-L3 level. Mild anterior wedge collapse of L1 vertebra. IMPRESSION: 1. Mild progression in size of previously described renal stones, currently of 11 mm on left side, with about 480 Hu density. 2. Stable other findings. Electronically signed by Adam Singer 06-26-2024 6:31 PM
--- NOTE | 2024-06-26 19:50 | History & Physical Report ---
Date of Service June 26, 2024 Assessment & Plan (1) Acute UTI (urinary tract infection): (2) AMS (altered mental status): (3) Dementia with behavioral disturbance: Plan Mr. Thomas is a 59-year-old male with past medical history significant for gout, dementia, history of traumatic brain injury, history of CAD, history of right upper lobe pulmonary nodule, GERD, status post gastric bypass, history of diverticulitis, CKD stage III, iron deficiency anemia, spinal fusion surgery, history of skull fracture, history of kidney stones who lives at home with his admitted for encephalopathy iso acute complicated cystitis #Acute complicated cystitis POA #Gross hematuria, suspect 2/2 infection #Chronic urinary retention with indwelling parra Prior Urine culture: Positive Pseudomonas, Enterococcus On Flomax UA with Start on Cefepime IV and Linezolid PO follow up on cultures #Moderate pharyngeal Dysphagia #Severe protein calorie malnutrition cachectic, weightloss ongoing iso dementia followed with 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 about need for soft diet Reviewed last speech note with , requesting updated recommendations #Acute metabolic encephalopathy likely iso acute cystitis #Severe dementia #History of traumatic brain injury On memantine Monitor for delirium #nonobstructive CAD #Hyperlipidemia no longer on statin #GERD #History of GI bleed On famotidine and Protonix #History of gout On allopurinol #Chronic anemia #History of gastric bypass stable #CKD stage III stable, at baseline #Chronic pain with chronic opioid use #hx of Spinal fusion Currently on morphine ER 30mg TID, scheduled Tylenol and Percocet #Hemorrhoid ansuol DVT prophylaxis scds Admit to med/surg DNR/DNI Admission and Anticipated Discharge Date Admission Date: Time spent evaluating patient, direct bedside care, chart review, placing orders, interpretation of diagnostic studies, discussion with consultants, patient, and family members, as well as other required patient management activities is 75 minutes. History of Present Illness Chief Complaint: Confusion Primary Care Provider: Charles Mayer DO Mr. Thomas is a 59-year-old male with past medical history significant for gout, dementia, history of traumatic brain injury, history of CAD, history of right upper lobe pulmonary nodule, GERD, status post gastric bypass, history of diverticulitis, CKD stage III, iron deficiency anemia, spinal fusion surgery, history of skull fracture, history of kidney stones who lives at home with his presented to [facility] ED due to confusion. present at bedside and offered majority of history as patient is alert to self. reports patient was confused on Fri and Mon--she trialed a dose of seroquel to help calm patient and his agitation but this did not work. Friday, the patient was more at this baseline and continued through the week; however, last evening she noted blood in his parra bag and worsening confusion once more prompting presentation Patient denies any overt symptoms, but vague feeling of unwellness. Denies any chest pain, abdominal pain, or other acute concerns In the ED, vitals were notable for BP of 100-110, HR of 60-80, and O2 sat of 98 on roomair . Imaging revealed UA nitrite, WBC 21-50,LE 2+, bacteria, trace blood/RBC Imaging with progressive of renal stones, no noted hydronephrosis ED interventions: cefepime Patient to be admitted to med/surg for further evaluation and management of acute encephalopathy iso acute cystitis Allergies Allergy/AdvReac Type Severity Reaction Status Date / Time Penicillins Allergy Severe SEE COMMENT Verified 03/09/24 03:24 erythromycin base Allergy Intermediate Itching Verified 03/09/24 03:24 indomethacin Allergy Intermediate HIVES Verified 03/09/24 03:24 neomycin Allergy Intermediate BLISTERS Verified 03/09/24 03:24 vancomycin Allergy Intermediate ITCHING--ALL Verified 03/09/24 03:24 MYCIN DRUGS fentanyl AdvReac Severe "DID NOT Verified 03/09/24 03:24 TOLERATE"-patch- "went nuts" ibuprofen AdvReac Severe Ulcer Verified 03/09/24 03:24 history ketorolac AdvReac Mild NAUSEA Verified 03/09/24 03:24 aspirin AdvReac Unknown "BLEEDING" Verified 03/09/24 03:24 S/P GASTRIC BYPASS Home Medications Medication Instructions Recorded Confirmed Type allopurinol 300 mg tablet 300 mg PO DAILY 05/12/24 06/26/24 History famotidine 40 mg tablet 40 mg PO HS 05/12/24 06/26/24 History memantine 10 mg tablet 10 mg PO BID 05/12/24 06/26/24 History olanzapine 5 mg tablet 5 mg PO HS 05/12/24 06/26/24 History pantoprazole 40 mg tablet,delayed 40 mg PO BID 05/12/24 06/26/24 History release tamsulosin 0.4 mg capsule 0.4 mg PO DAILY 05/12/24 06/26/24 History trazodone 50 mg tablet 50 mg PO HS 05/12/24 06/26/24 History melatonin 3 mg tablet 3 mg PO HS sleep #30 tabs 06/07/24 06/26/24 Rx mirtazapine 15 mg tablet 15 mg PO HS #30 tabs 06/07/24 06/26/24 Rx quetiapine 25 mg tablet (Seroquel) 25 mg PO HS PRN agitation #10 tabs 06/07/24 06/26/24 Rx acetaminophen 500 mg tablet 500 mg PO Q4H PRN Pain 06/26/24 06/26/24 History finasteride 5 mg tablet 5 mg PO DAILY 06/26/24 06/26/24 History morphine 30 mg tablet,extended 30 mg PO TID 06/26/24 06/26/24 History release oxycodone-acetaminophen 5 mg-325 1 tab PO Q4H 06/26/24 06/26/24 History mg tablet Past Med/Surg History Problem List (Updated 06/26/24 @ 18:24 by Josh Singh MD) Acute UTI (urinary tract infection) (Acute) Dislodged Parra catheter (Acute) AMS (altered mental status) (Acute) Influenza A (Acute) Gram-negative bacteremia BPH (benign prostatic hyperplasia) Dementia (Acute) Hyperlipidemia Chronic gout Catheter-associated urinary tract infection (Acute) Hypomagnesemia (Acute) Hypokalemia (Acute) Acute UTI (Acute) Sepsis (Acute) Discussion about advance care planning held with family member Palliative care by specialist Dementia with behavioral disturbance Weakness generalized CKD stage 3b, GFR 30-44 ml/min BPH (benign prostatic hyperplasia) Vascular dementia Urinary retention Chest pain (Acute) Encephalopathy Postlaminectomy syndrome of lumbosacral region Hyponatremia (Acute) Dementia (Acute) QT prolongation Delirium due to another medical condition, acute, hyperactive Agitation Alcohol abuse (Acute) AMS (altered mental status) (Acute) 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 Baseline HGB since 2017 ~9 HLD (hyperlipidemia) Gout Back pain FROM ACCIDENT AND 7 DIFFERENT FX AND FUSION GERD (gastroesophageal reflux disease) (Acute) Anxiety History of renal stone (Acute) S/P cysto/litho/stent 10/07 History of diverticulitis of colon remote Medical History (Updated 06/26/24 @ 18:24 by Josh Singh MD) History of fracture of right ankle Hx of fracture of skull 7 FX AND HAS SOME PROBLEMS WITH MEMORY Gastric ulcer Hydronephrosis B/L per [facility] 10/12/18 Surgical History S/P ureteral stent placement History of cystoscopy W/ LITHO/BASKET STONE EXTRACTION - 10/07/18 [facility]. LMA #5. History of surgery on left wrist History of arthroscopy of right shoulder Hx of right knee surgery S/P insertion of intrathecal pump FOLLOW WITH DR LAKIA PACKER FROM [place] History of back surgery UPPER BACK FUSION, 7 DIFFERENT FRACTURES AND MULTIPLE SURGERIES AND IS FUSED multiple revisions H/O inguinal hernia repair H/O lithotripsy S/P exploratory laparotomy (Unknown) 2010 RUPTURED DIVERTICULI S/P appendectomy (Unknown) S/P cholecystectomy (Unknown) S/P gastric bypass mike en y (2010) Family History Mother DM type 2 (diabetes mellitus, type 2) Father DM type 2 (diabetes mellitus, type 2) Social History Smoking Status: Never smoker Tobacco Type: Smokeless Tobacco (Dip or Chew) Second Hand Exposure: No; Do You Dip or Chew Tobacco: No; Hx Alcohol Use: No Hx Substance Use: No Preferred Language: Swedish Communication Ability: Impaired Communication Ability Comment: Unable to write per spouse & reading difficulty Visual Impairment: No Limitations 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 Head: (-) headache, (-) dizziness. Eye: (-) blurring of vision, (-) double vision, (-) redness. Ear: (-) hearing loss, (-) discharge, (-) vertigo Nose: (-) discharge, (-) bleeding, (-) congestion, (-) post nasal drip. Throat: (-) sore throat, (-) hoarseness of voice, (-) odynophagia. Cardiovascular: (-) chest pain, (-) palpitations, (-) syncope, (-) orthopnea, (- ) PND, (-) leg swelling. Respiratory: (-) shortness of breath, (-) cough, (-) wheezing, (-) hemoptysis. Neuro: (-) weakness in extremities, (-) numbness, (-) tingling, (-) tremor. Gastrointestinal: (-) belly pain, (-) belly distension, (-) nausea, (-) vomiting, (-) diarrhea, (-) constipation, (-) na, (-) hematemesis, (-) hematochezia, (-) bowel incontinence Genitourinary: (+) hematuria, (-) dysuria, (-) polyuria, (-) hesitancy, (-) frequency, (-) urinary incontinence. Musculoskeletal: (-) myalgia, (-) arthralgia. Skin: (-) rashes. Endocrine: (-) heat/cold intolerance. Psychiatry: (-) depression, (-) hallucination. Physical Exam Physical Exam: GENERAL APPEARANCE: AxOx1, generally well-appearing M, no acute distress. HEENT: NC, AT. MMM. EOMI, clear conjunctiva, oropharynx clear. NECK: Supple without lymphadenopathy. No stiffness or restricted ROM. HEART: Normal rate and regular rhythm, normal S1/S1, no m/r/g LUNGS: CTAB, moving air well. No crackles or wheezes are heard. ABDOMEN: Soft, nontender, nondistended with good bowel sounds heard. BACK: No CVAT, no obvious deformity. EXTREMITIES: Without cyanosis, clubbing or edema. NEUROLOGICAL: Grossly nonfocal. Alert and oriented, moving all 4 extremities. CN not formally tested but appear grossly intact Skin: Warm and dry without any rash. Results & Data Results & Data Vital Signs (Past 12 Hours) Vital Signs Temp Pulse Pulse Resp BP BP Pulse Ox 06/26/24 19:00 68 14 112/75 98 06/26/24 18:01 67 06/26/24 17:38 66 14 114/80 98 06/26/24 16:12 36.6 C 106 H 18 110/73 96 O2 Del Method 06/26/24 19:00 Room Air 06/26/24 18:01 06/26/24 17:38 Room Air 06/26/24 16:12 Room Air Laboratory Results Short CBC 06/26/24 Range/Units 16:19 WBC 4.40 L (4.8-10.8) K/ul Hgb 11.8 L (14.0-18.0) g/dl Hct 36.8 L (42.0-52.0) % Plt Count 211 (130-400) K/uL BMP 06/26/24 16:19 Sodium 144 Potassium 3.7 Chloride 109 H Carbon Dioxide 30 BUN 19 Creatinine 1.26 Glucose 110 H Calcium 9.3 Liver Function 06/26/24 Range/Units 16:19 Total Bilirubin 0.8 (0.2-1.0) mg/dl AST 18 (13-39) U/L ALT 13 (7-52) U/L Alkaline Phosphatase 134 H (34-104) U/L Albumin 4.0 (3.4-5.0) gm/dl Urine 06/26/24 Range/Units 16:19 Urine Color Wallace Urine Appearance Turbid A (Clear) Urine pH 5.5 (4.5-7.5) Ur Specific Norco 1.024 (1.000-1.030) Urine Protein Trace H (Negative) Urine Glucose (UA) Negative (Negative) Medications Administered Home Medications Medication Instructions Recorded Confirmed Last Taken allopurinol 300 mg tablet 300 mg PO DAILY 05/12/24 06/26/24 Unknown famotidine 40 mg tablet 40 mg PO HS 05/12/24 06/26/24 Unknown memantine 10 mg tablet 10 mg PO BID 05/12/24 06/26/24 Unknown olanzapine 5 mg tablet 5 mg PO HS 05/12/24 06/26/24 Unknown pantoprazole 40 mg tablet,delayed 40 mg PO BID 05/12/24 06/26/24 Unknown release tamsulosin 0.4 mg capsule 0.4 mg PO DAILY 05/12/24 06/26/24 Unknown trazodone 50 mg tablet 50 mg PO HS 05/12/24 06/26/24 Unknown melatonin 3 mg tablet 3 mg PO HS sleep #30 tabs 06/07/24 06/26/24 Unknown mirtazapine 15 mg tablet 15 mg PO HS #30 tabs 06/07/24 06/26/24 Unknown quetiapine 25 mg tablet (Seroquel) 25 mg PO HS PRN agitation #10 tabs 06/07/24 06/26/24 Unknown acetaminophen 500 mg tablet 500 mg PO Q4H PRN Pain 06/26/24 06/26/24 Unknown finasteride 5 mg tablet 5 mg PO DAILY 06/26/24 06/26/24 Unknown morphine 30 mg tablet,extended 30 mg PO TID 06/26/24 06/26/24 Unknown release oxycodone-acetaminophen 5 mg-325 1 tab PO Q4H 06/26/24 06/26/24 Unknown mg tablet
[2024-06-26] MEDS: MoRPHine SULFATE CR 15 MG TABCR PO SCH (22:24)
[2024-06-26] MEDS: ACETAMINOPHEN 325 MG TAB PO SCH (22:24)
[2024-06-26] MEDS: traZODone HCL 50 MG TAB PO SCH (22:24)
[2024-06-26] MEDS: DOCUSATE SODIUM 100 MG CAP PO SCH (22:25)
[2024-06-26] MEDS: HYDROCORTISONE HC 2.5% CRM 30GM TUBE EXT SCH (22:25)
[2024-06-26] MEDS: MELATONIN 3 MG TAB PO SCH (22:25)
[2024-06-26] MEDS: LINEZOLID 600 MG TAB PO SCH (22:25)
[2024-06-26] MEDS: PANTOprazole 40 MG TAB PO SCH (22:44)
[2024-06-26] MEDS: oxyCODONE/ACETAMINOPHEN 5mg/325mg TAB PO SCH (22:44)
[2024-06-26] MEDS: MEMANTINE HCL 10 MG TAB PO SCH (22:45)
[2024-06-26] MEDS: QUEtiapine FUMARATE 25 MG TABLET PO PRN (22:45)
[2024-06-26] MEDS: OLANZapine 5 MG TABLET PO SCH (22:45)
[2024-06-26] MEDS: FAMOTIDINE 40 MG TABLET PO SCH (22:46)
[2024-06-26] MEDS: MIRTAZAPINE TAB 15 MG TAB PO SCH (23:20)
[2024-06-27] MEDS: CEFEPIME 2000MG 2,000 MG/20 ML SYR IV SCH (02:43)
[2024-06-27 07:06] LABS: Basophils # (auto) 0.02 K/uL (0.00-0.20); Basophils % (auto) 0.5 %; Eosinophils % (auto) 2.4 %; Hematocrit (blood only) 32.6 % (42.0-52.0); Hemoglobin 10.5 g/dl (14.0-18.0); Lymphocytes # (auto) 1.93 K/uL (1.20-3.40); Lymphocytes % (auto) 46.4 %; Mean Corpuscular Hemoglobin 28.3 pg (25.0-34.0); Mean Corpuscular Hgb Conc 32.2 g/dL (32.0-36.0); Mean Corpuscular Volume 87.9 fL (80.0-100.0); Mean Platelet Volume 9.9 fL (9.4-12.4); Monocytes # (auto) 0.39 K/uL (0.11-0.59); Monocytes % (auto) 9.4 %; Neutrophils # (auto) 1.72 K/uL (1.40-6.50); Neutrophils % (auto) 41.3 %; Platelet Count 186 K/uL (130-400); RDW Coefficient of Variation 16.7 % (11.5-14.5); RDW Standard Deviation 53.2 fL (36.4-46.3); Red Blood Count 3.71 M/uL (4.70-6.10); White Blood Count 4.16 K/ul (4.8-10.8)
[2024-06-27 07:30] LABS: BUN Creatinine Ratio 20.2 (10-20); Calcium 8.7 mg/dl (8.6-10.3); Creatinine Clr Calc Pharmacy 74.5 ml/min
[2024-06-27] MEDS: TAMSULOSIN HCL 0.4 MG CAP PO SCH (09:31)
[2024-06-27] MEDS: FINASTERIDE 5 MG TAB PO SCH (09:31)
[2024-06-27] MEDS: allopurinoL 300 MG TAB PO SCH (09:31)
--- NOTE | 2024-06-27 10:55 | Hospitalist Progress Note ---
Date of Service June 27, 2024 Assessment & Plan (1) Acute UTI (urinary tract infection): (2) AMS (altered mental status): (3) Dementia with behavioral disturbance: Plan Mr. Thomas is a 59-year-old male with past medical history significant for gout, dementia, history of traumatic brain injury, history of CAD, history of right upper lobe pulmonary nodule, GERD, status post gastric bypass, history of diverticulitis, CKD stage III, iron deficiency anemia, spinal fusion surgery, history of skull fracture, history of kidney stones who lives at home with his admitted for encephalopathy in setting of acute complicated cystitis Acute complicated cystitis POA Gross hematuria, suspect 2/2 infection Chronic urinary retention with indwelling parra Prior Urine culture: Positive Pseudomonas, Enterococcus On Flomax UA with concern for infection, urine cx repeated Continue Cefepime IV and Linezolid PO follow up on culture Moderate pharyngeal Dysphagia Severe protein calorie malnutrition cachectic, weightloss ongoing in setting of dementia followed with 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 about need for soft diet Reviewed last speech note with , requesting updated recommendations Acute metabolic encephalopathy likely in setting of acute cystitis Severe dementia History of traumatic brain injury On memantine Monitor for delirium nonobstructive CAD Hyperlipidemia no longer on statin GERD History of GI bleed On famotidine and Protonix History of gout On allopurinol Chronic anemia History of gastric bypass stable CKD stage III stable, at baseline Chronic pain with chronic opioid use hx of Spinal fusion Currently on morphine ER 30mg TID, scheduled Tylenol and Percocet Hemorrhoid ansuol DVT prophylaxis scds Admission and Anticipated Discharge Date Admission Date: June 26, 2024 Subjective pt was seen sitting up in bed AAOx2 Denied acute concerns Review of Systems Review of Systems: All systems reviewed & are unremarkable except as noted in Subjective Physical Exam Physical Exam: General: Alert, oriented. No acute distress Skin: No noted rashes or bruises HEENT: NC/AT CV: RRR Resp: Breath sounds clear bilaterally, no increased effort of breathing Abdomen: Soft, nontender, nondistended Extremities: No edema in lower extremities bilaterally. Results & Data Results & Data Vital Signs (Past 12 Hours) Vital Signs Pulse Resp BP Pulse Ox O2 Del Method 06/27/24 07:41 57 L 18 121/79 100 Room Air
[2024-06-28 06:33] LABS: Basophils # (auto) 0.03 K/uL (0.00-0.20); Basophils % (auto) 0.6 %; Eosinophils % (auto) 2.1 %; Hematocrit (blood only) 34.5 % (42.0-52.0); Hemoglobin 11.1 g/dl (14.0-18.0); Immature Granulocytes # (auto) 0.01 K/uL (0.01-0.20); Immature Granulocytes % (auto) 0.2 %; Lymphocytes # (auto) 1.74 K/uL (1.20-3.40); Lymphocytes % (auto) 37.2 %; Mean Corpuscular Hemoglobin 28.5 pg (25.0-34.0); Mean Corpuscular Hgb Conc 32.2 g/dL (32.0-36.0); Mean Corpuscular Volume 88.7 fL (80.0-100.0); Mean Platelet Volume 9.5 fL (9.4-12.4); Monocytes % (auto) 8.5 %; Neutrophils % (auto) 51.4 %; Platelet Count 205 K/uL (130-400); RDW Coefficient of Variation 16.7 % (11.5-14.5); Red Blood Count 3.89 M/uL (4.70-6.10); White Blood Count 4.68 K/ul (4.8-10.8)
[2024-06-28 07:04] LABS: Albumin Globulin Ratio 1.8 (0.9-2); Albumin Level 3.7 gm/dl (3.4-5.0); BUN Creatinine Ratio 13.4 (10-20); Bilirubin,Total 0.8 mg/dl (0.2-1.0); Creatinine Clr Calc Pharmacy 57.2 ml/min; Globulin 2.1 gm/dl (2.5-4.0); Magnesium 1.7 mg/dl (1.7-2.4); Phosphorus 3.5 mg/dl (2.5-4.9); Potassium 3.8 mmol/L (3.5-5.1); Total Protein 5.8 gm/dl (6.0-8.3)
[2024-06-28] MEDS: SODIUM CHLORIDE 0.9% 1,000 ML IV SCH (10:22)
--- NOTE | 2024-06-28 14:09 | Hospitalist Progress Note ---
Date of Service June 28, 2024 Assessment & Plan (1) Acute UTI (urinary tract infection): (2) AMS (altered mental status): (3) Dementia with behavioral disturbance: Plan Mr. Thomas is a 59-year-old male with past medical history significant for gout, dementia, history of traumatic brain injury, history of CAD, history of right upper lobe pulmonary nodule, GERD, status post gastric bypass, history of diverticulitis, CKD stage III, iron deficiency anemia, spinal fusion surgery, history of skull fracture, history of kidney stones who lives at home with his admitted for encephalopathy in setting of acute complicated cystitis Acute complicated cystitis POA Gross hematuria, suspect 2/2 infection Chronic urinary retention with indwelling parra Prior Urine culture: Positive Pseudomonas, Enterococcus On Flomax UA with concern for infection, urine cx repeated Continue Cefepime IV and Linezolid PO follow up on culture Moderate pharyngeal Dysphagia Severe protein calorie malnutrition cachectic, weightloss ongoing in setting of dementia followed with 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 about need for soft diet Reviewed last speech note with , requesting updated recommendations Acute metabolic encephalopathy likely in setting of acute cystitis Severe dementia History of traumatic brain injury On memantine Monitor for delirium nonobstructive CAD Hyperlipidemia no longer on statin GERD History of GI bleed On famotidine and Protonix History of gout On allopurinol Chronic anemia History of gastric bypass stable CKD stage III stable, at baseline Chronic pain with chronic opioid use hx of Spinal fusion Currently on morphine ER 30mg TID, scheduled Tylenol and Percocet Hemorrhoid ansuol DVT prophylaxis scds Admission and Anticipated Discharge Date Admission Date: June 26, 2024 Subjective pt was seen sitting up in bed eating Denied acute concerns Review of Systems Review of Systems: All systems reviewed & are unremarkable except as noted in Subjective Physical Exam Physical Exam: General: Alert, oriented. No acute distress HEENT: NC/AT CV: RRR Resp: Breath sounds clear bilaterally, no increased effort of breathing Abdomen: Soft, nontender, nondistended Extremities: No edema in lower extremities bilaterally. Results & Data Results & Data Vital Signs (Past 12 Hours) Vital Signs Temp Pulse Resp BP BP Pulse Ox O2 Del Method 06/28/24 13:36 36.3 C L 66 16 116/78 100 Room Air 06/28/24 08:18 36.8 C 70 16 126/58 L 100 Room Air
[2024-06-29 08:53] LABS: Basophils # (auto) 0.04 K/uL (0.00-0.20); Basophils % (auto) 0.9 %; Eosinophils # (auto) 0.12 K/uL (0.00-0.50); Eosinophils % (auto) 2.8 %; Hematocrit (blood only) 33.9 % (42.0-52.0); Immature Granulocytes # (auto) 0.01 K/uL (0.01-0.20); Immature Granulocytes % (auto) 0.2 %; Lymphocytes # (auto) 1.66 K/uL (1.20-3.40); Lymphocytes % (auto) 39.3 %; Mean Corpuscular Hemoglobin 28.7 pg (25.0-34.0); Mean Corpuscular Hgb Conc 32.4 g/dL (32.0-36.0); Mean Corpuscular Volume 88.5 fL (80.0-100.0); Mean Platelet Volume 9.6 fL (9.4-12.4); Monocytes # (auto) 0.36 K/uL (0.11-0.59); Monocytes % (auto) 8.5 %; Neutrophils # (auto) 2.03 K/uL (1.40-6.50); Neutrophils % (auto) 48.3 %; Platelet Count 182 K/uL (130-400); RDW Coefficient of Variation 17.1 % (11.5-14.5); RDW Standard Deviation 55.1 fL (36.4-46.3); Red Blood Count 3.83 M/uL (4.70-6.10); White Blood Count 4.22 K/ul (4.8-10.8)
[2024-06-29 09:28] LABS: Albumin Level 3.5 gm/dl (3.4-5.0); Bilirubin,Total 0.9 mg/dl (0.2-1.0); Calcium 8.9 mg/dl (8.6-10.3); Magnesium 1.7 mg/dl (1.7-2.4); Potassium 4.1 mmol/L (3.5-5.1)
[2024-06-29 09:34] LABS: Albumin Globulin Ratio 1.8 (0.9-2); BUN Creatinine Ratio 11.3 (10-20); Phosphorus 3.3 mg/dl (2.5-4.9); Total Protein 5.5 gm/dl (6.0-8.3)
--- NOTE | 2024-06-29 12:02 | Hospitalist Progress Note ---
Date of Service June 29, 2024 Assessment & Plan (1) Acute UTI (urinary tract infection): (2) AMS (altered mental status): (3) Dementia with behavioral disturbance: Plan Mr. Thomas is a 59-year-old male with past medical history significant for gout, dementia, history of traumatic brain injury, history of CAD, history of right upper lobe pulmonary nodule, GERD, status post gastric bypass, history of diverticulitis, CKD stage III, iron deficiency anemia, spinal fusion surgery, history of skull fracture, history of kidney stones who lives at home with his admitted for encephalopathy in setting of acute complicated cystitis Acute complicated cystitis POA Gross hematuria, suspect 2/2 infection Chronic urinary retention with indwelling parra Prior Urine culture: Positive Pseudomonas, Enterococcus On Flomax UA with concern for infection, urine cx repeated Continue Cefepime IV and Linezolid PO follow up on culture Moderate pharyngeal Dysphagia Severe protein calorie malnutrition cachectic, weightloss ongoing in setting of dementia 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 to about need for soft diet Acute metabolic encephalopathy likely in setting of acute cystitis Severe dementia History of traumatic brain injury On memantine Monitor for delirium nonobstructive CAD Hyperlipidemia no longer on statin GERD History of GI bleed On famotidine and Protonix History of gout On allopurinol Chronic anemia History of gastric bypass stable CKD stage III stable, at baseline Chronic pain with chronic opioid use hx of Spinal fusion Currently on morphine ER 30mg TID, scheduled Tylenol and Percocet Hemorrhoid ansuol DVT prophylaxis scds Admission and Anticipated Discharge Date Admission Date: June 26, 2024 Subjective pt was seen sitting up in bed Denied acute concerns Review of Systems Review of Systems: All systems reviewed & are unremarkable except as noted in Subjective Physical Exam Physical Exam: General: Alert, oriented. No acute distress HEENT: NC/AT CV: RRR Resp: Breath sounds clear bilaterally, no increased effort of breathing Abdomen: Soft, nontender, nondistended Extremities: No edema in lower extremities bilaterally. Results & Data Results & Data Vital Signs (Past 12 Hours) Vital Signs Temp Pulse Resp BP Pulse Ox O2 Del Method 06/29/24 08:21 36.4 C L 60 17 126/77 97 Room Air
[2024-06-29] MEDS: SODIUM CHLORIDE 0.9% 1,000 ML IV SCH (18:36)
[2024-06-30 07:49] LABS: Basophils # (auto) 0.03 K/uL (0.00-0.20); Basophils % (auto) 0.6 %; Eosinophils % (auto) 1.9 %; Hematocrit (blood only) 34.7 % (42.0-52.0); Hemoglobin 11.1 g/dl (14.0-18.0); Immature Granulocytes # (auto) 0.03 K/uL (0.01-0.20); Immature Granulocytes % (auto) 0.6 %; Lymphocytes # (auto) 1.92 K/uL (1.20-3.40); Lymphocytes % (auto) 35.8 %; Mean Corpuscular Hemoglobin 28.5 pg (25.0-34.0); Mean Corpuscular Volume 89.2 fL (80.0-100.0); Mean Platelet Volume 9.8 fL (9.4-12.4); Monocytes # (auto) 0.42 K/uL (0.11-0.59); Monocytes % (auto) 7.8 %; Neutrophils # (auto) 2.87 K/uL (1.40-6.50); Neutrophils % (auto) 53.3 %; Platelet Count 178 K/uL (130-400); RDW Coefficient of Variation 16.9 % (11.5-14.5); RDW Standard Deviation 54.3 fL (36.4-46.3); Red Blood Count 3.89 M/uL (4.70-6.10); White Blood Count 5.37 K/ul (4.8-10.8)
[2024-06-30 08:18] LABS: Albumin Globulin Ratio 1.7 (0.9-2); Albumin Level 3.6 gm/dl (3.4-5.0); BUN Creatinine Ratio 15.4 (10-20); Bilirubin,Total 0.9 mg/dl (0.2-1.0); Calcium 8.8 mg/dl (8.6-10.3); Creatinine Clr Calc Pharmacy 78.1 ml/min; Globulin 2.1 gm/dl (2.5-4.0); Magnesium 1.8 mg/dl (1.7-2.4); Phosphorus 3.3 mg/dl (2.5-4.9); Potassium 3.8 mmol/L (3.5-5.1); Total Protein 5.7 gm/dl (6.0-8.3)
--- NOTE | 2024-06-30 15:49 | Hospitalist Progress Note ---
Date of Service June 30, 2024 Assessment & Plan (1) Acute UTI (urinary tract infection): (2) AMS (altered mental status): (3) Dementia with behavioral disturbance: Plan Mr. Thomas is a 59-year-old male with past medical history significant for gout, dementia, history of traumatic brain injury, history of CAD, history of right upper lobe pulmonary nodule, GERD, status post gastric bypass, history of diverticulitis, CKD stage III, iron deficiency anemia, spinal fusion surgery, history of skull fracture, history of kidney stones who lives at home with his admitted for encephalopathy in setting of acute complicated cystitis Acute complicated cystitis POA Gross hematuria, suspect 2/2 infection Chronic urinary retention with indwelling parra Prior Urine culture: Positive Pseudomonas, Enterococcus On Flomax UA with concern for infection, Urine cultures show more than 3 bacteria Repeat urine culture does not show any growth Hematuria resolved on 06/30 Will continue antibiotic for 2 more days Moderate pharyngeal Dysphagia Severe protein calorie malnutrition cachectic, weightloss ongoing in setting of dementia followed with 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 about need for soft diet Acute metabolic encephalopathy likely in setting of acute cystitis Severe dementia History of traumatic brain injury On memantine Monitor for delirium nonobstructive CAD Hyperlipidemia no longer on statin GERD History of GI bleed On famotidine and Protonix,continue History of gout On allopurinol,continue Chronic anemia History of gastric bypass stable CKD stage III stable, at baseline Chronic pain with chronic opioid use hx of Spinal fusion Currently on morphine ER 30mg TID, scheduled Tylenol and Percocet Hemorrhoid ansuol DVT prophylaxis scds Please note the above document was generated using voice recognition software. It may contain grammatical, syntax or spelling errors. Any formal questions or concerns about the content, text or information contained within the body of this dictation should be directly addressed to the provider for clarification Admission and Anticipated Discharge Date Admission Date: June 26, 2024 Subjective Patient seen and examined at bedside. He is comfortable; not in distress. He denies any fever, chills, chest pain or shortness of breath No significant events overnight Review of Systems Review of Systems: All systems reviewed & are unremarkable except as noted in Subjective Physical Exam Physical Exam: Constitutional: WD/WN, vitals as above, NAD, sitting up in bed, pleasant, conversing easily Respiratory: normal respiratory effort, lungs clear to auscultation, no wheeze, rales, rhonchi. Normal insp/exp effort, no accessory muscle use Cardiovascular: RRR, no murmur, no edema Vessels: no JVD or carotid bruit Chest: normal inspection of chest Abdomen: normal bowel sounds, soft, nontender, no hepatosplenomegaly Musculoskeletal: no cyanosis or clubbing, extremities motor strength 5/5 Skin: no rashes, warm and dry normal turgor Neurologic: PERRL, EOMI, accommodation nl, no face palsy, no dysarthria CN's II- XI intact bilaterally and moves all extremities Results & Data Results & Data Vital Signs (Past 12 Hours) Vital Signs Temp Pulse Resp BP Pulse Ox O2 Del Method 06/30/24 15:40 36.7 C 68 18 118/75 100 Room Air 06/30/24 07:31 36.4 C L 52 L 18 124/81 99 Room Air
--- NOTE | 2024-07-01 13:27 | Hospitalist Progress Note ---
Date of Service July 01, 2024 Assessment & Plan (1) Acute UTI (urinary tract infection): (2) AMS (altered mental status): (3) Dementia with behavioral disturbance: Plan Mr. Thomas is a 59-year-old male with past medical history significant for gout, dementia, history of traumatic brain injury, history of CAD, history of right upper lobe pulmonary nodule, GERD, status post gastric bypass, history of diverticulitis, CKD stage III, iron deficiency anemia, spinal fusion surgery, history of skull fracture, history of kidney stones who lives at home with his admitted for encephalopathy in setting of acute complicated cystitis Acute complicated cystitis POA Gross hematuria, suspect 2/2 infection Chronic urinary retention with indwelling parra Prior Urine culture: Positive Pseudomonas, Enterococcus On Flomax UA with concern for infection, Urine cultures show more than 3 bacteria Repeat urine culture does not show any growth Hematuria resolved on 06/30 Will continue antibiotic for 1 more days Moderate pharyngeal Dysphagia Severe protein calorie malnutrition cachectic, weightloss ongoing in setting of dementia 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 spoke to about need for soft diet Acute metabolic encephalopathy likely in setting of acute cystitis Severe dementia History of traumatic brain injury On memantine Monitor for delirium nonobstructive CAD Hyperlipidemia no longer on statin GERD History of GI bleed On famotidine and Protonix,continue History of gout On allopurinol,continue Chronic anemia History of gastric bypass stable CKD stage III stable, at baseline Chronic pain with chronic opioid use hx of Spinal fusion Currently on morphine ER 30mg TID, scheduled Tylenol and Percocet Hemorrhoid ansuol DVT prophylaxis scds Dispositionpatient is stable for transfer to rehab; case management on board. Please note the above document was generated using voice recognition software. It may contain grammatical, syntax or spelling errors. Any formal questions or concerns about the content, text or information contained within the body of this dictation should be directly addressed to the provider for clarification Admission and Anticipated Discharge Date Admission Date: June 26, 2024 Subjective Patient seen and examined at bedside. Comfortable; not in distress. Denies fever, chills, chest pain, shortness of breath, abdominal pain or urinary symptoms. No significant overnight events Review of Systems Review of Systems: All systems reviewed & are unremarkable except as noted in Subjective Physical Exam Physical Exam: Constitutional: WD/WN, vitals as above, NAD, sitting up in bed, pleasant, conversing easily Respiratory: normal respiratory effort, lungs clear to auscultation, no wheeze, rales, rhonchi. Normal insp/exp effort, no accessory muscle use Cardiovascular: RRR, no murmur, no edema Vessels: no JVD or carotid bruit Chest: normal inspection of chest Abdomen: normal bowel sounds, soft, nontender, no hepatosplenomegaly Musculoskeletal: no cyanosis or clubbing, extremities motor strength 5/5 Skin: no rashes, warm and dry normal turgor Neurologic: PERRL, EOMI, accommodation nl, no face palsy, no dysarthria CN's II- XI intact bilaterally and moves all extremities Results & Data Results & Data Vital Signs (Past 12 Hours) Vital Signs Temp Pulse Resp BP Pulse Ox O2 Del Method 07/01/24 07:35 36.4 C L 59 L 14 131/86 99 Room Air
[2024-07-02 08:30] VITALS: BP 135/80; PULSE 69; RESP 18; TEMP 97.7; O2SAT 96
--- NOTE | 2024-07-02 16:45 | Discharge Summary ---
Date of Service July 02, 2024 Admission HPI Per Admitting Provider Mr. Thomas is a 59-year-old male with past medical history significant for gout, dementia, history of traumatic brain injury, history of CAD, history of right upper lobe pulmonary nodule, GERD, status post gastric bypass, history of diverticulitis, CKD stage III, iron deficiency anemia, spinal fusion surgery, history of skull fracture, history of kidney stones who lives at home with his presented to [facility] ED due to confusion. present at bedside and offered majority of history as patient is alert to self. reports patient was confused on Fri and Fri--she trialed a dose of seroquel to help calm patient and his agitation but this did not work. Friday, the patient was more at this baseline and continued through the week; however, last evening she noted blood in his parra bag and worsening confusion once more prompting presentation Patient denies any overt symptoms, but vague feeling of unwellness. Denies any chest pain, abdominal pain, or other acute concerns In the ED, vitals were notable for BP of 100-110, HR of 60-80, and O2 sat of 98 on roomair . Imaging revealed UA nitrite, WBC 21-50,LE 2+, bacteria, trace blood/RBC Imaging with progressive of renal stones, no noted hydronephrosis ED interventions: cefepime Patient to be admitted to med/surg for further evaluation and management of acute encephalopathy iso acute cystitis Admission Exam Per Admitting Provider GENERAL APPEARANCE: AxOx1, generally well-appearing M, no acute distress. HEENT: NC, AT. MMM. EOMI, clear conjunctiva, oropharynx clear. NECK: Supple without lymphadenopathy. No stiffness or restricted ROM. HEART: Normal rate and regular rhythm, normal S1/S1, no m/r/g LUNGS: CTAB, moving air well. No crackles or wheezes are heard. ABDOMEN: Soft, nontender, nondistended with good bowel sounds heard. BACK: No CVAT, no obvious deformity. EXTREMITIES: Without cyanosis, clubbing or edema. NEUROLOGICAL: Grossly nonfocal. Alert and oriented, moving all 4 extremities. CN not formally tested but appear grossly intact Skin: Warm and dry without any rash. Principal Diagnosis Acute complicated cystitis POA Gross hematuria, suspect 2/2 infection Chronic urinary retention with indwelling parra Discharge Exam Constitutional: WD/WN, vitals as above, NAD, sitting up in bed, pleasant, conversing easily Respiratory: normal respiratory effort, lungs clear to auscultation, no wheeze, rales, rhonchi. Normal insp/exp effort, no accessory muscle use Cardiovascular: RRR, no murmur, no edema Vessels: no JVD or carotid bruit Chest: normal inspection of chest Abdomen: normal bowel sounds, soft, nontender, no hepatosplenomegaly Musculoskeletal: no cyanosis or clubbing, extremities motor strength 5/5 Skin: no rashes, warm and dry normal turgor Neurologic: PERRL, EOMI, accommodation nl, no face palsy, no dysarthria CN's II- XI intact bilaterally and moves all extremities Discharge Data Allergies Allergy/AdvReac Type Severity Reaction Status Date / Time Penicillins Allergy Severe SEE COMMENT Verified 03/09/24 03:24 erythromycin base Allergy Intermediate Itching Verified 03/09/24 03:24 indomethacin Allergy Intermediate HIVES Verified 03/09/24 03:24 neomycin Allergy Intermediate BLISTERS Verified 03/09/24 03:24 vancomycin Allergy Intermediate ITCHING--ALL Verified 03/09/24 03:24 MYCIN DRUGS fentanyl AdvReac Severe "DID NOT Verified 03/09/24 03:24 TOLERATE"-patch- "went nuts" ibuprofen AdvReac Severe Ulcer Verified 03/09/24 03:24 history ketorolac AdvReac Mild NAUSEA Verified 03/09/24 03:24 aspirin AdvReac Unknown "BLEEDING" Verified 03/09/24 03:24 S/P GASTRIC BYPASS Consultations 06/26/24 18:50 ED Decision to Admit Stat Ordered Studies 06/26/24 17:11 CT Abd and Pelvis [CT abd pelvis wo con] Stat Hospital Course (1) Acute UTI (urinary tract infection): (2) AMS (altered mental status): (3) Dementia with behavioral disturbance: Plan Mr. Thomas is a 59-year-old male with past medical history significant for gout, dementia, history of traumatic brain injury, history of CAD, history of right upper lobe pulmonary nodule, GERD, status post gastric bypass, history of diverticulitis, CKD stage III, iron deficiency anemia, spinal fusion surgery, history of skull fracture, history of kidney stones who lives at home with his admitted for encephalopathy in setting of acute complicated cystitis Acute complicated cystitis POA Gross hematuria, suspect 2/2 infection Chronic urinary retention with indwelling parra During hospitalization, patient was treated for suspected UTI with cefepime and linezolid with improvement in hematuria. Initial urine culture grew more than 3 bacteria. Repeat urine culture did not show any growth. Hematuria resolved after couple of days of antibiotics. Parra catheter was exchanged prior to discharge. Patient was discharged home with his . Moderate pharyngeal Dysphagia Severe protein calorie malnutrition cachectic, weightloss ongoing in setting of dementia followed with op palliative Acute metabolic encephalopathy likely in setting of acute cystitis Severe dementia History of traumatic brain injury On memantine nonobstructive CAD Hyperlipidemia no longer on statin GERD History of GI bleed On famotidine and Protonix,continue History of gout On allopurinol,continue Chronic anemia History of gastric bypass stable CKD stage III stable, at baseline Chronic pain with chronic opioid use hx of Spinal fusion Currently on morphine ER 30mg TID, scheduled Tylenol and Percocet Please note the above document was generated using voice recognition software. It may contain grammatical, syntax or spelling errors. Any formal questions or concerns about the content, text or information contained within the body of this dictation should be directly addressed to the provider for clarification Total Time Total Time Spent Total Time Spent (In Minutes): 34 Total Time Includes: Examination of the Patient, Discharge Planning, Medication Reconciliation, Communication With Other Providers and Other Discharge Plan Discharge Items Patient Disposition: Home - Self-Care Reason For Visit: UTI Discharge Diagnosis: Acute complicated cystitis POA Gross hematuria, suspect 2/2 infection Chronic urinary retention with indwelling parra Activity: Resume your previous activity Non-emergency contact: Primary Care Provider Call non-emergency contact if: you have any medication questions and your symptoms worsen Follow-up/Referrals: Charles Mayer DO [Primary Care Provider] - 07/08/24 2:20 pm Diet: Regular Addtl Attending Provider Instructions: You were admitted to the hospital due to UTI. You are treated with antibiotic during the hospitalization. Please exchange your catheter every 4 weeks. Pending Studies at Discharge: No Stand-Alone Forms: My [employer], Smoking Cessation Medications and DC Order Prescriptions: Continued trazodone 50 mg tablet 50 mg PO HS famotidine 40 mg tablet 40 mg PO HS olanzapine 5 mg tablet 5 mg PO HS tamsulosin 0.4 mg capsule 0.4 mg PO DAILY pantoprazole 40 mg tablet,delayed release (DR/EC) 40 mg PO BID allopurinol 300 mg tablet 300 mg PO DAILY memantine 10 mg tablet 10 mg PO BID morphine 30 mg tablet extended release 30 mg PO TID acetaminophen 500 mg Tablet 500 mg PO Q4H PRN (Reason: Pain) oxycodone-acetaminophen 5-325 mg tablet 1 tab PO Q4H finasteride 5 mg tablet 5 mg PO DAILY melatonin 3 mg Tablet 3 mg PO HS Qty: 30 0RF mirtazapine 15 mg Tablet 15 mg PO HS Qty: 30 0RF quetiapine [Seroquel] 25 mg tablet 25 mg PO HS PRN (Reason: agitation) Qty: 10 0RF Discharge Orders: Discharge Order (Routine); Ordered 07/02/24 Ordered By: Alfonzo Cruz Admission Data Admit Date/Time: 06/26/24 19:06 Attending Provider: Alfonzo Cruz Admit Provider: Kristen Hernandez Primary Care Provider: Charles Mayer Other Providers: Kristen Hernandez; [place]; [facility] Other Interventions: Discharge Summary Assessment (RN) Last Done: 07/02/24 10:33
== END 2024-07-02 13:51 | disposition hospice, home (50) | DRG 689 ==
LOC: ED 16:01 → SUATTDRO 19:06 → 3W 19:06